=== PATIENT | female | born 1980 | race Caucasian/White ===

== ENCOUNTER 2019-01-06 19:20 | Emergency (ER) | payer BC, SELFPAY ==
[2019-01-06 19:22] VITALS: BP 159/97; PULSE 95; RESP 17; TEMP 37; O2SAT 94; BMI 47.2
--- NOTE | 2019-01-06 20:18 | ED.DCSUM_ITS ---
- ER Visit Summary Date of Service: 01/06/19 Chief Complaint: Right leg pain History of Present Illness: The patient is a 38 F who presents with right leg pain. The pain has been going on for over a month. It seems to be getting worse and she has noted some swelling and redness as well as varicose veins. She was concerned for blood clot. She has no history of DVT or PE. No other associated symptoms. Physical Examination: Afebrile and vital signs unremarkable. Right leg shows erythema and very mild edema just proximal to the knee over the medial thigh. Knee is unremarkable with good range of motion and no laxity. She is neurovascular intact distally. Test Results: Duplex ultrasound pending. Emergency Department Course and Treatment: Ultrasound is negative. Patient may take anti-inflammatories for pain and swelling. Follow-up with primary care for recheck. Return for any new or worsening issues. Treatment Plan: As above Disposition: Discharge Impression: 1. Right leg pain This note was generated with Spiration dictation software. It may contain incorrect words, spelling, and punctuation that were not noted in review of the chart prior to signing ED Disposition - Plan for ED Patient: Referrals: Care Physician,No Primary [NON-STAFF] -
--- NOTE | 2019-01-06 20:20 | US_ITS ---
STUDY: VENOUS DOPPLER ULTRASOUND - RIGHT LOWER EXTREMITY REASON FOR EXAM: Female, 38 years old. Redness and pain within the right knee for one month. TECHNIQUE: Ultrasound evaluation of the deep vein system to include greenberg-scale imaging and compression was performed. Greenberg-scale imaging and Doppler sonographic evaluation, including duplex spectral analysis and qualitative color flow sonography, was performed. COMPARISON: None. FINDINGS: Common Femoral Vein: Normal compression, spontaneity and augmentation. Normal color Doppler. Common Femoral Vein/Greater Saphenous Junction: There is demonstrated compression without internal echoes. Femoral Proximal: There is demonstrated compression without internal echoes. Femoral Middle: Normal compression, spontaneity and augmentation. Normal color Doppler. Femoral Distal: There is demonstrated compression without internal echoes. Popliteal Vein: Normal compression, spontaneity and augmentation. Normal color Doppler. Posterior Tibial Vein: There is demonstrated compression without internal echoes. Peroneal Vein: There is demonstrated compression without internal echoes. US/Venous Duplex Imag/Limited/Uni IMPRESSION: No evidence of deep venous thrombosis on examination. Electronically Signed: Carlos Gautam DO at 21:30 EDT , Service support ,
--- NOTE | 2019-01-06 22:06 | ED.DEP ---
ED Disposition - Plan for ED Patient: Instructions: ED Contusion Soft Tissue Referrals: Care Physician,No Primary [NON-STAFF] -
[2019-01-06 22:13] VITALS: BP 144/76; PULSE 76; RESP 18; O2SAT 100
== END 2019-01-06 22:14 | disposition home or self-care (01) ==
LOC: ED 20:25
PROVIDERS: Emergency Provider Emergency Medicine; Family Provider Physician Assistant; PCP Physician Assistant
DX: M79.661 Pain in right lower leg (principal); M79.89 Other specified soft tissue disorders
CPT/HCPCS: 93971; 99282

== ENCOUNTER 2019-11-30 14:54 | Emergency (ER) | payer BC, SELFPAY ==
[2019-11-30 14:59] VITALS: BP 116/75; PULSE 119; RESP 20; TEMP 36.6; O2SAT 99; BMI 45.8
--- NOTE | 2019-11-30 15:09 | EKG12_ITS ---
Test Reason : CP SOB Blood Pressure : / mmHG Vent. Rate : 106 BPM Atrial Rate : 106 BPM P-R Int : 164 ms QRS Dur : 132 ms QT Int : 376 ms P-R-T Axes : 042 023 188 degrees QTc Int : 499 ms Sinus tachycardia with Premature atrial complexes Left bundle branch block Abnormal ECG Confirmed by DAGO ZHOU, SHANNON ([id number]), editor producer VICK STOCKTON ([id number]) on 12/05/2019 8:44:07 AM Referred By: JERMAINE Confirmed By:WON LOZA MD
--- NOTE | 2019-11-30 15:09 | ED.VIS.GEN ---
History of Present Illness Chief Complaint: Palpitations Informant: Patient Onset: Hours - several hrs ago Timing: Intermittent, Lasts - 1 hr Quality: skipping HB Location: chest Current Severity: gone Maximum Severity: Moderate Worsened by: nothing Relieved by: nothing in particular Associated Symptoms: lightheadedness w/o syncope. no cp or sob or LE edema. Narrative: Patient with a history of hypertrophic obstructive cardiomyopathy just had a septoplasty and cardiac ablation at [facility] 9 days ago. She had episodes of atrial fibrillation while she was an inpatient. For 7 days after being discharged, she is on amiodarone 200 mg twice daily, she is still taking that and has not missed any doses, in addition to aspirin daily. She felt like she went into A. fib today, but it is feeling better now. She has had no other illnesses since her surgery. Denies any shortness of breath or chest pain. No fevers or cough. Quantitative Research Analyst is at [facility] in [place]. She states that she has a follow-up appointment scheduled for tomorrow, she states that the plan is to start her on Eliquis after she finishes the amiodarone. She is not anticoagulated now. - Past Medical History (1) HOCM (hypertrophic obstructive cardiomyopathy) Status: Chronic Past Medical History - Allergies and Home Meds Allergies/Adverse Reactions: Allergies No Known Allergies Allergy (Verified 11/30/19 15:03) Primary Care Physician: Quantitative Research Analyst, your [Other] - Keep Jah appointment Kylah Palma PA [Primary Care Provider] - Surgical History: - - cardiac - septoplasty, ablation, something clamped off Smoking Status: Never smoker Drugs: None Review of Systems General: Denies: Chills, Fever, Sweats Eyes: Denies: Visual changes - bilaterally, Diplopia ENT: Denies: Rhinorrhea, Sore throat Cardiovascular: Reports: Palpitations. Denies: Chest pain Respiratory: Denies: Dyspnea, Cough, Dyspnea on exertion Gastrointestinal: Denies: Abdominal pain, Nausea, Vomiting, Diarrhea, Melena, Hematochezia Genitourinary: Denies: Dysuria, Hematuria, Frequency Musculoskeletal: Denies: Back pain, Extremity Pain Skin: Denies: Rash, Wounds Neurological: Denies: Headache, Weakness, Numbness Physical Exam Vital Signs/Narrative: Vital Signs Temp Pulse Resp BP Pulse Ox 11/30/19 14:59 97.8 F 119 H 20 H 116/75 99 Inital Vital Signs reviewed: Yes General: Well nourished, Well developed, No Acute Distress - well-appearing, conversive Head: Normocephalic, Atraumatic Eyes: Perrl, EOMI ENT: Moist mucous membranes, No rhinorrhea Neck: Supple, Nontender, No JVD Cardiovascular: Regular rate, Regular rhythm - w/ occasional irregularity, No murmurs Respiratory: No distress, CTA bilaterally, Chest nontender - well-healing midline surgical incision w/o discharge, infection, dehiscence Abdomen: Soft, Nontender, Nondistended, Normal bowel sounds Back: Nontender, Normal Inspection Extremities: Nontender, No edema. Negative for: Calf Tenderness Skin: Normal color, No rash Neurological: Alert, Oriented x3, Cranial nerves II-XII grossly intact, Normal Strength, Normal Sensation Psychological: Normal affect, Normal Mood Diagnostic/Tx/Re-eval Impressions Chest X-Ray 11/30/19 15:11 IMPRESSION: Findings compatible with mild congestive heart failure with rfonw-zl-[id number] sized bibasilar pleural effusions. Electronically Signed: Gaston Lee, at 15:41 EST Tel , Service support , 11/30/19 15:11 Chest 1 View (Portable) [RAD] Stat Laboratory Results 11/30/19 11/30/19 15:00 15:00 WBC 13.9 H RBC 4.29 Hgb 12.2 Hct 37.6 MCV 87.6 MCH 28.4 MCHC 32.4 RDW Std Deviation 45.1 H RDW Coeff of Ramesh 14.3 Plt Count 453 H MPV 10.2 Immature Gran % (Auto) 0.600 Neut % (Auto) 76.3 H Lymph % (Auto) 16.1 L [place] % (Auto) 4.8 Eos % (Auto) 1.6 Baso % (Auto) 0.6 Absolute Neuts (auto) 10.6 H Absolute Lymphs (auto) 2.23 Nucleated RBC % 0 Sodium 136 Potassium 4.4 Chloride 103 Carbon Dioxide 28.0 Anion Gap 5 BUN 17 Creatinine 1.22 H Estim Creat Clear Calc 62.45 Est GFR (MDRD) Af Amer 63 Est GFR (MDRD) Non-Af 52 L BUN/Creatinine Ratio 13.9 Glucose 148 H Calcium 9.2 - Rhythm Strip Rhythm Strip: Sinus Rhythm Rate: 105 Ectopy: None - EKG Initial EKG Interpretation: No Acute Injury Pattern, Sinus Tachycardia, LBBB, - - PAC - Medical Decision Making EKG shows sinus rhythm without acute injury, with occasional atrial ectopy. Patient was monitored while in emergency department, she did not go back into atrial fibrillation or have any dysrhythmias. Her work-up shows a mild nonspecific leukocytosis, small bilateral pleural effusions which are likely postoperative, and no other acute abnormalities. Her symptoms gradually improved to resolution. Discussed with cardiothoracic surgery Dr. Yang, who performed her myomectomy and atrial appendage clipping, with [facility]. They confirmed that she can follow-up during her normally scheduled appointment tomorrow and be discharged home at this time. He did look up her records, and was able to see that she was discharged and supposed to be on Eliquis 5 mg twice daily. Patient does not have that medication, so I wrote her a prescription in case she does not have the prescription at home, and she was advised that she can follow-up safely tomorrow with cardiology. ED Disposition - Plan for ED Patient: Disposition: Home or Assisted Living Diagnosis: Paroxysmal atrial fibrillation, HOCM (hypertrophic obstructive cardiomyopathy) Instructions: Atrial Fibrillation, Palpitations Prescriptions: Apixaban [Eliquis] 5 mg PO BID #60 tab Prescription Printed Referrals: Kylah Palma PA [Primary Care Provider] - Quantitative Research Analyst, your [Other] - Keep Jah appointment
--- NOTE | 2019-11-30 15:11 | RAD_ITS ---
EXAM DESCRIPTION: PORTABLE AP CHEST CLINICAL HISTORY: 39 years Female, recent open heart surgery, SOB, palpitations, lightheadedness recent open heart surgery, SOB, palpitations, lightheadedness COMPARISON: Previous chest obtained on 2014 FINDINGS: A battery pack is again noted in place with a small neural stimulatory device noted extending up along the thoracic spine. Sternotomy sutures are also seen. The rest of the thorax is intact. The heart is mildly enlarged and mediastinum appears to be within normal limits. A small right lung base pleural effusion is now identified which previously was not seen. There is blunting of the left lateral costophrenic angle due to a small left lung base pleural effusion and, in addition, there is a retrocardiac density seen posterior to the left heart. This represents probably a left lung base pleural effusion which has definitely increased. Very mild perihilar congestion is identified. RAD/Chest 1 View (Portable) IMPRESSION: Findings compatible with mild congestive heart failure with [id number]-zd-[id number] sized bibasilar pleural effusions. Electronically Signed: Gaston Lee, at 15:41 EST Tel , Service support ,
[2019-11-30 15:38] LABS: Absolute Lymphocyte Count 2.23 X10^3/uL (0.83-4.51); Absolute Neutrophil Count 10.6 X10^3/uL (2.0-7.7); Basophil# 0.09 X10^3/uL; Basophil% 0.6 % (0-1); Eosinophil# 0.22 X10^3/uL; Eosinophils% 1.6 % (0-5); Hematocrit 37.6 % (37-47); Hemoglobin 12.2 g/dL (12.0-15.0); Lymphocyte # 2.23 X10^3/ul (4.0); Lymphocyte % 16.1 % (19-41); Mean Corp Hgb Conc 32.4 g/dL (32-36); Mean Corpuscular Hgb 28.4 pg (27.0-32.0); Mean Corpuscular Volume 87.6 fL (81-99); Mean Platelet Vol. 10.2 fl (6.2-12.0); Monocyte# 0.67 X10^3/uL; Monocyte% 4.8 % (0-10); NRBC Flagged by Analyzer 0 % (0-5); Neutrophil # 10.57 X10^3/uL (2.7-7.7); Neutrophil % 76.3 % (47-70); Platelet Count 453 K/mm3 (150-450); RBC Distribution Width CV 14.3 % (11.6-14.6); RBC Distribution Width SD 45.1 fl (35.1-43.9); Red Blood Count 4.29 M/mm3 (4.2-5.4); White Blood Count 13.9 K/mm3 (4.4-11.0)
[2019-11-30 15:48] LABS: Anion Gap 5 (5-15); BUN 17 mg/dL (7-18); BUN/Creat Ratio 13.9 RATIO (10-20); Calcium,Total 9.2 mg/dL (8.5-10.1); Chloride 103 mmol/L (98-107); Creatinine, Serum 1.22 mg/dL (0.55-1.02); EST Glomerular Filtration Rate 52 mL/min (>60); Est Glom Filt Rate - Afr Amer 63 mL/min (>60); Estimated Creatinine Clearance 62.45 ml/min; Glucose 148 mg/dL (74-106); Potassium 4.4 mmol/L (3.5-5.1); Sodium Level 136 mmol/L (136-145)
[2019-11-30 15:55] VITALS: BP 118/76; PULSE 89; RESP 18; O2SAT 96
--- NOTE | 2019-11-30 16:17 | NURSING ---
PAGED DR BERNABE [phone]
--- NOTE | 2019-11-30 16:52 | NURSING ---
CALLED DR MICHAEL. TALKED TO RHONDA. DR TOBIN WITH A PATIENT. SHE WILL SEE HIM AND HAVE HIM CALL US OR GET WATCHGUARD
[2019-11-30 17:00] VITALS: BP 103/70; PULSE 89; RESP 18; O2SAT 96
--- NOTE | 2019-11-30 17:09 | NURSING ---
DR SRINIVASA CHIN
== END 2019-11-30 17:28 | disposition home or self-care (01) ==
PROVIDERS: Emergency Provider Emergency Medicine; PCP Physician Assistant
DX: I48.0 Paroxysmal atrial fibrillation (principal); I42.1 Obstructive hypertrophic cardiomyopathy; Z79.899 Other long term (current) drug therapy; J90 Pleural effusion, not elsewhere classified
CPT/HCPCS: 71045; 80048; 85025; 93005; 99285

== ENCOUNTER 2019-12-06 03:48 | Emergency (ER) | payer BC, SELFPAY ==
[2019-12-06] VITALS (7 sets, daily range): BP systolic 109–143; BP diastolic 75–127; PULSE 85–155; RESP 16–22; TEMP 36.4; O2SAT 2–98; BMI 46.3
--- NOTE | 2019-12-06 03:50 | EKG12_ITS ---
Test Reason : DYSRHYTHMIA Blood Pressure : / mmHG Vent. Rate : 100 BPM Atrial Rate : 100 BPM P-R Int : 166 ms QRS Dur : 126 ms QT Int : 372 ms P-R-T Axes : 056 025 170 degrees QTc Int : 479 ms Normal sinus rhythm Left bundle branch block Abnormal ECG Confirmed by DANNA ESTRADA ([id number]), editor & co founder SHELLI SLADE ([id number]) on 12/07/2019 2:32:04 PM Referred By: Confirmed By:DANNA ESTRADA
--- NOTE | 2019-12-06 03:50 | RAD_ITS ---
HISTORY: C/O PALPITATIONS AND SOB DEFIBULATOR WENT OFF JUST PRIOR TO EXAM RECENT OPEN HEART SURGERY (11/21) PER PATIENT, MUSCLE REMOVED AND A VALVE REPLACED EXAMINATION/TECHNIQUE: XR Chest 1 View: Portable COMPARISON: 11/30/2019 FINDINGS: Cardiac telemetry leads in place. Shallow inspiration. Normal heart size. Previously seen small bilateral pleural effusions and bibasilar atelectatic change are improved. No new infiltrate and no overt vascular congestion. Median sternotomy with left atri-clip in place. Left chest wall pacemaker device with stable position of the midline electrode which overlies the heart. RAD/Chest 1 View (Portable) IMPRESSION: Recent CABG with improving small bilateral pleural effusions and improving bibasilar atelectatic changes. at 0422 Reported and signed by: Aramis Patel MD Electronically Signed: Aramis Patel, at 4:21 EST Tel , Service support ,
[2019-12-06 04:11] LABS: Absolute Lymphocyte Count 3.69 X10^3/uL (0.83-4.51); Absolute Neutrophil Count 10.3 X10^3/uL (2.0-7.7); Basophil# 0.13 X10^3/uL; Basophil% 0.8 % (0-1); Eosinophil# 0.51 X10^3/uL; Eosinophils% 3.3 % (0-5); Hematocrit 33.7 % (37-47); International Normalized Ratio 1.3; Lymphocyte # 3.69 X10^3/ul (4.0); Lymphocyte % 23.5 % (19-41); Mean Corp Hgb Conc 32.6 g/dL (32-36); Mean Corpuscular Hgb 28.9 pg (27.0-32.0); Mean Corpuscular Volume 88.5 fL (81-99); Mean Platelet Vol. 9.9 fl (6.2-12.0); Monocyte# 0.98 X10^3/uL; Monocyte% 6.3 % (0-10); NRBC Flagged by Analyzer 0 % (0-5); Neutrophil # 10.31 X10^3/uL (2.7-7.7); Neutrophil % 65.7 % (47-70); Platelet Count 489 K/mm3 (150-450); Prothrombin Time (Protime)PT. 15.8 SECONDS (11.7-14.9); RBC Distribution Width CV 14.2 % (11.6-14.6); RBC Distribution Width SD 45.3 fl (35.1-43.9); Red Blood Count 3.81 M/mm3 (4.2-5.4); White Blood Count 15.7 K/mm3 (4.4-11.0)
[2019-12-06 04:12] LABS: Partial Thromboplast Time 31.9 Seconds (24.1-36.2)
--- NOTE | 2019-12-06 04:12 | ED.RN ---
DR. TEIXEIRA WAS ASSESSING THE PT, AND EKG WAS BEING OBTAINED THE PT'S HEART RATE WAS 180 BPM AND THE PT SCREAMED THAT SHE WAS SHOCKED BY HER ICD. THE PT'S HEART RATE THEN DROPPED DOWN TO 94. PT IS RESTING IN A POSITION OF COMFORT AT THIS TIME AND HAS NO FURTHER NEEDS.
[2019-12-06 04:19] LABS: Anion Gap 10 (5-15); BUN 17 mg/dL (7-18); BUN/Creat Ratio 15.6 RATIO (10-20); Calcium,Total 8.7 mg/dL (8.5-10.1); Chloride 103 mmol/L (98-107); Creatinine, Serum 1.09 mg/dL (0.55-1.02); EST Glomerular Filtration Rate 59 mL/min (>60); Est Glom Filt Rate - Afr Amer 72 mL/min (>60); Glucose 212 mg/dL (74-106); Potassium 4.2 mmol/L (3.5-5.1); Sodium Level 137 mmol/L (136-145)
[2019-12-06 04:32] LABS: Internal QC Validated? YES +Cl - CLEAR BKGD; Pregnancy, Serum, hCG Quali. NEGATIVE Negative
--- NOTE | 2019-12-06 05:15 | ED.DCSUM_ITS ---
- ER Visit Summary Date of Service: 12/06/19 Chief Complaint: Palpitations History of Present Illness: The patient is a 39 F presenting with palpitations, dizziness, shortness of breath. Patient states this woke her from sleep. She has a history of A. fib, WPW, hypertrophic cardiomyopathy, recent cardiac surgery. On November 21, 2019 she had a septal myectomy, cardiac ablation, mitral valve repair. She states that she has had intermittent A. fib. She is on amiodarone x14 days after the surgery. She is also on Eliquis. She denies chest pain. Denies fever. Denies other complaints. Physical Examination: Vitals are stable. Heart rate 155. Patient is afebrile. Alert no acute distress. HEENT exam is unremarkable. Neck is supple. Lungs are clear and equal bilaterally. Chest wall incision clean dry and intact Heart is irregularly irregular and tachycardic Abdomen is soft nontender nondistended. Extremities are unremarkable. Skin is warm and dry. No focal neurologic deficit. Remainder of exam is unremarkable. Emergency Department Course and Treatment: On arrival to the ED, EKG is obtained. While EKG is in progress, her internal defibrillator fired. Her heart rate was in the 180s at the time. She converted to normal sinus rhythm. Her defibrillator has never fired in the past. EKG is normal sinus rhythm with a rate of 100 with left bundle branch block, similar to previous. CBC shows white count 15.7, hemoglobin 11.0, platelet 489. Chemistries show glucose 212, creatinine 1.09. INR 1.3. Troponin 0.265. She was started on amiodarone drip. Discussed with [facility] and patient will be transferred. Disposition: Transfer [facility] Impression: A. fib with RVR, status post septal myectomy This note was generated with Parallel Universe dictation software. It may contain incorrect words, spelling, and punctuation that were not noted in review of the chart prior to signing ED Disposition - Plan for ED Patient: Referrals: Kylah Palma PA [Primary Care Provider] -
[2019-12-06] MEDS: Amiodarone 360 MG in Dextrose 5% Viaflo Bag 192.8 ML 33.3 MG CONT INF (05:17)
== END 2019-12-06 07:50 | disposition short-term general hospital (02) ==
LOC: ED 04:15
PROVIDERS: Emergency Provider Emergency Medicine; PCP Physician Assistant
DX: I48.91 Unspecified atrial fibrillation (principal); I42.2 Other hypertrophic cardiomyopathy; I44.7 Left bundle-branch block, unspecified; I45.6 Pre-excitation syndrome; Z79.01 Long term (current) use of 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; Z95.1 Presence of aortocoronary bypass graft
CPT/HCPCS: 71045; 80048; 84484; 84703; 85025; 85610; 85730; 93005; 99285; J7030; A4216; J0153

== ENCOUNTER 2019-12-16 15:31 | Emergency (ER) | payer BC, SELFPAY ==
[2019-12-06 03:49] VITALS: BMI 46.3
[2019-12-16 15:32] VITALS: BP 143/90; PULSE 94; RESP 17; TEMP 36.6; O2SAT 98; BMI 46.5
--- NOTE | 2019-12-16 15:42 | EKG12_ITS ---
Test Reason : Blood Pressure : / mmHG Vent. Rate : 086 BPM Atrial Rate : 086 BPM P-R Int : 174 ms QRS Dur : 132 ms QT Int : 420 ms P-R-T Axes : 036 008 174 degrees QTc Int : 502 ms Normal sinus rhythm Left bundle branch block Abnormal ECG Confirmed by DAGO ZHOU, SHANNON ([id number]), dictionary editor SHELLI SLADE ([id number]) on 12/19/2019 1:47:32 PM Referred By: ANTONI Confirmed By:WON LOZA MD
--- NOTE | 2019-12-16 15:43 | ED.VIS.GEN ---
History of Present Illness Chief Complaint: Chest Other Detail of Chief Complaint: ICD discharged/shocked the patient Informant: Patient, Family Onset: Days - Approximately 2 hours prior to arrival Context: Sudden Onset Timing: Intermittent Quality: Defibrillator discharged Location: Chest Current Severity: - - Not applicable Maximum Severity: - - None applicable Worsened by: Unknown Associated Symptoms: Patient states she had no symptoms Narrative: Patient is a 39-year-old woman with history of paroxysmal H fibrillation on Eliquis, WPW status post ablation, hypertrophic cardiomyopathy status post surgery to trim septum and clamping of appendix. She presents because approximately 2 hours prior to arrival her defibrillator fired. She states she was sitting as a passenger in the car. She had no symptoms. She presently has no symptoms. She contacted her refrigerator cabinetmaker and EP refrigerator cabinetmaker at the [facility] who recommended she go to the nearest hospital and have the ICD interrogated. She states she has a [employer] device. The device is programmed to discharge if heart rate is greater than 220. She was seen last week and discharged at a rate of 180. Was determined that the defibrillator was double counting her heart rate. She was placed on amiodarone during that hospitalization. She is presently on Eliquis, Toprol and amiodarone. Prior similar symptoms: Yes Recent Illness/Hospitalization: Yes - Past Medical History (1) WPW (Oznzj-Xwhqyvhtl-Gayrh syndrome) Status: Chronic (2) Paroxysmal atrial fibrillation Status: Chronic Past Medical History - Allergies and Home Meds Allergies/Adverse Reactions: Allergies No Known Allergies Allergy (Verified 12/16/19 15:32) Primary Care Physician: Kylah Palma PA [Primary Care Provider] - Prior records reviewed: Yes Surgical History: - - cardiac - septoplasty, ablation, something clamped off Lives: With Family Smoking Status: Never smoker Alcohol: None Drugs: None Review of Systems General: Denies: Chills, Fever, Sweats Eyes: Denies: Visual changes - bilaterally, Blurred Vision - bilaterally, Diplopia ENT: Denies: Rhinorrhea, Sore throat Cardiovascular: Denies: Chest pain, Palpitations, Heart racing Respiratory: Denies: Dyspnea, Cough, Dyspnea on exertion Gastrointestinal: Denies: Abdominal pain, Nausea, Vomiting, Diarrhea, Melena, Hematochezia Genitourinary: Denies: Dysuria, Hematuria, Frequency Musculoskeletal: Denies: Myalgias, Arthralgias, Neck pain, Back pain, Swelling, Extremity Pain Skin: Denies: Rash, Wounds Neurological: Denies: Headache, Weakness, Numbness Hematologic: Reports: Easy bruising. Denies: Easy bleeding Physical Exam Vital Signs/Narrative: Vital Signs Temp Pulse Resp BP Pulse Ox 12/16/19 15:32 97.9 F 94 17 143/90 H 98 Inital Vital Signs reviewed: Yes General: Well nourished, Well developed, Obese, No Acute Distress Head: Normocephalic, Atraumatic Eyes: Perrl, EOMI. Negative for: Pale conjunctiva, Scleral icterus ENT: Moist mucous membranes, No rhinorrhea Neck: Supple, Nontender, No lymphadenopathy, No JVD Cardiovascular: Regular rate, Regular rhythm, No murmurs, Normal S1, Normal S2 Respiratory: No distress, CTA bilaterally, Chest nontender Abdomen: Soft, Nontender, Nondistended, Normal bowel sounds Rectal: Deferred Back: Nontender, Normal Inspection Extremities: Nontender, No edema Skin: Normal color, No rash Neurological: Alert, Oriented x3, Cranial nerves II-XII grossly intact, Normal Strength, Normal Sensation Psychological: Normal affect, Normal Mood Diagnostic/Tx/Re-eval Laboratory Results 12/16/19 15:55 Sodium 138 Potassium 4.1 Chloride 105 Carbon Dioxide 27.0 Anion Gap 6 BUN 11 Creatinine 0.94 Estim Creat Clear Calc 81.06 Est GFR (MDRD) Af Amer 85 Est GFR (MDRD) Non-Af 70 BUN/Creatinine Ratio 11.7 Glucose 101 Calcium 9.1 The ICD was interrogated. It improperly interpreted her rhythm to have a rate of 240 when it was 120. This was the same problem she had last week. She was started on amiodarone. She is present on 200 mg of amiodarone twice daily and 50 mg metoprolol twice daily. - EKG Initial EKG Interpretation: Sinus Rhythm - Sinus rhythm with a ventricular 86. MT interval 174 ms. QS duration 132 ms with the configuration of a left bundle branch block. QT interval is 422 ms. The EKG is unchanged from November 30, 2019. - Medical Decision Making Patient was placed on monitor. EKG was obtained to determine rhythm. Order was placed to interrogate the ICD. Base metabolic panel was obtained to assess electrolytes. After reviewing EKG and report why ICD discharge will contact her EP refrigerator cabinetmaker. ED Disposition - Plan for ED Patient: Disposition: Home or Assisted Living Diagnosis: Paroxysmal atrial fibrillation with RVR, Inappropriate discharge of implantable cardioverter-defibrillator (ICD) Instructions: Atrial Fibrillation, Implantable Cardioverter Defibrillator (ICD) Referrals: Kylah Palma PA [Primary Care Provider] - Additional Instructions: 1. Contact your EP refrigerator cabinetmaker to have your AICD upgraded. Recommendation is to increase metoprolol to 1.5 tablets at bedtime.
[2019-12-16 16:15] LABS: Anion Gap 6 (5-15); BUN 11 mg/dL (7-18); BUN/Creat Ratio 11.7 RATIO (10-20); Calcium,Total 9.1 mg/dL (8.5-10.1); Chloride 105 mmol/L (98-107); Creatinine, Serum 0.94 mg/dL (0.55-1.02); EST Glomerular Filtration Rate 70 mL/min (>60); Est Glom Filt Rate - Afr Amer 85 mL/min (>60); Estimated Creatinine Clearance 81.06 ml/min; Glucose 101 mg/dL (74-106); Potassium 4.1 mmol/L (3.5-5.1); Sodium Level 138 mmol/L (136-145)
[2019-12-16 17:31] VITALS: BP 130/74; PULSE 78; RESP 22; O2SAT 97
== END 2019-12-16 18:08 | disposition home or self-care (01) ==
PROVIDERS: Emergency Provider Emergency Medicine; PCP Physician Assistant
DX: I48.0 Paroxysmal atrial fibrillation (principal); I44.7 Left bundle-branch block, unspecified; E66.9 Obesity, unspecified; I45.6 Pre-excitation syndrome; Z79.01 Long term (current) use of 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; I42.2 Other hypertrophic cardiomyopathy
CPT/HCPCS: 80048; 93005; 99284; A4216

== ENCOUNTER 2020-08-02 15:53 | Emergency (ER) | payer BC, SELFPAY ==
[2020-08-02 15:54] VITALS: BP 144/100; PULSE 120; RESP 20; TEMP 36.3; O2SAT 98; BMI 49.8
[2020-08-02 16:08] VITALS: BP 144/100; PULSE 120; RESP 20; TEMP 36.3; O2SAT 98
--- NOTE | 2020-08-02 16:20 | EKG12_ITS ---
Test Reason : SOB Blood Pressure : / mmHG Vent. Rate : 134 BPM Atrial Rate : 147 BPM P-R Int : 000 ms QRS Dur : 124 ms QT Int : 334 ms P-R-T Axes : 000 -04 151 degrees QTc Int : 498 ms Atrial fibrillation with rapid ventricular response Left bundle branch block Abnormal ECG Confirmed by CHRISTIAN ZHOU, JASON ([id number]), index editor VICK STOCKTON ([id number]) on 08/03/2020 9:33:41 AM Referred By: DONALD Confirmed By:JASON GONZALES MD
--- NOTE | 2020-08-02 16:27 | ED.DCSUM_ITS ---
- ER Visit Summary Date of Service: 08/02/20 Chief Complaint: Shortness of breath History of Present Illness: The patient is a 40 F who presents with shortness of breath that began yesterday. Patient states she had an episode where she felt short of breath yesterday. Patient states she started feeling better. Patient states she had another episode today while she was at work. Patient states she felt lightheaded. Patient denies any syncopal episodes. Patient states nothing makes it better or worse. Patient admits to some sweats but denies any fevers or chills. Patient admits to some palpitations where she can feel her heart racing at times. Physical Examination: Vital signs are stable except for tachycardia of 120. Patient is afebrile. Patient is in no acute distress. Oral mucosa is pink and moist. Neck is supple. Trachea is midline. There is no JVD noted. Heart was irregularly irregular and tachycardic. Lungs are clear and equal bilaterally. Abdomen is soft. Bowel sounds are normal. There is no tenderness. There is no rebound or guarding noted. Skin is warm dry. Cranial nerves II through XII are intact. There are no focal motor or sensory deficits noted. Extremities are intact. There is no calf tenderness or edema. Test Results: EKG showed atrial fibrillation with a rate of 134. There is a left bundle branch block pattern noted. There are no acute ST or T wave changes noted. When compared to previous EKG the atrial fibrillation is new but the left bundle branch block is unchanged. CBC, comprehensive metabolic profile were obtained and were within normal limits. Troponin was normal. Urinalysis shows leukocyte esterase of 500 with 10-25 white blood cells. Chest x-ray was obtained. There is no acute cardiopulmonary process. This was interpreted by the radiologist and reviewed by myself. Emergency Department Course and Treatment: Patient was given a dose of Cardizem IV here. Patient converted to a normal sinus rhythm. Patient feels better on reevaluation. Patient was advised to follow-up with her surgical garment assembly supervisor in 5 to 7 days. Patient was given a dose of Keflex here and a prescription for Keflex. Patient understood and was agreeable with the plan. All questions were answered. Disposition: Discharge home Impression: 1. Paroxysmal atrial fibrillation 2. Urinary tract infection This note was generated with [employer].tvation software. It may contain incorrect words, spelling, and punctuation that were not noted in review of the chart prior to signing ED Disposition - Plan for ED Patient: Disposition: Home or Assisted Living Diagnosis: Paroxysmal atrial fibrillation with rapid ventricular response, Urinary tract infection Instructions: ED CYSTITIS Female Adult, ED AFIB Prescriptions: Cephalexin [Keflex] 500 mg PO Q6 #12 cap Transmission Status: Pending to [facility][phone] Referrals: Kylah Palma PA [Primary Care Provider] - 5-7 Days Additional Instructions: Follow-up with your surgical garment assembly supervisor in 5 to 7 days as well.
[2020-08-02 16:41] VITALS: O2SAT 97
[2020-08-02] MEDS: dilTIAZem 25 MG/5 ML Vial IV BOLUS (16:58)
[2020-08-02 17:04] LABS: Bacteria 0 SEEN /hpf (None Seen); Mucous, Urine 0 SEEN /hpf (<or=2+)
--- NOTE | 2020-08-02 17:10 | RAD_ITS ---
STUDY: X-RAY CHEST REASON FOR EXAM: Female, 40 years old. shortness of breath and fatigue x 2 days TECHNIQUE: Single frontal view of the chest. COMPARISON: 12/06/2019 FINDINGS: Median sternotomy wires. Stable electronic device on the left. Atrial clip. The lungs are clear and expanded. There is no demonstrated pleural abnormality. Stable cardiomediastinal silhouette. Normal mediastinum and eldon. Normal visualized pulmonary arteries. Normal visualized aortic arch and descending thoracic aorta. Normal visualized thoracic spine. Normal visualized ribs, clavicles, and shoulders. There is no demonstrated abnormality of the visualized soft tissue structures of the upper abdomen. RAD/Chest 1 View (Portable) IMPRESSION: No acute pulmonary findings. Electronically Signed: Jasiel Sweeney MD at 17:36 EDT Tel , Service support ,
[2020-08-02 17:18] LABS: Absolute Neutrophil Count 8.8 X10^3/uL (2.0-7.7); Basophil# 0.09 X10^3/uL; Basophil% 0.7 % (0-1); Eosinophil# 0.16 X10^3/uL; Eosinophils% 1.3 % (0-5); Hematocrit 42.2 % (37-47); Hemoglobin 13.6 g/dL (12.0-15.0); Lymphocyte % 21.3 % (19-41); Mean Corp Hgb Conc 32.2 g/dL (32-36); Mean Corpuscular Hgb 27.6 pg (27.0-32.0); Mean Corpuscular Volume 85.6 fL (81-99); Mean Platelet Vol. 11.1 fl (6.2-12.0); Monocyte# 0.87 X10^3/uL; Monocyte% 6.9 % (0-10); NRBC Flagged by Analyzer 0 % (0-5); Neutrophil # 8.84 X10^3/uL (2.7-7.7); Neutrophil % 69.6 % (47-70); Platelet Count 395 K/mm3 (150-450); RBC Distribution Width SD 43.4 fl (35.1-43.9); Red Blood Count 4.93 M/mm3 (4.2-5.4); White Blood Count 12.7 K/mm3 (4.4-11.0)
[2020-08-02 17:23] LABS: ALB/GLOB Ratio 0.9 RATIO (0.9-2.4); AST(SGOT) 24 U/L (15-37); Alanine Aminotransfer ALT/SGPT 34 U/L (13-56); Albumin, Serum 3.5 g/dL (3.2-5.0); Alkaline Phosphatase 103 U/L (45-117); Anion Gap 9 (5-15); BUN 18 mg/dL (7-18); BUN/Creat Ratio 20.2 RATIO (10-20); Calcium,Total 8.8 mg/dL (8.5-10.1); Chloride 106 mmol/L (98-107); Creatinine, Serum 0.89 mg/dL (0.55-1.02); EST Glomerular Filtration Rate 75 mL/min (>60); Est Glom Filt Rate - Afr Amer 90 mL/min (>60); Estimated Creatinine Clearance 84.76 ml/min; Glucose 105 mg/dL (74-106); Potassium 3.9 mmol/L (3.5-5.1); Protein, Total 7.5 g/dL (6.4-8.2); Sodium Level 138 mmol/L (136-145)
[2020-08-02 17:27] LABS: Color, Urine Yellow (Yellow); Glucose, Dipstick Normal (Normal); Ketone-Dipstick 15 mg/dl (Negative); Leukocyte Esterase-Dipstick 500 /ul (Negative); Nitrite-Dipstick Negative (Negative); Occult Blood-Urine 10 /ul (Negative); Protein-Dipstick 30 mg/dl (Negative); Urine Bilirubin Dipstick Negative (Negative); Urine Clarity Sl. Cloudy (Clear); Urine Urobilinogen Normal (Normal)
[2020-08-02 17:28] LABS: Calcium Oxalate Crystals Ur 2+ /hpf (<or=2+); Red Blood Cells-Urine 0-5 SEEN /hpf (0-5); Squamous Epithelial Cells - UA 0-5 SEEN /hpf (5-10); White Blood Cells 10-25 SEEN /hpf (0-5)
[2020-08-02 18:05] VITALS: BP 133/87; PULSE 83; RESP 19; TEMP 36.6; O2SAT 98
[2020-08-02] MEDS: Cephalexin 500 MG Capsule PO (18:19)
== END 2020-08-02 18:24 | disposition home or self-care (01) ==
PROVIDERS: Emergency Provider Emergency Medicine; PCP Physician Assistant
DX: I48.0 Paroxysmal atrial fibrillation (principal); N39.0 Urinary tract infection, site not specified; I44.7 Left bundle-branch block, unspecified
CPT/HCPCS: 71045; 80053; 81001; 84484; 85025; 93005; 99283; A4216

== ENCOUNTER 2020-08-03 09:23 | Emergency (ER) | payer BC, SELFPAY ==
[2020-08-02 15:54] VITALS: BMI 49.8
[2020-08-03] VITALS (10 sets, daily range): BP systolic 111–158; BP diastolic 60–109; PULSE 51–155; RESP 7–22; TEMP 36.3; O2SAT 92–100; BMI 43.0
--- NOTE | 2020-08-03 09:33 | EKG12_ITS ---
Test Reason : Blood Pressure : / mmHG Vent. Rate : 154 BPM Atrial Rate : 159 BPM P-R Int : 000 ms QRS Dur : 122 ms QT Int : 326 ms P-R-T Axes : 000 -11 157 degrees QTc Int : 522 ms Atrial fibrillation with rapid ventricular response Left bundle branch block Abnormal ECG Confirmed by CHRISTIAN ZHOU, JASON ([id number]), news video editor VICK STOCKTON ([id number]) on 08/07/2020 11:10:43 AM Referred By: ANTONI Confirmed By:JASON GONZALES MD
--- NOTE | 2020-08-03 09:35 | EKG12_ITS ---
Test Reason : Blood Pressure : / mmHG Vent. Rate : 084 BPM Atrial Rate : 084 BPM P-R Int : 164 ms QRS Dur : 134 ms QT Int : 432 ms P-R-T Axes : 032 -01 107 degrees QTc Int : 510 ms Normal sinus rhythm Left bundle branch block Abnormal ECG Confirmed by CHRISTIAN ZHOU, JASON ([id number]), school photograph editor VICK STOCKTON ([id number]) on 08/07/2020 11:10:54 AM Referred By: ANTONI Confirmed By:JASON GONZALES MD
--- NOTE | 2020-08-03 09:39 | ED.DCSUM_ITS ---
History of Present Illness <Dutch Valverde - Last Filed: 08/03/20 12:53> Informant: Patient Onset: Days Timing: Intermittent Narrative: 40-year-old female with past medical history of A. fib s/p two ablations, ICD presents with complaints of palpitations and dyspnea on exertion that began 2 days ago. She was seen here last night for A. fib RVR and was treated with IV medications and discharged home. She states this morning when she woke up she again had palpitations and dyspnea on exertion when getting ready for work. No chest pain. No syncopal episodes. Nothing makes it better or worse. Denies fevers, chills, or cough. She takes metoprolol 50 mg BID and Eliquis and has been compliant with both. <Janelle Mcintosh - Last Filed: 08/03/20 13:30> Chief Complaint: Palpitations Past Medical History <Dutch Valverde - Last Filed: 08/03/20 12:53> Past Medical History: - - A fib, ICD Surgical History: - - cardiac - septoplasty, ablation, something clamped off Smoking Status: Never smoker <Janelle Mcintosh - Last Filed: 08/03/20 13:30> - Allergies and Home Meds Allergies/Adverse Reactions: Allergies No Known Allergies Allergy (Verified 08/03/20 09:23) Primary Care Physician: Kylah Palma, PA [Primary Care Provider] - Review of Systems General: Denies: Chills, Fever, Sweats Eyes: Denies: Visual changes - bilaterally, Diplopia ENT: Denies: Rhinorrhea, Sore throat Cardiovascular: Reports: Palpitations, Heart racing. Denies: Chest pain Respiratory: Reports: Dyspnea on exertion. Denies: Dyspnea, Cough, Orthopnea Gastrointestinal: Denies: Abdominal pain, Nausea, Vomiting, Diarrhea, Melena, Hematochezia Genitourinary: Denies: Dysuria, Hematuria, Frequency Musculoskeletal: Denies: Back pain, Extremity Pain Skin: Denies: Rash, Wounds Neurological: Denies: Headache, Weakness, Numbness <Janelle Mcintosh - Last Filed: 08/03/20 13:30> Physical Exam Vital Signs/Narrative: Vital Signs Temp Pulse Resp BP Pulse Ox 08/03/20 09:24 97.3 F L 51 L 17 117/91 H 100 <AbramDutch - Last Filed: 08/03/20 12:53> Vital Signs/Narrative: Vital Signs Temp Pulse Resp BP Pulse Ox 08/03/20 09:24 97.3 F L 51 L 17 117/91 H 100 Inital Vital Signs reviewed: Yes General: Well nourished, Well developed, No Acute Distress Head: Normocephalic, Atraumatic Eyes: Perrl, EOMI ENT: Moist mucous membranes, No rhinorrhea Neck: Supple, Nontender Cardiovascular: No murmurs, Irregular, Tachycardia Respiratory: No distress, CTA bilaterally, Chest nontender Abdomen: Soft, Nontender, Nondistended Back: Normal Inspection Extremities: No edema Skin: Normal color, No rash Neurological: Alert, Oriented x3, Cranial nerves II-XII grossly intact, Normal Strength, Normal Sensation Psychological: Normal affect, Normal Mood <Janelle Mcintosh - Last Filed: 08/03/20 13:30> Diagnostic/Tx/Re-eval - Medical Decision Making Independent history physical was performed by me. Records from last evening were reviewed. Exam is remarkable for rapid heart rate. Monitor at 151 would indicate atrial fibrillation. This may also represent Yaneth's phenomenon. <AbramDutch - Last Filed: 08/03/20 12:53> - Rhythm Strip Rhythm Strip: A-fib Rate: 153 - Medical Decision Making Patient appears well and nontoxic. She is sitting comfortably in no respiratory distress. Vital signs show tachycardia in 160s, otherwise normal. EKG showed A. fib with a rate of 154. There is left bundle branch block pattern which is unchanged from previous EKGs. No acute ST or T wave changes. Labs are within n ormal limits except for mildly elevated TSH. Troponin negative. Chest x-ray yesterday was normal and I do not feel that repeating this will change manager. Patient was put under procedural sedation and was successfully cardioverted to normal sinus rhythm. She was monitored and maintained in the 70s?80s for over 30 minutes. Discussed her thyroid labs and she states they have been abnormal before and she will have her PCP recheck this. She will follow-up with her account development specialist this week. She was discharged home in stable condition. <Janelle Mcintosh - Last Filed: 08/03/20 13:30> Procedures Procedure(s): 1. Deep procedural sedation using propofol. 2. Cardioversion. Patient states she had a sip of water take her metoprolol and Eliquis this morning. She has not eaten since last evening. She has no contraindication to propofol and denies allergy to soy products or egg products. She has had no complication the past with use of propofol. Patient was explained risk benefits of deep sedation and risk benefits of cardioversion. She given opportunity ask questions. None were asked. Patient was consented for deep sedation and cardioversion. Timeout was called. Patient received 100 mg of propofol. She was successfully cardioverted using 150 J. Rhythm on the monitor reveals a sinus mechanism with a ventricular rate of 90. There was no complications. Start time 0953 end time 0958 <Dutch Valverde - Last Filed: 08/03/20 12:53> ED Disposition <Duthc Valverde - Last Filed: 08/03/20 12:53> <Janelle Mcintosh - Last Filed: 08/03/20 13:30> - Plan for ED Patient: Disposition: Home or Assisted Living Diagnosis: Atrial fibrillation with rapid ventricular response, Encounter for cardioversion procedure Instructions: ED AFIB Referrals: Kylah Palma PA [Primary Care Provider] -
[2020-08-03 09:48] LABS: Absolute Lymphocyte Count 2.93 X10^3/uL (0.83-4.51); Absolute Neutrophil Count 6.8 X10^3/uL (2.0-7.7); Basophil# 0.07 X10^3/uL; Basophil% 0.7 % (0-1); Eosinophils% 1.9 % (0-5); Hematocrit 43.5 % (37-47); Hemoglobin 13.9 g/dL (12.0-15.0); Lymphocyte # 2.93 X10^3/ul (4.0); Lymphocyte % 27.3 % (19-41); Mean Corpuscular Hgb 27.9 pg (27.0-32.0); Mean Corpuscular Volume 87.2 fL (81-99); Mean Platelet Vol. 10.8 fl (6.2-12.0); Monocyte# 0.72 X10^3/uL; Monocyte% 6.7 % (0-10); NRBC Flagged by Analyzer 0 % (0-5); Neutrophil # 6.77 X10^3/uL (2.7-7.7); Platelet Count 429 K/mm3 (150-450); RBC Distribution Width CV 14.1 % (11.6-14.6); RBC Distribution Width SD 44.4 fl (35.1-43.9); Red Blood Count 4.99 M/mm3 (4.2-5.4); White Blood Count 10.7 K/mm3 (4.4-11.0)
[2020-08-03] MEDS: Propofol 200 MG/20 ML Vial IV BOLUS (09:54)
[2020-08-03 10:13] LABS: Anion Gap 7 (5-15); BUN 20 mg/dL (7-18); BUN/Creat Ratio 21.4 RATIO (10-20); Calcium,Total 9.1 mg/dL (8.5-10.1); Chloride 108 mmol/L (98-107); Creatinine, Serum 0.93 mg/dL (0.55-1.02); EST Glomerular Filtration Rate 71 mL/min (>60); Est Glom Filt Rate - Afr Amer 86 mL/min (>60); Estimated Creatinine Clearance 81.12 ml/min; Glucose 133 mg/dL (74-106); Magnesium 1.9 mg/dL (1.6-2.6); Potassium 3.9 mmol/L (3.5-5.1); Sodium Level 138 mmol/L (136-145)
== END 2020-08-03 11:13 | disposition home or self-care (01) ==
PROVIDERS: Emergency Provider Physician Assistant; PCP Physician Assistant
DX: I48.91 Unspecified atrial fibrillation (principal); I44.7 Left bundle-branch block, unspecified; Z79.899 Other long term (current) drug therapy
CPT/HCPCS: 80048; 83735; 84443; 84484; 85025; 92960; 93005; 99284; J7030

== ENCOUNTER 2020-08-12 09:26 | Emergency (ER) | payer BC, SELFPAY ==
[2020-08-03 09:24] VITALS: BMI 43.0
[2020-08-12 09:27] VITALS: BP 150/127; PULSE 143; RESP 19; TEMP 36.7; O2SAT 97; BMI 51.0
[2020-08-12 09:32] VITALS: BP 134/89; PULSE 148; RESP 22; O2SAT 97
--- NOTE | 2020-08-12 09:49 | EKG12_ITS ---
Test Reason : CP Blood Pressure : / mmHG Vent. Rate : 137 BPM Atrial Rate : 187 BPM P-R Int : 000 ms QRS Dur : 118 ms QT Int : 332 ms P-R-T Axes : 000 -08 142 degrees QTc Int : 501 ms Atrial flutter with variable A-V block Septal infarct , age undetermined Abnormal ECG Confirmed by CHRISTIAN ZHOU, JASON ([id number]), art editor SHELLI SLADE ([id number]) on 08/13/2020 2:01:54 PM Referred By: BB Confirmed By:JASON GONZALES MD
--- NOTE | 2020-08-12 09:49 | ED.VIS.GEN ---
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 no chest pain. Narrative: Patient presenting with the same symptoms she usually gets when she goes into rapid A. fib. She has history of HOCM, has had prior surgeries for this, in addition to RFAs, her last one was in November 2019 at the [facility] where her game trapper is. She has had about 4 or 5 episodes of atrial fibrillation since then, most of them resolve on their own, but she has come to the hospital for them in the past, the last one was 1 week ago where she was electrically cardioverted. She has an AICD, it has not gone off recently. She has been on Eliquis long-term. She takes metoprolol 50 mg twice daily, she has not taken this morning's dose yet. She denies any recent illness, drug use, or other symptoms at this time. She has not had any syncopal episodes. Since her last visit here a week ago, she did call her game trapper to make an appointment, they did not have anything prior to September next month. - Past Medical History (1) HOCM (hypertrophic obstructive cardiomyopathy) Status: Chronic (2) Paroxysmal atrial fibrillation Status: Chronic (3) WPW (Qhskv-Uzwvrflar-Gvaom syndrome) Status: Chronic Past Medical History - Allergies and Home Meds Allergies/Adverse Reactions: Allergies No Known Allergies Allergy (Verified 08/12/20 09:37) Primary Care Physician: Kylah Palma PA [Primary Care Provider] - Surgical History: - - cardiac - septoplasty, ablation, something clamped off, AICD Smoking Status: Never smoker Review of Systems General: Reports: Sweats. Denies: Chills, Fever Eyes: Denies: Visual changes - bilaterally, Diplopia ENT: Denies: Rhinorrhea, Sore throat Cardiovascular: Reports: Palpitations, Heart racing. Denies: Chest pain Respiratory: Reports: Dyspnea. Denies: Cough, Dyspnea on exertion Gastrointestinal: Denies: Abdominal pain, Nausea, Vomiting, Diarrhea, Melena, Hematochezia Genitourinary: Denies: Dysuria, Hematuria, Frequency Musculoskeletal: Denies: Back pain, Extremity Pain Skin: Denies: Rash, Wounds Neurological: Denies: Headache, Weakness, Numbness Physical Exam Vital Signs/Narrative: Vital Signs Temp Pulse Resp BP Pulse Ox 08/12/20 09:32 148 H 22 H 134/89 H 97 08/12/20 09:27 98.1 F 143 H 19 H 150/127 H 97 Inital Vital Signs reviewed: Yes General: Well nourished, Well developed, No Acute Distress - Well-appearing, conversive in full sentences Head: Normocephalic, Atraumatic Eyes: Perrl, EOMI ENT: Moist mucous membranes, No rhinorrhea Neck: Supple, Nontender, No JVD Cardiovascular: No murmurs, Normal S1, Normal S2, Irregular Respiratory: No distress, CTA bilaterally, Chest nontender Abdomen: Soft, Nontender, Nondistended, Normal bowel sounds Back: Nontender, Normal Inspection Extremities: Nontender, No edema. Negative for: Calf Tenderness Skin: Normal color, No rash Neurological: Alert, Oriented x3, Cranial nerves II-XII grossly intact, Normal Strength, Normal Sensation Psychological: Normal affect, Normal Mood Diagnostic/Tx/Re-eval Laboratory Tests 08/12/20 08/12/20 Range/Units 09:35 09:35 WBC 11.7 H (4.4-11.0) K/mm3 RBC 5.41 H (4.2-5.4) M/mm3 Hgb 15.0 (12.0-15.0) g/dL Hct 46.9 (37-47) % MCV 86.7 (81-99) fL MCH 27.7 (27.0-32.0) pg MCHC 32.0 (32-36) g/dL RDW Std Deviation 44.7 H (35.1-43.9) fl RDW Coeff of Ramesh 14.1 (11.6-14.6) % Plt Count 434 (150-450) K/mm3 MPV 11.1 (6.2-12.0) fl Immature Gran % (Auto) 0.300 (0.0-0.9) % Neut % (Auto) 63.2 (47-70) % Lymph % (Auto) 27.4 (19-41) % Bryan % (Auto) 5.4 (0-10) % Eos % (Auto) 2.8 (0-5) % Baso % (Auto) 0.9 (0-1) % Absolute Neuts (auto) 7.4 (2.0-7.7) X10^3/uL Absolute Lymphs (auto) 3.20 (0.83-4.51) X10^3/uL Nucleated RBC % 0 (0-5) % Sodium 139 (136-145) mmol/L Potassium 3.7 (3.5-5.1) mmol/L Chloride 108 H (98-107) mmol/L Carbon Dioxide 25.0 (21.0-32.0) mmol/L Anion Gap 6 (5-15) BUN 15 (7-18) mg/dL Creatinine 0.91 (0.55-1.02) mg/dL Estim Creat Clear Calc 82.90 ml/min Est GFR (MDRD) Af Amer 88 (>60) mL/min Est GFR (MDRD) Non-Af 73 (>60) mL/min BUN/Creatinine Ratio 16.5 (10-20) RATIO Glucose 160 H (74-106) mg/dL Calcium 8.7 (8.5-10.1) mg/dL - Rhythm Strip Rhythm Strip: A-fib Rate: 140 Ectopy: None - EKG Initial EKG Interpretation: No Acute Injury Pattern, Atrial Fibrillation, LBBB Prior: Unchanged - Pre-existing left bundle branch block, no acute morphology changes - Medical Decision Making Patient was given IV metoprolol 5 mg in addition to her morning dose of 50 mg orally. On reevaluation she cardioverted. Her symptoms are resolved. I think at this time she is stable for discharge home and she is in agreement. It is the weekend, I advised her to call her game trapper tomorrow and discussed dosage recommendations if they are not able to get her in sooner. She is in agreement and comfortable with discharge we discussed reasons to return. ED Disposition - Plan for ED Patient: Disposition: Home or Assisted Living Diagnosis: Paroxysmal atrial fibrillation with RVR Instructions: ED AFIB Referrals: Kylah Palma, PA [Primary Care Provider] - Addiction Therapist, your [Other] (Call for appointment/medication recommendations)
[2020-08-12 09:54] LABS: Absolute Neutrophil Count 7.4 X10^3/uL (2.0-7.7); Basophil% 0.9 % (0-1); Eosinophil# 0.33 X10^3/uL; Eosinophils% 2.8 % (0-5); Hematocrit 46.9 % (37-47); Lymphocyte % 27.4 % (19-41); Mean Corpuscular Hgb 27.7 pg (27.0-32.0); Mean Corpuscular Volume 86.7 fL (81-99); Mean Platelet Vol. 11.1 fl (6.2-12.0); Monocyte# 0.63 X10^3/uL; Monocyte% 5.4 % (0-10); NRBC Flagged by Analyzer 0 % (0-5); Neutrophil # 7.41 X10^3/uL (2.7-7.7); Neutrophil % 63.2 % (47-70); Platelet Count 434 K/mm3 (150-450); RBC Distribution Width CV 14.1 % (11.6-14.6); RBC Distribution Width SD 44.7 fl (35.1-43.9); Red Blood Count 5.41 M/mm3 (4.2-5.4); White Blood Count 11.7 K/mm3 (4.4-11.0)
[2020-08-12] MEDS: Metoprolol Tartrate 5 MG/5 ML Vial IV (09:54)
[2020-08-12] MEDS: Metoprolol Tartrate 25 MG Tablet 50 MG PO (09:58)
[2020-08-12 10:02] VITALS: BP 108/95; BP 125/78; PULSE 130; PULSE 148; RESP 17; RESP 20; O2SAT 97
[2020-08-12 10:04] LABS: Anion Gap 6 (5-15); BUN 15 mg/dL (7-18); BUN/Creat Ratio 16.5 RATIO (10-20); Calcium,Total 8.7 mg/dL (8.5-10.1); Chloride 108 mmol/L (98-107); Creatinine, Serum 0.91 mg/dL (0.55-1.02); EST Glomerular Filtration Rate 73 mL/min (>60); Est Glom Filt Rate - Afr Amer 88 mL/min (>60); Glucose 160 mg/dL (74-106); Potassium 3.7 mmol/L (3.5-5.1); Sodium Level 139 mmol/L (136-145)
[2020-08-12 10:52] VITALS: BP 122/86; PULSE 100; RESP 16; O2SAT 97
[2020-08-12 11:30] VITALS: BP 118/89; PULSE 74; RESP 17; O2SAT 97
== END 2020-08-12 11:30 | disposition home or self-care (01) ==
PROVIDERS: Emergency Provider Emergency Medicine; PCP Physician Assistant
DX: I48.0 Paroxysmal atrial fibrillation (principal); I42.1 Obstructive hypertrophic cardiomyopathy; I45.6 Pre-excitation syndrome; Z79.01 Long term (current) use of 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; Z79.899 Other long term (current) drug therapy; Z95.810 Presence of automatic (implantable) cardiac defibrillator
CPT/HCPCS: 80048; 85025; 93005; 96374; 99284

== ENCOUNTER 2020-11-06 19:22 | Emergency (ER) | payer BC, SELFPAY ==
[2020-11-06 19:23] VITALS: BP 161/96; PULSE 77; RESP 16; TEMP 35.3; O2SAT 99; BMI 49.1
--- NOTE | 2020-11-06 19:24 | RAD_ITS ---
STUDY: X-RAY - LEFT WRIST REASON FOR EXAM: Female, 40 years old. Fall today on ice. Generalized left wrist pain. TECHNIQUE: 3 view(s) of the wrist were obtained. COMPARISON: None. FINDINGS: Normal visualized distal radius and ulna. Normal radiocarpal articulation. Normal distal radioulnar articulation. Normal carpal bones. Normal carpal articulations. Normal carpometacarpal articulation of the thumb. Normal second through fifth carpometacarpal articulations. Normal visualized metacarpal bones. The soft tissue structures are unremarkable. There is no demonstrated acute fracture. RAD/Wrist min 3 Views IMPRESSION: Normal x-ray examination of the wrist. Electronically Signed: Brendan Mancini MD at 20:00 EST , Service support ,
[2020-11-06] MEDS: Acetaminophen 500 MG Tablet 1000 MG PO (19:57)
--- NOTE | 2020-11-06 20:04 | ED.DCSUM_ITS ---
- ER Visit Summary Date of Service: 11/06/20 Chief Complaint: Fall, left wrist pain History of Present Illness: The patient is a 40 F who sees Rojas Palma. She is right-hand dominant. She reports that she slipped on the ice and fell onto an outstretched left hand. Complains of left wrist pain is 10 out of 10 with movement 9 out of 10 at rest. She is not taken anything for pain. Denies any numbness or weakness. Patient denies any blow to the head or loss of consciousness. She is on Eliquis. She denies any neck, back, shoulder, or hip pain. Physical Examination: Vitals: Stable. Afebrile. Neck: No vertebral tenderness. Full ROM without difficulty. Cleared by NEXUS criteria. Back: No vertebral tenderness. General: A&O x 3. NAD. Cardiovascular exam: Regular rate and rhythm, no murmur, rub or gallop. Respiratory exam: Chest nontender. No crepitus. Clear to auscultation bilaterally. No wheezes or stridor. Abdominal exam: Soft, nontender, nondistended, normal bowel sounds. No pain in RUQ or LUQ specifically. No peritoneal signs. Extremity: Moderate tense palpation of distal radius on the left. No pain in the anatomic snuffbox. No pain with axial load of her thumb. She is neuro vas intact distal this. Test Results: Clinical Impression(s) from Imaging Studies Wrist X-Ray 11/06/20 19:24 IMPRESSION: Normal x-ray examination of the wrist. Electronically Signed: Brendan Mancini MD at 20:00 EST , Service support , Emergency Department Course and Treatment: Patient was placed in a Velcro wrist splint and treated with Tylenol. She is resting comfortably. Treatment Plan: Patient be discharged instructions use Tylenol for pain. She is also given a prescription for 10 [place] for severe pain. Follow-up with her primary care physician 1 week if not improving. Return to the emergency department for any worsening symptoms. Disposition: To home in improved and stable condition. Impression: 1. Fall. 2. Left wrist sprain. This note was generated with [employer] software. It may contain incorrect words, spelling, and punctuation that were not noted in review of the chart prior to signing ED Disposition - Plan for ED Patient: Instructions: ED Wrist Sprain Prescriptions: Hydrocodone Bitart/Apap 5-325 [[place] 5MG-325MG] 1 tablet PO Q4H PRN PRN 2 Days #10 tablet PRN Reason: Pain Referrals: Kylah Palma, PA [Primary Care Provider] - 1 Week if not improving
== END 2020-11-06 20:18 | disposition home or self-care (01) ==
PROVIDERS: Emergency Provider Emergency Medicine; PCP Physician Assistant
DX: S63.502A Unspecified sprain of left wrist, initial encounter (principal); W00.0XXA Fall on same level due to ice and snow, initial encounter; Z79.01 Long term (current) use of 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
CPT/HCPCS: 73110; 99283

== ENCOUNTER 2021-06-12 17:23 | Emergency (ER) | payer BC, SELFPAY ==
[2021-06-12 17:25] VITALS: BP 117/82; PULSE 153; RESP 18; TEMP 36.6; O2SAT 97; BMI 46.5
--- NOTE | 2021-06-12 18:31 | EKG12_ITS ---
Test Reason : AFIB Blood Pressure : / mmHG Vent. Rate : 145 BPM Atrial Rate : 159 BPM P-R Int : 000 ms QRS Dur : 120 ms QT Int : 262 ms P-R-T Axes : 000 004 176 degrees QTc Int : 406 ms Atrial fibrillation Left bundle branch block Abnormal ECG Confirmed by LOW ZHOU, GALILEA ([id number]), publications editor VICK STOCKTON ([id number]) on 06/17/2021 12:42:41 PM Referred By: ERLIN Confirmed By:GALILEA KELSEY MD
--- NOTE | 2021-06-12 18:43 | EKG12_ITS ---
Test Reason : REPEAT Blood Pressure : / mmHG Vent. Rate : 083 BPM Atrial Rate : 083 BPM P-R Int : 162 ms QRS Dur : 128 ms QT Int : 426 ms P-R-T Axes : 029 001 141 degrees QTc Int : 500 ms Normal sinus rhythm Left bundle branch block Abnormal ECG When compared with ECG of 12-JUN-2021 17:33, MANUAL COMPARISON REQUIRED, DATA IS UNCONFIRMED Confirmed by CHRISTIAN ZOHU, JASON ([id number]), technical writer and editor VICK STOCKTON ([id number]) on 06/18/2021 10:49:07 AM Referred By: ERLIN Confirmed By:JASON GONZALES MD
--- NOTE | 2021-06-12 18:43 | EDS_ITS ---
HPI History of Present Illness Chief Complaint: Shortness of Breath Informant: patient Narrative Narrative: Patient is a 40-year-old female with history of proximal atrial fibrillation, hyper trophic obstructive cardiomyopathy and WPW presenting with palpitations and on lightheadedness. Patient states she was at work when she suddenly felt very hot and lightheaded. She states it felt like when her heart is rapid ventricular response. She has been compliant with her sotalol, metoprolol and apixaban. She follows with cardiology at [facility]. She denies any chest pain. No other complaints at this time. [facility] Medical History (Updated 06/13/21 @ 00:[address] Inocencia Senior, DO) Afib Atrial flutter Borderline diabetes Fatigue Heart disease Presence of combination internal cardiac defibrillator (ICD) and pacemaker Shortness of breath Home Medications metoprolol tartrate 50 mg PO BID 02/21/14 [History Last Taken 12/16/19] apixaban 5 mg PO BID #60 tab 11/30/19 [Rx Last Taken 12/16/19] aspirin 81 mg PO DAILY 12/16/19 [History Last Taken 12/16/19] sotalol 120 mg PO BID 06/12/21 [History Last Taken Unknown] Allergy/AdvReac Type Severity Reaction Status Date / Time No Known Allergies Allergy Verified 06/12/21 17:29 Social History (Updated 12/22/17 @ 13:20 by Lio DE LEON, HALEY) Smoking Status: Former smoker alcohol intake: never ROS [facility] ED Constitutional Constitutional ED: Reports other Details: lightheaded ; Denies chills, fever(s) or malaise Eyes Eyes: Denies blurry vision or loss of vision ENT ENT ED: Denies rhinorrhea or sore throat Cardiovascular Cardiovascular: Reports palpitations and racing heartbeat; Denies chest pain or dizziness Respiratory/Chest Respiratory/Chest: Reports dyspnea; Denies cough Gastrointestinal Gastrointestinal: Denies nausea or vomiting Genitourinary Genitourinary ED: Denies dysuria or hematuria Musculoskeletal Musculoskeletal: Denies arthralgias or myalgias Integumentary Denies rash or wounds Neurologic Neurologic: Denies focal weakness or headache(s) Psychiatric Psychiatric: Denies anxiety or behavioral changes EXAM Physical Exam Const Vital Signs: 06/12/21 17:25 06/12/21 19:30 06/12/21 20:42 Temperature 97.8 F Temperature Source Temporal Pulse Rate 153 H 86 Respiratory Rate 18 20 H Respiratory Effort Normal Respiratory Depth Normal Respiratory Pattern Normal Blood Pressure 117/82 H 119/80 Blood Pressure Mean 93 93 Pulse Ox 97 Oxygen Delivery Method Room Air Room Air Room Air 06/12/21 22:29 Temperature Temperature Source Pulse Rate 91 Respiratory Rate 15 Respiratory Effort Respiratory Depth Respiratory Pattern Blood Pressure Blood Pressure Mean Pulse Ox 98 Oxygen Delivery Method Positive well nourished and well developed General Appearance ED: well developed HEENT Reports moist mucous membranes Negative for tenderness Eyes PERRL and EOMs intact bilaterally Neck no lymphadenopathy, supple and no JVD Chest Wall inspection of chest normal Resp normal respiratory effort and clear to auscultation bilaterally Cardio no murmurs Rate: tachycardic Rhythm: abnormal rhythm irregularly irregular GI normal to inspection, nondistended, normoactive bowel sounds Extremity normal to inspection General Extremety ED: Negative for edema or tenderness General Extremity: Negative for edema Neuro oriented x3 Sensorium / Orientation: alert Motor Exam: Negative for general weakness Psych mental status grossly normal Skin no rashes or lesions noted MDM MDM MDM Narrative Medical decision making narrative: Patient evaluated for palpitations and lightheadedness. Patient is in atrial fibrillation with RVR. I suspect her lightheadedness and symptoms are associated with her rapid ventricular response. Patient is ordered IV metoprolol push for rate control however she converted to normal sinus rhythm prior to receiving it. Her symptoms have since resolved. Her troponin is normal. She does have a mild leukocytosis of 16 but no IV source of infection. Chest x-ray does not show any acute process. As patient symptoms have resolved and she feels better I think she go home. Patient will call her licensed funeral director in the morning to see if they need to make any medication adjustments. Patient is counseled on signs and symptoms requiring return to the emergency room. Patient verbalizes agreement and understand this plan. Patient discharged home in stable and improved condition. Lab Data Attestation: I reviewed the patient's lab results. Labs: Laboratory Results - last 24 hr 06/12/21 06/12/21 06/12/21 18:45 18:45 18:45 WBC 16.0 H RBC 5.01 Hgb 14.4 Hct 42.2 MCV 84.2 MCH 28.7 MCHC 34.1 RDW Std Deviation 42.6 RDW Coeff of Ramesh 14.0 Plt Count 354 MPV 11.0 Immature Gran % (Auto) 0.400 Neut % (Auto) 79.0 H Lymph % (Auto) 13.8 L [place] % (Auto) 5.7 Eos % (Auto) 0.6 Baso % (Auto) 0.5 Absolute Neuts (auto) 12.7 H Absolute Lymphs (auto) 2.21 Nucleated RBC % 0 Sodium 135 L Potassium 3.9 Chloride 104 Carbon Dioxide 24.0 Anion Gap 7 BUN 23 H Creatinine 0.99 Estim Creat Clear Calc 76.20 Est GFR (MDRD) Af Amer 79 Est GFR (MDRD) Non-Af 65 BUN/Creatinine Ratio 23.1 H Glucose 135 H Calcium 9.4 Troponin I High Sens 14 Serum , Qual NEGATIVE Radiography Chest X-Ray - ED: 1 View, Read by ED Physician, Read by Radiologist and No Acute Disease Diagnostic Testing: Radiology Impression Chest X-Ray 06/12/21 18:52 IMPRESSION: No focal infiltrate or edema. Electronically Signed: Andrei Bravo MD at 21:23 EDT , Service support , Rhythm Strip Rhythm Strip: A-fib Rate: 145 Ectopy: None EKG Initial EKG: Attestation: I personally reviewed and interpreted this EKG as follows: Interpretation: Atrial Fibrillation Comments: Atrial fibrillation with rapid ventricular response at a rate of 145 Incomplete left bundle jenna block Strain pattern in the lateral leads. Normal axis Normal QRS and QTc Compared to prior EKG on 08/12/2020 no acute changes Follow-up EKG: Attestation: I personally reviewed and interpreted this EKG as follows: Interpretation: Sinus Rhythm Comments: Normal sinus rhythm at a rate of 83 Normal axis Left bundle branch block Normal ST segments Discharge Plan Triage Chief Complaint: Shortness of Breath ED Provider: Inocencia Senior Dx/Rx/DC Orders Clinical Impression: Atrial fibrillation with RVR, HOCM (hypertrophic obstructive cardiomyopathy), WPW (Vkmzz-[id number]-[id number] syndrome) Instructions: ED AFIB Prescriptions: No Action metoprolol tartrate 25 MG tablet 50 mg PO BID RF: 0 apixaban 5 MG tablet 5 mg PO BID Qty: 60 RF: 0 aspirin 81 MG tablet,delayed release (DR/EC) 81 mg PO DAILY RF: 0 sotalol 120 mg Tablet 120 mg PO BID RF: 0 Primary Care Provider: Kylah Palma Referrals: Kylah Palma, PA [Primary Care Provider] - Activity Restrictions/Additional Instructions: Please call your licensed funeral director tomorrow for follow-up and further recommendations if they like you to make any medication changes. Return the emergency room if you have any worsening symptoms. Disposition Disposition: Home, Self Care Discharge Date/Time: 06/12/21 22:29
--- NOTE | 2021-06-12 18:52 | RAD_ITS ---
STUDY: X-RAY CHEST REASON FOR EXAM: Female, 40 years old. Palpitations TECHNIQUE: Single AP portable view of the chest. COMPARISON: August 02, 2020 FINDINGS: There is subcutaneous pacemaker on the left. The lungs are clear and expanded. There is no demonstrated pleural abnormality. Sternal cerclage wires are present from a prior sternotomy. There is atrial appendage clip. Normal mediastinum and eldon. Normal visualized pulmonary arteries. Normal visualized aortic arch and descending thoracic aorta. Normal visualized thoracic spine. Normal visualized ribs, clavicles, and shoulders. There is no demonstrated abnormality of the visualized soft tissue structures of the upper abdomen. RAD/Chest 1 View (Portable) IMPRESSION: No focal infiltrate or edema. Electronically Signed: Andrei Bravo MD at 21:23 EDT , Service support ,
[2021-06-12 18:56] LABS: Absolute Lymphocyte Count 2.21 X10^3/uL (0.83-4.51); Absolute Neutrophil Count 12.7 X10^3/uL (2.0-7.7); Basophil# 0.08 X10^3/uL; Basophil% 0.5 % (0-1); Eosinophils% 0.6 % (0-5); Hematocrit 42.2 % (37-47); Hemoglobin 14.4 g/dL (12.0-15.0); Lymphocyte # 2.21 X10^3/ul (0.83-4.51); Lymphocyte % 13.8 % (19-41); Mean Corp Hgb Conc 34.1 g/dL (32-36); Mean Corpuscular Hgb 28.7 pg (27.0-32.0); Mean Corpuscular Volume 84.2 fL (81-99); Monocyte# 0.92 X10^3/uL; Monocyte% 5.7 % (0-10); NRBC Flagged by Analyzer 0 % (0-5); Neutrophil # 12.66 X10^3/uL (2.7-7.7); Platelet Count 354 K/mm3 (150-450); RBC Distribution Width SD 42.6 fl (35.1-43.9); Red Blood Count 5.01 M/mm3 (4.2-5.4)
[2021-06-12] MEDS: 0.9% Normal Saline 1,000 ML 1000 ML IV (19:00)
[2021-06-12 19:07] LABS: Internal QC Validated? YES +Cl - CLEAR BKGD; Pregnancy, Serum, hCG Quali. NEGATIVE Negative
[2021-06-12 19:13] LABS: Anion Gap 7 (5-15); BUN 23 mg/dL (7-18); BUN/Creat Ratio 23.1 RATIO (10-20); Calcium,Total 9.4 mg/dL (8.5-10.1); Chloride 104 mmol/L (98-107); Creatinine, Serum 0.99 mg/dL (0.55-1.02); EST Glomerular Filtration Rate 65 mL/min (>60); Est Glom Filt Rate - Afr Amer 79 mL/min (>60); Glucose 135 mg/dL (74-106); Potassium 3.9 mmol/L (3.5-5.1); Sodium Level 135 mmol/L (136-145); Troponin-I HS 14 pg/mL (3.0-54.0)
[2021-06-12 19:30] VITALS: BP 119/80; PULSE 86; RESP 20
[2021-06-12 22:29] VITALS: PULSE 91; RESP 15; O2SAT 98
== END 2021-06-12 22:29 | disposition home or self-care (01) ==
PROVIDERS: Emergency Provider Emergency Medicine; PCP Physician Assistant
DX: I48.91 Unspecified atrial fibrillation (principal); I45.6 Pre-excitation syndrome; I42.1 Obstructive hypertrophic cardiomyopathy; I44.7 Left bundle-branch block, unspecified; I48.92 Unspecified atrial flutter; R73.03 Prediabetes; Z79.01 Long term (current) use of 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; Z79.82 Long term (current) use of aspirin; Z87.891 Personal history of nicotine dependence; Z95.810 Presence of automatic (implantable) cardiac defibrillator
CPT/HCPCS: 71045; 80048; 84484; 84703; 85025; 93005; 99285; J7030

== ENCOUNTER 2021-11-04 00:49 | Emergency (ER) | payer BC, SELFPAY ==
[2021-11-04 00:50] VITALS: BP 121/108; PULSE 60; RESP 18; TEMP 36.4; O2SAT 100; BMI 43.4
--- NOTE | 2021-11-04 01:08 | EKG12_ITS ---
Test Reason : PALPITATIONS Blood Pressure : / mmHG Vent. Rate : 145 BPM Atrial Rate : 156 BPM P-R Int : 000 ms QRS Dur : 120 ms QT Int : 336 ms P-R-T Axes : 000 010 200 degrees QTc Int : 521 ms Atrial fibrillation Incomplete left bundle branch block Marked ST abnormality, possible inferolateral subendocardial injury Abnormal ECG Confirmed by CHRISTIAN ZHOU, JASON ([id number]), clinical editor VICK STOCKTON ([id number]) on 11/04/2021 11:05:38 AM Referred By: TRINI Confirmed By:JASON GONZALES MD
--- NOTE | 2021-11-04 01:08 | RAD_ITS ---
HISTORY: Palpitations EXAMINATION/TECHNIQUE: XR Chest 1 View COMPARISON: AP chest x-ray from 06/12/21 FINDINGS: LINES/DEVICES: Left lower chest wall pacemaker device in place. Sternotomy wires, clinical research monitor leads and left atrial appendage clip also noted. LUNGS: No focal airspace consolidation. No pulmonary edema. No pleural effusion. No pneumothorax. MEDIASTINUM AND CARDIOVASCULAR STRUCTURES: Cardiac silhouette not enlarged. Central airways and mediastinal contour are unremarkable. BONES AND SOFT TISSUES: No acute findings. RAD/Chest 1 View (Portable) IMPRESSION: No radiographic evidence of acute cardiopulmonary disease. at 0138 Reported and signed by: Santosh Zee MD Electronically Signed: Santosh Zee MD at 1:37 EST ,
--- NOTE | 2021-11-04 01:10 | EX.ED.DYSGE1 ---
HPI History of Present Illness Chief Complaint: Palpitations Informant: patient Onset/Context/Timing Onset: Hours (2) Context: Sudden Onset Timing: Continuous Quality: Racing Location: Chest Worsened by: Nothing Relieved by: Nothing Narrative Narrative: Patient presents with palpitations that began tonight. Patient states they began approximately 2 hours prior to arrival. Patient states they began rather suddenly. Patient states she feels like her heart is racing. Patient states this feels similar to prior episodes of atrial fibrillation. Patient states nothing makes them better nothing makes it worse. Patient admits to subjective fevers and sweats. Patient admits to a mild cough but denies any shortness of breath. Patient denies any nausea or vomiting. [facility] Medical History (Updated 11/04/21 @ 03:[address] Stephen Sanders DO) Afib Atrial flutter Borderline diabetes Fatigue Heart disease Presence of combination internal cardiac defibrillator (ICD) and pacemaker Shortness of breath Home Medications metoprolol tartrate 50 mg PO BID 02/21/14 [History Last Taken 12/16/19] apixaban 5 mg PO BID #60 tab 11/30/19 [Rx Last Taken 12/16/19] aspirin 81 mg PO DAILY 12/16/19 [History Last Taken 12/16/19] sotalol 120 mg PO BID 06/12/21 [History Last Taken Unknown] Allergy/AdvReac Type Severity Reaction Status Date / Time No Known Allergies Allergy Verified 11/04/21 00:53 Surgical History (Updated 11/04/21 @ 01:[address] Stephen Sanders DO) History of heart surgery Hx of tympanostomy tubes Social History Smoking Status: Former smoker alcohol intake: never ROS ROS ED Constitutional Constitutional ED: Reports fever(s), subjective and sweats; Denies chills Eyes Eyes: Denies blurry vision or change in vision ENT ENT ED: Denies rhinorrhea or sore throat Cardiovascular Cardiovascular: Reports chest pain, palpitations and racing heartbeat Respiratory/Chest Respiratory/Chest: Reports cough; Denies dyspnea Gastrointestinal Gastrointestinal: Denies nausea or vomiting Genitourinary Genitourinary ED: Denies dysuria or hematuria Musculoskeletal Musculoskeletal: Denies back pain or neck pain Integumentary Denies abscess or rash Neurologic Neurologic: Denies headache(s) or weakness Allergic/Immunologic Allergic/Immunologic ED: Denies mouth swelling or urticaria EXAM Physical Exam Const Vital Signs: 11/04/21 00:50 11/04/21 02:50 Temperature 97.6 F L Temperature Source Oral Pulse Rate 60 95 Respiratory Rate 18 18 Blood Pressure 121/108 H Blood Pressure Mean 112 Pulse Ox 100 97 Oxygen Delivery Method Room Air Room Air Positive well nourished, well developed and obese General Appearance ED: well developed Nutritional Appearance: obese HEENT Reports moist mucous membranes Neck supple and no JVD Resp normal respiratory effort and clear to auscultation bilaterally Cardio Rate: tachycardic Rhythm: abnormal rhythm irregularly irregular GI normal to inspection, nondistended, normoactive bowel sounds and non-tender Palpation: soft Extremity normal to inspection General Extremety ED: Negative for edema or tenderness General Extremity: Negative for edema Neuro oriented x3, CN's II-XII intact bilaterally and no sensory deficits noted Sensorium / Orientation: alert Motor Exam: strength 5/5 throughout Psych mental status grossly normal Skin no rashes or lesions noted MDM MDM MDM Narrative Medical decision making narrative: EKG was obtained. On my interpretation, there is atrial fibrillation with a rate of 145. There is a left bundle branch block pattern noted. There are no acute ST or T wave changes noted. Portable 1 view chest x-ray was obtained. On my interpretation, lung he are clear. There is normal cardiac silhouette. Bony thorax is normal. There is no acute process noted. Radiologist also interpreted the x-ray and agrees. Patient states she felt like she converted back to a sinus rhythm. Repeat EKG was obtained. On my interpretation, there is a normal sinus rhythm with a rate of 98. AL interval was within normal limits. QTc interval was 518 QRS interval was 124 [place] was normal. There is a left bundle branch block pattern noted. There are no acute changes. CBC and comprehensive metabolic profile were obtained and were essentially within normal limits. PT with INR and PTT were normal. Initial high-sensitivity troponin was normal at 19. 2-hour repeat high-sensitivity troponin was also normal at 24. Patient was advised of her findings. Patient was instructed to return if she goes back into atrial fibrillation again. Patient was instructed to follow-up with her primary care physician in 5 to 7 days. Patient understood and was agreeable with the plan. All questions were answered. Lab Data Attestation: I reviewed the patient's lab results. Labs: Laboratory Results - last 24 hr 11/04/21 11/04/21 11/04/21 01:00 01:00 01:00 WBC 9.0 RBC 5.60 H Hgb 15.8 H Hct 46.9 MCV 83.8 MCH 28.2 MCHC 33.7 RDW Std Deviation 39.9 RDW Coeff of Ramesh 13.0 Plt Count 357 MPV 10.8 Immature Gran % (Auto) 0.300 Neut % (Auto) 44.4 L Lymph % (Auto) 43.8 H Jenkins % (Auto) 8.2 Eos % (Auto) 2.5 Baso % (Auto) 0.8 Absolute Neuts (auto) 4.0 Absolute Lymphs (auto) 3.93 Nucleated RBC % 0 PT 13.3 INR 1.1 APTT 26.5 Sodium 137 Potassium 3.9 Chloride 105 Carbon Dioxide 23.0 Anion Gap 9 BUN 16 Creatinine 0.88 Estim Creat Clear Calc 84.87 Est GFR (MDRD) Af Amer 91 Est GFR (MDRD) Non-Af 75 BUN/Creatinine Ratio 18.2 Glucose 148 H Calcium 9.0 Total Bilirubin 0.40 AST 31 ALT 67 H Alkaline Phosphatase 94 Troponin I High Sens 19 Total Protein 7.4 Albumin 3.6 Globulin 3.8 Albumin/Globulin Ratio 0.9 11/04/21 02:50 WBC RBC Hgb Hct MCV MCH MCHC RDW Std Deviation RDW Coeff of Ramesh Plt Count MPV Immature Gran % (Auto) Neut % (Auto) Lymph % (Auto) [place] % (Auto) Eos % (Auto) Baso % (Auto) Absolute Neuts (auto) Absolute Lymphs (auto) Nucleated RBC % PT INR APTT Sodium Potassium Chloride Carbon Dioxide Anion Gap BUN Creatinine Estim Creat Clear Calc Est GFR (MDRD) Af Amer Est GFR (MDRD) Non-Af BUN/Creatinine Ratio Glucose Calcium Total Bilirubin AST ALT Alkaline Phosphatase Troponin I High Sens 24 Total Protein Albumin Globulin Albumin/Globulin Ratio Radiography Chest X-Ray - ED: 1 View, Read by ED Physician, Read by Radiologist and Normal Diagnostic Testing: Clinical Impression(s) from Imaging Studies Chest X-Ray 11/04/21 01:08 IMPRESSION: No radiographic evidence of acute cardiopulmonary disease. at 0138 Reported and signed by: Santosh Zee MD Electronically Signed: Santosh Zee MD at 1:37 EST , EKG Initial EKG: Attestation: I personally reviewed and interpreted this EKG as follows: Interpretation: Atrial Fibrillation (145) and LBBB Prior EKG tracings: available for review Prior: Changed (Compared EKG from 06/12/2021, the atrial fibrillation is new. The left bundle branch block is unchanged.) Follow-up EKG: Attestation: I personally reviewed and interpreted this EKG as follows: Interpretation: Sinus Rhythm (98), No Acute Injury Pattern and LBBB Prior EKG tracings: available for review Prior: Unchanged Discharge Plan Triage Chief Complaint: Palpitations ED Provider: Stephen Sanders Dx/Rx/DC Orders Clinical Impression: Paroxysmal atrial fibrillation Instructions: ED AFIB Prescriptions: No Action metoprolol tartrate 25 MG tablet 50 mg PO BID RF: 0 apixaban 5 MG tablet 5 mg PO BID Qty: 60 RF: 0 aspirin 81 MG tablet,delayed release (DR/EC) 81 mg PO DAILY RF: 0 sotalol 120 mg Tablet 120 mg PO BID RF: 0 Primary Care Provider: Kylah Palma Referrals: Kylah Palma PA [Primary Care Provider] - 3-5 Days Disposition Disposition: Home, Self Care
[2021-11-04 01:22] LABS: Absolute Lymphocyte Count 3.93 X10^3/uL (0.83-4.51); Basophil# 0.07 X10^3/uL; Basophil% 0.8 % (0-1); Eosinophil# 0.22 X10^3/uL; Eosinophils% 2.5 % (0-5); Hematocrit 46.9 % (37-47); Hemoglobin 15.8 g/dL (12.0-15.0); Lymphocyte # 3.93 X10^3/ul (0.83-4.51); Lymphocyte % 43.8 % (19-41); Mean Corp Hgb Conc 33.7 g/dL (32-36); Mean Corpuscular Hgb 28.2 pg (27.0-32.0); Mean Corpuscular Volume 83.8 fL (81-99); Mean Platelet Vol. 10.8 fl (6.2-12.0); Monocyte# 0.74 X10^3/uL; Monocyte% 8.2 % (0-10); NRBC Flagged by Analyzer 0 % (0-5); Neutrophil # 3.98 X10^3/uL (2.7-7.7); Neutrophil % 44.4 % (47-70); Platelet Count 357 K/mm3 (150-450); RBC Distribution Width SD 39.9 fl (35.1-43.9)
--- NOTE | 2021-11-04 01:22 | EKG12_ITS ---
Test Reason : RHYTHM CHANGE Blood Pressure : / mmHG Vent. Rate : 098 BPM Atrial Rate : 098 BPM P-R Int : 168 ms QRS Dur : 124 ms QT Int : 406 ms P-R-T Axes : 047 008 142 degrees QTc Int : 518 ms Normal sinus rhythm Left bundle branch block Abnormal ECG Confirmed by CHRISTIAN ZHOU, JASON ([id number]), makeup editor VICK STOCKTON ([id number]) on 11/04/2021 11:07:34 AM Referred By: TRINI Confirmed By:JASON GONZALES MD
[2021-11-04 01:28] LABS: International Normalized Ratio 1.1; Partial Thromboplast Time 26.5 Seconds (24.1-36.2); Prothrombin Time (Protime)PT. 13.3 SECONDS (11.7-14.9)
[2021-11-04 01:37] LABS: ALB/GLOB Ratio 0.9 RATIO (0.9-2.4); AST(SGOT) 31 U/L (15-37); Alanine Aminotransfer ALT/SGPT 67 U/L (13-56); Albumin, Serum 3.6 g/dL (3.2-5.0); Alkaline Phosphatase 94 U/L (45-117); Anion Gap 9 (5-15); BUN 16 mg/dL (7-18); BUN/Creat Ratio 18.2 RATIO (10-20); Chloride 105 mmol/L (98-107); Creatinine, Serum 0.88 mg/dL (0.55-1.02); EST Glomerular Filtration Rate 75 mL/min (>60); Est Glom Filt Rate - Afr Amer 91 mL/min (>60); Estimated Creatinine Clearance 84.87 ml/min; Globulin 3.8 g/dL (2.2-4.2); Glucose 148 mg/dL (74-106); Potassium 3.9 mmol/L (3.5-5.1); Protein, Total 7.4 g/dL (6.4-8.2); Sodium Level 137 mmol/L (136-145); Troponin-I HS 19 pg/mL (3.0-54.0)
[2021-11-04 02:50] VITALS: PULSE 95; RESP 18; O2SAT 97
[2021-11-04 03:12] LABS: Troponin-I HS 24 pg/mL (3.0-54.0)
[2021-11-04 03:46] VITALS: BP 100/61; PULSE 88; RESP 16; O2SAT 98
== END 2021-11-04 03:47 | disposition home or self-care (01) ==
PROVIDERS: Emergency Provider Emergency Medicine; PCP Physician Assistant; Visit Provider Emergency Medicine
DX: I48.0 Paroxysmal atrial fibrillation (principal); Z87.891 Personal history of nicotine dependence; I44.7 Left bundle-branch block, unspecified; Z95.810 Presence of automatic (implantable) cardiac defibrillator
CPT/HCPCS: 71045; 80053; 84484; 85025; 85610; 85730; 93005; 99283; J7030; A4216

== ENCOUNTER 2022-03-22 15:47 | Emergency (ER) | payer BC, SELFPAY ==
[2022-03-22 15:48] VITALS: BP 121/87; PULSE 97; RESP 16; TEMP 35.6; O2SAT 99; BMI 42.5
[2022-03-22 16:06] VITALS: BP 95/73; PULSE 140; RESP 23; O2SAT 98
--- NOTE | 2022-03-22 16:20 | EKG12_ITS ---
Test Reason : AFIB Blood Pressure : / mmHG Vent. Rate : 121 BPM Atrial Rate : 115 BPM P-R Int : 000 ms QRS Dur : 126 ms QT Int : 354 ms P-R-T Axes : 000 -03 161 degrees QTc Int : 502 ms Atrial fibrillation Left bundle branch block Abnormal ECG Confirmed by JASON GONZALES MD ([id number]), offline editor LUTHER VIDAL ([id number]) on 03/24/2022 10:40:37 AM Referred By: KATHRYN Confirmed By:JASON GONZALES MD
--- NOTE | 2022-03-22 16:31 | RAD_ITS ---
STUDY: X-RAY CHEST REASON FOR EXAM: Female, 41 years old. chest pain TECHNIQUE: AP COMPARISON: 11/04/2021 FINDINGS: EKG leads project over the chest. Sternal wires and mediastinal surgical clips compatible with prior CABG. External defibrillator device overlies the chest. The lungs are clear and expanded. There is no demonstrated pleural abnormality. Stable size heart. Normal mediastinum and eldon. Normal visualized pulmonary arteries. Normal visualized aortic arch and descending thoracic aorta. Normal visualized thoracic spine. Normal visualized ribs, clavicles, and shoulders. There is no demonstrated abnormality of the visualized soft tissue structures of the upper abdomen. RAD/Chest 1 View (Portable) IMPRESSION: Stable, nonacute portable x-ray examination of the chest. Electronically Signed: Bryan Rodriguez MD ([place]) at 16:47 EDT ,
[2022-03-22 16:33] LABS: Absolute Lymphocyte Count 2.69 X10^3/uL (0.83-4.51); Absolute Neutrophil Count 8.3 X10^3/uL (2.0-7.7); Basophil# 0.07 X10^3/uL; Basophil% 0.6 % (0-1); Eosinophil# 0.24 X10^3/uL; Hematocrit 41.9 % (37-47); Hemoglobin 13.9 g/dL (12.0-15.0); Lymphocyte # 2.69 X10^3/ul (0.83-4.51); Mean Corp Hgb Conc 33.2 g/dL (32-36); Mean Corpuscular Volume 87.3 fL (81-99); Mean Platelet Vol. 11.6 fl (6.2-12.0); Monocyte# 0.85 X10^3/uL; NRBC Flagged by Analyzer 0 % (0-5); Neutrophil # 8.33 X10^3/uL (2.7-7.7); Neutrophil % 68.1 % (47-70); Platelet Count 352 K/mm3 (150-450); RBC Distribution Width CV 13.2 % (11.6-14.6); RBC Distribution Width SD 42.3 fl (35.1-43.9); White Blood Count 12.2 K/mm3 (4.4-11.0)
--- NOTE | 2022-03-22 16:35 | ED.VIS.CHEST ---
HPI History of Present Illness Chief Complaint: Palpitations Detail of Chief Complaint: Recurrent A. fib with rapid rate. Informant: patient Onset/Context/Timing Onset: Today Activity at onset: sudden Timing: Continuous Relieved By: Nothing Associated Symptoms: Negative for Nausea, Vomiting, Diaphoresis, Dyspnea, Cough, Fever, Lightheadedness or Acid Reflux Narrative Narrative: 41-year-old female history of A. fib flutter. History of prior cardiac surgery about 2 years ago notes when she started having trouble with A. fib. She is chronically on Eliquis. Said today she had an accelerated heart rate which she cannot get to slow down. Denies any chest pain. Denies any recent illness. Prior Similar Symptoms: Yes Recent Illness/Hospitalization: No CVD Risk Factors: Negative for Diabetes or Smoking PE Risk Factors: Negative for Recent Travel/Surgery, Recent Immobilization, Prior DVT or PE, Cancer or OCP + Smoking + >/=35 TAD Risk Factors: Negative for Marfan's Syndrome PFSH PFSH Medical History Afib Atrial flutter Borderline diabetes Fatigue Heart disease Presence of combination internal cardiac defibrillator (ICD) and pacemaker Shortness of breath Home Medications metoprolol tartrate 25 mg tablet 50 mg PO BID 02/21/14 [History Last Taken 12/16/19] apixaban 5 mg tablet 5 mg PO BID #60 tabs 11/30/19 [Rx Last Taken 12/16/19] aspirin 81 mg tablet,delayed release 81 mg PO DAILY 12/16/19 [History Last Taken 12/16/19] sotalol 120 mg tablet 120 mg PO BID 06/12/21 [History Last Taken Unknown] Allergy/AdvReac Type Severity Reaction Status Date / Time No Known Allergies Allergy Verified 03/22/22 15:47 Surgical History History of heart surgery Hx of tympanostomy tubes Social History Smoking Status: Former smoker alcohol intake: never ROS ROS ED ROS Narrative Fast heart rate. Review of Systems ROS Unobtainable: Denies due to encephalopathy Constitutional Constitutional ED: Denies chills ENT ENT ED: Denies ear pain Cardiovascular Cardiovascular: Reports as per HPI, palpitations and racing heartbeat; Denies chest pain Respiratory/Chest Respiratory/Chest: Denies cough Gastrointestinal Gastrointestinal: Denies abdominal pain or constipation Genitourinary Genitourinary ED: Denies dysuria Musculoskeletal Musculoskeletal: Denies arthralgias Integumentary Denies abscess Neurologic Neurologic: Denies headache(s) Psychiatric Psychiatric: Denies anxiety Endocrine Endocrinology: Denies cold intolerance Hematologic/Lymphatic Hematologic/Lymphatic: Denies easy bleeding Allergic/Immunologic Allergic/Immunologic ED: Denies mouth swelling EXAM Physical Exam Narrative Exam Narrative: 41-year-old female vital signs stable except A. fib on the monitor rate of 140. Pulse ox 98% on room air no hypoxia. No distress otherwise. H EENT exam unremarkable. Neck nontender. Lungs clear to auscultation. Heart tachycardic no murmur. Appears to be A. fib on the monitor. Abdomen soft nontender. Moving all 4 extremities. Neurologically patient is awake and alert. Const Vital Signs: 03/22/22 15:48 03/22/22 16:06 03/22/22 16:06 Temperature 96.0 F L Temperature Source Temporal Pulse Rate 97 140 H Respiratory Rate 16 23 H Respiratory Effort Normal Non-Labored Respiratory Pattern Normal Blood Pressure 121/87 H 95/73 Blood Pressure Mean 98 80 Pulse Ox 99 98 Oxygen Delivery Method Room Air Room Air 03/22/22 16:26 03/22/22 16:53 Temperature Temperature Source Pulse Rate 129 H Respiratory Rate 16 Respiratory Effort Respiratory Pattern Blood Pressure 107/66 Blood Pressure Mean 79 Pulse Ox 98 Oxygen Delivery Method Room Air Room Air Positive well nourished, well developed and obese; Negative for cachectic or contractures General Appearance ED: well developed; Negative for cachectic or contractures Nutritional Appearance: obese; Negative for cachectic HEENT Reports moist mucous membranes normocephalic and atraumatic; Negative for trauma or tenderness Eyes PERRL and EOMs intact bilaterally General Eye ED: Negative for pale conjunctiva or scleral icterus Neck no lymphadenopathy, supple and no JVD General: Negative for tenderness Chest Wall inspection of chest normal and palpation of chest normal Chest: Negative for tenderness Resp normal respiratory effort and clear to auscultation bilaterally Effort and Inspection: Negative for respiratory distress Auscultation: Negative for rales, rhonchi or wheezes Cardio Negative for regular rate or regular rhythm Rate: tachycardic GI normal to inspection, nondistended, normoactive bowel sounds, soft to palpation, non-tender, non-distended and no masses; Negative for hepatosplenomegaly Back/Spine no CVA tenderness and no thoracic nor lumbar tenderness Extremity normal to inspection General Extremety ED: Negative for edema General Extremity: Negative for edema Neuro oriented x3 Sensorium / Orientation: awake, alert, oriented to person, oriented to place and oriented to time; Negative for confused, lethargic or stuporous Skin General Skin Exam: Negative for jaundice Rashes: No rashes noted Trauma: Negative for abrasion MDM MDM MDM Narrative Medical decision making narrative: 41-year-old female history of A. fib with recurrent A. fib RVR. She is treated with Eliquis, sotalol and metoprolol. She will be given a dose of IV Cardizem and cardiac labs to be done. Repeat exam patient is doing well at 5:20 PM. Currently her heart rate is in the 70s and 80s and she remains in A. fib. She and I went over her test results. She will be observed for another half an hour or so to determine if her heart rate goes back up if she is doing well she will be discharged to home. Lab Data Attestation: I reviewed the patient's lab results. Lab results narrative: CBC shows white count 12.2. H&H 13 and 41. Chemistries show a gap of 8. BUN 19 creatinine 0.9. Glucose 112. Troponin normal at 7. Labs: Laboratory Results - last 24 hr 03/22/22 03/22/22 16:00 16:00 WBC 12.2 H RBC 4.80 Hgb 13.9 Hct 41.9 MCV 87.3 MCH 29.0 MCHC 33.2 RDW Std Deviation 42.3 RDW Coeff of Ramesh 13.2 Plt Count 352 MPV 11.6 Immature Gran % (Auto) 0.300 Neut % (Auto) 68.1 Lymph % (Auto) 22.0 [place] % (Auto) 7.0 Eos % (Auto) 2.0 Baso % (Auto) 0.6 Absolute Neuts (auto) 8.3 H Absolute Lymphs (auto) 2.69 Nucleated RBC % 0 Sodium 140 Potassium 3.8 Chloride 108 H Carbon Dioxide 24.0 Anion Gap 8 BUN 19 H Creatinine 0.90 Estim Creat Clear Calc 82.98 Est GFR (MDRD) Af Amer 89 Est GFR (MDRD) Non-Af 73 BUN/Creatinine Ratio 21.2 H Glucose 112 H Calcium 9.0 Troponin I High Sens 7 Radiography Chest X-Ray - ED: 1 View, Heart, Lungs, Mediastinum, Bony Structures, No Acute Disease and Chronic Changes Diagnostic Testing: Clinical Impression(s) from Imaging Studies Chest X-Ray 03/22/22 16:31 IMPRESSION: Stable, nonacute portable x-ray examination of the chest. Electronically Signed: Bryan Rodriguez MD (Brooks) at 16:47 EDT Reading Location ID and State: [facility] / [place] , Service support , Chest x-ray, portable, single view shows no acute abnormality. Prior sternotomy. No effusions. No cardiomegaly. Left-sided pacemaker defibrillator. Rhythm Strip Rhythm Strip: A-fib Rate: 121 Ectopy: None EKG Initial EKG: Attestation: I personally reviewed and interpreted this EKG as follows: Interpretation: Atrial Fibrillation Comments: Atrial fibrillation rate of 121 with a left bundle branch block. Discharge Plan Triage Chief Complaint: Palpitations ED Provider: Luis Vaughn Dx/Rx/DC Orders Clinical Impression: Atrial fibrillation with RVR, HOCM (hypertrophic obstructive cardiomyopathy) Instructions: ED AFIB Prescriptions: No Action metoprolol tartrate 25 MG tablet 50 mg PO BID apixaban 5 MG tablet 5 mg PO BID Qty: 60 0RF aspirin 81 MG tablet,delayed release (DR/EC) 81 mg PO DAILY sotalol 120 mg Tablet 120 mg PO BID Primary Care Provider: Kyalh Palma Referrals: Kylah Palma PA [Primary Care Provider] - 3-5 Days if not improving Activity Restrictions/Additional Instructions: Continue your normal medications specifically her cardiac medications. Continue your Eliquis. 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 Return if worse. Disposition Disposition: Home, Self Care
[2022-03-22 16:53] VITALS: BP 107/66; PULSE 129; RESP 16; O2SAT 98
[2022-03-22] MEDS: dilTIAZem 25 MG/5 ML Vial IV BOLUS (16:53)
[2022-03-22 16:56] LABS: Anion Gap 8 (5-15); BUN 19 mg/dL (7-18); BUN/Creat Ratio 21.2 RATIO (10-20); Chloride 108 mmol/L (98-107); EST Glomerular Filtration Rate 73 mL/min (>60); Est Glom Filt Rate - Afr Amer 89 mL/min (>60); Estimated Creatinine Clearance 82.98 ml/min; Glucose 112 mg/dL (74-106); Potassium 3.8 mmol/L (3.5-5.1); Sodium Level 140 mmol/L (136-145); Troponin-I HS (w/2H Reflex) 7 pg/mL (3.0-54.0)
[2022-03-22 18:08] VITALS: BP 98/72; PULSE 95; RESP 16; O2SAT 99
[2022-03-22 18:28] LABS: Reflex Troponin-HS? (from REC) Y
== END 2022-03-22 18:14 | disposition home or self-care (01) ==
PROVIDERS: Emergency Provider Emergency Medicine; PCP Physician Assistant; Visit Provider Emergency Medicine
DX: I42.1 Obstructive hypertrophic cardiomyopathy (principal); I48.91 Unspecified atrial fibrillation; Z87.891 Personal history of nicotine dependence
CPT/HCPCS: 71045; 80048; 84484; 85025; 93005; 99284; A4216

== ENCOUNTER 2022-06-26 20:37 | Emergency (ER) | payer BC, SELFPAY ==
[2022-06-26 20:38] VITALS: BP 91/61; PULSE 137; RESP 18; TEMP 36.7; O2SAT 99; BMI 42.1
--- NOTE | 2022-06-26 20:46 | EKG12_ITS ---
Test Reason : CP Blood Pressure : / mmHG Vent. Rate : 153 BPM Atrial Rate : 159 BPM P-R Int : 000 ms QRS Dur : 122 ms QT Int : 288 ms P-R-T Axes : 000 -05 158 degrees QTc Int : 459 ms Atrial fibrillation Left bundle branch block Abnormal ECG Confirmed by CHRISTIAN ZHOU, JASON ([id number]), make up editor VICK STOCKTON ([id number]) on 06/30/2022 9:47:34 AM Referred By: LJ Confirmed By:JASON GONZALES MD
[2022-06-26 20:51] VITALS: BP 117/99; PULSE 168; RESP 20; O2SAT 98
--- NOTE | 2022-06-26 20:51 | EDS_ITS ---
HPI History of Present Illness Chief Complaint: Shortness of Breath Narrative Narrative: 41-year-old female with history of hypertrophic obstructive cardiomyopathy, WPW, ARenee eaton presenting with dyspnea. She states she had COVID 2 weeks ago but recovered well. She states she felt well enough to go on a heart walk today and during the walk she started to feel little bit short of breath. She is able to tell when her heart is fast and irregular. Patient is anticoagulated on Eliquis. She takes metoprolol tartrate 50 mg p.o. twice daily as well as sotalol 120 mg p.o. twice daily. She had no medication changes. She is not having any chest pain. No fever or chills. No cough. She states she has no history of heart failure. [facility] Medical History Afib Atrial flutter Borderline diabetes Fatigue Heart disease Presence of combination internal cardiac defibrillator (ICD) and pacemaker Shortness of breath Home Medications metoprolol tartrate 25 mg tablet 50 mg PO BID 02/21/14 [History Last Taken 12/16/19] apixaban 5 mg tablet 5 mg PO BID #60 tabs 11/30/19 [Rx Last Taken 12/16/19] aspirin 81 mg tablet,delayed release 81 mg PO DAILY 12/16/19 [History Last Taken 12/16/19] sotalol 120 mg tablet 120 mg PO BID 06/12/21 [History Last Taken Unknown] semaglutide (weight loss) 2.4 mg/0.75 mL subcutaneous pen injector (Wegovy) 2.4 mg subcut MO 06/26/22 [History Last Taken Unknown] Allergy/AdvReac Type Severity Reaction Status Date / Time No Known Allergies Allergy Verified 06/26/22 20:40 Surgical History History of heart surgery Hx of tympanostomy tubes Social History Smoking Status: Never smoker alcohol intake: never ROS ROS ED Constitutional Constitutional ED: Denies chills or fever(s) Eyes Eyes: Denies change in vision ENT ENT ED: Denies rhinorrhea or sore throat Cardiovascular Cardiovascular: Reports palpitations and racing heartbeat; Denies chest pain Respiratory/Chest Respiratory/Chest: Reports dyspnea; Denies cough Gastrointestinal Gastrointestinal: Denies abdominal pain or constipation Genitourinary Genitourinary ED: Denies dysuria or hematuria Musculoskeletal Musculoskeletal: Denies arthralgias or back pain Integumentary Denies abscess or Abrasions Neurologic Neurologic: Denies headache(s) Psychiatric Psychiatric: Denies anxiety or depression EXAM Physical Exam Const Vital Signs: 06/26/22 20:38 06/26/22 20:46 06/26/22 20:51 Temperature 98.0 F Temperature Source Temporal Pulse Rate 137 H 168 H Respiratory Rate 18 20 H Respiratory Effort Short of Breath Blood Pressure 91/61 117/99 H Blood Pressure Mean 71 105 Pulse Ox 99 98 Oxygen Delivery Method Room Air Room Air 06/26/22 21:27 06/26/22 22:52 Temperature Temperature Source Pulse Rate 115 H 66 Respiratory Rate 17 20 H Respiratory Effort Blood Pressure 96/63 115/68 Blood Pressure Mean 74 83 Pulse Ox 95 100 Oxygen Delivery Method Room Air Room Air Positive well nourished General Appearance ED: NAD; Negative for pallor HEENT Reports moist mucous membranes Eyes PERRL and EOMs intact bilaterally General Eye ED: Negative for pale conjunctiva or scleral icterus Resp normal respiratory effort and clear to auscultation bilaterally Auscultation: Negative for rales, rhonchi or wheezes Cardio Rate: tachycardic Rhythm: abnormal rhythm irregularly irregular Extremity General Extremety ED: Negative for edema or tenderness General Extremity: Negative for edema Neuro oriented x3 and CN's II-XII intact bilaterally Sensorium / Orientation: alert Speech: speech normal Motor Exam: strength 5/5 throughout Psych mental status grossly normal Skin no wounds and skin turgor normal General Skin Exam: Negative for jaundice or pallor MDM MDM MDM Narrative Medical decision making narrative: Patient presenting with shortness of breath and rapid heart rate. EKG was performed on my interpretation this is atrial fibrillation with a rapid ventricular response at 153 bpm. Patient is well-appearing. She not complaining of chest pain. She feels short of breath and fast heart rate. She has had this before. Patient given 2 mg of IV Cardizem, 1 L of normal saline. Blood work and chest x-ray will be obtained. Blood work shows slight leukocytosis which has had this in the past. Hemoglobin hematocrit are stable. Platelets are normal. Creatinine slightly elevated 1.03. BUN/creatinine ratio is normal. High-sensitivity troponin is 14. Chest x-ray on my interpretation does not show any acute cardiopulmonary process and the radiologist agree. Patient still had heart rate for anywhere from 90-120. She was given an additional dose of Cardizem 10 mg IV. She was monitored. I initially ordered a dose of labetalol and another liter of IV fluids but before she could be given this she spontaneously converted and now she is in sinus rhythm on the monitor at a rate of 66 bpm. She feels much better at this point. Repeat EKG shows a normal sinus rhythm with a ventricular of 65 bpm without sign of ischemic change on my interpretation. Patient is feeling better nausea stable for discharge home. Return precautions discussed. 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 She is to continue her regular medications as provided. Impression: 1. A. fib with RVR 2. Dyspnea 3. Leukocytosis 4. Elevated creatinine Lab Data Attestation: I reviewed the patient's lab results. Labs: Laboratory Results - last 24 hr 06/26/22 06/26/22 20:45 20:45 WBC 16.2 H RBC 4.88 Hgb 14.2 Hct 42.5 MCV 87.1 MCH 29.1 MCHC 33.4 RDW Std Deviation 41.8 RDW Coeff of Ramesh 13.2 Plt Count 406 MPV 11.0 Immature Gran % (Auto) 0.300 Neut % (Auto) 67.0 Lymph % (Auto) 23.4 [place] % (Auto) 7.9 Eos % (Auto) 0.9 Baso % (Auto) 0.5 Absolute Neuts (auto) 10.9 H Absolute Lymphs (auto) 3.79 Nucleated RBC % 0 Sodium 142 Potassium 4.0 Chloride 106 Carbon Dioxide 24.0 Anion Gap 12 BUN 18 Creatinine 1.03 H Estim Creat Clear Calc 72.51 Est GFR (MDRD) Af Amer 76 Est GFR (MDRD) Non-Af 63 BUN/Creatinine Ratio 17.5 Glucose 170 H Calcium 9.2 Troponin I High Sens 14 Radiography Diagnostic Testing: Clinical Impression(s) from Imaging Studies Chest X-Ray 06/26/22 20:53 IMPRESSION: No acute cardiopulmonary pathology Electronically Signed: Tony Rebolledo MD at 21:26 EDT , Discharge Plan Triage Chief Complaint: Shortness of Breath ED Provider: Isra Horner Dx/Rx/DC Orders Instructions: ED AFIB Prescriptions: No Action metoprolol tartrate 25 MG tablet 50 mg PO BID apixaban 5 MG tablet 5 mg PO BID Qty: 60 0RF aspirin 81 MG tablet,delayed release (DR/EC) 81 mg PO DAILY sotalol 120 mg Tablet 120 mg PO BID Wegovy 2.4 mg/0.75 mL pen injector 2.4 mg SUBCUT MO Primary Care Provider: Kylah Palma Referrals: Kylah Palma, PA [Primary Care Provider] - Disposition Disposition: Home, Self Care
--- NOTE | 2022-06-26 20:53 | RAD_ITS ---
STUDY: X-RAY CHEST REASON FOR EXAM: Female, 41 years old. chest pain TECHNIQUE: AP portable COMPARISON: 03/22/2022 FINDINGS: The lungs are clear and expanded. There is no demonstrated pleural abnormality. Postop change status post median sternotomy and CABG. Heart is mildly enlarged. Normal mediastinum and eldon. Normal visualized pulmonary arteries. Normal visualized aortic arch and descending thoracic aorta. Normal visualized thoracic spine. Normal visualized ribs, clavicles, and shoulders. There is no demonstrated abnormality of the visualized soft tissue structures of the upper abdomen. RAD/Chest 1 View (Portable) IMPRESSION: No acute cardiopulmonary pathology Electronically Signed: Tony Rebolledo MD at 21:26 EDT ,
[2022-06-26] MEDS: 0.9% Normal Saline 1,000 ML 999 ML IV ×2 (20:54→22:37)
[2022-06-26] MEDS: dilTIAZem 25 MG/5 ML Vial 20 MG IV BOLUS (20:54)
[2022-06-26 20:55] LABS: Absolute Lymphocyte Count 3.79 X10^3/uL (0.83-4.51); Absolute Neutrophil Count 10.9 X10^3/uL (2.0-7.7); Basophil# 0.08 X10^3/uL; Basophil% 0.5 % (0-1); Eosinophil# 0.15 X10^3/uL; Eosinophils% 0.9 % (0-5); Hematocrit 42.5 % (37-47); Hemoglobin 14.2 g/dL (12.0-15.0); Lymphocyte # 3.79 X10^3/ul (0.83-4.51); Lymphocyte % 23.4 % (19-41); Mean Corp Hgb Conc 33.4 g/dL (32-36); Mean Corpuscular Hgb 29.1 pg (27.0-32.0); Mean Corpuscular Volume 87.1 fL (81-99); Monocyte# 1.28 X10^3/uL; Monocyte% 7.9 % (0-10); NRBC Flagged by Analyzer 0 % (0-5); Neutrophil # 10.87 X10^3/uL (2.7-7.7); Platelet Count 406 K/mm3 (150-450); RBC Distribution Width CV 13.2 % (11.6-14.6); RBC Distribution Width SD 41.8 fl (35.1-43.9); Red Blood Count 4.88 M/mm3 (4.2-5.4); White Blood Count 16.2 K/mm3 (4.4-11.0)
[2022-06-26] MEDS: Metoclopramide 10 MG/2 ML Vial IV (21:21)
[2022-06-26 21:23] LABS: Anion Gap 12 (5-15); BUN 18 mg/dL (7-18); BUN/Creat Ratio 17.5 RATIO (10-20); Calcium,Total 9.2 mg/dL (8.5-10.1); Chloride 106 mmol/L (98-107); Creatinine, Serum 1.03 mg/dL (0.55-1.02); EST Glomerular Filtration Rate 63 mL/min (>60); Est Glom Filt Rate - Afr Amer 76 mL/min (>60); Estimated Creatinine Clearance 72.51 ml/min; Glucose 170 mg/dL (74-106); Sodium Level 142 mmol/L (136-145); Troponin-I HS (w/2H Reflex) 14 pg/mL (3.0-54.0)
[2022-06-26 21:27] VITALS: BP 96/63; PULSE 115; RESP 17; O2SAT 95
[2022-06-26] MEDS: dilTIAZem 25 MG/5 ML Vial 10 MG IV BOLUS (22:13)
[2022-06-26 22:52] VITALS: BP 115/68; PULSE 66; RESP 20; O2SAT 100
[2022-06-26 22:52] LABS: Reflex Troponin-HS? (from REC) Y
--- NOTE | 2022-06-26 22:54 | EKG12_ITS ---
Test Reason : RHYTHM CONVERSION Blood Pressure : / mmHG Vent. Rate : 065 BPM Atrial Rate : 065 BPM P-R Int : 174 ms QRS Dur : 134 ms QT Int : 480 ms P-R-T Axes : 014 -03 124 degrees QTc Int : 499 ms Normal sinus rhythm Left bundle branch block Abnormal ECG Confirmed by CHRISTIAN ZHOU, JASON ([id number]), associate entertainment editor VICK STOCKTON ([id number]) on 06/30/2022 9:47:49 AM Referred By: LJ Confirmed By:JASON GONZALES MD
[2022-06-26 23:06] VITALS: BP 107/76; PULSE 69; RESP 23; O2SAT 99
[2022-06-26 23:18] VITALS: BP 100/72; PULSE 67; RESP 17; O2SAT 99
[2022-06-26 23:29] LABS: Troponin-I HS 14 pg/mL (3.0-54.0)
== END 2022-06-26 23:23 | disposition home or self-care (01) ==
PROVIDERS: Emergency Provider Student in an Organized Health Care Education/Training Program; PCP Physician Assistant; Visit Provider Student in an Organized Health Care Education/Training Program
DX: I48.91 Unspecified atrial fibrillation (principal); D72.829 Elevated white blood cell count, unspecified; R11.0 Nausea; Z86.16 Personal history of COVID-19; R06.00 Dyspnea, unspecified
CPT/HCPCS: 71045; 80048; 84484; 85025; 93005; 96361; 96374; 96375; 99284; J7030; A4216

== ENCOUNTER 2022-09-12 15:26 | Emergency (ER) | payer BC, SELFPAY ==
[2022-09-12 15:27] VITALS: BP 112/99; PULSE 62; RESP 16; TEMP 36; O2SAT 98; BMI 42.5
--- NOTE | 2022-09-12 15:40 | EKG12_ITS ---
Test Reason : Blood Pressure : / mmHG Vent. Rate : 094 BPM Atrial Rate : 094 BPM P-R Int : 182 ms QRS Dur : 130 ms QT Int : 400 ms P-R-T Axes : 044 019 160 degrees QTc Int : 500 ms Normal sinus rhythm Left bundle branch block Abnormal ECG Confirmed by DAGO ZHOU, SHANNON ([id number]), editorial assistant VICK STOCKTON ([id number]) on 09/16/2022 11:11:30 AM Referred By: ИРИНА Confirmed By:WON LOZA MD
--- NOTE | 2022-09-12 15:42 | EX.ED.DYSGE1 ---
HPI History of Present Illness Chief Complaint: Palpitations Informant: patient Onset/Context/Timing Onset: Today Context: Sudden Onset Current Severity: Mild Maximum Severity: Moderate Narrative Narrative: Patient present secondary to palpitations with racing heart. She is a history of paroxysmal A. fib. She is on sotalol and metoprolol for rate control and on Eliquis for anticoagulation. She states was at work this afternoon when she started feeling her heart racing and beating irregularly. She states she was slightly dizzy when it first started but that seems to have improved. She has been compliant with her medications. She follows with a hospital education coordinator at [facility]. [facility] Medical History Afib Atrial flutter Borderline diabetes Fatigue Heart disease Presence of combination internal cardiac defibrillator (ICD) and pacemaker Shortness of breath Home Medications metoprolol tartrate 25 mg tablet 50 mg PO BID 02/21/14 [History Last Taken 12/16/19] apixaban 5 mg tablet 5 mg PO BID #60 tabs 11/30/19 [Rx Last Taken 12/16/19] aspirin 81 mg tablet,delayed release 81 mg PO DAILY 12/16/19 [History Last Taken 12/16/19] sotalol 120 mg tablet 120 mg PO BID 06/12/21 [History Last Taken Unknown] semaglutide (weight loss) 2.4 mg/0.75 mL subcutaneous pen injector (Wegovy) 2.4 mg subcut MO 06/26/22 [History Last Taken Unknown] Allergy/AdvReac Type Severity Reaction Status Date / Time No Known Allergies Allergy Verified 09/12/22 15:27 Surgical History History of heart surgery Hx of tympanostomy tubes Social History Smoking Status: Never smoker alcohol intake: never ROS ROS ED Constitutional Constitutional ED: Denies chills or fever(s) Eyes Eyes: Denies change in vision or discharge from eye(s) ENT ENT ED: Denies discharge from eye(s), rhinorrhea or sore throat Cardiovascular Cardiovascular: Reports palpitations and racing heartbeat; Denies chest pain Respiratory/Chest Respiratory/Chest: Denies cough or dyspnea Gastrointestinal Gastrointestinal: Denies abdominal pain, diarrhea, nausea or vomiting Genitourinary Genitourinary ED: Denies dysuria Musculoskeletal Musculoskeletal: Denies back pain or extremity pain Integumentary Denies Abrasions or rash Neurologic Neurologic: Denies headache(s) or weakness Psychiatric Psychiatric: Denies anxiety or depression Allergic/Immunologic Allergic/Immunologic ED: Denies lip swelling or urticaria EXAM Physical Exam Const Vital Signs: 09/12/22 15:27 Temperature 96.8 F L Temperature Source Temporal Pulse Rate 62 Respiratory Rate 16 Blood Pressure 112/99 H Blood Pressure Mean 103 Pulse Ox 98 Oxygen Delivery Method Room Air Positive well nourished and well developed General Appearance ED: well developed HEENT Reports normocephalic and head/scalp atraumatic Eyes PERRL and EOMs intact bilaterally Neck supple Chest Wall inspection of chest normal and palpation of chest normal Resp normal respiratory effort and clear to auscultation bilaterally Cardio regular rate and regular rhythm GI normal to inspection, nondistended, normoactive bowel sounds Palpation: soft Extremity normal to inspection Neuro oriented x3 and no sensory deficits noted Sensorium / Orientation: alert Motor Exam: strength 5/5 throughout Psych mental status grossly normal Skin no rashes or lesions noted MDM MDM MDM Narrative Medical decision making narrative: EKG obtained and 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 Lab work ordered along with a liter of IV fluids. Lab Data Attestation: I reviewed the patient's lab results. Labs: Laboratory Results - last 24 hr 09/12/22 09/12/22 15:49 15:49 WBC 11.9 H RBC 5.00 Hgb 14.5 Hct 43.5 MCV 87.0 MCH 29.0 MCHC 33.3 RDW Std Deviation 41.3 RDW Coeff of Ramesh 13.2 Plt Count 343 MPV 11.0 Immature Gran % (Auto) 0.300 Neut % (Auto) 67.1 Lymph % (Auto) 24.7 [place] % (Auto) 6.0 Eos % (Auto) 1.4 Baso % (Auto) 0.5 Absolute Neuts (auto) 8.0 H Absolute Lymphs (auto) 2.93 Nucleated RBC % 0 Sodium 138 Potassium 3.6 Chloride 105 Carbon Dioxide 26.0 Anion Gap 7 BUN 28 H Creatinine 0.80 Estim Creat Clear Calc 92.41 Est GFR (MDRD) Af Amer 101 Est GFR (MDRD) Non-Af 83 BUN/Creatinine Ratio 34.8 H Glucose 100 Calcium 9.4 Magnesium 1.9 Treatment and Re-Evaluation Narrative: Patient's heart rate has remained in the 90s in sinus rhythm while here in the emergency room. CBC was a mild elevation of white count of 11.9 with no left shift. Chemistry studies reveal normal magnesium and potassium. Her BUN is elevated at 28. I suspect that she is dehydrated given her borderline low blood pressure as well. Following her liter IV fluid she will be discharged home to continue her current medications. Return instructions given. Patient is comfortable with this plan. Discharge Plan Triage Chief Complaint: Palpitations ED Provider: Conchita Ferguson Dx/Rx/DC Orders Clinical Impression: Palpitations, Dehydration Instructions: ED Dehydration (Adult), ED Palpitations Prescriptions: No Action metoprolol tartrate 25 MG tablet 50 mg PO BID apixaban 5 MG tablet 5 mg PO BID Qty: 60 0RF aspirin 81 MG tablet,delayed release (DR/EC) 81 mg PO DAILY sotalol 120 mg Tablet 120 mg PO BID Wegovy 2.4 mg/0.75 mL pen injector 2.4 mg SUBCUT MO Primary Care Provider: Kylah Palma Referrals: Kylah Palma, PA [Primary Care Provider] - Activity Restrictions/Additional Instructions: Follow-up with your hospital education coordinator as needed. Please continue current cardiac medications. Increase p.o. fluids to maintain hydration. Disposition Disposition: Home, Self Care
[2022-09-12 16:00] LABS: Absolute Lymphocyte Count 2.93 X10^3/uL (0.83-4.51); Basophil# 0.06 X10^3/uL; Basophil% 0.5 % (0-1); Eosinophil# 0.17 X10^3/uL; Eosinophils% 1.4 % (0-5); Hematocrit 43.5 % (37-47); Hemoglobin 14.5 g/dL (12.0-15.0); Lymphocyte # 2.93 X10^3/ul (0.83-4.51); Lymphocyte % 24.7 % (19-41); Mean Corp Hgb Conc 33.3 g/dL (32-36); Monocyte# 0.71 X10^3/uL; NRBC Flagged by Analyzer 0 % (0-5); Neutrophil # 7.95 X10^3/uL (2.7-7.7); Neutrophil % 67.1 % (47-70); Platelet Count 343 K/mm3 (150-450); RBC Distribution Width CV 13.2 % (11.6-14.6); RBC Distribution Width SD 41.3 fl (35.1-43.9); White Blood Count 11.9 K/mm3 (4.4-11.0)
[2022-09-12 16:07] LABS: Anion Gap 7 (5-15); BUN 28 mg/dL (7-18); BUN/Creat Ratio 34.8 RATIO (10-20); Calcium,Total 9.4 mg/dL (8.5-10.1); Chloride 105 mmol/L (98-107); EST Glomerular Filtration Rate 83 mL/min (>60); Est Glom Filt Rate - Afr Amer 101 mL/min (>60); Estimated Creatinine Clearance 92.41 ml/min; Glucose 100 mg/dL (74-106); Magnesium 1.9 mg/dL (1.6-2.6); Potassium 3.6 mmol/L (3.5-5.1); Sodium Level 138 mmol/L (136-145)
[2022-09-12] MEDS: 0.9% Normal Saline 1,000 ML 1000 ML IV (16:43)
[2022-09-12 16:44] VITALS: BP 92/52; PULSE 96; RESP 17
[2022-09-12 17:00] VITALS: PULSE 86
[2022-09-12 17:54] VITALS: BP 110/73; PULSE 78
== END 2022-09-12 18:03 | disposition home or self-care (01) ==
PROVIDERS: Emergency Provider Emergency Medicine; PCP Physician Assistant; Visit Provider Emergency Medicine
DX: R00.2 Palpitations (principal); I48.91 Unspecified atrial fibrillation; E86.0 Dehydration; Z95.810 Presence of automatic (implantable) cardiac defibrillator; Z79.82 Long term (current) use of aspirin
CPT/HCPCS: 80048; 83735; 85025; 93005; 96360; 99284; A4216

== ENCOUNTER 2022-10-26 04:00 | Emergency (ER) | payer BC, SELFPAY ==
[2022-10-26 04:02] VITALS: BP 104/72; PULSE 144; RESP 18; TEMP 36.6; O2SAT 99; BMI 41.8
--- NOTE | 2022-10-26 04:11 | EKG12_ITS ---
Test Reason : PALPS Blood Pressure : / mmHG Vent. Rate : 136 BPM Atrial Rate : 000 BPM P-R Int : 000 ms QRS Dur : 118 ms QT Int : 348 ms P-R-T Axes : 000 005 178 degrees QTc Int : 523 ms Atrial fibrillation with rapid ventricular response Incomplete left bundle branch block Minimal voltage criteria for LVH, may be normal variant ( [employer]ros[employer] product ) Marked ST abnormality, possible lateral subendocardial injury Abnormal ECG Confirmed by CHRISTIAN ZHOU, JASON ([id number]), web content editor VICK STOCKTON ([id number]) on 10/27/2022 10:50:49 AM Referred By: TL Confirmed By:JASON GONZALES MD
--- NOTE | 2022-10-26 04:14 | EDS_ITS ---
HPI History of Present Illness Chief Complaint: Palpitations Informant: patient Narrative Narrative: Sudden palpitations 12:30 AM less than 4 hours prior to arrival. Lightheaded with standing or exertion. No chest pains. History of atrial fibrillation. History of WPW and HOCM. She had cardiac surgery at [facility] 2 years ago. Reports also had valve repair. She has a implantable AICD. She is on Eliquis twice a day. She is on metoprolol 37.5 mg twice a day. She is on sotalol 120 twice daily. She is taking her medications. Her last dose 7:30 PM. Denies cough. Denies recent vomiting or diarrhea. She is followed by [facility] main lamination spinner. Reports last recurrent symptoms 2 months ago self-limiting. She has been cardioverted in the past. Last meal at 6 PM. Prior similar symptoms: Yes PFSH PFSH Medical History Afib Atrial flutter Borderline diabetes Fatigue Heart disease Presence of combination internal cardiac defibrillator (ICD) and pacemaker Shortness of breath Home Medications metoprolol tartrate 25 mg tablet 37.5 mg PO BID 02/21/14 [History Last Taken 12/16/19] apixaban 5 mg tablet 5 mg PO BID #60 tabs 11/30/19 [Rx Last Taken 12/16/19] aspirin 81 mg tablet,delayed release 81 mg PO DAILY 12/16/19 [History Last Taken 12/16/19] sotalol 120 mg tablet 120 mg PO BID 06/12/21 [History Last Taken Unknown] semaglutide (weight loss) 2.4 mg/0.75 mL subcutaneous pen injector (Wegovy) 2.4 mg subcut MO 06/26/22 [History Last Taken Unknown] Allergy/AdvReac Type Severity Reaction Status Date / Time No Known Allergies Allergy Verified 10/26/22 04:04 Surgical History H/O cardiac radiofrequency ablation History of heart surgery Hx of tympanostomy tubes Social History Smoking Status: Never smoker alcohol intake: never ROS ROS ED Constitutional Constitutional ED: Denies chills, fever(s) or sweats Eyes Eyes: Denies change in vision ENT ENT ED: Denies dysphagia or sore throat Cardiovascular Cardiovascular: Reports palpitations; Denies chest pain, leg edema or racing heartbeat Respiratory/Chest Respiratory/Chest: Denies cough, dyspnea or dyspnea on exertion Gastrointestinal Gastrointestinal: Denies abdominal pain, diarrhea, nausea or vomiting Genitourinary Genitourinary ED: Denies dysuria, hematuria or urinary frequency Musculoskeletal Musculoskeletal: Denies back pain, extremity pain or neck pain Integumentary Denies rash or wounds Neurologic Neurologic: Denies headache(s), paresthesias or weakness EXAM Physical Exam Const Vital Signs: 10/26/22 04:02 10/26/22 04:24 Temperature 97.9 F Temperature Source Temporal Pulse Rate 144 H 84 Respiratory Rate 18 16 Blood Pressure 104/72 100/73 Blood Pressure Mean 82 82 Pulse Ox 99 97 Oxygen Delivery Method Room Air Room Air Positive well nourished and well developed General Appearance ED: well developed and NAD HEENT Reports moist mucous membranes normocephalic and atraumatic Eyes PERRL, EOMs intact bilaterally and conjunctivae normal General Eye ED: Yes normal appearance of both eyes Neck no lymphadenopathy and supple General: Negative for tenderness Chest Wall Chest: Negative for tenderness Resp normal respiratory effort and normal air movement Effort and Inspection: symmetric chest movement; Negative for respiratory distress Cardio no murmurs Rate: tachycardic Rhythm: abnormal rhythm Peripheral Pulses: pulses 2+ throughout GI normal to inspection, nondistended, normoactive bowel sounds and non-tender Palpation: Negative for guarding or rebound tenderness present Back/Spine no CVA tenderness and no thoracic nor lumbar tenderness Extremity normal to inspection General Extremety ED: Negative for edema or tenderness General Extremity: Negative for edema Neuro oriented x3 and no sensory deficits noted Sensorium / Orientation: awake and alert Skin no rashes or lesions noted and no wounds MDM MDM MDM Narrative Medical decision making narrative: Differential with palpitations atrial fibrillation SVT, V. fib V. tach, history we will Parkinson syndrome. However EKG notes patient is A. fib with RVR. Soft blood pressure 104. Discussed and considered cardioversion with her on Eliquis. However she states she is converted with medications in the past we will attempt 1 dose of IV Lopressor. Labs were obtained. 0420: Shortly after start of Lopressor she was 2 mg in I checked on her with nursing, she converted on the monitor. This was stopped after 2 mg. Heart rate in the 80s. We will repeat EKG. Laboratory studies are stable with normal electrolytes. Chest x-ray 1 view interpreted by myself shows no acute process. AICD device noted left lateral chest wall. Patient clinically remains improved and back in sinus rhythm on reevaluation. She is discharged with outpatient follow-up. All questions were answered. Lab Data Attestation: I reviewed the patient's lab results. Labs: Laboratory Results - last 24 hr 10/26/22 10/26/22 04:10 04:10 WBC 10.2 RBC 5.10 Hgb 14.9 Hct 44.5 MCV 87.3 MCH 29.2 MCHC 33.5 RDW Std Deviation 43.0 RDW Coeff of Ramesh 13.4 Plt Count 346 MPV 11.1 Immature Gran % (Auto) 0.200 Neut % (Auto) 68.3 Lymph % (Auto) 21.7 [place] % (Auto) 6.7 Eos % (Auto) 2.5 Baso % (Auto) 0.6 Absolute Neuts (auto) 7.0 Absolute Lymphs (auto) 2.21 Nucleated RBC % 0 Sodium 139 Potassium 4.1 Chloride 108 H Carbon Dioxide 24.0 Anion Gap 7 BUN 19 H Creatinine 0.84 Estim Creat Clear Calc 88.01 Est GFR (MDRD) Af Amer 96 Est GFR (MDRD) Non-Af 80 BUN/Creatinine Ratio 22.8 H Glucose 162 H Calcium 8.6 Magnesium 2.1 EKG Initial EKG: Attestation: I personally reviewed and interpreted this EKG as follows: Comments: A. fib RVR rate of 136, left bundle branch block. Prior: Changed Follow-up EKG: Attestation: I personally reviewed and interpreted this EKG as follows: Comments: At 0 424: Sinus rhythm rate of 82, left bundle branch block. Previous similar left bundle branch block. Discharge Plan Triage Chief Complaint: Palpitations ED Provider: Jerome Brower Dx/Rx/DC Orders Clinical Impression: HOCM (hypertrophic obstructive cardiomyopathy), WPW (Wkqaf-Vrudwefon-Zfkqt syndrome), Paroxysmal atrial fibrillation, AICD (automatic cardioverter/defibrillator) present, Atrial fibrillation, currently in sinus rhythm Instructions: ED AFIB Prescriptions: No Action metoprolol tartrate 25 MG tablet 37.5 mg PO BID apixaban 5 MG tablet 5 mg PO BID Qty: 60 0RF aspirin 81 MG tablet,delayed release (DR/EC) 81 mg PO DAILY sotalol 120 mg Tablet 120 mg PO BID Wegovy 2.4 mg/0.75 mL pen injector 2.4 mg SUBCUT MO Primary Care Provider: Kylah Palma Referrals: Kylah Palma, HALEY [Primary Care Provider] - Activity Restrictions/Additional Instructions: Atrial fibrillation back to normal sinus rhythm. Continue home medications. Follow-up with your lamination spinner at [facility]. Return if any worsening symptoms. Disposition Disposition: Home, Self Care
[2022-10-26] MEDS: Metoprolol Tartrate 5 MG/5 ML Vial IV (04:16)
[2022-10-26 04:23] LABS: Absolute Lymphocyte Count 2.21 X10^3/uL (0.83-4.51); Basophil# 0.06 X10^3/uL; Basophil% 0.6 % (0-1); Eosinophil# 0.25 X10^3/uL; Eosinophils% 2.5 % (0-5); Hematocrit 44.5 % (37-47); Hemoglobin 14.9 g/dL (12.0-15.0); Lymphocyte # 2.21 X10^3/ul (0.83-4.51); Lymphocyte % 21.7 % (19-41); Mean Corp Hgb Conc 33.5 g/dL (32-36); Mean Corpuscular Hgb 29.2 pg (27.0-32.0); Mean Corpuscular Volume 87.3 fL (81-99); Mean Platelet Vol. 11.1 fl (6.2-12.0); Monocyte# 0.68 X10^3/uL; Monocyte% 6.7 % (0-10); NRBC Flagged by Analyzer 0 % (0-5); Neutrophil # 6.96 X10^3/uL (2.7-7.7); Neutrophil % 68.3 % (47-70); Platelet Count 346 K/mm3 (150-450); RBC Distribution Width CV 13.4 % (11.6-14.6); White Blood Count 10.2 K/mm3 (4.4-11.0)
--- NOTE | 2022-10-26 04:23 | EKG12_ITS ---
Test Reason : REPEAT Blood Pressure : / mmHG Vent. Rate : 082 BPM Atrial Rate : 082 BPM P-R Int : 170 ms QRS Dur : 132 ms QT Int : 432 ms P-R-T Axes : 049 013 135 degrees QTc Int : 504 ms Normal sinus rhythm Left bundle branch block Abnormal ECG Confirmed by CHRISTIAN ZHOU, JASON ([id number]), telegraph editor VICK STOCKTON ([id number]) on 10/27/2022 10:51:02 AM Referred By: Confirmed By:JASON GONZALES MD
[2022-10-26 04:24] VITALS: BP 100/73; PULSE 84; RESP 16; O2SAT 97
[2022-10-26] MEDS: 0.9% Normal Saline 1,000 ML 100 ML IV (04:26)
[2022-10-26 04:36] LABS: Anion Gap 7 (5-15); BUN 19 mg/dL (7-18); BUN/Creat Ratio 22.8 RATIO (10-20); Calcium,Total 8.6 mg/dL (8.5-10.1); Chloride 108 mmol/L (98-107); Creatinine, Serum 0.84 mg/dL (0.55-1.02); EST Glomerular Filtration Rate 80 mL/min (>60); Est Glom Filt Rate - Afr Amer 96 mL/min (>60); Estimated Creatinine Clearance 88.01 ml/min; Glucose 162 mg/dL (74-106); Magnesium 2.1 mg/dL (1.6-2.6); Potassium 4.1 mmol/L (3.5-5.1); Sodium Level 139 mmol/L (136-145)
--- NOTE | 2022-10-26 04:36 | RAD_ITS ---
INDICATION: palpitations EXAMINATION/TECHNIQUE: X-RAY - XR Chest 1 View COMPARISON: None. FINDINGS: LINES/DEVICES: AICD on the left. LUNGS: No consolidation, edema or effusion. No pneumothorax. MEDIASTINUM AND CARDIOVASCULAR STRUCTURES: Cardiac silhouette not enlarged. Central airways and mediastinal contour are unremarkable. BONES AND SOFT TISSUES: Unremarkable. RAD/Chest 1 View (Portable) IMPRESSION: No radiographic evidence of acute cardiopulmonary disease. Electronically Signed: Lashonda Padgett MD at 4:53 EST ,
[2022-10-26 04:51] VITALS: BP 105/66; PULSE 87; RESP 16; O2SAT 97
== END 2022-10-26 04:57 | disposition home or self-care (01) ==
PROVIDERS: Emergency Provider Emergency Medicine; PCP Physician Assistant; Visit Provider Emergency Medicine
DX: I48.0 Paroxysmal atrial fibrillation (principal); I42.1 Obstructive hypertrophic cardiomyopathy; Z95.810 Presence of automatic (implantable) cardiac defibrillator; R73.03 Prediabetes; Z79.899 Other long term (current) drug therapy; Z79.82 Long term (current) use of aspirin; Z79.01 Long term (current) use of 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; I45.6 Pre-excitation syndrome
CPT/HCPCS: 96360; 71045; 80048; 83735; 85025; 93005; 96374; 99284; J7030; A4216

== ENCOUNTER 2023-03-07 20:49 | Emergency (ER) | payer BC, SELFPAY ==
[2023-03-07 20:50] VITALS: BP 121/85; PULSE 88; RESP 18; TEMP 36.2; O2SAT 100; BMI 38.7
--- NOTE | 2023-03-07 21:05 | EKG12_ITS ---
Test Reason : DYSRHYTHMIA Blood Pressure : / mmHG Vent. Rate : 073 BPM Atrial Rate : 073 BPM P-R Int : 166 ms QRS Dur : 136 ms QT Int : 448 ms P-R-T Axes : 035 -04 150 degrees QTc Int : 493 ms Normal sinus rhythm Left bundle branch block Abnormal ECG Confirmed by CHRISTIAN ZHOU, JASON ([id number]), photographic editor VICK STOCKTON ([id number]) on 03/10/2023 8:40:35 AM Referred By: KATHRYN Confirmed By:JASON GONZALES MD
--- NOTE | 2023-03-07 21:06 | ED.VIS.CHEST ---
HPI History of Present Illness Chief Complaint: Dizziness Detail of Chief Complaint: Palpitations Informant: patient and family Onset/Context/Timing Onset: Today Activity at onset: gradual Timing: Intermittent Current Severity: Gone Maximum Severity: Mild Worsened By: Nothing Relieved By: Nothing Associated Symptoms: Positive for Palpitations; Negative for Nausea, Vomiting, Diaphoresis, Dyspnea, Cough, Fever, Lightheadedness or Acid Reflux Narrative Narrative: 42-year-old female history of hokum, WPW, A-fib recent gastric bypass surgery to [facility] 2 weeks ago and currently on Lovenox anticoagulation. States that today that she has had some palpitations since around 830 this tonight. States she is drinking plenty of fluids just does not feel like she is urinating as much as she should. She denies any melena. No hemoptysis. No chest pain. No significant shortness of breath. No vomiting diarrhea nor fever. No dysuria. Said she has been feeling and doing well since the surgery. She has lost approximately 30 pounds in the last 2 weeks after the surgery. Prior Similar Symptoms: No Recent Illness/Hospitalization: Yes PE Risk Factors: Positive for Recent Travel/Surgery and Recent Immobilization; Negative for Prior DVT or PE, Cancer or OCP + Smoking + >/=35 TAD Risk Factors: Negative for Marfan's Syndrome [facility] Medical History (Updated 03/08/23 @ 00:[address] Luis Vaughn MD) Afib Atrial flutter Borderline diabetes Fatigue Heart disease Presence of combination internal cardiac defibrillator (ICD) and pacemaker Shortness of breath Home Medications metoprolol tartrate 25 mg tablet 37.5 mg PO BID 02/21/14 [History Last Taken 12/16/19] apixaban 5 mg tablet 5 mg PO BID #60 tabs 11/30/19 [Rx Last Taken 12/16/19] aspirin 81 mg tablet,delayed release 81 mg PO DAILY 12/16/19 [History Last Taken 12/16/19] sotalol 120 mg tablet 120 mg PO BID 06/12/21 [History Last Taken Unknown] semaglutide (weight loss) 2.4 mg/0.75 mL subcutaneous pen injector (Wegovy) 2.4 mg subcut MO 06/26/22 [History Last Taken Unknown] Allergy/AdvReac Type Severity Reaction Status Date / Time metformin AdvReac Nausea/Vom/ Verified 06/03/23 20:51 Diarrhea Surgical History (Updated 03/07/23 @ 21:17 by Robel Tijerina) H/O cardiac radiofrequency ablation History of heart surgery Hx of tympanostomy tubes S/P gastric bypass Social History Smoking Status: Never smoker alcohol intake: never ROS ROS ED ROS Narrative Palpitations. No recent illness. Review of Systems ROS Unobtainable: Denies due to encephalopathy Constitutional Constitutional ED: Denies chills or fever(s) Eyes Eyes: Denies none ENT ENT ED: Denies ear pain Cardiovascular Cardiovascular: Reports as per HPI and palpitations; Denies chest pain or racing heartbeat Respiratory/Chest Respiratory/Chest: Denies cough or dyspnea Gastrointestinal Gastrointestinal: Denies abdominal pain Genitourinary Genitourinary ED: Denies dysuria or hematuria Musculoskeletal Musculoskeletal: Denies arthralgias or back pain Integumentary Denies abscess or Abrasions Neurologic Neurologic: Denies headache(s) Psychiatric Psychiatric: Denies anxiety Endocrine Endocrinology: Denies cold intolerance Hematologic/Lymphatic Hematologic/Lymphatic: Denies easy bleeding Allergic/Immunologic Allergic/Immunologic ED: Denies mouth swelling or tongue swelling EXAM Physical Exam Narrative Exam Narrative: Well-appearing 42-year-old female. Vital signs stable afebrile. Sister present at bedside. Pulse ox 100% on room air no signs hypoxia. Patient is in no distress. Looks well and is resting comfortably. H EENT exam unremarkable. Moist compartments. Neck nontender no JVD. No lymphadenopathy. Lungs clear to auscultation bilaterally. Heart regular rate and rhythm rate about 85 no murmur. Chest wall nontender. Abdomen soft, nontender, nondistended normal bowel sounds no peritoneal signs. Well-healed laparoscopic incisions for recent bypass surgery. Moves all 4 extremities. Calves nontender without edema or cords. Radial pulses equal symmetrical. Back nontender. Neurologically she is awake alert with no focal motor deficits. Very benign exam. Const Vital Signs: 03/07/23 20:50 03/07/23 21:15 03/07/23 21:17 Temperature 97.1 F L Temperature Source Temporal Pulse Rate 88 Respiratory Rate 18 Respiratory Effort Normal Blood Pressure 121/85 H Blood Pressure Mean 97 Pulse Ox 100 Oxygen Delivery Method Room Air Room Air 03/07/23 23:20 03/08/23 00:05 03/08/23 00:37 Temperature Temperature Source Pulse Rate 70 67 61 Respiratory Rate 16 18 18 Respiratory Effort Blood Pressure 95/61 97/72 98/66 Blood Pressure Mean 72 80 76 Pulse Ox 98 98 100 Oxygen Delivery Method Room Air Room Air Room Air 03/08/23 01:00 Temperature Temperature Source Pulse Rate 62 Respiratory Rate Respiratory Effort Blood Pressure 106/78 Blood Pressure Mean 87 Pulse Ox Oxygen Delivery Method Positive well nourished and well developed; Negative for cachectic, contractures or unkempt General Appearance ED: well developed and NAD; Negative for unkempt, cachectic, contractures or pallor Nutritional Appearance: Negative for cachectic HEENT Reports moist mucous membranes; Denies dry mucous membranes normocephalic and atraumatic; Negative for trauma or tenderness Mouth ED: No dry mucous membranes Mouth: No dry mucous membranes Eyes PERRL and EOMs intact bilaterally General Eye ED: Negative for pale conjunctiva or scleral icterus Neck no lymphadenopathy, supple and no JVD General: Negative for tenderness Chest Wall inspection of chest normal and palpation of chest normal Chest: Negative for tenderness Resp normal respiratory effort and clear to auscultation bilaterally Effort and Inspection: Negative for respiratory distress Auscultation: Negative for rales, rhonchi or wheezes Cardio regular rhythm, S1 normal heart sound, S2 normal heart sound and no murmurs Rate: Negative for bradycardia or tachycardic Rhythm: Negative for abnormal rhythm Peripheral Pulses: pulses 2+ throughout GI normal to inspection, nondistended, normoactive bowel sounds, soft to palpation, non-tender, non-distended and no masses GI Narrative: Well-healed gastric bypass, laparoscopic incisions. Dry and clean. Palpation: Negative for mass Back/Spine no CVA tenderness and no thoracic nor lumbar tenderness General Back: Negative for CVA tenderness Cervical Spine: Negative for cervical spine tenderness Extremity normal to inspection General Extremety ED: Negative for edema, pulses abnormal or tenderness General Extremity: Negative for edema or pulses abnormal Neuro oriented x3 and CN's II-XII intact bilaterally Sensorium / Orientation: awake, alert, oriented to person, oriented to place and oriented to time; Negative for confused, lethargic or stuporous Motor Exam: strength 5/5 throughout Psych Appearance: Negative for unkempt Attitude: No agitated Mood & Affect: Negative for depressed, anxious or tearful Skin no rashes or lesions noted and no wounds General Skin Exam: Negative for jaundice or pallor Rashes: No rashes noted Trauma: Negative for abrasion or laceration MDM MDM MDM Narrative Medical decision making narrative: 42-year-old female status post gastric bypass 2 weeks ago. Palpitations. Very benign exam. She is on Lovenox anticoagulation. She has no chest pain. Currently has no shortness of breath. She will undergo cardiac work-up. She has no complaints of any infection. She has no dysuria or fever. No significant cough. Repeat exam patient is resting comfortably clinically looks well at midnight. Her blood pressure is running around 90 systolic. She will be given a liter of fluid and reassess. She and I and her sister went over her labs and really no specific findings on her chest x-ray, EKG and lab work. She may be mildly dehydrated. Patient received a liter normal saline her current blood pressure is 106/78. She normally runs between 95 systolic to about 120. She is feeling well. She is looks well on exam. She comfortable being discharged home. She is on metoprolol I told her to hold it if her blood pressure is running at or below 110. 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 History & Record Review Discussion w/independent historian: Patient Additional record(s) reviewed:: Prior inpatient record, Prior outpatient record, Prior ED visit and Prior labs Lab Data Attestation: I reviewed the patient's lab results. Lab results narrative: CBC normal. White count 6.7. H&H 12.3 and 36. Platelets 314. Chemistries show potassium 3.4 gap of 7 BUN and creatinine of 21 0.9. Glucose 100. Troponin 12. Chest x-ray chronic changes no acute process. Labs: Laboratory Results - last 24 hr 03/07/23 03/07/23 21:15 21:15 WBC 6.7 RBC 4.21 Hgb 12.3 Hct 36.6 L MCV 86.9 MCH 29.2 MCHC 33.6 RDW Std Deviation 44.8 H RDW Coeff of Ramesh 14.3 Plt Count 314 MPV 12.2 H Immature Gran % (Auto) 0.300 Neut % (Auto) 53.2 Lymph % (Auto) 32.6 [place] % (Auto) 8.6 Eos % (Auto) 4.1 Baso % (Auto) 1.2 H Absolute Neuts (auto) 3.5 Absolute Lymphs (auto) 2.17 Nucleated RBC % 0 Sodium 141 Potassium 3.4 L Chloride 111 H Carbon Dioxide 23.0 Anion Gap 7 BUN 21 H Creatinine 0.94 Estim Creat Clear Calc 78.65 Est GFR (MDRD) Af Amer 83 Est GFR (MDRD) Non-Af 69 BUN/Creatinine Ratio 22.2 H Glucose 100 Calcium 9.2 Troponin I High Sens 12 Radiography Chest X-Ray - ED: 1 View, Read by ED Physician, Read by Radiologist, Normal, Heart, Lungs, Mediastinum, Bony Structures, No Acute Disease and Chronic Changes Diagnostic Testing: Clinical Impression(s) from Imaging Studies Chest X-Ray 03/07/23 21:30 IMPRESSION: No evidence of acute cardiopulmonary disease. Electronically Signed: Tony Maxwell DO at 22:21 EDT Reading Location ID and State: [facility] / [place] Tel , Service support , Rhythm Strip Rhythm Strip: Sinus Rhythm Rate: 73 Ectopy: None EKG Initial EKG: Attestation: I personally reviewed and interpreted this EKG as follows: Interpretation: Sinus Rhythm Comments: Normal sinus rhythm rate of 73 no acute signs of [place] or ischemia. Left bundle branch block. History of the same. Prior EKG tracings: available for review Prior: Unchanged Discharge Plan Triage Chief Complaint: Dizziness ED Provider: Luis Vaughn Dx/Rx/DC Orders Clinical Impression: Acute dehydration, Acute hypotension, Chronic anticoagulation, History of atrial fibrillation Instructions: ED Dehydration (Adult) Prescriptions: No Action metoprolol tartrate 25 MG tablet 37.5 mg PO BID apixaban 5 MG tablet 5 mg PO BID Qty: 60 0RF aspirin 81 MG tablet,delayed release (DR/EC) 81 mg PO DAILY sotalol 120 mg Tablet 120 mg PO BID Wegovy 2.4 mg/0.75 mL pen injector 2.4 mg SUBCUT MO Primary Care Provider: Kylah Palma Referrals: Kylah Palma PA [Primary Care Provider] - As soon as possible Activity Restrictions/Additional Instructions: Plenty of fluids and rest. Do not take your blood pressure medication the metoprolol if your blood pressure is not running higher than 110. Follow-up with your doctor to ensure you are improving. Return if you are feeling worse. Disposition Disposition: Home, Self Care
[2023-03-07 21:26] LABS: Absolute Lymphocyte Count 2.17 X10^3/uL (0.83-4.51); Absolute Neutrophil Count 3.5 X10^3/uL (2.0-7.7); Basophil# 0.08 X10^3/uL; Basophil% 1.2 % (0-1); Eosinophil# 0.27 X10^3/uL; Eosinophils% 4.1 % (0-5); Hematocrit 36.6 % (37-47); Hemoglobin 12.3 g/dL (12.0-15.0); Lymphocyte # 2.17 X10^3/ul (0.83-4.51); Lymphocyte % 32.6 % (19-41); Mean Corp Hgb Conc 33.6 g/dL (32-36); Mean Corpuscular Hgb 29.2 pg (27.0-32.0); Mean Corpuscular Volume 86.9 fL (81-99); Mean Platelet Vol. 12.2 fl (6.2-12.0); Monocyte# 0.57 X10^3/uL; Monocyte% 8.6 % (0-10); NRBC Flagged by Analyzer 0 % (0-5); Neutrophil # 3.54 X10^3/uL (2.7-7.7); Neutrophil % 53.2 % (47-70); Platelet Count 314 K/mm3 (150-450); RBC Distribution Width CV 14.3 % (11.6-14.6); RBC Distribution Width SD 44.8 fl (35.1-43.9); Red Blood Count 4.21 M/mm3 (4.2-5.4); White Blood Count 6.7 K/mm3 (4.4-11.0)
--- NOTE | 2023-03-07 21:30 | RAD_ITS ---
INDICATION: chest pain EXAMINATION/TECHNIQUE: X-RAY - XR Chest 1 View COMPARISON: 10/26/2022. FINDINGS: LINES/DEVICES: External pacer and lead are stable. LUNGS: No consolidation or evidence of an effusion. No evidence of edema or a pneumothorax. MEDIASTINUM AND CARDIOVASCULAR STRUCTURES: Cardiac silhouette is normal in size and contour. Stable median sternotomy wires. BONES AND SOFT TISSUES: No acute abnormality. RAD/Chest 1 View (Portable) IMPRESSION: No evidence of acute cardiopulmonary disease. Electronically Signed: Tony Maxwell DO at 22:21 EDT ,
[2023-03-07 21:44] LABS: Anion Gap 7 (5-15); BUN 21 mg/dL (7-18); BUN/Creat Ratio 22.2 RATIO (10-20); Calcium,Total 9.2 mg/dL (8.5-10.1); Chloride 111 mmol/L (98-107); Creatinine, Serum 0.94 mg/dL (0.55-1.02); EST Glomerular Filtration Rate 69 mL/min (>60); Est Glom Filt Rate - Afr Amer 83 mL/min (>60); Estimated Creatinine Clearance 78.65 ml/min; Glucose 100 mg/dL (74-106); Potassium 3.4 mmol/L (3.5-5.1); Sodium Level 141 mmol/L (136-145); Troponin-I HS 12 pg/mL (3.0-54.0)
[2023-03-07 23:20] VITALS: BP 95/61; PULSE 70; RESP 16; O2SAT 98
[2023-03-08 00:05] VITALS: BP 97/72; PULSE 67; RESP 18; O2SAT 98
[2023-03-08] MEDS: 0.9% Normal Saline 1,000 ML 999 ML IV (00:16)
[2023-03-08 00:37] VITALS: BP 98/66; PULSE 61; RESP 18; O2SAT 100
[2023-03-08 01:00] VITALS: BP 106/78; PULSE 62
== END 2023-03-08 01:09 | disposition home or self-care (01) ==
PROVIDERS: Emergency Provider Emergency Medicine; PCP Physician Assistant; Visit Provider Emergency Medicine
DX: E86.0 Dehydration (principal); I48.91 Unspecified atrial fibrillation; Z98.84 Bariatric surgery status; I95.9 Hypotension, unspecified; Z79.01 Long term (current) use of 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; Z95.0 Presence of cardiac pacemaker; Z79.82 Long term (current) use of aspirin
CPT/HCPCS: 71045; 80048; 84484; 85025; 93005; 99283; J7030; A4216

== ENCOUNTER 2023-05-03 15:15 | Emergency (ER) | payer BC, SELFPAY ==
[2023-05-03 15:16] VITALS: BP 135/92; PULSE 66; RESP 16; TEMP 36.3; O2SAT 100; BMI 33.5
--- NOTE | 2023-05-03 15:27 | US_ITS ---
EXAM: US ABDOMEN LIMITED, RIGHT UPPER QUADRANT CLINICAL INDICATION: PAIN TECHNIQUE: Real-time ultrasound of the right upper quadrant with image documentation. COMPARISON: No relevant prior studies available. FINDINGS: LIVER: 15 mm hyperechoic lesion within the right hepatic lobe suggestive of hemangioma. No intrahepatic biliary ductal dilation. GALLBLADDER: Multiple large stones are present within the gallbladder. Positive ultrasound Stuart sign is reported. No gallbladder wall thickening is demonstrated. No pericholecystic fluid. COMMON BILE DUCT: Unremarkable as visualized. The proximal common bile duct is normal size. PANCREAS: Pancreas is obscured by overlying bowel gas. RIGHT KIDNEY: Normal. There is no hydronephrosis. No shadowing calculus. No focal lesion or perinephric collection is demonstrated. US/Gallbladder IMPRESSION: 1. Cholelithiasis. 2. 15 mm liver lesion suggestive of hemangioma. Electronically Signed: Brock Kirk MD at 16:59 EDT ,
--- NOTE | 2023-05-03 15:27 | EDS_ITS ---
HPI <JACQUE Iniguez - Last Filed: 05/03/23 17:14> History of Present Illness Chief Complaint: Abd Pain Narrative Narrative: Patient is a 42-year-old female with history of PWP on Coumadin, patient had gastric bypass surgery in February, patient states that she ate a turkey burger last evening, and around 4 AM she developed right upper quad abdominal pain. It was sharp and stabbing in nature however it is coming and going. Patient states she ate a snack today while at work and the pain got worse. She believes it might be her gallbladder. She does have history of gallstones. She has had no complications from her gastric bypass surgery she is lost significant mount of weight. She denies any fever or chills. PFSH <JACQUE Iniguez - Last Filed: 05/03/23 17:14> [facility] Medical History (Updated 05/03/23 @ 17:12 by JACQUE Iniguez) Afib Atrial flutter Borderline diabetes Fatigue Heart disease Presence of combination internal cardiac defibrillator (ICD) and pacemaker Shortness of breath Home Medications metoprolol tartrate 25 mg tablet 37.5 mg PO BID 02/21/14 [History Last Taken 12/16/19] apixaban 5 mg tablet 5 mg PO BID #60 tabs 11/30/19 [Rx Last Taken 12/16/19] aspirin 81 mg tablet,delayed release 81 mg PO DAILY 12/16/19 [History Last Taken 12/16/19] sotalol 120 mg tablet 120 mg PO BID 06/12/21 [History Last Taken Unknown] semaglutide (weight loss) 2.4 mg/0.75 mL subcutaneous pen injector (Wegovy) 2.4 mg subcut MO 06/26/22 [History Last Taken Unknown] hydrocodone-acetaminophen 5-325mg 5mg-325mg 1 tab PO Q6H PRN PRN Pain 3 days #10 TABLETS 05/03/23 [Rx Last Taken Unknown] multivitamin with iron 1 tab PO DAILY 05/03/23 [History Last Taken Unknown] ondansetron 4 mg disintegrating tablet 4 mg PO Q8H PRN PRN Nausea #10 tabs 05/03/23 [Rx Last Taken Unknown] pantoprazole 20 mg tablet,delayed release (Protonix) 20 mg PO DAILY 05/03/23 [History Last Taken Unknown] pantoprazole 40 mg tablet,delayed release mg PO 05/03/23 [History Last Taken Unknown] warfarin 2.5 mg tablet (Jantoven) 5 mg PO MOWETHSA 05/03/23 [History Last Taken Unknown] warfarin 5 mg tablet 2.5 mg PO SUTUFR 05/03/23 [History Last Taken Unknown] Allergy/AdvReac Type Severity Reaction Status Date / Time metformin AdvReac Nausea/Vom/ Verified 05/03/23 15:16 Diarrhea Surgical History H/O cardiac radiofrequency ablation History of heart surgery Hx of tympanostomy tubes S/P gastric bypass Social History Smoking Status: Never smoker alcohol intake: never ROS <JACQUE Iniguez - Last Filed: 05/03/23 17:14> ROS ED ROS Narrative Constitutional: Negative for fever, chills, weight loss, weakness Eyes: Negative for vision loss, vision change, double vision ENT: Negative for any sore throat, ear pain, congestion Cardiovascular: Negative for any chest pain, tightness, palpitations Respiratory: Negative for any cough, sputum production, hemoptysis, dyspnea, dyspnea on exertion, orthopnea Gastrointestinal: Negative for any vomiting, diarrhea, constipation, blood in stool, blood in vomit. Positive right upper abdominal pain : Negative for any urinary frequency, dysuria, retention, blood in urine Muscle skeletal: Negative for any muscle joint pain, stiffness, myalgias, arthralgias, neck pain, back pain Neurological: Negative for any headache, syncope, numbness or tingling, dizziness Skin: Negative for any rashes, lumps, itching, abrasions, lacerations Psychiatric: Negative for any depression, anxiety, stress, suicidal ideation, homicidal ideation Hematologic: Negative for any easy bruising, excessive bruising, easy bleeding Allergies: Negative for any eczema, hives, rash EXAM <JACQUE Iniguez - Last Filed: 05/03/23 17:14> Physical Exam Narrative Exam Narrative: Vital signs reviewed. HEET: Head normocephalic atraumatic, TMs clear bilaterally. Posterior pharynx is clear, moist mucous membranes. Nares clear bilaterally. Neck: Supple with no lymphadenopathy or tenderness. No signs of meningismus, negative jolt sign. Cardiac: Regular rate and rhythm no murmurs gallops or rubs, equal peripheral pulses bilaterally. Respiratory: Lungs clear to auscultation bilaterally. No chest tenderness. Abdomen: Soft, nondistended. No abdominal bruit or pulsatile masses. No hepatosplenomegaly. Active bowel sounds in all quadrants, positive Stuart sign. Extremities: No peripheral edema, no signs of gross trauma or deformity. Active full range of motion of all extremities. Neuro: Cranial nerves II through XII intact, no focal neurological deficits. Skin: Clean dry and intact with no rash, purpura, petechiae, vesicles or pustule s. Backs/flank: No CVA tenderness, no midline spinal tenderness, no deformity. Psych: Normal mood and affect. No SI, HI or acute psychosis. Const Vital Signs: 05/03/23 15:16 05/03/23 17:15 05/03/23 17:15 Temperature 97.4 F L Temperature Source Temporal Pulse Rate 66 67 67 Respiratory Rate 16 16 16 Blood Pressure 135/92 H 107/72 107/72 Blood Pressure Mean 106 83 Pulse Ox 100 98 98 Oxygen Delivery Method Room Air Room Air <Dr. Geo Godoy DO - Last Filed: 05/03/23 17:50> Physical Exam Const Vital Signs: 05/03/23 15:16 05/03/23 17:15 05/03/23 17:15 Temperature 97.4 F L Temperature Source Temporal Pulse Rate 66 67 67 Respiratory Rate 16 16 16 Blood Pressure 135/92 H 107/72 107/72 Blood Pressure Mean 106 83 Pulse Ox 100 98 98 Oxygen Delivery Method Room Air Room Air [facility] <JACQUE Iniguez - Last Filed: 05/03/23 17:14> [facility] Lab Data Labs: Laboratory Results - last 24 hr 05/03/23 05/03/23 05/03/23 15:42 15:53 16:10 WBC 8.8 RBC 4.57 Hgb 13.2 Hct 40.6 MCV 88.8 MCH 28.9 MCHC 32.5 RDW Std Deviation 45.2 H RDW Coeff of Ramesh 14.1 Plt Count 305 MPV 12.2 H Immature Gran % (Auto) 0.200 Neut % (Auto) 58.2 Lymph % (Auto) 28.6 Lane % (Auto) 7.8 Eos % (Auto) 4.3 Baso % (Auto) 0.9 Absolute Neuts (auto) 5.1 Absolute Lymphs (auto) 2.50 Nucleated RBC % 0 PT 18.1 H INR 1.5 Sodium 139 Potassium 3.7 Chloride 109 H Carbon Dioxide 25.0 Anion Gap 5 BUN 17 Creatinine 0.86 Estim Creat Clear Calc 85.96 Est GFR (MDRD) Af Amer 93 Est GFR (MDRD) Non-Af 77 BUN/Creatinine Ratio 19.8 Glucose 88 Calcium 9.1 Total Bilirubin 0.50 AST 17 ALT 26 Alkaline Phosphatase 67 Total Protein 7.2 Albumin 3.6 Globulin 3.6 Albumin/Globulin Ratio 1.0 Lipase 108 H Urine Color Yellow Urine Clarity Clear Urine pH 6.0 Ur Specific [place] 1.015 Urine Protein Negative Urine Glucose (UA) Normal Urine Ketones 5 H Urine Occult Blood Negative Urine Nitrite Negative Urine Bilirubin Negative Urine Urobilinogen Normal Ur Leukocyte Esterase 500 H Urine RBC 0 SEEN Urine WBC 5-10 SEEN Ur Squamous Epith Cells 0-5 SEEN Urine Bacteria 1+ Urine Mucus 0 SEEN Urine Test Negative Radiography Diagnostic Testing: Clinical Impression(s) from Imaging Studies Gallbladder Ultrasound 05/03/23 15:27 IMPRESSION: 1. Cholelithiasis. 2. 15 mm liver lesion suggestive of hemangioma. Electronically Signed: Brock Kirk MD at 16:59 EDT , Treatment and Re-Evaluation :: Patient appears generally well, patient appears nontoxic, vital signs are stable. Patient presents to the emergency department with complaints of right upper quadrant abdominal pain that started around 4 AM. Patient did have positive Stuart sign, patient does have history of gallstones. Patient was given IV fluids, Zofran, fentanyl. Right upper quadrant ultrasound will be completed to rule out any acute cholecystitis, choledocholithiasis. Patient laboratory values show normal CBC, patient's chemistries are unremarkable, patient lipase was slightly elevated 108. Patient urinalysis was negative for any infection. Patient's right upper quadrant ultrasound showed cholelithiasis no evidence of cholecystitis. 15 mm liver lesion/hemangioma. At this time, I do believe the patient is suffering from biliary colic. Patient w ill follow-up outpatient, she will be referred to a surgeon. At this time, patient has no fever or chills, she is handling oral secretions. Patient be given pain medicine, nausea medicine for home. She is happy with the plan of care, all questions answered. Patient was given strict return precautions <Dr. Geo Godoy, DO - Last Filed: 05/03/23 17:50> [facility] Lab Data Labs: Laboratory Results - last 24 hr 05/03/23 05/03/23 05/03/23 15:42 15:53 16:10 WBC 8.8 RBC 4.57 Hgb 13.2 Hct 40.6 MCV 88.8 MCH 28.9 MCHC 32.5 RDW Std Deviation 45.2 H RDW Coeff of Ramesh 14.1 Plt Count 305 MPV 12.2 H Immature Gran % (Auto) 0.200 Neut % (Auto) 58.2 Lymph % (Auto) 28.6 Lane % (Auto) 7.8 Eos % (Auto) 4.3 Baso % (Auto) 0.9 Absolute Neuts (auto) 5.1 Absolute Lymphs (auto) 2.50 Nucleated RBC % 0 PT 18.1 H INR 1.5 Sodium 139 Potassium 3.7 Chloride 109 H Carbon Dioxide 25.0 Anion Gap 5 BUN 17 Creatinine 0.86 Estim Creat Clear Calc 85.96 Est GFR (MDRD) Af Amer 93 Est GFR (MDRD) Non-Af 77 BUN/Creatinine Ratio 19.8 Glucose 88 Calcium 9.1 Total Bilirubin 0.50 AST 17 ALT 26 Alkaline Phosphatase 67 Total Protein 7.2 Albumin 3.6 Globulin 3.6 Albumin/Globulin Ratio 1.0 Lipase 108 H Urine Color Yellow Urine Clarity Clear Urine pH 6.0 Ur Specific [place] 1.015 Urine Protein Negative Urine Glucose (UA) Normal Urine Ketones 5 H Urine Occult Blood Negative Urine Nitrite Negative Urine Bilirubin Negative Urine Urobilinogen Normal Ur Leukocyte Esterase 500 H Urine RBC 0 SEEN Urine WBC 5-10 SEEN Ur Squamous Epith Cells 0-5 SEEN Urine Bacteria 1+ Urine Mucus 0 SEEN Urine Test Negative Radiography Diagnostic Testing: Clinical Impression(s) from Imaging Studies Gallbladder Ultrasound 05/03/23 15:27 IMPRESSION: 1. Cholelithiasis. 2. 15 mm liver lesion suggestive of hemangioma. Electronically Signed: Brock Kirk MD at 16:59 EDT , Treatment and Re-Evaluation :: Patient appears generally well, patient appears nontoxic, vital signs are stable. Patient presents to the emergency department with complaints of right upper quadrant abdominal pain that started around 4 AM. Patient did have positive Stuart sign, patient does have history of gallstones. Patient was given IV fluids, Zofran, fentanyl. Right upper quadrant ultrasound will be completed to rule out any acute cholecystitis, choledocholithiasis. Patient laboratory values show normal CBC, patient's chemistries are unremarkable, patient lipase was slightly elevated 108. Patient urinalysis was negative for any infection. Patient's right upper quadrant ultrasound showed cholelithiasis no evidence of cholecystitis. 15 mm liver lesion/hemangioma. At this time, I do believe the patient is suffering from biliary colic. Patient will follow-up outpatient, she will be referred to a surgeon. At this time, patient has no fever or chills, she is handling oral secretions. Patient be given pain medicine, nausea medicine for home. She is happy with the plan of care, all questions answered. Patient was given strict return precautions. ED attending note: I evaluated the patient in conjunction with the ANH. I agree with his/her statements and above findings. I have personally performed a face to face assessment of the patient and have reviewed the ANH Note. I performed a substantive portion of the visit including all aspects of the following. I personally saw the patient performed chart review, physical exam, reviewed labs, imaging (if obtained), and formulated a treatment and management plan. Brief history: Right upper quad abdominal pain Exam: Nursing triage notes reviewed, Vital signs reviewed Constitutional: please see mdm HENT: MMM Eyes: Pupils equal round and reactive to light, Extraocular muscles intact Neck: No stridor, no JVD, full neck ROM Lungs: Clear to auscultation, No wheezing or rales. No increased work of breathing, no conversational dyspnea, no accessory muscle use, no nasal flaring. No respiratory distress noted Heart: Regular rate and rhythm, No murmurs, No rubs and No gallops, 2+ distal pulses (radial, femoral, posterior tibial) in all extremities Abdomen: Soft, right upper quadrant TTP, positive Stuart sign, no peritoneal signs, no rigidity or guarding. : No CVAT Extremities: No edema Neuro: No focal neurological deficits, cranial nerves II through XII intact, 5/5 strength in all extremities. Intact sensation to light touch in all extremities, 2+ reflexes bilateral patella dens. Normal gait. No ataxia. Skin: No rash or lesions noted MDM/plan: Chief Complaint: Abdominal pain MDM narrative: Patient was hemodynamically stable, afebrile, nontoxic-appearing. Patient had right quadrant tenderness, positive Stuart sign. Concern for acute cholecysti tis. ultrasound showed no evidence of acute cholecystitis. Patient had mild elevation in lipase otherwise no significant evidence of hepatobiliary pathology. No indication for surgical consultation at this time. Patient is appropriate discharge home with close outpatient surgery follow-up and strict return precautions. Shared decision making: I will have a discussion with the patient and or visitors regarding risk/benefits of further testing or admission. They will be made aware of of the risk/benefits inherent in this decision they will be given the opportunity to voice understanding. Consults: None Discharge Plan Triage Chief Complaint: Abd Pain ED Midlevel Provider: Abhilash Aguilar ED Provider: Geo Godoy Dx/Rx/DC Orders Clinical Impression: Biliary colic Instructions: Abdominal Pain, ED Gallstones with Biliary Colic Prescriptions: New ondansetron 4 mg tablet,disintegrating 4 mg PO Q8H PRN PRN (Reason: Nausea) Qty: 10 0RF hydrocodone-acetaminophen 5-325 mg tablet 1 tab PO Q6H PRN PRN (Reason: Pain) 3 Days Qty: 10 0RF No Action metoprolol tartrate 25 MG tablet 37.5 mg PO BID apixaban 5 MG tablet 5 mg PO BID Qty: 60 0RF aspirin 81 MG tablet,delayed release (DR/EC) 81 mg PO DAILY sotalol 120 mg Tablet 120 mg PO BID Wegovy 2.4 mg/0.75 mL pen injector 2.4 mg SUBCUT MO pantoprazole [Protonix] 20 mg tablet,delayed release (DR/EC) 20 mg PO DAILY multivitamin with iron Tablet 1 tab PO DAILY warfarin [Jantoven] 2.5 mg tablet 5 mg PO MOWETHSA pantoprazole 40 mg tablet,delayed release (DR/EC) PO Patient Comments: TAKE 1 TABLET BY MOUTH DAILY warfarin 5 mg tablet 2.5 mg PO SUTUFR Patient Comments: Take 1 tablet by mouth once daily. Or as directed by anticoagulation clinic. Primary Care Provider: Kylah Palma Referrals: Antonette Salcido MD [Med Staff - Active Staff] - Kylah Palma PA [Primary Care Provider] - Activity Restrictions/Additional Instructions: You have multiple large stones in your gallbladder, you are having biliary colic. You need to follow-up with a surgeon outpatient to have this taken care of. Please return for worsening uncontrolled abdominal pain, fever chills nausea vomiting Disposition Disposition: Home, Self Care Discharge Date/Time: 05/03/23 17:35
[2023-05-03] MEDS: 0.9% Normal Saline 1,000 ML 1000 ML IV (15:44)
[2023-05-03] MEDS: Ondansetron 4 MG/2 ML Vial IV (15:46)
[2023-05-03] MEDS: fentaNYL 100 MCG/2 ML Ampul 50 MCG IV (15:46)
[2023-05-03 15:50] LABS: Absolute Neutrophil Count 5.1 X10^3/uL (2.0-7.7); Basophil# 0.08 X10^3/uL; Basophil% 0.9 % (0-1); Eosinophil# 0.38 X10^3/uL; Eosinophils% 4.3 % (0-5); Hematocrit 40.6 % (37-47); Hemoglobin 13.2 g/dL (12.0-15.0); Lymphocyte % 28.6 % (19-41); Mean Corp Hgb Conc 32.5 g/dL (32-36); Mean Corpuscular Hgb 28.9 pg (27.0-32.0); Mean Corpuscular Volume 88.8 fL (81-99); Mean Platelet Vol. 12.2 fl (6.2-12.0); Monocyte# 0.68 X10^3/uL; Monocyte% 7.8 % (0-10); NRBC Flagged by Analyzer 0 % (0-5); Neutrophil # 5.09 X10^3/uL (2.7-7.7); Neutrophil % 58.2 % (47-70); Platelet Count 305 K/mm3 (150-450); RBC Distribution Width CV 14.1 % (11.6-14.6); RBC Distribution Width SD 45.2 fl (35.1-43.9); Red Blood Count 4.57 M/mm3 (4.2-5.4); White Blood Count 8.8 K/mm3 (4.4-11.0)
[2023-05-03 15:58] LABS: Mucous, Urine 0 SEEN /hpf (<or=2+); Red Blood Cells-Urine 0 SEEN /hpf (0-5)
[2023-05-03 16:00] LABS: Color, Urine Yellow (Yellow); Glucose, Dipstick Normal (Normal); Ketone-Dipstick 5 mg/dl (Negative); Leukocyte Esterase-Dipstick 500 /ul (Negative); Nitrite-Dipstick Negative (Negative); Occult Blood-Urine Negative /ul (Negative); Protein-Dipstick Negative (Negative); Specific Gravity, Urine 1.015 (1.002-1.030); Urine Bilirubin Dipstick Negative (Negative); Urine Clarity Clear (Clear); Urine Urobilinogen Normal (Normal)
[2023-05-03 16:05] LABS: Internal QC Validated? YES +Cl - CLEAR BKGD; Pregnancy, Urine Negative Negative
[2023-05-03 16:07] LABS: Bacteria 1+ /hpf (None Seen); Squamous Epithelial Cells - UA 0-5 SEEN /hpf (5-10); White Blood Cells 5-10 SEEN /hpf (0-5)
[2023-05-03 16:14] LABS: AST(SGOT) 17 U/L (15-37); Alanine Aminotransfer ALT/SGPT 26 U/L (13-56); Albumin, Serum 3.6 g/dL (3.2-5.0); Alkaline Phosphatase 67 U/L (45-117); Anion Gap 5 (5-15); BUN 17 mg/dL (7-18); BUN/Creat Ratio 19.8 RATIO (10-20); Calcium,Total 9.1 mg/dL (8.5-10.1); Chloride 109 mmol/L (98-107); Creatinine, Serum 0.86 mg/dL (0.55-1.02); EST Glomerular Filtration Rate 77 mL/min (>60); Est Glom Filt Rate - Afr Amer 93 mL/min (>60); Estimated Creatinine Clearance 85.96 ml/min; Globulin 3.6 g/dL (2.2-4.2); Glucose 88 mg/dL (74-106); Lipase 108 U/L (13-75); Potassium 3.7 mmol/L (3.5-5.1); Protein, Total 7.2 g/dL (6.4-8.2); Sodium Level 139 mmol/L (136-145)
[2023-05-03 16:29] LABS: International Normalized Ratio 1.5; Prothrombin Time (Protime)PT. 18.1 SECONDS (11.7-14.9)
[2023-05-03 17:15] VITALS: BP 107/72; PULSE 67; RESP 16; O2SAT 98
== END 2023-05-03 17:35 | disposition home or self-care (01) ==
PROVIDERS: Nurse Practitioner; Emergency Provider Emergency Medicine; PCP Physician Assistant; Visit Provider Emergency Medicine
DX: K80.70 Calculus of gallbladder and bile duct without cholecystitis without obstruction (principal); I48.91 Unspecified atrial fibrillation; Z79.01 Long term (current) use of 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; Z95.810 Presence of automatic (implantable) cardiac defibrillator; Z79.82 Long term (current) use of aspirin
CPT/HCPCS: 76705; 80053; 81001; 81025; 83690; 85025; 85610; 96361; 96374; 96375; 99284; J7030; J2405

== ENCOUNTER 2024-01-18 04:39 | Emergency (ER) | payer BC, SELFPAY ==
[2024-01-18 04:39] VITALS: PULSE 140
[2024-01-18 04:40] VITALS: BP 137/114; PULSE 150; RESP 14; TEMP 36.2; O2SAT 100; BMI 23.8
--- NOTE | 2024-01-18 04:53 | EKG12_ITS ---
Test Reason : Blood Pressure : / mmHG Vent. Rate : 149 BPM Atrial Rate : 000 BPM P-R Int : 000 ms QRS Dur : 120 ms QT Int : 320 ms P-R-T Axes : 000 -20 161 degrees QTc Int : 504 ms Critical Test Result: High HR Atrial fibrillation with rapid ventricular response Incomplete left bundle branch block Minimal voltage criteria for LVH, may be normal variant ( [place] product ) Marked ST abnormality, possible lateral subendocardial injury Abnormal ECG Confirmed by CHRISTIAN ZHOU, JASON ([id number]), editor city [place]HER [place]AL ([id number]) on 01/19/2024 8:22:45 AM Referred By: Confirmed By:JASON GONZALES MD
[2024-01-18] MEDS: 0.9% Normal Saline (1000mL) 1,000 ML 999 ML IV (05:03)
[2024-01-18] MEDS: Metoprolol Tartrate 5 MG/5 ML Vial IV (05:03)
[2024-01-18 05:17] LABS: Absolute Neutrophil Count 4.4 X10^3/uL (2.0-7.7); Basophil# 0.08 X10^3/uL; Basophil% 0.9 % (0-1); Eosinophil# 0.23 X10^3/uL; Eosinophils% 2.5 % (0-5); Hematocrit 41.4 % (37-47); Hemoglobin 13.6 g/dL (12.0-15.0); Lymphocyte % 41.9 % (19-41); Mean Corp Hgb Conc 32.9 g/dL (32-36); Mean Corpuscular Hgb 28.5 pg (27.0-32.0); Mean Corpuscular Volume 86.8 fL (81-99); Mean Platelet Vol. 10.9 fl (6.2-12.0); Monocyte% 6.6 % (0-10); NRBC Flagged by Analyzer 0 % (0-5); Neutrophil # 4.35 X10^3/uL (2.7-7.7); Platelet Count 366 K/mm3 (150-450); RBC Distribution Width CV 13.9 % (11.6-14.6); RBC Distribution Width SD 44.7 fl (35.1-43.9); Red Blood Count 4.77 M/mm3 (4.2-5.4); White Blood Count 9.1 K/mm3 (4.4-11.0)
[2024-01-18 05:25] LABS: International Normalized Ratio 3.4; Prothrombin Time (Protime)PT. 34.1 SECONDS (11.7-14.9)
[2024-01-18] MEDS: Digoxin 250 MCG/ML Ampul 500 MCG IV (05:25)
[2024-01-18 05:26] LABS: Partial Thromboplast Time 39.7 Seconds (24.1-36.2)
[2024-01-18 05:39] VITALS: BP 101/59; PULSE 100; RESP 10; O2SAT 100
[2024-01-18 05:54] LABS: Internal QC Validated? YES +Cl - CLEAR BKGD; Pregnancy, Serum, hCG Quali. NEGATIVE Negative; Record Kit Lot#, Serum Preg. 718086
[2024-01-18] MEDS: dilTIAZem 25 MG/5 ML Vial 15 MG IV BOLUS (06:02)
[2024-01-18 06:18] LABS: Anion Gap 6 (5-15); BUN 14 mg/dL (7-18); BUN/Creat Ratio 22.6 RATIO (10-20); Calcium,Total 8.9 mg/dL (8.5-10.1); Chloride 107 mmol/L (98-107); Creatinine, Serum 0.62 mg/dL (0.55-1.02); EST Glomerular Filtration Rate 111 mL/min (>60); Est Glom Filt Rate - Afr Amer 135 mL/min (>60); Estimated Creatinine Clearance 118.02 ml/min; Glucose 125 mg/dL (74-106); Magnesium 2.1 mg/dL (1.6-2.6); Potassium 3.7 mmol/L (3.5-5.1); Sodium Level 140 mmol/L (136-145); Thyroid Stim Hormone (TSH) 2.47 uIU/mL (0.358-3.74)
[2024-01-18 07:00] VITALS: BP 94/63; PULSE 94; RESP 12; O2SAT 100
--- NOTE | 2024-01-18 07:07 | EDS_ITS ---
HPI History of Present Illness Chief Complaint: Palpitations Informant: patient Narrative Narrative: Patient is a 43-year-old female with past medical history of paroxysmal atrial fibrillation on Coumadin. 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 She states that this reduced dose was changed in the past week. She states she went to bed normally and then awoke around 230/3 in the morning with heart racing and feeling similar nature to her previous bouts of A-fib with RVR. She states that she does not drink alcohol nor does she do illicit drugs and she denies any excessive stimulant use. [facility] Medical History Afib Atrial flutter Borderline diabetes Fatigue Heart disease Presence of combination internal cardiac defibrillator (ICD) and pacemaker Shortness of breath Home Medications metoprolol tartrate 25 mg tablet 37.5 mg PO BID 02/21/14 [History Last Taken 12/16/19] sotalol 120 mg tablet 120 mg PO BID 06/12/21 [History Last Taken Unknown] multivitamin with iron 1 tab PO DAILY 05/03/23 [History Last Taken Unknown] warfarin 2.5 mg tablet (Jantoven) 5 mg PO MOWETHSA 05/03/23 [History Last Taken Unknown] warfarin 5 mg tablet 2.5 mg PO SUTUFR 05/03/23 [History Last Taken Unknown] doxycycline hyclate 100 mg tablet 50 mg PO BID 01/18/24 [History Last Taken Unknown] Allergy/AdvReac Type Severity Reaction Status Date / Time metformin AdvReac Nausea/Vom/ Verified 05/03/23 15:16 Diarrhea Family History (Updated 05/07/23 @ 09:38 by Judy Patterson) Mother Diabetes Hypertension Father CVA (cerebral vascular accident) Surgical History H/O cardiac radiofrequency ablation History of heart surgery Hx of tympanostomy tubes S/P gastric bypass Social History Smoking Status: Never smoker alcohol intake: never ROS ROS ED Constitutional Constitutional ED: Denies chills or fever(s) Eyes Eyes: Denies change in vision ENT ENT ED: Denies sore throat Cardiovascular Cardiovascular: Reports chest pain, palpitations and racing heartbeat Respiratory/Chest Respiratory/Chest: Denies cough or dyspnea Gastrointestinal Gastrointestinal: Denies abdominal pain, diarrhea, nausea or vomiting Genitourinary Genitourinary ED: Denies dysuria Musculoskeletal Musculoskeletal: Denies myalgias Integumentary Denies rash Neurologic Neurologic: Denies headache(s) Hematologic/Lymphatic Hematologic/Lymphatic: Reports easy bleeding and easy bruising EXAM Physical Exam Const Vital Signs: 01/18/24 04:40 01/18/24 04:39 01/18/24 04:44 Temperature 97.1 F L Temperature Source Temporal Pulse Rate 150 H 140 H Respiratory Rate 14 Respiratory Effort Normal Blood Pressure 137/114 H Blood Pressure Mean 121 Pulse Ox 100 Oxygen Delivery Method Room Air 01/18/24 05:39 01/18/24 07:00 01/18/24 07:17 Temperature 98.0 F Temperature Source Pulse Rate 100 94 87 Respiratory Rate 10 L 12 12 Respiratory Effort Blood Pressure 101/59 L 94/63 108/71 Blood Pressure Mean 73 73 83 Pulse Ox 100 100 100 Oxygen Delivery Method Room Air Room Air Positive well nourished and well developed General Appearance ED: well developed; Negative for pallor HEENT HEENT Narrative: Normocephalic atraumatic Eyes PERRL and EOMs intact bilaterally General Eye ED: Negative for scleral icterus Neck supple and no JVD Resp normal respiratory effort and clear to auscultation bilaterally Cardio Rate: other Other Details: Irregularly irregular rhythm with tachycardic rate consistent with atrial fibrillation with rapid ventricular response GI normal to inspection, nondistended, normoactive bowel sounds, non-tender, non- distended and no masses Auscultation: normoactive bowel sounds Palpation: soft Extremity normal to inspection Extremity Narrative: No asymmetric edema no pitting edema negative Homans' sign bilaterally Neuro oriented x3, CN's II-XII intact bilaterally and no sensory deficits noted Sensorium / Orientation: alert Motor Exam: strength 5/5 throughout Psych mental status grossly normal Skin no rashes or lesions noted, no wounds and skin turgor normal General Skin Exam: Negative for jaundice or pallor MDM MDM MDM Narrative Medical decision making narrative: Patient arrived to the ER tachycardic consistent with A-fib with RVR. She states she has a past medical history of this and is anticoagulated. Therefore concern for DVT/PE is low and I do not feel she needs a D-dimer or CT scan. She reported that her metoprolol dose was recently diminished/decreased and this is most likely the cause for her breakthrough symptoms. However as there is potential for acute blood loss anemia versus acute kidney injury versus electrolyte abnormality or thyroid disorder as a potential cause basic blood work was obtained. Labs revealed no clinically significant findings and patient's INR is therapeutic indicating potential DVT/PE is low. The patient was given metoprolol and her heart rate did slow down slightly but her blood pressure dropped so therefore digoxin was added. This also helped reduce the heart rate and as blood pressure improved with fluids and time she was given a dose of Cardizem. Patient remained in atrial fibrillation but her heart rate reduced to approximately 75-85. As there is no electrolyte abnormality or acute kidney injury and her INR is therapeutic there is no need for admission. Also as she is hemodynamically stable there is no need for immediate cardioversion. The case was discussed with cardiology on-call for her clerk funeral detail out of [facility] and they recommend that she go back to her previous metoprolol dose as she has had a breakthrough event after the dose was decreased. Patient was informed of this but at this time as she is now hemodynamically stable with resolution of her rapid ventricular response she is otherwise safe for discharge History & Record Review Discussion w/independent historian: Patient Lab Data Attestation: I reviewed the patient's lab results. Labs: Laboratory Results - last 24 hr 01/18/24 04:45 WBC 9.1 RBC 4.77 Hgb 13.6 Hct 41.4 MCV 86.8 MCH 28.5 MCHC 32.9 RDW Std Deviation 44.7 H RDW Coeff of Ramesh 13.9 Plt Count 366 MPV 10.9 Immature Gran % (Auto) 0.100 Neut % (Auto) 48.0 Lymph % (Auto) 41.9 H [place] % (Auto) 6.6 Eos % (Auto) 2.5 Baso % (Auto) 0.9 Absolute Neuts (auto) 4.4 Absolute Lymphs (auto) 3.80 Nucleated RBC % 0 PT 34.1 H INR 3.4 APTT 39.7 H Sodium 140 Potassium 3.7 Chloride 107 Carbon Dioxide 27.0 Anion Gap 6 BUN 14 Creatinine 0.62 Estim Creat Clear Calc 118.02 Est GFR (MDRD) Af Amer 135 Est GFR (MDRD) Non-Af 111 BUN/Creatinine Ratio 22.6 H Glucose 125 H Calcium 8.9 Magnesium 2.1 TSH 2.47 Serum , Qual NEGATIVE Management Discussion w/another healthcare provider: Binder Cutter Hand Discharge Plan Triage Chief Complaint: Palpitations ED Provider: Bharath Chinchilla Dx/Rx/DC Orders Clinical Impression: Atrial fibrillation with RVR, Current use of skilled nursing anticoagulation Instructions: AFib Dc Prescriptions: No Action metoprolol tartrate 25 MG tablet 37.5 mg PO BID sotalol 120 mg Tablet 120 mg PO BID multivitamin with iron Tablet 1 tab PO DAILY warfarin [Jantoven] 2.5 mg tablet 5 mg PO MOWETHSA warfarin 5 mg tablet 2.5 mg PO SUTUFR Patient Comments: Take 1 tablet by mouth once daily. Or as directed by anticoagulation clinic. doxycycline hyclate 100 mg tablet 50 mg PO BID Stand Alone Forms: ED Work / School Excuse Primary Care Provider: Kylah Palma Referrals: Kylah Palma PA [Primary Care Provider] - Activity Restrictions/Additional Instructions: Please go back on your previous metoprolol dose as this seemed to prevent you from going into A-fib with RVR and was recommended by your manager shop. You may take that normal dose this morning when you return home. If you have worsening symptoms or any further concerns please return for repeat evaluation Disposition Disposition: Home, Self Care Discharge Date/Time: 01/18/24 07:23
[2024-01-18 07:17] VITALS: BP 108/71; PULSE 87; RESP 12; TEMP 36.7; O2SAT 100
== END 2024-01-18 07:23 | disposition home or self-care (01) ==
PROVIDERS: Emergency Provider Emergency Medicine; PCP Physician Assistant; Visit Provider Emergency Medicine
DX: I48.0 Paroxysmal atrial fibrillation (principal); Z79.01 Long term (current) use of 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; Z95.0 Presence of cardiac pacemaker
CPT/HCPCS: 80048; 83735; 84443; 84703; 85025; 85610; 85730; 93005; 96360; 99282; J7030; A4216

== ENCOUNTER 2024-02-29 16:45 | Emergency (ER) | payer BC, SELFPAY ==
[2024-02-29 16:47] VITALS: BP 106/76; PULSE 57; RESP 18; TEMP 36.1; O2SAT 100; BMI 22.9
[2024-02-29] MEDS: 0.9% Normal Saline (1000mL) 1,000 ML 999 ML IV ×2 (18:01→18:57)
[2024-02-29 18:02] LABS: Absolute Lymphocyte Count 2.29 X10^3/uL (0.83-4.51); Basophil# 0.06 X10^3/uL; Basophil% 0.8 % (0-1); Eosinophil# 0.13 X10^3/uL; Eosinophils% 1.8 % (0-5); Hematocrit 36.3 % (37-47); Hemoglobin 11.7 g/dL (12.0-15.0); Lymphocyte # 2.29 X10^3/ul (0.83-4.51); Lymphocyte % 32.3 % (19-41); Mean Corp Hgb Conc 32.2 g/dL (32-36); Mean Corpuscular Hgb 28.3 pg (27.0-32.0); Mean Corpuscular Volume 87.7 fL (81-99); Mean Platelet Vol. 11.4 fl (6.2-12.0); Monocyte# 0.56 X10^3/uL; Monocyte% 7.9 % (0-10); NRBC Flagged by Analyzer 0 % (0-5); Neutrophil # 4.01 X10^3/uL (2.7-7.7); Neutrophil % 56.8 % (47-70); Platelet Count 280 K/mm3 (150-450); RBC Distribution Width CV 13.7 % (11.6-14.6); RBC Distribution Width SD 43.8 fl (35.1-43.9); Red Blood Count 4.14 M/mm3 (4.2-5.4); White Blood Count 7.1 K/mm3 (4.4-11.0)
[2024-02-29 18:11] LABS: International Normalized Ratio 1.3; Prothrombin Time (Protime)PT. 15.7 SECONDS (11.7-14.9)
[2024-02-29 18:15] LABS: Internal QC Validated? YES +Cl - CLEAR BKGD; Pregnancy, Serum, hCG Quali. NEGATIVE Negative
--- NOTE | 2024-02-29 18:17 | ED.VIS.GI ---
HPI HPI - GI History of Present Illness Chief Complaint: Nausea/Vomiting Narrative Narrative: 43 year old female presenting with nausea and vomiting. she states it has been dark. She states she does not feel physically ill. she does not have chills, fever, myalgias. She states that other than not being able to hold down fluid she feels fine. she denies abdominal pain. She has had a gastric bypass in the past. she states when she called her surgeons office they wanted her to go to the emergency room. patient denies lightheadedness or dizziness. she denies black or bloody stools. PFSH PFS Medical History Presence of combination internal cardiac defibrillator (ICD) and pacemaker Atrial flutter Afib Fatigue Borderline diabetes Heart disease Shortness of breath Home Medications ?Medication ?Instructions ?Recorded ?Last Taken ?Type metoprolol tartrate 25 mg tablet 37.5 mg PO BID 02/21/14 12/16/19 History sotalol 120 mg tablet 120 mg PO BID 06/12/21 Unknown History multivitamin with iron 1 tab PO DAILY 05/03/23 Unknown History warfarin 2.5 mg tablet (Jantoven) 5 mg PO MOWETHSA 05/03/23 Unknown History warfarin 5 mg tablet 2.5 mg PO SUTUFR 05/03/23 Unknown History doxycycline hyclate 100 mg tablet 50 mg PO BID 01/18/24 Unknown History Allergy/AdvReac Type Severity Reaction Status Date / Time metformin AdvReac Nausea/Vom/ Verified 05/03/23 15:16 Diarrhea NSAIDS (Non-Steroidal AdvReac Other Verified 02/29/24 16:47 Anti-Inflamma Family History Mother Diabetes Hypertension Father CVA (cerebral vascular accident) Surgical History S/P gastric bypass H/O cardiac radiofrequency ablation Hx of tympanostomy tubes History of heart surgery Social History Smoking Status: Never smoker alcohol intake: never ROS ROS ED Constitutional Constitutional ED: Denies chills, fever(s) or sweats Eyes Eyes: Denies blurry vision or change in vision ENT ENT ED: Denies ear pain or sore throat Cardiovascular Cardiovascular: Denies chest pain, palpitations or racing heartbeat Respiratory/Chest Respiratory/Chest: Denies cough, dyspnea or sputum Gastrointestinal Gastrointestinal: Reports nausea and vomiting; Denies abdominal pain, constipation or diarrhea Genitourinary Genitourinary ED: Denies dysuria, hematuria or urinary frequency Musculoskeletal Musculoskeletal: Denies arthralgias, myalgias or neck pain Integumentary Denies abscess, Abrasions or rash Neurologic Neurologic: Denies headache(s), paresthesias or weakness Psychiatric Psychiatric: Denies anxiety, depression, suicidal ideation or suicidal thoughts Endocrine Endocrinology: Denies polydipsia or polyuria EXAM Physical Exam Const Vital Signs: 02/29/24 16:47 02/29/24 18:59 02/29/24 20:00 Temperature 96.9 F L Temperature Source Temporal Pulse Rate 57 L 55 L 50 L Respiratory Rate 18 16 16 Blood Pressure 106/76 101/71 103/73 Blood Pressure Mean 86 81 83 Pulse Ox 100 100 100 Oxygen Delivery Method Room Air Room Air Room Air 02/29/24 20:15 Temperature 98.3 F Temperature Source Pulse Rate 50 L Respiratory Rate 15 Blood Pressure 143/75 H Blood Pressure Mean 97 Pulse Ox 100 Oxygen Delivery Method Positive well nourished General Appearance ED: Negative for pallor HEENT Reports moist mucous membranes normocephalic and atraumatic Eyes PERRL and EOMs intact bilaterally General Eye ED: Negative for pale conjunctiva or scleral icterus Resp normal respiratory effort and clear to auscultation bilaterally Auscultation: Negative for rales, rhonchi or wheezes Cardio regular rate and regular rhythm GI non-tender, non-distended and no masses Auscultation: normoactive bowel sounds Neuro CN's II-XII intact bilaterally, moves all extremities and no sensory deficits noted Sensorium / Orientation: alert, oriented to person, oriented to place and oriented to time Motor Exam: strength 5/5 throughout Psych mental status grossly normal Skin General Skin Exam: Negative for jaundice or pallor MDM MDM MDM Narrative Medical decision making narrative: 43 year old female presenting with n/v but denies other symptoms. Differential includes GERD, Gastritis, PUD, pancreatitis, dehydration, upper gi bleed, dehydration, anemia, electrolyte abnormalities, pancreatitis. CBC will be obtained to assess white blood cell count, hemoglobin, and platelets, CMP to assess liver function, renal function, electrolytes. lipase to assess for pancreatitis.INR as the patient is on urinalysis to assess for uti, HCG to assess for . Patient given zofran, protonix, IVF. CBC shows normal white blood cell count of 7.1. Hemoglobin 11.7. Patient is on Coumadin however she states she was high last week and they changed her medication dosing in addition to not be able to take it due to nausea vomiting. Hemoglobin last month was 13.6. INR 1.3 and of her subtherapeutic. LFTs are normal. Lipase normal. hCG negative. Urinalysis is contaminated but not consistent with UTI and patient does not have any symptoms. Given that the hemoglobin is low I suspect she might have an upper GI bleed. She has already been given Protonix. Steroids since her INR subtherapeutic she does not need any reversal. Will discuss with Dr. Jimenez. Dr. Jimenez felt the patient could be transferred secondary to the gastric bypass history. Discussed case with [facility] Dr. Larios who is on-call for her surgeon. He recommended transfer. [facility] does state that they have a bed. Patient is refusing transport by EMS because she states she knows how much it cost. [facility] said they would hold a bed for her but she wants to come by car and she can have her sister drive her. Given the fact that she has a GI bleed I did sign her out AMA. She does acknowledge the risk of severe disability, injury, . Impression: 1. Nausea/vomiting 2. Upper GI bleed Lab Data Attestation: I reviewed the patient's lab results. Labs: Laboratory Results - last 24 hr 02/29/24 02/29/24 17:30 18:05 WBC 7.1 RBC 4.14 L Hgb 11.7 L Hct 36.3 L MCV 87.7 MCH 28.3 MCHC 32.2 RDW Std Deviation 43.8 RDW Coeff of Ramesh 13.7 Plt Count 280 MPV 11.4 Immature Gran % (Auto) 0.400 Neut % (Auto) 56.8 Lymph % (Auto) 32.3 [place] % (Auto) 7.9 Eos % (Auto) 1.8 Baso % (Auto) 0.8 Absolute Neuts (auto) 4.0 Absolute Lymphs (auto) 2.29 Nucleated RBC % 0 PT 15.7 H INR 1.3 Sodium 140 Potassium 3.7 Chloride 108 H Carbon Dioxide 27.0 Anion Gap 5 BUN 18 Creatinine 0.76 Estim Creat Clear Calc 96.28 Est GFR (MDRD) Af Amer 106 Est GFR (MDRD) Non-Af 88 BUN/Creatinine Ratio 23.6 H Glucose 99 Calcium 8.9 Total Bilirubin 0.80 AST 25 ALT 29 Alkaline Phosphatase 58 Total Protein 6.3 L Albumin 3.2 Globulin 3.1 Albumin/Globulin Ratio 1.0 Serum , Qual NEGATIVE Urine Color Yellow Urine Clarity Sl. Cloudy Urine pH 7.0 Ur Specific [place] 1.010 Urine Protein 15 H Urine Glucose (UA) Normal Urine Ketones Negative Urine Occult Blood Negative Urine Nitrite Negative Urine Bilirubin Negative Urine Urobilinogen 1 H Ur Leukocyte Esterase 500 H Urine RBC 0 SEEN Urine WBC 5-10 SEEN Ur Squamous Epith Cells 10-25 SEEN Amorphous Sediment 2+ Urine Bacteria 1+ Urine Mucus 0 SEEN Discharge Plan Triage Chief Complaint: Nausea/Vomiting ED Provider: Isra Horner Dx/Rx/DC Orders Instructions: GI Bleeding Causes and Tests, ED Anemia, Type Not Specified (Adult) Prescriptions: No Action metoprolol tartrate 25 MG tablet 37.5 mg PO BID sotalol 120 mg Tablet 120 mg PO BID multivitamin with iron Tablet 1 tab PO DAILY warfarin [Jantoven] 2.5 mg tablet 5 mg PO MOWETHSA warfarin 5 mg tablet 2.5 mg PO SUTUFR Patient Comments: Take 1 tablet by mouth once daily. Or as directed by anticoagulation clinic. doxycycline hyclate 100 mg tablet 50 mg PO BID Primary Care Provider: Kylah Palma Referrals: Kylah Palma PA [Primary Care Provider] - Print Language: Tamazight Disposition Disposition: Against Medical Advice Discharge Date/Time: 02/29/24 20:24
[2024-02-29 18:18] LABS: AST(SGOT) 25 U/L (15-37); Alanine Aminotransfer ALT/SGPT 29 U/L (13-56); Albumin, Serum 3.2 g/dL (3.2-5.0); Alkaline Phosphatase 58 U/L (45-117); Anion Gap 5 (5-15); BUN 18 mg/dL (7-18); BUN/Creat Ratio 23.6 RATIO (10-20); Calcium,Total 8.9 mg/dL (8.5-10.1); Chloride 108 mmol/L (98-107); Creatinine, Serum 0.76 mg/dL (0.55-1.02); EST Glomerular Filtration Rate 88 mL/min (>60); Est Glom Filt Rate - Afr Amer 106 mL/min (>60); Estimated Creatinine Clearance 96.28 ml/min; Globulin 3.1 g/dL (2.2-4.2); Glucose 99 mg/dL (74-106); Potassium 3.7 mmol/L (3.5-5.1); Protein, Total 6.3 g/dL (6.4-8.2); Sodium Level 140 mmol/L (136-145)
[2024-02-29 18:23] LABS: Mucous, Urine 0 SEEN /hpf (<or=2+); Red Blood Cells-Urine 0 SEEN /hpf (0-5)
[2024-02-29 18:25] LABS: Color, Urine Yellow (Yellow); Glucose, Dipstick Normal (Normal); Ketone-Dipstick Negative (Negative); Leukocyte Esterase-Dipstick 500 /ul (Negative); Nitrite-Dipstick Negative (Negative); Occult Blood-Urine Negative /ul (Negative); Protein-Dipstick 15 mg/dl (Negative); Urine Bilirubin Dipstick Negative (Negative); Urine Clarity Sl. Cloudy (Clear); Urine Urobilinogen 1 mg/dl (Normal)
[2024-02-29] MEDS: Ondansetron 4 MG/2 ML Vial IV (18:30)
[2024-02-29 18:42] LABS: Amorphous Sediment 2+; Bacteria 1+ /hpf (None Seen); Squamous Epithelial Cells - UA 10-25 SEEN /hpf (5-10)
[2024-02-29 18:43] LABS: White Blood Cells 5-10 SEEN /hpf (0-5)
[2024-02-29 18:59] VITALS: BP 101/71; PULSE 55; RESP 16; O2SAT 100
[2024-02-29] MEDS: Pantoprazole Sodium 40 MG in 0.9% Normal Saline (100mL MB+) 100 ML 330 MG IV (19:11)
[2024-02-29 20:00] VITALS: BP 103/73; PULSE 50; RESP 16; O2SAT 100
[2024-02-29 20:15] VITALS: BP 143/75; PULSE 50; RESP 15; TEMP 36.8; O2SAT 100
--- NOTE | 2024-02-29 20:31 | ED.RN ---
patient informed that we would not have GI coverage here and d/t recent surgery by Dr. Mercer, she would need to be transferred to [facility]. patient refused to be transported by [facility]. Dr. Horner does not feel like patient is appropriate for private car transport d/t abnormal lab values. patient requesting to leave regardless. patient signed AMA paperwork with Dr. Horner.
== END 2024-02-29 20:24 | disposition left against medical advice (07) ==
PROVIDERS: Emergency Provider Student in an Organized Health Care Education/Training Program; PCP Physician Assistant; Visit Provider Student in an Organized Health Care Education/Training Program
DX: R11.2 Nausea with vomiting, unspecified (principal); I48.91 Unspecified atrial fibrillation; K92.2 Gastrointestinal hemorrhage, unspecified; Z98.84 Bariatric surgery status; Z79.01 Long term (current) use of 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; Z53.29 Procedure and treatment not carried out because of patient's decision for other reasons
CPT/HCPCS: 80053; 81001; 84703; 85025; 85610; 96361; 96374; 99283; J7030; A4216; J2405

== ENCOUNTER 2024-08-26 05:37 | Emergency (ER) | payer OTHER, BC, SELFPAY ==
[2024-08-26 05:40] VITALS: BP 115/85; PULSE 67; RESP 18; TEMP 36.4; O2SAT 100; BMI 24.7
--- NOTE | 2024-08-26 05:50 | CT_ITS ---
INDICATION: Trauma EXAMINATION: CT CERVICAL SPINE - CT Spine Cervical W/O Contrast Injection TECHNIQUE: Helically acquired images were obtained of the cervical spine. 2D reformatted images were reviewed. The protocol utilizes one or more of the following dose reduction techniques: automated exposure control, adjustment of mA and/or kV according to patient size,and/or use of iterative reconstruction technique. IV Contrast dosage and agent: None. RADIATION DOSAGE (If Supplied By Facility): CTDIvol = ( 13.31 ) mGy, DLP = ( 268.40 ) mGycm COMPARISON: No relevant prior comparison study available FINDINGS: VERTEBRAE: No fracture or traumatic subluxation. No discrete lytic or blastic abnormality. Normal alignment. Normal craniocervical junction and cervicothoracic junction. DISCS and SPINAL CANAL: Disc heights are preserved. No critical stenosis. NECK SOFT TISSUES: No prevertebral soft tissue swelling. There is no cervical adenopathy. LUNG APICES: Clear. CT/Spine Cervical without Contras IMPRESSION: No evidence of acute cervical spinal fracture or spondylolisthesis. Electronically Signed: Lashonda Padgett MD at 6:50 EST ,
--- NOTE | 2024-08-26 05:50 | CT_ITS ---
INDICATION: Trauma EXAMINATION: CT BRAIN - CT Head or Brain W/O Contrast Injection TECHNIQUE: Multiple axial images were obtained of the head without intravenous contrast. The protocol utilizes one or more of the following dose reduction techniques: automated exposure control, adjustment of mA and/or kV according to patient size,and/or use of iterative reconstruction technique. IV Contrast dosage and agent: None. RADIATION DOSAGE (If Supplied By Facility): CTDIvol = ( 44.99 ) mGy, DLP = ( 762.36 ) mGycm COMPARISON: No relevant prior comparison study available FINDINGS: BRAIN PARENCHYMA: No intra- or extra-axial hemorrhage. No evidence of acute infarct. No intracranial mass or mass effect. There is preservation of the draper/white matter interface. Posterior fossa structures are unremarkable. CSF SPACES: Appropriate for age. No hydrocephalus. Basal cisterns are patent. CALVARIUM, SKULL BASE, PARANASAL SINUSES AND MASTOID AIR CELLS: Clear. No discrete lytic or blastic abnormalities. ORBITS: Both globes, extraocular muscles, optic nerves and retrobulbar fat appear unremarkable. ASPECTS Score for Acute Strokes: 10 CT/Brain/Head without Contrast IMPRESSION: Negative Brain CT without contrast. Electronically Signed: Lashonda Padgett MD at 6:49 EST ,
--- NOTE | 2024-08-26 05:50 | CT_ITS ---
INDICATION: Trauma EXAMINATION: CT FACIAL BONES - CT Maxillofacial W/O Contrast Injection TECHNIQUE: Helically acquired images were obtained of the facial bones. A radiation dose optimization technique was used for this scan. The protocol utilizes one or more of the following dose reduction techniques: automated exposure control, adjustment of mA and/or kV according to patient size,and/or use of iterative reconstruction technique. IV Contrast dosage and agent: None. RADIATION DOSAGE (If Supplied By Facility): CTDIvol = ( 29.38 ) mGy, DLP = ( 525.42 ) mGycm COMPARISON: FINDINGS: SOFT TISSUES: No focal subcutaneous swelling. No discrete fluid collections. VISUALIZED PARANASAL SINUSES: Clear. VISUALIZED MASTOID AIR CELLS: Clear. FACIAL BONES, MANDIBLE AND TMJs: No displaced facial bone fracture. No lytic or blastic abnormality. VISUALIZED DENTITION: Multiple dental caries. ORBITAL CONTENTS: Both globes, extraocular muscles and retrobulbar fat appear unremarkable. CT/Sinus/Facial Bone IMPRESSION: No acute injury of the facial bones. Electronically Signed: Lashonda Padgett MD at 6:55 EST ,
--- NOTE | 2024-08-26 05:52 | EX.ED.GENINJ ---
HPI History of Present Illness Chief Complaint: Head Injury Narrative Narrative: Chief complaint and HPI: Head injury. 44-year-old female with history of atrial fibrillation on warfarin, WPW presents from work after a head injury. Patient states that she was at a water station when a large metal object fell onto her head/face. Patient states it weighs approximately 50 pounds. Patient denies LOC. She denies falling to the ground. Patient has a small laceration to the medial left eyebrow. Unknown if up-to-date on tetanus. She endorses pain only at the site of her laceration. Denies any headache, vision changes, neck pain, back pain, chest pain, shortness of breath, abdominal pain, nausea, vomiting, weakness, numbness/tingling. Review of systems: See HPI Medications: As listed on the chart Allergies: As listed on the chart PFSH: Per chart Vital signs: As listed on the chart. Reviewed. Physical exam: Gen: A&O x3, NAD Head: Normocephalic, atraumatic Eyes: No sclera icterus, conjunctiva clear, PERRL, EOMI, 1 cm laceration to the medial left eyebrow-currently no active bleeding but gaping and will need repaired ENT: TMs clear BL, moist mucous membranes, no swelling/lacerations/blood in the mouth or the nares, No nasal septal hematoma, facial tenderness where laceration is located Neck: Trachea midline, No JVD, Nontender, full range of motion CV: RRR, no murmurs, no chest wall TTP Resp: Lungs CTA BL, no w/r/c GI: Abd soft, non-distended, non-tender, no r/r/g Musc: Full ROM, no deformity, no spinal TTP, no michelle step-offs Skin: Warm, dry, intact Neuro: Alert, oriented, grossly intact, sensation intact, GCS 15 Psych: Cooperative, appropriate mood and affect [facility] Medical History Presence of combination internal cardiac defibrillator (ICD) and pacemaker Atrial flutter Afib Fatigue Borderline diabetes Heart disease Shortness of breath Home Medications ?Medication ?Instructions ?Recorded ?Last Taken ?Type metoprolol tartrate 25 mg tablet 37.5 mg PO BID 02/21/14 12/16/19 History sotalol 120 mg tablet 120 mg PO BID 06/12/21 Unknown History multivitamin with iron 1 tab PO DAILY 05/03/23 Unknown History warfarin 2.5 mg tablet (Jantoven) 5 mg PO MOWETHSA 05/03/23 Unknown History warfarin 5 mg tablet 2.5 mg PO SUTUFR 05/03/23 Unknown History doxycycline hyclate 100 mg tablet 50 mg PO BID 01/18/24 Unknown History Allergy/AdvReac Type Severity Reaction Status Date / Time metformin AdvReac Nausea/Vom/ Verified 08/26/24 05:40 Diarrhea NSAIDS (Non-Steroidal AdvReac Other Verified 08/26/24 05:40 Anti-Inflamma Family History Mother Diabetes Hypertension Father CVA (cerebral vascular accident) Surgical History S/P gastric bypass H/O cardiac radiofrequency ablation Hx of tympanostomy tubes History of heart surgery Social History Smoking Status: Never smoker alcohol intake: never EXAM Physical Exam Const Vital Signs: 08/26/24 05:40 08/26/24 05:44 Temperature 97.6 F L Temperature Source Oral Pulse Rate 67 Respiratory Rate 18 Blood Pressure 115/85 H Blood Pressure Mean 95 Pulse Ox 100 Oxygen Delivery Method Room Air MDM MDM MDM Narrative Medical decision making narrative: 44-year-old female with history of atrial fibrillation on warfarin presents for evaluation of head injury and facial laceration. See physical exam findings. Differential diagnosis includes but is not limited to facial laceration, facial contusion, facial fracture, intracranial bleed, skull fracture, neck fracture. Patient is on warfarin and therefore we will get a H&H and INR in case reversal is needed. Tetanus updated. CT head, neck, face ordered. Laceration was repaired and patient tolerated this well. See below. Patient without anemia. Her INR is 1.5. This is subtherapeutic given her warfarin. Patient was educated on this. She will follow-up with her PCP to have her warfarin adjusted. CT of the brain, cervical spine, max facial without traumatic injury. Patient is stable to discharge home. She has to follow-up with [facility] to have her sutures removed in 5 days. She confirmed understanding. Monitor for signs of infection. She needs to get a drug screen done at the [facility] clinic. Laceration Repair Indication: Laceration Location: 1 cm left eyebrow laceration Consent: Risks, benefits, and alternatives discussed with patient and consent obtained Procedure: A time out was performed. The area was prepped and draped in the usual sterile fashion. Local anesthesia was achieved using 3 cc of 1% Lidocaine with epinephrine. The wound was copiously irrigated and cleansed. 2sutures were placed using 6-0 Ethilon in an interrupted fashion. The estimated blood loss was minimal. Bacitracin. The patient tolerated the procedure well without complications. Foreign Material: None Debridement: None Follow-up: Anticipatory guidance, as well as standard post-procedure care, was explained. Return precautions are given. Follow-up visit set for suture removal and evaluation of the laceration. Impression: 1. Closed head injury 2. Facial laceration 3. Subtherapeutic INR Lab Data Labs: Laboratory Results - last 24 hr 08/26/24 06:18 Hgb 12.6 PT 18.2 H INR 1.5 Radiography Diagnostic Testing: Clinical Impression(s) from Imaging Studies Brain CT 08/26/24 05:50 IMPRESSION: Negative Brain CT without contrast. Electronically Signed: Lashonda Padgett MD at 6:49 EST , Cervical Spine CT 08/26/24 05:50 IMPRESSION: No evidence of acute cervical spinal fracture or spondylolisthesis. Electronically Signed: Lashonda Padgett MD at 6:50 EST , Facial/Sinus 08/26/24 05:50 IMPRESSION: No acute injury of the facial bones. Electronically Signed: Lashonda Padgett MD at 6:55 EST , Discharge Plan Triage Chief Complaint: Head Injury ED Provider: Rogelio Campuzano Dx/Rx/DC Orders Clinical Impression: Laceration of face, Closed injury of head Instructions: ED Head Injury (Adult), ED Laceration, All Closures Prescriptions: No Action metoprolol tartrate 25 MG tablet 37.5 mg PO BID sotalol 120 mg Tablet 120 mg PO BID multivitamin with iron Tablet 1 tab PO DAILY warfarin [Jantoven] 2.5 mg tablet 5 mg PO MOWETHSA warfarin 5 mg tablet 2.5 mg PO SUTUFR Patient Comments: Take 1 tablet by mouth once daily. Or as directed by anticoagulation clinic. doxycycline hyclate 100 mg tablet 50 mg PO BID Primary Care Provider: Kylah Palma Referrals: Kylah Palma, PA [Primary Care Provider] - Activity Restrictions/Additional Instructions: You need to follow-up with the [facility]: Walk-in care and occupational medicine. [facility], [address], [place] [id number]. . Sutures need to be removed in 5 days. Monitor for signs of infection. No hot tubs, swimming pools, bathtubs until fully healed. Okay to shower in 24 hours. Monitor for signs of concussion that we talked about. Print Language: Turkish Disposition Disposition: Home, Self Care
[2024-08-26] MEDS: Lidocaine 1% /Epi 1:100 (20ml) 20 ML Vial INFILT (06:12)
[2024-08-26] MEDS: Diphth,Pertuss(Acell),Tet Vac 0.5 ML Vial IM (06:12)
[2024-08-26 06:51] LABS: International Normalized Ratio 1.5; Prothrombin Time (Protime)PT. 18.2 SECONDS (11.7-14.9)
[2024-08-26 06:52] LABS: Hemoglobin 12.6 g/dL (12.0-15.0)
--- NOTE | 2024-08-26 07:21 | ED.RN ---
PT ADVISED TO GO STRAIGHT TO THE [facility] FOR HER DRUG SCREENING. STAFF FROM [facility] LAY AT THE BEDSIDE WITH PT DOING PAPERWORK FOR THEIR FACILITY. THEY WILL BE GOING STARIGHT OVER FROM D/C
== END 2024-08-26 07:35 | disposition home or self-care (01) ==
PROVIDERS: Emergency Provider Surgery; PCP Physician Assistant; Visit Provider Surgery
DX: S01.81XA Laceration without foreign body of other part of head, initial encounter (principal); I48.91 Unspecified atrial fibrillation; T45.516A Underdosing of 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, initial encounter; Z79.01 Long term (current) use of 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; W20.8XXA Other cause of strike by thrown, projected or falling object, initial encounter; Y99.0 Civilian activity done for income or pay; Y92.89 Other specified places as the place of occurrence of the external cause
CPT/HCPCS: 12011; 70450; 70486; 72125; 85018; 85610; 90715; 99283

== ENCOUNTER 2025-02-08 18:54 | Emergency (ER) | payer BC, SELFPAY ==
[2025-02-08 18:55] VITALS: BP 101/73; PULSE 57; RESP 16; TEMP 36.8; O2SAT 100; BMI 23.1
--- NOTE | 2025-02-08 20:04 | EX.ED.DYSGE1 ---
HPI History of Present Illness Chief Complaint: Nausea/Vomiting Detail of Chief Complaint: Vomiting Informant: patient Narrative Narrative: Patient presents with vomiting that started yesterday. She is thrown up about 12 times in last 24 hours. She complains of concern for a bleeding ulcer as vomitus brown and [id number]. She denies black tarry stool. She describes some upper abdominal discomfort. She has history of gastric bypass surgery 2 years ago. She has had a cholecystectomy. Denies recent travel or surgery. Denies sick contacts. Denies fever. She has had no diarrhea. She is on Coumadin for history of A-fib. Denies dysuria urgency or frequency. [facility] Medical History (Updated 02/08/25 @ 22:[address] Enriqueta Duffy DO) HOCM (hypertrophic obstructive cardiomyopathy) Presence of combination internal cardiac defibrillator (ICD) and pacemaker Atrial flutter Afib Fatigue Borderline diabetes Heart disease Shortness of breath Home Medications ?Medication ?Instructions ?Recorded ?Last Taken ?Type metoprolol tartrate 25 mg tablet 37.5 mg PO BID 02/21/14 12/16/19 History sotalol 120 mg tablet 120 mg PO BID 06/12/21 Unknown History multivitamin with iron 1 tab PO DAILY 05/03/23 Unknown History warfarin 2.5 mg tablet (Jantoven) 5 mg PO MOWETHSA 05/03/23 Unknown History warfarin 5 mg tablet 2.5 mg PO SUTUFR 05/03/23 Unknown History doxycycline hyclate 100 mg tablet 50 mg PO BID 01/18/24 Unknown History lansoprazole 30 mg capsule,delayed 30 mg PO DAILY #14 caps 02/08/25 Unknown Rx release (Prevacid) metoclopramide HCl 10 mg tablet 10 mg PO 4X/DAY PRN Headache #20 02/08/25 Unknown Rx tabs Allergy/AdvReac Type Severity Reaction Status Date / Time metformin AdvReac Nausea/Vom/ Verified 02/08/25 18:55 Diarrhea NSAIDS (Non-Steroidal AdvReac Other Verified 02/08/25 18:55 Anti-Inflamma Family History Mother Diabetes Hypertension Father CVA (cerebral vascular accident) Surgical History S/P gastric bypass H/O cardiac radiofrequency ablation Hx of tympanostomy tubes History of heart surgery Social History Smoking Status: Never smoker alcohol intake: never ROS ROS ED Review of Systems ROS Unobtainable: other Constitutional Constitutional ED: Reports lethargy; Denies chills, fever(s), sweats or weight loss Eyes Eyes: Denies blurry vision, change in vision or diplopia ENT ENT ED: Denies rhinorrhea or sore throat Cardiovascular Cardiovascular: Denies chest pain, orthopnea or racing heartbeat Respiratory/Chest Respiratory/Chest: Denies cough, dyspnea, dyspnea on exertion, orthopnea or sputum Gastrointestinal Gastrointestinal: Reports abdominal pain, nausea and vomiting; Denies diarrhea Genitourinary Genitourinary ED: Denies dysuria, hematuria or urinary frequency Musculoskeletal Musculoskeletal: Denies arthralgias, back pain, myalgias or neck pain Integumentary Denies abscess, Abrasions or rash Neurologic Neurologic: Denies headache(s) or weakness Psychiatric Psychiatric: Denies anxiety, depression or suicidal thoughts Endocrine Endocrinology: Denies polydipsia, polyphagia or polyuria Hematologic/Lymphatic Hematologic/Lymphatic: Denies easy bleeding, easy bruising or lymphadenopathy Allergic/Immunologic Allergic/Immunologic ED: Denies mouth swelling, tongue swelling or urticaria EXAM Physical Exam Const Vital Signs: 02/08/25 18:55 02/08/25 21:16 02/08/25 22:02 Temperature 98.2 F 98.2 F Temperature Source Oral Oral Pulse Rate 57 L 75 62 Respiratory Rate 16 14 16 Blood Pressure 101/73 100/70 108/71 Blood Pressure Mean 82 80 83 Pulse Ox 100 100 100 Oxygen Delivery Method Room Air Room Air Room Air Positive well nourished and well developed General Appearance ED: well developed and NAD HEENT Reports TM's clear and moist mucous membranes normocephalic and atraumatic; Negative for trauma or tenderness Tympanic Membrane ED: Yes TM's clear Eyes PERRL and EOMs intact bilaterally General Eye ED: Negative for pale conjunctiva or scleral icterus Neck no lymphadenopathy, supple and no JVD General: Negative for tenderness Chest Wall inspection of chest normal and palpation of chest normal Chest: Negative for tenderness Resp normal respiratory effort and clear to auscultation bilaterally Effort and Inspection: Negative for respiratory distress or pain with movement Auscultation: Negative for rhonchi, wheezes or diminished lung sounds Cardio regular rate, regular rhythm, S1 normal heart sound, S2 normal heart sound and no murmurs Peripheral Pulses: pulses 2+ throughout GI normal to inspection, nondistended, normoactive bowel sounds, soft to palpation, non-distended and no masses GI Narrative: Tenderness palpation in the epigastric region. There is no rebound, rigidity, or peritoneal signs. No mass palpated. Back/Spine no CVA tenderness and no thoracic nor lumbar tenderness Extremity normal to inspection General Extremety ED: Negative for edema General Extremity: Negative for edema Neuro oriented x3, CN's II-XII intact bilaterally, no sensory deficits noted and gait normal Sensorium / Orientation: awake, alert, oriented to person, oriented to place and oriented to time Motor Exam: strength 5/5 throughout and strength abnormal Psych mental status grossly normal Skin no rashes or lesions noted and no wounds MDM MDM MDM Narrative Medical decision making narrative: Patient presents with upper abdominal discomfort with emesis and coffee-ground type emesis. Patient on Coumadin for history of A-fib. She clinically looks well. IV line established. CBC with differential obtained showed a white count of 7.9 with hemoglobin 12 and platelet count of 320. Chemistries unremarkable. BUN was 16 and creatinine 0.74. Lactate less than 1.0. Lipase normal at 61. hCG was negative. INR was 2.1. CT scan of the abdomen pelvis with IV contrast was unremarkable. While in department she received a liter Mustain fluid bolus. She was given Reglan. She had no further vomiting. We discussed admission for symptom control and hydration versus outpatient treatment with antiemetic. She does not want to be admitted and would prefer to go home with antiemetics. She will return if persistent vomiting, black tarry stool, hematemesis, or condition should worsen anyway. I will start patient on Prevacid. Patient scheduled to have an upper scope within the next couple months. Lab Data Attestation: I reviewed the patient's lab results. Labs: Laboratory Results - last 24 hr 02/08/25 02/08/25 02/08/25 19:54 20:11 20:15 WBC 7.9 RBC 4.33 Hgb 12.0 Hct 36.6 L MCV 84.5 MCH 27.7 MCHC 32.8 RDW Std Deviation 40.9 RDW Coeff of Ramesh 13.3 Plt Count 320 MPV 10.7 Immature Gran % (Auto) 0.300 Neut % (Auto) 53.3 Lymph % (Auto) 36.7 Slope % (Auto) 5.8 Eos % (Auto) 2.8 Baso % (Auto) 1.1 H Absolute Neuts (auto) 4.2 Absolute Lymphs (auto) 2.90 Nucleated RBC % 0 PT 24.2 H INR 2.1 Sodium 140 Potassium 3.8 Chloride 106 Carbon Dioxide 24.6 Anion Gap 9 BUN 16 Creatinine 0.74 Estim Creat Clear Calc 97.86 Est GFR (MDRD) Non-Af 102 BUN/Creatinine Ratio 21.7 H Glucose 99 Lactic Acid < 1.0 Calcium 8.9 Lipase 61 Serum , Qual NEGATIVE Radiography Diagnostic Testing: Clinical Impression(s) from Imaging Studies Abdomen/Pelvis CT 02/08/25 21:10 IMPRESSION: No acute findings in the abdomen and pelvis. Hepatomegaly. 17 mm right inferior hepatic lobe low-attenuation lesion, likely a hemangioma. Recommend further evaluation with MRI of the liver. Reading Location: [facility] Discharge Plan Triage Chief Complaint: Nausea/Vomiting ED Provider: Enriqueta Duffy Dx/Rx/DC Orders Clinical Impression: Vomiting Instructions: ED Vomiting (Adult) Prescriptions: New metoclopramide HCl 10 mg tablet 10 mg PO 4X/DAY PRN (Reason: Headache) Qty: 20 0RF lansoprazole [Prevacid] 30 mg capsule,delayed release(DR/EC) 30 mg PO DAILY Qty: 14 0RF No Action metoprolol tartrate 25 MG tablet 37.5 mg PO BID sotalol 120 mg Tablet 120 mg PO BID multivitamin with iron Tablet 1 tab PO DAILY warfarin [Jantoven] 2.5 mg tablet 5 mg PO MOWETHSA warfarin 5 mg tablet 2.5 mg PO SUTUFR Patient Comments: Take 1 tablet by mouth once daily. Or as directed by anticoagulation clinic. doxycycline hyclate 100 mg tablet 50 mg PO BID Primary Care Provider: Yissel Marcial Referrals: Kylah Palma, PA [Non-Staff] - Print Language: Afghan Disposition Disposition: Home, Self Care
[2025-02-08] MEDS: Metoclopramide 10 MG/2 ML Vial IV (20:10)
[2025-02-08] MEDS: 0.9% Normal Saline (1000mL) 1,000 ML 999 ML IV (20:10)
[2025-02-08 20:14] LABS: Absolute Neutrophil Count 4.2 X10^3/uL (2.0-7.7); Basophil# 0.09 X10^3/uL; Basophil% 1.1 % (0-1); Eosinophil# 0.22 X10^3/uL; Eosinophils% 2.8 % (0-5); Hematocrit 36.6 % (37-47); Lymphocyte % 36.7 % (19-41); Mean Corp Hgb Conc 32.8 g/dL (32-36); Mean Corpuscular Hgb 27.7 pg (27.0-32.0); Mean Corpuscular Volume 84.5 fL (81-99); Mean Platelet Vol. 10.7 fl (6.2-12.0); Monocyte# 0.46 X10^3/uL; Monocyte% 5.8 % (0-10); NRBC Flagged by Analyzer 0 % (0-5); Neutrophil # 4.21 X10^3/uL (2.7-7.7); Neutrophil % 53.3 % (47-70); Platelet Count 320 K/mm3 (150-450); RBC Distribution Width CV 13.3 % (11.6-14.6); RBC Distribution Width SD 40.9 fl (35.1-43.9); Red Blood Count 4.33 M/mm3 (4.2-5.4); White Blood Count 7.9 K/mm3 (4.4-11.0)
[2025-02-08] MEDS: Pantoprazole Sodium 40 MG in 0.9% Normal Saline (100mL MB+) 100 ML 330 MG IV (20:22)
[2025-02-08 20:30] LABS: Anion Gap 9 (5-15); BUN 16 mg/dL (4-19); BUN/Creat Ratio 21.7 RATIO (10-20); Calcium,Total 8.9 mg/dL (7.6-11.0); Carbon Dioxide 24.6 mmol/L (21.0-32.0); Chloride 106 mmol/L (98-108); Creatinine, Serum 0.74 mg/dL (0.70-1.20); EST Glomerular Filtration Rate 102 (>60); Estimated Creatinine Clearance 97.86 ml/min (50-250); Glucose 99 mg/dL (70-99); Lipase 61 U/L (13-75); Potassium 3.8 mmol/L (3.3-5.1); Sodium Level 140 mmol/L (133-145)
[2025-02-08 20:34] LABS: Internal QC Validated? YES +Cl - CLEAR BKGD; Pregnancy, Serum, hCG Quali. NEGATIVE Negative
[2025-02-08 20:35] LABS: Record Kit Lot#, Serum Preg. 929381
[2025-02-08 20:45] LABS: International Normalized Ratio 2.1; Prothrombin Time (Protime)PT. 24.2 SECONDS (11.7-14.9)
[2025-02-08 21:05] LABS: Lactic Acid < 1.0 mmol/L (0.0-2.0)
--- NOTE | 2025-02-08 21:10 | CT_ITS ---
PROCEDURE: ABDOMEN/PELVIS W IV CONT ONLY 02/08/2025 REASON FOR EXAM: Vomiting, GASTRIC BYPASS SX, TECHNIQUE: Abdomen and pelvis CT with intravenous contrast. Coronal and Sagittal reconstruction series were provided. PATIENT PREPARATION: Per protocol ORAL CONTRAST TYPE: None. AMOUNT: mL CONTRAST: Omnipaque 350 VOLUME: 100 mL Not Provided Gauge IV One or more dose reduction techniques were used (e.g., Automated exposure control, adjustment of the mA and/or kV according to patient size, use of iterative reconstruction technique. COMPARISON: None FINDINGS: Lung bases: Left lateral chest wall nerve stimulating device. Status post median sternotomy. Liver: Hepatomegaly, craniocaudal length 20.1 cm. 17 mm low-attenuation right inferior lobe with suggestion of nodular mural enhancement, likely represents a hemangioma. Gallbladder: No ductal dilation. Cholecystectomy. Spleen: Normal size. Pancreas: Normal size without evidence of mass surrounding inflammation or ductal dilation. Adrenals: Unremarkable. Kidneys: Normal renal sizes. No hydronephrosis. Bladder: Urinary bladder is unremarkable. Reproductive Organs: Bilateral adnexal cysts. IUD noted within normal position. Bowel: Status post [id number]. Nonspecific wall thickening of the gastric pouch. No bowel dilation or wall thickening. Appendix: The appendix is not identified. There is no inflammatory process identified in the right lower quadrant to suggest appendicitis. Lymph nodes: No suspicious lymph node enlargement. Vasculature: Mild diffuse atherosclerotic calcifications are noted. Peritoneum / Retroperitoneum: No ascites. No pneumoperitoneum. Bones: Unremarkable. Soft tissue: Mild diffuse subcutaneous edema. CT/Abdomen/Pelvis W IV Cont ONLY IMPRESSION: No acute findings in the abdomen and pelvis. Hepatomegaly. 17 mm right inferior hepatic lobe low-attenuation lesion, likely a hemangioma. Recommend further evaluation with MRI of the liver. Reading Location: [facility]
[2025-02-08 21:16] VITALS: BP 100/70; PULSE 75; RESP 14; O2SAT 100
[2025-02-08 22:02] VITALS: BP 108/71; PULSE 62; RESP 16; TEMP 36.8; O2SAT 100
== END 2025-02-08 23:09 | disposition home or self-care (01) ==
PROVIDERS: Emergency Provider Emergency Medicine; PCP Clinical Nurse Specialist Adult Health; Visit Provider Emergency Medicine
DX: R11.2 Nausea with vomiting, unspecified (principal); I42.1 Obstructive hypertrophic cardiomyopathy; R10.9 Unspecified abdominal pain; Z79.01 Long term (current) use of 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; Z95.810 Presence of automatic (implantable) cardiac defibrillator; Z98.84 Bariatric surgery status; Z90.49 Acquired absence of other specified parts of digestive tract
CPT/HCPCS: 74177; 80048; 83605; 83690; 84703; 85025; 85610; 96365; 96375; 99284; Q9967; A4216

== ENCOUNTER 2025-08-13 19:25 | Emergency (ER) | payer BC, SELFPAY ==
[2025-08-13 19:26] VITALS: BP 125/87; PULSE 98; RESP 16; TEMP 36.1; O2SAT 100; BMI 22.2
[2025-08-13 19:39] VITALS: O2SAT 98
--- OUTSIDE RECORDS SUMMARY | 2025-08-13 20:39 | XMS RPT_ITS | CCD ---
Author Organization [facility] Care Team Providers Care Motion Study Analyst Name Role Phone Johanna Anderson LPN Unavailable Unavailab Kylah Ceja PA-C Primary Care Provider Oneyda Recinos MD Unavailable Kylah Palma PA-C Primary Care Provider Oneyda Recinos MD Unavailable Kylah Palma PA-C Primary Care Provider Kylah Palma PA-C Primary Care Provider Oneyda Recinos MD Unavailable Jayjay Ortiz MD Unavailable 15, Pharmacist Unavailable Oneyda Recinos MD Unavailable Jayjay Ortiz MD Unavailable Kylah Palma PA-C Primary Care Provider Provider Joyce ZHOU Unavailable Unavailable Edd Palma PA-C Primary Care Provider Unavailable Hamatthias 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.Radha PRESCOTT Unavailable Suppan 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.GENIE Yissel A Unavailable Suppan 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.GENIE Yissel A Unavailable [phone] Suppan 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.GENIE Yissel A Unavailable [phone] Tony Dimas MD Unavailable Suppan 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.GENIE Yissel A Primary Care Provi ricardo Dr. Enriqueta Duffy DO Emergency Provider [phone] Suppan [employer], Yissel Primary Care Provider Kylah Palma Primary Care Unavailable Rogelio Campuzano Attending Unavailabl e Suppan, Yissel Primary Care Unavailable Enriqueta Duffy Attending Unavailable Kylah Palma Primary Care Unavailable Isra Horner Attending Unavailable PalmaKylah mariano Referring Unavailable Lio Ag Attending Unavailable Palma, Kylah Keita Primary Care Unavailable Palma, Kylah Keita Primary Care Unavailable Palma, Kylah Keita Referring Unavailable Lio Ag Attending Unavailable ELLEN DODSON Attending Unavailable ESPERANZA MERCER Referring Unavailable SUPPAN, YISSEL A Primary Care Unavailable TRI PARKER Attending Unavailable TRI PARKER Admitting Unavailable PALMA, EDD KEITA Primary Care Unavailable TRI PARKER Attending Unavailable EDD PALMA Primary Care Unavailable ONEYDA RECINOS Attending Unavailable EDD PALMA Primary Care Unavailable ONEYDA RECINOS Referring Unavailable EDD PALMA Primary Care Unavailable SUPPAN, YISSEL A Attending Unavailable SELF Referring Unavailable SUPPAN, YISSEL A Primary Care Unavailable MARYANA BAILEY Referring Unavailable SUPPAN, YISSEL A Primary Care Unavailable ONEYDA RECINOS Referring Unavailable SUPPAN, YISSEL A Primary Care Unavailable ONEYDA RECINOS Referring Unavailable SUPPAN, YISSEL A Primary Care Unavailable TRI PARKER Attending Unavailable SUPPAN, YISSEL A Primary Care Unavailable SUPPAN, YISSEL A Attending Unavailable SUPPAN, YISSEL A Primary Care Unavailable ALEC BLAIR Attending Unavailable SUPPAN, YISSEL A Referring Unavailable PALMAEDDORY Primary Care Unavailable PALMA, EDD GOLDBERGORY Primary Care Unavailable ONEYDA RECINOS Referring Unavailable SUPPAN, YISESL A Primary Care Unavailable ALEC BLAIR Referring Unavailable EDD PALMA Primary Care Unavailable BISMARK BLAIRILY Attending Unavailable BISMARK BLAIRILY Referring Unavailable PALMA, EDD GOLDBERGORY Primary Care Unavailable SUPPAN, YISSEL A Referring Unavailable SUPPAN, YISSEL A Primary Care Unavailable ALEC BLAIR Attending Unavailable SUPPAN, YISSEL A Primary Care Unavailable Allergies Allergy Classification Reported Allergen(s) Allergy Type Date of Onset Reaction(s) Facility metFORMIN (4 sources) metFORMIN Drug Allergy 2 Diarrhea [facility] Work Phone: (20 sources) metFORMIN; Translations: [METFORMIN] Drug Allergy 2 Diarrhea [facility] Work Phone: (20 sources) Non-steroidal anti-inflammator y agent; Translations: [NSAIDS (NON-STEROIDAL ANTI-INFLAMMATOR Y DRUG)] Propensity to adverse reactions to drug 4 [facility] Work Phone: (1 source) Nonsteroidal Anti-inflammator y Compounds Propensity to adverse reactions 5 Other [facility] Comment on above: d/t weight loss surg geoffrey history (1 source) metFORMIN Drug Allergy 5 [facility] (1 source) NSAIDs Drug allergy (disorder) 5 [facility] (2 sources) Non-steroidal anti-inflammator y agent Propensity to adverse reactions to drug 4 [facility] Work Phone: Medications Current Medications Medication Drug Class(es) Dates Sig (Normalized) Sig (Original) amoxicillin 500 mg oral capsule (1 source) Penicillin-class Antibacterial Start: 03-02-2025 End: 03-02-2025 take 4 capsules by mouth once amoxicillin (AMOXIL) 500 mg capsule Indications: 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 4 capsule 03/02/2025 03/02/2025 Active calcium carbonate 500 mg chewable tablet (20 sources) Start: 07-14-2024 End: 07-14-2025 take 1 tablet by mouth three times daily calcium carbonate (TUMS) 500 mg chew Indications: S/P gastric bypass Take 1 tablet by mouth three times a day. 270 tablet 3 07/14/2024 07/14/2025 Active cholecalciferol, vitamin D3, (VITAMIN D3 ORAL) (20 sources) cholecalciferol, vitamin D3, (VITAMIN D3 ORAL) Take by mouth. Active cholecalciferol, vitamin D3, (VITAMIN D3 ORAL) Take by mouth. 0 Suspended cholecalciferol, vitamin D3, (VITAMIN D3 ORAL) Take by mouth. 0 Active Comment on above: Take by mouth. cycloSPORINE 0.5 mg/ml ophthalmic suspension (20 sources) Calcineurin Inhibitor Immunosuppressant Start: 12-13-19 End: 02-11-20 take 1 drop(s) into the eye(s) twice daily cycloSPORINE (RESTASIS) 0.05 % ophthalmic emulsion Use 1 drop in both eyes two times a day. 60 each 01/11/2025 Active Start: 04-02-2024 End: 12-09-2024 take 1 drop(s) into the eye(s) twice daily cycloSPORINE (RESTASIS) 0.05 % ophthalmic emulsion Use 1 Drop in both eyes two times a day. 180 Each 3 12/12/2024 Active Start: 07-14-2023 End: 03-26-2024 take 1 drop(s) into the eye(s) twice daily cycloSPORINE (RESTASIS) 0.05 % ophthalmic emulsion Use 1 Drop in both eyes two times a day. 180 Each 3 07/14/2023 03/26/2024 Discontinued Start: 11-19-2022 End: 07-09-2023 take 1 drop(s) into the eye(s) twice daily cycloSPORINE (RESTASIS) 0.05 % ophthalmic emulsion Use 1 Drop in both eyes twice daily. 180 Each 3 11/19/2022 07/09/2023 Discontinued Start: 11-19-2022 End: 02-17-2023 take 1 drop(s) into the eye(s) twice daily cycloSPORINE (RESTASIS) 0.05 % ophthalmic emulsion Use 1 Drop in both eyes twice daily. 180 Each 3 11/19/2022 Active Start: 08-20-2020 End: 01-23-2022 take 1 drop(s) into the eye(s) twice daily RESTASIS 0.05 % ophthalmic emulsion Use 1 Drop in both eyes twice daily. 0 08/20/2020 01/23/2022 Discontinued (Course of therapy completed) Comment on above: Use 1 Drop in both e yes twice daily. Use 1 Drop in both e yes two times a day. cycloSPORINE-chondroit in sulfate A (KLARITY-C) 0.1-0.25 % ophthalmic drops (20 sources) Start: 01-11-2025 cycloSPORINE-chondroi tin sulfate A (KLARITY-C) 0.1-0.25 % ophthalmic drops Use 1 drop in both eyes two times a day. 5.5 mL 3 01/11/2025 Active doxycycline hyclate 100 mg oral tablet (20 sources) Tetracycline-cla ss Drug Start: 12-05-2024 End: 01-12-2026 take 0.5 tablet by mouth twice daily doxycycline (VIBRA-TABS) 100 mg tablet Indications: Rosacea TAKE 1/2 (ONE-HALF) OF A TABLET BY MOUTH TWICE DAILY 30 tablet 11 01/12/2025 01/12/2026 Active Start: 01-18-2024 Doxycycline Hy clate 100 mg tablet Active 50 mg PO TWICE A DAY January 18, 2024 12:00am Start: 01-18-2024 take 50 mg by mouth twice jojo y Doxycycline Hyclate Active 50 MG PO TWICE A DAY January 18, 2024 12:00am Start: 12-21-2023 End: 12-01-2024 take 0.5 tablet by mouth twice daily doxycycline (VIBRA-TABS) 100 mg tablet TAKE 1/2 (ONE-HALF) OF A TABLET BY MOUTH TWICE DAILY 30 tablet 2 10/26/2024 12/01/2024 Discontinued Start: 09-16-2023 End: 12-15-2023 take 0.5 tablet by mouth twice daily doxycycline (VIBRA-TABS) 100 mg tablet TAKE 1/2 (ONE-HALF) OF A TABLET BY MOUTH TWICE DAILY 0 09/16/2023 12/15/2023 Discontinued Start: 04-29-2023 End: 05-29-2023 take 0.5 tablet by mouth twice daily doxycycline (VIBRA-TABS) 100 mg tablet Take 0.5 tablets by mouth twice daily. 30 tablet 4 04/29/2023 05/29/2023 Active Start: 10-17-2022 End: 04-29-2023 take 1 tablet by mouth twice daily doxycycline (VIBRA-TABS) 100 mg tablet Take 100 mg by mouth twice daily. 0 10/17/2022 04/29/2023 Discontinued Comment on above: Take 100 mg by mouth twice daily. Take 0.5 tablets by mouth twice daily. TAKE 1/2 (ONE-HALF) OF A TABLET BY MOUTH TWICE DAILY 1 ml enoxaparin sodium 100 mg/ml prefilled syringe (13 sources) Low Molecular Weight Heparin Start: 2022 End: 2022 inject 1 mL by subcutaneous injection every twelve hours enoxaparin (LOVENOX) 100 mg/mL syrg Inject 1 mL subcutaneously every 12 hours for 14 days. 7 mL 1 03/05/2023 03/19/2023 Active Comment on above: Inject 1 mL subcutan eously every 12 hours for 14 days. lansoprazole 30 mg delayed release oral capsule (1 source) Proton Pump Inhibitor Start: 2024 take 1 capsule by mouth once daily Lansoprazole (Prevacid) 30 mg capsule,delayed release(DR/EC) Active 30 mg PO DAILY February 08, 2025 12:00am levonorgestrel 0.513067 mg/hr intrauterine system (20 sources) Progestin, Progestin-containing Intrauterine Device Start: 2024 End: 2032 levonorgestrel (MIRENA) 21 mcg/24hr (up to 8 yrs) 52 mg IUD 1 each by INTRAUTERINE route as directed. 1 each 01/11/2025 01/09/2033 Active Start: 01-11-2025 End: 01-11-2025 1 each, INTRAUTERINE, ONCE ( UP TO 30 DAYS AMB), 1 dose, On Thu01/11/25 at 0830, Hazardous Potential Reproductive Risk Drug: Use appropriate PPE. metoclopramide 10 mg oral tablet (1 source) Dopamine-2 Receptor Antagonist Start: 02-08-2025 take 1 tablet by mouth four times daily as needed for headache Metoclopramide Hcl 10 mg tablet Active 10 mg PO 4 TIMES DAILY as needed for Headache February 08, 2025 12:00am 24 hr metoprolol succinate 25 mg extended release oral tablet (20 sources) beta-Adrenergic Micaela Start: 09-24-2023 End: 05-19-2025 take 1.5 tablets by mouth once daily metoprolol succinate ER (TOPROL XL) 25 mg 24 hr tablet Indications: Paroxysmal atrial fibrillation (HCC) , Acute on chronic diastolic (congestive) heart failure (HCC) , Dilated cardiomyopathy (HCC) , HOCM (hypertrophic obstructive cardiomyopathy) (HCC) , Axgkg-Ffftcgifb-Alo te (WPW) syndrome Take 1.5 tablets by mouth once daily. 45 tablet 5 05/19/2025 Active Start: 12-22-2022 End: 09-24-2023 take 1.5 tablets by mouth twice daily at mealtime metoprolol succinate ER (TOPROL XL) 25 mg 24 hr tablet Take 1.5 tablets by mouth twice daily with meals. 90 tablet 6 12/22/2022 09/24/2023 Discontinued Start: 11-04-2021 End: 12-19-2022 take 1.5 tablets by mouth twice daily at mealtime metoprolol succinate ER (TOPROL XL) 25 mg 24 hr tablet Take 1.5 tablets by mouth twice daily with meals. 60 tablet 5 08/05/2022 12/19/2022 Discontinued Start: 11-09-2020 End: 12-20-2020 take 1 tablet by mouth twice daily metoprolol succinate ER (TOPROL XL) 50 mg 24 hr tablet Take 1 tablet by mouth twice daily. 90 tablet 11/09/2020 12/20/2020 Discontinued Start: 06-30-2017 METOPROLOL SUC CINATE ER 100 MG [id number] as directed METOPROLOL SUCCINATE [id number] Alec Mcdaniels LPN Start: 02-21-2014 Metoprolol Tar trate 25 MG tablet Active 37.5 mg PO TWICE A DAY February 21, 2014 12:00am Start: 02-21-2014 take 37.5 mg by mout h twice daily Metoprolol Tartrate Active 37.5 MG PO TWICE A DAY February 21, 2014 12:00am Start: 02-21-2014 take 50 mg by mouth twice jojo y Metoprolol Tartrate Active 50 MG PO TWICE A DAY February 20, 2014 11:00pm Comment on above: Take 1.5 tablets by mouth twice daily with meals. Take 1.5 tablets by mouth once daily. miSOPROStol 0.2 mg oral tablet (9 sources) Prostaglandin E1 Analog Start: 03-03-20 End: 04-02-20 take 1 tablet by mouth at bedtime miSOPROStol (CYTOTEC) 200 mcg tablet Take 1 tablet by mouth with meals and at bedtime. 120 tablet 0 03/03/2024 04/02/2024 Active multivitamin tablet (20 sources) Start: 07-14-20 End: 07-14-20 take 1 tablet by mouth once daily multivitamin tablet Indications: S/P gastric bypass Take 1 tablet by mouth once daily. 90 tablet 3 07/14/2024 07/14/2025 Active Multivitamin With Iron (2 sources) Start: 05-03-20 take 1 tablet by mouth once daily Multivitamin With Iron Active 1 TABLET PO DAILY May 03, 2023 12:00am Multivitamin With Iron tablet (1 source) Start: 05-03-20 Multivitamin With Iron tablet Active 1 {tbl} PO DAILY May 03, 2023 12:00am pantoprazole 40 mg delayed release oral tablet (20 sources) Proton Pump Inhibitor Start: 04-21-20 End: 05-21-20 take 1 tablet by mouth twice daily pantoprazole DR (PROTONIX) 40 mg tablet Take 1 tablet by mouth two times a day. 60 tablet 04/21/2025 Active Start: 03-03-2024 End: 07-14-2024 take 1 tablet by mouth twice daily before mealtime, then take 4 tablets by mouth in the evening pantoprazole DR (PROTONIX) 40 mg tablet Take 1 tablet by mouth two times a day before meals at 6 am and 4 pm. 60 tablet 03/03/2024 07/14/2024 Discontinued (Course of therapy completed) Start: 05-03-2023 End: 01-18-2024 take 1 tablet by mouth once daily Pantoprazole (Protonix) 20 mg tablet,delayed release (DR/EC) Discontinued 20 mg PO DAILY May 03, 2023 12:00am January 18, 2024 4:47am Start: 05-03-2023 End: 01-18-2024 Pantoprazole 40 mg tablet,de layed release (DR/EC) Discontinued mg PO May 03, 2023 12:00am January 18, 2024 4:47am Start: 05-03-2023 End: 01-18-2024 Pantoprazole Discontinued MG PO May 03, 2023 12:00am January 18, 2024 4:47am Start: 02-20-2023 End: 07-16-2023 take 1 tablet by mouth once daily pantoprazole DR (PROTONIX) 40 mg tablet Take 1 tablet by mouth once daily. 30 tablet 2 02/20/2023 07/16/2023 Discontinued (Discontinued by another Health Care Provider) Comment on above: Take 1 tablet by tati once daily. perflutren lipid microspheres 1.3 mL in NaCl (PF) 0.9% 10 mL injection (DEFINITY) (20 sources) Start: 03-02-2024 End: 03-09-2024 perflutren lipid microspheres 1.3 mL in NaCl (PF) 0.9% 10 mL injection (DEFINITY) Start: 07-17-2022 End: 10-16-2023 perflutren lipid microsphere s 1.3 mL in NaCl (PF) 0.9% 10 mL injection (DEFINITY) phenylephrine hydrochloride 25 mg/ml ophthalmic solution (1 source) alpha-1 Adrenergic Agonist Start: 11-19-2022 End: 11-19-2022 PHENYLephrine 2.5 % 1 Drop (AK-DILATE, JULIA-SYNEPHRINE) predniSONE 20 mg oral tablet (3 sources) Start: 09-11-2023 End: 09-16-2023 take 2 tablets by mouth once daily predniSONE (DELTASONE) 20 mg tablet Take 2 tablets by mouth once daily for 5 days. 10 tablet 0 09/11/2023 09/16/2023 Active Start: 09-29-2022 End: 10-08-2022 predniSONE (DELTASONE) 10 mg tablet Indications: Acute midline low back pain with left-sided sciatica Take 4 tabs daily for 3 days, then 2 tabs daily for 3 days, then 1 tab daily for 3 days with food. 21 tablet 09/29/2022 10/08/2022 Comment on above: Take 4 tabs daily fo r 3 days, then 2 tabs daily for 3 days, then 1 tab daily for 3 days with food. Take 2 tablets by [facility] once daily for 5 days. proparacaine hydrochloride 5 mg/ml ophthalmic solution (1 source) Local Anesthetic Start: 11-19-2022 End: 11-19-2022 proparacaine 0.5 % 1 Drop (ALCAINE) 125 ml sodium chloride 9 mg/ml prefilled syringe (20 sources) Start: 03-02-2024 End: 03-09-2024 sodium chloride 0.9 % (flush) 10 mL (BD POSIFLUSH) Start: 07-17-2022 End: 10-16-2023 sodium chloride 0.9 % (flush ) 10 mL (BD POSIFLUSH) Start: 11-29-2020 End: 02-28-2022 sodium chloride 0.9 % (flush ) 10 mL (BD POSIFLUSH) sotalol hydrochloride 120 mg oral tablet (20 sources) Antiarrhythmic Start: 05-10-2025 take 1 tablet by mouth twice daily sotalol (BETAPACE) 120 mg tablet Take 1 tablet by mouth two times a day. 180 tablet 3 05/10/2025 Active Start: 01-27-2024 take 1 tablet by tati th twice daily sotalol (BETAPACE) 120 mg tablet Take 1 tablet by mouth two times a day. 180 tablet 3 01/27/2024 Active Start: 12-28-2023 End: 01-27-2024 take 1 tablet by mouth twice daily sotalol (BETAPACE) 80 mg tablet Take 1 tablet by mouth two times a day. 60 tablet 11 12/28/2023 01/27/2024 Discontinued Start: 05-14-2021 End: 12-28-2023 take 1 tablet by mouth twice daily sotalol (BETAPACE) 120 mg tablet Take 1 tablet by mouth two times a day. 180 tablet 08/03/2023 12/28/2023 Discontinued Start: 10-24-2020 End: 11-19-2020 take 1 tablet by mouth twice daily sotalol (BETAPACE) 120 mg tablet Take 1 tablet by mouth twice daily. 28 tablet 10/24/2020 11/19/2020 Discontinued Comment on above: Take 1 tablet by tati th twice daily. Take 1 tablet by tati th two times a day. sucralfate 1000 mg oral tablet (15 sources) Aluminum Complex Start: 04-21-2025 End: 10-18-2025 take 1 tablet by mouth four times daily sucralfate (CARAFATE) 1 gram tablet Take 1 tablet by mouth four times daily. 360 tablet 1 04/21/2025 10/18/2025 Active Start: 03-03-2024 End: 04-02-2024 take 1 tablet by mouth at bedtime sucralfate (CARAFATE) 1 gram tablet Take 1 tablet by mouth before meals and at bedtime. 120 tablet 0 03/03/2024 04/02/2024 Active tacrolimus 0.0003 mg/mg topical ointment (20 sources) Calcineurin Inhibitor Immunosuppressant Start: 12-09-2022 End: 01-14-2023 tacrolimus (PROTOPIC) 0.03 % ointment Apply to affected area twice daily. 30 g 2 01/14/2023 Active Comment on above: Apply to affected ar ea twice daily. tropicamide 10 mg/ml ophthalmic solution (1 source) Anticholinergic Start: 11-19-2022 End: 11-19-2022 tropicamide 1 % 1 Drop (MYDRIACYL) valACYclovir 500 mg oral tablet (2 sources) Herpesvirus Nucleoside Analog DNA Polymerase Inhibitor, Herpes Simplex Virus Nucleoside Analog DNA Polymerase Inhibitor, Herpes Zoster Virus Nucleoside Analog DNA Polymerase Inhibitor Start: 06-08-2024 End: 06-22-2024 take 1 tablet by mouth twice daily valACYclovir (VALTREX) 500 mg tablet Take 1 tablet by mouth two times a day for 14 days. 28 tablet 06/08/2024 06/22/2024 Active vitamin b12 1 mg oral tablet (20 sources) Vitamin B12 Start: 07-14-2024 End: 07-14-2025 take 1 tablet by mouth once daily cyanocobalamin (VITAMIN B-12) 1,000 mcg tab Indications: S/P gastric bypass Take 1 tablet by mouth once daily. 90 tablet 3 07/14/2024 07/14/2025 Active warfarin sodium 5 mg oral tablet (20 sources) Vitamin K Antagonist Start: 12-07-2023 End: 01-12-2026 take 1.5 tablets by mouth once daily warfarin (COUMADIN) 5 mg tablet Indications: Paroxysmal atrial fibrillation (HCC) , Ventricular tachyarrhythmia (HCC) Take 1.5 tablets by mouth once daily. Equally 7.5 mg Daily 45 tablet 11 01/12/2025 01/12/2026 Active Start: 06-01-2023 End: 12-07-2023 take 1 tablet by mouth once daily warfarin (COUMADIN) 5 mg tablet Take 1 tablet by mouth once daily. Or as directed by anticoagulation clinic. 90 tablet 1 06/01/2023 12/03/2023 Discontinued Start: 05-03-2023 Warfarin ( oven) 2.5 mg tablet Active 5 mg PO MOWETHSA May 03, 2023 12:00am Start: 05-03-2023 Warfarin 5 mg tablet Active 2.5 mg PO SUTUFR May 03, 2023 12:00am Start: 05-03-2023 Warfarin Activ e 2.5 MG PO SUTUFR May 03, 2023 12:00am Start: 03-10-2023 take 1 tablet by tati once daily warfarin (COUMADIN) 5 mg tablet Take 1 tablet by mouth once daily. Or as directed by anticoagulation clinic. 30 tablet 1 03/10/2023 Active Comment on above: Take 1 tablet by tati once daily. Or as directed by anticoagulation clinic. Take 1 tablet by tati once daily. Thurs, Sat 7 mg add 5 mg all other daysOr as directed by anticoagulation clinic. Take 1.5 tablets by mouth once daily. Equally 7.5 mg Daily Completed/Discontinued Medications Medication Drug Class(es) Dates Sig (Normalized) Sig (Original) acetaminophen 500 mg oral tablet (20 sources) Start: 02-20-2023 End: 05-13-2023 take 2 tablets by mouth every six hours acetaminophen (TYLENOL) 500 mg tablet Take 2 tablets by mouth every 6 hours. 50 tablet 0 02/20/2023 05/13/2023 Discontinued Comment on above: Take 2 tablets by mo [facility] every 6 hours. acetaminophen 325 mg / HYDROcodone bitartrate 5 mg oral tablet (11 sources) Opioid Agonist Start: 05-03-2023 End: 01-18-2024 Hydrocodone-Acetami nophen 5-325 mg tablet Discontinued 1 {tbl} PO EVERY 6 HOURS NEEDED as needed for Pain 10 May 03, 2023 January 18, 2024 4:46am Start: 05-03-2023 End: 01-18-2024 take 1 tablet by mouth every six hours as needed Hydrocodone-Acetaminophen Discontinued 1 TABLET PO EVERY 6 HOURS NEEDED 10 May 03, 2023 January 18, 2024 4:46am Start: 11-06-2020 End: 11-08-2020 Hydrocodone-Acetaminophen 1 TABLET tablet Discontinued 1 {tbl} PO EVERY 4 HOURS NEEDED as needed for Pain 10 November 06, 2020 November 07, 2020 1:00am November 08, 2020 1:03am Start: 11-06-2020 End: 11-08-2020 take 1 tablet by mouth every four hours as needed Hydrocodone-Acetaminophen Discontinued 1 TABLET PO EVERY 4 HOURS NEEDED 10 November 06, 2020 November 08, 2020 1:03am apixaban 5 mg oral tablet (20 sources) Factor Xa Inhibitor Start: 11-30-2019 End: 01-18-2024 take 1 tablet by mouth twice daily Apixaban 5 MG tablet Discontinued 5 mg PO TWICE A DAY 60 November 30, 2019 1:00am January 18, 2024 4:46am Comment on above: TAKE 1 TABLET BY MOUTH TWICE DAILY Take 1 tablet by tati twice daily. aspirin 81 mg chewable tablet (20 sources) Platelet Aggregation Inhibitor, Nonsteroidal Anti-inflammatory Drug Start: 04-27-2020 End: 05-13-2023 take 1 tablet by mouth once daily aspirin 81 mg chewable tablet Take 1 tablet by mouth once daily. 90 tablet 1 04/27/2020 05/13/2023 Discontinued Start: 12-16-2019 End: 01-18-2024 take 1 tablet by mouth once daily Aspirin 81 MG tablet,delayed release (DR/EC) Discontinued 81 mg PO DAILY December 16, 2019 12:00am January 18, 2024 4:46am Comment on above: Take 1 tablet by tati once daily. calcium chloride 0.0014 meq/ml / potassium chloride 0.004 meq/ml / sodium chloride 0.103 meq/ml / sodium lactate 0.028 meq/ml injectable solution (1 source) Start: End: take 30 mL intravenously every hour 30 mL/hr, INTRAVENOUS, CONTINUOUS, Starting on Thu03/08/25 at 1030, Until Thu03/08/25 at 1150, Preprocedure cephalexin 500 mg oral capsule (7 sources) Cephalosporin Antibacterial Start: End: take 1 capsule by mouth twice daily cephALEXin (KEFLEX) 500 mg capsule Take 1 capsule by mouth twice daily for 7 days. 14 capsule 0 03/20/2023 03/27/2023 Comment on above: Take 1 capsule by mo [facility] twice daily for 7 days. CPAP/BIPAP/OTHER (20 sources) Start: End: CPAP/BIPAP/OTHER New set: Settings 4 - 8 cm H2O, suitable mask per pt preference (nasal or pillow opt), chin strap, head gear, humidity, tubing, lifetime supplies. G47.33 QUINTON 1 Each 11/05/2022 07/16/2023 Discontinued (Course of therapy completed) Start: 11-05-2022 End: 03-22-2050 CPAP/BIPAP/OTHER New set: Se ttings 4 - 8 cm H2O, suitable mask per pt preference (nasal or pillow opt), chin strap, head gear, humidity, tubing, lifetime supplies. G47.33 QUINTON 1 Each 11/05/2022 03/22/2050 Suspended Start: 11-05-2022 End: 03-22-2050 CPAP/BIPAP/OTHER New set: Se ttings 4 - 8 cm H2O, suitable mask per pt preference (nasal or pillow opt), chin strap, head gear, humidity, tubing, lifetime supplies. G47.33 QUINTON 1 Each 11/05/2022 03/22/2050 Active Comment on above: New set: Settings 4 - 8 cm H2O, suitable mask per pt preference (nasal or pillow opt), chin strap, head gear, humidity, tubing, lifetime supplies. G47.33 QUINTON cyclobenzaprine hydrochloride 10 mg oral tablet (20 sources) Muscle Relaxant Start: 2021 End: 2022 take 1 tablet by mouth three times daily as needed for muscle spasms cyclobenzaprine (FLEXERIL) 10 mg tablet Indications: Acute midline low back pain with left-sided sciatica Take 1 tablet by mouth three times daily as needed for muscle spasm. 12 tablet 09/29/2022 01/29/2023 Discontinued (Course of therapy completed) Comment on above: Take 1 tablet by [facility] three times daily as needed for muscle spasm. dexamethasone 1 mg/ml / tobramycin 3 mg/ml ophthalmic suspension (2 sources) Aminoglycoside Antibacterial, Corticosteroid Start: 2021 End: 2022 tobramycin-dexAMETHa sone (TOBRADEX) 0.3-0.1 % ophthalmic suspension put 1 drop in both eyes three times a day 0 08/27/2022 11/25/2022 Discontinued (Course of therapy completed) Comment on above: put 1 drop in both e yes three times a day dulaglutide (TRULICITY) 3 mg/0.5 mL pen injector (1 source) Start: 2020 End: 2020 inject 3 mg by subcutaneous injection every week dulaglutide (TRULICITY) 3 mg/0.5 mL pen injector Inject 3 mg subcutaneously one time a week. 4 Each 2 10/08/2020 11/29/2020 Discontinued erythromycin 0.005 mg/mg ophthalmic ointment (17 sources) Macrolide, Macrolide Antimicrobial Start: 2023 End: 2023 erythromycin (ROMYCIN) 5 mg/gram (0.5 %) ophthalmic ointment Use 1 application in the right eye three times a day. into affected eye(s). 3.5 g 1 05/17/2024 07/14/2024 Discontinued (Course of therapy completed) metFORMIN hydrochloride 500 mg oral tablet (3 sources) Biguanide Start: 2020 End: 2021 take 2 tablets by mouth once daily at breakfast metFORMIN (GLUCOPHAGE) 500 mg tablet Take 2 tablets by mouth daily with breakfast. 30 tablet 5 01/08/2021 01/23/2022 Discontinued (Course of therapy completed) Comment on above: Take 2 tablets by mo uth daily with breakfast. ondansetron 4 mg disintegrating oral tablet (3 sources) Serotonin-3 Receptor Antagonist Start: 2022 End: 2023 take 1 tablet by mouth every eight hours as needed for nausea Ondansetron 4 mg tablet,disintegratin g Discontinued 4 mg PO EVERY 8 HOURS NEEDED as needed for Nausea May 03, 2023 12:00am January 18, 2024 4:47am oxyCODONE hydrochloride 5 mg oral tablet (20 sources) Opioid Agonist Start: 2022 take 1 tablet by mouth every six hours as needed for pain oxyCODONE IR (ROXICODONE) 5 mg immediate release tablet Indications: Acute post-operative pain Take 1 tablet by mouth every 6 hours as needed for pain. 6 tablet 0 05/20/2023 Active Start: 02-20-2023 End: 05-13-2023 take 1 tablet by mouth every eight hours as needed oxyCODONE IR (ROXICODONE) 5 mg immediate release tablet Indications: Post-operative pain Take 1 tablet by mouth every 8 hours as needed. 10 tablet 0 02/20/2023 05/13/2023 Discontinued Comment on above: Take 1 tablet by tati th every 8 hours as needed. Take 1 tablet by tati th every 6 hours as needed for pain. polymyxin b [id number] unt/ml / trimethoprim 1 mg/ml ophthalmic solution (20 sources) Dihydrofolate Reductase Inhibitor Antibacterial, Polymyxin-class Antibacterial Start: End: take 1 drop(s) into the eye(s) three times daily trimethoprim-polymyx in (POLYTRIM) 10,000 unit- 1 mg/mL ophthalmic solution Use 1 Drop in the right eye three times a day. 10 mL 1 05/09/2024 07/14/2024 Discontinued (Discontinued by Patient) Start: 07-21-2022 End: 07-28-2022 take 1 drop(s) into the eye(s) every four hours trimethoprim-polymyxin (POLYTRIM) 10,000 unit- 1 mg/mL ophthalmic solution Use 1 Drop in both eyes every 4 hours for 7 days. 10 mL 0 07/21/2022 07/28/2022 Active Comment on above: Use 1 Drop in both e yes every 4 hours for 7 days. Semaglutide (Weight Loss) (7 sources) Start: 06-26-2022 End: 01-18-2024 Semaglutide (Weight Loss) (Wegovy) 2.4 mg/0.75 mL pen injector Discontinued 2.4 mg SC MO June 26, 2022 12:00am January 18, 2024 4:47am Start: 06-26-2022 End: 01-18-2024 Semaglutide (Weight Loss) (W egovy) 2.4 mg/0.75 mL pen injector Discontinued 2.4 MG SC MO June 26, 2022 12:00am January 18, 2024 4:47am Start: 06-26-2022 Semaglutide (W eight Loss) (Wegovy) 2.4 mg/0.75 mL pen injector Active 2.4 MG SC MO June 25, 2022 11:00pm Start: 06-26-2022 Semaglutide (W eight Loss) (Wegovy) 2.4 mg/0.75 mL pen injector Active 2.4 MG SC June 26, 2022 12:00am semaglutide, weight loss, (WEGOVY) 2.4 mg/0.75 mL pen injector (20 sources) Start: 01-23-2022 End: 05-13-2023 inject 0.75 mL by subcutaneous injection every week semaglutide, weight loss, (WEGOVY) 2.4 mg/0.75 mL pen injector Inject 0.75 mL subcutaneously one time a week. 9 mL 3 01/23/2022 05/13/2023 Discontinued Start: 01-23-2022 inject 0.75 mL by chow bcutaneous injection every week semaglutide, weight loss, (WEGOVY) 2.4 mg/0.75 mL pen injector Inject 0.75 mL subcutaneously one time a week. 9 mL 3 01/23/2022 Suspended Start: 01-23-2022 inject 0.75 mL by chow bcutaneous injection every week semaglutide, weight loss, (WEGOVY) 2.4 mg/0.75 mL pen injector Inject 0.75 mL subcutaneously one time a week. 9 mL 3 01/23/2022 Active Start: 12-11-2021 End: 01-23-2022 inject 0.75 mL by subcutaneous injection every week semaglutide, weight loss, (WEGOVY) 2.4 mg/0.75 mL pen injector Inject 0.75 mL subcutaneously one time a week. 9 mL 2 12/11/2021 01/23/2022 Discontinued Start: 12-11-2021 inject 0.75 mL by chow bcutaneous injection every week semaglutide, weight loss, (WEGOVY) 2.4 mg/0.75 mL pen injector Inject 0.75 mL subcutaneously one time a week. 9 mL 2 12/11/2021 Active Comment on above: Inject 0.75 mL subcu taneously one time a week. Problems Active Problems Problem Classification Problem Date Documented Da te Episodic/Chronic Abdominal pain (2 sources) Right upper quadrant pain; Translations: [Right upper quadrant pain] 05-09-2023 Episodic Biliary tract disease (7 sources) Biliary colic; Translations: [Calculus of bile duct without cholangitis or cholecystitis without obstruction] 05-03-2023 Episodic Blindness and vision defects (20 sources) Bilateral irregular astigmatism of eyes; Translations: [Irregular astigmatism, bilateral] Onset: 05-03-2024 Resolved: 05-03-2024 Episodic Cardiac dysrhythmias (20 sources) Ventricular tachycardia; Translations: [Ventricular tachycardia] Onset: 02-02-2014 Chronic Complication of device; implant or graft (8 sources) Inappropriate shocks from implanted defibrillator; Translations: [Other mechanical complication of other cardiac electronic device, initial encounter] 12-17-2019 Episodic Conduction disorders (20 sources) Jjvba-Jupsaxolf-Xrbai pattern; Translations: [Pre-excitation syndrome] Onset: 09-22-2018 12-07-2019 Chronic Congestive heart failure; nonhypertensive (20 sources) Acute on chronic diastolic heart failure; Translations: [Acute on chronic diastolic (congestive) heart failure] Onset: 11-23-2019 12-07-2019 Chronic Disorders of lipid metabolism (1 source) Mixed hyperlipidemia; Translations: [Mixed hyperlipidemia] Chronic Fluid and electrolyte disorders (10 sources) Dehydration; Translations: [Dehydration] 09-20-2022 Episodic Gastroduodenal ulcer (except hemorrhage) (20 sources) Ulcer of anastomosis; Translations: [Gastrojejunal ulcer, unspecified as acute or chronic, without hemorrhage or perforation] Onset: 02-29-2024 02-29-2024 Chronic Genitourinary symptoms and ill-defined conditions (4 sources) Leukocytes in urine; Translations: [Other abnormal findings in urine] Episodic Immunizations and screening for infectious disease (4 sources) Suspected disease caused by 2019-nCoV; Translations: [Suspected COVID-19 virus infection] Onset: 07-13-2025 Episodic Inflammation; infection of eye (except that caused by tuberculosis or sexually transmitteddisease) (1 source) Conjunctivitis; Translations: [Other mucopurulent conjunctivitis, bilateral] Episodic Nausea and vomiting (2 sources) Vomiting; Translations: [Vomiting, unspecified] Onset: 02-14-2025 02-08-2025 Episodic Nutritional deficiencies (20 sources) Vitamin D deficiency; Translations: [Vitamin D deficiency, unspecified] Onset: 10-02-2022 10-02-2022 Chronic Open wounds of head; neck; and trunk (1 source) Facial laceration ; Translations: [Laceration without foreign body of other part of head, initial encounter] 09-03-2024 Episodic Other aftercare (20 sources) Long-term current use of anticoagulant; Translations: [halfway (current) use of 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] Onset: 03-12-2023 Episodic Other circulatory disease (4 sources) Low blood pressure; Translations: [Hypotension, unspecified] 03-08-2023 Episodic Other eye disorders (20 sources) Other specified disorders of cornea, bilateral; Translations: [Other corneal disorders] Onset: 05-03-2024 Resolved: 05-03-2024 Episodic Other eye disorders (11 sources) Tear film insufficiency; Translations: [Dry eye syndrome of bilateral lacrimal glands] Episodic Other eye disorders (1 source) Dry eye syndrome of bilateral lacrimal glands; Translations: [Dry eye syndrome of both eyes] Onset: 07-12-2025 Episodic Other gastrointestinal disorders (2 sources) Abnormal intestinal absorption; Translations: [Intestinal malabsorption, unspecified] Chronic Other gastrointestinal disorders (1 source) History of bariatric surgical procedure; Translations: [Bariatric surgery status] Episodic Other inflammatory condition of skin (10 sources) Rosacea keratitis; Translations: [Other rosacea] Chronic Other inflammatory condition of skin (1 source) Rosacea; Translations: [Rosacea, unspecified] 01-12-2025 Chronic Other inflammatory condition of skin (1 source) Other rosacea; Translations: [Rosacea keratitis] Onset: 07-12-2025 Chronic Other injuries and conditions due to external causes (1 source) Closed injury of head; Translations: [Unspecified injury of head, initial encounter] 09-03-2024 Episodic Other liver diseases (1 source) Nodule of liver; Translations: [Other specified diseases of liver] 12-11-2022 Chronic Other nutritional; endocrine; and metabolic disorders (20 sources) Body mass index 40+ - severely obese; Translations: [Morbid (severe) obesity due to excess calories] 12-07-2019 Chronic Other nutritional; endocrine; and metabolic disorders (20 sources) Severe obesity; Translations: [Morbid (severe) obesity due to excess calories] Onset: 08-27-2020 08-29-2020 Chronic Other nutritional; endocrine; and metabolic disorders (8 sources) Body mass index 30+ - obesity; Translations: [Body mass index (BMI) 39.0-39.9, adult] 10-28-2021 Chronic Other nutritional; endocrine; and metabolic disorders (20 sources) Metabolic syndrome X; Translations: [Metabolic syndrome] Onset: 10-02-2022 10-02-2022 Chronic Other nutritional; endocrine; and metabolic disorders (1 source) Obese class III; Translations: [Morbid (severe) obesity due to excess calories] Chronic Other nutritional; endocrine; and metabolic disorders (20 sources) Obese class I; Translations: [Obesity, unspecified] Onset: 05-07-2023 05-07-2023 Chronic Other nutritional; endocrine; and metabolic disorders (2 sources) Extreme obesity with alveolar hypoventilation; Translations: [Morbid (severe) obesity with alveolar hypoventilation] 09-24-2022 Chronic Other nutritional; endocrine; and metabolic disorders (1 source) Overweight; Translations: [Overweight] 07-16-2023 Episodic Other nutritional; endocrine; and metabolic disorders (1 source) Body mass index 25-29 - overweight; Translations: [Overweight] 09-02-2023 Episodic Other screening for suspected conditions (not mental disorders or infectious disease) (1 source) Ultrasound scan abnormal; Translations: [Abnormal findings on diagnostic imaging of other specified body structures] Chronic Other screening for suspected conditions (not mental disorders or infectious disease) (11 sources) Raised TSH level; Translations: [Other specified abnormal findings of blood chemistry] Onset: 08-25-2024 Episodic Other skin disorders (1 source) Loss of hair; Translations: [Nonscarring hair loss, unspecified] 07-14-2024 Episodic Vickie-; endo-; and myocarditis; cardiomyopathy (except that caused by tuberculosis or sexually transmitted disease) (20 sources) Hypertrophic obstructive cardiomyopathy; Translations: [Obstructive hypertrophic cardiomyopathy] Onset: 11-01-2014 08-27-2020 Chronic Residual codes; unclassified (20 sources) Obstructive sleep apnea syndrome; Translations: [Obstructive sleep apnea (adult) (pediatric)] Onset: 11-05-2022 Chronic Residual codes; unclassified (1 source) Obstructive sleep apnea (adult) (pediatric); Translations: [QUINTON (obstructive sleep apnea)] Onset: 03-27-2023 Chronic Residual codes; unclassified (2 sources) Postoperative state; Translations: [Other specified postprocedural states] Episodic Residual codes; unclassified (1 source) Reduced libido; Translations: [Decreased libido] 08-25-2024 Episodic Residual codes; unclassified (1 source) History of clinical finding in subject; Translations: [Personal history of other specified conditions] 03-08-2025 Episodic Residual codes; unclassified (1 source) Personal history of other specified conditions; Translations: [History of ulceration] Onset: 03-08-2025 Episodic Screening and history of mental health and substance abuse codes (4 sources) Patient encounter status; Translations: [Encounter for screening for depression] 07-14-2024 Episodic Spondylosis; intervertebral disc disorders; other back problems (4 sources) Low back pain; Translations: [Acute back pain with sciatica] Onset: 06-30-2017 06-30-2017 Episodic Sprains and strains (2 sources) Strain of muscle, fascia and tendon of lower back, initial encounter; Translations: [Sprain of left wrist] Onset: 06-30-2017 06-30-2017 Episodic Unclassified (20 sources) Transition of care; Translations: [Transition of care performed with sharing of clinical summary] Onset: 11-22-2019 11-25-2019 Unclassified (1 source) NO SHOW 04-15-2024 Unclassified (1 source) Ventricular tachyarrhythmia (HCC); Translations: [Ventricular tachyarrhythmia (HCC)] Onset: 12-19-2014 Unclassified (1 source) Other persistent atrial fibrillation; Translations: [Atrial fibrillation, persistent (HCC)] Onset: 03-22-2025 Urinary tract infections (8 sources) Urinary tract infectious disease; Translations: [Urinary tract infection, site not specified] 08-03-2020 Episodic Viral infection (9 sources) Disease caused by 2019-nCoV; Translations: [COVID-19] Episodic Past or Other Problems Problem Classification Problem Date Documented Da te Episodic/Chronic Administrative/social admission (20 sources) Discharge status; Translations: [Encounter for administrative examinations, unspecified] Onset: 0 12-07-2019 Episodic Cardiac dysrhythmias (20 sources) Palpitations; Translations: [Palpitations] Onset: 4 01-18-2014 Episodic Contraceptive and procreative management (3 sources) Contraception status; Translations: [Encounter for removal and reinsertion of intrauterine contraceptive device] Onset: 5 01-11-2025 Episodic Diabetes mellitus without complication (20 sources) Impaired glucose tolerance; Translations: [Impaired glucose tolerance (oral)] Onset: 1 Resolved: 0 01-21-2011 Episodic Hemorrhage during ; abruptio placenta; placenta previa (20 sources) Placenta previa without hemorrhage; Translations: [Complete placenta previa NOS or without hemorrhage, unspecified trimester] Onset: 8 Resolved: 9 10-16-2008 Episodic Menstrual disorders (20 sources) Irregular periods; Translations: [Irregular menstruation, unspecified] Onset: 2 Resolved: 2 08-04-2012 Chronic Other aftercare (20 sources) Surgical follow-up; Translations: [Encounter for surgical aftercare following surgery on the circulatory system] Onset: 0 12-07-2019 Episodic Other aftercare (1 source) halfway (current) use of 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; Translations: [halfway (current) use of 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] Onset: 3 Episodic Other circulatory disease (20 sources) H/O: atrial fibrillation; Translations: [Personal history of other diseases of the circulatory system] Onset: 3 10-26-2022 Episodic Other circulatory disease (1 source) Personal history of other diseases of the circulatory system; Translations: [History of atrial fibrillation] Onset: 3 Episodic Other gastrointestinal disorders (20 sources) History of bypass of stomach; Translations: [Bariatric surgery status] Onset: 3 Episodic Other gastrointestinal disorders (2 sources) Bariatric surgery status; Translations: [S/P gastric bypass] Onset: 3 Episodic Other injuries and conditions due to external causes (1 source) Unspecified injury of head, initial encounter; Translations: [Unspecified injury of head, initial encounter] Onset: 4 Episodic Other nervous system disorders (20 sources) Postoperative pain ; Translations: [Other acute postprocedural pain] Onset: 0 Resolved: 0 11-22-2019 Episodic Other nutritional; endocrine; and metabolic disorders (20 sources) Obese class II; Translations: [Obesity, unspecified] Onset: 0 Resolved: 3 01-29-2023 Chronic Other and delivery including normal (20 sources) Normal in primigravida; Translations: [Encounter for supervision of normal first , unspecified trimester] Onset: 8 Resolved: 9 03-27-2009 Episodic Pleurisy; pneumothorax; pulmonary collapse (20 sources) Atelectasis; Translations: [Atelectasis] Onset: 0 Resolved: 0 11-22-2019 Episodic Residual codes; unclassified (20 sources) Under care of multiple providers; Translations: [Other specified health status] Onset: 2 Episodic Residual codes; unclassified (20 sources) H/O cardiac surgery; Translations: [Other specified postprocedural states] Onset: 4 11-19-2022 Episodic Residual codes; unclassified (20 sources) FH: Cardiomyopathy; Translations: [Family history of ischemic heart disease and other diseases of the circulatory system] Onset: 4 Resolved: 8 09-22-2018 Episodic Residual codes; unclassified (20 sources) Transition of care; Translations: [Other specified health status] Onset: 0 11-25-2019 Episodic Sexually transmitted infections (not HIV or hepatitis) (20 sources) Human papilloma virus deoxyribonucleic acid test positive, high risk on vaginal specimen; Translations: [Vaginal high risk human papillomavirus (HPV) DNA test positive] Onset: 2 08-04-2012 Episodic Syncope (20 sources) Syncope; Translations: [Syncope and collapse] Onset: 4 11-19-2022 Episodic Thyroid disorders (20 sources) Thyroid nodule; Translations: [Nontoxic single thyroid nodule] Onset: 8 Resolved: 3 04-12-2018 Chronic Unclassified (1 source) History of bypass of stomach 03-08-2025 Results Test Name Value Interpretation Reference Range Facility [facility]25 [facility] CHAVO TOM ([id number]) 1980 F Date Time Provider Department 10/31/25 PHARMACIST PHARMN During your visit today, we recorded the following information about you: Jackson (Levelman)Maine 08/04/2025 7:23 AM Signed PAC received faxed outside lab/home meter result for patient via mdINR from Date: 08/03 . Results have been scanned into patient's chart and are located under 'Scanned Documents'. Please note, may take up to 10 minutes for document to transfer from [facility]. PT INR (no units) Date Value 08/03/2025 1.1 07/24/2025 4.3 07/17/2025 3.7 [place] [facility] Vijaya Rojas RPh 08/04/2025 8:01 AM Signed [facility] Anticoagulation Episode Summary Anticoagulation Care Providers Provider Role Specialty Phone number Oneyda Recinos MD Referring Cardiology [phone] Chavo Tom is a 45 year old year old female patient being evaluated today for a Telemanagement visit. Patient is currently on the following anticoagulant(s) Warfarin. Labs Lab Results Component Value Date INR 1.1 08/03/2025 INR 4.3 07/24/2025 INR 3.7 07/17/2025 Lab Results Component Value Date HB 11.6 07/13/2025 HB 12.9 01/12/2025 HB 13.3 07/14/2024 Lab Results Component Value Date HCT 36.6 07/13/2025 HCT 39.6 01/12/2025 HCT 40.6 07/14/2024 Lab Results Component Value Date PLT 346 07/13/2025 PLT 336 01/12/2025 PLT 383 07/14/2024 Lab Results Component Value Date CREAT 0.63 07/13/2025 CREAT 0.61 03/22/2025 CREAT 0.66 01/12/2025 No components found for: "TBILI3" Lab Results Component Value Date ALT 16 07/13/2025 ALT 17 01/12/2025 ALT 19 07/14/2024 Lab Results Component Value Date AST 26 07/13/2025 AST 26 01/12/2025 AST 26 07/14/2024 Estimated Creatinine Clearance: 121.1 mL/min (based on SCr of 0.63 mg/dL). 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 Anticoagulation Episode Summary Current INR goal: 2.0-3.0 Assessment: INR result of 1.1 is SUBtherapeutic due to: unknown cause - did not speak to patient Plan: Current Warfarin Dosing As of 08/04/2025 Full warfarin instructions: 08/04: 12.5 mg; Otherwise 7.5 mg every day Left voice message Advised patient to call our clinic to discuss the low INR result from yesterday at [phone]. If she does not reach our clinic today she should take warfarin 12.5mgx1 as noted above Added to the critical list for follow up tomorrow if she does not call back today Vijaya Rojas [facility] Clinical Pharmacist, Pharmacy Anticoagulation Clinic Pharmacy Anticoagulation Clinic Pager: [phone]. Natasha Barboza [facility] 08/05/2025 11:07 AM Signed [facility] Anticoagulation Episode Summary Anticoagulation Care Providers Provider Role Specialty Phone number Oneyda Recinos MD Referring Cardiology [phone] Chavo Tom is a 45 year old year old female patient being evaluated today for a Telemanagement visit. Patient is currently on the following anticoagulant(s) Warfarin. Labs Lab Results Component Value Date INR 1.1 08/03/2025 INR 4.3 07/24/2025 INR 3.7 07/17/2025 Lab Results Component Value Date HB 11.6 07/13/2025 HB 12.9 01/12/2025 HB 13.3 07/14/2024 Lab Results Component Value Date HCT 36.6 07/13/2025 HCT 39.6 01/12/2025 HCT 40.6 07/14/2024 Lab Results Component Value Date PLT 346 07/13/2025 PLT 336 01/12/2025 PLT 383 07/14/2024 Lab Results Component Value Date CREAT 0.63 07/13/2025 CREAT 0.61 03/22/2025 CREAT 0.66 01/12/2025 No components found for: "TBILI3" Lab Results Component Value Date ALT 16 07/13/2025 ALT 17 01/12/2025 ALT 19 07/14/2024 Lab Results Component Value Date AST 26 07/13/2025 AST 26 01/12/2025 AST 26 07/14/2024 Estimated Creatinine Clearance: 121.1 mL/min (based on SCr of 0.63 mg/dL). ALLERGIES Allergen Reactions Metformin Diarrhea Nsaids (Non-Steroid* Contraindication-Med ical Surgical S/p gastric bypass, relative contraindication to NSAIDs Indication for Warfarin: Atrial fibrillation, unspecified type (hcc) Paroxysmal atrial fibrillation (hcc) halfway (current) use of 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 Anticoagulation Episode Summary Current INR goal: 2.0-3.0 Assessment: INR result of 1.1 is SUBtherapeutic due to: unknown cause - did not speak to patient Plan: Current Warfarin Dosing As of 08/04/2025 Full warfarin instructions: 08/04: 12.5 mg; 08/05: 10 mg; Otherwise 7.5 mg every day Left voice message Advise (more content not included)... Normal [facility] Hemoccult Stl Ql IAon 2024 Lower GI hemoglobin IA Ql (Stl) Negative Normal Negative [facility] Comment on above: Order Comment: Speci men Type: STOOL SPECIMENOrdering Facility: [facility] Address: [address] [place] [address] Performed By: #### [id number] ####[facility] LAB[facility] [id number] [address] [facility] Gu[place]line 07-24-2025 CNPN Telephone (PHARMN) CHAVO TOM ([id number]) 1980 F Date Time Provider Department 07/24/25 PHARMACIST PHARMN During your visit today, we recorded the following information about you: Sera (Levelman)Bernardo 07/24/2025 4:49 PM Signed Received fax from [facility] with INR results for patient. Patient tested on 07/24/2025 and the INR result was 4.3. Fax can be found under scanned documents as miscellaneous lab result. It may take a few minutes to transfer from [employer]. PT INR (no units) Date Value 07/24/2025 4.3 07/17/2025 3.7 06/08/2025 1.2 INR (no units) Date Value 07/13/2025 1.2 Patient did not read previous result MC message until today, unclear what dosing patient would be taking. Bernardo Zamora, Chief Data Officer (spray gun striper) Pharmacy Anticoagulation Clinic Rosa Moore RPh 07/24/2025 4:57 PM Signed [facility] Anticoagulation Episode Summary Anticoagulation Care Providers Provider Role Specialty Phone number Oneyda Recinos MD Referring Cardiology [phone] Chavo Tom is a 45 year old year old female patient being evaluated today for a Telemanagement visit. Patient is currently on the following anticoagulant(s) Warfarin. Labs Lab Results Component Value Date INR 4.3 07/24/2025 INR 3.7 07/17/2025 INR 1.2 07/13/2025 Lab Results Component Value Date HB 11.6 07/13/2025 HB 12.9 01/12/2025 HB 13.3 07/14/2024 Lab Results Component Value Date HCT 36.6 07/13/2025 HCT 39.6 01/12/2025 HCT 40.6 07/14/2024 Lab Results Component Value Date PLT 346 07/13/2025 PLT 336 01/12/2025 PLT 383 07/14/2024 Lab Results Component Value Date CREAT 0.63 07/13/2025 CREAT 0.61 03/22/2025 CREAT 0.66 01/12/2025 No components found for: "TBILI3" Lab Results Component Value Date ALT 16 07/13/2025 ALT 17 01/12/2025 ALT 19 07/14/2024 Lab Results Component Value Date AST 26 07/13/2025 AST 26 01/12/2025 AST 26 07/14/2024 Estimated Creatinine Clearance: 121.1 mL/min (based on SCr of 0.63 mg/dL). 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 Anticoagulation Episode Summary Current INR goal: 2.0-3.0 Assessment: INR result of 4.3 is SUPRAtherapeutic due to: No obvious cause (patient denies medication change, grapefruit/cranberry /pomegranate/evy ingestion, OTC medication use, change in herbal/nutritional supplement, accidental overdosage, change in warfarin tablet shape or color, change in vit K consumption, recent illness (NVD, fever), any changes to general health, changes in tobacco use, or EtOH consumption) Pt did not take reduced dose last week as she already took Thursday dose and did not know to take reduced dose INR up from 3.7 to 4.3 this week Pt already took dose today Plan: Current Warfarin Dosing As of 07/24/2025 Full warfarin instructions: 07/25: Hold; 07/26: 5 mg; Otherwise 7.5 mg every day Called and spoke to patient/caregiver Advised patient to hold x1, then reduced x1, will recheck later this week given INR rising and very labile INR (TTR 11.4%) Next home INR check scheduled on 07/31/2025 Patient verbalizes understanding of the plan. Patient denies need for refills. Patient advised to call the PAC with any medication changes, bleeding/bruising concerns, recent changes in vitamin k consumption, if any procedures are coming up, if they have been ill or in the hospital, and if they have missed any doses of warfarin. Rosa Moore RPh Clinical Pharmacist, [facility] Pager: [phone]. Lora Raza RPh 07/27/2025 3:54 PM Signed Chavo oTm was called and reminded to test INR today or as soon as possible. Trino Subramanian Bethany, RPh 07/31/2025 1:48 PM Signed Chavo Tom was called and sent MyChart and reminded to test INR today or as soon as possible. Called and LVM please check INR after work and [facility] will call today or tomorrow AM once we receive result. Also sent MyChart. Labile INR with TTR 11.4% and hx lost to follow up so will follow up again tomorrow. Rosa Moore, [facility] RubinJennifer mahoneyTrino 08/02/2025 3:14 PM Signed LM again for pt to test. Will check back by the end of the week. Perhaps she will test after work. Jennifer Carlita [facility] Allergies As of Date: 07/24/2025 Noted Allergy Reaction METFORMIN 01/23/2022 6 - Diarrhea NSAIDS (NON-STEROIDAL ANTI-INFLAM*01/13/20 24 15 - Contraindication-Med ical Chow* Comments: S/p gastric bypass, relative cont (more content not included)... Normal [facility] CNPNon 07-18-2025 CNPN Telephone (PHARMN) CHAVO TOM ([id number]) 1980 F Date Time Provider Department 07/18/25 PHARMACIST PHARMN During your visit today, we recorded the following information about you: Sera (Levelman)Bernardo 07/18/2025 7:29 AM Signed Received fax from [facility] with INR results for patient. Patient tested on 07/17/2025 and the INR result was 3.7. Fax can be found under scanned documents as miscellaneous lab result. It may take a few minutes to transfer from [facility]. PT INR (no units) Date Value 07/17/2025 3.7 06/08/2025 1.2 05/31/2025 2.2 INR (no units) Date Value 07/13/2025 1.2 Bernardo Zamora, Chief Data Officer (spray gun striper) [facility] Bren Hernandez [facility] 07/18/2025 8:06 AM Signed [facility] Anticoagulation Episode Summary Anticoagulation Care Providers Provider Role Specialty Phone number Oneyda Recinos MD Referring Cardiology [phone] Chavo Tom is a 45 year old year old female patient being evaluated today for a Telemanagement visit. Patient is currently on the following anticoagulant(s) Warfarin. Labs Lab Results Component Value Date INR 3.7 07/17/2025 INR 1.2 07/13/2025 INR 1.2 06/08/2025 Lab Results Component Value Date HB 11.6 07/13/2025 HB 12.9 01/12/2025 HB 13.3 07/14/2024 Lab Results Component Value Date HCT 36.6 07/13/2025 HCT 39.6 01/12/2025 HCT 40.6 07/14/2024 Lab Results Component Value Date PLT 346 07/13/2025 PLT 336 01/12/2025 PLT 383 07/14/2024 Lab Results Component Value Date CREAT 0.63 07/13/2025 CREAT 0.61 03/22/2025 CREAT 0.66 01/12/2025 No components found for: "TBILI3" Lab Results Component Value Date ALT 16 07/13/2025 ALT 17 01/12/2025 ALT 19 07/14/2024 Lab Results Component Value Date AST 26 07/13/2025 AST 26 01/12/2025 AST 26 07/14/2024 Estimated Creatinine Clearance: 121.1 mL/min (based on SCr of 0.63 mg/dL). ALLERGIES Allergen Reactions Metformin Diarrhea Nsaids (Non-Steroid* Contraindication-Med ical Surgical S/p gastric bypass, relative contraindication to NSAIDs Indication for Warfarin: Anticoagulation Episode Summary Current INR goal: 2.0-3.0 Assessment: INR result of 3.7 is SUPRAtherapeutic due to: unknown cause - did not speak to patient Plan: Current Warfarin Dosing As of 07/18/2025 Full warfarin instructions: 07/18: 2.5 mg; Otherwise 7.5 mg every day Left voice message Advised patient to decrease dose for 1 day only then resume weekly regimen as noted above Next home INR check scheduled on 07/24/2025 Pt advised to call PAC if there are any questions, concerns, or changes to report. Patient advised to call the PAC with any medication changes, bleeding/bruising concerns, recent changes in vitamin k consumption, if any procedures are coming up, if they have been ill or in the hospital, and if they have missed any doses of warfarin. Bren Hernandez [facility] Clinical Pharmacist, Pharmacy Anticoagulation Clinic [facility] Pager: [phone]. Rosa Moore RPh 07/24/2025 3:40 PM Signed Crystal Jens Tom was called and reminded to test INR today or as soon as possible. She is going to check when she gets home from work. Works 7am-3:30pm so [facility] will call once INR results or tomorrow after 3:30pm (or MyChart if in range) Rosa Moore logan Allergies As of Date: 07/18/2025 Noted Allergy Reaction METFORMIN 01/23/2022 6 - Diarrhea NSAIDS (NON-STEROIDAL ANTI-INFLAM*01/13/20 24 15 - Contraindication-Med ical Chow* Comments: S/p gastric bypass, relative contraindication to NSAIDs Date Reviewed: 07/13/2025 Reviewed by: Janelle Oconnell MA - Fully Assessed Reason for Visit: Anticoagulation Telephone Fu [148] Order(s):INR [[id number]] Order #: [id number] Prescriptions as of 07/24/2025 - pantoprazole DR (PROTONIX) 40 mg tablet Take 1 tablet by mouth two times a day. - metoprolol succinate ER (TOPROL XL) 25 mg 24 hr tablet Take 1.5 tablets by mouth once daily. - sotalol (BETAPACE) 120 mg tablet Take 1 tablet by mouth two times a day. - sucralfate (CARAFATE) 1 gram tablet Take 1 tablet by mouth four times daily. - doxycycline (VIBRA-TABS) 100 mg tablet TAKE 1/2 (ONE-HALF) OF A TABLET BY MOUTH TWICE DAILY - warfarin (COUMADIN) 5 mg tablet Take 1.5 tablets by mouth once daily. Equally 7.5 mg Daily - levonorgestrel (MIRENA) 21 mcg/24hr (up to 8 yrs) 52 mg IUD 1 each by INTRAUTERINE route as directed. - cycloSPORINE (RESTASIS) 0.05 % ophthalmic emulsion Use 1 drop in both eyes two times a day. - cycloSPORINE-chondro itin sulfate A (KLARITY-C) 0.1-0.25 % ophthalmic drops Use 1 drop in both eyes two times a day. - cyanocobalamin (VITAMIN B-12) 1,000 mcg tab Take 1 tablet by mouth once daily. - multivitamin tablet (more content not included)... Normal [facility] 25(OH)D3 [place] 2024 25-hydroxyvitamin D3 [Mass/Vol] 35.4 ng/mL Normal 31.0-80.0 [facility] Comment on above: Order Comment: Speci men Type: BLOOD SPECIMENOrdering Facility: [facility] Address: [address] [place] [address] Result Comment: Clas sification of 25 [place] Vitamin D status: Deficiency/Insufficiency: < or = 30 ng/ml. Sufficiency/Optimal Levels: 31-80 ng/mL Toxicity: > 100 ng/mL. Test performed by chemiluminescent immunoassay. Performed By: #### 1 989-3 ####[facility] [id number] [address] [address] [place] CBC panel Auto (Bld)on 07-13 Erythrocyte distribution width (RBC) [Ratio] 14.5 % Normal 11.5-15.0 [facility] Comment on above: Order Comment: Speci men Type: BLOOD SPECIMENOrdering Facility: [facility] [place] Address: [address] [place] [address] Performed By: #### 5 8410-2 ####[facility] [id number] [address] [address] [place] Hematocrit (Bld) [Volume fraction] 36.6 % Normal 36.0-46.0 [facility] Comment on above: Order Comment: Speci men Type: BLOOD SPECIMENOrdering Facility: [facility] [place] Address: [address] [place] [address] Performed By: #### 5 8410-2 ####[facility] LABIA [id number] [address] [address] [place] Hemoglobin (Bld) [Mass/Vol] 11.6 g/dL Normal 11.5-15.5 [facility] Comment on above: Order Comment: Speci men Type: BLOOD SPECIMENOrdering Facility: [facility] [place] Address: [address] [place] [address] Performed By: #### 5 8410-2 ####[facility] [id number] [place] [address] [place] MCH (RBC) [Entitic mass] 25.8 pg Low 26.0-34.0 [facility] Comment on above: Order Comment: Speci men Type: BLOOD SPECIMENOrdering Facility: [facility] [place] Address: [address] [place] [address] Performed By: #### 5 8410-2 ####[facility] [id number] [place] [address] [place] MCHC (RBC) [Mass/Vol] 31.7 g/dL Normal 30.5-36.0 [facility] Comment on above: Order Comment: Speci men Type: BLOOD SPECIMENOrdering Facility: [facility] [place] Address: [address] [place] [address] Performed By: #### 5 8410-2 ####[facility] [id number] [place] [address] [place] MCV (RBC) [Entitic vol] 81.5 fL Normal 80.0-100.0 [facility] Comment on above: Order Comment: Speci men Type: BLOOD SPECIMENOrdering Facility: [facility] [place] Address: [address] [place] [address] Performed By: #### 5 8410-2 ####[facility] [id number] [place] [address] [place] Nucleated RBC (Bld) [#/Vol] 10*3/uL Normal <0.01 [facility] Comment on above: Order Comment: Speci men Type: BLOOD SPECIMENOrdering Facility: [facility] [place] Address: [address] [place] [address] Performed By: #### 5 8410-2 ####[facility] LABCLIA [id number] [address] [place] [address] [place] Platelet mean volume (Bld) [Entitic vol] 11.0 fL Normal 9.0-12.7 [facility] Comment on above: Order Comment: Speci men Type: BLOOD SPECIMENOrdering Facility: [facility] [place] Address: [address] [place] [address] Performed By: #### 5 8410-2 ####[facility] LABCLIA [id number] [address], [facility] [place] Platelets (Bld) [#/Vol] 346 10*3/uL Normal 150-400 [facility] Comment on above: Order Comment: Speci men Type: BLOOD SPECIMENOrdering Facility: [facility] [place] Address: [address] [place] [address] Performed By: #### 5 8410-2 ####[facility] LABIA [id number] [place] [address] [place] RBC (Bld) [#/Vol] 4.49 10*6/uL Normal 3.90-5.20 [facility] Comment on above: Order Comment: Speci men Type: BLOOD SPECIMENOrdering Facility: [facility] [place] Address: [address] [place] [address] Performed By: #### 5 8410-2 ####[facility] LABCLIA [id number] [place] [id number] [place] WBC (Bld) [#/Vol] 4.99 10*3/uL Normal 3.70-11.00 [facility] Comment on above: Order Comment: Speci men Type: BLOOD SPECIMENOrdering Facility: [facility] [place] Address: [address] [place] [address] Performed By: #### 5 8410-2 ####[facility] LABIA [id number] [place] [id number] [place] CNOVon 10-09-2025 CNOV Office Visit (FAMPWS) CHAVO TOM ([id number]) 1980 F Date Time Provider Department 07/13/25 9:00 AM [facility] your visit today, we recorded the following information about you: Pulse Blood pressure Weight Height 65/minute 100/64 68 kg 1.78 m Yissel Atkinson APRN.CNP 07/13/2025 10:44 AM Signed Chief Reason For Appointment Patient presents with: Yearly Exam Chavo Tom is a 45 year old female who presents for annual exam. Last office visit date: 01/12/2025 Accompanied By self only Have you had any critical events, hospital stays, ER visits, surgeries or procedures since your last visit here in our office: Yes EGD Specialists/Other Healthcare Providers Seen: Patient Care Team: Yissel Atkinson APRN.CNP as PCP - General (Family Medicine) Oneyda Recinos MD as Primary Staff Physician (Cardiology) Jayjay Ortiz MD as Primary Staff Physician (Cardiology) 15, Pharmacist as Pharmacist (Pharmacy) Tony Dimas MD (Ophthalmology) Concerns today: None HPI The patient is a 45-year-old female with dilated cardiomyopathy status post ICD placement and peptic ulcer disease, presenting for annual wellness examination and evaluation of persistent GERD symptoms. Chavo is a 45-year-old female with a history of dilated cardiomyopathy, presenting for an annual wellness visit, with additional complaints of GERD and cold intolerance. Annual Wellness Exam: - Recent weight loss; no longer using CPAP. - No recent hospitalizations or ER visits. - Denies fever, chills, headaches, changes in hearing or vision, neck swelling, dyspnea, cough, chest pain, leg swelling, dysuria, hematuria, joint pain, rashes, thirst, syncope, seizures, or tremors. - Denies feelings of hopelessness, helplessness, or suicidal ideation. - Family history of dilated cardiomyopathy in sister and son. - Grandfather at age 40 from a heart attack. - Mother has cardiac issues, but not HOCM. - New glasses; no longer wearing contacts due to corneal issues. - Declined hepatitis B vaccine. - Due for an annual cardiac checkup; trying to schedule an appointment with cargo checker. GERD: - Recent increase in acid reflux, especially at night. - Wakes up coughing due to reflux. - Nocturnal symptoms began post-surgery. - Uses Tums for relief. - Recent endoscopy showed persistent ulcer. Cold Intolerance: - Feels cold frequently, even in warm weather. - Wonders if Coumadin is contributing to cold intolerance. Pre-Diabetes: - Previously diagnosed with pre-diabetes; believes it has resolved. Dilated Cardiomyopathy: - Diagnosed after syncope episode at work. - Has an ICD. - Believes condition is familial; sister and son have the gene. Hypokalemia: - Last labs showed low potassium levels. - Inquires about potassium supplements. 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 -s/p Myectomy AND MVr: ASA. Echo AND surg path reviewed. 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 -A-fib s/p PVI AND Clip: Afib with RVR overnight (11/22 to 11/23) - treated with Cardizem and Amio. Converted back to SR. Per CTS stop Amio and increase Metoprolol. Afib recurred early afternoon (11/23) - Amio 150mg bolus and 400mg po TID ordered. Continues to have paroxysms of A-fib but they are well tolerated AND ra Marginal Ulcer - 02/29/2024 Obesity, Class I, Bmi 30-34.9 - 05/07/2023 Retirement (Current) Use of Anticoagulants - 03/12/2023 S/P Gastric Bypass - 03/05/2023 History of Atrial Fibrillation - 11/19/2022 [place] (Obstructive Sleep Apnea) - 11/05/2022 Comment: 02/20/2023 New set: Settings 4 - 8 cm H2O, suitable mask per pt preference (nasal or pillow opt), chin strap, head gear, humidity, tubing, lifetime supplies. G47.33 [facility]; [facility]# [phone]------FA X# [phone] Metabolic Syndrome - 10/02/2022 Pre-Diabetes - 10/02/2022 Vitamin D Deficiency, Unspecified - 10/02/2022 Patient Under Care of Multiple Providers - 02/05/2022 Comment: ICD Dr. Oneyda Recinos 1st; Dr. Oneyda Plunkett Documentation Coordinator Dr. Gaston Eller [facility] Dr. Jayjay Ortiz Rojas [place] Paroxysmal Atrial Fib (more content not included)... Normal [facility] Comprehensive metabolic 2000 panelon 07-13-2025 Albumin [Mass/Vol] 4.1 g/dL Normal 3.9-4.9 [facility] Comment on above: Order Comment: Speci men Type: BLOOD SPECIMENOrdering Facility: [facility] [place] Address: [address] [place] [address] Performed By: #### 2 4323-8, LIPNF, , 3015-3 ####[facility] LABCLIA [id number] [address] [address] [place] ALP [Catalytic activity/Vol] 68 U/L Normal 34-123 [facility] Comment on above: Order Comment: Speci men Type: BLOOD SPECIMENOrdering Facility: [facility] [place] Address: [address] [place] [address] Performed By: #### 2 4323-8, LIPNF, , 3015-3 ####[facility] LABCLIA [id number] [address] [address] [place] ALT [Catalytic activity/Vol] 16 U/L Normal 7-38 [facility] Comment on above: Order Comment: Speci men Type: BLOOD SPECIMENOrdering Facility: [facility] [place] Address: [address] [place] [address] Performed By: #### 2 4323-8, LIPNF, 51414-1, 6-3 ####[facility] LABCLIA [id number] [address] [address] [place] Anion gap [Moles/Vol] 12 mmol/L Normal 8-15 [facility] Comment on above: Order Comment: Speci men Type: BLOOD SPECIMENOrdering Facility: [facility] [place] Address: [address] [place] [address] Performed By: #### 2 4323-8, LIPNF, , 3015-3 ####[facility] LABIA [id number] [place] [id number] [place] AST [Catalytic activity/Vol] 26 U/L Normal 13-35 [facility] Comment on above: Order Comment: Speci men Type: BLOOD SPECIMENOrdering Facility: [facility] [place] Address: [address] [place] [address] Performed By: #### 2 4323-8, LIPNF, , 6-3 ####[facility] LABCLIA [id number] [address] [address] [place] Bilirubin [Mass/Vol] 0.5 mg/dL Normal 0.2-1.3 [facility] Comment on above: Order Comment: Speci men Type: BLOOD SPECIMENOrdering Facility: [facility] [place] Address: [address] [place], [place] [address] Performed By: #### 2 4323-8, LIPNF, 60758-8, 6-3 ####[facility] LABCLIA [id number] [address] [address] [place] Calcium [Mass/Vol] 9.1 mg/dL Normal 8.5-10.2 [facility] Comment on above: Order Comment: Speci men Type: BLOOD SPECIMENOrdering Facility: [facility] [place] Address: [address] [place] [address] Performed By: #### 2 4323-8, LIPNF, , 3015-3 ####[facility] LABCLIA [id number] [place] [id number] [place] Chloride [Moles/Vol] 106 mmol/L Normal 98-107 [facility] Comment on above: Order Comment: Speci men Type: BLOOD SPECIMENOrdering Facility: [facility] [place] Address: [address] [place] [address] Performed By: #### 2 4323-8, LIPNF, , 3015-3 ####[facility] LABCLIA [id number] [place] [address] [place] CO2 [Moles/Vol] 21 mmol/L Low 22-30 [facility] Comment on above: Order Comment: Speci men Type: BLOOD SPECIMENOrdering Facility: [facility] [place] Address: [address] [place] [address] Performed By: #### 2 4323-8, LIPNF, , 3015-3 ####[facility] LABCLIA [id number] [place] [id number] [place] Creatinine [Mass/Vol] 0.63 mg/dL Normal 0.58-0.96 [facility] Comment on above: Order Comment: Speci men Type: BLOOD SPECIMENOrdering Facility: [facility] [place] Address: [address] [place] [address] Performed By: #### 2 4323-8, LIPNF, , 3015-3 ####[facility] LABCLIA [id number] [place] [address] [place] eGFRcr SerPlBld CKD-EPI 2020 112 mL/min/1.73m??? Normal >=60 [facility] Comment on above: Order Comment: Noni trivedi Type: BLOOD SPECIMENOrdering Facility: [facility] [place] Address: [address] [place] [address] Result Comment: Bety mated Glomerular Filtration Rate (eGFR) is calculated using the 2020 CKD-EPI creatinine equation. This equation utilizes serum creatinine, sex, and age as parameters. The creatinine assay has traceable calibration to isotope dilution-mass spectrometry. Refer to KDIGO guidelines for clinical interpretation. In patients with unstable renal function, e.g. those with acute kidney injury, the eGFR may not accurately reflect actual GFR. Performed By: #### 2 4323-8, LIPNF, 19556-9, 3015-3 ####[facility] LABCLIA [id number] [place] [id number] [place] Glucose [Mass/Vol] 88 mg/dL Normal 74-99 [facility] Comment on above: Order Comment: Noni trivedi Type: BLOOD SPECIMENOrdering Facility: [facility] [place] Address: [address] [place] [address] Result Comment: The [place] [employer] (ADA) provides guidance for cutoff values for fasting glucose and random glucose. The ADA defines fasting as no caloric intake for at least 8 hours. Fasting plasma glucose results between 100 to 125 mg/dL indicate increased risk for diabetes (prediabetes). Fasting plasma glucose results greater than or equal to 126 mg/dL meet the criteria for diagnosis of diabetes. In the absence of unequivocal hyperglycemia, results should be confirmed by repeat testing. In a patient with classic symptoms of hyperglycemia or hyperglycemic crisis, random plasma glucose results greater than or equal to 200 mg/dL meet the criteria for diagnosis of diabetes. Reference: Standards of Medical Care in Diabetes 2016, [place] [employer] Association. Diabetes Care. 2016.39(Suppl 1). Performed By: #### 2 4323-8, LIPNF, 80068-7, 6-3 ####[facility] LABCLIA [id number] [address] [address] [place] Potassium [Moles/Vol] 4.2 mmol/L Normal 3.7-5.1 [facility] Comment on above: Order Comment: Speci men Type: BLOOD SPECIMENOrdering Facility: [facility] [place] Address: [address] [place] [address] Performed By: #### 2 4323-8, LIPNF, 76159-3, 6-3 ####[facility] LABCLIA [id number] [place] [id number] [place] Protein [Mass/Vol] 6.9 g/dL Normal 6.3-8.0 [facility] Comment on above: Order Comment: Speci men Type: BLOOD SPECIMENOrdering Facility: [facility] [place] Address: [address] [place] [address] Performed By: #### 2 4323-8, LIPNF, , 3015-3 ####[facility] LABCLIA [id number] [place] [id number] [place] Sodium [Moles/Vol] 139 mmol/L Normal 136-144 [facility] Comment on above: Order Comment: Speci men Type: BLOOD SPECIMENOrdering Facility: [facility] [place] Address: [address] [place] [address] Performed By: #### 2 4323-8, LIPNF, , 3015-3 ####[facility] LABCLIA [id number] [place] [id number] [place] Urea nitrogen [Mass/Vol] 15 mg/dL Normal 7-21 [facility] Comment on above: Order Comment: Speci men Type: BLOOD SPECIMENOrdering Facility: [facility] [place] Address: [address] [place] [address] Performed By: #### 2 4323-8, LIPNF, 63398-5, 6-3 ####[facility] LABCLIA [id number] [address] [address] [place] HbA1c (Bld)on 07-13-2025 Average glucose Estimated from glycated hemoglobin (Bld) [Mass/Vol] 111 mg/dL Normal [facility] Comment on above: Order Comment: Noni trivedi Type: BLOOD SPECIMENOrdering Facility: [facility] [place] Address: [address] [place] [address] Result Comment: eAG: (Estimated average glucose) is a calculated value from HgbA1c and is area representative of the average blood glucose level in the last 2-3 month period. Performed By: #### 5 5454-3 ####[facility] LABCLIA [id number] [address] [place] HbA1c (Bld) [Mass fraction] 5.5 % Normal 4.3-5.6 [facility] Comment on above: Order Comment: Noni trivedi Type: BLOOD SPECIMENOrdering Facility: [facility] [place] Address: [address] [place] [address] Result Comment: [place] Diabetes Association guidelines indicate that patients with HgbA1c in the range 5.7-6.4% are at increased risk for development of diabetes, and intervention by lifestyle modification may be beneficial. HgbA1c greater or equal to 6.5% is considered diagnostic of diabetes. Performed By: #### 5 5454-3 ####[facility] LABCLIA [id number] [place] [address] [place] LIPID PANEL, NONFASTINGon Cholesterol [Mass/Vol] 135 mg/dL Normal <200 [facility] Comment on above: Order Comment: Noni trivedi Type: BLOOD SPECIMENOrdering Facility: [facility] [place] Address: [address] [place] [address] Result Comment: <200 mg/dL, Desirable 200-239 mg/dL, Borderline high >239 mg/dL, High Performed By: #### 2 4323-8, LIPNF, 24161-1, 3016-3 ####[facility] LABIA [id number] [place] [address] [place] HDL CHOLESTEROL, NF 65 mg/dL Normal >39 [facility] Comment on above: Order Comment: Noni trivedi Type: BLOOD SPECIMENOrdering Facility: [facility] [place] Address: [address] [place] [address] Result Comment: 40-5 9 mg/dL, Acceptable >59 mg/dL, High: Negative risk factor for coronary heart disease <40 mg/dL, Low: Positive risk factor for coronary heart disease Performed By: #### 2 4323-8, TONI, , 3015-3 ####[facility] LABIA [id number] [id number] [place] [address] OF [facility] LDL CHOLESTEROL CALCULATED, NF 59 mg/dL Normal <100 [facility] Comment on above: Order Comment: Carolinajose trivedi Type: BLOOD SPECIMENOrdering Facility: [facility] [place] Address: [address] [place] [address] Result Comment: <100 mg/dL, Optimal 100-129 mg/dL, Near optimal/above optimal 130-159 mg/dL, Borderline high 160-189 mg/dL, High >189 mg/dL, Very high Secondary prevention optimal LDL Cholesterol levels are recommended to be <70 mg/dL LDL cholesterol is calculated using the Stone-NIH equation. Performed By: #### 2 4323-8, LIPANAND, , 3015-3 ####[facility] LABIA [id number] [address] OF [facility] LDL/HDL RATIO, NF 0.91 mg/dL Normal <2.54 [facility] Comment on above: Order Comment: Noni trivedi Type: BLOOD SPECIMENOrdering Facility: [facility] [place] Address: [address] [place] [address] Result Comment: Betito bobo: 1. National Cholesterol Education Program ATP III Guideline At-A-Glance Quick Desk Reference: National Heart, Lung, and Blood [place]. National Institutes of Health. 2001: NIH Publication No. 01-3305. 2. An International Atherosclerosis Society position paper: global recommendations for the management of dyslipidemia: executive summary, Atherosclerosis. 2014: 232(2):410-413. Performed By: #### 2 4323-8, LIPNF, , 3015-3 ####[facility] LABCLIA [id number] [place] [id number] [place] NON HDL CHOL, NF 70 mg/dL Normal <130 [facility] Comment on above: Order Comment: Speci men Type: BLOOD SPECIMENOrdering Facility: [facility] [place] Address: [address] [place] [address] Result Comment: <130 mg/dL, Optimal 130-159 mg/dL, Near optimal/above optimal 160-189 mg/dL, Borderline high 190-219 mg/dL, High >219 mg/dL, Very high Secondary prevention optimal non HDL Cholesterol levels are recommended to be <100 mg/dL Performed By: #### 2 4323-8, LIPNF, , 3015-3 ####[facility] LABCLIA [id number] [place] [address] [place] T CHOL/HDL RATIO NF 2.08 mg/dL Normal <5.10 [facility] Comment on above: Order Comment: Speci men Type: BLOOD SPECIMENOrdering Facility: [facility] [place] Address: [address] [place] [address] Performed By: #### 2 4323-8, LIPNF, , 3015-3 ####[facility] LABCLIA [id number] [place] [address] [place] TRIGLYCERIDES, NF 51 mg/dL Normal <150 [facility] Comment on above: Order Comment: Speci men Type: BLOOD SPECIMENOrdering Facility: [facility] [place] Address: [address] [place] [address] Result Comment: <150 mg/dL, Normal 150-199 mg/dL, Borderline high 200-499 mg/dL, High >499 mg/dL, Very high Performed By: #### 2 4323-8, LIPNF, , 3015-3 ####[facility] LABCLIA [id number] [place] [address] [place] VLDL CHOLESTEROL, NF 7 mg/dL Normal <30 [facility] Comment on above: Order Comment: Noni trivedi Type: BLOOD SPECIMENOrdering Facility: [facility] [place] Address: [address] [place] [address] Performed By: #### 2 4323-8, LIPNF, 78794-0, 3016-3 ####[facility] LABCLIA [id number] [place] [address] [place] Magnesium SerPl-mCncon 07-13 Magnesium [Mass/Vol] 2.1 mg/dL Normal 1.7-2.3 [facility] Comment on above: Order Comment: Noni trivedi Type: BLOOD SPECIMENOrdering Facility: [facility] [place] Address: [address] [place] [address] Performed By: #### 2 4323-8, LIPNF, 87143-7, 6-3 ####[facility] LABCLIA [id number] [place] [address] [place] PT panel Coag (PPP)on 2024 INR Coag (PPP) [Relative time] 1.2 {INR} Normal 0.9-1.3 [facility] Comment on above: Order Comment: Noni trivedi Type: BLOOD SPECIMENOrdering Facility: [facility] [place] Address: [address] [place] [address] Result Comment: Sasha min K Antagonist (VKA) Therapeutic Range: INR 2 to 3 (Target INR of 2.5) Note: For patients treated with VKA drugs, such as warfarin, the [place] [employer] 2012 Guideline recommends a therapeutic INR range of 2 to 3 (target INR of 2.5). This recommendation includes high-risk patients with antiphospholipid syndrome with previous arterial or venous thromboembolism, current-generation mechanical or bioprosthetic aortic heart valve replacement. Note: Patients with mechanical aortic valve replacement and additional risk factors for thromboembolic events (atrial fibrillation, previous thromboembolism, LV dysfunction, hypercoagulable conditions) or an older generation mechanical AVR (i.e., ball in-Cage) or any mechanical MVR should have a INR therapeutic range of 2.5 to 3.5 (target INR of 3). Santi GH, et al. Chest 2012, 141:7S-47S Luzmaria RA, et al. [facility] 2017, 70: 252-289 Performed By: #### 3 4528-0 ####[facility] LABCLIA [id number] [place] [address] [place] PT Coag (PPP) [Time] 12.4 s Normal 9.7-13.0 [facility] Comment on above: Order Comment: Speci men Type: BLOOD SPECIMENOrdering Facility: [facility] [place] Address: [address] [place] [address] Performed By: #### 3 4528-0 ####[facility] [id number] [place] [address] [place] TSH SerPl-aCncon 07-13-2025 TSH Qn 1.390 m[IU]/L Normal 0.270-4.200 [facility] Comment on above: Order Comment: Speci men Type: BLOOD SPECIMENOrdering Facility: [facility] [place] Address: [address] [place] [address] Result Comment: If t he patient is , TSH reference range varies by gestational period: First Trimester (weeks 9-12): 0.180-2.990 mIU/L Second Trimester: 0.110-3.980 mIU/L Third Trimester: 0.480-4.710 mIU/L Ziggy Murillo et al. A Practical Approach for the Verifications and Determination of Site- and Trimester-Specific Reference Intervals for Thyroid Function tests in . Thyroid, 2019:29:3:412-420. Live E, et al. 2017 Guidelines of the [place] Thyroid Association for the Diagnosis and Management of Thyroid Disease during and the . Thyroid, 2017:27:3:315-389. Performed By: #### 2 4323-8, LIPNF, 38854-0, 3016-3 ####[facility] LABIA [id number] [address] [address] [place] Vit B12 Keya-arjnu -09-2 025 Cobalamin (Vitamin B12) [Mass/Vol] 954 pg/mL Normal 232-1245 [facility] Comment on above: Order Comment: Speci men Type: BLOOD SPECIMENOrdering Facility: [facility] [place] Address: [address] [place] [address] Performed By: #### 2 132-9 ####[facility] LABCLIA [id number] [facility] [place] [address] [place] CNPNon 06-09-2025 CNPN Telephone (PHARMN) CHAVO TOM ([id number]) 1980 F Date Time Provider Department 06/09/25 PHARMACIST PHARMN During your visit today, we recorded the following information about you: Sera ([place])Bernardo 06/09/2025 9:32 AM Signed Received fax from [facility] with INR results for patient. Patient tested on 06/08/2025 and the INR result was 1.2. Fax can be found under scanned documents as miscellaneous lab result. [facility] PT INR (no units) Date Value 06/08/2025 1.2 05/31/2025 2.2 05/24/2025 1.1 Bernardo Zamora, Chief Data Officer (spray gun striper) Pharmacy Anticoagulation Clinic Jackson ([place]Maine Ramon 06/09/2025 11:35 AM Signed Received call from Jane with [employer]) for patient. Patient tested on Date: 06/08 with an out of range INR result of 1.2. PT INR (no units) Date Value 06/08/2025 1.2 05/31/2025 2.2 05/24/2025 1.1 Maine Paz ([place]) Milla Douglas, [facility] 06/09/2025 5:05 PM Signed [facility] Anticoagulation Episode Summary Anticoagulation Care Providers Provider Role Specialty Phone number Oneyda Recinos MD Referring Cardiology [phone] Chavo Tom is a 44 year old year old female patient being evaluated today for a Telemanagement visit. Patient is currently on the following anticoagulant(s) Warfarin. Labs Lab Results Component Value Date INR 1.2 06/08/2025 INR 2.2 05/31/2025 INR 1.1 05/24/2025 Lab Results Component Value Date HB 12.9 01/12/2025 HB 13.3 07/14/2024 HB 12.0 03/03/2024 Lab Results Component Value Date HCT 39.6 01/12/2025 HCT 40.6 07/14/2024 HCT 36.0 03/03/2024 Lab Results Component Value Date PLT 336 01/12/2025 PLT 383 07/14/2024 PLT 227 03/03/2024 Lab Results Component Value Date CREAT 0.61 03/22/2025 CREAT 0.66 01/12/2025 CREAT 0.77 07/14/2024 No components found for: "TBILI3" Lab Results Component Value Date ALT 17 01/12/2025 ALT 19 07/14/2024 ALT 30 02/29/2024 Lab Results Component Value Date AST 26 01/12/2025 AST 26 07/14/2024 AST 62 (H) 02/29/2024 CrCl cannot be calculated (Unknown ideal weight.). ALLERGIES Allergen Reactions Metformin Diarrhea Nsaids (Non-Steroid* Contraindication-Med ical Surgical S/p gastric bypass, relative contraindication to NSAIDs Indication for Warfarin: Atrial fibrillation, unspecified type (hcc) Paroxysmal atrial fibrillation (hcc) halfway (current) use of 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 Anticoagulation Episode Summary Current INR goal: 2.0-3.0 Assessment: INR result of 1.2 is SUBtherapeutic due to: unknown cause - did not speak to patient Again left a pleading message to pt to Call [facility] at [phone] and at least leave a voicemail with current warfarin dosing, this is the issue I am running into with the pt is that I am not sure what dosing of warfarin she is taking and have difficulty making dosing decisions based off of that dosing Plan: Current Warfarin Dosing As of 06/09/2025 Full warfarin instructions: 06/09: 10 mg; 06/10: 10 mg; Otherwise 7.5 mg every day Left voice message And sent mychart message Advised patient to increase dose for 2 days only then resume weekly regimen as noted above - made dosing decision based off of most recent dosing we had in chart (7.5mg daily) Next home INR check scheduled on 06/15/2025 Advised pt to Call [facility] at [phone] to confirm dosing and schedule follow-up Milla Douglas [facility] Clinical Pharmacist, Pharmacy Anticoagulation Clinic Pharmacy [facility]tico[facility] Clinic Pager: [phone]. Milla Douglas RPh 06/15/2025 2:40 PM Signed Patient was due to test INR today. Will continue to monitor for results. Follow up in one week if no results received. Patient's INR Goal range is - 2.0-3.0 PT INR (no units) Date Value 06/08/2025 1.2 05/31/2025 2.2 05/24/2025 1.1 Patient is in titration phase - No Patient has dosing provided until next INR - Yes Patient is on an injectable anticoagulant - No Trino Chavez Kim, RPh 06/22/2025 4:11 PM Signed Chavo Tom was called and reminded to test INR today or as soon as possible. Lora Raza logan Paz ([place]man)Maine 06/30/2025 3:35 PM Signed No return call from patient. [facility] added to DC list: Letter sent. FINAL ATTEMPT letter sent at this time. If no response from patient within 3 weeks of letter being sent, patient will be discharged from PAC at that time. Will also route to referring MD as FYI and to see if office can assist in reaching patient. Maine Paz CPhT (Chief Data Officer) Pharmacy Anticoagulation Clinic Allergies As of Date: 06/09/2025 Noted Allergy Reaction METFORMIN 01/23/2022 6 - Diarrhea NSAIDS (NON-STEROIDAL ANTI-INFLAM*01/13/20 24 15 - (more content not included)... Normal [facility] INRon 06-08-2025 INR Coag (Bld) [Relative time] 1.2 {INR} [facility] CNPNon 06-06-2025 CNPN Telephone (CARDMN) CHAVO TOM ([id number]) 1980 F Date Time Provider Department 06/06/25 ONEYDA RECINOS During your visit today, we recorded the following information about you: Jumana Murguia RN 06/06/2025 12:49 PM Signed ----- Message from Oneyda Recinos MD sent at 06/05/2025 10:55 AM EDT ----- I will ask my excellent nurse, Jumana, to call and discuss. Not sure I can offer much beyond that. It would be nice to get her on a NOAC, but I think her history of gastric bypass makes that a non-starter. TC ----- Message ----- From: Milla Douglas [facility] Sent: 06/02/2025 3:28 PM EDT To: Oneyda Recinos MD Hi Dr. Recinos, This pt is on warfarin and has a home meter through the company that we use at the [facility]. We are currently managing her warfarin dosing per INR results. Her INRs are frequently out of range (TTR for last year= 20%). This patient never answers our phone calls. We even make sure to call her after 3:30pm (which is when she gets out of work). I am just shooting in the dark when it comes to dosing because karen what dose she's taking. INRs go down to 1.1 then up to 2.2 a week later and we have no idea what she is doing with her dosing. Any idea how we can get the seriousness of being in touch with the pharmacist and calling us to discuss dosing? I would appreciate any way you or your department could assist. Thanks! Milla Douglas, Jumana Hernandez RN 06/06/2025 12:51 PM Signed Called patient, message left to call back stressing importance of reason for call to check in on her. Page me [phone] when she calls back. LALI Wilkins Shannon, RN 06/06/2025 1:07 PM Signed Spoke with patient, she often works long hours and has trouble answering phone at work. Last week 05/31/25 her INR was 2.2 and she is due to check tomorrow. She prefers [facility] send her [employer] messages when they cannot reach her by phone. Jumana Murguia RN Allergies As of Date: 06/06/2025 Noted Allergy Reaction METFORMIN 01/23/2022 6 - Diarrhea NSAIDS (NON-STEROIDAL ANTI-INFLAM*01/13/20 24 15 - Contraindication-Med ical Chow* Comments: S/p gastric bypass, relative contraindication to NSAIDs Date Reviewed: 03/08/2025 Reviewed by: Justo Gerber RN - Fully Assessed Prescriptions as of 06/06/2025 - metoprolol succinate ER (TOPROL XL) 25 mg 24 hr tablet Take 1.5 tablets by mouth once daily. - sotalol (BETAPACE) 120 mg tablet Take 1 tablet by mouth two times a day. - pantoprazole DR (PROTONIX) 40 mg tablet Take 1 tablet by mouth two times a day. - sucralfate (CARAFATE) 1 gram tablet Take 1 tablet by mouth four times daily. - doxycycline (VIBRA-TABS) 100 mg tablet TAKE 1/2 (ONE-HALF) OF A TABLET BY MOUTH TWICE DAILY - warfarin (COUMADIN) 5 mg tablet Take 1.5 tablets by mouth once daily. Equally 7.5 mg Daily - levonorgestrel (MIRENA) 21 mcg/24hr (up to 8 yrs) 52 mg IUD 1 each by INTRAUTERINE route as directed. - cycloSPORINE (RESTASIS) 0.05 % ophthalmic emulsion Use 1 drop in both eyes two times a day. - cycloSPORINE-chondro itin sulfate A (KLARITY-C) 0.1-0.25 % ophthalmic drops Use 1 drop in both eyes two times a day. - cyanocobalamin (VITAMIN B-12) 1,000 mcg tab Take 1 tablet by mouth once daily. - multivitamin tablet Take 1 tablet by mouth once daily. - calcium carbonate (TUMS) 500 mg chew Take 1 tablet by mouth three times a day. - cholecalciferol, vitamin D3, (VITAMIN D3 ORAL) Take by mouth. - tacrolimus (PROTOPIC) 0.03 % ointment Apply to affected area twice daily. Meds Comments as of 05/09/2024: 05/09/24 The medications are managed by this patient by: PATIENT Zohreh Dc, OA Problem List As Of Date 06/06/2025 Noted Resolved SUPERVIS NORMAL 1ST PREG [Z34.00] 03/11/2008 03/27/2009 PLACENTA PREVIA-ANTEPART [O44.00] 07/21/2008 10/16/2008 Impaired glucose tolerance [R73.02] 01/21/2011 Irregular menstrual cycle [N92.6] 11/05/2011 08/04/2012 Vaginal high risk HPV DNA test positive [R87.81*08/04/2012 Palpitation [R00.2] 01/18/2014 Family history of hypertrophic cardiomyopathy [*01/18/2014 09/22/2018 HOCM (hypertrophic obstructive cardiomyopathy) *11/01/2014 Body mass index 40.0-44.9, adult (HCC) [Z68.41] Atrial fibrillation (HCC) [I48.91] Ventricular tachyarrhythmia (HCC) [I47.20] 02/02/2014 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 Normal [facility] CNPNon 05-25-2025 CNPN Telephone (PHARMN) CHAVO TOM ([id number]) 1980 F Date Time Provider Department 05/25/25 PHARMACIST PHARMN During your visit today, we recorded the following information about you: Siobhan Calloway RN 05/25/2025 9:03 AM Signed mdINR left a voicemail advising patient's INR was 1.1 on 05/24/2025. Results have not yet been received into [facility]. PT INR (no units) Date Value 05/01/2025 1.2 04/06/2025 1.8 03/22/2025 2.7 Bozena Calloway RN Pharmacy Anticoagulation Clinic Sera ([place])Bernardo 05/25/2025 9:35 AM Signed Received fax from [facility] with INR results for patient. Patient tested on 05/24/2025 and the INR result was 1.1. Fax can be found under scanned documents as miscellaneous lab result. [facility] PT INR (no units) Date Value 05/24/2025 1.1 05/01/2025 1.2 04/06/2025 1.8 Bernardo Zamora Chief Data Officer (spray gun striper) Pharmacy Anticoagulation Clinic Milla Douglas, [facility] 05/25/2025 5:19 PM Signed [facility] Anticoagulation Episode Summary Anticoagulation Care Providers Provider Role Specialty Phone number Oneyda Recinos MD Referring Cardiology [phone] Chavo Tom is a 44 year old year old female patient being evaluated today for a Telemanagement visit. Patient is currently on the following anticoagulant(s) Warfarin. Labs Lab Results Component Value Date INR 1.1 05/24/2025 INR 1.2 05/01/2025 INR 1.8 04/06/2025 Lab Results Component Value Date HB 12.9 01/12/2025 HB 13.3 07/14/2024 HB 12.0 03/03/2024 Lab Results Component Value Date HCT 39.6 01/12/2025 HCT 40.6 07/14/2024 HCT 36.0 03/03/2024 Lab Results Component Value Date PLT 336 01/12/2025 PLT 383 07/14/2024 PLT 227 03/03/2024 Lab Results Component Value Date CREAT 0.61 03/22/2025 CREAT 0.66 01/12/2025 CREAT 0.77 07/14/2024 No components found for: "TBILI3" Lab Results Component Value Date ALT 17 01/12/2025 ALT 19 07/14/2024 ALT 30 02/29/2024 Lab Results Component Value Date AST 26 01/12/2025 AST 26 07/14/2024 AST 62 (H) 02/29/2024 CrCl cannot be calculated (Unknown ideal weight.). ALLERGIES Allergen Reactions Metformin Diarrhea Nsaids (Non-Steroid* Contraindication-Med ical Surgical S/p gastric bypass, relative contraindication to NSAIDs Indication for Warfarin: Atrial fibrillation, unspecified type (hcc) Paroxysmal atrial fibrillation (hcc) halfway (current) use of 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 Anticoagulation Episode Summary Current INR goal: 2.0-3.0 Assessment: INR result of 1.1 is SUBtherapeutic due to: unknown cause - did not speak to patient Plan: Current Warfarin Dosing As of 05/25/2025 Full warfarin instructions: 05/25: 10 mg; Otherwise 7.5 mg every day Left voice message Advised patient to take 10mg today and then call PAC to discuss further Will call again tomorrow Milla Douglas [facility] Clinical Pharmacist, Pharmacy Anticoagulation Clinic Pharmacy Anticoagulation Clinic Pager: [phone]. Allergies As of Date: 05/25/2025 Noted Allergy Reaction METFORMIN 01/23/2022 6 - Diarrhea NSAIDS (NON-STEROIDAL ANTI-INFLAM*01/13/20 24 15 - Contraindication-Med ical Chow* Comments: S/p gastric bypass, relative contraindication to NSAIDs Date Reviewed: 03/08/2025 Reviewed by: Justo Gerber RN - Fully Assessed Reason for Visit: Anticoagulation [8] Primary Visit Diagnosis:Atrial fibrillation, unspecified type (HCC) [I48.91] Other Visit Diagnoses:Paroxysmal atrial fibrillation (HCC) [I48.0] halfway (current) use of 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 [Z79.01] Order(s):INR [[id number]] Order #: [id number] Prescriptions as of 08/08/2025 - pantoprazole DR (PROTONIX) 40 mg tablet Take 1 tablet by mouth two times a day. - metoprolol succinate ER (TOPROL XL) 25 mg 24 hr tablet Take 1.5 tablets by mouth once daily. - sotalol (BETAPACE) 120 mg tablet Take 1 tablet by mouth two times a day. - sucralfate (CARAFATE) 1 gram tablet Take 1 tablet by mouth four times daily. - doxycycline (VIBRA-TABS) 100 mg tablet TAKE 1/2 (ONE-HALF) OF A TABLET BY MOUTH TWICE DAILY - warfarin (COUMADIN) 5 mg tablet Take 1.5 tablets by mouth once daily. Equally 7.5 mg Daily - levonorgestrel (MIRENA) 21 mcg/24hr (up to 8 yrs) 52 mg IUD 1 each by INTRAUTERINE route as directed. - cycloSPORINE (RESTASIS) 0.05 % ophthalmic emulsion Use 1 drop in both eyes two times a day. - cycloSPORINE-chondro itin sulfate A (KLARITY-C) 0.1-0.25 % ophthalmic drops Use 1 drop in both eyes two times a day. - cyanocobalamin (VITAMIN B-12) 1,000 mcg tab Take 1 tablet by mouth once daily. - multivitamin tablet Take 1 tablet by mouth once daily. - calcium carbonate (TUMS) 500 mg chew Take 1 tablet by mouth three times a day. - cholecalciferol, vitamin D3, (VITAMIN D3 ORAL) Take (more content not included)... Normal [facility] Guerline 05-01-2025 GENIEN Telephone (PHARMN) CHAVO TOM ([id number]) 1980 F Date Time Provider Department 05/01/25 PHARMACIST PHARMN During your visit today, we recorded the following information about you: Sera (Levelman)Bernardo 05/01/2025 2:35 PM Signed Received fax from [facility] with INR results for patient. Patient tested on 05/01/2025 and the INR result was 1.2. Fax can be found under scanned documents as miscellaneous lab result. [facility] INR (no units) Date Value 05/01/2025 1.2 04/06/2025 1.8 03/22/2025 2.7 Bernardo Zamora, Chief Data Officer (spray gun striper) Pharmacy Anticoagulation Clinic Jumana oMe RPh 05/01/2025 2:40 PM Signed [facility] Pharmacy Anticoagulation Clinic Anticoagulation Episode Summary Anticoagulation Care Providers Provider Role Specialty Phone number Oneyda Recinos MD Referring Cardiology [phone] Chavo Tom is a 44 year old year old female patient being evaluated today for a Telemanagement visit. Patient is currently on the following anticoagulant(s) Warfarin. Labs Lab Results Component Value Date INR 1.2 05/01/2025 INR 1.8 04/06/2025 INR 2.7 03/22/2025 Lab Results Component Value Date HB 12.9 01/12/2025 HB 13.3 07/14/2024 HB 12.0 03/03/2024 Lab Results Component Value Date HCT 39.6 01/12/2025 HCT 40.6 07/14/2024 HCT 36.0 03/03/2024 Lab Results Component Value Date PLT 336 01/12/2025 PLT 383 07/14/2024 PLT 227 03/03/2024 Lab Results Component Value Date CREAT 0.61 03/22/2025 CREAT 0.66 01/12/2025 CREAT 0.77 07/14/2024 No components found for: "TBILI3" Lab Results Component Value Date ALT 17 01/12/2025 ALT 19 07/14/2024 ALT 30 02/29/2024 Lab Results Component Value Date AST 26 01/12/2025 AST 26 07/14/2024 AST 62 (H) 02/29/2024 Estimated Creatinine Clearance: 118.7 mL/min (based on SCr of 0.61 mg/dL). ALLERGIES Allergen Reactions Metformin Diarrhea Nsaids (Non-Steroid* Contraindication-Med ical Surgical S/p gastric bypass, relative contraindication to NSAIDs Indication for Warfarin: Atrial fibrillation, unspecified type (hcc) Paroxysmal atrial fibrillation (hcc) halfway (current) use of 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 Anticoagulation Episode Summary Current INR goal: 2.0-3.0 Assessment: INR result of 1.2 is SUBtherapeutic due to: Increased vitamin k intake and Missed dose(s) Pt stated she missed a dose last week. Patient stated she has been eating extra salads lately. Plan: Current Warfarin Dosing As of 05/01/2025 Full warfarin instructions: 05/01: 10 mg; 05/02: 10 mg; Otherwise 7.5 mg every day Called and spoke to patient/caregiver Advised patient to increase dose for 2 days only then resume weekly regimen as noted above Next home INR check scheduled on 05/08/2025 Patient verbalizes understanding of the plan. Patient denies need for refills. Patient advised to call the PAC with any medication changes, bleeding/bruising concerns, recent changes in vitamin k consumption, if any procedures are coming up, if they have been ill or in the hospital, and if they have missed any doses of warfarin. Jumana Moe [facility] Clinical Pharmacist, Pharmacy Anticoagulation Clinic Pharmacy Anticoagulation Clinic Pager: [phone]. Sera (LevelmanBernardo Ramon 05/02/2025 9:02 AM Signed [facility] called regarding results. Result has been addressed below. Bernardo Zamora (Levelman) Rosa Moore RPh 05/08/2025 3:49 PM Signed Patient was due to test INR today. Will continue to monitor for results. Follow up in one week if no results received. Patient's INR Goal range is - 2.0-3.0 PT INR (no units) Date Value 05/01/2025 1.2 04/06/2025 1.8 03/22/2025 2.7 Patient is in titration phase - No Patient has dosing provided until next INR - Yes Patient is on an injectable anticoagulant - No Called pt and she prefers to check Thursday, reports will test this Thursday Rosa Moore RPh Milla Douglas [facility] 05/10/2025 4:32 PM Signed No INR result, will push out one week Milla Douglas, JohnnyD Milla Douglas [facility] 05/17/2025 5:09 PM Signed Chavo Jens Tom was called and reminded to test INR today or as soon as possible. Left a vmx Milla Douglas [facility] Allergies As of Date: 05/01/2025 Noted Allergy Reaction METFORMIN 01/23/2022 6 - Diarrhea NSAIDS (NON-STEROIDAL ANTI-INFLAM*01/13/20 24 15 - Contraindication-Med ical Chow* Comments: S/p gastric bypass, relative contraindication to NSAIDs Date Reviewed: 03/08/2025 Reviewed by: Justo Gerber RN - Fully Assessed Reason for Visit: Anticoagulation Telephone Fu [148] Primary Visit Diagnosis:Atrial fibrillation, unspecified type (HCC) [I48.91] Other Visit Diagnoses:Paroxysmal atrial fibrillation (HCC) [I48.0] halfway (current) use of 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 [Z79.01] Order(s (more content not included)... Normal [facility] INRon 05-01-2025 INR Coag (Bld) [Relative time] 1.2 {INR} [facility] [id number] 04-19-2025 ECG01 Ventricular Rate : 75 BPM Atrial Rate : 75 BPM P-R Interval : 148 ms QRS Duration : 130 ms Q-T Interval : 426 ms QTC Calculation(Bazett) : 475 ms Calculated P [place] : 62 degrees Calculated R [place] : 56 degrees Calculated T [place] : 151 degrees NORMAL SINUS RHYTHM COMPLETE LEFT BUNDLE BRANCH BLOCK ABNORMAL ECG Confirmed by MD RANDALL QARAB ([id number]) on 05/03/2025 3:35:24 PM NAME : CHAVO TOM PID : [id number] : 1980 Gender : Female Race : ORD : Procedure Date : Apr 19 2025 15:33:20 Edit Date : May 03 2025 15:35:28 Diagnosis: NORMAL SINUS RHYTHM COMPLETE LEFT BUNDLE BRANCH BLOCK ABNORMAL ECG Confirmed by MD RANDALL QARAB ([id number]) on 05/03/2025 3:35:24 PM Test Reason : Location : 136 : [facility] Overread By : MD RANDALL QARAB Edited By : MD RANDALL QARAB Referred By : ONEYDA RECINOS Acquired by : Marylu Hazel [facility] 04-06-2025 CNPN Telephone (PHARMN) CHAVO TOM ([id number]) 1980 F Date Time Provider Department 04/06/25 PHARMACIST PHARMN During your visit today, we recorded the following information about you: Sera (Levelman)Bernardo 04/06/2025 2:14 PM Signed Received fax from [facility] with INR results for patient. Patient tested on 04/06/2025 and the INR result was 1.8. Fax can be found under scanned documents as miscellaneous lab result. [facility] INR (no units) Date Value 04/06/2025 1.8 03/22/2025 2.7 03/02/2025 1.2 Bernardo Zamora, Chief Data Officer (spray gun striper) [facility]acy [facility] 04/06/2025 2:26 PM Signed [facility]ulatory Pharmacy Anticoagulation Clinic Anticoagulation Episode Summary Anticoagulation Care Providers Provider Role Specialty Phone number Oneyda Recinos MD Referring Cardiology [phone] Chavo Jens Tom is a 44 year old year old female patient being evaluated today for a Telemanagement visit. Patient is currently on the following anticoagulant(s) Warfarin. Labs Lab Results Component Value Date INR 1.8 04/06/2025 INR 2.7 03/22/2025 INR 1.2 03/02/2025 Lab Results Component Value Date HB 12.9 01/12/2025 HB 13.3 07/14/2024 HB 12.0 03/03/2024 Lab Results Component Value Date HCT 39.6 01/12/2025 HCT 40.6 07/14/2024 HCT 36.0 03/03/2024 Lab Results Component Value Date PLT 336 01/12/2025 PLT 383 07/14/2024 PLT 227 03/03/2024 Lab Results Component Value Date CREAT 0.61 03/22/2025 CREAT 0.66 01/12/2025 CREAT 0.77 07/14/2024 No components found for: "TBILI3" Lab Results Component Value Date ALT 17 01/12/2025 ALT 19 07/14/2024 ALT 30 02/29/2024 Lab Results Component Value Date AST 26 01/12/2025 AST 26 07/14/2024 AST 62 (H) 02/29/2024 Estimated Creatinine Clearance: 118.7 mL/min (based on SCr of 0.61 mg/dL). ALLERGIES Allergen Reactions Metformin Diarrhea Nsaids (Non-Steroid* Contraindication-Med ical Surgical S/p gastric bypass, relative contraindication to NSAIDs Indication for Warfarin: Anticoagulation Episode Summary Current INR goal: 2.0-3.0 Assessment: INR result of 1.8 is SUBtherapeutic due to: unknown cause - did not speak to patient Plan: Current Warfarin Dosing As of 04/06/2025 Full warfarin instructions: 04/06: 10 mg; Otherwise 7.5 mg every day Left voice message And will send ChemistDirecthart message Advised patient to increase dose for 1 day only then resume weekly regimen Next home INR check scheduled on 04/13/2025 Pt advised to call PAC if there are any questions, concerns, or changes to report. Patient advised to call the PAC with any medication changes, bleeding/bruising concerns, recent changes in vitamin k consumption, if any procedures are coming up, if they have been ill or in the hospital, and if they have missed any doses of warfarin. Bren Hernandez [facility] Clinical Pharmacist, Pharmacy Anticoagulation Clinic Pharmacy Anticoagulation Clinic Pager: [phone]. Milla Douglas RPh 04/14/2025 9:55 AM Signed Patient was due to test INR today. Will continue to monitor for results. Follow up in one week if no results received. Patient's INR Goal range is - 2.0-3.0 PT INR (no units) Date Value 04/06/2025 1.8 03/22/2025 2.7 03/02/2025 1.2 Patient is in titration phase - No Patient has dosing provided until next INR - Yes Patient is on an injectable anticoagulant - No Milla Douglas [facility] Shakeel Douglasyana, [facility] 04/20/2025 9:21 AM Signed Patient was due to test INR today. Will continue to monitor for results. Follow up in one week if no results received. Patient's INR Goal range is - 2.0-3.0 PT INR (no units) Date Value 04/06/2025 1.8 03/22/2025 2.7 03/02/2025 1.2 Patient is in titration phase - No Patient has dosing provided until next INR - Yes Patient is on an injectable anticoagulant - No Milla Douglas RP Milla Douglas, logan 04/27/2025 3:11 PM Signed Chavo Tom was called and reminded to test INR today or as soon as possible. Left a vmx. Milla Douglas [facility] Allergies As of Date: 04/06/2025 Noted Allergy Reaction METFORMIN 01/23/2022 6 - Diarrhea NSAIDS (NON-STEROIDAL ANTI-INFLAM*01/13/20 24 15 - Contraindication-Med ical Chow* Comments: S/p gastric bypass, relative contraindication to NSAIDs Date Reviewed: 03/08/2025 Reviewed by: Justo Gerber, RN - Fully Assessed Reason for Visit: Anticoagulation Telephone Fu [148] Order(s):INR [[id number]] Order #: [id number] Prescriptions as of 04/27/2025 - pantoprazole DR (PROTONIX) 40 mg tablet Take 1 tablet by mouth two times a day. - sucralfate (CARAFATE) 1 gram tablet Take 1 tablet by mouth four times daily. - doxycycline (VIBRA-TABS) 100 mg tablet TAKE 1/2 (ONE-HALF) OF A TABLET BY MOUTH TWICE DAILY - warfarin (C (more content not included)... Normal [facility] INRon 04-06-2025 INR Coag (Bld) [Relative time] 1.8 {INR} [facility] CNPNon 03-23-2025 CNPN Telephone (PHARMN) CHAVO TOM ([id number]) 1980 F Date Time Provider Department 03/23/25 PHARMACIST PHARMN During your visit today, we recorded the following information about you: Siobhan Calloway RN 03/23/2025 9:09 AM Signed Pharmacy Anticoagulation Clinic received a fax from [facility] for the patient's INR result on 03/22. Fax will be sent to the patient's scanned documents. PT INR (no units) Date Value 03/22/2025 2.7 03/02/2025 1.2 02/18/2025 1.5 Bozena Calloway RN Pharmacy Anticoagulation Clinic [facility] 03/24/2025 8:43 AM Signed [facility] Pharmacy Anticoagulation Clinic Anticoagulation Episode Summary Anticoagulation Care Providers Provider Role Specialty Phone number Oneyda Recinos MD Referring Cardiology [phone] Chavo Tom is a 44 year old year old female patient being evaluated today for a Telemanagement visit. Patient is currently on the following anticoagulant(s) Warfarin. Labs Lab Results Component Value Date INR 2.7 03/22/2025 INR 1.2 03/02/2025 INR 1.5 02/18/2025 Lab Results Component Value Date HB 12.9 01/12/2025 HB 13.3 07/14/2024 HB 12.0 03/03/2024 Lab Results Component Value Date HCT 39.6 01/12/2025 HCT 40.6 07/14/2024 HCT 36.0 03/03/2024 Lab Results Component Value Date PLT 336 01/12/2025 PLT 383 07/14/2024 PLT 227 03/03/2024 Lab Results Component Value Date CREAT 0.61 03/22/2025 CREAT 0.66 01/12/2025 CREAT 0.77 07/14/2024 No components found for: "TBILI3" Lab Results Component Value Date ALT 17 01/12/2025 ALT 19 07/14/2024 ALT 30 02/29/2024 Lab Results Component Value Date AST 26 01/12/2025 AST 26 07/14/2024 AST 62 (H) 02/29/2024 Estimated Creatinine Clearance: 118.7 mL/min (based on SCr of 0.61 mg/dL). 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 Patient denies need for refills. Patient advised to call the PAC with any medication changes, bleeding/bruising concerns, recent changes in vitamin k consumption, if any procedures are coming up, if they have been ill or in the hospital, and if they have missed any doses of warfarin. Milla Douglas RPh Clinical Pharmacist, Pharmacy Anticoagulation Clinic Pharmacy Anticoagulation Clinic Pager: [phone]. Milla Douglas RPh 03/29/2025 2:59 PM Signed Patient was due to test INR today. Will continue to monitor for results. Follow up in one week if no results received. Patient's INR Goal range is - 2.0-3.0 PT INR (no units) Date Value 03/22/2025 2.7 03/02/2025 1.2 02/18/2025 1.5 Patient is in titration phase - No Patient has dosing provided until next INR - Yes Patient is on an injectable anticoagulant - No Trino Chavez Ulyana, RPh 04/05/2025 3:20 PM Signed Chavo Tom was called and reminded to test INR today or as soon as possible. Left a vmx. 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 Equally 7.5 mg Daily - levonorgestrel (MIRENA) 21 mcg/24hr (up to 8 yrs) 52 mg IUD 1 each by INTRAUTERINE route as directed. - cycloSPORINE (RESTASIS) 0.05 % ophthalmic emulsion Use 1 drop in both eyes two times a day. - cycloSPORINE-chondro itin sulfate A (KLARITY-C) 0.1-0.25 % ophthalmic drops Use 1 drop in both eyes two times a day. - cyanocobalamin (VITAMIN B-12) 1,0 (more content not included)... Normal [facility] Basic metabolic 2000 panelon 03-22-2025 Anion gap [Moles/Vol] 11 mmol/L Normal 8-15 [facility] Comment on above: Order Comment: Speci men Type: BLOOD SPECIMENOrdering Facility: [facility] Address: [address] [place], [place] [id number] Performed By: #### 2 4321-2, 63983-7 ####[facility] DOCKERYKELLYMARGO [id number] [place] [id number] [place] Calcium [Mass/Vol] 9.4 mg/dL Normal 8.5-10.2 [facility] Comment on above: Order Comment: Speci men Type: BLOOD SPECIMENOrdering Facility: [facility] [place] Address: [address] [place] [address] Performed By: #### 2 4321-2, ####[facility] NAHEDMemeNCLICarmen [id number] [place] [address] [place] Chloride [Moles/Vol] 105 mmol/L Normal 98-107 [facility] Comment on above: Order Comment: Speci men Type: BLOOD SPECIMENOrdering Facility: [facility] [place] Address: [address] [place] [address] Performed By: #### 2 4321-2, ####[facility] ERNCWILLARDA [id number] [place] [address] [place] CO2 [Moles/Vol] 23 mmol/L Normal 22-30 [facility] Comment on above: Order Comment: Speci men Type: BLOOD SPECIMENOrdering Facility: [facility] Address: [address] [place] [address] Performed By: #### 2 432-2, ####[facility] ERNCLIA [id number] [place] [address] [place] Creatinine [Mass/Vol] 0.61 mg/dL Normal 0.58-0.96 [facility] Comment on above: Order Comment: Speci men Type: BLOOD SPECIMENOrdering Facility: [facility] Address: [address] [place] [address] Performed By: #### 2 4321-2, ####[facility] ERNCLIA [id number] [place] [address] [place] Creatinine and Glomerular filtration rate.predicted panel (S/P/Bld) 113 mL/min/1.73m??? Normal >=60 [facility] Comment on above: Order Comment: Speci men Type: BLOOD SPECIMENOrdering Facility: [facility] Address: [address] [place] [address] Result Comment: Bety mated Glomerular Filtration Rate (eGFR) is calculated using the 2020 CKD-EPI creatinine equation. This equation utilizes serum creatinine, sex, and age as parameters. The creatinine assay has traceable calibration to isotope dilution-mass spectrometry. Refer to KDIGO guidelines for clinical interpretation. In patients with unstable renal function, e.g. those with acute kidney injury, the eGFR may not accurately reflect actual GFR. Performed By: #### 2 432-, ####[facility] [address] [id number] [place] [address] [place] Glucose [Mass/Vol] 73 mg/dL Low 74-99 [facility] Comment on above: Order Comment: Noni trivedi Type: BLOOD SPECIMENOrdering Facility: [facility] [place] Address: [address] [place] [address] Result Comment: The [place] Diabetes Association (ADA) provides guidance for cutoff values for fasting glucose and random glucose. The ADA defines fasting as no caloric intake for at least 8 hours. Fasting plasma glucose results between 100 to 125 mg/dL indicate increased risk for diabetes (prediabetes). Fasting plasma glucose results greater than or equal to 126 mg/dL meet the criteria for diagnosis of diabetes. In the absence of unequivocal hyperglycemia, results should be confirmed by repeat testing. In a patient with classic symptoms of hyperglycemia or hyperglycemic crisis, random plasma glucose results greater than or equal to 200 mg/dL meet the criteria for diagnosis of diabetes. Reference: Standards of Medical Care in Diabetes 2016, [place] [employer] Association. Diabetes Care. 2016.39(Suppl 1). Performed By: #### 2 4321-2, ####[facility] [id number] [place] [address] [place] Potassium [Moles/Vol] 3.4 mmol/L Low 3.7-5.1 [facility] Comment on above: Order Comment: Noni trivedi Type: BLOOD SPECIMENOrdering Facility: [facility] [place] Address: [address] [place] [id number] Performed By: #### 2 4321-2, 77393-1 ####[facility] REYNAWNCLIA [id number] [place] [address] [place] Sodium [Moles/Vol] 139 mmol/L Normal 136-144 [facility] Comment on above: Order Comment: Speci men Type: BLOOD SPECIMENOrdering Facility: [facility] [place] Address: [address] [place] [address] Performed By: #### 2 4321-2, ####[facility] ERNCLIA [id number] [place] [address] [place] Urea nitrogen [Mass/Vol] 8 mg/dL Normal 7-21 [facility] Comment on above: Order Comment: Speci men Type: BLOOD SPECIMENOrdering Facility: [facility] [place] Address: [address] [place] [address] Performed By: #### 2 4321-2, ####[facility] ERNCLIA [id number] [place] [address] [place] INRon 03-22-2025 INR Coag (Bld) [Relative time] 2.7 {INR} [facility] Magnesium SerPl-mCncon 03-22 Magnesium [Mass/Vol] 1.9 mg/dL Normal 1.7-2.3 [facility] Comment on above: Order Comment: Speci men Type: BLOOD SPECIMENOrdering Facility: [facility] [place] Address: [address] [place], [place] [address] Performed By: #### 2 4321-2, 77071-6 ####[facility] HOSPITALWNCLIA [id number] [place] [address] [place] ANES POSTPROC EVALon 025 ANES POSTPROC EVAL HNO ID: [id number] Author: ELLEN DODSON DO Service: Anesthesiology Author Type: Anesthesiologist Type: Anesthesia Postprocedure Evaluation Filed: 03/08/2025 12:40 Note Text: POST ANESTHESIA EVALUATION NOTE : 1980 Procedure Summary Date: 03/08/25 Room / Location: [facility] Endoscopy Anesthesia Start: 1126 Anesthesia Stop: 1149 Procedure: EGD DIAGNOSTIC Diagnosis: Marginal ulcer S/P gastric bypass (Established peptic ulcer) Scheduled Providers: Maryana Bailey MD; Paige Cortes APRN.CRNA; Ellen Dodson DO Responsible Provider: Ellen Dodson DO Anesthesia Type: MAC ASA Status: 3 Anesthesia Type: MAC Last Vitals Vitals Value Taken Time BP 102/66 03/08/25 1200 Temp 36.4 ?C (97.5 ?F) 03/08/25 1150 Pulse 44 03/08/25 1207 Resp 18 03/08/25 1200 SpO2 100 % 03/08/25 1207 Vitals shown include unfiled device data. Post Anesthesia Patient Status Patient Evaluation: PACU. PACU/ICU Patient Condition: stable. Anticipated Disposition: phase 2 then home. Neurological Status: aware and responsive. Pulmonary Status: breathing comfortably on room air Airway Control: returned to baseline unsupported. Cardiovascular Status: stable. Pain Management: clinically adequate Postoperative Hydration: acceptable. Intraoperative Events: no significant anesthesia events Post Operative Nausea/Vomiting Status: no significant post operative nausea or vomiting Recommendation: continue current plan of care and further care per PACU/ICU/floor team. Anesthesia Observations No Documentation SIGNATURE: Ellen Dodson DO PATIENT NAME: Chavo Tom DATE: March 08, 2025 TIME: 12:40 PM CSN: [id number] Normal [facility] ANES PRE-OPon 03-08-2025 ANES PRE-OP HNO ID: [id number] Author: ELLEN DODSON DO Service: Anesthesiology Author Type: Anesthesiologist Type: Anesthesia Preprocedure Evaluation Filed: 03/08/2025 11:11 Note Text: ANESTHESIOLOGY DAY OF SURGERY NOTE : 1980 Procedure Information Date/Time: 03/08/25 1245 Scheduled providers: Maryana Bailey MD; Paige Cortes APRN.CRNA; Ellen Dodson DO Procedure: EGD DIAGNOSTIC Location: [facility] Endoscopy Estimated body mass index is 24.45 kg/m? as calculated from the following: Height as of 02/23/25: 172.7 cm (5' 8"). Weight as of 02/23/25: 72.9 kg (160 lb 12.8 oz). Most recent hematocrit and potassium results: Hematocrit 39.6 01/12/2025 Potassium 4.2 01/12/2025 Relevant Problems ANESTHESIA (+) QUINTON (obstructive sleep apnea) CARDIO (+) Atrial fibrillation (HCC) (+) Left bundle branch block (+) Paroxysmal atrial fibrillation (HCC) (+) Npdaf-Nuwszhaqh-Zbmz e (WPW) syndrome NEURO-PSYCH (+) History of atrial fibrillation PULMONARY (+) QUINTON (obstructive sleep apnea) I - PHYSICAL EVALUATION AIRWAY Patient intubated: No. Tracheostomy tube not present Mallampati: II. TM distance: >3 FB. Neck ROM: full ROM without neurological symptoms. Mouth opening: adequate. Short neck: no. Thick neck: no DENTAL Dental findings: poor dentition. II - ANESTHESIA PLAN ASA Score: 3 Anesthetic Plan: MAC NPO Status: adequate Beta Micaela Monitoring Plan Monitoring plan: standard ASA. Post Procedure Analgesic Plan Postoperative analgesic plan: parenteral or oral opioids. Informed Consent Anesthetic risks, benefits, alternatives, personnel and consent discussed: yes. Patient / Responsible Alliance Party agrees to proceed: yes Patient / Surrogate agrees to blood products: Yes DNR status not reviewed with patient and/or family prior to surgery. Significant changes in the patient condition since the History and Physical, not otherwise documented in primary service progress note: no. Potential Anesthesia issues that may suggest increased risk of complications or contraindication to planned procedure: none. Vitals Value Taken Time BP 108/67 03/08/25 1040 Pulse 43 03/08/25 1040 Resp 18 03/08/25 1040 Temp 36.3 ?C (97.3 ?F) 03/08/25 1040 SpO2 100 % 03/08/25 1040 Outpatient Medications as of 03/08/2025 Medication Sig metoprolol succinate ER (TOPROL XL) 25 mg 24 hr tablet Take 1.5 tablets by mouth once daily. doxycycline (VIBRA-TABS) 100 mg tablet TAKE 1/2 (ONE-HALF) OF A TABLET BY MOUTH TWICE DAILY warfarin (COUMADIN) 5 mg tablet Take 1.5 tablets by mouth once daily. Equally 7.5 mg Daily levonorgestrel (MIRENA) 21 mcg/24hr (up to 8 yrs) 52 mg IUD 1 each by INTRAUTERINE route as directed. cycloSPORINE (RESTASIS) 0.05 % ophthalmic emulsion Use 1 drop in both eyes two times a day. cycloSPORINE-chondro itin sulfate A (KLARITY-C) 0.1-0.25 % ophthalmic drops Use 1 drop in both eyes two times a day. cyanocobalamin (VITAMIN B-12) 1,000 mcg tab Take 1 tablet by mouth once daily. multivitamin tablet Take 1 tablet by mouth once daily. calcium carbonate (TUMS) 500 mg chew Take 1 tablet by mouth three times a day. sotalol (BETAPACE) 120 mg tablet Take 1 tablet by mouth two times a day. cholecalciferol, vitamin D3, (VITAMIN D3 ORAL) Take by mouth. tacrolimus (PROTOPIC) 0.03 % ointment Apply to affected area twice daily. Facility-Administere d Medications as of 03/08/2025 Medication Dose Route Frequency lactated ringers iv infusion 30 mL/hr INTRAVENOUS CONTINUOUS I have interviewed and examined the patient. I have reviewed the medical record and/or the pre-anesthesia evaluation, pertinent labs, and test results. This contains updated information obtained within 48 hours of Surgery/Procedure. SIGNATURE: Ellen Dodson DO PATIENT NAME: Chavo Tom DATE: March 08, 2025 TIME: 11:07 AM CSN: [id number] Normal [facility] EGD Study observation Pavan sabillon 03-08-2025 [facility] Gastrointestinal Endoscopy Patient Name: Chavo Tom Procedure Date: 03/08/2025 11:14 AM Date of : 1980 Admit Type: Outpatient Age: 44 Room: [facility] Gender: Female Note Status: Finalized Attending MD: Maryana Bailey MD, [id number] Procedure: Upper GI endoscopy Indications: Peptic ulcer Providers: Maryana Bailey MD Patient Profile: Refer to note in patient chart for documentation of history and physical. She has had previous. Referring Physician: Esperanza Mercer (Referring MD) Medicines: See the Anesthesia note for documentation of the administered medications Complications: No immediate complications. Requesting Provider: Procedure: Pre-Anesthesia Assessment: - Monitored anesthesia care under the supervision of a PIG MACHINE OPERATOR HELPER was determined to be medically necessary for this procedure based on review of the patient's medical history, medications, and prior anesthesia history. After obtaining informed consent, the endoscope was passed under direct vision. Throughout the procedure, the patient's blood pressure, pulse, and oxygen saturations were monitored continuously. The was introduced through the mouth, and advanced to the operative stoma of duodenum. The upper GI endoscopy was accomplished without difficulty. The patient tolerated the procedure well. Moderate Sedation: MAC anesthesia was administered by the anesthesia team. Total Procedure Duration: 0 hours 5 minutes 23 seconds Findings: Patient is s/p Jenny en Y bariatric surgery. Image is not consistent with this as there is no corresponding image in Provation Anastomosis was widely patent but with marginal ulcer present with hypertrophic erythematous rim which was biopsied with cold grasper forceps. Biopsies were taken with a cold forceps for histology. Verification of patient identification for the specimen was done by the nurse. Estimated blood loss was minimal. Esophagus with no major abnormalities Impression: - MARGINAL ULCER, Normal esophagus. Recommendation: - Discharge patient to home (ambulatory). - Resume previous diet. - Continue present medications. - Await pathology results. - Return to referring provider at the next available appointment. Procedure Code(s): --- Professional --- 16445, Esophagogastroduoden oscopy, flexible, transoral; with biopsy, single or multiple Diagnosis Code(s): --- Professional --- K27.9, Peptic ulcer, site unspecified, unspecified as acute or chronic, without hemorrhage or perforation CPT copyright 2021 [employer]. All rights reserved. The codes documented in this report are preliminary and upon commercial director review may be revised to meet current compliance requirements. Attending Participation: I personally performed the entire procedure. Scope In: 11:32:59 AM Scope Out: 11:38:22 AM MD Maryana Rehman MD 03/08/2025 11:50:13 AM This report has been signed electronically by Maryana Bailey MD Number of Addenda: 0 Note Initiated On: 03/08/2025 11:14 AM Estimated Blood Loss: Estimated blood loss was minimal. PROVATION [facility] Radiology Study observation (narrative) [facility] Pathology biopsy report Carson (Tiss)on 03-08-2025 AP DISCLAIMER [facility] Comment on above: Order Comment: Speci men Type: TISSUE SPECIMEN Ordering Facility: [facility] Address: [address] [place] [address] Result Comment: Ayesha Cain Test (LDT) Disclaimer: Performance characteristics of immunohistochemical, immunofluorescent, and chromogenic in-situ hybridization tests have been determined by the performing laboratory within [facility]'s [facility] Pathology and Laboratory Medicine Department ([facility], [facility], [facility], [facility], [facility], [facility], or [facility]) in a manner consistent with CLIA requirements. One or more of these tests may not have been cleared or approved by the FDA. [facility] is regulated under CLIA as qualified to perform high-complexity testing. These tests are used for clinical purposes. These should not be regarded as investigational or for research. Positive and negative controls stain appropriately. Performed By: #### 6 6121-5 #### [facility] CLIA [id number] [address] [place] [address] [place] CASE REPORT Normal [facility] Comment on above: Order Comment: Noni trivedi Type: TISSUE SPECIMEN Ordering Facility: [facility] Address: [address] [place] [address] Result Comment: Surg [facility] Pathology Report Case: [id number] Authorizing Provider: Maryana Bailey MD Collected: 03/08/2025 11:36 AM Ordering Location: [facility] Received: 03/08/2025 01:57 PM Pathologist: Estevan Kinsey MD Specimen: Stomach, Biopsy, Gastric Bx of Marginal Ulcer Performed By: #### 6 6121-5 #### [facility] CLIA [id number] [address] [place] [address] [place] FINAL DIAGNOSIS Normal [facility] Comment on above: Order Comment: Noni trivedi Type: TISSUE SPECIMEN Ordering Facility: [facility] Address: [address] [place] [address] Result Comment: ARenee Grimaldo tomach, marginal ulcer, biopsy: - Oxyntic mucosa with reactive epithelial changes - No evidence of H. pylori at 1444 EDT Performed By: #### 6 6121-5 #### [facility] CLIA [id number] [address] [place] [address] [place] FINAL PERFORMING LAB [facility] Comment on above: Order Comment: Speci men Type: TISSUE SPECIMEN Ordering Facility: [facility] [place] Address: [address] [place] [address] Result Comment: Diag nostic interpretation performed at: [facility], [address] [place] [address] CLIA# [id number] Candy Polisher: Reuben Adame MD Performed By: #### 6 6121-5 #### [facility] CLIA [id number] [address] [place] [address] OF [place] GROSS DESCRIPTION [facility] Comment on above: Order Comment: Speci men Type: TISSUE SPECIMEN Ordering Facility: [facility] [place] Address: [address] [place] [address] Result Comment: Yovani mcclure, Biopsy Received in formalin are two pieces of reddy-red, soft tissue aggregating to 0.5 x 0.3 x 0.1 cm. Totally submitted in one cassette. Gross examination performed at [facility], [address] [place] [address] March 08, 2025 5:52 PM Performed By: #### 6 6121-5 #### [facility] CLIA [id number] [address] [place] [address] OF DON Upper GI endoscopyon 06-04-2 025 Upper GI endoscopy [facility] Gastrointestinal Endoscopy Patient Name: Chavo Tom Procedure Date: 03/08/2025 11:14 AM Date of : 1980 Admit Type: Outpatient Age: 44 Room: [facility] Gender: Female Note Status: Finalized Attending MD: Maryana Bailey MD, [id number] Procedure: Upper GI endoscopy Indications: Peptic ulcer Providers: Maryana Bailey MD Patient Profile: Refer to note in patient chart for documentation of history and physical. She has had previous. Referring Physician: Esperanza Mercer (Referring MD) Medicines: See the Anesthesia note for documentation of the administered medications Complications: No immediate complications. Requesting Provider: Procedure: Pre-Anesthesia Assessment: - Monitored anesthesia care under the supervision of a PIG MACHINE OPERATOR HELPER was determined to be medically necessary for this procedure based on review of the patient's medical history, medications, and prior anesthesia history. After obtaining informed consent, the endoscope was passed under direct vision. Throughout the procedure, the patient's blood pressure, pulse, and oxygen saturations were monitored continuously. The was introduced through the mouth, and advanced to the operative stoma of duodenum. The upper GI endoscopy was accomplished without difficulty. The patient tolerated the procedure well. Moderate Sedation: MAC anesthesia was administered by the anesthesia team. Total Procedure Duration: 0 hours 5 minutes 23 seconds Findings: Patient is s/p Jenny en Y bariatric surgery. Image is not consistent with this as there is no corresponding image in Provation Anastomosis was widely patent but with marginal ulcer present with hypertrophic erythematous rim which was biopsied with cold grasper forceps. Biopsies were taken with a cold forceps for histology. Verification of patient identification for the specimen was done by the nurse. Estimated blood loss was minimal. Esophagus with no major abnormalities Impression: - MARGINAL ULCER, Normal esophagus. Recommendation: - Discharge patient to home (ambulatory). - Resume previous diet. - Continue present medications. - Await pathology results. - Return to referring provider at the next available appointment. Procedure Code(s): --- Professional --- 19313, Esophagogastroduoden oscopy, flexible, transoral; with biopsy, single or multiple Diagnosis Code(s): --- Professional --- K27.9, Peptic ulcer, site unspecified, unspecified as acute or chronic, without hemorrhage or perforation CPT copyright 2021 [employer]. All rights reserved. The codes documented in this report are preliminary and upon commercial director review may be revised to meet current compliance requirements. Attending Participation: I personally performed the entire procedure. Scope In: 11:32:59 AM Scope Out: 11:38:22 AM MD Maryana Rehman MD 03/08/2025 11:50:13 AM This report has been signed electronically by Maryana Bailey MD Number of Addenda: 0 Note Initiated On: 03/08/2025 11:14 AM Estimated Blood Loss: Estimated blood loss was minimal. Normal [facility] CNPNon 03-03-2025 CNPN Telephone (PHARMN) CHAVO TOM ([id number]) 1980 F Date Time Provider Department 03/03/25 PHARMACIST PHARMN During your visit today, we recorded the following information about you: [place] ([facility] 03/03/2025 9:13 AM Signed PAC received faxed outside lab/home meter result for patient via mdINR from Date: 03/02 . Results have been scanned into patient's chart and are located under 'Scanned Documents'. Please note, may take up to 10 minutes for document to transfer from [facility] to [employer] [facility]. PT INR (no units) Date Value 03/02/2025 1.2 02/18/2025 1.5 01/19/2025 2.1 [place] Paz ([facility]) Milla Douglas [facility] 03/03/2025 3:27 PM Signed [facility] Anticoagulation Episode Summary Anticoagulation Care Providers Provider Role Specialty Phone number Oneyda Recinos MD Referring Cardiology [phone] Chavo Tom is a 44 year old year old female patient being evaluated today for a Telemanagement visit. Patient is currently on the following anticoagulant(s) Warfarin. Labs Lab Results Component Value Date INR 1.2 03/02/2025 INR 1.5 02/18/2025 INR 2.1 01/19/2025 Lab Results Component Value Date HB 12.9 01/12/2025 HB 13.3 07/14/2024 HB 12.0 03/03/2024 Lab Results Component Value Date HCT 39.6 01/12/2025 HCT 40.6 07/14/2024 HCT 36.0 03/03/2024 Lab Results Component Value Date PLT 336 01/12/2025 PLT 383 07/14/2024 PLT 227 03/03/2024 Lab Results Component Value Date CREAT 0.66 01/12/2025 CREAT 0.77 07/14/2024 CREAT 0.69 03/03/2024 No components found for: "TBILI3" Lab Results Component Value Date ALT 17 01/12/2025 ALT 19 07/14/2024 ALT 30 02/29/2024 Lab Results Component Value Date AST 26 01/12/2025 AST 26 07/14/2024 AST 62 (H) 02/29/2024 Estimated Creatinine Clearance: 109.7 mL/min (based on SCr of 0.66 mg/dL). 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 Anticoagulation Episode Summary Current INR goal: 2.0-3.0 Assessment: INR result of 1.2 is SUBtherapeutic due to: unknown cause - did not speak to patient Per 03/02 TE, no warfarin hold for dental procedure Plan: Current Warfarin Dosing As of 03/03/2025 Full warfarin instructions: 10 mg every Mon, Fri; 7.5 mg all other days Left voice message Advised patient to increase total weekly regimen Advised pt to Call Coumadin Clinic at [phone] to confirm dosing and follow-up Will attempt to call again next business day Milla Douglas [facility] Clinical Pharmacist, Pharmacy Anticoagulation Clinic Pharmacy Anticoagulation Clinic Pager: [phone]. [facility] 03/03/2025 3:38 PM Signed Patient called regarding upcoming procedure and dosing instructions. Patient stated she stopped warfarin per paperwork 02/28/2025. Patient has procedure 03/08. Patient transferred to [facility] to discuss further. Bernardo Zamora ([facility]) Milla Douglas logan 03/03/2025 3:51 PM Signed Stp, she has been off of warfarin since 02/28 for upcoming colonoscopy next Thu, prior to 03/02 INR pt was taking 7.5mg daily. Advised pt to take 10mg Wed and Th post colonoscopy and then resume 7.5mg daily. Advised pt to test INR 6/10. Will f/u at that time- pt requests calls after 3:30pm. Earlene Chavez [place] [facility] 03/15/2025 4:05 PM Signed Called and stp re: INR overdue. Pt has been of of warfarin since 02/28 d/t colonoscopy and dental procedure. Pt states he doctor okay'd this. Advised pt to resume warfarin and take 10mg Thu, Sat/ 7.5mg SunMon and test on . Patient verbalized understanding and agrees with the plan. Earlene Chavez Ulyana [facility] 03/22/2025 8:38 AM Signed Patient was due to test INR today. Will continue to monitor for results. Follow up in one week if no results received. Patient's INR Goal range is - 2.0-3.0 PT INR (no units) Date Value 03/02/2025 1.2 02/18/2025 1.5 01/19/2025 2.1 Patient is in titration phase - No Patient has dosing provided until next INR - Yes Patient is on an injectable anticoagulant - No Milla Douglas logan Allergies As of Date: 03/03/2025 Noted Allergy Reaction METFORMIN 01/23/2022 6 - Diarrhea NSAIDS (NON-STEROIDAL ANTI-INFLAM*01/13/20 24 15 - Contraindication-Med ical Chow* Comments: S/p gastric bypass, relative contraindication to NSAIDs Date Reviewed: 02/23/2025 Reviewed by: Latoya Ferrari APRN.[employer] - Fully Assessed Reason for Visit: Anticoagulation [8] Primary Visit Diagnosis:Atrial fibrillation, unspecified type (HCC) [I48.91] Ot (more content not included)... Normal [facility] Guerline 03-02-2025 PANTERA Telephone (PHARMN) CHAVO TOM ([id number]) 1980 F Date Time Provider Department 03/02/25 PHARMACIST PHARMN During your visit today, we recorded the following information about you: [place] ([facility] 03/02/2025 11:48 AM Signed Patient's PCP, Leonie Atkinson CNP, called and advised patient is having 2 teeth extracted and DDS wanted to hold warfarin. She stated she thought she'd reach out to PAC for our input as we manage patient's warfarin. PCP can be reached at [phone] to discuss what she should put on form for DDS. [place] Paz CPhT (Chief Data Officer) Pharmacy Anticoagulation Clinic Bren Hernandez [facility] 03/02/2025 12:26 PM Signed PAC is not able to authorize dental clearance. This must be done by the primary care team. Generally, guidelines recommend that warfarin does not need to be held for simple dental extractions of up to 2 teeth but holding anticoagulation is at the discretion of the patient's physician and the dentist performing the procedure. The summary statement from the [place] [employer] is as follows: There is general agreement that in most cases, treatment regimens with older 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 (e.g., warfarin) and antiplatelet agents (e.g., clopidogrel, ticlopidine, prasugrel, ticagrelor, and/or aspirin) should not be altered before dental procedures. The risks of stopping or reducing these medication regimens (i.e., thromboembolism, stroke, OR) far outweigh the consequences of prolonged bleeding, which can be controlled with local measures." Evidence noted by the ADA includes Based on a literature review, a 2016 Clinical Practice Statement from the [place] [employer] determined that moderately invasive oral surgery (defined as uncomplicated tooth extraction") is safe with an INR of 3.5, with some experts stating that it is safe up to 4.0.17 A 2008 systematic review and meta-analysis by Shanon et al.44 found that although the risks of hemorrhage and thromboembolism are reduced at an INR range of 2 to 3, ratios moderately higher than this range appeared to be safe and more effective than subtherapeutic ratios." Reviewed above with GENIE Hadley. Advised that she can discuss with the patient's dentist and let PAC know if pt needs to hold warfarin or not. Yissel Atkinson APRN.GENIE 03/02/2025 12:26 PM Signed Please let patient know that the Coumadin clinic said that they do not recommend holding warfarin/Coumadin for 2 or less simple extractions. I will send that note to the [facility]. I will send a prescription for amoxicillin 4 tablets all at once 1 hour before her dental extraction. Just as a precaution for her implanted defibrillator. Sent to [facility]. Janelle Oconnell MA 03/02/2025 12:30 PM Signed Left message for patient to return call and speak with a triage nurse Christa Case Beth, LPN 03/02/2025 12:38 PM Signed Patient returned call and went over notes below from Bertha Atkinson DIGITAL PRINTER OPERATOR with understanding. Aware rx sent to the pharmacy. Allergies As of Date: 03/02/2025 Noted Allergy Reaction METFORMIN 01/23/2022 6 - Diarrhea NSAIDS (NON-STEROIDAL ANTI-INFLAM*01/13/20 24 15 - Contraindication-Med ical Chow* Comments: S/p gastric bypass, relative contraindication to NSAIDs Date Reviewed: 02/23/2025 Reviewed by: Latoya Ferrari APRN.REGISTERED DIET TECHNICIAN - Fully Assessed Reason for Visit: Patient Update [1234] Primary Visit Diagnosis:ICD (implantable cardioverter-defibri llator) in place [Z95.810] Order(s):Order #: [id number] Prescriptions as of 03/02/2025 - amoxicillin (AMOXIL) 500 mg capsule Take 4 capsules by mouth one time only for 1 dose. - doxycycline (VIBRA-TABS) 100 mg tablet TAKE 1/2 (ONE-HALF) OF A TABLET BY MOUTH TWICE DAILY - warfarin (COUMADIN) 5 mg tablet Take 1.5 tablets by mouth once daily. Equally 7.5 mg Daily - levonorgestrel (MIRENA) 21 mcg/24hr (up to 8 yrs) 52 mg IUD 1 each by INTRAUTERINE route as directed. - cycloSPORINE (RESTASIS) 0.05 % ophthalmic emulsion Use 1 drop in both eyes two times a day. - cycloSPORINE-chondro itin sulfate A (KLARITY-C) 0.1-0.25 % ophthalmic drops Use 1 drop in both eyes two times a day. - cyanocobalamin (VITAMIN B-12) 1,000 mcg tab Take 1 tablet by mouth once daily. - multivitamin tablet Take 1 tablet by mouth once daily. - calcium carbonate (TUMS) 500 mg chew Take 1 tablet by mouth three times a day. - metoprolol succinate ER (TOPROL XL) 25 mg 24 hr tablet Take 1.5 tablets by mouth once daily. - sotalol (BETAPACE) 120 mg tablet Take 1 tablet by mouth two times a day. - cholecalciferol, vitamin D3, (VITAMIN D3 ORAL) Take by mouth. - tacrolimus (PROTOPIC) 0.03 % ointment Apply to affected area twice daily. Meds Comments as of 05/09/2024: 05/09/24 The medications are managed by this patient by: PATIENT REINA Alvarado Problem List As Of Date (more content not included)... Normal [facility] INRon 03-02-2025 INR Coag (Bld) [Relative time] 1.2 {INR} [facility] [place] HISTORY PHYSICALon HISTORY PHYSICAL HNO ID: [id number] Author: LATOYA FERRARI APRN.GENIE Service: ? Author Type: Nurse Practitioner Type: H&P Filed: 02/23/2025 10:00 Note Text: [facility] HISTORY AND PHYSICAL EXAMINATION SERVICE DATE: 02/23/2025 SERVICE TIME: 9:59 AM PRIMARY CARE PHYSICIAN: Yissel Atkinson APRN.REGISTERED DIET TECHNICIAN Assessment Patient has the following medical conditions which may affect vickie-operative course: ICD (implantable cardioverter-defibri llator) in place Assessment: s/p 2013 ICD placement and replaced 2022 EF 70%, Pt has 59% battery life remaining. Surgery is above umbilicus, NO pacemaker function programming necessary per CIED algorithm 02/07/2025 ICD device check View Cardiac Data and Report - Defibrillator [ID [id number]] Paroxysmal atrial fibrillation (HCC) Assessment: s/p ablation 2013, last known episode 06/2022 Taking metoprolol and sotalol and coumadin, received pre-op instructions to hold 5 days, pt verbalized understanding. Denies any recent palpitations Office Visit on 09/07/2024 Rznlf-Ojqtikzzf-Wpnz e (WPW) syndrome Assessment: s/p ablation 2013 Stable with metoprolol and sotalol HOCM (hypertrophic obstructive cardiomyopathy) (HCC) Assessment: S/P septal myectomy, MVr, papillary muscle reorientation, PVI, and LAAC (11/22/[address] Pastrana) Acute on chronic diastolic (congestive) heart failure (HCC) Assessment: stable EF = 70 ? 5% (2D biplane) Normal left ventricular diastolic function QUINTON (obstructive sleep apnea) Assessment: resolved with gastric bypass S/P gastric bypass Assessment: 02/2023 Pre-diabetes Assessment: resolved with gastric bypass Hemoglobin A1C (%) Date Value 02/29/2024 5.2 01/07/2021 6.0 ANESTHESIA FINDINGS: Intubation History: No history of difficult intubation Significant Anesthesia Considerations: none Airway History: No history of difficult airway Centeno Activity Status Index: METS: Climb a flight of stairs or walk up a hill (5.50 METs) DASI Score: 5.5 Patient denies any chest pain or undue shortness of breath with the above physical activity. Clinical Frailty Scale: 1. Very fit STOP-Bang Score: Denies snoring loudly Denies feeling tired, fatigued, or sleepy during the daytime Has not been observed to stop breathing or choking/gasping during sleep Denies having high blood pressure BMI less than or equal to 35 kg/m2 Patient 50 years old or younger Does not have a large neck STOP-Bang Score: 0 [id number] Score: CHF history: Yes Stroke/TIA/thromboem bolism history: No Diabetes history: No [id number] Score: I - PHYSICAL EVALUATION AIRWAY Patient intubated: No. Tracheostomy tube not present Mallampati: II. TM distance: >3 FB. Neck ROM: full ROM without neurological symptoms. Mouth opening: adequate. Short neck: no. Thick neck: no Morales present: no Lip Bite Test: I Microretrognathia/Mi cronagthia/Recessed Chin: No DENTAL Dental findings: teeth intact. II - ANESTHESIA PLAN Anesthetic Plan: other Beta Micaela Monitoring Plan Post Procedure Analgesic Plan Prepared for Surgery: optimally prepared for surgery, pending [see comment]. CONSULTS: Patient does not require consults for optimization at this time Planned Anesthetic: other anesthesia choice The Following Tests/Procedures Have Been Initiated: No orders of the defined types were placed in this encounter. REASON FOR VISIT: Chavo Tom is a 44 year old female who is scheduled for * No surgery found * at the request of Dr. Maryana Bailey for consultation. My final recommendation will be communicated back to the requesting physician by way of shared medical record or letter. Subjective The patient has the following: COVID-19 Immunization Status Upcoming Covid-19 Vaccine () Postponed until 07/14/2025 07/14/2024 Postponed until 07/14/2025 by Layne Vyas LPN (Declined at this time) 02/06/2022 Postponed until 02/06/2023 by Janelle Oconnell MA (Declined at this time) CHIEF COMPLAINT: Pre-op exam HPI: Chavo Tom is a 44 year old seen for PAC due to scheduled above surgery because h/o marginal ulcer that complicated gastric bypass surgery. REVIEW OF SYSTEMS: General: No weight loss, malaise or fevers. Neurological: No history of TIA's, stroke, [employer] tumor, impaired sensorium, hemiplegia, paraplegia or quadraplegia. No neurological symptoms or problems. Respiratory: No history of current cough or dyspnea, or pneumonia in the past 6 weeks. No history of respiratory/pulmonar y symptoms or problems. Cardiovascular: Positive for: AICD/PPM, anticoagulation therapy (Coumadin), arrhythmia (WPW s/p ablation, following cardiology), atrial fibrillation, CHF, murmur/valvular heart disease, open heart surgery and valve surgery Negative for: abdominal aortic aneurysm, angina, CAD, chest pain, congenital heart defect, DVT/PE, hyperlipidemia, hypertension, re (more content not included)... Normal [facility] Guerline 02-20-2025 CNPN Telephone (PHARMN) CHAVO TOM ([id number]) 1980 F Date Time Provider Department 02/20/25 PHARMACIST PHARMN During your visit today, we recorded the following information about you: [facility] ([facility])[place] 02/20/2025 9:43 AM Signed PAC received faxed outside lab/home meter result for patient via mdINR from Date: 02/18 . Results have been scanned into patient's chart and are located under 'Scanned Documents'. Please note, may take up to 10 minutes for document to transfer from [facility] PT INR (no units) Date Value 02/18/2025 1.5 01/19/2025 2.1 01/04/2025 1.3 [place] Paz ([facility]) Oscar RosaTrino 02/20/2025 3:53 PM Signed [facility] Anticoagulation Episode Summary Anticoagulation Care Providers Provider Role Specialty Phone number Oneyda Recinos MD Referring Cardiology [phone] Chavo Tom is a 44 year old year old female patient being evaluated today for a Telemanagement visit. Patient is currently on the following anticoagulant(s) Warfarin. Labs Lab Results Component Value Date INR 1.5 02/18/2025 INR 2.1 01/19/2025 INR 1.3 01/04/2025 Lab Results Component Value Date HB 12.9 01/12/2025 HB 13.3 07/14/2024 HB 12.0 03/03/2024 Lab Results Component Value Date HCT 39.6 01/12/2025 HCT 40.6 07/14/2024 HCT 36.0 03/03/2024 Lab Results Component Value Date PLT 336 01/12/2025 PLT 383 07/14/2024 PLT 227 03/03/2024 Lab Results Component Value Date CREAT 0.66 01/12/2025 CREAT 0.77 07/14/2024 CREAT 0.69 03/03/2024 No components found for: "TBILI3" Lab Results Component Value Date ALT 17 01/12/2025 ALT 19 07/14/2024 ALT 30 02/29/2024 Lab Results Component Value Date AST 26 01/12/2025 AST 26 07/14/2024 AST 62 (H) 02/29/2024 Estimated Creatinine Clearance: 109.7 mL/min (based on SCr of 0.66 mg/dL). 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 Anticoagulation Episode Summary Current INR goal: 2.0-3.0 Assessment: INR result of 1.5 is SUBtherapeutic due to: unknown cause - did not speak to patient - INR From Thursday Hx unable to reach pt and non-complance to Pharmacy Anticoagulation Clinic Plan: Current Warfarin Dosing As of 02/20/2025 Full warfarin instructions: 02/20: 12.5 mg; Otherwise 7.5 mg every day Left voice message - LVM 12.5mg warfarin today and call Pharmacy Anticoagulation Clinic back Patient advised to call the PAC with any medication changes, bleeding/bruising concerns, recent changes in vitamin k consumption, if any procedures are coming up, if they have been ill or in the hospital, and if they have missed any doses of warfarin. Rosa Moore RPh Clinical Pharmacist, Pharmacy Anticoagulation Clinic Pharmacy [facility]tico[facility] Clinic Pager: [phone]. Milla Douglas RPh 02/21/2025 4:36 PM Signed Called pt and left a vmx regarding dosing below. Advised pt to take 7.5mg daily after one day boost and test INR again next week Milla Douglas, PharmD Milla Douglas RPh 02/28/2025 8:48 AM Signed Patient was due to test INR today. Will continue to monitor for results. Follow up in one week if no results received. Patient's INR Goal range is - 2.0-3.0 PT INR (no units) Date Value 02/18/2025 1.5 01/19/2025 2.1 01/04/2025 1.3 Patient is in titration phase - No Patient has dosing provided until next INR - Yes Patient is on an injectable anticoagulant - No Milla Douglas RPh Allergies As of Date: 02/20/2025 Noted Allergy Reaction METFORMIN 01/23/2022 6 - Diarrhea NSAIDS (NON-STEROIDAL ANTI-INFLAM*01/13/20 24 15 - Contraindication-Med ical Chow* Comments: S/p gastric bypass, relative contraindication to NSAIDs Date Reviewed: 02/08/2025 Reviewed by: Alec Blair APRN.REGISTERED DIET TECHNICIAN - Fully Assessed Reason for Visit: Anticoagulation [8] Primary Visit Diagnosis:Atrial fibrillation, unspecified type (HCC) [I48.91] Other Visit Diagnoses:Paroxysmal atrial fibrillation (HCC) [I48.0] halfway (current) use of 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 [Z79.01] Order(s):INR [0844016] Order #: [id number] Prescriptions as of 03/03/2025 - doxycycline (VIBRA-TABS) 100 mg tablet TAKE 1/2 (ONE-HALF) OF A TABLET BY MOUTH TWICE DAILY - warfarin (COUMADIN) 5 mg tablet Take 1.5 tablets by mouth once daily. Equally 7.5 mg Daily - levonorgestrel (MIRENA) 21 mcg/24hr (up to 8 yrs) 52 mg IUD 1 each by INTRAUTERINE route as directed. - cycloSPORINE (RESTASIS) 0.05 % ophthalmic emulsion Use 1 drop in both eyes two times a day. - cycloSPORINE-chondro itin sulfate A (KLARITY-C) 0.1-0.2 (more content not included)... Normal [facility] INRon 02-18-2025 INR Coag (Bld) [Relative time] 1.5 {INR} [facility] [place] Abdomen/Pelvis W IV Cont ONL Yon 02-08-2025 Abdomen/Pelvis W IV Cont ONLY [facility] Imaging Services [address], [place] [address] Abdomen/Pelvis W IV Cont ONLY MR#: [id number] Acct: [id number] Name: CHAVO TOM Rep #: [id number] : 1980 F 44 From: Jim shaw MD PCP: Yissel Atkinson, [employer] Status: REG ER Study: Abdomen/Pelvis W IV Cont ONLY Date of Exam: Exam# [id number] Ordering Dr: Enriqueta Duffy DO PROCEDURE: ABDOMEN/PELVIS W IV CONT ONLY 02/08/2025 REASON FOR EXAM: Vomiting, GASTRIC BYPASS SX, TECHNIQUE: Abdomen and pelvis CT with intravenous contrast. Coronal and Sagittal reconstruction series were provided. PATIENT PREPARATION: Per protocol ORAL CONTRAST TYPE: None. AMOUNT: mL CONTRAST: Omnipaque 350 VOLUME: 100 mL Not Provided Gauge IV One or more dose reduction techniques were used (e.g., Automated exposure control, adjustment of the mA and/or kV according to patient size, use of iterative reconstruction technique. COMPARISON: None FINDINGS: Lung bases: Left lateral chest wall nerve stimulating device. Status post median sternotomy. Liver: Hepatomegaly, craniocaudal length 20.1 cm. 17 mm low-attenuation right inferior lobe with suggestion of nodular mural enhancement, likely represents a hemangioma. Gallbladder: No ductal dilation. Cholecystectomy. Spleen: Normal size. Pancreas: Normal size without evidence of mass surrounding inflammation or ductal dilation. Adrenals: Unremarkable. Kidneys: Normal renal sizes. No hydronephrosis. Bladder: Urinary bladder is unremarkable. Reproductive Organs: Bilateral adnexal cysts. IUD noted within normal position. Bowel: Status post Jenny-en-Y. Nonspecific wall thickening of the gastric pouch. No bowel dilation or wall thickening. Appendix: The appendix is not identified. There is no inflammatory process identified in the right lower quadrant to suggest appendicitis. Lymph nodes: No suspicious lymph node enlargement. Vasculature: Mild diffuse atherosclerotic calcifications are noted. Peritoneum / Retroperitoneum: No ascites. No pneumoperitoneum. Bones: Unremarkable. Soft tissue: Mild diffuse subcutaneous edema. CT/Abdomen/Pelvis W IV Cont ONLY IMPRESSION: No acute findings in the abdomen and pelvis. Hepatomegaly. 17 mm right inferior hepatic lobe low-attenuation lesion, likely a hemangioma. Recommend further evaluation with MRI of the liver. [facility] CC: MARLEN Atkinson; Dr. Enriqueta Duffy, Web Development Instructor: Signed Normal [facility] Absolute lymphocyte countOrd ered By: Enriqueta Duffy on 02-08-2025 Lymphocytes Auto (Unsp spec) [#/Vol] 2.90 10*3/uL 0.83-4.51 [facility] Absolute neutrophil countOrd ered By: Enriqueta Duffy on 02-08-2025 Neutrophils (Bld) [#/Vol] 4.2 10*3/uL 2.0-7.7 [facility] Anion gap in Serum or Plasma Ordered By: Enriqueta Duffy on 02-08-2025 Anion gap [Moles/Vol] 9 mmol/L 5-15 [facility] Automated lymphocyte count a s percentage of total leukocytesOrdered By: Enriqueta Duffy on 02-08-2025 Lymphocytes/100 WBC Auto (Unsp spec) 36.7 % 19-41 [facility] BUN/creatinine ratioOrdered By: Enriqueta Duffy on 02-08-2025 Urea nitrogen/Creatinine [Mass ratio] 21.7 mg/mg High 10- [facility] Basic Metabolic Profile (BMP )on 02-08-2025 BUN/CRE 21.7 RATIO High 10- [facility] Comment on above: Performed By: #### L 501.2450, L503.6005, L700.6800, L100.0100, L500.2500 #### [facility] [address] [place], [address] Calcium [Mass/Vol] 8.9 mg/dL Normal 7.6-11.0 [facility] Comment on above: Performed By: #### L 501.2450, L503.6005, L700.6800, L100.0100, L500.2500 #### [facility] [address] [place], [address] Chloride [Moles/Vol] 106 mmol/L Normal 98-108 [facility] Comment on above: Performed By: #### L 501.2450, L503.6005, L700.6800, L100.0100, L500.2500 #### [facility] [address] [place], [address] CO2 [Moles/Vol] 24.6 mmol/L Normal 21.0-32.0 [facility] Comment on above: Performed By: #### L 501.2450, L503.6005, L700.6800, L100.0100, L500.2500 #### [facility] [address] [place], [address] Creatinine [Mass/Vol] 0.74 mg/dL Normal 0.70-1.20 [facility] Comment on above: Performed By: #### L 501.2450, L503.6005, L700.6800, L100.0100, L500.2500 #### [facility] [address] [place], [address] ECRCL 97.86 ml/min Normal 50-250 [facility] Comment on above: Performed By: #### L 501.2450, L503.6005, L700.6800, L100.0100, L500.2500 #### [facility] [address] [place], [address] GAP 9 Normal 5-15 [facility] Comment on above: Performed By: #### L 501.2450, L503.6005, L700.6800, L100.0100, L500.2500 #### [facility] [address] [place], [address] GFR/1.73 sq M.predicted among non-blacks MDRD (S/P/Bld) [Vol rate/Area] 102 mL/min/{1.73_m2} Normal >60 [facility] Comment on above: Result Comment: mL/m in/1.73m2 CKD-EPI Creatinine Equation (2020) Performed By: #### L 501.2450, L503.6005, L700.6800, L100.0100, L500.2500 #### [facility] [address] [place], [address] Glucose [Mass/Vol] 99 mg/dL Normal 70-99 [facility] Comment on above: Performed By: #### L 501.2450, L503.6005, L700.6800, L100.0100, L500.2500 #### [facility] [address] [place], [address] Potassium [Moles/Vol] 3.8 mmol/L Normal 3.3-5.1 [facility] Comment on above: Performed By: #### L 501.2450, L503.6005, L700.6800, L100.0100, L500.2500 #### [facility] [address] [place], [address] Sodium [Moles/Vol] 140 mmol/L Normal 133-145 [facility] Comment on above: Performed By: #### L 501.2450, L503.6005, L700.6800, L100.0100, L500.2500 #### [facility] [address] [place], [address] Urea nitrogen [Mass/Vol] 16 mg/dL Normal 4-19 [facility] Comment on above: Performed By: #### L 501.2450, L503.6005, L700.6800, L100.0100, L500.2500 #### [facility] [address] [place], [address] Basophil percentageOrdered B y: Enriqueta Duffy on 02-08-2025 Basophils/100 WBC (Bld) 1.1 % High 0-1 [facility] CBC W/Diff, Automatedon Absolute Lymph 2.90 X10 3/uL Normal 0.83-4.51 [facility] Comment on above: Performed By: #### L 501.2450, L503.6005, L700.6800, L100.0100, L500.2500 #### [facility] [address] [place], [address] Absolute Neut 4.2 X10 3/uL Normal 2.0-7.7 [facility] Comment on above: Performed By: #### L 501.2450, L503.6005, L700.6800, L100.0100, L500.2500 #### [facility] [address] [place], [address] Basophils/100 WBC (Bld) 1.1 % High 0-1 [facility] Comment on above: Performed By: #### L 501.2450, L503.6005, L700.6800, L100.0100, L500.2500 #### [facility] [address] [place], [address] Eosinophils/100 WBC (Bld) 2.8 % Normal 0-5 [facility] Comment on above: Performed By: #### L 501.2450, L503.6005, L700.6800, L100.0100, L500.2500 #### [facility] [address] [place], [address] Erythrocyte distribution width (RBC) [Ratio] 13.3 % Normal 11.6-14.6 [facility] Comment on above: Performed By: #### L 501.2450, L503.6005, L700.6800, L100.0100, L500.2500 #### [facility] [address] [place], [address] Hematocrit (Bld) [Volume fraction] 36.6 % Low 37-47 [facility] Comment on above: Performed By: #### L 501.2450, L503.6005, L700.6800, L100.0100, L500.2500 #### [facility] [address] [place], [address] Hemoglobin (Bld) [Mass/Vol] 12.0 g/dL Normal 12.0-15.0 [facility] Comment on above: Performed By: #### L 501.2450, L503.6005, L700.6800, L100.0100, L500.2500 #### [facility] [address] [place], [address] IG% 0.300 Normal 0.0-0.9 [facility] Comment on above: Result Comment: IG% - Immature Granulocytes (promyelocytes, myelocytes and metamyelocytes) > 1% indicates that a LEFT SHIFT is Present. Performed By: #### L 501.2450, L503.6005, L700.6800, L100.0100, L500.2500 #### [facility] [address] [place], [address] Lymphocytes/100 WBC (Bld) 36.7 % Normal 19-41 [facility] Comment on above: Performed By: #### L 501.2450, L503.6005, L700.6800, L100.0100, L500.2500 #### [facility] [address] [place], [address] MCH (RBC) [Entitic mass] 27.7 pg Normal 27.0-32.0 [facility] Comment on above: Performed By: #### L 501.2450, L503.6005, L700.6800, L100.0100, L500.2500 #### [facility] [address] [place], [address] MCHC (RBC) [Mass/Vol] 32.8 g/dL Normal 32-36 [facility] Comment on above: Performed By: #### L 501.2450, L503.6005, L700.6800, L100.0100, L500.2500 #### [facility] [address] [place], [address] MCV (RBC) [Entitic vol] 84.5 fL Normal 81-99 [facility] Comment on above: Performed By: #### L 501.2450, L503.6005, L700.6800, L100.0100, L500.2500 #### [facility] [address] [place], [address] Monocytes/100 WBC (Bld) 5.8 % Normal 0-10 [facility] Comment on above: Performed By: #### L 501.2450, L503.6005, L700.6800, L100.0100, L500.2500 #### [facility] [address] [place], [address] Neutrophils/100 WBC (Bld) 53.3 % Normal 47-70 [facility] Comment on above: Performed By: #### L 501.2450, L503.6005, L700.6800, L100.0100, L500.2500 #### [facility] [address] [place], [address] Nucleated RBC (Bld) [#/Vol] 0 10*3/uL Normal 0-5 [facility] Comment on above: Performed By: #### L 501.2450, L503.6005, L700.6800, L100.0100, L500.2500 #### [facility] [address] [place], [address] Platelet mean volume (Bld) [Entitic vol] 10.7 fL Normal 6.2-12.0 [facility] Comment on above: Performed By: #### L 501.2450, L503.6005, L700.6800, L100.0100, L500.2500 #### [facility] [address] [place], [address] Platelets (Bld) [#/Vol] 320 10*3/uL Normal 150-450 [facility] Comment on above: Performed By: #### L 501.2450, L503.6005, L700.6800, L100.0100, L500.2500 #### [facility] [address] [place], [address] RBC (Bld) [#/Vol] 4.33 10*6/uL Normal 4.2-5.4 [facility] Comment on above: Performed By: #### L 501.2450, L503.6005, L700.6800, L100.0100, L500.2500 #### [facility] [address] [place], [address] RDW SD 40.9 fl Normal 35.1-43.9 [facility] Comment on above: Performed By: #### L 501.2450, L503.6005, L700.6800, L100.0100, L500.2500 #### [facility] [address] [place], [address] WBC (Bld) [#/Vol] 7.9 10*3/uL Normal 4.4-11.0 [facility] Comment on above: Performed By: #### L 501.2450, L503.6005, L700.6800, L100.0100, L500.2500 #### [facility] [address] [place], [address] CNOVon 02-08-2025 CNOV Office Visit (OBGYWM) CHAVO TOM ([id number]) 1980 F Date Time Provider Department 02/08/25 8:15 AM ALEC BLAIR During your visit today, we recorded the following information about you: Weight 70.3 kg Alec Blair, PRAFUL.REGISTERED DIET TECHNICIAN 02/08/2025 8:07 AM Signed Chavo Colindres Mao is a 44 year old female S/P an IUD insertion 01/11/2025. Since that time, she has had no concerns of abdominal pain, pelvic pain, vaginal discharge, fever or chills. PHYSICAL EXAM: ABDOMEN: soft, non-tender, non-distended SPECULUM EXAM: external genitalia normal, normal Bartholin's glands, urethra, Hoback's glands, no vulvar lesions, no cervical lesions, normal discharge, IUD string is well visualized and of normal length BIMANUAL: no cervical motion tenderness,uterus normal size, shape and consistency,no adnexal masses,non-tender ASSESSMENT / PLAN: 1. Normal IUD check. Pt to f/u as scheduled for screening examinations or sooner prn. I spent a total of 10 minutes on the date of the service which included preparing to see the patient, [id number] patient care, completing clinical documentation, obtaining and/or reviewing separately obtained history, performing a medically appropriate examination, and counseling and educating the patient/family/careg iver. Allergies As of Date: 02/08/2025 Noted Allergy Reaction METFORMIN 01/23/2022 6 - Diarrhea NSAIDS (NON-STEROIDAL ANTI-INFLAM*01/13/20 24 15 - Contraindication-Med ical Chow* Comments: S/p gastric bypass, relative contraindication to NSAIDs Date Reviewed: 02/08/2025 Reviewed by: Alec Blair APRN.REGISTERED DIET TECHNICIAN - Fully Assessed Reason for Visit: IUD [60] Primary Visit Diagnosis:Surveillan ce of previously prescribed intrauterine contraceptive device [Z30.431] Prescriptions as of 02/08/2025 - doxycycline (VIBRA-TABS) 100 mg tablet TAKE 1/2 (ONE-HALF) OF A TABLET BY MOUTH TWICE DAILY - warfarin (COUMADIN) 5 mg tablet Take 1.5 tablets by mouth once daily. Equally 7.5 mg Daily - levonorgestrel (MIRENA) 21 mcg/24hr (up to 8 yrs) 52 mg IUD 1 each by INTRAUTERINE route as directed. - cycloSPORINE (RESTASIS) 0.05 % ophthalmic emulsion Use 1 drop in both eyes two times a day. - cycloSPORINE-chondro itin sulfate A (KLARITY-C) 0.1-0.25 % ophthalmic drops Use 1 drop in both eyes two times a day. - cyanocobalamin (VITAMIN B-12) 1,000 mcg tab Take 1 tablet by mouth once daily. - multivitamin tablet Take 1 tablet by mouth once daily. - calcium carbonate (TUMS) 500 mg chew Take 1 tablet by mouth three times a day. - metoprolol succinate ER (TOPROL XL) 25 mg 24 hr tablet Take 1.5 tablets by mouth once daily. - sotalol (BETAPACE) 120 mg tablet Take 1 tablet by mouth two times a day. - cholecalciferol, vitamin D3, (VITAMIN D3 ORAL) Take by mouth. - tacrolimus (PROTOPIC) 0.03 % ointment Apply to affected area twice daily. Meds Comments as of 05/09/2024: 05/09/24 The medications are managed by this patient by: PATIENT Zohreh Dc, OA Problem List As Of Date 02/08/2025 Noted Resolved SUPERVIS NORMAL 1ST PREG [Z34.00] 03/11/2008 03/27/2009 PLACENTA PREVIA-ANTEPART [O44.00] 07/21/2008 10/16/2008 Impaired glucose tolerance [R73.02] 01/21/2011 Irregular menstrual cycle [N92.6] 11/05/2011 08/04/2012 Vaginal high risk HPV DNA test positive [R87.81*08/04/2012 Palpitation [R00.2] 01/18/2014 Family history of hypertrophic cardiomyopathy [*01/18/2014 09/22/2018 HOCM (hypertrophic obstructive cardiomyopathy) *11/01/2014 Body mass index 40.0-44.9, adult (HCC) [Z68.41] Atrial fibrillation (HCC) [I48.91] Ventricular tachyarrhythmia (HCC) [I47.20] 02/02/2014 Kooxc-Ojfhpjncw-Mfiz 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, cold [E04.1] 04/12/2018 09/24/2023 ICD (implantable cardioverter-defibri llator) in*09/22/2018 Pre-op testing [Z01.818] 11/18/2019 Discharge planning issues [Z75.8] 11/18/2019 Postoperative pain [G89.18] 11/21/2019 11/22/2019 Atelectasis [J98.11] 11/21/2019 11/22/2019 Stress hyperglycemia [R73.9] 11/22/2019 11/22/2019 Obesity, Class II, BMI 35-39.9 [E66.812] 11/22/2019 11/22/2019 Clinical summary [Z78.9] 11/22/2019 Acute on chronic diastolic (congestive) heart f*11/23/2019 Summary [Z48.812] 12/06/2019 Dilated cardiomyopathy (HCC) [I42.0] Left bundle branch block [I44.7] Paroxysmal atrial fibrillation (HCC) [I48.0] 08/27/2020 Class 3 severe obesity due to excess calories w*08/27/2020 Patient under care of multiple providers [Z78.9]02/05/2022 Metabolic syndrome [E88.810] 10/02/2022 Pre-diabetes [R73.03] 10/02/2022 Vitamin D deficiency, unspecified [E55.9] 10/02/2022 QUINTON (obstructive sleep apnea) [G47.33] 11/05/2022 History of atrial fibrillation [Z86.79] 11/19/2022 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.890]07/05/2014 Syncope [R55] 02/21/2014 Obesity, Class II, BMI 35-39.9 [E66.812] 01/29/2023 06/02/2023 S/P gastric bypass [Z98.84] 03/05/2023 (more content not included)... Normal [facility] Carbon dioxide, total [Moles /volume] in Central venous bloodOrdered By: Enriqueta Duffy on 02-08-2025 CO2 [Moles/Vol] 24.6 mmol/L 21.0-32.0 [facility] Chloride assayOrdered By: Mirna Duffy on 02-08-2025 Chloride [Moles/Vol] 106 mmol/L 98-108 [facility] Emergency Department Summary on 02-08-[address] [facility] Medical Records Department [address] [place] [address] Emergency Department Summary 02/08/25 MR#: [id number] Acct: [id number] Name: CHAVO TOM Rep #: [id number] : 1980 44 From: Enriqueta Duffy DO PCP: Yissel Atkinson, [employer] Status:DEP ER Location: ED HPI History of Present Illness Chief Complaint: Nausea/Vomiting Detail of Chief Complaint: Vomiting Informant: patient Narrative Narrative: Patient presents with vomiting that started yesterday. She is thrown up about 12 times in last 24 hours. She complains of concern for a bleeding ulcer as vomitus brown and bzutmf-[id number]-[id number]. She denies black tarry stool. She describes some upper abdominal discomfort. She has history of gastric bypass surgery 2 years ago. She has had a cholecystectomy. Denies recent travel or surgery. Denies sick contacts. Denies fever. She has had no diarrhea. She is on Coumadin for history of A-fib. Denies dysuria urgency or frequency. [facility] Medical History (Updated 02/08/25 @ 22:[address] Enriqueta Duffy, DO) HOCM (hypertrophic obstructive cardiomyopathy) Presence of combination internal cardiac defibrillator (ICD) and pacemaker Atrial flutter Afib Fatigue Borderline diabetes Heart disease Shortness of breath Home Medications ???Medication ???Instructions ???Recorded ???Last Taken ???Type metoprolol tartrate 25 mg tablet 37.5 mg PO BID 02/21/14 12/16/19 H istory sotalol 120 mg tablet 120 mg PO BID 06/12/21 Unknown His tory multivitamin with iron 1 tab PO DAILY 05/03/23 Unknown Hi story warfarin 2.5 mg tablet (Jantoven) 5 mg PO MOWETHSA 05/03/23 Unknown History warfarin 5 mg tablet 2.5 mg PO SUTUFR 05/03/23 Unknown History doxycycline hyclate 100 mg tablet 50 mg PO BID 01/18/24 Unknown His tory lansoprazole 30 mg capsule,delayed 30 mg PO DAILY #14 caps 02/08/25 Unknown Rx release (Prevacid) metoclopramide HCl 10 mg tablet 10 mg PO 4X/DAY PRN Headache #20 0 02/08/25 Unknown Rx tabs Allergy/AdvReac Type Severity Reaction Status Date / Time metformin AdvReac Nausea/Vom/ Verified 02/08/25 18:55 Diarrhea NSAIDS (Non-Steroidal AdvReac Other Verified 02/08/25 18:55 Anti-Inflamma Family History Mother Diabetes Hypertension Father CVA (cerebral vascular accident) Surgical History S/P gastric bypass H/O cardiac radiofrequency ablation Hx of tympanostomy tubes History of heart surgery Social History Smoking Status: Never smoker alcohol intake: never ROS ROS ED Review of Systems ROS Unobtainable: other Constitutional Constitutional ED: Reports lethargy; Denies chills, fever(s), sweats or weight loss Eyes Eyes: Denies blurry vision, change in vision or diplopia ENT ENT ED: Denies rhinorrhea or sore throat Cardiovascular Cardiovascular: Denies chest pain, orthopnea or racing heartbeat Respiratory/Chest Respiratory/Chest: Denies cough, dyspnea, dyspnea on exertion, orthopnea or sputum Gastrointestinal Gastrointestinal: Reports abdominal pain, nausea and vomiting; Denies diarrhea Genitourinary Genitourinary ED: Denies dysuria, hematuria or urinary frequency Musculoskeletal Musculoskeletal: Denies arthralgias, back pain, myalgias or neck pain Integumentary Denies abscess, Abrasions or rash Neurologic Neurologic: Denies headache(s) or weakness Psychiatric Psychiatric: Denies anxiety, depression or suicidal thoughts Endocrine Endocrinology: Denies polydipsia, polyphagia or polyuria Hematologic/Lymphati c Hematologic/Lymphati c: Denies easy bleeding, easy bruising or lymphadenopathy Allergic/Immunologic Allergic/Immunologic ED: Denies mouth swelling, tongue swelling or urticaria EXAM Physical Exam Const Vital Signs: 02/08/25 18:55 02/08/25 21:16 02/08/25 22:02 Temperature 98.2 F 98.2 F Temperature Source Oral Oral Pulse Rate 57 L 75 62 Respiratory Rate 16 14 16 Blood Pressure 101/73 100/70 108/71 Blood Pressure Mean 82 80 83 Pulse Ox 100 100 100 Oxygen Delivery Method Room Air Room Air Room Air Positive well nourished and well developed General Appearance ED: well developed and NAD HEENT Reports TM's clear and moist mucous membranes normocephalic and atraumatic; Negative for trauma or tenderness Tympanic Membrane ED: Yes TM's clear Eyes PERRL and EOMs intact bilaterally General Eye ED: Negative for pale conjunctiva or scleral icterus Neck no lymphadenopathy, supple and no JVD General: Negative for tenderness Chest Wall inspection of chest normal and palpation of chest normal Chest: Negative for tenderness Resp normal respiratory effort and clear to auscultation (more content not included)... Normal [facility] Eosinophil percentageOrdered By: Enriqueta Duffy on 02-08-2025 Eosinophils/100 WBC (Bld) 2.8 % 0-5 [facility] Erythrocyte distribution wid th ratioOrdered By: Enriqueta Duffy on 02-08-2025 Erythrocyte distribution width (RBC) [Ratio] 13.3 % 11.6-14.6 [facility] Erythrocyte distribution wid th standard deviationOrdered By: Enriqueta Duffy on 02-08-2025 Erythrocyte distribution width (RBC) [Ratio] 40.9 fl 35.1-43.9 [facility] Glomerular filtration rate ( GFR) estimation/1.73 sq m using serum, plasma, or whole bOrdered By: Enriqueta Duffy on 02-08-2025 GFR/1.73 sq M.predicted among non-blacks MDRD (S/P/Bld) [Vol rate/Area] 102 mL/min/{1.73_m2} >60 [facility] Comment on above: mL/min/1.73m2 CKD-EP I Creatinine Equation (2020) Hematocrit Auto (Bld) [Volum e fraction]Ordered By: Enriqueta Duffy on 02-08-2025 Hematocrit (Bld) [Volume fraction] 36.6 % Low 37-47 [facility] Hemoglobin measurementOrdere d By: Enriqueta Duffy on 02-08-2025 Hemoglobin (Bld) [Mass/Vol] 12.0 g/dL 12.0-15.0 [facility] Immature granulocytes/100 WB C Auto (Bld)Ordered By: Enriqueta Duffy on 02-08-2025 Immature granulocytes/100 WBC (Bld) 0.300 % 0.0-0.9 [facility] Comment on above: IG% - Immature Granu locytes (promyelocytes, myelocytes and metamyelocytes) > 1% indicates that a LEFT SHIFT is Present. International normalized rat io (INR) calculationOrdered By: Enriqueta Duffy on 02-08-2025 INR Coag (Bld) [Relative time] 2.1 {INR} [facility] Lactic Acidon 02-08-2025 Lactate [Moles/Vol] mmol/L Normal 0.0-2.0 [facility] Comment on above: Order Comment: Y Performed By: #### L [id number], L503.6005, L700.6800, L100.0100, L500.2500 #### [facility] [address] [place], [address] Lactic acid measurementOrder ed By: Enriqueta Duffy on 02-08-2025 Lactate [Moles/Vol] mmol/L 0.0-2.0 [facility] Lipaseon 02-08-2025 Lipase [Catalytic activity/Vol] 61 U/L Normal 13-75 [facility] Comment on above: Result Comment: Sally jama note: LIPASE revised reference range effective 23. New Lipase methodology. Expected to produce lower values than the previous assay method. NEW Reference Range: 13 - 75 U/L Performed By: #### L [id number], L503.6005, L700.6800, L100.0100, L500.2500 #### [facility] [address] [place], [address] Lipase measurementOrdered By : Enriqueta Duffy on 02-08-2025 Lipase [Catalytic activity/Vol] 61 U/L 13-75 [facility] Comment on above: Please note:LIPASE r evised reference range effective 23. New Lipase methodology. Expected to produce lower values than the previous assay method. NEW Reference Range: 13 - 75 U/L MCV (mean corpuscular volume ) determinationOrdered By: Enriqueta Duffy on 02-08-2025 MCV (RBC) [Entitic vol] 84.5 fL 81-99 [facility] Mean corpuscular hemoglobin (MCH) determinationOrdered By: Enriqueta Duffy on 02-08-2025 MCH (RBC) [Entitic mass] 27.7 pg 27.0-32.0 [facility] Mean corpuscular hemoglobin concentration (MCHC) determinationOrdered By: Enriqueta Duffy on 02-08-2025 MCHC (RBC) [Mass/Vol] 32.8 g/dL 32-36 [facility] Mean platelet volume determi nationOrdered By: Enriqueta Duffy on 02-08-2025 Platelet mean volume (Bld) [Entitic vol] 10.7 fL 6.2-12.0 [facility] Monocyte percentageOrdered B y: Enriqueta Duffy on 02-08-2025 Monocytes/100 WBC (Bld) 5.8 % 0-10 [facility] Neutrophil percentageOrdered By: Enriqueta Duffy on 02-08-2025 Neutrophils/100 WBC (Bld) 53.3 % 47-70 [facility] Nucleated red blood cell per centageOrdered By: Enriqueta Duffy on 02-08-2025 Nucleated RBC/100 WBC (Bld) [Ratio] 0 % 0-5 [facility] Platelet countOrdered By: Mirna Duffy on 02-08-2025 Platelets (Bld) [#/Vol] 320 10*3/uL 150-450 [facility] Potassium measurement (mass/ volume)Ordered By: Enriqueta Duffy on 02-08-2025 Potassium (Unsp spec) [Mass/Vol] 3.8 mmol/L 3.3-5.1 [facility] ,Serum,hCG Quali.on 02-08-2025 HCG, SERUM QUAL Negative Normal [facility] Comment on above: Performed By: #### L [id number], [id number], L700.6800, L100.0100, L500.2500 #### [facility] [address] [place], [address] Prothrombin Time w/INRon INR Coag (PPP) [Relative time] 2.1 {INR} Normal [facility] Comment on above: Performed By: #### L 300.3900 ####[facility] [address] [place], [address] PT Coag (PPP) [Time] 24.2 s High 11.7-14.9 [facility] Comment on above: Performed By: #### L 300.3900 ####[facility] [address] [place], [address] Prothrombin timeOrdered By: Enriqueta Duffy on 02-08-2025 PT Coag (PPP) [Time] 24.2 s High 11.7-14.9 [facility] RBC Auto (Bld) [#/Vol]Ordere d By: Enriqueta Duffy on 02-08-2025 RBC (Bld) [#/Vol] 4.33 10*6/uL 4.2-5.4 [facility] Serum beta-hCG test, qualita tiveOrdered By: Enriqueta Clive on 02-08-2025 Beta HCG ( test) Ql Negative [facility] Serum creatinine measurement (mass/volume)Ordered By: Remus Duffy on 02-08-2025 Creatinine [Mass/Vol] 0.74 mg/dL 0.70-1.20 [facility] Serum glucose measurement (m ass/volume)Ordered By: Remus Duffy on 02-08-2025 Glucose [Mass/Vol] 99 mg/dL 70-99 [facility] Serum or plasma calcium eunice urement (mass/volume)Ordered By: Rem Ungpawan on 02-08-2025 Calcium [Mass/Vol] 8.9 mg/dL 7.6-11.0 [facility] Serum or plasma urea nitroge n measurement (mass/volume)Ordered By: Nevinus Duffy on 02-08-2025 Urea nitrogen [Mass/Vol] 16 mg/dL 4-19 [facility] Sodium levelOrdered By: Nevinrichard s Clive on 02-08-2025 Sodium [Moles/Vol] 140 mmol/L 133-145 [facility] White blood cell (WBC) count Ordered By: Enriqueta Clive on 02-08-2025 WBC (Bld) [#/Vol] 7.9 10*3/uL 4.4-11.0 [facility] CNPNon 02-07-2025 CNPN Telephone (PREANME) TYOSCARCHAVO Colindres ([id number]) 1980 F Date Time Provider Department 02/07/25 TIFFANY WALTERS During your visit today, we recorded the following information about you: Tiffany Walters RN 02/07/2025 2:13 PM Signed Dear, Dr. Josue Recinos, your patient, Chavo Tom is scheduled for EGD with Dr. Bailey on 03/08/2025. History of atrial fibrillation and currently on Coumadin (Warfarin). Please advise if Crystal can hold Coumadin 5 days prior to the procedure per anesthesia guidelines? Thank you, Dave Walters PACC RN Allergies As of Date: 02/07/2025 Noted Allergy Reaction METFORMIN 01/23/2022 6 - Diarrhea NSAIDS (NON-STEROIDAL ANTI-INFLAM*01/13/20 24 15 - Contraindication-Med ical Chow* Comments: S/p gastric bypass, relative contraindication to NSAIDs Date Reviewed: 01/12/2025 Reviewed by: Janelle Oconnell MA - Fully Assessed Reason for Visit: Preparations For Surgery [898] Cmt: Preoperative Coumadin instructions Prescriptions as of 02/07/2025 - doxycycline (VIBRA-TABS) 100 mg tablet TAKE 1/2 (ONE-HALF) OF A TABLET BY MOUTH TWICE DAILY - warfarin (COUMADIN) 5 mg tablet Take 1.5 tablets by mouth once daily. Equally 7.5 mg Daily - levonorgestrel (MIRENA) 21 mcg/24hr (up to 8 yrs) 52 mg IUD 1 each by INTRAUTERINE route as directed. - cycloSPORINE (RESTASIS) 0.05 % ophthalmic emulsion Use 1 drop in both eyes two times a day. - cycloSPORINE-chondro itin sulfate A (KLARITY-C) 0.1-0.25 % ophthalmic drops Use 1 drop in both eyes two times a day. - cyanocobalamin (VITAMIN B-12) 1,000 mcg tab Take 1 tablet by mouth once daily. - multivitamin tablet Take 1 tablet by mouth once daily. - calcium carbonate (TUMS) 500 mg chew Take 1 tablet by mouth three times a day. - metoprolol succinate ER (TOPROL XL) 25 mg 24 hr tablet Take 1.5 tablets by mouth once daily. - sotalol (BETAPACE) 120 mg tablet Take 1 tablet by mouth two times a day. - cholecalciferol, vitamin D3, (VITAMIN D3 ORAL) Take by mouth. - tacrolimus (PROTOPIC) 0.03 % ointment Apply to affected area twice daily. Meds Comments as of 05/09/2024: 05/09/24 The medications are managed by this patient by: PATIENT REINA Alvarado Problem List As Of Date 02/07/2025 Noted Resolved SUPERVIS NORMAL 1ST PREG [Z34.00] 03/11/2008 03/27/2009 PLACENTA PREVIA-ANTEPART [O44.00] 07/21/2008 10/16/2008 Impaired glucose tolerance [R73.02] 01/21/2011 Irregular menstrual cycle [N92.6] 11/05/2011 08/04/2012 Vaginal high risk HPV DNA test positive [R87.81*08/04/2012 Palpitation [R00.2] 01/18/2014 Family history of hypertrophic cardiomyopathy [*01/18/2014 09/22/2018 HOCM (hypertrophic obstructive cardiomyopathy) *11/01/2014 Body mass index 40.0-44.9, adult (HCC) [Z68.41] Atrial fibrillation (HCC) [I48.91] Ventricular tachyarrhythmia (HCC) [I47.20] 02/02/2014 Udurs-Qlllaslcr-Krqb 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, cold [E04.1] 04/12/2018 09/24/2023 ICD (implantable cardioverter-defibri llator) in*09/22/2018 Pre-op testing [Z01.818] 11/18/2019 Discharge planning issues [Z75.8] 11/18/2019 Postoperative pain [G89.18] 11/21/2019 11/22/2019 Atelectasis [J98.11] 11/21/2019 11/22/2019 Stress hyperglycemia [R73.9] 11/22/2019 11/22/2019 Obesity, Class II, BMI 35-39.9 [E66.812] 11/22/2019 11/22/2019 Clinical summary [Z78.9] 11/22/2019 Acute on chronic diastolic (congestive) heart f*11/23/2019 Summary [Z48.812] 12/06/2019 Dilated cardiomyopathy (HCC) [I42.0] Left bundle branch block [I44.7] Paroxysmal atrial fibrillation (HCC) [I48.0] 08/27/2020 Class 3 severe obesity due to excess calories w*08/27/2020 Patient under care of multiple providers [Z78.9]02/05/2022 Metabolic syndrome [E88.810] 10/02/2022 Pre-diabetes [R73.03] 10/02/2022 Vitamin D deficiency, unspecified [E55.9] 10/02/2022 QUINTON (obstructive sleep apnea) [G47.33] 11/05/2022 History of atrial fibrillation [Z86.79] 11/19/2022 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.890]07/05/2014 Syncope [R55] 02/21/2014 Obesity, Class II, BMI 35-39.9 [E66.812] 01/29/2023 06/02/2023 S/P gastric bypass [Z98.84] 03/05/2023 halfway (current) use of 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 [Z79.*03/12/2023 Obesity, Class I, BMI 30-34.9 [E66.811] 05/07/2023 Marginal ulcer [K28.9] 02/29/2024 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 Fax will be sent to the patient's scanned documents. PT INR (no units) Date Value 01/19/2025 2.1 01/04/2025 1.3 01/01/2025 1.2 Bozena Calloway RN [facility] Milla Douglas RPh 01/20/2025 3:35 PM Signed [facility] Anticoagulation Episode Summary Anticoagulation Care Providers Provider Role Specialty Phone number Oneyda Recinos MD Referring Cardiology [phone] Chavo Tom is a 44 year old year old female patient being evaluated today for a Telemanagement visit. Patient is currently on the following anticoagulant(s) Warfarin. Labs PT INR (no units) Date Value 01/19/2025 2.1 01/04/2025 1.3 01/01/2025 1.2 Hemoglobin (g/dL) Date Value 01/12/2025 12.9 05/14/2021 14.4 Hematocrit (%) Date Value 01/12/2025 39.6 05/14/2021 44.4 Platelet Count (k/uL) Date Value 01/12/2025 336 05/14/2021 307 Creatinine (mg/dL) Date Value 01/12/2025 0.66 07/14/2024 0.77 03/03/2024 0.69 05/14/2021 0.83 03/19/2021 0.82 01/07/2021 0.65 Bilirubin, Total (mg/dL) Date Value 01/12/2025 0.6 08/27/2020 0.4 ALT (U/L) Date Value 01/12/2025 17 05/14/2021 33 AST (U/L) Date Value 01/12/2025 26 05/14/2021 26 Estimated Creatinine Clearance: 109.7 mL/min (based on SCr of 0.66 mg/dL). 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 Anticoagulation Episode Summary Current INR goal: 2.0-3.0 Assessment: INR result of 2.1 is therapeutic Plan: Current Warfarin Dosing As of 01/20/2025 Full warfarin instructions: 7.5 mg every day Left voice message And sent a Snaptript message Advised patient to continue current weekly dose as noted above Next home INR check scheduled on 01/26 Will call back again Thursday to ensure pt received dosing information. Milla Douglas [facility] Clinical Pharmacist, [facility] Pager: [phone]. Rosa Moore [facility] 01/23/2025 3:51 PM Signed Called and spoke to pt. She confirmed received [facility] msg and has been on 7.5mg daily for last week and a half. Confirmed will check INR . Rosa Oscar [facility] Jumana Moe [facility] 01/26/2025 2:27 PM Signed Patient was due to test INR today. Will continue to monitor for results. Follow up in one week if no results received. Patient's INR Goal range is - 2.0-3.0 PT INR (no units) Date Value 01/19/2025 2.1 01/04/2025 1.3 01/01/2025 1.2 Patient is in titration phase - No Patient has dosing provided until next INR - Yes Patient is on an injectable anticoagulant - No Jumana Moe [facility] Milla Douglas [facility] 02/02/2025 1:36 PM Signed Chavo Jens Tom was called and reminded to test INR today or as soon as possible. Left a vmx. Milla Douglas [facility] Lora Raza [facility] 02/09/2025 10:05 AM Signed Added to discharge list Jackson ([place] 02/09/2025 2:02 PM Signed No return call from patient. Letter sent. FINAL ATTEMPT letter sent at this time. If no response from patient within 4 weeks, patient will be discharged from PAC at that time. Will also route to referring MD as FYI and to see if office can assist in reaching patient. [place] Paz CPhT (Chief Data Officer) Pharmacy [facility]tico[facility] Allergies As of Date: 01/20/2025 Noted Allergy Reaction METFORMIN 01/23/2022 6 - Diarrhea NSAIDS (NON-STEROIDAL ANTI-INFLAM*01/13/20 24 15 - Contraindication-Med ical Chow* Comments: S/p gastric bypass, relative contraindication to NSAIDs Date Reviewed: 01/12/2025 Reviewed by: Janelle Oconnell MA - Fully Assessed Reason for Visit: Anticoagulation [8] Primary Visit Diagnosis:Atrial fibrillation, unspecified type (HCC) [I48.91] Other Visit Diagnoses:Paroxysmal atrial fibrillation (HCC) [I48.0] halfway (current) use of 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 [Z79.01] Order(s):INR [[id number]] Order #: [id number] Prescriptions as of 02/09/2025 - doxycycline (VIBRA-TABS) 100 mg tablet TAKE 1/2 (ONE-HALF) OF A TABLET BY MOUTH TWICE DAILY - warfarin (COUMADIN) 5 mg tablet Take 1.5 tablets by mouth once daily. Equally 7.5 mg Daily - levonorgestrel (MIRENA) 21 mcg/24hr (up to 8 yrs) 52 mg IUD 1 each by INTRAUTERINE route as directed. (more content not included)... Normal [facility] INRon 01-19-2025 INR Coag (Bld) [Relative time] 2.1 {INR} [facility] [place] CBC W Auto Differential pane l (Bld)on 01-12-2025 Basophils (Bld) [#/Vol] 0.09 10*3/uL [facility] Basophils/100 WBC (Bld) 1.2 % [facility] Differential cell count method Nom (Bld) Auto [facility] Eosinophils (Bld) [#/Vol] 0.22 10*3/uL [facility] Eosinophils/100 WBC (Bld) 3 % [facility] Erythrocyte distribution width (RBC) [Ratio] 13.6 % 11.5 - 15.0 % [facility] Hematocrit (Bld) [Volume fraction] 39.6 % 36.0 - 46.0 % [facility] Hemoglobin (Bld) [Mass/Vol] 12.9 g/dL 11.5 - 15.5 g/dL [facility] Immature granulocytes (Bld) [#/Vol] [facility] Immature granulocytes/100 WBC (Bld) 0.3 % [facility] Lymphocytes (Bld) [#/Vol] 2.03 10*3/uL [facility] Lymphocytes/100 WBC (Bld) 27.9 % [facility] MCH (RBC) [Entitic mass] 27.6 pg 26. 0 - 34.0 pg [facility] MCHC (RBC) [Mass/Vol] 32.6 g/dL 30.5 - 36.0 g/dL [facility] MCV (RBC) [Entitic vol] 84.6 fL 80.0 - 100.0 fL [facility] Monocytes (Bld) [#/Vol] 0.43 10*3/uL [facility] Monocytes/100 WBC (Bld) 5.9 % [facility] Neutrophils (Bld) [#/Vol] 4.48 10*3/uL [facility] Neutrophils/100 WBC (Bld) 61.7 % [facility] Nucleated RBC (Bld) [#/Vol] NINF [facility] Nucleated RBC/100 WBC (Bld) [Ratio] 0 % /100 WBC [facility] Platelet mean volume (Bld) [Entitic vol] 10.8 fL 9.0 - 12.7 fL [facility] Platelets (Bld) [#/Vol] 336 10*3/uL [facility] RBC (Bld) [#/Vol] 4.68 10*6/uL 3.90 - 5.2 0 m/uL [facility] WBC (Bld) [#/Vol] 7.27 10*3/uL [facility] Basophils (Bld) [#/Vol] 0.09 10*3/uL Normal <0.11 [facility] Comment on above: Order Comment: Speci men Type: BLOOD SPECIMENOrdering Facility: [facility] Address: [address] [place] [address] Performed By: #### 5 7021-8 ####[facility] LABIA [id number] [place] [address] [place] Basophils/100 WBC (Bld) 1.2 % Normal [facility] Comment on above: Order Comment: Speci men Type: BLOOD SPECIMENOrdering Facility: [facility] [place] Address: [address] [place] [address] Performed By: #### 5 7021-8 ####[facility] LABIA [id number] [place] [address] [place] Differential cell count method Nom (Bld) Auto Normal [facility] Comment on above: Order Comment: Speci men Type: BLOOD SPECIMENOrdering Facility: [facility] [place] Address: [address] [place] [address] Performed By: #### 5 7021-8 ####[facility] LABCLIA [id number] [address], [place] [address] [place] Eosinophils (Bld) [#/Vol] 0.22 10*3/uL Normal <0.46 [facility] Comment on above: Order Comment: Speci men Type: BLOOD SPECIMENOrdering Facility: [facility] [place] Address: [address] [place] [address] Performed By: #### 5 7021-8 ####[facility] LABCLIA [id number] [address], [place] [address] [place] Eosinophils/100 WBC (Bld) 3.0 % Normal [facility] Comment on above: Order Comment: Speci men Type: BLOOD SPECIMENOrdering Facility: [facility] [place] Address: [address] [place] [address] Performed By: #### 5 7021-8 ####[facility] LABCLIA [id number] [address], [place] [address] [place] Erythrocyte distribution width (RBC) [Ratio] 13.6 % Normal 11.5-15.0 [facility] Comment on above: Order Comment: Speci men Type: BLOOD SPECIMENOrdering Facility: [facility] [place] Address: [address] [place] [address] Performed By: #### 5 7021-8 ####[facility] LABCLIA [id number] [place] [address] [place] Hematocrit (Bld) [Volume fraction] 39.6 % Normal 36.0-46.0 [facility] Comment on above: Order Comment: Speci men Type: BLOOD SPECIMENOrdering Facility: [facility] [place] Address: [address] [place] [address] Performed By: #### 5 7021-8 ####[facility] LABCLIA [id number] [address] [place] [address] [place] Hemoglobin (Bld) [Mass/Vol] 12.9 g/dL Normal 11.5-15.5 [facility] Comment on above: Order Comment: Speci men Type: BLOOD SPECIMENOrdering Facility: [facility] [place] Address: [address] [place] [address] Performed By: #### 5 7021-8 ####[facility] LABCLIA [id number] [place] [address] [place] Immature granulocytes (Bld) [#/Vol] 10*3/uL Normal <0.10 [facility] Comment on above: Order Comment: Speci men Type: BLOOD SPECIMENOrdering Facility: [facility] [place] Address: [address] [place] [address] Performed By: #### 5 7021-8 ####[facility] LABCLIA [id number] [place] [address] [place] Immature granulocytes/100 WBC (Bld) 0.3 % Normal [facility] Comment on above: Order Comment: Speci men Type: BLOOD SPECIMENOrdering Facility: [facility] [place] Address: [address] [place] [address] Performed By: #### 5 7021-8 ####[facility] LABCLIA [id number] [place] [address] [place] Lymphocytes (Bld) [#/Vol] 2.03 10*3/uL Normal 1.00-4.00 [facility] Comment on above: Order Comment: Speci men Type: BLOOD SPECIMENOrdering Facility: [facility] [place] Address: [address] [place] [address] Performed By: #### 5 7021-8 ####[facility] LABCLIA [id number] [place] [address] [place] Lymphocytes/100 WBC (Bld) 27.9 % Normal [facility] Comment on above: Order Comment: Speci men Type: BLOOD SPECIMENOrdering Facility: [facility] [place] Address: [address] [place] [address] Performed By: #### 5 7021-8 ####[facility] LABIA [id number] [place] [address] [place] MCH (RBC) [Entitic mass] 27.6 pg Normal 26.0-34.0 [facility] Comment on above: Order Comment: Speci men Type: BLOOD SPECIMENOrdering Facility: [facility] [place] Address: [address] [place] [address] Performed By: #### 5 7021-8 ####[facility] [id number] [place] [address] [place] MCHC (RBC) [Mass/Vol] 32.6 g/dL Normal 30.5-36.0 [facility] Comment on above: Order Comment: Speci men Type: BLOOD SPECIMENOrdering Facility: [facility] [place] Address: [address] [place] [address] Performed By: #### 5 7021-8 ####[facility] [id number] [place] [address] [place] MCV (RBC) [Entitic vol] 84.6 fL Normal 80.0-100.0 [facility] Comment on above: Order Comment: Speci men Type: BLOOD SPECIMENOrdering Facility: [facility] [place] Address: [address] [place] [address] Performed By: #### 5 7021-8 ####[facility] [id number] [place] [address] [place] Monocytes (Bld) [#/Vol] 0.43 10*3/uL Normal <0.87 [facility] Comment on above: Order Comment: Speci men Type: BLOOD SPECIMENOrdering Facility: [facility] [place] Address: [address] [place] [address] Performed By: #### 5 7021-8 ####[facility] LABIA [id number] [address] [place] [address] [place] Monocytes/100 WBC (Bld) 5.9 % Normal [facility] Comment on above: Order Comment: Speci men Type: BLOOD SPECIMENOrdering Facility: [facility] [place] Address: [address] [place] [address] Performed By: #### 5 7021-8 ####[facility] LABCLIA [id number] [place] [address] [place] Neutrophils (Bld) [#/Vol] 4.48 10*3/uL Normal 1.45-7.50 [facility] Comment on above: Order Comment: Speci men Type: BLOOD SPECIMENOrdering Facility: [facility] [place] Address: [address] [place] [address] Performed By: #### 5 7021-8 ####[facility] LABCLIA [id number] [place] [address] [place] Neutrophils/100 WBC (Bld) 61.7 % Normal [facility] Comment on above: Order Comment: Speci men Type: BLOOD SPECIMENOrdering Facility: [facility] [place] Address: [address] [place] [address] Performed By: #### 5 7021-8 ####[facility] LABCLIA [id number] [place] [address] [place] Nucleated RBC (Bld) [#/Vol] 10*3/uL Normal <0.01 [facility] Comment on above: Order Comment: Speci men Type: BLOOD SPECIMENOrdering Facility: [facility] [place] Address: [address] [place] [address] Performed By: #### 5 7021-8 ####[facility] LABCLIA [id number] [place] [id number] [place] Nucleated RBC/100 WBC (Bld) [Ratio] 0.0 /100 WBC Normal [facility] Comment on above: Order Comment: Speci men Type: BLOOD SPECIMENOrdering Facility: [facility] [place] Address: [address] [place] [address] Performed By: #### 5 7021-8 ####[facility] LABIA [id number] [place] [address] [place] Platelet mean volume (Bld) [Entitic vol] 10.8 fL Normal 9.0-12.7 [facility] Comment on above: Order Comment: Speci men Type: BLOOD SPECIMENOrdering Facility: [facility] [place] Address: [address] [place] [address] Performed By: #### 5 7021-8 ####[facility] LABIA [id number] [place] [address] [place] Platelets (Bld) [#/Vol] 336 10*3/uL Normal 150-400 [facility] Comment on above: Order Comment: Speci men Type: BLOOD SPECIMENOrdering Facility: [facility] [place] Address: [address] [place] [address] Performed By: #### 5 7021-8 ####[facility] LABIA [id number] [place] [address] [place] RBC (Bld) [#/Vol] 4.68 10*6/uL Normal 3.90-5.20 [facility] Comment on above: Order Comment: Speci men Type: BLOOD SPECIMENOrdering Facility: [facility] [place] Address: [address] [place] [address] Performed By: #### 5 7021-8 ####[facility] LABIA [id number] [place] [id number] [place] WBC (Bld) [#/Vol] 7.27 10*3/uL Normal 3.70-11.00 [facility] Comment on above: Order Comment: Speci men Type: BLOOD SPECIMENOrdering Facility: [facility] [place] Address: [address] [place] [address] Performed By: #### 5 7021-8 ####[facility] GIFTY [id number] [address] [place] [facility] CNOVon 01-12-2025 CNOV Office Visit (FAMPWS) CHAVO TOM ([id number]) 1980 F Date Time Provider Department 01/12/25 10:00 AM YISSEL ATKINSON FAMPWS During your visit today, we recorded the following information about you: Pulse Blood pressure Weight 76/minute 98/66 69.9 kg Yissel Atkinson APRN.CNP 01/12/2025 10:09 AM Signed This is a 44 year old female who presents today with: Patient presents with: 6 Month Exam HISTORY OF PRESENT ILLNESS: Chavo Tom is a 44 year old female. Patient presents with: 6 Month Exam No health complaints or concerns PAST MEDICAL HISTORY: PAST MEDICAL HISTORY Diagnosis Date Atrial fibrillation (HCC) CHADS score 0 Cardiomyopathy (HCC) 02/24/14 Family history of hypertrophic cardiomyopathy 01/18/2014 Impaired glucose tolerance 01/21/2011 Left bundle branch block Obesity S/P gastric bypass 02/18/2023 Sleep apnea Thyroid nodule, cold 04/12/2018 10/15/2020 US 4mm right nodule: no f/u recommended 12/10/16 US right nodule smaller: Heterogeneous solid nodule mid pole 6 x 4 x 5 mm01/27/14 US:hypoechoic 9 x 5 x 6mm nodule anteriorly at the mid right lobe 03/14/[address] Gama Serratobody: felt nodule smaller, did not recommend KE 02/09/14 NM uptake scan: hypo-functoning thyroid nodule right mid-lobe Ventricular tachyarrhythmia (HCC) 02/2014 Cngpd-Umvzqqfac-Gdyu e (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 Cardioverted with 150j under sedation DEFIBRILLATOR SURGERY 02/24/2014 ICD, redo WPW AND atrial fib ablation EPS: DEFIB. SURGERY 05/16/2021 Exchange of a [employer] SQ-RX 1010 pulse generator with a [employer] E[employer] SURG ANT SGMT PROC UNLISTED Right 05/03/2024 Dr. Parker INSERTION OF IUD 01/11/2025 Mirena IUD REMOVAL 01/11/2025 LAP GASTRIC BYPASS/JENNY-EN-Y 02/18/2023 150cmantecolic jenny, 70cm bp limb LAPAROSCOPIC CHOLECYSTECTOMY 05/20/2023 PAST SURGICAL HISTORY OF 07/06/2014 WPW ablation PAST SURGICAL HISTORY OF 11/21/2019 MVr, myectomy, PVI, LAAC TYMPANOSTOMY LOCAL/TOPICAL ANESTHESIA Right ALLERGIES Metformin and Nsaids (Non-Steroidal Anti-Inflammatory Drug) MEDICATIONS Current Outpatient Medications Medication Sig levonorgestrel (MIRENA) 21 mcg/24hr (up to 8 yrs) 52 mg IUD 1 each by INTRAUTERINE route as directed. cycloSPORINE (RESTASIS) 0.05 % ophthalmic emulsion Use 1 drop in both eyes two times a day. cycloSPORINE-chondro itin sulfate A (KLARITY-C) 0.1-0.25 % ophthalmic drops Use 1 drop in both eyes two times a day. doxycycline (VIBRA-TABS) 100 mg tablet TAKE 1/2 (ONE-HALF) OF A TABLET BY MOUTH TWICE DAILY warfarin (COUMADIN) 5 mg tablet Take 1.5 tablets by mouth once daily. Equally 7.5 mg Daily cyanocobalamin (VITAMIN B-12) 1,000 mcg tab Take 1 tablet by mouth once daily. multivitamin tablet Take 1 tablet by mouth once daily. calcium carbonate (TUMS) 500 mg chew Take 1 tablet by mouth three times a day. metoprolol succinate ER (TOPROL XL) 25 mg 24 hr tablet Take 1.5 tablets by mouth once daily. sotalol (BETAPACE) 120 mg tablet Take 1 tablet by mouth two times a day. cholecalciferol, vitamin D3, (VITAMIN D3 ORAL) Take by mouth. tacrolimus (PROTOPIC) 0.03 % ointment Apply to affected area twice daily. No current facility-administere d medications for this visit. FAMILY HISTORY Problem Relation Age of Onset Lipids Father Diabetes Mother Hypertension Mother Thyroid Mother Coronary Artery Disease Mother CABG 2012 Diabetes Brother Heart Sister HOCM s/p ICD None Maternal Grandfather age 46-"suddenly" Heart Maternal Grandmother OR age 72 Alcohol/Drug Paternal Grandfather ETOH Diabetes Maternal Aunt Diabetes Maternal Uncle Colon Cancer No Family History Anesthesia Problems No Family History Social History Tobacco Use Smoking status: Never Smokeless tobacco: Never Vaping Use Vaping status: Never Used Substance Use Topics Alcohol use: No Drug use: No REVIEW OF SYSTEMS GENERAL: No weight loss, no malaise, no fevers/chills, some night sweats HEENT: Negative for frequent or significant headaches, No changes in hearing or vision. NECK: Negative for lumps, goiter, pain and significant neck swelling RESPIRATORY: Negative for cough, hemoptysis, wheezing, dyspnea or shortness of breath CARDIOVASCULAR: Negative for chest pain, leg swelling, orthopnea, PND or palpitations GI: No nausea, vomiting, or diarrhea/constipatio n. No hematochezia/melena. No heartburn or reflux symptoms. : No history of dysuria, frequency or incontinence MUSCULOSKELETAL: Negative for joint pain or swelling. SKIN: Negative for lesions, rash, and itching ENDOCRINE: Negative for cold or heat intolerance, polyuria, polydipsia and goiter NEURO: No history of headaches, syncope, paralysis, seizures or tremors MOO (more content not included)... Normal [facility] Comprehensive metabolic 2000 panelon 01-12-2025 Albumin [Mass/Vol] 3.9 g/dL Normal 3.9-4.9 [facility] Comment on above: Order Comment: Noni trivedi Type: BLOOD SPECIMENOrdering Facility: [facility] [place] Address: [address] [place] [address] Performed By: #### 2 4323-8 ####[facility] LABCLIA [id number] [place] [address] [place] ALP [Catalytic activity/Vol] 77 U/L Normal 34-123 [facility] Comment on above: Order Comment: Noni trivedi Type: BLOOD SPECIMENOrdering Facility: [facility] [place] Address: [address] [place] [address] Performed By: #### 2 4323-8 ####[facility] LABCLIA [id number] [facility] [address] [place] [address] [place] ALT [Catalytic activity/Vol] 17 U/L Normal 7-38 [facility] Comment on above: Order Comment: Speci men Type: BLOOD SPECIMENOrdering Facility: [facility] [place] Address: [address] [place], [place] [address] Performed By: #### 2 4323-8 ####[facility] LABCLIA [id number] [facility] [address] [place] [address] [place] Anion gap [Moles/Vol] 10 mmol/L Normal 8-15 [facility] Comment on above: Order Comment: Speci men Type: BLOOD SPECIMENOrdering Facility: [facility] [place] Address: [address] [place] [address] Performed By: #### 2 4323-8 ####[facility] LABCLIA [id number] [place] [id number] [place] AST [Catalytic activity/Vol] 26 U/L Normal 13-35 [facility] Comment on above: Order Comment: Speci men Type: BLOOD SPECIMENOrdering Facility: [facility] [place] Address: [address] [place], [place] [address] Performed By: #### 2 4323-8 ####[facility] LABCLIA [id number] [address] [place] [address] [place] Bilirubin [Mass/Vol] 0.6 mg/dL Normal 0.2-1.3 [facility] Comment on above: Order Comment: Speci men Type: BLOOD SPECIMENOrdering Facility: [facility] [place] Address: [address] [place], [place] [address] Performed By: #### 2 4323-8 ####[facility] LABCLIA [id number] [facility] [address] [address] [place] Calcium [Mass/Vol] 9.1 mg/dL Normal 8.5-10.2 [facility] Comment on above: Order Comment: Speci men Type: BLOOD SPECIMENOrdering Facility: [facility] [place] Address: [address] [place] [address] Performed By: #### 2 4323-8 ####[facility] LABCLIA [id number] [place] [id number] [place] Chloride [Moles/Vol] 106 mmol/L Normal 98-107 [facility] Comment on above: Order Comment: Speci men Type: BLOOD SPECIMENOrdering Facility: [facility] [place] Address: [address] [place] [address] Performed By: #### 2 4323-8 ####[facility] LABCLIA [id number] [place] [address] [place] CO2 [Moles/Vol] 23 mmol/L Normal 22-30 [facility] Comment on above: Order Comment: Speci men Type: BLOOD SPECIMENOrdering Facility: [facility] [place] Address: [address] [place] [address] Performed By: #### 2 4323-8 ####[facility] LABCLIA [id number] [place] [address] [place] Creatinine [Mass/Vol] 0.66 mg/dL Normal 0.58-0.96 [facility] Comment on above: Order Comment: Speci men Type: BLOOD SPECIMENOrdering Facility: [facility] [place] Address: [address] [place] [address] Performed By: #### 2 4323-8 ####[facility] LABCLIA [id number] [place] [id number] [place] Creatinine and Glomerular filtration rate.predicted panel (S/P/Bld) 111 mL/min/1.73m??? Normal >=60 [facility] Comment on above: Order Comment: Speci men Type: BLOOD SPECIMENOrdering Facility: [facility] [place] Address: [address] [place] [address] Result Comment: Bety mated Glomerular Filtration Rate (eGFR) is calculated using the 2021 CKD-EPI creatinine equation. This equation utilizes serum creatinine, sex, and age as parameters. The creatinine assay has traceable calibration to isotope dilution-mass spectrometry. Refer to KDIGO guidelines for clinical interpretation. In patients with unstable renal function, e.g. those with acute kidney injury, the eGFR may not accurately reflect actual GFR. Performed By: #### 2 4323-8 ####[facility] LABIA [id number] [address] [address] [place] Glucose [Mass/Vol] 88 mg/dL Normal 74-99 [facility] Comment on above: Order Comment: Noni trivedi Type: BLOOD SPECIMENOrdering Facility: [facility] [place] Address: [address] [place] [address] Result Comment: The [place] [employer] (ADA) provides guidance for cutoff values for fasting glucose and random glucose. The ADA defines fasting as no caloric intake for at least 8 hours. Fasting plasma glucose results between 100 to 125 mg/dL indicate increased risk for diabetes (prediabetes). Fasting plasma glucose results greater than or equal to 126 mg/dL meet the criteria for diagnosis of diabetes. In the absence of unequivocal hyperglycemia, results should be confirmed by repeat testing. In a patient with classic symptoms of hyperglycemia or hyperglycemic crisis, random plasma glucose results greater than or equal to 200 mg/dL meet the criteria for diagnosis of diabetes. Reference: Standards of Medical Care in Diabetes 2016, [place] [employer]. Diabetes Care. 2016.39(Suppl 1). Performed By: #### 2 4323-8 ####[facility] LABIA [id number] [address] [address] [place] Potassium [Moles/Vol] 4.2 mmol/L Normal 3.7-5.1 [facility] Comment on above: Order Comment: Noni trivedi Type: BLOOD SPECIMENOrdering Facility: [facility] [place] Address: [address] [place] [address] Performed By: #### 2 4323-8 ####[facility] LABCLIA [id number] [facility] [address] [address] [place] Protein [Mass/Vol] 6.7 g/dL Normal 6.3-8.0 [facility] Comment on above: Order Comment: Speci men Type: BLOOD SPECIMENOrdering Facility: [facility] [place] Address: [address] [place] [address] Performed By: #### 2 4323-8 ####[facility] LABCLIA [id number] [place] [id number] [place] Sodium [Moles/Vol] 139 mmol/L Normal 136-144 [facility] Comment on above: Order Comment: Speci men Type: BLOOD SPECIMENOrdering Facility: [facility] [place] Address: [address] [place] [address] Performed By: #### 2 4323-8 ####[facility] LABCLIA [id number] [place] [id number] [place] Urea nitrogen [Mass/Vol] 12 mg/dL Normal 7-21 [facility] Comment on above: Order Comment: Speci men Type: BLOOD SPECIMENOrdering Facility: [facility] [place] Address: [address] [place] [address] Performed By: #### 2 4323-8 ####[facility] LABIA [id number] [place] [id number] [place] CNOVon 01-11-2025 CNOV Office Visit (OBGYWM) CHAVO TOM ([id number]) 1980 F Date Time Provider Department 01/11/25 8:15 AM ALEC BLAIR During your visit today, we recorded the following information about you: Blood pressure Weight 110/64 71.2 kg Alec Blair APRN.REGISTERED DIET TECHNICIAN 01/11/2025 8:22 AM Signed Crystal presents for removal of IUD due to expiration of IUD. UNIVERSAL PROTOCOL / SAFETY CHECKLIST Procedure to be Performed: Intrauterine Device Removal Sign In: A Moment of CARE was completed. Appropriate PPE (Personal Protective Equipment) worn by all providers involved with the procedure. Special equipment not required. Patient/Surrogate Stated/Verified: Patient name, Date of , Relevant allergies, and The intended procedure Time Out: Relevant labs, photos, and/or imaging studies are not applicable. Intended patient and procedure match the source document(s) (e.g. consent, HANDP, associated studies [imaging, pathology]) match the intended patient and procedure. Consent obtained and matches the intended procedure. Yes. Correct side/site is not applicable. Medications required for this procedure are not applicable. Fire risk assessed and is not applicable. Implants: are not applicable. Sign Out: Specimens not collected. All instruments, equipment, possible retained foreign bodies are accounted for. Yes. The post-procedure plan of care has been communicated to the patient or surrogate. PROCEDURE: Speculum placed in vagina, IUD string visualized and grasped with ring forceps. ASSESSMENT/PLAN: IUD removed without difficulty, intact, and patient tolerated procedure well. Contraception plans: Mirena IUD Alec Blair APRN.GENIE Chavo presents today for IUD insertion for contraception. Patient's last menstrual period was 01/06/2012 (approximate). GC/chlamydia: Not done: no risk factors and/or patient declines screening test: n/a Side effects including irregular bleeding were discussed with the patient. The patient understands that it should be removed in 8 years or sooner if the patient desires a . IUD source: office provided IUD lot #: [id number] Exp date: 01/2027 UNIVERSAL PROTOCOL / SAFETY CHECKLIST Procedure to be Performed: Mirena Intrauterine Device Insertion The cervix was prepped with betadine. The uterus sounded to 7 cm and the uterus is Anteverted.. Using sterile technique, the Mirena IUD was inserted without difficulty and the string was cut to 3 cm from the external os of the cervix. Patient tolerated procedure well. PLAN: Patient was advised to observe for signs and symptoms of infection including but not limited to fever, malodorous vaginal discharge and/or pain. The patient was told to check the string monthly for accurate placement. Bleeding expectations were reviewed. Follow up in one month. Alec Blair APRN.REGISTERED DIET TECHNICIAN Jeannette ChunMALLIKA 01/11/2025 7:45 AM Signed POST IUD INSTRUCTIONS You may have irregular bleeding during the first 3 months of use. You may have mild-severe cramping for the next 48 hours. You may use over the counter medication (Motrin, Tylenol) as needed. Your IUD must be removed or replaced based on the following table: IUD Type Removed or replaced within: Katya 3 years Kyleena 5 years Mirena 8 years Liletta 8 years Paragard 10 years Call the office for signs/symptoms of infection such as severe cramping, fever, or unusual bleeding. Check for string placement as instructed by your doctor. If you have any additional questions, please contact the office. Referring Provider: ALEC BLAIR [[id number]] Allergies As of Date: 01/11/2025 Noted Allergy Reaction METFORMIN 01/23/2022 6 - Diarrhea NSAIDS (NON-STEROIDAL ANTI-INFLAM*01/13/20 24 15 - Contraindication-Med ical Chow* Comments: S/p gastric bypass, relative contraindication to NSAIDs Date Reviewed: 01/11/2025 Reviewed by: Alec Blair APRN.REGISTERED DIET TECHNICIAN - Fully Assessed Reason for Visit: Insertion Of IUD [291] IUD Removal [1950] Primary Visit Diagnosis:Encounter for IUD removal and reinsertion [Z30.433] Order(s):[] levonorgestrel 21 mcg/24hr (up to 8 yrs) 52 mg 1 each intrauterine device (MIRENA)Disp: Rfl: levonorgestrel (MIRENA) 21 mcg/24hr (up to 8 yrs) 52 mg IUD1 each by INTRAUTERINE route as directed.Disp: 1 eachRfl: 0 UA DIP,URINE HCG (POC) [[id number]] Order #: [id number] Prescriptions as of 01/11/2025 - levonorgestrel (MIRENA) 21 mcg/24hr (up to 8 yrs) 52 mg IUD 1 each by INTRAUTERINE route as directed. - cycloSPORINE (RESTASIS) 0.05 % ophthalmic emulsion Use 1 Drop in both eyes two times a day. - doxycycline (VIBRA-TABS) 100 mg tablet TAKE 1/2 (ONE-HALF) OF A TABLET BY MOUTH TWICE DAILY - warfarin (COUMADIN) 5 mg tablet Take 1.5 tablets by mouth once daily. Equally 7.5 mg Daily - cyanocobalamin (VITAMIN B-12) 1,000 mcg tab Take 1 tablet by mouth on (more content not included)... Normal [facility] UA DIP,URINE HCG (POC)on Beta HCG ( test) Ql (U) Negative Negative [facility] Comment on above: Location:[facility], [address], [place], [address] Pumper Helper (POCT) Internal QC [place] [facility] Location:[facility], [address], [place], [address] [facility] POINT OF CARE [facility] CNPNon 01-04-2025 CNPN Telephone (PHARMN) MAOCHAVO Colindres ([id number]) 1980 F Date Time Provider Department 01/04/25 PHARMACIST PHARMN During your visit today, we recorded the following information about you: [facility] 01/04/2025 5:02 PM Signed PAC received faxed outside lab/home meter result for patient via mdINR from Date: 01/04 . Results have been scanned into patient's chart and are located under 'Scanned Documents'. Please note, may take up to 10 minutes for document to transfer from [facility]. PT INR (no units) Date Value 01/04/2025 1.3 01/01/2025 1.2 12/07/2024 1.2 [place] Paz ([facility]) Milla Douglas RPh 01/05/2025 9:49 AM Signed [facility] Ambulatory Pharm[facility] Anticoagulation Clinic Anticoagulation Episode Summary Anticoagulation Care Providers Provider Role Specialty Phone number Oneyda Recinos MD Referring Cardiology [phone] Chavo Colindres Mao is a 44 year old year old female patient being evaluated today for a Telemanagement visit. Patient is currently on the following anticoagulant(s) Warfarin. Labs PT INR (no units) Date Value 01/04/2025 1.3 01/01/2025 1.2 12/07/2024 1.2 Hemoglobin (g/dL) Date Value 07/14/2024 13.3 05/14/2021 14.4 Hematocrit (%) Date Value 07/14/2024 40.6 05/14/2021 44.4 Platelet Count (k/uL) Date Value 07/14/2024 383 05/14/2021 307 Creatinine (mg/dL) Date Value 07/14/2024 0.77 03/03/2024 0.69 03/02/2024 0.78 05/14/2021 0.83 03/19/2021 0.82 01/07/2021 0.65 Bilirubin, Total (mg/dL) Date Value 07/14/2024 0.3 08/27/2020 0.4 ALT (U/L) Date Value 07/14/2024 19 05/14/2021 33 AST (U/L) Date Value 07/14/2024 26 05/14/2021 26 CrCl cannot be calculated (Unknown ideal weight.). 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 We need to talk to the patient. Brought this up to referring provider's attention in 01/02 note PAC will f/u again tomorrow Milla Douglas [facility] Clinical Pharmacist, Pharmacy Anticoagulation Clinic [facility] Pager: [phone]. Siobhan Calloway RN 01/05/2025 12:42 PM Signed MDinr calling to report the patient's INR result 01/04. Noted result has been addressed below. Bozena Calloway RN Pharmacy [facility]tico[facility] Clinic Lora Raza [facility] 01/06/2025 3:52 PM Signed The patient was called to discuss recent INR test results. A voice message was left on patient's Cell phone voice mail. The patient was advised to call the Coumadin Clinic at [phone] and continue current warfarin dose. PT INR (no units) Date Value 01/04/2025 1.3 01/01/2025 1.2 12/07/2024 1.2 Lora Raza PharmD,Rosa Sloan [facility] 01/09/2025 9:34 AM Signed Called pt and LVM to call Pharmacy Anticoagulation Clinic back. Noted in 01/02 and Pharmacy Anticoagulation Clinic has been unable to reach pt. Rosa Moore PharmD Heart Failure, Heart Transplant, and Anticoagulation Clinical Stem Cleaning Machine Feeder January 09, 2025 Sera ([place])Bernardo 01/09/2025 10:53 AM Signed Patient returned the call and stated she was taking 1 AND 1/2 tablets Mon//Sat and one tablet all other days of the week. Patient did not take 15 mg on 01/05/2025. Advised patient of the difficulty we have in regards to reaching out to her and reminded her that she has MDINR and needs to test weekly. Patient works 7a-3:30 pm and is agreeable if we reach out to her after 3:30pm moving forward. Bernardo Zamora ([place]) Rosa Moore [facility] 01/09/2025 3:13 PM Signed Called pt and LVM to check INR tomorrow and today take typical 7.5mg. Given pt has been taking much lower doses that Pharmacy Anticoagulation Clinic tracker may need to further adjust TWD, but did not today given checking INR tomorrow and last INR 6 days old at this point. Rosa Moore PharmD Heart Failure, Heart Transplant, and Anticoagulation Clinical Stem Cleaning Machine Feeder January 09, 2025 Milla Douglas [facility] 01/10/2025 4:07 PM Signed Called pt and advised to take 7.5mg today (more content not included)... Normal [facility] INRon 01-04-2025 INR Coag (Bld) [Relative time] 1.3 {INR} [facility] CNPNon 01-02-2025 CNPN Telephone (PHARMN) CHAVO TOM ([id number]) 1980 F Date Time Provider Department 01/02/25 PHARMACIST PHARMN During your visit today, we recorded the following information about you: Sera ([facility])Bernardo 01/02/2025 10:03 AM Signed Received fax from [facility] with INR results for patient. Patient tested on 01/01/2025 and the INR result was 1.2. Fax can be found under scanned documents as miscellaneous lab result. It may take a few minutes to transfer from [employer]. PT INR (no units) Date Value 01/01/2025 1.2 12/07/2024 1.2 11/02/2024 1.8 Bernardo Zamora, Chief Data Officer (spray gun striper) Pharmacy Anticoagulation Clinic Daylin Moorehanryley [facility] 01/02/2025 10:40 AM Signed [facility] Ambulatory Pharmacy Anticoagulation Clinic Anticoagulation Episode Summary Anticoagulation Care Providers Provider Role Specialty Phone number Oneyda Recinos MD Referring Cardiology [phone] Chavo Colindres Mao is a 44 year old year old female patient being evaluated today for a Telemanagement visit. Patient is currently on the following anticoagulant(s) Warfarin. Labs PT INR (no units) Date Value 01/01/2025 1.2 12/07/2024 1.2 11/02/2024 1.8 Hemoglobin (g/dL) Date Value 07/14/2024 13.3 05/14/2021 14.4 Hematocrit (%) Date Value 07/14/2024 40.6 05/14/2021 44.4 Platelet Count (k/uL) Date Value 07/14/2024 383 05/14/2021 307 Creatinine (mg/dL) Date Value 07/14/2024 0.77 03/03/2024 0.69 03/02/2024 0.78 05/14/2021 0.83 03/19/2021 0.82 01/07/2021 0.65 Bilirubin, Total (mg/dL) Date Value 07/14/2024 0.3 08/27/2020 0.4 ALT (U/L) Date Value 07/14/2024 19 05/14/2021 33 AST (U/L) Date Value 07/14/2024 26 05/14/2021 26 CrCl cannot be calculated (Unknown ideal weight.). 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 Given INR 1.2 for second time in a row and never able to reach pt last time will place for follow up tomorrow. If unable to reach pt by end of week consider reaching out to referring as unsafe to have warfarin x2 1.2 INR and not able to reach pt to discuss or close INR follow up Patient advised to call the PAC with any medication changes, bleeding/bruising concerns, recent changes in vitamin k consumption, if any procedures are coming up, if they have been ill or in the hospital, and if they have missed any doses of warfarin. Rosa Moore [facility] Clinical Pharmacist, Pharmacy Anticoagulation Clinic Pharmacy Anticoagulation Clinic Pager: [phone]. PovrozMilla sanchez [facility] 01/03/2025 8:59 AM Signed [facility] Ambulatory Pharmacy Anticoagulation Clinic Anticoagulation Episode Summary Anticoagulation Care Providers Provider Role Specialty Phone number Oneyda Recinos MD Referring Cardiology [phone] Chavo Tom is a 44 year old year old female patient being evaluated today for a Telemanagement visit. Patient is currently on the following anticoagulant(s) Warfarin. Labs PT INR (no units) Date Value 01/01/2025 1.2 12/07/2024 1.2 11/02/2024 1.8 Hemoglobin (g/dL) Date Value 07/14/2024 13.3 05/14/2021 14.4 Hematocrit (%) Date Value 07/14/2024 40.6 05/14/2021 44.4 Platelet Count (k/uL) Date Value 07/14/2024 383 05/14/2021 307 Creatinine (mg/dL) Date Value 07/14/2024 0.77 03/03/2024 0.69 03/02/2024 0.78 05/14/2021 0.83 03/19/2021 0.82 01/07/2021 0.65 Bilirubin, Total (mg/dL) Date Value 07/14/2024 0.3 08/27/2020 0.4 ALT (U/L) Date Value 07/14/2024 19 05/14/2021 33 AST (U/L) Date Value 07/14/2024 26 05/14/2021 26 CrCl cannot be calculated (Unknown ideal weight.). ALLERGIES Allergen Reactions Metformin Diarrhea Nsaids (Non-Steroid* Contraindication-Med ical Surgical S/p gastric bypass, relative contraindication to NSAIDs Indication for Warfarin: Atrial fibrillation, unspecified type (hcc) Paroxysmal atrial fibrillation (hcc) halfway (current) use of 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 Anticoagulation Episode Summary Current INR goal: 2.0-3.0 Assessment: INR result of 1.2 is SUBtherapeutic due to: unknown cause - did not (more content not included)... Normal [facility] CNPNon 01-01-2025 CNPN Telephone (CARDHOSP) CHAVO TOM ([id number]) 1980 F Date Time Provider Department 01/01/25 MATT CHAMBERLAIN During your visit today, we recorded the following information about you: Matt Chamberlain MD 01/01/2025 8:24 AM Signed Received after hour call from INR managing service. Patient's home INR was 1.2. Patient was called but phone went to [employer] I left a message asking her to call our office for further guidance. Matt Chamberlain MD Fellow Cardiac Electrophysiology and Pacing Sera ([facility])Bernardo 01/02/2025 9:59 AM Signed Patient is managed by Pharmacy Anticoagulation Clinic. Please see encounter from today. Bernardo Zamora ([facility]) Allergies As of Date: 01/01/2025 Noted Allergy Reaction METFORMIN 01/23/2022 6 - Diarrhea NSAIDS (NON-STEROIDAL ANTI-INFLAM*01/13/20 24 15 - Contraindication-Med ical Chow* Comments: S/p gastric bypass, relative contraindication to NSAIDs Date Reviewed: 09/07/2024 Reviewed by: Zohreh Briones, RN - Fully Assessed Prescriptions as of 01/02/2025 - cycloSPORINE (RESTASIS) 0.05 % ophthalmic emulsion Use 1 Drop in both eyes two times a day. - doxycycline (VIBRA-TABS) 100 mg tablet TAKE 1/2 (ONE-HALF) OF A TABLET BY MOUTH TWICE DAILY - warfarin (COUMADIN) 5 mg tablet Take 1.5 tablets by mouth once daily. Equally 7.5 mg Daily - cyanocobalamin (VITAMIN B-12) 1,000 mcg tab Take 1 tablet by mouth once daily. - multivitamin tablet Take 1 tablet by mouth once daily. - calcium carbonate (TUMS) 500 mg chew Take 1 tablet by mouth three times a day. - metoprolol succinate ER (TOPROL XL) 25 mg 24 hr tablet Take 1.5 tablets by mouth once daily. - sotalol (BETAPACE) 120 mg tablet Take 1 tablet by mouth two times a day. - cholecalciferol, vitamin D3, (VITAMIN D3 ORAL) Take by mouth. - tacrolimus (PROTOPIC) 0.03 % ointment Apply to affected area twice daily. Meds Comments as of 05/09/2024: 05/09/24 The medications are managed by this patient by: PATIENT Zohreh Dc, OA Problem List As Of Date 01/01/2025 Noted Resolved SUPERVIS NORMAL 1ST PREG [Z34.00] 03/11/2008 03/27/2009 PLACENTA PREVIA-ANTEPART [O44.00] 07/21/2008 10/16/2008 Impaired glucose tolerance [R73.02] 01/21/2011 Irregular menstrual cycle [N92.6] 11/05/2011 08/04/2012 Vaginal high risk HPV DNA test positive [R87.81*08/04/2012 Palpitation [R00.2] 01/18/2014 Family history of hypertrophic cardiomyopathy [*01/18/2014 09/22/2018 HOCM (hypertrophic obstructive cardiomyopathy) *11/01/2014 Body mass index 40.0-44.9, adult (HCC) [Z68.41] Atrial fibrillation (HCC) [I48.91] Ventricular tachyarrhythmia (HCC) [I47.20] 02/02/2014 Wiluj-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, cold [E04.1] 04/12/2018 09/24/2023 ICD (implantable cardioverter-defibri llator) in*09/22/2018 Pre-op testing [Z01.818] 11/18/2019 Discharge planning issues [Z75.8] 11/18/2019 Postoperative pain [G89.18] 11/21/2019 11/22/2019 Atelectasis [J98.11] 11/21/2019 11/22/2019 Stress hyperglycemia [R73.9] 11/22/2019 11/22/2019 Obesity, Class II, BMI 35-39.9 [E66.812] 11/22/2019 11/22/2019 Clinical summary [Z78.9] 11/22/2019 Acute on chronic diastolic (congestive) heart f*11/23/2019 Summary [Z48.812] 12/06/2019 Dilated cardiomyopathy (HCC) [I42.0] Left bundle branch block [I44.7] Paroxysmal atrial fibrillation (HCC) [I48.0] 08/27/2020 Class 3 severe obesity due to excess calories w*08/27/2020 Patient under care of multiple providers [Z78.9]02/05/2022 Metabolic syndrome [E88.810] 10/02/2022 Pre-diabetes [R73.03] 10/02/2022 Vitamin D deficiency, unspecified [E55.9] 10/02/2022 QUINTON (obstructive sleep apnea) [G47.33] 11/05/2022 History of atrial fibrillation [Z86.79] 11/19/2022 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.890]07/05/2014 Syncope [R55] 02/21/2014 Obesity, Class II, BMI 35-39.9 [E66.812] 01/29/2023 06/02/2023 S/P gastric bypass [Z98.84] 03/05/2023 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 [Z79.*03/12/2023 Obesity, Class I, BMI 30-34.9 [E66.811] 05/07/2023 Marginal ulcer [K28.9] 02/29/2024 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 Patient tested on 12/07/2024 and the INR result was 1.2. Fax can be found under scanned documents as miscellaneous lab result. It may take a few minutes to transfer from [employer]. PT INR (no units) Date Value 12/07/2024 1.2 11/02/2024 1.8 10/05/2024 1.5 Bernardo Zamora, Chief Data Officer (spray gun striper) Pharmacy Anticoagulation Clinic Garfieldhernan MillaSTUART 12/08/2024 1:41 PM Signed [facility] Pharmacy Anticoagulation Clinic Anticoagulation Episode Summary Anticoagulation Care Providers Provider Role Specialty Phone number Oneyda Recinos MD Referring Cardiology [phone] Chavo Tom is a 44 year old year old female patient being evaluated today for a Telemanagement visit. Patient is currently on the following anticoagulant(s) Warfarin. Labs PT INR (no units) Date Value 12/07/2024 1.2 11/02/2024 1.8 10/05/2024 1.5 Hemoglobin (g/dL) Date Value 07/14/2024 13.3 05/14/2021 14.4 Hematocrit (%) Date Value 07/14/2024 40.6 05/14/2021 44.4 Platelet Count (k/uL) Date Value 07/14/2024 383 05/14/2021 307 Creatinine (mg/dL) Date Value 07/14/2024 0.77 03/03/2024 0.69 03/02/2024 0.78 05/14/2021 0.83 03/19/2021 0.82 01/07/2021 0.65 Bilirubin, Total (mg/dL) Date Value 07/14/2024 0.3 08/27/2020 0.4 ALT (U/L) Date Value 07/14/2024 19 05/14/2021 33 AST (U/L) Date Value 07/14/2024 26 05/14/2021 26 CrCl cannot be calculated (Unknown ideal weight.). 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 Anticoagulation Episode Summary Current INR goal: 2.0-3.0 Assessment: INR result of 1.2is SUBtherapeutic due to: unknown cause - did not speak to patient Plan: Current Warfarin Dosing As of 12/08/2024 Full warfarin instructions: 12/08: 20 mg; Otherwise 10 mg every Mon, Diane; 7.5 mg all other days Left voice message Advised patient to take 20mg x1 today Call Coumadin Clinic at [phone] to discuss further dosing and f/u Milla Douglas RPh Clinical Pharmacist, Pharmacy Anticoagulation Clinic Pharm[facility] Pager: [phone]. Milla Douglas RPh 12/09/2024 4:21 PM Signed Called pt and left another vmx, reminding of yesterday's dose and to continue regular weekly dose now. Advised pt to Call Coumadin Clinic at [phone] to discuss dosing further Earlene Chavez Bethany, RPh 12/12/2024 9:24 AM Signed 3rd attempt to reach pt and left VM to call Pharmacy Anticoagulation Clinic back. Left VM INR due Thursday 12/14. Will move follow up to Thursday as unable to reach pt x3. Rosa Moore PharmD Heart Failure, Heart Transplant, and Anticoagulation Clinical Stem Cleaning Machine Feeder December 12, 2024 Milla Douglas RPh 12/15/2024 1:23 PM Signed Patient was due to test INR today. Will continue to monitor for results. Follow up in one week if no results received. Patient's INR Goal range is - 2.0-3.0 PT INR (no units) Date Value 12/07/2024 1.2 11/02/2024 1.8 10/05/2024 1.5 Patient is in titration phase - No Patient has dosing provided until next INR - Yes Patient is on an injectable anticoagulant - No Trino Chavez Ulyana, RPh 12/22/2024 12:20 PM Signed Chavo Tom was called and reminded to test INR today or as soon as possible. Left a vmx. Milla Douglas [facility] Jennifer Zazueta RPh 12/29/2024 9:31 AM Signed No INR has been received or is in process at this time, will add to discharge list and start the discharge process. Will try to send a mychart mst today though. Jennifer Zazueta [facility] [place] [facility] 12/29/2024 3:01 PM Signed DISCHARGE No return call from patient. message not read, attempted to call patient to remind patient to test INR as soon as possible. Left voice mail. Letter sent. FINAL ATTEMPT letter sent at this time. If no response from patient within 4 weeks, patient will be discharged from PAC at that time. Will also route to referring MD as FYI and to see if office can assist in reaching patient. [place] Paz CPhT (Chief Data Officer) Pharmacy Anticoagulation Clinic Allergies As of Date: 12/08/2024 Noted Allergy Reaction METFORMIN 01/23/2022 6 - Diarrhea NSAIDS (NON-STEROIDAL ANTI-INFLAM*01/13/20 24 15 - Contraindicat (more content not included)... Normal [facility] INRon 12-07-2024 INR Coag (Bld) [Relative time] 1.2 {INR} [facility] CNPNon 11-04-2024 CNPN Telephone (PHARMN) CHAVO TOM ([id number]) 1980 F Date Time Provider Department 11/04/24 PHARMACIST PHARMN During your visit today, we recorded the following information about you: Sera ([place])Bernardo 11/04/2024 4:[address] Recinos, The Pharmacy Anticoagulation Clinic is in need of PAF that requires MD signature to update patient's home INR meter account with MDINR. The PAF can be found under the scanned documents tab in the patient's chart dated today. The PAF may be printed from there and once signed can be faxed back to the Pharmacy Anticoagulation Clinic at [phone]. Please let me know if you have any questions. Thank you, Bernardo Zamora, Chief Data Officer (spray gun striper) Pharmacy Anticoagulation Clinic Sera ([place])Bernardo 11/11/2024 10:[address] Recinos, The Pharmacy Anticoagulation Clinic is in need of PAF that requires MD signature to update patient's home INR meter account with MDINR. The PAF can be found under the scanned documents tab in the patient's chart dated 11/04/2024. The PAF may be printed from there and once signed can be faxed back to the Pharmacy Anticoagulation Clinic at [phone]. Please let me know if you have any questions. Thank you, Bernardo Zamora, Chief Data Officer (spray gun striper) Pharmacy Anticoagulation Clinic Allergies As of Date: 11/04/2024 Noted Allergy Reaction METFORMIN 01/23/2022 6 - Diarrhea NSAIDS (NON-STEROIDAL ANTI-INFLAM*01/13/20 24 15 - Contraindication-Med ical Chow* Comments: S/p gastric bypass, relative contraindication to NSAIDs Date Reviewed: 09/07/2024 Reviewed by: Zohreh Briones RN - Fully Assessed Reason for Visit: Patient Update [1234] Cmt: Updated home INR meter PAF Prescriptions as of 12/09/2024 - doxycycline (VIBRA-TABS) 100 mg tablet TAKE 1/2 (ONE-HALF) OF A TABLET BY MOUTH TWICE DAILY - warfarin (COUMADIN) 5 mg tablet Take 1.5 tablets by mouth once daily. Equally 7.5 mg Daily - cyanocobalamin (VITAMIN B-12) 1,000 mcg tab Take 1 tablet by mouth once daily. - multivitamin tablet Take 1 tablet by mouth once daily. - calcium carbonate (TUMS) 500 mg chew Take 1 tablet by mouth three times a day. - metoprolol succinate ER (TOPROL XL) 25 mg 24 hr tablet Take 1.5 tablets by mouth once daily. - cycloSPORINE (RESTASIS) 0.05 % ophthalmic emulsion Use 1 Drop in both eyes two times a day. - sotalol (BETAPACE) 120 mg tablet Take 1 tablet by mouth two times a day. - cholecalciferol, vitamin D3, (VITAMIN D3 ORAL) Take by mouth. - tacrolimus (PROTOPIC) 0.03 % ointment Apply to affected area twice daily. Meds Comments as of 05/09/2024: 05/09/24 The medications are managed by this patient by: PATIENT Zohreh Dc, OA Problem List As Of Date 11/04/2024 Noted Resolved SUPERVIS NORMAL 1ST PREG [Z34.00] 03/11/2008 03/27/2009 PLACENTA PREVIA-ANTEPART [O44.00] 07/21/2008 10/16/2008 Impaired glucose tolerance [R73.02] 01/21/2011 Irregular menstrual cycle [N92.6] 11/05/2011 08/04/2012 Vaginal high risk HPV DNA test positive [R87.81*08/04/2012 Palpitation [R00.2] 01/18/2014 Family history of hypertrophic cardiomyopathy [*01/18/2014 09/22/2018 HOCM (hypertrophic obstructive cardiomyopathy) *11/01/2014 Body mass index 40.0-44.9, adult (HCC) [Z68.41] Atrial fibrillation (HCC) [I48.91] Ventricular tachyarrhythmia (HCC) [I47.20] 02/02/2014 Nhxqa-Vywwtkssb-Jlsf 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, cold [E04.1] 04/12/2018 09/24/2023 ICD (implantable cardioverter-defibri llator) in*09/22/2018 Pre-op testing [Z01.818] 11/18/2019 Discharge planning issues [Z75.8] 11/18/2019 Postoperative pain [G89.18] 11/21/2019 11/22/2019 Atelectasis [J98.11] 11/21/2019 11/22/2019 Stress hyperglycemia [R73.9] 11/22/2019 11/22/2019 Obesity, Class II, BMI 35-39.9 [E66.812] 11/22/2019 11/22/2019 Clinical summary [Z78.9] 11/22/2019 Acute on chronic diastolic (congestive) heart f*11/23/2019 Summary [Z48.812] 12/06/2019 Dilated cardiomyopathy (HCC) [I42.0] Left bundle branch block [I44.7] Paroxysmal atrial fibrillation (HCC) [I48.0] 08/27/2020 Class 3 severe obesity due to excess calories w*08/27/2020 Patient under care of multiple providers [Z78.9]02/05/2022 Metabolic syndrome [E88.810] 10/02/2022 Pre-diabetes [R73.03] 10/02/2022 Vitamin D deficiency, unspecified [E55.9] 10/02/2022 QUINTON (obstructive sleep apnea) [G47.33] 11/05/2022 History of atrial fibrillation [Z86.79] 11/19/2022 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.890]07/05/2014 Syncope [R55] 02/21/2014 Obesity, Class II, BMI 35-39.9 [E66.812] 01/29/2023 06/02/2023 S/P gastric bypass [Z98.84] 03/05/2023 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 [Z79.*03/12/2023 Obesity, Class I, BMI 30-34.9 [E66.811] 05/07/2023 Marginal ulcer [K28.9] 02/29/2024 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 Normal [facility] CNPCarmen 11-03-2024 CNPN Telephone (PHARMN) CHAVO TOM ([id number]) 1980 F Date Time Provider Department 11/03/24 PHARMACIST PHARMN During your visit today, we recorded the following information about you: [place] ([place] 11/03/2024 10:53 AM Signed PAC received faxed outside lab/home meter result for patient via mdINR from Date: 11/02 . Results have been scanned into patient's chart and are located under 'Scanned Documents'. Please note, may take up to 10 minutes for document to transfer [facility] PT INR (no units) Date Value 11/02/2024 1.8 10/05/2024 1.5 09/14/2024 1.2 [place] Paz ([place]) Milla Douglas STUART 11/03/2024 1:35 PM Signed [facility] Pharmacy Anticoagulation Clinic Anticoagulation Episode Summary Anticoagulation Care Providers Provider Role Specialty Phone number Oneyda Recinos MD Referring Cardiology [phone] Chavo Tom is a 44 year old year old female patient being evaluated today for a Telemanagement visit. Patient is currently on the following anticoagulant(s) Warfarin. Labs PT INR (no units) Date Value 11/02/2024 1.8 10/05/2024 1.5 09/14/2024 1.2 Hemoglobin (g/dL) Date Value 07/14/2024 13.3 05/14/2021 14.4 Hematocrit (%) Date Value 07/14/2024 40.6 05/14/2021 44.4 Platelet Count (k/uL) Date Value 07/14/2024 383 05/14/2021 307 Creatinine (mg/dL) Date Value 07/14/2024 0.77 03/03/2024 0.69 03/02/2024 0.78 05/14/2021 0.83 03/19/2021 0.82 01/07/2021 0.65 Bilirubin, Total (mg/dL) Date Value 07/14/2024 0.3 08/27/2020 0.4 ALT (U/L) Date Value 07/14/2024 19 05/14/2021 33 AST (U/L) Date Value 07/14/2024 26 05/14/2021 26 Estimated Creatinine Clearance: 94.1 mL/min (based on SCr of 0.77 mg/dL). ALLERGIES Allergen Reactions Metformin Diarrhea Nsaids (Non-Steroid* Contraindication-Med ical Surgical S/p gastric bypass, relative contraindication to NSAIDs Indication for Warfarin: Atrial fibrillation, unspecified type (hcc) Paroxysmal atrial fibrillation (hcc) halfway (current) use of 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 Anticoagulation Episode Summary Current INR goal: 2.0-3.0 Assessment: INR result of 1.8 is SUBtherapeutic due to: unknown cause - did not speak to patient Plan: Current Warfarin Dosing As of 11/03/2024 Full warfarin instructions: 11/03: 12.5 mg; Otherwise 10 mg every Mon, Diane; 7.5 mg all other days Left voice message Advised patient to increase dose for 1 day only then resume weekly regimen Next home INR check scheduled on 11/17/2024 Advised pt to Call Coumadin Clinic at [phone] to confirm dosing and schedule follow-up Patient advised to call the PAC with any medication changes, bleeding/bruising concerns, recent changes in vitamin k consumption, if any procedures are coming up, if they have been ill or in the hospital, and if they have missed any doses of warfarin. Milla Douglas [facility] Clinical Pharmacist, Pharmacy Anticoagulation Clinic Pharmacy Anticoagulation Clinic Pager: [phone]. Milla Douglas RPh 11/17/2024 3:07 PM Signed Patient was due to test INR today. Will continue to monitor for results. Follow up in one week if no results received. Patient's INR Goal range is - 2.0-3.0 PT INR (no units) Date Value 11/02/2024 1.8 10/05/2024 1.5 09/14/2024 1.2 Patient is in titration phase - No Patient has dosing provided until next INR - Yes Patient is on an injectable anticoagulant - No Milla Douglas [facility] Milla Douglas [facility] 12/01/2024 2:59 PM Signed Chavo Jens Tom was sent [employer] message and reminded to test INR today or as soon as possible. Trino Chavez Malihe, RPh 12/07/2024 4:30 PM Signed No INR has been received or is in process at this time, will add to discharge list and start the discharge process at this time. Cassidy Alicia RPh Allergies As of Date: 11/03/2024 Noted Allergy Reaction METFORMIN 01/23/2022 6 - Diarrhea NSAIDS (NON-STEROIDAL ANTI-INFLAM*01/13/20 24 15 - Contraindication-Med ical Chow* Comments: S/p gastric bypass, relative contraindication to NSAIDs Date Reviewed: 09/07/2024 Reviewed by: Zohreh Briones RN - Fully Assessed Reason for Visit: Anticoagulation [8] Primary Visit Diagnosis:Atrial fibrillation, unspecified type (HCC) [I48.91] Other Visit Diagnoses:Paroxysmal atrial fibrillation (HCC) [I48.0] 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 [Z79.01] Order(s):INR [[id number]] Order #: [id number] Prescriptions as of 12/07/2024 - doxycycline (VIBRA-TABS) 100 mg tablet TAKE 1/2 (ONE-HALF) OF A TABLET BY MOUTH TWICE DAILY - warfarin (COUMADIN) 5 mg tablet Take 1.5 tablets by mouth once daily. Equally 7.5 mg Daily - cyanocobalamin (VITAMIN B-12) 1,000 mcg tab Take 1 tablet by mouth once daily. - multivitamin tablet Take 1 tablet by mouth once daily. - calciu (more content not included)... Normal [facility] SCREENING W TOMOon 11-03 WERO SCREENING W HAYLEE * * *Final Report* * * DATE OF EXAM: Nov 03 2024 7:29AM [facility] 0582 - WERO SCREENING W HAYLEE / PROCEDURE REASON: Encounter for screening mammogram for breast cancer * * * * Physician Interpretation * * * * RESULT: [place] [address] #[id number] - [facility] SCREENING W HAYLEE HISTORY: 44 year-old patient seen for screening and is asymptomatic in both breasts. Patient states no personal history of breast cancer. Patient states no personal history of other cancers. COMPARISON STUDIES: The present examination has been compared to prior imaging studies dated 10/23/2020 (mammogram), 09/04/2022 (mammogram) and 11/11/2023 (mammogram). MAMMOGRAM TECHNIQUE: The study was acquired using full field digital technology and interpreted from soft copy. Digital Breast Tomosynthesis (DBT) images were obtained and used to assist in the interpretation of this examination. MAMMOGRAM FINDINGS: There are scattered areas of fibroglandular density. No suspicious masses, calcifications or other abnormalities are seen in either breast. There are no significant interval changes. IMPRESSION: There is no mammographic evidence of malignancy in either breast. Routine screening mammogram is recommended. Annual mammogram will be due in 1 year. BI-RADS Category 1: Negative RISK: Based on the Tyrer-Cuzick (TC) risk assessment model, this patient has a 7.6% lifetime risk of developing breast cancer, meaning they are at average risk for developing breast cancer. However, this is only an estimate based on available history provided on the patient's questionnaire. We encourage all patients to talk with their providers about these results, further recommendations for managing breast health, and appropriate supplemental screening options if the patient has dense breast tissue. Interpreting Radiologist: Burak Travis M.D. Resident/Fellow: Ju Saunders D.O. Electronically signed on: 11/04/2024 Web Development Instructor: LARA Transcribe Date/Time: Nov 03 2024 7:20A Dictated by: JU SAUNDERS, DO This examination was interpreted and the report reviewed and electronically signed by: BURAK TRAVIS MD on Nov 04 2024 8:58AM EST [id number] Normal [facility] INRon 11-02-2024 INR Coag (Bld) [Relative time] 1.8 {INR} [facility] CNPNon 10-13-2024 CNPN Telephone (PHARBW) CHAVO TOM ([id number]) 1980 F Date Time Provider Department 10/13/24 MILLA DOUGLAS During your visit today, we recorded the following information about you: Milla Douglas RPh 10/13/2024 8:02 AM Signed Chavo Moody [id number] was originally referred to the Pharmacy Anticoagulation Clinic by Dr. Ortiz who is less involved in the patient?s care. It appears that you are the [facility] provider who is most involved in the patient's care. Would you agree to serve as referring provider for our ongoing anticoagulation follow up? Please place a new referral to [facility] if you are agreeable (order #[id number]). Diagnosis:Atrial Fibrillation INR Range: 2 to 3 Duration: Indefinite Please feel free to contact me with any questions or concerns. Thank you, Milla Douglas, [facility] Siobhan Calloway RN 10/24/2024 9:37 AM Signed PAC received an updated referral for the patient. PT INR (no units) Date Value 10/05/2024 1.5 09/14/2024 1.2 07/28/2024 2.1 Updated anticoag navigator. Bozena Calloway RN Pharmacy Anticoagulation Clinic Allergies As of Date: 10/13/2024 Noted Allergy Reaction METFORMIN 01/23/2022 6 - Diarrhea NSAIDS (NON-STEROIDAL ANTI-INFLAM*01/13/20 24 15 - Contraindication-Med ical Chow* Comments: S/p gastric bypass, relative contraindication to NSAIDs Date Reviewed: 09/07/2024 Reviewed by: Zohreh Briones RN - Fully Assessed Reason for Visit: Referral Update [Other] Primary Visit Diagnosis:Atrial fibrillation, unspecified type (HCC) [I48.91] Other Visit Diagnoses:Paroxysmal atrial fibrillation (HCC) [I48.0] halfway (current) use of 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 [Z79.01] Prescriptions as of 10/25/2024 - warfarin (COUMADIN) 5 mg tablet Take 1.5 tablets by mouth once daily. Equally 7.5 mg Daily - cyanocobalamin (VITAMIN B-12) 1,000 mcg tab Take 1 tablet by mouth once daily. - multivitamin tablet Take 1 tablet by mouth once daily. - calcium carbonate (TUMS) 500 mg chew Take 1 tablet by mouth three times a day. - metoprolol succinate ER (TOPROL XL) 25 mg 24 hr tablet Take 1.5 tablets by mouth once daily. - doxycycline (VIBRA-TABS) 100 mg tablet TAKE 1/2 (ONE-HALF) OF A TABLET BY MOUTH TWICE DAILY - cycloSPORINE (RESTASIS) 0.05 % ophthalmic emulsion Use 1 Drop in both eyes two times a day. - sotalol (BETAPACE) 120 mg tablet Take 1 tablet by mouth two times a day. - cholecalciferol, vitamin D3, (VITAMIN D3 ORAL) Take by mouth. - tacrolimus (PROTOPIC) 0.03 % ointment Apply to affected area twice daily. Meds Comments as of 05/09/2024: 05/09/24 The medications are managed by this patient by: PATIENT Zohreh Dc, OA Problem List As Of Date 10/13/2024 Noted Resolved SUPERVIS NORMAL 1ST PREG [Z34.00] 03/11/2008 03/27/2009 PLACENTA PREVIA-ANTEPART [O44.00] 07/21/2008 10/16/2008 Impaired glucose tolerance [R73.02] 01/21/2011 Irregular menstrual cycle [N92.6] 11/05/2011 08/04/2012 Vaginal high risk HPV DNA test positive [R87.81*08/04/2012 Palpitation [R00.2] 01/18/2014 Family history of hypertrophic cardiomyopathy [*01/18/2014 09/22/2018 HOCM (hypertrophic obstructive cardiomyopathy) *11/01/2014 Body mass index 40.0-44.9, adult (HCC) [Z68.41] Atrial fibrillation (HCC) [I48.91] Ventricular tachyarrhythmia (HCC) [I47.20] 02/02/2014 Vfibe-Vcyxyffir-Jfrn 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, cold [E04.1] 04/12/2018 09/24/2023 ICD (implantable cardioverter-defibri llator) in*09/22/2018 Pre-op testing [Z01.818] 11/18/2019 Discharge planning issues [Z75.8] 11/18/2019 Postoperative pain [G89.18] 11/21/2019 11/22/2019 Atelectasis [J98.11] 11/21/2019 11/22/2019 Stress hyperglycemia [R73.9] 11/22/2019 11/22/2019 Obesity, Class II, BMI 35-39.9 [E66.812] 11/22/2019 11/22/2019 Clinical summary [Z78.9] 11/22/2019 Acute on chronic diastolic (congestive) heart f*11/23/2019 Summary [Z48.812] 12/06/2019 Dilated cardiomyopathy (HCC) [I42.0] Left bundle branch block [I44.7] Paroxysmal atrial fibrillation (HCC) [I48.0] 08/27/2020 Class 3 severe obesity due to excess calories w*08/27/2020 Patient under care of multiple providers [Z78.9]02/05/2022 Metabolic syndrome [E88.810] 10/02/2022 Pre-diabetes [R73.03] 10/02/2022 Vitamin D deficiency, unspecified [E55.9] 10/02/2022 QUINTON (obstructive sleep apnea) [G47.33] 11/05/2022 History of atrial fibrillation [Z86.79] 11/19/2022 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.890]07/05/2014 Syncope [R55] 02/21/2014 Obesity, Class II, BMI 35-39.9 [E66.812] 01/29/2023 06/02/2023 S/P gastric bypass [Z98.84] 03/05/2023 halfway (current) use of 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 [Z79.*03/12/2023 Obesity, Class I, BMI 30-34.9 [E66.811] 05/07/2023 Marginal ulcer [K28.9] 02/29/2024 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 [facility] Tele[facility] (PHARBW) CHAVO TOM ([id number]) 1980 F Date Time Provider Department 09/14/24 MILLA DOUGLAS PHAANANT During your visit today, we recorded the following information about you: Milla Douglas RPh 09/14/2024 9:01 AM Signed Paged by MD MARTINEZ 09/14 at 7am. Pt's INR was 1.2 at 6:02am today. Sera ([place])Bernardo 09/14/2024 9:19 AM Signed Received fax from [facility] with INR results for patient. Patient tested on 09/14/2024 and the INR result was 1.2. Fax can be found under scanned documents as miscellaneous lab result. It may take a few minutes to transfer from [employer]. PT INR (no units) Date Value 09/14/2024 1.2 07/28/2024 2.1 07/20/2024 2.7 Patient removed from discharge list. Bernardo Zamora, Chief Data Officer (spray gun striper) Pharmacy Anticoagulation Clinic Milla Douglas RPh 09/14/2024 2:17 PM Signed [facility]ticoagulation [facility] Anticoagulation Episode Summary Anticoagulation Care Providers Provider Role Specialty Phone number Jayjay Ortiz MD Referring Cardiology [phone] Chavo Tom is a 44 year old year old female patient being evaluated today for a Telemanagement visit. Patient is currently on the following anticoagulant(s) Warfarin. Labs PT INR (no units) Date Value 09/14/2024 1.2 07/28/2024 2.1 07/20/2024 2.7 Hemoglobin (g/dL) Date Value 07/14/2024 13.3 05/14/2021 14.4 Hematocrit (%) Date Value 07/14/2024 40.6 05/14/2021 44.4 Platelet Count (k/uL) Date Value 07/14/2024 383 05/14/2021 307 Creatinine (mg/dL) Date Value 07/14/2024 0.77 03/03/2024 0.69 03/02/2024 0.78 05/14/2021 0.83 03/19/2021 0.82 01/07/2021 0.65 Bilirubin, Total (mg/dL) Date Value 07/14/2024 0.3 08/27/2020 0.4 ALT (U/L) Date Value 07/14/2024 19 05/14/2021 33 AST (U/L) Date Value 07/14/2024 26 05/14/2021 26 Estimated Creatinine Clearance: 94.1 mL/min (based on SCr of 0.77 mg/dL). ALLERGIES Allergen Reactions Metformin Diarrhea Nsaids (Non-Steroid* Contraindication-Med ical Surgical S/p gastric bypass, relative contraindication to NSAIDs Indication for Warfarin: Atrial fibrillation, unspecified type (hcc) Paroxysmal atrial fibrillation (hcc) halfway (current) use of 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 Anticoagulation Episode Summary Current INR goal: 2.0-3.0 Assessment: INR result of 1.2 is SUBtherapeutic due to: unknown cause - did not speak to patient Plan: Current Warfarin Dosing As of 09/14/2024 Full warfarin instructions: 09/14: 10 mg; Otherwise 10 mg every Mon, Diane; 7.5 mg all other days Left voice message Advised patient to take 10mg today and Call Coumadin Clinic at [phone] [facility] to discuss recent dosing of warfarin, what may have caused INR result, etc Will f/u again tomorrow Milla Douglas [facility] Clinical Pharmacist, Pharmacy Anticoagulation Clinic Pharmacy Anticoagulation Clinic Pager: [phone]. Milla Douglas [facility] 09/15/2024 7:08 AM Signed [facility] Pharmacy Anticoagulation Clinic Anticoagulation Episode Summary Anticoagulation Care Providers Provider Role Specialty Phone number Jayjay Ortiz MD Referring Cardiology [phone] Chavo Tom is a 44 year old year old female patient being evaluated today for a Telemanagement visit. Patient is currently on the following anticoagulant(s) Warfarin. Labs PT INR (no units) Date Value 09/14/2024 1.2 07/28/2024 2.1 07/20/2024 2.7 Hemoglobin (g/dL) Date Value 07/14/2024 13.3 05/14/2021 14.4 Hematocrit (%) Date Value 07/14/2024 40.6 05/14/2021 44.4 Platelet Count (k/uL) Date Value 07/14/2024 383 05/14/2021 307 Creatinine (mg/dL) Date Value 07/14/2024 0.77 03/03/2024 0.69 03/02/2024 0.78 05/14/2021 0.83 03/19/2021 0.82 01/07/2021 0.65 Bilirubin, Total (mg/dL) Date Value 07/14/2024 0.3 08/27/2020 0.4 ALT (U/L) Date Value 07/14/2024 19 05/14/2021 33 AST (U/L) Date Value 07/14/2024 26 05/14/2021 26 Estimated Creatinine Clearance: 94.1 mL/min (based on SCr of 0.77 mg/dL). ALLERGIES Allergen Reactions Metformin Diarrhea Nsaids (Non-Steroid* Contraindication-Med ical Surgical S/p gastric bypass, relative contraindication to NSAIDs Indication for Warfarin: Atrial fibrillation, unspecified type (hcc) Paroxysmal atrial fibrillation (hcc) halfway (current) use of 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 Anticoagulation Episode Summary Current INR goal: 2.0-3.0 Assessment: INR result of 1.2 is SUBtherapeutic due to: unknown cause - did not speak to patient Plan: Current Warfarin Dosing As of 09/14/2024 Full warfarin instructions: 09/14: 10 mg; 09/15: 12.5 mg; Otherwise 10 mg every Mon, Diane; 7.5 mg all other days Left voice message And sent [employer] message Advised patient to increase dose for 2 days only then resum (more content not included)... Normal [facility] INRon 09-14-2024 INR Coag (Bld) [Relative time] 1.2 {INR} [facility] CNOVon 09-07-2024 CNOV Office Visit (CARDMN) CHAVO TOM ([id number]) 1980 F Date Time Provider Department 09/07/24 9:00 AM ONEYDA RECINOS During your visit today, we recorded the following information about you: Pulse Blood pressure Weight Height 45/minute 107/62 69.9 kg 1.727 m Oneyda Recinos MD 09/12/2024 5:19 PM Signed [facility] [place] [facility] Department of Cardiovascular Medicine SECTION OF CARDIAC PACING and ELECTROPHYSIOLOGY OUTPATIENT VISIT DATE September 07, 2024 OUTPATIENT VISIT TYPE Established CHIEF COMPLAINT: AF IMPRESSION/PLAN: Chavo Tom is a very pleasant female patient with a past medical history significant for hypertrophic cardiomyopathy with mid cavitary obstruction status post myectomy, mitral valve repair and reorientation of the papillary muscles, left bundle branch block, WPW status post ablation, and paroxysmal atrial fibrillation status post subcutaneous ICD. Hypertrophic cardiomyopathy: She is managed by Dr. Tay. Her subcutaneous ICD is functioning appropriately. Her last ejection fraction was 70% despite the left bundle branch block. Persistent atrial fibrillation: Doing well with infrequent recurrences on sotalol. Had a recurrence of AF when we attempted to wean sotalol. She is now controlled back on sotalol. CVA prophylaxis: She has a history of hypertrophic cardiomyopathy and is managed with warfarin (gastric bypass) sinus bradycardia: Asymp. Will continue to monitor with the current dose of sotalol. She knows to call if she develops symptoms. HPI: NURSING INTAKE HISTORY: Chavo Tom is a 44 y/o female who presents for follow up for device management s/p Sub-Q ICD change 05/16/2021. She was last seen on 12/28/23. 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 She underwent drug loading with Sotalol from 08/27/20 - 08/30/20 for recurrent atrial fibrillation. She underwent Jenny-en-y gastric bypass 02/2023. She reports she has been doing well. She reports she can have break through atrial fibrillation around once every 3-4 months. Last in 06/2023, she reports she was seen at [place] ED and self converted prior to any treatment. She denies chest pain, shortness of breath, lightheadedness or syncope. She notes that since she has had significant weight loss after surgery her Sub-Q ICD is more pronounced and her arm rubs against it more than it did before. She denies any pain at her device site. REVIEW OF SYSTEMS Negative in detail except as outlined in the HPI. PHYSICIAL EXAM: BP 107/62 Pulse (!) 45 Ht 172.7 cm (5' 8") Wt 69.9 kg (154 lb) LMP 01/06/2012 (Approximate) BMI 23.42 kg/m? GEN: Awake, alert, no apparent distress HEAD: Normocephalic, atraumatic EYES: Anicteric sclera. Extraocular movements are intact. LUNGS: Non-labored breathing, normal chest wall movement HEART: Regular rhythm, bradycardic ABDOMEN: Non-distended EXTREMITIES: No cyanosis clubbing or edema. MUSCULOSKELETAL: No gross deformities. SKIN: No rashes DATA: (The following studies were reviewed personally) Normal In-Office: No Events SUB Q ICD IN OFFICE EVALUATION * Presents for: OPD with Dr. Recinos * Presenting ECG: Sinus bradycardia ~ 42 bpm. Sensing well in Primary configuration * Normal Device Function * Alerts or events: None since last remote. * Battery: Battery is at 63%, * Beeper tested and audible. Discussed alert with patient * Electrode impedance status reviewed and appropriate at 45 ohms * Device Parameters were evaluated * SMART Pass: ON Tachycardia: AF Previously documented on remotes * No new AF detections since 03/03/24. * There were 3 AF events in January and February. Patient is aware of when she is in AF. * Anticoagulation listed: Coumadin PAST MEDICAL HISTORY Diagnosis Date Atrial fibrillation (HCC) CHADS score 0 Cardiomyopathy (HCC) 02/24/14 Family history of hypertrophic cardiomyopathy 01/18/2014 Impaired glucose tolerance 01/21/2011 Left bundle branch block Obesity S/P gastric bypass 02/18/2023 Sleep apnea Thyroid nodule, cold 04/12/2018 10/15/2020 US 4mm right nodule: no f/u recommended 12/10/16 US right nodule smaller: Heterogeneous solid nodule mid pole 6 x 4 x 5 mm01/27/14 US:hypoechoic 9 x 5 x 6mm nodule anteriorly at the mid right lobe 03/14/[address] Gama Rubin: felt nodule smaller, did not recommend KE 02/09/14 NM uptake scan: hypo-functoning thyroid nodule right mid-lobe Ventricular tachyarrhythmia (HCC) 02/2014 Gqklf-Conwsawhh-Jvlu e (WPW) syndrome s/p ablaton 02/2014 and 08/2014 Current Outpatient Medications Medication Sig war (more content not included)... Normal [facility] ECG COMPLETEon 09-07-2024 ECG COMPLETE Ventricular Rate : 42 BPM Atrial Rate : 42 BPM P-R Interval : 140 ms QRS Duration : 128 ms Q-T Interval : 518 ms QTC Calculation(Bazett) : 432 ms Calculated P [place] : 45 degrees Calculated R [place] : 32 degrees Calculated T [place] : 88 degrees MARKED SINUS BRADYCARDIA COMPLETE LEFT BUNDLE BRANCH BLOCK ABNORMAL ECG Confirmed by MD AUTUMN, HEBA ([id number]) on 10/04/2024 7:16:37 PM NAME : CHAVO TOM PID : [id number] : 1980 Gender : Female Race : ORD : [id number] Procedure Date : Sep 07 2024 08:54:17 Edit Date : Oct 04 2024 19:16:41 Diagnosis: MARKED SINUS BRADYCARDIA COMPLETE LEFT BUNDLE BRANCH BLOCK ABNORMAL ECG Confirmed by MD LEYVA HEBA ([id number]) on 10/04/2024 7:16:37 PM Test Reason : Location : 314 : J14 J1-4 Overread By : MD LEYVA HEBA Edited By : MD LEYVA HEBA Referred By : , Acquired by : MISTI MOURA [facility] Urgent Care Visit Reporton 1 10-31-2023 Urgent Care Visit Report [facility] [address], [address] [place] [address] OFFICE VISIT Date of Service: 08/31/24 MR#: [id number] Acct: [id number] Name: CHAVO TOM Rep #: [id number] : 1980 Provider: HALEY Ramirez Age/Sex: 44/F Location: [facility] Status: Signed Intake Vital Signs 08/26/24 05:40 08/31/24 06:55 Height 5 ft 8 in Weight: 162 lb 11.218 oz BMI 24.7 BP 115/85 H 112/70 Blood Pressure Location Lt brachial Position Sitting Respiration 18 12 Pulse 67 61 Pulse Source NIBP Temp 97.6 F L 98.1 F Temp Source Oral Oral Pulse Oximetry (%) 100 99 Oxygen Delivery Method room air Intake Visit Reasons: SUTURE REMOVAL/ FRITO LAY Chief Complaint: Suture removal/ Frito lay Quad Stayer Required: No Is patient in pain?: No Allergies metformin Adverse Reaction (Verified 08/26/24 05:40) Nausea/Vom/Diarrhea NSAIDS (Non-Steroidal Anti-Inflamma Adverse Reaction (Verified 08/26/24 05:40) Other Is last menstrual period known: No Post menopausal: No Patient : No Have you fallen in the past year?: No Nurse's Note: patient here for suture removal for frito lay. [facility] Medical History Presence of combination internal cardiac defibrillator (ICD) and pacemaker Atrial flutter Afib Fatigue Borderline diabetes Heart disease Shortness of breath Surgical History S/P gastric bypass H/O cardiac radiofrequency ablation Hx of tympanostomy tubes History of heart surgery Family History Mother Diabetes Hypertension Father CVA (cerebral vascular accident) Social History Smoking Status: Never smoker alcohol intake: never HPI HPI Chief Complaint: Suture removal/ Frito lay Details: CHAVO TOM, is a 44 F who presents to the office today for follow-up of a work-related injury which occurred on 08/26/2024. On that date the patient had a lead to fall onto her face causing a small laceration above her left eye. She was treated at [facility] ED and had suture repair. Patient states that since then she has had no complications and denies any headaches, vision change or syncopal/near syncopal episodes. No other associated symptoms or alleviating/aggravat ing factors. ROS Const Constitutional: No other (6 system ROS completed with pertinent findings in the HPI otherwise normal.) Exam Const General: cooperative and healthy appearing [facility] Head: normocephalic and atraumatic Other: Small laceration just below the left medial eyebrow which appears to be healing well. All sutures removed without complication with no dehiscence of the wound. Eyes General: appearance normal, both eyes and all related structures Pupils: PERRL Skin General: no rashes or lesions noted Neuro General: patient alert Psych Appearance: grossly normal Mental Status: mental status grossly normal Coding Level of Care Code Off vis,new,level 3 Diagnoses Laceration of face S01.81XA Closed injury of head S09.90XA Assessment and Plan Assessment and Plan (1) Laceration of face: Status: Acute (2) Closed injury of head: Status: Acute Plan [employer] 14 filled out releasing patient back to work today without restrictions. Patient advised ongoing wound management. Advised to symptomatic management techniques as well as potential red flags and when appropriate to report to the ED. Patient verbalized understanding and agreement with all the above. Clinical Quality Measures Falls Risk Screening/Assistive Devices Have you fallen in the past year?: No 08/31/24 0736 Date Lio DE LEON Cosigner Signature: Date (if applicable) CC: Normal [facility] Brain/Head without Contrast n 08-26-2024 Brain/Head without Contrast [facility] Imaging Services [address] [place], [place] [address] Brain/Head without Contrast MR#: [id number] Acct: [id number] Name: CHAVO TOM Rep #: [id number] : 1980 F 44 From: Lashonda Colindres PCP: HALEY Rios Status: REG ER Study: Brain/Head without Contrast Date of Exam: 08/06 11/28 Exam# [id number] Ordering Dr: Rogelio Campuzano DO [id number] INDICATION: Trauma EXAMINATION: CT BRAIN - CT Head or Brain W/O Contrast Injection TECHNIQUE: Multiple axial images were obtained of the head without intravenous contrast. The protocol utilizes one or more of the following dose reduction techniques: automated exposure control, adjustment of mA and/or kV according to patient size,and/or use of iterative reconstruction technique. IV Contrast dosage and agent: None. RADIATION DOSAGE (If Supplied By Facility): CTDIvol = ( 44.99 ) mGy, DLP = ( 762.36 ) mGycm COMPARISON: No relevant prior comparison study available ____ FINDINGS: BRAIN PARENCHYMA: No intra- or extra-axial hemorrhage. No evidence of acute infarct. No intracranial mass or mass effect. There is preservation of the draper/white matter interface. Posterior fossa structures are unremarkable. CSF SPACES: Appropriate for age. No hydrocephalus. Basal cisterns are patent. CALVARIUM, SKULL BASE, PARANASAL SINUSES AND MASTOID AIR CELLS: Clear. No discrete lytic or blastic abnormalities. ORBITS: Both globes, extraocular muscles, optic nerves and retrobulbar fat appear unremarkable. ASPECTS Score for Acute Strokes: 10 CT/Brain/Head without Contrast IMPRESSION: Negative Brain CT without contrast. Electronically Signed: Lashonda Padgett MD at 6:49 EST Reading Location ID and State: [facility] / [place] Tel , Service support , CC: Dr. Rogelio Campuzano DO; HALEY Rios Web Development Instructor: Signed Normal [facility] Emergency Department Summary on 08-26-[address] [facility] Medical Records Department [address] [place] [id number] Emergency Department Summary 08/26/24 MR#: [id number] Acct: [id number] Name: CHAVO OTM Rep #: [id number] : 1980 44 From: Rogelio Campuzano DO PCP: HALEY Rios Status:REG ER Location: ED HPI History of Present Illness Chief Complaint: Head Injury Narrative Narrative: Chief complaint and HPI: Head injury. 44-year-old female with history of atrial fibrillation on warfarin, WPW presents from work after a head injury. Patient states that she was at a water station when a large metal object fell onto her head/face. Patient states it weighs approximately 50 pounds. Patient denies LOC. She denies falling to the ground. Patient has a small laceration to the medial left eyebrow. Unknown if up-to-date on tetanus. She endorses pain only at the site of her laceration. Denies any headache, vision changes, neck pain, back pain, chest pain, shortness of breath, abdominal pain, nausea, vomiting, weakness, numbness/tingling. Review of systems: See HPI Medications: As listed on the chart Allergies: As listed on the chart PFSH: Per chart Vital signs: As listed on the chart. Reviewed. Physical exam: Gen: A O x3, NAD Head: Normocephalic, atraumatic Eyes: No sclera icterus, conjunctiva clear, PERRL, EOMI, 1 cm laceration to the medial left eyebrow- currently no active bleeding but gaping and will need repaired ENT: TMs clear BL, moist mucous membranes, no swelling/lacerations /blood in the mouth or the nares, No nasal septal hematoma, facial tenderness where laceration is located Neck: Trachea midline, No JVD, Nontender, full range of motion CV: RRR, no murmurs, no chest wall TTP Resp: Lungs CTA BL, no w/r/c GI: Abd soft, non-distended, non-tender, no r/r/g Musc: Full ROM, no deformity, no spinal TTP, no michelle step-offs Skin: Warm, dry, intact Neuro: Alert, oriented, grossly intact, sensation intact, GCS 15 Psych: Cooperative, appropriate mood and affect [facility] Medical History Presence of combination internal cardiac defibrillator (ICD) and pacemaker Atrial flutter Afib Fatigue Borderline diabetes Heart disease Shortness of breath Home Medications ???Medication ???Instructions ???Recorded ???Last Taken ???Type metoprolol tartrate 25 mg tablet 37.5 mg PO BID 02/21/14 12/16/19 History sotalol 120 mg tablet 120 mg PO BID 06/12/21 Unknown History multivitamin with iron 1 tab PO DAILY 07/30/23 Unknown History warfarin 2.5 mg tablet (Jantoven) 5 mg PO MOWETHSA 05/03/23 Unknown History warfarin 5 mg tablet 2.5 mg PO SUTUFR 05/03/23 Unknown History doxycycline hyclate 100 mg tablet 50 mg PO BID 01/18/24 Unknown History Allergy/AdvReac Type Severity Reaction Status Date / Time metformin AdvReac Nausea/Vom/ Verified 08/26/24 05:40 Diarrhea NSAIDS (Non-Steroidal AdvReac Other Verified 08/26/24 05:40 Anti-Inflamma Family History Mother Diabetes Hypertension Father CVA (cerebral vascular accident) Surgical History S/P gastric bypass H/O cardiac radiofrequency ablation Hx of tympanostomy tubes History of heart surgery Social History Smoking Status: Never smoker alcohol intake: never EXAM Physical Exam Const Vital Signs: 08/26/24 05:40 08/26/24 05:44 Temperature 97.6 F L Temperature Source Oral Pulse Rate 67 Respiratory Rate 18 Blood Pressure 115/85 H Blood Pressure Mean 95 Pulse Ox 100 Oxygen Delivery Method Room Air MDM MDM MDM Narrative Medical decision making narrative: 44-year-old female with history of atrial fibrillation on warfarin presents for evaluation of head injury and facial laceration. See physical exam findings. Differential diagnosis includes but is not limited to facial laceration, facial contusion, facial fracture, intracranial bleed, skull fracture, neck fracture. Patient is on warfarin and therefore we will get a H H and INR in case reversal is needed. Tetanus updated. CT head, neck, face ordered. Laceration was repaired and patient tolerated this well. See below. Patient without anemia. Her INR is 1.5. This is subtherapeutic given her warfarin. Patient was educated on this. She will follow-up with her PCP to have her warfarin adjusted. CT of the brain, cervical spine, max facial without traumatic injury. Patient is stable to discharge home. She has to follow-up with [facility] to have her sutures removed in 5 days. She confirmed understanding. Monitor for signs of infection. She needs to get a drug screen done at the [facility]. Laceration R (more content not included)... Normal [facility] Hemoglobinon 08-26-2024 Hemoglobin (Bld) [Mass/Vol] 12.6 g/dL Normal 12.0-15.0 [facility] Comment on above: Performed By: #### L 300.3900, L100.1300 ####[facility] [id number] [place], [address] Office Visit Reporton 2023 Office Visit Report [facility] [address] [place] [address] OFFICE VISIT Date of Service: 08/26/24 MR#: [id number] Acct: [id number] Patient: CHAVO TOM Rep #: [id number] : 1980 Provider: HALEY Ramirez Age/Sex: 44/F Location: [facility] Status: Signed Intake Vital Signs 08/26/24 05:40 Height 5 ft 8 in Intake Visit 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/ FRITO 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 Chief Complaint: gallstones ER f/u Allergies metformin Adverse Reaction (Verified 08/26/24 05:40) Nausea/Vom/Diarrhea NSAIDS (Non-Steroidal Anti-Inflamma Adverse Reaction (Verified 08/26/24 05:40) Other Office Procedures [facility] Billing Sheet Testing Post-Accident Non-DOT Breath Alcohol Test: Yes Post-Accident NON-DOT Drug Screen in [facility]: Yes 08/26/24 1022 Date Lio Montgomery Signature: Date (if applicable) CC: Normal [facility] Prothrombin Time w/INRon INR Coag (PPP) [Relative time] 1.5 {INR} Normal [facility] Comment on above: Performed By: #### L 300.3900, L100.1300 ####[facility] [id number] [place], [place], [id number] PT Coag (PPP) [Time] 18.2 s High 11.7-14.9 [facility] Comment on above: Performed By: #### L 300.3900, L100.1300 ####[facility] [id number] [place], [address] Sinus/Facial Boneon 08-26-20 Sinus/Facial Bone [facility] Imaging Services [address] [place] [address] Sinus/Facial Bone MR#: [id number] Acct: [id number] Name: CHAVO TOM Rep #: [id number] : 1980 F 44 From: Lashonda Colindres PCP: HALEY Rios Status: REG ER Study: Sinus/Facial Bone Date of Exam: 08/26/24 Exam# [id number] Ordering Dr: Rogelio Campuzano DO [id number] INDICATION: Trauma EXAMINATION: CT FACIAL BONES - CT Maxillofacial W/O Contrast Injection TECHNIQUE: Helically acquired images were obtained of the facial bones. A radiation dose optimization technique was used for this scan. The protocol utilizes one or more of the following dose reduction techniques: automated exposure control, adjustment of mA and/or kV according to patient size,and/or use of iterative reconstruction technique. IV Contrast dosage and agent: None. RADIATION DOSAGE (If Supplied By Facility): CTDIvol = ( 29.38 ) mGy, DLP = ( 525.42 ) mGycm COMPARISON: ____ FINDINGS: SOFT TISSUES: No focal subcutaneous swelling. No discrete fluid collections. VISUALIZED PARANASAL SINUSES: Clear. VISUALIZED MASTOID AIR CELLS: Clear. FACIAL BONES, MANDIBLE AND TMJs: No displaced facial bone fracture. No lytic or blastic abnormality. VISUALIZED DENTITION: Multiple dental caries. ORBITAL CONTENTS: Both globes, extraocular muscles and retrobulbar fat appear unremarkable. CT/Sinus/Facial Bone IMPRESSION: No acute injury of the facial bones. Electronically Signed: Lashonda Padgett MD at 6:55 EST Reading Location ID and State: [facility] / [place] Tel , Service support , CC: Dr. Rogelio Campuzano DO; HALEY Rios Web Development Instructor: Signed Normal [facility] Spine Cervical without Contr ason 08-26-2024 Spine Cervical without Contras [facility] Imaging Services [address] [place] [address] Spine Cervical without Contras MR#: [id number] Acct: [id number] Name: CHAVO TOM Rep #: [id number] : 1980 F 44 From: Lashonda Colindres PCP: HALEY Rios Status: REG ER Study: Spine Cervical without Contras Date of Exam: 10/26/23 Exam# [id number] Ordering Dr: Rogelio Campuzano DO [id number] INDICATION: Trauma EXAMINATION: CT CERVICAL SPINE - CT Spine Cervical W/O Contrast Injection TECHNIQUE: Helically acquired images were obtained of the cervical spine. 2D reformatted images were reviewed. The protocol utilizes one or more of the following dose reduction techniques: automated exposure control, adjustment of mA and/or kV according to patient size,and/or use of iterative reconstruction technique. IV Contrast dosage and agent: None. RADIATION DOSAGE (If Supplied By Facility): CTDIvol = ( 13.31 ) mGy, DLP = ( 268.40 ) mGycm COMPARISON: No relevant prior comparison study available ____ FINDINGS: VERTEBRAE: No fracture or traumatic subluxation. No discrete lytic or blastic abnormality. Normal alignment. Normal craniocervical junction and cervicothoracic junction. DISCS and SPINAL CANAL: Disc heights are preserved. No critical stenosis. NECK SOFT TISSUES: No prevertebral soft tissue swelling. There is no cervical adenopathy. LUNG APICES: Clear. CT/Spine Cervical without Contras IMPRESSION: No evidence of acute cervical spinal fracture or spondylolisthesis. Electronically Signed: Lashonda Padgett MD at 6:50 EST , CC: Dr. Rogelio Campuzano DO; HALEY Rios Web Development Instructor: Signed Marylu [facility] CNOVon 08-25-2024 CNOV Office Visit (OBGYWM) TYCHAVO BENNETT ([id number]) 1980 F Date Time Provider Department 08/25/24 7:45 AM ALEC BLAIR During your visit today, we recorded the following information about you: Blood pressure Weight Height 110/64 70.3 kg 1.753 m Alec Blair APRN.CNP 08/25/2024 8:10 AM Signed Chavo is a 44 year old who presents for an annual gynecologic exam without complaints. Experiencing some decreased libido. Menses: spotting- Mirena IUD. Contraception: IUD 2017 HPV vaccine: No Last Pap: 01/27/2017 normal HPV: 01/22/2017 negative History of abnormal pap: Yes Last mammogram: 2022 abnormal, dx benign Sexually active: Yes History of STDS: None Patient concerns for STD exposure: No. Pain with intercourse: No Postcoital bleeding: No Night Sweats: 1x per night Hot Flashes: No Exercise: going to gym 3x per week OB History T1 L1 SAB0 IAB0 Ectopic0 Multiple0 Live Births1 Scan Coordinator History LMP: 01/06/2012 (Approximate), IUD Age at Menarche: Age at First : Age at Menopause: Scan Coordinator History Comments: Sexual Activity: Yes; Male; Mirena Contraception: I.U.D. PAST MEDICAL HISTORY Diagnosis Date Atrial fibrillation (HCC) CHADS score 0 Cardiomyopathy (HCC) 02/24/14 Family history of hypertrophic cardiomyopathy 01/18/2014 Impaired glucose tolerance 01/21/2011 Left bundle branch block Obesity S/P gastric bypass 02/18/2023 Sleep apnea Thyroid nodule, cold 04/12/2018 10/15/2020 US 4mm right nodule: no f/u recommended 12/10/16 US right nodule smaller: Heterogeneous solid nodule mid pole 6 x 4 x 5 mm01/27/14 US:hypoechoic 9 x 5 x 6mm nodule anteriorly at the mid right lobe 03/14/[address] 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 Cardioverted with 150j under sedation DEFIBRILLATOR SURGERY 02/24/2014 ICD, redo WPW AND atrial fib ablation EPS: DEFIB. SURGERY 05/16/2021 Exchange of a [employer] SQ-RX 1010 pulse generator with a [employer] SURG ANT SGMT PROC UNLISTED Right 05/03/2024 Dr. Stephany HERNÁNDEZ GASTRIC BYPASS/JENNY-EN-Y 02/18/2023 150cmantecolic jenny, 70cm bp limb LAPAROSCOPIC CHOLECYSTECTOMY 05/20/2023 PAST SURGICAL HISTORY OF 07/06/2014 WPW ablation PAST SURGICAL HISTORY OF 11/21/2019 MVr, myectomy, PVI, LAAC TYMPANOSTOMY LOCAL/TOPICAL ANESTHESIA Right FAMILY HISTORY Problem Relation Age of Onset Lipids Father Diabetes Mother Hypertension Mother Thyroid Mother Coronary Artery Disease Mother CABG 2012 Diabetes Brother Heart Sister HOCM s/p ICD None Maternal Grandfather age 46-"suddenly" Heart Maternal Grandmother OR age 72 Alcohol/Drug Paternal Grandfather ETOH Diabetes Maternal Aunt Diabetes Maternal Uncle Colon Cancer No Family History Anesthesia Problems No Family History SOCIAL HISTORY Social History Tobacco Use Smoking status: Never Smokeless tobacco: Never Vaping Use Vaping status: Never Used Substance Use Topics Alcohol use: No Drug use: No REVIEW OF SYSTEMS Abdomen: No abdominal pain, nausea, vomiting, diarrhea, or constipation. No bloating, early satiety, indigestion, or increased flatulence. Bladder: No dysuria, gross hematuria, urinary frequency, urinary urgency, or incontinence. Breast: No breast lumps, nipple d/c, overlying skin changes, redness or skin retraction. Allergies and current medication updated:Yes SENSITIVE EXAM: The sensitive examination was discussed with the Patient or Patient's Authorized Boil Off Machine Operator Cloth. As applicable, any other physician, advance practice provider, medical student, or other health professional student that will be observing or involved in the sensitive examination for educational or training purposes was discussed with the Patient or Authorized Boil Off Machine Operator Cloth. The Patient or Authorized Boil Off Machine Operator Cloth has agreed to proceed with the sensitive examination. (Sensitive examination includes inspection and/or palpation of the breasts, pelvis, prostate and anorectal regions). EXAM: BP 110/64 Ht 5' 9" (1.75m) Wt 155 lb (70.3kg) LMP 01/06/2012 BMI 22.88 kg/(m2). GENERAL: pleasant, female in no apparent distress HEENT: Normocephalic, atraumatic, mucus membranes moist, and no lesions NECK: Supple, full range of motion, no adenopathy, and thyroid normal DERMATOLOGY: Normal, without lesions, non-icteric, and non-hirsute BREAST: soft, non-tender, symmetric, no dominant mass, normal nipple-areolar complex, no lymphadenopathy, and no nipple discharge + surgical scar noted to chest CHEST: Normal inspiratory effort ABD (more content not included)... Normal [facility] HIGH RISK HUMAN PAPILLOMA MIKIE (HPV), PCR FOR DETECTION AND GENOTYPINGon 08-25-2024 HPV 16 Ag Ql (Unsp spec) Not detected Normal Not detec sheron [facility] Comment on above: Order Comment: Speci men Type: FLUID SPECIMENOrdering Facility: [facility] [place] Address: [address] [place] [address] Performed By: #### H PVHRT ####[facility] LABCLIA [id number] [place] [address] [place] HPV 18 Ag Ql (Unsp spec) Not detected Normal Not detec sheron [facility] Comment on above: Order Comment: Speci men Type: FLUID SPECIMENOrdering Facility: [facility] [place] Address: [address] [place] [address] Performed By: #### H PVHRT ####[facility] LABCLIA [id number] [place] [address] [place] HPV 31+33+35+39+45+51+52+56+ 58+59+66+68 DNA LAUREN+probe Ql (Cvx) Not detected Normal Not detected [facility] Comment on above: Order Comment: Speci men Type: FLUID SPECIMENOrdering Facility: [facility] [place] Address: [address] [place] [address] Result Comment: High Risk HPV Other Type includes HPV types 31, 33, 35, 39, 45, 51, 52, 56, 58, 59, 66 and 68. Performed By: #### H PVHRT ####[facility] LABCLIA [id number] [place] [address] [place] PAP TESTon 08-25-2024 ADEQUACY Satisfactory for interpretation. Normal [facility] Comment on above: Order Comment: Speci men Type: FLUID SPECIMENOrdering Facility: [facility] [place] Address: [address] [place] [address] Performed By: #### L [id number] ####[facility] [id number] [place] [address] [place] CASE REPORT Normal [facility] Comment on above: Order Comment: Speci men Type: FLUID SPECIMENOrdering Facility: [facility] [place] Address: [address] [place] [address] Result Comment: Gyne cologic Cytology Report Case: [id number] Authorizing Provider: Alec Blair APRN.REGISTERED DIET TECHNICIAN Collected: 08/25/2024 08:16 AM Ordering Location: OB/Gynecology Received: 08/25/2024 08:59 AM First Screen: Alec Todd CT, ASCP Specimen: Pap Test, ThinPrep, Cervix Performed By: #### L [id number] ####[facility]ORY[facility] [id number] [place] [address] [place] CLINICAL HISTORY, CYTOLOGY, FIRE LIEUTENANT Routine Exam Normal [facility] Comment on above: Order Comment: Speci men Type: FLUID SPECIMENOrdering Facility: [facility] [place] Address: [address] [place] [address] Result Comment: Intr a Uterine Device, No Menses Performed By: #### L [id number] ####[facility]ORYCL[facility] [id number] [place] [address] [place] FINAL PERFORMING LAB Normal [facility] Comment on above: Order Comment: Speci men Type: FLUID SPECIMENOrdering Facility: [facility] [place] Address: [address] [place] [address] Result Comment: Tech nical component, grooming assistant screening performed at [facility], [address], [place] [address] CLIA# [id number] Diagnostic interpretation performed at [facility], [address], [place] [address] CLIA# [id number] Candy Polisher: Neda Granados M.D. Performed By: #### L [id number] ####[facility]ORY[facility] [id number] [place] [address] [place] INTERPRETATION, CYTOLOGY, FIRE LIEUTENANT Normal [facility] Comment on above: Order Comment: Speci men Type: FLUID SPECIMENOrdering Facility: [facility] [place] Address: [address] [place] [address] Result Comment: Nega tive for intraepithelial lesion or malignancy. Performed By: #### L [id number] ####[facility] [id number] [address] [place] PAP DISCLAIMER COMMENT The Pap Smear is a screening test for cervical cancer. False negative results occur with all screening tests, emphasizing the need for rescreening at recommended intervals, and clinical correlation. Normal [facility] Comment on above: Order Comment: Speci men Type: FLUID SPECIMENOrdering Facility: [facility] [place] Address: [address] [place] [address] Performed By: #### L [id number] ####[facility]ORYCLIA [id number] [address] OF [place] PAP TOURIST HOME KEEPER COMMENT This specimen has been analyzed by the ThinPrep Imaging System, an automated imaging and review system, which assists the laboratory in evaluating cells on ThinPrep Pap tests. Following automated imaging, selected he from every slide are reviewed by a grooming assistant. Normal [facility] Comment on above: Order Comment: Speci men Type: FLUID SPECIMENOrdering Facility: [facility] [place] Address: [address] [place] [address] Performed By: #### L [id number] ####[facility]ORYCLIA [id number] [address] [place] INR FINGERSTICK B/Oon 2023 INR Coag (Bld) [Relative time] 2.1 {INR} [facility] INR FINGERSTICK B/Oon 2023 INR Coag (Bld) [Relative time] 2.7 {INR} [facility] CBC W Auto Differential pane l (Bld)on 07-14-2024 Basophils (Bld) [#/Vol] 0.07 10*3/uL [facility] Basophils/100 WBC (Bld) 0.8 % [facility] Differential cell count method Nom (Bld) Auto [facility] Eosinophils (Bld) [#/Vol] 0.17 10*3/uL [facility] Eosinophils/100 WBC (Bld) 2.0 % [facility] Erythrocyte distribution width (RBC) [Ratio] 13.5 % 11.5 - 15.0 % [facility] Hematocrit (Bld) [Volume fraction] 40.6 % 36.0 - 46.0 % [facility] Hemoglobin (Bld) [Mass/Vol] 13.3 g/dL 11.5 - 15.5 g/dL [facility] Immature granulocytes (Bld) [#/Vol] 0.03 10*3/uL [facility] Immature granulocytes/100 WBC (Bld) 0.4 % [facility] Lymphocytes (Bld) [#/Vol] 2.34 10*3/uL [facility] Lymphocytes/100 WBC (Bld) 27.9 % [facility] MCH (RBC) [Entitic mass] 29.2 pg 26. 0 - 34.0 pg [facility] MCHC (RBC) [Mass/Vol] 32.8 g/dL 30.5 - 36.0 g/dL [facility] MCV (RBC) [Entitic vol] 89.2 fL 80.0 - 100.0 fL [facility] Monocytes (Bld) [#/Vol] 0.46 10*3/uL [facility] Monocytes/100 WBC (Bld) 5.5 % [facility] Neutrophils (Bld) [#/Vol] 5.31 10*3/uL [facility] Neutrophils/100 WBC (Bld) 63.4 % [facility] Nucleated RBC (Bld) [#/Vol] [facility] Nucleated RBC/100 WBC (Bld) [Ratio] 0.0 % /100 WBC [facility] Platelet mean volume (Bld) [Entitic vol] 11.2 fL 9.0 - 12.7 fL [facility] Platelets (Bld) [#/Vol] 383 10*3/uL [facility] RBC (Bld) [#/Vol] 4.55 10*6/uL 3.90 - 5.2 0 m/uL [facility] WBC (Bld) [#/Vol] 8.38 10*3/uL [facility] INRon 07-13-2024 INR Coag (Bld) [Relative time] 3.5 {INR} [facility] INRon 07-07-2024 INR Coag (Bld) [Relative time] 2.0 {INR} [facility] INR FINGERSTICK B/Oon 2023 INR Coag (Bld) [Relative time] 2.3 {INR} [facility] INRon 06-17-2024 INR Coag (Bld) [Relative time] 3.3 {INR} [facility] INRon 06-02-2024 INR Coag (Bld) [Relative time] 1.6 {INR} [facility] INR FINGERSTICK B/Oon 2023 INR Coag (Bld) [Relative time] 1.9 {INR} [facility] INR FINGERSTICK B/Oon 2023 INR Coag (Bld) [Relative time] 2.3 {INR} [facility] INR FINGERSTICK B/Oon 2023 INR Coag (Bld) [Relative time] 2.4 {INR} [facility] INR FINGERSTICK B/Oon 2023 INR Coag (Bld) [Relative time] 1.7 {INR} [facility] HISTORY PHYSICALon HISTORY PHYSICAL HNO ID: [id number] Author: TRI PARKER MD Service: Ophthalmology Author Type: Physician Type: H&P Filed: 05/03/2024 14:23 Note Text: UPDATED HISTORY AND PHYSICAL EXAMINATION SERVICE DATE: 05/03/2024 SERVICE TIME: 2:22 PM PHYSICAL EXAM MUST BE COMPLETED ON ADMISSION The History and Physical (completed in the past 30 days) has been reviewed and the patient has been examined. The contents accurately reflect the patient's condition with the following additions or revisions since the HANDP was completed. Examination indicates no changes. This HANDP can be found in the attached. SIGNATURE: Tri Parker MD PATIENT NAME: Chavo Tom DATE: May 03, 2024 TIME: 2:22 PM [facility] OPERATIVE NOon 05-03-2024 OPERATIVE NO HNO ID: [id number] Author: TRI PARKER MD Service: Ophthalmology Author Type: Physician Type: Operative Report Filed: 05/03/2024 14:55 Note Text: OPERATIVE/PROCEDURE REPORT OPHTHAMOLOGY LOG ID: [id number] SURGERY/PROCEDURE DATE: 05/03/2024 INCISION/PROCEDURE START TIME: 2:30 PM INCISION CLOSE/PROCEDURE END TIME: 2:48 PM SURGEON(S)/PROCEDURA LIST(S) AND METAL RIVETER(S): Surgeon(s) and Role: * Tri Parker MD - Primary PROCEDURE(S): Procedure(s) (LRB): KERATECTOMY (Right) PLACEMENT OF SELF-RETAINING AMNIOTIC MEMBRANE GRAFT right eye PREOPERATIVE DIAGNOSIS: Irregular astigmatism, right eye Limbal stem cell deficiency, right eye Pannus of cornea, right eye POST-OP/POST-PROCEDU RE DIAGNOSIS: Same as Preop OPERATIVE INDICATIONS: Blurred vision limiting activities of daily living (ADLs) ANESTHESIA: Local PROCEDURE DETAILS: The patient was transferred to the operating room where the eye was prepared and draped in sterile fashion. An eyelid speculum was placed. Using Weck-cels, the epithelium and pannus were debrided leaving a 1mm residual ring peripherally. A Fisher blade was used to remove any remaining islands. A loretta swetha was used to gently dutch the cornea. An ambiodisc followed by a bandage contact lens were placed.The operated eye and it was covered with a protective shield. The patient was transferred to the recovery room in stable condition. ESTIMATED BLOOD LOSS: Minimal unless noted here. SPECIMENS: * No specimens in log * IMPLANTABLE DEVICES: Implant Name Type Inv. Item Serial No. Collections Attorney Lot No. LRB No. Used Action Model No. GRAFT AMBIO2 12MM AMBIODISK - [id number] Graft GRAFT AMBIO2 12MM AMBIODISK [id number] [employer] Right 1 Implanted [id number] Ocular Co-Morbidities: No Intra-operative Complications None I/primary surgeon/proceduralis t performed the entire procedure. SIGNATURE: Tri Parker MD PATIENT NAME: Chavo Tom DATE: May 03, 2024 TIME: 2:53 PM PAGER/CONTACT #: [phone] [facility] INR FINGERSTICK B/Oon 2023 INR Coag (Bld) [Relative time] 3.6 {INR} [facility] INR FINGERSTICK B/Oon 2023 INR Coag (Bld) [Relative time] 1.6 {INR} [facility] INR FINGERSTICK B/Oon 2023 INR Coag (Bld) [Relative time] 1.3 {INR} [facility] INR FINGERSTICK B/Oon 2023 INR Coag (Bld) [Relative time] 2.0 {INR} [facility] INR FINGERSTICK B/Oon 2023 INR Coag (Bld) [Relative time] 2.7 {INR} [facility] CBC W/Diff, Automatedon 05- Absolute Lymph 2.29 X10 3/uL Normal 0.83-4.51 [facility] Comment on above: Performed By: #### L 700.6800, L500.4050, L100.0100, L300.3900 ####[facility] [address] [place], [address] Absolute Neut 4.0 X10 3/uL Normal 2.0-7.7 [facility] Comment on above: Performed By: #### L 700.6800, L500.4050, L100.0100, L300.3900 ####[facility] [address] [place], [address] Basophils/100 WBC (Bld) 0.8 % Normal 0-1 [facility] Comment on above: Performed By: #### L 700.6800, L500.4050, L100.0100, L300.3900 ####[facility] [address] [place], [address] Eosinophils/100 WBC (Bld) 1.8 % Normal 0-5 [facility] Comment on above: Performed By: #### L 700.6800, L500.4050, L100.0100, L300.3900 ####[facility] [address] [place], [address] Erythrocyte distribution width (RBC) [Ratio] 13.7 % Normal 11.6-14.6 [facility] Comment on above: Performed By: #### L 700.6800, L500.4050, L100.0100, L300.3900 ####[facility] [address] [place], [address] Hematocrit (Bld) [Volume fraction] 36.3 % Low 37-47 [facility] Comment on above: Performed By: #### L 700.6800, L500.4050, L100.0100, L300.3900 ####[facility] [address] [place], [address] Hemoglobin (Bld) [Mass/Vol] 11.7 g/dL Low 12.0-15.0 [facility] Comment on above: Performed By: #### L 700.6800, L500.4050, L100.0100, L300.3900 ####[facility] [address] [place], [address] IG% 0.400 Normal 0.0-0.9 [facility] Comment on above: Result Comment: IG% - Immature Granulocytes (promyelocytes, myelocytes and metamyelocytes) > 1% indicates that a LEFT SHIFT is Present. Performed By: #### L 700.6800, L500.4050, L100.0100, L300.3900 ####[facility] [address] [place], [address] Lymphocytes/100 WBC (Bld) 32.3 % Normal 19-41 [facility] Comment on above: Performed By: #### L 700.6800, L500.4050, L100.0100, L300.3900 ####[facility] [address] [place], [address] MCH (RBC) [Entitic mass] 28.3 pg Normal 27.0-32.0 [facility] Comment on above: Performed By: #### L 700.6800, L500.4050, L100.0100, L300.3900 ####[facility] [address] [place], [address] MCHC (RBC) [Mass/Vol] 32.2 g/dL Normal 32-36 [facility] Comment on above: Performed By: #### L 700.6800, L500.4050, L100.0100, L300.3900 ####[facility] [address] [place], [address] MCV (RBC) [Entitic vol] 87.7 fL Normal 81-99 [facility] Comment on above: Performed By: #### L 700.6800, L500.4050, L100.0100, L300.3900 ####[facility] [address] [place], [address] Monocytes/100 WBC (Bld) 7.9 % Normal 0-10 [facility] Comment on above: Performed By: #### L 700.6800, L500.4050, L100.0100, L300.3900 ####[facility] [address] [place], [address] Neutrophils/100 WBC (Bld) 56.8 % Normal 47-70 [facility] Comment on above: Performed By: #### L 700.6800, L500.4050, L100.0100, L300.3900 ####[facility] [address] [place], [address] Nucleated RBC (Bld) [#/Vol] 0 10*3/uL Normal 0-5 [facility] Comment on above: Performed By: #### L 700.6800, L500.4050, L100.0100, L300.3900 ####[facility] [address] [place], [address] Platelet mean volume (Bld) [Entitic vol] 11.4 fL Normal 6.2-12.0 [facility] Comment on above: Performed By: #### L 700.6800, L500.4050, L100.0100, L300.3900 ####[facility] [address] [place], [address] Platelets (Bld) [#/Vol] 280 10*3/uL Normal 150-450 [facility] Comment on above: Performed By: #### L 700.6800, L500.4050, L100.0100, L300.3900 ####[facility] [address] [place], [address] RBC (Bld) [#/Vol] 4.14 10*6/uL Low 4.2-5.4 [facility] Comment on above: Performed By: #### L 700.6800, L500.4050, L100.0100, L300.3900 ####[facility] [address] [place], [address] RDW SD 43.8 fl Normal 35.1-43.9 [facility] Comment on above: Performed By: #### L 700.6800, L500.4050, L100.0100, L300.3900 ####[facility] [address] [place], [address] WBC (Bld) [#/Vol] 7.1 10*3/uL Normal 4.4-11.0 [facility] Comment on above: Performed By: #### L 700.6800, L500.4050, L100.0100, L300.3900 ####[facility] [address] [place], [address] Comprehensive Metabolic Prof [facility] 02-29-2024 Albumin [Mass/Vol] 3.2 g/dL Normal 3.2-5.0 [facility] Comment on above: Performed By: #### L 700.6800, L500.4050, L100.0100, L300.3900 ####[facility] [address] [place], [address] Albumin/Globulin [Mass ratio] 1.0 {ratio} Normal 0.9-2.4 [facility] Comment on above: Performed By: #### L 700.6800, L500.4050, L100.0100, L300.3900 ####[facility] [address] [place], [address] ALK P 58 U/L Normal 45-117 [facility] Comment on above: Performed By: #### L 700.6800, L500.4050, L100.0100, L300.3900 ####[facility] [address] [place], [address] ALT [Catalytic activity/Vol] 29 U/L Normal 13-56 [facility] Comment on above: Performed By: #### L 700.6800, L500.4050, L100.0100, L300.3900 ####[facility] [address] [place], [address] AST [Catalytic activity/Vol] 25 U/L Normal 15-37 [facility] Comment on above: Performed By: #### L 700.6800, L500.4050, L100.0100, L300.3900 ####[facility] [address] [place], [address] Bilirubin [Mass/Vol] 0.80 mg/dL Normal 0.20-1.00 [facility] Comment on above: Result Comment: For patients on eltrombopag therapy, use of Dimension [place] TBIL is not recommended. Performed By: #### L 700.6800, L500.4050, L100.0100, L300.3900 ####[facility] [address] [place], [address] BUN/CRE 23.6 RATIO High 10-20 [facility] Comment on above: Performed By: #### L 700.6800, L500.4050, L100.0100, L300.3900 ####[facility] [address] [place], [address] CA,Total 8.9 mg/dL Normal 8.5-10.1 [facility] Comment on above: Performed By: #### L 700.6800, L500.4050, L100.0100, L300.3900 ####[facility] [address] [place], [address] Chloride [Moles/Vol] 108 mmol/L High 98-107 [facility] Comment on above: Performed By: #### L 700.6800, L500.4050, L100.0100, L300.3900 ####[facility] [address] [place], [address] CO2 [Moles/Vol] 27.0 mmol/L Normal 21.0-32.0 [facility] Comment on above: Performed By: #### L 700.6800, L500.4050, L100.0100, L300.3900 ####[facility] [address] [place], [address] Creatinine [Mass/Vol] 0.76 mg/dL Normal 0.55-1.02 [facility] Comment on above: Result Comment: The validity of the calculated GFR GFRAA in patients over 70 years has not been determined. Clinical correlation is essential. Performed By: #### L 700.6800, L500.4050, L100.0100, L300.3900 ####[facility] [address] [place], [address] ECRCL 96.28 ml/min Normal [facility] Comment on above: Performed By: #### L 700.6800, L500.4050, L100.0100, L300.3900 ####[facility] [address] [place], [address] EST GFR - AA 106 mL/min Normal >60 [facility] Comment on above: Result Comment: Afri can Libyan GFR Calc Performed By: #### L 700.6800, L500.4050, L100.0100, L300.3900 ####[facility] [address] [place], [address] GAP 5 Normal 5-15 [facility] Comment on above: Performed By: #### L 700.6800, L500.4050, L100.0100, L300.3900 ####[facility] [address] [place], [address] GFR/1.73 sq M.predicted among non-blacks MDRD (S/P/Bld) [Vol rate/Area] 88 mL/min/{1.73_m2} Normal >60 [facility] Comment on above: Result Comment: Non- GFR Calc Performed By: #### L 700.6800, L500.4050, L100.0100, L300.3900 ####[facility] [address] [place], [address] Globulin (S) [Mass/Vol] 3.1 g/dL Normal 2.2-4.2 [facility] Comment on above: Performed By: #### L 700.6800, L500.4050, L100.0100, L300.3900 ####[facility] [id number] [place], [address] Glucose [Mass/Vol] 99 mg/dL Normal 74-106 [facility] Comment on above: Performed By: #### L 700.6800, L500.4050, L100.0100, L300.3900 ####[facility] [address] [place], [address] Potassium [Moles/Vol] 3.7 mmol/L Normal 3.5-5.1 [facility] Comment on above: Performed By: #### L 700.6800, L500.4050, L100.0100, L300.3900 ####[facility] [address] [place], [address] Sodium [Moles/Vol] 140 mmol/L Normal 136-145 [facility] Comment on above: Performed By: #### L 700.6800, L500.4050, L100.0100, L300.3900 ####[facility] [address] [place], [address] T PROT 6.3 g/dL Low 6.4-8.2 [facility] Comment on above: Performed By: #### L 700.6800, [id number], L100.0100, L300.3900 ####[facility] [address] [place], [address] Urea nitrogen [Mass/Vol] 18 mg/dL Normal 7-18 [facility] Comment on above: Performed By: #### L 700.6800, [id number], L100.0100, L300.3900 ####[facility] [id number] [place], [address] Emergency Department Summary on 02-29-2024 Emergency Department Summary [facility] Medical Records Department [address] [place] [address] Emergency Department Summary 02/29/24 MR#: [id number] Acct: [id number] Name: CHAVO TOM Rep #: [id number] : 1980 43 From: Isra Horner DO PCP: HALEY Rios Status:DEP ER Location: ED HPI HPI - GI History of Present Illness Chief Complaint: Nausea/Vomiting Narrative Narrative: 43 year old female presenting with nausea and vomiting. she states it has been dark. She states she does not feel physically ill. she does not have chills, fever, myalgias. She states that other than not being able to hold down fluid she feels fine. she denies abdominal pain. She has had a gastric bypass in the past. she states when she called her surgeons office they wanted her to go to the emergency room. patient denies lightheadedness or dizziness. she denies black or bloody stools. PFSH PFSH Medical History Presence of combination internal cardiac defibrillator (ICD) and pacemaker Atrial flutter Afib Fatigue Borderline diabetes Heart disease Shortness of breath Home Medications ???Medication ???Instructions ???Recorded ???Last Taken ???Type metoprolol tartrate 25 mg tablet 37.5 mg PO BID 02/21/14 12/16/19 History sotalol 120 mg tablet 120 mg PO BID 06/12/21 Unknown History multivitamin with iron 1 tab PO DAILY 05/03/23 Unknown History warfarin 2.5 mg tablet (Jantoven) 5 mg PO MOWETHSA 05/03/23 Unknown History warfarin 5 mg tablet 2.5 mg PO SUTUFR 05/03/23 Unknown History doxycycline hyclate 100 mg tablet 50 mg PO BID 01/18/24 Unknown History Allergy/AdvReac Type Severity Reaction Status Date / Time metformin AdvReac Nausea/Vom/ Verified 05/03/23 15:16 Diarrhea NSAIDS (Non-Steroidal AdvReac Other Verified 02/29/24 16:47 Anti-Inflamma Family History Mother Diabetes Hypertension Father CVA (cerebral vascular accident) Surgical History S/P gastric bypass H/O cardiac radiofrequency ablation Hx of tympanostomy tubes History of heart surgery Social History Smoking Status: Never smoker alcohol intake: never ROS ROS ED Constitutional Constitutional ED: Denies chills, fever(s) or sweats Eyes Eyes: Denies blurry vision or change in vision ENT ENT ED: Denies ear pain or sore throat Cardiovascular Cardiovascular: Denies chest pain, palpitations or racing heartbeat Respiratory/Chest Respiratory/Chest: Denies cough, dyspnea or sputum Gastrointestinal Gastrointestinal: Reports nausea and vomiting; Denies abdominal pain, constipation or diarrhea Genitourinary Genitourinary ED: Denies dysuria, hematuria or urinary frequency Musculoskeletal Musculoskeletal: Denies arthralgias, myalgias or neck pain Integumentary Denies abscess, Abrasions or rash Neurologic Neurologic: Denies headache(s), paresthesias or weakness Psychiatric Psychiatric: Denies anxiety, depression, suicidal ideation or suicidal thoughts Endocrine Endocrinology: Denies polydipsia or polyuria EXAM Physical Exam Const Vital Signs: 02/29/24 16:47 02/29/24 18:59 02/29/24 20:00 Temperature 96.9 F L Temperature Source Temporal Pulse Rate 57 L 55 L 50 L Respiratory Rate 18 16 16 Blood Pressure 106/76 101/71 103/73 Blood Pressure Mean 86 81 83 Pulse Ox 100 100 100 Oxygen Delivery Method Room Air Room Air Room Air 02/29/24 20:15 Temperature 98.3 F Temperature Source Pulse Rate 50 L Respiratory Rate 15 Blood Pressure 143/75 H Blood Pressure Mean 97 Pulse Ox 100 Oxygen Delivery Method Positive well nourished General Appearance ED: Negative for pallor HEENT Reports moist mucous membranes normocephalic and atraumatic Eyes PERRL and EOMs intact bilaterally General Eye ED: Negative for pale conjunctiva or scleral icterus Resp normal respiratory effort and clear to auscultation bilaterally Auscultation: Negative for rales, rhonchi or wheezes Cardio regular rate and regular rhythm GI non-tender, non-distended and no masses Auscultation: normoactive bowel sounds Neuro CN's II-XII intact bilaterally, moves all extremities and no sensory deficits noted Sensorium / Orientation: alert, oriented to person, oriented to place and oriented to time Motor Exam: strength 5/5 throughout Psych mental status grossly normal Skin General Skin Exam: Negative for jaundice or pallor MDM MDM MDM Narrative Medical decision making narrative: 43 year old female presenting with n/v but denies other symptoms. Differential includes GERD, Gastritis, PUD, pancreatitis, dehydration, (more content not included)... Normal [facility] ,Serum,hCG Quali.on 02-29-2024 HCG, SERUM QUAL Negative Normal [facility] Comment on above: Performed By: #### L 700.7070, L500.4050, L100.0100, L300.3900 ####[facility] [id number] [place], [address] Prothrombin Time w/INRon INR Coag (PPP) [Relative time] 1.3 {INR} Normal [facility] Comment on above: Performed By: #### L 700.6800, L500.4050, L100.0100, L300.3900 ####[facility] [address] [place], [address] PT Coag (PPP) [Time] 15.7 s High 11.7-14.9 [facility] Comment on above: Performed By: #### L 700.6800, L500.4050, L100.0100, L300.3900 ####[facility] [address] [place], [address] Urinalysis, Completeon 02-28 WBC 5-10 SEEN Normal 0-5 [facility] Comment on above: Order Comment: CLEAN CATCH Performed By: #### L 400.0001 #### [facility] [address] [place], [address] AMORPHOUS 2+ Normal [facility] Comment on above: Order Comment: CLEAN CATCH Performed By: #### L 400.0001 #### [facility] [address] [place], [address] BACTERIA 1+ /hpf Normal None Seen [facility] Comment on above: Order Comment: CLEAN CATCH Performed By: #### L 400.0001 #### [facility] [address] [place], [address] EPI,SQUAMOUS 10-25 SEEN Normal 5-10 [facility] Comment on above: Order Comment: CLEAN CATCH Performed By: #### L 400.0001 #### [facility] [address] [place], [address] Mucus Ql (Urine sed) 0 SEEN Normal [facility] Comment on above: Order Comment: CLEAN CATCH Performed By: #### L 400.0001 #### [facility] [address] [place], [address] RBC 0 SEEN Normal 0-5 [facility] Comment on above: Order Comment: CLEAN CATCH Performed By: #### L 400.0001 #### [facility] [place], [address] INR FINGERSTICK B/Oon 2023 INR Coag (Bld) [Relative time] 1.8 mdinr [facility] INR FINGERSTICK B/Oon 2023 INR Coag (Bld) [Relative time] 3.6 mdINR [facility] ICD REMOTE CHECKon Detection Configuration (Vent) 2 - Zone [facility] FastVT_Detection Interval 273 ms [facility] FastVT_Therapy Configuration 0 ATP(s) + 1 Shock(s) [facility] ICD FastVT DetectionStatus ENABLED [facility] ICD-Device Mfg BSX [facility] [id number] [facility] ICD-SHOCKSDELIVEREDVENTR ICULAR 0 [facility] Implant Date 05/16/2021 [facility] Implant Date 02/24/2014 [facility] Lead1 Mfg BSX [facility] Location RV [facility] MDT_PROG_TACHY_ZONE_DETE CTIONS_STATUS ENABLED [facility] Model A219 EMBLEM MRI S-ICD [facility] Model 3010 Q-Trak SQ Electrode [facility] Serial Number [id number] [facility] Serial Number [id number] [facility] Therapy Status (Vent) Enabled [facility] VF Zone Detection Interval 250 ms [facility] VF Zone Therapy Configuration 0 ATP(s) + 1 Shock(s) [facility] 02/04/2024 SUBQ ICD EVALUATION: PRESENTING: SR BATTERY STATUS: Remaining battery life to SYDNEY is 70% ELECTRODE: OK. ARRHYTHMIAS: There have not been any ventricular detections or therapy delivered since the last evaluation. SMART PASS: ON FOLLOW UP: Continue remote transmissions every 3 months and yearly in-clinic visits. Penelope Lenz RN NOTE TO PROVIDERS: "CARD" Flowsheets contain detailed device programming and testing data. Paceart/Interrogatio n PDF can be found under CARDIAC DATA AND REPORT, "Scanned Documents" section. [facility] No Panel Informationon 02-03 BLANK _ [facility] INR FINGERSTICK B/Oon 2023 INR Coag (Bld) [Relative time] 2.6 [facility] Absolute lymphocyte countOrd ered By: Bharath Chinchilla on 01-18-2024 Lymphocytes Auto (Unsp spec) [#/Vol] 3.80 10*3/uL 0.83-4.51 [facility] Activated partial thrombopla stin time (aPTT) in platelet poor plasma by coagulation aOrdered By: Bharath Chinchilla on 01-18-2024 aPTT Coag (PPP) [Time] 39.7 s 24.1-36.2 [facility] Automated lymphocyte count a s percentage of total leukocytesOrdered By: Bharath Chinchilla on 01-18-2024 Lymphocytes/100 WBC Auto (Unsp spec) 41.9 % 19-41 [facility] Basophil percentageOrdered B y: Bharath Chinchilla on 01-18-2024 Basophils/100 WBC (Bld) 0.9 % 0-1 [facility] Chloride [Moles/Vol] 107 mmol/L 98-107 [facility] Eosinophils/100 WBC (Bld) 2.5 % 0-5 [facility] Glucose [Mass/Vol] 125 mg/dL 74-106 [facility] Comment on above: Fasting Glucose resu lt from 100 to 125 mg/dL suggests IMPAIRED HOMEOSTASIS per A.D.A. criteria. Hemoglobin (Bld) [Mass/Vol] 13.6 g/dL 12.0-15.0 [facility] Monocytes/100 WBC (Bld) 6.6 % 0-10 [facility] Neutrophils (Bld) [#/Vol] 4.4 10*3/uL 2.0-7.7 [facility] Neutrophils/100 WBC (Bld) 48.0 % 47-70 [facility] Potassium [Moles/Vol] 3.7 mmol/L 3.5-5.1 [facility] Sodium [Moles/Vol] 140 mmol/L 136-145 [facility] WBC (Bld) [#/Vol] 9.1 10*3/uL 4.4-11.0 [facility] Determination of erythrocyte mean corpuscular volume (MCV)Ordered By: Bharath Chinchilla on 01-18-2024 MCV (RBC) [Entitic vol] 86.8 fL 81-99 [facility] Erythrocyte distribution wid th ratioOrdered By: Bharath Chinchilla on 01-18-2024 Erythrocyte distribution width (RBC) [Ratio] 13.9 % 11.6-14.6 [facility] Erythrocyte distribution wid th standard deviationOrdered By: Bharath Chinchilla on 01-18-2024 Erythrocyte distribution width (RBC) [Entitic vol] 44.7 fL 35.1-43.9 [facility] Hematocrit Auto (Bld) [Volum e fraction]Ordered By: Bharath Chinchilla on 01-18-2024 Hematocrit (Bld) [Volume fraction] 41.4 % 37-47 [facility] Immature granulocytes/100 WB C Auto (Bld)Ordered By: Bharath Chinchilla on 01-18-2024 Immature granulocytes/100 WBC (Bld) 0.100 % 0.0-0.9 [facility] Comment on above: IG% - Immature Granu locytes (promyelocytes, myelocytes and metamyelocytes) > 1% indicates that a LEFT SHIFT is Present. Laboratory - Chemistry and C hemistry - challengeOrdered By: Bharath Chinchilla on 01-18-2024 CO2 [Moles/Vol] 27.0 mmol/L 21.0-32.0 [facility] Magnesium [Mass/Vol] 2.1 mg/dL 1.6-2.6 [facility] Urea nitrogen/Creatinine [Mass ratio] 22.6 mg/mg 10-20 [facility] Laboratory - CoagulationOrde red By: Bharath Chinchilla on 01-18-2024 INR Coag (Bld) [Relative time] 3.4 {INR} [facility] PT Coag (PPP) [Time] 34.1 s 11.7-14.9 [facility] Laboratory - Hematology and Cell countsOrdered By: Bharath Chinchilla on 01-18-2024 MCH (RBC) [Entitic mass] 28.5 pg 27.0-32.0 [facility] MCHC (RBC) [Mass/Vol] 32.9 g/dL 32-36 [facility] Nucleated RBC/100 WBC (Bld) [Ratio] 0 % 0-5 [facility] Platelet mean volume (Bld) [Entitic vol] 10.9 fL 6.2-12.0 [facility] Platelets (Bld) [#/Vol] 366 10*3/uL 150-450 [facility] No Panel InformationOrdered By: Bharath Chinchilla on 01-18-2024 Estimated Creatinine Clearance Calc 118.02 ml/min [facility] Estimated GFR (MDRD) Amer 135 mL/min >60 [facility] Comment on above: GFR Calc Estimated GFR (MDRD) Non-Af Amer 111 mL/min >60 [facility] Comment on above: Non- GFR Calc RBC Auto (Bld) [#/Vol]Ordere d By: Bharath Chinchilla on 01-18-2024 RBC (Bld) [#/Vol] 4.77 10*6/uL 4.2-5.4 [facility] Serum or plasma calcium eunice urement (mass/volume)Ordered By: Bharath Chinchilla on 01-18-2024 Calcium [Mass/Vol] 8.9 mg/dL 8.5-10.1 [facility] Serum or plasma choriogonado tropin detectionOrdered By: Bharath Chinchilla on 01-18-2024 HCG ( test) Ql Negative [facility] Serum or plasma creatinine m easurement (mass/volume)Ordered By: Bharath Chinchilla on 01-18-2024 Creatinine [Mass/Vol] 0.62 mg/dL 0.55-1.02 [facility] Comment on above: The validity of the calculated GFR & GFRAA in patients over 70 years has not been determined. Clinical correlation is essential. Serum or plasma thyroid stim ulating hormone (TSH) measurement (units/volume)Ordered By: Bharath Chinchilla on 01-18-2024 TSH Qn 2.47 uIU/mL 0.358-3.74 [facility] Serum or plasma urea nitroge n measurement (mass/volume)Ordered By: Bharath Chinchilla on 01-18-2024 Urea nitrogen [Mass/Vol] 14 mg/dL 7-18 [facility] Thin prep Papanicolaou smear with manual screeningOrdered By: Bharath Chinchilla on 01-18-2024 Thin prep Papanicolaou smear with manual screening 6 5-15 [facility] INR FINGERSTICK B/Oon 2023 INR Coag (Bld) [Relative time] 2.7 mdINR [facility] ICD CLINIC CHECKon Detection Configuration (Vent) 2 - Zone [facility] FastVT_Detection Interval 272 ms [facility] FastVT_Therapy Configuration 0 ATP(s) + 1 Shock(s) [facility] ICD FastVT DetectionStatus ENABLED [facility] ICD-Device Mfg BSX [facility] ICD-Rhythm SB 42 bpm. [facility] [id number] 0 [facility] ICD-SHOCKSDELIVEREDVENTR ICULAR 0 [facility] Implant Date 05/16/2021 [facility] Implant Date 02/24/2014 [facility] Lead1 Mfg BSX [facility] Location RV [facility] MDT_PROG_TACHY_ZONE_DETE CTIONS_STATUS ENABLED [facility] Model A219 EMBLEM MRI S-ICD [facility] Model 3010 Q-Trak SQ Electrode [facility] Serial Number [id number] [facility] Serial Number [id number] [facility] Therapy Status (Vent) Enabled [facility] VF Zone Detection Interval 250 ms [facility] VF Zone Therapy Configuration 0 ATP(s) + 1 Shock(s) [facility] No Panel Informationon 12-27 BLANK _ [facility] INR FINGERSTICK B/Oon 2023 INR Coag (Bld) [Relative time] 3.7 MDINR [facility] INR FINGERSTICK B/Oon 2023 INR Coag (Bld) [Relative time] 2.3 mdINR [facility] INR FINGERSTICK B/Oon 2023 INR Coag (Bld) [Relative time] 1.2 mdINR [facility] INR FINGERSTICK B/Oon 2023 INR Coag (Bld) [Relative time] 2.3 mdINR [facility] INR FINGERSTICK B/Oon 2023 INR Coag (Bld) [Relative time] 2.0 mdINR [facility] INR FINGERSTICK B/Oon 2023 INR Coag (Bld) [Relative time] 2.4 mdINR [facility] WERO DIAG W HAYLEE LEFTon 11-11 [facility] ICD REMOTE CHECKon Detection Configuration (Vent) 2 - Zone [facility] FastVT_Detection Interval 273 ms [facility] FastVT_Therapy Configuration 0 ATP(s) + 1 Shock(s) [facility] ICD FastVT DetectionStatus ENABLED [facility] ICD-Device Mfg BSX [facility] [id number] [facility] ICD-SHOCKSDELIVEREDVENTR ICULAR 0 [facility] Implant Date 05/16/2021 [facility] Implant Date 02/24/2014 [facility] Lead1 Mfg BSX [facility] Location RV [facility] MDT_PROG_TACHY_ZONE_DETE CTIONS_STATUS ENABLED [facility] Model A219 EMBLEM MRI S-ICD [facility] Model 3010 Q-Trak SQ Electrode [facility] Serial Number [id number] [facility] Serial Number [id number] [facility] Therapy Status (Vent) Enabled [facility] VF Zone Detection Interval 250 ms [facility] VF Zone Therapy Configuration 0 ATP(s) + 1 Shock(s) [facility] No Panel Informationon 11-05 BLANK _ [facility] No Panel Informationon 09-11 IMPRESSION: 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 Web Development Instructor: PSCB Transcribe Date/Time: Sep 11 2023 1:46P Dictated by : CATHY BELLA DO This examination was interpreted and the report reviewed and electronically signed by: CATHY BELLA DO on Sep 11 2023 1:52PM [facility] DIVISION OF RADIOLOGY Radiology Study observation (narrative) Amanda colindres [facility] No Panel InformationOrdered By: [facility] Provider on 09-11-2023 [facility] XR Lumbar spine 3 Viewson * * *Final Report* * * DATE OF EXAM: Sep 11 2023 1:36PM WOX [id number] - XR LUMBAR 3V AP/LAT/L5-S1 / PROCEDURE REASON: Lumbar radiculopathy * * * * Physician Interpretation * * * * EXAMINATION: XR LUMBAR 3V AP/LAT/L5-S1, XR HIP 3V PELV+ AP/LAT LT PATIENT/TECHNOLOGIST PROVIDED HISTORY: pain started yesterday lateral pelvis area and radiates down the side of her left leg no inj, has defibulator on left side CLINICAL INFORMATION: 43 years old Female with Lumbar radiculopathy TECHNIQUE: XR LUMBAR 3V AP/LAT/L5-S1, XR HIP 3V PELV+ AP/LAT LT Laterality: See below. Number of different views (projections): 3 views of the lumbar spine and 3 views of the LEFT hip. COMPARISON: None. RESULT: Lumbar spine: Counting reference: Lumbosacral junction. For the purposes of this report, L4-5 is considered the level of the iliac crest and there are 5 lumbar-type vertebrae. Anatomic Variants: None. Alignment: Mild levoconvex curvature of the lumbar spine. Alignment is otherwise satisfactory. Vertebral bodies: Vertebral body heights are maintained. Spine articulations: No significant disc space narrowing. Scattered small endplate osteophytes. Mild facet degenerative. Other: Bowel anastomotic sutures in the LEFT upper quadrant. Partially visualized LEFT chest wall AICD. Left hip: No fracture. Hip joint spaces are maintained. Sacroiliac joints and pubic symphysis are within normal limits. IUD in the pelvis. DIVISION OF RADIOLOGY Provider, [facility] - 09/11/2023 * * *Final Report* * * DATE OF EXAM: Sep 11 2023 1:36PM WOX 5228 - XR LUMBAR 3V AP/LAT/L5-S1 / PROCEDURE REASON: Lumbar radiculopathy * * * * Physician Interpretation * * * * EXAMINATION: XR LUMBAR 3V AP/LAT/L5-S1, XR HIP 3V PELV+ AP/LAT LT PATIENT/TECHNOLOGIST PROVIDED HISTORY: pain started yesterday lateral pelvis area and radiates down the side of her left leg no inj, has defibulator on left side CLINICAL INFORMATION: 43 years old Female with Lumbar radiculopathy TECHNIQUE: XR LUMBAR 3V AP/LAT/L5-S1, XR HIP 3V PELV+ AP/LAT LT Laterality: See below. Number of different views (projections): 3 views of the lumbar spine and 3 views of the LEFT hip. COMPARISON: None. RESULT: Lumbar spine: Counting reference: Lumbosacral junction. For the purposes of this report, L4-5 is considered the level of the iliac crest and there are 5 lumbar-type vertebrae. Anatomic Variants: None. Alignment: Mild levoconvex curvature of the lumbar spine. Alignment is otherwise satisfactory. Vertebral bodies: Vertebral body heights are maintained. Spine articulations: No significant disc space narrowing. Scattered small endplate osteophytes. Mild facet degenerative. Other: Bowel anastomotic sutures in the LEFT upper quadrant. Partially visualized LEFT chest wall AICD. Left hip: No fracture. Hip joint spaces are maintained. Sacroiliac joints and pubic symphysis are within normal limits. IUD in the pelvis. IMPRESSION IMPRESSION: 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 Web Development Instructor: CLAUDIA Transcribe Date/Time: Sep 11 2023 1:46P Dictated by : CATHY BELLA DO This examination was interpreted and the report reviewed and electronically signed by: CATHY BELLA DO on Sep 11 2023 1:52PM [facility] XR Pelvis and Hip - left AP and Lateral frogon 09-11-2023 * * *Final Report* * * DATE OF EXAM: Sep 11 2023 1:36PM WOX 5351 - XR HIP 3V PELV+ AP/LAT LT / PROCEDURE REASON: Lumbar radiculopathy * * * * Physician Interpretation * * * * EXAMINATION: XR LUMBAR 3V AP/LAT/L5-S1, XR HIP 3V PELV+ AP/LAT LT PATIENT/TECHNOLOGIST PROVIDED HISTORY: pain started yesterday lateral pelvis area and radiates down the side of her left leg no inj, has defibulator on left side CLINICAL INFORMATION: 43 years old Female with Lumbar radiculopathy TECHNIQUE: XR LUMBAR 3V AP/LAT/L5-S1, XR HIP 3V PELV+ AP/LAT LT Laterality: See below. Number of different views (projections): 3 views of the lumbar spine and 3 views of the LEFT hip. COMPARISON: None. RESULT: Lumbar spine: Counting reference: Lumbosacral junction. For the purposes of this report, L4-5 is considered the level of the iliac crest and there are 5 lumbar-type vertebrae. Anatomic Variants: None. Alignment: Mild levoconvex curvature of the lumbar spine. Alignment is otherwise satisfactory. Vertebral bodies: Vertebral body heights are maintained. Spine articulations: No significant disc space narrowing. Scattered small endplate osteophytes. Mild facet degenerative. Other: Bowel anastomotic sutures in the LEFT upper quadrant. Partially visualized LEFT chest wall AICD. Left hip: No fracture. Hip joint spaces are maintained. Sacroiliac joints and pubic symphysis are within normal limits. IUD in the pelvis. DIVISION OF RADIOLOGY Provider, [facility] [place] - 09/11/2023 * * *Final Report* * * DATE OF EXAM: Sep 11 2023 1:36PM WOX [id number] - XR HIP 3V PELV+ AP/LAT LT / PROCEDURE REASON: Lumbar radiculopathy * * * * Physician Interpretation * * * * EXAMINATION: XR LUMBAR 3V AP/LAT/L5-S1, XR HIP 3V PELV+ AP/LAT LT PATIENT/TECHNOLOGIST PROVIDED HISTORY: pain started yesterday lateral pelvis area and radiates down the side of her left leg no inj, has defibulator on left side CLINICAL INFORMATION: 43 years old Female with Lumbar radiculopathy TECHNIQUE: XR LUMBAR 3V AP/LAT/L5-S1, XR HIP 3V PELV+ AP/LAT LT Laterality: See below. Number of different views (projections): 3 views of the lumbar spine and 3 views of the LEFT hip. COMPARISON: None. RESULT: Lumbar spine: Counting reference: Lumbosacral junction. For the purposes of this report, L4-5 is considered the level of the iliac crest and there are 5 lumbar-type vertebrae. Anatomic Variants: None. Alignment: Mild levoconvex curvature of the lumbar spine. Alignment is otherwise satisfactory. Vertebral bodies: Vertebral body heights are maintained. Spine articulations: No significant disc space narrowing. Scattered small endplate osteophytes. Mild facet degenerative. Other: Bowel anastomotic sutures in the LEFT upper quadrant. Partially visualized LEFT chest wall AICD. Left hip: No fracture. Hip joint spaces are maintained. Sacroiliac joints and pubic symphysis are within normal limits. IUD in the pelvis. IMPRESSION IMPRESSION: 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 Web Development Instructor: [employer] Transcribe Date/Time: Sep 11 2023 1:46P Dictated by : CATHY BELLA DO This examination was interpreted and the report reviewed and electronically signed by: CATHY BELLA DO on Sep 11 2023 1:52PM EST [facility] INR FINGERSTICK B/Oon 2022 INR Coag (Sangeeta) [Relative time] 1.8 mdINR [facility] INR FINGERSTICK B/Oon 2022 INR Coag (Bld) [Relative time] 1.3 MDINR [facility] ICD CLINIC CHECKon 3 Detection Configuration (Vent) 2 - Zone [facility] FastVT_Detection Interval 272 ms [facility] FastVT_Therapy Configuration 0 ATP(s) + 1 Shock(s) [facility] ICD FastVT DetectionStatus ENABLED [facility] ICD-Device Mfg BSX [facility] [id number] 0 [facility] ICD-SHOCKSDELIVEREDVENTR ICULAR 0 [facility] Implant Date 05/16/2021 [facility] Implant Date 02/24/2014 [facility] Lead1 Mfg BSX [facility] Location RV [facility] MDT_PROG_TACHY_ZONE_DETE CTIONS_STATUS ENABLED [facility] Model A219 EMBLEM MRI S-ICD [facility] Model 3010 Q-Trak SQ Electrode [facility] Serial Number [id number] [facility] Serial Number [id number] [facility] Therapy Status (Vent) Enabled [facility] VF Zone Detection Interval 250 ms [facility] VF Zone Therapy Configuration 0 ATP(s) + 1 Shock(s) [facility] ICD REMOTE CHECKon 3 Detection Configuration (Vent) 2 - Zone [facility] FastVT_Detection Interval 273 ms [facility] FastVT_Therapy Configuration 0 ATP(s) + 1 Shock(s) [facility] ICD FastVT DetectionStatus ENABLED [facility] ICD-Device Mfg BSX [facility] [id number] 0 [facility] ICD-SHOCKSDELIVEREDVENTR ICULAR 0 [facility] Implant Date 05/16/2021 [facility] Implant Date 02/24/2014 [facility] Lead1 Mfg BSX [facility] Location RV [facility] MDT_PROG_TACHY_ZONE_DETE CTIONS_STATUS ENABLED [facility] Model A219 EMBLEM MRI S-ICD [facility] Model 3010 Q-Trak SQ Electrode [facility] Serial Number [id number] [facility] Serial Number [id number] [facility] Therapy Status (Vent) Enabled [facility] VF Zone Detection Interval 250 ms [facility] VF Zone Therapy Configuration 0 ATP(s) + 1 Shock(s) [facility] No Panel Informationon 08-05 BLANK _ [facility] BLANK _ [facility] INR FINGERSTICK B/Oon 2022 INR Coag (Bld) [Relative time] 2.0 mdINR [facility] ICD REMOTE CHECKon 3 Detection Configuration (Vent) 2 - Zone [facility] FastVT_Detection Interval 273 ms [facility] FastVT_Therapy Configuration 0 ATP(s) + 1 Shock(s) [facility] ICD FastVT DetectionStatus ENABLED [facility] ICD-Device Mfg BSX [facility] [id number] [facility] ICD-SHOCKSDELIVEREDVENTR ICULAR 0 [facility] Implant Date 05/16/2021 [facility] Implant Date 02/24/2014 [facility] Lead1 Mfg BSX [facility] Location RV [facility] MDT_PROG_TACHY_ZONE_DETE CTIONS_STATUS ENABLED [facility] Model A219 EMBLEM MRI S-ICD [facility] Model 3010 Q-Trak SQ Electrode [facility] Serial Number [id number] [facility] Serial Number [id number] [facility] Therapy Status (Vent) Enabled [facility] VF Zone Detection Interval 250 ms [facility] VF Zone Therapy Configuration 0 ATP(s) + 1 Shock(s) [facility] No Panel Informationon 07-25 [facility] _ [facility] INR FINGERSTICK B/Oon 2022 INR Coag (Bld) [Relative time] 1.8 mdinr [facility] INR FINGERSTICK B/Oon 2022 INR Coag (Bld) [Relative time] 1.6 mdINR [facility] Absolute lymphocyte countOrd ered By: Abhilash Aguilar on 05-03-2023 Lymphocytes Auto (Unsp spec) [#/Vol] 2.50 10*3/uL 0.83-4.51 [facility] Basophil percentageOrdered B y: Abhilash Aguilar on 05-03-2023 Basophil percentage 5-10 SEEN /hpf 0-5 [facility] Basophils/100 WBC (Bld) 0.9 % 0-1 [facility] Bilirubin [Mass/Vol] 0.50 mg/dL 0.20-1.00 [facility] Comment on above: For patients on eltr ombopag therapy, use of Dimension [place] TBIL is not recommended. Chloride [Moles/Vol] 109 mmol/L 98-107 [facility] Eosinophils/100 WBC (Bld) 4.3 % 0-5 [facility] Glucose [Mass/Vol] 88 mg/dL 74-106 [facility] Neutrophils (Bld) [#/Vol] 5.1 10*3/uL 2.0-7.7 [facility] Neutrophils/100 WBC (Bld) 58.2 % 47-70 [facility] Potassium [Moles/Vol] 3.7 mmol/L 3.5-5.1 [facility] Protein [Mass/Vol] 7.2 g/dL 6.4-8.2 [facility] Sodium [Moles/Vol] 139 mmol/L 136-145 [facility] WBC (Bld) [#/Vol] 8.8 10*3/uL 4.4-11.0 [facility] Bilirubin Test strip Ql (U)O rdered By: Abhilash Aguilar on 05-03-2023 Bilirubin Ql (U) Negative Negative [facility] Blood erythrocytes count (nu mber/volume)Ordered By: Abhilash Aguilar on 05-03-2023 RBC (Bld) [#/Vol] 4.57 10*6/uL 4.2-5.4 [facility] Blood hemoglobin measurement (mass/volume)Ordered By: Abhilash Aguilar on 05-03-2023 Hemoglobin (Bld) [Mass/Vol] 13.2 g/dL 12.0-15.0 [facility] Blood lymphocytes/100 leukoc ytesOrdered By: Abhilash Aguilar on 05-03-2023 Lymphocytes/100 WBC (Bld) 28.6 % 19-41 [facility] Blood monocytes/100 leukocyt esOrdered By: Abhilash Aguilar on 05-03-2023 Monocytes/100 WBC (Bld) 7.8 % 0-10 [facility] Blood platelet mean volumeOr dered By: Abhilash Aguilar on 05-03-2023 Platelet mean volume (Bld) [Entitic vol] 12.2 fL 6.2-12.0 [facility] Determination of erythrocyte mean corpuscular volume (MCV)Ordered By: Abhilash Aguilar on 05-03-2023 MCV (RBC) [Entitic vol] 88.8 fL 81-99 [facility] Hematocrit Auto (Bld) [Volum e fraction]Ordered By: Abhilash Aguilar on 05-03-2023 Hematocrit (Bld) [Volume fraction] 40.6 % 37-47 [facility] INR in Blood by Coagulation assayOrdered By: Abhilash Aguilar on 05-03-2023 INR Coag (Bld) [Relative time] 1.5 {INR} [facility] Ketones Test strip Ql (U)Ord ered By: Abhilash Aguilar on 05-03-2023 Ketones Ql (U) 5 mg/dl Negative [facility] Laboratory - Chemistry and C hemistry - challengeOrdered By: Abhilash Aguilar on 05-03-2023 HCG ( test) Ql (U) Negative [facility] Comment on above: Very dilute urine sp ecimens, as indicated by a low specificgravity, may not contain area representative levels of hCG. If is still suspected, a first morning urinespecimen should be collected 48 hours later and tested. ALP [Catalytic activity/Vol] 67 U/L 45-117 [facility] ALT [Catalytic activity/Vol] 26 U/L 13-56 [facility] CO2 [Moles/Vol] 25.0 mmol/L 21.0-32.0 [facility] Globulin (S) [Mass/Vol] 3.6 g/dL 2.2-4.2 [facility] Lipase [Catalytic activity/Vol] 108 U/L 13-75 [facility] Comment on above: Please note:LIPASE r evised reference range effective 23. New Lipase methodology. Expected to produce lower values than the previous assay method. NEW Reference Range: 13 - 75 U/L Urea nitrogen/Creatinine [Mass ratio] 19.8 mg/mg 10-20 [facility] Laboratory - CoagulationOrde red By: Abhilash Aguilar on 05-03-2023 PT Coag (PPP) [Time] 18.1 s 11.7-14.9 [facility] Laboratory - Hematology and Cell countsOrdered By: Abhilash Aguilar on 05-03-2023 Erythrocyte distribution width (RBC) [Entitic vol] 45.2 fL 35.1-43.9 [facility] Erythrocyte distribution width (RBC) [Ratio] 14.1 % 11.6-14.6 [facility] Immature granulocytes/100 WBC (Bld) 0.200 % 0.0-0.9 [facility] Comment on above: IG% - Immature Granu locytes (promyelocytes, myelocytes and metamyelocytes) > 1% indicates that a LEFT SHIFT is Present. MCH (RBC) [Entitic mass] 28.9 pg 27.0-32.0 [facility] Nucleated RBC/100 WBC (Bld) [Ratio] 0 % 0-5 [facility] MCHC Auto (RBC) [Mass/Vol]Or dered By: Abhilash Aguilar on 05-03-2023 MCHC (RBC) [Mass/Vol] 32.5 g/dL 32-36 [facility] Mucus LM Ql (Urine sed)Order ed By: Abhilash Aguilar on 05-03-2023 Mucus Ql (Urine sed) 0 SEEN /hpf [facility] Nitrite Test strip Ql (U)Ord ered By: Abhilash Aguilar on 05-03-2023 Nitrite Ql (U) Negative Negative [facility] No Panel InformationOrdered By: Abhilash Aguilar on 05-03-2023 Estimated Creatinine Clearance Calc 85.96 ml/min [facility] Estimated GFR (MDRD) Amer 93 mL/min >60 [facility] Comment on above: GFR Calc Estimated GFR (MDRD) Non-Af Amer 77 mL/min >60 [facility] Comment on above: Non- GFR Calc Platelets bldOrdered By: Ann Aguilar on 05-03-2023 Platelets (Bld) [#/Vol] 305 10*3/uL 150-450 [facility] Protein Test strip Ql (U)Ord ered By: Abhilash Aguilar on 05-03-2023 Protein Ql (U) Negative Negative [facility] Serum or plasma albumin eunice urement (mass/volume)Ordered By: Abhilash Aguilar on 05-03-2023 Albumin [Mass/Vol] 3.6 g/dL 3.2-5.0 [facility] Serum or plasma albumin/glob ulin mass ratioOrdered By: Abhilash Aguilar on 05-03-2023 Albumin/Globulin [Mass ratio] 1.0 {ratio} 0.9-2.4 [facility] Serum or plasma calcium eunice urement (mass/volume)Ordered By: Abhilash Aguilar on 05-03-2023 Calcium [Mass/Vol] 9.1 mg/dL 8.5-10.1 [facility] Serum or plasma creatinine m easurement (mass/volume)Ordered By: Abhilash Aguilar on 05-03-2023 Creatinine [Mass/Vol] 0.86 mg/dL 0.55-1.02 [facility] Comment on above: The validity of the calculated GFR & GFRAA in patients over 70 years has not been determined. Clinical correlation is essential. Serum or plasma urea nitroge n measurement (mass/volume)Ordered By: Abhilash Aguilar on 05-03-2023 Urea nitrogen [Mass/Vol] 17 mg/dL 7-18 [facility] Squamous epithelial cells de tection in urine sediment by light microscopyOrdered By: Abhilash Aguilar on 05-03-2023 Epithelial cells.squamous LM Ql (Urine sed) 0-5 SEEN /hpf 5-10 [facility] Thin prep Papanicolaou smear with manual screeningOrdered By: Abhilash Aguilar on 05-03-2023 Thin prep Papanicolaou smear with manual screening 17 U/L 15-37 [facility] Thin prep Papanicolaou smear with manual screening 5 5-15 [facility] Urine blood detectionOrdered By: Abhilash Aguilar on 05-03-2023 RBC Ql (U) Negative Negative [facility] RBC Ql (U) 0 SEEN /hpf 0-5 [facility] Urine clarityOrdered By: Ann Aguilar on 05-03-2023 Clarity (U) Clear Clear [facility] Urine color determinationOrd ered By: Abhilash Aguilar on 05-03-2023 Color (U) Yellow Yellow [facility] Urine glucose detectionOrder ed By: Abhilash Aguilar on 05-03-2023 Glucose Ql (U) Normal mg/dl Normal [facility] Urine leukocyte esterase det ection by dipstickOrdered By: Abhilash Aguilar on 05-03-2023 Leukocyte esterase Test strip Ql (U) 500 /ul Negative [facility] Urine pHOrdered By: Abhilash damian on 05-03-2023 pH (U) 6.0 [pH] 5.0 - 8.0 [facility] Urine sediment bacteria coun t by microscopy (number/high power field)Ordered By: Abhilash Aguilar on 05-03-2023 Bacteria LM.HPF (Urine sed) [#/Area] 1 /[HPF] None Seen [facility] Urine specific gravity measu rementOrdered By: Abhilash Aguilar on 05-03-2023 Specific gravity (U) [Rel density] 1.015 1.002-1.030 [facility] Urobilinogen Auto test strip Ql (U)Ordered By: Abhilash Aguilar on 05-03-2023 Urobilinogen Ql (U) Normal mg/dl Normal [facility] ICD REMOTE CHECKon 3 Detection Configuration (Vent) 2 - Zone [facility] FastVT_Detection Interval 273 ms [facility] FastVT_Therapy Configuration 0 ATP(s) + 1 Shock(s) [facility] ICD FastVT DetectionStatus ENABLED [facility] ICD-Device Mfg BSX [facility] [id number] [facility] ICD-SHOCKSDELIVEREDVENTR ICULAR 0 [facility] Implant Date 05/16/2021 [facility] Implant Date 02/24/2014 [facility] Lead1 Mfg BSX [facility] Location RV [facility] MDT_PROG_TACHY_ZONE_DETE CTIONS_STATUS ENABLED [facility] Model A219 EMBLEM MRI S-ICD [facility] Model 3010 Q-Trak SQ Electrode [facility] Serial Number [id number] [facility] Serial Number [id number] [facility] Therapy Status (Vent) Enabled [facility] VF Zone Detection Interval 250 ms [facility] VF Zone Therapy Configuration 0 ATP(s) + 1 Shock(s) [facility] No Panel Informationon 04-20 BLANK _ [facility] URINE CULTUREon 03-28-2023 Bacteria identified Cx Nom (U) <10,000 CFU/ml Mixed microbiota Abnormal [facility] UA DIP, URINE (POC)on 2022 BILIRUBIN UA (POCT) Small Abnormal Negative [facility] CLARITY UA (POCT) Clear [facility] COLOR UA (POCT) Yellow [facility] GLUCOSE UA (POCT) Negative Negative mg/dL [facility] HEMOGLOBIN/BLOOD UA (POCT) Negative Negative [facility] KETONE UA (POCT) 15 mg/dL Abnormal Negative mg/dL [facility] LEUKOCYTES UA (POCT) Trace Abnormal Negative [facility] NITRITE UA (POCT) Negative Negative [facility] PH UA (POCT) 5.5 4.5 - 8.0 [facility] Protein Ql (U) 30 mg/dL Abnormal Negative mg/dL [facility] SPECIFIC GRAVITY UA (POCT) >=1.030 1.005 - 1.030 [facility] UROBILINOGEN UA (POCT) 0.2 E.U./dL Fátima l E.U./dL [facility] Urinalysis complete panel (U )on 03-26-2023 Bacteria LM.HPF (Urine sed) [#/Area] Rare Abnormal None Seen /HPF [facility] Bilirubin Ql (U) Negative Negative [facility] Calcium Oxalate Crystals Few Abnormal Non e Seen /HPF [facility] Clarity (Unsp spec) Cloudy Abnormal Clear [facility] Color (U) Yellow Yellow [facility] Epithelial cells LM.HPF (Urine sed) [#/Area] Few [facility] Glucose Test strip (U) [Mass/Vol] Negative Trace, Negative [facility] Hemoglobin Ql (U) Negative Negative, Trace [facility] Ketones Ql (U) 1+ Abnormal Trace, Negative [facility] Leukocyte esterase Test strip Ql (U) 500 Yuliana/uL Abnormal Negative, 25 Yuliana/uL [facility] Nitrite Ql (U) Negative Negative [facility] pH (U) 6.0 [pH] 5.0 - 8.0 [facility] Protein (U) [Mass/Vol] 1+ Abnormal Trace , Negative [facility] RBC LM.HPF (Urine sed) [#/Area] 0-3 /HPF 0-3 /HPF [facility] Specific gravity (U) [Rel density] 1.041 High 1.005 - 1.030 [facility] Urobilinogen Ql (U) 1+ Abnormal Negative [facility] WBC LM.HPF (Urine sed) [#/Area] 11-25 /HPF Abnormal 0-5 /HPF [facility] CBC W Auto Differential pane l (Bld)on 03-20-2023 Basophils (Bld) [#/Vol] 0.05 10*3/uL <0.11 k/uL [facility] Basophils/100 WBC (Bld) 0.8 % C [facility] Differential cell count method Nom (Bld) Auto [facility] Eosinophils (Bld) [#/Vol] 0.35 10*3/uL <0.46 k/uL [facility] Eosinophils/100 WBC (Bld) 5.6 % [facility] Erythrocyte distribution width (RBC) [Ratio] 14.6 % 11.5 - 15.0 % [facility] Hematocrit (Bld) [Volume fraction] 38.0 % 36.0 - 46.0 % [facility] Hemoglobin (Bld) [Mass/Vol] 13.0 g/dL 11.5 - 15.5 g/dL [facility] Immature granulocytes (Bld) [#/Vol] <0.10 k/uL [facility] Immature granulocytes/100 WBC (Bld) 0.2 % [facility] Lymphocytes (Bld) [#/Vol] 2.14 10*3/uL 1.00 - 4.00 k/uL [facility] Lymphocytes/100 WBC (Bld) 34.4 % [facility] MCH (RBC) [Entitic mass] 29.4 pg 26. 0 - 34.0 pg [facility] MCHC (RBC) [Mass/Vol] 34.2 g/dL 30.5 - 36.0 g/dL [facility] MCV (RBC) [Entitic vol] 86.0 fL 80.0 - 100.0 fL [facility] Monocytes (Bld) [#/Vol] 0.49 10*3/uL <0.87 k/uL [facility] Monocytes/100 WBC (Bld) 7.9 % [facility] Neutrophils (Bld) [#/Vol] 3.18 10*3/uL 1.45 - 7.50 k/uL [facility] Neutrophils/100 WBC (Bld) 51.1 % [facility] Nucleated RBC (Bld) [#/Vol] <0.01 k/uL [facility] Nucleated RBC/100 WBC (Bld) [Ratio] 0.0 /100 WBC [facility] Platelet mean volume (Bld) [Entitic vol] 12.6 fL 9.0 - 12.7 fL [facility] Platelets (Bld) [#/Vol] 306 10*3/uL 150 - 400 k/uL [facility] RBC (Bld) [#/Vol] 4.42 10*6/uL 3.90 - 5.2 0 m/uL [facility] WBC (Bld) [#/Vol] 6.22 10*3/uL 3.70 - 11. 00 k/uL [facility] Comprehensive metabolic 2000 panelon 03-20-2023 Albumin [Mass/Vol] 4.0 g/dL 3.9 - 4.9 g/dL [facility] ALP [Catalytic activity/Vol] 73 U/L 34 - 123 U/L [facility] ALT [Catalytic activity/Vol] 17 U/L 7 - 38 U/L [facility] Anion gap [Moles/Vol] 10 mmol/L 9 - 18 mmol/L [facility] AST [Catalytic activity/Vol] 18 U/L 13 - 35 U/L [facility] Bilirubin [Mass/Vol] 0.4 mg/dL 0.2 - 1 .3 mg/dL [facility] Calcium [Mass/Vol] 9.1 mg/dL 8.5 - 10. 2 mg/dL [facility] Chloride [Moles/Vol] 105 mmol/L 97 - 10 5 mmol/L [facility] CO2 [Moles/Vol] 24 mmol/L 22 - 30 mmol/L [facility] Creatinine [Mass/Vol] 0.80 mg/dL 0.58 - 0.96 mg/dL [facility] Estimated Glomerular Filtration Rate 94 mL/min/1.73m >=60 mL/min/1.73m [facility] Glucose [Mass/Vol] 103 mg/dL High 74 - 99 mg/dL [facility] Potassium [Moles/Vol] 3.7 mmol/L 3.7 - 5.1 mmol/L [facility] Protein [Mass/Vol] 6.2 g/dL Low 6.3 - 8.0 g/dL [facility] Sodium [Moles/Vol] 139 mmol/L 136 - 144 mmol/L [facility] Urea nitrogen [Mass/Vol] 13 mg/dL 7 - 21 mg/d L [facility] UA DIP, URINE (POC)on 2022 BILIRUBIN UA (POCT) Moderate Abnormal Negative [facility] CLARITY UA (POCT) Clear [facility] COLOR UA (POCT) Other [facility] GLUCOSE UA (POCT) Negative Negative mg/dL [facility] HEMOGLOBIN/BLOOD UA (POCT) Moderate Abnormal Negative [facility] KETONE UA (POCT) >=160 Abnormal Negative mg/dL [facility] LEUKOCYTES UA (POCT) Trace Abnormal Negative [facility] NITRITE UA (POCT) Negative Negative [facility] PH UA (POCT) 5.5 4.5 - 8.0 [facility] Protein Ql (U) Negative Negative mg/dL [facility] SPECIFIC GRAVITY UA (POCT) 1.025 1.005 - 1.030 [facility] UROBILINOGEN UA (POCT) 0.2 E.U./dL Fátima l E.U./dL [facility] INR (POC)on 03-16-2023 INR Coag (PPP) [Relative time] 1.8 {INR} High 0.8 - 1.2 [facility] Internal Quality Check Acceptable [facility] Absolute lymphocyte countOrd ered By: Dr. Vaughn on 03-07-2023 Lymphocytes Auto (Unsp spec) [#/Vol] 2.17 10*3/uL 0.83-4.51 [facility] Basophil percentageOrdered B y: Dr. Vaughn on 03-07-2023 Basophils/100 WBC (Bld) 1.2 % 0-1 [facility] Chloride [Moles/Vol] 111 mmol/L 98-107 [facility] Eosinophils/100 WBC (Bld) 4.1 % 0-5 [facility] Glucose [Mass/Vol] 100 mg/dL 74-106 [facility] Comment on above: Fasting Glucose resu lt from 100 to 125 mg/dL suggests IMPAIRED HOMEOSTASIS per A.D.A. criteria. Neutrophils (Bld) [#/Vol] 3.5 10*3/uL 2.0-7.7 [facility] Neutrophils/100 WBC (Bld) 53.2 % 47-70 [facility] Potassium [Moles/Vol] 3.4 mmol/L 3.5-5.1 [facility] Sodium [Moles/Vol] 141 mmol/L 136-145 [facility] WBC (Bld) [#/Vol] 6.7 10*3/uL 4.4-11.0 [facility] Blood erythrocytes count (nu mber/volume)Ordered By: Dr. Vaughn on 03-07-2023 RBC (Bld) [#/Vol] 4.21 10*6/uL 4.2-5.4 [facility] Blood hemoglobin measurement (mass/volume)Ordered By: Dr. Vaughn on 03-07-2023 Hemoglobin (Bld) [Mass/Vol] 12.3 g/dL 12.0-15.0 [facility] Blood lymphocytes/100 leukoc ytesOrdered By: Dr. Vaughn on 03-07-2023 Lymphocytes/100 WBC (Bld) 32.6 % 19-41 [facility] Blood monocytes/100 leukocyt esOrdered By: Dr. Vaughn on 03-07-2023 Monocytes/100 WBC (Bld) 8.6 % 0-10 [facility] Blood platelet mean volumeOr dered By: Dr. Vaughn on 03-07-2023 Platelet mean volume (Bld) [Entitic vol] 12.2 fL 6.2-12.0 [facility] Determination of erythrocyte mean corpuscular volume (MCV)Ordered By: Dr. Vaughn on 03-07-2023 MCV (RBC) [Entitic vol] 86.9 fL 81-99 [facility] Hematocrit Auto (Bld) [Volum e fraction]Ordered By: Dr. Vaughn on 03-07-2023 Hematocrit (Bld) [Volume fraction] 36.6 % 37-47 [facility] - Chemistry and C hemistry - challengeOrdered By: Dr. Vaughn on 03-07-2023 CO2 [Moles/Vol] 23.0 mmol/L 21.0-32.0 [facility] Urea nitrogen/Creatinine [Mass ratio] 22.2 mg/mg 10-20 [facility] - Hematology and Cell countsOrdered By: Dr. Vaughn on 03-07-2023 Erythrocyte distribution width (RBC) [Entitic vol] 44.8 fL 35.1-43.9 [facility] Erythrocyte distribution width (RBC) [Ratio] 14.3 % 11.6-14.6 [facility] Immature granulocytes/100 WBC (Bld) 0.300 % 0.0-0.9 [facility] Comment on above: IG% - Immature Granu locytes (promyelocytes, myelocytes and metamyelocytes) > 1% indicates that a LEFT SHIFT is Present. MCH (RBC) [Entitic mass] 29.2 pg 27.0-32.0 [facility] Nucleated RBC/100 WBC (Bld) [Ratio] 0 % 0-5 [facility] MCHC Auto (RBC) [Mass/Vol]Or dered By: Dr. Vaughn on 03-07-2023 MCHC (RBC) [Mass/Vol] 33.6 g/dL 32-36 [facility] No Panel InformationOrdered By: Dr. Vaughn on 03-07-2023 Estimated Creatinine Clearance Calc 78.65 ml/min [facility] Estimated GFR (MDRD) Amer 83 mL/min >60 [facility] Comment on above: GFR Calc Estimated GFR (MDRD) Non-Af Amer 69 mL/min >60 [facility] Comment on above: Non- GFR Calc Troponin I High Sensitivity 12 pg/mL 3.0-54.0 [facility] Comment on above: Please Note: New Toña t Units and Gender Specific Reference Ranges. For more information see Policy Stat Procedure [place] High Sensitivity Troponin (TNIH) and attachments. Platelets bldOrdered By: Dr. Vaughn on 03-07-2023 Platelets (Bld) [#/Vol] 314 10*3/uL 150-450 [facility] Serum or plasma calcium eunice urement (mass/volume)Ordered By: Dr. Vaughn on 03-07-2023 Calcium [Mass/Vol] 9.2 mg/dL 8.5-10.1 [facility] Serum or plasma creatinine m easurement (mass/volume)Ordered By: Dr. Vaughn on 03-07-2023 Creatinine [Mass/Vol] 0.94 mg/dL 0.55-1.02 [facility] Comment on above: The validity of the calculated GFR & GFRAA in patients over 70 years has not been determined. Clinical correlation is essential. Serum or plasma urea nitroge n measurement (mass/volume)Ordered By: Dr. Vaughn on 03-07-2023 Urea nitrogen [Mass/Vol] 21 mg/dL - [facility] Thin prep Papanicolaou smear with manual screeningOrdered By: Dr. Vaughn on 03-07-2023 Thin prep Papanicolaou smear with manual screening 7 5-15 [facility] ICD CLINIC CHECKon 3 Detection Configuration (Vent) 2 - Zone [facility] FastVT_Detection Interval 272 ms [facility] FastVT_Therapy Configuration 0 ATP(s) + 1 Shock(s) [facility] ICD FastVT DetectionStatus ENABLED [facility] ICD-Device Mfg BSX [facility] ICD-Rhythm VS regular rhythm [facility] [id number] 0 [facility] ICD-SHOCKSDELIVEREDVENTR ICULAR 0 [facility] Implant Date 05/16/2021 [facility] Implant Date 02/24/2014 [facility] Lead1 Mfg BSX [facility] Location RV [facility] MDT_PROG_TACHY_ZONE_DETE CTIONS_STATUS ENABLED [facility] Model A219 EMBLEM MRI S-ICD [facility] Model 3010 Q-Trak SQ Electrode [facility] Pacemaker Dependent? NO [facility] Serial Number [id number] [facility] Serial Number [id number] [facility] Therapy Status (Vent) Enabled [facility] VF Zone Detection Interval 250 ms [facility] VF Zone Therapy Configuration 0 ATP(s) + 1 Shock(s) [facility] No Panel Informationon 02-18 BLANK _ [facility] No Panel Informationon 12-11 [facility] ICD REMOTE CHECKon 3 Detection Configuration (Vent) 2 - Zone [facility] FastVT_Detection Interval 273 ms [facility] FastVT_Therapy Configuration 0 ATP(s) + 1 Shock(s) [facility] ICD FastVT DetectionStatus ENABLED [facility] ICD-Device Mfg BSX [facility] [id number] 0 [facility] ICD-SHOCKSDELIVEREDVENTR ICULAR 0 [facility] Implant Date 05/16/2021 [facility] Implant Date 02/24/2014 [facility] Lead1 Mfg BSX [facility] Location RV [facility] MDT_PROG_TACHY_ZONE_DETE CTIONS_STATUS ENABLED [facility] Model A219 EMBLEM MRI S-ICD [facility] Model 3010 Q-Trak SQ Electrode [facility] Serial Number [id number] [facility] Serial Number [id number] [facility] Therapy Status (Vent) Enabled [facility] VF Zone Detection Interval 250 ms [facility] VF Zone Therapy Configuration 0 ATP(s) + 1 Shock(s) [facility] No Panel Informationon 10-28 BLANK _ [facility] Absolute lymphocyte countOrd ered By: Dr. Brower on 10-26-2022 Lymphocytes Auto (Unsp spec) [#/Vol] 2.21 10*3/uL 0.83-4.51 [facility] Basophil percentageOrdered B y: Dr. Brower on 10-26-2022 Basophils/100 WBC (Bld) 0.6 % 0-1 [facility] Chloride [Moles/Vol] 108 mmol/L 98-107 [facility] Eosinophils/100 WBC (Bld) 2.5 % 0-5 [facility] Glucose [Mass/Vol] 162 mg/dL 74-106 [facility] Comment on above: Fasting Glucose resu lt greater than or equal to 126 mg/dL suggests DIABETES MELLITUS per A.D.A. criteria. Neutrophils (Bld) [#/Vol] 7.0 10*3/uL 2.0-7.7 [facility] Neutrophils/100 WBC (Bld) 68.3 % 47-70 [facility] Potassium [Moles/Vol] 4.1 mmol/L 3.5-5.1 [facility] Sodium [Moles/Vol] 139 mmol/L 136-145 [facility] WBC (Bld) [#/Vol] 10.2 10*3/uL 4.4-11.0 [facility] Blood erythrocytes count (nu mber/volume)Ordered By: Dr. Brower on 10-26-2022 RBC (Bld) [#/Vol] 5.10 10*6/uL 4.2-5.4 [facility] Blood hemoglobin measurement (mass/volume)Ordered By: Dr. Brower on 10-26-2022 Hemoglobin (Bld) [Mass/Vol] 14.9 g/dL 12.0-15.0 [facility] Blood lymphocytes/100 leukoc ytesOrdered By: Dr. Brower on 10-26-2022 Lymphocytes/100 WBC (Bld) 21.7 % 19-41 [facility] Blood monocytes/100 leukocyt esOrdered By: Dr. Brower on 10-26-2022 Monocytes/100 WBC (Bld) 6.7 % 0-10 [facility] Blood platelet mean volumeOr dered By: Dr. Brower on 10-26-2022 Platelet mean volume (Bld) [Entitic vol] 11.1 fL 6.2-12.0 [facility] Determination of erythrocyte mean corpuscular volume (MCV)Ordered By: Dr. Brower on 10-26-2022 MCV (RBC) [Entitic vol] 87.3 fL 81-99 [facility] Hematocrit Auto (Bld) [Volum e fraction]Ordered By: Dr. Brower on 10-26-2022 Hematocrit (Bld) [Volume fraction] 44.5 % 37-47 [facility] - Chemistry and C hemistry - challengeOrdered By: Dr. Borwer on 10-26-2022 CO2 [Moles/Vol] 24.0 mmol/L 21.0-32.0 [facility] Magnesium [Mass/Vol] 2.1 mg/dL 1.6-2.6 [facility] Urea nitrogen/Creatinine [Mass ratio] 22.8 mg/mg 10-20 [facility] - Hematology and Cell countsOrdered By: Dr. Brower on 10-26-2022 Erythrocyte distribution width (RBC) [Entitic vol] 43.0 fL 35.1-43.9 [facility] Erythrocyte distribution width (RBC) [Ratio] 13.4 % 11.6-14.6 [facility] Immature granulocytes/100 WBC (Bld) 0.200 % 0.0-0.9 [facility] Comment on above: IG% - Immature Granu locytes (promyelocytes, myelocytes and metamyelocytes) > 1% indicates that a LEFT SHIFT is Present. MCH (RBC) [Entitic mass] 29.2 pg 27.0-32.0 [facility] Nucleated RBC/100 WBC (Bld) [Ratio] 0 % 0-5 [facility] MCHC Auto (RBC) [Mass/Vol]Or dered By: Dr. Brower on 10-26-2022 MCHC (RBC) [Mass/Vol] 33.5 g/dL 32-36 [facility] No Panel InformationOrdered By: Dr. Brower on 10-26-2022 Estimated Creatinine Clearance Calc 88.01 ml/min [facility] Estimated GFR (MDRD) Amer 96 mL/min >60 [facility] Comment on above: GFR Calc Estimated GFR (MDRD) Non-Af Amer 80 mL/min >60 [facility] Comment on above: Non- GFR Calc Platelets bldOrdered By: Dr. Brower on 10-26-2022 Platelets (Bld) [#/Vol] 346 10*3/uL 150-450 [facility] Serum or plasma calcium eunice urement (mass/volume)Ordered By: Dr. Brower on 10-26-2022 Calcium [Mass/Vol] 8.6 mg/dL 8.5-10.1 [facility] Serum or plasma creatinine m easurement (mass/volume)Ordered By: Dr. Brower on 10-26-2022 Creatinine [Mass/Vol] 0.84 mg/dL 0.55-1.02 [facility] Comment on above: The validity of the calculated GFR & GFRAA in patients over 70 years has not been determined. Clinical correlation is essential. Serum or plasma urea nitroge n measurement (mass/volume)Ordered By: Dr. Brower on 10-26-2022 Urea nitrogen [Mass/Vol] 19 mg/dL 718 [facility] Thin prep Papanicolaou smear with manual screeningOrdered By: Dr. Brower on 10-26-2022 Thin prep Papanicolaou smear with manual screening 7 5-15 [facility] ICD REMOTE CHECKon 3 Detection Configuration (Vent) 2 - Zone [facility] FastVT_Detection Interval 273 ms [facility] FastVT_Therapy Configuration 0 ATP(s) + 1 Shock(s) [facility] ICD FastVT DetectionStatus ENABLED [facility] ICD-Device Mfg BSX [facility] [id number] 0 [facility] ICD-SHOCKSDELIVEREDVENTR ICULAR 0 [facility] Implant Date 05/16/2021 [facility] Implant Date 02/24/2014 [facility] Lead1 Mfg BSX [facility] Location RV [facility] MDT_PROG_TACHY_ZONE_DETE CTIONS_STATUS ENABLED [facility] Model A219 EMBLEM MRI S-ICD [facility] Model 3010 Q-Trak SQ Electrode [facility] Serial Number [id number] [facility] Serial Number [id number] [facility] Therapy Status (Vent) Enabled [facility] VF Zone Detection Interval 250 ms [facility] VF Zone Therapy Configuration 0 ATP(s) + 1 Shock(s) [facility] No Panel Informationon 10-22 BLANK _ [facility] XR Chest PA and Lateralon IMPRESSION: No persistent or developing acute abnormality Web Development Instructor: CLAUDIA Transcribe Date/Time: Oct 02 2022 8:43A Dictated by : YANELI DOTSON MD This examination was interpreted and the report reviewed and electronically signed by: YANELI DOTSON MD on Oct 02 2022 8:43AM [facility] DIVISION OF RADIOLOGY * * *Final Report* * * DATE OF EXAM: Oct 02 2022 8:36AM WOX 5291 - XR CHEST 2V FRONTAL/LAT / PROCEDURE REASON: multiple diagnoses * * * * Physician Interpretation * * * * EXAMINATION: CHEST RADIOGRAPH (2 VIEW FRONTAL & LATERAL) CLINICAL HISTORY: Class 3 obesity with alveolar hypoventilation, serious comorbidity, 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.9 in adult (HCC) Class 3 obesity with alveolar hypoventilation, serious comorbidity, 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.9 in adult (HCC) MQ: XC2_6 EXAM DATE/TIME: 10/02/2022 8:36 AM COMPARISON: 12/06/2019 RESULT: Lines, tubes, and devices: Mediastinal wires are in place Lungs and pleura: No consolidation. No lung mass. No persistent pleural effusion. No pneumothorax. Cardiomediastinal silhouette: Normal cardiomediastinal silhouette. Bones and soft tissues: Unremarkable. DIVISION OF RADIOLOGY Provider, [facility] - 10/02/2022 * * *Final Report* * * DATE OF EXAM: Oct 02 2022 8:36AM WOX 5291 - XR CHEST 2V FRONTAL/LAT / PROCEDURE REASON: multiple diagnoses * * * * Physician Interpretation * * * * EXAMINATION: CHEST RADIOGRAPH (2 VIEW FRONTAL & LATERAL) CLINICAL HISTORY: Class 3 obesity with alveolar hypoventilation, serious comorbidity, 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.9 in adult (HCC) Class 3 obesity with alveolar hypoventilation, serious comorbidity, 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.9 in adult (HCC) MQ: XC2_6 EXAM DATE/TIME: 10/02/2022 8:36 AM COMPARISON: 12/06/2019 RESULT: Lines, tubes, and devices: Mediastinal wires are in place Lungs and pleura: No consolidation. No lung mass. No persistent pleural effusion. No pneumothorax. Cardiomediastinal silhouette: Normal cardiomediastinal silhouette. Bones and soft tissues: Unremarkable. IMPRESSION IMPRESSION: No persistent or developing acute abnormality Web Development Instructor: PSCJudith Transcribe Date/Time: Oct 02 2022 8:43A Dictated by : YANELI DOTSON MD This examination was interpreted and the report reviewed and electronically signed by: YANELI DOTSON MD on Oct 02 2022 8:43AM EST [facility] Radiology Study observation (narrative) [facility] XR Chest PA and LateralOrder ed By: [facility] Provider on 10-02-2022 [facility] URINE CULTUREon 09-30-2022 Bacteria identified Cx Nom (U) <10,000 CFU/ml Mixed microbiota Abnormal [facility] UA DIP, URINE (POC)on 2021 BILIRUBIN UA (POCT) Negative Negative [facility] CLARITY UA (POCT) Clear [facility] COLOR UA (POCT) Yellow [facility] GLUCOSE UA (POCT) Negative Negative mg/dL [facility] HEMOGLOBIN/BLOOD UA (POCT) Negative Negative [facility] KETONE UA (POCT) Trace Negative mg/dL [facility] LEUKOCYTES UA (POCT) Small Abnormal Negative [facility] NITRITE UA (POCT) Negative Negative [facility] PH UA (POCT) 5.0 4.5 - 8.0 [facility] Protein Ql (U) Negative Negative mg/dL [facility] SPECIFIC GRAVITY UA (POCT) 1.025 1.005 - 1.030 [facility] UROBILINOGEN UA (POCT) 0.2 E.U./dL Fátima l E.U./dL [facility] US ABD RT UPPER QUADRANTon 1 11-25-2021 [facility] Absolute lymphocyte countOrd ered By: Dr. Ferguson on 09-12-2022 Lymphocytes Auto (Unsp spec) [#/Vol] 2.93 10*3/uL 0.83-4.51 [facility] Basophil percentageOrdered B y: Dr. Ferguson on 09-12-2022 Basophils/100 WBC (Bld) 0.5 % 0-1 [facility] Chloride [Moles/Vol] 105 mmol/L 98-107 [facility] Eosinophils/100 WBC (Bld) 1.4 % 0-5 [facility] Glucose [Mass/Vol] 100 mg/dL 74-106 [facility] Comment on above: Fasting Glucose resu lt from 100 to 125 mg/dL suggests IMPAIRED HOMEOSTASIS per A.D.A. criteria. Neutrophils (Bld) [#/Vol] 8.0 10*3/uL 2.0-7.7 [facility] Neutrophils/100 WBC (Bld) 67.1 % 47-70 [facility] Potassium [Moles/Vol] 3.6 mmol/L 3.5-5.1 [facility] Sodium [Moles/Vol] 138 mmol/L 136-145 [facility] WBC (Bld) [#/Vol] 11.9 10*3/uL 4.4-11.0 [facility] Blood erythrocytes count (nu mber/volume)Ordered By: Dr. Ferguson on 09-12-2022 RBC (Bld) [#/Vol] 5.00 10*6/uL 4.2-5.4 [facility] Blood hemoglobin measurement (mass/volume)Ordered By: Dr. Ferguson on 09-12-2022 Hemoglobin (Bld) [Mass/Vol] 14.5 g/dL 12.0-15.0 [facility] Blood lymphocytes/100 leukoc ytesOrdered By: Dr. Ferguson on 09-12-2022 Lymphocytes/100 WBC (Bld) 24.7 % 19-41 [facility] Blood monocytes/100 leukocyt esOrdered By: Dr. Ferguson on 09-12-2022 Monocytes/100 WBC (Bld) 6.0 % 0-10 [facility] Blood platelet mean volumeOr dered By: Dr. Ferguson on 09-12-2022 Platelet mean volume (Bld) [Entitic vol] 11.0 fL 6.2-12.0 [facility] Determination of erythrocyte mean corpuscular volume (MCV)Ordered By: Dr. Ferguson on 09-12-2022 MCV (RBC) [Entitic vol] 87.0 fL 81-99 [facility] Hematocrit Auto (Bld) [Volum e fraction]Ordered By: Dr. Ferguson on 09-12-2022 Hematocrit (Bld) [Volume fraction] 43.5 % 37-47 [facility] - Chemistry and C hemistry - challengeOrdered By: Dr. Ferguson on 09-12-2022 CO2 [Moles/Vol] 26.0 mmol/L 21.0-32.0 [facility] Magnesium [Mass/Vol] 1.9 mg/dL 1.6-2.6 [facility] Urea nitrogen/Creatinine [Mass ratio] 34.8 mg/mg 10-20 [facility] - Hematology and Cell countsOrdered By: Dr. Ferguson on 09-12-2022 Erythrocyte distribution width (RBC) [Entitic vol] 41.3 fL 35.1-43.9 [facility] Erythrocyte distribution width (RBC) [Ratio] 13.2 % 11.6-14.6 [facility] Immature granulocytes/100 WBC (Bld) 0.300 % 0.0-0.9 [facility] Comment on above: IG% - Immature Granu locytes (promyelocytes, myelocytes and metamyelocytes) > 1% indicates that a LEFT SHIFT is Present. MCH (RBC) [Entitic mass] 29.0 pg 27.0-32.0 [facility] Nucleated RBC/100 WBC (Bld) [Ratio] 0 % 0-5 [facility] MCHC Auto (RBC) [Mass/Vol]Or dered By: Dr. Ferguson on 09-12-2022 MCHC (RBC) [Mass/Vol] 33.3 g/dL 32-36 [facility] No Panel InformationOrdered By: Dr. Ferguson on 09-12-2022 Estimated Creatinine Clearance Calc 92.41 ml/min [facility] Estimated GFR (MDRD) Amer 101 mL/min >60 [facility] Comment on above: GFR Calc Estimated GFR (MDRD) Non-Af Amer 83 mL/min >60 [facility] Comment on above: Non- GFR Calc Platelets bldOrdered By: Dr. Ferguson on 09-12-2022 Platelets (Bld) [#/Vol] 343 10*3/uL 150-450 [facility] Serum or plasma calcium eunice urement (mass/volume)Ordered By: Dr. Ferguson on 09-12-2022 Calcium [Mass/Vol] 9.4 mg/dL 8.5-10.1 [facility] Serum or plasma creatinine m easurement (mass/volume)Ordered By: Dr. Ferguson on 09-12-2022 Creatinine [Mass/Vol] 0.80 mg/dL 0.55-1.02 [facility] Comment on above: The validity of the calculated GFR & GFRAA in patients over 70 years has not been determined. Clinical correlation is essential. Serum or plasma urea nitroge n measurement (mass/volume)Ordered By: Dr. Ferguson on 09-12-2022 Urea nitrogen [Mass/Vol] 28 mg/dL 7-18 [facility] Thin prep Papanicolaou smear with manual screeningOrdered By: Dr. Ferguson on 09-12-2022 Thin prep Papanicolaou smear with manual screening 7 5-15 [facility] WERO SCREENINGon 09-04-2022 [facility] Absolute lymphocyte counton 06-26-2022 Lymphocytes Auto (Unsp spec) [#/Vol] 3.79 10*3/uL 0.83-4.51 [facility] Work Phone: Basophil percentageon 2021 Basophils/100 WBC (Bld) 0.5 % 0-1 [facility] Work Phone: Chloride [Moles/Vol] 106 mmol/L 98-107 [facility] Work Phone: Eosinophils/100 WBC (Bld) 0.9 % 0-5 [facility] Work Phone: Glucose [Mass/Vol] 170 mg/dL 74-106 [facility] Work Phone: Comment on above: Fasting Glucose resu lt greater than or equal to 126 mg/dL suggests DIABETES MELLITUS per A.D.A. criteria. Neutrophils (Bld) [#/Vol] 10.9 10*3/uL 2.0-7.7 [facility] Work Phone: Neutrophils/100 WBC (Bld) 67.0 % 47-70 [facility] Work Phone: Potassium [Moles/Vol] 4.0 mmol/L 3.5-5.1 Small ster [facility] Work Phone: [phone] Sodium [Moles/Vol] 142 mmol/L 136-145 [facility] Work Phone: [phone] WBC (Bld) [#/Vol] 16.2 10*3/uL 4.4-11.0 [facility] Work Phone: [phone] Blood erythrocytes count (nu mber/volume)on 06-26-2022 RBC (Bld) [#/Vol] 4.88 10*6/uL 4.2-5.4 [facility] Work Phone: [phone] Blood hemoglobin measurement (mass/volume)on 06-26-2022 Hemoglobin (Bld) [Mass/Vol] 14.2 g/dL 12.0-15.0 [facility] Work Phone: [phone] Blood lymphocytes/100 leukoc yteson 06-26-2022 Lymphocytes/100 WBC (Bld) 23.4 % 19-41 [facility] Work Phone: [phone] Blood monocytes/100 leukocyt eson 06-26-2022 Monocytes/100 WBC (Bld) 7.9 % 0-10 [facility] Work Phone: [phone] Blood platelet mean volumeon 06-26-2022 Platelet mean volume (Bld) [Entitic vol] 11.0 fL 6.2-12.0 [facility] Work Phone: [phone] Determination of erythrocyte mean corpuscular volume (MCV)on 06-26-2022 MCV (RBC) [Entitic vol] 87.1 fL 81-99 [facility] Work Phone: [phone] Hematocrit Auto (Bld) [Volum e fraction]on 06-26-2022 Hematocrit (Bld) [Volume fraction] 42.5 % 37-47 [facility] Work Phone: Laboratory - Chemistry and C hemistry - challengeon 06-26-2022 CO2 [Moles/Vol] 24.0 mmol/L 21.0-32.0 [facility] Work Phone: [phone] Urea nitrogen/Creatinine [Mass ratio] 17.5 mg/mg 10-20 [facility] Work Phone: [phone] Laboratory - Hematology and Cell countson 06-26-2022 Erythrocyte distribution width (RBC) [Entitic vol] 41.8 fL 35.1-43.9 [facility] Work Phone: [phone] Erythrocyte distribution width (RBC) [Ratio] 13.2 % 11.6-14.6 [facility] Work Phone: [phone] Immature granulocytes/100 WBC (Bld) 0.300 % 0.0-0.9 [facility] Work Phone: [phone] Comment on above: IG% - Immature Granu locytes (promyelocytes, myelocytes and metamyelocytes) > 1% indicates that a LEFT SHIFT is Present. MCH (RBC) [Entitic mass] 29.1 pg 27.0-32.0 [facility] Work Phone: [phone] Nucleated RBC/100 WBC (Bld) [Ratio] 0 % 0-5 [facility] Work Phone: [phone] MCHC Auto (RBC) [Mass/Vol]on 06-26-2022 MCHC (RBC) [Mass/Vol] 33.4 g/dL 32-36 [facility] Work Phone: [phone] No Panel Informationon 06-26 Troponin I High Sensitivity 14 pg/mL 3.0-54.0 [facility] Work Phone: [phone] Comment on above: Please Note: New Toña t Units and Gender Specific Reference Ranges. For more information see Policy Stat Procedure [place] High Sensitivity Troponin (TNIH) and attachments. Estimated Creatinine Clearance Calc 72.51 ml/min [facility] Work Phone: [phone] Estimated GFR (MDRD) Amer 76 mL/min >60 [facility] Work Phone: [phone] Comment on above: GFR Calc Estimated GFR (MDRD) Non-Af Amer 63 mL/min >60 [facility] Work Phone: [phone] Comment on above: Non- GFR Calc Troponin I High Sensitivity 14 pg/mL 3.0-54.0 [facility] Work Phone: Comment on above: Please Note: New Toña t Units and Gender Specific Reference Ranges. For more information see Policy Stat Procedure [place] High Sensitivity Troponin (TNIH) and attachments. Platelets bldon 06-26-2022 Platelets (Bld) [#/Vol] 406 10*3/uL 150-450 [facility] Work Phone: Serum or plasma calcium eunice urement (mass/volume)on 06-26-2022 Calcium [Mass/Vol] 9.2 mg/dL 8.5-10.1 [facility] [facility] Work Phone: Serum or plasma creatinine m easurement (mass/volume)on 06-26-2022 Creatinine [Mass/Vol] 1.03 mg/dL 0.55-1.02 [facility] Work Phone: Comment on above: The validity of the calculated GFR & GFRAA in patients over 70 years has not been determined. Clinical correlation is essential. Serum or plasma urea nitroge n measurement (mass/volume)on 06-26-2022 Urea nitrogen [Mass/Vol] 18 mg/dL 7-18 [facility] Work Phone: Thin prep Papanicolaou smear with manual screeningon 06-26-2022 Thin prep Papanicolaou smear with manual screening 12 5-15 [facility] Work Phone: CNPCarmen 06-12-2022 CNPN Telephone (CHRCEU) CHAVO TOM ([id number]) 1980 F Date Time Provider Department 06/12/22 JAJA GRUBBS During your visit today, we recorded the following information about you: Allergies As of Date: 06/12/2022 Noted Allergy Reaction METFORMIN 01/23/2022 6 - Diarrhea Date Reviewed: 06/11/2022 Reviewed by: Tony Tavares APRN.REGISTERED DIET TECHNICIAN - Fully Assessed Reason for Visit: Appointment [186] Prescriptions as of 06/12/2022 - apixaban (ELIQUIS) 5 mg tab(s) Take 1 tablet by mouth twice daily. - metoprolol succinate ER (TOPROL XL) 25 mg 24 hr tablet Take 1.5 tablets by mouth twice daily with meals. - sotalol (BETAPACE) 120 mg tablet Take 1 tablet by mouth twice daily. - semaglutide, weight loss, (WEGOVY) 2.4 mg/0.75 mL pen injector Inject 0.75 mL subcutaneously one time a week. - aspirin 81 mg chewable tablet Take 1 tablet by mouth once daily. Problem List As Of Date 06/12/2022 Noted Resolved SUPERVIS NORMAL 1ST PREG [Z34.00] 03/11/2008 03/27/2009 PLACENTA PREVIA-ANTEPART [O44.00] 07/21/2008 10/16/2008 Impaired glucose tolerance [R73.02] 01/21/2011 Irregular menstrual cycle [N92.6] 11/05/2011 08/04/2012 Vaginal high risk HPV DNA test positive [R87.81*08/04/2012 Palpitation [R00.2] 01/18/2014 Family history of hypertrophic cardiomyopathy [*01/18/2014 09/22/2018 HOCM (hypertrophic obstructive cardiomyopathy) *11/01/2014 Obesity, Class III, BMI 40-49.9 (morbid obesity* Atrial fibrillation (HCC) [I48.91] Ventricular tachyarrhythmia (HCC) [I47.2] 02/02/2014 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, cold [E04.1] 04/12/2018 ICD (implantable cardioverter-defibri llator) in*09/22/2018 Pre-op testing [Z01.818] 11/18/2019 Discharge planning issues [Z02.9] 11/18/2019 Postoperative pain [G89.18] 11/21/2019 11/22/2019 Atelectasis [J98.11] 11/21/2019 11/22/2019 Stress hyperglycemia [R73.9] 11/22/2019 11/22/2019 Obesity, Class II, BMI 35-39.9 [E66.9] 11/22/2019 11/22/2019 Clinical summary [[id number]] 11/22/2019 Acute on chronic diastolic (congestive) heart f*11/23/2019 Summary [Z48.812] 12/06/2019 Dilated cardiomyopathy (HCC) [I42.0] Left bundle branch block [I44.7] Paroxysmal atrial fibrillation (HCC) [I48.0] 08/27/2020 Class 3 severe obesity due to excess calories w*08/27/2020 Patient under care of multiple providers [Z78.9]02/05/2022 Encounter Status:Closed by JAJA GRUBBS on 06/12/22 [facility] ICD REMOTE CHECKon 2 Detection Configuration (Vent) 2 - Zone [facility] FastVT_Detection Interval 273 ms [facility] FastVT_Therapy Configuration 0 ATP(s) + 1 Shock(s) [facility] ICD FastVT DetectionStatus ENABLED [facility] ICD-Device Mfg BSX [facility] [id number] 0 [facility] ICD-SHOCKSDELIVEREDVENTR ICULAR 0 [facility] Implant Date 05/16/2021 [facility] Implant Date 02/24/2014 [facility] Lead1 Mfg BSX [facility] Location RV [facility] MDT_PROG_TACHY_ZONE_DETE CTIONS_STATUS ENABLED [facility] Model A219 EMBLEM MRI S-ICD [facility] Model 3010 Q-Trak SQ Electrode [facility] Serial Number [id number] [facility] Serial Number [id number] [facility] Therapy Status (Vent) Enabled [facility] VF Zone Detection Interval 250 ms [facility] VF Zone Therapy Configuration 0 ATP(s) + 1 Shock(s) [facility] No Panel Informationon 05-20 BLANK _ [facility] ICD REMOTE CHECKon 2 Detection Configuration (Vent) 2 - Zone [facility] FastVT_Detection Interval 273 ms [facility] FastVT_Therapy Configuration 0 ATP(s) + 1 Shock(s) [facility] ICD FastVT DetectionStatus ENABLED [facility] ICD-Device Mfg BSX [facility] [id number] 0 [facility] ICD-SHOCKSDELIVEREDVENTR ICULAR 0 [facility] Implant Date 05/16/2021 [facility] Implant Date 02/24/2014 [facility] Lead1 Mfg BSX [facility] Location RV [facility] MDT_PROG_TACHY_ZONE_DETE CTIONS_STATUS ENABLED [facility] Model A219 EMBLEM MRI S-ICD [facility] Model 3010 Q-Trak SQ Electrode [facility] Serial Number [id number] [facility] Serial Number [id number] [facility] Therapy Status (Vent) Enabled [facility] VF Zone Detection Interval 250 ms [facility] VF Zone Therapy Configuration 0 ATP(s) + 1 Shock(s) [facility] No Panel Informationon 04-22 BLANK _ [facility] Absolute lymphocyte counton 03-22-2022 Lymphocytes Auto (Unsp spec) [#/Vol] 2.69 10*3/uL 0.83-4.51 [facility] Work Phone: Basophil percentageon 2021 Basophils/100 WBC (Bld) 0.6 % 0-1 [facility] Work Phone: Chloride [Moles/Vol] 108 mmol/L 98-107 [facility] Work Phone: Eosinophils/100 WBC (Bld) 2.0 % 0-5 [facility] Work Phone: Glucose [Mass/Vol] 112 mg/dL 74-106 [facility] Work Phone: Comment on above: Fasting Glucose resu lt from 100 to 125 mg/dL suggests IMPAIRED HOMEOSTASIS per A.D.A. criteria. Neutrophils (Bld) [#/Vol] 8.3 10*3/uL 2.0-7.7 [facility] Work Phone: Neutrophils/100 WBC (Bld) 68.1 % 47-70 [facility] Work Phone: Potassium [Moles/Vol] 3.8 mmol/L 3.5-5.1 [facility] Work Phone: Sodium [Moles/Vol] 140 mmol/L 136-145 [facility] Work Phone: WBC (Bld) [#/Vol] 12.2 10*3/uL 4.4-11.0 [facility] Work Phone: [phone] Blood erythrocytes count (nu mber/volume)on 03-22-2022 RBC (Bld) [#/Vol] 4.80 10*6/uL 4.2-5.4 [facility] Work Phone: [phone] Blood hemoglobin measurement (mass/volume)on 03-22-2022 Hemoglobin (Bld) [Mass/Vol] 13.9 g/dL 12.0-15.0 [facility] Work Phone: [phone] Blood lymphocytes/100 leukoc yteson 03-22-2022 Lymphocytes/100 WBC (Bld) 22.0 % 19-41 [facility] Work Phone: [phone] Blood monocytes/100 leukocyt eson 03-22-2022 Monocytes/100 WBC (Bld) 7.0 % 0-10 [facility] Work Phone: Blood platelet mean volumeon 03-22-2022 Platelet mean volume (Bld) [Entitic vol] 11.6 fL 6.2-12.0 [facility] Work Phone: Determination of erythrocyte mean corpuscular volume (MCV)on 03-22-2022 MCV (RBC) [Entitic vol] 87.3 fL 81-99 [facility] Work Phone: Hematocrit Auto (Bld) [Volum e fraction]on 03-22-2022 Hematocrit (Bld) [Volume fraction] 41.9 % 37-47 [facility] Work Phone: Laboratory - Chemistry and C hemistry - challengeon 03-22-2022 CO2 [Moles/Vol] 24.0 mmol/L 21.0-32.0 [facility] Work Phone: Urea nitrogen/Creatinine [Mass ratio] 21.2 mg/mg 10-20 [facility] Work Phone: [phone] Laboratory - Hematology and Cell countson 03-22-2022 Erythrocyte distribution width (RBC) [Entitic vol] 42.3 fL 35.1-43.9 [facility] Work Phone: [phone] Erythrocyte distribution width (RBC) [Ratio] 13.2 % 11.6-14.6 [facility] Work Phone: [phone] Immature granulocytes/100 WBC (Bld) 0.300 % 0.0-0.9 [facility] Work Phone: [phone] Comment on above: IG% - Immature Granu locytes (promyelocytes, myelocytes and metamyelocytes) > 1% indicates that a LEFT SHIFT is Present. MCH (RBC) [Entitic mass] 29.0 pg 27.0-32.0 [facility] Work Phone: [phone] Nucleated RBC/100 WBC (Bld) [Ratio] 0 % 0-5 [facility] Work Phone: [phone] MCHC Auto (RBC) [Mass/Vol]on 03-22-2022 MCHC (RBC) [Mass/Vol] 33.2 g/dL 32-36 [facility] Work Phone: [phone] No Panel Informationon 03-22 Estimated Creatinine Clearance Calc 82.98 ml/min [facility] Work Phone: [phone] Estimated GFR (MDRD) Amer 89 mL/min >60 [facility] Work Phone: [phone] Comment on above: GFR Calc Estimated GFR (MDRD) Non-Af Amer 73 mL/min >60 [facility] Work Phone: [phone] Comment on above: Non- GFR Calc Troponin I High Sensitivity 7 pg/mL 3.0-54.0 [facility] Work Phone: [phone] Comment on above: Please Note: New Toña t Units and Gender Specific Reference Ranges. For more information see Policy Stat Procedure [place] High Sensitivity Troponin (TNIH) and attachments. Platelets bldon 03-22-2022 Platelets (Bld) [#/Vol] 352 10*3/uL 150-450 [facility] Work Phone: [phone] Serum or plasma calcium eunice urement (mass/volume)on 06-18-2022 Calcium [Mass/Vol] 9.0 mg/dL 8.5-10.1 [facility] Work Phone: Serum or plasma creatinine m easurement (mass/volume)on 03-22-2022 Creatinine [Mass/Vol] 0.90 mg/dL 0.55-1.02 [facility] Work Phone: Comment on above: The validity of the calculated GFR & GFRAA in patients over 70 years has not been determined. Clinical correlation is essential. Serum or plasma urea nitroge n measurement (mass/volume)on 03-22-2022 Urea nitrogen [Mass/Vol] 19 mg/dL 04-21 [facility] Work Phone: Thin prep Papanicolaou smear with manual screeningon 03-22-2022 Thin prep Papanicolaou smear with manual screening 8 02-16 [facility] Work Phone: ICD REMOTE CHECKon 2 Detection Configuration (Vent) 2 - Zone [facility] FastVT_Detection Interval 273 ms [facility] FastVT_Therapy Configuration 0 ATP(s) + 1 Shock(s) [facility] ICD FastVT DetectionStatus ENABLED [facility] ICD-Device Mfg BSX [facility] [id number] 0 [facility] ICD-SHOCKSDELIVEREDVENTR ICULAR 0 [facility] Implant Date 05/16/2021 [facility] Implant Date 02/24/2014 [facility] Lead1 Mfg [facility] Location RV [facility] MDT_PROG_TACHY_ZONE_DETE CTIONS_STATUS ENABLED [facility] Model A219 EMBLEM MRI S-ICD [facility] Model 3010 [facility] Serial Number [id number] [facility] Serial Number [id number] [facility] Therapy Status (Vent) Enabled [facility] VF Zone Detection Interval 250 ms [facility] VF Zone Therapy Configuration 0 ATP(s) + 1 Shock(s) [facility] No Panel Informationon 01-20 BLANK _ [facility] XR Wrist - left PA and Later al and Obliqueon 11-19-2020 IMPRESSION: No acute osseous abnormality identified. Negative ulnar variance. Web Development Instructor: CLAUDIA Transcribe Date/Time: Nov 19 2020 2:31P Dictated by : JAMES RAMIREZ MD This examination was interpreted and the report reviewed and electronically signed by: JAMES RAMIREZ MD on Nov 19 2020 2:32PM EST DIVISION OF RADIOLOGY * * *Final Report* * * DATE OF EXAM: Nov 19 2020 2:20PM WOX 5270 - XR WRIST 3V PA/LAT/OBL LT / PROCEDURE REASON: Sprain of left wrist, subsequent encounter * * * * Physician Interpretation * * * * Left wrist radiograph HISTORY: 40 years old Clinical information: Sprain of left wrist, subsequent encounter Pamler and radial sided left wrist pain following a fall x 1 week ago. TECHNIQUE: Images: XR WRIST 3V PA/LAT/OBL LT Comparison: None. RESULT: Findings: Negative ulnar variance. Joint spaces are maintained. No fracture or dislocation. No soft tissue abnormality identified. DIVISION OF RADIOLOGY Provider, [facility] [place] - 11/19/2020 * * *Final Report* * * DATE OF EXAM: Nov 19 2020 2:20PM WOX 5270 - XR WRIST 3V PA/LAT/OBL LT / PROCEDURE REASON: Sprain of left wrist, subsequent encounter * * * * Physician Interpretation * * * * Left wrist radiograph HISTORY: 40 years old Clinical information: Sprain of left wrist, subsequent encounter Pamler and radial sided left wrist pain following a fall x 1 week ago. TECHNIQUE: Images: XR WRIST 3V PA/LAT/OBL LT Comparison: None. RESULT: Findings: Negative ulnar variance. Joint spaces are maintained. No fracture or dislocation. No soft tissue abnormality identified. IMPRESSION IMPRESSION: No acute osseous abnormality identified. Negative ulnar variance. Web Development Instructor: PSCB Transcribe Date/Time: Nov 19 2020 2:31P Dictated by : JAMES RAMIREZ MD This examination was interpreted and the report reviewed and electronically signed by: JAMES RAMIREZ MD on Nov 19 2020 2:32PM EST [facility] Radiology Study observation (narrative) Amanda colindres [facility] XR Wrist - left PA and Later al and ObliqueOrdered By: [facility] Provider on 11-19-2020 [facility] Office Visit: [facility] med f/u: l ower back strainon 07-10-2017 Fall risk assessment No Invalid Interpretation Code [facility] Work Phone: Protein mass conc Done Invalid Interpretation Code [facility] Work Phone: Tobacco smoking status NHIS Never Invalid Interpretation Code [facility] Work Phone: Tobacco smoking status NHIS Never smoker Invalid Interpretation Code [facility] Work Phone: No Panel Information [facility] Vital Signs Date Time Vital Sign Value Performing Clinician Faci lity 03-08-2025 12:00-0400 Diastolic blood pressure 66 mm[Hg] Maryana Bailey MD Work Phone: [facility] 03-08-2025 12:00-0400 Heart rate 49 /min Maryana Bailey MD Work Phone: [facility] 03-08-2025 12:00-0400 Respiratory rate 18 /min Maryana Bailey MD Work Phone: [facility] 03-08-2025 12:00-0400 SaO2% (BldA) [Mass fraction] 100 % Maryana Bailey MD Work Phone: [facility] 03-08-2025 12:00-0400 Systolic blood pressure 102 mm[Hg] Maryana Bailey MD Work Phone: [facility] 03-08-2025 11:50-0400 Body temperature 97.5 [degF] Maryana Bailey MD Work Phone: [facility] 02-08-2025 22:02-0400 Body temperature 98.2 [degF] Dr. Enriqueta Duffy DO Work Phone: [facility] 02-08-2025 22:02-0400 Diastolic blood pressure 71 mm[Hg] Dr. Enriqueta Duffy DO Work Phone: [facility] 02-08-2025 22:02-0400 Heart rate 62 /min Dr. Enriqueta Duffy DO Work Phone: [facility] 02-08-2025 22:02-0400 Respiratory rate 16 /min Dr. Enriqueta Duffy DO Work Phone: [facility] 02-08-2025 22:02-0400 SaO2% (BldA) [Mass fraction] 100 % Dr. Enriqueta Duffy DO Work Phone: [facility] 02-08-2025 22:02-0400 Systolic blood pressure 108 mm[Hg] Dr. Enriqueta Duffy DO Work Phone: [facility] 02-08-2025 18:55-0400 Body height 172.[address] Enriqueta Duffy DO Work Phone: [facility] 02-08-2025 18:55-0400 Body mass index (BMI) [Ratio] 23.1 kg/m2 Dr. Enriqueta Duffy DO Work Phone: [facility] 02-08-2025 18:55-0400 Body weight 68.[address] Enriqueta Duffy DO Work Phone: [facility] 02-08-2025 07:53-0400 Body mass index (BMI) [Ratio] 23.57 kg/m2 Alec Blari APRN.REGISTERED DIET TECHNICIAN Work Phone: [facility] 02-08-2025 07:53-0400 Body weight 70.31 kg Alec Blair APRN.REGISTERED DIET TECHNICIAN Work Phone: [facility] 01-12-2025 09:34-0400 Body mass index (BMI) [Ratio] 23.42 kg/m2 Yissel Atkinson 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.REGISTERED DIET TECHNICIAN Work Phone: [facility] 01-12-2025 09:34-0400 Body weight 69.85 kg Yissel Atkinson 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.REGISTERED DIET TECHNICIAN Work Phone: [facility] 01-12-2025 09:34-0400 Diastolic blood pressure 66 mm[Hg] Yissel Atkinson APRN.REGISTERED DIET TECHNICIAN Work Phone: [facility] 01-12-2025 09:34-0400 Heart rate 76 /min Yissel Atkinson APRN.REGISTERED DIET TECHNICIAN Work Phone: [facility] 01-12-2025 09:34-0400 SaO2% (BldA) [Mass fraction] 99 % Yissel Atkinson APRN.REGISTERED DIET TECHNICIAN Work Phone: [facility] 01-12-2025 09:34-0400 Systolic blood pressure 98 mm[Hg] Yissel Atkinson 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.REGISTERED DIET TECHNICIAN Work Phone: [facility] 01-11-2025 08:20-0400 Diastolic blood pressure 64 mm[Hg] Alec Haury 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.REGISTERED DIET TECHNICIAN Work Phone: [facility] 01-11-2025 08:20-0400 Systolic blood pressure 110 mm[Hg] Alec Haury 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.REGISTERED DIET TECHNICIAN Work Phone: [facility] 01-11-2025 07:49-0400 Body mass index (BMI) [Ratio] 23.87 kg/m2 Alec Haury 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.REGISTERED DIET TECHNICIAN Work Phone: [facility] 01-11-2025 07:49-0400 Body weight 71.22 kg Alec Haury 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.REGISTERED DIET TECHNICIAN Work Phone: [facility] 09-07-2024 09:49-0500 Body height 172.7 cm Oneyda Recinos MD Work Phone: [facility] 09-07-2024 09:49-0500 Body mass index (BMI) [Ratio] 23.42 kg/m2 Oneyda Recinos MD Work Phone: [facility] 09-07-2024 09:49-0500 Body weight 69.85 kg Oneyda Recinos MD Work Phone: [facility] 09-07-2024 09:49-0500 Diastolic blood pressure 62 mm[Hg] Oneyda Recinos MD Work Phone: [facility] 09-07-2024 09:49-0500 Heart rate 45 /min Oneyda Recinos MD Work Phone: [facility] 09-07-2024 09:49-0500 Systolic blood pressure 107 mm[Hg] Oneyda Recinos MD Work Phone: [facility] 08-25-2024 07:41-0500 Body height 175.3 cm Alec Haury 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.REGISTERED DIET TECHNICIAN Work Phone: [facility] 08-25-2024 07:41-0500 Body mass index (BMI) [Ratio] 22.89 kg/m2 Alec Blair 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.REGISTERED DIET TECHNICIAN Work Phone: [facility] 08-25-2024 07:41-0500 Body weight 70.31 kg Alec Blair 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.REGISTERED DIET TECHNICIAN Work Phone: [facility] 08-25-2024 07:41-0500 Diastolic blood pressure 64 mm[Hg] Alec Blair 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.REGISTERED DIET TECHNICIAN Work Phone: [facility] 08-25-2024 07:41-0500 Systolic blood pressure 110 mm[Hg] Alec Blair 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.REGISTERED DIET TECHNICIAN Work Phone: [facility] 07-14-2024 14:26-0400 Body mass index (BMI) [Ratio] 23.79 kg/m2 Yissel Suppan 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.REGISTERED DIET TECHNICIAN Work Phone: [facility] 07-14-2024 14:26-0400 Body weight 71.22 kg Yissel Suppan 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.REGISTERED DIET TECHNICIAN Work Phone: [facility] 07-14-2024 14:26-0400 Diastolic blood pressure 62 mm[Hg] Yissel Suppan 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.REGISTERED DIET TECHNICIAN Work Phone: [facility] 07-14-2024 14:26-0400 Heart rate 70 /min Yissel Suppan 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.REGISTERED DIET TECHNICIAN Work Phone: [facility] 07-14-2024 14:26-0400 SaO2% (BldA) [Mass fraction] 100 % Yissel Suppan 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.REGISTERED DIET TECHNICIAN Work Phone: [facility] 07-14-2024 14:26-0400 Systolic blood pressure 92 mm[Hg] Yissel Suppan 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.REGISTERED DIET TECHNICIAN Work Phone: [facility] 04-14-2024 13:36-0400 Body mass index (BMI) [Ratio] 23.95 kg/m2 Yissel Suppan 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.REGISTERED DIET TECHNICIAN Work Phone: [facility] 04-14-2024 13:36-0400 Body weight 71.67 kg Yissel Whitean 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.REGISTERED DIET TECHNICIAN Work Phone: [facility] 04-14-2024 13:36-0400 Diastolic blood pressure 62 mm[Hg] Yissel Whitean 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.REGISTERED DIET TECHNICIAN Work Phone: [facility] 04-14-2024 13:36-0400 Heart rate 44 /min Yissel Suppan 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.REGISTERED DIET TECHNICIAN Work Phone: [facility] 04-14-2024 13:36-0400 SaO2% (BldA) [Mass fraction] 98 % Yissel Suppan 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.REGISTERED DIET TECHNICIAN Work Phone: [facility] 04-14-2024 13:36-0400 Systolic blood pressure 100 mm[Hg] Yissel Whitean 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.REGISTERED DIET TECHNICIAN Work Phone: [facility] 02-25-2024 15:29-0400 Body height 172.7 cm Alec Nation 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.REGISTERED DIET TECHNICIAN Work Phone: [facility] 02-25-2024 15:29-0400 Body mass index (BMI) [Ratio] 22.96 kg/m2 Alec Nation 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.REGISTERED DIET TECHNICIAN Work Phone: [facility] 02-25-2024 15:29-0400 Body weight 68.49 kg Alec Nation 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.REGISTERED DIET TECHNICIAN Work Phone: [facility] 01-18-2024 07:17-0400 Body temperature 98 [degF] [facility] 01-18-2024 07:17-0400 Diastolic blood pressure 71 mm[Hg] [facility] 01-18-2024 07:17-0400 Heart rate 87 /min [facility] 01-18-2024 07:17-0400 Respiratory rate 12 /min [facility] 01-18-2024 07:17-0400 SaO2% (BldA) [Mass fraction] 100 % [facility] 01-18-2024 07:17-0400 Systolic blood pressure 108 mm[Hg] [facility] 01-18-2024 04:40-0400 Body height 172.72 cm [facility] 01-18-2024 04:40-0400 Body mass index (BMI) [Ratio] 23.8 kg/m2 [facility] 01-18-2024 04:40-0400 Body weight 71.2 kg [facility] 01-14-2024 09:27-0400 Body height 172.7 cm Esperanza Mercer MD Work Phone: [facility] 01-14-2024 09:27-0400 Body weight 70.58 kg Esperanza Mercer MD Work Phone: [facility] 01-14-2024 09:27-0400 Diastolic blood pressure 60 mm[Hg] Esperanza Mercer MD Work Phone: [facility] 01-14-2024 09:27-0400 Heart rate 46 /min Esperanza Mercer MD Work Phone: [facility] 01-14-2024 09:27-0400 Systolic blood pressure 93 mm[Hg] Esperanza Mercer MD Work Phone: [facility] 12-28-2023 14:48-0400 Body height 172.7 cm Oneyda Recinos MD Work Phone: [facility] 12-28-2023 14:48-0400 Body weight 71.67 kg Oneyda Recinos MD Work Phone: [facility] 12-28-2023 14:48-0400 Diastolic blood pressure 73 mm[Hg] Oneyda Recinos MD Work Phone: [facility] 12-28-2023 14:48-0400 Heart rate 46 /min Oneyda Recinos MD Work Phone: [facility] 12-28-2023 14:48-0400 Systolic blood pressure 113 mm[Hg] Oneyda Recinos MD Work Phone: [facility] 09-11-2023 12:58-0500 Body temperature 97.7 [degF] Natalya Ramos PA-C Work Phone: [facility] 09-11-2023 12:58-0500 Body weight 77.84 kg Natalya Athy PA-C Work Phone: [facility] 09-11-2023 12:58-0500 Diastolic blood pressure 64 mm[Hg] Natalya Athy PA-C Work Phone: [facility] 09-11-2023 12:58-0500 Heart rate 60 /min Natalya Athy PA-C Work Phone: [facility] 09-11-2023 12:58-0500 Respiratory rate 18 /min Natalya Athy PA-C Work Phone: [facility] 09-11-2023 12:58-0500 SaO2% (BldA) [Mass fraction] 99 % Natalya Athy PA-C Work Phone: [facility] 09-11-2023 12:58-0500 Systolic blood pressure 102 mm[Hg] Natalya Athy PA-C Work Phone: [facility] 09-02-2023 10:55-0500 Body height 172.[address] Work Phone: [facility] 09-02-2023 10:55-0500 Body weight 80.[address] Work Phone: [facility] 07-16-2023 12:42-0400 Body height 172.7 cm Noah Vasquez MD Work Phone: [facility] 07-16-2023 12:42-0400 Body weight 84.37 kg Noah Vasquez MD Work Phone: [facility] 07-16-2023 12:42-0400 Diastolic blood pressure 56 mm[Hg] Noah Vasquez MD Work Phone: [facility] 07-16-2023 12:42-0400 Heart rate 57 /min Noah Vasquez MD Work Phone: [facility] 07-16-2023 12:42-0400 SaO2% (BldA) [Mass fraction] 99 % Noah Vasquez MD Work Phone: [facility] 07-16-2023 12:42-0400 Systolic blood pressure 94 mm[Hg] Noah Vasquez MD Work Phone: [facility] 06-05-2023 10:51-0400 Body height 172.[address] Work Phone: [facility] 06-05-2023 10:51-0400 Body weight 90.[address] Work Phone: [facility] 05-13-2023 10:46-0400 Body height 172.7 cm Pacc 3 Work Phone: [facility] 05-13-2023 10:46-0400 Body weight 97.07 kg Pacc 3 Work Phone: [facility] 05-07-2023 11:34-0400 Body weight 97.52 kg Esperanza Mercer MD Work Phone: [facility] 05-03-2023 17:15-0400 Diastolic blood pressure 72 mm[Hg] [facility] 05-03-2023 17:15-0400 Heart rate 67 /min [facility] 05-03-2023 17:15-0400 Respiratory rate 16 /min [facility] 05-03-2023 17:15-0400 SaO2% (BldA) [Mass fraction] 98 % [facility] 05-03-2023 17:15-0400 Systolic blood pressure 107 mm[Hg] [facility] 05-03-2023 15:16-0400 Body height 172.72 cm [facility] 05-03-2023 15:16-0400 Body mass index (BMI) [Ratio] 33.5 kg/m2 [facility] 05-03-2023 15:16-0400 Body temperature 97.4 [degF] [facility] 05-03-2023 15:16-0400 Body weight 100.24 kg [facility] 03-26-2023 11:56-0400 Body weight 105.23 kg JUNAID Palma PA-C Work Phone: [facility] 03-26-2023 11:56-0400 Diastolic blood pressure 60 mm[Hg] NA Palma PA-C Work Phone: [facility] 03-26-2023 11:56-0400 Heart rate 62 /min NA Palma PA-C Work Phone: [facility] 03-26-2023 11:56-0400 Respiratory rate 16 /min NA Palma PA-C Work Phone: [facility] 03-26-2023 11:56-0400 SaO2% (BldA) [Mass fraction] 100 % NA Palma PA-C Work Phone: [facility] 03-26-2023 11:56-0400 Systolic blood pressure 98 mm[Hg] NA Palma PA-C Work Phone: [facility] 03-24-2023 11:36-0400 Body weight 104.06 kg Esperanza Mercer MD Work Phone: [facility] 03-20-2023 10:03-0400 Body temperature 97.81 [degF] Elizabeth Mercado 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.REGISTERED DIET TECHNICIAN Work Phone: [facility] 03-20-2023 10:03-0400 Body weight 104.78 kg Elizabeth Mercado 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.REGISTERED DIET TECHNICIAN Work Phone: [facility] 03-20-2023 10:03-0400 Diastolic blood pressure 70 mm[Hg] Elizabeth Mercado 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.REGISTERED DIET TECHNICIAN Work Phone: [facility] 03-20-2023 10:03-0400 Heart rate 86 /min Elizabeth Mercado 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.REGISTERED DIET TECHNICIAN Work Phone: [facility] 03-20-2023 10:03-0400 Respiratory rate 16 /min Elizabeth Mercado 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.REGISTERED DIET TECHNICIAN Work Phone: [facility] 03-20-2023 10:03-0400 SaO2% (BldA) [Mass fraction] 98 % Elizabeth Mercado 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.REGISTERED DIET TECHNICIAN Work Phone: [facility] 03-20-2023 10:03-0400 Systolic blood pressure 122 mm[Hg] Elizabeth Rogelio GONZALEZ Work Phone: [facility] 03-08-2023 01:00-0400 Diastolic blood pressure 78 mm[Hg] [facility] 03-08-2023 01:00-0400 Heart rate 62 /min [facility] 03-08-2023 01:00-0400 Systolic blood pressure 106 mm[Hg] [facility] 03-08-2023 00:37-0400 Respiratory rate 18 /min [facility] 03-08-2023 00:37-0400 SaO2% (BldA) [Mass fraction] 100 % [facility] 03-07-2023 20:50-0400 Body height 172.72 cm [facility] 03-07-2023 20:50-0400 Body mass index (BMI) [Ratio] 38.7 kg/m2 [facility] 03-07-2023 20:50-0400 Body temperature 97.1 [degF] [facility] 03-07-2023 20:50-0400 Body weight 115.57 kg [facility] 03-04-2023 12:43-0400 Body height 172.[address] Work Phone: [facility] 03-04-2023 12:43-0400 Body weight 106.[address] Work Phone: [facility] 02-02-2023 12:21-0400 Body height 172.[address] Work Phone: [facility] 02-02-2023 12:21-0400 Body weight 119.[address] Work Phone: [facility] 01-29-2023 11:31-0400 Body height 172.7 cm Pacc 4 Work Phone: [facility] 01-29-2023 11:31-0400 Body temperature 97.81 [degF] Pacc 4 Work Phone: [facility] 01-29-2023 11:31-0400 Body weight 119.89 kg Pacc 4 Work Phone: [facility] 01-29-2023 11:31-0400 Diastolic blood pressure 74 mm[Hg] Pac 4 Work Phone: [facility] 01-29-2023 11:31-0400 Heart rate 62 /min Pac 4 Work Phone: [facility] 01-29-2023 11:31-0400 SaO2% (BldA) [Mass fraction] 100 % Pac 4 Work Phone: [facility] 01-29-2023 11:31-0400 Systolic blood pressure 113 mm[Hg] [facility] 4 Work Phone: [facility] 01-29-2023 09:43-0400 Body height 172.7 cm Esperanza Mercer MD Work Phone: [facility] 01-29-2023 09:43-0400 Body weight 118.84 kg Esperanza Mercer MD Work Phone: [facility] 01-29-2023 09:43-0400 Diastolic blood pressure 78 mm[Hg] Esperanza Mercer MD Work Phone: [facility] 01-29-2023 09:43-0400 Heart rate 64 /min Esperanza Mercer MD Work Phone: [facility] 01-29-2023 09:43-0400 Systolic blood pressure 120 mm[Hg] Esperanza Mercer MD Work Phone: [facility] 11-25-2022 09:18-0500 Body height 172.7 cm Jayjay Colindres Work Phone: [facility] 11-25-2022 09:18-0500 Body weight 118.84 kg Jayjay Colindres Work Phone: [facility] 11-25-2022 09:18-0500 Diastolic blood pressure 64 mm[Hg] Jayjay Ortiz MD Work Phone: [facility] 11-25-2022 09:18-0500 Heart rate 79 /min Jayjay Colindres Work Phone: [facility] 11-25-2022 09:18-0500 Respiratory rate 12 /min Jayjay Colindres Work Phone: [facility] 11-25-2022 09:18-0500 SaO2% (BldA) [Mass fraction] 99 % Jayjay Ortiz MD Work Phone: [facility] 11-25-2022 09:18-0500 Systolic blood pressure 106 mm[Hg] Jayjay Ortiz MD Work Phone: [facility] 11-05-2022 08:36-0500 Body height 172.7 cm Amy Alvarado 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.REGISTERED DIET TECHNICIAN Work Phone: [facility] 11-05-2022 08:36-0500 Body weight 123.83 kg Amy Alvarado 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.REGISTERED DIET TECHNICIAN Work Phone: [facility] 11-05-2022 08:36-0500 Diastolic blood pressure 71 mm[Hg] Amy Alvarado 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.REGISTERED DIET TECHNICIAN Work Phone: [facility] 11-05-2022 08:36-0500 Heart rate 74 /min Amy Alvarado 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.REGISTERED DIET TECHNICIAN Work Phone: [facility] 11-05-2022 08:36-0500 SaO2% (BldA) [Mass fraction] 100 % Amy Alvarado 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.REGISTERED DIET TECHNICIAN Work Phone: [facility] 11-05-2022 08:36-0500 Systolic blood pressure 105 mm[Hg] Amy Alvarado 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.REGISTERED DIET TECHNICIAN Work Phone: [facility] 10-26-2022 04:51-0500 Diastolic blood pressure 66 mm[Hg] [facility] 10-26-2022 04:51-0500 Heart rate 87 /min [facility] 10-26-2022 04:51-0500 Respiratory rate 16 /min [facility] 10-26-2022 04:51-0500 SaO2% (BldA) [Mass fraction] 97 % [facility] 10-26-2022 04:51-0500 Systolic blood pressure 105 mm[Hg] [facility] 10-26-2022 04:02-0500 Body height 172.72 cm [facility] 10-26-2022 04:02-0500 Body mass index (BMI) [Ratio] 41.8 kg/m2 [facility] 10-26-2022 04:02-0500 Body temperature 97.9 [degF] [facility] 10-26-2022 04:02-0500 Body weight 124.7 kg [facility] 10-22-2022 12:41-0500 Body weight 123.83 kg NA Owen 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.REGISTERED DIET TECHNICIAN Work Phone: [facility] 10-22-2022 12:41-0500 Diastolic blood pressure 80 mm[Hg] NA Owen 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.REGISTERED DIET TECHNICIAN Work Phone: [facility] 10-22-2022 12:41-0500 Heart rate 73 /min NA Owen 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.REGISTERED DIET TECHNICIAN Work Phone: [facility] 10-22-2022 12:41-0500 Respiratory rate 16 /min NA Owen 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.REGISTERED DIET TECHNICIAN Work Phone: [facility] 10-22-2022 12:41-0500 SaO2% (BldA) [Mass fraction] 97 % NA Owen 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.REGISTERED DIET TECHNICIAN Work Phone: [facility] 10-22-2022 12:41-0500 Systolic blood pressure 123 mm[Hg] NA Owen 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.REGISTERED DIET TECHNICIAN Work Phone: [facility] 10-22-2022 08:41-0500 Body height 172.[address] Work Phone: [facility] 10-22-2022 08:41-0500 Body weight 123.[address] Work Phone: [facility] 10-22-2022 05:04-0500 Body height 172.7 cm [facility] Work Phone: [facility] 10-22-2022 05:04-0500 Body weight 124.5 kg Sleep Main Work Phone: [facility] 09-29-2022 12:06-0500 Body temperature 98.49 [degF] Bridget Praisler-Wood 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.REGISTERED DIET TECHNICIAN Work Phone: [facility] 09-29-2022 12:06-0500 Body weight 124.74 kg Bridget Praisler-Wood 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.REGISTERED DIET TECHNICIAN Work Phone: [facility] 09-29-2022 12:06-0500 Diastolic blood pressure 82 mm[Hg] Bridget Praisler-Wood 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.REGISTERED DIET TECHNICIAN Work Phone: [facility] 09-29-2022 12:06-0500 Heart rate 91 /min Bridget Praisler-Wood 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.REGISTERED DIET TECHNICIAN Work Phone: [facility] 09-29-2022 12:06-0500 Respiratory rate 20 /min Bridget Praisler-Wood 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.REGISTERED DIET TECHNICIAN Work Phone: [facility] 09-29-2022 12:06-0500 SaO2% (BldA) [Mass fraction] 98 % Bridget Praisler-Wood 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.REGISTERED DIET TECHNICIAN Work Phone: [facility] 09-29-2022 12:06-0500 Systolic blood pressure 118 mm[Hg] Bridget Praisler-Wood 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.REGISTERED DIET TECHNICIAN Work Phone: [facility] 09-12-2022 17:54-0500 Diastolic blood pressure 73 mm[Hg] [facility] 09-12-2022 17:54-0500 Heart rate 78 /min [facility] 09-12-2022 17:54-0500 Systolic blood pressure 110 mm[Hg] [facility] 09-12-2022 16:44-0500 Respiratory rate 17 /min [facility] 09-12-2022 15:27-0500 Body height 172.72 cm [facility] Work Phone: 09-12-2022 15:27-0500 Body mass index (BMI) [Ratio] 42.5 kg/m2 [facility] 09-12-2022 15:27-0500 Body temperature 96.8 [degF] [facility] 09-12-2022 15:27-0500 Body weight 126.77 kg [facility] 09-12-2022 15:27-0500 SaO2% (BldA) [Mass fraction] 98 % [facility] 09-10-2022 12:45-0500 Body height 172.7 cm Edna Lu TOVAR [facility] 09-10-2022 12:45-0500 Body weight 126.92 kg Edna Lu TOVAR [facility] 07-21-2022 16:02-0400 Body temperature 97.3 [degF] Sparkle Gimenez APRN.REGISTERED DIET TECHNICIAN Work Phone: [facility] 07-21-2022 16:02-0400 Body weight 127.91 kg Sparkle Gimenez APRN.REGISTERED DIET TECHNICIAN Work Phone: [facility] 07-21-2022 16:02-0400 Diastolic blood pressure 68 mm[Hg] Sparkle Gimenez APRN.REGISTERED DIET TECHNICIAN Work Phone: [facility] 07-21-2022 16:02-0400 Heart rate 74 /min Sparkle Gimenez APRN.REGISTERED DIET TECHNICIAN Work Phone: [facility] 07-21-2022 16:02-0400 Respiratory rate 16 /min Sparkle Gimenez APRN.REGISTERED DIET TECHNICIAN Work Phone: [facility] 07-21-2022 16:02-0400 SaO2% (BldA) [Mass fraction] 98 % Sparkle Gimenez APRN.REGISTERED DIET TECHNICIAN Work Phone: [facility] 07-21-2022 16:02-0400 Systolic blood pressure 108 mm[Hg] Sparkle Gimenez APRN.REGISTERED DIET TECHNICIAN Work Phone: [facility] 06-26-2022 23:18-0400 Diastolic blood pressure 72 mm[Hg] [facility] Work Phone: 06-26-2022 23:18-0400 Heart rate 67 /min [facility] Work Phone: 06-26-2022 23:18-0400 Respiratory rate 17 /min [facility] Work Phone: 06-26-2022 23:18-0400 SaO2% (BldA) [Mass fraction] 99 % [facility] Work Phone: 06-26-2022 23:18-0400 Systolic blood pressure 100 mm[Hg] [facility] Work Phone: 06-26-2022 20:38-0400 Body height 172.72 cm [facility] Work Phone: 06-26-2022 20:38-0400 Body mass index (BMI) [Ratio] 42.1 kg/m2 [facility] Work Phone: 06-26-2022 20:38-0400 Body temperature 98 [degF] [facility] Work Phone: 06-26-2022 20:38-0400 Body weight 125.64 kg [facility] Work Phone: 06-11-2022 07:21-0400 Body temperature 98.91 [degF] Tony Tavares 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.REGISTERED DIET TECHNICIAN Work Phone: [facility] 06-11-2022 07:21-0400 Body weight 125.65 kg Tony Tavares 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.REGISTERED DIET TECHNICIAN Work Phone: [facility] 06-11-2022 07:21-0400 Diastolic blood pressure 80 mm[Hg] Tony Tavares 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.REGISTERED DIET TECHNICIAN Work Phone: [facility] 06-11-2022 07:21-0400 Heart rate 88 /min Tony Tavares 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.REGISTERED DIET TECHNICIAN Work Phone: [facility] 06-11-2022 07:21-0400 Respiratory rate 16 /min Tony Tavares 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.REGISTERED DIET TECHNICIAN Work Phone: [facility] 06-11-2022 07:21-0400 SaO2% (BldA) [Mass fraction] 98 % Tony Colemanlyndon 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.REGISTERED DIET TECHNICIAN Work Phone: [facility] 06-11-2022 07:21-0400 Systolic blood pressure 134 mm[Hg] Tony Colemanlyndon 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.REGISTERED DIET TECHNICIAN Work Phone: [facility] 03-22-2022 18:08-0400 Diastolic blood pressure 72 mm[Hg] [facility] Work Phone: 03-22-2022 18:08-0400 Heart rate 95 /min [facility] Work Phone: 03-22-2022 18:08-0400 Respiratory rate 16 /min [facility] Work Phone: 03-22-2022 18:08-0400 SaO2% (BldA) [Mass fraction] 99 % [facility] Work Phone: 03-22-2022 18:08-0400 Systolic blood pressure 98 mm[Hg] [facility] Work Phone: 03-22-2022 15:48-0400 Body height 172.72 cm [facility] Work Phone: 03-22-2022 15:48-0400 Body mass index (BMI) [Ratio] 42.5 kg/m2 [facility] Work Phone: 03-22-2022 15:48-0400 Body temperature 96 [degF] [facility] Work Phone: 03-22-2022 15:48-0400 Body weight 127 kg [facility] Work Phone: 02-06-2022 14:34-0400 Body weight 126.55 kg NA Palma PA-C Work Phone: [facility] 02-06-2022 14:34-0400 Diastolic blood pressure 72 mm[Hg] NA Palma PA-C Work Phone: [facility] 02-06-2022 14:34-0400 Heart rate 82 /min NA Palma PA-C Work Phone: [facility] 02-06-2022 14:34-0400 SaO2% (BldA) [Mass fraction] 99 % NA Palma PA-C Work Phone: [facility] 02-06-2022 14:34-0400 Systolic blood pressure 110 mm[Hg] NA Palma PA-C Work Phone: [facility] 01-23-2022 09:24-0400 Body height 172.7 cm Fawn Whiting APRN.REGISTERED DIET TECHNICIAN Work Phone: [facility] 01-23-2022 09:24-0400 Body weight 125.33 kg Fawn Whiting APRN.REGISTERED DIET TECHNICIAN Work Phone: [facility] 01-23-2022 09:24-0400 Diastolic blood pressure 60 mm[Hg] Fawn Whiting APRN.REGISTERED DIET TECHNICIAN Work Phone: [facility] 01-23-2022 09:24-0400 Heart rate 56 /min Fawn Whiting APRN.REGISTERED DIET TECHNICIAN Work Phone: [facility] 01-23-2022 09:24-0400 Systolic blood pressure 110 mm[Hg] Fawn Wattso 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.REGISTERED DIET TECHNICIAN Work Phone: [facility] 07-10-2017 08:48-0400 BMI (Body Mass Index) 44.42 kg/m2 Johanna Anderson LPN [facility] Work Phone: 07-10-2017 08:48-0400 Body Temperature 97.3 [degF] Johanna Anderson LPN [facility] Work Phone: 07-10-2017 08:48-0400 BP Diastolic 84 mm[Hg] Johanna Anderson LPN [facility] Work Phone: 07-10-2017 08:48-0400 BP Systolic 116 mm[Hg] Johanna Anderson LPN [facility] Work Phone: 07-10-2017 08:48-0400 Height 172.72 cm Johanna Anderson LPN [facility] Work Phone: 07-10-2017 08:48-0400 Pulse (Heart Rate) 101 /min Johanna Anderson [employer] [facility] Work Phone: 07-10-2017 08:48-0400 Respiratory Rate 13 /min Johanna Anderson [facility] Work Phone: 07-10-2017 08:48-0400 Weight 132.54 kg Johanna Anderson LPN [facility] Work Phone: Encounters Encounter Date Encounter Type Care Provider Facility Start: 07-13-2025 End: 07-13-2025 ambulatory ONEYDA RECINOS Facility:[facility] Start: 07-13-2025 End: 07-13-2025 ambulatory YISSEL ATKINSON Facility:[facility] Start: 07-13-2025 Encounter for genera l adult medical examination without abnormal findings [facility] Start: 07-12-2025 End: 07-12-2025 ambulatory TRI Rai STEPHANY Facility:[facility] Start: 06-09-2025 End: 06-09-2025 Telephone encounter [facility] Comment on above: Anticoagulation Tele phone Fu Start: 06-06-2025 End: 06-06-2025 Telephone encounter Oneyda Recinos MD Work Phone: Cardiology Start: 05-19-2025 End: 05-19-2025 Refill Ellen Jeter MD Work Phone: [facility] Comment on above: Refill Request Start: 05-08-2025 End: 05-09-2025 MC Get Medical Advice Oneyda Recinos MD Work Phone: Cardiology Comment on above: [place] refill Start: 05-01-2025 End: 05-01-2025 Telephone encounter [facility] Comment on above: Anticoagulation Tele phone Fu Start: 04-21-2025 End: 04-21-2025 Orders Only Geo French MD Work Phone: General Surgery Start: 04-20-2025 End: 04-21-2025 Admission to same day surgery center Esperanza Mercer MD Work Phone: General Surgery Comment on above: Ulcer Start: 04-20-2025 End: 04-21-2025 ambulatory Esperanza Mercer MD Work Phone: General Surgery Start: 04-19-2025 End: 04-19-2025 Patient encounter procedure Ekg Card [facility] Work Phone: Cardiology Start: 04-19-2025 End: 04-19-2025 ambulatory ONEYDA RECINOS Cardiology Start: 04-06-2025 End: 04-06-2025 Telephone encounter [facility] Comment on above: Anticoagulation Tele phone Fu Start: 03-23-2025 End: 03-24-2025 Telephone encounter [facility] Comment on above: Anticoagulation Start: 03-22-2025 End: 03-22-2025 ambulatory ONEYDA RECINOS Facility:[facility] Start: 03-15-2025 End: 03-15-2025 Orders Only Oneyda Recinos MD Work Phone: Cardiology Comment on above: Atrial fibrillation, persistent (HCC) (Primary Dx) Start: 03-14-2025 End: 04-03-2025 Refill Oneyda Recinos MD Work Phone: Cardiology Comment on above: Refill Request (Sota lol-PENDING EKG) Start: 03-08-2025 ambulatory ELLEN Baxteri ty:[facility] Start: 03-08-2025 End: 03-08-2025 Subsequent hospital visit by physician Maryana Bailey MD Work Phone: [facility] Comment on above: Marginal ulcer [K28. 9] Start: 03-03-2025 End: 03-03-2025 Telephone encounter [facility] Comment on above: Anticoagulation Start: 03-02-2025 End: 03-02-2025 Telephone encounter [facility] Comment on above: Patient Update Start: 02-23-2025 End: 02-23-2025 ambulatory MARYANA BAILEY Facility:[facility] Start: 02-23-2025 Encounter for other preprocedural examination TRI PARKER [facility] Start: 02-20-2025 End: 02-20-2025 Telephone encounter [facility] Comment on above: Anticoagulation Start: 02-08-2025 End: 02-08-2025 Emergency department patient visit Dr. Enriqueta Duffy DO Work Phone: -Emergency Department Work Phone: Start: 02-08-2025 End: 02-08-2025 Patient encounter procedure Alecalba Roywhitney TOROREGISTERED DIET TECHNICIAN Work Phone: OB/Gynecology Comment on above: Surveillance of prev iously prescribed intrauterine contraceptive device (Primary Dx) Start: 02-08-2025 End: 02-08-2025 ambulatory ALEC BLAIR Facility:[facility] Start: 02-07-2025 End: 02-09-2025 Admission to same day surgery center Tiffany Walters RN Pre Anesthesia Comment on above: Preparations For Aliyah nathan (PACC) Start: 02-07-2025 End: 02-09-2025 ambulatory Tiffany Walters RN Pre Anesthesia Start: 02-07-2025 End: 02-07-2025 Telephone encounter Tiffany Walters RN Pre Anesthesia Comment on above: Preparations For Aliyah nathan (Preoperative Coumadin instructions) Start: 01-20-2025 End: 01-23-2025 Telephone encounter [facility] Comment on above: Anticoagulation Start: 01-13-2025 End: 03-15-2025 Follow-up encounter Yissel Atkinson APRN.REGISTERED DIET TECHNICIAN Work Phone: [facility] Start: 01-12-2025 End: 01-12-2025 ambulatory YISSEL ATKINSON Facility:[facility] Start: 01-12-2025 End: 01-12-2025 Office outpatient visit 15 minutes Yissel Atkinson 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.REGISTERED DIET TECHNICIAN Work Phone: [facility] Comment on above: Paroxysmal atrial fi brillation (HCC) (Primary Dx); Ventricular tachyarrhythmia (HCC); Dilated cardiomyopathy (HCC); 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; Vitamin D deficiency, unspecified; Rosacea Start: 01-11-2025 End: 01-11-2025 Patient encounter procedure Tri Parker MD Work Phone: Ophthalmology Comment on above: Rosacea keratitis (P rimary Dx); 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; Dry eye syndrome of both eyes; Irregular astigmatism of both eyes Start: 01-11-2025 End: 01-11-2025 ambulatory TRI PARKER Facility:[facility] Start: 01-11-2025 End: 01-11-2025 Patient encounter procedure Alec Blair APRN.CNP Work Phone: OB/Gynecology Comment on above: Encounter for IUD re moval and reinsertion (Primary Dx) Start: 01-04-2025 End: 01-09-2025 Telephone encounter [facility] Comment on above: Anticoagulation Start: 01-02-2025 End: 01-02-2025 Telephone encounter [facility]ist [facility] Comment on above: Anticoagulation Tele phone Fu Start: 01-01-2025 End: 01-01-2025 Telephone encounter Matt Chamberlain MD Work Phone: Cardiology Start: 12-09-2024 End: 12-12-2024 Refill Tri Parker MD Work Phone: [facility] Comment on above: Refill Request (Rest asis) Start: 12-08-2024 End: 12-12-2024 Telephone encounter [facility] Comment on above: Anticoagulation Tele phone Fu Start: 12-01-2024 End: 12-05-2024 Refill Tri Parker MD Work Phone: [facility] Comment on above: Refill Request Start: 11-23-2024 End: 11-23-2024 Telephone encounter [facility] Comment on above: Erroneous encounter- disregard Start: 11-04-2024 End: 12-09-2024 Telephone encounter [facility] Comment on above: Patient Update (Upda sheron home INR meter PAF) Start: 11-03-2024 End: 11-03-2024 Telephone encounter [facility]ist [facility] Comment on above: Anticoagulation Start: 11-03-2024 End: 11-03-2024 ambulatory ALEC BLAIR Facility:[facility] Start: 11-03-2024 End: 11-03-2024 Subsequent hospital visit by physician Screen Mammo [facility] Comment on above: Encounter for screen ing mammogram for breast cancer [Z12.31] Start: 10-26-2024 End: 10-26-2024 Refill Tri Parker MD Work Phone: [facility] Comment on above: Refill Request Start: 10-23-2024 End: 10-23-2024 Orders Only Oneyda Recinos MD Work Phone: Cardiology Comment on above: Atrial fibrillation, unspecified type (HCC) (Primary Dx); Paroxysmal atrial fibrillation (HCC) Start: 10-13-2024 End: 10-25-2024 Telephone encounter Milla Douglas [facility] Comment on above: Referral Update Start: 09-14-2024 End: 09-15-2024 Telephone encounter Milla Douglas [facility] Comment on above: Anticoagulation Tele phone Fu Start: 09-07-2024 End: 09-07-2024 Subsequent hospital visit by physician [facility] Work Phone: Cardiology Comment on above: Pacemaker reprogramm ing/check [Z45.018] Start: 09-07-2024 End: 09-07-2024 Patient encounter procedure Oneyda Recinos MD Work Phone: Cardiology Comment on above: Atrial fibrillation, unspecified type (HCC) (Primary Dx); HOCM (hypertrophic obstructive cardiomyopathy) (HCC) Start: 09-07-2024 End: 09-07-2024 ambulatory ONEYDA RECINOS Facility:[facility] Start: 08-31-2024 End: 08-31-2024 ambulatory Kylah Neela Blancoon Facility:[facility] Start: 08-26-2024 End: 08-26-2024 ambulatory Kylah Palma Facility:[facility] Start: 08-26-2024 End: 08-26-2024 Emergency department patient visit Kylah Palma Facility:[facility] Start: 08-25-2024 End: 08-25-2024 ambulatory ALEC BLAIR Facility:[facility] Start: 08-25-2024 End: 08-25-2024 Patient encounter procedure Alec Blair APRN.CNP Work Phone: OB/Gynecology Comment on above: Encounter for IUD in sertion (Primary Dx); Screening for cervical cancer; Encounter for gynecological examination (general) (routine) without abnormal findings; Encounter for screening for human papillomavirus (HPV); Encounter for screening mammogram for breast cancer; Encounter for IUD removal; Decreased libido Start: 08-25-2024 End: 08-25-2024 Patient encounter status Alec Blair APRN.REGISTERED DIET TECHNICIAN Work Phone: [facility] Start: 07-29-2024 End: 07-29-2024 Refill M Neela Palma PA-C Work Phone: [facility] Comment on above: Refill Request Start: 07-28-2024 End: 07-28-2024 Telephone encounter [facility] Comment on above: Anticoagulation Start: 07-22-2024 End: 07-22-2024 Telephone encounter Risa Fraser Cardiology Comment on above: Appointment (CALLED PT TO RESCHEDULE 09/26 APPTS/NO ANSWER, LEFT VM/PT HAS BEEN RESCHEDULED FOR 09/07 ) Start: 07-20-2024 End: 07-20-2024 Telephone encounter [facility] Comment on above: Anticoagulation Start: 07-14-2024 End: 07-14-2024 Office outpatient visit 25 minutes Yissel Atkinson APRN.CNP Work Phone: [facility] Comment on above: HOCM (hypertrophic o bstructive cardiomyopathy) (HCC) (Primary Dx); Encounter for immunization; Paroxysmal atrial fibrillation (HCC); Ventricular tachyarrhythmia (HCC); ICD (implantable cardioverter-defibrillator) in place; Ogdmp-Wperbftgb-Bxqtf (WPW) syndrome; S/P gastric bypass; Hair loss; Screening for depression; Encounter for screening examination for other mental health and behavioral disorders; Screening for cervical cancer Start: 07-13-2024 End: 07-13-2024 Telephone encounter [facility] Comment on above: Anticoagulation Tele phone Fu Start: 07-13-2024 End: 07-13-2024 Patient encounter procedure Tri Parker MD Work Phone: Ophthalmology Comment on above: Rosacea keratitis (P rimary Dx); 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; Dry eye syndrome of both eyes; Irregular astigmatism of both eyes Start: 07-07-2024 End: 07-07-2024 Telephone encounter [facility] Comment on above: Anticoagulation Tele phone Fu Start: 06-30-2024 End: 06-30-2024 Telephone encounter [facility] Comment on above: Anticoagulation Start: 06-20-2024 End: 06-20-2024 Telephone encounter [facility] Comment on above: Anticoagulation Tele phone Fu Start: 06-08-2024 End: 06-08-2024 Patient encounter procedure Tri Parker MD Work Phone: [facility] Comment on above: Rosacea keratitis (P rimary Dx); 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; Dry eye syndrome of both eyes Start: 06-08-2024 End: 06-08-2024 Telephone encounter Tri Parker MD Work Phone: [facility] Comment on above: Insurance Authorizat ion (Restasis) Start: 06-02-2024 End: 06-09-2024 Telephone encounter [facility] Comment on above: Anticoagulation Tele phone Fu Patient Question Start: 06-01-2024 End: 06-01-2024 Patient encounter procedure Oneyda Fajardo OD Work Phone: [facility] Comment on above: Rosacea keratitis (P rimary Dx); 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; Dry eye syndrome of both eyes; Irregular astigmatism of both eyes Start: 05-26-2024 End: 05-26-2024 Patient encounter procedure Oneyda Fajardo OD Work Phone: Ophthalmology Comment on above: Rosacea keratitis (P rimary Dx); 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; Dry eye syndrome of both eyes Start: 05-26-2024 End: 05-31-2024 Telephone encounter [facility] Comment on above: Anticoagulation Tele phone Fu Nurse Triage Call Start: 05-25-2024 End: 05-25-2024 Telephone encounter Tri Parker MD Work Phone: [facility] Comment on above: Forms Start: 05-19-2024 Telephone encounter [facility] Comment on above: Anticoagulation Tele phone Fu Start: 05-17-2024 Refill Tri Parker MD Work Phone: [facility] Comment on above: Refill Request Start: 05-16-2024 End: 05-16-2024 Patient encounter procedure Tri Parker MD Work Phone: [facility] Comment on above: Rosacea keratitis (P rimary Dx); 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; Dry eye syndrome of both eyes; Irregular astigmatism of both eyes Start: 05-16-2024 Telephone encounter Pharmacist [facility] Comment on above: Anticoagulation (Kaylyn e INR - MDINR) Start: 05-09-2024 End: 05-09-2024 Refill Kylah Palma PA-C Work Phone: [facility] Comment on above: Refill Request Rosacea keratitis (P rimary Dx); 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; Dry eye syndrome of both eyes; Irregular astigmatism of both eyes Start: 05-05-2024 Telephone encounter Pharmacist [facility] Comment on above: Anticoagulation (Kaylyn e INR) Patient Update; Allie ent Question Start: 05-03-2024 End: 05-03-2024 ambulatory TRI PARKER Facility:[facility] Start: 04-29-2024 Telephone encounter Tri kan MD Work Phone: [facility] Comment on above: Appointment (Surgery Arrival) Start: 04-28-2024 Telephone encounter Pharmacist [facility] Comment on above: Anticoagulation (Kaylyn e INR) Start: 04-15-[address] Work Phone: General Surgery Start: 04-14-2024 Telephone encounter Pharmacist [facility] Comment on above: Anticoagulation Start: 04-14-2024 End: 04-14-2024 Office outpatient visit 15 minutes Yissel Atkinson APRN.REGISTERED DIET TECHNICIAN Work Phone: [facility] Comment on above: Pre-op exam (Primary Dx) Start: 04-14-2024 End: 04-14-2024 Preprocedural examination done Yissel Atkinson APRN.REGISTERED DIET TECHNICIAN Work Phone: [facility] Work Phone: Start: 03-31-2024 Telephone encounter Pharmacist [facility] Comment on above: Anticoagulation Medical Clearance Start: 03-26-2024 Refill Cee james MD Work Phone: [facility] Comment on above: Refill Request Start: 03-24-2024 Telephone encounter Pharmacist [facility] Comment on above: Anticoagulation Tele phone Fu Start: 03-22-2024 Telephone encounter Tri kan MD Work Phone: [facility] Comment on above: Schedule Surgery Start: 03-17-2024 Telephone encounter Pharmacist [facility] Comment on above: Anticoagulation Tele phone Fu Start: 03-16-2024 End: 03-16-2024 Patient encounter procedure Tri Parker MD Work Phone: Ophthalmology Comment on above: Rosacea keratitis (P rimary Dx); Irregular astigmatism of both eyes; 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; Dry eye syndrome of both eyes Start: 03-15-2024 Orders Only Oneyda jerry MD Work Phone: Cardiology Comment on above: Atrial fibrillation, unspecified type (HCC) (Primary Dx) Start: 03-07-2024 Patient Outreach Carolina Glover RN Work Phone: [employer] Comment on above: 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 Start: 03-03-2024 Telephone encounter Milla Douglas [facility] Comment on above: Anticoagulation Tele phone Fu Start: 02-29-2024 End: 02-29-2024 Emergency department patient visit Kylah Palma Facility:[facility] Start: 02-29-2024 ambulatory Jessy Gramajo RN NU [facility] Comment on above: Health information Start: 02-29-2024 Patient encounter procedure Peggy Rodríguez RN NURSE [facility] Comment on above: Clinical Symptoms Start: 02-29-2024 Telephone encounter Carlos Castelan i, MD Work Phone: General Surgery Start: 02-25-2024 End: 02-25-2024 Admission to same day surgery center Alec Nation APRN.REGISTERED DIET TECHNICIAN Work Phone: General Surgery BMI Comment on above: S/P gastric bypass ( Primary Dx) Start: 02-25-2024 End: 02-25-2024 Telemedicine consultation with patient Alec Nation APRN.REGISTERED DIET TECHNICIAN Work Phone: General Surgery BMI Start: 02-18-2024 Telephone encounter Pharmacist [facility] Comment on above: Anticoagulation Tele phone Fu Start: 02-09-2024 Telephone encounter Pharmacist [facility] Comment on above: Anticoagulation Start: 02-04-2024 Follow-up encounter Oneyda cantu MD Work Phone: [facility] Start: 02-04-2024 Patient encounter procedure Oneyda Recinos MD Work Phone: [facility] Start: 01-27-2024 Refill Oneyda jerry MD Work Phone: Cardiology Start: 01-20-2024 Telephone encounter Pharmacist [facility] Comment on above: Anticoagulation Tele phone Fu Start: 01-18-2024 End: 01-18-2024 Emergency department patient visit [facility] Work Phone: Start: 01-14-2024 Telephone encounter Pharmacist [facility] Comment on above: Anticoagulation Start: 01-14-2024 End: 01-14-2024 Office outpatient visit 15 minutes Esperanza Mercer MD Work Phone: General Surgery Comment on above: S/P gastric bypass ( Primary Dx); Vitamin D deficiency, unspecified Start: 12-28-2023 Follow-up encounter Oneyda cantu MD Work Phone: [facility] Start: 12-28-2023 End: 12-28-2023 Patient encounter procedure Oneyda Recinos MD Work Phone: [facility] Comment on above: Atrial fibrillation, unspecified type (HCC) (Primary Dx); HOCM (hypertrophic obstructive cardiomyopathy) (HCC); Ventricular tachyarrhythmia (HCC) Start: 12-23-2023 Telephone encounter Pharmacist [facility] Comment on above: Anticoagulation Tele phone Fu Start: 12-16-2023 Telephone encounter Pharmacist [facility] Comment on above: Anticoagulation Start: 12-15-2023 Refill Tri Parker MD Work Phone: [facility] [place] Comment on above: Refill Request Start: 12-10-2023 Telephone encounter Pharmacist [facility] Comment on above: Anticoagulation Start: 12-07-2023 Refill M Neela mariano PA-C Work Phone: [facility] [place] Comment on above: Refill Request Start: 12-03-2023 Telephone encounter Pharmacist [facility] Comment on above: Anticoagulation (Kaylyn e INR) Refill Request Start: 11-19-2023 Telephone encounter Pharmacist [facility] Comment on above: Anticoagulation Start: 11-12-2023 Telephone encounter Pharmacist [facility] Comment on above: Anticoagulation Start: 11-11-2023 End: 11-11-2023 Subsequent hospital visit by physician Screen/Diagnostic Mammo [facility] Work Phone: Mammography Comment on above: Abnormal mammogram [ R92.8] Start: 11-05-2023 Follow-up encounter Oneyda cantu MD Work Phone: [facility] Start: 11-05-2023 ICD Remote F/U Oneyda jerry MD Work Phone: [facility] Start: 09-11-2023 Telephone encounter Natalya hedrick PA-C Work Phone: [facility] Comment on above: Results Start: 09-11-2023 End: 09-11-2023 Subsequent hospital visit by physician Xr [facility] Work Phone: Radiology Comment on above: Lumbar radiculopathy [M54.16] Start: 09-11-2023 End: 09-11-2023 Patient encounter procedure Natalya Ramos PA-C Work Phone: [facility] Comment on above: Lumbar radiculopathy (Primary Dx) Start: 09-09-2023 Telephone encounter Pharmacist [facility] Comment on above: Anticoagulation Start: 09-08-2023 End: 07-20-2024 Telephone encounter Milla Douglas [facility] Comment on above: Anticoagulation Tele phone Fu Start: 09-02-2023 Telephone encounter Pharmacist [facility] Comment on above: Anticoagulation Tele phone Fu Start: 09-02-2023 End: 09-02-[address] Work Phone: Endocrinology BMI Comment on above: Impaired intestinal absorption (Primary Dx); S/P gastric bypass; Overweight (BMI 25.0-29.9); Dietary counseling and surveillance Start: 09-02-2023 End: 09-02-2023 Telemedicine consultation with patient Karen Garrett RD Work Phone: [facility] Start: 08-28-2023 Telephone encounter Daphnie Holman [facility] Comment on above: Anticoagulation Tele phone Fu Start: 08-05-2023 Follow-up encounter Oneyda cantu MD Work Phone: [facility] Start: 08-05-2023 Get Medical Advice Priyanka packer 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.REGISTERED DIET TECHNICIAN Work Phone: Cardiology Comment on above: EKG order Anticoagulation Tele phone Fu Start: 08-05-2023 Patient encounter procedure Oneyda Recinos MD Work Phone: [facility] Start: 08-03-2023 Follow-up encounter Oneyda cantu MD Work Phone: [facility] Start: 08-03-2023 ICD Remote F/U Oneyda jerry MD Work Phone: [facility] Start: 07-30-2023 Telephone encounter Pharmacist [facility] Comment on above: Anticoagulation Start: 07-29-2023 End: 07-20-2024 Telephone encounter Milla Douglas [facility] Comment on above: Anticoagulation Tele phone Fu Start: 07-21-2023 Telephone encounter Milla Douglas [facility] Comment on above: Anticoagulation Tele phone Fu Start: 07-20-2023 Follow-up encounter Oneyda cantu MD Work Phone: [facility] Start: 07-20-2023 ICD Remote F/U Oneyda jerry MD Work Phone: [facility] Start: 07-16-2023 End: 07-16-2023 Patient encounter procedure Noah Vasquez MD Work Phone: Preventive Cardiology Comment on above: HOCM (hypertrophic o bstructive cardiomyopathy) (HCC) (Primary Dx); Paroxysmal atrial fibrillation (HCC); Overweight Start: 07-14-2023 Telephone encounter Pharmacist [facility] Comment on above: Anticoagulation Start: 07-09-2023 Refill Tri Parker MD Work Phone: [facility] Comment on above: Refill Request Start: 07-07-2023 Telephone encounter Tri kan MD Work Phone: [facility] Comment on above: Insurance Authorizat ion Start: 06-05-2023 End: 06-05-2023 ambulatory Edna Leigh LA Work Phone: General Surgery Comment on above: S/P gastric bypass ( Primary Dx); Obesity, Class I, BMI 30-34.9; Dietary counseling and surveillance Start: 06-05-2023 End: 06-05-2023 Telemedicine consultation with patient Edna Leihg [place] Work Phone: [facility] Start: 06-02-2023 Telephone encounter Kylah Palma PA-C Work Phone: [facility] Comment on above: Anticoagulation Start: 06-01-2023 ambulatory Kylah mariano PA-C Work Phone: [facility] [place] Comment on above: Warfain prescription Start: 06-01-2023 Telephone encounter Scooby Del Cid [facility] Comment on above: Anticoagulation Tele phone Fu (Lab INR Result/) Start: 05-14-2023 Telephone encounter [facility]re[facility] Comment on above: Anticoagulation Tele phone Fu (Lab INR Result) Start: 05-13-2023 End: 05-13-2023 Admission to [facility] 3 Work Phone: [facility] Start: 05-13-2023 End: 08-09-2023 ambulatory Pac 3 Work Phone: Pre Anesthesia Comment on above: Pre-op evaluation (P rimary Dx); Ornfu-Qvlmchvln-Viedj (WPW) syndrome; Paroxysmal atrial fibrillation (HCC); HOCM (hypertrophic obstructive cardiomyopathy) (HCC); ICD (implantable cardioverter-defibrillator) in place; Acute on chronic diastolic (congestive) heart failure (HCC); QUINTON (obstructive sleep apnea); S/P gastric bypass; Pre-diabetes; Obesity, Class I, BMI 30-34.9 Start: 05-13-2023 End: 05-13-[address] [facility] 3 Work Phone: [facility] Work Phone: Start: 05-10-2023 Telephone encounter Milla Douglas [facility] Comment on above: Anticoagulation Tele phone Fu Start: 05-08-2023 Telephone encounter Audra Mccollum [facility] Ambulatory [facility] Comment on above: Anticoagulation Tele phone Fu (INR Lab Result) Start: 05-07-2023 ambulatory Clementina Ny RN General Surgery Comment on above: 05/20/2023 Start: 05-07-2023 Telephone encounter Clementina Ny RN General Surgery Comment on above: Pre-Op Update Start: 05-07-2023 End: 05-07-2023 Office outpatient visit 25 minutes Esperanza Mercer MD Work Phone: General Surgery Comment on above: Symptomatic cholelit hiasis (Primary Dx); Obesity, Class I, BMI 30-34.9; S/P gastric bypass Start: 05-06-2023 Telephone encounter Clementina Ny RN General Surgery Comment on above: [facility] My Chart Follow- up Start: 05-04-2023 Telephone encounter Clementina Ny RN General Surgery Comment on above: [facility] My Chart Follow- up Start: 05-03-2023 End: 05-03-2023 Emergency department patient visit [facility] Work Phone: Start: 04-20-2023 Follow-up encounter Oneyda cantu MD Work Phone: [facility] Start: 04-20-2023 ICD Remote F/U Oneyda jerry MD Work Phone: [facility] Start: 04-16-2023 Telephone encounter Kylah Neela Palma PA-C Work Phone: [facility] [place] Comment on above: Anticoagulation Start: 04-14-2023 Chart abstracting [facility] Work Phone: Neurology Comment on above: CMN Start: 04-03-2023 Telephone encounter Scooby Del Cid [facility] Comment on above: Anticoagulation Tele phone Fu (Lab INR Result/) Start: 04-01-2023 Telephone encounter Lora Raza RP [facility] Comment on above: Anticoagulation Tele phone Fu (Home meter enrollment) Start: 03-27-2023 ambulatory Kylah Neela Francis mariano PA-C Work Phone: [facility] [place] Comment on above: question Start: 03-27-2023 E-mail encounter fro m caregiver Kylah Neela Palma PA-C Work Phone: [facility] Start: 03-27-2023 Telephone encounter Pharmacist [facility] Comment on above: Anticoagulation Tele phone Fu Start: 03-26-2023 Telephone encounter Jesu wilks MD Work Phone: Pulmonary Medicine Comment on above: Received Outside Med ical Records Start: 03-26-2023 End: 03-26-2023 Patient encounter procedure Kylah Neela Palma PA-C Work Phone: [facility] [place] Comment on above: Abnormal urine (Prim kimberly Dx); Paroxysmal atrial fibrillation (HCC); Acute on chronic diastolic (congestive) heart failure (HCC); Dilated cardiomyopathy (HCC); HOCM (hypertrophic obstructive cardiomyopathy) (HCC); ICD (implantable cardioverter-defibrillator) in place; 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; Impaired glucose tolerance; Obesity, Class II, BMI 35-39.9; QUINTON (obstructive sleep apnea); S/P ablation of accessory bypass tract; S/P gastric bypass; Evdrr-Pwvowspqw-Tecsf (WPW) syndrome Start: 03-24-2023 End: 03-24-2023 Postop follow up visit related to original px Esperanza Mercer MD Work Phone: General Surgery Comment on above: Bariatric surgery [facility] (Primary Dx); S/P gastric bypass; Postoperative state; Dysuria; 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; Obstructive sleep apnea (adult) (pediatric) Start: 03-21-2023 Telephone encounter Klarissa Olivia PRAFUL.REGISTERED DIET TECHNICIAN Work Phone: [facility] Comment on above: Results Start: 03-20-2023 Telephone encounter [facility] Comment on above: Anticoagulation Tele phone Fu (Lab INR Result) Start: 03-20-2023 End: 03-20-2023 Patient encounter procedure Elizabeth Mercado 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.REGISTERED DIET TECHNICIAN Work Phone: [facility] Comment on above: Dysuria (Primary Dx) Start: 03-16-2023 Telephone encounter [facility] Comment on above: Erroneous encounter- disregard Start: 03-16-2023 End: 03-16-2023 Anticoagulant drug monitoring Pharmacist 15 Work Phone: Pharmacy Comment on above: halfway (current) use of 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; Paroxysmal atrial fibrillation (HCC) Start: 03-12-2023 Orders Only Jayjay son MD Work Phone: [facility] Comment on above: 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 (Primary Dx) Start: 03-10-2023 ambulatory Jayjay son MD Work Phone: Cardiology Comment on above: Re: Metoprolol Paroxysmal atrial fi brillation (HCC) (Primary Dx) PAF (paroxysmal atri al fibrillation) (HCC) (Primary Dx) Re: Coumadin Start: 03-10-2023 E-mail encounter kei diaz caregiver Jayjay Ortiz MD Work Phone: [facility] Start: 03-10-2023 Telephone encounter Pharmacist [facility] Comment on above: Anticoagulation - In itial Consult Start: 03-09-2023 E-mail encounter kei m caregiver [facility] Provider [facility] Start: 03-09-2023 Patient encounter procedure [facility] Provider Endocrinology BMI Comment on above: Upcoming Nutrition A ppointment Start: 03-07-2023 End: 03-08-2023 Emergency department patient visit [facility] Start: 03-05-2023 End: 03-05-2023 Postop follow up visit related to original px Esperanza Mercer MD Work Phone: General Surgery Comment on above: S/P gastric bypass ( Primary Dx); Postoperative state Start: 03-04-2023 End: 03-04-[address] Work Phone: Endocrinology BMI Comment on above: Impaired intestinal absorption (Primary Dx); S/P gastric bypass; Obesity, Class II, BMI 35-39.9; Dietary counseling and surveillance Start: 03-04-2023 End: 03-04-2023 Telemedicine consultation with patient Karen Mckeejose TOVAR Work Phone: [facility] Start: 02-18-2023 Follow-up encounter Oneyda cantu MD Work Phone: [facility] Start: 02-18-2023 Patient encounter procedure Oneyda Recinos MD Work Phone: [facility] Start: 02-04-2023 End: 02-04-2023 ambulatory Amy Alvarado 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.REGISTERED DIET TECHNICIAN Work Phone: Neurology Comment on above: QUINTON (obstructive sle ep apnea) (Primary Dx); Paroxysmal atrial fibrillation (HCC) Start: 02-04-2023 End: 02-04-2023 Telemedicine consultation with patient Amy Alvarado 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.REGISTERED DIET TECHNICIAN Work Phone: [facility] Start: 02-02-2023 End: 02-02-[address] Work Phone: General Surgery Comment on above: Obesity, Class III, BMI 40-49.9 (morbid obesity) (HCC) (Primary Dx); Dietary counseling and surveillance Start: 02-02-2023 End: 02-02-2023 Telemedicine consultation with patient Edna Leigh RD Work Phone: [facility] Start: 01-29-2023 End: 01-29-2023 ambulatory Clementina Ny RN General Surgery Comment on above: Pre-Op Update Pre-op evaluation (P rimary Dx); HOCM (hypertrophic obstructive cardiomyopathy) (HCC); Lmpkf-Izdaiduxf-Goboj (WPW) syndrome; Paroxysmal atrial fibrillation (HCC); ICD (implantable cardioverter-defibrillator) in place; Acute on chronic diastolic (congestive) heart failure (HCC); QUINTON (obstructive sleep apnea); Body mass index 40.0-44.9, adult (HCC); Pre-diabetes Start: 01-29-2023 End: 01-29-2023 Admission to [facility] Main 4 Work Phone: [facility] Start: 01-29-2023 End: 01-29-2023 Patient encounter procedure Esperanza Mercer MD Work Phone: General Surgery Comment on above: Preoperative examina tion (Primary Dx); Body mass index 40.0-44.9, adult (HCC); Obstructive sleep apnea (adult) (pediatric); halfway (current) use of 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; Obesity, Class II, BMI 35-39.9 Start: 01-29-2023 End: 01-29-2023 Preprocedural examination done Esperanza Mercer MD Work Phone: General Surgery Start: 01-14-2023 End: 01-14-2023 Patient encounter procedure Tri Parker MD Work Phone: Ophthalmology Comment on above: Rosacea keratitis (P rimary Dx); 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; Irregular astigmatism of both eyes; Dry eye syndrome of both eyes Start: 12-19-2022 Preprocedural examination done Clementina Ny RN General Surgery Start: 12-19-2022 Refill Jayjay son MD Work Phone: Cardiology Comment on above: Refill Request 02/18/2023 Start: 12-15-2022 Telephone encounter Jesu wilks MD Work Phone: Pulmonary Medicine Comment on above: [facility] Start: 12-11-2022 End: 12-11-2022 Subsequent hospital visit by physician [facility] Work Phone: Radiology Comment on above: Liver nodule [K76.89 ] Start: 12-09-2022 End: 12-09-2022 Patient encounter procedure Tri Parker MD Work Phone: Ophthalmology Comment on above: Rosacea keratitis (P rimary Dx); 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; Irregular astigmatism of both eyes; Dry eye syndrome of both eyes Start: 12-05-2022 Chart abstracting [facility] Main Work Phone: Neurology Comment on above: CMN Start: 12-05-2022 Telephone encounter Paige DE LEON Work Phone: [facility] Comment on above: Results Start: 11-25-2022 End: 11-25-2022 Patient encounter procedure Jayjay Ortiz MD Work Phone: Cardiology Comment on above: HOCM (hypertrophic o bstructive cardiomyopathy) (HCC) (Primary Dx) Start: 11-19-2022 End: 11-19-2022 Patient encounter procedure Tri Parker MD Work Phone: Ophthalmology Comment on above: 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); Irregular astigmatism of both eyes; Dry eye syndrome of both eyes Start: 11-18-2022 Chart abstracting [facility] Main Work Phone: Neurology Comment on above: CMN Start: 11-10-2022 Telephone encounter Jayjay turner MD Work Phone: Cardiology Comment on above: Need Prior Auth - Me dication Start: 11-05-2022 End: 11-05-2022 Patient encounter procedure Amy Alvarado APRN.REGISTERED DIET TECHNICIAN Work Phone: Neurology Comment on above: QUINTON (obstructive sle ep apnea) (Primary Dx); Paroxysmal atrial fibrillation (HCC); Acute on chronic diastolic (congestive) heart failure (HCC) Start: 11-04-2022 ambulatory Oneyda jerry MD Work Phone: Cardiology Comment on above: Fax number Start: 11-03-2022 ambulatory Oneyda jerry MD Work Phone: Cardiology Comment on above: Paperwork Start: 10-27-2022 Follow-up encounter Oneyda cantu MD Work Phone: [facility] Start: 10-27-2022 ICD Remote F/U Oneyda jerry MD Work Phone: [facility] Start: 10-26-2022 End: 10-26-2022 Emergency department patient visit [facility] Start: 10-25-2022 Chart abstracting Siobhan garcia APRN.REGISTERED DIET TECHNICIAN Work Phone: General Surgery Start: 10-22-2022 End: 10-22-2022 Patient encounter procedure S Kishoreliana Owen APRN.REGISTERED DIET TECHNICIAN Work Phone: Cardiology Comment on above: HOCM (hypertrophic o bstructive cardiomyopathy) (HCC) (Primary Dx); Paroxysmal atrial fibrillation (HCC) Start: 10-22-2022 End: 10-22-[address] Work Phone: General Surgery Comment on above: Reassessment; Patien t Education HOCM (hypertrophic o bstructive cardiomyopathy) (HCC) (Primary Dx) echo results Start: 10-22-2022 E-mail encounter fro m caregiver Dillan Kishore Owen APRN.REGISTERED DIET TECHNICIAN Work Phone: [facility] Start: 10-20-2022 Follow-up encounter Oneyda cantu MD Work Phone: [facility] Start: 10-20-2022 ICD Remote F/U Oneyda jerry MD Work Phone: [facility] Start: 10-08-2022 Chart abstracting Sleep Center Main Work Phone: Neurology Comment on above: PSG Check In Start: 10-02-2022 End: 10-02-2022 Subsequent hospital visit by physician [facility] Work Phone: Radiology Comment on above: Class 3 obesity with alveolar hypoventilation, serious comorbidity, 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.9 in adult (HCC) [E66.2, Z68.41] Start: 09-29-2022 End: 09-29-2022 Patient encounter procedure Bridget Ruano APRN.REGISTERED DIET TECHNICIAN Work Phone: [facility] Comment on above: Acute midline low ba ck pain with left-sided sciatica (Primary Dx); Leukocytes in urine Start: 09-24-2022 End: 09-24-2022 Subsequent hospital visit by physician [facility] Work Phone: Radiology Comment on above: Class 3 obesity with alveolar hypoventilation, serious comorbidity, 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.9 in adult ([facility]) [E66.2, Z68.41] Start: 09-22-2022 Telephone encounter Clementina Ny RN General Surgery Comment on above: Appointment Start: 09-12-2022 End: 09-12-2022 Emergency department patient visit [facility] Start: 09-10-2022 End: 09-10-[address] General Surgery Comment on above: Patient Education; A ssessment Start: 09-08-2022 Documentation procedure Mammog dieter Coordinator [facility] Start: 09-08-2022 Letter encounter Mammography Coordinator [facility] Start: 09-04-2022 End: 09-04-2022 Subsequent hospital visit by physician Screen Mammo [facility] Mammogram Comment on above: Encounter for screen ing mammogram for breast cancer [Z12.31] Start: 08-04-2022 Refill Jayjay son MD Work Phone: Cardiology Comment on above: Refill Request Start: 07-26-2022 Get Medical Advice Monica Whiting APRN.REGISTERED DIET TECHNICIAN Work Phone: Preventive Cardiology Comment on above: Wegovy refill Start: 07-21-2022 End: 07-21-2022 Patient encounter procedure Sparkle Gimenez APRN.REGISTERED DIET TECHNICIAN Work Phone: [facility] Comment on above: [place] eye disease of both eyes (Primary Dx) Start: 07-17-2022 Orders Only Jayjay son MD Work Phone: Cardiology Comment on above: HOCM (hypertrophic o bstructive cardiomyopathy) (HCC) (Primary Dx) Start: 06-26-2022 End: 06-26-2022 [facility] Start: 06-12-2022 Telephone encounter Jaja Grubbs [facility] Comment on above: Appointment Start: 06-12-2022 End: 06-12-2022 ambulatory Radha Odin 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.REGISTERED DIET TECHNICIAN Work Phone: [facility] Comment on above: COVID-19 (Primary Dx ) Start: 06-12-2022 End: 06-12-2022 Telemedicine consultation with patient Radha Newby 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.REGISTERED DIET TECHNICIAN Work Phone: [facility] Start: 06-11-2022 End: 06-11-2022 Patient encounter procedure Tony Tavares 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.REGISTERED DIET TECHNICIAN Work Phone: [facility] Comment on above: Suspected COVID-19 v irus infection (Primary Dx) Start: 05-19-2022 Follow-up encounter Oneyda cantu MD Work Phone: [facility] Start: 05-19-2022 ICD Remote F/U Oneyda jerry MD Work Phone: [facility] Start: 04-22-2022 Orders Only Jayjay son MD Work Phone: Cardiology Comment on above: Paroxysmal atrial fi brillation (HCC) (Primary Dx) Start: 04-21-2022 Follow-up encounter Oneyda cantu MD Work Phone: [facility] Start: 04-21-2022 ICD Remote F/U Oneyda jerry MD Work Phone: [facility] Start: 04-21-2022 Refill Jayjay son MD Work Phone: Cardiology Comment on above: Refill Request Start: 03-22-2022 End: 03-22-2022 Emergency department patient visit [facility] Start: 02-20-2022 Refill Jayjay son MD Work Phone: Cardiology Comment on above: Refill Request Start: 02-18-2022 Refill Priyanka dacosta 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.REGISTERED DIET TECHNICIAN Work Phone: Cardiology Comment on above: Refill Request Start: 02-06-2022 End: 02-06-2022 Patient encounter procedure Kylah Palma PA-C Work Phone: [facility] Comment on above: Paroxysmal atrial fi brillation (HCC) (Primary Dx); Dilated cardiomyopathy (HCC); Acute on chronic diastolic (congestive) heart failure (HCC); ICD (implantable cardioverter-defibrillator) in place; HOCM (hypertrophic obstructive cardiomyopathy) (HCC); Lfemb-Jsaxztded-Qtdxo (WPW) syndrome; Left bundle branch block; Ventricular tachyarrhythmia (HCC); Palpitation; Thyroid nodule, cold; Impaired glucose tolerance; Class 3 severe obesity due to excess calories without serious comorbidity with body mass index (BMI) of 45.0 to 49.9 in adult (HCC); Elevated TSH; Chronic anticoagulation; Vaginal high risk HPV DNA test positive; Patient under care of multiple providers Start: 01-23-2022 End: 01-23-2022 Patient encounter procedure Fawn Whiting APRN.REGISTERED DIET TECHNICIAN Work Phone: Preventive Cardiology Comment on above: Mixed hyperlipidemia (Primary Dx); Obesity, Class III, BMI 40-49.9 (morbid obesity) (HCC); Prediabetes Start: 01-18-2022 Follow-up encounter Oneyda cantu MD Work Phone: [facility] Start: 01-18-2022 ICD Remote F/U Oneyda jerry MD Work Phone: [facility] Start: 12-26-2021 Refill Priyanka dacosta 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.REGISTERED DIET TECHNICIAN Work Phone: Cardiology Comment on above: Refill Request Start: 11-19-2020 End: 11-19-2020 Subsequent hospital visit by physician [facility] Cyn Work Phone: Radiology Comment on above: Sprain of left wrist , subsequent encounter [S63.502D] Start: 08-03-2020 Follow-up status [facility] Start: 11-18-2019 Patient encounter status Esthela Marin APRN.REGISTERED DIET TECHNICIAN Work Phone: [facility] Work Phone: Procedures Date Procedure Procedure Detail Performing Clinician Start: 06-08-2025 INR in Platelet poor plasma by Coagulation assay Oneyda Recinos MD Work Phone: Start: 05-01-2025 INR in Platelet poor plasma by Coagulation assay Oneyda Recinos MD Work Phone: Start: 04-06-2025 INR in Platelet poor plasma by Coagulation assay Oneyda Recinos MD Work Phone: Start: 03-22-2025 INR in Platelet poor plasma by Coagulation assay Oneyda Recinos MD Work Phone: Start: 03-08-2025 Esophagogastroduodenoscopy transoral diagnostic Esperanza Mercer MD Work Phone: Start: 03-02-2025 INR in Platelet poor plasma by Coagulation assay Oneyda Recinos MD Work Phone: Start: 02-18-2025 INR in Platelet poor plasma by Coagulation assay Oneyda Recinos MD Work Phone: Start: 02-08-2025 Computed tomography of abdomen and pelvis with intravenous contrast Dr. Enriqueta Duffy DO Work Phone: Start: 02-08-[address] Enriqueta Duffy DO Work Phone: Start: 01-19-2025 INR in Platelet poor plasma by Coagulation assay Oneyda Recinos MD Work Phone: Start: 01-11-2025 UA DIP,URINE HCG (POC) Alec Blair APRN. REGISTERED DIET TECHNICIAN Work Phone: Start: 01-04-2025 INR in Platelet poor plasma by Coagulation assay Oneyda Recinos MD Work Phone: Start: 01-01-2025 INR in Platelet poor plasma by Coagulation assay Oneyda Recinos MD Work Phone: Start: 12-07-2024 INR in Platelet poor plasma by Coagulation assay Oneyda Recinos MD Work Phone: Start: 11-02-2024 INR in Platelet poor plasma by Coagulation assay Oneyda Recinos MD Work Phone: Start: 09-14-2024 INR in Platelet poor plasma by Coagulation assay Jayjay Ortiz MD Work Phone: Start: 09-07-2024 Prgrmg dev eval implantable subq lead dfb system [facility] [place] Provider Start: 07-28-2024 Prothrombin time [facility] Provider Start: 07-20-2024 Prothrombin time [facility] Provider Start: 07-14-2024 Adult depression screening assessment Yissel Atkinson APRN.CNP Work Phone: Start: 07-13-2024 INR in Platelet poor plasma by Coagulation assay Jayjay Ortiz MD Work Phone: Start: 07-07-2024 INR in Platelet poor plasma by Coagulation assay Jayjay Ortiz MD Work Phone: Start: 06-29-2024 Prothrombin time [facility] Provider Start: 06-17-2024 INR in Platelet poor plasma by Coagulation assay Jayjay Ortiz MD Work Phone: Start: 06-02-2024 INR in Platelet poor plasma by Coagulation assay Jayjay Ortiz MD Work Phone: Start: 05-25-2024 Prothrombin time [facility] Provider Start: 05-18-2024 Prothrombin time [facility] Provider Start: 05-14-2024 Prothrombin time [facility] Provider Start: 05-04-2024 Prothrombin time [facility] Provider Start: 04-28-2024 Prothrombin time [facility] Provider Start: 04-14-2024 Prothrombin time [facility] Provider Start: 03-31-2024 Prothrombin time [facility] Provider Start: 03-24-2024 Prothrombin time [facility] Provider Start: 03-16-2024 Prothrombin time [facility] Provider Start: 02-17-2024 Prothrombin time [facility] Provider Start: 02-08-2024 Prothrombin time [facility] Provider Start: 02-04-2024 ICD REMOTE CHECK Oneyda Recinos MD Work Phone: Start: 01-20-2024 Prothrombin time [facility] Provider Start: 01-14-2024 Prothrombin time [facility] Provider Start: 12-28-2023 ICD CLINIC CHECK Oneyda Recinos MD Work Phone: Start: 12-23-2023 Prothrombin time [facility] Provider Start: 12-16-2023 Prothrombin time [facility] Provider Start: 12-10-2023 Prothrombin time [facility] Provider Start: 12-03-2023 Prothrombin time [facility] Provider Start: 11-18-2023 Prothrombin time [facility] Provider Start: 11-12-2023 Prothrombin time [facility] Provider Start: 11-11-2023 Digital breast tomosynthesis unilateral Ellen Jeter MD Work Phone: Start: 11-05-2023 ICD REMOTE CHECK Oneyda Recinos MD Work Phone: Start: 09-11-2023 Radex hip unilateral with pelvis 2-3 views Natalya Ramos PA-C Work Phone: Start: 09-09-2023 Prothrombin time [facility] Provider Start: 09-01-2023 Prothrombin time [facility] Provider Start: 08-05-2023 ICD CLINIC CHECK Oneyda Recinos MD Work Phone: Start: 08-03-2023 ICD REMOTE CHECK Oneyda Recinos MD Work Phone: Start: 07-30-2023 Prothrombin time [facility] Provider Start: 07-21-2023 Prothrombin time [facility] Provider Start: 07-20-2023 ICD REMOTE CHECK Oneyda Recinos MD Work Phone: Start: 07-13-2023 Prothrombin time [facility] Provider Start: 05-03-2023 US scan of gallbladder Start: 04-20-2023 ICD REMOTE CHECK Oneyda Recinos MD Work Phone: Start: 03-26-2023 Culture bacterial quanttative colony count urine Kylah Palma PA-C Work Phone: Start: 03-26-2023 Urnls dip stick/tablet rgnt auto w/o microscopy Kylah Palma PA-C Work Phone: Start: 03-20-2023 Urnls dip stick/tablet rgnt auto w/o microscopy Elizabeth Mercado 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.REGISTERED DIET TECHNICIAN Work Phone: Start: 03-16-2023 Prothrombin time [facility] Provider Start: 03-07-2023 Plain chest X-ray Start: 02-18-2023 ICD CLINIC CHECK Oneyda Recinos MD Work Phone: Start: 12-11-2022 Us abdominal real time w/image limited Meredith Avila PA-C Work Phone: Start: 11-19-2022 Clsr lacrimal punctum plug each Tri gutierrez MD Work Phone: Start: 11-19-2022 Computerized corneal topography uni/bi Tri Parker MD Work Phone: Start: 10-27-2022 ICD REMOTE CHECK Oneyda Recinos MD Work Phone: Start: 10-26-2022 Plain chest X-ray Start: 10-20-2022 ICD REMOTE CHECK Oneyda Recinos MD Work Phone: Start: 10-02-2022 Radiologic exam chest 2 views Siobhan charles 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.REGISTERED DIET TECHNICIAN Work Phone: Start: 09-29-2022 Culture bacterial quanttative colony count urine Bridget Ruano 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.REGISTERED DIET TECHNICIAN Work Phone: Start: 09-29-2022 Urnls dip stick/tablet rgnt auto w/o microscopy Bridget Ruano 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.REGISTERED DIET TECHNICIAN Work Phone: Start: 09-24-2022 Us abdominal real time w/image limited Siobhan Sellers 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.REGISTERED DIET TECHNICIAN Work Phone: Start: 09-04-2022 End: 09-04-2022 Mammography Bulk Order Provider Start: 06-26-2022 Plain chest X-ray Start: 05-19-2022 ICD REMOTE CHECK Oneyda Recinos MD Work Phone: Start: 04-21-2022 ICD REMOTE CHECK Oneyda Recinos MD Work Phone: Start: 03-22-2022 Plain chest X-ray Start: 01-18-2022 ICD REMOTE CHECK Oneyda Recinos MD Work Phone: Start: 03-16-2021 Adult depression screening assessment Priyanka Marin APRN.GENIE Work Phone: Start: 11-19-2020 Radex wrist complete minimum 3 views M Neela Palma PA-C Work Phone: Start: 10-23-2020 Mammography Priyanka Marin APRN.REGISTERED DIET TECHNICIAN Work Phone: Plan of Treatment Date Care Activity Detail Author Start: 08-26-2034 Urine microalbumin profile DTaP,Tdap,Td Vaccine (3 - Td or Tdap) [facility] Start: 08-25-2029 Screening for malignant neoplasm of cervix Cervical Cancer Screening [facility] Start: 07-14-2029 Screening for malignant neoplasm of cervix Cervical Cancer Screening [facility] Start: 06-02-2026 Urine microalbumin profile [facility] Start: 01-12-2026 Annual PCP Team Chronic Disease Visit Annual PCP Team Chronic Disease Visit [facility] Start: 11-03-2025 Screening for malignant neoplasm of breast Mammogram Screening [facility] Start: 08-30-2025 End: 08-30-2025 Patient encounter procedure OB/Gynecology Comment on above: Annual Start: 07-14-2025 Annual PCP Team Chronic Disease Visit Annual PCP Team Chronic Disease Visit [facility] Start: 07-14-2025 Anxiety Screening Anxiety Screening [facility] Start: 07-14-2025 Covid-19 Vaccine ( season) Covid-19 Vaccine () [facility] Comment on above: Postponed from 06/05/2024 (Declined at t his time) Start: 07-14-2025 Depression Screening Depression Screening [facility] Start: 07-13-2025 End: 07-13-2025 Patient encounter procedure 07/13/2025 9:00 AM EDT Office Visit [facility] [place] [address] [place], [place] [id number] Yissel Atkinson 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.REGISTERED DIET TECHNICIAN [address] [place], [place] [id number] Physical [facility] [place] Comment on above: Physical Start: 07-12-2025 End: 07-12-2025 Patient encounter procedure 07/12/2025 8:30 AM EDT Office Visit [facility] [address] [place] [address] Tri Parker MD [address] [place] [address] Diagnostics[facility] [address] [id number] 5 MTH F/U DILATED EXAM Ophthalmology Comment on above: 5 MTH F/U DILATED EXAM Start: 06-14-2025 End: 06-14-2025 Patient encounter procedure Ophthalmology Comment on above: 5 MTH F/U DILATED EXAM Start: 06-05-2025 Influenza vaccination Influenza Vaccine (#1) [facility] Start: 05-10-2025 End: 05-10-2025 ambulatory [facility] Start: 04-19-2025 End: 04-19-2025 ambulatory 04/19/2025 3:30 PM EDT Procedure Cardiology [address] [place] [address] Dx: Atrial fibrillation, persistent (HCC) [I48.19] Cardiology Comment on above: Dx: Atrial fibrillation, persistent (HCC ) [I48.19] Start: 03-08-2025 End: 03-08-2025 Patient encounter procedure [facility] Endoscopy Start: 02-23-2025 End: 02-23-2025 Anesthesia consultation 02/23/2025 9:20 AM EDT PAT Pre [facility] [address] [facility] [place] [address] 1, [facility] [place] [address] [place], [place] [address] [address] 03/08 Pre Anesthesia Comment on above: 03/08 Start: 02-08-2025 [facility] Start: 02-08-2025 End: 02-08-2025 Patient encounter procedure 02/08/2025 8:15 AM EDT Office Visit OB/Gynecology [address] [place] [address] Alec Blair APRN.REGISTERED DIET TECHNICIAN [address] [place] [address] IUD follow up OB/Gynecology Comment on above: IUD follow up Start: 01-12-2025 End: 04-13-2025 Comprehensive metabolic 2000 panel - Serum or Plasma [facility] Work Phone: Comment on above: Expected: 01/12/2025, Expires: Start: 01-12-2025 End: 01-12-2025 Patient encounter procedure 01/12/2025 10:00 AM EDT Office Visit Family Medicine [facility] [address] [place] [address] Yissel Atkinson APRN.REGISTERED DIET TECHNICIAN [address] [place] [address] 6 month follow up Family Medicine [facility] Comment on above: 6 month follow up Start: 01-11-2025 End: 01-11-2025 Patient encounter procedure 01/11/2025 10:15 AM EDT Office Visit [facility] [address] [place] [address] Tri Parker MD [address] [place] [address] Dilated exam Ophthalmology Comment on above: Dilated exam Start: 01-11-2025 End: 01-11-2025 Patient encounter procedure 01/11/2025 8:15 AM EDT Office Visit OB/Gynecology [address] [place] [address] Alec Bliar APRN.REGISTERED DIET TECHNICIAN [address] [place] [address] Encounter for IUD insertion [Z30.430] OB/Gynecology Comment on above: Encounter for IUD insertion [Z30.430] Start: 11-03-2024 End: 11-03-2024 Patient encounter procedure 11/03/2024 7:30 AM EST Appointment Mammogram [address] [place] [address] Encounter for screening mammogram for breast cancer [Z12.31] Mammogram Comment on above: Encounter for screening mammogram for br east cancer [Z12.31] Start: 09-30-2024 Screening for malignant neoplasm of breast Mammogram Screening [facility] Start: 09-26-2024 End: 09-26-2024 Patient encounter procedure 09/26/2024 9:15 AM EST Office Visit Cardiology [address] [place] [address] Oneyda Recinos MD [address] [place] [address] Paroxysmal atrial fibrillation (HCC) [I48.0]; 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 [Z79.01]; HOCM (hypertrophic obstructive cardiomyopathy) (HCC) [I42.1]; 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]; 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.890] Cardiology Comment on above: Paroxysmal atrial fibrillation (HCC) [I4 8.0]; 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 [Z79.01]; HOCM (hypertrophic obstructive cardiomyopathy) (HCC) [I42.1]; ICD (implantable cardioverter-defibrillator) in place [Z95.810]; 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.890] Start: 09-26-2024 End: 09-26-2024 ambulatory 09/26/2024 8:30 AM EST Results Only Cardiology [address] [place] [address] Paroxysmal atrial fibrillation (HCC) [I48.0]; 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 [Z79.01]; HOCM (hypertrophic obstructive cardiomyopathy) (HCC) [I42.1]; 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]; 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.890] Cardiology Comment on above: Paroxysmal atrial fibrillation (HCC) [I4 8.0]; halfway (current) use of 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 [Z79.01]; HOCM (hypertrophic obstructive cardiomyopathy) (HCC) [I42.1]; ICD (implantable cardioverter-defibrillator) in place [Z95.810]; 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.890] Start: 09-24-2024 Annual PCP Team Chronic Disease Visit Annual PCP Team Chronic Disease Visit [facility] Start: 09-07-2024 End: 09-07-2024 Patient encounter procedure 09/07/2024 9:00 AM EST Office Visit Cardiology [address] [place] [address] Oneyda Recinos MD [address] [place] [address] AFIB Cardiology Comment on above: AFIB Start: 09-07-2024 End: 09-07-2024 ambulatory 09/07/2024 8:15 AM EST Results Only Cardiology [address] [place] [address] AFIB Cardiology Comment on above: AFIB Start: 08-25-2024 End: 08-25-2024 Patient encounter procedure 08/25/2024 7:45 AM EST Office Visit OB/Gynecology [address] [place] [address] Alec Blair APRN.REGISTERED DIET TECHNICIAN [address] [place] [address] Screening for cervical cancer [Z12.4] OB/Gynecology Comment on above: Screening for cervical cancer [Z12.4] Start: 07-14-2024 End: 07-14-2024 Patient encounter procedure 07/14/2024 2:20 PM EDT Office Visit Family Medicine [facility] [address] [place] [address] Yissel Atkinson APRN.REGISTERED DIET TECHNICIAN [address] [place] [address] 3 month f/u Family Medicine [facility] Comment on above: 3 month f/u Start: 07-14-2024 End: 10-13-2024 25-hydroxyvitamin D3 [Mass/volume] in Serum or Plasma [facility] Comment on above: Expected: 07/14/2024, Expires: Start: 07-14-2024 End: 10-13-2024 Cobalamin (Vitamin B12) [Mass/volume] in Serum or Plasma [facility] Comment on above: Expected: 07/14/2024, Expires: Start: 07-14-2024 End: 10-13-2024 Comprehensive metabolic 2000 panel - Serum or Plasma [facility] Work Phone: Comment on above: Expected: 07/14/2024, Expires: Start: 07-14-2024 End: 10-13-2024 LIPID PANEL, NONFASTING [facility] Comment on above: Expected: 07/14/2024, Expires: Start: 07-14-2024 End: 10-13-2024 Magnesium [Mass/volume] in Serum or Plasma [facility] Comment on above: Expected: 07/14/2024, Expires: Start: 07-14-2024 End: 10-13-2024 Thyrotropin [Units/volume] in Serum or Plasma [facility] Comment on above: Expected: 07/14/2024, Expires: Start: 07-14-2024 End: 07-14-2024 Patient encounter procedure 07/14/2024 9:20 AM EDT Office Visit Family Medicine [facility] [address] [place] [address] Kylah Palma PA-C [address] [place] [address] 3 month f/u Family Medicine [facility] Comment on above: 3 month f/u Start: 07-13-2024 End: 07-13-2024 Patient encounter procedure 07/13/2024 10:15 AM EDT Office Visit OP[facility] Ophthalmology [address] [place] [address] Tri Parker MD [address] [place] [address] 1-2 ,month follow up Ophthalmology Comment on above: 1-2 ,month follow up Start: 06-08-2024 End: 06-08-2024 Patient encounter procedure 06/08/2024 3:45 PM EDT Office Visit [facility] [address] [place] [address] Tri Parker MD [address] [place] [address] Return in about 2 weeks (around 05/30/2024). [facility] Comment on above: Return in about 2 weeks (around ). Start: 06-05-2024 Covid-19 Vaccine ( season) Covid-19 Vaccine () [facility] Start: 06-05-2024 Covid-19 Vaccine ( season) Covid-19 Vaccine () [facility] Start: 06-05-2024 Influenza vaccination [facility] Start: 06-01-2024 End: 06-01-2024 Patient encounter procedure 06/01/2024 12:45 PM EDT Office Visit [facility] [address] [place] [address] Oneyda Fajardo, KOBY [address] [place] [address] Schedule one week with me in 06/01, okay to double if no slots available [facility] Comment on above: Schedule one week with me in 06/01, okay to double if no slots available Start: 05-16-2024 End: 05-16-2024 Patient encounter procedure 05/16/2024 4:00 PM EDT Office Visit [facility] [address] [facility] [address] Tri Parker MD [address] [place] [address] Return in about 1 week (around 05/16/2024). [facility] Comment on above: Return in about 1 week (around 05/16/2024 ). Start: 05-11-2024 End: 05-11-2024 Patient encounter procedure 05/11/2024 1:00 PM EDT Office Visit [facility] [address] 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 213] Start: 04-15-2024 End: 04-15-2024 Admission to same day surgery center 04/15/2024 3:00 PM EDT [facility] General Surgery [address] [place] [address] Jamaal Patterson, [place] [address] [place], [place] [id number] post op 1yr gastric bypass in 02/08/2023 i left a detailed voicemail regarding these appointments General Surgery Comment on above: post op 1yr gastric bypass in 02/08/2023 i left a detailed voicemail regarding these appointments Start: 04-14-2024 End: 04-14-2024 Patient encounter procedure Family Medicine [facility] Comment on above: 6 month f/u pre op Dr Parker 04/06 10/28 Start: 04-08-2024 End: 04-08-2024 Patient encounter procedure 04/08/2024 2:45 PM EDT Office Visit Cardiology [address] [place] [address] Jayjay Ortiz MD [address] [place] [address] per HVI follow up order Cardiology Comment on above: per HVI follow up order Start: 04-08-2024 End: 04-08-2024 Patient encounter procedure 04/08/2024 1:30 PM EDT Appointment Cardiology [address] [place] [address] Dx: HOCM (hypertrophic obstructive cardiomyopathy) (HCC) [I42.1 (ICD-10-CM)] Cardiology Comment on above: Dx: HOCM (hypertrophic obstructive cardi omyopathy) (HCC) [I42.1 (ICD-10-CM)] Start: 04-08-2024 End: 04-08-2024 ambulatory 04/08/2024 12:45 PM EDT Results Only Cardiology [address] [place] [address] Dx: HOCM (hypertrophic obstructive cardiomyopathy) (HCC) [I42.1 (ICD-10-CM)] Cardiology Comment on above: Dx: HOCM (hypertrophic obstructive cardi omyopathy) (HCC) [I42.1 (ICD-10-CM)] Start: 04-03-2024 [facility]: Postponed from 06/05/2023 (Declined at t his time) Start: 03-26-2024 ANNUAL PCP TEAM CHRONIC DISEASE VISIT ANNUAL PCP TEAM CHRONIC DISEASE VISIT [facility] Start: 03-24-2024 End: 03-24-2024 Patient encounter procedure 03/24/2024 10:00 AM EDT Office Visit Family Medicine [facility] [address] [place] [address] Kylah Palma PA-C [address] [place] [address] 6 month f/u Family Medicine [facility] Comment on above: 6 month f/u Start: 03-16-2024 End: 03-16-2024 Patient encounter procedure 03/16/2024 11:15 AM EDT Office Visit [facility] Ophthalmology [address] [place] [address] Tri Parker MD [address] [place] [address] (rescheduled from 12/15) Return in about 6 months 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 Ophthalmology Comment on above: (rescheduled from 12/15) Return in about 6 months 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 Start: 02-25-2024 End: 02-25-2024 Admission to same day surgery center 02/25/2024 3:30 PM EDT [facility] General Surgery BMI [address] [place] [address] Alec Nation, PRAFUL.REGISTERED DIET TECHNICIAN [address] [place] [address] post op 1yr gastric bypass in 02/08/2023 i left a detailed voicemail regarding these appointments General Surgery BMI Comment on above: post op 1yr gastric bypass in 02/08/2023 i left a detailed voicemail regarding these appointments Start: 02-25-2024 End: 05-26-2024 25-hydroxyvitamin D3 [Mass/volume] in Serum or Plasma VITAMIN D 25 HYDROXY Lab Routine S/P gastric bypass Expected: 02/25/2024, Expires: 05/26/2024 [facility] Comment on above: Expected: 02/25/2024, Expires: Start: 02-25-2024 End: 05-26-2024 CBC W Auto Differential panel - Blood COMPLETE BLOOD COUNT AND DIFFERENTIAL Lab Routine S/P gastric bypass Expected: 02/25/2024, Expires: 05/26/2024 [facility] Work Phone: Comment on above: Expected: 02/25/2024, Expires: 4 Start: 02-25-2024 End: 05-26-2024 Cobalamin (Vitamin B12) [Mass/volume] in Serum or Plasma VITAMIN B12 Lab Routine S/P gastric bypass Expected: 02/25/2024, Expires: 05/26/2024 [facility] Comment on above: Expected: 02/25/2024, Expires: 4 Start: 02-25-2024 End: 05-26-2024 Comprehensive metabolic 2000 panel - Serum or Plasma COMPREHENSIVE METABOLIC PANEL Lab Routine S/P gastric bypass Expected: 02/25/2024, Expires: 05/26/2024 [facility] Comment on above: Expected: 02/25/2024, Expires: Start: 02-25-2024 End: 05-26-2024 Ferritin [Mass/volume] in Serum or Plasma FERRITIN Lab Routine S/P gastric bypass Expected: 02/25/2024, Expires: 05/26/2024 [facility] Comment on above: Expected: 02/25/2024, Expires: Start: 02-25-2024 End: 05-26-2024 Folate [Mass/volume] in Serum or Plasma FOLATE, SERUM Lab Routine S/P gastric bypass Expected: 02/25/2024, Expires: 05/26/2024 [facility] Comment on above: Expected: 02/25/2024, Expires: Start: 02-25-2024 End: 05-26-2024 Hemoglobin A1c in Blood HEMOGLOBIN A1C Lab Routine S/P gastric bypass Expected: 02/25/2024, Expires: 05/26/2024 [facility] Comment on above: Expected: 02/25/2024, Expires: Start: 02-25-2024 End: 05-26-2024 Iron and Iron binding capacity panel - Serum or Plasma IRON AND TIBC Lab Routine S/P gastric bypass Expected: 02/25/2024, Expires: 05/26/2024 [facility] Comment on above: Expected: 02/25/2024, Expires: Start: 02-25-2024 End: 05-26-2024 Lipid 1996 panel - Serum or Plasma LIPID PANEL BASIC Lab Routine S/P gastric bypass Expected: 02/25/2024, Expires: 05/26/2024 [facility] Comment on above: Expected: 02/25/2024, Expires: Start: 02-25-2024 End: 05-26-2024 Thyrotropin [Units/volume] in Serum or Plasma THYROID STIMULATING HORMONE Lab Routine S/P gastric bypass Expected: 02/25/2024, Expires: 05/26/2024 [facility] Comment on above: Expected: 02/25/2024, Expires: Start: 02-25-2024 End: 05-26-2024 VITAMIN B1 (THIAMINE), WHOLE BLOOD VITAMIN B1 (THIAMINE), WHOLE BLOOD Lab Routine S/P gastric bypass Expected: 02/25/2024, Expires: 05/26/2024 [facility] Comment on above: Expected: 02/25/2024, Expires: Start: 02-19-2024 End: 02-19-2024 Admission to same day surgery center 02/19/2024 2:15 PM EDT [facility] Surgery [address] [place] [id number] Jamaal Patterson, RD [address] [place] [id number] post op 1yr gastric bypass in 02/08/2023 i left a detailed voicemail regarding these appointments General Surgery Comment on above: post op 1yr gastric bypass in 02/08/2023 i left a detailed voicemail regarding these appointments Start: 01-18-2024 [facility] Start: 10-05-2023 Behavioral Health Screening Behavioral Health Screening [facility] Start: 10-05-2023 Depression Assessment Depression Assessment [facility] Start: 09-25-2023 End: 11-25-2023 CBC W Auto Differential panel - Blood CBC + DIFF Lab Routine S/P ablation of accessory bypass tract S/P gastric bypass Expected: 09/25/2023, Expires: 11/25/2023 [facility] Work Phone: Comment on above: Expected: 09/25/2023, Expires: 4 Start: 09-25-2023 End: 11-25-2023 Comprehensive metabolic 2000 panel - Serum or Plasma COMP METABOLIC PANEL Lab Routine S/P ablation of accessory bypass tract S/P gastric bypass Expected: 09/25/2023, Expires: 11/25/2023 [facility] Work Phone: Comment on above: Expected: 09/25/2023, Expires: 4 Start: 09-25-2023 End: 11-25-2023 Hemoglobin A1c in Blood HGB A1C Lab Routine Impaired glucose tolerance Expected: 09/25/2023, Expires: 11/25/2023 [facility] Work Phone: Comment on above: Expected: 09/25/2023, Expires: Start: 09-04-2023 Mammography [facility] Start: 06-12-2023 ANNUAL PCP TEAM CHRONIC DISEASE VISIT ANNUAL PCP TEAM CHRONIC DISEASE VISIT [facility] Start: 06-05-2023 Covid-19 Vaccine () Covid-19 Vaccine () [facility] Start: 06-05-2023 Influenza vaccination [facility] Start: 03-13-2023 End: 05-13-2023 PT panel - Platelet poor plasma by Coagulation assay PROTHROMBIN TIME/PT Lab Routine PAF (paroxysmal atrial fibrillation) (HCC) Expected: 03/13/2023 (Approximate), Expires: 05/13/2023 [facility] Work Phone: Comment on above: Expected: 03/13/2023 (Approximate), Expi res: 05/13/2023 Start: 03-07-2023 [facility] Start: 02-06-2023 ANNUAL PCP TEAM CHRONIC DISEASE VISIT ANNUAL PCP TEAM CHRONIC DISEASE VISIT [facility] Start: 02-06-2023 COVID-19 VACCINE (#1) COVID-19 VACCINE (#1) [facility] Comment on above: Postponed from 1985 (Declined at t his time) Postponed from 12/31 (Declined at this time) Start: 02-06-2023 COVID-19 VACCINE (1) COVID-19 VACCINE (1) [facility] Comment on above: Postponed from 1985 (Declined at t his time) Start: 02-06-2023 HPV TESTING HPV TESTING [facility] Comment on above: Postponed from 01/20/2022 (Currently Jah eduled) Start: 02-06-2023 PAP TESTING PAP TESTING [facility] Comment on above: Postponed from 01/20/2022 (Currently Jah eduled) Start: 01-08-2023 End: 01-09-2024 CBC W Auto Differential panel - Blood CBC + DIFF Lab Routine Class 3 severe obesity due to excess calories with serious comorbidity 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.9 in adult (HCC) Hypertrophic obstructive cardiomyopathy (HOCM) (HCC) Pre-op examination Expected: 01/08/2023, Expires: 01/09/2024 [facility] Work Phone: Comment on above: Expected: 01/08/2023, Expires: 4 Start: 01-08-2023 End: 03-10-2023 Coagulation factor VIII activity actual/normal in Platelet poor plasma by Coagulation assay FACTOR VIII:C ASSAY Lab Routine Class 3 severe obesity due to excess calories with serious comorbidity 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.9 in adult (HCC) Hypertrophic obstructive cardiomyopathy (HOCM) (HCC) Pre-op examination Expected: 01/08/2023, Expires: 03/10/2023 [facility] Work Phone: Comment on above: Expected: 01/08/2023, Expires: 3 Start: 01-08-2023 End: 01-09-2024 Comprehensive metabolic 2000 panel - Serum or Plasma COMP METABOLIC PANEL Lab Routine Class 3 severe obesity due to excess calories with serious comorbidity 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.9 in adult (HCC) Hypertrophic obstructive cardiomyopathy (HOCM) (HCC) Pre-op examination Expected: 01/08/2023, Expires: 01/09/2024 [facility] Work Phone: Comment on above: Expected: 01/08/2023, Expires: 4 Start: 01-08-2023 End: 01-09-2024 TYPE AND SCREEN,30 DAY TYPE AND SCREEN,30 DAY Blood Bank Routine Class 3 severe obesity due to excess calories with serious comorbidity 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.9 in adult (HCC) Hypertrophic obstructive cardiomyopathy (HOCM) (HCC) Pre-op examination Expected: 01/08/2023, Expires: 01/09/2024 [facility] Work Phone: Comment on above: Expected: 01/08/2023, Expires: Start: 10-05-2022 DEPRESSION ASSESSMENT DEPRESSION ASSESSMENT [facility] Start: 2022 PAP TESTING PAP TESTING [facility] Start: 06-26-2022 Troponin I measurement [facility] Work Phone: Start: 06-26-2022 [facility] Work Phone: Start: 06-11-2022 End: 06-25-2022 SARS-CoV-2 (COVID-19) RNA [Presence] in Respiratory specimen by LAUREN with probe detection 2019 CORONAVIRUS Microbiology Routine Suspected COVID-19 virus infection Expected: 06/11/2022, Expires: 06/25/2022 [facility] Work Phone: Comment on above: Expected: 06/11/2022, Expires: 2 Start: 06-05-2022 Influenza vaccination [facility] Start: 04-22-2022 End: 06-22-2022 CBC panel - Blood by Automated count CBC Lab Routine Paroxysmal atrial fibrillation (HCC) Expected: 04/22/2022, Expires: 06/22/2022 [facility] Work Phone: Comment on above: Expected: 04/22/2022, Expires: 2 Start: 03-22-2022 Blood chemistry [facility] Work Phone: Start: 03-22-2022 End: 03-22-2022 [facility] Work Phone: Start: 03-16-2022 Adult depression screening assessment DEPRESSION SCREENING [facility] Start: 01-20-2022 HPV TESTING HPV TESTING [facility] Start: 01-20-2022 PAP TESTING PAP TESTING [facility] Start: 01-20-2022 Screening for malignant neoplasm of cervix [facility] Start: 11-19-2021 ANNUAL PCP TEAM CHRONIC DISEASE VISIT ANNUAL PCP TEAM CHRONIC DISEASE VISIT [facility] Start: 10-23-2021 Mammography MAMMOGRAM [facility] Start: 10-05-2021 DEPRESSION ASSESSMENT DEPRESSION ASSESSMENT [facility] Start: 08-28-2021 PNEUMOCOCCAL (2 - PCV) PNEUMOCOCCAL (2 - PCV) [facility] Start: 08-28-2021 Pneumococcal vaccination [facility] Start: 07-10-2017 End: 07-10-2017 Appointment Appointment [facility] Work Phone: Start: 2007 HPV Vaccine (1 - 3-dose SCDM series) HPV Vaccine (1 - 3-dose SCDM series) [facility] Start: 1999 Hepatitis B Vaccine (1 of 3 - 19+ 3-dose series) Hepatitis B Vaccine (1 of 3 - 19+ 3-dose series) [facility] Start: 1998 Anxiety Screening Anxiety Screening [facility] Start: 1998 Depression Screening Depression Screening [facility] Start: 1985 COVID-19 VACCINE (1) COVID-19 VACCINE (1) [facility] Start: 1980 COVID-19 VACCINE (#1) COVID-19 VACCINE (#1) [facility] Start: 1980 Dental Oral Exam Dental Oral Exam [facility] Start: 1980 Dental Perio Probing Dental Perio Probing [facility] Start: 1980 Dental Prophylaxis Dental Prophylaxis [facility] Start: 1980 Dental X-Ray: Bitewings Dental X-Ray: Bitewings [facility] Start: 1980 Dental X-Ray: FMX/Fleming Dental X-Ray: FMX/Fleming [facility] Start: 1980 HEPATITIS B (1 of 3 - 3-dose series) HEPATITIS B (1 of 3 - 3-dose series) [facility] Start: 1980 Hepatitis B Vaccine (1 of 3 - 3-dose series) Hepatitis B Vaccine (1 of 3 - 3-dose series) [facility] Start: 1980 Periodontal Maintenance Periodontal Maintenance [facility] Bacteria identified in Urine by Culture URINE CULTURE Microbiology Routine Dysuria 03/20/2023 10:47 AM EDT [facility] Work Phone: End: 03-15-2026 Basic metabolic 2000 panel - Serum or Plasma BASIC METABOLIC PANEL Lab Routine Atrial fibrillation, persistent (HCC) Every 3 months for 4 Occurrences starting 03/15/2025 until 03/15/2026 [facility] Comment on above: Every 3 months for 4 Occurrences startin g 03/15/2025 until 03/15/2026 CARDIAC IMPLANTABLE DEVICE CHECK CARDIAC IMPLANTABLE DEVICE CHECK PACEART Routine Pacemaker reprogramming/check 09/07/2024 9:31 AM EST [facility] End: 09-24-2025 DBT Breast - bilateral screening WERO SCREENING [facility] Radiology Routine Encounter for screening mammogram for breast cancer 1 Occurrences starting 08/25/2024 until 09/24/2025 [facility] Work Phone: Comment on above: 1 Occurrences starting 08/25/2024 until 09/24/2025 DBT Breast - bilater al screening WERO SCREENING [facility] Radiology Routine Encounter for screening mammogram for breast cancer 11/03/2024 7:30 AM EST [facility] Work Phone: End: 01-13-2023 ECG COMPLETE ECG COMPLETE ECG Routine Ventricular tachyarrhythmia (HCC) Paroxysmal atrial fibrillation (HCC) 1 Occurrences starting 01/13/2022 until 01/13/2023 [facility] Work Phone: Comment on above: 1 Occurrences starting 01/13/2022 until 01/13/2023 End: 07-17-2023 ECG COMPLETE ECG COMPLETE ECG Routine HOCM (hypertrophic obstructive cardiomyopathy) (HCC) 1 Occurrences starting 07/17/2022 until 07/17/2023 [facility] Work Phone: Comment on above: 1 Occurrences starting 07/17/2022 until 07/17/2023 End: 10-22-2023 ECG COMPLETE ECG COMPLETE ECG Routine HOCM (hypertrophic obstructive cardiomyopathy) (HCC) 1 Occurrences starting 10/22/2022 until 10/22/2023 [facility] Work Phone: Comment on above: 1 Occurrences starting 10/22/2022 until 10/22/2023 End: 03-15-2025 ECG COMPLETE ECG COMPLETE ECG Routine Atrial fibrillation, unspecified type (HCC) 1 Occurrences starting 03/15/2024 until 03/15/2025 [facility] Work Phone: Comment on above: 1 Occurrences starting 03/15/2024 until 03/15/2025 ECG COMPLETE ECG COMPLETE ECG Routine Atrial fibrillation, unspecified type (HCC) HOCM (hypertrophic obstructive cardiomyopathy) (HCC) 1 Occurrences starting 09/12/2024 [facility] Work Phone: Comment on above: 1 Occurrences starting 09/12/2024 End: 06-11-2026 ECG COMPLETE ECG COMPLETE ECG Routine Atrial fibrillation, persistent (HCC) Every 3 months for 4 Occurrences starting 03/15/2025 until 03/15/2026 [facility] Work Phone: Comment on above: Every 3 months for 4 Occurrences startin g 03/15/2025 until 03/15/2026 End: 07-17-2023 Echocardiography ECHO Cardiology Routine HOCM (hypertrophic obstructive cardiomyopathy) (HCC) 1 Occurrences starting 07/17/2022 until 07/17/2023 [facility] Work Phone: Comment on above: 1 Occurrences starting 07/17/2022 until 07/17/2023 Excision lesion corn ea xcp pterygium KERATECTOMY Irregular astigmatism of both eyes 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 LD OR Insertion intrauteri ne device iud INSERT INTRAUTERINE DEVICE Procedures Routine Encounter for IUD insertion Ordered: 08/25/2024 [facility] Comment on above: Ordered: 08/25/2024 End: 03-15-2026 Magnesium [Mass/volume] in Serum or Plasma MAGNESIUM Lab Routine Atrial fibrillation, persistent (HCC) Every 3 months for 4 Occurrences starting 03/15/2025 until 03/15/2026 [facility] Comment on above: Every 3 months for 4 Occurrences startin g 03/15/2025 until 03/15/2026 PAP TEST PAP TEST Lab Dilip lara Screening for cervical cancer Encounter for screening for human papillomavirus (HPV) 08/25/2024 8:16 AM EST [facility] Patient Education [facility] Work Phone: Patient referral [facility] Work Phone: End: 03-12-2024 Prothrombin time INR FINGERSTICK B/O Lab Routine halfway (current) use of 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 100 Occurrences starting 03/12/2023 until 03/12/2024 [facility] Work Phone: Comment on above: 100 Occurrences starting 03/12/2023 unti l 03/12/2024 End: 03-12-2024 PT panel - Platelet poor plasma by Coagulation assay PROTHROMBIN TIME/PT Lab STAT halfway (current) use of 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 50 Occurrences starting 03/12/2023 until 03/12/2024 [facility] Work Phone: Comment on above: 50 Occurrences starting 03/12/2023 until 03/12/2024 End: 04-08-2024 PT panel - Platelet poor plasma by Coagulation assay PROTHROMBIN TIME/PT Lab Routine Paroxysmal atrial fibrillation (HCC) halfway (current) use of 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 HOCM (hypertrophic obstructive cardiomyopathy) (HCC) ICD (implantable cardioverter-defibrillator ) in place S/P ablation of accessory bypass tract Once per week for 52 Occurrences starting 04/09/2023 until 04/08/2024 [facility] Work Phone: Comment on above: Once per week for 52 Occurrences startin g 04/09/2023 until 04/08/2024 REFER FOR ADMIT INTERVIEW REFER FOR ADMIT INTERVIEW Procedures Routine Class 3 severe obesity due to excess calories with serious comorbidity 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.9 in adult (HCC) Hypertrophic obstructive cardiomyopathy (HOCM) (HCC) Pre-op examination Ordered: 01/08/2023 [facility] Work Phone: Comment on above: Ordered: 01/08/2023 REFER FOR ADMIT INTERVIEW REFER FOR ADMIT INTERVIEW Procedures Routine Cholelithiasis with choledocholithiasis S/P gastric bypass Hypertrophic obstructive cardiomyopathy (HCC) Ordered: 05/07/2023 [facility] Work Phone: Comment on above: Ordered: 05/07/2023 Removal intrauterine device iud REMOVE INTRAUTERINE DEVICE Procedures Routine Encounter for IUD removal Ordered: 08/25/2024 [facility] Comment on above: Ordered: 08/25/2024 Tissue Pathology bio psy report [facility] Work Phone: Comment on above: Release Upon Ordering for 1 Occurrences starting 03/08/2025, 1 completed Troponin I measurement [facility] Work Phone: [facility] Immunizations Immunization Date Immunization Notes Care Provider [facility] 08-26-2024 tetanus toxoid, redu zane diphtheria toxoid, and acellular pertussis vaccine, adsorbed Dr. Enriqueta Duffy DO Work Phone: [facility] 07-14-2024 pneumococcal Conjuga te, unspecified formulation Yissel Suppan 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.REGISTERED DIET TECHNICIAN Work Phone: [facility] 07-14-2024 influenza, seasonal, injectable Yissel Suppan 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.REGISTERED DIET TECHNICIAN Work Phone: [facility] 07-14-2024 pneumococcal conjuga te (PCV20) vaccine, 20 valent (PREVNAR 20) Yissel Suppan 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.REGISTERED DIET TECHNICIAN Work Phone: [facility] 07-14-2024 influenza virus vacc ine, unspecified formulation Oneyda Recinos MD Work Phone: [facility] 08-28-2020 influenza, injectabl e, quadrivalent, preservative free Priyanka Tomas 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.REGISTERED DIET TECHNICIAN Work Phone: [facility] 08-28-2020 pneumococcal polysaccharide vaccine, 23 valent Priyanka Tomas 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.REGISTERED DIET TECHNICIAN Work Phone: [facility] 08-28-2020 influenza virus vacc ine, unspecified formulation Tri Parker MD Work Phone: [facility] 12-03-2016 influenza, injectabl e, quadrivalent, preservative free Priyanka Tomas 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.[employer] Work Phone: [facility] Work Phone: 06-02-2016 tetanus toxoid, redu zane diphtheria toxoid, and acellular pertussis vaccine, adsorbed Priyanka Tomas 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.[employer] Work Phone: [facility] Work Phone: Payers Date Payer Category Payer Unknown [id number] 2024 Self-pay [id number] 2020 [employer] BLUE CARD PPO OOS [id number] 2020 Unknown [employer] BLUE CARD PPO OOS [id number] 2020-Present [phone] [address] [place] [address] PPO [id number] 2019 Unknown DENTAL METLIFE D ENTAL [id number] 2019-Present [phone] [address] [place] [address] Dental [id number] 2013 Unknown [id number] 2013 Unknown [id number] Unknown [id number] Unknown [id number] Unknown [id number] Unknown [id number] Unknown [id number] Social History Date Type Detail Facility Start: 06-11-2022 End: 02-08-2025 Tobacco smoking status NHIS Never smoked tobacco [facility] Start: 10-25-2021 End: 02-23-2025 Alcohol intake Current non-drinker of alcohol (finding) [facility] Start: 08-16-2020 End: 03-21-2023 History SDOH Alcohol Frequency 1 [facility] Start: 08-16-2020 History SDOH Alcohol Std Drinks 99 [facility] Start: 03-07-2020 History SDOH Social Connections Phone 4 [facility] Start: 11-30-2019 End: 03-21-2023 History SDOH Social Connections Get Together 2 [facility] Start: 11-30-2019 End: 03-21-2023 History SDOH Social Connections Congregational 98 [facility] Start: 11-30-2019 End: 03-21-2023 History SDOH Social Connections Living 7 [facility] Start: 03-07-2020 End: 03-21-2023 History SDOH Physical Activity DPW 3 [facility] Start: 11-29-2019 Education 12 [facility] Start: 1980 Sex Assigned At Not on file [facility] Start: 10-20-2020 End: 09-04-2022 Exposure to SARS-CoV-2 (event) Not sure [facility] Start: 02-05-2022 End: 03-21-2023 History SDOH Social Connections Phone 5 [facility] Start: 02-05-2022 History SDOH Physica l Activity MPS 6 [facility] Start: 03-22-2022 End: 01-18-2024 Tobacco smoking status NHIS Unknown if ever smoked [facility] Start: 12-16-2019 None [facility] Start: 12-16-2019 With Family [facility] Start: 1980 Sex Assigned At Female [facility] Start: 06-11-2022 Tobacco use and exposure Smoke less tobacco non-user [facility] Work Phone: Start: 06-01-2022 End: 06-11-2022 Exposure to SARS-CoV-2 (event) Yes [facility] Work Phone: Start: 03-21-2023 History SDOH Alcohol Std Drinks 0 [facility] Start: 02-04-2023 End: 03-21-2023 History of Social function [facility] Start: 02-04-2023 End: 03-21-2023 Social connection and isolation panel [facility] Start: 09-05-2012 How often do you att end holiness or cheondoism services? Patient refused [facility] Do you belong to any clubs or organizations such as holiness groups, unions, fraternal or athletic groups, or school groups? No [facility] Are you now , , , , never or living with a partner? Never [facility] How often to you hav e a drink containing alcohol? Never [facility] Do you feel stress - tense, restless, nervous, or anxious, or unable to sleep at night because your mind is troubled all the time - these days [OSQ] Not at all [facility] (I/We) worried wheth er (my/our) food would run out before (I/we) got money to buy more. Never true [facility] How hard is it for y ou to pay for the very basics like food, housing, medical care, and heating Somewhat hard [facility] Do you feel stress - tense, restless, nervous, or anxious, or unable to sleep at night because your mind is troubled all the time - these days [OSQ] To some extent [facility] (I/We) worried wheth er (my/our) food would run out before (I/we) got money to buy more. Sometimes true [facility] NEGATED: Highlighted row [facility] Medical Equipment Procedure Code Equipment Code Equipment Original Text Equipment Identifier Dates [place] Thk1.65mm P tfe 4x.5in Cardiovascular Sterile - [id number] Start: 11-21-2019 [id number] Emblem Mri [id number] Start: 05-16-2021 [id number] Q-Tr ak Sq Electrode [id number] Start: 02-24-2014 Graft [id number] 12m m Ambiodisk - [id number] Start: 05-03-2024 Goals Date Patient Goal Desired Activity /State Personal health goal Functional Status Date Assessment Result Facility 02-20-2023 Are you deaf, or do you have serious difficulty hearing No 02/20/2023 2:47 PM EDT Shara Chao, LALI No [facility] 02-20-2023 Are you blind, or do you have serious difficulty seeing, even when wearing glasses No 02/20/2023 2:47 PM Shara Brock, LALI No [facility] 02-20-2023 Do you have serious difficulty walking or climbing stairs No 02/20/2023 2:47 PM Shara Brock, LALI No [facility] 02-20-2023 Do you have difficul ty dressing or bathing No 02/20/2023 2:47 PM Shara Brock, LALI No [facility] 02-20-2023 Because of a physica l, mental, or emotional condition, do you have difficulty doing errands alone such as visiting a physician's office or shopping No 02/20/2023 2:47 PM Shara Brock, LALI No [facility] Mental Status Date Assessment Result Facility 01-18-2024 Cognitive function Level Of Cons ciousness Awake;Alert;Appropriate [facility] Work Phone: 03-07-2023 Cognitive function Level Of Cons ciousness Awake;Alert;Appropriate;Fol lows Commands [facility] Work Phone: 02-20-2023 Because of a physica l, mental, or emotional condition, do you have serious difficulty concentrating, remembering, or making decisions No 02/20/2023 2:47 PM EDT Shara Chao, LALI No [facility] 10-26-2022 Cognitive function Level Of Cons ciousness Awake;Alert;Appropriate;Fol lows Commands [facility] Work Phone: 09-12-2022 Cognitive function Level Of Cons ciousness Awake;Alert;Appropriate;Fol lows Commands [facility] Work Phone: 03-22-2022 Cognitive function Level Of Cons ciousness Awake;Alert;Appropriate;Fol lows Commands [facility] Work Phone: Clinical Notes 11-22-2019 to 07-13-2025 Telephone Encounter - Milla Douglas [facility] - 06/09/2025 5:01 PM EDTTelephone Encounter - Milla Douglas [facility] - 06/09/2025 5:01 PM Glen Mccarthy RN - 04/19/2025 3:43 PM EDT Note Date & Type Note Facility 07-13-2025 Note HNO ID: [id number] Author: YISSEL ATKINSON APRN.CNP Service: ? Author Type: Nurse Practitioner Type: Progress Notes Filed: 07/13/2025 10:44 Note Text: Chief Reason For Appointment Patient presents with: Yearly Exam Chavo Tom is a 45 year old female who presents for annual exam. Last office visit date: 01/12/2025 Accompanied By self only Have you had any critical events, hospital stays, ER visits, surgeries or procedures since your last visit here in our office: Yes EGD Specialists/Other Healthcare Providers Seen: Patient Care Team: Yissel Atkinson APRN.REGISTERED DIET TECHNICIAN as PCP - General (Family Medicine) Oneyda Recinos MD as Primary Staff Physician (Cardiology) Jayjay Ortiz MD as Primary Staff Physician (Cardiology) 15, Pharmacist as Pharmacist (Pharmacy) Tony Dimas MD (Ophthalmology) Concerns today: None HPI The patient is a 45-year-old female with dilated cardiomyopathy status post ICD placement and peptic ulcer disease, presenting for annual wellness examination and evaluation of persistent GERD symptoms. Chavo is a 45-year-old female with a history of dilated cardiomyopathy, presenting for an annual wellness visit, with additional complaints of GERD and cold intolerance. Annual Wellness Exam: - Recent weight loss; no longer using CPAP. - No recent hospitalizations or ER visits. - Denies fever, chills, headaches, changes in hearing or vision, neck swelling, dyspnea, cough, chest pain, leg swelling, dysuria, hematuria, joint pain, rashes, thirst, syncope, seizures, or tremors. - Denies feelings of hopelessness, helplessness, or suicidal ideation. - Family history of dilated cardiomyopathy in sister and son. - Grandfather at age 40 from a heart attack. - Mother has cardiac issues, but not HOCM. - New glasses; no longer wearing contacts due to corneal issues. - Declined hepatitis B vaccine. - Due for an annual cardiac checkup; trying to schedule an appointment with cargo checker. GERD: - Recent increase in acid reflux, especially at night. - Wakes up coughing due to reflux. - Nocturnal symptoms began post-surgery. - Uses Tums for relief. - Recent endoscopy showed persistent ulcer. Cold Intolerance: - Feels cold frequently, even in warm weather. - Wonders if Coumadin is contributing to cold intolerance. Pre-Diabetes: - Previously diagnosed with pre-diabetes; believes it has resolved. Dilated Cardiomyopathy: - Diagnosed after syncope episode at work. - Has an ICD. - Believes condition is familial; sister and son have the gene. Hypokalemia: - Last labs showed low potassium levels. - Inquires about potassium supplements. 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 -s/p Myectomy AND MVr: ASA. Echo AND surg path reviewed. 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 -A-fib s/p PVI AND Clip: Afib with RVR overnight (11/22 to 11/23) - treated with Cardizem and Amio. Converted back to SR. Per CTS stop Amio and increase Metoprolol. Afib recurred early afternoon (11/23) - Amio 150mg bolus and 400mg po TID ordered. Continues to have paroxysms of A-fib but they are well tolerated AND ra Marginal Ulcer - 02/29/2024 Obesity, Class I, Bmi 30-34.9 - 05/07/2023 Retirement (Current) Use of Anticoagulants - 03/12/2023 S/P Gastric Bypass - 03/05/2023 History of Atrial Fibrillation - 11/19/2022 [place] (Obstructive Sleep Apnea) - 11/05/2022 Comment: 02/20/2023 New set: Settings 4 - 8 cm H2O, suitable mask per pt preference (nasal or pillow opt), chin strap, head gear, humidity, tubing, lifetime supplies. G47.33 [facility]; [facility]# [phone]------FAX# [phone] Metabolic Syndrome - 10/02/2022 Pre-Diabetes - 10/02/2022 Vitamin D Deficiency, Unspecified - 10/02/2022 Patient Under Care of Multiple Providers - 02/05/2022 Comment: ICD Dr. Oneyda Recinos 1st; Dr. Oneyda Plunkett Documentation Coordinator Dr. Gaston Eller HOC Dr. Jayjay Ortiz [place] Paroxysmal Atrial Fibrillation (Hcc) - 08/27/2020 Comment: History as above. In SR. Plan: Continue sotalol 120 mg twice daily. EKG 2 hours after each sotalol dose. Continue anticoagulation with apixaban 5 mg twice daily. Continue Toprol-XL 50 mg twice daily. Anticipate (more content not included)... [facility] 07-12-2025 Note HNO ID: [id number] Author: TRI PARKER MD Service: ? Author Type: Physician Type: Progress Notes Filed: 07/12/2025 08:58 Note Text: Assessment and Plan 1. 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 Irregular astigmatism of both eyes -rosacea main culprit (on doxycycline) -patient also with long history of contact lens wear (since ~age 18) with varying habits (previously diagnosed with overwear) -recurrent monthly flare-ups with redness and irritation that responds well to steroid drops -decreased vision right eye with progression of superior pannus -s/p superficial keratectomy with amt 05/03/24 right eye - delayed AMT dissolution -looks good! -has been well controlled with cyclosporin and doxycycline Dry Eye Treatment: Artificial tears Effective?: Yes Cyclosporine Effective?: Yes Punctal occlusion Effective?: No Doxycycline Effective?: Yes Plan: -preservative-free artificial tears four times a da -restasis twice a day both eyes vs klarity-C -doxycyline 50mg daily -3-month dissolvable collagen plug size 0.3 placed lower puncta both eyes 11/19/22 -no contact lens wear -follow-up 12 months with topopgraphy / sooner as needed - alternating with Dr. Dimas -Dr. Dimas for routine/dilated fundus exam/glasses I have confirmed and edited as necessary the relevant ophthalmic history, ROS, and the neuro exam findings as obtained by others. I have seen and examined Chavo Tom. I have discussed the case and the management of this patient's care with the Resident/Fellow, if applicable. I also have reviewed and agree with the assessment and plan as stated above and agree with all of its relevant components. Tri Parker MD [facility] 06-09-2025 Telephone encounter Note [facility] Anticoagulation Episode Summary Anticoagulation Care Providers Provider Role Specialty Phone number Oneyda Recinos MD Referring Cardiology [phone] Chavo Tom is a 44 year old year old female patient being evaluated today for a Telemanagement visit. Patient is currently on the following anticoagulant(s) Warfarin. Labs Lab Results Component Value Date INR 1.2 06/08/2025 INR 2.2 05/31/2025 INR 1.1 05/24/2025 Lab Results Component Value Date HB 12.9 01/12/2025 HB 13.3 07/14/2024 HB 12.0 03/03/2024 Lab Results Component Value Date HCT 39.6 01/12/2025 HCT 40.6 07/14/2024 HCT 36.0 03/03/2024 Lab Results Component Value Date PLT 336 01/12/2025 PLT 383 07/14/2024 PLT 227 03/03/2024 Lab Results Component Value Date CREAT 0.61 03/22/2025 CREAT 0.66 01/12/2025 CREAT 0.77 07/14/2024 No components found for: "TBILI3" Lab Results Component Value Date ALT 17 01/12/2025 ALT 19 07/14/2024 ALT 30 02/29/2024 Lab Results Component Value Date AST 26 01/12/2025 AST 26 07/14/2024 AST 62 (H) 02/29/2024 CrCl cannot be calculated (Unknown ideal weight.). 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 (hcc) 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 Anticoagulation Episode Summary Current INR goal: 2.0-3.0 Assessment: INR result of 1.2 is SUBtherapeutic due to: unknown cause - did not speak to patient Again left a pleading message to pt to Call Coumadin Clinic at [phone] and at least leave a voicemail with current warfarin dosing, this is the issue I am running into with the pt is that I am not sure what dosing of warfarin she is taking and have difficulty making dosing decisions based off of that dosing Plan: Current Warfarin Dosing As of 06/09/2025 Full warfarin instructions: 06/09: 10 mg; 06/10: 10 mg; Otherwise 7.5 mg every day Left voice message And sent Snaptript message Advised patient to increase dose for 2 days only then resume weekly regimen as noted above - made dosing decision based off of most recent dosing we had in chart (7.5mg daily) Next home INR check scheduled on 06/15/2025 Advised pt to Call Coumadin Clinic at [phone] to confirm dosing and schedule follow-up Milla Douglas [facility] Clinical Pharmacist, Pharmacy Anticoagulation Clinic Pharmacy Anticoagulation Clinic Pager: [phone]. [facility] 06-09-2025 Miscellaneous Notes [facility] Anticoagulation Episode Summary Anticoagulation Care Providers Provider Role Specialty Phone number Oneyda Recinos MD Referring Cardiology [phone] Chavo Tom is a 44 year old year old female patient being evaluated today for a Telemanagement visit. Patient is currently on the following anticoagulant(s) Warfarin. Labs Lab Results Component Value Date INR 1.2 06/08/2025 INR 2.2 05/31/2025 INR 1.1 05/24/2025 Lab Results Component Value Date HB 12.9 01/12/2025 HB 13.3 07/14/2024 HB 12.0 03/03/2024 Lab Results Component Value Date HCT 39.6 01/12/2025 HCT 40.6 07/14/2024 HCT 36.0 03/03/2024 Lab Results Component Value Date PLT 336 01/12/2025 PLT 383 07/14/2024 PLT 227 03/03/2024 Lab Results Component Value Date CREAT 0.61 03/22/2025 CREAT 0.66 01/12/2025 CREAT 0.77 07/14/2024 No components found for: "TBILI3" Lab Results Component Value Date ALT 17 01/12/2025 ALT 19 07/14/2024 ALT 30 02/29/2024 Lab Results Component Value Date AST 26 01/12/2025 AST 26 07/14/2024 AST 62 (H) 02/29/2024 CrCl cannot be calculated (Unknown ideal weight.). 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 (hcc) halfway (current) use of 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 Anticoagulation Episode Summary Current INR goal: 2.0-3.0 Assessment: INR result of 1.2 is SUBtherapeutic due to: unknown cause - did not speak to patient Again left a pleading message to pt to Call Coumadin Clinic at [phone] and at least leave a voicemail with current warfarin dosing, this is the issue I am running into with the pt is that I am not sure what dosing of warfarin she is taking and have difficulty making dosing decisions based off of that dosing Plan: Current Warfarin Dosing As of 06/09/2025 Full warfarin instructions: 06/09: 10 mg; 9/6: 10 mg; Otherwise 7.5 mg every day Left voice message And sent mychart message Advised patient to increase dose for 2 days only then resume weekly regimen as noted above - made dosing decision based off of most recent dosing we had in chart (7.5mg daily) Next home INR check scheduled on 06/15/2025 Advised pt to Call Coumadin Clinic at [phone] to confirm dosing and schedule follow-up Milla Douglas [facility] Clinical Pharmacist, Pharmacy Anticoagulation Clinic Pharmacy Anticoagulation Clinic Pager: [phone]. Received call from Jane with INR ([employer]) for patient. Patient tested on Date: 06/08 with an out of range INR result of 1.2. PT INR (no units) Date Value 06/08/2025 1.2 05/31/2025 2.2 05/24/2025 1.1 [place] [facility] ([facility]) Received fax from [facility] with INR results for patient. Patient tested on 06/08/2025 and the INR result was 1.2. Fax can be found under scanned documents as miscellaneous lab result. It may take a few minutes to transfer from [employer]. PT INR (no units) Date Value 06/08/2025 1.2 05/31/2025 2.2 05/24/2025 1.1 Bernardo Zamora, Chief Data Officer (spray gun striper) [facility]acy [facility] Clinic documented in this encounter [facility] 06-09-2025 Telephone encounter Note Received call from Jane with [employer] ([employer]) for patient. Patient tested on Date: 06/08 with an out of range INR result of 1.2. PT INR (no units) Date Value 06/08/2025 1.2 05/31/2025 2.2 05/24/2025 1.1 Maine Paz ([facility]) [facility] 06-09-2025 Telephone encounter Note Received fax from [facility] with INR results for patient. Patient tested on 06/08/2025 and the INR result was 1.2. Fax can be found under scanned documents as miscellaneous lab result. It may take a few minutes to transfer from [employer]. PT INR (no units) Date Value 06/08/2025 1.2 05/31/2025 2.2 05/24/2025 1.1 Bernardo Zamora, Chief Data Officer (spray gun striper) Pharmacy Anticoagulation Clinic [facility] 06-06-2025 Telephone encounter Note Spoke with patient, she often works long hours and has trouble answering phone at work. Last week 05/31/25 her INR was 2.2 and she is due to check tomorrow. She prefers [facility] send her MyChart messages when they cannot reach her by phone. Jumana Murguia RN [facility] 06-06-2025 Miscellaneous Notes Spoke with patient, she often works long hours and has trouble answering phone at work. Last week 05/31/25 her INR was 2.2 and she is due to check tomorrow. She prefers [facility] send her MyChart messages when they cannot reach her by phone. Jumana Murguia RN Called patient, message left to call back stressing importance of reason for call to check in on her. [place] [phone] when she calls back. Jumana Murguia RN ----- Message from Oneyda Recinos MD sent at 06/05/2025 10:55 AM EDT ----- I will ask my excellent nurse, Jumana, to call and discuss. Not sure I can offer much beyond that. It would be nice to get her on a NOAC, but I think her history of gastric bypass makes that a non-starter. TC ----- Message ----- From: Milla Douglas logan Sent: 06/02/2025 3:28 PM EDT To: Oneyda Recinos MD Hi Dr. Recinos, This pt is on warfarin and has a home meter through the company that we use at the [facility]. We are currently managing her warfarin dosing per INR results. Her INRs are frequently out of range (TTR for last year= 20%). This patient never answers our phone calls. We even make sure to call her after 3:30pm (which is when she gets out of work). I am just shooting in the dark when it comes to dosing because karen what dose she's taking. INRs go down to 1.1 then up to 2.2 a week later and we have no idea what she is doing with her dosing. Any idea how we can get the seriousness of being in touch with the pharmacist and calling us to discuss dosing? I would appreciate any way you or your department could assist. Thanks! Milla Douglas PharmD documented in this encounter [facility] 06-06-2025 Telephone encounter Note Called patient, message left to call back stressing importance of reason for call to check in on her. [place] [phone] when she calls back. Jumana Murguia RN [facility] 06-06-2025 Telephone encounter Note ----- Message from Oneyda Recinos MD sent at 06/05/2025 10:55 AM EDT ----- I will ask my excellent nurse, Jumana, to call and discuss. Not sure I can offer much beyond that. It would be nice to get her on a NOAC, but I think her history of gastric bypass makes that a non-starter. TC ----- Message ----- From: Milla Douglas [facility] Sent: 06/02/2025 3:28 PM EDT To: Oneyda Recinos MD Hi Dr. Recinos, This pt is on warfarin and has a home meter through the company that we use at the [facility]. We are currently managing her warfarin dosing per INR results. Her INRs are frequently out of range (TTR for last year= 20%). This patient never answers our phone calls. We even make sure to call her after 3:30pm (which is when she gets out of work). I am just shooting in the dark when it comes to dosing because karen what dose she's taking. INRs go down to 1.1 then up to 2.2 a week later and we have no idea what she is doing with her dosing. Any idea how we can get the seriousness of being in touch with the pharmacist and calling us to discuss dosing? I would appreciate any way you or your department could assist. Thanks! Milla Douglas, JohnnyD [facility] 05-19-2025 Telephone encounter Note The following approved medication requests have been transmitted electronically. Requested Prescriptions Pending Prescriptions Disp Refills metoprolol succinate ER (TOPROL XL) 25 mg 24 hr tablet 45 tablet 5 Sig: Take 1.5 tablets by mouth once daily. Yissel Atkinson APRN.CNP [facility] 05-19-2025 Miscellaneous Notes The following approved medication requests have been transmitted electronically. Requested Prescriptions Pending Prescriptions Disp Refills metoprolol succinate ER (TOPROL XL) 25 mg 24 hr tablet 45 tablet 5 Sig: Take 1.5 tablets by mouth once daily. Yissel Atkinson APRN.CNP Prescription Refill Information The patient has been identified by name and date of : Yes Caregiver verified no other encounters exist for this prescription request: Yes Caregiver confirmed with patient/requestor that no other refills are due, in the near future, with this provider at this time: Yes The last office visit in the department: 01/12/25 Does the patient have a future office visit with this provider/department: Yes Requested Prescriptions Pending Prescriptions Disp Refills metoprolol succinate ER (TOPROL XL) 25 mg 24 hr tablet 45 tablet 5 Sig: Take 1.5 tablets by mouth once daily. Layne Vyas LPN May 19, 2025 1:53 PM documented in this encounter [facility] 05-19-2025 Telephone encounter Note Prescription Refill Information The patient has been identified by name and date of : Yes Caregiver verified no other encounters exist for this prescription request: Yes Caregiver confirmed with patient/requestor that no other refills are due, in the near future, with this provider at this time: Yes The last office visit in the department: 01/12/25 Does the patient have a future office visit with this provider/department: Yes Requested Prescriptions Pending Prescriptions Disp Refills metoprolol succinate ER (TOPROL XL) 25 mg 24 hr tablet 45 tablet 5 Sig: Take 1.5 tablets by mouth once daily. Layne Vyas LPN May 19, 2025 1:53 PM [facility] 05-01-2025 Telephone encounter Note [facility] Anticoagulation Episode Summary Anticoagulation Care Providers Provider Role Specialty Phone number Oneyda Recinos MD Referring Cardiology [phone] Chavo Tom is a 44 year old year old female patient being evaluated today for a Telemanagement visit. Patient is currently on the following anticoagulant(s) Warfarin. Labs Lab Results Component Value Date INR 1.2 05/01/2025 INR 1.8 04/06/2025 INR 2.7 03/22/2025 Lab Results Component Value Date HB 12.9 01/12/2025 HB 13.3 07/14/2024 HB 12.0 03/03/2024 Lab Results Component Value Date HCT 39.6 01/12/2025 HCT 40.6 07/14/2024 HCT 36.0 03/03/2024 Lab Results Component Value Date PLT 336 01/12/2025 PLT 383 07/14/2024 PLT 227 03/03/2024 Lab Results Component Value Date CREAT 0.61 03/22/2025 CREAT 0.66 01/12/2025 CREAT 0.77 07/14/2024 No components found for: "TBILI3" Lab Results Component Value Date ALT 17 01/12/2025 ALT 19 07/14/2024 ALT 30 02/29/2024 Lab Results Component Value Date AST 26 01/12/2025 AST 26 07/14/2024 AST 62 (H) 02/29/2024 Estimated Creatinine Clearance: 118.7 mL/min (based on SCr of 0.61 mg/dL). 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 (hcc) halfway (current) use of 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 Anticoagulation Episode Summary Current INR goal: 2.0-3.0 Assessment: INR result of 1.2 is SUBtherapeutic due to: Increased vitamin k intake and Missed dose(s) Pt stated she missed a dose last week. Patient stated she has been eating extra salads lately. Plan: Current Warfarin Dosing As of 05/01/2025 Full warfarin instructions: 05/01: 10 mg; 05/02: 10 mg; Otherwise 7.5 mg every day Called and spoke to patient/caregiver Advised patient to increase dose for 2 days only then resume weekly regimen as noted above Next home INR check scheduled on 05/08/2025 Patient verbalizes understanding of the plan. Patient denies need for refills. Patient advised to call the PAC with any medication changes, bleeding/bruising concerns, recent changes in vitamin k consumption, if any procedures are coming up, if they have been ill or in the hospital, and if they have missed any doses of warfarin. Jumana Moe RPh Clinical Pharmacist, Pharmacy Anticoagulation Clinic Pharm[facility] Pager: [phone]. [facility] 05-01-2025 Miscellaneous Notes [facility] Anticoagulation [facility] Anticoagulation Episode Summary Anticoagulation Care Providers Provider Role Specialty Phone number Oneyda Recinos MD Referring Cardiology [phone] Chavo Tom is a 44 year old year old female patient being evaluated today for a Telemanagement visit. Patient is currently on the following anticoagulant(s) Warfarin. Labs Lab Results Component Value Date INR 1.2 05/01/2025 INR 1.8 04/06/2025 INR 2.7 03/22/2025 Lab Results Component Value Date HB 12.9 01/12/2025 HB 13.3 07/14/2024 HB 12.0 03/03/2024 Lab Results Component Value Date HCT 39.6 01/12/2025 HCT 40.6 07/14/2024 HCT 36.0 03/03/2024 Lab Results Component Value Date PLT 336 01/12/2025 PLT 383 07/14/2024 PLT 227 03/03/2024 Lab Results Component Value Date CREAT 0.61 03/22/2025 CREAT 0.66 01/12/2025 CREAT 0.77 07/14/2024 No components found for: "TBILI3" Lab Results Component Value Date ALT 17 01/12/2025 ALT 19 07/14/2024 ALT 30 02/29/2024 Lab Results Component Value Date AST 26 01/12/2025 AST 26 07/14/2024 AST 62 (H) 02/29/2024 Estimated Creatinine Clearance: 118.7 mL/min (based on SCr of 0.61 mg/dL). 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 (hcc) halfway (current) use of 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 Anticoagulation Episode Summary Current INR goal: 2.0-3.0 Assessment: INR result of 1.2 is SUBtherapeutic due to: Increased vitamin k intake and Missed dose(s) Pt stated she missed a dose last week. Patient stated she has been eating extra salads lately. Plan: Current Warfarin Dosing As of 05/01/2025 Full warfarin instructions: 05/01: 10 mg; 05/02: 10 mg; Otherwise 7.5 mg every day Called and spoke to patient/caregiver Advised patient to increase dose for 2 days only then resume weekly regimen as noted above Next home INR check scheduled on 05/08/2025 Patient verbalizes understanding of the plan. Patient denies need for refills. Patient advised to call the PAC with any medication changes, bleeding/bruising concerns, recent changes in vitamin k consumption, if any procedures are coming up, if they have been ill or in the hospital, and if they have missed any doses of warfarin. Jumana Moe RPh Clinical Pharmacist, Pharmacy Anticoagulation Clinic Pharmacy [facility] Pager: [phone]. Received fax from [facility] with INR results for patient. Patient tested on 05/01/2025 and the INR result was 1.2. Fax can be found under scanned documents as miscellaneous lab result. It may take a few minutes to transfer from [employer]. PT INR (no units) Date Value 05/01/2025 1.2 04/06/2025 1.8 03/22/2025 2.7 Bernardo Zamora, Chief Data Officer (spray gun striper) Pharmacy Anticoagulation Clinic documented in this encounter [facility] 05-01-2025 Telephone encounter Note Received fax from [facility] with INR results for patient. Patient tested on 05/01/2025 and the INR result was 1.2. Fax can be found under scanned documents as miscellaneous lab result. It may take a few minutes to transfer from [employer]. PT INR (no units) Date Value 05/01/2025 1.2 04/06/2025 1.8 03/22/2025 2.7 Bernardo Zamora, Chief Data Officer (spray gun striper) Pharmacy Anticoagulation Clinic [facility] 04-19-2025 Note HNO ID: [id number] Author: GLEN GUIDO RN Service: ? Author Type: Registered Nurse Type: Progress Notes Filed: 04/19/2025 16:04 Note Text: EKG failed to transfer to MUSE. Scanned into scanned documents. Email sent to ordering MD for review. Glen Guido RN [facility] 04-19-2025 History of Present illness Narrative EKG failed to transfer to MUSE. Scanned into scanned documents. Email sent to ordering MD for review. Glen Guido RN documented in this encounter [facility] 04-06-2025 Telephone encounter Note [facility] Anticoagulation Episode Summary Anticoagulation Care Providers Provider Role Specialty Phone number Oneyda Recinos MD Referring Cardiology [phone] Chavo Tom is a 44 year old year old female patient being evaluated today for a Telemanagement visit. Patient is currently on the following anticoagulant(s) Warfarin. Labs Lab Results Component Value Date INR 1.8 04/06/2025 INR 2.7 03/22/2025 INR 1.2 03/02/2025 Lab Results Component Value Date HB 12.9 01/12/2025 HB 13.3 07/14/2024 HB 12.0 03/03/2024 Lab Results Component Value Date HCT 39.6 01/12/2025 HCT 40.6 07/14/2024 HCT 36.0 03/03/2024 Lab Results Component Value Date PLT 336 01/12/2025 PLT 383 07/14/2024 PLT 227 03/03/2024 Lab Results Component Value Date CREAT 0.61 03/22/2025 CREAT 0.66 01/12/2025 CREAT 0.77 07/14/2024 No components found for: "TBILI3" Lab Results Component Value Date ALT 17 01/12/2025 ALT 19 07/14/2024 ALT 30 02/29/2024 Lab Results Component Value Date AST 26 01/12/2025 AST 26 07/14/2024 AST 62 (H) 02/29/2024 Estimated Creatinine Clearance: 118.7 mL/min (based on SCr of 0.61 mg/dL). ALLERGIES Allergen Reactions Metformin Diarrhea Nsaids (Non-Steroid* Contraindication-Medical Surgical S/p gastric bypass, relative contraindication to NSAIDs Indication for Warfarin: Anticoagulation Episode Summary Current INR goal: 2.0-3.0 Assessment: INR result of 1.8 is SUBtherapeutic due to: unknown cause - did not speak to patient Plan: Current Warfarin Dosing As of 04/06/2025 Full warfarin instructions: 7: 10 mg; Otherwise 7.5 mg every day Left voice message And will send [employer] message Advised patient to increase dose for 1 day only then resume weekly regimen Next home INR check scheduled on 04/13/2025 Pt advised to call PAC if there are any questions, concerns, or changes to report. Patient advised to call the PAC with any medication changes, bleeding/bruising concerns, recent changes in vitamin k consumption, if any procedures are coming up, if they have been ill or in the hospital, and if they have missed any doses of warfarin. Bren Hernandez RPh Clinical Pharmacist, Pharmacy Anticoagulation Clinic Pharmacy Anticoagulation Clinic Pager: [phone]. [facility] 04-06-2025 Miscellaneous Notes [facility]tico[facility] Anticoagulation Episode Summary Anticoagulation Care Providers Provider Role Specialty Phone number Oneyda Recinos MD Referring Cardiology [phone] Chavo Tom is a 44 year old year old female patient being evaluated today for a Telemanagement visit. Patient is currently on the following anticoagulant(s) Warfarin. Labs Lab Results Component Value Date INR 1.8 04/06/2025 INR 2.7 03/22/2025 INR 1.2 03/02/2025 Lab Results Component Value Date HB 12.9 01/12/2025 HB 13.3 07/14/2024 HB 12.0 03/03/2024 Lab Results Component Value Date HCT 39.6 01/12/2025 HCT 40.6 07/14/2024 HCT 36.0 03/03/2024 Lab Results Component Value Date PLT 336 01/12/2025 PLT 383 07/14/2024 PLT 227 03/03/2024 Lab Results Component Value Date CREAT 0.61 03/22/2025 CREAT 0.66 01/12/2025 CREAT 0.77 07/14/2024 No components found for: "TBILI3" Lab Results Component Value Date ALT 17 01/12/2025 ALT 19 07/14/2024 ALT 30 02/29/2024 Lab Results Component Value Date AST 26 01/12/2025 AST 26 07/14/2024 AST 62 (H) 02/29/2024 Estimated Creatinine Clearance: 118.7 mL/min (based on SCr of 0.61 mg/dL). ALLERGIES Allergen Reactions Metformin Diarrhea Nsaids (Non-Steroid* Contraindication-Medical Surgical S/p gastric bypass, relative contraindication to NSAIDs Indication for Warfarin: Anticoagulation Episode Summary Current INR goal: 2.0-3.0 Assessment: INR result of 1.8 is SUBtherapeutic due to: unknown cause - did not speak to patient Plan: Current Warfarin Dosing As of 04/06/2025 Full warfarin instructions: 04/06: 10 mg; Otherwise 7.5 mg every day Left voice message And will send [employer] message Advised patient to increase dose for 1 day only then resume weekly regimen Next home INR check scheduled on 04/13/2025 Pt advised to call PAC if there are any questions, concerns, or changes to report. Patient advised to call the PAC with any medication changes, bleeding/bruising concerns, recent changes in vitamin k consumption, if any procedures are coming up, if they have been ill or in the hospital, and if they have missed any doses of warfarin. Bren Hernandez RPh Clinical Pharmacist, Pharmacy Anticoagulation Clinic Pharmacy [facility] Clinic Pager: [phone]. Received fax from [facility] with INR results for patient. Patient tested on 04/06/2025 and the INR result was 1.8. Fax can be found under scanned documents as miscellaneous lab result. It may take a few minutes to transfer from [employer]. PT INR (no units) Date Value 04/06/2025 1.8 03/22/2025 2.7 03/02/2025 1.2 Bernardo Zamora Chief Data Officer (spray gun striper) Pharmacy Anticoagulation Clinic documented in this encounter [facility] 04-06-2025 Telephone encounter Note Received fax from [facility] with INR results for patient. Patient tested on 04/06/2025 and the INR result was 1.8. Fax can be found under scanned documents as miscellaneous lab result. It may take a few minutes to transfer from [employer]. PT INR (no units) Date Value 04/06/2025 1.8 03/22/2025 2.7 03/02/2025 1.2 Bernardo Zamora Chief Data Officer (spray gun striper) Pharmacy Anticoagulation Clinic [facility] 04-03-2025 Telephone encounter Note needs labs/EKG-patient was made aware [facility] 04-03-2025 Miscellaneous Notes needs labs/EKG-patient was made aware PENDING EKG. Patient completed BMP, Mag bld test on 22 March 2025. Results are in her chart. Called patient regarding EKG she plans to reach out to Isabell or Cyn today to get that set up. Electronic request for refill. Requested Prescriptions Pending Prescriptions Disp Refills sotalol (BETAPACE) 120 mg tablet 180 tablet 1 Sig: Take 1 tablet by mouth two times a day. Last office visit in was 09/07/2024 Jenna Flowers documented in this encounter [facility] 03-24-2025 Telephone encounter Note [facility] Anticoagulation [facility] Anticoagulation Episode Summary Anticoagulation Care Providers Provider Role Specialty Phone number Oneyda Recinos MD Referring Cardiology [phone] Chavo Tom is a 44 year old year old female patient being evaluated today for a Telemanagement visit. Patient is currently on the following anticoagulant(s) Warfarin. Labs Lab Results Component Value Date INR 2.7 03/22/2025 INR 1.2 03/02/2025 INR 1.5 02/18/2025 Lab Results Component Value Date HB 12.9 01/12/2025 HB 13.3 07/14/2024 HB 12.0 03/03/2024 Lab Results Component Value Date HCT 39.6 01/12/2025 HCT 40.6 07/14/2024 HCT 36.0 03/03/2024 Lab Results Component Value Date PLT 336 01/12/2025 PLT 383 07/14/2024 PLT 227 03/03/2024 Lab Results Component Value Date CREAT 0.61 03/22/2025 CREAT 0.66 01/12/2025 CREAT 0.77 07/14/2024 No components found for: "TBILI3" Lab Results Component Value Date ALT 17 01/12/2025 ALT 19 07/14/2024 ALT 30 02/29/2024 Lab Results Component Value Date AST 26 01/12/2025 AST 26 07/14/2024 AST 62 (H) 02/29/2024 Estimated Creatinine Clearance: 118.7 mL/min (based on SCr of 0.61 mg/dL). 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 Patient denies need for refills. Patient advised to call the PAC with any medication changes, bleeding/bruising concerns, recent changes in vitamin k consumption, if any procedures are coming up, if they have been ill or in the hospital, and if they have missed any doses of warfarin. Milla Douglas RPh Clinical Pharmacist, Pharmacy Anticoagulation Clinic Pharmacy Anticoagulation Clinic Pager: [phone]. [facility] 03-24-2025 Miscellaneous Notes [facility]ulatory [facility] Anticoagulation Clinic Anticoagulation Episode Summary Anticoagulation Care Providers Provider Role Specialty Phone number Oneyda Recinos MD Referring Cardiology [phone] Chavo Tom is a 44 year old year old female patient being evaluated today for a Telemanagement visit. Patient is currently on the following anticoagulant(s) Warfarin. Labs Lab Results Component Value Date INR 2.7 03/22/2025 INR 1.2 03/02/2025 INR 1.5 02/18/2025 Lab Results Component Value Date HB 12.9 01/12/2025 HB 13.3 07/14/2024 HB 12.0 03/03/2024 Lab Results Component Value Date HCT 39.6 01/12/2025 HCT 40.6 07/14/2024 HCT 36.0 03/03/2024 Lab Results Component Value Date PLT 336 01/12/2025 PLT 383 07/14/2024 PLT 227 03/03/2024 Lab Results Component Value Date CREAT 0.61 03/22/2025 CREAT 0.66 01/12/2025 CREAT 0.77 07/14/2024 No components found for: "TBILI3" Lab Results Component Value Date ALT 17 01/12/2025 ALT 19 07/14/2024 ALT 30 02/29/2024 Lab Results Component Value Date AST 26 01/12/2025 AST 26 07/14/2024 AST 62 (H) 02/29/2024 Estimated Creatinine Clearance: 118.7 mL/min (based on SCr of 0.61 mg/dL). 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 (hcc) halfway (current) use of 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 Anticoagulation Episode Summary Current INR goal: 2.0-3.0 Assessment: INR result of 2.7 is therapeutic Pt resumed warfarin last Thursday and took 10mg x2 days then 7.5mg daily Plan: Current Warfarin Dosing As of 03/23/2025 Full warfarin instructions: 7.5 mg every day Called and spoke to patient/caregiver Advised patient to continue current weekly dose as noted above Next point of care INR check scheduled on 03/29/2025 Patient verbalizes understanding of the plan. Patient denies need for refills. Patient advised to call the PAC with any medication changes, bleeding/bruising concerns, recent changes in vitamin k consumption, if any procedures are coming up, if they have been ill or in the hospital, and if they have missed any doses of warfarin. Milla Douglas RPh Clinical Pharmacist, Pharmacy Anticoagulation Clinic Pharmacy Anticoagulation Clinic Pager: [phone]. [facility]acy Antico[facility] Clinic received a fax from [facility] for the patient's INR result on 03/22. Fax will be sent to the patient's scanned documents. PT INR (no units) Date Value 03/22/2025 2.7 03/02/2025 1.2 02/18/2025 1.5 Bozena Calloway RN Pharmacy Anticoagulation Clinic documented in this encounter [facility] 03-23-2025 Telephone encounter Note PENDING EKG. Patient completed BMP, Mag bld test on 22 March 2025. Results are in her chart. Called patient regarding EKG she plans to reach out to Isabell or Cyn today to get that set up. Electronic request for refill. Requested Prescriptions Pending Prescriptions Disp Refills sotalol (BETAPACE) 120 mg tablet 180 tablet 1 Sig: Take 1 tablet by mouth two times a day. Last office visit in was 09/07/2024 Jenna Flowers [facility] 03-23-2025 Telephone encounter Note Pharmacy Anticoagulation Clinic received a fax from Tony for the patient's INR result on 03/22. Fax will be sent to the patient's scanned documents. PT INR (no units) Date Value 03/22/2025 2.7 03/02/2025 1.2 02/18/2025 1.5 Bozena Calloway RN Pharmacy Antico[facility] 03-08-2025 Attending History and physical note UPDATED HISTORY AND PHYSICAL EXAMINATION SERVICE DATE: 03/08/2025 SERVICE TIME: 11:26 Participation of a fellow, resident, medical student, or advanced practice provider student in performing the sensitive examination was discussed with the patient or authorized area representative. The patient or authorized area representative has agreed to proceed with the sensitive examination. PHYSICAL EXAM MUST BE COMPLETED ON ADMISSION The History and Physical (completed in the past 30 days) has been reviewed and the patient has been examined. The contents accurately reflect the patient's condition with the following additions or revisions since the H&P was completed. Examination indicates no changes. This H&P can be found in the Electronic Medical Record . SIGNATURE: Maryana Bailey MD PATIENT NAME: Chavo Tom DATE: March 08, 2025 TIME: 11:26 AM Source Note - Latoya Ferrari APRN.CNP - 02/23/2025 9:30 AM EDT Images from the original note were not included. [facility] Peri[facility] Pre-Anesthesia Consultation Clinic HISTORY AND PHYSICAL EXAMINATION SERVICE DATE: 02/23/2025 SERVICE TIME: 9:59 AM PRIMARY CARE PHYSICIAN: Yissel Atkinson APRN.REGISTERED DIET TECHNICIAN Assessment Patient has the following medical conditions which may affect vickie-operative course: ICD (implantable cardioverter-defibrillator) in place Assessment: s/p 2013 ICD placement and replaced 2022 EF 70%, Pt has 59% battery life remaining. Surgery is above umbilicus, NO pacemaker function programming necessary per CIED algorithm 02/07/2025 ICD device check View Cardiac Data and Report - Defibrillator [ID [id number]] Paroxysmal atrial fibrillation (HCC) Assessment: s/p ablation 2013, last known episode 06/2022 Taking metoprolol and sotalol and coumadin, received pre-op instructions to hold 5 days, pt verbalized understanding. Denies any recent palpitations Office Visit on 09/07/2024 Bhawq-Pjoxvfbbl-Gusfq (WPW) syndrome Assessment: s/p ablation 2013 Stable with metoprolol and sotalol HOCM (hypertrophic obstructive cardiomyopathy) (HCC) Assessment: S/P septal myectomy, MVr, papillary muscle reorientation, PVI, and LAAC (11/22/[address] Pastrana) Acute on chronic diastolic (congestive) heart failure (HCC) Assessment: stable EF = 70 5% (2D biplane) Normal left ventricular diastolic function QUINTON (obstructive sleep apnea) Assessment: resolved with gastric bypass S/P gastric bypass Assessment: 02/2023 Pre-diabetes Assessment: resolved with gastric bypass Hemoglobin A1C (%) Date Value 02/29/2024 5.2 01/07/2021 6.0 ANESTHESIA FINDINGS: Intubation History: No history of difficult intubation Significant Anesthesia Considerations: none Airway History: No history of difficult airway [place] Activity Status Index: METS: Climb a flight of stairs or walk up a hill (5.50 METs) DASI Score: 5.5 Patient denies any chest pain or undue shortness of breath with the above physical activity. Clinical Frailty Scale: 1. Very fit STOP-Bang Score: Denies snoring loudly Denies feeling tired, fatigued, or sleepy during the daytime Has not been observed to stop breathing or choking/gasping during sleep Denies having high blood pressure BMI less than or equal to 35 kg/m^2 Patient 50 years old or younger Does not have a large neck STOP-Bang Score: 0 [id number] Score: CHF history: Yes Stroke/TIA/thromboembolism history: No Diabetes history: No [id number] Score: I - PHYSICAL EVALUATION AIRWAY Patient intubated: No. Tracheostomy tube not present Mallampati: II. TM distance: >3 FB. Neck ROM: full ROM without neurological symptoms. Mouth opening: adequate. Short neck: no. Thick neck: no Morales present: no Lip Bite Test: I Microretrognathia/Micronagthia/Rec essed Chin: No DENTAL Dental findings: teeth intact. II - ANESTHESIA PLAN Anesthetic Plan: other Beta Micaela Monitoring Plan Post Procedure Analgesic Plan Prepared for Surgery: optimally prepared for surgery, pending [see comment]. CONSULTS: Patient does not require consults for optimization at this time Planned Anesthetic: other anesthesia choice The Following Tests/Procedures Have Been Initiated: No orders of the defined types were placed in this encounter. REASON FOR VISIT: Chavo Tom is a 44 year old female who is scheduled for * No surgery found * at the request of Dr. Maryana Bailey for consultation. My final recommendation will be communicated back to the requesting physician by way of shared medical record or letter. Subjective The patient has the following: COVID-19 Immunization Status Upcoming Covid-19 Vaccine () Postponed until 07/14/2025 07/14/2024 Postponed until 07/14/2025 by Layne Vyas LPN (Declined at this time) 02/06/2022 Postponed until 02/06/2023 by Janelle Oconnell MA (Declined at this time) CHIEF COMPLAINT: Pre-op exam HPI: Chavo Tom is a 44 year old seen for PAC due to scheduled above surgery because h/o marginal ulcer that complicated gastric bypass surgery. REVIEW OF SYSTEMS: General: No weight loss, malaise or fevers. Neurological: No history of TIA's, stroke, [employer] tumor, impaired sensorium, hemiplegia, paraplegia or quadraplegia. No neurological symptoms or problems. Respiratory: No history of current cough or dyspnea, or pneumonia in the past 6 weeks. No history of respiratory/pulmonary symptoms or problems. Cardiovascular: Positive for: AICD/PPM, anticoagulation therapy (Coumadin), arrhythmia (WPW s/p ablation, following cardiology), atrial fibrillation, CHF, murmur/valvular heart disease, open heart surgery and valve surgery Negative for: abdominal aortic aneurysm, angina, CAD, chest pain, congenital heart defect, DVT/PE, hyperlipidemia, hypertension, recent OR, PTCA and PVD. GI: See HPI. S/p gastric bypass, c/b marginal ulcer : No history of dysuria, frequency or incontinence, stones or chronic kidney disease. No difficulty urinating, nocturia > 1 time per night or hematuria. FIRE LIEUTENANT: Negative for abnormal vaginal bleeding, abnormal vaginal discharge. Endocrine: No history of diabetes. Has not taken steroids within the past 30 days. No history of endocrinological symptoms or problems. Hematology: Positive for: bruises/bleeds easily and chronic anti-coagulation/platelet meds. Patient is on anti-coagulation/platelet medication(s): Coumadin. Negative for: anemia and transfusion of at least 4 units within 72 hours prior to surgery. Oncology: No history of CA metastasis, chemo within 30 days, or radiotherapy within 90 days. No history of oncological symptoms or problems. Psych: No history of psychiatric symptoms or problems. Musculoskeletal: Negative for joint pain or swelling, back pain or muscle pain. Skin: Negative for lesions, rash and itching. Implanted Devices: Has implanted device Implants: icd. PAST MEDICAL HISTORY Diagnosis Date Atrial fibrillation (HCC) CHADS score 0 Cardiomyopathy (HCC) 02/24/14 Family history of hypertrophic cardiomyopathy 01/18/2014 Impaired glucose tolerance 01/21/2011 Left bundle branch block Obesity S/P gastric bypass 02/18/2023 Sleep apnea Thyroid nodule, cold 04/12/2018 10/15/2020 US 4mm right nodule: no f/u recommended 12/10/16 US right nodule smaller: Heterogeneous solid nodule mid pole 6 x 4 x 5 mm01/27/14 US:hypoechoic 9 x 5 x 6mm nodule anteriorly at the mid right lobe 03/14/[address] Gama Rubin: felt nodule smaller, did not recommend KE 02/09/14 NM uptake scan: hypo-functoning thyroid nodule right mid-lobe Ventricular tachyarrhythmia (HCC) 02/2014 Qocup-Jplcnahks-Wxife (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 Cardioverted with 150j under sedation DEFIBRILLATOR SURGERY 02/24/2014 ICD, redo WPW & atrial fib ablation EPS: DEFIB. SURGERY 05/16/2021 Exchange of a SamEnrico SQ-RX 1010 pulse generator with a [facility] E[facility] SURG ANT SGMT PROC UNLISTED Right 05/03/2024 Dr. Parker INSERTION OF IUD 01/11/2025 Mirena IUD REMOVAL 01/11/2025 LAP GASTRIC BYPASS/JENNY-EN-Y 02/18/2023 150cmantecolic jenny, 70cm bp limb LAPAROSCOPIC CHOLECYSTECTOMY 05/20/2023 PAST SURGICAL HISTORY OF 07/06/2014 WPW ablation PAST SURGICAL HISTORY OF 11/21/2019 MVr, myectomy, PVI, LAAC TYMPANOSTOMY LOCAL/TOPICAL ANESTHESIA Right FAMILY HISTORY Problem Relation Age of Onset Lipids Father Diabetes Mother Hypertension Mother Thyroid Mother Coronary Artery Disease Mother CABG 2012 Diabetes Brother Heart Sister HOCM s/p ICD None Maternal Grandfather age 46-"suddenly" Heart Maternal Grandmother OR age 72 Alcohol/Drug Paternal Grandfather ETOH Diabetes Maternal Aunt Diabetes Maternal Uncle Colon Cancer No Family History Anesthesia Problems No Family History Social History Tobacco Use Smoking status: Never Smokeless tobacco: Never Vaping Use Vaping status: Never Used Substance Use Topics Alcohol use: No Drug use: No Prior to Admission medications as of 02/23/25 0950 Medication Sig Last Dose Taking doxycycline (VIBRA-TABS) 100 mg tablet TAKE 1/2 (ONE-HALF) OF A TABLET BY MOUTH TWICE DAILY Yes warfarin (COUMADIN) 5 mg tablet Take 1.5 tablets by mouth once daily. Equally 7.5 mg Daily Yes levonorgestrel (MIRENA) 21 mcg/24hr (up to 8 yrs) 52 mg IUD 1 each by INTRAUTERINE route as directed. Yes cycloSPORINE (RESTASIS) 0.05 % ophthalmic emulsion Use 1 drop in both eyes two times a day. Yes cycloSPORINE-chondroitin sulfate A (KLARITY-C) 0.1-0.25 % ophthalmic drops Use 1 drop in both eyes two times a day. Yes cyanocobalamin (VITAMIN B-12) 1,000 mcg tab Take 1 tablet by mouth once daily. Yes multivitamin tablet Take 1 tablet by mouth once daily. Yes calcium carbonate (TUMS) 500 mg chew Take 1 tablet by mouth three times a day. Yes metoprolol succinate ER (TOPROL XL) 25 mg 24 hr tablet Take 1.5 tablets by mouth once daily. Yes sotalol (BETAPACE) 120 mg tablet Take 1 tablet by mouth two times a day. Yes cholecalciferol, vitamin D3, (VITAMIN D3 ORAL) Take by mouth. Yes tacrolimus (PROTOPIC) 0.03 % ointment Apply to affected area twice daily. Yes Medication Comments documented by Zohreh Dc OA on 05/09/2024 at 1251. 05/09/24 The medications are managed by this patient by: PATIENT REINA Alvarado ALLERGIES Allergen Reactions Metformin Diarrhea Nsaids (Non-Steroid* Contraindication-Medical Surgical S/p gastric bypass, relative contraindication to NSAIDs Objective PHYSICAL EXAM: General: alert and oriented (x3) and healthy appearance. Pertinent negatives noted - not distressed. Skin: normal color, no rash or lesions. HEENT: EOM intact and pupils equal round. Pertinent negatives noted - no carotid bruit. Cardiovascular: regular rate and rhythm, normal S1 and S2, no rub, murmurs, or gallop. Respiratory: normal breath sounds, no wheezes or crackles. No chest wall deformity or tenderness. Abdomen: soft. Pertinent negatives noted - not tender. Extremities: no deformity, no edema or tenderness, no joint swelling or clubbing. Neurological: normal cognition and motor skills. Gait normal. No weakness or sensory deficit. PAIN ASSESSMENT: VITALS: BP 96/56 Pulse 62 Temp (Src) 98 (Temporal) Resp 12 Ht 5' 8" (1.73m) Wt 160 lb 12.8 oz (72.9kg) SpO2 98% LMP 01/06/2012 BMI 24.46 kg/(m^2). Diagnostic tests reviewed for today's visit: Lab Value Units Date High Low HB 12.9 g/dL 01/12/2025 15.5 11.5 HCT 39.6 % 01/12/2025 46.0 36.0 WBC 7.27 k/uL 01/12/2025 11.00 3.70 PLT 336 k/uL 01/12/2025 400 150 NA 139 mmol/L 01/12/2025 144 136 K 4.2 mmol/L 01/12/2025 5.1 3.7 GLUC 88 mg/dL 01/12/2025 99 74 BUN 12 mg/dL 01/12/2025 21 7 CREAT 0.66 mg/dL 01/12/2025 0.96 0.58 PTSEC No results within date range. INR 1.5 no uni* 02/18/2025 APTT No results within date range. ALT 17 U/L 01/12/2025 38 7 AST 26 U/L 01/12/2025 35 13 TBILI 0.6 mg/dL 01/12/2025 1.3 0.2 TSH No results within date range. Lab Value Units Date High Low HCGQT No results within date range. UHCG No results within date range. HCG, BODY* No results within date range. Lab Value Units Date High Low ABORHD No results within date range. ABSCREEN No results within date range. Hemoglobin A1C (%) Date Value 02/29/2024 5.2 09/24/2023 5.4 09/10/2022 5.4 01/07/2021 6.0 04/27/2020 5.7 11/25/2019 5.6 HBA1C, [place] (%) Date Value 11/05/2011 5.4 Recent Results (from the past 8760 hours) ECG COMPLETE Collection Time: 09/07/24 8:54 AM Result Value Ventricular Rate 42 Atrial Rate 42 P-R Interval 140 QRS Duration 128 QT Interval 518 QTC Calculation (Bazett) 432 Calculated P [place] 45 Calculated R [place] 32 Calculated T [place] 88 Impression MARKED SINUS BRADYCARDIA COMPLETE LEFT BUNDLE BRANCH BLOCK ABNORMAL ECG Confirmed by MD AUTUMN, HEBA ([id number]) on 10/04/2024 7:16:37 PM Recent Results (from the past 91610 hours) ECHO Collection Time: 10/22/22 9:32 AM Impression CONCLUSIONS: - Technically difficult exam due to body habitus. - Exam indication: HOCM - The left ventricle is normal in size. There is left ventricular hypertrophy. Left ventricular systolic function is normal. EF = 70 5% (2D biplane) Normal left ventricular diastolic function. - The right ventricle is normal in size. Right ventricular systolic function is normal. At rest, there is no mitral leaflet ALDO, mild chordeal ALDO, 1+MR, Peak LVOT gradient 5 mmHg. There was no significant change with Valsalva (peak LVOT gradient 10 mmHg). No Amyl given. - Incidental well circumscribed liver lesion, more prominent on current study compared to prior. (clips [id number], [id number]) - Exam was compared with the prior CC echocardiographic exam performed on 03/19/2021. Incidental finding as above; otherwise, no significant change. * * * Final * * * Instructions Given to Patient: Instructions located in the after visit summary. Patient given verbal and written preop instructions and voices comprehension and compliance. SIGNATURE: Latoya Ferrari APRN.CNP PATIENT NAME: Chavo Tom DATE: February 23, 2025 TIME: 9:30 AM PAGER/CONTACT #: [facility] Work Phone: 03-08-2025 History and physical note UPDATED HISTORY AND PHYSICAL EXAMINATION SERVICE DATE: 03/08/2025 SERVICE TIME: 11:26 Participation of a fellow, resident, medical student, or advanced practice provider student in performing the sensitive examination was discussed with the patient or authorized area representative. The patient or authorized area representative has agreed to proceed with the sensitive examination. PHYSICAL EXAM MUST BE COMPLETED ON ADMISSION The History and Physical (completed in the past 30 days) has been reviewed and the patient has been examined. The contents accurately reflect the patient's condition with the following additions or revisions since the H&P was completed. Examination indicates no changes. This H&P can be found in the Electronic Medical Record . SIGNATURE: Maryana Bailey MD PATIENT NAME: Chavo Tom DATE: March 08, 2025 TIME: 11:26 AM Source Note - Latoya Ferrari APRN.CNP - 02/23/2025 9:30 AM EDT Images from the original note were not included. [facility] Perioperative Medicine Pre-Anesthesia Consultation Clinic HISTORY AND PHYSICAL EXAMINATION SERVICE DATE: 02/23/2025 SERVICE TIME: 9:59 AM PRIMARY CARE PHYSICIAN: Yissel Atkinson APRN.REGISTERED DIET TECHNICIAN Assessment Patient has the following medical conditions which may affect vickie-operative course: ICD (implantable cardioverter-defibrillator) in place Assessment: s/p 2013 ICD placement and replaced 2022 EF 70%, Pt has 59% battery life remaining. Surgery is above umbilicus, NO pacemaker function programming necessary per CIED algorithm 02/07/2025 ICD device check View Cardiac Data and Report - Defibrillator [ID [id number]] Paroxysmal atrial fibrillation (HCC) Assessment: s/p ablation 2013, last known episode 06/2022 Taking metoprolol and sotalol and coumadin, received pre-op instructions to hold 5 days, pt verbalized understanding. Denies any recent palpitations Office Visit on 09/07/2024 Nxtph-Ktmigznjh-Dtmxz (WPW) syndrome Assessment: s/p ablation 2013 Stable with metoprolol and sotalol HOCM (hypertrophic obstructive cardiomyopathy) (HCC) Assessment: S/P septal myectomy, MVr, papillary muscle reorientation, PVI, and LAAC (11/22/[address] Pastrana) Acute on chronic diastolic (congestive) heart failure (HCC) Assessment: stable EF = 70 5% (2D biplane) Normal left ventricular diastolic function QUINTON (obstructive sleep apnea) Assessment: resolved with gastric bypass S/P gastric bypass Assessment: 02/2023 Pre-diabetes Assessment: resolved with gastric bypass Hemoglobin A1C (%) Date Value 02/29/2024 5.2 01/07/2021 6.0 ANESTHESIA FINDINGS: Intubation History: No history of difficult intubation Significant Anesthesia Considerations: none Airway History: No history of difficult airway [place] Activity Status Index: METS: Climb a flight of stairs or walk up a hill (5.50 METs) DASI Score: 5.5 Patient denies any chest pain or undue shortness of breath with the above physical activity. Clinical Frailty Scale: 1. Very fit STOP-Bang Score: Denies snoring loudly Denies feeling tired, fatigued, or sleepy during the daytime Has not been observed to stop breathing or choking/gasping during sleep Denies having high blood pressure BMI less than or equal to 35 kg/m^2 Patient 50 years old or younger Does not have a large neck STOP-Bang Score: 0 [id number] Score: CHF history: Yes Stroke/TIA/thromboembolism history: No Diabetes history: No [id number] Score: I - PHYSICAL EVALUATION AIRWAY Patient intubated: No. Tracheostomy tube not present Mallampati: II. TM distance: >3 FB. Neck ROM: full ROM without neurological symptoms. Mouth opening: adequate. Short neck: no. Thick neck: no Morales present: no Lip Bite Test: I Microretrognathia/Micronagthia/Rec essed Chin: No DENTAL Dental findings: teeth intact. II - ANESTHESIA PLAN Anesthetic Plan: other Beta Micaela Monitoring Plan Post Procedure Analgesic Plan Prepared for Surgery: optimally prepared for surgery, pending [see comment]. CONSULTS: Patient does not require consults for optimization at this time Planned Anesthetic: other anesthesia choice The Following Tests/Procedures Have Been Initiated: No orders of the defined types were placed in this encounter. REASON FOR VISIT: Chavo Tom is a 44 year old female who is scheduled for * No surgery found * at the request of Dr. Maryana Bailey for consultation. My final recommendation will be communicated back to the requesting physician by way of shared medical record or letter. Subjective The patient has the following: COVID-19 Immunization Status Upcoming Covid-19 Vaccine () Postponed until 07/14/2025 07/14/2024 Postponed until 07/14/2025 by Layne Vyas LPN (Declined at this time) 02/06/2022 Postponed until 02/06/2023 by Janelle Oconnell MA (Declined at this time) CHIEF COMPLAINT: Pre-op exam HPI: Chavo Tom is a 44 year old seen for PAC due to scheduled above surgery because h/o marginal ulcer that complicated gastric bypass surgery. REVIEW OF SYSTEMS: General: No weight loss, malaise or fevers. Neurological: No history of TIA's, stroke, [employer] tumor, impaired sensorium, hemiplegia, paraplegia or quadraplegia. No neurological symptoms or problems. Respiratory: No history of current cough or dyspnea, or pneumonia in the past 6 weeks. No history of respiratory/pulmonary symptoms or problems. Cardiovascular: Positive for: AICD/PPM, anticoagulation therapy (Coumadin), arrhythmia (WPW s/p ablation, following cardiology), atrial fibrillation, CHF, murmur/valvular heart disease, open heart surgery and valve surgery Negative for: abdominal aortic aneurysm, angina, CAD, chest pain, congenital heart defect, DVT/PE, hyperlipidemia, hypertension, recent OR, PTCA and PVD. GI: See HPI. S/p gastric bypass, c/b marginal ulcer : No history of dysuria, frequency or incontinence, stones or chronic kidney disease. No difficulty urinating, nocturia > 1 time per night or hematuria. FIRE LIEUTENANT: Negative for abnormal vaginal bleeding, abnormal vaginal discharge. Endocrine: No history of diabetes. Has not taken steroids within the past 30 days. No history of endocrinological symptoms or problems. Hematology: Positive for: bruises/bleeds easily and chronic anti-coagulation/platelet meds. Patient is on anti-coagulation/platelet medication(s): Coumadin. Negative for: anemia and transfusion of at least 4 units within 72 hours prior to surgery. Oncology: No history of CA metastasis, chemo within 30 days, or radiotherapy within 90 days. No history of oncological symptoms or problems. Psych: No history of psychiatric symptoms or problems. Musculoskeletal: Negative for joint pain or swelling, back pain or muscle pain. Skin: Negative for lesions, rash and itching. Implanted Devices: Has implanted device Implants: icd. PAST MEDICAL HISTORY Diagnosis Date Atrial fibrillation (HCC) CHADS score 0 Cardiomyopathy (HCC) 02/24/14 Family history of hypertrophic cardiomyopathy 01/18/2014 Impaired glucose tolerance 01/21/2011 Left bundle branch block Obesity S/P gastric bypass 02/18/2023 Sleep apnea Thyroid nodule, cold 04/12/2018 10/15/2020 US 4mm right nodule: no f/u recommended 12/10/16 US right nodule smaller: Heterogeneous solid nodule mid pole 6 x 4 x 5 mm01/27/14 US:hypoechoic 9 x 5 x 6mm nodule anteriorly at the mid right lobe 03/14/[address] Gama Rubin: felt nodule smaller, did not recommend KE 02/09/14 NM uptake scan: hypo-functoning thyroid nodule right mid-lobe Ventricular tachyarrhythmia (HCC) 02/2014 Xuhro-Tvktaczhn-Jmvmd (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 Cardioverted with 150j under sedation DEFIBRILLATOR SURGERY 02/24/2014 ICD, redo WPW & atrial fib ablation EPS: DEFIB. SURGERY 05/16/2021 Exchange of a SamEnrico SQ-RX 1010 pulse generator with a [facility] E[facility] SURG ANT SGMT PROC UNLISTED Right 05/03/2024 Dr. Parker INSERTION OF IUD 01/11/2025 Mirena IUD REMOVAL 01/11/2025 LAP GASTRIC BYPASS/JENNY-EN-Y 02/18/2023 150cmantecolic jenny, 70cm bp limb LAPAROSCOPIC CHOLECYSTECTOMY 05/20/2023 PAST SURGICAL HISTORY OF 07/06/2014 WPW ablation PAST SURGICAL HISTORY OF 11/21/2019 MVr, myectomy, PVI, LAAC TYMPANOSTOMY LOCAL/TOPICAL ANESTHESIA Right FAMILY HISTORY Problem Relation Age of Onset Lipids Father Diabetes Mother Hypertension Mother Thyroid Mother Coronary Artery Disease Mother CABG 2012 Diabetes Brother Heart Sister HOCM s/p ICD None Maternal Grandfather age 46-"suddenly" Heart Maternal Grandmother OR age 72 Alcohol/Drug Paternal Grandfather ETOH Diabetes Maternal Aunt Diabetes Maternal Uncle Colon Cancer No Family History Anesthesia Problems No Family History Social History Tobacco Use Smoking status: Never Smokeless tobacco: Never Vaping Use Vaping status: Never Used Substance Use Topics Alcohol use: No Drug use: No Prior to Admission medications as of 02/23/25 0950 Medication Sig Last Dose Taking doxycycline (VIBRA-TABS) 100 mg tablet TAKE 1/2 (ONE-HALF) OF A TABLET BY MOUTH TWICE DAILY Yes warfarin (COUMADIN) 5 mg tablet Take 1.5 tablets by mouth once daily. Equally 7.5 mg Daily Yes levonorgestrel (MIRENA) 21 mcg/24hr (up to 8 yrs) 52 mg IUD 1 each by INTRAUTERINE route as directed. Yes cycloSPORINE (RESTASIS) 0.05 % ophthalmic emulsion Use 1 drop in both eyes two times a day. Yes cycloSPORINE-chondroitin sulfate A (KLARITY-C) 0.1-0.25 % ophthalmic drops Use 1 drop in both eyes two times a day. Yes cyanocobalamin (VITAMIN B-12) 1,000 mcg tab Take 1 tablet by mouth once daily. Yes multivitamin tablet Take 1 tablet by mouth once daily. Yes calcium carbonate (TUMS) 500 mg chew Take 1 tablet by mouth three times a day. Yes metoprolol succinate ER (TOPROL XL) 25 mg 24 hr tablet Take 1.5 tablets by mouth once daily. Yes sotalol (BETAPACE) 120 mg tablet Take 1 tablet by mouth two times a day. Yes cholecalciferol, vitamin D3, (VITAMIN D3 ORAL) Take by mouth. Yes tacrolimus (PROTOPIC) 0.03 % ointment Apply to affected area twice daily. Yes Medication Comments documented by Zohreh Dc OA on 05/09/2024 at 1251. 05/09/24 The medications are managed by this patient by: PATIENT REINA Alvarado ALLERGIES Allergen Reactions Metformin Diarrhea Nsaids (Non-Steroid* Contraindication-Medical Surgical S/p gastric bypass, relative contraindication to NSAIDs Objective PHYSICAL EXAM: General: alert and oriented (x3) and healthy appearance. Pertinent negatives noted - not distressed. Skin: normal color, no rash or lesions. HEENT: EOM intact and pupils equal round. Pertinent negatives noted - no carotid bruit. Cardiovascular: regular rate and rhythm, normal S1 and S2, no rub, murmurs, or gallop. Respiratory: normal breath sounds, no wheezes or crackles. No chest wall deformity or tenderness. Abdomen: soft. Pertinent negatives noted - not tender. Extremities: no deformity, no edema or tenderness, no joint swelling or clubbing. Neurological: normal cognition and motor skills. Gait normal. No weakness or sensory deficit. PAIN ASSESSMENT: VITALS: BP 96/56 Pulse 62 Temp (Src) 98 (Temporal) Resp 12 Ht 5' 8" (1.73m) Wt 160 lb 12.8 oz (72.9kg) SpO2 98% LMP 01/06/2012 BMI 24.46 kg/(m^2). Diagnostic tests reviewed for today's visit: Lab Value Units Date High Low HB 12.9 g/dL 01/12/2025 15.5 11.5 HCT 39.6 % 01/12/2025 46.0 36.0 WBC 7.27 k/uL 01/12/2025 11.00 3.70 PLT 336 k/uL 01/12/2025 400 150 NA 139 mmol/L 01/12/2025 144 136 K 4.2 mmol/L 01/12/2025 5.1 3.7 GLUC 88 mg/dL 01/12/2025 99 74 BUN 12 mg/dL 01/12/2025 21 7 CREAT 0.66 mg/dL 01/12/2025 0.96 0.58 PTSEC No results within date range. INR 1.5 no uni* 02/18/2025 APTT No results within date range. ALT 17 U/L 01/12/2025 38 7 AST 26 U/L 01/12/2025 35 13 TBILI 0.6 mg/dL 01/12/2025 1.3 0.2 TSH No results within date range. Lab Value Units Date High Low HCGQT No results within date range. UHCG No results within date range. HCG, BODY* No results within date range. Lab Value Units Date High Low ABORHD No results within date range. ABSCREEN No results within date range. Hemoglobin A1C (%) Date Value 02/29/2024 5.2 09/24/2023 5.4 09/10/2022 5.4 01/07/2021 6.0 04/27/2020 5.7 11/25/2019 5.6 HBA1C, Cyn (%) Date Value 11/05/2011 5.4 Recent Results (from the past 8760 hours) ECG COMPLETE Collection Time: 09/07/24 8:54 AM Result Value Ventricular Rate 42 Atrial Rate 42 P-R Interval 140 QRS Duration 128 QT Interval 518 QTC Calculation (Bazett) 432 Calculated P [place] 45 Calculated R [place] 32 Calculated T [place] 88 Impression MARKED SINUS BRADYCARDIA COMPLETE LEFT BUNDLE BRANCH BLOCK ABNORMAL ECG Confirmed by MD AUTUMN, HEBA ([id number]) on 10/04/2024 7:16:37 PM Recent Results (from the past 28314 hours) ECHO Collection Time: 10/22/22 9:32 AM Impression CONCLUSIONS: - Technically difficult exam due to body habitus. - Exam indication: HOCM - The left ventricle is normal in size. There is left ventricular hypertrophy. Left ventricular systolic function is normal. EF = 70 5% (2D biplane) Normal left ventricular diastolic function. - The right ventricle is normal in size. Right ventricular systolic function is normal. At rest, there is no mitral leaflet ALDO, mild chordeal ALDO, 1+MR, Peak LVOT gradient 5 mmHg. There was no significant change with Valsalva (peak LVOT gradient 10 mmHg). No Amyl given. - Incidental well circumscribed liver lesion, more prominent on current study compared to prior. (clips [id number], [id number]) - Exam was compared with the prior CC echocardiographic exam performed on 03/19/2021. Incidental finding as above; otherwise, no significant change. * * * Final * * * Instructions Given to Patient: Instructions located in the after visit summary. Patient given verbal and written preop instructions and voices comprehension and compliance. SIGNATURE: Latoya Ferrari APRN.CNP PATIENT NAME: Chavo Tom DATE: February 23, 2025 TIME: 9:30 AM PAGER/CONTACT #: documented in this encounter [facility] 03-03-2025 Telephone encounter Note Stp, she has been off of warfarin since 02/28 for upcoming colonoscopy next Thu, prior to 03/02 INR pt was taking 7.5mg daily. Advised pt to take 10mg Wed and Thurs post colonoscopy and then resume 7.5mg daily. Advised pt to test INR 6/10. Will f/u at that time- pt requests calls after 3:30pm. Milla Douglas PharmD [facility] 03-03-2025 Miscellaneous Notes Stp, she has been off of warfarin since 02/28 for upcoming colonoscopy next Thu, prior to 03/02 INR pt was taking 7.5mg daily. Advised pt to take 10mg Wed and Thurs post colonoscopy and then resume 7.5mg daily. Advised pt to test INR 6/10. Will f/u at that time- pt requests calls after 3:30pm. Milla Douglas PharmD Patient called regarding upcoming procedure and dosing instructions. Patient stated she stopped warfarin per paperwork 02/28/2025. Patient has procedure 6/4. Patient transferred to [facility] to discuss further. Bernardo Zamora ([place]) [facility] Anticoagulation Episode Summary Anticoagulation Care Providers Provider Role Specialty Phone number Oneyda Recinos MD Referring Cardiology [phone] Chavo Tom is a 44 year old year old female patient being evaluated today for a Telemanagement visit. Patient is currently on the following anticoagulant(s) Warfarin. Labs Lab Results Component Value Date INR 1.2 03/02/2025 INR 1.5 02/18/2025 INR 2.1 01/19/2025 Lab Results Component Value Date HB 12.9 01/12/2025 HB 13.3 07/14/2024 HB 12.0 03/03/2024 Lab Results Component Value Date HCT 39.6 01/12/2025 HCT 40.6 07/14/2024 HCT 36.0 03/03/2024 Lab Results Component Value Date PLT 336 01/12/2025 PLT 383 07/14/2024 PLT 227 03/03/2024 Lab Results Component Value Date CREAT 0.66 01/12/2025 CREAT 0.77 07/14/2024 CREAT 0.69 03/03/2024 No components found for: "TBILI3" Lab Results Component Value Date ALT 17 01/12/2025 ALT 19 07/14/2024 ALT 30 02/29/2024 Lab Results Component Value Date AST 26 01/12/2025 AST 26 07/14/2024 AST 62 (H) 02/29/2024 Estimated Creatinine Clearance: 109.7 mL/min (based on SCr of 0.66 mg/dL). 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 (hcc) halfway (current) use of 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 Anticoagulation Episode Summary Current INR goal: 2.0-3.0 Assessment: INR result of 1.2 is SUBtherapeutic due to: unknown cause - did not speak to patient Per 03/02 TE, no warfarin hold for dental procedure Plan: Current Warfarin Dosing As of 03/03/2025 Full warfarin instructions: 10 mg every Mon, Fri; 7.5 mg all other days Left voice message Advised patient to increase total weekly regimen Advised pt to Call Coumadin Clinic at [phone] to confirm dosing and follow-up Will attempt to call again next business day Milla Douglas [facility] Clinical Pharmacist, Pharmacy Anticoagulation Clinic Pharmacy [facility] Pager: [phone]. PAC received faxed outside lab/home meter result for patient via mdINR from Date: 03/02 . Results have been scanned into patient's chart and are located under 'Scanned Documents'. Please note, may take up to 10 minutes for document to transfer from [facility] to [facility]. PT INR (no units) Date Value 03/02/2025 1.2 02/18/2025 1.5 01/19/2025 2.1 Maine Paz ([facility] documented in this encounter [facility] 03-03-2025 Telephone encounter Note Patient called regarding upcoming procedure and dosing instructions. Patient stated she stopped warfarin per paperwork 02/28/2025. Patient has procedure 03/08. Patient transferred to [facility] to discuss further. Bernardo Zamora ([facility]) [facility] 03-03-2025 Telephone encounter Note [facility] Anticoagulation Episode Summary Anticoagulation Care Providers Provider Role Specialty Phone number Oneyda Recinos MD Referring Cardiology [phone] Chavo Tom is a 44 year old year old female patient being evaluated today for a Telemanagement visit. Patient is currently on the following anticoagulant(s) Warfarin. Labs Lab Results Component Value Date INR 1.2 03/02/2025 INR 1.5 02/18/2025 INR 2.1 01/19/2025 Lab Results Component Value Date HB 12.9 01/12/2025 HB 13.3 07/14/2024 HB 12.0 03/03/2024 Lab Results Component Value Date HCT 39.6 01/12/2025 HCT 40.6 07/14/2024 HCT 36.0 03/03/2024 Lab Results Component Value Date PLT 336 01/12/2025 PLT 383 07/14/2024 PLT 227 03/03/2024 Lab Results Component Value Date CREAT 0.66 01/12/2025 CREAT 0.77 07/14/2024 CREAT 0.69 03/03/2024 No components found for: "TBILI3" Lab Results Component Value Date ALT 17 01/12/2025 ALT 19 07/14/2024 ALT 30 02/29/2024 Lab Results Component Value Date AST 26 01/12/2025 AST 26 07/14/2024 AST 62 (H) 02/29/2024 Estimated Creatinine Clearance: 109.7 mL/min (based on SCr of 0.66 mg/dL). 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 (hcc) 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 Anticoagulation Episode Summary Current INR goal: 2.0-3.0 Assessment: INR result of 1.2 is SUBtherapeutic due to: unknown cause - did not speak to patient Per 03/02 TE, no warfarin hold for dental procedure Plan: Current Warfarin Dosing As of 03/03/2025 Full warfarin instructions: 10 mg every Mon, Fri; 7.5 mg all other days Left voice message Advised patient to increase total weekly regimen Advised pt to Call Coumadin Clinic at [phone] to confirm dosing and follow-up Will attempt to call again next business day Milla Douglas RPh Clinical Pharmacist, Pharmacy Anticoagulation Clinic Pharmacy Anticoagulation Clinic Pager: [phone]. [facility] 03-03-2025 Telephone encounter Note PAC received faxed outside lab/home meter result for patient via mdINR from Date: 03/02 . Results have been scanned into patient's chart and are located under 'Scanned Documents'. Please note, may take up to 10 minutes for document to transfer from [facility] to [facility]. PT INR (no units) Date Value 03/02/2025 1.2 02/18/2025 1.5 01/19/2025 2.1 Maine Paz ([facility]) [facility] 03-02-2025 Telephone encounter Note Patient returned call and went over notes below from Bertha Atkinson NP with understanding. Aware rx sent to the pharmacy. [facility] 03-02-2025 Miscellaneous Notes Patient returned call and went over notes below from Bertha Atkinson NP with understanding. Aware rx sent to the pharmacy. Left message for patient to return call and speak with a triage nurse Janelle Oconnell Ma Please let patient know that the Coumadin clinic said that they do not recommend holding warfarin/Coumadin for 2 or less simple extractions. I will send that note to the [facility]. I will send a prescription for amoxicillin 4 tablets all at once 1 hour before her dental extraction. Just as a precaution for her implanted defibrillator. Sent to [facility]. PAC is not able to authorize dental clearance. This must be done by the primary care team. Generally, guidelines recommend that warfarin does not need to be held for simple dental extractions of up to 2 teeth but holding anticoagulation is at the discretion of the patient's physician and the dentist performing the procedure. The summary statement from the [place] [employer] is as follows: "There is general agreement that in most cases, treatment regimens with older 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 (e.g., warfarin) and antiplatelet agents (e.g., clopidogrel, ticlopidine, prasugrel, ticagrelor, and/or aspirin) should not be altered before dental procedures. The risks of stopping or reducing these medication regimens (i.e., thromboembolism, stroke, OR) far outweigh the consequences of prolonged bleeding, which can be controlled with local measures." Evidence noted by the ADA includes Based on a literature review, a 2016 Clinical Practice Statement from the [place] [employer] determined that moderately invasive oral surgery (defined as "uncomplicated tooth extraction") is safe with an INR of 3.5, with some experts stating that it is safe up to 4.0.17 A 2008 systematic review and meta-analysis by Shanon et al.44 found that although the risks of hemorrhage and thromboembolism are reduced at an INR range of 2 to 3, ratios moderately higher than this range appeared to be safe and more effective than subtherapeutic ratios." Reviewed above with GENIE Hadley. Advised that she can discuss with the patient's dentist and let PAC know if pt needs to hold warfarin or not. Patient's PCP, Leonie Atkinson CNP, called and advised patient is having 2 teeth extracted and DDS wanted to hold warfarin. She stated she thought she'd reach out to PAC for our input as we manage patient's warfarin. PCP can be reached at [phone] to discuss what she should put on form for DDS. Maine Regner, spray gun striper (Chief Data Officer) Pharmacy Anticoagulation Clinic documented in this encounter [facility] 03-02-2025 Telephone encounter Note Left message for patient to return call and speak with a triage nurse Janelle Oconnell Ma [facility] 03-02-2025 Telephone encounter Note Please let patient know that the Coumadin clinic said that they do not recommend holding warfarin/Coumadin for 2 or less simple extractions. I will send that note to the [facility]. I will send a prescription for amoxicillin 4 tablets all at once 1 hour before her dental extraction. Just as a precaution for her implanted defibrillator. Sent to [facility]. [facility] 03-02-2025 Telephone encounter Note PAC is not able to authorize dental clearance. This must be done by the primary care team. Generally, guidelines recommend that warfarin does not need to be held for simple dental extractions of up to 2 teeth but holding anticoagulation is at the discretion of the patient's physician and the dentist performing the procedure. The summary statement from the [place] [employer] is as follows: "There is general agreement that in most cases, treatment regimens with older 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 (e.g., warfarin) and antiplatelet agents (e.g., clopidogrel, ticlopidine, prasugrel, ticagrelor, and/or aspirin) should not be altered before dental procedures. The risks of stopping or reducing these medication regimens (i.e., thromboembolism, stroke, OR) far outweigh the consequences of prolonged bleeding, which can be controlled with local measures." Evidence noted by the ADA includes Based on a literature review, a 2016 Clinical Practice Statement from the [place] [employer] determined that moderately invasive oral surgery (defined as "uncomplicated tooth extraction") is safe with an INR of 3.5, with some experts stating that it is safe up to 4.0.17 A 2008 systematic review and meta-analysis by Shanon et al.44 found that although the risks of hemorrhage and thromboembolism are reduced at an INR range of 2 to 3, ratios moderately higher than this range appeared to be safe and more effective than subtherapeutic ratios." Reviewed above with GENIE Hadley. Advised that she can discuss with the patient's dentist and let PAC know if pt needs to hold warfarin or not. [facility] 03-02-2025 Telephone encounter Note Patient's PCP, Leonie Atkinson CNP, called and advised patient is having 2 teeth extracted and DDS wanted to hold warfarin. She stated she thought she'd reach out to PAC for our input as we manage patient's warfarin. PCP can be reached at [phone] to discuss what she should put on form for DDS. Maine Paz CPhT (Chief Data Officer) Pharmacy Anticoagulation Clinic [facility] 02-20-2025 Telephone encounter Note [facility] Anticoagulation Episode Summary Anticoagulation Care Providers Provider Role Specialty Phone number Oneyda Recinos MD Referring Cardiology [phone] Chavo Tom is a 44 year old year old female patient being evaluated today for a Telemanagement visit. Patient is currently on the following anticoagulant(s) Warfarin. Labs Lab Results Component Value Date INR 1.5 02/18/2025 INR 2.1 01/19/2025 INR 1.3 01/04/2025 Lab Results Component Value Date HB 12.9 01/12/2025 HB 13.3 07/14/2024 HB 12.0 03/03/2024 Lab Results Component Value Date HCT 39.6 01/12/2025 HCT 40.6 07/14/2024 HCT 36.0 03/03/2024 Lab Results Component Value Date PLT 336 01/12/2025 PLT 383 07/14/2024 PLT 227 03/03/2024 Lab Results Component Value Date CREAT 0.66 01/12/2025 CREAT 0.77 07/14/2024 CREAT 0.69 03/03/2024 No components found for: "TBILI3" Lab Results Component Value Date ALT 17 01/12/2025 ALT 19 07/14/2024 ALT 30 02/29/2024 Lab Results Component Value Date AST 26 01/12/2025 AST 26 07/14/2024 AST 62 (H) 02/29/2024 Estimated Creatinine Clearance: 109.7 mL/min (based on SCr of 0.66 mg/dL). 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 (hcc) halfway (current) use of 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 Anticoagulation Episode Summary Current INR goal: 2.0-3.0 Assessment: INR result of 1.5 is SUBtherapeutic due to: unknown cause - did not speak to patient - INR From Thursday Hx unable to reach pt and non-complance to Pharmacy Anticoagulation Clinic Plan: Current Warfarin Dosing As of 02/20/2025 Full warfarin instructions: 02/20: 12.5 mg; Otherwise 7.5 mg every day Left voice message - LVM 12.5mg warfarin today and call Pharmacy Anticoagulation Clinic back Patient advised to call the PAC with any medication changes, bleeding/bruising concerns, recent changes in vitamin k consumption, if any procedures are coming up, if they have been ill or in the hospital, and if they have missed any doses of warfarin. Rosa Moore RPh Clinical Pharmacist, Pharmacy Anticoagulation Clinic Pharmacy Anticoagulation Clinic Pager: [phone]. [facility] 02-20-2025 Miscellaneous Notes [facility] Antico[facility] Anticoagulation Episode Summary Anticoagulation Care Providers Provider Role Specialty Phone number Oneyda Recinos MD Referring Cardiology [phone] Chavo Tom is a 44 year old year old female patient being evaluated today for a Telemanagement visit. Patient is currently on the following anticoagulant(s) Warfarin. Labs Lab Results Component Value Date INR 1.5 02/18/2025 INR 2.1 01/19/2025 INR 1.3 01/04/2025 Lab Results Component Value Date HB 12.9 01/12/2025 HB 13.3 07/14/2024 HB 12.0 03/03/2024 Lab Results Component Value Date HCT 39.6 01/12/2025 HCT 40.6 07/14/2024 HCT 36.0 03/03/2024 Lab Results Component Value Date PLT 336 01/12/2025 PLT 383 07/14/2024 PLT 227 03/03/2024 Lab Results Component Value Date CREAT 0.66 01/12/2025 CREAT 0.77 07/14/2024 CREAT 0.69 03/03/2024 No components found for: "TBILI3" Lab Results Component Value Date ALT 17 01/12/2025 ALT 19 07/14/2024 ALT 30 02/29/2024 Lab Results Component Value Date AST 26 01/12/2025 AST 26 07/14/2024 AST 62 (H) 02/29/2024 Estimated Creatinine Clearance: 109.7 mL/min (based on SCr of 0.66 mg/dL). 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 (hcc) halfway (current) use of 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 Anticoagulation Episode Summary Current INR goal: 2.0-3.0 Assessment: INR result of 1.5 is SUBtherapeutic due to: unknown cause - did not speak to patient - INR From Thursday Hx unable to reach pt and non-complance to Pharmacy Anticoagulation Clinic Plan: Current Warfarin Dosing As of 02/20/2025 Full warfarin instructions: 02/20: 12.5 mg; Otherwise 7.5 mg every day Left voice message - LVM 12.5mg warfarin today and call Pharmacy Anticoagulation Clinic back Patient advised to call the PAC with any medication changes, bleeding/bruising concerns, recent changes in vitamin k consumption, if any procedures are coming up, if they have been ill or in the hospital, and if they have missed any doses of warfarin. Rosa Moore RPh Clinical Pharmacist, Pharmacy Anticoagulation Clinic Pharmacy Anticoagulation Clinic Pager: [phone]. PAC received faxed outside lab/home meter result for patient via mdINR from Date: 02/18 . Results have been scanned into patient's chart and are located under 'Scanned Documents'. Please note, may take up to 10 minutes for document to transfer [facility]. PT INR (no units) Date Value 02/18/2025 1.5 01/19/2025 2.1 01/04/2025 1.3 [place] Paz ([facility] documented in this encounter [facility] 02-20-2025 Telephone encounter Note PAC received faxed outside lab/home meter result for patient via mdINR from Date: 02/18 . Results have been scanned into patient's chart and are located under 'Scanned Documents'. Please note, may take up to 10 minutes for document to transfer from [facility] to [facility]. PT INR (no units) Date Value 02/18/2025 1.5 01/19/2025 2.1 01/04/2025 1.3 [place] Paz ([facility] 02-08-2025 Radiology Diagnostic study note [facility] Imaging Services [address], [place] [id number] Abdomen/Pelvis W IV Cont ONLY MR#: [id number] Acct: [id number] Name: CHAVO TOM Rep #: [id number] : 1980 F [id number] From: Laisha Neil MD PCP: Yissel Atkinson, [employer] Status: REG ER Study:Abdomen/Pelvis W IV Cont ONLY Date of E xam: 02/08/25 Exam# [id number] Ordering Dr: Mirna Duffy DO PROCEDURE: ABDOMEN/PELVIS W IV CONT ONLY 02/08/2025 REASON FOR EXAM: Vomiting, GASTRIC BYPASS SX, TECHNIQUE: Abdomen and pelvis CT with intravenous contrast. Coronal and Sagittal reconstruction series were provided. PATIENT PREPARATION: Per protocol ORAL CONTRAST TYPE: None. AMOUNT: mL CONTRAST: Omnipaque 350 VOLUME: 100 mL Not Provided Gauge IV One or more dose reduction techniques were used (e.g., Automated exposure control, adjustment of the mA and/or kV according to patient size, use of iterative reconstruction technique. COMPARISON: None FINDINGS: Lung bases: Left lateral chest wall nerve stimulating device. Status post median sternotomy. Liver: Hepatomegaly, craniocaudal length 20.1 cm. 17 mm low-attenuation right inferior lobe with suggestion of nodular mural enhancement, likely represents a hemangioma. Gallbladder: No ductal dilation. Cholecystectomy. Spleen: Normal size. Pancreas: Normal size without evidence of mass surrounding inflammation or ductal dilation. Adrenals: Unremarkable. Kidneys: Normal renal sizes. No hydronephrosis. Bladder: Urinary bladder is unremarkable. Reproductive Organs: Bilateral adnexal cysts. IUD noted within normal position. Bowel: Status post Jenny-en-Y. Nonspecific wall thickening of the gastric pouch. No bowel dilation or wall thickening. Appendix: The appendix is not identified. There is no inflammatory process identified in the right lower quadrant to suggest appendicitis. Lymph nodes: No suspicious lymph node enlargement. Vasculature: Mild diffuse atherosclerotic calcifications are noted. Peritoneum / Retroperitoneum: No ascites. No pneumoperitoneum. Bones: Unremarkable. Soft tissue: Mild diffuse subcutaneous edema. CT/Abdomen/Pelvis W IV Cont ONLY IMPRESSION: No acute findings in the abdomen and pelvis. Hepatomegaly. 17 mm right inferior hepatic lobe low-attenuation lesion, likely a hemangioma. Recommend further evaluation with MRI of the liver. Reading Location: [facility] CC: MARLEN Atkinson; Dr. Enriqueta Duffy, DO ~ Web Development Instructor: Signed [facility] 02-08-2025 Note HNO ID: [id number] Author: ALEC BLAIR APRN.REGISTERED DIET TECHNICIAN Service: ? Author Type: Nurse Practitioner Type: Progress Notes Filed: 02/08/2025 08:07 Note Text: Chavo Tom is a 44 year old female S/P an IUD insertion 01/11/2025. Since that time, she has had no concerns of abdominal pain, pelvic pain, vaginal discharge, fever or chills. PHYSICAL EXAM: ABDOMEN: soft, non-tender, non-distended SPECULUM EXAM: external genitalia normal, normal Bartholin's glands, urethra, Hoback's glands, no vulvar lesions, no cervical lesions, normal discharge, IUD string is well visualized and of normal length BIMANUAL: no cervical motion tenderness,uterus normal size, shape and consistency,no adnexal masses,non-tender ASSESSMENT / PLAN: 1. Normal IUD check. Pt to f/u as scheduled for screening examinations or sooner prn. I spent a total of 10 minutes on the date of the service which included preparing to see the patient, eyty-es-eyso patient care, completing clinical documentation, obtaining and/or reviewing separately obtained history, performing a medically appropriate examination, and counseling and educating the patient/family/caregiver. [facility] 02-08-2025 History of Present illness Narrative Chavo Tom is a 44 year old female S/P an IUD insertion 01/11/2025. Since that time, she has had no concerns of abdominal pain, pelvic pain, vaginal discharge, fever or chills. PHYSICAL EXAM: ABDOMEN: soft, non-tender, non-distended SPECULUM EXAM: external genitalia normal, normal Bartholin's glands, urethra, Hoback's glands, no vulvar lesions, no cervical lesions, normal discharge, IUD string is well visualized and of normal length BIMANUAL: no cervical motion tenderness,uterus normal size, shape and consistency,no adnexal masses,non-tender ASSESSMENT / PLAN: 1. Normal IUD check. Pt to f/u as scheduled for screening examinations or sooner prn. I spent a total of 10 minutes on the date of the service which included preparing to see the patient, iwnn-oi-kabj patient care, completing clinical documentation, obtaining and/or reviewing separately obtained history, performing a medically appropriate examination, and counseling and educating the patient/family/caregiver. documented in this encounter [facility] 02-07-2025 Telephone encounter Note Dear, Dr. Josue Recinos, your patient, Chavo Tom is scheduled for EGD with Dr. Bailey on 03/08/2025. History of atrial fibrillation and currently on Coumadin (Warfarin). Please advise if Chavo can hold Coumadin 5 days prior to the procedure per anesthesia guidelines? Thank you, Dave Walters PACC RN [facility] 02-07-2025 Miscellaneous Notes Dear, Dr. Josue Recinos, your patient, Chavo Tom is scheduled for EGD with Dr. Bailey on 03/08/2025. History of atrial fibrillation and currently on Coumadin (Warfarin). Please advise if Chavo can hold Coumadin 5 days prior to the procedure per anesthesia guidelines? Thank you, Dave Walters PACC RN documented in this encounter [facility] 02-07-2025 Note HNO ID: [id number] Author: TIFFANY WALTERS RN Service: ? Author Type: Registered Nurse Type: Progress Notes Filed: 02/09/2025 07:05 Note Text: RN Pre Visit Questionnaire for upcoming PACC appointment PROCEDURE : EGD SURGEON : Dr. Flaquita Bailey PROCEDURE DATE : 03/08/2025 PACC APPT : 02/23/2025 Prepared for surgery: Anticoagulant recommendations received: Yes RN Pre Visit Questionnaire [facility] by [facility] chart review and completed with patient. Do you see a cargo checker, tourist agent, cap machine operator or other specialist within or outside of [facility]? SPECIALISTS: CARDIOLOGY: Business Development Sales Executive Dr. Jose R Hurley, Last office visit greater than a year. CARDIOLOGY/EP: Documentation Coordinator Office Visit with Oneyda Recinos MD (09/07/2024) PRIMARY CARE PHYSICIAN: Office Visit with Yissel Atkinson APRN.CNP (01/12/2025) FIRE LIEUTENANT: Office Visit with Alec Blair APRN.CNP (01/11/2025) Are you on an anticoagulant PACC Anticoagulant: Yes Medication : Coumadin Have you been provided instructions: No Anticoagulation recommendations : Found in telephone encounter on 02/07/2025 Provider : Dr Josue Recinos Anticoagulation instructions : Can hold Coumadin 5 days preop reply~ Telephone with Tiffany Walters RN (02/07/2025) Implanted Devices: Sub Q ICD Last interrogation: remote check done 11/08/2024; in person 09/07/2024, Type of device/Collections Attorney: [place] [employer] S-ICD A219, Battery life-62%, no shocks; Location of CIED generator in body: left chest below left armpit AND Surgical site: upper airway Mirena IUD implanted 01/11/2025 Most recent ECG COMPLETE (09/07/2024 8:54 AM) Most recent ECHO (10/22/2022 9:32 AM) Most recent DEVICE CHECK: CARDIAC IMPLANTABLE DEVICE CHECK REMOTE (11/08/2024 4:01 PM) Hx atrial fibrillation WPW- S/P ablation 2013 Sub Q-ICD implanted 2013- battery exchanged 2020 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 No Are you a Pre Diabetic/Diabetic/Weight loss/CHF medications No Dialysis No Skilled Facility Resident: no Any recent hospitalizations within [facility] or outside facilities in the past 3 months No Please have an up-to-date list of medications in preparation for your PACC visit. SIGNATURE: Tiffany Walters RN PATIENT NAME: Chavo Tom DATE: February 07, 2025 TIME: 12:06 PM PAGER/CONTACT PHONE: [facility] 02-07-2025 History of Present illness Narrative RN Pre Visit Questionnaire for upcoming PACC appointment PROCEDURE : EGD SURGEON : Dr. Flaquita Bailey PROCEDURE DATE : 03/08/2025 PACC APPT : 02/23/2025 Prepared for surgery: Anticoagulant recommendations received: Yes RN Pre Visit Questionnaire completed by [facility] chart review and completed with patient. Do you see a cargo checker, tourist agent, cap machine operator or other specialist within or outside of [facility]? SPECIALISTS: CARDIOLOGY: Business Development Sales Executive Dr. Jose R Hurley, Last office visit greater than a year. CARDIOLOGY/EP: Documentation Coordinator Office Visit with Oneyda Recinos MD (09/07/2024) PRIMARY CARE PHYSICIAN: Office Visit with Yissel Atkinson APRN.CNP (01/12/2025) FIRE LIEUTENANT: Office Visit with Alec Blair APRN.CNP (01/11/2025) Are you on an anticoagulant PACC Anticoagulant: Yes Medication : Coumadin Have you been provided instructions: No Anticoagulation recommendations : Found in telephone encounter on 02/07/2025 Provider : Dr Josue Recinos Anticoagulation instructions : Can hold Coumadin 5 days preop reply~ Telephone with Tiffany Walters RN (02/07/2025) Implanted Devices: Sub Q ICD Last interrogation: remote check done 11/08/2024; in person 09/07/2024, Type of device/Collections Attorney: [employer] S-ICD A219, Battery life-62%, no shocks; Location of CIED generator in body: left chest below left armpit & Surgical site: upper airway Mirena IUD implanted 01/11/2025 Most recent ECG COMPLETE (09/07/2024 8:54 AM) Most recent ECHO (10/22/2022 9:32 AM) Most recent DEVICE CHECK: CARDIAC IMPLANTABLE DEVICE CHECK REMOTE (11/08/2024 4:01 PM) Hx atrial fibrillation WPW- S/P ablation 2013 Sub Q-ICD implanted 2013- battery exchanged 2020 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 No Are you a Pre Diabetic/Diabetic/Weight loss/CHF medications No Dialysis No Skilled Facility Resident: no Any recent hospitalizations within [facility] or outside facilities in the past 3 months No Please have an up-to-date list of medications in preparation for your PACC visit. SIGNATURE: Tiffany Walters RN PATIENT NAME: Chavo Tom DATE: February 07, 2025 TIME: 12:06 PM PAGER/CONTACT PHONE: documented in this encounter [facility] 01-23-2025 Telephone encounter Note Called and spoke to pt. She confirmed received [facility] msg and has been on 7.5mg daily for last week and a half. Confirmed will check INR . Roas Moore RPh [facility] Work Phone: 01-23-2025 Miscellaneous Notes Called and spoke to pt. She confirmed received [facility] msg and has been on 7.5mg daily for last week and a half. Confirmed will check INR . Rosa Moore RPh [facility] Ambulatory [facility] Anticoagulation Episode Summary Anticoagulation Care Providers Provider Role Specialty Phone number Oneyda Recinos MD Referring Cardiology [phone] Chavo Tom is a 44 year old year old female patient being evaluated today for a Telemanagement visit. Patient is currently on the following anticoagulant(s) Warfarin. Labs PT INR (no units) Date Value 01/19/2025 2.1 01/04/2025 1.3 01/01/2025 1.2 Hemoglobin (g/dL) Date Value 01/12/2025 12.9 05/14/2021 14.4 Hematocrit (%) Date Value 01/12/2025 39.6 05/14/2021 44.4 Platelet Count (k/uL) Date Value 01/12/2025 336 05/14/2021 307 Creatinine (mg/dL) Date Value 01/12/2025 0.66 07/14/2024 0.77 03/03/2024 0.69 05/14/2021 0.83 03/19/2021 0.82 01/07/2021 0.65 Bilirubin, Total (mg/dL) Date Value 01/12/2025 0.6 08/27/2020 0.4 ALT (U/L) Date Value 01/12/2025 17 05/14/2021 33 AST (U/L) Date Value 01/12/2025 26 05/14/2021 26 Estimated Creatinine Clearance: 109.7 mL/min (based on SCr of 0.66 mg/dL). 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 (hcc) halfway (current) use of 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 Anticoagulation Episode Summary Current INR goal: 2.0-3.0 Assessment: INR result of 2.1 is therapeutic Plan: Current Warfarin Dosing As of 01/20/2025 Full warfarin instructions: 7.5 mg every day Left voice message And sent a [employer] message Advised patient to continue current weekly dose as noted above Next home INR check scheduled on 01/26 Will call back again Thursday to ensure pt received dosing information. Milla Douglas RPh Clinical Pharmacist, [facility] Pager: [phone]. [facility] received a fax from [facility] for the patient's INR result on 01/19. Fax will be sent to the patient's scanned documents. PT INR (no units) Date Value 01/19/2025 2.1 01/04/2025 1.3 01/01/2025 1.2 Bozena Calloway RN [facility] documented in this encounter [facility] 01-20-2025 Telephone encounter Note [facility] Anticoagulation Episode Summary Anticoagulation Care Providers Provider Role Specialty Phone number Oneyda Recinos MD Referring Cardiology [phone] Chavo Tom is a 44 year old year old female patient being evaluated today for a Telemanagement visit. Patient is currently on the following anticoagulant(s) Warfarin. Labs PT INR (no units) Date Value 01/19/2025 2.1 01/04/2025 1.3 01/01/2025 1.2 Hemoglobin (g/dL) Date Value 01/12/2025 12.9 05/14/2021 14.4 Hematocrit (%) Date Value 01/12/2025 39.6 05/14/2021 44.4 Platelet Count (k/uL) Date Value 01/12/2025 336 05/14/2021 307 Creatinine (mg/dL) Date Value 01/12/2025 0.66 07/14/2024 0.77 03/03/2024 0.69 05/14/2021 0.83 03/19/2021 0.82 01/07/2021 0.65 Bilirubin, Total (mg/dL) Date Value 01/12/2025 0.6 08/27/2020 0.4 ALT (U/L) Date Value 01/12/2025 17 05/14/2021 33 AST (U/L) Date Value 01/12/2025 26 05/14/2021 26 Estimated Creatinine Clearance: 109.7 mL/min (based on SCr of 0.66 mg/dL). 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 (hcc) 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 Anticoagulation Episode Summary Current INR goal: 2.0-3.0 Assessment: INR result of 2.1 is therapeutic Plan: Current Warfarin Dosing As of 01/20/2025 Full warfarin instructions: 7.5 mg every day Left voice message And sent a [employer] message Advised patient to continue current weekly dose as noted above Next home INR check scheduled on 01/26 Will call back again Thursday to ensure pt received dosing information. Milla oDuglas RPh Clinical Pharmacist, Pharmacy Anticoagulation Clinic [facility] Pager: [phone]. [facility] 01-20-2025 Telephone encounter Note [facility] received a fax from [facility] for the patient's INR result on 01/19. Fax will be sent to the patient's scanned documents. PT INR (no units) Date Value 01/19/2025 2.1 01/04/2025 1.3 01/01/2025 1.2 Bozena Calloway, RN [facility] 01-13-2025 Progress note Formatting of t his note might be different from the original. Potassium has normalized. Kidney function normal, blood counts normal. [facility] 01-13-2025 Miscellaneous Notes Potassium has normalized. Kidney function normal, blood counts normal. documented in this encounter [facility] 01-12-2025 Instructions Yissel Atkinson APRN.CNP - 01/12/2025 10:08 AM EDT 1) check labs today 2) follow up in 6 months- physical documented in this encounter [facility] 01-12-2025 Note HNO ID: [id number] Author: YISSEL ATKINSON APRN.CNP Service: ? Author Type: Nurse Practitioner Type: Progress Notes Filed: 01/12/2025 10:09 Note Text: This is a 44 year old female who presents today with: Patient presents with: 6 Month Exam HISTORY OF PRESENT ILLNESS: Chavo Tom is a 44 year old female. Patient presents with: 6 Month Exam No health complaints or concerns PAST MEDICAL HISTORY: PAST MEDICAL HISTORY Diagnosis Date Atrial fibrillation (HCC) CHADS score 0 Cardiomyopathy (HCC) 02/24/14 Family history of hypertrophic cardiomyopathy 01/18/2014 Impaired glucose tolerance 01/21/2011 Left bundle branch block Obesity S/P gastric bypass 02/18/2023 Sleep apnea Thyroid nodule, cold 04/12/2018 10/15/2020 US 4mm right nodule: no f/u recommended 3/8/17 US right nodule smaller: Heterogeneous solid nodule mid pole 6 x 4 x 5 mm01/27/14 US:hypoechoic 9 x 5 x 6mm nodule anteriorly at the mid right lobe 03/14/[address] 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 Cardioverted with 150j under sedation DEFIBRILLATOR SURGERY 02/24/2014 ICD, redo WPW AND atrial fib ablation EPS: DEFIB. SURGERY 05/16/2021 Exchange of a [employer] SQ-RX 1010 pulse generator with a [employer] SURG ANT SGMT PROC UNLISTED Right 05/03/2024 Dr. Parker INSERTION OF IUD 01/11/2025 Mirena IUD REMOVAL 01/11/2025 LAP GASTRIC BYPASS/JENNY-EN-Y 02/18/2023 150cmantecolic jenny, 70cm bp limb LAPAROSCOPIC CHOLECYSTECTOMY 05/20/2023 PAST SURGICAL HISTORY OF 07/06/2014 WPW ablation PAST SURGICAL HISTORY OF 11/21/2019 MVr, myectomy, PVI, LAAC TYMPANOSTOMY LOCAL/TOPICAL ANESTHESIA Right ALLERGIES Metformin and Nsaids (Non-Steroidal Anti-Inflammatory Drug) MEDICATIONS Current Outpatient Medications Medication Sig levonorgestrel (MIRENA) 21 mcg/24hr (up to 8 yrs) 52 mg IUD 1 each by INTRAUTERINE route as directed. cycloSPORINE (RESTASIS) 0.05 % ophthalmic emulsion Use 1 drop in both eyes two times a day. cycloSPORINE-chondroitin sulfate A (KLARITY-C) 0.1-0.25 % ophthalmic drops Use 1 drop in both eyes two times a day. doxycycline (VIBRA-TABS) 100 mg tablet TAKE 1/2 (ONE-HALF) OF A TABLET BY MOUTH TWICE DAILY warfarin (COUMADIN) 5 mg tablet Take 1.5 tablets by mouth once daily. Equally 7.5 mg Daily cyanocobalamin (VITAMIN B-12) 1,000 mcg tab Take 1 tablet by mouth once daily. multivitamin tablet Take 1 tablet by mouth once daily. calcium carbonate (TUMS) 500 mg chew Take 1 tablet by mouth three times a day. metoprolol succinate ER (TOPROL XL) 25 mg 24 hr tablet Take 1.5 tablets by mouth once daily. sotalol (BETAPACE) 120 mg tablet Take 1 tablet by mouth two times a day. cholecalciferol, vitamin D3, (VITAMIN D3 ORAL) Take by mouth. tacrolimus (PROTOPIC) 0.03 % ointment Apply to affected area twice daily. No current facility-administered medications for this visit. FAMILY HISTORY Problem Relation Age of Onset Lipids Father Diabetes Mother Hypertension Mother Thyroid Mother Coronary Artery Disease Mother CABG 2012 Diabetes Brother Heart Sister HOCM s/p ICD None Maternal Grandfather age 46-"suddenly" Heart Maternal Grandmother OR age 72 Alcohol/Drug Paternal Grandfather ETOH Diabetes Maternal Aunt Diabetes Maternal Uncle Colon Cancer No Family History Anesthesia Problems No Family History Social History Tobacco Use Smoking status: Never Smokeless tobacco: Never Vaping Use Vaping status: Never Used Substance Use Topics Alcohol use: No Drug use: No REVIEW OF SYSTEMS GENERAL: No weight loss, no malaise, no fevers/chills, some night sweats HEENT: Negative for frequent or significant headaches, No changes in hearing or vision. NECK: Negative for lumps, goiter, pain and significant neck swelling RESPIRATORY: Negative for cough, hemoptysis, wheezing, dyspnea or shortness of breath CARDIOVASCULAR: Negative for chest pain, leg swelling, orthopnea, PND or palpitations GI: No nausea, vomiting, or diarrhea/constipation. No hematochezia/melena. No heartburn or reflux symptoms. : No history of dysuria, frequency or incontinence MUSCULOSKELETAL: Negative for joint pain or swelling. SKIN: Negative for lesions, rash, and itching ENDOCRINE: Negative for cold or heat intolerance, polyuria, polydipsia and goiter NEURO: No history of headaches, syncope, paralysis, seizures or tremors MOOD: Negative for depression, anxiety, or suicidal ideation. EXAM: BP 98/66 Pulse 76 Wt 69.9 kg (154 lb) LMP 01/06/2012 (Approximate) SpO2 99% BMI 23.42 kg/m? PHYSICAL EXAM: Physical Exam Vitals reviewed. Constitutional: Appe (more content not included)... [facility] 01-12-2025 History of Present illness Narrative This is a 44 year old female who presents today with: Patient presents with: 6 Month Exam HISTORY OF PRESENT ILLNESS: Chavo Tom is a 44 year old female. Patient presents with: 6 Month Exam No health complaints or concerns PAST MEDICAL HISTORY: PAST MEDICAL HISTORY Diagnosis Date Atrial fibrillation (HCC) CHADS score 0 Cardiomyopathy (HCC) 02/24/14 Family history of hypertrophic cardiomyopathy 01/18/2014 Impaired glucose tolerance 01/21/2011 Left bundle branch block Obesity S/P gastric bypass 02/18/2023 Sleep apnea Thyroid nodule, cold 04/12/2018 10/15/2020 US 4mm right nodule: no f/u recommended 12/10/16 US right nodule smaller: Heterogeneous solid nodule mid pole 6 x 4 x 5 mm01/27/14 US:hypoechoic 9 x 5 x 6mm nodule anteriorly at the mid right lobe 03/14/[address] Gama Rubin: felt nodule smaller, did not recommend KE 02/09/14 NM uptake scan: hypo-functoning thyroid nodule right mid-lobe Ventricular tachyarrhythmia (HCC) 02/2014 Ddipp-Mpcskusvo-Bwqyb (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 Cardioverted with 150j under sedation DEFIBRILLATOR SURGERY 02/24/2014 ICD, redo WPW & atrial fib ablation EPS: DEFIB. SURGERY 05/16/2021 Exchange of a [employer] SQ-RX 1010 pulse generator with a [employer] EYE SURG ANT SGMT PROC UNLISTED Right 05/03/2024 Dr. Parker INSERTION OF IUD 01/11/2025 Mirena IUD REMOVAL 01/11/2025 LAP GASTRIC BYPASS/JENNY-EN-Y 02/18/2023 150cmantecolic jenny, 70cm bp limb LAPAROSCOPIC CHOLECYSTECTOMY 05/20/2023 PAST SURGICAL HISTORY OF 07/06/2014 WPW ablation PAST SURGICAL HISTORY OF 11/21/2019 MVr, myectomy, PVI, LAAC TYMPANOSTOMY LOCAL/TOPICAL ANESTHESIA Right ALLERGIES Metformin and Nsaids (Non-Steroidal Anti-Inflammatory Drug) MEDICATIONS Current Outpatient Medications Medication Sig levonorgestrel (MIRENA) 21 mcg/24hr (up to 8 yrs) 52 mg IUD 1 each by INTRAUTERINE route as directed. cycloSPORINE (RESTASIS) 0.05 % ophthalmic emulsion Use 1 drop in both eyes two times a day. cycloSPORINE-chondroitin sulfate A (KLARITY-C) 0.1-0.25 % ophthalmic drops Use 1 drop in both eyes two times a day. doxycycline (VIBRA-TABS) 100 mg tablet TAKE 1/2 (ONE-HALF) OF A TABLET BY MOUTH TWICE DAILY warfarin (COUMADIN) 5 mg tablet Take 1.5 tablets by mouth once daily. Equally 7.5 mg Daily cyanocobalamin (VITAMIN B-12) 1,000 mcg tab Take 1 tablet by mouth once daily. multivitamin tablet Take 1 tablet by mouth once daily. calcium carbonate (TUMS) 500 mg chew Take 1 tablet by mouth three times a day. metoprolol succinate ER (TOPROL XL) 25 mg 24 hr tablet Take 1.5 tablets by mouth once daily. sotalol (BETAPACE) 120 mg tablet Take 1 tablet by mouth two times a day. cholecalciferol, vitamin D3, (VITAMIN D3 ORAL) Take by mouth. tacrolimus (PROTOPIC) 0.03 % ointment Apply to affected area twice daily. No current facility-administered medications for this visit. FAMILY HISTORY Problem Relation Age of Onset Lipids Father Diabetes Mother Hypertension Mother Thyroid Mother Coronary Artery Disease Mother CABG 2012 Diabetes Brother Heart Sister HOCM s/p ICD None Maternal Grandfather age 46-"suddenly" Heart Maternal Grandmother OR age 72 Alcohol/Drug Paternal Grandfather ETOH Diabetes Maternal Aunt Diabetes Maternal Uncle Colon Cancer No Family History Anesthesia Problems No Family History Social History Tobacco Use Smoking status: Never Smokeless tobacco: Never Vaping Use Vaping status: Never Used Substance Use Topics Alcohol use: No Drug use: No REVIEW OF SYSTEMS GENERAL: No weight loss, no malaise, no fevers/chills, some night sweats HEENT: Negative for frequent or significant headaches, No changes in hearing or vision. NECK: Negative for lumps, goiter, pain and significant neck swelling RESPIRATORY: Negative for cough, hemoptysis, wheezing, dyspnea or shortness of breath CARDIOVASCULAR: Negative for chest pain, leg swelling, orthopnea, PND or palpitations GI: No nausea, vomiting, or diarrhea/constipation. No hematochezia/melena. No heartburn or reflux symptoms. : No history of dysuria, frequency or incontinence MUSCULOSKELETAL: Negative for joint pain or swelling. SKIN: Negative for lesions, rash, and itching ENDOCRINE: Negative for cold or heat intolerance, polyuria, polydipsia and goiter NEURO: No history of headaches, syncope, paralysis, seizures or tremors MOOD: Negative for depression, anxiety, or suicidal ideation. EXAM: BP 98/66 Pulse 76 Wt 69.9 kg (154 lb) LMP 01/06/2012 (Approximate) SpO2 99% BMI 23.42 kg/m PHYSICAL EXAM: Physical Exam Vitals reviewed. Constitutional: Appearance: Normal appearance. HENT: Head: Normocephalic. Neck: Vascular: No carotid bruit. Cardiovascular: Rate and Rhythm: Normal rate and regular rhythm. Pulses: Normal pulses. Heart sounds: Normal heart sounds. Pulmonary: Effort: Pulmonary effort is normal. Breath sounds: Normal breath sounds. Abdominal: General: Bowel sounds are normal. Palpations: Abdomen is soft. Tenderness: There is no abdominal tenderness. There is no guarding or rebound. Musculoskeletal: General: Normal range of motion. Right lower leg: No edema. Left lower leg: No edema. Lymphadenopathy: Cervical: No cervical adenopathy. Skin: General: Skin is warm and dry. Neurological: Mental Status: She is alert and oriented to person, place, and time. Psychiatric: Mood and Affect: Mood normal. Behavior: Behavior normal. LABS: check labs ASSESSMENT/PLAN: 1. Paroxysmal atrial fibrillation (HCC) - ICD9: 427.31, ICD10: I48.0 (primary diagnosis) Stable on warfarin - WARFARIN 5 MG TABLET - COMPLETE BLOOD COUNT AND DIFFERENTIAL 2. Ventricular tachyarrhythmia (HCC) - ICD9: 427.1, ICD10: I47.20 Stable - WARFARIN 5 MG TABLET - COMPLETE BLOOD COUNT AND DIFFERENTIAL - COMPREHENSIVE METABOLIC PANEL 3. Dilated cardiomyopathy (HCC) - ICD9: 425.4, ICD10: I42.0 Follows with cardiology - COMPREHENSIVE METABOLIC PANEL 4. 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 - ICD9: V58.61, ICD10: Z79.01 Check INR at home - COMPLETE BLOOD COUNT AND DIFFERENTIAL 5. Vitamin D deficiency, unspecified - ICD9: 268.9, ICD10: E55.9 On replacement 6. Rosacea - ICD9: 695.3, ICD10: L71.9 In eyes, stable - DOXYCYCLINE HYCLATE 100 MG TABLET Discussed treatment plan and patient voices understanding. Patient's questions answered appropriately. Medications and potential side effects were discussed and patient voices understanding. Return to the office as scheduled or as needed for worsening/no improvement. Yissel Atkinson APRN.CNP documented in this encounter [facility] 01-11-2025 Note HNO ID: [id number] Author: TRI PARKER MD Service: ? Author Type: Physician Type: Progress Notes Filed: 01/11/2025 09:12 Note Text: Assessment and Plan 1. 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 Irregular astigmatism of both eyes -rosacea main culprit (on doxycycline) -patient also with long history of contact lens wear (since ~age 18) with varying habits (previously diagnosed with overwear) -recurrent monthly flare-ups with redness and irritation that responds well to steroid drops -decreased vision right eye with progression of superior pannus -s/p superficial keratectomy with amt 05/03/24 - delayed AMT dissolution -looks good! -has been well controlled with cyclosporin and doxycycline Plan: -preservative-free artificial tears four times a da -restasis twice a day both eyes vs klarity-C -doxycyline 50mg daily -3-month dissolvable collagen plug size 0.3 placed lower puncta both eyes 11/19/22 -no contact lens wear -follow-up 6 months / sooner as needed - yearly afterwards alternating with Dr. Dimas -Dr. Dimas for routine/dilated fundus exam/glasses I have confirmed and edited as necessary the relevant ophthalmic history, ROS, and the neuro exam findings as obtained by others. I have seen and examined Chavo Tom. I have discussed the case and the management of this patient's care with the Resident/Fellow, if applicable. I also have reviewed and agree with the assessment and plan as stated above and agree with all of its relevant components. Tri Parker MD [facility] 01-11-2025 History of Present illness Narrative Assessment and Plan 1. 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 Irregular astigmatism of both eyes -rosacea main culprit (on doxycycline) -patient also with long history of contact lens wear (since ~age 18) with varying habits (previously diagnosed with overwear) -recurrent monthly flare-ups with redness and irritation that responds well to steroid drops -decreased vision right eye with progression of superior pannus -s/p superficial keratectomy with amt 05/03/24 - delayed AMT dissolution -looks good! -has been well controlled with cyclosporin and doxycycline Plan: -preservative-free artificial tears four times a da -restasis twice a day both eyes vs klarity-C -doxycyline 50mg daily -3-month dissolvable collagen plug size 0.3 placed lower puncta both eyes 11/19/22 -no contact lens wear -follow-up 6 months / sooner as needed - yearly afterwards alternating with Dr. Dimas -Dr. Dimas for routine/dilated fundus exam/glasses I have confirmed and edited as necessary the relevant ophthalmic history, ROS, and the neuro exam findings as obtained by others. I have seen and examined Chavo Tom. I have discussed the case and the management of this patient's care with the Resident/Fellow, if applicable. I also have reviewed and agree with the assessment and plan as stated above and agree with all of its relevant components. Tri Parker MD documented in this encounter [facility] 01-11-2025 Note HNO ID: [id number] Author: ALEC BLAIR APRN.REGISTERED DIET TECHNICIAN Service: ? Author Type: Nurse Practitioner Type: Progress Notes Filed: 01/11/2025 08:22 Note Text: Chavo presents for removal of IUD due to expiration of IUD. UNIVERSAL PROTOCOL / SAFETY CHECKLIST Procedure to be Performed: Intrauterine Device Removal Sign In: A Moment of CARE was completed. Appropriate PPE (Personal Protective Equipment) worn by all providers involved with the procedure. Special equipment not required. Patient/Surrogate Stated/Verified: Patient name, Date of , Relevant allergies, and The intended procedure Time Out: Relevant labs, photos, and/or imaging studies are not applicable. Intended patient and procedure match the source document(s) (e.g. consent, HANDP, associated studies [imaging, pathology]) match the intended patient and procedure. Consent obtained and matches the intended procedure. Yes. Correct side/site is not applicable. Medications required for this procedure are not applicable. Fire risk assessed and is not applicable. Implants: are not applicable. Sign Out: Specimens not collected. All instruments, equipment, possible retained foreign bodies are accounted for. Yes. The post-procedure plan of care has been communicated to the patient or surrogate. PROCEDURE: Speculum placed in vagina, IUD string visualized and grasped with ring forceps. ASSESSMENT/PLAN: IUD removed without difficulty, intact, and patient tolerated procedure well. Contraception plans: Mirena IUD Alec Blair APRN.GENIE Richey presents today for IUD insertion for contraception. Patient's last menstrual period was 01/06/2012 (approximate). GC/chlamydia: Not done: no risk factors and/or patient declines screening test: n/a Side effects including irregular bleeding were discussed with the patient. The patient understands that it should be removed in 8 years or sooner if the patient desires a . IUD source: office provided IUD lot #: [id number] Exp date: 01/2027 UNIVERSAL PROTOCOL / SAFETY CHECKLIST Procedure to be Performed: Mirena Intrauterine Device Insertion The cervix was prepped with betadine. The uterus sounded to 7 cm and the uterus is Anteverted.. Using sterile technique, the Mirena IUD was inserted without difficulty and the string was cut to 3 cm from the external os of the cervix. Patient tolerated procedure well. PLAN: Patient was advised to observe for signs and symptoms of infection including but not limited to fever, malodorous vaginal discharge and/or pain. The patient was told to check the string monthly for accurate placement. Bleeding expectations were reviewed. Follow up in one month. Alec Blair APRN.GENIE [facility] 01-11-2025 History of Present illness Narrative Chavo presents for removal of IUD due to expiration of IUD. UNIVERSAL PROTOCOL / SAFETY CHECKLIST Procedure to be Performed: Intrauterine Device Removal Sign In: A Moment of CARE was completed. Appropriate PPE (Personal Protective Equipment) worn by all providers involved with the procedure. Special equipment not required. Patient/Surrogate Stated/Verified: Patient name, Date of , Relevant allergies, and The intended procedure Time Out: Relevant labs, photos, and/or imaging studies are not applicable. Intended patient and procedure match the source document(s) (e.g. consent, H&P, associated studies [imaging, pathology]) match the intended patient and procedure. Consent obtained and matches the intended procedure. Yes. Correct side/site is not applicable. Medications required for this procedure are not applicable. Fire risk assessed and is not applicable. Implants: are not applicable. Sign Out: Specimens not collected. All instruments, equipment, possible retained foreign bodies are accounted for. Yes. The post-procedure plan of care has been communicated to the patient or surrogate. PROCEDURE: Speculum placed in vagina, IUD string visualized and grasped with ring forceps. ASSESSMENT/PLAN: IUD removed without difficulty, intact, and patient tolerated procedure well. Contraception plans: Mirena IUD Alec Blair APRN.CNP Crystal presents today for IUD insertion for contraception. Patient's last menstrual period was 01/06/2012 (approximate). GC/chlamydia: Not done: no risk factors and/or patient declines screening test: n/a Side effects including irregular bleeding were discussed with the patient. The patient understands that it should be removed in 8 years or sooner if the patient desires a . IUD source: office provided IUD lot #: [id number] Exp date: 01/2027 UNIVERSAL PROTOCOL / SAFETY CHECKLIST Procedure to be Performed: Mirena Intrauterine Device Insertion The cervix was prepped with betadine. The uterus sounded to 7 cm and the uterus is Anteverted.. Using sterile technique, the Mirena IUD was inserted without difficulty and the string was cut to 3 cm from the external os of the cervix. Patient tolerated procedure well. PLAN: Patient was advised to observe for signs and symptoms of infection including but not limited to fever, malodorous vaginal discharge and/or pain. The patient was told to check the string monthly for accurate placement. Bleeding expectations were reviewed. Follow up in one month. Alec Blair APRN.GENIE documented in this encounter [facility] 01-11-2025 Instructions Jeannette Chun LPN - 01/11/2025 7:45 AM EDT POST IUD INSTRUCTIONS You may have irregular bleeding during the first 3 months of use. You may have mild-severe cramping for the next 48 hours. You may use over the counter medication (Motrin, Tylenol) as needed. Your IUD must be removed or replaced based on the following table: IUD Type Removed or replaced within: Katya 3 years Kyleena 5 years Mirena 8 years Liletta 8 years Paragard 10 years Call the office for signs/symptoms of infection such as severe cramping, fever, or unusual bleeding. Check for string placement as instructed by your doctor. If you have any additional questions, please contact the office. documented in this encounter [facility] 01-09-2025 Telephone encounter Note Called pt and LVM to check INR tomorrow and today take typical 7.5mg. Given pt has been taking much lower doses that Pharmacy [facility]tico[facility] tracker may need to further adjust TWD, but did not today given checking INR tomorrow and last INR 6 days old at this point. Rosa Moore PharmD Heart Failure, Heart Transplant, and Anticoagulation Clinical Stem Cleaning Machine Feeder January 09, 2025 [facility] Work Phone: 01-09-2025 Miscellaneous Notes Called pt and LVM to check INR tomorrow and today take typical 7.5mg. Given pt has been taking much lower doses that Pharmacy Anticoagulation Clinic tracker may need to further adjust TWD, but did not today given checking INR tomorrow and last INR 6 days old at this point. Rosa Moore PharmD Heart Failure, Heart Transplant, and Anticoagulation Clinical Stem Cleaning Machine Feeder January 09, 2025 Patient returned the call and stated she was taking 1 & 1/2 tablets Mon/Th/Sat and one tablet all other days of the week. Patient did not take 15 mg on 01/05/2025. Advised patient of the difficulty we have in regards to reaching out to her and reminded her that she has MDINR and needs to test weekly. Patient works 7a-3:30 pm and is agreeable if we reach out to her after 3:30pm moving forward. Bernardo Zamora ([place]) Called pt and LVM to call Pharmacy Anticoagulation Clinic back. Noted in 01/02 and Pharmacy Anticoagulation Clinic has been unable to reach pt. Rosa Moore PharmD Heart Failure, Heart Transplant, and Anticoagulation Clinical Stem Cleaning Machine Feeder January 09, 2025 The patient was called to discuss recent INR test results. A voice message was left on patient's Cell phone voice mail. The patient was advised to call the Coumadin Clinic at [phone] and continue current warfarin dose. PT INR (no units) Date Value 01/04/2025 1.3 01/01/2025 1.2 12/07/2024 1.2 Lora Raza PharmD,CACP MDinr calling to report the patient's INR result 01/04. Noted result has been addressed below. Bozena Calloway RN Pharmacy Antico[facility] Anticoagulation Episode Summary Anticoagulation Care Providers Provider Role Specialty Phone number Oneyda Recinos MD Referring Cardiology [phone] Chavo Tom is a 44 year old year old female patient being evaluated today for a Telemanagement visit. Patient is currently on the following anticoagulant(s) Warfarin. Labs PT INR (no units) Date Value 01/04/2025 1.3 01/01/2025 1.2 12/07/2024 1.2 Hemoglobin (g/dL) Date Value 07/14/2024 13.3 05/14/2021 14.4 Hematocrit (%) Date Value 07/14/2024 40.6 05/14/2021 44.4 Platelet Count (k/uL) Date Value 07/14/2024 383 05/14/2021 307 Creatinine (mg/dL) Date Value 07/14/2024 0.77 03/03/2024 0.69 03/02/2024 0.78 05/14/2021 0.83 03/19/2021 0.82 01/07/2021 0.65 Bilirubin, Total (mg/dL) Date Value 07/14/2024 0.3 08/27/2020 0.4 ALT (U/L) Date Value 07/14/2024 19 05/14/2021 33 AST (U/L) Date Value 07/14/2024 26 05/14/2021 26 CrCl cannot be calculated (Unknown ideal weight.). 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 (hcc) halfway (current) use of 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 Anticoagulation Episode Summary Current INR goal: 2.0-3.0 Assessment: INR result of 1.3 is SUBtherapeutic due to: unknown cause - did not speak to patient Plan: Current Warfarin Dosing As of 01/04/2025 Full warfarin instructions: 01/05: 15 mg; Otherwise 10 mg every Mon, Diane; 7.5 mg all other days Left voice message Advised patient to increase dose today to 15mg Advised pt to Call Coumadin Clinic at [phone] [facility], we do not know if pt took increased doses of warfarin provided earlier this week, or what dosing she has been taking since. We need to talk to the patient. Brought this up to referring provider's attention in 01/02 note PAC will f/u again tomorrow Milla Douglas RPh Clinical Pharmacist, Pharmacy Anticoagulation Clinic [facility] Pager: [phone]. PAC received faxed outside lab/home meter result for patient via mdINR from Date: 01/04 . Results have been scanned into patient's chart and are located under 'Scanned Documents'. Please note, may take up to 10 minutes for document to transfer from [facility] to [facility]. PT INR (no units) Date Value 01/04/2025 1.3 01/01/2025 1.2 12/07/2024 1.2 Maine Paz ([facility]) documented in this encounter [facility] 01-09-2025 Telephone encounter Note Patient returned the call and stated she was taking 1 & 1/2 tablets Mon//Thu and one tablet all other days of the week. Patient did not take 15 mg on 01/05/2025. Advised patient of the difficulty we have in regards to reaching out to her and reminded her that she has MDINR and needs to test weekly. Patient works 7a-3:30 pm and is agreeable if we reach out to her after 3:30pm moving forward. Bernardo Zamora ([facility]) [facility] 01-09-2025 Telephone encounter Note Called pt and LVM to call Pharmacy Anticoagulation Clinic back. Noted in 01/02 and Pharmacy Anticoagulation Clinic has been unable to reach pt. Rosa Moore PharmD Heart Failure, Heart Transplant, and Anticoagulation Clinical Stem Cleaning Machine Feeder January 09, 2025 [facility] 01-06-2025 Telephone encounter Note The patient was called to discuss recent INR test results. A voice message was left on patient's Cell phone voice mail. The patient was advised to call the Coumadin Clinic at [phone] and continue current warfarin dose. PT INR (no units) Date Value 01/04/2025 1.3 01/01/2025 1.2 12/07/2024 1.2 Lora Begany, PharmD,CACP [facility] 01-05-2025 Telephone encounter Note Tony calling to report the patient's INR result 01/04. Noted result has been addressed below. Bozena Calloway RN Pharmacy Anticoagulation Clinic [facility] 01-05-2025 Telephone encounter Note [facility] Anticoagulation Episode Summary Anticoagulation Care Providers Provider Role Specialty Phone number Oneyda Recinos MD Referring Cardiology [phone] Chavo Tom is a 44 year old year old female patient being evaluated today for a Telemanagement visit. Patient is currently on the following anticoagulant(s) Warfarin. Labs PT INR (no units) Date Value 01/04/2025 1.3 01/01/2025 1.2 12/07/2024 1.2 Hemoglobin (g/dL) Date Value 07/14/2024 13.3 05/14/2021 14.4 Hematocrit (%) Date Value 07/14/2024 40.6 05/14/2021 44.4 Platelet Count (k/uL) Date Value 07/14/2024 383 05/14/2021 307 Creatinine (mg/dL) Date Value 07/14/2024 0.77 03/03/2024 0.69 03/02/2024 0.78 05/14/2021 0.83 03/19/2021 0.82 01/07/2021 0.65 Bilirubin, Total (mg/dL) Date Value 07/14/2024 0.3 08/27/2020 0.4 ALT (U/L) Date Value 07/14/2024 19 05/14/2021 33 AST (U/L) Date Value 07/14/2024 26 05/14/2021 26 CrCl cannot be calculated (Unknown ideal weight.). 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 We need to talk to the patient. Brought this up to referring provider's attention in 01/02 note PAC will f/u again tomorrow Milla Douglas RPh Clinical Pharmacist, Pharmacy Anticoagulation Clinic [facility] Pager: [phone]. [facility] 01-04-2025 Telephone encounter Note PAC received faxed outside lab/home meter result for patient via mdINR from Date: 01/04 . Results have been scanned into patient's chart and are located under 'Scanned Documents'. Please note, may take up to 10 minutes for document to transfer from [facility] to [facility]. PT INR (no units) Date Value 01/04/2025 1.3 01/01/2025 1.2 12/07/2024 1.2 Maine Paz ([place]) [facility] 01-02-2025 Telephone encounter Note [facility] Anticoagulation Episode Summary Anticoagulation Care Providers Provider Role Specialty Phone number Oneyda Recinos MD Referring Cardiology [phone] Chavo Tom is a 44 year old year old female patient being evaluated today for a Telemanagement visit. Patient is currently on the following anticoagulant(s) Warfarin. Labs PT INR (no units) Date Value 01/01/2025 1.2 12/07/2024 1.2 11/02/2024 1.8 Hemoglobin (g/dL) Date Value 07/14/2024 13.3 05/14/2021 14.4 Hematocrit (%) Date Value 07/14/2024 40.6 05/14/2021 44.4 Platelet Count (k/uL) Date Value 07/14/2024 383 05/14/2021 307 Creatinine (mg/dL) Date Value 07/14/2024 0.77 03/03/2024 0.69 03/02/2024 0.78 05/14/2021 0.83 03/19/2021 0.82 01/07/2021 0.65 Bilirubin, Total (mg/dL) Date Value 07/14/2024 0.3 08/27/2020 0.4 ALT (U/L) Date Value 07/14/2024 19 05/14/2021 33 AST (U/L) Date Value 07/14/2024 26 05/14/2021 26 CrCl cannot be calculated (Unknown ideal weight.). 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 (hcc) halfway (current) use of 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 Anticoagulation Episode Summary Current INR goal: 2.0-3.0 Assessment: INR result of 1.2 is SUBtherapeutic due to: unknown cause - did not speak to patient Noted pt on discharge list and last INR 1.2 a month ago and Pharmacy Anticoagulation Clinic was never able to reach pt Plan: Current Warfarin Dosing As of 01/02/2025 Full warfarin instructions: 01/02: 20 mg; Otherwise 10 mg every Mon, Diane; 7.5 mg all other days Left voice message - Left and sent [employer] [facility] [place]. Given INR 1.2 for second time in a row and never able to reach pt last time will place for follow up tomorrow. If unable to reach pt by end of week consider reaching out to referring as unsafe to have warfarin x2 1.2 INR and not able to reach pt to discuss or close INR follow up Patient advised to call the PAC with any medication changes, bleeding/bruising concerns, recent changes in vitamin k consumption, if any procedures are coming up, if they have been ill or in the hospital, and if they have missed any doses of warfarin. Rosa Moore RPh Clinical Pharmacist, Pharmacy Anticoagulation Clinic Pharmacy [facility]tico[facility] Pager: [phone]. [facility] 01-02-2025 Miscellaneous Notes [facility] Anticoagulation Episode Summary Anticoagulation Care Providers Provider Role Specialty Phone number Oneyda Recinos MD Referring Cardiology [phone] Chavo Tom is a 44 year old year old female patient being evaluated today for a Telemanagement visit. Patient is currently on the following anticoagulant(s) Warfarin. Labs PT INR (no units) Date Value 01/01/2025 1.2 12/07/2024 1.2 11/02/2024 1.8 Hemoglobin (g/dL) Date Value 07/14/2024 13.3 05/14/2021 14.4 Hematocrit (%) Date Value 07/14/2024 40.6 05/14/2021 44.4 Platelet Count (k/uL) Date Value 07/14/2024 383 05/14/2021 307 Creatinine (mg/dL) Date Value 07/14/2024 0.77 03/03/2024 0.69 03/02/2024 0.78 05/14/2021 0.83 03/19/2021 0.82 01/07/2021 0.65 Bilirubin, Total (mg/dL) Date Value 07/14/2024 0.3 08/27/2020 0.4 ALT (U/L) Date Value 07/14/2024 19 05/14/2021 33 AST (U/L) Date Value 07/14/2024 26 05/14/2021 26 CrCl cannot be calculated (Unknown ideal weight.). 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 (hcc) halfway (current) use of 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 Anticoagulation Episode Summary Current INR goal: 2.0-3.0 Assessment: INR result of 1.2 is SUBtherapeutic due to: unknown cause - did not speak to patient Noted pt on discharge list and last INR 1.2 a month ago and Pharmacy Anticoagulation Clinic was never able to reach pt Plan: Current Warfarin Dosing As of 01/02/2025 Full warfarin instructions: 01/02: 20 mg; Otherwise 10 mg every Mon, Diane; 7.5 mg all other days Left voice message - Left VM and sent [facility] msg. Given INR 1.2 for second time in a row and never able to reach pt last time will place for follow up tomorrow. If unable to reach pt by end of week consider reaching out to referring as unsafe to have warfarin x2 1.2 INR and not able to reach pt to discuss or close INR follow up Patient advised to call the PAC with any medication changes, bleeding/bruising concerns, recent changes in vitamin k consumption, if any procedures are coming up, if they have been ill or in the hospital, and if they have missed any doses of warfarin. Rosa Moore RPh Clinical Pharmacist, Pharmacy Anticoagulation Clinic [facility] Pager: [phone]. Received fax from [facility] with INR results for patient. Patient tested on 01/01/2025 and the INR result was 1.2. Fax can be found under scanned documents as miscellaneous lab result. It may take a few minutes to transfer from [employer]. PT INR (no units) Date Value 01/01/2025 1.2 12/07/2024 1.2 11/02/2024 1.8 Bernardo Zamora, Chief Data Officer (spray gun striper) [facility] documented in this encounter [facility] 01-02-2025 Telephone encounter Note Received fax from [facility] with INR results for patient. Patient tested on 01/01/2025 and the INR result was 1.2. Fax can be found under scanned documents as miscellaneous lab result. It may take a few minutes to transfer from [employer]. PT INR (no units) Date Value 01/01/2025 1.2 12/07/2024 1.2 11/02/2024 1.8 Bernardo Zamora, Chief Data Officer (spray gun striper) Pharmacy Anticoagulation Clinic [facility] 01-01-2025 Telephone encounter Note Received after hour call from INR managing service. Patient's home INR was 1.2. Patient was called but phone went to voicemail. I left a message asking her to call our office for further guidance. Matt Chamberlain MD Fellow Cardiac Electrophysiology and Pacing [facility] Work Phone: 01-01-2025 Miscellaneous Notes Received after hour call from INR managing service. Patient's home INR was 1.2. Patient was called but phone went to voicemail. I left a message asking her to call our office for further guidance. Matt Chamberlain MD Fellow Cardiac Electrophysiology and Pacing documented in this encounter [facility] 12-12-2024 Telephone encounter Note 3rd attempt to reach pt and left VM to call Pharmacy Anticoagulation Clinic back. Left VM INR due Thursday 12/14. Will move follow up to Thursday as unable to reach pt x3. Rosa Moore PharmD Heart Failure, Heart Transplant, and Anticoagulation Clinical Stem Cleaning Machine Feeder December 12, 2024 [facility] Work Phone: 12-12-2024 Miscellaneous Notes 3rd attempt to reach pt and left VM to call Pharmacy Anticoagulation Clinic back. Left VM INR due Thursday 12/14. Will move follow up to Thursday as unable to reach pt x3. Rosa Moore PharmD Heart Failure, Heart Transplant, and Anticoagulation Clinical Stem Cleaning Machine Feeder December 12, 2024 Called pt and left another vmx, reminding of yesterday's dose and to continue regular weekly dose now. Advised pt to Call Coumadin Clinic at [phone] to discuss dosing further Milla Douglas PharmD [facility] Ambulatory Pharmacy Anticoagulation Clinic Anticoagulation Episode Summary Anticoagulation Care Providers Provider Role Specialty Phone number Oneyda Recinos MD Referring Cardiology [phone] Chavo Tom is a 44 year old year old female patient being evaluated today for a Telemanagement visit. Patient is currently on the following anticoagulant(s) Warfarin. Labs PT INR (no units) Date Value 12/07/2024 1.2 11/02/2024 1.8 10/05/2024 1.5 Hemoglobin (g/dL) Date Value 07/14/2024 13.3 05/14/2021 14.4 Hematocrit (%) Date Value 07/14/2024 40.6 05/14/2021 44.4 Platelet Count (k/uL) Date Value 07/14/2024 383 05/14/2021 307 Creatinine (mg/dL) Date Value 07/14/2024 0.77 03/03/2024 0.69 03/02/2024 0.78 05/14/2021 0.83 03/19/2021 0.82 01/07/2021 0.65 Bilirubin, Total (mg/dL) Date Value 07/14/2024 0.3 08/27/2020 0.4 ALT (U/L) Date Value 07/14/2024 19 05/14/2021 33 AST (U/L) Date Value 07/14/2024 26 05/14/2021 26 CrCl cannot be calculated (Unknown ideal weight.). 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 (hcc) halfway (current) use of 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 Anticoagulation Episode Summary Current INR goal: 2.0-3.0 Assessment: INR result of 1.2is SUBtherapeutic due to: unknown cause - did not speak to patient Plan: Current Warfarin Dosing As of 12/08/2024 Full warfarin instructions: 12/08: 20 mg; Otherwise 10 mg every Mon, Diane; 7.5 mg all other days Left voice message Advised patient to take 20mg x1 today Call Coumadin Clinic at [phone] to discuss further dosing and f/u Milla Douglas RPh Clinical Pharmacist, Pharmacy Anticoagulation Clinic Pharmacy [facility] Pager: [phone]. Received fax from [facility] with INR results for patient. Patient tested on 12/07/2024 and the INR result was 1.2. Fax can be found under scanned documents as miscellaneous lab result. [facility] PT INR (no units) Date Value 12/07/2024 1.2 11/02/2024 1.8 10/05/2024 1.5 Bernardo Zamora, Chief Data Officer (spray gun striper) Pharmacy Anticoagulation Clinic documented in this encounter [facility] 12-09-2024 Telephone encounter Note Called pt and left another vmx, reminding of yesterday's dose and to continue regular weekly dose now. Advised pt to Call Coumadin Clinic at [phone] to discuss dosing further Milla Douglas PharmD [facility] 12-09-2024 Telephone encounter Note Refill pending for Cyclosporine. Samira Lyons December 09, 2024 3:14 PM [facility] 12-09-2024 Miscellaneous Notes Refill pending for Cyclosporine. Samira Lyons December 09, 2024 3:14 PM documented in this encounter [facility] 12-08-2024 Telephone encounter Note [facility] Ambulatory Pharmacy Anticoagulation Clinic Anticoagulation Episode Summary Anticoagulation Care Providers Provider Role Specialty Phone number Oneyda Recinos MD Referring Cardiology [phone] Chavo Tom is a 44 year old year old female patient being evaluated today for a Telemanagement visit. Patient is currently on the following anticoagulant(s) Warfarin. Labs PT INR (no units) Date Value 12/07/2024 1.2 11/02/2024 1.8 10/05/2024 1.5 Hemoglobin (g/dL) Date Value 07/14/2024 13.3 05/14/2021 14.4 Hematocrit (%) Date Value 07/14/2024 40.6 05/14/2021 44.4 Platelet Count (k/uL) Date Value 07/14/2024 383 05/14/2021 307 Creatinine (mg/dL) Date Value 07/14/2024 0.77 03/03/2024 0.69 03/02/2024 0.78 05/14/2021 0.83 03/19/2021 0.82 01/07/2021 0.65 Bilirubin, Total (mg/dL) Date Value 07/14/2024 0.3 08/27/2020 0.4 ALT (U/L) Date Value 07/14/2024 19 05/14/2021 33 AST (U/L) Date Value 07/14/2024 26 05/14/2021 26 CrCl cannot be calculated (Unknown ideal weight.). 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 (hcc) halfway (current) use of 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 Anticoagulation Episode Summary Current INR goal: 2.0-3.0 Assessment: INR result of 1.2is SUBtherapeutic due to: unknown cause - did not speak to patient Plan: Current Warfarin Dosing As of 12/08/2024 Full warfarin instructions: 12/08: 20 mg; Otherwise 10 mg every Mon, Diane; 7.5 mg all other days Left voice message Advised patient to take 20mg x1 today Call Coumadin Clinic at [phone] to discuss further dosing and f/u Milla Douglas logan Clinical Pharmacist, Pharmacy Anticoagulation Clinic Pharmacy Anticoagulation Clinic Pager: [phone]. [facility] 12-08-2024 Telephone encounter Note Received fax from INR with INR results for patient. Patient tested on 12/07/2024 and the INR result was 1.2. Fax can be found under scanned documents as miscellaneous lab result. It may take a few minutes to transfer from [employer]. PT INR (no units) Date Value 12/07/2024 1.2 11/02/2024 1.8 10/05/2024 1.5 Bernardo Zamora Chief Data Officer (spray gun striper) Pharmacy Anticoagulation Clinic [facility] 11-11-[address] Recinos, The Pharmacy Anticoagulation Clinic is in need of PAF that requires MD signature to update patient's home INR meter account with [facility]. The PAF can be found under the scanned documents tab in the patient's chart dated 11/04/2024. The PAF may be printed from there and once signed can be faxed back to the Pharmacy Anticoagulation Clinic at [phone]. Please let me know if you have any questions. Thank you, Bernardo Zamora Chief Data Officer (spray gun striper) Pharmacy Anticoagulation Clinic [facility] 11-11-[address] Recinos, The Pharmacy Anticoagulation Clinic is in need of PAF that requires MD signature to update patient's home INR meter account with [facility]. The PAF can be found under the scanned documents tab in the patient's chart dated 11/04/2024. The PAF may be printed from there and once signed can be faxed back to the Pharmacy Anticoagulation Clinic at [phone]. Please let me know if you have any questions. Thank you, Bernardo Zamora, Chief Data Officer (spray gun striper) Pharmacy Anticoagulation Clinic Dr. Recinos, The Pharmacy Anticoagulation Clinic is in need of PAF that requires MD signature to update patient's home INR meter account with [facility]. The PAF can be found under the scanned documents tab in the patient's chart dated today. The PAF may be printed from there and once signed can be faxed back to the Pharmacy Anticoagulation Clinic at [phone]. Please let me know if you have any questions. Thank you, Bernardo Zamora Chief Data Officer (spray gun striper) Pharmacy Anticoagulation Clinic documented in this encounter [facility] 11-04-[address] Recinos, The Pharmacy Anticoagulation Clinic is in need of PAF that requires MD signature to update patient's home INR meter account with [facility]. The PAF can be found under the scanned documents tab in the patient's chart dated today. The PAF may be printed from there and once signed can be faxed back to the Pharmacy Anticoagulation Clinic at [phone]. Please let me know if you have any questions. Thank you, Bernardo Zamora Chief Data Officer (spray gun striper) Pharmacy Anticoagulation Clinic [facility] 11-03-2024 Telephone encounter Note [facility] Ambulatory Pharmacy Anticoagulation Clinic Anticoagulation Episode Summary Anticoagulation Care Providers Provider Role Specialty Phone number Oneyda Recinos MD Referring Cardiology [phone] Chavo Tom is a 44 year old year old female patient being evaluated today for a Telemanagement visit. Patient is currently on the following anticoagulant(s) Warfarin. Labs PT INR (no units) Date Value 11/02/2024 1.8 10/05/2024 1.5 09/14/2024 1.2 Hemoglobin (g/dL) Date Value 07/14/2024 13.3 05/14/2021 14.4 Hematocrit (%) Date Value 07/14/2024 40.6 05/14/2021 44.4 Platelet Count (k/uL) Date Value 07/14/2024 383 05/14/2021 307 Creatinine (mg/dL) Date Value 07/14/2024 0.77 03/03/2024 0.69 03/02/2024 0.78 05/14/2021 0.83 03/19/2021 0.82 01/07/2021 0.65 Bilirubin, Total (mg/dL) Date Value 07/14/2024 0.3 08/27/2020 0.4 ALT (U/L) Date Value 07/14/2024 19 05/14/2021 33 AST (U/L) Date Value 07/14/2024 26 05/14/2021 26 Estimated Creatinine Clearance: 94.1 mL/min (based on SCr of 0.77 mg/dL). 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 (hcc) halfway (current) use of 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 Anticoagulation Episode Summary Current INR goal: 2.0-3.0 Assessment: INR result of 1.8 is SUBtherapeutic due to: unknown cause - did not speak to patient Plan: Current Warfarin Dosing As of 11/03/2024 Full warfarin instructions: 11/03: 12.5 mg; Otherwise 10 mg every Mon, Diane; 7.5 mg all other days Left voice message Advised patient to increase dose for 1 day only then resume weekly regimen Next home INR check scheduled on 11/17/2024 Advised pt to Call Coumadin Clinic at [phone] to confirm dosing and schedule follow-up Patient advised to call the PAC with any medication changes, bleeding/bruising concerns, recent changes in vitamin k consumption, if any procedures are coming up, if they have been ill or in the hospital, and if they have missed any doses of warfarin. Milla Douglas RPh Clinical Pharmacist, Pharmacy Anticoagulation Clinic Pharmacy Anticoagulation Clinic Pager: [phone]. [facility] 11-03-2024 Miscellaneous Notes [facility] Ambulatory Pharmacy Anticoagulation Clinic Anticoagulation Episode Summary Anticoagulation Care Providers Provider Role Specialty Phone number Oneyda Recinos MD Referring Cardiology [phone] Chavo Tom is a 44 year old year old female patient being evaluated today for a Telemanagement visit. Patient is currently on the following anticoagulant(s) Warfarin. Labs PT INR (no units) Date Value 11/02/2024 1.8 10/05/2024 1.5 09/14/2024 1.2 Hemoglobin (g/dL) Date Value 07/14/2024 13.3 05/14/2021 14.4 Hematocrit (%) Date Value 07/14/2024 40.6 05/14/2021 44.4 Platelet Count (k/uL) Date Value 07/14/2024 383 05/14/2021 307 Creatinine (mg/dL) Date Value 07/14/2024 0.77 03/03/2024 0.69 03/02/2024 0.78 05/14/2021 0.83 03/19/2021 0.82 01/07/2021 0.65 Bilirubin, Total (mg/dL) Date Value 07/14/2024 0.3 08/27/2020 0.4 ALT (U/L) Date Value 07/14/2024 19 05/14/2021 33 AST (U/L) Date Value 07/14/2024 26 05/14/2021 26 Estimated Creatinine Clearance: 94.1 mL/min (based on SCr of 0.77 mg/dL). 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 (hcc) 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 Anticoagulation Episode Summary Current INR goal: 2.0-3.0 Assessment: INR result of 1.8 is SUBtherapeutic due to: unknown cause - did not speak to patient Plan: Current Warfarin Dosing As of 11/03/2024 Full warfarin instructions: 11/03: 12.5 mg; Otherwise 10 mg every Mon, Diane; 7.5 mg all other days Left voice message Advised patient to increase dose for 1 day only then resume weekly regimen Next home INR check scheduled on 11/17/2024 Advised pt to Call Coumadin Clinic at [phone] to confirm dosing and schedule follow-up Patient advised to call the PAC with any medication changes, bleeding/bruising concerns, recent changes in vitamin k consumption, if any procedures are coming up, if they have been ill or in the hospital, and if they have missed any doses of warfarin. Milla Douglas [facility] Clinical Pharmacist, Pharmacy Anticoagulation Clinic Pharmacy Anticoagulation Clinic Pager: [phone]. PAC received faxed outside lab/home meter result for patient via [facility] from Date: 11/02 . Results have been scanned into patient's chart and are located under 'Scanned Documents'. Please note, may take up to 10 minutes for document to transfer from [facility]. PT INR (no units) Date Value 11/02/2024 1.8 10/05/2024 1.5 09/14/2024 1.2 [facility] documented in this encounter [facility] 11-03-2024 Telephone encounter Note PAC received faxed outside lab/home meter result for patient via [facility] from Date: 11/02 . Results have been scanned into patient's chart and are located under 'Scanned Documents'. Please note, may take up to 10 minutes for document to transfer from [facility]. PT INR (no units) Date Value 11/02/2024 1.8 10/05/2024 1.5 09/14/2024 1.2 [facility] 11-03-2024 History of Present illness Narrative Radiology Service Progress Note PATIENT NAME: Chavo Tom DATE OF SERVICE: November 03, 2024 TIME: 8:25 AM PATIENT IDENTITY VERIFICATION COMPLETED USING TWO (2) IDENTIFIERS: Name and Date of confirmed by patient verbally. FALL SCREENING: Has the patient had 2 falls in the last year or 1 fall with injury or currently using an Ambulatory Assistive Device (Walker, Cane, Wheelchair, Crutches, etc.)? No PATIENT GENDER DATA: Assigned female at . status: : No status: NO. PATIENT RELEVANT IMPLANT DATA REVIEWED: Not Applicable PATIENT PRESENTS WITH AN IMPLANTABLE OR ATTACHED ONCOLOGY REP SPECIALIST: No RADIOLOGY DEPARTMENT: Mammography PERIPHERAL IV DATA: Not applicable SIGNED BY: Mak Boyd November 03, 2024 8:25 AM documented in this encounter [facility] 11-03-2024 Note HNO ID: [id number] Author: ELISE MIR Mammo Tech Service: ? Author Type: Double End [employer]er Type: Progress Notes Filed: 11/03/2024 08:25 Note Text: Radiology Service Progress Note PATIENT NAME: Chavo Tom DATE OF SERVICE: November 03, 2024 TIME: 8:25 AM PATIENT IDENTITY VERIFICATION COMPLETED USING TWO (2) IDENTIFIERS: Name and Date of confirmed by patient verbally. FALL SCREENING: Has the patient had 2 falls in the last year or 1 fall with injury or currently using an Ambulatory Assistive Device (Walker, Cane, Wheelchair, Crutches, etc.)? No PATIENT GENDER DATA: Assigned female at . status: : No status: NO. PATIENT RELEVANT IMPLANT DATA REVIEWED: Not Applicable PATIENT PRESENTS WITH AN IMPLANTABLE OR ATTACHED ONCOLOGY REP SPECIALIST: No RADIOLOGY DEPARTMENT: Mammography PERIPHERAL IV DATA: Not applicable SIGNED BY: Mak Boyd November 03, 2024 8:25 AM [facility] 10-24-2024 Telephone encounter Note PAC received an updated referral for the patient. PT INR (no units) Date Value 10/05/2024 1.5 09/14/2024 1.2 07/28/2024 2.1 Updated anticoag navigator. Bozena Calloway RN Pharmacy Anticoagulation Clinic [facility] 10-24-2024 Miscellaneous Notes PAC received an updated referral for the patient. PT INR (no units) Date Value 10/05/2024 1.5 09/14/2024 1.2 07/28/2024 2.1 Updated anticoag navigator. Bozena Calloway RN Pharmacy Anticoagulation Clinic Chavo Moody [id number] was originally referred to the Pharmacy Anticoagulation Clinic by Dr. Ortiz who is less involved in the patient s care. It appears that you are the [facility] provider who is most involved in the patient's care. Would you agree to serve as referring provider for our ongoing anticoagulation follow up? Please place a new referral to Anticoagulation/Coumadin Clinic Pharm if you are agreeable (order #[id number]). Diagnosis:Atrial Fibrillation INR Range: 2 to 3 Duration: Indefinite Please feel free to contact me with any questions or concerns. Thank you, Milla Douglas RPh documented in this encounter [facility] 10-13-2024 Telephone encounter Note Chavo Moody [id number] was originally referred to the Pharmacy Anticoagulation Clinic by Dr. Ortiz who is less involved in the patient s care. It appears that you are the [facility] provider who is most involved in the patient's care. Would you agree to serve as referring provider for our ongoing anticoagulation follow up? Please place a new referral to Anticoagulation/Coumadin Clinic Pharm if you are agreeable (order #[id number]). Diagnosis:Atrial Fibrillation INR Range: 2 to 3 Duration: Indefinite Please feel free to contact me with any questions or concerns. Thank you, Milla Douglas RPh [facility] 09-15-2024 Telephone encounter Note [facility] Ambulatory Pharmacy Anticoagulation Clinic Anticoagulation Episode Summary Anticoagulation Care Providers Provider Role Specialty Phone number Jayjay Ortiz MD Referring Cardiology [phone] Chavo Tom is a 44 year old year old female patient being evaluated today for a Telemanagement visit. Patient is currently on the following anticoagulant(s) Warfarin. Labs PT INR (no units) Date Value 09/14/2024 1.2 07/28/2024 2.1 07/20/2024 2.7 Hemoglobin (g/dL) Date Value 07/14/2024 13.3 05/14/2021 14.4 Hematocrit (%) Date Value 07/14/2024 40.6 05/14/2021 44.4 Platelet Count (k/uL) Date Value 07/14/2024 383 05/14/2021 307 Creatinine (mg/dL) Date Value 07/14/2024 0.77 03/03/2024 0.69 03/02/2024 0.78 05/14/2021 0.83 03/19/2021 0.82 01/07/2021 0.65 Bilirubin, Total (mg/dL) Date Value 07/14/2024 0.3 08/27/2020 0.4 ALT (U/L) Date Value 07/14/2024 19 05/14/2021 33 AST (U/L) Date Value 07/14/2024 26 05/14/2021 26 Estimated Creatinine Clearance: 94.1 mL/min (based on SCr of 0.77 mg/dL). 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 (hcc) 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 Anticoagulation Episode Summary Current INR goal: 2.0-3.0 Assessment: INR result of 1.2 is SUBtherapeutic due to: unknown cause - did not speak to patient Plan: Current Warfarin Dosing As of 09/14/2024 Full warfarin instructions: 09/14: 10 mg; 09/15: 12.5 mg; Otherwise 10 mg every Mon, Diane; 7.5 mg all other days Left voice message And sent Snaptript message Advised patient to increase dose for 2 days only then resume weekly regimen Next home INR check scheduled on 09/20/2024 Advised pt to Call Coumadin Clinic at [phone] to confirm dosing and follow-up Patient advised to call the PAC with any medication changes, bleeding/bruising concerns, recent changes in vitamin k consumption, if any procedures are coming up, if they have been ill or in the hospital, and if they have missed any doses of warfarin. Milla Douglas RPh Clinical Pharmacist, Pharmacy Anticoagulation Clinic Pharmacy Anticoagulation Clinic Pager: [phone]. [facility] 09-15-2024 Miscellaneous Notes [facility] Ambulatory Pharmacy Anticoagulation Clinic Anticoagulation Episode Summary Anticoagulation Care Providers Provider Role Specialty Phone number Jayjay Ortiz MD Referring Cardiology [phone] Chavo Tom is a 44 year old year old female patient being evaluated today for a Telemanagement visit. Patient is currently on the following anticoagulant(s) Warfarin. Labs PT INR (no units) Date Value 09/14/2024 1.2 07/28/2024 2.1 07/20/2024 2.7 Hemoglobin (g/dL) Date Value 07/14/2024 13.3 05/14/2021 14.4 Hematocrit (%) Date Value 07/14/2024 40.6 05/14/2021 44.4 Platelet Count (k/uL) Date Value 07/14/2024 383 05/14/2021 307 Creatinine (mg/dL) Date Value 07/14/2024 0.77 03/03/2024 0.69 03/02/2024 0.78 05/14/2021 0.83 03/19/2021 0.82 01/07/2021 0.65 Bilirubin, Total (mg/dL) Date Value 07/14/2024 0.3 08/27/2020 0.4 ALT (U/L) Date Value 07/14/2024 19 05/14/2021 33 AST (U/L) Date Value 07/14/2024 26 05/14/2021 26 Estimated Creatinine Clearance: 94.1 mL/min (based on SCr of 0.77 mg/dL). 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 (hcc) halfway (current) use of 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 Anticoagulation Episode Summary Current INR goal: 2.0-3.0 Assessment: INR result of 1.2 is SUBtherapeutic due to: unknown cause - did not speak to patient Plan: Current Warfarin Dosing As of 09/14/2024 Full warfarin instructions: 09/14: 10 mg; 09/15: 12.5 mg; Otherwise 10 mg every Mon, Diane; 7.5 mg all other days Left voice message And sent Snaptript message Advised patient to increase dose for 2 days only then resume weekly regimen Next home INR check scheduled on 09/20/2024 Advised pt to Call Coumadin Clinic at [phone] to confirm dosing and follow-up Patient advised to call the PAC with any medication changes, bleeding/bruising concerns, recent changes in vitamin k consumption, if any procedures are coming up, if they have been ill or in the hospital, and if they have missed any doses of warfarin. Milla Douglas RPh Clinical Pharmacist, Pharmacy Anticoagulation Clinic Pharmacy Anticoagulation Clinic Pager: [phone]. [facility] Ambulatory Pharmacy Anticoagulation Clinic Anticoagulation Episode Summary Anticoagulation Care Providers Provider Role Specialty Phone number Jayjay Ortiz MD Referring Cardiology [phone] Chavo Tom is a 44 year old year old female patient being evaluated today for a Telemanagement visit. Patient is currently on the following anticoagulant(s) Warfarin. Labs PT INR (no units) Date Value 09/14/2024 1.2 07/28/2024 2.1 07/20/2024 2.7 Hemoglobin (g/dL) Date Value 07/14/2024 13.3 05/14/2021 14.4 Hematocrit (%) Date Value 07/14/2024 40.6 05/14/2021 44.4 Platelet Count (k/uL) Date Value 07/14/2024 383 05/14/2021 307 Creatinine (mg/dL) Date Value 07/14/2024 0.77 03/03/2024 0.69 03/02/2024 0.78 05/14/2021 0.83 03/19/2021 0.82 01/07/2021 0.65 Bilirubin, Total (mg/dL) Date Value 07/14/2024 0.3 08/27/2020 0.4 ALT (U/L) Date Value 07/14/2024 19 05/14/2021 33 AST (U/L) Date Value 07/14/2024 26 05/14/2021 26 Estimated Creatinine Clearance: 94.1 mL/min (based on SCr of 0.77 mg/dL). 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 (hcc) 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 Anticoagulation Episode Summary Current INR goal: 2.0-3.0 Assessment: INR result of 1.2 is SUBtherapeutic due to: unknown cause - did not speak to patient Plan: Current Warfarin Dosing As of 09/14/2024 Full warfarin instructions: 09/14: 10 mg; Otherwise 10 mg every Mon, Diane; 7.5 mg all other days Left voice message Advised patient to take 10mg today and Call Coumadin Clinic at [phone] [facility] to discuss recent dosing of warfarin, what may have caused INR result, etc Will f/u again tomorrow Milla Douglas RPh Clinical Pharmacist, Pharmacy Anticoagulation Clinic Pharmacy Anticoagulation Clinic Pager: [phone]. Received fax from [facility] with INR results for patient. Patient tested on 09/14/2024 and the INR result was 1.2. Fax can be found under scanned documents as miscellaneous lab result. It [facility] take a [facility]. PT INR (no units) Date Value 09/14/2024 1.2 07/28/2024 2.1 07/20/2024 2.7 Patient removed from discharge list. Bernardo Zamora, Chief Data Officer (spray gun striper) Pharmacy Anticoagulation Clinic Paged by INR 09/14 at 7am. Pt's INR was 1.2 at 6:02am today. documented in this encounter [facility] 09-14-2024 Telephone encounter Note [facility] Anticoagulation Clinic Anticoagulation Episode Summary Anticoagulation Care Providers Provider Role Specialty Phone number Jayjay Ortiz MD Referring Cardiology [phone] Chavo Tom is a 44 year old year old female patient being evaluated today for a Telemanagement visit. Patient is currently on the following anticoagulant(s) Warfarin. Labs PT INR (no units) Date Value 09/14/2024 1.2 07/28/2024 2.1 07/20/2024 2.7 Hemoglobin (g/dL) Date Value 07/14/2024 13.3 05/14/2021 14.4 Hematocrit (%) Date Value 07/14/2024 40.6 05/14/2021 44.4 Platelet Count (k/uL) Date Value 07/14/2024 383 05/14/2021 307 Creatinine (mg/dL) Date Value 07/14/2024 0.77 03/03/2024 0.69 03/02/2024 0.78 05/14/2021 0.83 03/19/2021 0.82 01/07/2021 0.65 Bilirubin, Total (mg/dL) Date Value 07/14/2024 0.3 08/27/2020 0.4 ALT (U/L) Date Value 07/14/2024 19 05/14/2021 33 AST (U/L) Date Value 07/14/2024 26 05/14/2021 26 Estimated Creatinine Clearance: 94.1 mL/min (based on SCr of 0.77 mg/dL). 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 (hcc) halfway (current) use of 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 Anticoagulation Episode Summary Current INR goal: 2.0-3.0 Assessment: INR result of 1.2 is SUBtherapeutic due to: unknown cause - did not speak to patient Plan: Current Warfarin Dosing As of 09/14/2024 Full warfarin instructions: 09/14: 10 mg; Otherwise 10 mg every Mon, Diane; 7.5 mg all other days Left voice message Advised patient to take 10mg today and Call Coumadin Clinic at [phone] [facility] to discuss recent dosing of warfarin, what may have caused INR result, etc Will f/u again tomorrow Milla Douglas RPh Clinical Pharmacist, Pharmacy Anticoagulation Clinic Pharmacy Anticoagulation Clinic Pager: [phone]. [facility] 09-14-2024 Telephone encounter Note Received fax from [facility] with INR results for patient. Patient tested on 09/14/2024 and the INR result was 1.2. Fax can be found under scanned documents as miscellaneous lab result. It may take a few minutes to transfer from [facility]. PT INR (no units) Date Value 09/14/2024 1.2 07/28/2024 2.1 07/20/2024 2.7 Patient removed from discharge list. Bernardo Zamora, Chief Data Officer (spray gun striper) Pharmacy Anticoagulation Clinic [facility] 09-14-2024 Telephone encounter Note Paged by INR 09/14 at 7am. Pt's INR was 1.2 at 6:02am today. [facility] 09-07-2024 History of Present illness Narrative Images from the original note were not included. [facility] [place] [facility] Department of Cardiovascular Medicine SECTION OF CARDIAC PACING and ELECTROPHYSIOLOGY OUTPATIENT VISIT DATE September 07, 2024 OUTPATIENT VISIT TYPE Established CHIEF COMPLAINT: AF IMPRESSION/PLAN: Chavo Tom is a very pleasant female patient with a past medical history significant for hypertrophic cardiomyopathy with mid cavitary obstruction status post myectomy, mitral valve repair and reorientation of the papillary muscles, left bundle branch block, WPW status post ablation, and paroxysmal atrial fibrillation status post subcutaneous ICD. Hypertrophic cardiomyopathy: She is managed by Dr. Tay. Her subcutaneous ICD is functioning appropriately. Her last ejection fraction was 70% despite the left bundle branch block. Persistent atrial fibrillation: Doing well with infrequent recurrences on sotalol. Had a recurrence of AF when we attempted to wean sotalol. She is now controlled back on sotalol. CVA prophylaxis: She has a history of hypertrophic cardiomyopathy and is managed with warfarin (gastric bypass) sinus bradycardia: Asymp. Will continue to monitor with the current dose of sotalol. She knows to call if she develops symptoms. HPI: NURSING INTAKE HISTORY: Chavo Tom is a 44 y/o female who presents for follow up for device management s/p Sub-Q ICD change 05/16/2021. She was last seen on 12/28/23. 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 She underwent drug loading with Sotalol from 08/27/20 - 08/30/20 for recurrent atrial fibrillation. She underwent Jenny-en-y gastric bypass 02/2023. She reports she has been doing well. She reports she can have break through atrial fibrillation around once every 3-4 months. Last in 06/2023, she reports she was seen at [place] [facility] and self converted prior to any treatment. She denies chest pain, shortness of breath, lightheadedness or syncope. She notes that since she has had significant weight loss after surgery her Sub-Q ICD is more pronounced and her arm rubs against it more than it did before. She denies any pain at her device site. REVIEW OF SYSTEMS Negative in detail except as outlined in the HPI. PHYSICIAL EXAM: BP 107/62 Pulse (!) 45 Ht 172.7 cm (5' 8") Wt 69.9 kg (154 lb) LMP 01/06/2012 (Approximate) BMI 23.42 kg/m GEN: Awake, alert, no apparent distress HEAD: Normocephalic, atraumatic EYES: Anicteric sclera. Extraocular movements are intact. LUNGS: Non-labored breathing, normal chest wall movement HEART: Regular rhythm, bradycardic ABDOMEN: Non-distended EXTREMITIES: No cyanosis clubbing or edema. MUSCULOSKELETAL: No gross deformities. SKIN: No rashes DATA: (The following studies were reviewed personally) Normal In-Office: No Events SUB Q ICD IN OFFICE EVALUATION * Presents for: OPD with Dr. Recinos * Presenting ECG: Sinus bradycardia ~ 42 bpm. Sensing well in Primary configuration * Normal Device Function * Alerts or events: None since last remote. * Battery: Battery is at 63%, * Beeper tested and audible. Discussed alert with patient * Electrode impedance status reviewed and appropriate at 45 ohms * Device Parameters were evaluated * SMART Pass: ON Tachycardia: AF Previously documented on remotes * No new AF detections since 03/03/24. * There were 3 AF events in January and February. Patient is aware of when she is in AF. * Anticoagulation listed: Coumadin PAST MEDICAL HISTORY Diagnosis Date Atrial fibrillation (HCC) CHADS score 0 Cardiomyopathy (HCC) 02/24/14 Family history of hypertrophic cardiomyopathy 01/18/2014 Impaired glucose tolerance 01/21/2011 Left bundle branch block Obesity S/P gastric bypass 02/18/2023 Sleep apnea Thyroid nodule, cold 04/12/2018 10/15/2020 US 4mm right nodule: no f/u recommended 12/10/16 US right nodule smaller: Heterogeneous solid nodule mid pole 6 x 4 x 5 mm01/27/14 US:hypoechoic 9 x 5 x 6mm nodule anteriorly at the mid right lobe 03/14/[address] Gama Rubin: felt nodule smaller, did not recommend KE 02/09/14 NM uptake scan: hypo-functoning thyroid nodule right mid-lobe Ventricular tachyarrhythmia (HCC) 02/2014 Csetb-Hrqypeehw-Sgzdm (WPW) syndrome s/p ablaton 02/2014 and 08/2014 Current Outpatient Medications Medication Sig warfarin (COUMADIN) 5 mg tablet Take 1.5 tablets by mouth once daily. Equally 7.5 mg Daily cyanocobalamin (VITAMIN B-12) 1,000 mcg tab Take 1 tablet by mouth once daily. multivitamin tablet Take 1 tablet by mouth once daily. calcium carbonate (TUMS) 500 mg chew Take 1 tablet by mouth three times a day. metoprolol succinate ER (TOPROL XL) 25 mg 24 hr tablet Take 1.5 tablets by mouth once daily. doxycycline (VIBRA-TABS) 100 mg tablet TAKE 1/2 (ONE-HALF) OF A TABLET BY MOUTH TWICE DAILY cycloSPORINE (RESTASIS) 0.05 % ophthalmic emulsion Use 1 Drop in both eyes two times a day. sotalol (BETAPACE) 120 mg tablet Take 1 tablet by mouth two times a day. cholecalciferol, vitamin D3, (VITAMIN D3 ORAL) Take by mouth. tacrolimus (PROTOPIC) 0.03 % ointment Apply to affected area twice daily. No current facility-administered medications for this visit. ALLERGIES: ALLERGIES Allergen Reactions Metformin Diarrhea Nsaids (Non-Steroid* Contraindication-Medical Surgical S/p gastric bypass, relative contraindication to NSAIDs Social History Tobacco Use Smoking status: Never Smokeless tobacco: Never Vaping Use Vaping status: Never Used Substance Use Topics Alcohol use: No Drug use: No FAMILY HISTORY Problem Relation Age of Onset Lipids Father Diabetes Mother Hypertension Mother Thyroid Mother Coronary Artery Disease Mother CABG 2013 Diabetes Brother Heart Sister HOCM s/p ICD None Maternal Grandfather age 46-"suddenly" Heart Maternal Grandmother OR age 72 Alcohol/Drug Paternal Grandfather ETOH Diabetes Maternal Aunt Diabetes Maternal Uncle Colon Cancer No Family History Anesthesia Problems No Family History I reviewed old records, obtained relevant HPI and PMH from the pt, examined the patient and created the above report. This note was created using computerized museum educator software and may therefore include some museum educator errors including errors in gender and inappropriate words or phrases. I reviewed old records, obtained relevant HPI and PMH from the pt, examined the patient and created the above report. Zohreh Briones RN September 07, 2024 Note to: Primary Care Physician: Edd Palma documented in this encounter [facility] 09-07-2024 Note HNO ID: [id number] Author: ONEYDA RECINOS MD Service: ? Author Type: Physician Type: Progress Notes Filed: 09/12/2024 17:19 Note Text: [facility] [place] [facility] Department of Cardiovascular Medicine SECTION OF CARDIAC PACING and ELECTROPHYSIOLOGY OUTPATIENT VISIT DATE September 07, 2024 OUTPATIENT VISIT TYPE Established CHIEF COMPLAINT: AF IMPRESSION/PLAN: Chavo Tom is a very pleasant female patient with a past medical history significant for hypertrophic cardiomyopathy with mid cavitary obstruction status post myectomy, mitral valve repair and reorientation of the papillary muscles, left bundle branch block, WPW status post ablation, and paroxysmal atrial fibrillation status post subcutaneous ICD. Hypertrophic cardiomyopathy: She is managed by Dr. Tay. Her subcutaneous ICD is functioning appropriately. Her last ejection fraction was 70% despite the left bundle branch block. Persistent atrial fibrillation: Doing well with infrequent recurrences on sotalol. Had a recurrence of AF when we attempted to wean sotalol. She is now controlled back on sotalol. CVA prophylaxis: She has a history of hypertrophic cardiomyopathy and is managed with warfarin (gastric bypass) sinus bradycardia: Asymp. Will continue to monitor with the current dose of sotalol. She knows to call if she develops symptoms. HPI: NURSING INTAKE HISTORY: Chavo Tom is a 44 y/o female who presents for follow up for device management s/p Sub-Q ICD change 05/16/2021. She was last seen on 12/28/23. 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 She underwent drug loading with Sotalol from 08/27/20 - 08/30/20 for recurrent atrial fibrillation. She underwent Jenny-en-y gastric bypass 02/2023. She reports she has been doing well. She reports she can have break through atrial fibrillation around once every 3-4 months. Last in 06/2023, she reports she was seen at [place] [facility] and self converted prior to any treatment. She denies chest pain, shortness of breath, lightheadedness or syncope. She notes that since she has had significant weight loss after surgery her Sub-Q ICD is more pronounced and her arm rubs against it more than it did before. She denies any pain at her device site. REVIEW OF SYSTEMS Negative in detail except as outlined in the HPI. PHYSICIAL EXAM: BP 107/62 Pulse (!) 45 Ht 172.7 cm (5' 8") Wt 69.9 kg (154 lb) LMP 01/06/2012 (Approximate) BMI 23.42 kg/m? GEN: Awake, alert, no apparent distress HEAD: Normocephalic, atraumatic EYES: Anicteric sclera. Extraocular movements are intact. LUNGS: Non-labored breathing, normal chest wall movement HEART: Regular rhythm, bradycardic ABDOMEN: Non-distended EXTREMITIES: No cyanosis clubbing or edema. MUSCULOSKELETAL: No gross deformities. SKIN: No rashes DATA: (The following studies were reviewed personally) Normal In-Office: No Events SUB Q ICD IN OFFICE EVALUATION * Presents for: OPD with Dr. Recinos * Presenting ECG: Sinus bradycardia ~ 42 bpm. Sensing well in Primary configuration * Normal Device Function * Alerts or events: None since last remote. * Battery: Battery is at 63%, * Beeper tested and audible. Discussed alert with patient * Electrode impedance status reviewed and appropriate at 45 ohms * Device Parameters were evaluated * SMART Pass: ON Tachycardia: AF Previously documented on remotes * No new AF detections since 03/03/24. * There were 3 AF events in January and February. Patient is aware of when she is in AF. * Anticoagulation listed: Coumadin PAST MEDICAL HISTORY Diagnosis Date Atrial fibrillation (HCC) CHADS score 0 Cardiomyopathy (HCC) 02/24/14 Family history of hypertrophic cardiomyopathy 01/18/2014 Impaired glucose tolerance 01/21/2011 Left bundle branch block Obesity S/P gastric bypass 02/18/2023 Sleep apnea Thyroid nodule, cold 04/12/2018 10/15/2020 US 4mm right nodule: no f/u recommended 12/10/16 US right nodule smaller: Heterogeneous solid nodule mid pole 6 x 4 x 5 mm01/27/14 US:hypoechoic 9 x 5 x 6mm nodule anteriorly at the mid right lobe 03/14/[address] Gama Rubin: felt nodule smaller, did not recommend KE 02/09/14 NM uptake scan: hypo-functoning thyroid nodule right mid-lobe Ventricular tachyarrhythmia (HCC) 02/2014 Aekrp-Hmgywjoqt-Xstdn (WPW) syndrome s/p ablaton 02/2014 and 08/2014 Current Outpatient Medications Medication Sig warfarin (COUMADIN) 5 mg tablet Take 1.5 tablets by mouth once daily. Equally 7.5 mg Daily cyanocobalamin (VITAMIN B-12) 1,000 mcg tab Take 1 tablet by mouth once daily. multivitamin tablet Take 1 tablet by mouth once daily. calcium carbonate (TUMS) 500 mg chew (more content not included)... [facility] 08-25-2024 Instructions Alec Blair APRN.REGISTERED DIET TECHNICIAN - 08/25/2024 7:58 AM EST Images from the original note were not included. *Revaree is a [facility] recommended, leading selling vaginal insert for the relief of symptoms of vaginal atrophy and the jainism of the vagina's epithelial lining and pH -- hormone free. In [id number] clinical trials, Revaree performed as well as estrogen creams in reducing symptoms of vaginal atrophy (dryness, itching, painful intercourse, and burning). The Revaree insert is convenient and not messy and should be used 2 to 3 times a week. Revaree is professionally recommended, easily ordered by the patient, costs about $40 per month, and shipped directly to the patient's home. Revaree is a perfect choice for women who need relief and either cannot or do not want to use hormonal therapy for their vaginal atrophy symptoms. *Clairvee is the only oral probiotic that has been proven to target the vagina's microbiome, restoring lactobacilli, and thus reducing the recurrence of BV and yeast. Rigorous clinical trials show that Clairvee significantly reduces these annoying recurrences while balancing the vagina's microbiome and pH. Clairvee should be taken orally each day for 15 days of the month; 15 days off; then resumed for 15 days and so forth. Clairvee begins to balance the microbiome in as little as 15 days with best results at 6 months. Clairvee is professionally recommended, easily ordered by the patient, costs about $35 per month, and directly shipped to the patient's home. Clairvee is a great option for patients who struggle with recurring BV and yeast who have had no other prevention strategies in the past. It is also a great choice for women who have GSM symptoms of odor, itching, and discharge with an intermediate ana score, but have not had any other means to eliminate the embarrassing symptoms. *Relizen is a clinically validated, hormone free, safe, and effective therapy that significantly reduces the intensity and frequency of hot flashes. Relizen works by expressing a mild seratenurgic effect on the hypothalamus. Relizen is professionally recommended, easily ordered by the patient, costs $35 per month, and directly shipped to the patient's home. Relizen is a great choice for women who struggle with hot flashes and either cannot or do not want to use hormone therapy. A 3-dose schedule is recommended for people who get the first dose on or after their 15th birthday, and for people with certain immunocompromising conditions. In a 3-dose series, the second dose should be given 1-2 months after the first dose, and the third dose should be given 6 months after the first dose (0, 1-2, 6-month schedule). The minimum intervals are 4 weeks between the first and second dose, 12 weeks between the second and third doses, and 5 months between the first and third doses. If a vaccine dose is administered after a shorter interval, it should be re-administered after another minimum interval has elapsed since the most recent dose. If the vaccination schedule is interrupted, vaccine doses do not need to be repeated (no maximum interval). documented in this encounter [facility] 08-25-2024 Note HNO ID: [id number] Author: ALEC BLAIR APRN.CNP Service: ? Author Type: Nurse Practitioner Type: Progress Notes Filed: 08/25/2024 08:10 Note Text: Chavo is a 44 year old who presents for an annual gynecologic exam without complaints. Experiencing some decreased libido. Menses: spotting- Mirena IUD. Contraception: IUD 2017 HPV vaccine: No Last Pap: 01/27/2017 normal HPV: 01/22/2017 negative History of abnormal pap: Yes Last mammogram: 2022 abnormal, dx benign Sexually active: Yes History of STDS: None Patient concerns for STD exposure: No. Pain with intercourse: No Postcoital bleeding: No Night Sweats: 1x per night Hot Flashes: No Exercise: going to gym 3x per week OB History T1 L1 SAB0 IAB0 Ectopic0 Multiple0 Live Births1 Scan Coordinator History LMP: 01/06/2012 (Approximate), IUD Age at Menarche: Age at First : Age at Menopause: Scan Coordinator History Comments: Sexual Activity: Yes; Male; Mirena Contraception: I.U.D. PAST MEDICAL HISTORY Diagnosis Date Atrial fibrillation (HCC) CHADS score 0 Cardiomyopathy (HCC) 02/24/14 Family history of hypertrophic cardiomyopathy 01/18/2014 Impaired glucose tolerance 01/21/2011 Left bundle branch block Obesity S/P gastric bypass 02/18/2023 Sleep apnea Thyroid nodule, cold 04/12/2018 10/15/2020 US 4mm right nodule: no f/u recommended 12/10/16 US right nodule smaller: Heterogeneous solid nodule mid pole 6 x 4 x 5 mm01/27/14 US:hypoechoic 9 x 5 x 6mm nodule anteriorly at the mid right lobe 03/14/[address] Gama Rubin: felt nodule smaller, did not recommend KE 02/09/14 NM uptake scan: hypo-functoning thyroid nodule right mid-lobe Ventricular tachyarrhythmia (HCC) 02/2014 Syxnu-Pswkekygw-Kptme (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 Cardioverted with 150j under sedation DEFIBRILLATOR SURGERY 02/24/2014 ICD, redo WPW AND atrial fib ablation EPS: DEFIB. SURGERY 05/16/2021 Exchange of a No Paper Just Vapor SCIENTIFIC SQ-RX 1010 pulse generator with a [facility] SURG ANT SGMT PROC UNLISTED Right 05/03/2024 Dr. Stephany HERNÁNDEZ GASTRIC BYPASS/JENNY-EN-Y 02/18/2023 150cmantecolic jenny, 70cm bp limb LAPAROSCOPIC CHOLECYSTECTOMY 05/20/2023 PAST SURGICAL HISTORY OF 07/06/2014 WPW ablation PAST SURGICAL HISTORY OF 11/21/2019 MVr, myectomy, PVI, LAAC TYMPANOSTOMY LOCAL/TOPICAL ANESTHESIA Right FAMILY HISTORY Problem Relation Age of Onset Lipids Father Diabetes Mother Hypertension Mother Thyroid Mother Coronary Artery Disease Mother CABG 2012 Diabetes Brother Heart Sister HOCM s/p ICD None Maternal Grandfather age 46-"suddenly" Heart Maternal Grandmother OR age 72 Alcohol/Drug Paternal Grandfather ETOH Diabetes Maternal Aunt Diabetes Maternal Uncle Colon Cancer No Family History Anesthesia Problems No Family History SOCIAL HISTORY Social History Tobacco Use Smoking status: Never Smokeless tobacco: Never Vaping Use Vaping status: Never Used Substance Use Topics Alcohol use: No Drug use: No REVIEW OF SYSTEMS Abdomen: No abdominal pain, nausea, vomiting, diarrhea, or constipation. No bloating, early satiety, indigestion, or increased flatulence. Bladder: No dysuria, gross hematuria, urinary frequency, urinary urgency, or incontinence. Breast: No breast lumps, nipple d/c, overlying skin changes, redness or skin retraction. Allergies and current medication updated:Yes SENSITIVE EXAM: The sensitive examination was discussed with the Patient or Patient's Authorized Boil Off Machine Operator Cloth. As applicable, any other physician, advance practice provider, medical student, or other health professional student that will be observing or involved in the sensitive examination for educational or training purposes was discussed with the Patient or Authorized Boil Off Machine Operator Cloth. The Patient or Authorized Boil Off Machine Operator Cloth has agreed to proceed with the sensitive examination. (Sensitive examination includes inspection and/or palpation of the breasts, pelvis, prostate and anorectal regions). EXAM: BP 110/64 Ht 5' 9" (1.75m) Wt 155 lb (70.3kg) LMP 01/06/2012 BMI 22.88 kg/(m2). GENERAL: pleasant, female in no apparent distress HEENT: Normocephalic, atraumatic, mucus membranes moist, and no lesions NECK: Supple, full range of motion, no adenopathy, and thyroid normal DERMATOLOGY: Normal, without lesions, non-icteric, and non-hirsute BREAST: soft, non-tender, symmetric, no dominant mass, normal nipple-areolar complex, no lymphadenopathy, and no nipple discharge + surgical scar noted to chest CHEST: Normal inspiratory effort ABDOMEN: soft, non-tender, and no masses PELVIC: external genitalia normal, normal Bartholin's glands, urethra, Hoback's glands, no vulvar lesions, no cervical lesions, good vaginal support, physiologic discharge present, normal appearin (more content not included)... [facility] 08-25-2024 History of Present illness Narrative Chavo is a 44 year old who presents for an annual gynecologic exam without complaints. Experiencing some decreased libido. Menses: spotting- Mirena IUD. Contraception: IUD 2016 HPV vaccine: No Last Pap: 01/27/2017 normal HPV: 01/22/2017 negative History of abnormal pap: Yes Last mammogram: 2022 abnormal, dx benign Sexually active: Yes History of STDS: None Patient concerns for STD exposure: No. Pain with intercourse: No Postcoital bleeding: No Night Sweats: 1x per night Hot Flashes: No Exercise: going to gym 3x per week OB History T1 L1 SAB0 IAB0 Ectopic0 Multiple0 Live Births1 Scan Coordinator History LMP: 01/06/2012 (Approximate), IUD Age at Menarche: Age at First : Age at Menopause: Scan Coordinator History Comments: Sexual Activity: Yes; Male; Mirena Contraception: I.U.D. PAST MEDICAL HISTORY Diagnosis Date Atrial fibrillation (HCC) CHADS score 0 Cardiomyopathy (HCC) 02/24/14 Family history of hypertrophic cardiomyopathy 01/18/2014 Impaired glucose tolerance 01/21/2011 Left bundle branch block Obesity S/P gastric bypass 02/18/2023 Sleep apnea Thyroid nodule, cold 04/12/2018 10/15/2020 US 4mm right nodule: no f/u recommended 12/10/16 US right nodule smaller: Heterogeneous solid nodule mid pole 6 x 4 x 5 mm01/27/14 US:hypoechoic 9 x 5 x 6mm nodule anteriorly at the mid right lobe 03/14/[address] Gama Rubin: felt nodule smaller, did not recommend KE 02/09/14 NM uptake scan: hypo-functoning thyroid nodule right mid-lobe Ventricular tachyarrhythmia (HCC) 02/2014 Ebrbh-Vcoyzkogc-Eppzv (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 Cardioverted with 150j under sedation DEFIBRILLATOR SURGERY 02/24/2014 ICD, redo WPW & atrial fib ablation EPS: DEFIB. SURGERY 05/16/2021 Exchange of a SamEnrico SQ-RX 1010 pulse generator with a [facility] SURG ANT SGMT PROC UNLISTED Right 05/03/2024 Dr. Parker LAP GASTRIC BYPASS/JENNY-EN-Y 02/18/2023 150cmantecolic jenny, 70cm bp limb LAPAROSCOPIC CHOLECYSTECTOMY 05/20/2023 PAST SURGICAL HISTORY OF 07/06/2014 WPW ablation PAST SURGICAL HISTORY OF 11/21/2019 MVr, myectomy, PVI, LAAC TYMPANOSTOMY LOCAL/TOPICAL ANESTHESIA Right FAMILY HISTORY Problem Relation Age of Onset Lipids Father Diabetes Mother Hypertension Mother Thyroid Mother Coronary Artery Disease Mother CABG 2012 Diabetes Brother Heart Sister HOCM s/p ICD None Maternal Grandfather age 46-"suddenly" Heart Maternal Grandmother OR age 72 Alcohol/Drug Paternal Grandfather ETOH Diabetes Maternal Aunt Diabetes Maternal Uncle Colon Cancer No Family History Anesthesia Problems No Family History SOCIAL HISTORY Social History Tobacco Use Smoking status: Never Smokeless tobacco: Never Vaping Use Vaping status: Never Used Substance Use Topics Alcohol use: No Drug use: No REVIEW OF SYSTEMS Abdomen: No abdominal pain, nausea, vomiting, diarrhea, or constipation. No bloating, early satiety, indigestion, or increased flatulence. Bladder: No dysuria, gross hematuria, urinary frequency, urinary urgency, or incontinence. Breast: No breast lumps, nipple d/c, overlying skin changes, redness or skin retraction. Allergies and current medication updated:Yes SENSITIVE EXAM: The sensitive examination was discussed with the Patient or Patient's Authorized Boil Off Machine Operator Cloth. As applicable, any other physician, advance practice provider, medical student, or other health professional student that will be observing or involved in the sensitive examination for educational or training purposes was discussed with the Patient or Authorized Boil Off Machine Operator Cloth. The Patient or Authorized Boil Off Machine Operator Cloth has agreed to proceed with the sensitive examination. (Sensitive examination includes inspection and/or palpation of the breasts, pelvis, prostate and anorectal regions). EXAM: BP 110/64 Ht 5' 9" (1.75m) Wt 155 lb (70.3kg) LMP 01/06/2012 BMI 22.88 kg/(m^2). GENERAL: pleasant, female in no apparent distress HEENT: Normocephalic, atraumatic, mucus membranes moist, and no lesions NECK: Supple, full range of motion, no adenopathy, and thyroid normal DERMATOLOGY: Normal, without lesions, non-icteric, and non-hirsute BREAST: soft, non-tender, symmetric, no dominant mass, normal nipple-areolar complex, no lymphadenopathy, and no nipple discharge + surgical scar noted to chest CHEST: Normal inspiratory effort ABDOMEN: soft, non-tender, and no masses PELVIC: external genitalia normal, normal Bartholin's glands, urethra, Hoback's glands, no vulvar lesions, no cervical lesions, good vaginal support, physiologic discharge present, normal appearing perineal body and perianal region, IUD strings visible BIMANUAL: uterus normal size, shape and consistency, no adnexal masses, and non-tender RECTOVAGINAL: deferred. NEURO: alert and oriented x3,exam grossly non-focal EXTREMITIES: normal ASSESSMENT/PLAN: 1) Health maintenance: Pap done with HPV. Mammogram ordered. Nutrition, exercise and routine health maintenance exams reviewed. Calcium/Vitamin D supplementation information provided. Lipids/glucose: followed by PCP HPV vaccine: interested, literature given 2) Contraception: IUD. Expiring 2024. To replace. 3) STD screening: Declined STD check. 4) Follow up one year or sooner as needed Decreased libido - ICD9: 799.81, ICD10: R68.82 - Discussed physical and psychological factors that can affect libido - Recent gastric bypass surgery, major body changes - Possible perimenopause - Discussed sex counseling - to notify if she wants to proceed and consult will be placed Alec Blair APRN.CNP documented in this encounter [facility] 07-29-2024 Telephone encounter Note The following approved medication requests have been transmitted electronically. Requested Prescriptions Pending Prescriptions Disp Refills warfarin (COUMADIN) 5 mg tablet 45 tablet 5 Sig: Take 1.5 tablets by mouth once daily. Equally 7.5 mg Daily Yissel Atkinson APRN.CNP [facility] 07-29-2024 Miscellaneous Notes The following approved medication requests have been transmitted electronically. Requested Prescriptions Pending Prescriptions Disp Refills warfarin (COUMADIN) 5 mg tablet 45 tablet 5 Sig: Take 1.5 tablets by mouth once daily. Equally 7.5 mg Daily Yissel Atkinson APRN.CNP Prescription Refill Information The patient has been identified by name and date of : Yes Caregiver verified no other encounters exist for this prescription request: Yes Caregiver confirmed with patient/requestor that no other refills are due, in the near future, with this provider at this time: Yes The last office visit in the department: 07/14/24 Does the patient have a future office visit with this provider/department: Yes 01/12/25 Requested Prescriptions Pending Prescriptions Disp Refills warfarin (COUMADIN) 5 mg tablet 45 tablet 5 Sig: Take 1.5 tablets by mouth once daily. Equally 7.5 mg Daily Vianey French LPN July 29, 2024 10:58 AM documented in this encounter [facility] 07-29-2024 Telephone encounter Note Prescription Refill Information The patient has been identified by name and date of : Yes Caregiver verified no other encounters exist for this prescription request: Yes Caregiver confirmed with patient/requestor that no other refills are due, in the near future, with this provider at this time: Yes The last office visit in the department: 07/14/24 Does the patient have a future office visit with this provider/department: Yes 01/12/25 Requested Prescriptions Pending Prescriptions Disp Refills warfarin (COUMADIN) 5 mg tablet 45 tablet 5 Sig: Take 1.5 tablets by mouth once daily. Equally 7.5 mg Daily Vianey French LPN July 29, 2024 10:58 AM [facility] 07-28-2024 Telephone encounter Note [facility] Anticoagulation Episode Summary Anticoagulation Care Providers Provider Role Specialty Phone number Jayjay Ortiz MD Referring Cardiology [phone] Chavo Tom is a 44 year old year old female patient being evaluated today for a Telemanagement visit. Patient is currently on the following anticoagulant(s) Warfarin. Labs PT INR (no units) Date Value 07/28/2024 2.1 07/20/2024 2.7 07/13/2024 3.5 Hemoglobin (g/dL) Date Value 07/14/2024 13.3 05/14/2021 14.4 Hematocrit (%) Date Value 07/14/2024 40.6 05/14/2021 44.4 Platelet Count (k/uL) Date Value 07/14/2024 383 05/14/2021 307 Creatinine (mg/dL) Date Value 07/14/2024 0.77 03/03/2024 0.69 03/02/2024 0.78 05/14/2021 0.83 03/19/2021 0.82 01/07/2021 0.65 Bilirubin, Total (mg/dL) Date Value 07/14/2024 0.3 08/27/2020 0.4 ALT (U/L) Date Value 07/14/2024 19 05/14/2021 33 AST (U/L) Date Value 07/14/2024 26 05/14/2021 26 Estimated Creatinine Clearance: 94.5 mL/min (based on SCr of 0.77 mg/dL). ALLERGIES Allergen Reactions Metformin Diarrhea Nsaids (Non-Steroid* Contraindication-Medical Surgical S/p gastric bypass, relative contraindication to NSAIDs Indication for Warfarin: Paroxysmal atrial fibrillation (hcc) 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 Atrial fibrillation, unspecified type (hcc) Anticoagulation Episode Summary Current INR goal: 2.0-3.0 Assessment: INR result of 2.1 is therapeutic Plan: Current Warfarin Dosing As of 07/28/2024 Full warfarin instructions: 10 mg every Mon, Diane; 7.5 mg all other days Sent [employer] message Advised patient to continue current weekly dose as noted above Next home INR check scheduled on 08/04/2024 Patient advised to call the PAC with any medication changes, bleeding/bruising concerns, recent changes in vitamin k consumption, if any procedures are coming up, if they have been ill or in the hospital, and if they have missed any doses of warfarin. Milla Douglas RPh Clinical Pharmacist, Pharmacy Anticoagulation Clinic Pharm[facility] Pager: [phone]. [facility] 07-28-2024 Miscellaneous Notes [facility] Anticoagulation Episode Summary Anticoagulation Care Providers Provider Role Specialty Phone number Jayjay Ortiz MD Referring Cardiology [phone] Chavo Tom is a 44 year old year old female patient being evaluated today for a Telemanagement visit. Patient is currently on the following anticoagulant(s) Warfarin. Labs PT INR (no units) Date Value 07/28/2024 2.1 07/20/2024 2.7 07/13/2024 3.5 Hemoglobin (g/dL) Date Value 07/14/2024 13.3 05/14/2021 14.4 Hematocrit (%) Date Value 07/14/2024 40.6 05/14/2021 44.4 Platelet Count (k/uL) Date Value 07/14/2024 383 05/14/2021 307 Creatinine (mg/dL) Date Value 07/14/2024 0.77 03/03/2024 0.69 03/02/2024 0.78 05/14/2021 0.83 03/19/2021 0.82 01/07/2021 0.65 Bilirubin, Total (mg/dL) Date Value 07/14/2024 0.3 08/27/2020 0.4 ALT (U/L) Date Value 07/14/2024 19 05/14/2021 33 AST (U/L) Date Value 07/14/2024 26 05/14/2021 26 Estimated Creatinine Clearance: 94.5 mL/min (based on SCr of 0.77 mg/dL). ALLERGIES Allergen Reactions Metformin Diarrhea Nsaids (Non-Steroid* Contraindication-Medical Surgical S/p gastric bypass, relative contraindication to NSAIDs Indication for Warfarin: Paroxysmal atrial fibrillation (hcc) 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 Atrial fibrillation, unspecified type (hcc) Anticoagulation Episode Summary Current INR goal: 2.0-3.0 Assessment: INR result of 2.1 is therapeutic Plan: Current Warfarin Dosing As of 07/28/2024 Full warfarin instructions: 10 mg every Mon, Diane; 7.5 mg all other days Sent [employer] message Advised patient to continue current weekly dose as noted above Next home INR check scheduled on 08/04/2024 Patient advised to call the PAC with any medication changes, bleeding/bruising concerns, recent changes in vitamin k consumption, if any procedures are coming up, if they have been ill or in the hospital, and if they have missed any doses of warfarin. Milla Douglas RPh Clinical Pharmacist, Pharmacy Anticoagulation Clinic Pharmacy [facility] Pager: [phone]. PAC received faxed outside lab/home meter result for patient via mdINR from Date: 07/28 . Results have been scanned into patient's chart and are located under 'Scanned Documents'. Please note, may take up to 10 minutes for document to transfer from [facility]. PT INR (no units) Date Value 07/28/2024 2.1 07/20/2024 2.7 07/13/2024 3.5 [place] [facility] ([facility] documented in this encounter [facility] 07-28-2024 Telephone encounter Note PAC received faxed outside lab/home meter result for patient via mdINR from Date: 07/28 . Results have been scanned into patient's chart and are located under 'Scanned Documents'. Please note, may take up to 10 minutes for document to transfer from [facility] to [facility]. PT INR (no units) Date Value 07/28/2024 2.1 07/20/2024 2.7 07/13/2024 3.5 [place] [facility] ([facility]) [facility] 07-20-2024 Miscellaneous Notes [facility] Anticoagulation Episode Summary Anticoagulation Care Providers Provider Role Specialty Phone number Jayjay Ortiz MD Referring Cardiology [phone] Chavo Tom is a 44 year old year old female patient being evaluated today for a Telemanagement visit. Patient is currently on the following anticoagulant(s) Warfarin. Labs PT INR (no units) Date Value 07/20/2024 2.7 07/13/2024 3.5 07/07/2024 2.0 Hemoglobin (g/dL) Date Value 07/14/2024 13.3 05/14/2021 14.4 Hematocrit (%) Date Value 07/14/2024 40.6 05/14/2021 44.4 Platelet Count (k/uL) Date Value 07/14/2024 383 05/14/2021 307 Creatinine (mg/dL) Date Value 07/14/2024 0.77 03/03/2024 0.69 03/02/2024 0.78 05/14/2021 0.83 03/19/2021 0.82 01/07/2021 0.65 Bilirubin, Total (mg/dL) Date Value 07/14/2024 0.3 08/27/2020 0.4 ALT (U/L) Date Value 07/14/2024 19 05/14/2021 33 AST (U/L) Date Value 07/14/2024 26 05/14/2021 26 Estimated Creatinine Clearance: 94.5 mL/min (based on SCr of 0.77 mg/dL). 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 (hcc) 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 Anticoagulation Episode Summary Current INR goal: 2.0-3.0 Assessment: INR result of 2.7 is therapeutic Plan: Current Warfarin Dosing As of 07/20/2024 Full warfarin instructions: 10 mg every Mon, Diane; 7.5 mg all other days Sent [employer] message Advised patient to continue current weekly dose as noted above Next home INR check scheduled on 08/03/2024 Patient advised to call the PAC with any medication changes, bleeding/bruising concerns, recent changes in vitamin k consumption, if any procedures are coming up, if they have been ill or in the hospital, and if they have missed any doses of warfarin. Milla Douglas RPh Clinical Pharmacist, Pharmacy Anticoagulation Clinic Pharmacy Anticoagulation Clinic Pager: [phone]. PAC received faxed outside lab/home meter result for patient via mdINR from Date: 07/20 . Results have been scanned into patient's chart and are located under 'Scanned Documents'. Please note, may take up to 10 minutes for document to transfer [facility]. PT INR (no units) Date Value 07/20/2024 2.7 07/13/2024 3.5 07/07/2024 2.0 [facility] [facility] ([place]) documented in this encounter [facility] 07-20-2024 Telephone encounter Note [facility] Anticoagulation Episode Summary Anticoagulation Care Providers Provider Role Specialty Phone number Jayjay Ortiz MD Referring Cardiology [phone] Chavo Tom is a 44 year old year old female patient being evaluated today for a Telemanagement visit. Patient is currently on the following anticoagulant(s) Warfarin. Labs PT INR (no units) Date Value 07/20/2024 2.7 07/13/2024 3.5 07/07/2024 2.0 Hemoglobin (g/dL) Date Value 07/14/2024 13.3 05/14/2021 14.4 Hematocrit (%) Date Value 07/14/2024 40.6 05/14/2021 44.4 Platelet Count (k/uL) Date Value 07/14/2024 383 05/14/2021 307 Creatinine (mg/dL) Date Value 07/14/2024 0.77 03/03/2024 0.69 03/02/2024 0.78 05/14/2021 0.83 03/19/2021 0.82 01/07/2021 0.65 Bilirubin, Total (mg/dL) Date Value 07/14/2024 0.3 08/27/2020 0.4 ALT (U/L) Date Value 07/14/2024 19 05/14/2021 33 AST (U/L) Date Value 07/14/2024 26 05/14/2021 26 Estimated Creatinine Clearance: 94.5 mL/min (based on SCr of 0.77 mg/dL). 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 (hcc) halfway (current) use of 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 Anticoagulation Episode Summary Current INR goal: 2.0-3.0 Assessment: INR result of 2.7 is therapeutic Plan: Current Warfarin Dosing As of 07/20/2024 Full warfarin instructions: 10 mg every Mon, Diane; 7.5 mg all other days Sent [employer] message Advised patient to continue current weekly dose as noted above Next home INR check scheduled on 08/03/2024 Patient advised to call the PAC with any medication changes, bleeding/bruising concerns, recent changes in vitamin k consumption, if any procedures are coming up, if they have been ill or in the hospital, and if they have missed any doses of warfarin. Milla Douglas [facility] Clinical Pharmacist, Pharmacy Anticoagulation Clinic Pharmacy Anticoagulation Clinic Pager: [phone]. [facility] 07-20-2024 Telephone encounter Note PAC received faxed outside lab/home meter result for patient via mdINR from Date: 07/20 . Results have been scanned into patient's chart and are located under 'Scanned Documents'. Please note, may take up to 10 minutes for document to transfer from [facility]. PT INR (no units) Date Value 07/20/2024 2.7 07/13/2024 3.5 07/07/2024 2.0 [place] [facility] ([facility] 07-14-2024 Instructions Yissel Atkinson APRN.CNP - 07/14/2024 2:47 PM EDT 1) Labs today 2) Flu shot today 3) Pneumonia shot 4) Consult [employer]NT 5) Follow up 6 m documented in this encounter [facility] 07-14-2024 History of Present illness Narrative This is a 44 year old female who presents today with: Patient presents with: Follow Up HISTORY OF PRESENT ILLNESS: Chavo Tom is a 44 year old female. Patient presents with: Follow Up No health complaints or concerns PAST MEDICAL HISTORY: PAST MEDICAL HISTORY Diagnosis Date Atrial fibrillation (HCC) CHADS score 0 Cardiomyopathy (HCC) 02/24/14 Family history of hypertrophic cardiomyopathy 01/18/2014 Impaired glucose tolerance 01/21/2011 Left bundle branch block Obesity S/P gastric bypass 02/18/2023 Sleep apnea Thyroid nodule, cold 04/12/2018 10/15/2020 US 4mm right nodule: no f/u recommended 12/10/16 US right nodule smaller: Heterogeneous solid nodule mid pole 6 x 4 x 5 mm01/27/14 US:hypoechoic 9 x 5 x 6mm nodule anteriorly at the mid right lobe 03/14/[address] Gama Rubin: felt nodule smaller, did not recommend KE 02/09/14 NM uptake scan: hypo-functoning thyroid nodule right mid-lobe Ventricular tachyarrhythmia (HCC) 02/2014 Vgmhs-Nosdpfepw-Iprgm (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 Cardioverted with 150j under sedation DEFIBRILLATOR SURGERY 02/24/2014 ICD, redo WPW & atrial fib ablation EPS: DEFIB. SURGERY 05/16/2021 Exchange of a SamEnrico SQ-RX 1010 pulse generator with a [facility] E[facility] SURG ANT SGMT PROC UNLISTED Right 05/03/2024 Dr. Stephany HERNÁNDEZ GASTRIC BYPASS/JENNY-EN-Y 02/18/2023 150cmantecolic jenny, 70cm bp limb LAPAROSCOPIC CHOLECYSTECTOMY 05/20/2023 PAST SURGICAL HISTORY OF 07/06/2014 WPW ablation PAST SURGICAL HISTORY OF 11/21/2019 MVr, myectomy, PVI, LAAC TYMPANOSTOMY LOCAL/TOPICAL ANESTHESIA Right ALLERGIES Metformin and Nsaids (Non-Steroidal Anti-Inflammatory Drug) MEDICATIONS Current Outpatient Medications Medication Sig metoprolol succinate ER (TOPROL XL) 25 mg 24 hr tablet Take 1.5 tablets by mouth once daily. doxycycline (VIBRA-TABS) 100 mg tablet TAKE 1/2 (ONE-HALF) OF A TABLET BY MOUTH TWICE DAILY cycloSPORINE (RESTASIS) 0.05 % ophthalmic emulsion Use 1 Drop in both eyes two times a day. sotalol (BETAPACE) 120 mg tablet Take 1 tablet by mouth two times a day. warfarin (COUMADIN) 5 mg tablet Take 1.5 tablets by mouth once daily. Equally 7.5 mg Daily (Patient taking differently: Take 7.5 mg by mouth once daily. Equally 7.5 mg Daily- Instructions on 07/14/24 10 mg every Mon, Diane; 7.5 mg all other days) cholecalciferol, vitamin D3, (VITAMIN D3 ORAL) Take by mouth. tacrolimus (PROTOPIC) 0.03 % ointment Apply to affected area twice daily. No current facility-administered medications for this visit. FAMILY HISTORY Problem Relation Age of Onset Lipids Father Diabetes Mother Hypertension Mother Thyroid Mother Coronary Artery Disease Mother CABG 2012 Diabetes Brother Heart Sister HOCM s/p ICD None Maternal Grandfather age 46-"suddenly" Heart Maternal Grandmother OR age 72 Alcohol/Drug Paternal Grandfather ETOH Diabetes Maternal Aunt Diabetes Maternal Uncle Colon Cancer No Family History Anesthesia Problems No Family History Social History Tobacco Use Smoking status: Never Smokeless tobacco: Never Vaping Use Vaping status: Never Used Substance Use Topics Alcohol use: No Drug use: No REVIEW OF SYSTEMS GENERAL: 100 lb. weight loss, no malaise, no fevers/ + chills HEENT: Negative for frequent or significant headaches, No changes in hearing or vision. Recently had cornea scraped- right eye NECK: Negative for lumps, goiter, pain and significant neck swelling RESPIRATORY: Negative for cough, hemoptysis, wheezing, dyspnea or shortness of breath CARDIOVASCULAR: Negative for chest pain, leg swelling, orthopnea, no palpitations- one episode GI: No nausea, vomiting, or diarrhea/constipation. No hematochezia/melena. No heartburn or reflux symptoms. : No history of dysuria, frequency or incontinence MUSCULOSKELETAL: Negative for joint pain or swelling. SKIN: Negative for lesions, rash, and itching ENDOCRINE: Negative for cold or heat intolerance, polyuria, polydipsia and goiter NEURO: No history of headaches, syncope, paralysis, seizures or tremors MOOD: Negative for depression, anxiety, or suicidal ideation. EXAM: BP 92/62 Pulse 70 Wt 71.2 kg (157 lb) LMP 01/06/2012 (Approximate) SpO2 100% BMI 23.79 kg/m PHYSICAL EXAM: Physical Exam Vitals reviewed. Constitutional: Appearance: Normal appearance. HENT: Head: Normocephalic. Neck: Vascular: No carotid bruit. Cardiovascular: Rate and Rhythm: Normal rate and regular rhythm. Pulses: Normal pulses. Heart sounds: Normal heart sounds. Pulmonary: Effort: Pulmonary effort is normal. Breath sounds: Normal breath sounds. Abdominal: General: Bowel sounds are normal. Palpations: Abdomen is soft. Musculoskeletal: General: Normal range of motion. Cervical back: Normal range of motion and neck supple. Lymphadenopathy: Cervical: No cervical adenopathy. Skin: General: Skin is warm and dry. Neurological: General: No focal deficit present. Mental Status: She is alert and oriented to person, place, and time. Psychiatric: Mood and Affect: Mood normal. Behavior: Behavior normal. LABS: Check labs ASSESSMENT/PLAN: 1. HOCM (hypertrophic obstructive cardiomyopathy) (HCC) - ICD9: 425.11, ICD10: I42.1 (primary diagnosis) Stable - COMPLETE BLOOD COUNT AND DIFFERENTIAL - COMPREHENSIVE METABOLIC PANEL - MAGNESIUM 2. Encounter for immunization - ICD9: V03.89, ICD10: Z23 - INFLUENZA VACCINE, AGE 6MO-64YR, TRIVALENT (AFLURIA, FLULAVAL, FLUVIRIN, FLUZONE) 3. Paroxysmal atrial fibrillation (HCC) - ICD9: 427.31, ICD10: I48.0 Anticoagulated - COMPLETE BLOOD COUNT AND DIFFERENTIAL - VITAMIN B12 4. Ventricular tachyarrhythmia (HCC) - ICD9: 427.1, ICD10: I47.20 Stable - Has ICD 5. ICD (implantable cardioverter-defibrillator) in place - ICD9: V45.02, ICD10: Z95.810 Stable - Follows w/ Cardiology 6. Xplkh-Umfcrwtdf-Lammd (WPW) syndrome - ICD9: 426.7, ICD10: I45.6 Stable 7. S/P gastric bypass - ICD9: V45.86, ICD10: Z98.84 Weight decreasing - Continue current medications - CYANOCOBALAMIN (VIT B-12) 1,000 MCG TABLET - MULTIVITAMIN TABLET - CALCIUM 200 MG ( CALCIUM CARBONATE 500 MG) CHEWABLE TABLET - COMPLETE BLOOD COUNT AND DIFFERENTIAL - COMPREHENSIVE METABOLIC PANEL - MAGNESIUM - THYROID STIMULATING HORMONE - HEMOGLOBIN - LIPID PANEL, NONFASTING 8. Hair loss - ICD9: 704.00, ICD10: L65.9 Recent - THYROID STIMULATING HORMONE Discussed treatment plan and patient voices understanding. Patient's questions answered appropriately. Medications and potential side effects were discussed and patient voices understanding. Return to the office as scheduled or as needed for worsening/no improvement. Yissel Atkinson APRN.GENIE documented in this encounter [facility] 07-13-2024 Telephone encounter Note [facility] Anticoagulation Episode Summary Anticoagulation Care Providers Provider Role Specialty Phone number Jayjay Ortiz MD Referring Cardiology [phone] Chavo Tom is a 44 year old year old female patient being evaluated today for a Telemanagement visit. Patient is currently on the following anticoagulant(s) Warfarin. Labs PT INR (no units) Date Value 07/13/2024 3.5 07/07/2024 2.0 06/29/2024 2.3 Hemoglobin (g/dL) Date Value 03/03/2024 12.0 05/14/2021 14.4 Hematocrit (%) Date Value 03/03/2024 36.0 05/14/2021 44.4 Platelet Count (k/uL) Date Value 03/03/2024 227 05/14/2021 307 Creatinine (mg/dL) Date Value 03/03/2024 0.69 03/02/2024 0.78 03/01/2024 0.72 05/14/2021 0.83 03/19/2021 0.82 01/07/2021 0.65 Bilirubin, Total (mg/dL) Date Value 02/29/2024 0.8 08/27/2020 0.4 ALT (U/L) Date Value 02/29/2024 30 05/14/2021 33 AST (U/L) Date Value 02/29/2024 62 05/14/2021 26 Estimated Creatinine Clearance: 105.4 mL/min (based on SCr of 0.69 mg/dL). 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 (hcc) halfway (current) use of 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 Anticoagulation Episode Summary Current INR goal: 2.0-3.0 Assessment: INR result of 3.5 is SUPRAtherapeutic due to: No obvious cause (patient denies medication change, grapefruit/cranberry/pomegranate/m ango ingestion, OTC medication use, change in herbal/nutritional supplement, accidental overdosage, change in warfarin tablet shape or color, change in vit K consumption, recent illness (NVD, fever), any changes to general health, changes in tobacco use, or EtOH consumption) Plan: Current Warfarin Dosing As of 07/13/2024 Full warfarin instructions: 07/14: 7.5 mg; Otherwise 10 mg every Mon, Diane; 7.5 mg all other days Called and spoke to patient/caregiver Advised patient to decrease dose for 1 day only then resume weekly regimen Next home INR check scheduled on 07/21/2024 Patient verbalized understanding and agrees with the plan. Patient advised to call the PAC with any medication changes, bleeding/bruising concerns, recent changes in vitamin k consumption, if any procedures are coming up, if they have been ill or in the hospital, and if they have missed any doses of warfarin. Milla Douglas RPh Clinical Pharmacist, Pharmacy [facility]tico[facility] Clinic [facility] Pager: [phone]. [facility] 07-13-2024 Miscellaneous Notes [facility] Anticoagulation Episode Summary Anticoagulation Care Providers Provider Role Specialty Phone number Jayjay Ortiz MD Referring Cardiology [phone] Chavo Tom is a 44 year old year old female patient being evaluated today for a Telemanagement visit. Patient is currently on the following anticoagulant(s) Warfarin. Labs PT INR (no units) Date Value 07/13/2024 3.5 07/07/2024 2.0 06/29/2024 2.3 Hemoglobin (g/dL) Date Value 03/03/2024 12.0 05/14/2021 14.4 Hematocrit (%) Date Value 03/03/2024 36.0 05/14/2021 44.4 Platelet Count (k/uL) Date Value 03/03/2024 227 05/14/2021 307 Creatinine (mg/dL) Date Value 03/03/2024 0.69 03/02/2024 0.78 03/01/2024 0.72 05/14/2021 0.83 03/19/2021 0.82 01/07/2021 0.65 Bilirubin, Total (mg/dL) Date Value 02/29/2024 0.8 08/27/2020 0.4 ALT (U/L) Date Value 02/29/2024 30 05/14/2021 33 AST (U/L) Date Value 02/29/2024 62 05/14/2021 26 Estimated Creatinine Clearance: 105.4 mL/min (based on SCr of 0.69 mg/dL). 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 (hcc) halfway (current) use of 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 Anticoagulation Episode Summary Current INR goal: 2.0-3.0 Assessment: INR result of 3.5 is SUPRAtherapeutic due to: No obvious cause (patient denies medication change, grapefruit/cranberry/pomegranate/m ango ingestion, OTC medication use, change in herbal/nutritional supplement, accidental overdosage, change in warfarin tablet shape or color, change in vit K consumption, recent illness (NVD, fever), any changes to general health, changes in tobacco use, or EtOH consumption) Plan: Current Warfarin Dosing As of 07/13/2024 Full warfarin instructions: 07/14: 7.5 mg; Otherwise 10 mg every Mon, Diane; 7.5 mg all other days Called and spoke to patient/caregiver Advised patient to decrease dose for 1 day only then resume weekly regimen Next home INR check scheduled on 07/21/2024 Patient verbalized understanding and agrees with the plan. Patient advised to call the PAC with any medication changes, bleeding/bruising concerns, recent changes in vitamin k consumption, if any procedures are coming up, if they have been ill or in the hospital, and if they have missed any doses of warfarin. Milla Douglas RPh Clinical Pharmacist, Pharmacy Anticoagulation Clinic [facility] Pager: [phone]. Received fax from [facility] with INR results for patient. Patient tested on 07/13/2024 and the INR result was 3.5. Fax can be found under scanned documents as miscellaneous lab result. It may take a few minutes to transfer from [employer]. PT INR (no units) Date Value 07/13/2024 3.5 07/07/2024 2.0 06/29/2024 2.3 Bernardo Zamora, Chief Data Officer (spray gun striper) [facility] documented in this encounter [facility] 07-13-2024 Telephone encounter Note Received fax from [facility] with INR results for patient. Patient tested on 07/13/2024 and the INR result was 3.5. Fax can be found under scanned documents as miscellaneous lab result. It may take a few minutes to transfer from [employer]. 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 Irregular astigmatism of both eyes -rosacea main culprit (on doxycycline) -patient also with long history of contact lens wear (since ~age 18) with varying habits (previously diagnosed with overwear) -recurrent monthly flare-ups with redness and irritation that responds well to steroid drops Plan: -decreased vision right eye with progression of superior pannus -s/p superficial keratectomy with amt 05/03/24 - delayed AMT dissolution -looks good! -preservative-free artificial tears four times a da -restasis twice a day both eyes -doxycyline 50mg daily -3-month dissolvable collagen plug size 0.3 placed lower puncta both eyes 11/19/22 -no contact lens wear -follow-up 6 months with dilated fundus exam both eyes / sooner as needed -Dr. Dimas for routine/glasses once surface stabilized I have confirmed and edited as necessary the relevant ophthalmic history, ROS, and the neuro exam findings as obtained by others. I have seen and examined Chavo Tom. I have discussed the case and the management of this patient's care with the Resident/Fellow, if applicable. I also have reviewed and agree with the assessment and plan as stated above and agree with all of its relevant components. Tri Parker MD documented in this encounter [facility] 07-07-2024 Telephone encounter Note [facility] Anticoagulation Episode Summary Anticoagulation Care Providers Provider Role Specialty Phone number Jayjay Ortiz MD Referring Cardiology [phone] Chavo Tom is a 44 year old year old female patient being evaluated today for a Telemanagement visit. Patient is currently on the following anticoagulant(s) Warfarin. Labs PT INR (no units) Date Value 07/07/2024 2.0 06/29/2024 2.3 06/17/2024 3.3 Hemoglobin (g/dL) Date Value 03/03/2024 12.0 05/14/2021 14.4 Hematocrit (%) Date Value 03/03/2024 36.0 05/14/2021 44.4 Platelet Count (k/uL) Date Value 03/03/2024 227 05/14/2021 307 Creatinine (mg/dL) Date Value 03/03/2024 0.69 03/02/2024 0.78 03/01/2024 0.72 05/14/2021 0.83 03/19/2021 0.82 01/07/2021 0.65 Bilirubin, Total (mg/dL) Date Value 02/29/2024 0.8 08/27/2020 0.4 ALT (U/L) Date Value 02/29/2024 30 05/14/2021 33 AST (U/L) Date Value 02/29/2024 62 05/14/2021 26 Estimated Creatinine Clearance: 105.4 mL/min (based on SCr of 0.69 mg/dL). 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 (hcc) 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 Anticoagulation Episode Summary Current INR goal: 2.0-3.0 Assessment: INR result of 2.0 is therapeutic Plan: Current Warfarin Dosing As of 07/07/2024 Full warfarin instructions: 10 mg every Mon, Diane; 7.5 mg all other days Sent [employer] message Advised patient to continue current weekly dose as noted above Next home INR check scheduled on 07/14/2024 Milla Douglas RPh Clinical Pharmacist, Pharmacy Anticoagulation Clinic Pharmacy [facility] Pager: [phone]. [facility] 07-07-2024 Miscellaneous Notes [facility] Anticoagulation Episode Summary Anticoagulation Care Providers Provider Role Specialty Phone number Jayjay Ortiz MD Referring Cardiology [phone] Chavo Tom is a 44 year old year old female patient being evaluated today for a Telemanagement visit. Patient is currently on the following anticoagulant(s) Warfarin. Labs PT INR (no units) Date Value 07/07/2024 2.0 06/29/2024 2.3 06/17/2024 3.3 Hemoglobin (g/dL) Date Value 03/03/2024 12.0 05/14/2021 14.4 Hematocrit (%) Date Value 03/03/2024 36.0 05/14/2021 44.4 Platelet Count (k/uL) Date Value 03/03/2024 227 05/14/2021 307 Creatinine (mg/dL) Date Value 03/03/2024 0.69 03/02/2024 0.78 03/01/2024 0.72 05/14/2021 0.83 03/19/2021 0.82 01/07/2021 0.65 Bilirubin, Total (mg/dL) Date Value 02/29/2024 0.8 08/27/2020 0.4 ALT (U/L) Date Value 02/29/2024 30 05/14/2021 33 AST (U/L) Date Value 02/29/2024 62 05/14/2021 26 Estimated Creatinine Clearance: 105.4 mL/min (based on SCr of 0.69 mg/dL). 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 (hcc) halfway (current) use of 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 Anticoagulation Episode Summary Current INR goal: 2.0-3.0 Assessment: INR result of 2.0 is therapeutic Plan: Current Warfarin Dosing As of 07/07/2024 Full warfarin instructions: 10 mg every Mon, Diane; 7.5 mg all other days Sent [employer] message Advised patient to continue current weekly dose as noted above Next home INR check scheduled on 07/14/2024 Milla Douglas RPh Clinical Pharmacist, Pharmacy Anticoagulation Clinic Pharmacy [facility] Pager: [phone]. Received fax from [facility] with INR results for patient. Patient tested on 07/07/2024 and the INR result was 2.0. Fax can be found under scanned documents as miscellaneous lab result. It may take a few minutes to transfer from [employer]. PT INR (no units) Date Value 07/07/2024 2.0 06/29/2024 2.3 06/17/2024 3.3 Bernardo Zamora Chief Data Officer (Naif) Pharmacy Anticoagulation Clinic documented in this encounter [facility] 07-07-2024 Telephone encounter Note Received fax from [facility] with INR results for patient. Patient tested on 07/07/2024 and the INR result was 2.0. Fax can be found under scanned documents as miscellaneous lab result. It may take a few minutes to transfer from [employer]. PT INR (no units) Date Value 07/07/2024 2.0 06/29/2024 2.3 06/17/2024 3.3 Bernardo Zamora Chief Data Officer (spray gun striper) Pharmacy Anticoagulation Clinic [facility] 06-30-2024 Telephone encounter Note [facility] Anticoagulation Episode Summary Anticoagulation Care Providers Provider Role Specialty Phone number Jayjay Ortiz MD Referring Cardiology [phone] Chavo Tom is a 43 year old year old female patient being evaluated today for a Telemanagement visit. Patient is currently on the following anticoagulant(s) Warfarin. Labs PT INR (no units) Date Value 06/29/2024 2.3 06/17/2024 3.3 06/02/2024 1.6 Hemoglobin (g/dL) Date Value 03/03/2024 12.0 05/14/2021 14.4 Hematocrit (%) Date Value 03/03/2024 36.0 05/14/2021 44.4 Platelet Count (k/uL) Date Value 03/03/2024 227 05/14/2021 307 Creatinine (mg/dL) Date Value 03/03/2024 0.69 03/02/2024 0.78 03/01/2024 0.72 05/14/2021 0.83 03/19/2021 0.82 01/07/2021 0.65 Bilirubin, Total (mg/dL) Date Value 02/29/2024 0.8 08/27/2020 0.4 ALT (U/L) Date Value 02/29/2024 30 05/14/2021 33 AST (U/L) Date Value 02/29/2024 62 05/14/2021 26 Estimated Creatinine Clearance: 106.5 mL/min (based on SCr of 0.69 mg/dL). 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 [facility] 06-30-2024 Miscellaneous Notes [facility]tico[facility] Anticoagulation Episode Summary Anticoagulation Care Providers Provider Role Specialty Phone number Jayjay Ortiz MD Referring Cardiology [phone] Chavo Tom is a 43 year old year old female patient being evaluated today for a Telemanagement visit. Patient is currently on the following anticoagulant(s) Warfarin. Labs PT INR (no units) Date Value 06/29/2024 2.3 06/17/2024 3.3 06/02/2024 1.6 Hemoglobin (g/dL) Date Value 03/03/2024 12.0 05/14/2021 14.4 Hematocrit (%) Date Value 03/03/2024 36.0 05/14/2021 44.4 Platelet Count (k/uL) Date Value 03/03/2024 227 05/14/2021 307 Creatinine (mg/dL) Date Value 03/03/2024 0.69 03/02/2024 0.78 03/01/2024 0.72 05/14/2021 0.83 03/19/2021 0.82 01/07/2021 0.65 Bilirubin, Total (mg/dL) Date Value 02/29/2024 0.8 08/27/2020 0.4 ALT (U/L) Date Value 02/29/2024 30 05/14/2021 33 AST (U/L) Date Value 02/29/2024 62 05/14/2021 26 Estimated Creatinine Clearance: 106.5 mL/min (based on SCr of 0.69 mg/dL). 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 PAC received faxed outside lab/home meter result for patient via [facility] from Date: 06/29 . Results have been scanned into patient's chart and are located under 'Scanned Documents'. Please note, may take up to 10 minutes for document to transfer from [employer] to [facility]. PT INR (no units) Date Value 06/29/2024 2.3 06/17/2024 3.3 06/02/2024 1.6 [facility] P[facility] ([facility] documented in this encounter [facility] 06-30-2024 Telephone encounter Note PAC received faxed outside lab/home meter result for patient via [facility] from Date: 06/29 . Results have been scanned into patient's chart and are located under 'Scanned Documents'. Please note, may take up to 10 minutes for document to transfer from [employer] to [employer] [facility]. PT INR (no units) Date Value 06/29/2024 2.3 06/17/2024 3.3 06/02/2024 1.6 Maine Paz ([facility]) [facility] 06-20-2024 Telephone encounter Note [facility]tico[facility] Anticoagulation Episode Summary Anticoagulation Care Providers Provider Role Specialty Phone number Jayjay Ortiz MD Referring Cardiology [phone] Chavo Tom is a 43 year old year old female patient being evaluated today for a Telemanagement visit. Patient is currently on the following anticoagulant(s) Warfarin. Labs PT INR (no units) Date Value 06/17/2024 3.3 06/02/2024 1.6 05/25/2024 1.9 Hemoglobin (g/dL) Date Value 03/03/2024 12.0 05/14/2021 14.4 Hematocrit (%) Date Value 03/03/2024 36.0 05/14/2021 44.4 Platelet Count (k/uL) Date Value 03/03/2024 227 05/14/2021 307 Creatinine (mg/dL) Date Value 03/03/2024 0.69 03/02/2024 0.78 03/01/2024 0.72 05/14/2021 0.83 03/19/2021 0.82 01/07/2021 0.65 Bilirubin, Total (mg/dL) Date Value 02/29/2024 0.8 08/27/2020 0.4 ALT (U/L) Date Value 02/29/2024 30 05/14/2021 33 AST (U/L) Date Value 02/29/2024 62 05/14/2021 26 Estimated Creatinine Clearance: 106.5 mL/min (based on SCr of 0.69 mg/dL). 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 (hcc) halfway (current) use of 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 Anticoagulation Episode Summary Current INR goal: 2.0-3.0 Assessment: INR result of 3.3 is SUPRAtherapeutic due to: unknown cause - did not speak to patient Noted pt tested INR 5pm on Thursday and result received to [facility] Thursday AM Left in VM to try to test Thursday- so Pharm[facility] Antico[facility] can address in timely manner Plan: Current Warfarin Dosing As of 06/20/2024 Full warfarin instructions: 06/20: 5 mg; Otherwise 10 mg every Thu, Thu; 7.5 mg all other days Left voice message - Left detailed VM with dosing per prior permission Advised patient to decrease dose for 1 day only then resume weekly regimen Next home INR check scheduled on 06/30 Rosa Moore RPh Clinical Pharmacist, Pharmacy Anticoagulation Clinic Pharmacy [facility]tico[facility] Pager: [phone]. [facility] 06-20-2024 Miscellaneous Notes [facility] Anticoagulation Episode Summary Anticoagulation Care Providers Provider Role Specialty Phone number Jayjay Ortiz MD Referring Cardiology [phone] Chavo Tom is a 43 year old year old female patient being evaluated today for a Telemanagement visit. Patient is currently on the following anticoagulant(s) Warfarin. Labs PT INR (no units) Date Value 06/17/2024 3.3 06/02/2024 1.6 05/25/2024 1.9 Hemoglobin (g/dL) Date Value 03/03/2024 12.0 05/14/2021 14.4 Hematocrit (%) Date Value 03/03/2024 36.0 05/14/2021 44.4 Platelet Count (k/uL) Date Value 03/03/2024 227 05/14/2021 307 Creatinine (mg/dL) Date Value 03/03/2024 0.69 03/02/2024 0.78 03/01/2024 0.72 05/14/2021 0.83 03/19/2021 0.82 01/07/2021 0.65 Bilirubin, Total (mg/dL) Date Value 02/29/2024 0.8 08/27/2020 0.4 ALT (U/L) Date Value 02/29/2024 30 05/14/2021 33 AST (U/L) Date Value 02/29/2024 62 05/14/2021 26 Estimated Creatinine Clearance: 106.5 mL/min (based on SCr of 0.69 mg/dL). 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 (hcc) halfway (current) use of 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 Anticoagulation Episode Summary Current INR goal: 2.0-3.0 Assessment: INR result of 3.3 is SUPRAtherapeutic due to: unknown cause - did not speak to patient Noted pt tested INR 5pm on Thursday and result received to [facility] Thursday AM Left in VM to try to test Thursday- so Pharmacy Antico[facility] can address in timely manner Plan: Current Warfarin Dosing As of 06/20/2024 Full warfarin instructions: 06/20: 5 mg; Otherwise 10 mg every Mon, Diane; 7.5 mg all other days Left voice message - Left detailed VM with dosing per prior permission Advised patient to decrease dose for 1 day only then resume weekly regimen Next home INR check scheduled on 06/30 Rosa Moore RPh Clinical Pharmacist, Pharmacy Anticoagulation Clinic Pharm[facility] Pager: [phone]. Received fax from [facility] with INR results for patient. Patient tested on 06/17/2024 and the INR result was 3.3. Fax can be found under scanned documents as miscellaneous lab result. [facility] PT INR (no units) Date Value 06/17/2024 3.3 06/02/2024 1.6 05/25/2024 1.9 Bernardo Zamora Chief Data Officer (spray gun striper) Pharmacy Anticoagulation Clinic documented in this encounter [facility] 06-20-2024 Telephone encounter Note Received fax from [facility] with INR results for patient. Patient tested on 06/17/2024 and the INR result was 3.3. Fax can be found under scanned documents as miscellaneous lab result. It may take a few minutes to transfer from [facility]. 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 Irregular astigmatism of both eyes -rosacea main culprit (on doxycycline) -patient also with long history of contact lens wear (since ~age 18) with varying habits (previously diagnosed with overwear) -recurrent monthly flare-ups with redness and irritation that responds well to steroid drops Plan: -decreased vision right eye with progression of superior pannus -s/p superficial keratectomy with amt 05/03/24 - delayed AMT dissolution -preservative-free artificial tears four times a da -restasis twice a day both eyes -doxycyline 50mg daily -valtrex 500mg twice a day orally x 2 weeks then stop -3-month dissolvable collagen plug size 0.3 placed lower puncta both eyes 11/19/22 -no contact lens wear -follow-up 1-2 months with refraction / sooner as needed -Dr. Dimas for routine/glasses once surface stabilized I have confirmed and edited as necessary the relevant ophthalmic history, ROS, and the neuro exam findings as obtained by others. I have seen and examined Chavo Tom. I have discussed the case and the management of this patient's care with the Resident/Fellow, if applicable. I also have reviewed and agree with the assessment and plan as stated above and agree with all of its relevant components. Tri Parker MD documented in this encounter [facility] 06-08-2024 Telephone encounter Note Submitted request for prior authorization- [employer] via [employer]. Approval received. Valid 05/09/24 to 06/08/25. Shaye Le June 08, 2024 1:00 PM [facility] 06-08-2024 Miscellaneous Notes Submitted request for prior authorization- [employer] via [employer]. Approval received. Valid 05/09/24 to 06/08/25. Shaye Le June 08, 2024 1:00 PM documented in this encounter [facility] 06-03-2024 Telephone encounter Note [employer] message has been routed to Dr. Parker and to Dr. Fajardo to advise. Judy Lake RN June 03, 2024 10:48 AM [facility] 06-03-2024 Miscellaneous Notes [employer] message has been routed to Dr. Parker and to Dr. Fajardo to advise. Judy Lake RN June 03, 2024 10:48 AM Patient has also sent the same message via [employer]. Routed to Dr. Parker. Waiting for response from Dr. Parker. Judy Lake RN June 02, 2024 3:25 PM Patient called in stating they have stopped Prednisolone and their eyes are watering and swelling again. Patient would like to know if she should begin again? Patient needs another refill if so Please advise Thank you Jackie Blanco June 02, 2024 3:07 PM documented in this encounter [facility] 06-02-2024 Telephone encounter Note Patient has also sent the same message via [employer]. Routed to Dr. Parker. Waiting for response from Dr. Parker. Judy Lake RN June 02, 2024 3:25 PM [facility] 06-02-2024 Telephone encounter Note Patient called in stating they have stopped Prednisolone and their eyes are watering and swelling again. Patient would like to know if she should begin again? Patient needs another refill if so Please advise Thank you Jackie Blanco June 02, 2024 3:07 PM [facility] 06-02-2024 Telephone encounter Note [facility] Anticoagulation Episode Summary Anticoagulation Care Providers Provider Role Specialty Phone number Jayjay Ortiz MD Referring Cardiology [phone] Chavo Tom is a 43 year old year old female patient being evaluated today for a Telemanagement visit. Patient is currently on the following anticoagulant(s) Warfarin. Labs PT INR (no units) Date Value 06/02/2024 1.6 05/25/2024 1.9 05/18/2024 2.3 Hemoglobin (g/dL) Date Value 03/03/2024 12.0 05/14/2021 14.4 Hematocrit (%) Date Value 03/03/2024 36.0 05/14/2021 44.4 Platelet Count (k/uL) Date Value 03/03/2024 227 05/14/2021 307 Creatinine (mg/dL) Date Value 03/03/2024 0.69 03/02/2024 0.78 03/01/2024 0.72 05/14/2021 0.83 03/19/2021 0.82 01/07/2021 0.65 Bilirubin, Total (mg/dL) Date Value 02/29/2024 0.8 08/27/2020 0.4 ALT (U/L) Date Value 02/29/2024 30 05/14/2021 33 AST (U/L) Date Value 02/29/2024 62 05/14/2021 26 Estimated Creatinine Clearance: 106.5 mL/min (based on SCr of 0.69 mg/dL). ALLERGIES Allergen Reactions Metformin Diarrhea Nsaids (Non-Steroid* Contraindication-Medical Surgical S/p gastric bypass, relative contraindication to NSAIDs Indication for Warfarin: Paroxysmal atrial fibrillation (hcc) halfway (current) use of 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 Anticoagulation Episode Summary Current INR goal: 2.0-3.0 Assessment: INR result of 1.6 is SUBtherapeutic due to: unknown cause - did not speak to patient Plan: Current Warfarin Dosing As of 06/02/2024 Full warfarin instructions: 06/02: 12.5 mg; Otherwise 10 mg every Mon, Diane; 7.5 mg all other days Sent Snaptript message + LVMX to check MYC messages Advised patient to increase dose for 1 day and increase total weekly regimen Next home INR check scheduled on 06/09/2024 Sharon Mejia RPh Clinical Pharmacist, Pharmacy Anticoagulation Clinic [facility] Pager: [phone]. [facility] 06-02-2024 Miscellaneous Notes [facility] Anticoagulation Episode Summary Anticoagulation Care Providers Provider Role Specialty Phone number Jayjay Ortiz MD Referring Cardiology [phone] Chavo Tom is a 43 year old year old female patient being evaluated today for a Telemanagement visit. Patient is currently on the following anticoagulant(s) Warfarin. Labs PT INR (no units) Date Value 06/02/2024 1.6 05/25/2024 1.9 05/18/2024 2.3 Hemoglobin (g/dL) Date Value 03/03/2024 12.0 05/14/2021 14.4 Hematocrit (%) Date Value 03/03/2024 36.0 05/14/2021 44.4 Platelet Count (k/uL) Date Value 03/03/2024 227 05/14/2021 307 Creatinine (mg/dL) Date Value 03/03/2024 0.69 03/02/2024 0.78 03/01/2024 0.72 05/14/2021 0.83 03/19/2021 0.82 01/07/2021 0.65 Bilirubin, Total (mg/dL) Date Value 02/29/2024 0.8 08/27/2020 0.4 ALT (U/L) Date Value 02/29/2024 30 05/14/2021 33 AST (U/L) Date Value 02/29/2024 62 05/14/2021 26 Estimated Creatinine Clearance: 106.5 mL/min (based on SCr of 0.69 mg/dL). ALLERGIES Allergen Reactions Metformin Diarrhea Nsaids (Non-Steroid* Contraindication-Medical Surgical S/p gastric bypass, relative contraindication to NSAIDs Indication for Warfarin: Paroxysmal atrial fibrillation (hcc) 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 Anticoagulation Episode Summary Current INR goal: 2.0-3.0 Assessment: INR result of 1.6 is SUBtherapeutic due to: unknown cause - did not speak to patient Plan: Current Warfarin Dosing As of 06/02/2024 Full warfarin instructions: 06/02: 12.5 mg; Otherwise 10 mg every Mon, Diane; 7.5 mg all other days Sent [employer] message + LVMX to check MYC messages Advised patient to increase dose for 1 day and increase total weekly regimen Next home INR check scheduled on 06/09/2024 Sharon Mejia RPh Clinical Pharmacist, Pharmacy Anticoagulation Clinic Pharmacy [facility] Pager: [phone]. Received fax from [facility] with INR results for patient. Patient tested on 06/02/2024 and the INR result was 1.6. Fax can be found under scanned documents as miscellaneous lab result. It may take a few minutes to transfer from [employer]. PT INR (no units) Date Value 06/02/2024 1.6 05/25/2024 1.9 05/18/2024 2.3 Bernardo Zamora, Chief Data Officer (spray gun striper) Pharmacy Anticoagulation Clinic Last OV with referring provider was 11/25/2022 documented in this encounter [facility] 06-02-2024 Telephone encounter Note Received fax from [facility] with INR results for patient. Patient tested on 06/02/2024 and the INR result was 1.6. Fax can be found under scanned documents as miscellaneous lab result. It may take a few minutes to transfer from [employer]. 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 Dry eye syndrome of both eyes Brief History -s/p superficial keratectomy with ambiodisc/bandage contact lens placement ([facility] 05/03/24). -rosacea main culprit (on doxycycline) -patient also with long history of contact lens wear (since ~age 18) with varying habits (previously diagnosed with overwear) -recurrent monthly flare-ups with redness and irritation that responds well to steroid drops -current regimen Ats QID OU prn, polytrim BID OD, pred every day OD, restasis BID OS, doxycycline 50mg daily -bandage lens was removed at last encounter to see if amniotic membrane would dissolve quicker. Today with injection and pain in the same eye, described as something Exam Findings Today -OD: amniotic membrane seems very crinkled, seems to be causing patient's fbs. -removed remaining membrane, placed bandage contact lens HOMER 8.4/14.0/plano Recommendations -RTC one week with me in [place] for progress check -continue habitual drop regimen, not taking polytrim, recommend starting vigamox QID while wearing bandage lens. 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 Dry eye syndrome of both eyes 4. Irregular astigmatism of both eyes -patient doing significantly better today, improved pain -pre op acuity: PH 20/80-2 OD, today PH 20/40+2 -replaced bandage lens -stop pred OD, can continue polytrim BID, wait to restart restasis until she sees Dr. Parker on 06/08/24 Oneyda Fajardo, KOBY documented in this encounter [facility] 05-26-2024 Telephone encounter Note [facility]tico[facility] Anticoagulation Episode Summary Anticoagulation Care Providers Provider Role Specialty Phone number Jayjay Ortiz MD Referring Cardiology [phone] Chavo Tom is a 43 year old year old female patient being evaluated today for a Telemanagement visit. Patient is currently on the following anticoagulant(s) Warfarin. Labs PT INR (no units) Date Value 05/25/2024 1.9 05/18/2024 2.3 05/14/2024 2.4 Hemoglobin (g/dL) Date Value 03/03/2024 12.0 05/14/2021 14.4 Hematocrit (%) Date Value 03/03/2024 36.0 05/14/2021 44.4 Platelet Count (k/uL) Date Value 03/03/2024 227 05/14/2021 307 Creatinine (mg/dL) Date Value 03/03/2024 0.69 03/02/2024 0.78 03/01/2024 0.72 05/14/2021 0.83 03/19/2021 0.82 01/07/2021 0.65 Bilirubin, Total (mg/dL) Date Value 02/29/2024 0.8 08/27/2020 0.4 ALT (U/L) Date Value 02/29/2024 30 05/14/2021 33 AST (U/L) Date Value 02/29/2024 62 05/14/2021 26 Estimated Creatinine Clearance: 106.5 mL/min (based on SCr of 0.69 mg/dL). 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 (hcc) halfway (current) use of 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 Anticoagulation Episode Summary Current INR goal: 2.0-3.0 Assessment: INR result of 1.9 is SUBtherapeutic due to: No obvious cause (patient denies liver, green tea, new herbal/nutritional supplements - such as Boost, Ensure, an increase in vit K foods and/or V8 type juices, any changes in warfarin tablet, or missed doses) Plan: Current Warfarin Dosing As of 05/26/2024 Full warfarin instructions: 05/27: 10 mg; Otherwise 10 mg every Diane; 7.5 mg all other days Called and spoke to patient/caregiver Advised patient to increase dose for 1 day only then resume weekly regimen Next home INR check scheduled on 06/02/2024 Patient verbalizes understanding of the plan. Patient denies need for refills. Milla Douglas RPh Clinical Pharmacist, Pharmacy Anticoagulation Clinic Pharmacy Anticoagulation Clinic Pager: [phone]. [facility] 05-26-2024 Miscellaneous Notes [facility] Anticoagulation Episode Summary Anticoagulation Care Providers Provider Role Specialty Phone number Jayjay Ortiz MD Referring Cardiology [phone] Chavo Tom is a 43 year old year old female patient being evaluated today for a Telemanagement visit. Patient is currently on the following anticoagulant(s) Warfarin. Labs PT INR (no units) Date Value 05/25/2024 1.9 05/18/2024 2.3 05/14/2024 2.4 Hemoglobin (g/dL) Date Value 03/03/2024 12.0 05/14/2021 14.4 Hematocrit (%) Date Value 03/03/2024 36.0 05/14/2021 44.4 Platelet Count (k/uL) Date Value 03/03/2024 227 05/14/2021 307 Creatinine (mg/dL) Date Value 03/03/2024 0.69 03/02/2024 0.78 03/01/2024 0.72 05/14/2021 0.83 03/19/2021 0.82 01/07/2021 0.65 Bilirubin, Total (mg/dL) Date Value 02/29/2024 0.8 08/27/2020 0.4 ALT (U/L) Date Value 02/29/2024 30 05/14/2021 33 AST (U/L) Date Value 02/29/2024 62 05/14/2021 26 Estimated Creatinine Clearance: 106.5 mL/min (based on SCr of 0.69 mg/dL). 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 (hcc) halfway (current) use of 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 Anticoagulation Episode Summary Current INR goal: 2.0-3.0 Assessment: INR result of 1.9 is SUBtherapeutic due to: No obvious cause (patient denies liver, green tea, new herbal/nutritional supplements - such as Boost, Ensure, an increase in vit K foods and/or V8 type juices, any changes in warfarin tablet, or missed doses) Plan: Current Warfarin Dosing As of 05/26/2024 Full warfarin instructions: 05/27: 10 mg; Otherwise 10 mg every Diane; 7.5 mg all other days Called and spoke to patient/caregiver Advised patient to increase dose for 1 day only then resume weekly regimen Next home INR check scheduled on 06/02/2024 Patient verbalizes understanding of the plan. Patient denies need for refills. Milla Douglas RPh Clinical Pharmacist, Pharmacy Anticoagulation Clinic Pharmacy Anticoagulation Clinic Pager: [phone]. Received fax from [facility] with INR results for patient. Patient tested on 05/25/2024 and the INR result was 1.9. Fax can be found under scanned documents as miscellaneous lab result. It may take a few minutes to transfer from [employer]. PT INR (no units) Date Value 05/25/2024 1.9 05/18/2024 2.3 05/14/2024 2.4 Bernardo Zamora, Chief Data Officer (spray gun striper) Pharmacy Anticoagulation Clinic documented in this encounter [facility] 05-26-2024 Telephone encounter Note Appointment scheduled for SDA at 2:45. Left detailed voicemail in regards to appointment. Samira Lyons May 26, 2024 12:25 PM [facility] 05-26-2024 Miscellaneous Notes Appointment scheduled for SDA at 2:45. Left detailed voicemail in regards to appointment. Samira Lyons May 26, 2024 12:25 PM Patient states there is watering, pain,fbs, light sensitivity,and eyelid swelling in right eye. States watering, lid swelling, and light sensitivity has been present since post op appointment but pain and fbs started a couple days ago. States when she looks in the mirror there appears to be scratches on lens. Patient believes the ambio disk is moving. Keratectomy surgery was on 05/03/24. Please advise Samira Lyons May 26, 2024 12:17 PM documented in this encounter [facility] 05-26-2024 Telephone encounter Note Patient states there is watering, pain,fbs, light sensitivity,and eyelid swelling in right eye. States watering, lid swelling, and light sensitivity has been present since post op appointment but pain and fbs started a couple days ago. States when she looks in the mirror there appears to be scratches on lens. Patient believes the ambio disk is moving. Keratectomy surgery was on 05/03/24. Please advise Samira Lyons May 26, 2024 12:17 PM [facility] 05-26-2024 Telephone encounter Note Received fax from [facility] with INR results for patient. Patient tested on 05/25/2024 and the INR result was 1.9. Fax can be found under scanned documents as miscellaneous lab result. [facility] PT INR (no units) Date Value 05/25/2024 1.9 05/18/2024 2.3 05/14/2024 2.4 Bernardo Zamora, Chief Data Officer (spray gun striper) Pharmacy Anticoagulation Clinic [facility] 05-25-2024 Telephone encounter Note Faxed [employer] FMLA/Disability forms per patient request to [phone]. Shaye Le May 25, 2024 3:23 PM [facility] 05-25-2024 Miscellaneous Notes Faxed [place] FMLA/Disability forms per patient request to [phone]. Shaye Le May 25, 2024 3:23 PM documented in this encounter [facility] 05-19-2024 Telephone encounter Note [facility]tico[facility] Anticoagulation Episode Summary Anticoagulation Care Providers Provider Role Specialty Phone number Jayjay Ortiz MD Referring Cardiology [phone] Chavo Tom is a 43 year old year old female patient being evaluated today for a Telemanagement visit. Patient is currently on the following anticoagulant(s) Warfarin. Labs PT INR (no units) Date Value 05/18/2024 2.3 05/14/2024 2.4 05/04/2024 1.7 Hemoglobin (g/dL) Date Value 03/03/2024 12.0 05/14/2021 14.4 Hematocrit (%) Date Value 03/03/2024 36.0 05/14/2021 44.4 Platelet Count (k/uL) Date Value 03/03/2024 227 05/14/2021 307 Creatinine (mg/dL) Date Value 03/03/2024 0.69 03/02/2024 0.78 03/01/2024 0.72 05/14/2021 0.83 03/19/2021 0.82 01/07/2021 0.65 Bilirubin, Total (mg/dL) Date Value 02/29/2024 0.8 08/27/2020 0.4 ALT (U/L) Date Value 02/29/2024 30 05/14/2021 33 AST (U/L) Date Value 02/29/2024 62 05/14/2021 26 Estimated Creatinine Clearance: 106.5 mL/min (based on SCr of 0.69 mg/dL). 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 [facility] Work Phone: 05-19-2024 Miscellaneous Notes [facility]tico[facility] Anticoagulation Episode Summary Anticoagulation Care Providers Provider Role Specialty Phone number Jayjay Ortiz MD Referring Cardiology [phone] Chavo Tom is a 43 year old year old female patient being evaluated today for a Telemanagement visit. Patient is currently on the following anticoagulant(s) Warfarin. Labs PT INR (no units) Date Value 05/18/2024 2.3 05/14/2024 2.4 05/04/2024 1.7 Hemoglobin (g/dL) Date Value 03/03/2024 12.0 05/14/2021 14.4 Hematocrit (%) Date Value 03/03/2024 36.0 05/14/2021 44.4 Platelet Count (k/uL) Date Value 03/03/2024 227 05/14/2021 307 Creatinine (mg/dL) Date Value 03/03/2024 0.69 03/02/2024 0.78 03/01/2024 0.72 05/14/2021 0.83 03/19/2021 0.82 01/07/2021 0.65 Bilirubin, Total (mg/dL) Date Value 02/29/2024 0.8 08/27/2020 0.4 ALT (U/L) Date Value 02/29/2024 30 05/14/2021 33 AST (U/L) Date Value 02/29/2024 62 05/14/2021 26 Estimated Creatinine Clearance: 106.5 mL/min (based on SCr of 0.69 mg/dL). 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 PAC received faxed outside lab/home meter result for patient via [facility] from Date: 05/18 . Results have been scanned into patient's chart and are located under 'Scanned Documents'. Please note, may take up to 10 minutes for document to transfer from [facility]. PT INR (no units) Date Value 05/18/2024 2.3 05/14/2024 2.4 05/04/2024 1.7 Maine Paz ([facility] documented in this encounter [facility] 05-19-2024 Telephone encounter Note PAC received faxed outside lab/home meter result for patient via [facility] from Date: 05/18 . Results have been scanned into patient's chart and are located under 'Scanned Documents'. Please note, may take up to 10 minutes for document to transfer from [facility] to [facility]. 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 Irregular astigmatism of both eyes -rosacea main culprit (on doxycycline) -patient also with long history of contact lens wear (since ~age 18) with varying habits (previously diagnosed with overwear) -recurrent monthly flare-ups with redness and irritation that responds well to steroid drops Plan: -decreased vision right eye with progression of superior pannus -preservative-free artificial tears four times a day both eyes as needed -polytrim (white top) 2 times a day right eye for 1 week then stop -prednisolone (pink cap) 2 times a day right eye for 1 week then once a day for 1 week then stop -restasis twice a day left eye only -doxycyline 50mg daily -3-month dissolvable collagen plug size 0.3 placed lower puncta both eyes 11/19/22 -no contact lens wear -follow-up 2-3 weeks to monitor cornea ans amt dissolves / sooner as needed -Dr. Dimas for routine/glasses once surface stabilized I have confirmed and edited as necessary the relevant ophthalmic history, ROS, and the neuro exam findings as obtained by others. I have seen and examined Chavo Tom. I have discussed the case and the management of this patient's care with the Resident/Fellow, if applicable. I also have reviewed and agree with the assessment and plan as stated above and agree with all of its relevant components. Tri Parker MD documented in this encounter [facility] 05-16-2024 Telephone encounter Note [facility]tico[facility] Anticoagulation Episode Summary Anticoagulation Care Providers Provider Role Specialty Phone number Jayjay Ortiz MD Referring Cardiology [phone] Chavo Tom is a 43 year old year old female patient being evaluated today for a Telemanagement visit. Patient is currently on the following anticoagulant(s) Warfarin. Labs PT INR (no units) Date Value 05/14/2024 2.4 05/04/2024 1.7 04/28/2024 3.6 Hemoglobin (g/dL) Date Value 03/03/2024 12.0 05/14/2021 14.4 Hematocrit (%) Date Value 03/03/2024 36.0 05/14/2021 44.4 Platelet Count (k/uL) Date Value 03/03/2024 227 05/14/2021 307 Creatinine (mg/dL) Date Value 03/03/2024 0.69 03/02/2024 0.78 03/01/2024 0.72 05/14/2021 0.83 03/19/2021 0.82 01/07/2021 0.65 Bilirubin, Total (mg/dL) Date Value 02/29/2024 0.8 08/27/2020 0.4 ALT (U/L) Date Value 02/29/2024 30 05/14/2021 33 AST (U/L) Date Value 02/29/2024 62 05/14/2021 26 Estimated Creatinine Clearance: 106.5 mL/min (based on SCr of 0.69 mg/dL). 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 (hcc) 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 Anticoagulation Episode Summary Current INR goal: 2.0-3.0 Assessment: INR result of 2.4 is therapeutic Plan: Current Warfarin Dosing As of 05/16/2024 Full warfarin instructions: 10 mg every Diane; 7.5 mg all other days Sent [employer] message Advised patient to continue current weekly dose as noted above Next home INR check scheduled on 05/23/2024 Jennifer Zazueta RPh Clinical Pharmacist, Pharmacy Anticoagulation Clinic Pharmacy Anticoagulation Clinic Pager: [phone]. [facility] 05-16-2024 Miscellaneous Notes [facility] Anticoagulation Episode Summary Anticoagulation Care Providers Provider Role Specialty Phone number Jayjay Ortiz MD Referring Cardiology [phone] Chavo Tom is a 43 year old year old female patient being evaluated today for a Telemanagement visit. Patient is currently on the following anticoagulant(s) Warfarin. Labs PT INR (no units) Date Value 05/14/2024 2.4 05/04/2024 1.7 04/28/2024 3.6 Hemoglobin (g/dL) Date Value 03/03/2024 12.0 05/14/2021 14.4 Hematocrit (%) Date Value 03/03/2024 36.0 05/14/2021 44.4 Platelet Count (k/uL) Date Value 03/03/2024 227 05/14/2021 307 Creatinine (mg/dL) Date Value 03/03/2024 0.69 03/02/2024 0.78 03/01/2024 0.72 05/14/2021 0.83 03/19/2021 0.82 01/07/2021 0.65 Bilirubin, Total (mg/dL) Date Value 02/29/2024 0.8 08/27/2020 0.4 ALT (U/L) Date Value 02/29/2024 30 05/14/2021 33 AST (U/L) Date Value 02/29/2024 62 05/14/2021 26 Estimated Creatinine Clearance: 106.5 mL/min (based on SCr of 0.69 mg/dL). 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 (hcc) halfway (current) use of 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 Anticoagulation Episode Summary Current INR goal: 2.0-3.0 Assessment: INR result of 2.4 is therapeutic Plan: Current Warfarin Dosing As of 05/16/2024 Full warfarin instructions: 10 mg every Diane; 7.5 mg all other days Sent [employer] message Advised patient to continue current weekly dose as noted above Next home INR check scheduled on 05/23/2024 Jennifer Zazueta RPh Clinical Pharmacist, Pharmacy Anticoagulation Clinic [facility] Pager: [phone]. PAC received faxed outside lab/home meter result for patient via mdINR from Date: 05/14 . Results have been scanned into patient's chart and are located under 'Scanned Documents'. Please note, may take up to 10 minutes for document to transfer [facility]. PT INR (no units) Date Value 05/14/2024 2.4 05/04/2024 1.7 04/28/2024 3.6 [facility] documented in this encounter [facility] 05-16-2024 Telephone encounter Note PAC received faxed outside lab/home meter result for patient via mdINR from Date: 05/14 . Results have been scanned into patient's chart and are located under 'Scanned Documents'. Please note, may take up to 10 minutes for document to transfer from [facility] to [facility]. PT INR (no units) Date Value 05/14/2024 2.4 05/04/2024 1.7 04/28/2024 3.6 [facility] 05-12-2024 Telephone encounter Note Form completed and faxed to [employer] @[phone] Sahye Le May 12, 2024 1:55 PM [facility] 05-12-2024 Miscellaneous Notes Form completed and faxed to [employer] @[phone] Shaye Le May 12, 2024 1:55 PM Forms received. Will complete tomorrow. Shaye Le May 10, 2024 3:38 PM Have not received FMLA paperwork for patient yet. Shaye Le May 09, 2024 1:10 PM Patient states vision is still blurry and eye is swollen. Patient would like to know if will complete FMLA forms. States she would like to have Thursday, Thursday, and Thursday off. Patient is scheduled for a 1 week follow up on 05/11. Patient states she will employer fax forms to our office. Samira Lyons May 05, 2024 4:31 PM documented in this encounter [facility] 05-10-2024 Telephone encounter Note Forms received. Will complete tomorrow. 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 Irregular astigmatism of both eyes -rosacea main culprit (on doxycycline) -patient also with long history of contact lens wear (since ~age 18) with varying habits (previously diagnosed with overwear) -recurrent monthly flare-ups with redness and irritation that responds well to steroid drops Plan: -decreased vision right eye with progression of superior pannus -preservative-free artificial tears four times a day both eyes as needed -switch moxifloxacin (reddy top) to polytrim (white top) 3 times a day right eye -prednisolone (pink cap) three times a day right eye -restasis twice a day left eye only -doxycyline 50mg daily -3-month dissolvable collagen plug size 0.3 placed lower puncta both eyes 11/19/22 -no contact lens wear -follow-up next week for likely bandage contact lens removal / sooner as needed -Dr. Dimas for routine/glasses once surface stabilized I have confirmed and edited as necessary the relevant ophthalmic history, ROS, and the neuro exam findings as obtained by others. I have seen and examined Chavo Tom. I have discussed the case and the management of this patient's care with the Resident/Fellow, if applicable. I also have reviewed and agree with the assessment and plan as stated above and agree with all of its relevant components. Tri Parker MD documented in this encounter [facility] 05-09-2024 Telephone encounter Note Have not received [facility] paperwork for patient yet. Shaye Le May 09, 2024 1:10 PM [facility] 05-09-2024 Telephone encounter Note Prescription Refill Information The patient has been identified by name and date of : Yes Caregiver verified no other encounters exist for this prescription request: Yes Caregiver confirmed with patient/requestor that no other refills are due, in the near future, with this provider at this time: Yes The last office visit in the department: 04/14/24 Does the patient have a future office visit with this provider/department: Yes 07/14/24 Requested Prescriptions Pending Prescriptions Disp Refills metoprolol succinate ER (TOPROL XL) 25 mg 24 hr tablet 45 tablet 3 Sig: Take 1.5 tablets by mouth once daily. Layne Vyas LPN May 09, 2024 9:35 AM [facility] 05-09-2024 Miscellaneous Notes Prescription Refill Information The patient has been identified by name and date of : Yes Caregiver verified no other encounters exist for this prescription request: Yes Caregiver confirmed with patient/requestor that no other refills are due, in the near future, with this provider at this time: Yes The last office visit in the department: 04/14/24 Does the patient have a future office visit with this provider/department: Yes 07/14/24 Requested Prescriptions Pending Prescriptions Disp Refills metoprolol succinate ER (TOPROL XL) 25 mg 24 hr tablet 45 tablet 3 Sig: Take 1.5 tablets by mouth once daily. Layne Vyas LPN May 09, 2024 9:35 AM documented in this encounter [facility] 05-05-2024 Telephone encounter Note Patient states vision is still blurry and eye is swollen. Patient would like to know if will complete FMLA forms. States she would like to have Thursday, Thursday, and Thursday off. Patient is scheduled for a 1 week follow up on 05/11. Patient states she will employer fax forms to our office. Samira Lyons May 05, 2024 4:31 PM [facility] 05-05-2024 Telephone encounter Note [facility]tico[facility] Anticoagulation Episode Summary Anticoagulation Care Providers Provider Role Specialty Phone number Jayjay Ortiz MD Referring Cardiology [phone] Chavo Tom is a 43 year old year old female patient being evaluated today for a Telemanagement visit. Patient is currently on the following anticoagulant(s) Warfarin. Labs PT INR (no units) Date Value 05/04/2024 1.7 04/28/2024 3.6 04/14/2024 1.6 Hemoglobin (g/dL) Date Value 03/03/2024 12.0 05/14/2021 14.4 Hematocrit (%) Date Value 03/03/2024 36.0 05/14/2021 44.4 Platelet Count (k/uL) Date Value 03/03/2024 227 05/14/2021 307 Creatinine (mg/dL) Date Value 03/03/2024 0.69 03/02/2024 0.78 03/01/2024 0.72 05/14/2021 0.83 03/19/2021 0.82 01/07/2021 0.65 Bilirubin, Total (mg/dL) Date Value 02/29/2024 0.8 08/27/2020 0.4 ALT (U/L) Date Value 02/29/2024 30 05/14/2021 33 AST (U/L) Date Value 02/29/2024 62 05/14/2021 26 Estimated Creatinine Clearance: 106.5 mL/min (based on SCr of 0.69 mg/dL). 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 (hcc) halfway (current) use of 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 Anticoagulation Episode Summary Current INR goal: 2.0-3.0 Assessment: INR result of 1.7 is SUBtherapeutic due to: unknown cause - did not speak to patient Plan: Current Warfarin Dosing As of 05/05/2024 Full warfarin instructions: 10 mg every Diane; 7.5 mg all other days Left voice message Advised patient to continue current weekly dose as noted above Next home INR check scheduled on 05/12/2024 Jackie Estrada RPh Clinical Pharmacist, Pharmacy Anticoagulation Clinic Pharmacy Anticoagulation Clinic Pager: [phone]. [facility] 05-05-2024 Miscellaneous Notes [facility]ulatory [facility]acy Anticoagulation Clinic Anticoagulation Episode Summary Anticoagulation Care Providers Provider Role Specialty Phone number Jayjay Ortiz MD Referring Cardiology [phone] Chavo Tom is a 43 year old year old female patient being evaluated today for a Telemanagement visit. Patient is currently on the following anticoagulant(s) Warfarin. Labs PT INR (no units) Date Value 05/04/2024 1.7 04/28/2024 3.6 04/14/2024 1.6 Hemoglobin (g/dL) Date Value 03/03/2024 12.0 05/14/2021 14.4 Hematocrit (%) Date Value 03/03/2024 36.0 05/14/2021 44.4 Platelet Count (k/uL) Date Value 03/03/2024 227 05/14/2021 307 Creatinine (mg/dL) Date Value 03/03/2024 0.69 03/02/2024 0.78 03/01/2024 0.72 05/14/2021 0.83 03/19/2021 0.82 01/07/2021 0.65 Bilirubin, Total (mg/dL) Date Value 02/29/2024 0.8 08/27/2020 0.4 ALT (U/L) Date Value 02/29/2024 30 05/14/2021 33 AST (U/L) Date Value 02/29/2024 62 05/14/2021 26 Estimated Creatinine Clearance: 106.5 mL/min (based on SCr of 0.69 mg/dL). 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 (hcc) halfway (current) use of 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 Anticoagulation Episode Summary Current INR goal: 2.0-3.0 Assessment: INR result of 1.7 is SUBtherapeutic due to: unknown cause - did not speak to patient Plan: Current Warfarin Dosing As of 05/05/2024 Full warfarin instructions: 10 mg every Diane; 7.5 mg all other days Left voice message Advised patient to continue current weekly dose as noted above Next home INR check scheduled on 05/12/2024 Jackie Estrada RPh Clinical Pharmacist, Pharmacy Anticoagulation Clinic Pharmacy Anticoagulation [facility] Pager: [phone]. PAC received faxed outside lab/home meter result for patient via mdINR from Date: 05/04 . Results have been scanned into patient's chart and are located under 'Scanned Documents'. Please note, may take up to 10 minutes for document to transfer [facility]. PT INR (no units) Date Value 05/04/2024 1.7 04/28/2024 3.6 04/14/2024 1.6 [place] [facility] ([facility]) documented in this encounter [facility] 05-05-2024 Telephone encounter Note PAC received faxed outside lab/home meter result for patient via mdINR from Date: 05/04 . Results have been scanned into patient's chart and are located under 'Scanned Documents'. Please note, may take up to 10 minutes for document to transfer from [facility] [employer] to [facility]. PT INR (no units) Date Value 05/04/2024 1.7 04/28/2024 3.6 04/14/2024 1.6 [place] [facility] ([facility] 04-29-2024 Telephone encounter Note Called and left message to inform the patient to arrive at [address] [facility], [address] at 1:45PM for 05/03/24 surgery with Tri Parker MD. Explained that patient is not to arrive any earlier. Also reminded patient to refrain from eating or drinking for 8 hours prior to arrival for surgery Informed that [employer] does not contact them with the arrival time for surgery. If they receive a message from [employer] to confirm an appointment, they are to make sure of the date for the appointment. [facility] 04-29-2024 Miscellaneous Notes Called and left message to inform the patient to arrive at [address], [address] at 1:45PM for 05/03/24 surgery with Tri Parker MD. Explained that patient is not to arrive any earlier. Also reminded patient to refrain from eating or drinking for 8 hours prior to arrival for surgery Informed that [employer] does not contact them with the arrival time for surgery. If they receive a message from [employer] to confirm an appointment, they are to make sure of the date for the appointment. documented in this encounter [facility] 04-28-2024 Telephone encounter Note [facility]ulatory [facility] Anticoagulation Clinic Anticoagulation Episode Summary Anticoagulation Care Providers Provider Role Specialty Phone number Jayjay Ortiz MD Referring Cardiology [phone] Chavo Tom is a 43 year old year old female patient being evaluated today for a Telemanagement visit. Patient is currently on the following anticoagulant(s) Warfarin. Labs PT INR (no units) Date Value 04/28/2024 3.6 04/14/2024 1.6 03/31/2024 1.3 Hemoglobin (g/dL) Date Value 03/03/2024 12.0 05/14/2021 14.4 Hematocrit (%) Date Value 03/03/2024 36.0 05/14/2021 44.4 Platelet Count (k/uL) Date Value 03/03/2024 227 05/14/2021 307 Creatinine (mg/dL) Date Value 03/03/2024 0.69 03/02/2024 0.78 03/01/2024 0.72 05/14/2021 0.83 03/19/2021 0.82 01/07/2021 0.65 Bilirubin, Total (mg/dL) Date Value 02/29/2024 0.8 08/27/2020 0.4 ALT (U/L) Date Value 02/29/2024 30 05/14/2021 33 AST (U/L) Date Value 02/29/2024 62 05/14/2021 26 Estimated Creatinine Clearance: 106.5 mL/min (based on SCr of 0.69 mg/dL). 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 (hcc) halfway (current) use of 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 Anticoagulation Episode Summary Current INR goal: 2.0-3.0 Assessment: INR result of 3.6 is SUPRAtherapeutic due to: unknown cause - did not speak to patient Plan: Current Warfarin Dosing As of 04/28/2024 Full warfarin instructions: 04/28: 7.5 mg; Otherwise 10 mg every Diane; 7.5 mg all other days Left voice message Advised patient to decrease dose for 1 day only then resume weekly regimen Next home INR check scheduled on 05/05/2024 Jackie Estrada RPh Clinical Pharmacist, Pharmacy Anticoagulation Clinic Pharmacy Anticoagulation Clinic Pager: [phone]. [facility] 04-28-2024 Miscellaneous Notes [facility]ulatory [facility] Anticoagulation Clinic Anticoagulation Episode Summary Anticoagulation Care Providers Provider Role Specialty Phone number Jayjay Ortiz MD Referring Cardiology [phone] Chavo Tom is a 43 year old year old female patient being evaluated today for a Telemanagement visit. Patient is currently on the following anticoagulant(s) Warfarin. Labs PT INR (no units) Date Value 04/28/2024 3.6 04/14/2024 1.6 03/31/2024 1.3 Hemoglobin (g/dL) Date Value 03/03/2024 12.0 05/14/2021 14.4 Hematocrit (%) Date Value 03/03/2024 36.0 05/14/2021 44.4 Platelet Count (k/uL) Date Value 03/03/2024 227 05/14/2021 307 Creatinine (mg/dL) Date Value 03/03/2024 0.69 03/02/2024 0.78 03/01/2024 0.72 05/14/2021 0.83 03/19/2021 0.82 01/07/2021 0.65 Bilirubin, Total (mg/dL) Date Value 02/29/2024 0.8 08/27/2020 0.4 ALT (U/L) Date Value 02/29/2024 30 05/14/2021 33 AST (U/L) Date Value 02/29/2024 62 05/14/2021 26 Estimated Creatinine Clearance: 106.5 mL/min (based on SCr of 0.69 mg/dL). 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 (hcc) 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 Anticoagulation Episode Summary Current INR goal: 2.0-3.0 Assessment: INR result of 3.6 is SUPRAtherapeutic due to: unknown cause - did not speak to patient Plan: Current Warfarin Dosing As of 04/28/2024 Full warfarin instructions: 04/28: 7.5 mg; Otherwise 10 mg every Diane; 7.5 mg all other days Left voice message Advised patient to decrease dose for 1 day only then resume weekly regimen Next home INR check scheduled on 05/05/2024 Jackie Estrada [facility] Clinical Pharmacist, Pharmacy Anticoagulation Clinic Pharmacy Anticoagulation Clinic Pager: [phone]. PAC received faxed outside lab/home meter result for patient via mdINR from Date: 04/28 . Results have been scanned into patient's chart and are located under 'Scanned Documents'. Please note, may take up to 10 minutes for document to transfer from [employer] [facility] to [facility]. PT INR (no units) Date Value 04/28/2024 3.6 04/14/2024 1.6 03/31/2024 1.3 [place] [facility] documented in this encounter [facility] 04-28-2024 Telephone encounter Note PAC received faxed outside lab/home meter result for patient via mdINR from Date: 04/28 . Results have been scanned into patient's chart and are located under 'Scanned Documents'. Please note, may take up to 10 minutes for document to transfer from [employer] to [facility]. PT INR (no units) Date Value 04/28/2024 3.6 04/14/2024 1.6 03/31/2024 1.3 [place] [facility] 04-15-2024 History of Present illness Narrative Patient was scheduled for a nutrition appointment today. The patient did not check into their scheduled appointment. I sent the patient a [employer] message encouraging them to reschedule their appointment by calling [phone]. documented in this encounter [facility] 04-14-2024 Telephone encounter Note [facility]ulatory Pharmacy Anticoagulation Clinic Anticoagulation Episode Summary Anticoagulation Care Providers Provider Role Specialty Phone number Jayjay Ortiz MD Referring Cardiology [phone] Chavo Tom is a 43 year old year old female patient being evaluated today for a Telemanagement visit. Patient is currently on the following anticoagulant(s) Warfarin. Labs PT INR (no units) Date Value 04/14/2024 1.6 03/31/2024 1.3 03/24/2024 2.0 Hemoglobin (g/dL) Date Value 03/03/2024 12.0 05/14/2021 14.4 Hematocrit (%) Date Value 03/03/2024 36.0 05/14/2021 44.4 Platelet Count (k/uL) Date Value 03/03/2024 227 05/14/2021 307 Creatinine (mg/dL) Date Value 03/03/2024 0.69 03/02/2024 0.78 03/01/2024 0.72 05/14/2021 0.83 03/19/2021 0.82 01/07/2021 0.65 Bilirubin, Total (mg/dL) Date Value 02/29/2024 0.8 08/27/2020 0.4 ALT (U/L) Date Value 02/29/2024 30 05/14/2021 33 AST (U/L) Date Value 02/29/2024 62 05/14/2021 26 Estimated Creatinine Clearance: 106.5 mL/min (based on SCr of 0.69 mg/dL). ALLERGIES Allergen Reactions Metformin Diarrhea Nsaids (Non-Steroid* Contraindication-Medical Surgical S/p gastric bypass, relative contraindication to NSAIDs Indication for Warfarin: Paroxysmal atrial fibrillation (hcc) 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 Atrial fibrillation, unspecified type (hcc) Anticoagulation Episode Summary Current INR goal: 2.0-3.0 Assessment: INR result of 1.6 is SUBtherapeutic due to: unknown cause - did not speak to patient Plan: Current Warfarin Dosing As of 04/14/2024 Full warfarin instructions: 10 mg every Diane; 7.5 mg all other days Left voice message Advised patient to increase total weekly regimen Next home INR check scheduled on 04/20/2024 Advised pt to Call Coumadin Clinic at [phone] to confirm dosing and follow-up Milla Douglas [facility] Clinical Pharmacist, Pharmacy Anticoagulation Clinic Pharmacy Anticoagulation Clinic Pager: [phone]. [facility] 04-14-2024 Miscellaneous Notes [facility]ulatory Pharm[facility] Anticoagulation Clinic Anticoagulation Episode Summary Anticoagulation Care Providers Provider Role Specialty Phone number Jayjay Ortiz MD Referring Cardiology [phone] Chavo Tom is a 43 year old year old female patient being evaluated today for a Telemanagement visit. Patient is currently on the following anticoagulant(s) Warfarin. Labs PT INR (no units) Date Value 04/14/2024 1.6 03/31/2024 1.3 03/24/2024 2.0 Hemoglobin (g/dL) Date Value 03/03/2024 12.0 05/14/2021 14.4 Hematocrit (%) Date Value 03/03/2024 36.0 05/14/2021 44.4 Platelet Count (k/uL) Date Value 03/03/2024 227 05/14/2021 307 Creatinine (mg/dL) Date Value 03/03/2024 0.69 03/02/2024 0.78 03/01/2024 0.72 05/14/2021 0.83 03/19/2021 0.82 01/07/2021 0.65 Bilirubin, Total (mg/dL) Date Value 02/29/2024 0.8 08/27/2020 0.4 ALT (U/L) Date Value 02/29/2024 30 05/14/2021 33 AST (U/L) Date Value 02/29/2024 62 05/14/2021 26 Estimated Creatinine Clearance: 106.5 mL/min (based on SCr of 0.69 mg/dL). ALLERGIES Allergen Reactions Metformin Diarrhea Nsaids (Non-Steroid* Contraindication-Medical Surgical S/p gastric bypass, relative contraindication to NSAIDs Indication for Warfarin: Paroxysmal atrial fibrillation (hcc) halfway (current) use of 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 Atrial fibrillation, unspecified type (hcc) Anticoagulation Episode Summary Current INR goal: 2.0-3.0 Assessment: INR result of 1.6 is SUBtherapeutic due to: unknown cause - did not speak to patient Plan: Current Warfarin Dosing As of 04/14/2024 Full warfarin instructions: 10 mg every Diane; 7.5 mg all other days Left voice message Advised patient to increase total weekly regimen Next home INR check scheduled on 04/20/2024 Advised pt to Call Coumadin Clinic at [phone] to confirm dosing and follow-up Milla Douglas RPh Clinical Pharmacist, Pharmacy Anticoagulation Clinic Pharmacy Anticoagulation Clinic Pager: [phone]. PAC received faxed outside lab/home meter result for patient via mdINR from Date: 04/14 . Results have been scanned into patient's chart and are located under 'Scanned Documents'. Please note, may take up to 10 minutes for document to transfer from [employer] to [facility]. PT INR (no units) Date Value 04/14/2024 1.6 03/31/2024 1.3 03/24/2024 2.0 [place] [facility] documented in this encounter [facility] 04-14-2024 Telephone encounter Note PAC received faxed outside lab/home meter result for patient via mdINR from Date: 04/14 . Results have been scanned into patient's chart and are located under 'Scanned Documents'. Please note, may take up to 10 minutes for document to transfer from [facility] to [facility]. PT INR (no units) Date Value 04/14/2024 1.6 03/31/2024 1.3 03/24/2024 2.0 [place] [facility] 04-14-2024 Instructions Yissel Atkinson APRN.REGISTERED DIET TECHNICIAN - 04/14/2024 2:00 PM EDT 1) Foods rich in potassium 2) Optimized for surgery 3) [facility] Official reprint from [employer] www.[employer] 2023 [employer] and/or its affiliates. All Rights Reserved. Some foods that are high in potassium Fruits Vegetables Proteins Other Avocado Bananas Coconut Cantaloupe and honeydew melons Dates Dried fruits Figs Kiwi Elberta Nectarines Oranges and orange juice Prunes and prune juice Raisins Artichokes Baked beans Beets Broccoli Colora sprouts Cabbage (raw) Carrots (raw) Chard Olives Potatoes (white and sweet) Pickles Pumpkin Rutabaga Squash (acorn, butternut, amezquita) Tomatoes and tomato juice Black beans Clams Ground beef Kidney beans Lobster Nettie beans [place] beans [place] Sardines Scallops Steak Shepherd Chocolate Dairy products Granola Milk Peanut butter Soups that are salt-free or low-sodium Soy milk Sports drinks Tomato sauce Wheat bran and bran products Whole-grain bread Yogurt The foods on this list are high in potassium. People who need to follow a low-potassium diet should avoid or limit these foods. [employer]ic 64852 Version 3.0 documented in this encounter [facility] 04-14-2024 History of Present illness Narrative PRE-OPERATIVE ASSESSMENT Surgeon: Dr. Parker Type of surgery: Keratectomy right eye Patient scheduled for surgery on 05/04/24. Diagnosis: rosacea keratitis Consultation requested by Dr. Parker for an opinion regarding optimization. My final recommendations will be communicated back to the requesting physician by way of shared Medical record or letter to requesting physician via US mail. 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 Having surgical procedure to help. Allergies: Metformin Diarrhea Nsaids (Non-Steroid* Contraindication-Medical Surgical Comment:S/p gastric bypass, relative contraindication to NSAIDs Current Outpatient Medications Medication Sig cycloSPORINE (RESTASIS) 0.05 % ophthalmic emulsion Use 1 Drop in both eyes two times a day. pantoprazole DR (PROTONIX) 40 mg tablet Take 1 tablet by mouth two times a day before meals at 6 am and 4 pm. sotalol (BETAPACE) 120 mg tablet Take 1 tablet by mouth two times a day. doxycycline (VIBRA-TABS) 100 mg tablet TAKE 1/2 (ONE-HALF) OF A TABLET BY MOUTH TWICE DAILY warfarin (COUMADIN) 5 mg tablet Take 1.5 tablets by mouth once daily. Equally 7.5 mg Daily metoprolol succinate ER (TOPROL XL) 25 mg 24 hr tablet Take 1.5 tablets by mouth once daily. cholecalciferol, vitamin D3, (VITAMIN D3 ORAL) Take by mouth. tacrolimus (PROTOPIC) 0.03 % ointment Apply to affected area twice daily. No current facility-administered medications for this visit. MEDICATIONS AND ALLERGIES REVIEWED. 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 RESP: Denies dyspnea, chronic cough, asthma, bronchitis, COPD, emphysema, and URI < 2 weeks ago. and + sleep apnea- resolved after gastric bypass February 2023 CARD: Patient denies any dyspnea, recent OR, angina, arrhythmias, or valvular disease, and Denies h/o DVT or PE. Hx 3 ablations, folllows with cardiology, on betapace and metoprolol- they be be reducing dosages next month GI: Patient denies any history of GERD, PUD, liver problems or ETOH abuse., Patient denies any history of IBD, IBS, colitis, colorectal cancer, or diarrheal states. Hx of gastric by-pass : No history of disease. RENAL: Denies history of renal insufficiency. ENDO: no history of diabetes, no history of thyroid problems, no history of steroid use HEME: patient denies bleeding, bruising easily, no history of anemia and no history of prior transfusion PSYCHIATRIC: denies history of psychiatric illness and denies eating disorders, denies a history of abuse ANESTHESIA COMPLICATIONS: no reported complications Past Surgical History PAST SURGICAL HISTORY Procedure Laterality Date CARDIOVERSION 08/03/2020 recurrent AF 150-180s. Cardioverted with 150j under sedation DEFIBRILLATOR SURGERY 02/24/2014 ICD, redo WPW & atrial fib ablation EPS: DEFIB. SURGERY 05/16/2021 Exchange of a [employer] SQ-RX 1010 pulse generator with a BOSTON LAP GASTRIC BYPASS/JENNY-EN-Y 02/18/2023 150cmantecolic jenny, 70cm bp limb LAPAROSCOPIC CHOLECYSTECTOMY 05/20/2023 PAST SURGICAL HISTORY OF 07/06/2014 WPW ablation PAST SURGICAL HISTORY OF 11/21/2019 MVr, myectomy, PVI, LAAC TYMPANOSTOMY LOCAL/TOPICAL ANESTHESIA Right PHYSICAL EXAM: BP 100/62 Pulse (!) 44 Wt 71.7 kg (158 lb) LMP 01/06/2012 (Approximate) SpO2 98% BMI 23.95 kg/m Physical Exam GENERAL: Healthy, alert, no distress, cooperative, Smiling SKIN: Skin color, texture, turgor normal. No rashes or lesions. HEENT: PERRL, EOMI, and normal dentition JVD: No jugulovenous distention, No carotid bruits, Carotid pulse normal contour, Supple CARDIAC: Normal S1 and S2; no rubs, murmurs, or gallops, EF WNL- hypertrophic CM w/ Afib and WPW Hx LUNGS: Lungs clear to auscultation, Good diaphragmatic excursion ABDOMEN: Abdomen soft, non-tender, BS normal, No masses or organomegaly EXTREMITIES: Extremities normal, no deformities, edema, clubbing or skin discoloration. Good capillary refill., No ulcers NEURO: Gait normal. Reflexes normal and symmetric. Sensation grossly intact, Cranial nerves II-XII intact PULSES: 2+ radial, 2+ carotid : not examined/not indicated. EKG: Date: 03/01/24 Results: Sinus bradycardia with Left BBB; KNOWN ICD --------- IMPRESSION: Yissel Atkinson APRN.CNP Chavo Tom is a 43 year old female. functional class of IV History: There is no known pertinent medical condition which may affect vickie-operative course Patient has minor clinical predictors of increased perioperative cardiovascular risk. Patient is scheduled for a low-risk procedure. RECOMMENDATIONS: To stay NPO after midnight on the night before surgery. DO NOT EAT after midnight the night before surgery Take the following medications the morning of surgery with a small sip of water: metoprolol and BETAPACE morning of surgery Meds to take on day of surgery: metoprolol and betapace PT TO REMAIN ON WARFARIN This patient is optimally prepared for surgery., follows with cardiology- unable to decrease BETAPACE or metoprolol d/t recurrent Afib with RVR- known bradycardia KNOWN ICD Hx of WPW & hypertrophic CM Yissel Atkinson APRN.GENIE documented in this encounter [facility] 04-11-2024 Telephone encounter Note Contacted patient to reschedule due to provider out of office. [facility] 04-11-2024 Miscellaneous Notes Contacted patient to reschedule due to provider out of office. Type of form: PreOperative Clearance for Dr. Mukesh MD for Keratectomy Right Eye date of surgery is 05/04/2024 Form received via fax When form is completed, Fax form to [phone] Form has been forwarded to Physician Rojas Palma. Patient has an appointment 04/14/24, nurse holding form until appointment. Yissel Atkins LPN documented in this encounter [facility] 03-31-2024 Telephone encounter Note [facility] Anticoagulation Episode Summary Anticoagulation Care Providers Provider Role Specialty Phone number Jayjay Ortiz MD Referring Cardiology [phone] Chavo Tom is a 43 year old year old female patient being evaluated today for a Telemanagement visit. Patient is currently on the following anticoagulant(s) Warfarin. Labs PT INR (no units) Date Value 03/31/2024 1.3 03/24/2024 2.0 03/16/2024 2.7 Hemoglobin (g/dL) Date Value 03/03/2024 12.0 05/14/2021 14.4 Hematocrit (%) Date Value 03/03/2024 36.0 05/14/2021 44.4 Platelet Count (k/uL) Date Value 03/03/2024 227 05/14/2021 307 Creatinine (mg/dL) Date Value 03/03/2024 0.69 03/02/2024 0.78 03/01/2024 0.72 05/14/2021 0.83 03/19/2021 0.82 01/07/2021 0.65 Bilirubin, Total (mg/dL) Date Value 02/29/2024 0.8 08/27/2020 0.4 ALT (U/L) Date Value 02/29/2024 30 05/14/2021 33 AST (U/L) Date Value 02/29/2024 62 05/14/2021 26 Estimated Creatinine Clearance: 106.5 mL/min (based on SCr of 0.69 mg/dL). 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 (hcc) 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 Anticoagulation Episode Summary Current INR goal: 2.0-3.0 Assessment: INR result of 1.3 is SUBtherapeutic due to: unknown cause - did not speak to patient Plan: Current Warfarin Dosing As of 03/31/2024 Full warfarin instructions: 03/31: 10 mg; 04/01: 10 mg; Otherwise 7.5 mg every day Left voice message Advised patient to increase dose for 2 days only then resume weekly regimen Next home INR check scheduled on 04/06/2024 LVM for patient with above information and advised to call PAC at [phone] if any questions or changes to report. Scooby Del Cid RPh Clinical Pharmacist, Pharmacy Anticoagulation Clinic [facility] Pager: [phone]. [facility] 03-31-2024 Miscellaneous Notes [facility] Anticoagulation Episode Summary Anticoagulation Care Providers Provider Role Specialty Phone number Jayjay Ortiz MD Referring Cardiology [phone] Chavo Tom is a 43 year old year old female patient being evaluated today for a Telemanagement visit. Patient is currently on the following anticoagulant(s) Warfarin. Labs PT INR (no units) Date Value 03/31/2024 1.3 03/24/2024 2.0 03/16/2024 2.7 Hemoglobin (g/dL) Date Value 03/03/2024 12.0 05/14/2021 14.4 Hematocrit (%) Date Value 03/03/2024 36.0 05/14/2021 44.4 Platelet Count (k/uL) Date Value 03/03/2024 227 05/14/2021 307 Creatinine (mg/dL) Date Value 03/03/2024 0.69 03/02/2024 0.78 03/01/2024 0.72 05/14/2021 0.83 03/19/2021 0.82 01/07/2021 0.65 Bilirubin, Total (mg/dL) Date Value 02/29/2024 0.8 08/27/2020 0.4 ALT (U/L) Date Value 02/29/2024 30 05/14/2021 33 AST (U/L) Date Value 02/29/2024 62 05/14/2021 26 Estimated Creatinine Clearance: 106.5 mL/min (based on SCr of 0.69 mg/dL). 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 (hcc) 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 Anticoagulation Episode Summary Current INR goal: 2.0-3.0 Assessment: INR result of 1.3 is SUBtherapeutic due to: unknown cause - did not speak to patient Plan: Current Warfarin Dosing As of 03/31/2024 Full warfarin instructions: 03/31: 10 mg; 04/01: 10 mg; Otherwise 7.5 mg every day Left voice message Advised patient to increase dose for 2 days only then resume weekly regimen Next home INR check scheduled on 04/06/2024 LVM for patient with above information and advised to call PAC at [phone] if any questions or changes to report. Scooby Del Cid RPh Clinical Pharmacist, Pharmacy Anticoagulation Clinic Pharmacy Anticoagulation [facility] Pager: [phone]. Received fax from [facility] with INR results for patient. Patient tested on 03/31/2024 and the INR result was 1.3. Fax can be found under scanned documents as miscellaneous lab result. [facility] PT INR (no units) Date Value 03/31/2024 1.3 03/24/2024 2.0 03/16/2024 2.7 Bernardo Zamora, Chief Data Officer (spray gun striper) Pharmacy Anticoagulation Clinic Jose with [facility] reporting patient's INR result today (03/31/2024:) PT INR (no units) Date Value 03/31/2024 1.3 03/24/2024 2.0 03/16/2024 2.7 Bozena Calloway RN Pharmacy Anticoagulation Clinic documented in this encounter [facility] 03-31-2024 Telephone encounter Note Received fax from [facility] with INR results for patient. Patient tested on 03/31/2024 and the INR result was 1.3. Fax can be found under scanned documents as miscellaneous lab result. It may take a few minutes to transfer from [employer]. PT INR (no units) Date Value 03/31/2024 1.3 03/24/2024 2.0 03/16/2024 2.7 Bernardo Zamora, Chief Data Officer (spray gun striper) Pharmacy Anticoagulation Clinic [facility] 03-31-2024 Telephone encounter Note Type of form: PreOperative Clearance for Dr. Mukesh MD for Keratectomy Right Eye date of surgery is 05/04/2024 Form received via fax When form is completed, Fax form to [phone] Form has been forwarded to Physician Rojas Palma. Patient has an appointment 04/14/24, nurse holding form until appointment. Yissel Atkins LPN [facility] 03-31-2024 Telephone encounter Note Jose with [facility] reporting patient's INR result today (03/31/2024:) PT INR (no units) Date Value 03/31/2024 1.3 03/24/2024 2.0 03/16/2024 2.7 Bozena Calloway RN Pharmacy Anticoagulation Clinic [facility] 03-24-2024 Telephone encounter Note [facility] Anticoagulation Episode Summary Anticoagulation Care Providers Provider Role Specialty Phone number Jayjay Ortiz MD Referring Cardiology [phone] Chavo Tom is a 43 year old year old female patient being evaluated today for a Telemanagement visit. Patient is currently on the following anticoagulant(s) Warfarin. Labs PT INR (no units) Date Value 03/24/2024 2.0 03/16/2024 2.7 02/17/2024 1.8 [facility] INR (no units) Date Value 03/03/2024 1.2 03/02/2024 1.2 03/01/2024 1.3 Hemoglobin (g/dL) Date Value 03/03/2024 12.0 05/14/2021 14.4 Hematocrit (%) Date Value 03/03/2024 36.0 05/14/2021 44.4 Platelet Count (k/uL) Date Value 03/03/2024 227 05/14/2021 307 Creatinine (mg/dL) Date Value 03/03/2024 0.69 03/02/2024 0.78 03/01/2024 0.72 05/14/2021 0.83 03/19/2021 0.82 01/07/2021 0.65 Bilirubin, Total (mg/dL) Date Value 02/29/2024 0.8 08/27/2020 0.4 ALT (U/L) Date Value 02/29/2024 30 05/14/2021 33 AST (U/L) Date Value 02/29/2024 62 05/14/2021 26 Estimated Creatinine Clearance: 106.5 mL/min (based on SCr of 0.69 mg/dL). 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 (hcc) 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 Anticoagulation Episode Summary Current INR goal: 2.0-3.0 Assessment: INR result of 2.0 is therapeutic Pt to have eye procedure 05/04, not expected to need to hold warfarin Plan: Current Warfarin Dosing As of 03/24/2024 Full warfarin instructions: 7.5 mg every day Sent Next Games message Advised patient to continue current weekly dose as noted above Next home INR check scheduled on 04/08/2024 Diana Garcia RPh Clinical Pharmacist, Pharmacy Anticoagulation Clinic Pharmacy Anticoagulation Clinic Pager: [phone]. [facility] Work Phone: 03-24-2024 Miscellaneous Notes [facility]tico[facility] Anticoagulation Episode Summary Anticoagulation Care Providers Provider Role Specialty Phone number Jayjay Ortiz MD Referring Cardiology [phone] Chavo Tom is a 43 year old year old female patient being evaluated today for a Telemanagement visit. Patient is currently on the following anticoagulant(s) Warfarin. Labs PT INR (no units) Date Value 03/24/2024 2.0 03/16/2024 2.7 02/17/2024 1.8 mdinr INR (no units) Date Value 03/03/2024 1.2 03/02/2024 1.2 03/01/2024 1.3 Hemoglobin (g/dL) Date Value 03/03/2024 12.0 05/14/2021 14.4 Hematocrit (%) Date Value 03/03/2024 36.0 05/14/2021 44.4 Platelet Count (k/uL) Date Value 03/03/2024 227 05/14/2021 307 Creatinine (mg/dL) Date Value 03/03/2024 0.69 03/02/2024 0.78 03/01/2024 0.72 05/14/2021 0.83 03/19/2021 0.82 01/07/2021 0.65 Bilirubin, Total (mg/dL) Date Value 02/29/2024 0.8 08/27/2020 0.4 ALT (U/L) Date Value 02/29/2024 30 05/14/2021 33 AST (U/L) Date Value 02/29/2024 62 05/14/2021 26 Estimated Creatinine Clearance: 106.5 mL/min (based on SCr of 0.69 mg/dL). 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 (hcc) 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 Anticoagulation Episode Summary Current INR goal: 2.0-3.0 Assessment: INR result of 2.0 is therapeutic Pt to have eye procedure 05/04, not expected to need to hold warfarin Plan: Current Warfarin Dosing As of 03/24/2024 Full warfarin instructions: 7.5 mg every day Sent mychart message Advised patient to continue current weekly dose as noted above Next home INR check scheduled on 04/08/2024 Diana Garcia RPh Clinical Pharmacist, Pharmacy Anticoagulation Clinic Pharmacy Anticoagulation Clinic Pager: [phone]. PAC received faxed outside lab/home meter result for patient via [facility] from Date: 03/24 . Results have been scanned into patient's chart and are located under 'Scanned Documents'. Please note, may take up to 10 minutes for document to transfer from [employer] to [employer]. PT INR (no units) Date Value 03/24/2024 2.0 03/16/2024 2.7 02/17/2024 1.8 mdin[facility] INR (no units) Date Value 03/03/2024 1.2 03/02/2024 1.2 03/01/2024 1.3 Maine Paz ([facility] documented in this encounter [facility] 03-24-2024 Telephone encounter Note PAC received faxed outside lab/home meter result for patient via [facility] from Date: 03/24 . Results have been scanned into patient's chart and are located under 'Scanned Documents'. Please note, may take up to 10 minutes for document to transfer from [employer] [employer] to Epic. PT INR (no units) Date Value 03/24/2024 2.0 03/16/2024 2.7 02/17/2024 1.8 mdinr INR (no units) Date Value 03/03/2024 1.2 03/02/2024 1.2 03/01/2024 1.3 Maine Paz ([facility]) [facility] 03-22-2024 Telephone encounter Note LEFT MESSAGE TO SCHEDULE SX WITH DR. PARKER [facility] 03-22-2024 Miscellaneous Notes LEFT MESSAGE TO SCHEDULE SX WITH DR. PARKER documented in this encounter [facility] 03-17-2024 Telephone encounter Note [facility] Anticoagulation [facility] Anticoagulation Episode Summary Anticoagulation Care Providers Provider Role Specialty Phone number Jayjay Ortiz MD Referring Cardiology [phone] Chavo Tom is a 43 year old year old female patient being evaluated today for a Telemanagement visit. Patient is currently on the following anticoagulant(s) Warfarin. Labs PT INR (no units) Date Value 03/16/2024 2.7 02/17/2024 1.8 mdinr 02/08/2024 3.6 [facility] INR (no units) Date Value 03/03/2024 1.2 03/02/2024 1.2 03/01/2024 1.3 Hemoglobin (g/dL) Date Value 03/03/2024 12.0 05/14/2021 14.4 Hematocrit (%) Date Value 03/03/2024 36.0 05/14/2021 44.4 Platelet Count (k/uL) Date Value 03/03/2024 227 05/14/2021 307 Creatinine (mg/dL) Date Value 03/03/2024 0.69 03/02/2024 0.78 03/01/2024 0.72 05/14/2021 0.83 03/19/2021 0.82 01/07/2021 0.65 Bilirubin, Total (mg/dL) Date Value 02/29/2024 0.8 08/27/2020 0.4 ALT (U/L) Date Value 02/29/2024 30 05/14/2021 33 AST (U/L) Date Value 02/29/2024 62 05/14/2021 26 Estimated Creatinine Clearance: 106.5 mL/min (based on SCr of 0.69 mg/dL). 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 (hcc) halfway (current) use of 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 Anticoagulation Episode Summary Current INR goal: 2.0-3.0 Assessment: INR result of 2.7 is therapeutic Plan: Current Warfarin Dosing As of 03/17/2024 Full warfarin instructions: 7.5 mg every day Sent Next Games message Advised patient to continue current weekly dose as noted above Next home INR check scheduled on 03/31/2024 Patient verbalizes understanding of the plan. Patient denies need for refills. Camryn Markham RPh Clinical Pharmacist, Pharmacy Anticoagulation Clinic Pharmacy Anticoagulation Clinic Pager: [phone]. [facility] 03-17-2024 Miscellaneous Notes [facility]tico[facility] Anticoagulation Episode Summary Anticoagulation Care Providers Provider Role Specialty Phone number Jayjay Ortiz MD Referring Cardiology [phone] Chavo Tom is a 43 year old year old female patient being evaluated today for a Telemanagement visit. Patient is currently on the following anticoagulant(s) Warfarin. Labs PT INR (no units) Date Value 03/16/2024 2.7 02/17/2024 1.8 mdinr 02/08/2024 3.6 [facility] INR (no units) Date Value 03/03/2024 1.2 03/02/2024 1.2 03/01/2024 1.3 Hemoglobin (g/dL) Date Value 03/03/2024 12.0 05/14/2021 14.4 Hematocrit (%) Date Value 03/03/2024 36.0 05/14/2021 44.4 Platelet Count (k/uL) Date Value 03/03/2024 227 05/14/2021 307 Creatinine (mg/dL) Date Value 03/03/2024 0.69 03/02/2024 0.78 03/01/2024 0.72 05/14/2021 0.83 03/19/2021 0.82 01/07/2021 0.65 Bilirubin, Total (mg/dL) Date Value 02/29/2024 0.8 08/27/2020 0.4 ALT (U/L) Date Value 02/29/2024 30 05/14/2021 33 AST (U/L) Date Value 02/29/2024 62 05/14/2021 26 Estimated Creatinine Clearance: 106.5 mL/min (based on SCr of 0.69 mg/dL). 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 (hcc) halfway (current) use of 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 Anticoagulation Episode Summary Current INR goal: 2.0-3.0 Assessment: INR result of 2.7 is therapeutic Plan: Current Warfarin Dosing As of 03/17/2024 Full warfarin instructions: 7.5 mg every day Sent [employer] message Advised patient to continue current weekly dose as noted above Next home INR check scheduled on 03/31/2024 Patient verbalizes understanding of the plan. Patient denies need for refills. Camryn Markham RPh Clinical Pharmacist, Pharmacy Anticoagulation Clinic Pharmacy Anticoagulation Clinic Pager: [phone]. Received fax from [facility] with INR results for patient. Patient tested on 03/16/2024 and the INR result was 2.7. Fax can be found under scanned documents as miscellaneous lab result. [facility] PT INR (no units) Date Value 03/16/2024 2.7 02/17/2024 1.8 mdinr 02/08/2024 3.6 [facility] INR (no units) Date Value 03/03/2024 1.2 03/02/2024 1.2 03/01/2024 1.3 Bernardo Zamora, Chief Data Officer (spray gun striper) Pharmacy Anticoagulation Clinic documented in this encounter [facility] 03-17-2024 Telephone encounter Note Received fax from [facility] with INR results for patient. Patient tested on 03/16/2024 and the INR result was 2.7. Fax can be found under scanned documents as miscellaneous lab result. It may take a few minutes to transfer from [employer]. 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 Irregular astigmatism of both eyes -rosacea main culprit (on doxycycline) -patient also with long history of contact lens wear (since ~age 18) with varying habits (previously diagnosed with overwear) -recurrent monthly flare-ups with redness and irritation that responds well to steroid drops Plan: -decreased vision right eye with progression of superior pannus -preservative-free artificial tears four times a day both eyes -restasis twice a day both eyes -doxycyline 50mg daily -protopic ointment at bedtime -3-month dissolvable collagen plug size 0.3 placed lower puncta both eyes 11/19/22 -no contact lens wear -will victor manuel for superficial keratectomy right eye -Dr. Dimas for routine/glasses once surface stabilized I have confirmed and edited as necessary the relevant ophthalmic history, ROS, and the neuro exam findings as obtained by others. I have seen and examined Chavo Colindres Tyoscar. I have discussed the case and the management of this patient's care with the Resident/Fellow, if applicable. I also have reviewed and agree with the assessment and plan as stated above and agree with all of its relevant components. Tri Parker MD documented in this encounter [facility] 03-10-2024 Telephone encounter Note Chavo Tom was called and reminded to test INR today or as soon as possible. LVMX - VM was self identifiable. Sharon Mejia RPh [facility] Work Phone: 03-10-2024 Miscellaneous Notes Chavo Tom was called and reminded to test INR today or as soon as possible. LVMX - VM was self identifiable. Sharon Mejia RPh Called pt and left a vmx re: d/c today. Pt was started on cytotec, this does not typically interact with warfarin. Advised for pt to follow post d/c instructions on warfarin and test on 03/08. Advised pt to Call Coumadin Clinic at [phone] to confirm and if needed to discuss further Milla Douglas PharmD documented in this encounter [facility] 03-07-2024 History of Present illness Narrative TRANSITION CARE MANAGEMENT (TCM) FOLLOW-UP NOTE Provider Action/RASHARD Cook sent to [facility] 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 Pool PCP TCM follow up scheduled: 03/24/2024 Unable to reach patient, left a message. Discharge Network Status: In-Network Discharge SUMMARY: Pt discharged from main [facility] on Admitted for: marginal ulcer Carolina Glover RN March 07, 2024 2:54 PM documented in this encounter [facility] 03-03-2024 Telephone encounter Note Called pt and left a vmx re: d/c today. Pt was started on cytotec, this does not typically interact with warfarin. Advised for pt to follow post d/c instructions on warfarin and test on 03/08. Advised pt to Call Coumadin Clinic at [phone] to confirm and if needed to discuss further Milla Douglas PharmD [facility] 02-29-2024 Telephone encounter Note Patient reports N/V on Thursday that had subsided over the weekend. N/V recurred today, emesis x 8 times today, unable to tolerate liquids, emesis brown/black in color. Denies abdominal pain. Advised to present to ED for evaluation. Carlos Jarrell General Surgery PGY-5 [facility] Work Phone: 02-29-2024 Miscellaneous Notes Patient reports N/V on Thursday that had subsided over the weekend. N/V recurred today, emesis x 8 times today, unable to tolerate liquids, emesis brown/black in color. Denies abdominal pain. Advised to present to ED for evaluation. Carlos Jarrell General Surgery PGY-5 documented in this encounter [facility] 02-29-2024 Telephone encounter Note Pt stated she had gastric bypass february of last year and she is vomit today (and the other day) brown liquid and nausea. Conference pt to the [facility] [place] code machine operator for care management assistant with paging the on-call provider for Dr. Mercer. GO TO THE EMERGENCY ROOM OR CALL 911 IF: * You develop any new symptoms * Your condition worsens * You are concerned or anxious about your condition for any other reason. If you have any questions, you can call Nurse dynamics ax solution architect back. [facility] 02-29-2024 Miscellaneous Notes Pt stated she had gastric bypass february of last year and she is vomit today (and the other day) brown liquid and nausea. Conference pt to the [facility] [place] code machine operator for care management assistant with paging the on-call provider for Dr. Mercer. GO TO THE EMERGENCY ROOM OR CALL 911 IF: * You develop any new symptoms * Your condition worsens * You are concerned or anxious about your condition for any other reason. If you have any questions, you can call Nurse dynamics ax solution architect back. documented in this encounter [facility] 02-25-2024 History of Present illness Narrative Virtual Visit (Audio/Visual)"I have discussed the nature of this visit with the patient which will occur via [facility] (Phone, Virtual Visit) and she agrees to proceed with this interaction". I have communicated my name and active licensure. The patient's identity and physical location were verified at the time of this visit. Either the patient or their legal area representative has been informed of the risks and benefits of -- and alternatives to -- treatment through a remote evaluation and consents to proceed with the evaluation remotely. Name: Chavo Tom Index Surgery Date of Surgery: 02/18/2023 Surgeon: Surgical Procedure: Lap RYGB Pre-surgical weight: 118.8 kg (262 lb) Override Index Surgery Information? No Other Bariatric Surgeries None Visit: 12 months Today's Visit: Wt 68.5 kg (151 lb) BMI 22.96 kg/m2 BMI 22.96 kg/(m^2) Last Visit: Wt: 70.6 kg (155 lb 9.6 oz) BMI: 23.66 kg/(m^2) Total weight loss: 50.3 kg (111 lb) Emmalena weight: 74.6 kg (164 lb 7 oz) Excess weight: 44.3 kg (97 lb 9 oz) % of excess body weight lost: 50.3 kg (111 lb) (113.77% of excess weight loss) COMPLICATIONS SINCE LAST VISIT?: NONE DIET INTAKE: Not tracking, thinks >100g protein daily Fluid intake: >64 oz 1 protein shake per day DAILY SUPPLEMENTS: Calcium: Calcium Citrate w/ vitamin D (1200 - 1500mg) Multivitamin & Minerals: 1 per day Iron Supplement: 45-60 mg Vitamin B12: B12 complex +C and folic acid Vitamin D3: 50mcg Other: N/A EXERCISE: Gym 3x/week- mainly cardio, has started to incorporate weight training Are you attending any Support Groups? Not known Current Outpatient Medications Medication Sig sotalol (BETAPACE) 120 mg tablet Take 1 tablet by mouth two times a day. doxycycline (VIBRA-TABS) 100 mg tablet TAKE 1/2 (ONE-HALF) OF A TABLET BY MOUTH TWICE DAILY warfarin (COUMADIN) 5 mg tablet Take 1.5 tablets by mouth once daily. Equally 7.5 mg Daily metoprolol succinate ER (TOPROL XL) 25 mg 24 hr tablet Take 1.5 tablets by mouth once daily. cholecalciferol, vitamin D3, (VITAMIN D3 ORAL) Take by mouth. cycloSPORINE (RESTASIS) 0.05 % ophthalmic emulsion Use 1 Drop in both eyes two times a day. tacrolimus (PROTOPIC) 0.03 % ointment Apply to affected area twice daily. No current facility-administered medications for this visit. REVIEW OF SYSTEMS: Denies nausea, vomiting, dumping syndrome, reactive hypoglycemia, gustatory rhinorrhea, Denies abdominal pain, constipation, diarrhea, melena, hematochezia, Denies paresthesias, gait abnormality, fatigue, weakness, lower extremity edema, and Denies taking NSAIDs OBESITY MEDICINE COMORBIDITIES: Obstructive Sleep Apnea: No QUINTON and Pre-diabetes: resolved Vitamin d deficiency - pending labs PHYSICAL EXAM: Deferred, no abdominal issues Assessment A/P: Normal post-OP course Patient Active Problem List Clinical summary Obesity, Class I, BMI 30-34.9 halfway (current) use of 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 S/P gastric bypass History of atrial fibrillation QUINTON (obstructive sleep apnea) Metabolic syndrome Pre-diabetes Vitamin D deficiency, unspecified Patient under care of multiple providers Paroxysmal atrial fibrillation (HCC) Class 3 severe obesity due to excess calories without serious comorbidity with body mass index (BMI) of 45.0 to 49.9 in adult (HCC) Dilated cardiomyopathy (HCC) Left bundle branch block Summary Acute on chronic diastolic (congestive) heart failure (HCC) Pre-op testing Discharge planning issues 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 DISPOSITION: Return Annual to EST/Standard office visit EDUCATION: Encouraged to continue with healthy lifestyle changes and incorporate cardiovascular and resistance training, Discussed weight loss expectations after bariatric and metabolic surgery, Advised PT to avoid NSAIDs, smoking tobacco given increased risk of marginal ulcers, or Discussed importance of protein intake as per the RDN note REFERRALS: N/A LABS: Today: See Epic Orders Alec Nation APRN.GENIE documented in this encounter [facility] 02-18-2024 Telephone encounter Note [facility] Anticoagulation Episode Summary Anticoagulation Care Providers Provider Role Specialty Phone number Jayjay Ortiz MD Referring Cardiology [phone] Chavo Tom is a 43 year old year old female patient being evaluated today for a Telemanagement visit. Patient is currently on the following anticoagulant(s) Warfarin. Labs PT INR (no units) Date Value 02/17/2024 1.8 mdinr 02/08/2024 3.6 mdINR 01/20/2024 2.6 mdinr Hemoglobin (g/dL) Date Value 09/24/2023 12.9 05/14/2021 14.4 Hematocrit (%) Date Value 09/24/2023 41.3 05/14/2021 44.4 Platelet Count (k/uL) Date Value 09/24/2023 414 05/14/2021 307 Creatinine (mg/dL) Date Value 09/24/2023 0.71 08/05/2023 0.68 03/20/2023 0.80 05/14/2021 0.83 03/19/2021 0.82 01/07/2021 0.65 Bilirubin, Total (mg/dL) Date Value 09/24/2023 0.4 08/27/2020 0.4 ALT (U/L) Date Value 09/24/2023 19 05/14/2021 33 AST (U/L) Date Value 09/24/2023 21 05/14/2021 26 Estimated Creatinine Clearance: 103.1 mL/min (based on SCr of 0.71 mg/dL). 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 (hcc) 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 Anticoagulation Episode Summary Current INR goal: 2.0-3.0 Assessment: INR result of 1.8 is SUBtherapeutic due to: unknown cause - did not speak to patient Plan: Current Warfarin Dosing As of 02/18/2024 Full warfarin instructions: 02/17: 10 mg; Otherwise 7.5 mg every day Left voice message Advised patient to increase dose for 1 day only then resume weekly regimen Next home INR check scheduled on 02/24/2024 Advised pt to Call Coumadin Clinic at [phone] to confirm dosing and follow-up Milla Douglas RPh Clinical Pharmacist, Pharmacy Anticoagulation Clinic [facility] Pager: [phone]. [facility] 02-18-2024 Miscellaneous Notes [facility] Anticoagulation Episode Summary Anticoagulation Care Providers Provider Role Specialty Phone number Jayjay Ortiz MD Referring Cardiology [phone] Chavo Tom is a 43 year old year old female patient being evaluated today for a Telemanagement visit. Patient is currently on the following anticoagulant(s) Warfarin. Labs PT INR (no units) Date Value 02/17/2024 1.8 mdinr 02/08/2024 3.6 mdINR 01/20/2024 2.6 mdinr Hemoglobin (g/dL) Date Value 09/24/2023 12.9 05/14/2021 14.4 Hematocrit (%) Date Value 09/24/2023 41.3 05/14/2021 44.4 Platelet Count (k/uL) Date Value 09/24/2023 414 05/14/2021 307 Creatinine (mg/dL) Date Value 09/24/2023 0.71 08/05/2023 0.68 03/20/2023 0.80 05/14/2021 0.83 03/19/2021 0.82 01/07/2021 0.65 Bilirubin, Total (mg/dL) Date Value 09/24/2023 0.4 08/27/2020 0.4 ALT (U/L) Date Value 09/24/2023 19 05/14/2021 33 AST (U/L) Date Value 09/24/2023 21 05/14/2021 26 Estimated Creatinine Clearance: 103.1 mL/min (based on SCr of 0.71 mg/dL). 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 (hcc) halfway (current) use of 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 Anticoagulation Episode Summary Current INR goal: 2.0-3.0 Assessment: INR result of 1.8 is SUBtherapeutic due to: unknown cause - did not speak to patient Plan: Current Warfarin Dosing As of 02/18/2024 Full warfarin instructions: 02/17: 10 mg; Otherwise 7.5 mg every day Left voice message Advised patient to increase dose for 1 day only then resume weekly regimen Next home INR check scheduled on 02/24/2024 Advised pt to Call Coumadin Clinic at [phone] to confirm dosing and follow-up Milla Douglas RPh Clinical Pharmacist, Pharmacy Anticoagulation Clinic Pharmacy [facility] Pager: [phone]. Received fax from [facility] with INR results for patient. Patient tested on 02/17/2024 and the INR result was 1.8. Fax can be found under scanned documents as miscellaneous lab result. It may take a few minutes to transfer from [employer]. PT INR (no units) Date Value 02/17/2024 1.8 mdinr 02/08/2024 3.6 mdINR 01/20/2024 2.6 tony Zamora, Chief Data Officer (spray gun striper) Pharmacy Anticoagulation Clinic documented in this encounter [facility] 02-18-2024 Telephone encounter Note Received fax from [facility] with INR results for patient. Patient tested on 02/17/2024 and the INR result was 1.8. Fax can be found under scanned documents as miscellaneous lab result. [facility] PT INR (no units) Date Value 02/17/2024 1.8 mdinr 02/08/2024 3.6 mdINR 01/20/2024 2.6 mdinr Bernardo Zamora Chief Data Officer (spray gun striper) Pharmacy Anticoagulation Clinic [facility] 02-09-2024 Telephone encounter Note [facility] Anticoagulation Episode Summary Anticoagulation Care Providers Provider Role Specialty Phone number Jayjay Ortiz MD Referring Cardiology [phone] Chavo Tom is a 43 year old year old female patient being evaluated today for a Telemanagement visit. Patient is currently on the following anticoagulant(s) Warfarin. Labs PT INR (no units) Date Value 02/08/2024 3.6 mdINR 01/20/2024 2.6 mdinr 01/14/2024 2.7 mdINR Hemoglobin (g/dL) Date Value 09/24/2023 12.9 05/14/2021 14.4 Hematocrit (%) Date Value 09/24/2023 41.3 05/14/2021 44.4 Platelet Count (k/uL) Date Value 09/24/2023 414 05/14/2021 307 Creatinine (mg/dL) Date Value 09/24/2023 0.71 08/05/2023 0.68 03/20/2023 0.80 05/14/2021 0.83 03/19/2021 0.82 01/07/2021 0.65 Bilirubin, Total (mg/dL) Date Value 09/24/2023 0.4 08/27/2020 0.4 ALT (U/L) Date Value 09/24/2023 19 05/14/2021 33 AST (U/L) Date Value 09/24/2023 21 05/14/2021 26 Estimated Creatinine Clearance: 103.1 mL/min (based on SCr of 0.71 mg/dL). 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 (hcc) halfway (current) use of 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 Anticoagulation Episode Summary Current INR goal: 2.0-3.0 Assessment: INR result of 3.6 mdinr is SUPRAtherapeutic due to: unknown cause - did not speak to patient Plan: Current Warfarin Dosing As of 02/09/2024 Full warfarin instructions: 02/08: 2.5 mg; Otherwise 7.5 mg every day Left voice message Advised patient to decrease dose for 1 day only then resume weekly regimen Next home INR check scheduled on 02/16/2024 Lora Raza RPh Clinical Pharmacist, Pharmacy Anticoagulation Clinic Pharmacy [facility] Pager: [phone]. [facility] 02-09-2024 Miscellaneous Notes [facility]tico[facility] Anticoagulation Episode Summary Anticoagulation Care Providers Provider Role Specialty Phone number Jayjay Ortiz MD Referring Cardiology [phone] Chavo Tom is a 43 year old year old female patient being evaluated today for a Telemanagement visit. Patient is currently on the following anticoagulant(s) Warfarin. Labs PT INR (no units) Date Value 02/08/2024 3.6 mdINR 01/20/2024 2.6 mdinr 01/14/2024 2.7 mdINR Hemoglobin (g/dL) Date Value 09/24/2023 12.9 05/14/2021 14.4 Hematocrit (%) Date Value 09/24/2023 41.3 05/14/2021 44.4 Platelet Count (k/uL) Date Value 09/24/2023 414 05/14/2021 307 Creatinine (mg/dL) Date Value 09/24/2023 0.71 08/05/2023 0.68 03/20/2023 0.80 05/14/2021 0.83 03/19/2021 0.82 01/07/2021 0.65 Bilirubin, Total (mg/dL) Date Value 09/24/2023 0.4 08/27/2020 0.4 ALT (U/L) Date Value 09/24/2023 19 05/14/2021 33 AST (U/L) Date Value 09/24/2023 21 05/14/2021 26 Estimated Creatinine Clearance: 103.1 mL/min (based on SCr of 0.71 mg/dL). 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 (hcc) 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 Anticoagulation Episode Summary Current INR goal: 2.0-3.0 Assessment: INR result of 3.6 mdinr is SUPRAtherapeutic due to: unknown cause - did not speak to patient Plan: Current Warfarin Dosing As of 02/09/2024 Full warfarin instructions: 02/08: 2.5 mg; Otherwise 7.5 mg every day Left voice message Advised patient to decrease dose for 1 day only then resume weekly regimen Next home INR check scheduled on 02/16/2024 Lora Raza RPh Clinical Pharmacist, Pharmacy Anticoagulation Clinic Pharmacy Antico[facility] Pager: [phone]. PAC received faxed outside lab/home meter result for patient from 02/07. Results have been scanned into patient's chart and are located under 'Scanned Documents'. Please note, may take up to 10 minutes for document to transfer from [facility]. PT INR (no units) Date Value 02/08/2024 3.6 mdINR 01/20/2024 2.6 mdinr 01/14/2024 2.7 mdINR Maine Paz CPhT (Chief Data Officer) Pharmacy Anticoagulation Clinic documented in this encounter [facility] 02-09-2024 Telephone encounter Note PAC received faxed outside lab/home meter result for patient from 02/07. Results have been scanned into patient's chart and are located under 'Scanned Documents'. Please note, may take up to 10 minutes for document to transfer from [facility] to [facility]. PT INR (no units) Date Value 02/08/2024 3.6 mdINR 01/20/2024 2.6 mdinr 01/14/2024 2.7 mdINR Maine Paz CPhT (Chief Data Officer) Pharmacy Anticoagulation Clinic [facility] 02-04-2024 Note SUBQ ICD EVALUATION: PRESENTING: SR BATTERY STATUS: Remaining battery life to SYDNEY is 70% ELECTRODE: OK. ARRHYTHMIAS: There have not been any ventricular detections or therapy delivered since the last evaluation. SMART PASS: ON FOLLOW UP: Continue remote transmissions every 3 months and yearly in-clinic visits. Penelope Lenz RN NOTE TO PROVIDERS: "CARD" Flowsheets contain detailed device programming and testing data. Paceart/Interrogation PDF can be found under CARDIAC DATA AND REPORT, "Scanned Documents" section. [facility] 01-20-2024 Miscellaneous Notes [facility]tico[facility] Anticoagulation Episode Summary Anticoagulation Care Providers Provider Role Specialty Phone number Jayjay Ortzi MD Referring Cardiology [phone] Chavo Tom is a 43 year old year old female patient being evaluated today for a Telemanagement visit. Patient is currently on the following anticoagulant(s) Warfarin. Labs PT INR (no units) Date Value 01/20/2024 2.6 mdinr 01/14/2024 2.7 mdINR 01/01/2024 2.5 mdinr Hemoglobin (g/dL) Date Value 09/24/2023 12.9 05/14/2021 14.4 Hematocrit (%) Date Value 09/24/2023 41.3 05/14/2021 44.4 Platelet Count (k/uL) Date Value 09/24/2023 414 05/14/2021 307 Creatinine (mg/dL) Date Value 09/24/2023 0.71 08/05/2023 0.68 03/20/2023 0.80 05/14/2021 0.83 03/19/2021 0.82 01/07/2021 0.65 Bilirubin, Total (mg/dL) Date Value 09/24/2023 0.4 08/27/2020 0.4 ALT (U/L) Date Value 09/24/2023 19 05/14/2021 33 AST (U/L) Date Value 09/24/2023 21 05/14/2021 26 Estimated Creatinine Clearance: 103.1 mL/min (based on SCr of 0.71 mg/dL). 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 (hcc) halfway (current) use of 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 Anticoagulation Episode Summary Current INR goal: 2.0-3.0 Assessment: INR result of 2.6 is therapeutic Plan: Current Warfarin Dosing As of 01/20/2024 Full warfarin instructions: 7.5 mg every day Sent [employer] message Advised patient to continue current weekly dose as noted above Next home INR check scheduled on 02/03/2024 Milla Douglas RPh Clinical Pharmacist, Pharmacy Anticoagulation Clinic Pharmacy [facility] Pager: [phone]. Received fax from [facility] with INR results for patient. Patient tested on 01/20/2024 and the INR result was 2.6. Fax can be found under scanned documents as miscellaneous lab result. It may take a few minutes to transfer from [employer]. PT INR (no units) Date Value 01/20/2024 2.6 mdinr 01/14/2024 2.7 mdINR 01/01/2024 2.5 mdinr eBrnardo Zamora, Chief Data Officer (spray gun striper) Pharmacy Anticoagulation Clinic documented in this encounter [facility] 01-14-2024 Miscellaneous Notes [facility]tico[facility] Anticoagulation Episode Summary Anticoagulation Care Providers Provider Role Specialty Phone number Jayjay Ortiz MD Referring Cardiology [phone] Chavo Tom is a 43 year old year old female patient being evaluated today for a Telemanagement visit. Patient is currently on the following anticoagulant(s) Warfarin. Labs PT INR (no units) Date Value 01/14/2024 2.7 mdINR 01/01/2024 2.5 mdinr 12/23/2023 3.7 MDINR Hemoglobin (g/dL) Date Value 09/24/2023 12.9 05/14/2021 14.4 Hematocrit (%) Date Value 09/24/2023 41.3 05/14/2021 44.4 Platelet Count (k/uL) Date Value 09/24/2023 414 05/14/2021 307 Creatinine (mg/dL) Date Value 09/24/2023 0.71 08/05/2023 0.68 03/20/2023 0.80 05/14/2021 0.83 03/19/2021 0.82 01/07/2021 0.65 Bilirubin, Total (mg/dL) Date Value 09/24/2023 0.4 08/27/2020 0.4 ALT (U/L) Date Value 09/24/2023 19 05/14/2021 33 AST (U/L) Date Value 09/24/2023 21 05/14/2021 26 Estimated Creatinine Clearance: 103.1 mL/min (based on SCr of 0.71 mg/dL). ALLERGIES Allergen Reactions Metformin Diarrhea Nsaids (Non-Steroid* Contraindication-Medical Surgical S/p gastric bypass, relative contraindication to NSAIDs Indication for Warfarin: Paroxysmal atrial fibrillation (hcc) halfway (current) use of 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 Atrial fibrillation, unspecified type (hcc) Anticoagulation Episode Summary Current INR goal: 2.0-3.0 Assessment: INR result of 2.7 mdinr is therapeutic Plan: Current Warfarin Dosing As of 01/14/2024 Full warfarin instructions: 7.5 mg every day Sent [employer] message Advised patient to continue current weekly dose as noted above Next home INR check scheduled on 01/29/2024 Milla Douglas RPh Clinical Pharmacist, Pharmacy Anticoagulation Clinic Pharmacy Antico[facility] Pager: [phone]. PAC received faxed outside lab/home meter result for patient from 01/13. Results have been scanned into patient's chart and are located under 'Scanned Documents'. Please note, may take up to 10 minutes for document to transfer from [facility] to [facility]. PT INR (no units) Date Value 01/14/2024 2.7 mdINR 01/01/2024 2.5 mdinr 12/23/2023 3.7 MDINR Maine Paz CPhT (Chief Data Officer) Pharmacy Anticoagulation Clinic documented in this encounter [facility] 01-14-2024 History of Present illness Narrative Name: Chavo Tom Index Surgery Date of Surgery: 2022 Surgeon: Ruslan Surgical Procedure: Lap RYGB Pre-surgical weight: 118.8 kg (262 lb) Other Bariatric Surgeries None Visit: 1 year Today's Visit: BP 93/60 Pulse 46 Ht 5' 7.992" (1.73m) Wt 155 lb 9.6 oz (70.6kg) LMP 01/06/2012 BMI 23.66 kg/(m^2). BMI 23.66 kg/(m^2) Last Visit: Wt: 71.7 kg (158 lb) BMI: 24.02 kg/(m^2) Total weight loss: 104 pounds Emmalena weight: 74.6 kg (164 lb 7 oz) Excess weight: 44.3 kg (97 lb 9 oz) % of excess body weight lost: 118.8 kg (262 lb) (268.55% of excess weight loss) COMPLICATIONS SINCE LAST VISIT?: NONE DIET INTAKE: tolerates Phase V diet DAILY SUPPLEMENTS: Bariatric Pal, and calcium with vitamin D chews Calcium: Calcium Citrate w/ vitamin D (1200 - 1500mg) Multivitamin & Minerals: 1 per day Iron Supplement: included in multi-vitamin Vitamin B12: extra supplementation Vitamin D3: included in multi-vitamin Other: No EXERCISE: gym 3 days per week Are you attending any Support Groups? Not known Current Outpatient Medications Medication Sig sotalol (BETAPACE) 80 mg tablet Take 1 tablet by mouth two times a day. doxycycline (VIBRA-TABS) 100 mg tablet TAKE 1/2 (ONE-HALF) OF A TABLET BY MOUTH TWICE DAILY warfarin (COUMADIN) 5 mg tablet Take 1.5 tablets by mouth once daily. Equally 7.5 mg Daily metoprolol succinate ER (TOPROL XL) 25 mg 24 hr tablet Take 1.5 tablets by mouth once daily. cycloSPORINE (RESTASIS) 0.05 % ophthalmic emulsion Use 1 Drop in both eyes two times a day. cholecalciferol, vitamin D3, (VITAMIN D3 ORAL) Take by mouth. tacrolimus (PROTOPIC) 0.03 % ointment Apply to affected area twice daily. No current facility-administered medications for this visit. REVIEW OF SYSTEMS: Denies nausea, vomiting, dumping syndrome, reactive hypoglycemia, gustatory rhinorrhea, Denies abdominal pain, constipation, diarrhea, melena, hematochezia, Denies paresthesias, gait abnormality, fatigue, weakness, lower extremity edema, and Denies taking NSAIDs OBESITY MEDICINE COMORBIDITIES: Obstructive Sleep Apnea: No QUINTON and Pre-diabetes: resolved Vitamin d deficiency - pending labs No longer taking PPI Recently had dose of metoprolol reduced, at next cardiology evaluation will consider taking off metoprolol to sotalol only. PHYSICAL EXAM: GENERAL: Alert, no distress, cooperative LUNGS: Lungs clear to auscultation, Good diaphragmatic excursion CARDIAC: Normal S1 and S2; no rubs, murmurs, or gallops ABDOMEN: Abdomen soft, non-tender, BS normal, No masses or organomegaly EXTREMITIES: Extremities normal, no deformities, edema, clubbing or skin discoloration. Good capillary refill., No ulcers WOUND: Clean, dry and intact Assessment A/P: Normal post-OP course Patient Active Problem List Clinical summary Obesity, Class I, BMI 30-34.9 halfway (current) use of 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 S/P gastric bypass History of atrial fibrillation QUINTON (obstructive sleep apnea) Metabolic syndrome Pre-diabetes Vitamin D deficiency, unspecified Patient under care of multiple providers Paroxysmal atrial fibrillation (HCC) Class 3 severe obesity due to excess calories without serious comorbidity with body mass index (BMI) of 45.0 to 49.9 in adult (HCC) Dilated cardiomyopathy (HCC) Left bundle branch block Summary Acute on chronic diastolic (congestive) heart failure (HCC) Pre-op testing Discharge planning issues ICD (implantable cardioverter-defibrillator) in place Bukeu-Xszumsrcz-Mghjr (WPW) syndrome Body mass index 40.0-44.9, adult (HCC) Atrial fibrillation (HCC) HOCM (hypertrophic obstructive cardiomyopathy) ([facility]) S/P ablation of accessory bypass tract Syncope Ventricular tachyarrhythmia ([facility]) Palpitation Vaginal high risk HPV DNA test positive Impaired glucose tolerance Resolved Hospital Problems No resolved problems to display. DISPOSITION: Return Other for 1 year visit with obesity medicine EDUCATION: Encouraged to continue with healthy lifestyle changes and incorporate cardiovascular and resistance training, Discussed weight loss expectations after bariatric and metabolic surgery, Advised PT to avoid NSAIDs, smoking tobacco given increased risk of marginal ulcers -Added NSAIDs as medical contraindication to her allergy list. REFERRALS: N/A LABS: Today: To be completed in 1 year time point Esperanza Mercer MD 01/14/2024 documented in this encounter [facility] 12-28-2023 History of Present illness Narrative Images from the original note were not included. [facility] [place] [facility] Department of Cardiovascular Medicine SECTION OF CARDIAC PACING and ELECTROPHYSIOLOGY OUTPATIENT VISIT DATE December 28, 2023 OUTPATIENT VISIT TYPE ESTABLISHED PRIMARY CARE PHYSICIAN: Kylah Palma [address] [place] [address] REFERRING PHYSICIAN: No referring provider defined for this encounter. CHIEF COMPLAINT: VT IMPRESSION/PLAN: Chavo Tom is a very pleasant female patient with a past medical history significant for hypertrophic cardiomyopathy with mid cavitary obstruction status post myectomy, mitral valve repair and reorientation of the papillary muscles, left bundle branch block, WPW status post ablation, and paroxysmal atrial fibrillation status post subcutaneous ICD. Hypertrophic cardiomyopathy: She is managed by Dr. Tay. Her subcutaneous days ICD is functioning appropriately. Her last ejection fraction was 70% despite the left bundle branch block. Persistent atrial fibrillation: Doing well with infrequent recurrences on sotalol. CVA prophylaxis: She has a history of hypertrophic cardiomyopathy and is managed with apixaban. HPI: She lost considerable weight with bariatric surgery of the past year. She has noted that coverage over the SICD is much less without weight loss. She denies any signs of infection locally or systemically. NURSING INTAKE HISTORY: Chavo Tom is a 43 y/o female who presents for follow up for device management s/p Sub-Q ICD change 05/16/2021. 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 She underwent drug loading with Sotalol from 08/27/20 - 08/30/20 for recurrent atrial fibrillation. She underwent Jenny-en-y gastric bypass 02/2023. She reports she has been doing well. She reports she can have break through atrial fibrillation around once every 3-4 months. Last in 06/2023, she reports she was seen at [place] [facility] and self converted prior to any treatment. She denies chest pain, shortness of breath, lightheadedness or syncope. She notes that since she has had significant weight loss after surgery her Sub-Q ICD is more pronounced and her arm rubs against it more than it did before. She denies any pain at her device site. PAST MEDICAL HISTORY Diagnosis Date Atrial fibrillation (HCC) CHADS score 0 Cardiomyopathy (HCC) 02/24/14 Family history of hypertrophic cardiomyopathy 01/18/2014 Impaired glucose tolerance 01/21/2011 Left bundle branch block Obesity S/P gastric bypass 02/18/2023 Sleep apnea Thyroid nodule, cold 04/12/2018 10/15/2020 US 4mm right nodule: no f/u recommended 12/10/16 US right nodule smaller: Heterogeneous solid nodule mid pole 6 x 4 x 5 mm01/27/14 US:hypoechoic 9 x 5 x 6mm nodule anteriorly at the mid right lobe 03/14/[address] Gama Rubin: felt nodule smaller, did not recommend KE 02/09/14 NM uptake scan: hypo-functoning thyroid nodule right mid-lobe Ventricular tachyarrhythmia (HCC) 02/2014 Oyodz-Dymfzqkou-Vnwpe (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 Cardioverted with 150j under sedation DEFIBRILLATOR SURGERY 02/24/2014 ICD, redo WPW & atrial fib ablation EPS: DEFIB. SURGERY 05/16/2021 Exchange of a SamEnrico SQ-RX 1010 pulse generator with a No Paper Just Vapor LAP GASTRIC BYPASS/JENNY-EN-Y 02/18/2023 150cmantecolic jenny, 70cm bp limb LAPAROSCOPIC CHOLECYSTECTOMY 05/20/2023 PAST SURGICAL HISTORY OF 07/06/2014 WPW ablation PAST SURGICAL HISTORY OF 11/21/2019 MVr, myectomy, PVI, LAAC TYMPANOSTOMY LOCAL/TOPICAL ANESTHESIA Right SOCIAL HISTORY Social History Tobacco Use Smoking status: Never Smokeless tobacco: Never Vaping Use Vaping Use: Never used Substance Use Topics Alcohol use: No Drug use: No FAMILY HISTORY Problem Relation Age of Onset Lipids Father Diabetes Mother Hypertension Mother Thyroid Mother Coronary Artery Disease Mother CABG 2012 Diabetes Brother Heart Sister HOCM s/p ICD None Maternal Grandfather age 46-"suddenly" Heart Maternal Grandmother OR age 72 Alcohol/Drug Paternal Grandfather ETOH Diabetes Maternal Aunt Diabetes Maternal Uncle Colon Cancer No Family History Anesthesia Problems No Family History ALLERGIES: ALLERGIES Allergen Reactions Metformin Diarrhea MEDICATIONS: doxycycline (VIBRA-TABS) 100 mg tablet TAKE 1/2 (ONE-HALF) OF A TABLET BY MOUTH TWICE DAILY warfarin (COUMADIN) 5 mg tablet Take 1.5 tablets by mouth once daily. Equally 7.5 mg Daily metoprolol succinate ER (TOPROL XL) 25 mg 24 hr tablet Take 1.5 tablets by mouth once daily. sotalol (BETAPACE) 120 mg tablet Take 1 tablet by mouth two times a day. cycloSPORINE (RESTASIS) 0.05 % ophthalmic emulsion Use 1 Drop in both eyes two times a day. cholecalciferol, vitamin D3, (VITAMIN D3 ORAL) Take by mouth. tacrolimus (PROTOPIC) 0.03 % ointment Apply to affected area twice daily. Trudy Gamez RN PHYSICAL EXAMINATION: BP 113/73 Pulse (!) 46 Ht 172.7 cm (5' 8") Wt 71.7 kg (158 lb) LMP 01/06/2012 (Approximate) BMI 24.02 kg/m Physical Exam Constitutional: Appearance: Normal appearance. She is well-developed. HENT: Head: Normocephalic and atraumatic. Eyes: General: No scleral icterus. Conjunctiva/sclera: Conjunctivae normal. Neck: Vascular: No JVD. Cardiovascular: Rate and Rhythm: Normal rate and regular rhythm. Pulmonary: Effort: Pulmonary effort is normal. Musculoskeletal: General: No deformity. Skin: General: Skin is dry. Neurological: Mental Status: She is alert. DATA: (The following studies were reviewed personally) Today's EKG SUBQ ICD EVALUATION: 12/28/2023 RHYTHM: SB 42 bpm. BATTERY STATUS: 71% remaining until SYDNEY. LEAD ELECTRODE: OK. The lead measured 40 Ohms today. SMART PASS: ON. Performed a capture of all sensed vectors today. The device remains programmed appropriately in the Primary vector. IMPLANT SITE/ SYMPTOMS: The incision and pocket are pain-free (0/10), well healed and without signs of erosion or infection. ARRHYTHMIAS: There have not been any ventricular detections or therapy delivered since the last evaluation. FOLLOW UP: Will continue with remote transmissions every 3 months and yearly in-clinic visits. Jass Chaves RN Echo 10/22/2022 CONCLUSIONS: - Technically difficult exam due to body habitus. - Exam indication: HOCM - The left ventricle is normal in size. There is left ventricular hypertrophy. Left ventricular systolic function is normal. EF = 70 5% (2D biplane) Normal left ventricular diastolic function. - The right ventricle is normal in size. Right ventricular systolic function is normal. At rest, there is no mitral leaflet ALDO, mild chordeal ALDO, 1+MR, Peak LVOT gradient 5 mmHg. There was no significant change with Valsalva (peak LVOT gradient 10 mmHg). No Amyl given. - Incidental well circumscribed liver lesion, more prominent on current study compared to prior. (clips [id number], [id number]) - Exam was compared with the prior echocardiographic exam performed on 03/19/2021. Incidental finding as above; otherwise, no significant change. This note was created using computerized museum educator software and may therefore include some museum educator errors including errors in gender and inappropriate words or phrases. I reviewed old records, obtained relevant HPI and PMH from the pt, examined the patient and created the above report. Oneyda Recinos MD December 28, 2023 Note to: Primary Care Physician Kylah Palma [address] [place] [address] Jayjay Ortiz MD [id number] [facility] [id number] documented in this encounter [facility] 12-23-2023 Miscellaneous Notes [facility]tico[facility] Anticoagulation Episode Summary Anticoagulation Care Providers Provider Role Specialty Phone number Jayjay Ortiz MD Referring Cardiology [phone] Chavo Tom is a 43 year old year old female patient being evaluated today for a Telemanagement visit. Patient is currently on the following anticoagulant(s) Warfarin. Labs PT INR (no units) Date Value 12/23/2023 3.7 MDINR 12/16/2023 2.3 mdINR 12/10/2023 1.2 mdINR Hemoglobin (g/dL) Date Value 09/24/2023 12.9 05/14/2021 14.4 Hematocrit (%) Date Value 09/24/2023 41.3 05/14/2021 44.4 Platelet Count (k/uL) Date Value 09/24/2023 414 05/14/2021 307 Creatinine (mg/dL) Date Value 09/24/2023 0.71 08/05/2023 0.68 03/20/2023 0.80 05/14/2021 0.83 03/19/2021 0.82 01/07/2021 0.65 Bilirubin, Total (mg/dL) Date Value 09/24/2023 0.4 08/27/2020 0.4 ALT (U/L) Date Value 09/24/2023 19 05/14/2021 33 AST (U/L) Date Value 09/24/2023 21 05/14/2021 26 CrCl cannot be calculated (Unknown ideal weight.). ALLERGIES Allergen Reactions Metformin Diarrhea Indication for Warfarin: Atrial fibrillation, unspecified type (hcc) Paroxysmal atrial fibrillation (hcc) halfway (current) use of 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 Anticoagulation Episode Summary Current INR goal: 2.0-3.0 Assessment: INR result of 3.7 mdinr is SUPRAtherapeutic due to: Medication change or drug interaction- pt resumed doxycycline takes 1/2 tablet daily as maintenance Plan: Current Warfarin Dosing As of 12/23/2023 Full warfarin instructions: 12/22: 2.5 mg; Otherwise 7.5 mg every day Called and spoke to patient/caregiver Advised patient to decrease dose for 1 day only then resume weekly regimen Next home INR check scheduled on 12/30/2023 Patient verbalizes understanding of the plan. Patient denies need for refills. Milla Douglas RPh Clinical Pharmacist, Pharmacy Anticoagulation Clinic [facility] Pager: [phone]. Received fax from [facility] with INR results for patient. Patient tested on 12/23/2023 and the INR result was 3.7. Fax can be found under scanned documents as miscellaneous lab result. [facility] PT INR (no units) Date Value 12/23/2023 3.7 MDINR 12/16/2023 2.3 mdINR 12/10/2023 1.2 mdINR Bernardo Zamora, Chief Data Officer (spray gun striper) Pharmacy Anticoagulation Clinic documented in this encounter [facility] 12-16-2023 Miscellaneous Notes [facility] Anticoagulation Episode Summary Anticoagulation Care Providers Provider Role Specialty Phone number Jayjay Ortiz MD Referring Cardiology [phone] Chavo Tom is a 43 year old year old female patient being evaluated today for a Telemanagement visit. Patient is currently on the following anticoagulant(s) Warfarin. Labs PT INR (no units) Date Value 12/16/2023 2.3 mdINR 12/10/2023 1.2 mdINR 12/03/2023 2.3 mdINR Hemoglobin (g/dL) Date Value 09/24/2023 12.9 05/14/2021 14.4 Hematocrit (%) Date Value 09/24/2023 41.3 05/14/2021 44.4 Platelet Count (k/uL) Date Value 09/24/2023 414 05/14/2021 307 Creatinine (mg/dL) Date Value 09/24/2023 0.71 08/05/2023 0.68 03/20/2023 0.80 05/14/2021 0.83 03/19/2021 0.82 01/07/2021 0.65 Bilirubin, Total (mg/dL) Date Value 09/24/2023 0.4 08/27/2020 0.4 ALT (U/L) Date Value 09/24/2023 19 05/14/2021 33 AST (U/L) Date Value 09/24/2023 21 05/14/2021 26 Estimated Creatinine Clearance: 103.1 mL/min (based on SCr of 0.71 mg/dL). 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 Atrial fibrillation, unspecified type (hcc) Anticoagulation Episode Summary Current INR goal: 2.0-3.0 Assessment: INR result of 2.3 mdinr is therapeutic Plan: Current Warfarin Dosing As of 12/16/2023 Full warfarin instructions: 7.5 mg every day Left voice message and sent [employer] message Advised patient to continue current weekly dose as noted above Next home INR check scheduled on 12/23/2023 Milla Douglas RPh Clinical Pharmacist, Pharmacy Anticoagulation Clinic Pharm[facility] Pager: [phone]. PAC received faxed outside lab/home meter result for patient from 12/15. Results have been scanned into patient's chart and are located under 'Scanned Documents'. Please note, may take up to 10 minutes for document to transfer from [facility] to [facility]. PT INR (no units) Date Value 12/16/2023 2.3 mdINR 12/10/2023 1.2 mdINR 12/03/2023 2.3 mdINR Maine Paz CPhT (Chief Data Officer) Pharmacy Anticoagulation Clinic documented in this encounter [facility] 12-15-2023 Miscellaneous Notes Patient has been identified by name and date of : Yes, Provider Stephany Date 12.15.23 Time 1200 Patient phones for refill(s): Requested Prescriptions Pending Prescriptions Disp Refills doxycycline (VIBRA-TABS) 100 mg tablet Date of last office visit in primary care: 09/24/2023 Date of next office visit in primary care: 03/24/2024 Please advise. Thank you. Ly Madrigal. documented in this encounter [facility] 12-14-2023 Miscellaneous Notes Left pt a VM message with the same information below again and requesting her to call our clinic at [phone]. Scooby Del Cid RPh Left pt a VM message with the same information below again and requesting her to call our clinic at [phone]. Will also send a [employer] message. PATIENT CALL Received call from Belia with [employer] to report home meter result for patient. [facility] has already addressed this result (see below); nothing further needed at this time. Maine Paz CPhT (Chief Data Officer) Pharmacy Anticoagulation Clinic [facility] Anticoagulation Episode Summary Anticoagulation Care Providers Provider Role Specialty Phone number Jayjay Ortiz MD Referring Cardiology [phone] Chavo Tom is a 43 year old year old female patient being evaluated today for a Telemanagement visit. Patient is currently on the following anticoagulant(s) Warfarin. Labs PT INR (no units) Date Value 12/10/2023 1.2 mdINR 12/03/2023 2.3 mdINR 11/28/2023 2.3 mdINR Hemoglobin (g/dL) Date Value 09/24/2023 12.9 05/14/2021 14.4 Hematocrit (%) Date Value 09/24/2023 41.3 05/14/2021 44.4 Platelet Count (k/uL) Date Value 09/24/2023 414 05/14/2021 307 Creatinine (mg/dL) Date Value 09/24/2023 0.71 08/05/2023 0.68 03/20/2023 0.80 05/14/2021 0.83 03/19/2021 0.82 01/07/2021 0.65 Bilirubin, Total (mg/dL) Date Value 09/24/2023 0.4 08/27/2020 0.4 ALT (U/L) Date Value 09/24/2023 19 05/14/2021 33 AST (U/L) Date Value 09/24/2023 21 05/14/2021 26 Estimated Creatinine Clearance: 103.1 mL/min (based on SCr of 0.71 mg/dL). 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 Atrial fibrillation, unspecified type (hcc) Anticoagulation Episode Summary Current INR goal: 2.0-3.0 Assessment: INR result of 1.2 mdinr is SUBtherapeutic due to: unknown cause - did not speak to patient Plan: Current Warfarin Dosing As of 12/10/2023 Full warfarin instructions: 12/09: 10 mg; 12/10: 10 mg; Otherwise 7.5 mg every day Left voice message Advised patient to increase dose for 2 days and call us back to discuss further dosing Milla Douglas RPh Clinical Pharmacist, Pharmacy Anticoagulation Clinic Pharmacy Anticoagulation Clinic Pager: [phone]. PAC received faxed outside lab/home meter result for patient from 12/09. Results have been scanned into patient's chart and are located under 'Scanned Documents'. Please note, may take up to 10 minutes for document to transfer [facility]. PT INR (no units) Date Value 12/10/2023 1.2 mdINR 12/03/2023 2.3 mdINR 11/28/2023 2.3 mdINR Maine Paz CPhT (Chief Data Officer) Pharmacy Anticoagulation Clinic documented in this encounter [facility] 12-07-2023 Miscellaneous Notes Patient calls and states that she currently is at pharmacy. Medication was never sent to pharmacy. Patient has not had any medication for a couple of days. Please review and advise, Camilla Dinero RN documented in this encounter [facility] 12-03-2023 Miscellaneous Notes [facility] Anticoagulation Clinic Anticoagulation Episode Summary Anticoagulation Care Providers Provider Role Specialty Phone number Jayjay Ortiz MD Referring Cardiology [phone] Chavo Tom is a 43 year old year old female patient being evaluated today for a Telemanagement visit. Patient is currently on the following anticoagulant(s) Warfarin. Labs PT INR (no units) Date Value 12/03/2023 2.3 mdINR 11/28/2023 2.3 mdINR 11/18/2023 2.0 mdINR Hemoglobin (g/dL) Date Value 09/24/2023 12.9 05/14/2021 14.4 Hematocrit (%) Date Value 09/24/2023 41.3 05/14/2021 44.4 Platelet Count (k/uL) Date Value 09/24/2023 414 05/14/2021 307 Creatinine (mg/dL) Date Value 09/24/2023 0.71 08/05/2023 0.68 03/20/2023 0.80 05/14/2021 0.83 03/19/2021 0.82 01/07/2021 0.65 Bilirubin, Total (mg/dL) Date Value 09/24/2023 0.4 08/27/2020 0.4 ALT (U/L) Date Value 09/24/2023 19 05/14/2021 33 AST (U/L) Date Value 09/24/2023 21 05/14/2021 26 Estimated Creatinine Clearance: 103.1 mL/min (based on SCr of 0.71 mg/dL). 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 (hcc) halfway (current) use of 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 Anticoagulation Episode Summary Current INR goal: 2.0-3.0 Assessment: INR result of 2.3 mdinr is therapeutic Plan: Current Warfarin Dosing As of 12/03/2023 Full warfarin instructions: 7.5 mg every day Sent [employer] message Advised patient to continue current weekly dose as noted above Next home INR check scheduled on 12/10/2023 Jackie Estrada RPh Clinical Pharmacist, Pharmacy Anticoagulation Clinic Pharmacy [facility]tico[facility] Pager: [phone]. PAC received faxed outside lab/home meter result for patient from . Results have been scanned into patient's chart and are located under 'Scanned Documents'. Please note, may take up to 10 minutes for document to transfer [facility]. PT INR (no units) Date Value 12/03/2023 2.3 mdINR 11/28/2023 2.3 mdINR 11/18/2023 2.0 mdINR Maine Paz CPhT (Chief Data Officer) Pharmacy Anticoagulation Clinic documented in this encounter [facility] 12-03-2023 Miscellaneous Notes Patient has been identified by name and date of : Yes Patient phones for refill(s): Requested Prescriptions Pending Prescriptions Disp Refills warfarin (COUMADIN) 5 mg tablet 90 tablet 1 Sig: Take 1 tablet by mouth once daily. Or as directed by anticoagulation clinic. Date of last office visit in primary care: 09/24/2023 Date of next office visit in primary care: 03/24/2024 Please advise. Thank you. Robert Snow LPN. documented in this encounter [facility] 11-19-2023 Miscellaneous Notes [facility] Anticoagulation [facility] Anticoagulation Episode Summary Anticoagulation Care Providers Provider Role Specialty Phone number Jayjay Ortiz MD Referring Cardiology [phone] Chavo Tom is a 43 year old year old female patient being evaluated today for a Telemanagement visit. Patient is currently on the following anticoagulant(s) Warfarin. Labs PT INR (no units) Date Value 11/18/2023 2.0 mdINR 11/12/2023 2.4 mdINR 11/04/2023 2.2 MDINR Hemoglobin (g/dL) Date Value 09/24/2023 12.9 05/14/2021 14.4 Hematocrit (%) Date Value 09/24/2023 41.3 05/14/2021 44.4 Platelet Count (k/uL) Date Value 09/24/2023 414 05/14/2021 307 Creatinine (mg/dL) Date Value 09/24/2023 0.71 08/05/2023 0.68 03/20/2023 0.80 05/14/2021 0.83 03/19/2021 0.82 01/07/2021 0.65 Bilirubin, Total (mg/dL) Date Value 09/24/2023 0.4 08/27/2020 0.4 ALT (U/L) Date Value 09/24/2023 19 05/14/2021 33 AST (U/L) Date Value 09/24/2023 21 05/14/2021 26 Estimated Creatinine Clearance: 103.1 mL/min (based on SCr of 0.71 mg/dL). 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 (hcc) halfway (current) use of 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 Anticoagulation Episode Summary Current INR goal: 2.0-3.0 Assessment: INR result of 2.0 mdinr is therapeutic Plan: Current Warfarin Dosing As of 11/19/2023 Full warfarin instructions: 7.5 mg every day Sent [employer] message Advised patient to continue current weekly dose as noted above Next home INR check scheduled on 12/03/23 Jackie Estrada RP Clinical Pharmacist, Pharmacy Anticoagulation Clinic Pharmacy [facility]tico[facility] Pager: [phone]. PAC received faxed outside lab/home meter result for patient from 11/18. Results have been scanned into patient's chart and are located under 'Scanned Documents'. Please note, may take up to 10 minutes for document to transfer from [facility] to [facility]. PT INR (no units) Date Value 11/18/2023 2.0 mdINR 11/12/2023 2.4 mdINR 11/04/2023 2.2 MDINR Maine Paz CPhT (Chief Data Officer) Pharmacy Anticoagulation Clinic documented in this encounter [facility] 11-12-2023 Miscellaneous Notes [employer] message sent Milla Douglas PharmD PAC received faxed outside lab/home meter result for patient from 11/12. Results have been scanned into patient's chart and are located under 'Scanned Documents'. Please note, may take up to 10 minutes for document to transfer from [facility] to [facility]. PT INR (no units) Date Value 11/12/2023 2.4 mdINR 11/04/2023 2.2 MDINR 10/28/2023 4.1 TONY Paz CPhT (Chief Data Officer) Pharmacy Anticoagulation Clinic documented in this encounter [facility] 11-11-2023 History of Present illness Narrative Radiology Service Progress Note PATIENT NAME: Chavo Tom DATE OF SERVICE: November 11, 2023 TIME: 10:00 AM PATIENT IDENTITY VERIFICATION COMPLETED USING TWO (2) IDENTIFIERS: Name and Date of confirmed by patient verbally. FALL SCREENING: Has the patient had 2 falls in the last year or 1 fall with injury or currently using an Ambulatory Assistive Device (Walker, Cane, Wheelchair, Crutches, etc.)? No PATIENT GENDER DATA: Female. status: : No status: NO. PATIENT RELEVANT IMPLANT DATA REVIEWED: Not Applicable PATIENT PRESENTS WITH AN IMPLANTABLE OR ATTACHED ONCOLOGY REP SPECIALIST: Yes Other ICD RADIOLOGY DEPARTMENT: Mammography PERIPHERAL IV DATA: Not applicable SIGNED BY: WILFRED Andrea November 11, 2023 10:00 AM documented in this encounter [facility] 09-11-2023 Miscellaneous Notes Patient returned call and went over results, notes from express care provider with understanding. Aware rx sent to pharmacy. TC to pt. LM to call office, ask for triage nurse to get results. Vianey French LPN Please call and let patient know her lumbar back x-rays do show some mild arthritic changes. Her hip x-rays were normal. I did call in prednisone to help with the nerve pain. If not improving follow-up with Rojas Palma. documented in this encounter [facility] 09-11-2023 History of Present illness Narrative This note was created using Amadesariter. Subjective Chavo Tom is a 43 year old female. HPI Presents with left hip pain and back pain over the past day. She states pain starts in her back and radiates down the lateral side of her leg. Worse with bending and twisting. Denies any injury to her back. Denies chronic back issues. No numbness or tingling. Symptoms started yesterday. No abdominal pain. No dysuria, frequency, hematuria or urgency. No history of kidney stones. Review of Systems Constitutional: Negative. HENT: Negative. Respiratory: Negative. Cardiovascular: Negative. Gastrointestinal: Negative. Genitourinary: Negative. Musculoskeletal: Positive for back pain. Skin: Negative. All other systems reviewed and are negative. 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 180 tablet 0 cycloSPORINE (RESTASIS) 0.05 % ophthalmic emulsion Use 1 Drop in both eyes two times a day. 180 Each 3 warfarin (COUMADIN) 5 mg tablet Take 1 tablet by mouth once daily. Or as directed by anticoagulation clinic. 90 tablet 1 cholecalciferol, vitamin D3, (VITAMIN D3 ORAL) Take by mouth. tacrolimus (PROTOPIC) 0.03 % ointment Apply to affected area twice daily. 30 g 2 metoprolol succinate ER (TOPROL XL) 25 mg 24 hr tablet Take 1.5 tablets by mouth twice daily with meals. 90 tablet 6 predniSONE (DELTASONE) 20 mg tablet Take 2 tablets by mouth once daily for 5 days. 10 tablet 0 Current Facility-Administered Medications Medication Dose Route Frequency Provider Last Rate Last Admin perflutren lipid microspheres 1.3 mL in NaCl (PF) 0.9% 10 mL injection (DEFINITY) INTRAVENOUS DIRECTED PRN Jayjay Ortiz, MD sodium chloride 0.9 % (flush) 10 mL (BD POSIFLUSH) 10 mL INTRAVENOUS DIRECTED Jayjay Hoskins MD PAST SURGICAL HISTORY Procedure Laterality Date CARDIOVERSION 08/03/2020 recurrent AF 150-180s. Cardioverted with 150j under sedation DEFIBRILLATOR SURGERY 02/24/2014 ICD, redo WPW & atrial fib ablation EPS: DEFIB. SURGERY 05/16/2021 Exchange of a Sam[employer] SQ-RX 1010 pulse generator with a [place] LAP GASTRIC BYPASS/JENNY-EN-Y 02/18/2023 150cmantecolic jenny, 70cm bp limb LAPAROSCOPIC CHOLECYSTECTOMY 05/20/2023 PAST SURGICAL HISTORY OF 07/06/2014 WPW ablation PAST SURGICAL HISTORY OF 11/21/2019 MVr, myectomy, PVI, LAAC TYMPANOSTOMY LOCAL/TOPICAL ANESTHESIA Right FAMILY HISTORY Problem Relation Age of Onset Lipids Father Diabetes Mother Hypertension Mother Thyroid Mother Coronary Artery Disease Mother CABG 2012 Diabetes Brother Heart Sister HOCM s/p ICD None Maternal Grandfather age 46-"suddenly" Heart Maternal Grandmother OR age 72 Alcohol/Drug Paternal Grandfather ETOH Diabetes Maternal Aunt Diabetes Maternal Uncle Colon Cancer No Family History Anesthesia Problems No Family History Social History Tobacco Use Smoking status: Never Smokeless tobacco: Never Vaping Use Vaping Use: Never used Substance Use Topics Alcohol use: No Drug use: No Objective BP 102/64 Pulse 60 Temp 36.5 C (97.7 F) (Tympanic) Resp 18 Wt 77.8 kg (171 lb 9.6 oz) LMP 01/06/2012 (Approximate) SpO2 99% BMI 26.09 kg/m Physical Exam Vitals reviewed. Constitutional: Appearance: Normal appearance. HENT: Head: Normocephalic and atraumatic. Cardiovascular: Rate and Rhythm: Normal rate and regular rhythm. Heart sounds: Normal heart sounds. Pulmonary: Effort: Pulmonary effort is normal. Breath sounds: Normal breath sounds. Musculoskeletal: Cervical back: Neck supple. Comments: No tenderness on palpation of the midline lumbar back or paraspinal musculature. Normal strength and sensation in the lower extremities. DTRs intact and symmetrical bilaterally. Patient able to ambulate. Increased pain with bending and twisting. Normal range of motion of the bilateral hips. Skin: General: Skin is warm and dry. Neurological: Mental Status: She is alert. Assessment and Plan ASSESSMENT/PLAN: 1. Lumbar radiculopathy - ICD9: 724.4, ICD10: M54.16 X-rays show some facet joint arthritis and osteophytes. Hip x-rays unremarkable. I feel she likely has lumbar radiculopathy. Will treat with prednisone. May also take Tylenol. Follow-up with PCP if not improving. - XR LUMBAR GENERAL 3V AP/LAT/L5-S1 - XR HIP GENERAL 3V PELV/AP/LAT LEFT Natalya Ramos PA-C documented in this encounter [facility] 09-11-2023 History of Present illness Narrative Radiology Service Progress Note PATIENT NAME: Chavo Tom DATE OF SERVICE: September 11, 2023 TIME: 1:24 PM PATIENT IDENTITY VERIFICATION COMPLETED USING TWO (2) IDENTIFIERS: Name and Date of confirmed by patient verbally. FALL SCREENING: Has the patient had 2 falls in the last year or 1 fall with injury or currently using an Ambulatory Assistive Device (Walker, Cane, Wheelchair, Crutches, etc.)? No PATIENT GENDER DATA: Female. status: : No status: NO. PATIENT RELEVANT IMPLANT DATA REVIEWED: Not Applicable RADIOLOGY DEPARTMENT: General X-ray: Exam(s) Completed: Spine X-Ray(s): Lumbar AP / LAT / L5-S1 Pelvis X-Ray: Pelvis with Hip Left PERIPHERAL IV DATA: Not applicable SIGNED BY: RT Yoko(R) September 11, 2023 1:24 PM documented in this encounter [facility] 09-09-2023 Miscellaneous Notes [facility] Ambulatory Pharmacy Anticoagulation Clinic Anticoagulation Episode Summary Anticoagulation Care Providers Provider Role Specialty Phone number Jayjay Ortiz MD Referring Cardiology [phone] Chavo Tom is a 43 year old year old female patient being evaluated today for a Telemanagement visit. Patient is currently on the following anticoagulant(s) Warfarin. Labs PT INR (no units) Date Value 09/09/2023 1.8 mdINR 09/01/2023 1.3 [facility] 08/20/2023 1.6 mdINR Hemoglobin (g/dL) Date Value 03/20/2023 13.0 05/14/2021 14.4 Hematocrit (%) Date Value 03/20/2023 38.0 05/14/2021 44.4 Platelet Count (k/uL) Date Value 03/20/2023 306 05/14/2021 307 Creatinine (mg/dL) Date Value 08/05/2023 0.68 03/20/2023 0.80 02/20/2023 0.83 05/14/2021 0.83 03/19/2021 0.82 01/07/2021 0.65 Bilirubin, Total (mg/dL) Date Value 03/20/2023 0.4 08/27/2020 0.4 ALT (U/L) Date Value 03/20/2023 17 05/14/2021 33 AST (U/L) Date Value 03/20/2023 18 05/14/2021 26 Estimated Creatinine Clearance: 118.7 mL/min (based on SCr of 0.68 mg/dL). 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 Atrial fibrillation, unspecified type (hcc) Anticoagulation Episode Summary Current INR goal: 2.0-3.0 Assessment: INR result of 1.8 mdinr is SUBtherapeutic due to: unknown cause - did not speak to patient Plan: Current Warfarin Dosing As of 09/09/2023 Full warfarin instructions: 09/09: 7.5 mg; Otherwise 7.5 mg every Tue, Diane, Sat; 5 mg all other days Left voice message And sent [employer] message Advised patient to increase total weekly regimen Next home INR check scheduled on 09/16/2023 Advised pt to Call Coumadin Clinic at [phone] to confirm dosing and follow-up Milla Douglas RPh Clinical Pharmacist, Pharmacy Anticoagulation Clinic [facility] Pager: [phone]. PAC received faxed outside lab/home meter result for patient from 09/09. Results have been scanned into patient's chart and are located under 'Scanned Documents'. Please note, may take up to 10 minutes for document to transfer [facility]. PT INR (no units) Date Value 09/09/2023 1.8 mdINR 09/01/2023 1.3 [facility] 08/20/2023 1.6 mdINR Maine Paz CPhT (Chief Data Officer) Pharmacy Anticoagulation Clinic documented in this encounter [facility] 09-08-2023 Telephone encounter Note Patient due to test INR today. Will continue to monitor for results. Milla Douglas RPh [facility] 09-08-2023 Miscellaneous Notes Patient due to test INR today. Will continue to monitor for results. Milla Douglas RPh documented in this encounter [facility] 09-02-[address] - 09/02/2023 11:17 AM EST 1. Protein: Continue to strive for 89 g protein per day. Eat protein first at all meals. Lean meats, low fat/part skim dairy products, peanut butter, eggs, beans. 2. Eat 4 small meals per day or 3 meals and 1-2 small snacks for additional protein 3. Fluids: 64 oz per day, minimum. No carbonation, no caffeine, no calories, no alcohol. 4. Vitamin/minerals: Take daily BariatricPal multivitamin with Iron 45 mg and calcium citrate 6522-0177 mg/day (3 soft chews), biotin, VitD, and Vitamin B12 5. Exercise: strive for daily activity - combine strength training and cardio for best workouts. Goal is 30 minutes 5-6x per week. 6. Practice these: Eat in this order protein first, vegetable and fruit second and whole grain carbohydrates last. * Separate eating and drinking by 30 minutes * Chew your food 20-30x per bite * Meals should last 30 minutes. 7. Aim for 5171-3410 calories and 50-75 gm carbs per day Nutrition Monitoring & Evaluation: Maintain BMI < 30 Need for Follow up: Need Post-Op Medicine visit BILLY, for Nutrition 3 or 6 months, [phone] documented in this encounter [facility] 09-02-2023 History of Present illness Narrative [facility] Nutrition Therapy: Virtual Consult - Re-assessment I have communicated my name and active licensure. The patient s identity and physical location were verified at the time of this visit. Either the patient or their legal area representative has been informed of the risks and benefits of -- and alternatives to -- treatment through a remote evaluation and consents to proceed with the evaluation remotely. Nutrition Diagnosis: Altered Gastrointestinal Tract Function, related to, S/P bariatric surgery, as evidenced by patient update and PSH RECOMMENDED MALNUTRITION DIAGNOSIS: NO MALNUTRITION IDENTIFIED NUTRITION CARE PLAN: Nutrition Intervention 09/02/2023: Modify type and amount of food and beverage 1. Protein: Continue to strive for 89 g protein per day. Eat protein first at all meals. Lean meats, low fat/part skim dairy products, peanut butter, eggs, beans. 2. Eat 4 small meals per day or 3 meals and 1-2 small snacks for additional protein 3. Fluids: 64 oz per day, minimum. No carbonation, no caffeine, no calories, no alcohol. 4. Vitamin/minerals: Take daily BariatricPal multivitamin with Iron 45 mg and calcium citrate 4919-3372 mg/day (3 soft chews), biotin, VitD, and Vitamin B12 5. Exercise: strive for daily activity - combine strength training and cardio for best workouts. Goal is 30 minutes 5-6x per week. 6. Practice these: Eat in this order protein first, vegetable and fruit second and whole grain carbohydrates last. * Separate eating and drinking by 30 minutes * Chew your food 20-30x per bite * Meals should last 30 minutes. 7. Aim for 8496-4114 calories and 50-75 gm carbs per day Nutrition Monitoring & Evaluation: Maintain BMI < 30 Need for Follow up: Need Post-Op Medicine visit BILLY, for Nutrition 3 or 6 months, [phone] PROGRESS: Interval History: Patient presents for follow-up MNT 6 months post op RYGB. Patient reports some troubles with adequate caloric intake, but feels well overall. Net weight loss 102 pounds ( 279 lbs initial) 37% TWL Pre-surgery weight: 250 pounds 23 pounds weight loss since last assessment (200 lbs) Patient reports desired weight of current - Patient would like to maintain Diet recall indicates consistent meal pattern, with protein-dense choices. However, meals tend to lack balance and Patient reports not yet fully incorporating vegetables or carbohydrates yet. 800-1000 calories/day - insufficient 65-80 gm protein intake/day - meeting needs 64 oz fluid intake/day - meeting needs Taking all vitamin/minerals. Labs reviewed, WNL Resting Metabolic Rate: 1508 Energy needs for weight maintenance: 9292-8299 (20-25 antonietta/kg current weight) Protein needs: 89 grams protein per day (1.2 g/kg IBW kg) Exercise - consistent and meets recommendations, includes both cardio and weight resistance Nutrition Intervention 06/05/23: 1. Continue to take all recommended vitamin/minerals - Bariatric Pal multivitamin w/ iron and 3 calcium citrate soft chews daily 2. Protein goal: 89 grams protein/day 3. Fluid goal: 64 ounces per day (no carbonation, caffeine, calories, alcohol) 4. Exercise goal: increase as tolerated to goal of 200 minutes/week combination cardiovascular and strength training exercise. 5. Practice mindful eating habits-take small portions, eat slowly, chew thoroughly, separate food and drink by 30 min before and after eating 6. You may include 1-2 servings of fruit per day. 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 Resting Metabolic Rate: 1549 Malnutrition Screening Significant unintentional weight loss? No Eating less than 75% of usual intake for more than 2 weeks? No Potential Signs of Inflammation: no identifiable sources Nutritional status: Education Materials Provided: None this visit READINESS TO LEARN Cognitive ability: Alert and oriented Motivation to learn: Interested Family support: Unable to assess - Family not present Instruction provided to: Patient Patient learns best by: Multiple Methods Factors affecting learning: None Physical limitations affecting learning: None Likelihood of Adherence: High Referred by: Ruslan COLEY Billing Type: Re-assess/15 min 2 units SIGNATURE: Karen Garrett RD PATIENT NAME: Chavo Tom DATE: 09/02/2023 TIME: 10:50 AM PAGER: [phone] documented in this encounter [facility] 09-02-2023 Miscellaneous Notes [facility] Ambulatory Pharmacy Anticoagulation Clinic Anticoagulation Episode Summary Anticoagulation Care Providers Provider Role Specialty Phone number Jayjay Ortiz MD Referring Cardiology [phone] Chavo Tom is a 43 year old year old female patient being evaluated today for a Telemanagement visit. Patient is currently on the following anticoagulant(s) Warfarin. Labs PT INR (no units) Date Value 09/01/2023 1.3 MDINR 08/20/2023 1.6 mdINR 08/13/2023 2.3 MDIN[facility] Hemoglobin (g/dL) Date Value 03/20/2023 13.0 05/14/2021 14.4 Hematocrit (%) Date Value 03/20/2023 38.0 05/14/2021 44.4 Platelet Count (k/uL) Date Value 03/20/2023 306 05/14/2021 307 Creatinine (mg/dL) Date Value 08/05/2023 0.68 03/20/2023 0.80 02/20/2023 0.83 05/14/2021 0.83 03/19/2021 0.82 01/07/2021 0.65 Bilirubin, Total (mg/dL) Date Value 03/20/2023 0.4 08/27/2020 0.4 ALT (U/L) Date Value 03/20/2023 17 05/14/2021 33 AST (U/L) Date Value 03/20/2023 18 05/14/2021 26 Estimated Creatinine Clearance: 121.4 mL/min (based on SCr of 0.68 mg/dL). 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 Pt warned about clot/stroke risk. Pt advised to ambulate often and to look out for swelling or pain in extremities.Pt should also report severe headaches or confusion/slurred speech. Pt should report to ED if any of these occur. Plan: Current Warfarin Dosing As of 09/02/2023 Full warfarin instructions: 09/02: 12.5 mg; Otherwise 7.5 mg every Thu, Sat; 5 mg all other days Called and spoke to patient/caregiver Advised patient to increase dose for 1 day only then resume weekly regimen Next home INR check scheduled on 09/08/2023 Patient verbalizes understanding of the plan. Patient denies need for refills. Camryn Markham RPh Clinical Pharmacist, Pharmacy Anticoagulation Clinic Pharmacy [facility] Pager: [phone]. Received fax from [facility] with INR results for patient. Patient tested on 09/01/2023 and the INR result was 1.3. Fax can be found under scanned documents as miscellaneous lab result. It may take a few minutes to transfer from [facility]. PT INR (no units) Date Value 09/01/2023 1.3 [facility] 08/20/2023 1.6 mdINR 08/13/2023 2.3 [facility] Bernardo Zamora, Chief Data Officer (spray gun striper) Pharmacy Anticoagulation Clinic documented in this encounter [facility] 08-28-2023 Miscellaneous Notes Patient due to test INR today. Will continue to monitor for results. Daphnie Holman RPh documented in this encounter [facility] 08-05-2023 Miscellaneous Notes [facility] Ambulatory Pharmacy Anticoagulation Clinic Anticoagulation Episode Summary Anticoagulation Care Providers Provider Role Specialty Phone number Jayjay Ortiz MD Referring Cardiology [phone] Chavo Tom is a 43 year old year old female patient being evaluated today for a Telemanagement visit. Patient is currently on the following anticoagulant(s) Warfarin. Labs PT INR (no units) Date Value 07/30/2023 2.0 mdINR 07/21/2023 1.8 mdinr 07/13/2023 1.6 mdINR INR (no units) Date Value 08/05/2023 1.8 Hemoglobin (g/dL) Date Value 03/20/2023 13.0 05/14/2021 14.4 Hematocrit (%) Date Value 03/20/2023 38.0 05/14/2021 44.4 Platelet Count (k/uL) Date Value 03/20/2023 306 05/14/2021 307 Creatinine (mg/dL) Date Value 03/20/2023 0.80 02/20/2023 0.83 02/19/2023 0.84 05/14/2021 0.83 03/19/2021 0.82 01/07/2021 0.65 Bilirubin, Total (mg/dL) Date Value 03/20/2023 0.4 08/27/2020 0.4 ALT (U/L) Date Value 03/20/2023 17 05/14/2021 33 AST (U/L) Date Value 03/20/2023 18 05/14/2021 26 Estimated Creatinine Clearance: 103.2 mL/min (based on SCr of 0.8 mg/dL). ALLERGIES Allergen Reactions Metformin Diarrhea Indication for Warfarin: Atrial fibrillation, unspecified type (hcc) Paroxysmal atrial fibrillation (hcc) halfway (current) use of 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 Anticoagulation Episode Summary Current INR goal: 2.0-3.0 Assessment: INR result of 1.8 is SUBtherapeutic due to: unknown cause - did not speak to patient Plan: Current Warfarin Dosing As of 08/05/2023 Full warfarin instructions: 08/05: 10 mg; Otherwise 7.5 mg every Thu, Sat; 5 mg all other days Left voice message Advised patient to increase dose for 1 day only then resume weekly regimen Next home INR check scheduled on 08/12/2023 Advised pt to Call Coumadin Clinic at [phone] to confirm dosing follow-up Milla Douglas RPh Clinical Pharmacist, Pharmacy Anticoagulation Clinic Pharmacy Anticoagulation Clinic Pager: [phone]. documented in this encounter [facility] 07-30-2023 Miscellaneous Notes PAC received faxed outside lab/home meter result for patient from 07/30. Results have been scanned into patient's chart and are located under 'Scanned Documents'. Please note, may take up to 10 minutes for document to transfer [facility]. PT INR (no units) Date Value 07/30/2023 2.0 mdINR 07/21/2023 1.8 mdinr 07/13/2023 1.6 mdINR Maine Paz CPhT (Chief Data Officer) Pharmacy Anticoagulation Clinic documented in this encounter [facility] 07-29-2023 Telephone encounter Note Patient due to test INR today. Will continue to monitor for results. Milla Douglas RPh [facility] 07-29-2023 Miscellaneous Notes Patient due to test INR today. Will continue to monitor for results. Milla Douglas RPh documented in this encounter [facility] 07-22-2023 Miscellaneous Notes [facility] Ambulatory Pharmacy Anticoagulation Clinic Anticoagulation Episode Summary Anticoagulation Care Providers Provider Role Specialty Phone number Jayjay Ortiz MD Referring Cardiology [phone] Chaov Tom is a 43 year old year old female patient being evaluated today for a Telemanagement visit. Patient is currently on the following anticoagulant(s) Warfarin. Labs PT INR (no units) Date Value 07/21/2023 1.8 mdinr 07/13/2023 1.6 mdINR 07/01/2023 2.2 [facility] Hemoglobin (g/dL) Date Value 03/20/2023 13.0 05/14/2021 14.4 Hematocrit (%) Date Value 03/20/2023 38.0 05/14/2021 44.4 Platelet Count (k/uL) Date Value 03/20/2023 306 05/14/2021 307 Creatinine (mg/dL) Date Value 03/20/2023 0.80 02/20/2023 0.83 02/19/2023 0.84 05/14/2021 0.83 03/19/2021 0.82 01/07/2021 0.65 Bilirubin, Total (mg/dL) Date Value 03/20/2023 0.4 08/27/2020 0.4 ALT (U/L) Date Value 03/20/2023 17 05/14/2021 33 AST (U/L) Date Value 03/20/2023 18 05/14/2021 26 Estimated Creatinine Clearance: 103.2 mL/min (based on SCr of 0.8 mg/dL). ALLERGIES Allergen Reactions Metformin Diarrhea Indication for Warfarin: Atrial fibrillation, unspecified type (hcc) Paroxysmal atrial fibrillation (hcc) halfway (current) use of 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 Anticoagulation Episode Summary Current INR goal: 2.0-3.0 Assessment: INR result of 1.8 is SUBtherapeutic due to: unknown cause - did not speak to patient Plan: Current Warfarin Dosing As of 07/21/2023 Full warfarin instructions: 07/22: 10 mg; Otherwise 7.5 mg every Thu, Sat; 5 mg all other days Left voice message Advised patient to increase total weekly regimen Next home INR check scheduled on 07/28/2023 LVM for patient with above information and advised to call PAC at [phone] if any questions or changes to report. Scooby Del Cid RPh Clinical Pharmacist, Pharmacy Anticoagulation Clinic Pharmacy Anticoagulation Clinic Pager: [phone]. Received fax from [facility] with INR results for patient. Patient tested on 07/21/2023 and the INR result was 1.8. Fax can be found under scanned documents as miscellaneous lab result. It may take a few minutes to transfer from [employer]. PT INR (no units) Date Value 07/21/2023 1.8 mdinr 07/13/2023 1.6 mdIN[facility] 07/01/2023 2.2 [facility] Bernardo Zamora, Chief Data Officer (spray gun striper) Pharmacy Anticoagulation Clinic Patient due to test INR today. Will continue to monitor for results. Milla Douglas RPh documented in this encounter [facility] 07-16-2023 History of Present illness Narrative Images from the original note were not included. [facility] [place] [facility] Department of Cardiovascular Medicine SECTION OF PREVENTIVE CARDIOLOGY Date: 07/16/2023 Patient: Chavo Tom : 1980 CHIEF COMPLAINT: Routine follow-up HISTORY OF PRESENT CARDIOVASCULAR ILLNESS: I had the pleasure of seeing Chavo Tom today in the Preventive Cardiology Clinic for a routine follow-up. 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 She follows today for management of cardiovascular risk. I had previously seen her in February 2021 and at that time she was started on Wegovy. She had lost 50 lbs on the DYF-[id number]-[id number] agonist. She then had difficulty loosing additional weight, so she has now undergone gastric bypass surgery and has lost a total of 150 lbs/ She continues to follow with Dr. Ortiz. She is currently treated with sotalol 120 mg twice daily and metoprolol 37.5 mg. She is anticoagulated with warfarin. Subjectively, she denies any exertional complaints. She feels "fantastic". PAST MEDICAL HISTORY: PAST MEDICAL HISTORY Diagnosis Date Atrial fibrillation (HCC) CHADS score 0 Cardiomyopathy (HCC) 02/24/14 Family history of hypertrophic cardiomyopathy 01/18/2014 Impaired glucose tolerance 01/21/2011 Left bundle branch block Obesity S/P gastric bypass 02/18/2023 Sleep apnea Ventricular tachyarrhythmia (HCC) 02/2014 Qbyes-Ntpwmvlya-Nvxxy (WPW) syndrome s/p ablaton 02/2014 and 08/2014 PAST SURGICAL HISTORY: PAST SURGICAL HISTORY Procedure Laterality Date CARDIOVERSION 08/03/2020 recurrent AF 150-180s. Cardioverted with 150j under sedation DEFIBRILLATOR SURGERY 02/24/2014 ICD, redo WPW & atrial fib ablation EPS: DEFIB. SURGERY 05/16/2021 Exchange of a [employer] SQ-RX 1010 pulse generator with a [employer] [employer] GASTRIC BYPASS/JENNY-EN-Y 02/18/2023 150cmantecolic jenny, 70cm bp limb LAPAROSCOPIC CHOLECYSTECTOMY 05/20/2023 PAST SURGICAL HISTORY OF 07/06/2014 WPW ablation PAST SURGICAL HISTORY OF 11/21/2019 MVr, myectomy, PVI, LAAC TYMPANOSTOMY LOCAL/TOPICAL ANESTHESIA Right FAMILY HISTORY FAMILY HISTORY Problem Relation Age of Onset Lipids Father Diabetes Mother Hypertension Mother Thyroid Mother Coronary Artery Disease Mother CABG 2012 Diabetes Brother Heart Sister HOCM s/p ICD None Maternal Grandfather age 46-"suddenly" Heart Maternal Grandmother OR age 72 Alcohol/Drug Paternal Grandfather ETOH Diabetes Maternal Aunt Diabetes Maternal Uncle Colon Cancer No Family History Anesthesia Problems No Family History SOCIAL HISTORY Employer And Job Title: [employer]) Years Of Education Completed: 13 years Marital Status: Single with 1 child Tobacco use in the last year: No Alcohol Use: No CURRENT MEDS: Current Outpatient Medications Medication Sig cholecalciferol, vitamin D3, (VITAMIN D3 ORAL) Take by mouth. CPAP/BIPAP/OTHER New set: Settings 4 - 8 cm H2O, suitable mask per pt preference (nasal or pillow opt), chin strap, head gear, humidity, tubing, lifetime supplies. G47.33 QUINTON cycloSPORINE (RESTASIS) 0.05 % ophthalmic emulsion Use 1 Drop in both eyes two times a day. metoprolol succinate ER (TOPROL XL) 25 mg 24 hr tablet Take 1.5 tablets by mouth twice daily with meals. pantoprazole DR (PROTONIX) 40 mg tablet Take 1 tablet by mouth once daily. sotalol (BETAPACE) 120 mg tablet Take 1 tablet by mouth twice daily. tacrolimus (PROTOPIC) 0.03 % ointment Apply to affected area twice daily. warfarin (COUMADIN) 5 mg tablet Take 1 tablet by mouth once daily. Or as directed by anticoagulation clinic. Current Facility-Administered Medications Medication Dose Route Frequency perflutren lipid microspheres 1.3 mL in NaCl (PF) 0.9% 10 mL injection (DEFINITY) INTRAVENOUS DIRECTED PRN sodium chloride 0.9 % (flush) 10 mL (BD POSIFLUSH) 10 mL INTRAVENOUS DIRECTED PRN ALLERGIES: ALLERGIES Allergen Reactions Metformin Diarrhea REVIEW OF SYSTEMS: CONSTITUTIONAL: No weight loss, malaise or fevers. HEENT: Negative for frequent or significant headaches, No changes in hearing or vision, no nose bleeds or other nasal problems. RESPIRATORY: Negative for cough, wheezing, or shortness of breath CARDIOVASCULAR: Negative for chest pain, leg swelling or palpitations GI: Negative for abdominal discomfort, blood in stools or black stools or change in bowel habits. : No history of dysuria, frequency, or incontinence and No difficulty urination, nocturia >1 times per night or hematuria. MUSCULOSKELETAL: Negative for joint pain or swelling, back pain or muscle pain. ENDOCRINE: Negative for cold or heat intolerance, polyuria, polydipsia and goiter HEMATOLOGIC/LYMPHATIC: Negative for prolonged bleeding, bruising easily or swollen nodes. NEUROLOGIC: No history or headaches, syncope, paralysis, seizures or tremors. INTEGUMENTARY: Negative for lesions, rash, and itching. PHYSICAL EXAMINATION: BP 94/56 (BP Site: Right Arm, BP Position: Sitting, BP Cuff Size: Regular Adult) Pulse (!) 57 Ht 172.7 cm (5' 8") Wt 84.4 kg (186 lb) LMP 01/06/2012 (Approximate) SpO2 99% BMI 28.28 kg/m GENERAL: Well nourished, non-obese, well-appearing, in no acute distress. SKIN: No rashes, no clubbing, no cyanosis. EYES: Extra ocular movements intact. NECK: Non-tender, no lymphadenopathy, thyroid with normal size, no nodules appreciate, no jugular venous distention, no carotid bruits, carotids have a normal upstroke. LUNGS: Clear to auscultation bilaterally, no wheezing or rhonchi. HEART: Regular rhythm, S1, S2 normal, no S3, no S4, no heaves, no rub and no murmur. ABDOMEN: Soft, nontender, bowel sounds normal, no palpable organomegaly, no bruits. EXTREMITIES: No peripheral edema. Regular distal pulses bilaterally. CLINICAL TESTING RESULTS: I have personally reviewed the following: LABS: Glucose (mg/dL) Date Value 03/20/2023 103 (H) BUN (mg/dL) Date Value 03/20/2023 13 Creatinine (mg/dL) Date Value 03/20/2023 0.80 Sodium (mmol/L) Date Value 03/20/2023 139 Potassium (mmol/L) Date Value 03/20/2023 3.7 Chloride (mmol/L) Date Value 03/20/2023 105 CO2 (mmol/L) Date Value 03/20/2023 24 Protein, Total (g/dL) Date Value 03/20/2023 6.2 (L) Albumin (g/dL) Date Value 03/20/2023 4.0 Calcium, Total (mg/dL) Date Value 03/20/2023 9.1 Alkaline Phosphatase (U/L) Date Value 03/20/2023 73 Bilirubin, Total (mg/dL) Date Value 03/20/2023 0.4 AST (U/L) Date Value 03/20/2023 18 ALT (U/L) Date Value 03/20/2023 17 WBC (k/uL) Date Value 03/20/2023 6.22 RBC (m/uL) Date Value 03/20/2023 4.42 Hemoglobin (g/dL) Date Value 03/20/2023 13.0 Hematocrit (%) Date Value 03/20/2023 38.0 MCV (fL) Date Value 03/20/2023 86.0 MCH (pg) Date Value 03/20/2023 29.4 MCHC (g/dL) Date Value 03/20/2023 34.2 RDW-CV (%) Date Value 03/20/2023 14.6 Platelet Count (k/uL) Date Value 03/20/2023 306 MPV (fL) Date Value 03/20/2023 12.6 PT INR (no units) Date Value 07/13/2023 1.6 mdINR Cholesterol, Total Date Value Ref Range Status 09/10/2022 139 <200 mg/dL Final Comment: <200 mg/dL, Desirable 200-239 mg/dL, Borderline high >239 mg/dL, High HDL Cholesterol Date Value Ref Range Status 09/10/2022 42 >39 mg/dL Final Comment: 40-59 mg/dL, Acceptable >59 mg/dL, High: Negative risk factor for coronary heart disease <40 mg/dL, Low: Positive risk factor for coronary heart disease LDL Cholesterol Date Value Ref Range Status 09/10/2022 77 <100 mg/dL Final Comment: <100 mg/dL, Optimal 100-129 mg/dL, Near optimal/above optimal 130-159 mg/dL, Borderline high 160-189 mg/dL, High >189 mg/dL, Very high Secondary prevention optimal LDL Cholesterol levels are recommended to be < 70 mg/dL Triglyceride Date Value Ref Range Status 09/10/2022 101 <150 mg/dL Final Comment: <150 mg/dL, Normal 150-199 mg/dL, Borderline high 200-499 mg/dL, High >499 mg/dL, Very high TSH Date Value Ref Range Status 09/18/2022 2.580 0.270 - 4.200 mIU/L Final Comment: If the patient is , TSH reference range varies by gestational period: First Trimester (weeks 9-12): 0.180-2.990 mIU/L Second Trimester: 0.110-3.980 mIU/L Third Trimester: 0.480-4.710 mIU/L Ziggy Murillo et al. A Practical Approach for the Verifications and Determination of Site- and Trimester-Specific Reference Intervals for Thyroid Function tests in . Thyroid, 2019:29:3:412-420. Live Shaw, et al. 2017 Guidelines of the [place] [employer] for the Diagnosis and Management of Thyroid Disease during and the . Thyroid, 2017:27:3:315-389. Lab Results Component Value Date HBA1C 5.4 09/10/2022 HBA1C 6.0 01/07/2021 HBA1C 5.7 04/27/2020 HBA1C 5.6 11/25/2019 Interested in learning about research?: Yes PATIENT ENTERED QUESTIONNAIRE SCORES PHQ-9 02/02/2023 12/12/2022 11/24/2022 Score 0 2 2 JANE - 7 SCORES 12/12/2022 11/24/2022 11/17/2022 JANE-7 Score 1 3 2 PROMIS Global Health - (T-Scores - the mean of general population = 50. Five points is a clinically meaningful difference.) 07/12/2023 03/21/2023 12/12/2022 Physical T-Score 54.1 47.7 50.8 Mental T-Score 43.5 48.3 43.5 ASSESSMENT AND PLAN: In addition to the above history and physical exam, the results of prior labs and testing, were reviewed. The following plans and goals have been established to address current medical problems and optimize control of cardiovascular risk factors to reduce the risk of future heart disease: 1. Overweight: She has lost a total of 150 lbs and I have congratulated her to her success. She has just undergone gastric bypass surgery and will continue to follow in the surgical weight management program. 2. Hypertrophic obstructive cardiomyopathy, status post myectomy and mitral valve surgery: She will continue to follow with Dr. Ortiz. 3. Atrial fibrillation: She will continue anticoagulation and treatment with beta-blockade. She is on metoprolol and sotal and will discuss this regimen with our colleagues from Electrophysiology. FOLLOW UP: I have discussed with Chavo Tom that I recommend a follow-up visit with me as needed. Noah Vasquez MD, PhD Section of Preventive Cardiology [facility] Department of Cardiovascular Medicine [facility] [place] [address] Office Appointments: [phone] Voice recognition software was used in the creation of this document. There may be unintended errors in spelling, grammar, syntax or punctuation present. documented in this encounter [facility] 07-14-2023 Miscellaneous Notes 3 [facility] Anticoagulation Clinic Anticoagulation Episode Summary Anticoagulation Care Providers Provider Role Specialty Phone number Jayjay Ortiz MD Referring Cardiology [phone] Chavo Tom is a 43 year old year old female patient being evaluated today for a Telemanagement visit. Patient is currently on the following anticoagulant(s) Warfarin. Labs PT INR (no units) Date Value 07/13/2023 1.6 mdINR 07/01/2023 2.2 MDINR 11/17/2019 1.0 INR (no units) Date Value 06/17/2023 1.7 06/01/2023 1.5 05/14/2023 1.4 INR (POCT) (no units) Date Value 05/20/2023 1.3 03/16/2023 1.8 Hemoglobin (g/dL) Date Value 03/20/2023 13.0 05/14/2021 14.4 Hematocrit (%) Date Value 03/20/2023 38.0 05/14/2021 44.4 Platelet Count (k/uL) Date Value 03/20/2023 306 05/14/2021 307 Creatinine (mg/dL) Date Value 03/20/2023 0.80 02/20/2023 0.83 02/19/2023 0.84 05/14/2021 0.83 03/19/2021 0.82 01/07/2021 0.65 Bilirubin, Total (mg/dL) Date Value 03/20/2023 0.4 08/27/2020 0.4 ALT (U/L) Date Value 03/20/2023 17 05/14/2021 33 AST (U/L) Date Value 03/20/2023 18 05/14/2021 26 Estimated Creatinine Clearance: 106.8 mL/min (based on SCr of 0.8 mg/dL). 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 Anticoagulation Episode Summary Current INR goal: 2.0-3.0 Assessment: INR result of 1.6 mdinr is SUBtherapeutic due to: unknown cause - did not speak to patient Plan: Current Warfarin Dosing As of 07/14/2023 Full warfarin instructions: 07/14: 7.5 mg; Otherwise 7.5 mg every Wed; 5 mg all other days Left voice message Advised patient to increase dose for 1 day only then resume weekly regimen Next home INR check scheduled on 07/21/2023 Advised pt to Call Coumadin Clinic at [phone] to confirm dosing and follow-up Milla Douglas RPh Clinical Pharmacist, Pharmacy Anticoagulation Clinic [facility] Pager: [phone]. PAC received faxed outside lab/home meter result for patient from 07/13. Results have been scanned into patient's chart and are located under 'Scanned Documents'. Please note, may take up to 10 minutes for document to transfer from [facility]. PT INR (no units) Date Value 07/13/2023 1.6 mdINR 07/01/2023 2.2 MDINR 11/17/2019 1.0 INR (no units) Date Value 06/17/2023 1.7 06/01/2023 1.5 05/14/2023 1.4 INR (POCT) (no units) Date Value 05/20/2023 1.3 03/16/2023 1.8 Maine Paz CPhT (Chief Data Officer) Pharmacy Anticoagulation Clinic documented in this encounter [facility] 07-09-2023 Miscellaneous Notes Refill request via fax for Restasis. Order pending if appropriate Refill medication(s) requested: restasis Amount (30 or 90 day supply?) 90 Pharmacy information: [facility] Prescribing physician: WILLIAM Additional info: Patient has prior authorization for medication. Espinoza from 06/07/23 to 07/06/24 documented in this encounter [facility] 07-07-2023 Miscellaneous Notes Initiated prior authorization for Restasis via Cover My Meds. Received approval. Espinoza from 06/07/2023 to 07/06/2024 Shaye Le July 07, 2023 9:52 AM documented in this encounter [facility] 06-05-[address] - 06/05/2023 10:58 AM EDT Reviewed nutrition principles of: 1. Continue to take all recommended vitamin/minerals - Bariatric Pal multivitamin w/ iron and 3 calcium citrate soft chews daily 2. Protein goal: 89 grams protein/day 3. Fluid goal: 64 ounces per day (no carbonation, caffeine, calories, alcohol) 4. Exercise goal: increase as tolerated to goal of 200 minutes/week combination cardiovascular and strength training exercise. 5. Practice mindful eating habits-take small portions, eat slowly, chew thoroughly, separate food and drink by 30 min before and after eating 6. You may include 1-2 servings of fruit per day. Nutrition Monitoring & Evaluation: BMI < 30 Criteria: weight check and patient update Need for Follow up: 6 months post op, scheduling [phone] documented in this encounter [facility] 06-05-2023 History of Present illness Narrative This visit was performed virtually due to the COVID-19 epidemic as an effort to protect patients and minimize exposure. Consent from patient received to conduct visit virtually. This Team Access Model visit is a virtual GROUP encounter. It required patient-provider interaction for the medical decision making as documented below. Patient reports weight (as measured by home scale) of 200 pounds. AMBULATORY PATIENT EDUCATION NOTE-Shared Nutrition Group TOPIC: LIFE STYLE CHANGES: Post-op weight loss surgery: Diet and Exercise READINESS TO LEARN COGNITIVE ABILITY: Alert and oriented MOTIVATION TO LEARN: Interested FAMILY SUPPORT: Unable to assess - Family not present INSTRUCTION PROVIDED TO: Patient and group PATIENT LEARNS BEST BY: Multiple Methods FACTORS AFFECTING LEARNING: None PHYSICAL LIMITATIONS AFFECTING LEARNING: None LEARNING RESPONSE DIAGNOSIS: Inadequate protein-energy intake, related to: altered GI tract, as evidenced by s/p bariatric surgery Overweight Obesity, related to; food and nutrition related knowledge deficit, as evidenced by BMI above normative standard for age and gender Malnutrition Screening Significant unintentional weight loss? No Eating less than 75% of usual intake for more than 2 weeks? Yes, advancing diet per bariatric protocol Nutritional status: METHOD OF INSTRUCTION: Individual instruction Group class instruction PATIENT / FAMILY RESPONSE: Nutrition outcome statement: Expect attention to diet to assist with weight management and minimum 1200 calories/2 liters of fluids per day. 3 months post op RYGB ([place] 02/18/23) Net weight loss 79 pounds (279 lbs initial) Pre-surgery weight: 250 pounds 20% TWL tracking as expected from surgery Weight loss since last session 31 lbs (231 lbs) Diet recall indicates consistent eating pattern with regular meals and snacks. Following phase IV diet appropriately with continued attention to protein intake. Fluids consumed are adequate and appropriate. Confirms she is eating and drinking by 30 min. Physical activity includes walking with plan to resume strength training. 800-1000 calories/day - not meeting needs 90-100 g protein/day - meets needs >100 oz fluid/day - adequate Taking all recommended vitamin/minerals- Bariatric Pal multivitamin w/ iron, 3 calcium citrate chews, biotin. Labs not available to assess Resting Metabolic Rate: 1618 Energy needs for weight loss 7989-2994 kcal/day (15-20 antonietta/kg current weight) Protein needs: 89 grams protein per day (1.2 g/kg IBW kg) Exercise: 150-250 min/week combining cardio and strength Reviewed nutrition principles of: 1. Continue to take all recommended vitamin/minerals - Bariatric Pal multivitamin w/ iron and 3 calcium citrate soft chews daily 2. Protein goal: 89 grams protein/day 3. Fluid goal: 64 ounces per day (no carbonation, caffeine, calories, alcohol) 4. Exercise goal: increase as tolerated to goal of 200 minutes/week combination cardiovascular and strength training exercise. 5. Practice mindful eating habits-take small portions, eat slowly, chew thoroughly, separate food and drink by 30 min before and after eating 6. You may include 1-2 servings of fruit per day. Nutrition Monitoring & Evaluation: BMI < 30 Criteria: weight check and patient update Need for Follow up: 6 months post op, scheduling [phone] Appointment Start Time: 9:45am Appointment End Time: 10:24am Time Spent on Consult: 39 minutes - Group Edna Leigh RD documented in this encounter [facility] 06-02-2023 Miscellaneous Notes [facility] Anticoagulation Clinic Anticoagulation Episode Summary Anticoagulation Care Providers Provider Role Specialty Phone number Jyajay Ortiz MD Referring Cardiology [phone] Chavo Tom is a 42 year old year old female patient being evaluated today for a Telemanagement visit. Patient is currently on the following anticoagulant(s) Warfarin. Labs PT INR (no units) Date Value 11/17/2019 1.0 INR (no units) Date Value 06/01/2023 1.5 05/14/2023 1.4 05/07/2023 1.3 INR (POCT) (no units) Date Value 05/20/2023 1.3 03/16/2023 1.8 Hemoglobin (g/dL) Date Value 03/20/2023 13.0 05/14/2021 14.4 Hematocrit (%) Date Value 03/20/2023 38.0 05/14/2021 44.4 Platelet Count (k/uL) Date Value 03/20/2023 306 05/14/2021 307 Creatinine (mg/dL) Date Value 03/20/2023 0.80 02/20/2023 0.83 02/19/2023 0.84 05/14/2021 0.83 03/19/2021 0.82 01/07/2021 0.65 Bilirubin, Total (mg/dL) Date Value 03/20/2023 0.4 08/27/2020 0.4 ALT (U/L) Date Value 03/20/2023 17 05/14/2021 33 AST (U/L) Date Value 03/20/2023 18 05/14/2021 26 Estimated Creatinine Clearance: 110.8 mL/min (based on SCr of 0.8 mg/dL). 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 Patient denies need for refills. Milla Douglas RPh Clinical Pharmacist, Pharmacy Anticoagulation Clinic Pharmacy Anticoagulation Clinic Pager: [phone]. INRs go to pharmacist, In home monitoring. Thanks, Rojas Palma PA-C Current INR: 06/01/23 1.5 Current dose of coumadin is: Post surgery, when approved-advised to restart and increase Warfarin to 5 mg daily Previous INR (date and result): 04/23/23 1.3 Additional Clinical Information or narrative: Confirmed with patient-has been taking 5 MG daily since surgery. documented in this encounter [facility] 06-01-2023 Miscellaneous Notes The following approved medication requests have been transmitted electronically. Requested Prescriptions Signed Prescriptions Disp Refills warfarin (COUMADIN) 5 mg tablet 90 tablet 1 Sig: Take 1 tablet by mouth once daily. Or as directed by anticoagulation clinic. Kylah Palma PA-C\\ documented in this encounter [facility] 06-01-2023 Miscellaneous Notes Patient due to test INR today. Will continue to monitor for results. Scooby Del Cid RPh documented in this encounter [facility] 05-15-2023 Miscellaneous Notes [facility] Anticoagulation Clinic Anticoagulation Episode Summary Anticoagulation Care Providers Provider Role Specialty Phone number Jayjay Ortiz MD Referring Cardiology [phone] Chavo Tom is a 42 year old year old female patient being evaluated today for a Telemanagement visit. Patient is currently on the following anticoagulant(s) Warfarin. Labs PT INR (no units) Date Value 11/17/2019 1.0 INR (no units) Date Value 05/14/2023 1.4 05/07/2023 1.3 04/23/2023 1.3 INR (POCT) (no units) Date Value 03/16/2023 1.8 Hemoglobin (g/dL) Date Value 03/20/2023 13.0 05/14/2021 14.4 Hematocrit (%) Date Value 03/20/2023 38.0 05/14/2021 44.4 Platelet Count (k/uL) Date Value 03/20/2023 306 05/14/2021 307 Creatinine (mg/dL) Date Value 03/20/2023 0.80 02/20/2023 0.83 02/19/2023 0.84 05/14/2021 0.83 03/19/2021 0.82 01/07/2021 0.65 Bilirubin, Total (mg/dL) Date Value 03/20/2023 0.4 08/27/2020 0.4 ALT (U/L) Date Value 03/20/2023 17 05/14/2021 33 AST (U/L) Date Value 03/20/2023 18 05/14/2021 26 Estimated Creatinine Clearance: 111.6 mL/min (based on SCr of 0.8 mg/dL). ALLERGIES Allergen Reactions Metformin Diarrhea Indication for Warfarin: Atrial fibrillation, unspecified type (hcc) Paroxysmal atrial fibrillation (hcc) halfway (current) use of 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 Anticoagulation Episode Summary Current INR goal: 2.0-3.0 Assessment: INR result of 1.4 is SUBtherapeutic due to: unknown cause - did not speak to patient Pt is to begin holding warfarin today for 5 days prior to her procedure on 05/20 Plan: Current Warfarin Dosing As of 05/14/2023 Full warfarin instructions: 05/15: Hold; 05/16: Hold; 05/17: Hold; 05/18: Hold; 05/19: Hold; Otherwise 5 mg every day Left voice message Advised patient to begin holding warfarin today for her procedure, and when approved to restart warfarin after her procedure she should increase her warfarin dosage to 5mg daily Next lab INR check scheduled on 06/01/2023 Vijaya Rojas RPh Clinical Pharmacist, Pharmacy Anticoagulation Clinic Pharmacy Anticoagulation Clinic Pager: [phone]. INR is still in process. Pt will be f/u once INR is posted. Pt has a set warfarin dose documented in this encounter [facility] 05-13-2023 Instructions Paola Wylie PA-C - 05/13/2023 11:05 AM EDT PATIENT PREOPERATIVE INSTRUCTIONS No ref. provider found has scheduled you for your procedure at this surgery center: [facility] Scheduling Office: [phone] --[address] [place] [address]. Please read below carefully for your personalized instructions. Dietary Restrictions: - No solid food after midnight. - You may have 12 ounces of clear liquids (water, clear juices such as apple juice or gatorade, carbonated beverages, clear tea, black coffee, jello) until 2 hours before scheduled arrival at facility. Is Patient Diabetic:No Medications: Unless instructed differently below, stay on all of your medications until your surgery. Approved medications to take the morning of surgery with a sip of water: Pantoprazole, metoprolol, sotalol If you start any new medications after today's visit, please contact the surgeon's office. Blood Thinning Medications: - Stop NSAIDS (Ibuprofen, Advil, Aleve, Motrin, Celebrex, Mobic, etc.) 7 days before surgery, as directed by your surgeon. - Stop Coumadin 5 days before surgery or as directed by physician. - Stop Vitamin E, ALL multi-vitamins, herbals and dietary supplements 7 days before surgery. - You may take Tylenol (Acetaminophen) or any of your pain medications that do not contain aspirin or NSAIDS as needed. Important Reminders: - If you use CPAP/BIPAP, bring the machine with you to the surgery center. - If you are prescribed inhalers for breathing, continue using them. - Candy, mints, and tobacco products are NOT permitted the morning of surgery. - Hearing aids, dentures and glasses may be worn the morning of surgery. - NO jewelry, body piercings, makeup, hairpins or contacts are to be worn the day of surgery. If you develop symptoms such as a fever, cold, or flu, or have other changes to your health within TWO DAYS of scheduled surgery or the morning of surgery, please contact the surgery center above. Personal Belongings: -Please have photo ID and insurance cards. -If you do not have a copy of advance directives on file with us, please bring a copy with you on the day of surgery. - Leave ALL valuables and money at home or with family members. For Outpatient Procedures: - YOU MUST HAVE A RESPONSIBLE DECK SCALER TAKE YOU HOME. A FOREST FIRE WARDEN OR INSTALLATION TECH CANNOT BE MADE A RESPONSIBLE DECK SCALER. - We recommend that a responsible person stays with you overnight to take care of you. - You cannot stay in a hotel alone after outpatient surgery. You will not be permitted to have your surgery, if you do not have someone to take care of you. Arrival Time for Surgery: - To obtain your arrival time for surgery, call your physician's office the day before your surgery. - If your surgery is scheduled for Thursday, call the Thursday before. Your surgeon s medical office scheduler will tell you what time to call the office. - If you have not reached the departmental medical office scheduler by 5 P.M., call [phone] after 5 P.M. the day before your surgery. Please be aware that emergency situations arise, which may delay or change your surgical time. If this happens, we will notify you as soon as possible and regret any inconvenience. If you already have an Advance Directive, please fax a copy to [phone] or email to for it to be added to your chart. If you do not have an Advance Directive, you can find the appropriate form and more information at [email or web address]. We recommend that you complete the Advance Directive form found on the website and bring it with you the day of your surgery. It can be witnessed and scanned into your chart that day. Paola Wylie PA-C documented in this encounter [facility] 05-13-2023 History and physical note PREANESTHESIA CONSULT CLINIC This is a virtual visit. It required patient-provider interaction for the medical decision making as documented below. Patient has been identified by name and date of : Yes Reason for call: PACC visit Accompanied by: Self Patient name: Chavo Tom This is a virtual visit using [employer] video visit. It required patient-provider interaction for the medical decision making as documented below. I have communicated my name and active licensure. The patient's identity and physical location were verified at the time of this visit. Either the patient or their legal area representative has been informed of the risks and benefits of and alternatives to treatment through a remote evaluation and consents to proceed with the evaluation remotely. Scheduled Surgery: LAPAROSCOPIC CHOLECYSTECTOMY WITH GRAMS CHIEF COMPLAINT: Patient presents with: Anesthesia Consult HPI: This is a 42 year old female who presents with gallstones. She reports history of RUQ pain for months. Symptoms worse after eating. She went to local ED ~2 weeks ago with RUQ pain. ACTIVE PROBLEM LIST Impaired Glucose Tolerance Vaginal High Risk Hpv Dna Test Positive Palpitation Hocm (Hypertrophic Obstructive Cardiomyopathy) (Hcc) Body Mass Index 40.0-44.9, Adult ([facility]) Atrial Fibrillation (Hcc) Ventricular Tachyarrhythmia (Hcc) Ymfrd-Lcomqyvhl-Xdulb (Wpw) Syndrome Thyroid Nodule, Cold Icd (Implantable Cardioverter-Defibrillator) in Place Pre-Op Testing Discharge Planning Issues Clinical summary Acute On Chronic Diastolic (Congestive) Heart Failure (Hcc) Summary Dilated Cardiomyopathy (Hcc) Left Bundle Branch Block Paroxysmal Atrial Fibrillation (Hcc) Class 3 Severe Obesity Due to Excess Calories Without Serious Comorbidity With Body Mass Index (Bmi) of 45.0 to 49.9 in Adult (Hcc) Patient Under Care of Multiple Providers Metabolic Syndrome Pre-Diabetes Vitamin D Deficiency, Unspecified Quinton (Obstructive Sleep Apnea) History of Atrial Fibrillation S/P Ablation of Accessory Bypass Tract Syncope Obesity, Class II, Bmi 35-39.9 S/P 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 Cardioverted with 150j under sedation DEFIBRILLATOR SURGERY 02/24/2014 ICD, redo WPW & atrial fib ablation EPS: DEFIB. SURGERY 05/16/2021 Exchange of a [employer] SQ-RX 1010 pulse generator with a BOSTON LAP GASTRIC BYPASS/JENNY-EN-Y 02/18/2023 150cmantecolic jenny, 70cm bp limb PAST SURGICAL HISTORY OF 07/06/2014 WPW ablation PAST SURGICAL HISTORY OF 11/21/2019 MVr, myectomy, PVI, LAAC TYMPANOSTOMY LOCAL/TOPICAL ANESTHESIA Right FAMILY HISTORY Problem Relation Age of Onset Lipids Father Diabetes Mother Hypertension Mother Thyroid Mother Coronary Artery Disease Mother CABG 2012 Diabetes Brother Heart Sister HOCM s/p ICD None Maternal Grandfather age 46-"suddenly" Heart Maternal Grandmother OR age 72 Alcohol/Drug Paternal Grandfather ETOH Diabetes Maternal Aunt Diabetes Maternal Uncle Colon Cancer No Family History Anesthesia Problems No Family History Social History: Social History Tobacco Use Smoking status: Never Smokeless tobacco: Never Vaping Use Vaping Use: Never used Substance Use Topics Alcohol use: No Drug use: No MEDICATIONS: Current Inpatient Medications Current Outpatient Medications Medication Sig doxycycline (VIBRA-TABS) 100 mg tablet Take 0.5 tablets by mouth twice daily. warfarin (COUMADIN) 5 mg tablet Take 1 tablet by mouth once daily. Or as directed by anticoagulation clinic. pantoprazole DR (PROTONIX) 40 mg tablet Take 1 tablet by mouth once daily. cholecalciferol, vitamin D3, (VITAMIN D3 ORAL) Take by mouth. tacrolimus (PROTOPIC) 0.03 % ointment Apply to affected area twice daily. metoprolol succinate ER (TOPROL XL) 25 mg 24 hr tablet Take 1.5 tablets by mouth twice daily with meals. sotalol (BETAPACE) 120 mg tablet Take 1 tablet by mouth twice daily. cycloSPORINE (RESTASIS) 0.05 % ophthalmic emulsion Use 1 Drop in both eyes twice daily. CPAP/BIPAP/OTHER New set: Settings 4 - 8 cm H2O, suitable mask per pt preference (nasal or pillow opt), chin strap, head gear, humidity, tubing, lifetime supplies. G47.33 QUINTON Current Facility-Administered Medications Medication Dose Route Frequency perflutren lipid microspheres 1.3 mL in NaCl (PF) 0.9% 10 mL injection (DEFINITY) INTRAVENOUS DIRECTED PRN sodium chloride 0.9 % (flush) 10 mL (BD POSIFLUSH) 10 mL INTRAVENOUS DIRECTED PRN ALLERGIES: ALLERGIES Allergen Reactions Metformin Diarrhea REVIEW OF SYSTEMS: PAIN ASSESSMENT: General: +weight loss- ~60 lbs since 02/2023 gastric bypass Neuro: No history of TIA's, stroke, [employer] tumor, impaired sensorium, hemiplegia, paraplegia or quadraplegia. No neurological symptoms or problems. Respiratory: No history of current cough or dyspnea, or pneumonia in the past 6 weeks. +QUINTON- uses CPAP nightly Cardiovascular: Follows with Dr. Ortiz, last OV 11/25/2022 and per note- IMPRESSION: Ms. Tom is a 42 year old woman with HCM (with mid-cavitary obstruction) and PAF, that underwent successful myectomy with mitral valve repair with papillary muscle reorientation in 2019. Continued good surgical results. Also with PAF, on Sotalol per EP. Clinically well." Patient denies any recent chest pain, MORENO or palpitations GI: +see HPI +recent gastric bypass 02/2023, down 60 lbs : No history of dysuria, frequency or incontinence,, stones or chronic kidney disease FIRE LIEUTENANT: Negative for abnormal vaginal bleeding, abnormal vaginal discharge. : Denies, Patient's last menstrual period was 01/06/2012 (approximate). Endocrine: No history of diabetes. Has not taken steroids within the past 30 days. No history of endocrinological symptoms or problems. Hematology: +taking coumadin and follows with coumadin clinic Oncology: No history of CA metastasis, chemo within 30 days, or radiotherapy within 90 days. Has not lost 10% of body wt in 6 months. No history of oncological symptoms or problems. Psych: No history of psychiatric symptoms or problems. Musculoskeletal: Negative for joint pain or swelling, back pain or muscle pain. Skin: Negative for lesions, rash and itching. PHYSICAL EXAM: VITAL SIGNS: Ht 5' 8" (1.73m) Wt 214 lb (97.1kg) LMP 01/06/2012 BMI 32.55 kg/(m^2). GENERAL: alert and appropriate, in no distress, well-hydrated, well nourished, and happy, smiling, interactive BMI 32.55 SKIN: no rash noted HEAD: normocephalic, no abnormality or lesion noted EYES: no injection and visual acuity is grossly normal EARS: hearing grossly normal NOSE: external nose normal without rhinorrhea OROPHARYNX: moist mucus membranes NECK: full ROM, no cervical LNs noted RESPIRATORY: breathing non-labored CHEST: equal chest rise with normal respiratory effort HEART: RRR, confirmed with carotid pulse exam ABDOMEN: soft and non-tender BACK: back normal in appearance, spine with FROM NEUROLOGIC: no obvious deficit Diagnostic tests reviewed for today's visit: Lab Value Units Date High Low HB 13.0 g/dL 03/20/2023 15.5 11.5 HCT 38.0 % 03/20/2023 46.0 36.0 WBC 6.22 k/uL 03/20/2023 11.00 3.70 PLT 306 k/uL 03/20/2023 400 150 NA 139 mmol/L 03/20/2023 144 136 K 3.7 mmol/L 03/20/2023 5.1 3.7 GLUC 103 mg/dL 03/20/2023 99 74 BUN 13 mg/dL 03/20/2023 21 7 CREAT 0.80 mg/dL 03/20/2023 0.96 0.58 PTSEC 13.3 sec 05/07/2023 13.0 9.7 INR 1.3 no uni* 05/07/2023 1.3 0.9 INR 1.8 no uni* 03/16/2023 1.2 0.8 APTT No results within date range. ALT 17 U/L 03/20/2023 38 7 AST 18 U/L 03/20/2023 35 13 TBILI 0.4 mg/dL 03/20/2023 1.3 0.2 TSH No results within date range. Lab Value Units Date High Low HCGQT No results within date range. UHCG No results within date range. HCG, BODY* No results within date range. Lab Value Units Date High Low ABORHD No results within date range. ABSCREEN No results within date range. Hemoglobin A1C (%) Date Value 09/10/2022 5.4 01/07/2021 6.0 04/27/2020 5.7 11/25/2019 5.6 HBA1C, Cyn (%) Date Value 11/05/2011 5.4 Most recent labs Assessment/Plan Tekxb-Zquxhqlng-Wkyfo (WPW) syndrome Assessment: s/p ablation 2013 Stable with metoprolol and sotalol Follows with cardiology Dr. Jayjay Ortiz, last visit 11/25/22 Paroxysmal atrial fibrillation (HCC) Assessment: s/p ablation 2013, last known episode 06/2022 Taking metoprolol and sotalol and coumadin Denies any recent palpitations Follows with cardiology Dr. Jayjay Ortiz, last visit 11/25/22 HOCM (hypertrophic obstructive cardiomyopathy) (HCC) Assessment: S/P septal myectomy, MVr, papillary muscle reorientation, PVI, and LAAC (11/22/[address] Pastrana) Follows with cardiology Dr. Jayjay Ortiz, last visit 11/25/22 ICD (implantable cardioverter-defibrillator) in place Assessment: placed ~5 years ago, replaced 2021 Last in person ICD Check 02/2023 Acute on chronic diastolic (congestive) heart failure (HCC) Assessment: stable EF = 70 5% (2D biplane) Normal left ventricular diastolic function Follows with cardiology Dr. Jayjay Ortiz, last visit 11/25/22 QUINTON (obstructive sleep apnea) Assessment: uses CPAP nightly S/P gastric bypass Assessment: 02/2023, down 60 lbs Pre-diabetes Assessment: Hemoglobin A1C (%) Date Value 09/10/2022 5.4 01/07/2021 6.0 Obesity, Class I, BMI 30-34.9 Assessment: BMI 32.5 METS: Climb a flight of stairs or walk up a hill (5.50 METs) Patient denies any chest pain or undue shortness of breath with the above physical activity. ASA Class: 3 ANESTHESIA FINDINGS: Intubation History: No history of difficult intubation Significant Anesthesia Considerations: Postop nausea/vomiting Airway Exam: General: Normal appearance Mallampati Score is CLASS II ULBT: Class II - Lower incisors can bite the upper lip below the nita line Neck: Normal appearance and function, Distance from hyoid to mentum during neck extension is at least 3 finger breaths Mouth: Normal tongue size and Mouth opening greater than 2 finger breaths Dentition: missing teeth Airway History: No abnormal airway history STOP BANG Score: QUINTON uses CPAP/BiPAP PLAN This patient is optimally prepared for surgery. Coumadin- pt states that she was instructed to hold 5 days prior to surgery, per Coumadin clinic CONSULTS: Patient does not require consults for optimization at this time. The Following Tests/Procedures Have Been Initiated: Labs not indicated per PACC protocol, EKG not indicated per PACC protocol INR to be done 05/14/2023 Planned Anesthetic: Per anesthesia choice Instructions Given to Patient: Patient given verbal instructions and voices comprehension and compliance. Copy sent electronically via My Chart, email, or mobile device. I spent more than 30 minutes yxsi-as-wqzd with the patient and over half the time was devoted to counseling and/or coordination of care. SIGNATURE: Paola Wylie PA-C PATIENT NAME: Chavo Tom DATE: 05/13/2023 TIME: 10:46 AM PAGER/CONTACT #: documented in this encounter [facility] 05-10-2023 Miscellaneous Notes Patient is on warfarin for a-fib. CHADS2-Vasc Score Breakdown 2 Total Score 1 Female 1 History of CHF Per [facility] pt can hold warfarin without lovenox. Patient was previously on lovenox in February d/t bridge to warfarin post-procedure (was on eliquis prior to procedure). Pt is not indicated for bridge. Can hold prior to surgery and test INR as directed by ELIZA Douglas PharmD documented in this encounter [facility] 05-08-2023 Miscellaneous Notes [facility] Anticoagulation Clinic Anticoagulation Episode Summary Anticoagulation Care Providers Provider Role Specialty Phone number Jayjay Ortiz MD Referring Cardiology [phone] Chavo Tom is a 42 year old year old female patient being evaluated today for a Telemanagement visit. Patient is currently on the following anticoagulant(s) Warfarin. Labs PT INR (no units) Date Value 11/17/2019 1.0 INR (no units) Date Value 05/07/2023 1.3 04/23/2023 1.3 04/16/2023 1.3 INR (POCT) (no units) Date Value 03/16/2023 1.8 Hemoglobin (g/dL) Date Value 03/20/2023 13.0 05/14/2021 14.4 Hematocrit (%) Date Value 03/20/2023 38.0 05/14/2021 44.4 Platelet Count (k/uL) Date Value 03/20/2023 306 05/14/2021 307 Creatinine (mg/dL) Date Value 03/20/2023 0.80 02/20/2023 0.83 02/19/2023 0.84 05/14/2021 0.83 03/19/2021 0.82 01/07/2021 0.65 Bilirubin, Total (mg/dL) Date Value 03/20/2023 0.4 08/27/2020 0.4 ALT (U/L) Date Value 03/20/2023 17 05/14/2021 33 AST (U/L) Date Value 03/20/2023 18 05/14/2021 26 Estimated Creatinine Clearance: 111.8 mL/min (based on SCr of 0.8 mg/dL). 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 Anticoagulation Episode Summary Current INR goal: 2.0-3.0 Assessment: INR result of 1.3 is SUBtherapeutic due to: No obvious cause Plan: Current Warfarin Dosing As of 05/08/2023 Full warfarin instructions: 2.5 mg every Tue; 5 mg all other days Called and spoke to patient/caregiver Advised patient to increase total weekly regimen Patient scheduled for lap vinicio on 05/20; will send to [facility] dispute resolution analyst to determine perioperative anticoagulation management; patient advised she would be contacted early next week to discuss plan; patient does have around 7 Lovenox injections at home from surgery in February Next lab INR check scheduled on 05/14/2023 Patient verbalizes understanding of the plan. Patient denies need for refills. Next Action for Anti coag Management: [facility] bridge plan Audra Mccollum [facility] Clinical Pharmacist, Pharmacy Anticoagulation Clinic Pharmacy Anticoagulation Clinic Pager: [phone]. documented in this encounter [facility] 05-07-2023 Miscellaneous Notes BMI SPECIALTY CARE COORDINATION TELEPHONE ENCOUNTER Spoke to patient regarding upcoming Lap Vinicio scheduled 05/20/23. Patient is advised the following: Do not wear jewelry, body piercings, makeup, nail dutch, hairpins, or contacts on the day of surgery. Hold x 7 days prior to procedure:NSAIDS, vitamins, OTC meds. Patient denies use of inhalers or diabetic medications. Patient agreed to contact cargo checker regarding Coumadin and ICD. outsole scheduler will call the business day before in the afternoon to advise arrival time and place. Shower with anti-bacterial soap (Dial), clean towel, clean clothes. No lotions, powder, or deodorant. Bring a list of current meds and allergies. Eat light the day before. Liquids only after 6pm. NPO after midnight. Fax [place] paperwork to provided number. Call with questions, to provided number. Clementina Ny RN May 07, 2023 4:19 PM documented in this encounter [facility] 05-07-2023 History of Present illness Narrative BARIATRIC AND GENERAL SURGERY VIRTUAL VISIT FOLLOW UP I have communicated my name and active licensure. The patient's identity and physical location were verified at the time of this visit. Either the patient or their legal area representative has been informed of the risks and benefits of -- and alternatives to -- treatment through a remote evaluation and consents to proceed with the evaluation remotely. I had a virtual visit with Ms. Tom today for follow up of gallstones -this is a new complaint has not previously been evaluated.. UPDATED HISTORY: She underwent a laparoscopic Jenny-en-Y gastric bypass in 02/08/2023. She had a preoperative BMI of 35.28, and has lost a total of roughly 40 pounds since the time of her operation. She is on a On 04/06 that she was seen in the emergency room near her home. Time of admission she had stated she had a right upper quadrant abdominal pain that woke her from sleep roughly 4 AM. This is sharp and stabbing in nature and was coming and going. There was some worsening when she had a snack. The patient reports a history post prandial right upper quadrant pain. This pain is made worse by eating, specifically turkey burger and string cheese foods. The duration of the patient's symptoms are several hours. She has tried pain meds and nausea - she had not needed to use them since the ER. There has not no been associated darkened urine, acholic stools. She has had bright red blood in the stool. Workup to this point has included: Ultrasound: -05/03/2023: Multiple large gallstones present within the gallbladder, positive ultrasonic Stuart sign no gallbladder wall thickening nor pericholecystic fluid to suggest acute cholecystitis. On my review of the gallbladder wall was just under the upper limit of normal at 0.38 cm. -12/11/2022 cholelithiasis with no sonographic evidence for acute cholecystitis nor biliary dilatation. There is a right-sided hyperechoic lesion -11/25/2021: Similar findings. CT: Not done HIDA: Not done MRCP: Not done PHYSICAL FINDINGS OF NOTE: General - Normal, healthy, cooperative, in no acute distress Able to interact verbally by video conference Pulmonary - respiratory effort normal Abdominal - Not performed Motor - patient seen sitting with Normal appearing strength and coordination Medical Decision Making: Assessment Assessment & Diagnosis: Chavo Tom is a 42 year old female with a history of hypertrophic cardiomyopathy status post septal cardia myotomy, Yzihf-Fnzovcptr-Bwkbu and paroxysmal A-fib status post ablation, with persistent A-fib on coumadin. She underwent a Jenny-en-Y gastric bypass on 02/08/2023. Data Reviewed: Tests & Documents Reviewed/ordered: Review of prior notes from ER visit Review of Imaging: Ultrasound Review of Labs: CBC, BMP I have independently interpreted: Ultrasound I have discussed Chavo Tom's treatment plan and/or results with the patient. Treatment plan: We discussed the treatment options for symptomatic cholelithiasis at length. Treatment options include observation, medications, and surgery. Observation is appropriate for the asymptomatic patient with no evidence of cholecystitis, no sequelae of gallstones (i.e. pancreatitis or choledocholithiasis), and no associated polyps/masses. Medications can be prescribed to potentially reduce the incidence of gallstone precipitation, with ursodiol being the most commonly prescribed medication. However, this is only effective when the stones are small and the patient is on the medication for indefinite period of time. Furthermore, the main side effect of the medication includes nausea/vomiting and abdominal pain, which is what the patient wants to avoid in the first place. For her condition, urosdiol is not a viable option. Surgical therapy entails the removal of the gallbladder at the level of the cystic duct. The operation is performed laparoscopically through small incisions, but it carries a 1-3% risk of conversion to open in certain cases. If an open operation is performed, the incision, the post-op pain, and the length of stay at the hospital would be significantly higher than the laparoscopic route. The risks of laparoscopic cholecystectomy includes (but are not limited to) bleeding, infection, bile leak (1-2% incidence), bile duct injury (0.2%), and the possibility that her symptoms may not completely resolve after this procedure. After reviewing all of the patient's options, she chose to pursue surgery. Surgical plan is: laparoscopic cholecystectomy with cholangiogram (will also check mesenteric defects) Anticipated Anesthesia level: General Consent has not been signed in clinic Preoperative anesthesia visit; yes Additional clearances or evaluations needed: cardiology for anticoagulation plan (Dr. Ortiz, will send message) Anticipated length of stay: outpatient surgery For bowel movements - trial milk of magnesia, then daily miralax. Risk of morbidity, mortality and/or complications of treatment plan: high I spent a total of 35 minutes on the date of the service which included preparing to see the patient, ziwe-er-[id number] patient care, completing clinical documentation, obtaining and/or reviewing separately obtained history, counseling and educating the patient/family/caregiver, independently interpreting results (not separately reported), and communicating results to the patient/family/caregiver. Esperanza Mercer MD. 05/07/2023 documented in this encounter [facility] 05-06-2023 Miscellaneous Notes [facility] SPECIALTY CARE COORDINATION TELEPHONE ENCOUNTER Left a message on the patient's voicemail requesting a call back to provided number to discuss scheduling an appointment regarding gall bladder symptoms. Clementina Ny RN May 06, 2023 9:52 AM documented in this encounter [facility] 05-04-2023 Miscellaneous Notes [facility] SPECIALTY CARE COORDINATION TELEPHONE ENCOUNTER Left a message on the patient's voicemail requesting a call back to provided number in regards to MyChart message with noted concerns of constipation. Second MyChart message states that the patient was evaluated in ED with diagnosis of gall stones. Will obtain radiology results and schedule appt upon patient's return call. Clementina Ny RN May 04, 2023 1:59 PM documented in this encounter [facility] 04-17-2023 Miscellaneous Notes Patient returned call and went over notes below from Rojas DE LEON with understanding. Patient said she has not missed any doses, no change in diet and no change in medications, everything is still the same. Left message for patient to return call. Janelle Oconnell Ma Please ask if there were missed doses or change in medication or diet. Take extra 2.5mg today and Thursday and resume current schedule. Recheck INR in 1 week. Thanks, Rojas Palma PA-C Last INR: PT INR 1.3 04/16/2023 Current dose of coumadin is: 2.5 mg every Thu, Thu, Thu; 5 mg all other days. Previous INR (date and result): 2.2 04/03/23 Additional Clinical Information or narrative: no documented in this encounter [facility] 04-14-2023 History of Present illness Narrative CMN RECEIVED BY [employer] VIA FAX, COMPLETED, AND PLACED IN PROVIDER MAILBOX FOR SIGNATURE Juan Antonio Bower, Administration Assistance 04/14/23 [facility] SENDING CMN: Andrey SIGNED AND DATED CMN, FAXED TO DME & CONFIRMATION PAGE RECEIVED: 04/16/23 documented in this encounter [facility] 04-09-2023 Miscellaneous Notes Patient notified she can come in early am which ever day thu/ works for her Orders for standing PT/INR are placed. She can do it what ever day works. 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 Per note from 04/03 ms (see below), pt is supposed to return for her next INR on 04/17/23 which is a Thursday. Pt is asking to have it drawn on or due to work schedule. She goes in at 7 am and gets off at 330 pm. Please call pt and let her know. Per 04/03 note, Dear Chavo Tom, Thank you for testing your INR to monitor your warfarin medicine Your INR of 2.2 is within your target range of 2.0-3.0 Please continue to take your current weekly dosing Current Warfarin Dosing As of 04/03/2023 Full warfarin instructions: 2.5 mg every Thu, Thu, Thu; 5 mg all other days If you have any medication changes, bleeding/bruising, significant changes in your diet, upcoming procedures, other questions/concerns, or need refills on your warfarin please call our office at [phone]. Your next INR testing date is 04/17/2023 Have a great day! Scooby Del Cid [facility] Clinical Pharmacist Pharmacy Anticoagulation Clinic Upon further review, patient will need to be on warfarin for at least three months. Patient started 03/10/2023. A RCS PAF was generated and can be found under [place] TM list in excel. We can start home INR meter enrollment towards the end of May. Bernardo Zamora, Chief Data Officer (spray gun striper) Pharmacy Anticoagulation Clinic Noted. We will need to generate a from from JEANETH/MDINR as patient's insurance is not covered with [id number]. Bernardo Zamora Chief Data Officer (spray gun striper) Pharmacy Anticoagulation Clinic Per below- patient requests enrollment in PAC home INR monitoring program. Routing to PAC call center staff to work on enrollment process. Rojas Palma, Lora Paulino, Could you help me enroll this patient in home coumadin monitoring. She wants to change from having to travel to [facility]. Thanks much, Rojas documented in this encounter [facility] 03-27-2023 Miscellaneous Notes [facility] Ambulatory Pharmacy Anticoagulation Clinic Anticoagulation Episode Summary Anticoagulation Care Providers Provider Role Specialty Phone number Jayjay Ortiz MD Referring Cardiology [phone] Chavo Tom is a 42 year old year old female patient being evaluated today for a Lab INR. Patient is currently on the following anticoagulant(s) Warfarin. Labs PT INR (no units) Date Value 11/17/2019 1.0 INR (no units) Date Value 03/27/2023 1.5 03/20/2023 2.5 03/13/2023 4.1 INR (POCT) (no units) Date Value 03/16/2023 1.8 Hemoglobin (g/dL) Date Value 03/20/2023 13.0 05/14/2021 14.4 Hematocrit (%) Date Value 03/20/2023 38.0 05/14/2021 44.4 Platelet Count (k/uL) Date Value 03/20/2023 306 05/14/2021 307 Creatinine (mg/dL) Date Value 03/20/2023 0.80 02/20/2023 0.83 02/19/2023 0.84 05/14/2021 0.83 03/19/2021 0.82 01/07/2021 0.65 Bilirubin, Total (mg/dL) Date Value 03/20/2023 0.4 08/27/2020 0.4 ALT (U/L) Date Value 03/20/2023 17 05/14/2021 33 AST (U/L) Date Value 03/20/2023 18 05/14/2021 26 Estimated Creatinine Clearance: 116.3 mL/min (based on SCr of 0.8 mg/dL). ALLERGIES Allergen Reactions Metformin Diarrhea Indication for Warfarin: 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 Paroxysmal atrial fibrillation (hcc) Anticoagulation Episode Summary Current INR goal: 2.0-3.0 Assessment: INR result of 1.5 is SUBtherapeutic due to: No obvious cause Plan: Current Warfarin Dosing As of 03/27/2023 Full warfarin instructions: 03/27: 5 mg; 03/28: 5 mg; 03/29: 2.5 mg; 03/30: 5 mg; 03/31: 2.5 mg; 04/01: 5 mg; 04/02: 2.5 mg Called and spoke to patient/caregiver Advised patient to increase total weekly regimen Next lab INR check scheduled on 04/03/2023 Patient verbalizes understanding of the plan. Patient denies need for refills. Jackie Estrada RPh Clinical Pharmacist, Pharmacy Anticoagulation Clinic Pharmacy Anticoagulation Clinic Pager: [phone]. PATIENT CALL Patient called call center regarding results. Patient was on cephalexin from 03/20-03/27 and took last dose this morning. PT INR (no units) Date Value 11/17/2019 1.0 INR (no units) Date Value 03/27/2023 1.5 03/20/2023 2.5 03/13/2023 4.1 INR (POCT) (no units) Date Value 03/16/2023 1.8 Patient can be reached at [phone]. Patient stated MD would be willing to monitor warfarin as patient lives in [place]. She will reach out to MD to place a referral to [place] [facility] where they do fingerstick readings. Patient was agreeable to continue to follow with us and contact us when she is scheduled for coumadin clinic at [place]. Pharm phone call placed. Bernardo Zamora ([place]) documented in this encounter [facility] 03-26-2023 History of Present illness Narrative 42 year old female with c/o blood in urine. Has not seen me in over a year Still having symptoms with urinary frequency, 03/20/2023 presented to [facility] with complaint of dysuria over period of 3 weeks. Identified difficulty emptying bladder per notes. Recent gastric bypass 02/18/2023 Dr[facility]. Patient identified to provider that she is not sexually active, identified pain is 3 out of 10 at that time, no fever, chills, sweats, nausea, vomiting, discharge, visible hematuria, risk, flank pain. This was verified with the patient today. Urine was positive for leukocyte esterase, proteinuria, ketones and bilirubin: Sent for culture. Patient was started on Keflex for 7 days which she has competed but states only made a little difference. Orders were placed for lab work as follows: Component Latest Ref Rng & Units 03/16/2023 03/20/2023 WBC 3.70 - 11.00 k/uL 6.22 RBC 3.90 - 5.20 m/uL 4.42 Hemoglobin 11.5 - 15.5 g/dL 13.0 Hematocrit 36.0 - 46.0 % 38.0 MCV 80.0 - 100.0 fL 86.0 MCH 26.0 - 34.0 pg 29.4 MCHC 30.5 - 36.0 g/dL 34.2 RDW-CV 11.5 - 15.0 % 14.6 Platelet Count 150 - 400 k/uL 306 MPV 9.0 - 12.7 fL 12.6 Neut% % 51.1 Abs Neut (ANC) 1.45 - 7.50 k/uL 3.18 Lymph% % 34.4 Abs Lymph 1.00 - 4.00 k/uL 2.14 [place]% % 7.9 Abs [place] <0.87 k/uL 0.49 Eosin% % 5.6 Abs Eosin <0.46 k/uL 0.35 Baso% % 0.8 Abs Baso <0.11 k/uL 0.05 Immature Gran % % 0.2 IMMATURE GRANS (ABS) <0.10 k/uL <0.03 NRBC /100 WBC 0.0 Absolute nRBC <0.01 k/uL <0.01 DTYPE Auto Protein, Total 6.3 - 8.0 g/dL 6.2 (L) Albumin 3.9 - 4.9 g/dL 4.0 Calcium 8.5 - 10.2 mg/dL 9.1 Bilirubin, Total 0.2 - 1.3 mg/dL 0.4 Alkaline Phosphatase 34 - 123 U/L 73 AST 13 - 35 U/L 18 ALT 7 - 38 U/L 17 Glucose 74 - 99 mg/dL 103 (H) BUN 7 - 21 mg/dL 13 Creatinine 0.58 - 0.96 mg/dL 0.80 Sodium 136 - 144 mmol/L 139 Potassium 3.7 - 5.1 mmol/L 3.7 Chloride 97 - 105 mmol/L 105 CO2 22 - 30 mmol/L 24 Anion Gap 9 - 18 mmol/L 10 eGFR >=60 mL/min/1.73m 94 GLUCOSE UA (POCT) Negative mg/dL Negative BILIRUBIN UA (POCT) Negative Moderate (A) KETONE UA (POCT) Negative mg/dL >=160 (A) SPECIFIC GRAVITY UA (POCT) 1.005 - 1.030 1.025 HEMOGLOBIN/BLOOD UA (POCT) Negative Moderate (A) PH UA (POCT) 4.5 - 8.0 5.5 PROTEIN UA (POCT) Negative mg/dL Negative UROBILINOGEN UA (POCT) Normal E.U./dL 0.2 NITRITE UA (POCT) Negative Negative LEUKOCYTES UA (POCT) Negative Trace (A) COLOR UA (POCT) Other CLARITY UA (POCT) Clear INR (POCT) 0.8 - 1.2 1.8 (H) Internal Quality Check Acceptable PT Sec 9.7 - 13.0 sec 25.1 (H) PT INR 0.9 - 1.3 2.5 (H) Culture <10,000 CFU/ml Normal urogenital porsha Paroxysmal atrial fibrillation (hcc) (primary encounter diagnosis) Dilated cardiomyopathy (hcc) Acute on chronic diastolic (congestive) heart failure (hcc) Icd (implantable cardioverter-defibrillator) in place Hocm (hypertrophic obstructive cardiomyopathy) (hcc) Gipdb-orymgmcpi-oywgp (wpw) syndrome Left bundle branch block Ventricular tachyarrhythmia (hcc) Palpitation Chronic anticoagulation Cardiovascular interval hx: Doing really well. Has been seeing preventive cardiology and was placed on semaglutide which is significantly helped weight loss. Patient is exercising routinely and feels that she is gaining strength and durability. 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 03/19/21 echo: LV size and LV SF WNL, grade 2 left ventricular diastolic dysfunction, ejection fraction 72%, no abnormal wall motion. RV size and RV SF WNL, incomplete tricuspid regurgitation with RVSP estimated 28 mmHg, estimated RAP 3 mmHg. LA mildly dilated, normal pulmonary flow, RA normal size with pacer wires evident. At rest, no mitral leaflet S.A.M., mild chordal S.A.M., 1-2+ MR, peak LVOT gradient 6 mmHg. No significant change with Valsalva. 11/22/2019 S/P septal myectomy, MVr, papillary muscle reorientation, PVI, and LAAC (11/22/[address] Pastrana) 09/22/[address] Oneyda Recinos 1st; Dr. Oneyda Dresing Documentation Coordinator Dr. Gaston Eller HOCM Dr. 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 RV size WNL, RVSP WNL. LA mildly dilated, LVOT gradient 42mHg, with Valsalva 82mmHg poss due to mid septal and papillary Muscle coaptation. FH HOCM Current meds: warfarin 5mg daily- recently switched from Eliquis. Metoprolol succinate ER 1.5mg twice a day with meals Sotalol 120mg twice daily ASA 81mg chewable tablet Use of NTG: No Chest pain, arm, jaw pain, neck, or upper back pain suggestive of angina: No. SOB: Improving with exercise Dyspnea with exertion: improving orthopnea: No racing or irregular heartbeats: No palpitations: No syncopal sx: No but dizzy with lower BPs Unexplainable fatigue No Leg swelling: No Nausea: none diaphoresis: No Heartburn: Yes Claudication: No Smoking: No Following Low cholesterol, high fiber diet? Yes If on statin: muscle aches? No If on statin: GI sx or diarrhea? No Additional history seeing preventative cardiology Dr. Whiting Thyroid nodule, cold Elevated tsh Component Latest Ref Rng & Units 09/12/2020 10/24/2020 01/07/2021 12/20/2021 TSH 0.270 - 4.200 mIU/L 4.280 (H) 3.500 2.550 Microsomal Antibody <5.6 IU/mL <1.0 Thyroglobulin Ab <14.4 IU/mL 21.7 (H) Impaired glucose tolerance Class 3 severe obesity due to excess calories without serious comorbidity with body mass index (bmi) of 45.0 to 49.9 in adult (hcc) Semaglutide 2.4mg 0.75ml SC Weekly 54lbs down from peak weight. Component Latest Ref Rng & Units 06/12/2020 08/27/2020 03/19/2021 12/20/2021 Protein, Total 6.3 - 8.0 g/dL 7.4 7.1 Albumin 3.9 - 4.9 g/dL 4.1 4.0 Calcium 8.5 - 10.2 mg/dL 9.7 9.3 Bilirubin, Total 0.2 - 1.3 mg/dL 0.4 0.3 Alkaline Phosphatase 34 - 123 U/L 86 72 AST 13 - 35 U/L 23 25 Glucose 74 - 99 mg/dL 111 (H) 94 BUN 7 - 21 mg/dL 14 17 Creatinine 0.58 - 0.96 mg/dL 0.80 0.80 Sodium 136 - 144 mmol/L 138 137 Potassium 3.7 - 5.1 mmol/L 4.3 4.4 Chloride 97 - 105 mmol/L 104 105 CO2 22 - 30 mmol/L 22 22 Anion Gap 9 - 18 mmol/L 12 10 ALT 7 - 38 U/L 21 23 eGFR- >60 eGFR-All Other Races . >60 eGFR >=60 mL/min/1.73m 95 Cholesterol, Total <200 mg/dL 140 153 Triglyceride <150 mg/dL 126 112 HDL Cholesterol >39 mg/dL 35 (L) 41 LDL Cholesterol <100 mg/dL 80 90 Non HDL Cholesterol <130 mg/dL 105 112 Fasting Time hrs 12 14 VLDL Cholesterol <30 mg/dL 25 22 TC:HDL Ratio <5.10 4.00 3.73 LDL:HDL Ratio <2.54 2.29 2.20 TSH 0.270 - 4.200 mIU/L 4.120 2.550 Vaginal high risk hpv dna test positive Ligia Lindo. HISTORIES FAMILY HISTORY Problem Relation Age of Onset Lipids Father Diabetes Mother Hypertension Mother Thyroid Mother Coronary Artery Disease Mother CABG 2012 Diabetes Brother Heart Sister HOCM s/p ICD None Maternal Grandfather age 46-"suddenly" Heart Maternal Grandmother OR age 72 Alcohol/Drug Paternal Grandfather ETOH Diabetes Maternal Aunt Diabetes Maternal Uncle Colon Cancer No Family History Anesthesia Problems No Family History PAST MEDICAL HISTORY Diagnosis Date Atrial fibrillation (HCC) CHADS score 0 Cardiomyopathy (HCC) 02/24/14 Family history of hypertrophic cardiomyopathy 01/18/2014 Impaired glucose tolerance 01/21/2011 Left bundle branch block Obesity S/P gastric bypass 02/18/2023 Sleep apnea Ventricular tachyarrhythmia (HCC) 02/2014 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 Cardioverted with 150j under sedation DEFIBRILLATOR SURGERY 02/24/2014 ICD, redo WPW & atrial fib ablation EPS: DEFIB. SURGERY 05/16/2021 Exchange of a [employer] SQ-RX 1010 pulse generator with a [employer] GASTRIC BYPASS/JENNY-EN-Y 02/18/2023 150cmantecolic jenny, 70cm bp limb PAST SURGICAL HISTORY OF 07/06/2014 WPW ablation PAST SURGICAL HISTORY OF 11/21/2019 MVr, myectomy, PVI, LAAC TYMPANOSTOMY LOCAL/TOPICAL ANESTHESIA Right Social History Tobacco Use Smoking status: Never Smokeless tobacco: Never Vaping Use Vaping Use: Never used Substance Use Topics Alcohol use: No Drug use: No ACTIVE PROBLEM LIST Impaired Glucose Tolerance Vaginal High Risk Hpv Dna Test Positive Palpitation Hocm (Hypertrophic Obstructive Cardiomyopathy) (Hcc) Body Mass Index 40.0-44.9, Adult (Hcc) Atrial Fibrillation (Hcc) Ventricular Tachyarrhythmia (Hcc) Ploid-Xyhkwdupk-Jefun (Wpw) Syndrome Thyroid Nodule, Cold Icd (Implantable Cardioverter-Defibrillator) in Place Pre-Op Testing Discharge Planning Issues Clinical summary Acute On Chronic Diastolic (Congestive) Heart Failure (Hcc) Summary Dilated Cardiomyopathy (Hcc) Left Bundle Branch Block Paroxysmal Atrial Fibrillation (Hcc) Class 3 Severe Obesity Due to Excess Calories Without Serious Comorbidity With Body Mass Index (Bmi) of 45.0 to 49.9 in Adult (Hcc) Patient Under Care of Multiple Providers Metabolic Syndrome Pre-Diabetes Vitamin D Deficiency, Unspecified Quinton (Obstructive Sleep Apnea) History of Atrial Fibrillation S/P Ablation of Accessory Bypass Tract Syncope Obesity, Class II, Bmi 35-39.9 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 14 capsule 0 warfarin (COUMADIN) 5 mg tablet Take 1 tablet by mouth once daily. Or as directed by anticoagulation clinic. 30 tablet 1 acetaminophen (TYLENOL) 500 mg tablet Take 2 tablets by mouth every 6 hours. 50 tablet 0 oxyCODONE IR (ROXICODONE) 5 mg immediate release tablet Take 1 tablet by mouth every 8 hours as needed. [address] (PROTONIX) 40 mg tablet Take 1 tablet by mouth once daily. 30 tablet 2 cholecalciferol, vitamin D3, (VITAMIN D3 ORAL) Take by mouth. tacrolimus (PROTOPIC) 0.03 % ointment Apply to affected area twice daily. 30 g 2 metoprolol succinate ER (TOPROL XL) 25 mg 24 hr tablet Take 1.5 tablets by mouth twice daily with meals. 90 tablet 6 sotalol (BETAPACE) 120 mg tablet Take 1 tablet by mouth twice daily. 180 tablet 1 doxycycline (VIBRA-TABS) 100 mg tablet Take 100 mg by mouth twice daily. cycloSPORINE (RESTASIS) 0.05 % ophthalmic emulsion Use 1 Drop in both eyes twice daily. 180 Each 3 CPAP/BIPAP/OTHER New set: Settings 4 - 8 cm H2O, suitable mask per pt preference (nasal or pillow opt), chin strap, head gear, humidity, tubing, lifetime supplies. G47.33 QUINTON 1 Each 11 semaglutide, weight loss, (WEGOVY) 2.4 mg/0.75 mL pen injector Inject 0.75 mL subcutaneously one time a week. 9 mL 3 aspirin 81 mg chewable tablet Take 1 tablet by mouth once daily. (Patient not taking: Reported on 03/20/2023) 90 tablet 1 Current Facility-Administered Medications Medication Dose Route Frequency Provider Last Rate Last Admin perflutren lipid microspheres 1.3 mL in NaCl (PF) 0.9% 10 mL injection (DEFINITY) INTRAVENOUS DIRECTED PRN Jayjay Ortiz MD sodium chloride 0.9 % (flush) 10 mL (BD POSIFLUSH) 10 mL INTRAVENOUS DIRECTED PRN Jayjay Ortiz MD HEPATITIS B(1 of 3 - 3-dose series) Never done COVID-19 VACCINE(1) Never done PNEUMOCOCCAL(2 - PCV) due on 08/28/2021 PAP TESTING due on 01/20/2022 HPV TESTING due on 01/20/2022 DEPRESSION ASSESSMENT Never done EXAM: BP 98/60 Pulse 62 Resp 16 Wt 105.2 kg (232 lb) LMP 01/06/2012 (Approximate) SpO2 100% BMI 35.28 kg/m Pleasant well appearing adult woman, cheerful, in no acute distress. Alert and oriented all spheres. Normal affect and cognition. Speech normal. No deficits to learning or comprehension. Skin warm, dry, pink to lips and nailbeds. Normal turgor. Respirations regular and unlabored. HEENT: NCAT. No scleral icterus or conjunctival injection. TM's clear. Nose and oropharynx free from injection or lesion. Oral membranes moist and pink. No cervical lymph nodes. Thyroid non-tender, no masses, or enlargement. Carotids pulses 2+/4+ without bruits. No JVD with HOB at 30 degrees. Chest is normal shape. Lungs are clear to all he with good air exchange through out. HRRR without murmur or gallop. No lifts, heaves, or rubs. Abdomen: active bowel sounds throughout, soft, nontender, no masses or organomegaly. No CVAT. Extrem: no clubbing or cyanosis. Edema: none. Extremities are warm and pink with prompt capillary refill. ASSESSMENT/PLAN: 1. Abnormal urine - ICD9: 791.9, ICD10: R82.90 (primary diagnosis) Will send - URINE CULTURE - URINALYSIS, WITH MICROSCOPIC 2. Paroxysmal atrial fibrillation (HCC) - ICD9: 427.31, ICD10: I48.0 Stable without recent flare. Can feels when irregular 3. Acute on chronic diastolic (congestive) heart failure (HCC) - ICD9: 428.33, 428.0, ICD10: I50.33 Stable, no current sx 4. Dilated cardiomyopathy (HCC) - ICD9: 425.4, ICD10: I42.0 5. HOCM (hypertrophic obstructive cardiomyopathy) (HCC) - ICD9: 425.11, ICD10: I42.1 6. ICD (implantable cardioverter-defibrillator) in place - ICD9: V45.02, ICD10: Z95.810 Stable, follows with cardiology 7. halfway (current) use of 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 - ICD9: V58.61, ICD10: Z79.01 Switched to warfarin. Asking if she can transfer coumadin management locally. 8. Impaired glucose tolerance - ICD9: 790.22, ICD10: R73.02 Recheck post-surgery - HGB A1C 9. Obesity, Class II, BMI 35-39.9 - ICD9: 278.00, ICD10: E66.9 Weight decreasing - Behavioral intervention and - Pharmacological intervention S/p bariatric surgery Taking supplements 10. QUINTON (obstructive sleep apnea) - ICD9: 327.23, ICD10: G47.33 compliant 11. S/P ablation of accessory bypass tract - ICD9: V45.89, ICD10: Z98.890 - CBC + DIFF - COMP METABOLIC PANEL 12. S/P gastric bypass - ICD9: V45.86, ICD10: Z98.84 - CBC + DIFF - COMP METABOLIC PANEL 13. Flujv-Csamvtocs-Aytrn (WPW) syndrome - ICD9: 426.7, ICD10: I45.6 Stable, quiescent Kylah Palma PA-C documented in this encounter [facility] 03-26-2023 Miscellaneous Notes Imported External Health Plan Information from [employer] (dated 03/10/23). Please allow time delay for documents to appear in [facility]. documented in this encounter [facility] 03-24-2023 History of Present illness Narrative Name: Chavo Tom I have communicated my name and active licensure. The patient's identity and physical location were verified at the time of this visit. Either the patient or their legal area representative has been informed of the risks and benefits of -- and alternatives to -- treatment through a remote evaluation and consents to proceed with the evaluation remotely. Index Surgery Date of Surgery: 02/08/2023 Surgeon: Ruslan Surgical Procedure: Lap RYGB Pre-surgical weight: 118.8 kg (262 lb) Other Bariatric Surgeries None Visit: 1 month Today's Visit: There were no vitals taken for this visit. BMI 34.88 kg/(m^2) Last Visit: Wt: 104.8 kg (231 lb) BMI: 35.12 kg/(m^2) Total weight loss: 33 lbs Emmalena weight: 74.6 kg (164 lb 7 oz) Excess weight: 44.3 kg (97 lb 9 oz) % of excess body weight lost: 118.8 kg (262 lb) (268.55% of excess weight loss) COMPLICATIONS SINCE LAST VISIT?: Other: dysuria. She was evaluated by urgent care for dysuria and incomplete emptying. A urinalysis showed moderate hemoglobinuria, trace leukocytes but no nitrates, and positive ketones. She was given a prescription for cephalexin, but urine culture was negative for UTI. Has a follow up on . She did not have a catheter during her hospital stay. She has had some improvement with the cephalexin. 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 She has been switched to warfarin (Coumadin) and has been regular monitoring her INR. She has met the goal range. She has been checking once weekly and will continue until on Phase 5 diet. DIET INTAKE: compliant with Phase 3 diet taking sufficient fluid DAILY SUPPLEMENTS: Bariatric pal MVI now with iron. She had had an issue keeping the soft chew bariatric fusion. She continues calcium soft chews. nutrition note had recommended bariatric fusion soft tissue multi x2, calcium citrate x3, iron soft chew was x1 Calcium: Calcium Citrate w/ vitamin D (1200 - 1500mg) Multivitamin & Minerals: As above Iron Supplement: included in multi-vitamin Vitamin B12: not currently - will see if is in vitamin Vitamin D3: 2000 IU Other: N/A EXERCISE: walks 30-60 min/day 3 times/ week. She has been walking/light cardio. Not yet introduced weight lifting. Are you attending any Support Groups? Not known Current Outpatient Medications Medication Sig cephALEXin (KEFLEX) 500 mg capsule Take 1 capsule by mouth twice daily for 7 days. warfarin (COUMADIN) 5 mg tablet Take 1 tablet by mouth once daily. Or as directed by anticoagulation clinic. acetaminophen (TYLENOL) 500 mg tablet Take 2 tablets by mouth every 6 hours. oxyCODONE IR (ROXICODONE) 5 mg immediate release tablet Take 1 tablet by mouth every 8 hours as needed. pantoprazole DR (PROTONIX) 40 mg tablet Take 1 tablet by mouth once daily. cholecalciferol, vitamin D3, (VITAMIN D3 ORAL) Take by mouth. tacrolimus (PROTOPIC) 0.03 % ointment Apply to affected area twice daily. metoprolol succinate ER (TOPROL XL) 25 mg 24 hr tablet Take 1.5 tablets by mouth twice daily with meals. sotalol (BETAPACE) 120 mg tablet Take 1 tablet by mouth twice daily. doxycycline (VIBRA-TABS) 100 mg tablet Take 100 mg by mouth twice daily. cycloSPORINE (RESTASIS) 0.05 % ophthalmic emulsion Use 1 Drop in both eyes twice daily. CPAP/BIPAP/OTHER New set: Settings 4 - 8 cm H2O, suitable mask per pt preference (nasal or pillow opt), chin strap, head gear, humidity, tubing, lifetime supplies. G47.33 QUINTON semaglutide, weight loss, (WEGOVY) 2.4 mg/0.75 mL pen injector Inject 0.75 mL subcutaneously one time a week. aspirin 81 mg chewable tablet Take 1 tablet by mouth once daily. (Patient not taking: Reported on 03/20/2023) Current Facility-Administered Medications Medication Dose Route Frequency perflutren lipid microspheres 1.3 mL in NaCl (PF) 0.9% 10 mL injection (DEFINITY) INTRAVENOUS DIRECTED PRN sodium chloride 0.9 % (flush) 10 mL (BD POSIFLUSH) 10 mL INTRAVENOUS DIRECTED PRN REVIEW OF SYSTEMS: Denies nausea, vomiting, dumping syndrome, reactive hypoglycemia, gustatory rhinorrhea, Denies abdominal pain, constipation, diarrhea, melena, hematochezia, and Denies paresthesias, gait abnormality, fatigue, weakness, lower extremity edema OBESITY MEDICINE COMORBIDITIES: Obstructive Sleep Apnea Sleep Apnea with use of CPAP, Bi-PAP, or similar technology PHYSICAL EXAM: Deferred, no abdominal issues Assessment A/P: Post-OP course complicated by dysuria as detailed above. Patient Active Problem List Clinical summary halfway (current) use of 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 S/P gastric bypass Obesity, Class II, BMI 35-39.9 History of atrial fibrillation QUINTON (obstructive sleep apnea) Metabolic syndrome Pre-diabetes Vitamin D deficiency, unspecified Patient under care of multiple providers Paroxysmal atrial fibrillation (HCC) Class 3 severe obesity due to excess calories without serious comorbidity with body mass index (BMI) of 45.0 to 49.9 in adult (HCC) Dilated cardiomyopathy (HCC) Left bundle branch block Summary Acute on chronic diastolic (congestive) heart failure (HCC) Pre-op testing Discharge planning issues ICD (implantable cardioverter-defibrillator) in place Thyroid nodule, cold Eijns-Iswfmyydu-Qzzak (WPW) syndrome Body mass index 40.0-44.9, adult (HCC) Atrial fibrillation (HCC) HOCM (hypertrophic obstructive cardiomyopathy) ([facility]) S/P ablation of accessory bypass tract Syncope Ventricular tachyarrhythmia ([facility]) Palpitation Vaginal high risk HPV DNA test positive Impaired glucose tolerance Resolved Hospital Problems No resolved problems to display. DISPOSITION: Return 3 month to Post-op follow up/ individual office visit EDUCATION: Encouraged to continue with healthy lifestyle changes and incorporate cardiovascular and resistance training, Discussed weight loss expectations after bariatric and metabolic surgery, Advised PT to avoid NSAIDs, smoking tobacco given increased risk of marginal ulcers, or Discussed importance of protein intake as per the RDN note REFERRALS: Work, activity, exercise - return to work without restrictions on April 06, 2023. We are happy to fill out what other paperwork is needed for her workplace. - Okay to start with weight lifting. I typically recommend that people start about 50% their prior level and then build back up as their re-recruit muscles. Dysuria and incomplete emptying -Unclear if her symptoms and testing results truly do represent urinary tract infection, but she does note some improvement with the antibiotics -Continue follow-up with PCP regarding this end of this week -I recommend she keep her appointment with the urologist as well. Obstructive sleep apnea -Typically expect sleep apnea to improve over time with weight loss. -Continue to use CPAP device for now Chronic long-term use of anticoagulation for prophylaxis due to atrial fibrillation - Continue to check regular INRs until on Phase 5 diet, the Coumadin dosing levels may change as the diet continues to change as it is advanced. - may be moving all coumadin care to [place] Regular appointment at 3 month time point LABS: Today: none At 6 months: Standard panel Esperanza Mercer MD 03/24/2023 documented in this encounter [facility] 03-21-2023 Miscellaneous Notes Patient given results and verbalized understanding of instructions given. Brandy Rivera Please inform patient that urine culture did not show any growth of bacteria requiring treatment. If symptoms improving complete antibiotic Advise due to blood in the urine that she follow up with PCP for recheck of urine in 1-2 weeks. Klarissa Olivia APRN.CNP documented in this encounter [facility] 03-20-2023 History of Present illness Narrative This note was created using TerraSkyter. Subjective Chavo Tom is a 42 year old female. 42 year old female with PMH afib (currently on Coumadin), WPW, ICD, CHF, gastric bypass presents for possible UTI. Acute onset 3 weeks ago +urinary frequency +urgency Endorses that she feels she has incomplete emptying. +lower back pain. Denies abdominal pain. Denies N/V/D Denies skin rash or lesions. She had recent surgery. States she made mention of difficulty with urinating while in hospital, She states they did not test her urine. Of note she had gastric bypass through Dr. Mercer @ [facility]. February 18. Endorses that she reached out to him, he messaged her that he feels that her symptoms are not related to her recent surgery. He referred her to urology (denies that she has been seen in past). Her urology appt is May. She was instructed to come here for further testing by urology. The history is provided by the patient. No foreign language instructor was used. UTI This is a new problem. The current episode started more than 1 week ago. The problem occurs every urination. The problem has not changed since onset.The pain is at a severity of 3/10. The pain is mild. There has been no fever. She is Not sexually active. There is No history of pyelonephritis. Associated symptoms include frequency, hesitancy and urgency. Pertinent negatives include no chills, no sweats, no nausea, no vomiting, no discharge, no hematuria, no possible and no flank pain. She has tried nothing for the symptoms. Her past medical history is significant for catheterization. Her past medical history does not include kidney stones, single kidney, urological procedure, recurrent UTIs or urinary stasis. PAST MEDICAL HISTORY Diagnosis Date Atrial fibrillation (HCC) CHADS score 0 Cardiomyopathy ([facility]) 02/24/14 Family history of hypertrophic cardiomyopathy 01/18/2014 Impaired glucose tolerance 01/21/2011 Left bundle branch block Obesity S/P gastric bypass 02/18/2023 Sleep apnea Ventricular tachyarrhythmia (HCC) 02/2014 Oaekk-Vkzytdlmh-Bpril (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 Cardioverted with 150j under sedation DEFIBRILLATOR SURGERY 02/24/2014 ICD, redo WPW & atrial fib ablation EPS: DEFIB. SURGERY 05/16/2021 Exchange of a SamEnrico SQ-RX 1010 pulse generator with a BOSTON LAP GASTRIC BYPASS/JENNY-EN-Y 02/18/2023 150cmantecolic jenny, 70cm bp limb PAST SURGICAL HISTORY OF 07/06/2014 WPW ablation PAST SURGICAL HISTORY OF 11/21/2019 MVr, myectomy, PVI, LAAC TYMPANOSTOMY LOCAL/TOPICAL ANESTHESIA Right ALLERGIES Metformin MEDICATIONS warfarin (COUMADIN) 5 mg tablet^Take 1 tablet by mouth once daily. Or as directed by anticoagulation clinic.^Disp: 30 tablet^Rfl: 1 acetaminophen (TYLENOL) 500 mg tablet^Take 2 tablets by mouth every 6 hours.^Disp: 50 tablet^Rfl: 0 oxyCODONE IR (ROXICODONE) 5 mg immediate release tablet^Take 1 tablet by mouth every 8 hours as needed.^Disp: 10 tablet^Rfl: [address] (PROTONIX) 40 mg tablet^Take 1 tablet by mouth once daily.^Disp: 30 tablet^Rfl: 2 cholecalciferol, vitamin D3, (VITAMIN D3 ORAL)^Take by mouth.^Disp: ^Rfl: tacrolimus (PROTOPIC) 0.03 % ointment^Apply to affected area twice daily.^Disp: 30 g^Rfl: 2 metoprolol succinate ER (TOPROL XL) 25 mg 24 hr tablet^Take 1.5 tablets by mouth twice daily with meals.^Disp: 90 tablet^Rfl: 6 sotalol (BETAPACE) 120 mg tablet^Take 1 tablet by mouth twice daily.^Disp: 180 tablet^Rfl: 1 doxycycline (VIBRA-TABS) 100 mg tablet^Take 100 mg by mouth twice daily.^Disp: ^Rfl: CPAP/BIPAP/OTHER^New set: Settings 4 - 8 cm H2O, suitable mask per pt preference (nasal or pillow opt), chin strap, head gear, humidity, tubing, lifetime supplies. G47.33 QUINTON ^Disp: 1 Each^Rfl: 11 semaglutide, weight loss, (WEGOVY) 2.4 mg/0.75 mL pen injector^Inject 0.75 mL subcutaneously one time a week.^Disp: 9 mL^Rfl: 3 cephALEXin (KEFLEX) 500 mg capsule^Take 1 capsule by mouth twice daily for 7 days.^Disp: 14 capsule^Rfl: 0 cycloSPORINE (RESTASIS) 0.05 % ophthalmic emulsion^Use 1 Drop in both eyes twice daily.^Disp: 180 Each^Rfl: 3 aspirin 81 mg chewable tablet^Take 1 tablet by mouth once daily.^Disp: 90 tablet^Rfl: 1 (Patient not taking: Reported on 03/20/2023) FAMILY HISTORY Problem Relation Age of Onset Lipids Father Diabetes Mother Hypertension Mother Thyroid Mother Coronary Artery Disease Mother CABG 2012 Diabetes Brother Heart Sister HOCM s/p ICD None Maternal Grandfather age 46-"suddenly" Heart Maternal Grandmother OR age 72 Alcohol/Drug Paternal Grandfather ETOH Diabetes Maternal Aunt Diabetes Maternal Uncle Colon Cancer No Family History Anesthesia Problems No Family History Social History Tobacco Use Smoking status: Never Smokeless tobacco: Never Vaping Use Vaping Use: Never used Substance Use Topics Alcohol use: No Drug use: No Review of Systems Constitutional: Negative for chills, fatigue and fever. Eyes: Negative for pain, discharge, redness and itching. Respiratory: Negative for apnea, cough, choking and chest tightness. Cardiovascular: Negative for chest pain, palpitations and leg swelling. Gastrointestinal: Negative for abdominal pain, nausea and vomiting. Genitourinary: Positive for dysuria, frequency, hesitancy and urgency. Negative for flank pain and hematuria. Musculoskeletal: Positive for back pain. Negative for arthralgias. Skin: Negative for color change, pallor, rash and wound. Allergic/Immunologic: Negative for environmental allergies, food allergies and immunocompromised state. Neurological: Negative for dizziness, facial asymmetry and headaches. Hematological: Negative for adenopathy. Does not bruise/bleed easily. Psychiatric/Behavioral: Negative for agitation and behavioral problems. Objective BP 122/70 Pulse 86 Temp 36.6 C (97.8 F) (Tympanic) Resp 16 Wt 104.8 kg (231 lb) LMP 01/06/2012 (Approximate) SpO2 98% BMI 35.12 kg/m Physical Exam Vitals and nursing note reviewed. Constitutional: General: She is not in acute distress. Appearance: Normal appearance. She is normal weight. She is not ill-appearing, toxic-appearing or diaphoretic. HENT: Head: Normocephalic and atraumatic. Right Ear: Ear canal and external ear normal. Left Ear: Ear canal and external ear normal. Nose: Nose normal. No congestion or rhinorrhea. Mouth/Throat: Mouth: Mucous membranes are moist. Pharynx: No oropharyngeal exudate or posterior oropharyngeal erythema. Eyes: General: Right eye: No discharge. Left eye: No discharge. Extraocular Movements: Extraocular movements intact. Conjunctiva/sclera: Conjunctivae normal. Pupils: Pupils are equal, round, and reactive to light. Cardiovascular: Rate and Rhythm: Normal rate and regular rhythm. Pulses: Normal pulses. Heart sounds: Normal heart sounds. No murmur heard. No friction rub. Pulmonary: Effort: Pulmonary effort is normal. No respiratory distress. Breath sounds: Normal breath sounds. No stridor. No wheezing, rhonchi or rales. Chest: Chest wall: No tenderness. Abdominal: General: Abdomen is flat. There is no distension. Palpations: Abdomen is soft. There is no mass. Tenderness: There is no abdominal tenderness. There is no right CVA tenderness, left CVA tenderness, guarding or rebound. Hernia: No hernia is present. Musculoskeletal: General: No swelling, tenderness, deformity or signs of injury. Normal range of motion. Cervical back: Normal range of motion and neck supple. No rigidity. Right lower leg: No edema. Left lower leg: No edema. Lymphadenopathy: Cervical: No cervical adenopathy. Skin: General: Skin is warm and dry. Capillary Refill: Capillary refill takes less than 2 seconds. Coloration: Skin is not jaundiced or pale. Findings: No bruising, erythema, lesion or rash. Comments: X 2 LAPAROSCOPIC wound without drainage or abscess. Neurological: General: No focal deficit present. Mental Status: She is alert and oriented to person, place, and time. Cranial Nerves: No cranial nerve deficit. Sensory: No sensory deficit. Motor: No weakness. Coordination: Coordination normal. Gait: Gait normal. Psychiatric: Mood and Affect: Mood normal. Behavior: Behavior normal. Thought Content: Thought content normal. Judgment: Judgment normal. Assessment and Plan ASSESSMENT/PLAN: 1. Dysuria - ICD9: 788.1, ICD10: R30.0 Complicated X 3 weeks Recently underwent gastric bypass 02/18/23 States she has been experiencing UTI sx since then. - UA positive for yuliana esterase, proteinuria, and ketones and bilirubin - Send urine for culture CBC and CMP STAT - Begin treatment with KEFLEX for 7 days - Patient education for prevention given - UA DIP, URINE (POC) - URINE CULTURE - CBC + DIFF - COMP METABOLIC PANEL Discussed red flags and reasons to seek ED. Elizabeth Mercado APRN.CNP documented in this encounter [facility] 03-16-2023 History of Present illness Narrative [facility] Anticoagulation Episode Summary Anticoagulation Care Providers Provider Role Specialty Phone number Jayjay Ortiz MD Referring Cardiology [phone] Chavo Tom is a 42 year old year old female patient being evaluated today for a New Patient Education visit. Patient is currently on the following anticoagulant(s) Warfarin. Labs PT INR (no units) Date Value 11/17/2019 1.0 INR (no units) Date Value 03/13/2023 4.1 Hemoglobin (g/dL) Date Value 02/20/2023 13.0 05/14/2021 14.4 Hematocrit (%) Date Value 02/20/2023 37.9 05/14/2021 44.4 Platelet Count (k/uL) Date Value 02/20/2023 222 05/14/2021 307 Creatinine (mg/dL) Date Value 02/20/2023 0.83 02/19/2023 0.84 01/29/2023 0.82 05/14/2021 0.83 03/19/2021 0.82 01/07/2021 0.65 Bilirubin, Total (mg/dL) Date Value 01/29/2023 0.4 08/27/2020 0.4 ALT (U/L) Date Value 01/29/2023 23 05/14/2021 33 AST (U/L) Date Value 01/29/2023 23 05/14/2021 26 Estimated Creatinine Clearance: 112.9 mL/min (based on SCr of 0.83 mg/dL). ALLERGIES Allergen Reactions Metformin Diarrhea Indication for Warfarin: halfway (current) use of 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 Paroxysmal atrial fibrillation (hcc) Anticoagulation Episode Summary Current INR goal: 2.0-3.0 Assessment: INR result of 1.8 is SUBtherapeutic due to: Patient in titration phase INITIAL EDUCATION FORM Precautions to therapy Precautions evaluated: none present Patient watched video You & Your Health: Understanding Warfarin (Coumadin)" Yes Patient gives verbal permission to leave detailed messages with cell phone voice mail Initial patient education included: 1. Reason for taking warfarin 2. How warfarin works 3. What the INR test is and frequency of testing 4. When to take warfarin and what to do if a dose is missed 5. Identifying tablet(s) and to notify the ACC if there is a change in tablet color, shape, or markings 6. Drug interactions (Rx, OTC, herbal) and importance of notifying the ACC with any changes 7. Potential duration of therapy 8. Signs/symptoms of bleeding and what to do if they occur 9. Precautionary measures to decrease trauma/bleeding 10. Signs/symptoms of thrombosis and what to do if they occur 11. Need to limit or avoid EtOH consumption 12. Dietary considerations 13. Carrying identification 14. Importance of notifying healthcare provider and [facility] when hospitalizations occur and when another healthcare provider has asked them to stop/hold warfarin before any procedure 15. Importance of notifying all healthcare providers they are taking warfarin 16. Use of control measures if applicable 17. Emergency contact numbers given 18. Written literature and/or items provided Warfarin booklet Understanding your Warfarin Therapy" and Vitamin K Chart Plan: Current Warfarin Dosing As of 03/16/2023 Full warfarin instructions: 03/16: 5 mg; 03/17: 2.5 mg; 03/18: 5 mg; 15: 2.5 mg Advised patient to alternate 5mg/2.5mg Next lab INR check scheduled on 03/20/2023 Patient verbalizes understanding of the plan. Patient denies need for refills. Staff Physician onsite: Dr. Alex Del Cid RPh Clinical Pharmacist, Pharmacy Anticoagulation Clinic Pharmacy Anticoagulation Clinic Pager: [phone]. documented in this encounter [facility] 03-12-[address] Ortiz, Thank you for referring Chavo Tom to the Anticoagulation Clinic for follow up. A pharmacist will see your patient for fingerstick INR testing and counseling. Please note: if at any time your patient does not agree to follow our recommendations for follow up care for managing their INR via POCT, home INR meter, or lab, they may be discharged back to your service for follow up. By this referral, we will be following your patient under the consult agreement policy between the Department of Pharmacy and member of the [facility]. Under this policy, you agree to maintain a "clinical relationship" with the patient as defined by Medicare as seeing the patient at least once a year in the outpatient setting. Our pharmacists will monitor your patient's anticoagulation therapy, adjust doses, order labs and prescriptions for warfarin/enoxaparin/Vitamin K as appropriate, and bill for our visits and lab tests listing you as the responsible referring physician. If for any reason you do not wish to continue working under this collaborative practice agreement or if the patient no longer continues in your care, please contact us to discontinue this service. Thank you for your referral, Anticoagulation Management Services New Referral Contact: Pharmacist Anticoagulation Clinic The patient was called to discuss recent referral to the Anticoagulation Clinic. Mode of contact: home phone and cell phone Referral date: 03/10/23 Referring physician: Jayjay Ortiz MD - she said she may like to switch to having her PCP in [place] manage warfarin. Indication: paroxysmal afib Goal INR: 2-3 The expected duration of therapy is Indefinite Preferred location for visits: [facility] Warfarin start date: 03/10 Patient was previously instructed to take warfarin: 5mg tabs - was previously on eliquis but stopped due to post-bariatric surgery. Parenteral anticoagulant: Yes, lovenox 100mg every 12 hrs (include dose and frequency) and injectable supply remainin but has refills syringes PT INR (no units) Date Value 11/17/2019 1.0 Hemoglobin (g/dL) Date Value 02/20/2023 13.0 05/14/2021 14.4 A/P: Spoke to patient. The patient: DOES agree to INR testing and consult agreement Patient scheduled for next INR Lab INR on this date: 03/13 Patient scheduled for POCT/New Ed at [facility] on this date: 03/17 - at least now then possibly the lab in [place] after. Patient accepts the warfarin education video. Mode of learning: ChemistDirecthart video link and POCT Next Action for Anticoag Management: Lab 03/13 = tomorrow. Jennifer Zazueta [facility] PAC received new referral with Lovenox bridging. Next Action for Anti coag Management: [facility] 03/12 Bozena Calloway RN Pharmacy Anticoagulation Clinic Spoke to Basilia from Dr. Ortiz's office in regards to Coumadin Clinic referral. Patient would prefer [place] location. Provided PAC order #[id number] for referral to be placed. Bernardo Zamora, Chief Data Officer (spray gun striper) Pharmacy Anticoagulation Clinic documented in this encounter [facility] 03-10-2023 Miscellaneous Notes Scheduled appointment for 03/17 at 1pm. documented in this encounter [facility] 03-07-2023 Discharge summary Note Date/Time March 07, 2023 9:11p m [facility] Medical Records Department [address] [place] [address] Emergency Department Summary 03/07/23 MR#: [id number] Acct: [id number] Name: CHAVO TOM Rep #:[id number] : [id number] 42 From: Luis Vaughn MD PCP: HALEY Rios Status:REG E R Location: ED HPI History of Present Illness Chief Complaint: Dizziness Detail of Chief Complaint: Palpitations Informant: patient and family Onset/Context/Timing Onset: Today Activity at onset: gradual Timing: Intermittent Current Severity: Gone Maximum Severity: Mild Worsened By: Nothing Relieved By: Nothing Associated Symptoms: Positive for Palpitations; Negative for Nausea, Vomiting, Diaphoresis, Dyspnea, Cough, Fever, Lightheadedness or Acid Reflux Narrative Narrative: 42-year-old female history of hokum, WPW, A-fib [facility] and currently on Lovenox anticoagulation. States that today that she has had some palpitations since around 830 this tonight. States she is drinking plenty of fluids just does not feel like she is urinating as much as she should. She denies any melena. No hemoptysis. No chest pain. No significant shortness of breath. No vomiting diarrhea nor fever. No dysuria. Said she has been feeling and doing well since the surgery. She has lost approximately 30 pounds in the last 2 weeks after the surgery. Prior Similar Symptoms: No Recent Illness/Hospitalization: Yes PE Risk Factors: Positive for Recent Travel/Surgery and Recent Immobilization; Negative for Prior DVT or PE, Cancer or OCP + Smoking + >/=35 TAD Risk Factors: Negative for Marfan's Syndrome [facility] Medical History (Updated 03/08/23 @ 00:[address] Luis Vaughn MD) Afib Atrial flutter Borderline diabetes Fatigue Heart disease Presence of combination internal cardiac defibrillator (ICD) and pacemaker Shortness of breath Home Medications metoprolol tartrate 25 mg tablet 37.5 mg PO BID 02/21/14 [History Last Taken 12/16/19] apixaban 5 mg tablet 5 mg PO BID #60 tabs 11/30/19 [Rx Last Taken 12/16/19] aspirin 81 mg tablet,delayed release 81 mg PO DAILY 12/16/19 [History Last Taken 12/16/19] sotalol 120 mg tablet 120 mg PO BID 06/12/21 [History Last Taken Unknown] semaglutide (weight loss) 2.4 mg/0.75 mL subcutaneous pen injector (Wegovy) 2.4 mg subcut MO 06/26/22 [History Last Taken Unknown] Allergy/AdvReac Type Severity Reaction Status Date / Time metformin AdvReac Nausea/Vom/ Verified 03/07/23 20:51 Diarrhea Surgical History (Updated 03/07/23 @ 21:17 by Robel Tijerina) H/O cardiac radiofrequency ablation History of heart surgery Hx of tympanostomy tubes S/P gastric bypass Social History Smoking Status: Never smoker alcohol intake: never ROS ROS ED ROS Narrative Palpitations. No recent illness. Review of Systems ROS Unobtainable: Denies due to encephalopathy Constitutional Constitutional ED: Denies chills or fever(s) Eyes Eyes: Denies none ENT ENT ED: Denies ear pain Cardiovascular Cardiovascular: Reports as per HPI and palpitations; Denies chest pain or racingheartbeat Respiratory/Chest Respiratory/Chest: Denies cough or dyspnea Gastrointestinal Gastrointestinal: Denies abdominal pain Genitourinary Genitourinary ED: Denies dysuria or hematuria Musculoskeletal Musculoskeletal: Denies arthralgias or back pain Integumentary Denies abscess or Abrasions Neurologic Neurologic: Denies headache(s) Psychiatric Psychiatric: Denies anxiety Endocrine Endocrinology: Denies cold intolerance Hematologic/Lymphatic Hematologic/Lymphatic: Denies easy bleeding Allergic/Immunologic Allergic/Immunologic ED: Denies mouth swelling or tongue swelling EXAM Physical Exam Narrative Exam Narrative: Well-appearing 42-year-old female. Vital signs stable afebrile. Sister presentat bedside. Pulse ox 100% on room air no signs hypoxia. Patient is in no distress. Looks well and is resting comfortably. H EENT exam unremarkable. Moist compartments. Neck nontender no JVD. No lymphadenopathy. Lungs clear toauscultation bilaterally. Heart regular rate and rhythm rate about 85 no murmur. Chest wall nontender. Abdomen soft, nontender, nondistended normal bowel sounds no peritoneal signs. Well-healed laparoscopic incisions for recentbypass surgery. Moves all 4 extremities. Calves nontender without edema or cords. Radial pulses equal symmetrical. Back nontender. Neurologically she isawake alert with no focal motor deficits. Very benign exam. Const Vital Signs: 03/07/23 20:50 03/07/23 21:15 03/07/23 21:17 Temperature 97.1 F L Temperature Source Temporal Pulse Rate 88 Respiratory Rate 18 Respiratory Effort Normal Blood Pressure 121/85 H Blood Pressure Mean 97 Pulse Ox 100 Oxygen Delivery Method Room Air Room Air 03/07/23 23:20 03/08/23 00:05 03/08/23 00:37 Temperature Temperature Source Pulse Rate 70 67 61 Respiratory Rate 16 18 18 Respiratory Effort Blood Pressure 95/61 97/72 98/66 Blood Pressure Mean 72 80 76 Pulse Ox 98 98 100 Oxygen Delivery Method Room Air Room Air Room Air 03/08/23 01:00 Temperature Temperature Source Pulse Rate 62 Respiratory Rate Respiratory Effort Blood Pressure 106/78 Blood Pressure Mean 87 Pulse Ox Oxygen Delivery Method Positive well nourished and well developed; Negative for cachectic, contracturesor unkempt General Appearance ED: well developed and NAD; Negative for unkempt, cachectic, contractures or pallor Nutritional Appearance: Negative for cachectic HEENT Reports moist mucous membranes; Denies dry mucous membranes normocephalic and atraumatic; Negative for trauma or tenderness Mouth ED: No dry mucous membranes Mouth: No dry mucous membranes Eyes PERRL and EOMs intact bilaterally General Eye ED: Negative for pale conjunctiva or scleral icterus Neck no lymphadenopathy, supple and no JVD General: Negative for tenderness Chest Wall inspection of chest normal and palpation of chest normal Chest: Negative for tenderness Resp normal respiratory effort and clear to auscultation bilaterally Effort and Inspection: Negative for respiratory distress Auscultation: Negative for rales, rhonchi or wheezes Cardio regular rhythm, S1 normal heart sound, S2 normal heart sound and no murmurs Rate: Negative for bradycardia or tachycardic Rhythm: Negative for abnormal rhythm Peripheral Pulses: pulses 2+ throughout GI normal to inspection, nondistended, normoactive bowel sounds, soft to palpation,non-tender, non-distended and no masses GI Narrative: Well-healed gastric bypass, laparoscopic incisions. Dry and clean. Palpation: Negative for mass Back/Spine no CVA tenderness and no thoracic nor lumbar tenderness General Back: Negative for CVA tenderness Cervical Spine: Negative for cervical spine tenderness Extremity normal to inspection General Extremety ED: Negative for edema, pulses abnormal or tenderness General Extremity: Negative for edema or pulses abnormal Neuro oriented x3 and CN's II-XII intact bilaterally Sensorium / Orientation: awake, alert, oriented to person, oriented to place andoriented to time; Negative for confused, lethargic or stuporous Motor Exam: strength 5/5 throughout Psych Appearance: Negative for unkempt Attitude: No agitated Mood & Affect: Negative for depressed, anxious or tearful Skin no rashes or lesions noted and no wounds General Skin Exam: Negative for jaundice or pallor Rashes: No rashes noted Trauma: Negative for abrasion or laceration MDM MDM MDM Narrative Medical decision making narrative: 42-year-old female status post gastric bypass 2 weeks ago. Palpitations. Very benign exam. She is on Lovenox anticoagulation. She has no chest pain. Currently has no shortness of breath. She will undergo cardiac work-up. She has no complaints of any infection. She has no dysuria or fever. No significant cough. Repeat exam patient is resting comfortably clinically looks well at midnight. Her blood pressure is running around 90 systolic. She will be given a liter of fluid and reassess. She and I and her sister went over her labs and really no specific findings on her chest x-ray, EKG and lab work. She may be mildly dehydrated. Patient received a liter normal saline her current blood pressure is 106/78. She normally runs between 95 systolic to about 120. She is feeling well. She is looks well on exam. She comfortable being discharged home. She is on metoprolol I told her to hold it if her blood pressure is running at or below 110. Follow-up with her cargo checker to see if they need to adjust her blood pressuremedications. History & Record Review Discussion w/independent historian: Patient Additional record(s) reviewed:: Prior inpatient record, Prior outpatient record,Prior ED visit and Prior labs Lab Data Attestation: I reviewed the patient's lab results. Lab results narrative: CBC normal. White count 6.7. H&H 12.3 and 36. Platelets 314. Chemistries show potassium 3.4 gap of 7 BUN and creatinine of 21 0.9. Glucose 100. Troponin 12. Chest x-ray chronic changes no acute process. Labs: Laboratory Results - last 24 hr 03/07/23 03/07/23 21:15 21:15 WBC 6.7 RBC 4.21 Hgb 12.3 Hct 36.6 L MCV 86.9 MCH 29.2 MCHC 33.6 RDW Std Deviation 44.8 H RDW Coeff of Ramesh 14.3 Plt Count 314 MPV 12.2 H Immature Gran % (Auto) 0.300 Neut % (Auto) 53.2 Lymph % (Auto) 32.6 [place] % (Auto) 8.6 Eos % (Auto) 4.1 Baso % (Auto) 1.2 H Absolute Neuts (auto) 3.5 Absolute Lymphs (auto) 2.17 Nucleated RBC % 0 Sodium 141 Potassium 3.4 L Chloride 111 H Carbon Dioxide 23.0 Anion Gap 7 BUN 21 H Creatinine 0.94 Estim Creat Clear Calc 78.65 Est GFR (MDRD) Af Amer 83 Est GFR (MDRD) Non-Af 69 BUN/Creatinine Ratio 22.2 H Glucose 100 Calcium 9.2 Troponin I High Sens 12 Radiography Chest X-Ray - ED: 1 View, Read by ED Physician, Read by Radiologist, Normal, Heart, Lungs, Mediastinum, Bony Structures, No Acute Disease and Chronic Changes Diagnostic Testing: Clinical Impression(s) from Imaging Studies Chest X-Ray 03/07/23 21:30 IMPRESSION: No evidence of acute cardiopulmonary disease. Electronically Signed: Tony Maxwell DO at 22:21 EDT , Rhythm Strip Rhythm Strip: Sinus Rhythm Rate: 73 Ectopy: None EKG Initial EKG: Attestation: I personally reviewed and interpreted this EKG as follows: Interpretation: Sinus Rhythm Comments: Normal sinus rhythm rate of 73 no acute signs of OR or ischemia. Left bundle branch block. History of the same. Prior EKG tracings: available for review Prior: Unchanged Discharge Plan Triage Chief Complaint: Dizziness ED Provider: Luis Vaughn Dx/Rx/DC Orders Clinical Impression: Acute dehydration, Acute hypotension, Chronic anticoagulation, History of atrial fibrillation Instructions: ED Dehydration (Adult) Prescriptions: No Action metoprolol tartrate 25 MG tablet 37.5 mg PO BID apixaban 5 MG tablet 5 mg PO BID Qty: 60 0RF aspirin 81 MG tablet,delayed release (DR/EC) 81 mg PO DAILY sotalol 120 mg Tablet 120 mg PO BID Wegovy 2.4 mg/0.75 mL pen injector 2.4 mg SUBCUT MO Primary Care Provider: Kylah Palma Referrals: Kylah Palma PA [Primary Care Provider] - As soon as possible Activity Restrictions/Additional Instructions: Plenty of fluids and rest. Do not take your blood pressure medication the metoprolol if your blood pressure is not running higher than 110. Follow-up with your doctor to ensure you are improving. Return if you are feeling worse. Disposition Disposition: Home, Self Care What to do if you have Problems For any increased pain, shortness of breath, bleeding, nausea or vomiting, chestpain, or any unexpected problems, contact your Primary Care Provider. Call [employer] [facility] ([phone]) or report to the closest Emergency Room. Call 911 if necessary. 03/08/23 0102 <Electronically signed by Luis Vaughn MD> Cosigner Signature (if applicable): CC: HALEY Palma ~ Signed [facility] Work Phone: [phone]) 972-436406-01-2023 History of Present illness Narrative* Esperanza Mercer MD - 03/05/2023 2:00 PM EDT Clinic Date: 03/05/2023 I have communicated my name and active licensure. The patient's identity and physical location wereverified at the time of this visit. Either the patient or their legal area representative has been informed of the risks and benefits of -- and alternatives to -- treatment through a remote evaluation andconsents to proceed with the evaluation remotely. Chavo Tom, 42 year old presents for her initial postop visit. Index Surgery Date of Surgery: 02/08/2023 Surgeon Attending: Ruslan Surgical Procedure: Lap RYGB Pre-surgical weight: 262 lb Other Bariatric Surgeries None Time Since Surgery: 2 weeks Extra Procedures: none COMPLICATIONS DURING ADMISSION: Operative Complications: No Complications Prior to Discharge: No COMPLICATIONS SINCE DISCHARGE: NONE Estimated body mass index is 35.73 kg/m as calculated from the following: Height as of 03/04/23: 172.7 cm (5' 8"). Weight as of 03/04/23: 106.6 kg (235 lb). Emmalena weight: 74.6 kg (164 lb 7 oz) Excess weight: 98 lbs % of excess body weight lost: 0 kg (0 lb) HISTORY: Fever/Chills, Abdominal Pain: Denies Back Pain: Denies Increased Heart Rate: Denies Bloating / Hiccups: Denies Shortness of Breath: Denies Cough / Wheezing: Denies Calf/Thigh Pain or Swelling: Denies Decreased Urine Output: Denies Nausea/Vomiting: Denies Diarrhea: Denies Bowel Function: once every 2-3 days Other: Anticoagulation currently Lovenox teaching plan 100 mg bid planning transition to coumadin Pain: Patient was discharged with a total of 10 tablets. She reports using 5 tablets. She is not currently taking acetaminophen Concerns regarding incisions or healing: no Current Diet: Phase II (Full Liquids) Daily approximate Fluid intake: 75 oz fluid, protein improving Present Activity level: Household activities Have you attended any Support Group? Not known Current Medications: Current Outpatient Medications Medication Sig enoxaparin (LOVENOX) 100 mg/mL syrg Inject 1 mL subcutaneously every 12 hours for 14 days. acetaminophen (TYLENOL) 500 mg tablet Take 2 tablets by mouth every 6 hours. oxyCODONE IR (ROXICODONE) 5 mg immediate release tablet Take 1 tablet by mouth every 8 hours as needed. pantoprazole DR (PROTONIX) 40 mg tablet Take 1 tablet by mouth once daily. cholecalciferol, vitamin D3, (VITAMIN D3 ORAL) Take by mouth. tacrolimus (PROTOPIC) 0.03 % ointment Apply to affected area twice daily. metoprolol succinate ER (TOPROL XL) 25 mg 24 hr tablet Take 1.5 tablets by mouth twice daily with meals. sotalol (BETAPACE) 120 mg tablet Take 1 tablet by mouth twice daily. doxycycline (VIBRA-TABS) 100 mg tablet Take 100 mg by mouth twice daily. cycloSPORINE (RESTASIS) 0.05 % ophthalmic emulsion Use 1 Drop in both eyes twice daily. CPAP/BIPAP/OTHER New set: Settings 4 - 8 cm H2O, suitable mask per pt preference (nasal or pillow opt), chin strap, head gear, humidity, tubing, lifetime supplies. G47.33 QUINTON semaglutide, weight loss, (WEGOVY) 2.4 mg/0.75 mL pen injector Inject 0.75 mL subcutaneously one time a week. aspirin 81 mg chewable tablet Take 1 tablet by mouth once daily. Current Facility-Administered Medications Medication Dose Route Frequency perflutren lipid microspheres 1.3 mL in NaCl (PF) 0.9% 10 mL injection (DEFINITY) INTRAVENOUS DIRECTED PRN sodium chloride 0.9 % (flush) 10 mL (BD POSIFLUSH) 10 mL INTRAVENOUS DIRECTED PRN Discontinued Medications: There are no discontinued medications. Medications with dosage changes this visit: - reordered lovenox PHYSICAL EXAM: LMP 01/06/2012 (Approximate) Virtual visit, no exam IMPRESSION: Normal post-OP course PLAN: Patient Active Problem List Clinical summary Obesity, Class II, BMI 35-39.9 History of atrial fibrillation QUINTON (obstructive sleep apnea) Metabolic syndrome Pre-diabetes Vitamin D deficiency, unspecified Patient under care of multiple providers Paroxysmal atrial fibrillation (HCC) Class 3 severe obesity due to excess calories without serious comorbidity with body mass index (BMI) of 45.0 to 49.9 in adult (HCC) Dilated cardiomyopathy (HCC) Left bundle branch block Summary Acute on chronic diastolic (congestive) heart failure (HCC) Pre-op testing Discharge planning issues ICD (implantable cardioverter-defibrillator) in place Thyroid nodule, cold Vesni-Huusxfoba-Fsgnn (WPW) syndrome Body mass index 40.0-44.9, adult (HCC) Atrial fibrillation (HCC) HOCM (hypertrophic obstructive cardiomyopathy) (HCC) S/P ablation of accessory bypass tract Syncope Ventricular tachyarrhythmia (HCC) Palpitation Vaginal high risk HPV DNA test positive Impaired glucose tolerance Resolved Hospital Problems No resolved problems to display. Activity: OK to start exercise program in next 1-2 weeks. Return to Work: Planned to work at 4-6 weeks Diet: Advance diet per Handbook Counseling: Vitamins to be started Disposition: Return 1 month to EST/Standard office visit Does not need Actigall, patient already has gallstones, at 6-month visit we will address possible need for cholecystectomy She has had some difficulty scheduling Coumadin clinic for follow-up of her new start of Coumadin. In order to facilitate anticoagulation in the interim I have reordered 1 week of Lovenox with 1 additional refill, and hopefully within the next 2 weeks Coumadin clinic can be arranged. Can advance to Phase 3 diet Discussed potential impact of Jenny en Y gastric bypass on extended release medication due to reduced amount of stomach acid, as well as malabsorption. Recommended that patient monitor symptoms post-operatively and consult prescribing provider if she has significant changes, as that may indicate that the absorption/efficacy of metoprolol has been diminished due to RYGB. Labs on Return: No Esperanza Mercer MD 03/05/2023 [facility] Instructions* Patient Instructions* Karen Garrett RD - 03/04/2023 12:48 PM EDT 1. Start vitamins once you start Phase 3 diet: Bariatric Fusion Soft Chew Multi (x2), calcium citrate soft chews (x3), and iron soft chew (1) 2. Protein goal: 89 grams protein/day 3. Fluid goal: 64 ounces per day (no carbonation, caffeine, calories, alcohol) - separate foods andfluids by 20 minutes, small sips, no straw 4. Exercise goal: begin low intensity exercise until cleared by surgeon. 5. Practice mindful eating habits-take small portions, eat slowly, and chew thoroughly You have lost 6% total weight loss (average 6-9% at 1 month) The [facility] [place] [facility] has 2 virtual support group meetings: This is the [employer] link with meeting number that will be used for all of the THURSDAY virtual support groups this year, on the Thursday of each month 5:30-6:30PM Join from the meeting link [email or web address] Join by meeting number Meeting number (access code): [phone] Meeting password: [email or web address] The schedule with dates, times, topics, and facilitators can be found here: [email or web address] This is the [employer] link with meeting number that will be used for the Open Discussion ("Food for Thought") support group on the Thursday of each month 5:30-6:30PM Join from the meeting link [email or web address] Join by meeting number Meeting number (access code): [phone] Meeting password: [email or web address] Hope to see you there! Nutrition Monitoring & Evaluation: Advance diet to phase 3 by next visit Criteria: patient recall Need for Follow up: 1 month post op [facility] History of Present illness Narrative* Karen Garrett, RD - 03/04/2023 11:45 AM EDT This visit was performed virtually due to the COVID-19 epidemic as an effort to protect patients and minimize exposure. Consent from patient received to conduct visit virtually. This Team Access Model visit is a virtual GROUP encounter. It required patient-provider interaction for the medical decision making as documented below. I have communicated my name and active licensure. The patient s identity and physical location wereverified at the time of this visit. Either the patient or their legal area representative has been informed of the risks and benefits of -- and alternatives to -- treatment through a remote evaluation andconsents to proceed with the evaluation remotely. Patient reports weight (as measured by home scale) of 235 pounds. AMBULATORY PATIENT EDUCATION NOTE-Shared Nutrition Group TOPIC: LIFE STYLE CHANGES: Post-op weight loss surgery: Diet and Exercise READINESS TO LEARN COGNITIVE ABILITY: Alert and oriented MOTIVATION TO LEARN: Interested FAMILY SUPPORT: Unable to assess - Family not present INSTRUCTION PROVIDED TO: Patient PATIENT LEARNS BEST BY: Multiple Methods FACTORS AFFECTING LEARNING: None PHYSICAL LIMITATIONS AFFECTING LEARNING: None LEARNING RESPONSE DIAGNOSIS: Inadequate protein-energy intake, related to: s/p bariatric surgery, as evidenced by patient update, diet recall, and group discussion Overweight Obesity, related to; food/nutrition - related knowledge deficit, as evidenced by BMI above normative standard for age and gender Malnutrition Screening Significant unintentional weight loss? No Eating less than 75% of usual intake for more than 2 weeks? Yes , advancing diet per bariatric protocol Nutritional status: METHOD OF INSTRUCTION: Individual instruction Group class instruction PATIENT / FAMILY RESPONSE: Nutrition outcome statement: Expect attention to diet to assist with weight management and minimum 500 calories/2 liters of fluids per day. Patient participated in a 2 week post-op shared nutrition group. Post-op weight loss surgery (RYGB)(Dr. Mercer) . Weight loss: 44 lbs since initial assessment (279 lbs); 16% loss total body weight. Pre surgery weight: 250 lbs. Indicating a loss of 15 pounds (6%). Weight loss tracking as expected from surgery. Tolerating phase 2 diet without difficulty. Protein needs estimated at 89 grams protein per day (1.2 g/kg IBW kg). Current intake meeting ~ 45% protein needs. Fluid consumption adequate and includes water as primary beverage Patient not yet taking recommended vitamin/minerals, however plans for bariatric Fusion soft chew MVI, calcium citrate and iron. Exercise includes walking most days. Labs not available to evaluate. Reviewed nutrition principles of: 1. Start vitamins once you start Phase 3 diet: Bariatric Fusion Soft Chew Multi (x2), calcium citrate soft chews (x3), and iron soft chew (1) 2. Protein goal: 89 grams protein/day 3. Fluid goal: 64 ounces per day (no carbonation, caffeine, calories, alcohol) - separate foods andfluids by 20 minutes, small sips, no straw 4. Exercise goal: begin low intensity exercise until cleared by surgeon. 5. Practice mindful eating habits-take small portions, eat slowly, and chew thoroughly You have lost 6% total weight loss (average 6-9% at 1 month) The [facility] [place] [facility] has 2 virtual support group meetings: This is the [employer] link with meeting number that will be used for all of the THURSDAY virtual support groups this year, on the Thursday of each month 5:30-6:30PM Join from the meeting link [email or web address] Join by meeting number Meeting number (access code): [phone] Meeting password: [email or web address] The schedule with dates, times, topics, and facilitators can be found here: [email or web address] This is the [employer] link with meeting number that will be used for the Open Discussion ("Food for Thought") support group on the Thursday of each month 5:30-6:30PM Join from the meeting link [email or web address] Join by meeting number Meeting number (access code): [phone] Meeting password: [email or web address] Hope to see you there! Nutrition Monitoring & Evaluation: Advance diet to phase 3 by next visit Criteria: patient recall Need for Follow up: 1 month post op Appointment Start Time: 11:45 AM Appointment End Time: 12:35 PM Time Spent on Consult: 50 minutes - Group Karen Garrett RD documented [facility] History of Present illness Narrative* Amy Alvarado APRN.REGISTERED DIET TECHNICIAN - 02/04/2023 1:30 PM EDT Images from the original note were not included. [facility] Virtual Visit Follow up/ Established patient visit Date of last visit : 11/05/2022 IMPRESSION/PLAN: G47.33 QUINTON (obstructive sleep apnea) (primary encounter diagnosis) I48.0 Paroxysmal atrial fibrillation (HCC) I50.33 Acute on chronic diastolic (congestive) heart failure (HCC) Chavo Tom is a 42 year old female with Past medical history: Atrial fibrillation, Hypertrophic obstructive cardiomyopathy, Swcrk-Jibzpvarg-Bfqlk syndrome, Ventricular tachyarrhythmia, Implantable cardioverter-defibrillator in place, Congestive heart failure, and obesity. Her sleep-related history includes waking up with dry mouth or sore throat, multiple awakenings from sleep, and fatigue. She recently completed a PSG split night study and presents to review results. She is planning on the surgical option for weight loss and would need set up with CPAP to move forward with this goal. Reviewed sleep study results & discussed with patient: the physiology of OSAS, medical conditions associated with OSAS (DM, HTN, CAD, Depression, Stroke, Headache, OR) and treatment of beginning CPAP treatment. - Will start Auto CPAP 4-8 cmH2O with a Nasal pillows mask. - I will have a prescription sent to a [email or web address] ([employer] company - [employer] who will be calling you in the next 1-2 weeks or so. Please call them directly or us if you do not hear from them in this time frame. - You should be eligible for new supplies approximately every 3-6 months, depending on your insurance coverage. - If your mask doesn't fit well, call the [email or web address] company before 30 days are up to get a new mask without an additional charge. - Insurance requires regular usage and periodic office follow ups for PAP therapy, to continue to cover supplies. INSURANCE REQUIREMENTS: - Your insurance requires a [id number] follow up visit within a 31-90 day period after starting CPAP. - Your insurance requires compliance with CPAP, which is at least 4 hours per night for 70% of the time. This must be done over a 30 day period and must occur within the initial 31-90 day period after starting CPAP. - Your insurance also requires at least yearly follow ups to continue to pay for CPAP supplies. Follow up in 3 month(s). Amy Alvarado APRN.GENIE This visit was conducted as a virtual visit, with patient's permission, via zoom. It required patient-provider interaction for the medical decision making as documented below. Patient stated name and Patient location Home location in the [facility] I have communicated my name and active licensure. The patient's identity and physical location wereverified at the time of this visit. Either the patient or their legal area representative has been informed of the risks and benefits of -- and alternatives to -- treatment through a remote evaluation andconsents to proceed with the evaluation remotely. Interval history : 42 yo female here for follow up for UQINTON on CPAP with nightly use and benefit. She is scheduled for weight loss surgery later this month & compliancy standards made with CPAP for that date. SLEEP APNEA Sleep apnea type : QUINTON, Most Recent Apnea-Hypopnea Index (AHI): 10.3 Treatment : PAP therapy DME: [facility] P[facility] History: Current PAP settin-8 cm H2O. Difficulties with AutoPAP: None Reviewed objective PAP compliance data: 12/29/2022 to 01/27/2023 Compliance download: 70% >=4 hours Average use: 5 hours 32 minutes 90/95th percentile pressure: 6.8 Leaks 21.5, residual AHI 1.4 Mask issues: NA Uses chin strap: No Uses ramp function: Yes Uses humidity: Yes There is a perceived benefit by the patient SLEEP HYGIENE QUESTIONS: Bedtime : 7- 930 PM Wake up Time : 6 AM for normal work hours Time it takes to fall sleep : 15 minutes at most Number of times patient wakes up per night : once Estimated total sleep time ( in a 24 hour period of time) : 4-5 hour because she working more hours Naps : No SLEEP FUNCTIONAL OUTCOME MEASURES Reviewed PMH, PSH, SH: Reviewed SLEEP RELATED ROS REVIEW OF SYSTEMS SLEEP RELATED ROS GENERAL: See HPI RESPIRATORY: negative dyspnea CARDIOVASCULAR: negative chest pain SKIN: negative mask irritation PSYCH: negative depression and suicidal thoughts ENDOCRINE: negative thyroid problems All other systems reviewed and are negative. ALLERGIES Allergen Reactions Metformin Diarrhea CURRENT MEDICATIONS: cholecalciferol, vitamin D3, (VITAMIN D3 ORAL)^Take by mouth.^Disp: ^Rfl: tacrolimus (PROTOPIC) 0.03 % ointment^Apply to affected area twice daily.^Disp: 30 g^Rfl: 2 metoprolol succinate ER (TOPROL XL) 25 mg 24 hr tablet^Take 1.5 tablets by mouth twice daily with meals.^Disp: 90 tablet^Rfl: 6 sotalol (BETAPACE) 120 mg tablet^Take 1 tablet by mouth twice daily.^Disp: 180 tablet^Rfl: 1 doxycycline (VIBRA-TABS) 100 mg tablet^Take 100 mg by mouth twice daily.^Disp: ^Rfl: cycloSPORINE (RESTASIS) 0.05 % ophthalmic emulsion^Use 1 Drop in both eyes twice daily.^Disp: 180 Each^Rfl: 3 CPAP/BIPAP/OTHER^New set: Settings 4 - 8 cm H2O, suitable mask per pt preference (nasal or pillow opt), chin strap, head gear, humidity, tubing, lifetime supplies. G47.33 QUINTON ^Disp: 1 Each^Rfl: 11 apixaban (ELIQUIS) 5 mg tab(s)^Take 1 tablet by mouth twice daily.^Disp: 60 tablet^Rfl: 3 semaglutide, weight loss, (WEGOVY) 2.4 mg/0.75 mL pen injector^Inject 0.75 mL subcutaneously one time a week.^Disp: 9 mL^Rfl: 3 aspirin 81 mg chewable tablet^Take 1 tablet by mouth once daily.^Disp: 90 tablet^Rfl: 1 PHYSICAL EXAMINATION: General appearance: awake alert in NAD Mental status: normal Constitutional: Normal IMPRESSION: Quinton (obstructive sleep apnea) (primary encounter diagnosis) Paroxysmal atrial fibrillation (hcc) 42 yo female here for follow up for QUINTON on CPAP with nightly use and benefit. She is scheduled for weight loss surgery later this month & compliancy standards made with CPAP for that date. Contiue plan of care, and can retest for QUINTON when weight loss continues. PLAN: - Continue Auto CPAP at 4-8 cmH2O. - Remember to clean your mask and equipment regularly, as directed. - You should be eligible for new supplies approximately every 3-6 months, depending on your insurance coverage. Contact your Durable Medical Equipment (DME) company for new supplies as needed. - Follow up in 12 months Amy Alvarado APRN.GENIE I spent a total of 18 minutes on the date of the service which included preparing to see the patient, [id number] patient care, completing clinical documentation, obtaining and/or reviewing separately obtained history, counseling and educating the patient/family/caregiver, and communicating results to the patient/family/caregiver. [facility] Instructions* Patient Instructions* Edna Leigh RD - 02/02/2023 12:26 PM EDT Nutrition Intervention 02/02/23: Modify type and amount of intake at meals and snacks 1. Protein goal: 89 grams protein/day 2. Fluid goal: 64 oz per day water. (no calories, no caffeine, no carbonation, no alcohol) 3. Exercise goal: 150-250 minutes of cardio/aerobic exercise/week and include 10-20 minutes of strength/resistance exercise 2-3x/week 4. Practice these: * Eat in this order- protein first, vegetable and fruit second, whole grain carbohydrates last * Separate eating and drinking by 30 minutes * Chew your food 20-30x per bite * Meals should last 30 minutes 5. Start the full liquid diet (2) weeks prior to surgery using 4-5 protein shakes per day, continuea minimum of 64 oz water per day during this time. No solid food. May have sugar free popsicle and sugar free jello. 4 bottles of Slim Fast Advanced Nutrition shakes per day 5 packets of Hesperia Breakfast Essentials "Light Start" mixed with fat free or 1% milk 5 individual cartons of Atkins 15 g shakes per day 4 bottles of Boost Glucose Control shakes per day 6. During the 2 week liquid diet before surgery include a daily Super B-Complex vitamin with 75-100mg Thiamine 7. Advance your diet as tolerated after surgery; refer to page 49 in your guideline book. 8. Begin vitamins/minerals after starting solid foods: Daily multivitamin, iron 45-60 mg, calcium citrate w/ Vit D 4491-5792 mg, Vit B12 500 mcg sublingual pill or liquid, Vit D3 3000 international unit(s), B complex with 75-100 mg thiamin *It is ok to take a combination bariatric vitamin to limit pill volume. Here are a few options to consider: - Bariatric Fusion: 4 Complete Multivitamin chewables per day OR 1 Multivitamin capsule and 8407-9683 mg calcium citrate per day OR 2 Multivitamin soft chews per day + 3 calcium citrate soft chews + 1 iron soft chew per day [email or web address] - Procare Health: 1 Bariatric Multivitamin w/ iron (capsule or chewable) and 8408-0093 mg calcium citrate per day www.[email or web address] - Bariatric Choice: 1 Once Daily Bariatric Multivitamin capsule and 6422-6431 mg calcium citrate per day OR 4 All-in-One Bariatric Multivitamin chewables per day www.[email or web address] - Bariatric Advantage: 1 Ultra Solo multivitamin w/ iron (chewable or capsule) OR 2 chewable Advanced Multi EA w/ iron and 5718-4716 mg calcium citrate per day OR 2 Multi Chewy Bites and 2416-8495 mgcalcium citrate and 45-60 mg iron per day www.[email or web address] [email or web address].[email or web address] - Celebrate: 2 Multi-Complete (chewable or capsule) OR 1 CelebrateOne Multivitamin capsule and 2293-3348 mg calcium citrate per day OR 2 Multivitamin soft chews + 3 calcium citrate soft chews + 1 iron soft chew per day [email or web address] - Bariatric Pal: 1 Multivitamin One (chewable or capsule) and 9918-0656 mg calcium citrate per day OR 4 All-in-One Multivitamin chewables per day [email or web address] - Barilife: 1 Just One Bariatric Multivitamin w/ iron (chewable or capsule) and 4117-3301 mg calcium citrate per day www.[email or web address].[employer] - Barimelts: 2 Multivitamin w/ iron tablets and 0874-2771 mg calcium citrate per day [email or web address].[email or web address] Take multivitamin with iron 2 hours apart from calcium citrate, and take each dose of calcium 4 hours apart from each other Nutrition Monitoring & Evaluation: follow pre-op diet and fluid guidelines Criteria: weight check and patient update Need for Follow up: 2 weeks post op documented [facility] History of Present illness Narrative* Edna Leigh RD - 02/02/2023 12:21 PM EDT This visit was performed virtually due to the COVID-19 epidemic as an effort to protect patients and minimize exposure. Consent from patient received to conduct visit virtually. This Team Access Model visit is a virtual GROUP encounter. It required patient-provider interaction for the medical decision making as documented below. Patient reports weight (as measured by home scale) of 264 pounds. TOPIC: LIFE STYLE CHANGES: Pre-op weight loss surgery (RYGB, Dr. Mercer): Diet and Exercise PROGRESS: Nutrition Intervention (date of last encounter 10/22/22): Please call [phone], option 5. Leave a message for the navigation team when you are finishedwith all clearances (nutrition, psychology, medical, surgeon) 1.Starting ~3 weeks after surgery take 2 Bariatric Fusion chewable complete bariatric vitamin chews, twice daily. 2. Protein goal: 89 grams protein/day 3. Fluid goal: 64oz per day water. (no calories, no caffeine, no carbonation, no alcohol) 4. Exercise goal: 150-250 minutes combination cardio/strength training/week 5. Practice mindful eating habits-protein first, take small portions, eat slowly, chew thoroughly, and separate fluid from food 6. Start the full liquid diet (2) weeks prior to surgery using 5 Atkins protein shakes per day, continue a minimum of 64 oz water per day during this time. No solid food. May have sugar free popsicleand sugar free jello -During the 2 week liquid diet before surgery include a daily Super B-Complex vitamin 7. Advance diet as tolerated after surgery. Use the Your Guide to Surgery for guidance and meal plans Preop weight goal: 267 lbs CHANGES IN TREATMENT: Patient met goal(s): Yes Diagnosis: has not changed. Allergies: Metformin Medications: Current Outpatient Medications Medication Sig Dispense Refill cholecalciferol, vitamin D3, (VITAMIN D3 ORAL) Take by mouth. tacrolimus (PROTOPIC) 0.03 % ointment Apply to affected area twice daily. 30 g 2 metoprolol succinate ER (TOPROL XL) 25 mg 24 hr tablet Take 1.5 tablets by mouth twice daily with meals. 90 tablet 6 sotalol (BETAPACE) 120 mg tablet Take 1 tablet by mouth twice daily. 180 tablet 1 doxycycline (VIBRA-TABS) 100 mg tablet Take 100 mg by mouth twice daily. cycloSPORINE (RESTASIS) 0.05 % ophthalmic emulsion Use 1 Drop in both eyes twice daily. 180 Each 3 CPAP/BIPAP/OTHER New set: Settings 4 - 8 cm H2O, suitable mask per pt preference (nasal or pillow opt), chin strap, head gear, humidity, tubing, lifetime supplies. G47.33 QUINTON 1 Each 11 apixaban (ELIQUIS) 5 mg tab(s) Take 1 tablet by mouth twice daily. 60 tablet 3 semaglutide, weight loss, (WEGOVY) 2.4 mg/0.75 mL pen injector Inject 0.75 mL subcutaneously one time a week. 9 mL 3 aspirin 81 mg chewable tablet Take 1 tablet by mouth once daily. 90 tablet 1 Current Facility-Administered Medications Medication Dose Route Frequency Provider Last Rate Last Admin perflutren lipid microspheres 1.3 mL in NaCl (PF) 0.9% 10 mL injection (DEFINITY) INTRAVENOUS DIRECTED PRN Jayjay Ortiz MD sodium chloride 0.9 % (flush) 10 mL (BD POSIFLUSH) 10 mL INTRAVENOUS DIRECTED PRN Jayjay Ortiz MD (currently taking) ; Anthropometrics: Height: Last 1 Encounter Ht Readings: Date: Ht: 02/02/2023 172.7 cm (5' 8") Current weight: Last 1 Encounter Wt Readings: Date: Wt: 02/02/2023 119.7 kg (264 lb) Body mass index is 40.14 kg/m . Resting Metabolic Rate: 1908 Malnutrition Screening Significant unintentional weight loss? No Eating less than 75% of usual intake for more than 2 weeks? No Nutritional status: Educational materials provided: Nutritional Guidelines after Weight Loss Surgery READINESS TO LEARN Cognitive ability: Alert and oriented Motivation to learn: Interested Family support: Unable to assess - Family not present Instruction provided to: Patient and group Patient learns best by: Multiple Methods Factors affecting learning: None Physical limitations affecting learning: None Likelihood of Adherence: High Patient participated in preop bariatric surgery shared nutrition appointment. Patient participated actively in group. Patient will start the 2 week liquid diet 02/04, will be using Atkins protein drinks and purchased Vitamin B complex with appropriate thiamine. Fluids include >64 oz water/day. Physical activity includes combination of cardio and strength. Already purchased Bariatric Fusion chewables. Nutrition Diagnosis: Overweight/obesity, related to, food/nutrition - related knowledge deficit, asevidenced by BMI above normative standard for age and gender. Nutrition Intervention 02/02/23: Modify type and amount of intake at meals and snacks 1. Protein goal: 89 grams protein/day 2. Fluid goal: 64 oz per day water. (no calories, no caffeine, no carbonation, no alcohol) 3. Exercise goal: 150-250 minutes of cardio/aerobic exercise/week and include 10-20 minutes of strength/resistance exercise 2-3x/week 4. Practice these: * Eat in this order- protein first, vegetable and fruit second, whole grain carbohydrates last * Separate eating and drinking by 30 minutes * Chew your food 20-30x per bite * Meals should last 30 minutes 5. Start the full liquid diet (2) weeks prior to surgery using 4-5 protein shakes per day, continuea minimum of 64 oz water per day during this time. No solid food. May have sugar free popsicle and sugar free jello. 4 bottles of Slim Fast Advanced Nutrition shakes per day 5 packets of Hesperia Breakfast Essentials "Light Start" mixed with fat free or 1% milk 5 individual cartons of Atkins 15 g shakes per day 4 bottles of Boost Glucose Control shakes per day 6. During the 2 week liquid diet before surgery include a daily Super B-Complex vitamin with 75-100mg Thiamine 7. Advance your diet as tolerated after surgery; refer to page 49 in your guideline book. 8. Begin vitamins/minerals after starting solid foods: Daily multivitamin, iron 45-60 mg, calcium citrate w/ Vit D 2770-5994 mg, Vit B12 500 mcg sublingual pill or liquid, Vit D3 3000 international unit(s), B complex with 75-100 mg thiamin *It is ok to take a combination bariatric vitamin to limit pill volume. Here are a few options to consider: - Bariatric Fusion: 4 Complete Multivitamin chewables per day OR 1 Multivitamin capsule and 4930-0301 mg calcium citrate per day OR 2 Multivitamin soft chews per day + 3 calcium citrate soft chews + 1 iron soft chew per day www.[email or web address] - Procare Health: 1 Bariatric Multivitamin w/ iron (capsule or chewable) and 2041-7872 mg calcium citrate per day www.[email or web address] Pharma.[employer] - Bariatric Choice: 1 Once Daily Bariatric Multivitamin capsule and 2708-4217 mg calcium citrate per day OR 4 All-in-One Bariatric Multivitamin chewables per day [email or web address] - Bariatric Advantage: 1 Ultra Solo multivitamin w/ iron (chewable or capsule) OR 2 chewable Advanced Multi EA w/ iron and 9951-6588 mg calcium citrate per day OR 2 Multi Chewy Bites and 1243-3565 mgcalcium citrate and 45-60 mg iron per day www.[email or web address].[employer] - Celebrate: 2 Multi-Complete (chewable or capsule) OR 1 CelebrateOne Multivitamin capsule and 5402-1868 mg calcium citrate per day OR 2 Multivitamin soft chews + 3 calcium citrate soft chews + 1 iron soft chew per day [email or web address] - Bariatric Pal: 1 Multivitamin One (chewable or capsule) and 0289-6653 mg calcium citrate per day OR 4 All-in-One Multivitamin chewables per day [email or web address] - Barilife: 1 Just One Bariatric Multivitamin w/ iron (chewable or capsule) and 1634-6979 mg calcium citrate per day www.[email or web address] - Barimelts: 2 Multivitamin w/ iron tablets and 8745-8629 mg calcium citrate per day [email or web address] Take multivitamin with iron 2 hours apart from calcium citrate, and take each dose of calcium 4 hours apart from each other Nutrition Monitoring & Evaluation: follow pre-op diet and fluid guidelines Criteria: weight check and patient update Need for Follow up: 2 weeks post op Appointment Start Time: 9:45am Appointment End Time: 10:26am Time Spent on Consult: 41 minutes - Group Signed by: Edna Leigh RD, LD documented in [facility] History of Past illness Narrative* Problem Noted Date Diagnosed Date Resolved Date Obesity, Class II, BMI 35-39.9 01/29/2023 06/02/2023 Stress hyperglycemia 11/22/2019 020 Overview: History/Assessment: BG controlled Plan: Start SSI coverage Obesity, Class II, BMI 35-39.9 11/22/2019 11/22/2019 Postoperative pain 11/21/2019 0 Overview: History: No PMH of chronic pain. 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 Atelectasis 11/21/2019 11/22/2019 Overview: History: Postoperative Assessment: Grade I Airway on 1L NC Plan: OOB, wean o2, and pep Family history of hypertrophic cardiomyopathy 01/19/20 14 09/22/2018 Irregular menstrual cycle 11/05/2011 Placenta previa without hemo rrhage, antepartum 07/21/2008 10/16/2008 Supervision of normal first 03/11/2008 03/27/2009 documented as of this encounter (statuses as of 06/03/2023) [facility] of Past illness Narrative* Problem Noted Date Diagnosed Date Resolved Date Obesity, Class II, BMI 35-39.9 01/29/2023 06/02/2023 Stress hyperglycemia 11/22/2019 020 Overview: History/Assessment: BG controlled Plan: Start SSI coverage Obesity, Class II, BMI 35-39.9 11/22/2019 11/22/2019 Postoperative pain 11/21/2019 0 Overview: History: No PMH of chronic pain. 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 Atelectasis 11/21/2019 11/22/2019 Overview: History: Postoperative Assessment: Grade I Airway on 1L NC Plan: OOB, wean o2, and pep Family history of hypertrophic cardiomyopathy 01/19/20 14 09/22/2018 Irregular menstrual cycle 11/05/2011 Placenta previa without hemo rrhage, antepartum 07/21/2008 10/16/2008 Supervision of normal first 03/11/2008 03/27/2009 documented as of this encounter (statuses as of 06/05/2023) [facility] of Past illness Narrative* Problem Noted Date Diagnosed Date Resolved Date Obesity, Class II, BMI 35-39.9 01/29/2023 06/02/2023 Stress hyperglycemia 11/22/2019 020 Overview: History/Assessment: BG controlled Plan: Start SSI coverage Obesity, Class II, BMI 35-39.9 11/22/2019 11/22/2019 Postoperative pain 11/21/2019 0 Overview: History: No PMH of chronic pain. 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 Atelectasis 11/21/2019 11/22/2019 Overview: History: Postoperative Assessment: Grade I Airway on 1L NC Plan: OOB, wean o2, and pep Family history of hypertrophic cardiomyopathy 01/19/20 14 09/22/2018 Irregular menstrual cycle 11/05/2011 Placenta previa without hemo rrhage, antepartum 07/21/2008 10/16/2008 Supervision of normal first 03/11/2008 03/27/2009 documented as of this encounter (statuses as of 07/08/2023) [address]27-2023 History of Past illness Narrative* Problem Noted Date Diagnosed Date Resolved Date Obesity, Class II, BMI 35-39.9 01/29/2023 06/02/2023 Stress hyperglycemia 11/22/2019 020 Overview: History/Assessment: BG controlled Plan: Start SSI coverage Obesity, Class II, BMI 35-39.9 11/22/2019 11/22/2019 Postoperative pain 11/21/2019 0 Overview: History: No PMH of chronic pain. 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 Atelectasis 11/21/2019 11/22/2019 Overview: History: Postoperative Assessment: Grade I Airway on 1L NC Plan: OOB, wean o2, and pep Family history of hypertrophic cardiomyopathy 01/19/20 14 09/22/2018 Irregular menstrual cycle 11/05/2011 Placenta previa without hemo rrhage, antepartum 07/21/2008 10/16/2008 Supervision of normal first 03/11/2008 03/27/2009 documented as of this encounter (statuses as of 07/11/2023) [place] [id number] History of Past illness Narrative* Problem Noted Date Diagnosed Date Resolved Date Obesity, Class II, BMI 35-39.9 01/29/2023 06/02/2023 Stress hyperglycemia 11/22/2019 020 Overview: History/Assessment: BG controlled Plan: Start SSI coverage Obesity, Class II, BMI 35-39.9 11/22/2019 11/22/2019 Postoperative pain 11/21/2019 0 Overview: History: No PMH of chronic pain. 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 Atelectasis 11/21/2019 11/22/2019 Overview: History: Postoperative Assessment: Grade I Airway on 1L NC Plan: OOB, wean o2, and pep Family history of hypertrophic cardiomyopathy 01/19/20 14 09/22/2018 Irregular menstrual cycle 11/05/2011 Placenta previa without hemo rrhage, antepartum 07/21/2008 10/16/2008 Supervision of normal first 03/11/2008 03/27/2009 documented as of this encounter (statuses as of 07/15/2023) [facility] of Past illness Narrative* Problem Noted Date Diagnosed Date Resolved Date Obesity, Class II, BMI 35-39.9 01/29/2023 06/02/2023 Stress hyperglycemia 11/22/2019 020 Overview: History/Assessment: BG controlled Plan: Start SSI coverage Obesity, Class II, BMI 35-39.9 11/22/2019 11/22/2019 Postoperative pain 11/21/2019 0 Overview: History: No PMH of chronic pain. 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 Atelectasis 11/21/2019 11/22/2019 Overview: History: Postoperative Assessment: Grade I Airway on 1L NC Plan: OOB, wean o2, and pep Family history of hypertrophic cardiomyopathy 01/19/20 14 09/22/2018 Irregular menstrual cycle 11/05/2011 Placenta previa without hemo rrhage, antepartum 07/21/2008 10/16/2008 Supervision of normal first 03/11/2008 03/27/2009 documented as of this encounter (statuses as of 07/15/2023) [facility] of Past illness Narrative* Problem Noted Date Diagnosed Date Resolved Date Obesity, Class II, BMI 35-39.9 01/29/2023 06/02/2023 Stress hyperglycemia 11/22/2019 020 Overview: History/Assessment: BG controlled Plan: Start SSI coverage Obesity, Class II, BMI 35-39.9 11/22/2019 11/22/2019 Postoperative pain 11/21/2019 0 Overview: History: No PMH of chronic pain. 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 Atelectasis 11/21/2019 11/22/2019 Overview: History: Postoperative Assessment: Grade I Airway on 1L NC Plan: OOB, wean o2, and pep Family history of hypertrophic cardiomyopathy 01/19/20 14 09/22/2018 Irregular menstrual cycle 11/05/2011 Placenta previa without hemo rrhage, antepartum 07/21/2008 10/16/2008 Supervision of normal first 03/11/2008 03/27/2009 documented as of this encounter (statuses as of 07/16/2023) [address]27-2023 History of Past illness Narrative* Problem Noted Date Diagnosed Date Resolved Date Obesity, Class II, BMI 35-39.9 01/29/2023 06/02/2023 Stress hyperglycemia 11/22/2019 020 Overview: History/Assessment: BG controlled Plan: Start SSI coverage Obesity, Class II, BMI 35-39.9 11/22/2019 11/22/2019 Postoperative pain 11/21/2019 0 Overview: History: No PMH of chronic pain. 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 Atelectasis 11/21/2019 11/22/2019 Overview: History: Postoperative Assessment: Grade I Airway on 1L NC Plan: OOB, wean o2, and pep Family history of hypertrophic cardiomyopathy 01/19/20 14 09/22/2018 Irregular menstrual cycle 11/05/2011 Placenta previa without hemo rrhage, antepartum 07/21/2008 10/16/2008 Supervision of normal first 03/11/2008 03/27/2009 documented as of this encounter (statuses as of 07/22/2023) [address]27-2023 History of Past illness Narrative* Problem Noted Date Diagnosed Date Resolved Date Obesity, Class II, BMI 35-39.9 01/29/2023 06/02/2023 Stress hyperglycemia 11/22/2019 020 Overview: History/Assessment: BG controlled Plan: Start SSI coverage Obesity, Class II, BMI 35-39.9 11/22/2019 11/22/2019 Postoperative pain 11/21/2019 0 Overview: History: No PMH of chronic pain. 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 Atelectasis 11/21/2019 11/22/2019 Overview: History: Postoperative Assessment: Grade I Airway on 1L NC Plan: OOB, wean o2, and pep Family history of hypertrophic cardiomyopathy 01/19/20 14 09/22/2018 Irregular menstrual cycle 11/05/2011 Placenta previa without hemo rrhage, antepartum 07/21/2008 10/16/2008 Supervision of normal first 03/11/2008 03/27/2009 documented as of this encounter (statuses as of 07/25/2023) [facility] of Past illness Narrative* Problem Noted Date Diagnosed Date Resolved Date Obesity, Class II, BMI 35-39.9 01/29/2023 06/02/2023 Stress hyperglycemia 11/22/2019 020 Overview: History/Assessment: BG controlled Plan: Start SSI coverage Obesity, Class II, BMI 35-39.9 11/22/2019 11/22/2019 Postoperative pain 11/21/2019 0 Overview: History: No PMH of chronic pain. 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 Atelectasis 11/21/2019 11/22/2019 Overview: History: Postoperative Assessment: Grade I Airway on 1L NC Plan: OOB, wean o2, and pep Family history of hypertrophic cardiomyopathy 01/19/20 14 09/22/2018 Irregular menstrual cycle 11/05/2011 Placenta previa without hemo rrhage, antepartum 07/21/2008 10/16/2008 Supervision of normal first 03/11/2008 03/27/2009 documented as of this encounter (statuses as of 07/30/2023) [facility] of Past illness Narrative* Problem Noted Date Diagnosed Date Resolved Date Obesity, Class II, BMI 35-39.9 01/29/2023 06/02/2023 Stress hyperglycemia 11/22/2019 020 Overview: History/Assessment: BG controlled Plan: Start SSI coverage Obesity, Class II, BMI 35-39.9 11/22/2019 11/22/2019 Postoperative pain 11/21/2019 0 Overview: History: No PMH of chronic pain. 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 Atelectasis 11/21/2019 11/22/2019 Overview: History: Postoperative Assessment: Grade I Airway on 1L NC Plan: OOB, wean o2, and pep Family history of hypertrophic cardiomyopathy 01/19/20 14 09/22/2018 Irregular menstrual cycle 11/05/2011 Placenta previa without hemo rrhage, antepartum 07/21/2008 10/16/2008 Supervision of normal first 03/11/2008 03/27/2009 documented as of this encounter (statuses as of 08/05/2023) [facility] of Past illness Narrative* Problem Noted Date Diagnosed Date Resolved Date Obesity, Class II, BMI 35-39.9 01/29/2023 06/02/2023 Stress hyperglycemia 11/22/2019 020 Overview: History/Assessment: BG controlled Plan: Start SSI coverage Obesity, Class II, BMI 35-39.9 11/22/2019 11/22/2019 Postoperative pain 11/21/2019 0 Overview: History: No PMH of chronic pain. 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 Atelectasis 11/21/2019 11/22/2019 Overview: History: Postoperative Assessment: Grade I Airway on 1L NC Plan: OOB, wean o2, and pep Family history of hypertrophic cardiomyopathy 01/19/20 14 09/22/2018 Irregular menstrual cycle 11/05/2011 Placenta previa without hemo rrhage, antepartum 07/21/2008 10/16/2008 Supervision of normal first 03/11/2008 03/27/2009 documented as of this encounter (statuses as of 08/06/2023) [facility] of Past illness Narrative* Problem Noted Date Diagnosed Date Resolved Date Obesity, Class II, BMI 35-39.9 01/29/2023 06/02/2023 Stress hyperglycemia 11/22/2019 020 Overview: History/Assessment: BG controlled Plan: Start SSI coverage Obesity, Class II, BMI 35-39.9 11/22/2019 11/22/2019 Postoperative pain 11/21/2019 0 Overview: History: No PMH of chronic pain. 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 Atelectasis 11/21/2019 11/22/2019 Overview: History: Postoperative Assessment: Grade I Airway on 1L NC Plan: OOB, wean o2, and pep Family history of hypertrophic cardiomyopathy 01/19/20 14 09/22/2018 Irregular menstrual cycle 11/05/2011 Placenta previa without hemo rrhage, antepartum 07/21/2008 10/16/2008 Supervision of normal first 03/11/2008 03/27/2009 documented as of this encounter (statuses as of 08/28/2023) [facility]04-27-2023 History of Past illness Narrative* Problem Noted Date Diagnosed Date Resolved Date Obesity, Class II, BMI 35-39.9 01/29/2023 06/02/2023 Stress hyperglycemia 11/22/2019 020 Overview: History/Assessment: BG controlled Plan: Start SSI coverage Obesity, Class II, BMI 35-39.9 11/22/2019 11/22/2019 Postoperative pain 11/21/2019 0 Overview: History: No PMH of chronic pain. 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 Atelectasis 11/21/2019 11/22/2019 Overview: History: Postoperative Assessment: Grade I Airway on 1L NC Plan: OOB, wean o2, and pep Family history of hypertrophic cardiomyopathy 01/19/20 14 09/22/2018 Irregular menstrual cycle 11/05/2011 Placenta previa without hemo rrhage, antepartum 07/21/2008 10/16/2008 Supervision of normal first 03/11/2008 03/27/2009 documented as of this encounter (statuses as of 09/02/2023) [address]27-2023 History of Past illness Narrative* Problem Noted Date Diagnosed Date Resolved Date Obesity, Class II, BMI 35-39.9 01/29/2023 06/02/2023 Stress hyperglycemia 11/22/2019 020 Overview: History/Assessment: BG controlled Plan: Start SSI coverage Obesity, Class II, BMI 35-39.9 11/22/2019 11/22/2019 Postoperative pain 11/21/2019 0 Overview: History: No PMH of chronic pain. 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 Atelectasis 11/21/2019 11/22/2019 Overview: History: Postoperative Assessment: Grade I Airway on 1L NC Plan: OOB, wean o2, and pep Family history of hypertrophic cardiomyopathy 01/19/20 14 09/22/2018 Irregular menstrual cycle 11/05/2011 Placenta previa without hemo rrhage, antepartum 07/21/2008 10/16/2008 Supervision of normal first 03/11/2008 03/27/2009 documented as of this encounter (statuses as of 09/02/2023) [address]27-2023 History of Past illness Narrative* Problem Noted Date Diagnosed Date Resolved Date Obesity, Class II, BMI 35-39.9 01/29/2023 06/02/2023 Stress hyperglycemia 11/22/2019 020 Overview: History/Assessment: BG controlled Plan: Start SSI coverage Obesity, Class II, BMI 35-39.9 11/22/2019 11/22/2019 Postoperative pain 11/21/2019 0 Overview: History: No PMH of chronic pain. 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 Atelectasis 11/21/2019 11/22/2019 Overview: History: Postoperative Assessment: Grade I Airway on 1L NC Plan: OOB, wean o2, and pep Family history of hypertrophic cardiomyopathy 01/19/20 14 09/22/2018 Irregular menstrual cycle 11/05/2011 Placenta previa without hemo rrhage, antepartum 07/21/2008 10/16/2008 Supervision of normal first 03/11/2008 03/27/2009 documented as of this encounter (statuses as of 09/10/2023) [place] [id number] History of Past illness Narrative* Problem Noted Date Diagnosed Date Resolved Date Obesity, Class II, BMI 35-39.9 01/29/2023 06/02/2023 Stress hyperglycemia 11/22/2019 020 Overview: History/Assessment: BG controlled Plan: Start SSI coverage Obesity, Class II, BMI 35-39.9 11/22/2019 11/22/2019 Postoperative pain 11/21/2019 0 Overview: History: No PMH of chronic pain. 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 Atelectasis 11/21/2019 11/22/2019 Overview: History: Postoperative Assessment: Grade I Airway on 1L NC Plan: OOB, wean o2, and pep Family history of hypertrophic cardiomyopathy 01/19/20 14 09/22/2018 Irregular menstrual cycle 11/05/2011 Placenta previa without hemo rrhage, antepartum 07/21/2008 10/16/2008 Supervision of normal first 03/11/2008 03/27/2009 documented as of this encounter (statuses as of 09/11/2023) [facility]04-27-2023 History of Past illness Narrative* Problem Noted Date Diagnosed Date Resolved Date Obesity, Class II, BMI 35-39.9 01/29/2023 06/02/2023 Stress hyperglycemia 11/22/2019 020 Overview: History/Assessment: BG controlled Plan: Start SSI coverage Obesity, Class II, BMI 35-39.9 11/22/2019 11/22/2019 Postoperative pain 11/21/2019 0 Overview: History: No PMH of chronic pain. 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 Atelectasis 11/21/2019 11/22/2019 Overview: History: Postoperative Assessment: Grade I Airway on 1L NC Plan: OOB, wean o2, and pep Family history of hypertrophic cardiomyopathy 01/19/20 14 09/22/2018 Irregular menstrual cycle 11/05/2011 Placenta previa without hemo rrhage, antepartum 07/21/2008 10/16/2008 Supervision of normal first 03/11/2008 03/27/2009 documented as of this encounter (statuses as of 09/11/2023) [facility]04-27-2023 History of Past illness Narrative* Problem Noted Date Diagnosed Date Resolved Date Obesity, Class II, BMI 35-39.9 01/29/2023 06/02/2023 Stress hyperglycemia 11/22/2019 020 Overview: History/Assessment: BG controlled Plan: Start SSI coverage Obesity, Class II, BMI 35-39.9 11/22/2019 11/22/2019 Postoperative pain 11/21/2019 0 Overview: History: No PMH of chronic pain. 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 Gama Rubin: felt nodule smaller, did not recommend KE 02/09/14 NM uptake scan: hypo-functoning thyroid nodule right mid-lobe Family history of hypertrophic cardiomyopathy 01/19/20 14 09/22/2018 Irregular menstrual cycle 11/05/2011 Placenta previa without hemo rrhage, antepartum 07/21/2008 10/16/2008 Supervision of normal first 03/11/2008 03/27/2009 documented as of this encounter (statuses as of 11/06/2023) [facility]04-27-2023 History of Past illness Narrative* Problem Noted Date Diagnosed Date Resolved Date Obesity, Class II, BMI 35-39.9 01/29/2023 06/02/2023 Stress hyperglycemia 11/22/2019 020 Overview: History/Assessment: BG controlled Plan: Start SSI coverage Obesity, Class II, BMI 35-39.9 11/22/2019 11/22/2019 Postoperative pain 11/21/2019 0 Overview: History: No PMH of chronic pain. 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 Gama Rubin: felt nodule smaller, did not recommend KE 02/09/14 NM uptake scan: hypo-functoning thyroid nodule right mid-lobe Family history of hypertrophic cardiomyopathy 01/19/20 14 09/22/2018 Irregular menstrual cycle 11/05/2011 Placenta previa without hemo rrhage, antepartum 07/21/2008 10/16/2008 Supervision of normal first 03/11/2008 03/27/2009 documented as of this encounter (statuses as of 11/12/2023) [facility]04-27-2023 History of Past illness Narrative* Problem Noted Date Diagnosed Date Resolved Date Obesity, Class II, BMI 35-39.9 01/29/2023 06/02/2023 Stress hyperglycemia 11/22/2019 020 Overview: History/Assessment: BG controlled Plan: Start SSI coverage Obesity, Class II, BMI 35-39.9 11/22/2019 11/22/2019 Postoperative pain 11/21/2019 0 Overview: History: No PMH of chronic pain. 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 Gama Serratobody: felt nodule smaller, did not recommend KE 02/09/14 NM uptake scan: hypo-functoning thyroid nodule right mid-lobe Family history of hypertrophic cardiomyopathy 01/19/20 14 09/22/2018 Irregular menstrual cycle 11/05/2011 Placenta previa without hemo rrhage, antepartum 07/21/2008 10/16/2008 Supervision of normal first 03/11/2008 03/27/2009 documented as of this encounter (statuses as of 11/12/2023) [facility]04-27-2023 History of Past illness Narrative* Problem Noted Date Diagnosed Date Resolved Date Obesity, Class II, BMI 35-39.9 01/29/2023 06/02/2023 Stress hyperglycemia 11/22/2019 020 Overview: History/Assessment: BG controlled Plan: Start SSI coverage Obesity, Class II, BMI 35-39.9 11/22/2019 11/22/2019 Postoperative pain 11/21/2019 0 Overview: History: No PMH of chronic pain. 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 Gama Serratobody: felt nodule smaller, did not recommend KE 02/09/14 NM uptake scan: hypo-functoning thyroid nodule right mid-lobe Family history of hypertrophic cardiomyopathy 01/19/20 14 09/22/2018 Irregular menstrual cycle 11/05/2011 Placenta previa without hemo rrhage, antepartum 07/21/2008 10/16/2008 Supervision of normal first 03/11/2008 03/27/2009 documented as of this encounter (statuses as of 11/19/2023) [facility]04-27-2023 History of Past illness Narrative* Problem Noted Date Diagnosed Date Resolved Date Obesity, Class II, BMI 35-39.9 01/29/2023 06/02/2023 Stress hyperglycemia 11/22/2019 020 Overview: History/Assessment: BG controlled Plan: Start SSI coverage Obesity, Class II, BMI 35-39.9 11/22/2019 11/22/2019 Postoperative pain 11/21/2019 0 Overview: History: No PMH of chronic pain. 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 Gama Rubin: felt nodule smaller, did not recommend KE 02/09/14 NM uptake scan: hypo-functoning thyroid nodule right mid-lobe Family history of hypertrophic cardiomyopathy 01/19/20 14 09/22/2018 Irregular menstrual cycle 11/05/2011 Placenta previa without hemo rrhage, antepartum 07/21/2008 10/16/2008 Supervision of normal first 03/11/2008 03/27/2009 documented as of this encounter (statuses as of 12/03/2023) [facility]04-27-2023 History of Past illness Narrative* Problem Noted Date Diagnosed Date Resolved Date Obesity, Class II, BMI 35-39.9 01/29/2023 06/02/2023 Stress hyperglycemia 11/22/2019 020 Overview: History/Assessment: BG controlled Plan: Start SSI coverage Obesity, Class II, BMI 35-39.9 11/22/2019 11/22/2019 Postoperative pain 11/21/2019 0 Overview: History: No PMH of chronic pain. 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 Gama Rubin: felt nodule smaller, did not recommend KE 02/09/14 NM uptake scan: hypo-functoning thyroid nodule right mid-lobe Family history of hypertrophic cardiomyopathy 01/19/20 14 09/22/2018 Irregular menstrual cycle 11/05/2011 Placenta previa without hemo rrhage, antepartum 07/21/2008 10/16/2008 Supervision of normal first 03/11/2008 03/27/2009 documented as of this encounter (statuses as of 12/03/2023) [facility]04-27-2023 History of Past illness Narrative* Problem Noted Date Diagnosed Date Resolved Date Obesity, Class II, BMI 35-39.9 01/29/2023 06/02/2023 Stress hyperglycemia 11/22/2019 020 Overview: History/Assessment: BG controlled Plan: Start SSI coverage Obesity, Class II, BMI 35-39.9 11/22/2019 11/22/2019 Postoperative pain 11/21/2019 0 Overview: History: No PMH of chronic pain. 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 Gama Serratobody: felt nodule smaller, did not recommend KE 02/09/14 NM uptake scan: hypo-functoning thyroid nodule right mid-lobe Family history of hypertrophic cardiomyopathy 01/19/20 14 09/22/2018 Irregular menstrual cycle 11/05/2011 Placenta previa without hemo rrhage, antepartum 07/21/2008 10/16/2008 Supervision of normal first 03/11/2008 03/27/2009 documented as of this encounter (statuses as of 12/08/2023) [facility]04-27-2023 History of Past illness Narrative* Problem Noted Date Diagnosed Date Resolved Date Obesity, Class II, BMI 35-39.9 01/29/2023 06/02/2023 Stress hyperglycemia 11/22/2019 020 Overview: History/Assessment: BG controlled Plan: Start SSI coverage Obesity, Class II, BMI 35-39.9 11/22/2019 11/22/2019 Postoperative pain 11/21/2019 0 Overview: History: No PMH of chronic pain. 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 Gama Rubin: felt nodule smaller, did not recommend KE 02/09/14 NM uptake scan: hypo-functoning thyroid nodule right mid-lobe Family history of hypertrophic cardiomyopathy 01/19/20 14 09/22/2018 Irregular menstrual cycle 11/05/2011 Placenta previa without hemo rrhage, antepartum 07/21/2008 10/16/2008 Supervision of normal first 03/11/2008 03/27/2009 documented as of this encounter (statuses as of 12/14/2023) [facility]-2023 History of Past illness Narrative* Problem Noted Date Diagnosed Date Resolved Date Obesity, Class II, BMI 35-39.9 01/29/2023 06/02/2023 Stress hyperglycemia 11/22/2019 020 Overview: History/Assessment: BG controlled Plan: Start SSI coverage Obesity, Class II, BMI 35-39.9 11/22/2019 11/22/2019 Postoperative pain 11/21/2019 0 Overview: History: No PMH of chronic pain. 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 Gama Rubin: felt nodule smaller, did not recommend KE 02/09/14 NM uptake scan: hypo-functoning thyroid nodule right mid-lobe Family history of hypertrophic cardiomyopathy 01/19/20 14 09/22/2018 Irregular menstrual cycle 11/05/2011 Placenta previa without hemo rrhage, antepartum 07/21/2008 10/16/2008 Supervision of normal first 03/11/2008 03/27/2009 documented as of this encounter (statuses as of 12/17/2023) [facility]2023 History of Past illness Narrative* Problem Noted Date Diagnosed Date Resolved Date Obesity, Class II, BMI 35-39.9 01/29/2023 06/02/2023 Stress hyperglycemia 11/22/2019 020 Overview: History/Assessment: BG controlled Plan: Start SSI coverage Obesity, Class II, BMI 35-39.9 11/22/2019 11/22/2019 Postoperative pain 11/21/2019 0 Overview: History: No PMH of chronic pain. 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 Gama Rubin: felt nodule smaller, did not recommend KE 02/09/14 NM uptake scan: hypo-functoning thyroid nodule right mid-lobe Family history of hypertrophic cardiomyopathy 01/19/20 14 09/22/2018 Irregular menstrual cycle 11/05/2011 Placenta previa without hemo rrhage, antepartum 07/21/2008 10/16/2008 Supervision of normal first 03/11/2008 03/27/2009 documented as of this encounter (statuses as of 12/21/2023) [facility]2023 History of Past illness Narrative* Problem Noted Date Diagnosed Date Resolved Date Obesity, Class II, BMI 35-39.9 01/29/2023 06/02/2023 Stress hyperglycemia 11/22/2019 020 Overview: History/Assessment: BG controlled Plan: Start SSI coverage Obesity, Class II, BMI 35-39.9 11/22/2019 11/22/2019 Postoperative pain 11/21/2019 0 Overview: History: No PMH of chronic pain. 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 Gama Rubin: felt nodule smaller, did not recommend KE 02/09/14 NM uptake scan: hypo-functoning thyroid nodule right mid-lobe Family history of hypertrophic cardiomyopathy 01/19/20 14 09/22/2018 Irregular menstrual cycle 11/05/2011 Placenta previa without hemo rrhage, antepartum 07/21/2008 10/16/2008 Supervision of normal first 03/11/2008 03/27/2009 documented as of this encounter (statuses as of 12/23/2023) [facility] History of Past illness Narrative* Problem Noted Date Diagnosed Date Resolved Date Obesity, Class II, BMI 35-39.9 01/29/2023 06/02/2023 Stress hyperglycemia 11/22/2019 020 Overview: History/Assessment: BG controlled Plan: Start SSI coverage Obesity, Class II, BMI 35-39.9 11/22/2019 11/22/2019 Postoperative pain 11/21/2019 0 Overview: History: No PMH of chronic pain. 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 Gama Serratobody: felt nodule smaller, did not recommend KE 02/09/14 NM uptake scan: hypo-functoning thyroid nodule right mid-lobe Family history of hypertrophic cardiomyopathy 01/19/20 14 09/22/2018 Irregular menstrual cycle 11/05/2011 Placenta previa without hemo rrhage, antepartum 07/21/2008 10/16/2008 Supervision of normal first 03/11/2008 03/27/2009 documented as of this encounter (statuses as of 12/28/2023) [facility] History of Past illness Narrative* Problem Noted Date Diagnosed Date Resolved Date Obesity, Class II, BMI 35-39.9 01/29/2023 06/02/2023 Stress hyperglycemia 11/22/2019 020 Overview: History/Assessment: BG controlled Plan: Start SSI coverage Obesity, Class II, BMI 35-39.9 11/22/2019 11/22/2019 Postoperative pain 11/21/2019 0 Overview: History: No PMH of chronic pain. 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 Gama Serratobody: felt nodule smaller, did not recommend KE 02/09/14 NM uptake scan: hypo-functoning thyroid nodule right mid-lobe Family history of hypertrophic cardiomyopathy 01/19/20 14 09/22/2018 Irregular menstrual cycle 11/05/2011 Placenta previa without hemo rrhage, antepartum 07/21/2008 10/16/2008 Supervision of normal first 03/11/2008 03/27/2009 documented as of this encounter (statuses as of 12/29/2023) [facility] History of Past illness Narrative* Problem Noted Date Diagnosed Date Resolved Date Obesity, Class II, BMI 35-39.9 01/29/2023 06/02/2023 Stress hyperglycemia 11/22/2019 020 Overview: History/Assessment: BG controlled Plan: Start SSI coverage Obesity, Class II, BMI 35-39.9 11/22/2019 11/22/2019 Postoperative pain 11/21/2019 0 Overview: History: No PMH of chronic pain. 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 Gama Rubin: felt nodule smaller, did not recommend KE 02/09/14 NM uptake scan: hypo-functoning thyroid nodule right mid-lobe Family history of hypertrophic cardiomyopathy 01/19/20 14 09/22/2018 Irregular menstrual cycle 11/05/2011 Placenta previa without hemo rrhage, antepartum 07/21/2008 10/16/2008 Supervision of normal first 03/11/2008 03/27/2009 documented as of this encounter (statuses as of 01/14/2024) [facility]04-27-2023 History of Past illness Narrative* Problem Noted Date Diagnosed Date Resolved Date Obesity, Class II, BMI 35-39.9 01/29/2023 06/02/2023 Stress hyperglycemia 11/22/2019 020 Overview: History/Assessment: BG controlled Plan: Start SSI coverage Obesity, Class II, BMI 35-39.9 11/22/2019 11/22/2019 Postoperative pain 11/21/2019 0 Overview: History: No PMH of chronic pain. 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 Gama Rubin: felt nodule smaller, did not recommend KE 02/09/14 NM uptake scan: hypo-functoning thyroid nodule right mid-lobe Family history of hypertrophic cardiomyopathy 01/19/20 14 09/22/2018 Irregular menstrual cycle 11/05/2011 Placenta previa without hemo rrhage, antepartum 07/21/2008 10/16/2008 Supervision of normal first 03/11/2008 03/27/2009 documented as of this encounter (statuses as of 01/14/2024) [facility]04-27-2023 History of Past illness Narrative* Problem Noted Date Diagnosed Date Resolved Date Obesity, Class II, BMI 35-39.9 01/29/2023 06/02/2023 Stress hyperglycemia 11/22/2019 020 Overview: History/Assessment: BG controlled Plan: Start SSI coverage Obesity, Class II, BMI 35-39.9 11/22/2019 11/22/2019 Postoperative pain 11/21/2019 0 Overview: History: No PMH of chronic pain. 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 Gama Serratobody: felt nodule smaller, did not recommend KE 02/09/14 NM uptake scan: hypo-functoning thyroid nodule right mid-lobe Family history of hypertrophic cardiomyopathy 01/19/20 14 09/22/2018 Irregular menstrual cycle 11/05/2011 Placenta previa without hemo rrhage, antepartum 07/21/2008 10/16/2008 Supervision of normal first 03/11/2008 03/27/2009 documented as of this encounter (statuses as of 01/21/2024) [facility]04-27-2023 History and physical note* Sallie Pearl PA-C - 01/29/2023 12:40 PM EDT HISTORY AND PHYSICAL EXAMINATION SERVICE DATE: 01/29/2023 SERVICE TIME: 11:56 AM PRIMARY CARE PHYSICIAN: Kylah Palma PA-C REASON FOR VISIT: Chavo Tom is a 42 year old female who is scheduled for LAPAROSCOPIC GASTRIC RESTRICTIVE SURG W/ BYPASS & JENNY-EN-Y 150CM OR LESS at the request of Dr. Esperanza Mercer for consultation. My final recommendation will be communicated back to the requesting physician by way of shared medical record or letter. The patient has the following: ACTIVE PROBLEM LIST Impaired Glucose Tolerance Vaginal High Risk Hpv Dna Test Positive Palpitation Hocm (Hypertrophic Obstructive Cardiomyopathy) (Hcc) Body Mass Index 40.0-44.9, Adult ([facility]) Atrial Fibrillation (Hcc) Ventricular Tachyarrhythmia ([facility]) Inubw-Bhigqrcol-Ppfad (Wpw) Syndrome Thyroid Nodule, Cold Icd (Implantable Cardioverter-Defibrillator) in Place Pre-Op Testing Discharge Planning Issues Clinical summary Acute On Chronic Diastolic (Congestive) Heart Failure (Hcc) Summary Dilated Cardiomyopathy (Hcc) Left Bundle Branch Block Paroxysmal Atrial Fibrillation (Hcc) Class 3 Severe Obesity Due to Excess Calories Without Serious Comorbidity With Body Mass Index (Bmi) of 45.0 to 49.9 in Adult (Hcc) Patient Under Care of Multiple Providers Metabolic Syndrome Pre-Diabetes Vitamin D Deficiency, Unspecified Quinton (Obstructive Sleep Apnea) History of Atrial Fibrillation S/P Ablation of Accessory Bypass Tract Syncope Obesity, Class II, Bmi 35-39.9 Subjective CHIEF COMPLAINT: morbid obesity HPI: 42 year old female scheduled for LAPAROSCOPIC GASTRIC RESTRICTIVE SURG W/ BYPASS & JENNY-EN-Y 150CM OR LESS on 02/18/2023. Patient is morbidly obese, Body mass index is 40.19 kg/m .. Denies any fever, chills, nausea, vomiting, chest pain, abdominal pain, SOB. 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 Cardioverted with 150j under sedation DEFIBRILLATOR SURGERY 02/24/2014 ICD, redo WPW & atrial fib ablation EPS: DEFIB. SURGERY 05/16/2021 Exchange of a SamEnrico SQ-RX 1010 pulse generator with a BOSTON PAST SURGICAL HISTORY OF 07/06/2014 WPW ablation PAST SURGICAL HISTORY OF 11/21/2019 MVr, myectomy, PVI, LAAC TYMPANOSTOMY LOCAL/TOPICAL ANESTHESIA Right FAMILY HISTORY Problem Relation Age of Onset Lipids Father Diabetes Mother Hypertension Mother Thyroid Mother Coronary Artery Disease Mother CABG 2012 Diabetes Brother Heart Sister HOCM s/p ICD None Maternal Grandfather age 46-"suddenly" Heart Maternal Grandmother OR age 72 Alcohol/Drug Paternal Grandfather ETOH Diabetes Maternal Aunt Diabetes Maternal Uncle Colon Cancer No Family History Anesthesia Problems No Family History SOCIAL HISTORY: Social History Tobacco Use Smoking status: Never Smokeless tobacco: Never Vaping Use Vaping Use: Never used Substance Use Topics Alcohol use: No Drug use: No Prior to Admission medications as of 01/29/23 1156 Medication Sig Last Dose Taking cholecalciferol, vitamin D3, (VITAMIN D3 ORAL) Take by mouth. Taking Yes tacrolimus (PROTOPIC) 0.03 % ointment Apply to affected area twice daily. Taking Yes metoprolol succinate ER (TOPROL XL) 25 mg 24 hr tablet Take 1.5 tablets by mouth twice daily with meals. Taking Yes sotalol (BETAPACE) 120 mg tablet Take 1 tablet by mouth twice daily. Taking Yes doxycycline (VIBRA-TABS) 100 mg tablet Take 100 mg by mouth twice daily. Taking Yes cycloSPORINE (RESTASIS) 0.05 % ophthalmic emulsion Use 1 Drop in both eyes twice daily. Taking Yes CPAP/BIPAP/OTHER New set: Settings 4 - 8 cm H2O, suitable mask per pt preference (nasal or pillow opt), chin strap, head gear, humidity, tubing, lifetime supplies. G47.33 QUINTON Taking Yes apixaban (ELIQUIS) 5 mg tab(s) Take 1 tablet by mouth twice daily. Taking Yes semaglutide, weight loss, (WEGOVY) 2.4 mg/0.75 mL pen injector Inject 0.75 mL subcutaneously one time a week. Taking Yes aspirin 81 mg chewable tablet Take 1 tablet by mouth once daily. Taking Yes No medication comments found. ALLERGIES Allergen Reactions Metformin Diarrhea COVID VACCINATION STATUS: Not vaccinated, prior infection REVIEW OF SYSTEMS: PAIN ASSESSMENT: General: No weight loss, malaise or fevers. Neuro: No history of TIA's, stroke, [employer] tumor, impaired sensorium, hemiplegia, paraplegia or quadraplegia. No neurological symptoms or problems. Respiratory: Negative for Asthma, Bronchitis, COPD, Current cough, Dyspnea, Pneumonia within 6 weeks (date), Tobacco Use, URI < 2 weeks+QUINTON-uses CPAP Cardiovascular: Negative for Recent OR, Angina, CAD, Chest Pain, PVD, DVT/PE+HOCM-s/p septal myectomy 11/2019, +WPW-s/p ablation 2013, +s/p Mitral valve repair with papillary muscle reorientation, pulmonary vein isolation with cryo and left atrail appendage clip 11/2019, +ICD-about 5 years ago, replaced last year, +a fib-s/p ablation Follows with cardiology Dr. Jayjay Ortiz, last visit 11/25/22 GI: No history of GI symptoms or problems. No history of esophageal varices, recent ascites, or ETOH greater than 2 drinks per day. 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 : Denies, Patient's last menstrual period was 01/06/2012. Endocrine: no thyroid disease, no oral steroids in the last 30 days +prediabetes-last A1c 5.4 Hematology: No history of bleeding or clotting disorder. No history of hematological symptoms or problems.+Eliquis Oncology: No history of CA metastasis, chemo within 30 days, or radiotherapy within 90 days. Has not lost 10% of body wt in 6 months. No history of oncological symptoms or problems. Psych: No history of psychiatric symptoms or problems. Musculoskeletal: Negative for joint pain or swelling, back pain or muscle pain. Skin: Negative for lesions, rash and itching. Objective PHYSICAL EXAM: VITALS: BP 113/74 Pulse 62 Temp (Src) 97.8 (Temporal) Ht 5' 8" (1.73m) Wt 264 lb 4.8 oz (119.9kg) SpO2 100% LMP 01/06/2012 BMI 40.20 kg/(m^2). General: Alert and oriented, No acute distress Skin: Normal color, no rash, no lesions. HEENT: EOM, pupils equal, round and reactive., No carotid bruits Cardiovascular: Normal S1 & S2, no rubs, murmurs or gallops. No JVD. Pulse regular. Lungs: Normal breath sounds, no wheezes or crackles. Extremities: No deformity, no edema or tenderness, no joint swelling or clubbing. Neurological: Normal cognition and motor skills. Gait normal. No weakness or sensory deficit. Pulses: Radial pulses normal +2. Diagnostic tests reviewed for today's visit: Lab Value Units Date High Low HB 13.7 g/dL 01/29/2023 15.5 11.5 HCT 41.6 % 01/29/2023 46.0 36.0 WBC 7.09 k/uL 01/29/2023 11.00 3.70 PLT 343 k/uL 01/29/2023 400 150 NA 138 mmol/L 09/10/2022 144 136 K 4.1 mmol/L 09/10/2022 5.1 3.7 GLUC 82 mg/dL 09/10/2022 99 74 BUN 16 mg/dL 09/10/2022 21 7 CREAT 0.78 mg/dL 09/10/2022 0.96 0.58 PTSEC No results within date range. INR No results within date range. APTT No results within date range. ALT 20 U/L 09/10/2022 38 7 AST 24 U/L 09/10/2022 35 13 TBILI 0.8 mg/dL 09/10/2022 1.3 0.2 TSH 2.580 mIU/L 09/18/2022 4.200 0.270 Lab Value Units Date High Low HCGQT No results within date range. UHCG No results within date range. HCG, BODY* No results within date range. Lab Value Units Date High Low ABORHD No results within date range. ABSCREEN No results within date range. Hemoglobin A1C (%) Date Value 09/10/2022 5.4 01/07/2021 6.0 04/27/2020 5.7 11/25/2019 5.6 HBA1CCyn (%) Date Value 11/05/2011 5.4 Labs pending EKG 11/25/22 Diagnosis: NORMAL SINUS RHYTHM COMPLETE LEFT BUNDLE BRANCH BLOCK ABNORMAL ECG ICD in Clinic check 10/22/22 SUBQ ICD EVALUATION: RHYTHM: SR BATTERY STATUS: Remaining Battery Life to SYDNEY: 85% ALERT: Tone demonstrated and patient aware need for follow up. LEAD ELECTRODE: ok @ 70 ohms SMART PASS: ON IMPLANT SITE/ SYMPTOMS: The incision and pocket are pain-free, well healed and without signs of erosion or infection. ARRHYTHMIAS: There have not been any ventricular detections or therapy delivered since the last evaluation. No new AF detection since the last remote evaluation ECHO 10/22/22 CONCLUSIONS: - Technically difficult exam due to body habitus. - Exam indication: HOCM - The left ventricle is normal in size. There is left ventricular hypertrophy. Left ventricular systolic function is normal. EF = 70 5% (2D biplane) Normal left ventricular diastolic function. - The right ventricle is normal in size. Right ventricular systolic function is normal. At rest, there is no mitral leaflet ALDO, mild chordeal ALDO, 1+MR, Peak LVOT gradient 5 mmHg. There was no significant change with Valsalva (peak LVOT gradient 10 mmHg). No Amyl given. - Incidental well circumscribed liver lesion, more prominent on current study compared to prior. (clips [id number], 107) - Exam was compared with the prior echocardiographic exam performed on 03/19/2021. Incidental finding as above; otherwise, no significant change. Assessment/Plan HOCM (hypertrophic obstructive cardiomyopathy) (HCC) -s/p septal myectomy, MVr, papillary muscle reorientation, pulmonary vein isolation, and left atrial appendage clip 11/2019 -denies cardiac symptoms -Follows with cardiology Dr. Jayjay Ortiz, last visit 11/25/22 Zaucm-Ralkrorrr-Ldcid (WPW) syndrome -s/p ablation 2013 -stable on metoprolol and sotalol -on Eliquis, ok to hold 3 days per cardiology -denies cardiac symptoms -Follows with cardiology Dr. Jayjay Ortiz, last visit 11/25/22 Paroxysmal atrial fibrillation (HCC) -s/p ablation 2013 -stable on metoprolol and sotalol -on Eliquis, ok to hold 3 days per cardiology -denies cardiac symptoms -Follows with cardiology Dr. Jayjay Ortiz, last visit 11/25/22 ICD (implantable cardioverter-defibrillator) in place -placed about 5 years ago, replaced last year -last in clinic check 10/22/22 Acute on chronic diastolic (congestive) heart failure (HCC) -stable -EF = 70 5% (2D biplane) Normal left ventricular diastolic function -denies cardiac symptoms -Follows with cardiology Dr. Jayjay Ortiz, last visit 11/25/22 QUINTON (obstructive sleep apnea) -uses CPAP Body mass index 40.0-44.9, adult (HCC) -Body mass index is 40.19 kg/m . Pre-diabetes -last A1c 5.4 METS: Climb a flight of stairs or walk up a hill (5.50 METs) Patient denies any chest pain or undue shortness of breath with the above physical activity. ASA Class: 3 ANESTHESIA FINDINGS: Intubation History: No history of difficult intubation Significant Anesthesia Considerations: None Airway Exam: General: Morbid obesity Mallampati Score is CLASS III ULBT: Class I - Lower incisors can bite the upper lip above the nita line Neck: Normal appearance and function, Distance from hyoid to mentum during neck extension is at least 3 finger breaths Mouth: Normal tongue size and Mouth opening greater than 2 finger breaths Dentition: Intact Airway History: No abnormal airway history Sleep Apnea Probability Snores loudly: No Tired, fatigued or sleepy in daytime: No Stops breathing or choking/gasping during sleep: No High blood pressure: No Sleep Apnea Probability Score 01/22/2023 Sleep Apnea Screen V2 13 (Sleep study not recommended) PLAN This patient is optimally prepared for surgery pending LABS. CONSULTS: The following consults have been initiated at this time: Cardiology Dr. Jayjay Ortiz: "PLAN AND RECOMMENDATIONS: She is at acceptable risk to proceed with Bariatric surgery. Maintain present regimen in post-operative period. Can hold DOAC for 2-3 days prior to surgery." The Following Tests/Procedures Have Been Initiated: CBC, CMP, T&S per surgical service. EKG 11/25/22 reviewed and accepted. Planned Anesthetic: General Instructions Given to Patient: Instructions located in the after visit summary. Patient given verbal and written preop instructions and voices comprehension and compliance. SIGNATURE: Sallie Pearl PA-C PATIENT NAME: Chavo Tom DATE: January 29, 2023 TIME: 12:16 PM [facility] Instructions* Patient Instructions* Sallie Pearl PA-C - 01/29/2023 12:02 PM EDT PATIENT PREOPERATIVE INSTRUCTIONS Esperanza Mercer MD has scheduled you for your procedure at this surgery center: [facility] Scheduling Office: [phone] --[address] [place] [address]. Please read below carefully for your personalized instructions. Dietary Restrictions: - Follow dietary instructions provided by the surgical team Is Patient Diabetic:No Medications: Unless instructed differently below, stay on all of your medications until your surgery. Approved medications to take the morning of surgery with a sip of water: metoprolol, sotalol If you start any new medications after today's visit, please contact the surgeon's office. Blood Thinning Medications: - Stop NSAIDS (Ibuprofen, Advil, Aleve, Motrin, Celebrex, Mobic, etc.) 7 days before surgery, as directed by your surgeon. - Stop Aspirin 7 days before surgery, as directed by your surgeon. - Stop Vitamin E, ALL multi-vitamins, herbals and dietary supplements 7 days before surgery. - You may take Tylenol (Acetaminophen) or any of your pain medications that do not contain aspirin or NSAIDS as needed. - stop Eliquis 3 days before surgery, last dose 02/14/23 Important Reminders: - If you use CPAP/BIPAP, bring the machine with you to the surgery center. - Candy, mints, and tobacco products are NOT permitted the morning of surgery. - Hearing aids, dentures and glasses may be worn the morning of surgery. - NO jewelry, body piercings, makeup, hairpins or contacts are to be worn the day of surgery. If you develop symptoms such as a fever, cold, or flu, or have other changes to your health within TWO DAYS of scheduled surgery or the morning of surgery, please contact the surgery center above. Personal Belongings: -Please have photo ID and insurance cards. -If you do not have a copy of advance directives on file with us, please bring a copy with you on the day of surgery. - Leave ALL valuables and money at home or with family members. For Outpatient Procedures: - YOU MUST HAVE A RESPONSIBLE DECK SCALER TAKE YOU HOME. A FOREST FIRE WARDEN OR INSTALLATION TECH CANNOT BE MADE A RESPONSIBLE DECK SCALER. - We recommend that a responsible person stays with you overnight to take care of you. - You cannot stay in a hotel alone after outpatient surgery. You will not be permitted to have yoursurgery, if you do not have someone to take care of you. Arrival Time for Surgery: - To obtain your arrival time for surgery, call your physician's office the day before your surgery. - If your surgery is scheduled for Thursday, call the Thursday before. Your surgeon s medical office scheduler will tell you what time to call the office. - If you have not reached the departmental medical office scheduler by 5 P.M., call [phone] after 5 P.M. the day before your surgery. Please be aware that emergency situations arise, which may delay or change your surgical time. If this happens, we will notify you as soon as possible and regret any inconvenience. If you already have an Advance Directive, please fax a copy to [phone] or email to for it to be added to your chart. If you do not have an Advance Directive, you can find the appropriate form and more information at [email or web address]. We recommend that youcomplete the Advance Directive form found on the website and bring it with you the day of your surgery. It can be witnessed and scanned into your chart that day. Sallie Pearl PA-C [facility] History of Present illness Narrative* Clementina Ny RN - 01/29/2023 10:11 AM EDT BMI SPECIALTY CARE COORDINATION SURGERY PRE-OP EDUCATION NOTE AMBULATORY PATIENT EDUCATION NOTE TOPIC: LIFE STYLE CHANGES: Diet and Exercise HEALTH PROMOTION: Complication prevention Follow up management Self management VTE Prevention Measure Mechanical READINESS TO LEARN COGNITIVE ABILITY: Alert and oriented MOTIVATION TO LEARN: Eager FAMILY SUPPORT: Unable to assess - Family not present INSTRUCTION PROVIDED TO: Patient PATIENT LEARNS BEST BY: Multiple Methods FACTORS AFFECTING LEARNING: None PHYSICAL LIMITATIONS AFFECTING LEARNING: None LEARNING RESPONSE DIAGNOSIS: Morbid Obesity METHOD OF INSTRUCTION: Teach Back Signs and symptoms of infection PATIENT / FAMILY RESPONSE: Verbalizes understanding of: INFECTION MANAGEMENT- Signs and symptoms of an infection and importance of contacting the physician MEDICAL REGIMEN-Importance of following prescribed medical regimen MEDICATION DOSE MISSED-Correct action to take if medication dose is missed MEDICATION PRESCRIBED-Accurate knowledge of prescribed medication prior to discharge MEDICATION ROUTE-Correct route for administration of the prescribed medication MEDICATION SIDE EFFECTS-Side effects associated with the medication that warrant a call to the physician PAIN MANAGEMENT-Effective strategies to manage pain in addition to pain medication PHYSICAL RESTRICTIONS-Physical restrictions and recommendations after discharge from the hospital POST-OPERATIVE INSTRUCTIONS-Correct actions to take to reduce postoperative complications POST-PROCEDURE INSTRUCTIONS-Correct actions to take to reduce post procedure complications PRE-OPERATIVE INSTRUCTIONS-Correct action to take to follow pre-operative instructions PRE-PROCEDURE INSTRUCTIONS-Correct action to take to follow pre-procedure instructions SYMPTOM MANAGEMENT-Correct actions to take to manage symptoms associated with his/her disease/illness VTE prevention measures WORSENING CONDITION-Signs and symptoms of a worsening condition that warrant a call to the physician FOLLOW-UP PLAN: Complete - No need for follow-up SUPPLEMENTAL MATERIAL: None REFERRAL (RECOMMENDATION): None Surgery Pre-Op Education Note in Nurse Visit Education video modules viewed by the patient: Yes Postop prescriptions provided to the patient: No Postop Surgeon Visit scheduled: Yes On-Call & Clinic Phone Number given to the Patient: Yes Pre surgery checklist reviewed: Yes Patient Instructions for the Liquid Diet: Day Before Surgery - Liquid Diet Instruction Review 1. Last Protein shake should be before 6 pm. 2. It is important that you stay hydrated - 64 ounces of fluid per day. 3. Drink a 28-32 ounce bottle of a regular (not sugar free) sport drink (Gatorade, Powerade, etc.) the night prior to surgery. If the sport drinks aren t tolerable, may substitute with no sugar added - no pulp juice - apple, cranberry, lemonade, white grape or orange. Day of Surgery Clear Liquid Diet Drink 12-20 ounces of a regular sport drink (or juice as above) stop liquids 2 hours before scheduled arrival time. Other Instructions Reviewed: Skin Preparation: Skin cleanse with antibacterial soap, Abimael, wound care, vitamin & nutrients, activity restrictions post op, discharge instructions & surgical guide, incentive spirometry;diet progression-inocencio phase I & II & 2wk liquid diet prior to surgery, activity level & pt responsibility during hospitalization. Sleep Apnea: Patient has sleep apnea? Yes. Reviewed with patient that it is important to bring their machine, mask and tubing to the hospital on the day of surgery. Patient instructed that they should wear their C-pap when arriving in room as they will have anesthesia on board that will make them sleep periodically throughout the remainder of the day of surgery. Following the first day, patient instructed that they should wear the C-pap in the hospital any time they are napping or sleeping. Explanation of the dangerous drops in oxygen level that can occur if C-pap is not applied day of surgery or subsequent days when napping or sleeping. Patient understands they are not to refuse to wear the treatment even if they feel it is uncomfortable as wearing C-pap is essential for their safety. Patient agrees to bring C-pap and wear it upon arrival from recovery room and when napping or sleeping. Yes. Do not take pain medication three hours before bedtime as it may cause breathing difficulty. If you are having pain at bedtime you may take two Extra Strength Tylenol." Clementina Ny RN documented in this [facility] History and physical note * Esperanza Mercer MD - 01/29/2023 10:00 AM EDT BARIATRIC SURGERY PREOPERATIVE VISIT NOTE SERVICE DATE: 01/29/2023 SUBJECTIVE: Chavo Tom is a 42 year old female seen in Bariatric Surgery clinic today for their final preoperative assessment. WEIGHT Current BMI: There is no height or weight on file to calculate BMI. Last Wt 12/25/22 119.3 kg (263 lb) Planned Procedure: Laparoscopic Jenny en-Y Gastric Bypass Patient Active Problem List Clinical summary History of atrial fibrillation QUINTON (obstructive sleep apnea) Metabolic syndrome Pre-diabetes Vitamin D deficiency, unspecified Patient under care of multiple providers Paroxysmal atrial fibrillation (HCC) Class 3 severe obesity due to excess calories without serious comorbidity with body mass index (BMI) of 45.0 to 49.9 in adult (HCC) Dilated cardiomyopathy (HCC) Left bundle branch block Summary Acute on chronic diastolic (congestive) heart failure (HCC) Pre-op testing Discharge planning issues ICD (implantable cardioverter-defibrillator) in place Thyroid nodule, cold Zkytl-Aemifhfqw-Fqhbi (WPW) syndrome Body mass index 40.0-44.9, adult (HCC) Atrial fibrillation (HCC) HOCM (hypertrophic obstructive cardiomyopathy) ([facility]) S/P ablation of accessory bypass tract Syncope Ventricular tachyarrhythmia ([facility]) Palpitation Vaginal high risk HPV DNA test positive Impaired glucose tolerance Resolved Hospital Problems No resolved problems to display. PAST MEDICAL HISTORY Diagnosis Date Atrial fibrillation (HCC) CHADS score 0 Cardiomyopathy (HCC) 02/24/14 Family history of hypertrophic cardiomyopathy 01/18/2014 Impaired glucose tolerance 01/21/2011 Left bundle branch block Obesity Sleep apnea Ventricular tachyarrhythmia (HCC) 02/2014 Wltpq-Saloqxvll-Lpnbd (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 Cardioverted with 150j under sedation DEFIBRILLATOR SURGERY 02/24/2014 ICD, redo WPW & atrial fib ablation EPS: DEFIB. SURGERY 05/16/2021 Exchange of a SamEnrico SQ-RX 1010 pulse generator with a No Paper Just Vapor PAST SURGICAL HISTORY OF 07/06/2014 WPW ablation PAST SURGICAL HISTORY OF 11/21/2019 MVr, myectomy, PVI, LAAC TYMPANOSTOMY LOCAL/TOPICAL ANESTHESIA Right Social History Tobacco Use Smoking status: Never Smokeless tobacco: Never Vaping Use Vaping Use: Never used Substance Use Topics Alcohol use: No Drug use: No ALLERGIES Allergen Reactions Metformin Diarrhea BMI PHYSICAL EXAM: Cardiovascular: Normal S1 & S2, no rubs, murmurs or gallops. No JVD. Pulse regular. Lungs: Normal breath sounds, no wheezes or crackles. Abdomen: Soft, non-tender, no rigidity. The remainder of the physical exam is noncontributory. MEDICATIONS: Prior to Admission Medications: tacrolimus (PROTOPIC) 0.03 % ointment^Apply to affected area twice daily.^Disp: 30 g^Rfl: 2 metoprolol succinate ER (TOPROL XL) 25 mg 24 hr tablet^Take 1.5 tablets by mouth twice daily with meals.^Disp: 90 tablet^Rfl: 6 sotalol (BETAPACE) 120 mg tablet^Take 1 tablet by mouth twice daily.^Disp: 180 tablet^Rfl: 1 doxycycline (VIBRA-TABS) 100 mg tablet^Take 100 mg by mouth twice daily.^Disp: ^Rfl: cycloSPORINE (RESTASIS) 0.05 % ophthalmic emulsion^Use 1 Drop in both eyes twice daily.^Disp: 180 Each^Rfl: 3 CPAP/BIPAP/OTHER^New set: Settings 4 - 8 cm H2O, suitable mask per pt preference (nasal or pillow opt), chin strap, head gear, humidity, tubing, lifetime supplies. G47.33 QUINTON ^Disp: 1 Each^Rfl: 11 cyclobenzaprine (FLEXERIL) 10 mg tablet^Take 1 tablet by mouth three times daily as needed for muscle spasm.^Disp: 12 tablet^Rfl: 0 apixaban (ELIQUIS) 5 mg tab(s)^Take 1 tablet by mouth twice daily.^Disp: 60 tablet^Rfl: 3 semaglutide, weight loss, (WEGOVY) 2.4 mg/0.75 mL pen injector^Inject 0.75 mL subcutaneously one time a week.^Disp: 9 mL^Rfl: 3 aspirin 81 mg chewable tablet^Take 1 tablet by mouth once daily.^Disp: 90 tablet^Rfl: 1 Current Facility-Administered Medications Medication Dose Route Frequency perflutren lipid microspheres 1.3 mL in NaCl (PF) 0.9% 10 mL injection (DEFINITY) INTRAVENOUS DIRECTED PRN sodium chloride 0.9 % (flush) 10 mL (BD POSIFLUSH) 10 mL INTRAVENOUS DIRECTED PRN VISIT NOTE: This patient was seen in clinic today to obtain informed consent and discuss the details of their upcoming operation including the appropriate expectations for perioperative and postoperative care. In addition, preoperative and postoperative relevant prescriptions were provided and explained duringthis clinic visit. The consent discussion included the risks, benefits and anticipated outcomes of the procedure, the risks and benefits of the alternatives to the procedure, and the roles and tasks of the personnel mare involved. The patient had an opportunity to ask additional questions that were answered. The patient expressed that they understood. We discussed that because aspirin (ASA) is an NSAID, it theoretically increases marginal ulcer risk(specific to RYGB). However, limited data on this shows no significant increased risk of marginal ulcer in patients who take baby dose aspirin (ASA 81 mg) vs those who do not. Encouraged further discussion of benefits vs risks of continuing baby ASA with PCP. We do, however, strongly recommend avoidance of full-dose (325mg) ASA after RYGB. Discussed potential impact of Jenny en Y gastric bypass on anticoagulation, specifically her Eliquis. Eliquis typically absorption in the proximal part small intestine, absorption can be impacted in some cases after a gastric bypass and may result in a decreased therapeutic effect. Recommended that patient monitor symptoms post-operatively and consult prescribing provider. Most of the novel oral 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 have similar challenges, and in some cases switch to parenteral anticoagulation (such as Lovenox) or Coumadin is the best alternative A consent form was signed today. Does have ICD with recent device check. Patient encouraged to additional discuss intraoperative ICDmanagement at pre anesthesia clinic. Does have gallstones - will not use Actigall post operatively and will monitor for symptoms Postoperative VTE risk is 0.25% according to VTE Risk Calculator. Script for extended prophylaxis was not provided. Patient will be resuming her prophylactic anticoagulation postoperatively. Preoperative requirements: Preoperative Checklist for Bariatric Surgery Checklist Items Completed Not Completed Preoperative H & P today Preoperative labs (including fasting glucose, blood typing and A1C) yes Preoperative cardiac work-up (EKG / ECHO) yes GI evaluation (UGI / EGD) if needed N/a Pulmonary evaluation (Patient to bring CPAP mask day of surgery) Yes, has CPAP Consult placed for difficult IV access if needed no Not needed Postoperative medications prescribed In hospital Nutrition evaluation yes Psychosocial evaluation yes ABIMAEL and preop videos confirmation Yes Stop OCP's, Aspirin, Anticoagulation prior to surgery Yes - see cardiology note Smoking cessation - Urine cotinine ordered if needed N/a Planned post op ICU admission N/a Esperanza Mercer MD 01/29/2023 7:38 AM documented [facility] History of Present illness Narrative* Tri Parker MD - 01/14/2023 12:03 PM EDT Assessment and Plan 1. 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 Irregular astigmatism of both eyes -rosacea main culprit (on doxycycline) -patient also with long history of contact lens wear (since ~age 18) with varying habits (previously diagnosed with overwear) -recurrent monthly flare-ups with redness and irritation that responds well to steroid drops Plan: -patient is very happy with improvement in vision and comfort! -preservative-free artificial tears four times a day both eyes -restasis twice a day both eyes -doxycyline 50mg daily - precautions reviewed -start protopic ointment at bedtime -3-month dissolvable collagen plug size 0.3 placed lower puncta both eyes 11/19/22 -no contact lens wear -follow-up 3 months / sooner as needed. Dr. Dimas for routine/glasses once surface stabilized -will control inflammation first (may need FML vs serum tears). Then will work on vision (unlikely but may need superficial keratectomy vs scleral lenses in the future) I have confirmed and edited as necessary the relevant ophthalmic history, ROS, and the neuro exam findings as obtained by others. I have seen and examined Chavo Tom. I have discussed the case and the management of this patient's care with the Resident/Fellow, if applicable. I also have reviewed and agree with the assessment and plan as stated above and agree withall of its relevant components. Tri Parker MD documented in this encounterL[facility]03-20-2023 Miscellaneous Notes* Telephone Encounter - [facility] - 12/22/2022 7:35 AM EDT Call from pharmacy requesting refill. Requested Prescriptions Pending Prescriptions Disp Refills metoprolol succinate ER (TOPROL XL) 25 mg 24 hr tablet 90 tablet 6 Sig: Take 1.5 tablets by mouth twice daily with meals. Patient last seen 11/25/2022 [facility] Electronically signed by [facility] at 12/22/2022 7:35 AM EDT documented in this encounterL[facility]03-13-2023 Miscellaneous Notes* Telephone Encounter - Pedro Chambers - 12/15/2022 12:28 PM EDT Imported external letter notifying of approval for DME oxygen equipment from [employer] (dated 11/24/22). Please allow time delay for documents to appear in Epic. documented in this encounterLima [facility] Hospital03-09-2023 History of Present illness Narrative* Elizabeth Shankar RDMS - 12/11/2022 8:30 AM EST Radiology Service Progress Note PATIENT NAME: Chavo Tom DATE OF SERVICE: December 11, 2022 TIME: 9:08 AM PATIENT IDENTITY VERIFICATION COMPLETED USING TWO (2) IDENTIFIERS: Name and Date of confirmedby patient verbally. FALL SCREENING: Has the patient had 2 falls in the last year or 1 fall with injury or currently using an Ambulatory Assistive Device (Walker, Cane, Wheelchair, Crutches, etc.)? No PATIENT GENDER DATA: Female. status: : No status: NO. 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 Irregular astigmatism of both eyes -rosacea main culprit (on doxycycline) -patient also with long history of contact lens wear (since ~age 18) with varying habits (previously diagnosed with overwear) -recurrent monthly flare-ups with redness and irritation that responds well to steroid drops Plan: -overall feels better and ocular surface stable -preservative-free artificial tears four times a day both eyes -restasis twice a day both eyes -doxycyline 50mg daily - precautions reviewed -start protopic ointment at bedtime -3-month dissolvable collagen plug size 0.3 placed lower puncta both eyes 11/19/22 -no contact lens wear -follow-up 1 months / sooner as needed. Dr. Dimas for routine/glasses once surface stabilized -will control inflammation first (may need FML vs serum tears). Then will work on vision (may need superficial keratectomy vs scleral lenses) I have confirmed and edited as necessary the relevant ophthalmic history, ROS, and the neuro exam findings as obtained by others. I have seen and examined Chavo Tom. I have discussed the case and the management of this patient's care with the Resident/Fellow, if applicable. I also have reviewed and agree with the assessment and plan as stated above and agree withall of its relevant components. Tri Parker MD documented in this encounterL[facility]03-03-2023 Miscellaneous Notes* Telephone Encounter - Taylor Lou MA - 12/05/2022 5:58 PM EST Patient has viewed results via [employer]. Taylor Lou MA * Telephone Encounter - Cathleen Martin LPN - 12/05/2022 8:33 AM EST Phone call placed brief message to contact a nurse to review results, [employer] logon 12/05/2022. Cathleen Martin LPN * Telephone Encounter - HALEY Garcia - 12/05/2022 7:10 AM EST Let patient know negative for COVID and flu documented in this encounterLima [facility]03-03-2023 History of Present illness Narrative* Juan Antonio Bower - 12/05/2022 11:49 AM EST CMN RECEIVED BY [employer] VIA FAX, COMPLETED, AND PLACED IN PROVIDER MAILBOX FOR SIGNATURE Juan Antonio Bower, Administration Assistance 3/3/23 Network SENDING CMN: Andrey SIGNED AND DATED CMN, FAXED TO DME & CONFIRMATION PAGE RECEIVED: 12/08/22 documented in this encounterLima City Hospital02-21-2023 History of Present illness Narrative* Jayjay Ortiz MD - 11/25/2022 9:47 AM EST Images from the original note were not included. [facility] [place] [facility] Department of Cardiovascular Medicine SECTION OF CARDIOVASCULAR IMAGING OUTPATIENT VISIT DATE November 25, 2022 OUTPATIENT VISIT TYPE ESTABLISHED PRIMARY CARE PHYSICIAN: Kylah Palma [address] [place] [address] REFERRING PHYSICIAN: SELF CHIEF COMPLAINT: Follow up HISTORY OF PRESENT ILLNESS: Ms. Tom is a 42 year old woman who presents today for follow-up visit for HCM. To summarize her history from prior notes: On 11/21/2019, she underwent Septal myectomy and Mitral Valve Repair with Papillary muscle reorientation. Pulmonary Vein Isolation with Cryo and Left Atrial Appendage Clip Pre-op cath: LMT: - The LMT is normal. LAD: - The LAD has mild luminal irregularities. Additional Comment: The LAD is a large caliber vessel that gives off a septal arcade and several moderate caliber diagonal branches. It courses to the apex. LCX: - The Circumflex has mild luminal irregularities. Additional Comment: The LCx is a large caliber vessel that gives off 2 large OM branches. His AV circ continues without any disease. RAMUS: - The Ramus is Absent. RCA: - RCA is normal. Additional Comment: LArge caliber vessel that branches into the rPDA and PLV in a right dominant system. Antecedent history of WPW ablation and PAF. Had undergone subcutaneous ICD prior to her establishing care here. She was readmitted in 12/06/2019 for AF with RVR, for which she received a shock from her ICD. Kept on amiodarone. Another shock for AF on 12/16/2019. She has followed with Dr. Recinos in and was transitioned to Sotalol 08/2020. Underwent generator change. Still with episodic AF, most of short duration. Does feel fatigued in AF. Overall she feels well. Regular exercise program. She has lost about 60 pounds since her last visit, but feels she has reached a plateau and is now planned for bariatric surgery. Now being treated with CPAP. PAST MEDICAL HISTORY Diagnosis Date Atrial fibrillation (HCC) CHADS score 0 Cardiomyopathy (HCC) 02/24/14 Family history of hypertrophic cardiomyopathy 01/18/2014 Impaired glucose tolerance 01/21/2011 Left bundle branch block Obesity Ventricular tachyarrhythmia (HCC) 02/2014 Rkqgh-Mksqalpqf-Byafv (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 Cardioverted with 150j under sedation DEFIBRILLATOR SURGERY 02/24/2014 ICD, redo WPW & atrial fib ablation EPS: DEFIB. SURGERY 05/16/2021 Exchange of a SamEnrico SQ-RX 1010 pulse generator with a No Paper Just Vapor PAST SURGICAL HISTORY OF 07/06/2014 WPW ablation PAST SURGICAL HISTORY OF 11/21/2019 MVr, myectomy, PVI, LAAC TYMPANOSTOMY LOCAL/TOPICAL ANESTHESIA Right SOCIAL HISTORY Social History Tobacco Use Smoking status: Never Smokeless tobacco: Never Vaping Use Vaping Use: Never used Substance Use Topics Alcohol use: No Drug use: No FAMILY HISTORY Problem Relation Age of Onset Diabetes Mother Hypertension Mother Thyroid Mother Coronary Artery Disease Mother CABG 2013 Lipids Father Heart Maternal Grandmother OR age 72 None Maternal Grandfather age 46-"suddenly" Alcohol/Drug Paternal Grandfather ETOH Diabetes Maternal Aunt Diabetes Maternal Uncle Diabetes Brother Heart Sister HOCM s/p ICD ALLERGIES: ALLERGIES Allergen Reactions Metformin Diarrhea MEDICATIONS: doxycycline (VIBRA-TABS) 100 mg tablet^Take 100 mg by mouth twice daily.^Disp: ^Rfl: cycloSPORINE (RESTASIS) 0.05 % ophthalmic emulsion^Use 1 Drop in both eyes twice daily.^Disp: 180 Each^Rfl: 3 CPAP/BIPAP/OTHER^New set: Settings 4 - 8 cm H2O, suitable mask per pt preference (nasal or pillow opt), chin strap, head gear, humidity, tubing, lifetime supplies. G47.33 QUINTON ^Disp: 1 Each^Rfl: 11 cyclobenzaprine (FLEXERIL) 10 mg tablet^Take 1 tablet by mouth three times daily as needed for muscle spasm.^Disp: 12 tablet^Rfl: 0 metoprolol succinate ER (TOPROL XL) 25 mg 24 hr tablet^Take 1.5 tablets by mouth twice daily with meals.^Disp: 60 tablet^Rfl: 5 apixaban (ELIQUIS) 5 mg tab(s)^Take 1 tablet by mouth twice daily.^Disp: 60 tablet^Rfl: 3 sotalol (BETAPACE) 120 mg tablet^Take 1 tablet by mouth twice daily.^Disp: 180 tablet^Rfl: 1 semaglutide, weight loss, (WEGOVY) 2.4 mg/0.75 mL pen injector^Inject 0.75 mL subcutaneously one time a week.^Disp: 9 mL^Rfl: 3 aspirin 81 mg chewable tablet^Take 1 tablet by mouth once daily.^Disp: 90 tablet^Rfl: 1 PHYSICAL EXAMINATION: BP 106/64 Pulse 79 Resp 12 Ht 172.7 cm (5' 8") Wt 118.8 kg (262 lb) LMP 01/06/2012 [id number]% BMI 39.84 kg/m General: Well appearing, in no acute distress. Skin: No clubbing, no cyanosis. Eyes: Extra ocular movements intact Oropharynx: Teeth in good repair. Neck: No jugular venous distention, no carotid bruits, carotids have a normal upstroke, no palpablethyromegaly. Lungs: Clear to auscultation bilaterally, no wheezing or rhonchi. Heart: Regular rhythm, PMI not displaced, S1, S2 normal, no S3, no S4, no heaves, no rub and no murmur. Abdomen: Soft, nontender, bowel sounds normal, no palpable organomegaly, no bruits. Extremities: No peripheral edema . Grade 2/4 distal pulses bilaterally. Neuro: Oriented to person, place and time, alert, cooperative, gait coordinated. CARDIOVASCULAR MEDICINE TESTING: Electrocardiogram: SR, LBBB Echo from 10/22/2022 reviewed. IMPRESSION: Ms. Tom is a 42 year old woman with HCM (with mid-cavitary obstruction) and PAF, that underwent successful myectomy with mitral valve repair with papillary muscle reorientation in 2019. Continued good surgical results. Also with PAF, on Sotalol per EP. Clinically well. PLAN AND RECOMMENDATIONS: She is at acceptable risk to proceed with Bariatric surgery. Maintain present regimen in post-operative period. Can hold DOAC for 2-3 days prior to surgery. CONTACT INFORMATION: Jayjay Ortiz M.D. [facility] Department of Cardiovascular Medicine [facility] [place] [facility] Desk [id number] [id number] Office - [phone] extension [phone] Office Appointments: [phone] -[phone] extension [phone] documented in this encounterLima City Hospital02-15-2023 Instructions* Patient Instructions* Tri Parker MD - 11/19/2022 10:36 AM EST -preservative-free artificial tears four times a day both eyes -restasis twice a day both eyes -doxycyline 50mg daily documented in this encounterLima [facility] Hospital02-15-2023 History of Present illness Narrative* Tri Parker MD - 11/19/2022 10:17 AM EST Assessment and Plan 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 Irregular astigmatism of both eyes -patient with long history of contact lens wear (since ~age 18) with varying habits (previously diagnosed with overwear) -also element of rosacea contributing (on doxycycline) -recurrent monthly flare-ups with redness and irritation that responds well to steroid drops Plan: -preservative-free artificial tears four times a day both eyes -restasis twice a day both eyes -doxycyline 50mg daily - precautions reviewed -3-month dissolvable collagen plug size 0.3 placed lower puncta both eyes 11/19/22 -no contact lens wear -follow-up 1-2 months / sooner as needed. Dr. Dimas for routine/glasses once surface stabilized -will control inflammation first (may need tacrolimus vs serum tears). Then will work on vision (may need superficial keratectomy vs scleral lenses) I have confirmed and edited as necessary the relevant ophthalmic history, ROS, and the neuro exam findings as obtained by others. I have seen and examined Chavo Tom. I have discussed the case and the management of this patient's care with the Resident/Fellow, if applicable. I also have reviewed and agree with the assessment and plan as stated above and agree withall of its relevant components. Tri Parker MD November 19, 2022 10:17 AM documented in this encounterLima City Hospital02-14-2023 History of Present illness Narrative* Juan Antonio Bower - 11/18/2022 1:11 PM EST CMN RECEIVED BY [employer] [facility] VIA FAX, COMPLETED, AND PLACED IN PROVIDER MAILBOX FOR SIGNATURE Juan Antonio Bower, Administration Assistance 11/18/22 [email or web address] COMPANY SENDING CMN: Andrey SIGNED AND DATED CMN, FAXED TO DME & CONFIRMATION PAGE RECEIVED: 11/19/22 documented in this encounterLima City Hospital02-10-2023 Miscellaneous Notes* Telephone Encounter - Heather Moulton RN - 11/14/2022 12:42 PM EST Contacted [employer]. PA submitted. PA approved 10/15/2022-11/14/2023 * Telephone Encounter - [facility] - 11/10/2022 3:52 PM EST Images from the original note were not included. 10/10/2022 Need Prior auth - Medication documented in this encounterLima City Hospital02-01-2023 History of Present illness Narrative* Gwendolyn Alonso Ma - 11/05/2022 9:36 AM EST Order for New PAP set up faxed to [facility]; Andrey Stevens/Cyn # [phone]------FAX# [phone] Required documentation sent; Rx for PAP device, sleep studies, insurance, patient demographics, OV notes prior to sleep studies and current OV notes. Confirmed and filed. Gwendolyn Alonso Ma * Amy Alvarado APRN.REGISTERED DIET TECHNICIAN - 11/05/2022 8:45 AM EST Images from the original note were not included. [facility] New Patient Evaluation PATIENT NAME: Chavo Tom CONSULTING PROVIDER: Siobhan Sellers [address] [facility] [id number] REASON FOR CONSULT: Siobhan Sellers sends the patient for an opinion about QUINTON and treatment. My findings and recommendations will be transmitted electronically via shared medical record to the consulting provider. HPI: Chavo Tom is a 42 year old female with Past medical history: Atrial fibrillation, Hypertrophic obstructive cardiomyopathy, Hlkwd-Eymbuvacx-Toacz syndrome, Ventricular tachyarrhythmia, Implantable cardioverter-defibrillator in place, Congestive heart failure, and obesity. Her sleep-related history includes waking up with dry mouth or sore throat, multiple awakenings from sleep, and fatigue. She recently completed a PSG split night study and presents to review results. She is planning on the surgical option for weight loss and would need set up with CPAP to move forward with this goal. SLEEP APNEA Sleep apnea type : QUINTON, Most Recent Apnea-Hypopnea Index (AHI): 10.3 Treatment : PAP therapy DME: will set up with Andrey PAP History: None SLEEP-WAKE SCHEDULE Bedtime: 930 PM. She does not have a hard time falling asleep. Latency: 15-20 min Wake time: 6 AM, with an alarm. Nocturnal wakings: 2-3 times for BRB On weekends, she maintains the same sleep schedule. Average total sleep time (in a 24 hour period): 6.5-7 hours. She does not take naps. Preferred sleep position: side Breathing disturbances and other behaviors during sleep: moving around a lot. WAKE-RELATED DETAILS She works but is not a shift worker. (But has picked up night shifts in the past) She does not have difficulty with memory or concentration. She denies falling asleep or dozing off when driving. She does drink 1 at most caffeinated beverages per day. She has lost 65 pounds since 1 years. There is no history of a viral illness or significant head injury prior to the start of daytime sleepiness. SLEEP DISORDER SYMPTOMS She does not report having an urge to move the legs in the evening (when resting) that is accompanied or caused by uncomfortable and/or unpleasant sensations in the legs. She has not been told that she has leg kicking during sleep. She denies any history of parasomnias. 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 Cardioverted with 150j under sedation DEFIBRILLATOR SURGERY 02/24/2014 ICD, redo WPW & atrial fib ablation EPS: DEFIB. SURGERY 05/16/2021 Exchange of a SamEnrico SQ-RX 1010 pulse generator with a [place] PAST SURGICAL HISTORY OF 07/06/2014 WPW ablation PAST SURGICAL HISTORY OF 11/21/2019 MVr, myectomy, PVI, LAAC TYMPANOSTOMY LOCAL/TOPICAL ANESTHESIA Right ACTIVE PROBLEM LIST Impaired Glucose Tolerance Vaginal High Risk Hpv Dna Test Positive Palpitation Hocm (Hypertrophic Obstructive Cardiomyopathy) (Hcc) Body Mass Index 40.0-44.9, Adult (Hcc) Atrial Fibrillation (Hcc) Ventricular Tachyarrhythmia Enzqn-Zuvwfocfq-Ywate (Wpw) Syndrome Thyroid Nodule, Cold Icd (Implantable Cardioverter-Defibrillator) in Place Pre-Op Testing Discharge Planning Issues Clinical summary Acute On Chronic Diastolic (Congestive) Heart Failure (Hcc) Summary Dilated Cardiomyopathy (Hcc) Left Bundle Branch Block Paroxysmal Atrial Fibrillation (Hcc) Class 3 Severe Obesity Due to Excess Calories Without Serious Comorbidity With Body Mass Index (Bmi) of 45.0 to 49.9 in Adult (Hcc) Patient Under Care of Multiple Providers Metabolic Syndrome Pre-Diabetes Vitamin D Deficiency, Unspecified Allergies As of Date: 11/05/2022 Allergen Noted Reaction METFORMIN 01/23/2022 Diarrhea Fully Assessed 11/05/2022 CURRENT MEDICATIONS: cyclobenzaprine (FLEXERIL) 10 mg tablet^Take 1 tablet by mouth three times daily as needed for muscle spasm.^Disp: 12 tablet^Rfl: 0 metoprolol succinate ER (TOPROL XL) 25 mg 24 hr tablet^Take 1.5 tablets by mouth twice daily with meals.^Disp: 60 tablet^Rfl: 5 apixaban (ELIQUIS) 5 mg tab(s)^Take 1 tablet by mouth twice daily.^Disp: 60 tablet^Rfl: 3 sotalol (BETAPACE) 120 mg tablet^Take 1 tablet by mouth twice daily.^Disp: 180 tablet^Rfl: 1 semaglutide, weight loss, (WEGOVY) 2.4 mg/0.75 mL pen injector^Inject 0.75 mL subcutaneously one time a week.^Disp: 9 mL^Rfl: 3 aspirin 81 mg chewable tablet^Take 1 tablet by mouth once daily.^Disp: 90 tablet^Rfl: 1 CPAP/BIPAP/OTHER^New set: Settings 4 - 8 cm H2O, suitable mask per pt preference (nasal or pillow opt), chin strap, head gear, humidity, tubing, lifetime supplies. G47.33 QUINTON ^Disp: 1 Each^Rfl: 11 REVIEW OF SYSTEMS SLEEP RELATED ROS GENERAL: See HPI RESPIRATORY: negative dyspnea CARDIOVASCULAR: negative palpitations and chest pain GI: negative GERD : negative nocturia SKIN: negative mask irritation PSYCH: negative depression and suicidal thoughts ENDOCRINE: negative thyroid problems NEURO: negative memory problems All other systems reviewed and are negative. SOCIAL HISTORY Social History Tobacco Use Smoking status: Never Smokeless tobacco: Never Vaping Use Vaping Use: Never used Substance Use Topics Alcohol use: No Drug use: No FAMILY HISTORY FAMILY HISTORY Problem Relation Age of Onset Diabetes Mother Hypertension Mother Thyroid Mother Coronary Artery Disease Mother CABG 2013 Lipids Father Heart Maternal Grandmother OR age 72 None Maternal Grandfather age 46-"suddenly" Alcohol/Drug Paternal Grandfather ETOH Diabetes Maternal Aunt Diabetes Maternal Uncle Diabetes Brother Heart Sister HOCM s/p ICD There is a family history of: Sleep apnea. Relative: mother PHYSICAL EXAMINATION: Vital Signs: BP 105/71 (BP Site: Left Arm, BP Position: Sitting, BP Cuff Size: Regular Adult) Pulse 74 Ht 172.7 cm (5' 8") Wt 123.8 kg (273 lb) LMP 01/06/2012 SpO2 100% BMI 41.51 kg/m PHYSICAL EXAM: General appearance: NAD, attire appropriate per season Mental status: A & O X3 Speech: Clear & Coherent Constitutional: Overweight Skin: W/D/I on exposed skin Musculoskeletal/ Extremities: Neg BLE edema, sensation intact Neuro: Gait stable, hearing intact to conversation IMPRESSION/PLAN: G47.33 QUINTON (obstructive sleep apnea) (primary encounter diagnosis) I48.0 Paroxysmal atrial fibrillation (HCC) I50.33 Acute on chronic diastolic (congestive) heart failure (HCC) Chavo Tom is a 42 year old female with Past medical history: Atrial fibrillation, Hypertrophic obstructive cardiomyopathy, Wzoid-Rqtenynck-Ojbmf syndrome, Ventricular tachyarrhythmia, Implantable cardioverter-defibrillator in place, Congestive heart failure, and obesity. Her sleep-related history includes waking up with dry mouth or sore throat, multiple awakenings from sleep, and fatigue. She recently completed a PSG split night study and presents to review results. She is planning on the surgical option for weight loss and would need set up with CPAP to move forward with this goal. Reviewed sleep study results & discussed with patient: the physiology of OSAS, medical conditions associated with OSAS (DM, HTN, CAD, Depression, Stroke, Headache, OR) and treatment of beginning CPAP treatment. - Will start Auto CPAP 4-8 cmH2O with a Nasal pillows mask. - I will have a prescription sent to a [email or web address] ([employer] equipment) company - [employer] who will be calling you in the next 1-2 weeks or so. Please call them directly or us if you do not hear from them in this time frame. - You should be eligible for new supplies approximately every 3-6 months, depending on your insurance coverage. - If your mask doesn't fit well, call the [email or web address] company before 30 days are up to get a new mask without an additional charge. - Insurance requires regular usage and periodic office follow ups for PAP therapy, to continue to cover supplies. INSURANCE REQUIREMENTS: - Your insurance requires a yqaj-fq-ztuw follow up visit within a 31-90 day period after starting CPAP. - Your insurance requires compliance with CPAP, which is at least 4 hours per night for 70% of the time. This must be done over a 30 day period and must occur within the initial 31-90 day period after starting CPAP. - Your insurance also requires at least yearly follow ups to continue to pay for CPAP supplies. Follow up in 3 month(s). Amy Alvarado APRN.CNP I spent a total of 45 minutes on the date of the service which included preparing to see the patient, rhdp-tf-yfwn patient care, completing clinical documentation, obtaining and/or reviewing separately obtained history, performing a medically appropriate examination, counseling and educating the pat ient/family/caregiver, ordering medications, tests, or procedures, and communicating results to thepatient/family/caregiver. documented in this encounterL[facility]02-[facility]23 Instructions* Patient Instructions* Amy Alvarado APRN.CNP - 11/05/2022 9:02 AM EST PLAN: - Will start Auto CPAP 4-8 cmH2O with a Nasal pillows mask. - I will have a prescription sent to a [email or web address] ([employer] medical equipment) company - [employer] who will be calling you in the next 1-2 weeks or so. Please call them directly or us if you do not hear from them in this time frame. - You should be eligible for new supplies approximately every 3-6 months, depending on your insurance coverage. - If your mask doesn't fit well, call the [email or web address] company before 30 days are up to get a new mask without an additional charge. - Insurance requires regular usage and periodic office follow ups for PAP therapy, to continue to cover supplies. INSURANCE REQUIREMENTS: - Your insurance requires a qkkv-ys-sjsi follow up visit within a 31-90 day period after starting CPAP. - Your insurance requires compliance with CPAP, which is at least 4 hours per night for 70% of the time. This must be done over a 30 day period and must occur within the initial 31-90 day period after starting CPAP. - Your insurance also requires at least yearly follow ups to continue to pay for CPAP supplies. About Your PAP Therapy Continuous Positive Airway Pressure/Bilevel Therapy You have been prescribed Positive Airway Pressure (PAP) therapy to treat sleep apnea. The most common type of sleep apnea is obstructive sleep apnea (QUINTON), a condition in which the upper airway collapses during sleep. This obstruction keeps air from getting into your lungs. The prescribed PAP machine (CPAP or Bilevel or ASV) will smoothly blow air into your airway to prevent it from closing. The machine will use a mask to deliver the air through your nose and/or mouth. These devices are available in various sizes and styles. It will take some time for you to get used to the new equipment and it may take a while for you to begin to feel the benefits of PAP therapy. Please be patient. If you are having problems adjusting to your machine, please contact us for help. Beginning your PAP Therapy Assembly: Place your PAP machine on a level surface near your bed. To prevent injury, do not place the machine higher than your head. Keep the machine at least 12 inches away from anything that may block the vents. Plug the machine into a properly grounded electrical outlet. It is better to avoid using an extension cord. If necessary, use a heavy-duty one. If you are NOT using a humidifier with you PAP equipment: Attach one end of your 6-foot tubing to the PAP unit outlet and the other end to your mask. (If your mask does not have a built-in exhalation port, a special exhalation valve should be used between the mask and the 6-foot tubing.) Attach the headgear to your mask. If you are using a humidifier with your PAP equipment: Fill the humidifier with DISTILLED water to the maximum fill line. Attach the humidifier to the PAP unit s outlet as instructed by the respiratory therapist with [employer]. Attach one end of your 6-foot tubing to the humidifier outlet and the other end to your mask. (If your mask does not have a built-in exhalation port, a special exhalation valve should be used between the mask and the 6-foot tubing.) If you have been prescribed oxygen to be used with the PAP machine, you will be instructed on how to attach your oxygen tubing. Always turn off the oxygen tank before turning off your PAP machine. Getting Started: Wash your face and apply the mask and headgear as instructed by the seating and mobility technologist or respiratory therapist. The mask should fit snugly to prevent air leaks, but not so tight as to cause skin irritation or discomfort. Turn the PAP power switch to the ON position. You should feel air blowing through the mask. Breathe normally and adjust the mask gently if you feel an air leak. If there are no leaks, activate the ramp feature on your PAP machine. The ramp allows a lower pressure to be delivered for a designated period of time (usually 5 to 45 minutes) to allow you to relax and fall asleep more easily. The pressure will then gradually increase to the prescribed pressure that controls your apnea. Remember to turn OFF your PAP unit when it is not in use. Care and Maintenance Headgear should be washed as needed. Daily inspection and weekly washings are recommended. Do not disassemble the straps. Machine wash in warm water, making sure to attach Velcro hooks and tabs before washing. Line dry or machine dry on a low setting. Masks should be washed every other day. Daily inspection is recommended. Leave the mask and tubing attached. Gently wash the mask with a soft cloth using warm water and mild detergent, concentrating on the mask cushion flaps. DO NOT use alcohol or bleach. Rinse thoroughly and air dry. Tubing should be washed every other day. Daily inspection is recommended. Wash in warm water and mild detergent and rinse thoroughly. Hook the tubing to the machine and blow until dry. Humidifier should be washed daily and filled with DISTILLED water before use. Wash with warm water and mild detergent. Disinfect weekly by soaking with a solution of 1 part white vinegar and 3 partswater for 30 minutes. Rinse thoroughly and air dry. Disposable filters should be replaced once a month. Wash reusable foam filters with warm water and mild detergent at least once a month. Rinse thoroughly and dry with paper towels. Avoid cupola tender helper that contain fragrance or conditioners, as these will leave a residue. NEVER iron any soft goods. Troubleshooting If the machine fails to turn on: Make sure that the PAP machine is plugged into a grounded outlet. Make sure that the ON/OFF switch is in the ON position. Make sure that the wall outlet has power. If there is no pressure coming from your machine: Make sure that the inlet filter is clean and unblocked. Make sure that the cooling fan is unblocked and that air is flowing freely. Make sure that all tubing is securely connected. If your PAP machine still fails to operate, please call [phone] or your home care company for assistance. What You Should Know About Insurance There are many different insurance policies and coverage for PAP equipment will vary. Find out whatyour coverage provides and what your responsibilities are as a consumer. PAP therapy equipment is considered Durable Medical Equipment (DME). Here are a few questions to ask your insurance provider. What benefits do I have for DME? Do I have a deductible and/or co pay for DME? Is there a repair or replacement plan for durable medical equipment? How often can I receive a replacement mask, tubing, headgear and filters? Do I have to demonstrate that I am using my PAP device? How do I do that? Important Information It is very important to keep your PAP equipment and supplies clean. The life of the supplies depends on the care they receive. Under normal circumstances, expect the mask and headgear to last 9-12 months. Refer to the nutrition aides teacher s manual for more information. Important Safety Reminders Keep equipment free from obstruction. Use your PAP equipment as directed. DO NOT try to adjust your pressure setting. DO NOT block the exhalation port or valve. Keep filters clean to prevent overheating. If a humidifier is being used, place it at a level lower than your head. If using a heated humidifier, allow unit to cool before cleaning or refilling. Follow safety guidelines regarding oxygen equipment.DO NOT operate multiple electrical devices fromone outlet. If you have a medical emergency, contact the Emergency Medical Services. Below are the links to follow to watch a PAP education video: http://[email or web address]_[email or web address]/home_respiratory_therapy.aspx http://www.youtube.com/watch?v=peJ_epDGzEw http://my.[email or web address]/neurological_institute/kwfbl-ouwiftcqb-ldidox/jojo livent-services/pap-therapy.aspx PAP Supply Guidelines Below are the guidelines for reordering your supplies. You will be responsible for your deductible,co-payments, and out of pocket expenses. Item Medicare & Commercial Insurance Nasal Mask (no headgear) 1 every 3 months Nasal Mask Cushion 1 every month Full Face Mask (no headgear) 1 every 3 months Full Face Mask Cushion 1 every month Nasal Pillows 2 every month Headgear 1 every 6 months Chin Strap 1 every 6 months Tubing 1 every 3 months Filters: Reusable 1 every 6 months Filters: Disposable 2 every month Humidifier Chamber(disposable) 1 every 6 months - Any appointments can be scheduled through the central scheduling system for the [facility] at [phone]. - If you are a [facility] patient, call [phone] for questions - Any other locations you have seen me at, please call [phone] opt [phone] for questions. - May use Message My Doc through My Chart for questions. - [facility] website: [email or web address] documented in this encounterLima [facility]02-01-2023 Nurse Note* Gwendolyn Alonso Ma - 11/05/2022 8:36 AM EST Patient presents with: New Patient Evaluation: Referred by Dr Sellers of the BMI clinic for possible QUINTON. Here to review PSG slpit done 10/21/2022 and discuss treatment options. documented in this encounterL[facility]01-18-2023 History of Present illness Narrative* Dillan Owen APRN.GENIE - 10/22/2022 9:39 AM EST Images from the original note were not included. [facility] Department of Cardiovascular Medicine SECTION OF CARDIOVASCULAR IMAGING OUTPATIENT VISIT DATE October 22, 2022 OUTPATIENT VISIT TYPE ESTABLISHED PRIMARY CARE PHYSICIAN: Kylah Palma [address] [place] [address] REFERRING PHYSICIAN: No referring provider defined for this encounter. CHIEF COMPLAINT: Follow up HISTORY OF PRESENT ILLNESS: Ms. Tom is a 42 year old female who presents today for follow-up visit. Since her last visit, she states that she has been doing well from a cardiac standpoint. She can tell when she has afib. She will feel palpitations usually lasting for a few seconds to minutes. She calms herself down and the afib goes away on its own. She is also following with bariatric surgery and needs cardiac clearance for bariatric surgery. She denies chest pain, shortness of breath, edema. PAST CARDIAC HISTORY: She has been seen in the past for hypertrophic obstructive cardiomyopathy with cavitary obstruction, s/p septal myectomy with mitral valve repair and papillary muscle reorientation with pulmonary vein isolation and left atrial appendage clip 11/21/2019, WPW ablation and atrial ablation (2013), paroxysmal atrial fibrillation, subcutaneous ICD, and obesity (BMI~41). She was last seen on 01/27/[address] Ortiz. PAST MEDICAL HISTORY Diagnosis Date Atrial fibrillation (HCC) CHADS score 0 Cardiomyopathy (HCC) 02/24/14 Family history of hypertrophic cardiomyopathy 01/18/2014 Impaired glucose tolerance 01/21/2011 Left bundle branch block Obesity Ventricular tachyarrhythmia 02/2014 Bryvy-Ufieymgod-Zdzpk (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 Cardioverted with 150j under sedation DEFIBRILLATOR SURGERY 02/24/2014 ICD, redo WPW & atrial fib ablation EPS: DEFIB. SURGERY 05/16/2021 Exchange of a [employer] SQ-RX 1010 pulse generator with a No Paper Just Vapor PAST SURGICAL HISTORY OF 07/06/2014 WPW ablation PAST SURGICAL HISTORY OF 11/21/2019 MVr, myectomy, PVI, LAAC TYMPANOSTOMY LOCAL/TOPICAL ANESTHESIA Right SOCIAL HISTORY Social History Tobacco Use Smoking status: Never Smokeless tobacco: Never Vaping Use Vaping Use: Never used Substance Use Topics Alcohol use: No Drug use: No FAMILY HISTORY Problem Relation Age of Onset Diabetes Mother Hypertension Mother Thyroid Mother Coronary Artery Disease Mother CABG 2013 Lipids Father Heart Maternal Grandmother OR age 72 None Maternal Grandfather age 46-"suddenly" Alcohol/Drug Paternal Grandfather ETOH Diabetes Maternal Aunt Diabetes Maternal Uncle Diabetes Brother Heart Sister HOCM s/p ICD ALLERGIES: ALLERGIES Allergen Reactions Metformin Diarrhea MEDICATIONS: cyclobenzaprine (FLEXERIL) 10 mg tablet^Take 1 tablet by mouth three times daily as needed for muscle spasm.^Disp: 12 tablet^Rfl: 0 metoprolol succinate ER (TOPROL XL) 25 mg 24 hr tablet^Take 1.5 tablets by mouth twice daily with meals.^Disp: 60 tablet^Rfl: 5 apixaban (ELIQUIS) 5 mg tab(s)^Take 1 tablet by mouth twice daily.^Disp: 60 tablet^Rfl: 3 sotalol (BETAPACE) 120 mg tablet^Take 1 tablet by mouth twice daily.^Disp: 180 tablet^Rfl: 1 semaglutide, weight loss, (WEGOVY) 2.4 mg/0.75 mL pen injector^Inject 0.75 mL subcutaneously one time a week.^Disp: 9 mL^Rfl: 3 aspirin 81 mg chewable tablet^Take 1 tablet by mouth once daily.^Disp: 90 tablet^Rfl: 1 REVIEW OF SYSTEMS: Positive in Bold GENERAL: Negative for: Weight loss or gain, Fever or Chills, Weakness and Sleep difficulties. HEENT: Negative for: Headache, Impaired Vision, Glasses, Hearing Impairment, Ringing in Ears, Nosebleeds, Poor Dental Care, Bleeding Gums and Dentures. NECK: Negative for: Swelling, Pain, Stiffness GASTROINTESTINAL: Negative for: Trouble swallowing, Heartburn, Change in bowel habits, Blood in stool, Dark black stools MUSCULOSKELETAL: Negtive for: Muscle or joint pain, stiffness, Joint swelling NEUROLOGIC/PSYCHIATRIC: Negative for: Weakness, Paralysis, Numbness, Tingling, Tremor, Nervousness or anxiety, Depressed mood, Memory loss SKIN: Negative for: Rash, Itching HEMATOLOGICAL/LYMPHATIC: Negative for: Easy bruising, Easy bleeding ENDOCRINE: Negative for: Heat or Cold Intolerance, Excessive Sweating, Frequent Urination, FrequentThirst PHYSICAL EXAMINATION: BP 123/80 Pulse 73 Resp 16 Wt 123.8 kg (273 lb) LMP 01/06/2012 SpO2 97% BMI 41.51 kg/m General: In no acute distress. Neck: no jugular venous distention, Lungs: Clear to auscultation bilaterally, no wheezing or rhonchi. Heart: Regular rhythm, S1, S2 normal Extremities: No peripheral edema Neuro: Oriented to person, place and time, alert, cooperative, gait coordinated. CARDIOVASCULAR MEDICINE TESTING: Last EKG Result Conclusion ECG COMPLETE Collected: 10/22/2022 10:24 AM (Preliminary result) Impression: NORMAL SINUS RHYTHM COMPLETE LEFT BUNDLE BRANCH BLOCK ABNORMAL ECG Device check 10/22/22: SUBQ ICD EVALUATION: RHYTHM: SR BATTERY STATUS: Remaining Battery Life to SYDNEY: 85% ALERT: Tone demonstrated and patient aware need for follow up. LEAD ELECTRODE: ok @ 70 ohms SMART PASS: ON IMPLANT SITE/ SYMPTOMS: The incision and pocket are pain-free, well healed and without signs of erosion or infection. ARRHYTHMIAS: There have not been any ventricular detections or therapy delivered since the last evaluation. No new AF detection since the last remote evaluation FOLLOW UP: Will continue with remote transmissions every 3 months and yearly in- clinic visits. Echo 10/22/22: Pending IMPRESSION: Ms. Tom is a 42 year old female with a past medical history of hypertrophic obstructive cardiomyopathy with cavitary obstruction, s/p septal myectomy with mitral valve repair and papillary muscle reorientation with pulmonary vein isolation and left atrial appendage clip 11/21/2019, WPW ablation and atrial ablation (2013), paroxysmal atrial fibrillation, subcutaneous ICD, and obesity (BMI~41). Currently feels well from a cardiac standpoint. HR and BP well controlled. Device check today without any new arrhythmias. She does state that she can feel when she is in afib which usually lasts for seconds to minutes. Prior remote device check showing 4 days of measured afib with a burden of 0%. Shefollows with Dr Recinos for this. Awaiting results of echo from today. She is also seeking cardiac clearance for bariatric surgery which is not scheduled yet. She will need to follow up with Dr Ortiz for cardiac clearance. PLAN AND RECOMMENDATIONS: -Await results of echo. Will MyChart with results -Continue current medication regimen -Follow up with Dr Ortiz for cardiac clearance prior to bariatric surgery I spent 30 minutes in the visit, with more than 50% of the total icqb-kh-ivaz time of the visit in counseling / coordination of care. Kishore Owen APRN.GENIE documented in this encounterL[facility]01-18-2023 Instructions* Patient Instructions* Jamaal Patterson, [place] - 10/22/2022 9:03 AM EST Nutrition Action Plan Please call [phone], option 5. Leave a message for the navigation team when you are finishedwith all clearances (nutrition, psychology, medical, surgeon) 1.Starting ~3 weeks after surgery take 2 Bariatric Fusion chewable complete bariatric vitamin chews, twice daily. 2. Protein goal: 89 grams protein/day 3. Fluid goal: 64oz per day water. (no calories, no caffeine, no carbonation, no alcohol) 4. Exercise goal: 150-250 minutes combination cardio/strength training/week 5. Practice mindful eating habits-protein first, take small portions, eat slowly, chew thoroughly, and separate fluid from food 6. Start the full liquid diet (2) weeks prior to surgery using 5 Atkins protein shakes per day, continue a minimum of 64 oz water per day during this time. No solid food. May have sugar free popsicleand sugar free jello -During the 2 week liquid diet before surgery include a daily Super B-Complex vitamin 7. Advance diet as tolerated after surgery. Use the Your Guide to Surgery for guidance and meal plans Preop weight goal: 267 lbs Follow Up as needed and 2 weeks before surgery documented in this encounterL[facility]01-18-[facility]23 History of Present illness Narrative* Jamaal Patterson RD - 10/22/2022 8:21 AM EST Nutritional Therapy Re-Assessment Nutrition Diagnosis: Overweight/obesity, related to, food/nutrition - related knowledge deficit, asevidenced by BMI above normative standard for age and gender RECOMMENDED MALNUTRITION DIAGNOSIS: NO MALNUTRITION IDENTIFIED NUTRITION CARE PLAN: Nutrition Intervention 10/22/2022: Please call [phone], option 5. Leave a message for the navigation team when you are finishedwith all clearances (nutrition, psychology, medical, surgeon) 1.Starting ~3 weeks after surgery take 2 Bariatric Fusion chewable complete bariatric vitamin chews, twice daily. 2. Protein goal: 89 grams protein/day 3. Fluid goal: 64oz per day water. (no calories, no caffeine, no carbonation, no alcohol) 4. Exercise goal: 150-250 minutes combination cardio/strength training/week 5. Practice mindful eating habits-protein first, take small portions, eat slowly, chew thoroughly, and separate fluid from food 6. Start the full liquid diet (2) weeks prior to surgery using 5 Atkins protein shakes per day, continue a minimum of 64 oz water per day during this time. No solid food. May have sugar free popsicleand sugar free jello -During the 2 week liquid diet before surgery include a daily Super B-Complex vitamin 7. Advance diet as tolerated after surgery. Use the Your Guide to Surgery for guidance and meal plans Preop weight goal: 267 lbs Nutrition Monitoring & Evaluation: 1-2 pound per week weight loss Need for Follow up: as needed and 2 weeks before surgery PROGRESS: Interval History: Patient seen today for a follow up nutrition appointment. She is currently preparing to undergo bariatric surgery, interested in RYGB with Dr. Mercer. Since last assessment, weight has decreased by 1 lbs. Most recent lab results reveal low vitamin D. Diet recall reveals consistentmeal pattern with regular meals and snacks. Patient uses a protein shake in place of meals and healthy plate model as recommended. Protein intake is inadequate (~71% of recommendations) with moderateprotein sources at most meals. Fluid intake is adequate with water as primary beverage choice. Patient meets recommended 150+ minutes physical activity with a combination of cardio and strength training. She plans on taking bariatric Fusion Chewable MVIs post operatively. Patient confirms to eat slowly and agrees to separate fluids from foods at meal times. After session today, patient able to verbalize protein/fluid/exercise goals, recommendations for vitamin/minerals, use of protein shakes for meal replacement and for 2 week full liquid diet phase. Also able to demonstrate post op diet advancement/portion control using food models. Anticipate post op compliance. Patient meets the National Institutes of Health guidelines for weight loss surgery and has [employer] insurance and therefore may be required to complete 0 months of Nutrition Intervention for clearance for surgery.This is her 2nd nutrition visit. The patient has been thoroughly evaluated and educated on good dietary practices and is capable of following these guidelines pre- and post surgically. From nutrition standpoint, the patient is cleared for weight loss surgery. If the patient desires, she may continue to follow up with the dietitianon a monthly basis until all surgical requirements are met. Nutrition Intervention Carmen Leigh 09/10/22 1. Read Nutritional Guidelines Section of Your Guide to Surgery by next session [email or web address] n MET 2. Do not skip meals. MET 3. Use protein shake 1x per day to replace any skipped meals or for breakfast MET Aim for shakes ~200 calories, ~20-30 grams of protein, <5 grams of total sugar. Here are a few examples of approved options for the 2 week pre-op liquid diet: Slim Fast Advanced Nutrition, [place] Breakfast Essentials "Light Start" mixed with fat free or 1% milk, Atkins, Boost Glucose Control,Owyn 4. Use the Healthy Plate Method of portion control for lunch and dinner MET 4 oz lean meat (fish, chicken, pork tenderloin, turkey, seafood, eggs/cheese) 1/2 plate non starchy vegetables (salad, greens, cabbage, spinach, brussels sprouts, broccoli, carrots, celery, peppers, green beans, cauliflower) 1 cup starch/starchy vegetables (corn, peas, beans, winter squash, sweet potato, brown rice, whole grain pasta, whole grain bread products, quinoa) 5. Physical activity: Aim for 150 minutes of physical activity per week. Include 10-20 minutes of strength/resistance exercise 2-3x/week. MET 6. Drink 64 ounces per day water. Fluids should follow these guidelines: No carbonation, no caffeine, no calories, no alcohol. MET 7. Start to explore post surgery bariatric vitamins/minerals:MET (2) children's chewable Multivitamin complete (morning) OR (2) adult Centrum Chewable complete multivitamin, Iron supplement 18mg (morning), Vit B12 500 mcg sublingual pill or liquid (morning), and calcium citrate w/Vit D 600 mg at lunch and 600 mg at dinner. Additional 2000 IU Vit D3 daily, B complex with 75-100 mg Thiamine *It is ok to take a combination bariatric vitamin to limit pill volume. Here are a few options to consider: - Bariatric Fusion: 4 Complete Multivitamin chewables per day (2 in the AM, 2 in the PM) www.bariatricfusion.[employer] - [employer]: 1 Bariatric Multivitamin (capsule or chewable) and 4861-7192 mg Calcium Citrate per day www.Retty - Bariatric Choice: 1 Bariatric Multivitamin capsule and 4779-2095 mg Calcium Citrate per day OR 4 Complete Multivitamin chewables per day www.bariatricchoice.com - Bariatric Advantage: 2 Multivitamin chewables and 3 Calcium Citrate chewables per day www.bariatricadvantage.com - Celebrate: 2 Multivitamin (chewables) OR 3 Multivitamin (capsules) PLUS 3 Calcium Citrate soft chews per day AND Iron (chewable, capsule, or soft chew for a total of 45-60 mg per day) www.[employer]ad[employer] - Bariatric Pal: 1 Bariatric Multivitamin capsule and 5888-6942 mg Calcium Citrate per day www.Thefuture.fm.bariatricpal.com/collections/bariatric-vitamins Take multivitamin with iron 2 hours apart from calcium citrate, and take each dose of calcium 4 hours apart from each other Pre-op goal weight: 267 pounds IN PROGRESS Protein needs: 89 gm per day IN PROGRESS Actions to implement interventions: Diet History: Breakfast - Atkins protein shake (15 gm pro) Snack - none Lunch - salad with 3 oz chicken (21 gm pro), tomatoes,cheese, and vinaigrette Snack - none Dinner - 3 oz chicken/fish (21 gm pro) and vegetables, sometimes potatoes Snack - none OR pickles OR string cheese (6 gm pro) Beverages - 64+ oz water Alcohol - none Vitamins/Supplements - vitamin D OTC Activity: Activities of Daily Living: Active 75% of the day. 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 Resting Metabolic Rate: 1955 Malnutrition Screening Significant unintentional weight loss? No Eating less than 75% of usual intake for more than 2 weeks? No Potential Signs of Inflammation: no identifiable sources Education Materials Provided: None this visit READINESS TO LEARN Cognitive ability: Alert and oriented Motivation to learn: Eager Family support: Unable to assess - Family not present Instruction provided to: Patient Patient learns best by: Multiple Methods Factors affecting learning: None Physical limitations affecting learning: None Likelihood of Adherence: High Referred/Supervised by: Self/Chris COLEY Billing Type: Re-assess/15 min 1 unit SIGNATURE: Jamaal Patterson RD PATIENT NAME: Chavo Tom DATE: October 22, 2022 TIME: 9:02 AM documented [facility] History of Present illness Narrative* Yasmin Frausto - 10/22/2022 5:05 AM EST Sleep Study Check-In Documentation Date: October 22, 2022 Name: Chavo Tom Patient was accompanied by Self. Location: [place] Latex allergy: No Tape allergy: No Current medications were reviewed with the patient:Yes Sleep aid taken by patient for the sleep study: [place] of sleep aid: Not Applicable Procedure was explained to the patient and all questions were answered. PAP treatment discussed and shown to patient: Yes If PAP used enter mask info: Mask Name: AirFit P10 Make: ResMed MaskTypeNasal Pillow Mask SizeMedium Chin Sharp Used No Knowledge Program (KP): KP was not completed in [facility] by patient and accepted Study type: Split Study-Polysomnogram with CPAP titration Adverse Event: No (If yes create a new abstract) SERS Event: No Comments: Patient was advised to follow up with their ordering provider regarding test results Yasmin Frausto (Siobhan Salazar [facility]) * Luisa Foy MD - 10/09/2022 8:36 AM EST October 09, 2022 Standing PSG Orders signed in the last 90 days None Future PSG Orders signed in the last 90 days Ordered Auth. provider POLYSOMNOGRAM (PSG) [[id number]] 09/18/22 Siobhan Sellers APRN.REGISTERED DIET TECHNICIAN Assoc. diagnoses: Class 3 obesity with alveolar hypoventilation, serious comorbidity, and body massindex (BMI) of 40.0 to 44.9 in adult ([facility]) [E66.2, Z68.41], Obstructive sleep apnea (adult) (pediatric) [G47.33], HOCM (hypertrophic obstructive cardiomyopathy) ([facility]) [I42.1], Atrial fibrillation, unspecified type ([facility]) [I48.91] Q: Indications - Select All That Apply: A: Obstructive sleep apnea Q: STOP-BANG conditions - Select All That Apply: A: BMI > 35 kg/m2 A2: SNORING that is loud or disruptive A3: TIREDNESS, fatigue or sleepiness during the day Q: Comorbidities: A: Moderate/Severe Cardiac disease Q: Specify Cardiac Disease: A: Other: see comments A2: Atrial Fibrillation/Flutter Q: Is the patient non-ambulatory or will they be accompanied by a caregiver?: A: No Q: Current use of supplemental oxygen during sleep period?: A: No Q: Add supplemental oxygen if needed per sleep lab policy?: A: Yes Q: Is this a repeat Sleep Study?: A: No All Prior Sleep Studies (past 365 days) Some values may be hidden. Unless noted otherwise, only the newest values recorded on each date aredisplayed. Sleep Studies POLYSOMNOGRAM (PSG) Future Expected: Expires: 09/18/23 BMI Readings from Last 2 Encounters: 10/02/22 : 41.72 kg/m 09/29/22 : 41.81 kg/m PAST MEDICAL HISTORY Diagnosis Date Atrial fibrillation ([facility]) CHADS score 0 Cardiomyopathy ([facility]) 02/24/14 Family history of hypertrophic cardiomyopathy 01/18/2014 Impaired glucose tolerance 01/21/2011 Left bundle branch block Obesity Ventricular tachyarrhythmia 02/2014 Cdyjo-Byuxdkvmi-Idlym (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 Indications for study: QUINTON suspected with comorbid medical or sleep disorders: Heart failure or other eowvenhj-fq-takfsp cardiac disease Significant, persistent cardiac arrhythmias Morbid obesity (BMI>40 kg/m2) Sleep study to be performed: Split Study-Polysomnogram with PAP titration Special instructions: Split night study if AHI > 5. Start with 5 cmH2O then titrate per protocol Target REM/supine sleep Add EtCO2 and Transcutaneous CO2 if available ICD in place, AFIB, WPW Syndrome, LBBB, VTACH, HOCM, CHF [facility] Staff Note: I have read the above protocol, edited as needed, and agree to the plan. Luisa Foy MD 10:28 AM, 10/09/2022 * Stephie Polk - 10/08/2022 3:02 PM EST October 08, 2022 An order has been received for Polysomnogram (PSG) from Dr. Siobhan Sellers,, a B. [facility] Staff. Visit prep complete. Comments :No The sleep study is scheduled for 10/21. Insurance: Payor: ANTHEM / Plan: BLUE CARD PPO OOS / Product Type: PPO / Payer/Plan Subscr Sex Relation Sub. Ins. ID Effective Group Num 1. ANTHEM - BLUE* CHAVO TOM 1980 Female Self [id number] [birth year] [id number] [address] 2. DENTAL - METL* CHAVO TOM 1980 Female Self [id number] [birth year] [id number] [address] Stephie Polk documented in [facility]12-29-[facility]22 History of Present illness Narrative* Camelia Arias RT(R) - 10/02/2022 8:20 AM EST Radiology Service Progress Note PATIENT NAME: Chavo Tom DATE OF SERVICE: October 02, 2022 TIME: 8:33 AM PATIENT IDENTITY VERIFICATION COMPLETED USING TWO (2) IDENTIFIERS: Name and Date of confirmedby patient verbally. FALL SCREENING: Has the patient had 2 falls in the last year or 1 fall with injury or currently using an Ambulatory Assistive Device (Walker, Cane, Wheelchair, Crutches, etc.)? No PATIENT GENDER DATA: Female. status: : No status: NO. PATIENT RELEVANT IMPLANT DATA REVIEWED: Not Applicable RADIOLOGY DEPARTMENT: General X-ray: Exam(s) Completed: Chest X-Ray PERIPHERAL IV DATA: Not applicable SIGNED BY: RT Yoko(R) October 02, 2022 8:33 AM documented in this encounterL[facility]12-26-2022 Instructions* Patient Instructions* Bridget Ruano APRN.CNP - 09/29/2022 12:22 PM EST ASSESSMENT/PLAN: 1. Acute midline low back pain with left-sided sciatica - ICD9: 724.2, 724.3, ICD10: M54.42 (primary diagnosis) Mechanical low back pain - Ice for localized tenderness - Prednisone burst- see orders - Muscle relaxant- see orders - UA positve for yuliana esterase and trace ketones - CYCLOBENZAPRINE 10 MG TABLET - PREDNISONE 10 MG TABLET - UA DIP, URINE (POC) 2. Leukocytes in urine - ICD9: 791.7, ICD10: R82.998 - URINE CULTURE- no antibiotic prescribed today, will treat if indicated by urine culture. - Follow-up with your PCP in 3-5 days if symptoms have not improved or sooner if symptoms worsen - Discussed red flags and need for immediate medical evaluation if any occur. - Discussed supportive care treatment with fluids, rest and analgesia. - Discussed expected course of illness Bridget Ruano APRN.CNP EMERGENCY DEPARTMENT LOW BACK PAIN GENERAL INFORMATION: Low back pain is located in the small of the back. The pain may be related to sprained muscles or ligaments, to muscle spasms, or to herniation of a spinal disc. There are many possible causes of back pain, but the most common causes are gradual wear and tear, physical and emotional stress, and weak or tense muscles from lack of proper exercise. The pain can develop quickly or overnight and may be caused by unusual exertion such as moving furniture or heavy lifting. Low back pain can be severe, and sometimes you may be unable to move without pain. INSTRUCTIONS: 1.Apply ice packs to your back for 10-20 minutes 3 to 4 times a day. Put the ice in a plastic bag and place a towel between the bag of ice and your skin. A gentle massage and warm showers may also behelpful. 2. Begin normal activities as you can tolerate without causing pain. 3. Bend at the hips and knees; never bend from the waist only. Lift with your legs, not your back. 4. Sleep on a firm mattress or put a to 1 inch piece of plywood between the mattress and box springs. Do not use a waterbed because it does not support your back correctly. Sleep with a pillow under your knees or sleep on your side with your knees bent. 5. Wear low-heeled shoes. 6. If you are overweight, losing weight will help prevent another attack. 7. Begin a program of back exercises to prevent future episodes of pain. Walking, swimming, and bicycling are good exercise. Avoid exercises that put stress on the back, such as rowing and jogging. CONTACT YOUR DOCTOR OR RETURN TO THE ED IF: 1. You have shooting pains into your buttocks, groin, or legs. 2. You have difficulty urinating or lose control of bowel or bladder function. 3. You have numbness or weakness in your legs or feet. documented in this encounterL[facility]12-26-2022 History of Present illness Narrative* Bridget Ruano APRN.CNP - 09/29/2022 12:17 PM EST Subjective HPI Chavo Tom is a 42 year old female who presents with low back pain since yesterday. She rates her pain 9/10 and describes it as spasms that are intermittent. She denies any recent injury or known causative factor. She has take tylenol for her pain. She denies any other symptoms. Review of Systems Constitutional: Negative for chills and fever. Respiratory: Negative. Cardiovascular: Negative. Gastrointestinal: Negative for abdominal pain, diarrhea, nausea and vomiting. Genitourinary: Positive for flank pain (left). Negative for dysuria, frequency, hematuria and urgency. Musculoskeletal: Positive for back pain. Negative for falls. BP 118/82 Pulse 91 Temp 36.9 C (98.5 F) Resp 20 Wt 124.7 kg (275 lb) LMP 01/06/2012 SpO2 98% BMI 41.81 kg/m PAST MEDICAL HISTORY Diagnosis Date Atrial fibrillation ([facility]) CHADS score 0 Cardiomyopathy ([facility]) 02/24/14 Family history of hypertrophic cardiomyopathy 01/18/2014 Impaired glucose tolerance 01/21/2011 Left bundle branch block Obesity Ventricular tachyarrhythmia 02/2014 Vfgsh-Xkacbcrib-Oufio (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 Cardioverted with 150j under sedation DEFIBRILLATOR SURGERY 02/24/2014 ICD, redo WPW & atrial fib ablation EPS: DEFIB. SURGERY 05/16/2021 Exchange of a SamEnrico SQ-RX 1010 pulse generator with a No Paper Just Vapor PAST SURGICAL HISTORY OF 07/06/2014 WPW ablation PAST SURGICAL HISTORY OF 11/21/2019 MVr, myectomy, PVI, LAAC TYMPANOSTOMY LOCAL/TOPICAL ANESTHESIA Right ALLERGIES Metformin MEDICATIONS metoprolol succinate ER (TOPROL XL) 25 mg 24 hr tablet^Take 1.5 tablets by mouth twice daily with meals.^Disp: 60 tablet^Rfl: 5 apixaban (ELIQUIS) 5 mg tab(s)^Take 1 tablet by mouth twice daily.^Disp: 60 tablet^Rfl: 3 sotalol (BETAPACE) 120 mg tablet^Take 1 tablet by mouth twice daily.^Disp: 180 tablet^Rfl: 1 semaglutide, weight loss, (WEGOVY) 2.4 mg/0.75 mL pen injector^Inject 0.75 mL subcutaneously one time a week.^Disp: 9 mL^Rfl: 3 aspirin 81 mg chewable tablet^Take 1 tablet by mouth once daily.^Disp: 90 tablet^Rfl: 1 FAMILY HISTORY Problem Relation Age of Onset Diabetes Mother Hypertension Mother Thyroid Mother Coronary Artery Disease Mother CABG 2013 Lipids Father Heart Maternal Grandmother OR age 72 None Maternal Grandfather age 46-"suddenly" Alcohol/Drug Paternal Grandfather ETOH Diabetes Maternal Aunt Diabetes Maternal Uncle Diabetes Brother Heart Sister HOCKylah s/p ICD Social History Tobacco Use Smoking status: Never Smokeless tobacco: Never Vaping Use Vaping Use: Never used Substance Use Topics Alcohol use: No Drug use: No Objective Physical Exam Vitals and nursing note reviewed. Constitutional: General: She is not in acute distress. Appearance: She is obese. She is not toxic-appearing. Cardiovascular: Rate and Rhythm: Normal rate and regular rhythm. Heart sounds: Normal heart sounds. Pulmonary: Effort: Pulmonary effort is normal. No respiratory distress. Breath sounds: Normal breath sounds. No wheezing or rales. Abdominal: General: There is no distension. Palpations: Abdomen is soft. There is no mass. Tenderness: There is no abdominal tenderness. There is no right CVA tenderness, left CVA tendernessor guarding. Skin: General: Skin is warm and dry. Findings: No erythema or rash. Neurological: Mental Status: She is alert. ASSESSMENT/PLAN: 1. Acute midline low back pain with left-sided sciatica - ICD9: 724.2, 724.3, ICD10: M54.42 (primary diagnosis) Mechanical low back pain - Ice for localized tenderness - Prednisone burst- see orders - Muscle relaxant- see orders - UA positve for yuliana esterase and trace ketones - CYCLOBENZAPRINE 10 MG TABLET - PREDNISONE 10 MG TABLET - UA DIP, URINE (POC) 2. Leukocytes in urine - ICD9: 791.7, ICD10: R82.998 - URINE CULTURE- no antibiotic prescribed today, will treat if indicated by urine culture. - Follow-up with your PCP in 3-5 days if symptoms have not improved or sooner if symptoms worsen - Discussed red flags and need for immediate medical evaluation if any occur. - Discussed supportive care treatment with fluids, rest and analgesia. - Discussed expected course of illness Bridget Ruano APRN.REGISTERED DIET TECHNICIAN documented in this encounterLima [facility]12-21-2022 History of Present illness Narrative* Yaima Arevalo RDMS - 09/24/2022 1:00 PM EST Radiology Service Progress Note PATIENT NAME: Chavo Tom DATE OF SERVICE: September 24, 2022 TIME: 1:25 PM PATIENT IDENTITY VERIFICATION COMPLETED USING TWO (2) IDENTIFIERS: Name and Date of confirmedby patient verbally. FALL SCREENING: Has the patient had 2 falls in the last year or 1 fall with injury or currently using an Ambulatory Assistive Device (Walker, Cane, Wheelchair, Crutches, etc.)? No PATIENT GENDER DATA: Female. status: : No status: NO. PATIENT RELEVANT IMPLANT DATA REVIEWED: Not Applicable RADIOLOGY DEPARTMENT: Ultrasound PERIPHERAL IV DATA: Not applicable SIGNED BY: Yaima Arevalo RDMS September 24, 2022 1:25 PM documented in this encounterLima [facility] Hospital12-19-2022 Miscellaneous Notes* Telephone Encounter - Clementina Ny RN - 09/22/2022 3:14 PM EST BMI SPECIALTY CARE COORDINATION TELEPHONE ENCOUNTER Left message on patient's voicemail in regards to 09/[address] Mercer. Requested to change appt to earlier that day or virtual on 09/23. Provided call back number. Clementina Ny RN September 22, 2022 3:15 PM documented in this encounterLima City Hospital12-07-2022 Instructions* Patient Instructions* Edna Leigh RD - 09/10/2022 1:33 PM EST Nutrition Intervention 09/10/2022: Modify type and amount of foods consumed for meals and snacks 1. Read Nutritional Guidelines Section of Your Guide to Surgery by next session [email or web address]?[email or web address] n 2. Do not skip meals. 3. Use protein shake 1x per day to replace any skipped meals or for breakfast Aim for shakes ~200 calories, ~20-30 grams of protein, <5 grams of total sugar. Here are a few examples of approved options for the 2 week pre-op liquid diet: Slim Fast Advanced Nutrition, [place] Breakfast Essentials "Light Start" mixed with fat free or 1% milk, Atkins, Boost Glucose Control,Owyn 4. Use the Healthy Plate Method of portion control for lunch and dinner 4 oz lean meat (fish, chicken, pork tenderloin, turkey, seafood, eggs/cheese) 1/2 plate non starchy vegetables (salad, greens, cabbage, spinach, brussels sprouts, broccoli, carrots, celery, peppers, green beans, cauliflower) 1 cup starch/starchy vegetables (corn, peas, beans, winter squash, sweet potato, brown rice, whole grain pasta, whole grain bread products, quinoa) 5. Physical activity: Aim for 150 minutes of physical activity per week. Include 10-20 minutes of strength/resistance exercise 2-3x/week. 6. Drink 64 ounces per day water. Fluids should follow these guidelines: No carbonation, no caffeine, no calories, no alcohol. 7. Start to explore post surgery bariatric vitamins/minerals: (2) children's chewable Multivitamin complete (morning) OR (2) adult Centrum Chewable complete multivitamin, Iron supplement 18mg (morning), Vit B12 500 mcg sublingual pill or liquid (morning), and calcium citrate w/Vit D 600 mg at lunch and 600 mg at dinner. Additional 2000 IU Vit D3 daily, B complex with 75-100 mg Thiamine *It is ok to take a combination bariatric vitamin to limit pill volume. Here are a few options to consider: - Bariatric Fusion: 4 Complete Multivitamin chewables per day (2 in the AM, 2 in the PM) www.[email or web address].com - [employer]: 1 Bariatric Multivitamin (capsule or chewable) and 0236-1240 mg Calcium Citrate per day www.[employer] - Bariatric Choice: 1 Bariatric Multivitamin capsule and 1298-4883 mg Calcium Citrate per day OR 4 Complete Multivitamin chewables per day www.[email or web address].com - Bariatric Advantage: 2 Multivitamin chewables and 3 Calcium Citrate chewables per day www.bariatricadvantage.com - Celebrate: 2 Multivitamin (chewables) OR 3 Multivitamin (capsules) PLUS 3 Calcium Citrate soft chews per day AND Iron (chewable, capsule, or soft chew for a total of 45-60 mg per day) www.Hoot.MeteEadBoxs.[employer] - Bariatric Pal: 1 Bariatric Multivitamin capsule and 3397-1330 mg Calcium Citrate per day www.[email or web address]/collections/[email or web address]-vitamins Take multivitamin with iron 2 hours apart from calcium citrate, and take each dose of calcium 4 hours apart from each other Pre-op goal weight: 267 pounds Protein needs: 89 gm per day Nutrition Monitoring & Evaluation: 1-2 lbs wt loss/week Need for Follow up: 1 month, scheduled for 10/22 @ 8:45am with Jamaal Patterson [facility] History of Present illness Narrative* Edna Leigh RD - 09/10/2022 12:30 PM EST Nutrition Therapy Initial Assessment Nutrition Diagnosis: Overweight/obesity, related to, food/nutrition - related knowledge deficit, asevidenced by BMI above normative standard for age and gender. RECOMMENDED MALNUTRITION DIAGNOSIS: NO MALNUTRITION IDENTIFIED NUTRITION CARE PLAN Nutrition Intervention 09/10/2022: Modify type and amount of foods consumed for meals and snacks 1. Read Nutritional Guidelines Section of Your Guide to Surgery by next session [email or web address]?la=[email or web address] n 2. Do not skip meals. 3. Use protein shake 1x per day to replace any skipped meals or for breakfast Aim for shakes ~200 calories, ~20-30 grams of protein, <5 grams of total sugar. Here are a few examples of approved options for the 2 week pre-op liquid diet: Slim Fast Advanced Nutrition, [place] Breakfast Essentials "Light Start" mixed with fat free or 1% milk, Atkins, Boost Glucose Control,Owyn 4. Use the Healthy Plate Method of portion control for lunch and dinner 4 oz lean meat (fish, chicken, pork tenderloin, turkey, seafood, eggs/cheese) 1/2 plate non starchy vegetables (salad, greens, cabbage, spinach, brussels sprouts, broccoli, carrots, celery, peppers, green beans, cauliflower) 1 cup starch/starchy vegetables (corn, peas, beans, winter squash, sweet potato, brown rice, whole grain pasta, whole grain bread products, quinoa) 5. Physical activity: Aim for 150 minutes of physical activity per week. Include 10-20 minutes of strength/resistance exercise 2-3x/week. 6. Drink 64 ounces per day water. Fluids should follow these guidelines: No carbonation, no caffeine, no calories, no alcohol. 7. Start to explore post surgery bariatric vitamins/minerals: (2) children's chewable Multivitamin complete (morning) OR (2) adult Centrum Chewable complete multivitamin, Iron supplement 18mg (morning), Vit B12 500 mcg sublingual pill or liquid (morning), and calcium citrate w/Vit D 600 mg at lunch and 600 mg at dinner. Additional 2000 IU Vit D3 daily, B complex with 75-100 mg Thiamine *It is ok to take a combination bariatric vitamin to limit pill volume. Here are a few options to consider: - Bariatric Fusion: 4 Complete Multivitamin chewables per day (2 in the AM, 2 in the PM) www.[email or web address].[employer] - [employer]: 1 Bariatric Multivitamin (capsule or chewable) and 5265-7373 mg Calcium Citrate per day www.Retty - Bariatric Choice: 1 Bariatric Multivitamin capsule and 4541-9639 mg Calcium Citrate per day OR 4 Complete Multivitamin chewables per day www.bariatricchoice.com - Bariatric Advantage: 2 Multivitamin chewables and 3 Calcium Citrate chewables per day www.bariatricadvantage.[employer] - Celebrate: 2 Multivitamin (chewables) OR 3 Multivitamin (capsules) PLUS 3 Calcium Citrate soft chews per day AND Iron (chewable, capsule, or soft chew for a total of 45-60 mg per day) www.[email or web address].[email or web address].com - Bariatric Pal: 1 Bariatric Multivitamin capsule and 7041-9710 mg Calcium Citrate per day www.[email or web address]/collections/bariatric-vitamins Take multivitamin with iron 2 hours apart from calcium citrate, and take each dose of calcium 4 hours apart from each other Pre-op goal weight: 267 pounds Protein needs: 89 gm per day Nutrition Monitoring & Evaluation: 1-2 lbs wt loss/week Need for Follow up: 1 month, scheduled for 10/22 @ 8:45am with Jamaal Patterson Patient presents for initial nutrition consult in preparation for bariatric surgery. Patient is interested in LSG (Dr. Mercer). Height and weight discussed today. Presents with Class III obesity, Body mass index is 42.54 kg/m . Significant medical comorbidities include n/a. Patient has realistic (36 % TWL) weight loss expectations, anticipating weight loss of 100 lbs., with desired weight of 170 lbs. following surgery. Patient has basic understanding of weight loss surgery and nutritional implications following surgery. Previous diet attempts include IF, weight loss medication (started govyJuly 2020 and has since lost ~30 lbs). Weight history significant for early onset weight gain. Greatest barrier to weight loss in the past n/a. Greatest motivation for surgery includes being there for her son. Diet recall indicates consistent meal pattern with no skipped meals. Quality of meals varies and while she does include protein with all meals, she tends to eat more processed, carb dense meals in the evening. Fluid intake is adequate in volume, mostly consisting of water with regular consumption of diet soda which she feels she will be able to eliminate easily. Physical activity is routine and includes cardio exercise 3x/week. Emmalena body weight: 164 lbs. Excess body weight: 115 lbs. Goal weight pre-op: 267 lbs. Protein needs estimated: 89 gm (1.2 g protein/kg IBW) Patient meets the National Institutes of Health guidelines for weight loss surgery and has [employer] therefore is required to complete 0 months of Nutrition Intervention for clearance for surgery, however needs to demonstrate consistent effort in making dietary changes before being cleared for surgery. It is anticipated that the patient will need at least 1-2 nutritional follow-up visits prior to clearance for surgery. Today is visit #1. Patient's symptoms are: Weight Concerns: failure to lose weight Diet History: Breakfast - dannon yogurt w/ granola Snack - none Lunch - salad w/ chicken Snack - none Dinner - pasta, chicken w/ corn or mixed vegetable and rice, hamburger helper Snack - pickles or cheese Beverages - water (>64 oz), 1 can diet pop Alcohol- none Vitamins/Supplements - none Activity: Activities of Daily Living: Active 50% of the day. 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 Resting Metabolic Rate: 1976 Malnutrition Screening Significant unintentional weight loss? No Eating less than 75% of usual intake for more than 2 weeks? No Potential Signs of Inflammation: no identifiable sources Education Materials Provided: BMI Nutrition Guidelines and Vitamins & Minerals after Gastric Bypass or Gastric Sleeve READINESS TO LEARN Cognitive ability: Alert and oriented Motivation to learn: Interested Family support: Unable to assess - Family not present Instruction provided to: Patient Patient learns best by: Multiple Methods Factors affecting learning: None Physical limitations affecting learning: None Referred/Supervised by: self/Butsch MNT Billing Type: Initial Assess/15 min 2 units SIGNATURE: Edna Leigh RD PATIENT NAME: Chavo Tom DATE: September 10, 2022 TIME: 10:17 AM documented in this encounter[facility]12-[facility] Miscellaneous Notes* Letter - Mammography Coordinator - 09/08/2022 9:51 AM EST September 08, 2022 PID: [id number] Chavo Tom [address] [place] [address] Dear Ms. Tom, We are pleased to inform you that the results of your recent breast imaging exam on 09/04/2022 are normal. Early detection of cancer is very important. We also understand recommendations regarding breast cancer screening are controversial. Please discuss with your primary care provider which strategy is best for you and whether a mammogram is right for you. Your imaging studies and report will be kept [facility] as part of your permanent medical record and are available for your continuing care. Thank you for allowing us to help in meeting your health care needs. Sincerely, Dr. Edwards Interpreting Radiologist [facility] (Normal over 40) documented in this encounterL[facility]12-01-2022 History of Present illness Narrative* Vianey Valencia RT(R) - 09/04/2022 10:50 AM EST Radiology Service Progress Note PATIENT NAME: Chavo Tom DATE OF SERVICE: September 04, 2022 TIME: 10:36 AM PATIENT IDENTITY VERIFICATION COMPLETED USING TWO (2) IDENTIFIERS: Name and Date of confirmedby patient verbally. FALL SCREENING: Has the patient had 2 falls in the last year or 1 fall with injury or currently using an Ambulatory Assistive Device (Walker, Cane, Wheelchair, Crutches, etc.)? No PATIENT GENDER DATA: Female. status: : No status: NO. PATIENT RELEVANT IMPLANT DATA REVIEWED: Not Applicable RADIOLOGY DEPARTMENT: Mammography PERIPHERAL IV DATA: Not applicable SIGNED BY: RT Sheela(R) September 04, 2022 10:36 AM documented in [facility]11-03-[facility]22 Miscellaneous Notes* Telephone Encounter - Radha Dinero - 08/07/2022 9:01 AM EDT Images from the original note were not included. documented in this encounterL[facility]11-01-2022 Miscellaneous Notes* Telephone Encounter - Basilia Hatch Gater [facility] - 08/05/2022 7:56 AM EDT Call from pharmacy requesting refill. Requested Prescriptions Pending Prescriptions Disp Refills metoprolol succinate ER (TOPROL XL) 25 mg 24 hr tablet 60 tablet 5 Sig: Take 1.5 tablets by mouth twice daily with meals. Patient last seen 01/27/2020 [facility] documented in this [facility]10-17-[facility]22 History of Present illness Narrative* Sparkle Gimenez APRN.REGISTERED DIET TECHNICIAN - 07/21/2022 4:16 PM EDT Subjective Patient came in with complaints of red itchy eyes. Patient says it started in the right eye severaldays ago and they have been matted shut in the mornings when she woke up. Patient says it is now starting to spread to the left eye. Patient denies any visual changes or eye pain. Patient denies any other symptoms at this time. The history is provided by the patient. No foreign language instructor was used. Eye Problem Review of Systems Constitutional: Negative. Skin: Negative. Objective Physical Exam Constitutional: Appearance: Normal appearance. Eyes: General: Lids are normal. Vision grossly intact. Comments: Bilateral erythema in the conjunctiva. Sclera are bilaterally erythematous. No foreign bodies noted. Pulmonary: Effort: Pulmonary effort is normal. Neurological: Mental Status: She is alert. 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 Cardioverted with 150j under sedation DEFIBRILLATOR SURGERY 02/24/2014 ICD, redo WPW & atrial fib ablation EPS: DEFIB. SURGERY 05/16/2021 Exchange of a No Paper Just Vapor SCIENTIFIC SQ-RX 1010 pulse generator with a [place] PAST SURGICAL HISTORY OF 07/06/2014 WPW ablation PAST SURGICAL HISTORY OF 11/21/2019 MVr, myectomy, PVI, LAAC TYMPANOSTOMY LOCAL/TOPICAL ANESTHESIA Right ALLERGIES Metformin MEDICATIONS apixaban (ELIQUIS) 5 mg tab(s)^Take 1 tablet by mouth twice daily.^Disp: 60 tablet^Rfl: 3 metoprolol succinate ER (TOPROL XL) 25 mg 24 hr tablet^Take 1.5 tablets by mouth twice daily with meals.^Disp: 60 tablet^Rfl: 5 sotalol (BETAPACE) 120 mg tablet^Take 1 tablet by mouth twice daily.^Disp: 180 tablet^Rfl: 1 semaglutide, weight loss, (WEGOVY) 2.4 mg/0.75 mL pen injector^Inject 0.75 mL subcutaneously one time a week.^Disp: 9 mL^Rfl: 3 aspirin 81 mg chewable tablet^Take 1 tablet by mouth once daily.^Disp: 90 tablet^Rfl: 1 trimethoprim-polymyxin (POLYTRIM) 10,000 unit- 1 mg/mL ophthalmic solution^Use 1 Drop in both eyes every 4 hours for 7 days.^Disp: 10 mL^Rfl: 0 FAMILY HISTORY Problem Relation Age of Onset Diabetes Mother Hypertension Mother Thyroid Mother Coronary Artery Disease Mother CABG 2012 Lipids Father Heart Maternal Grandmother OR age 72 None Maternal Grandfather age 46-"suddenly" Alcohol/Drug Paternal Grandfather ETOH Diabetes Maternal Aunt Diabetes Maternal Uncle Diabetes Brother Heart Sister HOCM s/p ICD Social History Tobacco Use Smoking status: Never Smokeless tobacco: Never Vaping Use Vaping Use: Never used Substance Use Topics Alcohol use: No Drug use: No ASSESSMENT/PLAN: 1. [place] eye disease of both eyes - ICD9: 372.03, ICD10: H10.023 Polytrim every 4 hours for 7 days. We will follow-up if anything changes. Patient was okay with this care plan. Sparkle Gimenez APRN.CNP documented in this encounterL[facility]09-08-2022 Instructions* Patient Instructions* Radha Newby APRN.CNP - 06/12/2022 7:58 AM EDT Fact Sheet for Patients, Parents, and Caregivers Emergency Use Authorization (EUA) of Bebtelovimab for Coronavirus Disease 2019 (COVID-19) You are being given this Fact Sheet because your healthcare provider believes it is necessary to provide you or your child with bebtelovimab for the treatment of jiyn-oo-fvyadewh coronavirus disease 2019 (COVID-19) in adults and children (12 years of age and older weighing at least 88 pounds [40 kg]) with positive results of direct severe acute respiratory syndrome coronavirus 2 (SARS-CoV-2) viral testing, and who are at high risk for progression to severe COVID-19, including hospitalization ordeath, and for whom other COVID-19 treatment options approved or authorized by FDA are not available or clinically appropriate. This Fact Sheet contains information to help you understand the potential risks and potential benefits of receiving bebtelovimab, which you or your child have received or may receive. The U.S. Food and Drug Administration (FDA) has issued an Emergency Use Authorization (EUA) to makebebtelovimab available during the COVID-19 pandemic (for more details about an EUA please see What is an Emergency Use Authorization? at the end of this document). Bebtelovimab is not an FDA-approved medicine in the [place]. Read this Fact Sheet for information about bebtelovimab. Talk to your healthcare provider about your options or if you have any questions. It is your choice for you or your child to receive bebtelovimab or stop it at any time. What is COVID-19? COVID-19 is caused by a virus called a coronavirus (SARS-CoV-2). You can get COVID-19 through contact with another person who has the virus. COVID-19 illnesses have ranged from very mild (including some with no reported symptoms) to severe, including illness resulting in . While information sofar suggests that most COVID-19 illness is mild, serious illness can happen and may cause some of your or your child s other medical conditions to become worse. Older people and people of all ages with severe, or long lasting (chronic) medical conditions like heart disease, lung disease, diabetes, and obesity, for example, seem to be at higher risk of being hospitalized for COVID-19. Older age, with or without other conditions, also places people at higher risk of being hospitalized for COVID-19. What is bebtelovimab? Bebtelovimab is an investigational medicine used for the treatment of fznj-dq-xejsuxjf coronavirus disease 2019 (COVID-19) in adults and children (12 years of age and older weighing at least 88 pounds [40 kg]): with positive results of direct SARS-CoV-2 viral testing, and who are at high risk for progression to severe COVID-19, including hospitalization or , and for whom other COVID-19 treatment options approved or authorized by FDA are not available or clinically appropriate. There is limited information known about the safety and effectiveness of using bebtelovimab for thetreatment of mxuo-pj-wtphyfvr COVID-19. For more information on EUA, see the What is an Emergency Use Authorization (EUA)? section at the end of this Fact Sheet. Bebtelovimab is not authorized for use in people who: are likely to be infected with a SARS-CoV-2 variant that is not able to be treated by bebtelovimab based on the circulating variants in your area (ask your health care provider about FDA and CDC s latest information on circulating variants by geographic area), or are hospitalized due to COVID-19, or require oxygen therapy and/or respiratory support due to COVID-19, or require an increase in baseline oxygen flow rate and/or respiratory support due to COVID-19 and areon chronic oxygen therapy and/or respiratory support due to underlying [id number] related comorbidity. What should I tell my healthcare provider before I or my child receive bebtelovimab? Tell your healthcare provider about all your or your child s medical conditions including if you oryour child: Have any allergies Are or plan to become Are or plan to breastfeed Have any serious illnesses Are taking any medicines (prescription, and swmw-mjb-chmzhzc, vitamins, or herbal products) How will I or my child receive bebtelovimab? Bebtelovimab will be given as an injection through a vein (intravenously or IV) over at least 30 seconds. You will be observed by your healthcare provider for at least 1 hour after you receive bebtelovimab. What are the important possible side effects of bebtelovimab? Allergic reactions. Allergic reactions can happen during and after injection with bebtelovimab. Tell your healthcare provider right away if you or your child develop any of the following signs and symptoms of allergic reaction: fever, difficulty breathing, low oxygen level in your blood, chills, tiredness, fast or slow heart rate, chest discomfort or pain, weakness, confusion, nausea, headache, shortness of breath, low or high blood pressure, wheezing, swelling of your lips, face, or throat, rash including hives, itching, muscle aches, dizziness, feeling faint, and sweating. These reactions may be severe or life threatening. The side effects of receiving any medicine by vein may include brief pain, bleeding, bruising of the skin, soreness, swelling, and possible infection at the injection site. These are not all the possible side effects of bebtelovimab. Not many people have received bebtelovimab. Serious and unexpected side effects may happen. All of the risks are not known at this time. It is possible that bebtelovimab could interfere with your body's own ability to fight off a futureinfection of SARS-CoV-2. Similarly, bebtelovimab may reduce the body s immune response to a vaccinefor SARS-CoV-2. Talk to your healthcare provider if you have any questions. What other treatment choices are there? Like bebtelovimab, FDA may allow for the emergency use of other medicines to treat people with COVID-19. Go to https://www.fda.gov/bgkbgssxc-fewlumwxkmmo-mds-response/rpc-uorqu-kyubwexndy-and -policy-framework/fulxabcgy-ysx-ccjzczqxqoqly for information on the emergency use of other medicines that are authorized by FDA to treat people with COVID-19. Your healthcare provider may talk with you aboutclinical trials for which you may be eligible. It is your choice for you or your child to be treated or not to be treated with bebtelovimab. Should you decide not to receive it or for your child to not receive it, it will not change your or your child s standard medical care. What if I am or ? There is limited experience treating women or mothers with bebtelovimab. Fora mother and unborn baby, the benefit of receiving bebtelovimab may be greater than the risk from the treatment. If or , discuss your options and specific situation with your healthcare provider. How do I report side effects with bebtelovimab? Contact your healthcare provider if you have any side effects that bother you or do not go away. Report side effects to FDA [facility] at www.fda.gov/medwatch, or call 2-182-SEU-8108 or to [employer], [employer]. as shown below. Email Fax Number Telephone Number [email or web address] 1-855-[email or web address] ( ) How can I learn more about COVID-19? Ask your healthcare provider Visit https://www.cdc.gov/COVID19 Contact your local or state public health department What is an Emergency Use Authorization? The [place] FDA has made bebtelovimab available under an emergency access mechanism called anEmergency Use Authorization (EUA). The EUA is supported by a [place] of Health and Human Service (HHS) declaration that circumstances exist to justify the emergency use of drugs and biological products during the COVID- 19 pandemic. Bebtelovimab for the treatment of xscg-th-hccyxatf COVID-19 in adults and children (12 years of ageand older weighing at least 88 pounds [40 kg]) and who are at high risk of developing severe COVID-19, including hospitalization or , and for whom other COVID-19 treatment options approved or authorized by FDA are not available or clinically appropriate has not undergone the same type of review as an FDA-approved product. In issuing an EUA under the COVID-19 public health emergency, the FDA has determined, among other things, that based on the total amount of scientific evidence available,including data from adequate and well-controlled clinical trials, it is reasonable to believe that t he product may be effective for diagnosing, treating, or preventing COVID-19, or a serious or life-threatening disease or condition caused by COVID-19; that the known and potential benefits of the product, when used to diagnose, treat, or prevent such disease or condition, outweigh the known and potential risks of such product; and that there are no adequate, approved and available alternatives. All of these criteria must be met to allow for the product to be used in the treatment of patients during the COVID-19 pandemic. The EUA for bebtelovimab is in effect for the duration of the COVID-19declaration justifying emergency use of bebtelovimab, unless terminated or revoked (after which bebtelovimab may no longer be used under the EUA). Additional Information For general questions, visit the website or call the telephone number provided below. Website Telephone Number [email or web address]/[email or web address] 2-651-VlkuoJ06 ( ) Literature issued November 15, 2021 [employer], [place] [address], [facility] Copyright 2021, [employer]. All rights reserved. 4.6-CFE-1139-EUA [facility]-[id number] documented in this encounterLima [facility]09-08-[facility]22 History of Present illness Narrative* Radha Newby APRN.GENIE - 06/12/2022 7:46 AM EDT Chief Complaint Patient presents with: Telemedicine Patient was offered a virtual/telemedicine appointment in lieu of an office visit due to recommendations to reduce patient exposure to COVID-19. Video was used for evaluation of this patient. Patient is aware of limitations of performing the visit without a face to face visit in the office setting and agrees. Patient agrees to the visit: Yes Patient Location: [facility] Chavo Tom is a 41 year old female who is contacted today for a virtual visit This is an established patient of Dr. Kylah Palma PA-C Reports: Refers that she is positive for covid. Refers symptoms started on 06/10/22. She had a negative home test for covid on 06/10. She tested positive yesterday She was in urgent care yesterday and had a positive PCR. + cough + headache + fatigue + sore throat Hot/cold -- but no fever. + diarrhea. Has been taking tylenol, ibuprofen, and cough syrup. She is interested in the monoclonal antibody infusion. 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 Cardioverted with 150j under sedation DEFIBRILLATOR SURGERY 02/24/2014 ICD, redo WPW & atrial fib ablation EPS: NEELIMA. SURGERY 05/16/2021 Exchange of a SamEnrico SQ-RX 1010 pulse generator with a BOSTON PAST SURGICAL HISTORY OF 07/06/2014 WPW ablation PAST SURGICAL HISTORY OF 11/21/2019 MVr, myectomy, PVI, LAAC TYMPANOSTOMY LOCAL/TOPICAL ANESTHESIA Right Family History FAMILY HISTORY Problem Relation Age of Onset Diabetes Mother Hypertension Mother Thyroid Mother Coronary Artery Disease Mother CABG 2012 Lipids Father Heart Maternal Grandmother OR age 72 None Maternal Grandfather age 46-"suddenly" Alcohol/Drug Paternal Grandfather ETOH Diabetes Maternal Aunt Diabetes Maternal Uncle Diabetes Brother Heart Sister HOCM s/p ICD Patient Allergies ALLERGIES Allergen Reactions Metformin Diarrhea Current Medications Current Outpatient Medications on File Prior to Visit Medication Sig apixaban (ELIQUIS) 5 mg tab(s) Take 1 tablet by mouth twice daily. metoprolol succinate ER (TOPROL XL) 25 mg 24 hr tablet Take 1.5 tablets by mouth twice daily with meals. sotalol (BETAPACE) 120 mg tablet Take 1 tablet by mouth twice daily. semaglutide, weight loss, (WEGOVY) 2.4 mg/0.75 mL pen injector Inject 0.75 mL subcutaneously one time a week. aspirin 81 mg chewable tablet Take 1 tablet by mouth once daily. No current facility-administered medications on file prior to visit. Social History Social History Tobacco Use Smoking status: Never Smokeless tobacco: Never Vaping Use Vaping Use: Never used Substance Use Topics Alcohol use: No Drug use: No EXAM: [facility] 01/06/2012 Limited exam as visit was completed over the virtual platform. Virtual visit completed using video, limited exam completed. Patient sounds or appears ill: Yes, but not toxic. General Appearance: Well appearing, alert, in no acute distress, well-hydrated, well nourished. Skin: Skin color normal Head: Normocephalic. No facial swelling or redness. EENT: Eyes nonreddened. No discharge. External ears nonreddened and no swelling. Neck: No mass or lesions. No swelling. FROM Patient is unable to speak in complete sentences: No Patient has labored breathing: No. Patient is audibly coughing: No Psych: Attitude - cooperative, easily engaged in conversation Affect - Euthymic, normal mood Mental status: Alert. Speech is clear and fluent with good repetition, comprehension Appearance - Normal hygiene and grooming appropriate Coordination: No abnormal or extraneous movements. Gait/Stance: Posture is normal. Health Maintenance List HEPATITIS B(1 of 3 - 3-dose series) Never done PNEUMOCOCCAL(2 - PCV) due on 08/28/2021 MAMMOGRAM due on 10/23/2021 DEPRESSION SCREENING due on 03/16/2022 INFLUENZA(1) due on 06/05/2022 PAP TESTING due on 02/06/2023 HPV TESTING due on 02/06/2023 COVID-19 VACCINE(1) due on 02/06/2023 ANNUAL PCP TEAM CHRONIC DISEASE VISIT due on 02/06/2023 DTAP,TDAP,TD(2 - Td or Tdap) due on 06/02/2026 HEPATITIS C SCREENING Completed HIV SCREENING Completed Data reviewed Last 5 Encounter BP Readings: Date: BP: 06/11/2022 134/80 02/06/2022 110/72 01/23/2022 110/60 10/25/2021 126/92 10/16/2021 109/66 BMI Readings from Last 5 Encounters: 06/11/22 : 42.12 kg/m 02/06/22 : 42.42 kg/m 01/23/22 : 42.01 kg/m 10/25/21 : 43.12 kg/m 10/16/21 : 42.91 kg/m Last 5 Encounter Wt Readings: Date: Wt: 06/11/2022 125.6 kg (277 lb) 02/06/2022 126.6 kg (279 lb) 01/23/2022 125.3 kg (276 lb 4.8 oz) 10/25/2021 128.6 kg (283 lb 9.6 oz) 10/16/2021 128 kg (282 lb 3.2 oz) Medication and allergy list reviewed, reconciled and updated 06/12/2022 ASSESSMENT/PLAN: 1. COVID-19 - ICD9: 079.89, ICD10: U07.1 Pt is interested in monoclonal antibodies. Discussed risks/benefits. Aware not an FDA approved medication. She would like to proceed. Order placed. - INTERMITTENT PERIPHERAL DEVICE (LA,NC) - SODIUM CHLORIDE 0.9 % INJECTION SOLUTION - AMBULATORY NURSING COMMUNICATION ORDER - SODIUM CHLORIDE 0.9 % INTRAVENOUS SOLUTION - ACETAMINOPHEN 325 MG TABLET - DIPHENHYDRAMINE 50 MG/ML INJECTION SYRINGE - HYDROCORTISONE SOD SUCCINATE (PF) 100 MG/2 ML SOLUTION FOR INJECTION - EPINEPHRINE 1 MG/ML (1 ML) INJECTION SOLUTION - PROCHLORPERAZINE EDISYLATE 10 MG/2 ML (5 MG/ML) INJECTION SOLUTION - PROCHLORPERAZINE MALEATE 5 MG TABLET - COVID TREATMENT REFERRAL - BEBTELOVIMAB 175 MG/2 ML (87.5 MG/ML) INTRAVENOUS SOLUTION (EUA) Radha Newby APRN.REGISTERED DIET TECHNICIAN Discussed treatment plan and patient voices understanding. Patient's questions answered appropriately. Medications and potential side effects were discussed and patient voices understanding. Return to the office as scheduled or as needed for worsening/no improvement. Bebtelovimab Eligibility and Patient Discussion [facility] Formulary Restriction Criteria: Adult outpatients 18 years and older with all of the following: [x] Patient has positive SARS-COV-2 viral test (PCR or antigen test) and symptoms for </= 7 days [x] Not requiring hospitalization at any time for management of COVID-19 [x] Not requiring supplemental oxygen or a change in baseline supplemental oxygen [x] Meeting patient criteria as below: [] Older age (age >/= 65 years) OR [x] 18 years and older with at least one of the following: [x] Obesity or being overweight (BMI > 30) [] [] Chronic kidney diseases (stage 4 or 5) [] Diabetes [x] Cardiovascular disease including hypertension [] COPD/other chronic respiratory disease [] Sickle cell disease [] Neurodevelopmental disorder (e.g. cerebral palsy) or other conditions that confer medical complexity (e.g. genetic or metabolic syndromes and severe congenital abnormalities) [] Medical related technological dependence (e.g. tracheostomy, gastrostomy, or positive pressure ventilation (not related to COVID-19)) OR [] 18 years and older with immunosuppressive disease or immunosuppressive therapy defined as: [] Immune-mediated inflammatory disease (rheumatoid arthritis, psoriatic arthritis, ankylosing spondylitis, psoriasis, systemic lupus erythematous, idiopathic inflammatory myositis, systemic sclerosis, primary systemic vasculitis, Sjogren s syndrome, inflammatory bowel disease) AND receiving at least one of the following [] Prednisone (equivalent of > 10 mg daily at time of infusion) [] Rituximab [] 5-ASA derivatives (e.g. sulfasalazine, mesalamine) [] Solid Organ Transplant recipients [] Post-transplant AND on immunosuppression [] Cancer center patients AND at least one of the following: [] On treatment with anti-B cell monoclonal antibodies (e.g. rituximab, obinutuzumab, ofatumumab) [] On treatment with high-intensity chemotherapy regimen [] Myeloablative hematopoietic stem cell transplant recipients within 6 months of transplant or on systemic therapy for uafpw-qmgogu-oiph disease [] CAR T-cell/other cellular therapy recipients within 6 months of infusion [] Hypogammaglobulinemia due to cancer/hematologic disease or its treatment [] Primary immunodeficiency disorder (including common variable immunodeficiency disorder and selective antibody deficiency disorder) Criteria above are met: Yes Date of Positive Test: 06/11/22 Date of Symptom Onset: 06/10/22 Patient received COVID vaccine: No I have discussed the use of the investigational therapeutic, Bebtelovimab, for the treatment of mild to moderate COVID-19 and its use under Emergency Use Authorization with the patient. The patient was informed that Bebtelovimab is not an FDA approved drug and that it is authorized for use under this Emergency Use Authorization. The patient was also informed of the significant knownbenefits and potential risks of Bebtelovimab, and the extent to which such potential risks and benefits are unknown. The patient was informed that there is mandatory reporting of all medication errors and serious adverse events potentially related to Bebtelovimab treatment within 7 calendar days from the onset of the event. The discussion included alternatives to receiving Bebtelovimab, includingclinical trials, and potential the risks and benefits of those alternatives. The patient was provided electronically with the "Fact Sheet for Patients, Parents and Caregivers". The patient was also instructed that in addition to the treatment with Bebtelovimab, he/she should continue to self-isolate and use infection control measures (e.g., wear mask, isolate, social distance, avoid sharing personal items, clean and disinfect "high touch" surfaces, and frequent handwashing) according to CDC guidelines. The patient stated understanding and gave verbal consent to proceeding with Bebtelovimab treatment. Radha Newby APRN.REGISTERED DIET TECHNICIAN June 12, 2022 7:59 AM * Vijaya Ames RPh - 06/12/2022 7:40 AM EDT COVID-19 Monoclonal Antibody Pharmacist Review Pharmacist has reviewed and verified eligibility for bebtelovimab infusion based on [facility] formulary restriction criteria. Date of Symptom Onset: 06/10/22 Date of Positive Test: 06/11/22 Criteria Met: Yes and pharmacist has determined that the patient is eligible for a COVID-19 monoclonal antibody. The patient's preferred site of infusion location is [place] [x] Consult order for 'COVID TREATMENT REFERRAL' has been released Vijaya Ames RPh June 12, 2022 9:07 AM documented in this encounterLima City Hospital09-08-2022 Miscellaneous Notes* Addendum Note - Vijaya Ames RPh - 06/12/2022 7:40 AM EDTAddended by: VIJAYA AMES on: 06/12/2022 09:07 AM Modules accepted: Orders documented in this encounterLima City Hospital09-07-2022 Instructions* Patient Instructions* Tony Tavares APRN.[employer] - 06/11/2022 7:35 AM EDT How to Manage Common Symptoms Associated with COVID for Adults Fever- Fever is a temperature over 100.4 F and can occur when the body is fighting an infection. Tohelp treat a fever: Drink plenty of fluids and stay well hydrated. Eat small amounts of easy to digest food. Rest. Your body needs rest to recover, but getting up and moving around the house frequently is a good idea. You should try to continue doing your normal daily activities (bathing, toileting, grooming, cooking), though you will probably feel tired, and need to rest often. Avoid any heavy activity or exercise, as this will increase your body temperature. Dress in light clothing and stay covered in a light sheet. Keep the room temperature cool. Take a slightly warm (not cold or cool) bath, or apply damp washcloths to the forehead and wrists. Cough- Cough is a common symptom associated with COVID and can be bothersome. To help treat a cough: Stay well hydrated. Try warm water or tea with lemon and/or honey to help soothe the cough. Use a humidifier to add moisture to the air. Try a product with menthol, like a cough drop or a rub for your chest such as Vicks, which can helpreduce cough. Try cough drops. Avoid smoking and other strong odors or perfumes. Try breathing exercises to keep your lungs open and clear. Take a big deep breath through your noseand hold for 5 seconds before slowly releasing. Repeat frequently, while you are awake. Congestion- Runny nose or nasal congestion can occur with COVID. Treatment can help relieve symptoms: Try OTC nasal saline spray, or nasal saline rinse to relieve mucus congestion. Nasal strips can help keep nasal passages open, to increase airflow. Elevating your head with an extra pillow in bed can help reduce congestion. Using a humidifier can increase moisture in the air, and make breathing easier. Sore Throat- Another common symptom with COVID, can be managed at home by: Stay well hydrated. Gargle with salt water - mix teaspoon salt with 1 cup of warm water and gargle. This helps to loosen mucus in the back of the throat and may reduce discomfort. Try ice chips, popsicles or lozenges to soothe the throat. Nausea/Vomiting/Diarrhea- These are common symptoms, and staying hydrated is most important. If you are nauseous or vomiting, start with small sips of water every 10-15 minutes and increase astolerated. You can try sucking an ice cube too. If tolerating, you can try pedialyte or Gatorade, or flat sprite or rona-yaya. Start slowly and increase as you are able to. Instead of meals, try smaller, more frequent snacks. Try eating bland foods like crackers, toast, rice, and applesauce. Avoid spicy, greasy or fried foods and dairy containing foods. Even if you aren't feeling hungry due to lack of smell or taste, it is important to try to take in some food when you are able. After drinking and eating, rest in an upright position for up to two hours as needed to help decrease nauseous feelings. Try closing your eyes, avoid moving and watching TV. Avoid strong odors that can make you feel more nauseated. When to seek emergency medical attention Look for emergency warning signs for COVID-19. If having any of these symptoms, seek emergency medical care immediately: Trouble breathing Persistent pain or pressure in the chest New confusion Inability to wake or stay awake Bluish lips or face *This list is not all possible symptoms. Please call your medical provider for any other symptoms that are severe or concerning to you. documented in this encounterLima City Hospital09-07-2022 History of Present illness Narrative* Tony Tavares APRN.CNP - 06/11/2022 7:24 AM EDT Subjective HPI Nontoxic-appearing female presents urgent care chief plaint COVID-19 concerns. Duration of symptoms2 days. Associated symptoms body aches chills cough head congestion. States son tested positive forCOVID-19 3 days ago. Presents today for evaluation. Did take a positive rapid COVID home 19 test atwork today. States overall she feels well. States she did have COVID-19 last year. She is not vaccinated. Risk factors cardiomyopathy [place] syndrome BMI 42. Denies any fever productive cough chest pain shortness of breath pleuritic pain hemoptysis syncopal episodes nausea vomiting abdominal pain or change in bowel or bladder habits. Past medical history prescription medication use allergies reviewed. 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 Cardioverted with 150j under sedation DEFIBRILLATOR SURGERY 02/24/2014 ICD, redo WPW & atrial fib ablation EPS: DEFIB. SURGERY 05/16/2021 Exchange of a SamEnrico SQ-RX 1010 pulse generator with a [place]ON PAST SURGICAL HISTORY OF 07/06/2014 WPW ablation PAST SURGICAL HISTORY OF 11/21/2019 MVr, myectomy, PVI, LAAC TYMPANOSTOMY LOCAL/TOPICAL ANESTHESIA Right ALLERGIES Metformin MEDICATIONS apixaban (ELIQUIS) 5 mg tab(s) Take 1 tablet by mouth twice daily. metoprolol succinate ER (TOPROL XL) 25 mg 24 hr tablet Take 1.5 tablets by mouth twice daily with meals. sotalol (BETAPACE) 120 mg tablet Take 1 tablet by mouth twice daily. semaglutide, weight loss, (WEGOVY) 2.4 mg/0.75 mL pen injector Inject 0.75 mL subcutaneously one time a week. aspirin 81 mg chewable tablet Take 1 tablet by mouth once daily. FAMILY HISTORY Problem Relation Age of Onset Diabetes Mother Hypertension Mother Thyroid Mother Coronary Artery Disease Mother CABG 2012 Lipids Father Heart Maternal Grandmother OR age 72 None Maternal Grandfather age 46-"suddenly" Alcohol/Drug Paternal Grandfather ETOH Diabetes Maternal Aunt Diabetes Maternal Uncle Diabetes Brother Heart Sister HOCM s/p ICD Social History Tobacco Use Smoking status: Never Smokeless tobacco: Never Vaping Use Vaping Use: Never used Substance Use Topics Alcohol use: No Drug use: No BP 134/80 Pulse 88 Temp 37.2 C (98.9 F) Resp 16 Wt 125.6 kg (277 lb) LMP 01/06/2012 SpO2 98% BMI 42.12 kg/m Review of Systems Constitutional: Positive for chills and malaise/fatigue. Negative for fever. HENT: Positive for congestion. Negative for ear discharge, ear pain, sinus pain and sore throat. Eyes: Negative for blurred vision, pain, discharge and redness. Respiratory: Positive for cough. Negative for hemoptysis, sputum production, shortness of breath, wheezing and stridor. Cardiovascular: Negative for chest pain. Gastrointestinal: Negative for abdominal pain, diarrhea, nausea and vomiting. Musculoskeletal: Positive for myalgias. Skin: Negative for itching and rash. Neurological: Negative for dizziness and headaches. Objective Physical Exam Constitutional: General: She is not in acute distress. Appearance: She is not diaphoretic. HENT: Head: Normocephalic. Eyes: Conjunctiva/sclera: Conjunctivae normal. Pupils: Pupils are equal, round, and reactive to light. Cardiovascular: Rate and Rhythm: Normal rate and regular rhythm. Heart sounds: Normal heart sounds. Pulmonary: Effort: Pulmonary effort is normal. No tachypnea, accessory muscle usage or respiratory distress. Breath sounds: Normal breath sounds. No stridor. No wheezing, rhonchi or rales. Musculoskeletal: Cervical back: Normal range of motion and neck supple. No rigidity or tenderness. Lymphadenopathy: Cervical: No cervical adenopathy. Skin: General: Skin is warm and dry. Neurological: Mental Status: She is alert and oriented to person, place, and time. ASSESSMENT/PLAN: 1. Suspected COVID-19 virus infection - ICD9: V01.79, ICD10: Z20.822 - 2019 CORONAVIRUS Patient diagnosed with suspected COVID-19. PCR test obtained today. Home quarantining recommended. We did discuss paxlovid and monoclonal antibody therapy. At this time patient does not wish to pursue COVID-19 treatments. Patient was educated on supportive therapies. Patient will follow up with prim thoreau care provider as needed. Patient was instructed to immediately proceed to emergency room for any new, worsening, or symptoms lasting longer than anticipated. The patient's clinical presentation is otherwise unremarkable at this time. Based on exam and clinical finding, the patient is stable for discharge. Plan of care was discussed with patient. Patient verbalizes understanding and agrees to plan of care. This note was generated using Coradiant software. It may contain errors in wording, punctuation, or spelling. Tony Tavares APRN.GENIE documented in this encounterLima City Hospital07-19-2022 Miscellaneous Notes* Telephone Encounter - Basiliayuan Calles [facility] - 04/22/2022 8:14 AM EDT Call from pharmacy requesting refill. Pending Prescriptions Disp Refills APIXABAN 5 MG TABLET 60 tablet 3 Sig: Take 1 tablet by mouth twice daily. OSITO: No Patient last seen 01/27/2020 [facility] Electronically signed by [facility] Holden Bainbridgepercy [facility] at 04/22/2022 8:14 AM EDT documented in this encounterLima City Hospital05-19-2022 Miscellaneous Notes* [facility] 8:12 AM EDT Call from patient e-mail requesting refill. Pending Prescriptions Disp Refills METOPROLOL SUCCINATE ER 25 MG TABLET,EXTENDED RELEASE 24 HR 60 tablet 5 Sig: Take 1.5 tablets by mouth twice daily with meals. OSITO: No Patient last seen 01/27/2020 [facility] documented in this encounterLima City Hospital05-05-2022 History of Present illness Narrative* Kylah Palma PA-C - 02/06/2022 2:40 PM EDT 41 year old female with c/o her for routine follow up Paroxysmal atrial fibrillation (hcc) (primary encounter diagnosis) Dilated cardiomyopathy (hcc) Acute on chronic diastolic (congestive) heart failure (hcc) Icd (implantable cardioverter-defibrillator) in place Hocm (hypertrophic obstructive cardiomyopathy) (hcc) Junfa-jqiiqcouo-vbdlb (wpw) syndrome Left bundle branch block Ventricular tachyarrhythmia (hcc) Palpitation Chronic anticoagulation Cardiovascular interval hx: Doing really well. Has been seeing preventive cardiology and was placed on semaglutide which is significantly helped weight loss. Patient is exercising routinely and feels that she is gaining strength and durability. 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 03/19/21 echo: LV size and LV SF WNL, grade 2 left ventricular diastolic dysfunction, ejection fraction 72%, no abnormal wall motion. RV size and RV SF WNL, incomplete tricuspid regurgitation with RVSP estimated 28 mmHg, estimated RAP 3 mmHg. LA mildly dilated, normal pulmonary flow, RA normal size with pacer wires evident. At rest, no mitral leaflet S.A.M., mild chordal S.A.M., 1-2+ MR, peak LVOTgradient 6 mmHg. No significant change with Valsalva. 11/22/2019 S/P septal myectomy, MVr, papillary muscle reorientation, PVI, and LAAC (11/22/[address] Pastrana) 09/22/[address] Oneyda Recinos 1st; Dr. Oneyda Plunkett Documentation Coordinator Dr. Gaston Eller HOCM Dr. 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 RV size WNL, RVSP WNL. LA mildly dilated, LVOT gradient 42mHg, with Valsalva 82mmHg poss due to midseptal and papillary Muscle coaptation. HOCM Current meds: Eliquis 5mg twice daily Metoprolol succinate ER 1.5mg twice a day with meals Sotalol 120mg twice daily ASA 81mg chewable tablet Use of NTG: No Chest pain, arm, jaw pain, neck, or upper back pain suggestive of angina: No. SOB: Improving with exercise Dyspnea with exertion: improving orthopnea: No racing or irregular heartbeats: No palpitations: No syncopal sx: No Unexplainable fatigue No Leg swelling: No Nausea: none diaphoresis: No Heartburn: Yes Claudication: No Smoking: No Following Low cholesterol, high fiber diet? Yes If on statin: muscle aches? No If on statin: GI sx or diarrhea? No Additional history seeing preventative cardiology Dr. Whiting Thyroid nodule, cold Elevated tsh Component Latest Ref Rng & Units 09/12/2020 10/24/2020 01/07/2021 12/20/2021 TSH 0.270 - 4.200 mIU/L 4.280 (H) 3.500 2.550 Microsomal Antibody <5.6 IU/mL <1.0 Thyroglobulin Ab <14.4 IU/mL 21.7 (H) Impaired glucose tolerance Class 3 severe obesity due to excess calories without serious comorbidity with body mass index (bmi) of 45.0 to 49.9 in adult (hcc) Semaglutide 2.4mg 0.75ml SC Weekly 54lbs down from peak weight. Component Latest Ref Rng & Units 06/12/2020 08/27/2020 03/19/2021 12/20/2021 Protein, Total 6.3 - 8.0 g/dL 7.4 7.1 Albumin 3.9 - 4.9 g/dL 4.1 4.0 Calcium 8.5 - 10.2 mg/dL 9.7 9.3 Bilirubin, Total 0.2 - 1.3 mg/dL 0.4 0.3 Alkaline Phosphatase 34 - 123 U/L 86 72 AST 13 - 35 U/L 23 25 Glucose 74 - 99 mg/dL 111 (H) 94 BUN 7 - 21 mg/dL 14 17 Creatinine 0.58 - 0.96 mg/dL 0.80 0.80 Sodium 136 - 144 mmol/L 138 137 Potassium 3.7 - 5.1 mmol/L 4.3 4.4 Chloride 97 - 105 mmol/L 104 105 CO2 22 - 30 mmol/L 22 22 Anion Gap 9 - 18 mmol/L 12 10 ALT 7 - 38 U/L 21 23 eGFR- >60 eGFR-All Other Races . >60 eGFR >=60 mL/min/1.73m 95 Cholesterol, Total <200 mg/dL 140 153 Triglyceride <150 mg/dL 126 112 HDL Cholesterol >39 mg/dL 35 (L) 41 LDL Cholesterol <100 mg/dL 80 90 Non HDL Cholesterol <130 mg/dL 105 112 Fasting Time hrs 12 14 VLDL Cholesterol <30 mg/dL 25 22 TC:HDL Ratio <5.10 4.00 3.73 LDL:HDL Ratio <2.54 2.29 2.20 TSH 0.270 - 4.200 mIU/L 4.120 2.550 Vaginal high risk hpv dna test positive Ligia Lindo. HISTORIES FAMILY HISTORY Problem Relation Age of Onset Diabetes Mother Hypertension Mother Thyroid Mother Coronary Artery Disease Mother CABG 2012 Lipids Father Heart Maternal Grandmother OR age 72 None Maternal Grandfather age 46-"suddenly" Alcohol/Drug Paternal Grandfather ETOH Diabetes Maternal Aunt Diabetes Maternal Uncle Diabetes Brother Heart Sister HOCM s/p ICD PAST MEDICAL HISTORY Diagnosis Date Atrial fibrillation (HCC) CHADS score 0 Cardiomyopathy (HCC) 02/24/14 Family history of hypertrophic cardiomyopathy 01/18/2014 Impaired glucose tolerance 01/21/2011 Left bundle branch block Obesity Ventricular tachyarrhythmia (HCC) 02/2014 Fjqvw-Yevshsdeh-Efpix (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 Cardioverted with 150j under sedation DEFIBRILLATOR SURGERY 02/24/2014 ICD, redo WPW & atrial fib ablation EPS: DEFIB. SURGERY 05/16/2021 Exchange of a [employer] SQ-RX 1010 pulse generator with a [place] PAST SURGICAL HISTORY OF 07/06/2014 WPW ablation PAST SURGICAL HISTORY OF 11/21/2019 MVr, myectomy, PVI, LAAC TYMPANOSTOMY LOCAL/TOPICAL ANESTHESIA Right Social History Tobacco Use Smoking status: Never Smoker Smokeless tobacco: Never Used Vaping Use Vaping Use: Never used Substance Use Topics Alcohol use: No Drug use: No ACTIVE PROBLEM LIST Impaired Glucose Tolerance Vaginal High Risk Hpv Dna Test Positive Palpitation Hocm (Hypertrophic Obstructive Cardiomyopathy) (Hcc) Obesity, Class Iii, Bmi 40-49.9 (Morbid Obesity) (Hcc) Atrial Fibrillation (Hcc) Ventricular Tachyarrhythmia (Hcc) Ekddr-Vgchacxfk-Mummg (Wpw) Syndrome Thyroid Nodule, Cold Icd (Implantable Cardioverter-Defibrillator) in Place Pre-Op Testing Discharge Planning Issues Clinical summary Acute On Chronic Diastolic (Congestive) Heart Failure (Hcc) Summary Cardiomyopathy (Hcc) Left Bundle Branch Block Paroxysmal Atrial Fibrillation (Hcc) Class 3 Severe Obesity Due to Excess Calories Without Serious Comorbidity With Body Mass Index (Bmi) of 45.0 to 49.9 in Adult (Hcc) Current Outpatient Medications Medication Sig Dispense Refill semaglutide, weight loss, (WEGOVY) 2.4 mg/0.75 mL pen injector Inject 0.75 mL subcutaneously one time a week. 9 mL 3 ELIQUIS 5 mg tab(s) TAKE 1 TABLET BY MOUTH TWICE DAILY 60 tablet 3 metoprolol succinate ER (TOPROL XL) 25 mg 24 hr tablet Take 1.5 tablets by mouth twice daily with meals. 60 tablet 3 sotalol (BETAPACE) 120 mg tablet Take 1 tablet by mouth twice daily. 180 tablet 1 aspirin 81 mg chewable tablet Take 1 tablet by mouth once daily. 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 Alert and oriented all spheres. Normal affect and cognition. Speech normal. No deficits to learning or comprehension. Mood is definitely improved. Skin warm, dry, pink to lips and nailbeds. Normal turgor. Respirations regular and unlabored. HEENT: NCAT. No scleral icterus or conjunctival injection. TM's clear. Nose and oropharynx free from injection or lesion. Oral membranes moist and pink. No cervical lymph nodes. Thyroid non-tender, no masses, or enlargement. Carotids pulses 2+/4+ without bruits. No JVD with HOB at 30 degrees. Neck is supple with full range of motion. Chest is normal shape. Lungs are clear to all he with good air exchange through out. HRRR without murmur or gallop. No lifts, heaves, or rubs. Extrem: no clubbing, cyanosis, edema. Distal pulses 2+/4, prompt capillary refill. Extrem: no clubbing or cyanosis. Edema: none. Extremities are warm and pink with prompt capillary refill. ASSESSMENT/PLAN: 1. Paroxysmal atrial fibrillation (HCC) - ICD9: 427.31, ICD10: I48.0 (primary diagnosis) Stable, no recent ER visits which is significant 2. Dilated cardiomyopathy (HCC) - ICD9: 425.4, ICD10: I42.0 Stable 3. Acute on chronic diastolic (congestive) heart failure (HCC) - ICD9: 428.33, 428.0, ICD10: I50.33 No recent episodes or symptoms. 4. ICD (implantable cardioverter-defibrillator) in place - ICD9: V45.02, ICD10: Z95.810 Recent ICD interrogation demonstrates proper functioning 5. HOCM (hypertrophic obstructive cardiomyopathy) (HCC) - ICD9: 425.11, ICD10: I42.1 Stable cardiomyopathy, following with preventive cardiology making significant gains with exercise and strengthening 6. Oxgzf-Tbopvpyvg-Lbelz (WPW) syndrome - ICD9: 426.7, ICD10: I45.6 Stable 7. Left bundle branch block - ICD9: 426.3, ICD10: I44.7 Stable 8. Ventricular tachyarrhythmia (HCC) - ICD9: 427.1, ICD10: I47.2 No recent symptoms indicating arrhythmia 9. Palpitation - ICD9: 785.1, ICD10: R00.2 No recent symptoms 10. Thyroid nodule, cold - ICD9: 241.0, ICD10: E04.1 Nodules followed over 2 years, last ultrasound 12/10/2016 demonstrated nodule smaller. 11. Impaired glucose tolerance - ICD9: 790.22, ICD10: R73.02 Resolution of hyperglycemia 12. Class 3 severe obesity due to excess calories without serious comorbidity with body mass index (BMI) of 45.0 to 49.9 in adult (HCC) - ICD9: 278.01, V85.42, ICD10: E66.01, Z68.42 Weight decreasing and Continue current medication regimen 13. Elevated TSH - ICD9: 794.5, ICD10: R79.89 Well-controlled 14. Chronic anticoagulation - ICD9: V58.61, ICD10: Z79.01 Stable, normal CBC 15. Vaginal high risk HPV DNA test positive - ICD9: 795.15, ICD10: R87.811 Following with [employer] carefully 16. Patient under care of multiple providers - ICD9: V49.89, ICD10: Z78.9 Recorded under problem list. Kylah Palma PA-C documented [facility] Instructions* Patient Instructions* Fawn Whiting APRN.CNP - 01/23/2022 9:34 AM EDT your prior authorization for amie will on 06/20/22 call our office at [phone] or send [employer] message with any questions or concerns documented in this encounterL[facility] History of Present illness Narrative* Fawn Whiting APRN.REGISTERED DIET TECHNICIAN - 01/23/2022 9:16 AM EDT Images from the original note were not included. [facility] [place] [facility] Department of Cardiovascular Medicine SECTION OF PREVENTIVE CARDIOLOGY 01/23/2022 Chavo Tom CURRENT MEDS: Current Outpatient Medications Medication Sig semaglutide, weight loss, (WEGOVY) 2.4 mg/0.75 mL pen injector Inject 0.75 mL subcutaneously one time a week. ELIQUIS 5 mg tab(s) TAKE 1 TABLET BY MOUTH TWICE DAILY metoprolol succinate ER (TOPROL XL) 25 mg 24 hr tablet Take 1.5 tablets by mouth twice daily with meals. sotalol (BETAPACE) 120 mg tablet Take 1 tablet by mouth twice daily. metFORMIN (GLUCOPHAGE) 500 mg tablet Take 2 tablets by mouth daily with breakfast. RESTASIS 0.05 % ophthalmic emulsion Use 1 Drop in both eyes twice daily. aspirin 81 mg chewable tablet Take 1 tablet by mouth once daily. Current Facility-Administered Medications Medication Dose Route Frequency sodium chloride 0.9 % (flush) 10 mL (BD POSIFLUSH) 10 mL INTRAVENOUS DIRECTED PRN ALLERGIES: ALLERGIES No Known Allergies CHIEF COMPLAINT: Chavo Tom is a 41 year old White female seen today. No chief complaint on file. HISTORY OF PRESENT CARDIOVASCULAR ILLNESS: Patient presents for ongoing management of cardiovascular risk factors. Denies Chest discomfort, SOB at rest, MORENO, lightheadedness, dizziness, diaphoresis, N/V, orthopnea,PND, palpitations or pedal edema. CARDIAC RISK FACTORS: Exercise: Three to five times per week Family History of CAD: Negative walks at least 3 nights/week (8 blocks) STATIN INTOLERANCE: Adverse Effect History of Statin Intolerance:: No Current Statin Freq: None Intolerance to Atorvastatin: No FAMILY AND SOCIAL HISTORY Lifestyle Tobacco Use: Never Alcohol Use: No PHYSICAL EXAMINATION Vital Signs and General Appearance LMP 01/06/2012 No weight on file for this encounter. PHYSICAL EXAMINATION: General appearance: Well appearing, alert, in no acute distress, well-hydrated, well nourished., well appearing, alert, in no acute distress and well-hydrated, well nourished Carotid Pulses: Left:2+, Right: 2+, Bruit: No Lungs: lungs clear to auscultation no wheezing or rhonchi Heart: regular rate and rythm without murmur, normal S1 and S2 Lower Extremities Pulses: Right Posterior Tibial: 2+, Left Posterior Tibial: 2+, Right Dorsalis Pedis: 2+, Left Dorsalis Pedis:2+, Edema: none noted Clinical Test Results Last ECHO Result Conclusion ECHO Collected: 03/19/2021 10:16 AM (Final result) Impression: CONCLUSIONS: - Technically difficult exam due to body habitus. - Exam indication: Re-evaluation of Hypertensive heart disease without change in clinical status - The left ventricle is normal in size. Left ventricular systolic function is normal. EF = 72 5% (2D biplane) Grade II left ventricular diastolic dysfunction. - The right ventricle is normal in size. Right ventricular systolic function is normal. - The left atrial cavity is mildly dilated. At rest, there is no mitral leaflet ALDO, there is mild chordal ALDO, 1+2+ MR, peak LVOT gradient 6 mmHg. There was no signficant change with Valsalva (peak LVOT gradients 4 mmHg). no amyl was given - Exam was compared with the prior CC echocardiographic exam performed on 04/27/2020 There is no significant change. * * * Final * * * Complete Results Last EKG Result Conclusion ECG COMPLETE Collected: 05/16/2021 10:40 AM (Final result) Impression: NORMAL SINUS RHYTHM COMPLETE LEFT BUNDLE BRANCH BLOCK ABNORMAL ECG Confirmed by JU PHIPPS MD ([id number]) on 05/28/2021 1:05:44 PM Complete Results Ejection Fraction: Ejection Fraction: Normal (>50%) Lab Results: Cholesterol, Total Date Value Ref Range Status 12/20/2021 153 <200 mg/dL Final Comment: <200 mg/dL, Desirable 200-239 mg/dL, Borderline high >239 mg/dL, High Triglyceride Date Value Ref Range Status 12/20/2021 112 <150 mg/dL Final Comment: <150 mg/dL, Normal 150-199 mg/dL, Borderline high 200-499 mg/dL, High >499 mg/dL, Very high HDL Cholesterol Date Value Ref Range Status 12/20/2021 41 >39 mg/dL Final Comment: 40-59 mg/dL, Acceptable >59 mg/dL, High: Negative risk factor for coronary heart disease <40 mg/dL, Low: Positive risk factor for coronary heart disease LDL Cholesterol Date Value Ref Range Status 12/20/2021 90 <100 mg/dL Final Comment: <100 mg/dL, Optimal 100-129 mg/dL, Near optimal/above optimal 130-159 mg/dL, Borderline high 160-189 mg/dL, High >189 mg/dL, Very high Secondary prevention optimal LDL Cholesterol levels are recommended to be < 70 mg/dL Hemoglobin A1C Date Value Ref Range Status 01/07/2021 6.0 (H) 4.3 - 5.6 % Final Comment: [place] [employer] Association guidelines indicate that patients with HgbA1c in the range 5.7-6.4% are at increased risk for development of diabetes, and intervention by lifestyle modification may be beneficial. HgbA1c greater or equal to 6.5% is considered diagnostic of diabetes. ALT Date Value Ref Range Status 12/20/2021 23 7 - 38 U/L Final Glucose Date Value Ref Range Status 12/20/2021 94 74 - 99 mg/dL Final Comment: The [place] Diabetes Association (ADA) provides guidance for cutoff values for fasting glucose andrandom glucose. The ADA defines fasting as no caloric intake for at least 8 hours. Fasting plasma glucose results between 100 to 125 mg/dL indicate increased risk for diabetes (prediabetes). Fasting plasma glucose results greater than or equal to 126 mg/dL meet the criteria for diagnosis of diabetes. In the absence of unequivocal hyperglycemia, results should be confirmed by repeat testing. In a patient with classic symptoms of hyperglycemia or hyperglycemic crisis, random plasma glucose results greater than or equal to 200 mg/dL meet the criteria for diagnosis of diabetes. Reference: Standards of Medical Care in Diabetes 2016, [place] [employer]. Diabetes Care. 2016.39(Suppl 1). TSH Date Value Ref Range Status 12/20/2021 2.550 0.270 - 4.200 mIU/L Final Comment: If the patient is , TSH reference range varies by gestational period: First Trimester (weeks 9-12): 0.180-2.990 mIU/L Second Trimester: 0.110-3.980 mIU/L Third Trimester: 0.480-4.710 mIU/L Ziggy Murillo et al. A Practical Approach for the Verifications and Determination of Site- and Trimester-Specific Reference Intervals for Thyroid Function tests in . Thyroid, 2019:29:3:412-420.Live Shaw, et al. 2017 Guidelines of the [place] Thyroid Association for the Diagnosis and Management of Thyroid Disease during and the . Thyroid, 2017:27:3:315-389. Creatinine Date Value Ref Range Status 12/20/2021 0.80 0.58 - 0.96 mg/dL Final Potassium Date Value Ref Range Status 12/20/2021 4.4 3.7 - 5.1 mmol/L Final NT Pro BNP Date Value Ref Range Status 04/27/2020 152 (H) <125 pg/mL Final Patient Entered Questionnaire Scores PHQ-9 03/16/2021 02/21/2020 12/03/2016 Score 5 3 8 JANE - 7 SCORES 03/16/2021 02/21/2020 JANE-7 Score 4 2 PROMIS Global Health - (T-Scores - the mean of general population = 50. Five points is a clinicallymeaningful difference.) 10/13/2021 09/13/2021 06/22/2021 Physical T-Score 39.8 47.7 44.9 Mental T-Score 45.8 48.3 - IMPRESSION: In summary, Ms. Tom is a 41 year old female who was referred to the [facility] because of hypertrophic cardiomyopathy and status post septal myectomy, mitral valve repair, papillary muscle reorientation 11/24, history of syncope and status post ICD 2013, WPW and status post ablation 2013, paroxysmal atrial fibrillation and status post ablation and LAAC 11/24,class III obesity, prediabetes PLAN: The results of this assessment were discussed with the patient. We have mutually agreed upon the following plans and goals: Paroxysmal Atrial Fibrillation: status post ablation and LAAC 11/06. Currently on sotalol 120 mg twice daily and apixaban PLAN: -continue to follow with Dr Recinos Cholesterol: Cholesterol, Total 140 03/19/2021 Cholesterol, Total 187 01/27/2020 Triglyceride 126 03/19/2021 Triglyceride 295 01/27/2020 HDL Cholesterol 35 03/19/2021 HDL Cholesterol 36 01/27/2020 LDL Chol, [place] 80 03/19/2021 LDL Chol, [place] 92 01/27/2020 PLAN: -Limit saturated fats, red meat, processed foods, fried foods, baked goods Pre-diabetes: HBA1C, [place] 6.0 01/07/2021 HBA1C, [place] 5.7 04/27/2020 HBA1C, [place] 5.6 11/25/2019 PLAN: -continue metformin 1000mg daily Exercise/Weight/Nutrition: She has 57lbs weight loss since 10/2020 on wegovy she continues intermittent fasting - limits eating to betwee 9am-7pm stopped drinking pop, smaller portion sizes, limits sugar intake, drinks water throughout the day attends the gym 3 days per week, treadmill for at least an hour, to also start weight training PLAN: -continue wegovy 2.4 mg once weekly. -continue routine cardio exercise, goal 3-5x/week, 30-45 mins per session -Weight loss goal is 5-10lbs over the next several months (slow/consistent weight loss) -Follow a Mediterranean diet: Choose plenty of whole or plant based foods-fruit, vegetables, whole grains, and nuts. Choose monounsaturated fat from olive oil, olives, nuts, and avocado. [place] 3 fats are another heart healthy fat found in tuna, salmon, flaxseed, and walnuts. Limit foods high in sodium, saturated fat, and cholesterol. -Limit portion sizes OTHER: none HEALTH MAINTENANCE: Please follow-up with your Primary Care Physician and review your health maintenance to ensure it is up to date. MEDICATION CHANGES: none Physicians and Nurse Practitioners work closely together in Preventive Cardiology. If at any time you would like to see a Physician for a visit, please let us know. Last visit with [facility] physician: Dr Vasquez 02/19/21 AMBULATORY PATIENT EDUCATION Topic: Exercise, Nutrition and Medications/Supplements Instruction Provided To: Patient Cognitive Ability: Alert/Oriented Barriers: None Motivation to Learn: Interested Methods of Instruction: Verbal instruction and/or handouts. Patient Leans Best By: Multiple Methods Patient Verbalized: Understanding I personally spent 25 minutes in total time involved in the management and care of this patient. Fawn Whiting APRN.REGISTERED DIET TECHNICIAN documented in this encounter[facility]02-[facility] History of Present illness Narrative* Elida Malik (Rt), Elsa - 11/19/2020 2:10 PM EST Radiology Service Progress Note PATIENT NAME: Chavo Tom DATE OF SERVICE: November 19, 2020 TIME: 2:09 PM PATIENT IDENTITY VERIFICATION COMPLETED USING TWO (2) IDENTIFIERS: Name and Date of confirmedby patient verbally. FALL SCREENING: Has the patient had 2 falls in the last year or 1 fall with injury or currently using an Ambulatory Assistive Device (Walker, Cane, Wheelchair, Crutches, etc.)? No PATIENT GENDER DATA: Female. status: : No status: NO. PATIENT RELEVANT IMPLANT DATA REVIEWED: Yes RADIOLOGY DEPARTMENT: General X-ray: Exam(s) Completed: Upper Extremity X- Ray(s): Wrist, left : PERIPHERAL IV DATA: Not applicable SIGNED BY: RT Jonathan November 19, 2020 2:09 PM documented in this encounterL[facility]02-18-[facility] History of Past illness Narrative* Problem Noted Date Resolved Date Stress hyperglycemia 11/22/2019 11/22/2019 Overview: History/Assessment: BG controlled Plan: Start SSI coverage Obesity, Class II, BMI 35-39.9 11/22/2019 0 11/22/2019 Postoperative pain 11/21/2019 11/22/2019 Overview: History: No PMH of chronic pain. 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 Atelectasis 11/21/2019 11/22/2019 Overview: History: Postoperative Assessment: Grade I Airway on 1L NC Plan: OOB, wean o2, and pep Family history of hypertrophic cardiomyopathy 09/22/2018 Irregular menstrual cycle 11/05/20112011 Placenta previa without hemorrhage, antepartum 1 10/16/2008 Supervision of normal first 03/11/2008 03/27/2009 documented as of this encounter (statuses as of 01/13/2022) [facility] of Past illness Narrative* Problem Noted Date Resolved Date Stress hyperglycemia 11/22/2019 11/22/2019 Overview: History/Assessment: BG controlled Plan: Start SSI coverage Obesity, Class II, BMI 35-39.9 11/22/2019 0 11/22/2019 Postoperative pain 11/21/2019 11/22/2019 Overview: History: No PMH of chronic pain. 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 Atelectasis 11/21/2019 11/22/2019 Overview: History: Postoperative Assessment: Grade I Airway on 1L NC Plan: OOB, wean o2, and pep Family history of hypertrophic cardiomyopathy 09/22/2018 Irregular menstrual cycle 11/05/20112011 Placenta previa without hemorrhage, antepartum 1 10/16/2008 Supervision of normal first 03/11/2008 03/27/2009 documented as of this encounter (statuses as of 01/20/2022) [facility] of Past illness Narrative* Problem Noted Date Resolved Date Stress hyperglycemia 11/22/2019 11/22/2019 Overview: History/Assessment: BG controlled Plan: Start SSI coverage Obesity, Class II, BMI 35-39.9 11/22/2019 0 11/22/2019 Postoperative pain 11/21/2019 11/22/2019 Overview: History: No PMH of chronic pain. 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 Atelectasis 11/21/2019 11/22/2019 Overview: History: Postoperative Assessment: Grade I Airway on 1L NC Plan: OOB, wean o2, and pep Family history of hypertrophic cardiomyopathy 09/22/2018 Irregular menstrual cycle 11/05/20112011 Placenta previa without hemorrhage, antepartum 1 10/16/2008 Supervision of normal first 03/11/2008 03/27/2009 documented as of this encounter (statuses as of 01/23/2022) [facility] of Past illness Narrative* Problem Noted Date Resolved Date Stress hyperglycemia 11/22/2019 11/22/2019 Overview: History/Assessment: BG controlled Plan: Start SSI coverage Obesity, Class II, BMI 35-39.9 11/22/2019 0 11/22/2019 Postoperative pain 11/21/2019 11/22/2019 Overview: History: No PMH of chronic pain. 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 Atelectasis 11/21/2019 11/22/2019 Overview: History: Postoperative Assessment: Grade I Airway on 1L NC Plan: OOB, wean o2, and pep Family history of hypertrophic cardiomyopathy 09/22/2018 Irregular menstrual cycle 11/05/20112011 Placenta previa without hemorrhage, antepartum 1 10/16/2008 Supervision of normal first 03/11/2008 03/27/2009 documented as of this encounter (statuses as of 02/06/2022) [facility] of Past illness Narrative* Problem Noted Date Resolved Date Stress hyperglycemia 11/22/2019 11/22/2019 Overview: History/Assessment: BG controlled Plan: Start SSI coverage Obesity, Class II, BMI 35-39.9 11/22/2019 0 11/22/2019 Postoperative pain 11/21/2019 11/22/2019 Overview: History: No PMH of chronic pain. 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 Atelectasis 11/21/2019 11/22/2019 Overview: History: Postoperative Assessment: Grade I Airway on 1L NC Plan: OOB, wean o2, and pep Family history of hypertrophic cardiomyopathy 09/22/2018 Irregular menstrual cycle 11/05/20112011 Placenta previa without hemorrhage, antepartum 1 10/16/2008 Supervision of normal first 03/11/2008 03/27/2009 documented as of this encounter (statuses as of 02/18/2022) [facility] of [facility] illness Narrative* Problem Noted Date Resolved Date Stress hyperglycemia 11/22/2019 11/22/2019 Overview: History/Assessment: BG controlled Plan: Start SSI coverage Obesity, Class II, BMI 35-39.9 11/22/2019 0 11/22/2019 Postoperative pain 11/21/2019 11/22/2019 Overview: History: No PMH of chronic pain. 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 Atelectasis 11/21/2019 11/22/2019 Overview: History: Postoperative Assessment: Grade I Airway on 1L NC Plan: OOB, wean o2, and pep Family history of hypertrophic cardiomyopathy 09/22/2018 Irregular menstrual cycle 11/05/20112011 Placenta previa without hemorrhage, antepartum 1 10/16/2008 Supervision of normal first 03/11/2008 03/27/2009 documented as of this encounter (statuses as of 02/20/2022) [facility] of [facility] illness Narrative* Problem Noted Date Resolved Date Stress hyperglycemia 11/22/2019 11/22/2019 Overview: History/Assessment: BG controlled Plan: Start SSI coverage Obesity, Class II, BMI 35-39.9 11/22/2019 0 11/22/2019 Postoperative pain 11/21/2019 11/22/2019 Overview: History: No PMH of chronic pain. 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 Atelectasis 11/21/2019 11/22/2019 Overview: History: Postoperative Assessment: Grade I Airway on 1L NC Plan: OOB, wean o2, and pep Family history of hypertrophic cardiomyopathy 09/22/2018 Irregular menstrual cycle 11/05/20112011 Placenta previa without hemorrhage, antepartum 1 10/16/2008 Supervision of normal first 03/11/2008 03/27/2009 documented as of this encounter (statuses as of 04/22/2022) [facility] of [facility] illness Narrative* Problem Noted Date Resolved Date Stress hyperglycemia 11/22/2019 11/22/2019 Overview: History/Assessment: BG controlled Plan: Start SSI coverage Obesity, Class II, BMI 35-39.9 11/22/2019 0 11/22/2019 Postoperative pain 11/21/2019 11/22/2019 Overview: History: No PMH of chronic pain. 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 Atelectasis 11/21/2019 11/22/2019 Overview: History: Postoperative Assessment: Grade I Airway on 1L NC Plan: OOB, wean o2, and pep Family history of hypertrophic cardiomyopathy 09/22/2018 Irregular menstrual cycle 11/05/20112011 Placenta previa without hemorrhage, antepartum 1 10/16/2008 Supervision of normal first 03/11/2008 03/27/2009 documented as of this encounter (statuses as of 04/22/2022) [facility] Past illness Narrative* Problem Noted Date Resolved Date Stress hyperglycemia 11/22/2019 11/22/2019 Overview: History/Assessment: BG controlled Plan: Start SSI coverage Obesity, Class II, BMI 35-39.9 11/22/2019 0 11/22/2019 Postoperative pain 11/21/2019 11/22/2019 Overview: History: No PMH of chronic pain. 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 Atelectasis 11/21/2019 11/22/2019 Overview: History: Postoperative Assessment: Grade I Airway on 1L [place] Plan: OOB, wean o2, and pep Family history of hypertrophic cardiomyopathy 09/22/2018 Irregular menstrual cycle 11/05/20112011 Placenta previa without hemorrhage, antepartum 1 10/16/2008 Supervision of normal first 03/11/2008 03/27/2009 documented as of this encounter (statuses as of 04/22/2022) [facility]02-18-2020 History of Past illness Narrative* Problem Noted Date Resolved Date Stress hyperglycemia 11/22/2019 11/22/2019 Overview: History/Assessment: BG controlled Plan: Start SSI coverage Obesity, Class II, BMI 35-39.9 11/22/2019 0 11/22/2019 Postoperative pain 11/21/2019 11/22/2019 Overview: History: No PMH of chronic pain. 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 Atelectasis 11/21/2019 11/22/2019 Overview: History: Postoperative Assessment: Grade I Airway on 1L [place] Plan: OOB, wean o2, and pep Family history of hypertrophic cardiomyopathy 09/22/2018 Irregular menstrual cycle 11/05/20112011 Placenta previa without hemorrhage, antepartum 1 10/16/2008 Supervision of normal first 03/11/2008 03/27/2009 documented as of this encounter (statuses as of 05/20/2022) [facility]2020 History of Past illness Narrative* Problem Noted Date Resolved Date Stress hyperglycemia 11/22/2019 11/22/2019 Overview: History/Assessment: BG controlled Plan: Start SSI coverage Obesity, Class II, BMI 35-39.9 11/22/2019 0 11/22/2019 Postoperative pain 11/21/2019 11/22/2019 Overview: History: No PMH of chronic pain. 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 Atelectasis 11/21/2019 11/22/2019 Overview: History: Postoperative Assessment: Grade I Airway on 1L [place] Plan: OOB, wean o2, and pep Family history of hypertrophic cardiomyopathy 09/22/2018 Irregular menstrual cycle 11/05/20112011 Placenta previa without hemorrhage, antepartum 1 10/16/2008 Supervision of normal first 03/11/2008 03/27/2009 documented as of this encounter (statuses as of 06/11/2022) [facility]2020 History of Past illness Narrative* Problem Noted Date Resolved Date Stress hyperglycemia 11/22/2019 11/22/2019 Overview: History/Assessment: BG controlled Plan: Start SSI coverage Obesity, Class II, BMI 35-39.9 11/22/2019 0 11/22/2019 Postoperative pain 11/21/2019 11/22/2019 Overview: History: No PMH of chronic pain. 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 Atelectasis 11/21/2019 11/22/2019 Overview: History: Postoperative Assessment: Grade I Airway on 1L [place] Plan: OOB, wean o2, and pep Family history of hypertrophic cardiomyopathy 09/22/2018 Irregular menstrual cycle 11/05/20112011 Placenta previa without hemorrhage, antepartum 1 10/16/2008 Supervision of normal first 03/11/2008 03/27/2009 documented as of this encounter (statuses as of 06/12/2022) [facility]2020 History of Past illness Narrative* Problem Noted Date Resolved Date Stress hyperglycemia 11/22/2019 11/22/2019 Overview: History/Assessment: BG controlled Plan: Start SSI coverage Obesity, Class II, BMI 35-39.9 11/22/2019 0 11/22/2019 Postoperative pain 11/21/2019 11/22/2019 Overview: History: No PMH of chronic pain. 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 Atelectasis 11/21/2019 11/22/2019 Overview: History: Postoperative Assessment: Grade I Airway on 1L [place] Plan: OOB, wean o2, and pep Family history of hypertrophic cardiomyopathy 09/22/2018 Irregular menstrual cycle 11/05/20112011 Placenta previa without hemorrhage, antepartum 1 10/16/2008 Supervision of normal first 03/11/2008 03/27/2009 documented as of this encounter (statuses as of 06/12/2022) [facility] History of Past illness Narrative* Problem Noted Date Resolved Date Stress hyperglycemia 11/22/2019 11/22/2019 Overview: History/Assessment: BG controlled Plan: Start SSI coverage Obesity, Class II, BMI 35-39.9 11/22/2019 0 11/22/2019 Postoperative pain 11/21/2019 11/22/2019 Overview: History: No PMH of chronic pain. 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 Atelectasis 11/21/2019 11/22/2019 Overview: History: Postoperative Assessment: Grade I Airway on 1L [place] Plan: OOB, wean o2, and pep Family history of hypertrophic cardiomyopathy 09/22/2018 Irregular menstrual cycle 11/05/20112011 Placenta previa without hemorrhage, antepartum 1 10/16/2008 Supervision of normal first 03/11/2008 03/27/2009 documented as of this encounter (statuses as of 07/17/2022) [facility] History of Past illness Narrative* Problem Noted Date Resolved Date Stress hyperglycemia 11/22/2019 11/22/2019 Overview: History/Assessment: BG controlled Plan: Start SSI coverage Obesity, Class II, BMI 35-39.9 11/22/2019 0 11/22/2019 Postoperative pain 11/21/2019 11/22/2019 Overview: History: No PMH of chronic pain. 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 Atelectasis 11/21/2019 11/22/2019 Overview: History: Postoperative Assessment: Grade I Airway on 1L [place] Plan: OOB, wean o2, and pep Family history of hypertrophic cardiomyopathy 09/22/2018 Irregular menstrual cycle 11/05/20112011 Placenta previa without hemorrhage, antepartum 1 10/16/2008 Supervision of normal first 03/11/2008 03/27/2009 documented as of this encounter (statuses as of 07/21/2022) [facility] History of Past illness Narrative* Problem Noted Date Resolved Date Stress hyperglycemia 11/22/2019 11/22/2019 Overview: History/Assessment: BG controlled Plan: Start SSI coverage Obesity, Class II, BMI 35-39.9 11/22/2019 0 11/22/2019 Postoperative pain 11/21/2019 11/22/2019 Overview: History: No PMH of chronic pain. 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 Atelectasis 11/21/2019 11/22/2019 Overview: History: Postoperative Assessment: Grade I Airway on 1L [place] Plan: OOB, wean o2, and pep Family history of hypertrophic cardiomyopathy 09/22/2018 Irregular menstrual cycle 11/05/20112011 Placenta previa without hemorrhage, antepartum 1 10/16/2008 Supervision of normal first 03/11/2008 03/27/2009 documented as of this encounter (statuses as of 08/05/2022) [facility] History of Past illness Narrative* Problem Noted Date Resolved Date Stress hyperglycemia 11/22/2019 11/22/2019 Overview: History/Assessment: BG controlled Plan: Start SSI coverage Obesity, Class II, BMI 35-39.9 11/22/2019 0 11/22/2019 Postoperative pain 11/21/2019 11/22/2019 Overview: History: No PMH of chronic pain. 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 Atelectasis 11/21/2019 11/22/2019 Overview: History: Postoperative Assessment: Grade I Airway on 1L [place] Plan: OOB, wean o2, and pep Family history of hypertrophic cardiomyopathy 09/22/2018 Irregular menstrual cycle 11/05/20112011 Placenta previa without hemorrhage, antepartum 1 10/16/2008 Supervision of normal first 03/11/2008 03/27/2009 documented as of this encounter (statuses as of 08/07/2022) [facility] History of Past illness Narrative* Problem Noted Date Resolved Date Stress hyperglycemia 11/22/2019 11/22/2019 Overview: History/Assessment: BG controlled Plan: Start SSI coverage Obesity, Class II, BMI 35-39.9 11/22/2019 0 11/22/2019 Postoperative pain 11/21/2019 11/22/2019 Overview: History: No PMH of chronic pain. 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 Atelectasis 11/21/2019 11/22/2019 Overview: History: Postoperative Assessment: Grade I Airway on 1L [place] Plan: OOB, wean o2, and pep Family history of hypertrophic cardiomyopathy 09/22/2018 Irregular menstrual cycle 11/05/20112011 Placenta previa without hemorrhage, antepartum 1 10/16/2008 Supervision of normal first 03/11/2008 03/27/2009 documented as of this encounter (statuses as of 09/10/2022) [facility]2020 History of Past illness Narrative* Problem Noted Date Resolved Date Stress hyperglycemia 11/22/2019 11/22/2019 Overview: History/Assessment: BG controlled Plan: Start SSI coverage Obesity, Class II, BMI 35-39.9 11/22/2019 0 11/22/2019 Postoperative pain 11/21/2019 11/22/2019 Overview: History: No PMH of chronic pain. 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 Atelectasis 11/21/2019 11/22/2019 Overview: History: Postoperative Assessment: Grade I Airway on 1L [place] Plan: OOB, wean o2, and pep Family history of hypertrophic cardiomyopathy 09/22/2018 Irregular menstrual cycle 11/05/20112011 Placenta previa without hemorrhage, antepartum 1 10/16/2008 Supervision of normal first 03/11/2008 03/27/2009 documented as of this encounter (statuses as of 09/10/2022) [facility] History of Past illness Narrative* Problem Noted Date Resolved Date Stress hyperglycemia 11/22/2019 11/22/2019 Overview: History/Assessment: BG controlled Plan: Start SSI coverage Obesity, Class II, BMI 35-39.9 11/22/2019 0 11/22/2019 Postoperative pain 11/21/2019 11/22/2019 Overview: History: No PMH of chronic pain. 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 Atelectasis 11/21/2019 11/22/2019 Overview: History: Postoperative Assessment: Grade I Airway on 1L [place] Plan: OOB, wean o2, and pep Family history of hypertrophic cardiomyopathy 09/22/2018 Irregular menstrual cycle 11/05/20112011 Placenta previa without hemorrhage, antepartum 1 10/16/2008 Supervision of normal first 03/11/2008 03/27/2009 documented as of this encounter (statuses as of 09/22/2022) [facility] History of Past illness Narrative* Problem Noted Date Resolved Date Stress hyperglycemia 11/22/2019 11/22/2019 Overview: History/Assessment: BG controlled Plan: Start SSI coverage Obesity, Class II, BMI 35-39.9 11/22/2019 0 11/22/2019 Postoperative pain 11/21/2019 11/22/2019 Overview: History: No PMH of chronic pain. 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 Atelectasis 11/21/2019 11/22/2019 Overview: History: Postoperative Assessment: Grade I Airway on 1L [place] Plan: OOB, wean o2, and pep Family history of hypertrophic cardiomyopathy 09/22/2018 Irregular menstrual cycle 11/05/20112011 Placenta previa without hemorrhage, antepartum 1 10/16/2008 Supervision of normal first 03/11/2008 03/27/2009 documented as of this encounter (statuses as of 10/04/2022) [facility] History of Past illness Narrative* Problem Noted Date Resolved Date Stress hyperglycemia 11/22/2019 11/22/2019 Overview: History/Assessment: BG controlled Plan: Start SSI coverage Obesity, Class II, BMI 35-39.9 11/22/2019 0 11/22/2019 Postoperative pain 11/21/2019 11/22/2019 Overview: History: No PMH of chronic pain. 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 Atelectasis 11/21/2019 11/22/2019 Overview: History: Postoperative Assessment: Grade I Airway on 1L [place] Plan: OOB, wean o2, and pep Family history of hypertrophic cardiomyopathy 09/22/2018 Irregular menstrual cycle 11/05/20112011 Placenta previa without hemorrhage, antepartum 1 10/16/2008 Supervision of normal first 03/11/2008 03/27/2009 documented as of this encounter (statuses as of 10/22/2022) [facility]2020 History of Past illness Narrative* Problem Noted Date Resolved Date Stress hyperglycemia 11/22/2019 11/22/2019 Overview: History/Assessment: BG controlled Plan: Start SSI coverage Obesity, Class II, BMI 35-39.9 11/22/2019 0 11/22/2019 Postoperative pain 11/21/2019 11/22/2019 Overview: History: No PMH of chronic pain. 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 Atelectasis 11/21/2019 11/22/2019 Overview: History: Postoperative Assessment: Grade I Airway on 1L [place] Plan: OOB, wean o2, and pep Family history of hypertrophic cardiomyopathy 09/22/2018 Irregular menstrual cycle 11/05/20112011 Placenta previa without hemorrhage, antepartum 1 10/16/2008 Supervision of normal first 03/11/2008 03/27/2009 documented as of this encounter (statuses as of 10/22/2022) [facility] History of Past illness Narrative* Problem Noted Date Resolved Date Stress hyperglycemia 11/22/2019 11/22/2019 Overview: History/Assessment: BG controlled Plan: Start SSI coverage Obesity, Class II, BMI 35-39.9 11/22/2019 0 11/22/2019 Postoperative pain 11/21/2019 11/22/2019 Overview: History: No PMH of chronic pain. 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 Atelectasis 11/21/2019 11/22/2019 Overview: History: Postoperative Assessment: Grade I Airway on 1L [place] Plan: OOB, wean o2, and pep Family history of hypertrophic cardiomyopathy 09/22/2018 Irregular menstrual cycle 11/05/20112011 Placenta previa without hemorrhage, antepartum 1 10/16/2008 Supervision of normal first 03/11/2008 03/27/2009 documented as of this encounter (statuses as of 10/22/2022) [facility]2020 History of Past illness Narrative* Problem Noted Date Resolved Date Stress hyperglycemia 11/22/2019 11/22/2019 Overview: History/Assessment: BG controlled Plan: Start SSI coverage Obesity, Class II, BMI 35-39.9 11/22/2019 0 11/22/2019 Postoperative pain 11/21/2019 11/22/2019 Overview: History: No PMH of chronic pain. 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 Atelectasis 11/21/2019 11/22/2019 Overview: History: Postoperative Assessment: Grade I Airway on 1L [place] Plan: OOB, wean o2, and pep Family history of hypertrophic cardiomyopathy 09/22/2018 Irregular menstrual cycle 11/05/20112011 Placenta previa without hemorrhage, antepartum 1 10/16/2008 Supervision of normal first 03/11/2008 03/27/2009 documented as of this encounter (statuses as of 10/22/2022) [facility]2020 History of Past illness Narrative* Problem Noted Date Resolved Date Stress hyperglycemia 11/22/2019 11/22/2019 Overview: History/Assessment: BG controlled Plan: Start SSI coverage Obesity, Class II, BMI 35-39.9 11/22/2019 0 11/22/2019 Postoperative pain 11/21/2019 11/22/2019 Overview: History: No PMH of chronic pain. 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 Atelectasis 11/21/2019 11/22/2019 Overview: History: Postoperative Assessment: Grade I Airway on 1L [place] Plan: OOB, wean o2, and pep Family history of hypertrophic cardiomyopathy 09/22/2018 Irregular menstrual cycle 11/05/20112011 Placenta previa without hemorrhage, antepartum 1 10/16/2008 Supervision of normal first 03/11/2008 03/27/2009 documented as of this encounter (statuses as of 10/22/2022) [facility]2020 History of Past illness Narrative* Problem Noted Date Resolved Date Stress hyperglycemia 11/22/2019 11/22/2019 Overview: History/Assessment: BG controlled Plan: Start SSI coverage Obesity, Class II, BMI 35-39.9 11/22/2019 0 11/22/2019 Postoperative pain 11/21/2019 11/22/2019 Overview: History: No PMH of chronic pain. 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 Atelectasis 11/21/2019 11/22/2019 Overview: History: Postoperative Assessment: Grade I Airway on 1L [place] Plan: OOB, wean o2, and pep Family history of hypertrophic cardiomyopathy 09/22/2018 Irregular menstrual cycle 11/05/20112011 Placenta previa without hemorrhage, antepartum 1 10/16/2008 Supervision of normal first 03/11/2008 03/27/2009 documented as of this encounter (statuses as of 10/23/2022) [facility]2020 History of Past illness Narrative* Problem Noted Date Resolved Date Stress hyperglycemia 11/22/2019 11/22/2019 Overview: History/Assessment: BG controlled Plan: Start SSI coverage Obesity, Class II, BMI 35-39.9 11/22/2019 0 11/22/2019 Postoperative pain 11/21/2019 11/22/2019 Overview: History: No PMH of chronic pain. 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 Atelectasis 11/21/2019 11/22/2019 Overview: History: Postoperative Assessment: Grade I Airway on 1L [place] Plan: OOB, wean o2, and pep Family history of hypertrophic cardiomyopathy 09/22/2018 Irregular menstrual cycle 11/05/20112011 Placenta previa without hemorrhage, antepartum 1 10/16/2008 Supervision of normal first 03/11/2008 03/27/2009 documented as of this encounter (statuses as of 10/26/2022) [facility] History of Past illness Narrative* Problem Noted Date Resolved Date Stress hyperglycemia 11/22/2019 11/22/2019 Overview: History/Assessment: BG controlled Plan: Start SSI coverage Obesity, Class II, BMI 35-39.9 11/22/2019 0 11/22/2019 Postoperative pain 11/21/2019 11/22/2019 Overview: History: No PMH of chronic pain. 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 Atelectasis 11/21/2019 11/22/2019 Overview: History: Postoperative Assessment: Grade I Airway on 1L [place] Plan: OOB, wean o2, and pep Family history of hypertrophic cardiomyopathy 09/22/2018 Irregular menstrual cycle 11/05/20112011 Placenta previa without hemorrhage, antepartum 1 10/16/2008 Supervision of normal first 03/11/2008 03/27/2009 documented as of this encounter (statuses as of 10/28/2022) [facility] History of Past illness Narrative* Problem Noted Date Resolved Date Stress hyperglycemia 11/22/2019 11/22/2019 Overview: History/Assessment: BG controlled Plan: Start SSI coverage Obesity, Class II, BMI 35-39.9 11/22/2019 0 11/22/2019 Postoperative pain 11/21/2019 11/22/2019 Overview: History: No PMH of chronic pain. 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 Atelectasis 11/21/2019 11/22/2019 Overview: History: Postoperative Assessment: Grade I Airway on 1L [place] Plan: OOB, wean o2, and pep Family history of hypertrophic cardiomyopathy 09/22/2018 Irregular menstrual cycle 11/05/20112011 Placenta previa without hemorrhage, antepartum 1 10/16/2008 Supervision of normal first 03/11/2008 03/27/2009 documented as of this encounter (statuses as of 11/04/2022) [facility] History of Past illness Narrative* Problem Noted Date Resolved Date Stress hyperglycemia 11/22/2019 11/22/2019 Overview: History/Assessment: BG controlled Plan: Start SSI coverage Obesity, Class II, BMI 35-39.9 11/22/2019 0 11/22/2019 Postoperative pain 11/21/2019 11/22/2019 Overview: History: No PMH of chronic pain. 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 Atelectasis 11/21/2019 11/22/2019 Overview: History: Postoperative Assessment: Grade I Airway on 1L [place] Plan: OOB, wean o2, and pep Family history of hypertrophic cardiomyopathy 09/22/2018 Irregular menstrual cycle 11/05/20112011 Placenta previa without hemorrhage, antepartum 1 10/16/2008 Supervision of normal first 03/11/2008 03/27/2009 documented as of this encounter (statuses as of 11/05/2022) [facility] History of Past illness Narrative* Problem Noted Date Resolved Date Stress hyperglycemia 11/22/2019 11/22/2019 Overview: History/Assessment: BG controlled Plan: Start SSI coverage Obesity, Class II, BMI 35-39.9 11/22/2019 0 11/22/2019 Postoperative pain 11/21/2019 11/22/2019 Overview: History: No PMH of chronic pain. 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 Atelectasis 11/21/2019 11/22/2019 Overview: History: Postoperative Assessment: Grade I Airway on 1L [place] Plan: OOB, wean o2, and pep Family history of hypertrophic cardiomyopathy 09/22/2018 Irregular menstrual cycle 11/05/20112011 Placenta previa without hemorrhage, antepartum 1 10/16/2008 Supervision of normal first 03/11/2008 03/27/2009 documented as of this encounter (statuses as of 11/05/2022) [facility] History of Past illness Narrative* Problem Noted Date Resolved Date Stress hyperglycemia 11/22/2019 11/22/2019 Overview: History/Assessment: BG controlled Plan: Start SSI coverage Obesity, Class II, BMI 35-39.9 11/22/2019 0 11/22/2019 Postoperative pain 11/21/2019 11/22/2019 Overview: History: No PMH of chronic pain. 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 Atelectasis 11/21/2019 11/22/2019 Overview: History: Postoperative Assessment: Grade I Airway on 1L [place] Plan: OOB, wean o2, and pep Family history of hypertrophic cardiomyopathy 09/22/2018 Irregular menstrual cycle 11/05/20112011 Placenta previa without hemorrhage, antepartum 1 10/16/2008 Supervision of normal first 03/11/2008 03/27/2009 documented as of this encounter (statuses as of 11/14/2022) [facility] History of Past illness Narrative* Problem Noted Date Resolved Date Stress hyperglycemia 11/22/2019 11/22/2019 Overview: History/Assessment: BG controlled Plan: Start SSI coverage Obesity, Class II, BMI 35-39.9 11/22/2019 0 11/22/2019 Postoperative pain 11/21/2019 11/22/2019 Overview: History: No PMH of chronic pain. 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 Atelectasis 11/21/2019 11/22/2019 Overview: History: Postoperative Assessment: Grade I Airway on 1L [place] Plan: OOB, wean o2, and pep Family history of hypertrophic cardiomyopathy 09/22/2018 Irregular menstrual cycle 11/05/20112011 Placenta previa without hemorrhage, antepartum 1 10/16/2008 Supervision of normal first 03/11/2008 03/27/2009 documented as of this encounter (statuses as of 11/19/2022) [facility] History of Past illness Narrative* Problem Noted Date Resolved Date Stress hyperglycemia 11/22/2019 11/22/2019 Overview: History/Assessment: BG controlled Plan: Start SSI coverage Obesity, Class II, BMI 35-39.9 11/22/2019 0 11/22/2019 Postoperative pain 11/21/2019 11/22/2019 Overview: History: No PMH of chronic pain. 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 Atelectasis 11/21/2019 11/22/2019 Overview: History: Postoperative Assessment: Grade I Airway on 1L [place] Plan: OOB, wean o2, and pep Family history of hypertrophic cardiomyopathy 09/22/2018 Irregular menstrual cycle 11/05/20112011 Placenta previa without hemorrhage, antepartum 1 10/16/2008 Supervision of normal first 03/11/2008 03/27/2009 documented as of this encounter (statuses as of 11/19/2022) [facility] History of Past illness Narrative* Problem Noted Date Resolved Date Stress hyperglycemia 11/22/2019 11/22/2019 Overview: History/Assessment: BG controlled Plan: Start SSI coverage Obesity, Class II, BMI 35-39.9 11/22/2019 0 11/22/2019 Postoperative pain 11/21/2019 11/22/2019 Overview: History: No PMH of chronic pain. 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 Atelectasis 11/21/2019 11/22/2019 Overview: History: Postoperative Assessment: Grade I Airway on 1L [place] Plan: OOB, wean o2, and pep Family history of hypertrophic cardiomyopathy 09/22/2018 Irregular menstrual cycle 11/05/20112011 Placenta previa without hemorrhage, antepartum 1 10/16/2008 Supervision of normal first 03/11/2008 03/27/2009 documented as of this encounter (statuses as of 11/26/2022) [facility]2020 History of Past illness Narrative* Problem Noted Date Resolved Date Stress hyperglycemia 11/22/2019 11/22/2019 Overview: History/Assessment: BG controlled Plan: Start SSI coverage Obesity, Class II, BMI 35-39.9 11/22/2019 0 11/22/2019 Postoperative pain 11/21/2019 11/22/2019 Overview: History: No PMH of chronic pain. 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 Atelectasis 11/21/2019 11/22/2019 Overview: History: Postoperative Assessment: Grade I Airway on 1L [place] Plan: OOB, wean o2, and pep Family history of hypertrophic cardiomyopathy 09/22/2018 Irregular menstrual cycle 11/05/20112011 Placenta previa without hemorrhage, antepartum 1 10/16/2008 Supervision of normal first 03/11/2008 03/27/2009 documented as of this encounter (statuses as of 12/05/2022) [facility]-18-2020 History of Past illness Narrative* Problem Noted Date Resolved Date Stress hyperglycemia 11/22/2019 11/22/2019 Overview: History/Assessment: BG controlled Plan: Start SSI coverage Obesity, Class II, BMI 35-39.9 11/22/2019 0 11/22/2019 Postoperative pain 11/21/2019 11/22/2019 Overview: History: No PMH of chronic pain. 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 Atelectasis 11/21/2019 11/22/2019 Overview: History: Postoperative Assessment: Grade I Airway on 1L [place] Plan: OOB, wean o2, and pep Family history of hypertrophic cardiomyopathy 09/22/2018 Irregular menstrual cycle 11/05/20112011 Placenta previa without hemorrhage, antepartum 1 10/16/2008 Supervision of normal first 03/11/2008 03/27/2009 documented as of this encounter (statuses as of 12/08/2022) [facility]2020 History of Past illness Narrative* Problem Noted Date Resolved Date Stress hyperglycemia 11/22/2019 11/22/2019 Overview: History/Assessment: BG controlled Plan: Start SSI coverage Obesity, Class II, BMI 35-39.9 11/22/2019 0 11/22/2019 Postoperative pain 11/21/2019 11/22/2019 Overview: History: No PMH of chronic pain. 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 Atelectasis 11/21/2019 11/22/2019 Overview: History: Postoperative Assessment: Grade I Airway on 1L [place] Plan: OOB, wean o2, and pep Family history of hypertrophic cardiomyopathy 09/22/2018 Irregular menstrual cycle 11/05/20112011 Placenta previa without hemorrhage, antepartum 1 10/16/2008 Supervision of normal first 03/11/2008 03/27/2009 documented as of this encounter (statuses as of 12/10/2022) [facility]2020 History of Past illness Narrative* Problem Noted Date Resolved Date Stress hyperglycemia 11/22/2019 11/22/2019 Overview: History/Assessment: BG controlled Plan: Start SSI coverage Obesity, Class II, BMI 35-39.9 11/22/2019 0 11/22/2019 Postoperative pain 11/21/2019 11/22/2019 Overview: History: No PMH of chronic pain. 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 Atelectasis 11/21/2019 11/22/2019 Overview: History: Postoperative Assessment: Grade I Airway on 1L [place] Plan: OOB, wean o2, and pep Family history of hypertrophic cardiomyopathy 09/22/2018 Irregular menstrual cycle 11/05/20112011 Placenta previa without hemorrhage, antepartum 1 10/16/2008 Supervision of normal first 03/11/2008 03/27/2009 documented as of this encounter (statuses as of 12/15/2022) [facility]2020 History of Past illness Narrative* Problem Noted Date Resolved Date Stress hyperglycemia 11/22/2019 11/22/2019 Overview: History/Assessment: BG controlled Plan: Start SSI coverage Obesity, Class II, BMI 35-39.9 11/22/2019 0 11/22/2019 Postoperative pain 11/21/2019 11/22/2019 Overview: History: No PMH of chronic pain. 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 Atelectasis 11/21/2019 11/22/2019 Overview: History: Postoperative Assessment: Grade I Airway on 1L [place] Plan: OOB, wean o2, and pep Family history of hypertrophic cardiomyopathy 09/22/2018 Irregular menstrual cycle 11/05/20112011 Placenta previa without hemorrhage, antepartum 1 10/16/2008 Supervision of normal first 03/11/2008 03/27/2009 documented as of this encounter (statuses as of 12/22/2022) [facility] History of Past illness Narrative* Problem Noted Date Resolved Date Stress hyperglycemia 11/22/2019 11/22/2019 Overview: History/Assessment: BG controlled Plan: Start SSI coverage Obesity, Class II, BMI 35-39.9 11/22/2019 0 11/22/2019 Postoperative pain 11/21/2019 11/22/2019 Overview: History: No PMH of chronic pain. 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 Atelectasis 11/21/2019 11/22/2019 Overview: History: Postoperative Assessment: Grade I Airway on 1L [place] Plan: OOB, wean o2, and pep Family history of hypertrophic cardiomyopathy 09/22/2018 Irregular menstrual cycle 11/05/20112011 Placenta previa without hemorrhage, antepartum 1 10/16/2008 Supervision of normal first 03/11/2008 03/27/2009 documented as of this encounter (statuses as of 01/09/2023) [facility] History of Past illness Narrative* Problem Noted Date Resolved Date Stress hyperglycemia 11/22/2019 11/22/2019 Overview: History/Assessment: BG controlled Plan: Start SSI coverage Obesity, Class II, BMI 35-39.9 11/22/2019 0 11/22/2019 Postoperative pain 11/21/2019 11/22/2019 Overview: History: No PMH of chronic pain. 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 Atelectasis 11/21/2019 11/22/2019 Overview: History: Postoperative Assessment: Grade I Airway on 1L [place] Plan: OOB, wean o2, and pep Family history of hypertrophic cardiomyopathy 09/22/2018 Irregular menstrual cycle 11/05/20112011 Placenta previa without hemorrhage, antepartum 1 10/16/2008 Supervision of normal first 03/11/2008 03/27/2009 documented as of this encounter (statuses as of 01/15/2023) [facility] History of Past illness Narrative* Problem Noted Date Resolved Date Stress hyperglycemia 11/22/2019 11/22/2019 Overview: History/Assessment: BG controlled Plan: Start SSI coverage Obesity, Class II, BMI 35-39.9 11/22/2019 0 11/22/2019 Postoperative pain 11/21/2019 11/22/2019 Overview: History: No PMH of chronic pain. 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 Atelectasis 11/21/2019 11/22/2019 Overview: History: Postoperative Assessment: Grade I Airway on 1L [place] Plan: OOB, wean o2, and pep Family history of hypertrophic cardiomyopathy 09/22/2018 Irregular menstrual cycle 11/05/20112011 Placenta previa without hemorrhage, antepartum 1 10/16/2008 Supervision of normal first 03/11/2008 03/27/2009 documented as of this encounter (statuses as of 01/29/2023) [facility] History of Past illness Narrative* Problem Noted Date Resolved Date Stress hyperglycemia 11/22/2019 11/22/2019 Overview: History/Assessment: BG controlled Plan: Start SSI coverage Obesity, Class II, BMI 35-39.9 11/22/2019 0 11/22/2019 Postoperative pain 11/21/2019 11/22/2019 Overview: History: No PMH of chronic pain. 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 Atelectasis 11/21/2019 11/22/2019 Overview: History: Postoperative Assessment: Grade I Airway on 1L [place] Plan: OOB, wean o2, and pep Family history of hypertrophic cardiomyopathy 09/22/2018 Irregular menstrual cycle 11/05/20112011 Placenta previa without hemorrhage, antepartum 1 10/16/2008 Supervision of normal first 03/11/2008 03/27/2009 documented as of this encounter (statuses as of 01/29/2023) [facility] History of Past illness Narrative* Problem Noted Date Resolved Date Stress hyperglycemia 11/22/2019 11/22/2019 Overview: History/Assessment: BG controlled Plan: Start SSI coverage Obesity, Class II, BMI 35-39.9 11/22/2019 0 11/22/2019 Postoperative pain 11/21/2019 11/22/2019 Overview: History: No PMH of chronic pain. 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 Atelectasis 11/21/2019 11/22/2019 Overview: History: Postoperative Assessment: Grade I Airway on 1L [place] Plan: OOB, wean o2, and pep Family history of hypertrophic cardiomyopathy 09/22/2018 Irregular menstrual cycle 11/05/20112011 Placenta previa without hemorrhage, antepartum 1 10/16/2008 Supervision of normal first 03/11/2008 03/27/2009 documented as of this encounter (statuses as of 01/29/2023) [facility] History of Past illness Narrative* Problem Noted Date Resolved Date Stress hyperglycemia 11/22/2019 11/22/2019 Overview: History/Assessment: BG controlled Plan: Start SSI coverage Obesity, Class II, BMI 35-39.9 11/22/2019 0 11/22/2019 Postoperative pain 11/21/2019 11/22/2019 Overview: History: No PMH of chronic pain. 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 Atelectasis 11/21/2019 11/22/2019 Overview: History: Postoperative Assessment: Grade I Airway on 1L [place] Plan: OOB, wean o2, and pep Family history of hypertrophic cardiomyopathy 09/22/2018 Irregular menstrual cycle 11/05/20112011 Placenta previa without hemorrhage, antepartum 1 10/16/2008 Supervision of normal first 03/11/2008 03/27/2009 documented as of this encounter (statuses as of 02/02/2023) [facility] History of Past illness Narrative* Problem Noted Date Resolved Date Stress hyperglycemia 11/22/2019 11/22/2019 Overview: History/Assessment: BG controlled Plan: Start SSI coverage Obesity, Class II, BMI 35-39.9 11/22/2019 0 11/22/2019 Postoperative pain 11/21/2019 11/22/2019 Overview: History: No PMH of chronic pain. 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 Atelectasis 11/21/2019 11/22/2019 Overview: History: Postoperative Assessment: Grade I Airway on 1L [place] Plan: OOB, wean o2, and pep Family history of hypertrophic cardiomyopathy 09/22/2018 Irregular menstrual cycle 11/05/20112011 Placenta previa without hemorrhage, antepartum 1 10/16/2008 Supervision of normal first 03/11/2008 03/27/2009 documented as of this encounter (statuses as of 02/04/2023) [facility] History of Past illness Narrative* Problem Noted Date Resolved Date Stress hyperglycemia 11/22/2019 11/22/2019 Overview: History/Assessment: BG controlled Plan: Start SSI coverage Obesity, Class II, BMI 35-39.9 11/22/2019 0 11/22/2019 Postoperative pain 11/21/2019 11/22/2019 Overview: History: No PMH of chronic pain. 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 Atelectasis 11/21/2019 11/22/2019 Overview: History: Postoperative Assessment: Grade I Airway on 1L [place] Plan: OOB, wean o2, and pep Family history of hypertrophic cardiomyopathy 09/22/2018 Irregular menstrual cycle 11/05/20112011 Placenta previa without hemorrhage, antepartum 1 10/16/2008 Supervision of normal first 03/11/2008 03/27/2009 documented as of this encounter (statuses as of 02/18/2023) [facility]2020 History of Past illness Narrative* Problem Noted Date Resolved Date Stress hyperglycemia 11/22/2019 11/22/2019 Overview: History/Assessment: BG controlled Plan: Start SSI coverage Obesity, Class II, BMI 35-39.9 11/22/2019 0 11/22/2019 Postoperative pain 11/21/2019 11/22/2019 Overview: History: No PMH of chronic pain. 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 Atelectasis 11/21/2019 11/22/2019 Overview: History: Postoperative Assessment: Grade I Airway on 1L [place] Plan: OOB, wean o2, and pep Family history of hypertrophic cardiomyopathy 09/22/2018 Irregular menstrual cycle 11/05/20112011 Placenta previa without hemorrhage, antepartum 1 10/16/2008 Supervision of normal first 03/11/2008 03/27/2009 documented as of this encounter (statuses as of 03/04/2023) [facility]2020 History of Past illness Narrative* Problem Noted Date Resolved Date Stress hyperglycemia 11/22/2019 11/22/2019 Overview: History/Assessment: BG controlled Plan: Start SSI coverage Obesity, Class II, BMI 35-39.9 11/22/2019 0 11/22/2019 Postoperative pain 11/21/2019 11/22/2019 Overview: History: No PMH of chronic pain. 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 Atelectasis 11/21/2019 11/22/2019 Overview: History: Postoperative Assessment: Grade I Airway on 1L [place] Plan: OOB, wean o2, and pep Family history of hypertrophic cardiomyopathy 09/22/2018 Irregular menstrual cycle 11/05/20112011 Placenta previa without hemorrhage, antepartum 1 10/16/2008 Supervision of normal first 03/11/2008 03/27/2009 documented as of this encounter (statuses as of 03/06/2023) [facility] History of Past illness Narrative* Problem Noted Date Resolved Date Stress hyperglycemia 11/22/2019 11/22/2019 Overview: History/Assessment: BG controlled Plan: Start SSI coverage Obesity, Class II, BMI 35-39.9 11/22/2019 0 11/22/2019 Postoperative pain 11/21/2019 11/22/2019 Overview: History: No PMH of chronic pain. 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 Atelectasis 11/21/2019 11/22/2019 Overview: History: Postoperative Assessment: Grade I Airway on 1L [place] Plan: OOB, wean o2, and pep Family history of hypertrophic cardiomyopathy 09/22/2018 Irregular menstrual cycle 11/05/20112011 Placenta previa without hemorrhage, antepartum 1 10/16/2008 Supervision of normal first 03/11/2008 03/27/2009 documented as of this encounter (statuses as of 03/10/2023) [facility]2020 History of Past illness Narrative* Problem Noted Date Resolved Date Stress hyperglycemia 11/22/2019 11/22/2019 Overview: History/Assessment: BG controlled Plan: Start SSI coverage Obesity, Class II, BMI 35-39.9 11/22/2019 0 11/22/2019 Postoperative pain 11/21/2019 11/22/2019 Overview: History: No PMH of chronic pain. 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 Atelectasis 11/21/2019 11/22/2019 Overview: History: Postoperative Assessment: Grade I Airway on 1L [place] Plan: OOB, wean o2, and pep Family history of hypertrophic cardiomyopathy 09/22/2018 Irregular menstrual cycle 11/05/20112011 Placenta previa without hemorrhage, antepartum 1 10/16/2008 Supervision of normal first 03/11/2008 03/27/2009 documented as of this encounter (statuses as of 03/10/2023) [facility]2020 History of Past illness Narrative* Problem Noted Date Resolved Date Stress hyperglycemia 11/22/2019 11/22/2019 Overview: History/Assessment: BG controlled Plan: Start SSI coverage Obesity, Class II, BMI 35-39.9 11/22/2019 0 11/22/2019 Postoperative pain 11/21/2019 11/22/2019 Overview: History: No PMH of chronic pain. 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 Atelectasis 11/21/2019 11/22/2019 Overview: History: Postoperative Assessment: Grade I Airway on 1L [place] Plan: OOB, wean o2, and pep Family history of hypertrophic cardiomyopathy 09/22/2018 Irregular menstrual cycle 11/05/20112011 Placenta previa without hemorrhage, antepartum 1 10/16/2008 Supervision of normal first 03/11/2008 03/27/2009 documented as of this encounter (statuses as of 03/10/2023) [facility]2020 History of Past illness Narrative* Problem Noted Date Resolved Date Stress hyperglycemia 11/22/2019 11/22/2019 Overview: History/Assessment: BG controlled Plan: Start SSI coverage Obesity, Class II, BMI 35-39.9 11/22/2019 0 11/22/2019 Postoperative pain 11/21/2019 11/22/2019 Overview: History: No PMH of chronic pain. 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 Atelectasis 11/21/2019 11/22/2019 Overview: History: Postoperative Assessment: Grade I Airway on 1L [place] Plan: OOB, wean o2, and pep Family history of hypertrophic cardiomyopathy 09/22/2018 Irregular menstrual cycle 11/05/20112011 Placenta previa without hemorrhage, antepartum 1 10/16/2008 Supervision of normal first 03/11/2008 03/27/2009 documented as of this encounter (statuses as of 03/10/2023) [facility]2020 History of Past illness Narrative* Problem Noted Date Resolved Date Stress hyperglycemia 11/22/2019 11/22/2019 Overview: History/Assessment: BG controlled Plan: Start SSI coverage Obesity, Class II, BMI 35-39.9 11/22/2019 0 11/22/2019 Postoperative pain 11/21/2019 11/22/2019 Overview: History: No PMH of chronic pain. 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 Atelectasis 11/21/2019 11/22/2019 Overview: History: Postoperative Assessment: Grade I Airway on 1L [place] Plan: OOB, wean o2, and pep Family history of hypertrophic cardiomyopathy 09/22/2018 Irregular menstrual cycle 11/05/20112011 Placenta previa without hemorrhage, antepartum 1 10/16/2008 Supervision of normal first 03/11/2008 03/27/2009 documented as of this encounter (statuses as of 03/12/2023) [facility] History of Past illness Narrative* Problem Noted Date Resolved Date Stress hyperglycemia 11/22/2019 11/22/2019 Overview: History/Assessment: BG controlled Plan: Start SSI coverage Obesity, Class II, BMI 35-39.9 11/22/2019 0 11/22/2019 Postoperative pain 11/21/2019 11/22/2019 Overview: History: No PMH of chronic pain. 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 Atelectasis 11/21/2019 11/22/2019 Overview: History: Postoperative Assessment: Grade I Airway on 1L [place] Plan: OOB, wean o2, and pep Family history of hypertrophic cardiomyopathy 09/22/2018 Irregular menstrual cycle 11/05/20112011 Placenta previa without hemorrhage, antepartum 1 10/16/2008 Supervision of normal first 03/11/2008 03/27/2009 documented as of this encounter (statuses as of 03/12/2023) [facility] History of Past illness Narrative* Problem Noted Date Resolved Date Stress hyperglycemia 11/22/2019 11/22/2019 Overview: History/Assessment: BG controlled Plan: Start SSI coverage Obesity, Class II, BMI 35-39.9 11/22/2019 0 11/22/2019 Postoperative pain 11/21/2019 11/22/2019 Overview: History: No PMH of chronic pain. 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 Atelectasis 11/21/2019 11/22/2019 Overview: History: Postoperative Assessment: Grade I Airway on 1L [place] Plan: OOB, wean o2, and pep Family history of hypertrophic cardiomyopathy 09/22/2018 Irregular menstrual cycle 11/05/20112011 Placenta previa without hemorrhage, antepartum 1 10/16/2008 Supervision of normal first 03/11/2008 03/27/2009 documented as of this encounter (statuses as of 03/16/2023) [facility] History of Past illness Narrative* Problem Noted Date Resolved Date Stress hyperglycemia 11/22/2019 11/22/2019 Overview: History/Assessment: BG controlled Plan: Start SSI coverage Obesity, Class II, BMI 35-39.9 11/22/2019 0 11/22/2019 Postoperative pain 11/21/2019 11/22/2019 Overview: History: No PMH of chronic pain. 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 Atelectasis 11/21/2019 11/22/2019 Overview: History: Postoperative Assessment: Grade I Airway on 1L [place] Plan: OOB, wean o2, and pep Family history of hypertrophic cardiomyopathy 09/22/2018 Irregular menstrual cycle 11/05/20112011 Placenta previa without hemorrhage, antepartum 1 10/16/2008 Supervision of normal first 03/11/2008 03/27/2009 documented as of this encounter (statuses as of 03/17/2023) [facility] History of Past illness Narrative* Problem Noted Date Resolved Date Stress hyperglycemia 11/22/2019 11/22/2019 Overview: History/Assessment: BG controlled Plan: Start SSI coverage Obesity, Class II, BMI 35-39.9 11/22/2019 0 11/22/2019 Postoperative pain 11/21/2019 11/22/2019 Overview: History: No PMH of chronic pain. 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 Atelectasis 11/21/2019 11/22/2019 Overview: History: Postoperative Assessment: Grade I Airway on 1L [place] Plan: OOB, wean o2, and pep Family history of hypertrophic cardiomyopathy 09/22/2018 Irregular menstrual cycle 11/05/20112011 Placenta previa without hemorrhage, antepartum 1 10/16/2008 Supervision of normal first 03/11/2008 03/27/2009 documented as of this encounter (statuses as of 03/20/2023) [facility] History of Past illness Narrative* Problem Noted Date Resolved Date Stress hyperglycemia 11/22/2019 11/22/2019 Overview: History/Assessment: BG controlled Plan: Start SSI coverage Obesity, Class II, BMI 35-39.9 11/22/2019 0 11/22/2019 Postoperative pain 11/21/2019 11/22/2019 Overview: History: No PMH of chronic pain. 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 Atelectasis 11/21/2019 11/22/2019 Overview: History: Postoperative Assessment: Grade I Airway on 1L [place] Plan: OOB, wean o2, and pep Family history of hypertrophic cardiomyopathy 09/22/2018 Irregular menstrual cycle 11/05/20112011 Placenta previa without hemorrhage, antepartum 1 10/16/2008 Supervision of normal first 03/11/2008 03/27/2009 documented as of this encounter (statuses as of 03/20/2023) [facility] History of Past illness Narrative* Problem Noted Date Resolved Date Stress hyperglycemia 11/22/2019 11/22/2019 Overview: History/Assessment: BG controlled Plan: Start SSI coverage Obesity, Class II, BMI 35-39.9 11/22/2019 0 11/22/2019 Postoperative pain 11/21/2019 11/22/2019 Overview: History: No PMH of chronic pain. 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 Atelectasis 11/21/2019 11/22/2019 Overview: History: Postoperative Assessment: Grade I Airway on 1L [place] Plan: OOB, wean o2, and pep Family history of hypertrophic cardiomyopathy 09/22/2018 Irregular menstrual cycle 11/05/20112011 Placenta previa without hemorrhage, antepartum 1 10/16/2008 Supervision of normal first 03/11/2008 03/27/2009 documented as of this encounter (statuses as of 03/21/2023) [facility] History of Past illness Narrative* Problem Noted Date Resolved Date Stress hyperglycemia 11/22/2019 11/22/2019 Overview: History/Assessment: BG controlled Plan: Start SSI coverage Obesity, Class II, BMI 35-39.9 11/22/2019 0 11/22/2019 Postoperative pain 11/21/2019 11/22/2019 Overview: History: No PMH of chronic pain. 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 Atelectasis 11/21/2019 11/22/2019 Overview: History: Postoperative Assessment: Grade I Airway on 1L [place] Plan: OOB, wean o2, and pep Family history of hypertrophic cardiomyopathy 09/22/2018 Irregular menstrual cycle 11/05/20112011 Placenta previa without hemorrhage, antepartum 1 10/16/2008 Supervision of normal first 03/11/2008 03/27/2009 documented as of this encounter (statuses as of 03/24/2023) [facility] History of Past illness Narrative* Problem Noted Date Resolved Date Stress hyperglycemia 11/22/2019 11/22/2019 Overview: History/Assessment: BG controlled Plan: Start SSI coverage Obesity, Class II, BMI 35-39.9 11/22/2019 0 11/22/2019 Postoperative pain 11/21/2019 11/22/2019 Overview: History: No PMH of chronic pain. 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 Atelectasis 11/21/2019 11/22/2019 Overview: History: Postoperative Assessment: Grade I Airway on 1L [place] Plan: OOB, wean o2, and pep Family history of hypertrophic cardiomyopathy 09/22/2018 Irregular menstrual cycle 11/05/20112011 Placenta previa without hemorrhage, antepartum 1 10/16/2008 Supervision of normal first 03/11/2008 03/27/2009 documented as of this encounter (statuses as of 03/26/2023) [facility] History of Past illness Narrative* Problem Noted Date Resolved Date Stress hyperglycemia 11/22/2019 11/22/2019 Overview: History/Assessment: BG controlled Plan: Start SSI coverage Obesity, Class II, BMI 35-39.9 11/22/2019 0 11/22/2019 Postoperative pain 11/21/2019 11/22/2019 Overview: History: No PMH of chronic pain. 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 Atelectasis 11/21/2019 11/22/2019 Overview: History: Postoperative Assessment: Grade I Airway on 1L NC Plan: OOB, wean o2, and pep Family history of hypertrophic cardiomyopathy 09/22/2018 Irregular menstrual cycle 11/05/20112011 Placenta previa without hemorrhage, antepartum 1 10/16/2008 Supervision of normal first 03/11/2008 03/27/2009 documented as of this encounter (statuses as of 03/28/2023) [facility]2020 History of Past illness Narrative* Problem Noted Date Resolved Date Stress hyperglycemia 11/22/2019 11/22/2019 Overview: History/Assessment: BG controlled Plan: Start SSI coverage Obesity, Class II, BMI 35-39.9 11/22/2019 0 11/22/2019 Postoperative pain 11/21/2019 11/22/2019 Overview: History: No PMH of chronic pain. 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 Atelectasis 11/21/2019 11/22/2019 Overview: History: Postoperative Assessment: Grade I Airway on 1L NC Plan: OOB, wean o2, and pep Family history of hypertrophic cardiomyopathy 09/22/2018 Irregular menstrual cycle 11/05/20112011 Placenta previa without hemorrhage, antepartum 1 10/16/2008 Supervision of normal first 03/11/2008 03/27/2009 documented as of this encounter (statuses as of 04/01/2023) [facility] History of Past illness Narrative* Problem Noted Date Resolved Date Stress hyperglycemia 11/22/2019 11/22/2019 Overview: History/Assessment: BG controlled Plan: Start SSI coverage Obesity, Class II, BMI 35-39.9 11/22/2019 0 11/22/2019 Postoperative pain 11/21/2019 11/22/2019 Overview: History: No PMH of chronic pain. 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 Atelectasis 11/21/2019 11/22/2019 Overview: History: Postoperative Assessment: Grade I Airway on 1L NC Plan: OOB, wean o2, and pep Family history of hypertrophic cardiomyopathy 09/22/2018 Irregular menstrual cycle 11/05/20112011 Placenta previa without hemorrhage, antepartum 1 10/16/2008 Supervision of normal first 03/11/2008 03/27/2009 documented as of this encounter (statuses as of 04/03/2023) [facility] History of Past illness Narrative* Problem Noted Date Resolved Date Stress hyperglycemia 11/22/2019 11/22/2019 Overview: History/Assessment: BG controlled Plan: Start SSI coverage Obesity, Class II, BMI 35-39.9 11/22/2019 0 11/22/2019 Postoperative pain 11/21/2019 11/22/2019 Overview: History: No PMH of chronic pain. 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 Atelectasis 11/21/2019 11/22/2019 Overview: History: Postoperative Assessment: Grade I Airway on 1L NC Plan: OOB, wean o2, and pep Family history of hypertrophic cardiomyopathy 09/22/2018 Irregular menstrual cycle 11/05/20112011 Placenta previa without hemorrhage, antepartum 1 10/16/2008 Supervision of normal first 03/11/2008 03/27/2009 documented as of this encounter (statuses as of 04/10/2023) [facility] History of Past illness Narrative* Problem Noted Date Diagnosed Date Resolved Date Stress hyperglycemia 11/22/2019 020 Overview: History/Assessment: BG controlled Plan: Start SSI coverage Obesity, Class II, BMI 35-39.9 11/22/2019 11/22/2019 Postoperative pain 11/21/2019 0 Overview: History: No PMH of chronic pain. 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 Atelectasis 11/21/2019 11/22/2019 Overview: History: Postoperative Assessment: Grade I Airway on 1L NC Plan: OOB, wean o2, and pep Family history of hypertrophic cardiomyopathy 01/19/20 14 09/22/2018 Irregular menstrual cycle 11/05/2011 Placenta previa without hemo rrhage, antepartum 07/21/2008 10/16/2008 Supervision of normal first 03/11/2008 03/27/2009 documented as of this encounter (statuses as of 04/11/2023) [facility] History of Past illness Narrative* Problem Noted Date Diagnosed Date Resolved Date Stress hyperglycemia 11/22/2019 020 Overview: History/Assessment: BG controlled Plan: Start SSI coverage Obesity, Class II, BMI 35-39.9 11/22/2019 11/22/2019 Postoperative pain 11/21/2019 0 Overview: History: No PMH of chronic pain. 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 Atelectasis 11/21/2019 11/22/2019 Overview: History: Postoperative Assessment: Grade I Airway on 1L NC Plan: OOB, wean o2, and pep Family history of hypertrophic cardiomyopathy 01/19/20 14 09/22/2018 Irregular menstrual cycle 11/05/2011 Placenta previa without hemo rrhage, antepartum 07/21/2008 10/16/2008 Supervision of normal first 03/11/2008 03/27/2009 documented as of this encounter (statuses as of 04/16/2023) [facility] History of Past illness Narrative* Problem Noted Date Diagnosed Date Resolved Date Stress hyperglycemia 11/22/2019 020 Overview: History/Assessment: BG controlled Plan: Start SSI coverage Obesity, Class II, BMI 35-39.9 11/22/2019 11/22/2019 Postoperative pain 11/21/2019 0 Overview: History: No PMH of chronic pain. 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 Atelectasis 11/21/2019 11/22/2019 Overview: History: Postoperative Assessment: Grade I Airway on 1L NC Plan: OOB, wean o2, and pep Family history of hypertrophic cardiomyopathy 01/19/20 14 09/22/2018 Irregular menstrual cycle 11/05/2011 Placenta previa without hemo rrhage, antepartum 07/21/2008 10/16/2008 Supervision of normal first 03/11/2008 03/27/2009 documented as of this encounter (statuses as of 04/20/2023) [facility] History of Past illness Narrative* Problem Noted Date Diagnosed Date Resolved Date Stress hyperglycemia 11/22/2019 020 Overview: History/Assessment: BG controlled Plan: Start SSI coverage Obesity, Class II, BMI 35-39.9 11/22/2019 11/22/2019 Postoperative pain 11/21/2019 0 Overview: History: No PMH of chronic pain. 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 Atelectasis 11/21/2019 11/22/2019 Overview: History: Postoperative Assessment: Grade I Airway on 1L NC Plan: OOB, wean o2, and pep Family history of hypertrophic cardiomyopathy 01/19/20 14 09/22/2018 Irregular menstrual cycle 11/05/2011 Placenta previa without hemo rrhage, antepartum 07/21/2008 10/16/2008 Supervision of normal first 03/11/2008 03/27/2009 documented as of this encounter (statuses as of 05/04/2023) [facility] History of Past illness Narrative* Problem Noted Date Diagnosed Date Resolved Date Stress hyperglycemia 11/22/2019 020 Overview: History/Assessment: BG controlled Plan: Start SSI coverage Obesity, Class II, BMI 35-39.9 11/22/2019 11/22/2019 Postoperative pain 11/21/2019 0 Overview: History: No PMH of chronic pain. 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 Atelectasis 11/21/2019 11/22/2019 Overview: History: Postoperative Assessment: Grade I Airway on 1L NC Plan: OOB, wean o2, and pep Family history of hypertrophic cardiomyopathy 01/19/20 14 09/22/2018 Irregular menstrual cycle 11/05/2011 Placenta previa without hemo rrhage, antepartum 07/21/2008 10/16/2008 Supervision of normal first 03/11/2008 03/27/2009 documented as of this encounter (statuses as of 05/06/2023) [facility] History of Past illness Narrative* Problem Noted Date Diagnosed Date Resolved Date Stress hyperglycemia 11/22/2019 020 Overview: History/Assessment: BG controlled Plan: Start SSI coverage Obesity, Class II, BMI 35-39.9 11/22/2019 11/22/2019 Postoperative pain 11/21/2019 0 Overview: History: No PMH of chronic pain. 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 Atelectasis 11/21/2019 11/22/2019 Overview: History: Postoperative Assessment: Grade I Airway on 1L NC Plan: OOB, wean o2, and pep Family history of hypertrophic cardiomyopathy 01/19/20 14 09/22/2018 Irregular menstrual cycle 11/05/2011 Placenta previa without hemo rrhage, antepartum 07/21/2008 10/16/2008 Supervision of normal first 03/11/2008 03/27/2009 documented as of this encounter (statuses as of 05/08/2023) [facility] History of Past illness Narrative* Problem Noted Date Diagnosed Date Resolved Date Stress hyperglycemia 11/22/2019 020 Overview: History/Assessment: BG controlled Plan: Start SSI coverage Obesity, Class II, BMI 35-39.9 11/22/2019 11/22/2019 Postoperative pain 11/21/2019 0 Overview: History: No PMH of chronic pain. 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 Atelectasis 11/21/2019 11/22/2019 Overview: History: Postoperative Assessment: Grade I Airway on 1L NC Plan: OOB, wean o2, and pep Family history of hypertrophic cardiomyopathy 01/19/20 14 09/22/2018 Irregular menstrual cycle 11/05/2011 Placenta previa without hemo rrhage, antepartum 07/21/2008 10/16/2008 Supervision of normal first 03/11/2008 03/27/2009 documented as of this encounter (statuses as of 05/08/2023) [facility] History of Past illness Narrative* Problem Noted Date Diagnosed Date Resolved Date Stress hyperglycemia 11/22/2019 020 Overview: History/Assessment: BG controlled Plan: Start SSI coverage Obesity, Class II, BMI 35-39.9 11/22/2019 11/22/2019 Postoperative pain 11/21/2019 0 Overview: History: No PMH of chronic pain. 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 Atelectasis 11/21/2019 11/22/2019 Overview: History: Postoperative Assessment: Grade I Airway on 1L NC Plan: OOB, wean o2, and pep Family history of hypertrophic cardiomyopathy 01/19/20 14 09/22/2018 Irregular menstrual cycle 11/05/2011 Placenta previa without hemo rrhage, antepartum 07/21/2008 10/16/2008 Supervision of normal first 03/11/2008 03/27/2009 documented as of this encounter (statuses as of 05/08/2023) [facility] History of Past illness Narrative* Problem Noted Date Diagnosed Date Resolved Date Stress hyperglycemia 11/22/2019 020 Overview: History/Assessment: BG controlled Plan: Start SSI coverage Obesity, Class II, BMI 35-39.9 11/22/2019 11/22/2019 Postoperative pain 11/21/2019 0 Overview: History: No PMH of chronic pain. 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 Atelectasis 11/21/2019 11/22/2019 Overview: History: Postoperative Assessment: Grade I Airway on 1L NC Plan: OOB, wean o2, and pep Family history of hypertrophic cardiomyopathy 01/19/20 14 09/22/2018 Irregular menstrual cycle 11/05/2011 Placenta previa without hemo rrhage, antepartum 07/21/2008 10/16/2008 Supervision of normal first 03/11/2008 03/27/2009 documented as of this encounter (statuses as of 05/09/2023) [facility] History of Past illness Narrative* Problem Noted Date Diagnosed Date Resolved Date Stress hyperglycemia 11/22/2019 020 Overview: History/Assessment: BG controlled Plan: Start SSI coverage Obesity, Class II, BMI 35-39.9 11/22/2019 11/22/2019 Postoperative pain 11/21/2019 0 Overview: History: No PMH of chronic pain. 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 Atelectasis 11/21/2019 11/22/2019 Overview: History: Postoperative Assessment: Grade I Airway on 1L NC Plan: OOB, wean o2, and pep Family history of hypertrophic cardiomyopathy 01/19/20 14 09/22/2018 Irregular menstrual cycle 11/05/2011 Placenta previa without hemo rrhage, antepartum 07/21/2008 10/16/2008 Supervision of normal first 03/11/2008 03/27/2009 documented as of this encounter (statuses as of 05/11/2023) [facility] History of Past illness Narrative* Problem Noted Date Diagnosed Date Resolved Date Stress hyperglycemia 11/22/2019 020 Overview: History/Assessment: BG controlled Plan: Start SSI coverage Obesity, Class II, BMI 35-39.9 11/22/2019 11/22/2019 Postoperative pain 11/21/2019 0 Overview: History: No PMH of chronic pain. 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 Atelectasis 11/21/2019 11/22/2019 Overview: History: Postoperative Assessment: Grade I Airway on 1L NC Plan: OOB, wean o2, and pep Family history of hypertrophic cardiomyopathy 01/19/20 14 09/22/2018 Irregular menstrual cycle 11/05/2011 Placenta previa without hemo rrhage, antepartum 07/21/2008 10/16/2008 Supervision of normal first 03/11/2008 03/27/2009 documented as of this encounter (statuses as of 05/13/2023) [facility] History of Past illness Narrative* Problem Noted Date Diagnosed Date Resolved Date Stress hyperglycemia 11/22/2019 020 Overview: History/Assessment: BG controlled Plan: Start SSI coverage Obesity, Class II, BMI 35-39.9 11/22/2019 11/22/2019 Postoperative pain 11/21/2019 0 Overview: History: No PMH of chronic pain. 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 Atelectasis 11/21/2019 11/22/2019 Overview: History: Postoperative Assessment: Grade I Airway on 1L NC Plan: OOB, wean o2, and pep Family history of hypertrophic cardiomyopathy 01/19/20 14 09/22/2018 Irregular menstrual cycle 11/05/2011 Placenta previa without hemo rrhage, antepartum 07/21/2008 10/16/2008 Supervision of normal first 03/11/2008 03/27/2009 documented as of this encounter (statuses as of 05/15/2023) [facility] History of Past illness Narrative* Problem Noted Date Diagnosed Date Resolved Date Stress hyperglycemia 11/22/2019 020 Overview: History/Assessment: BG controlled Plan: Start SSI coverage Obesity, Class II, BMI 35-39.9 11/22/2019 11/22/2019 Postoperative pain 11/21/2019 0 Overview: History: No PMH of chronic pain. 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 Atelectasis 11/21/2019 11/22/2019 Overview: History: Postoperative Assessment: Grade I Airway on 1L NC Plan: OOB, wean o2, and pep Family history of hypertrophic cardiomyopathy 01/19/20 14 09/22/2018 Irregular menstrual cycle 11/05/2011 Placenta previa without hemo rrhage, antepartum 07/21/2008 10/16/2008 Supervision of normal first 03/11/2008 03/27/2009 documented as of this encounter (statuses as of 06/01/2023) [facility] History of Past illness Narrative* Problem Noted Date Diagnosed Date Resolved Date Stress hyperglycemia 11/22/2019 020 Overview: History/Assessment: BG controlled Plan: Start SSI coverage Obesity, Class II, BMI 35-39.9 11/22/2019 11/22/2019 Postoperative pain 11/21/2019 0 Overview: History: No PMH of chronic pain. 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 Atelectasis 11/21/2019 11/22/2019 Overview: History: Postoperative Assessment: Grade I Airway on 1L NC Plan: OOB, wean o2, and pep Family history of hypertrophic cardiomyopathy 01/19/20 14 09/22/2018 Irregular menstrual cycle 11/05/2011 Placenta previa without hemo rrhage, antepartum 07/21/2008 10/16/2008 Supervision of normal first 03/11/2008 03/27/2009 documented as of this encounter (statuses as of 06/02/2023) [facility] History of Past illness Narrative* Problem Noted Date Diagnosed Date Resolved Date Stress hyperglycemia 11/22/2019 020 Overview: History/Assessment: BG controlled Plan: Start SSI coverage Obesity, Class II, BMI 35-39.9 11/22/2019 11/22/2019 Postoperative pain 11/21/2019 0 Overview: History: No PMH of chronic pain. 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 Atelectasis 11/21/2019 11/22/2019 Overview: History: Postoperative Assessment: Grade I Airway on 1L NC Plan: OOB, wean o2, and pep Family history of hypertrophic cardiomyopathy 01/19/20 14 09/22/2018 Irregular menstrual cycle 11/05/2011 Placenta previa without hemo rrhage, antepartum 07/21/2008 10/16/2008 Supervision of normal first 03/11/2008 03/27/2009 documented as of this encounter (statuses as of 08/09/2023) [facility] History of Past illness Narrative* Problem Noted Date Diagnosed Date Resolved Date Stress hyperglycemia 11/22/2019 020 Overview: History/Assessment: BG controlled Plan: Start SSI coverage Obesity, Class II, BMI 35-39.9 11/22/2019 11/22/2019 Postoperative pain 11/21/2019 0 Overview: History: No PMH of chronic pain. 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 Atelectasis 11/21/2019 11/22/2019 Overview: History: Postoperative Assessment: Grade I Airway on 1L NC Plan: OOB, wean o2, and pep Family history of hypertrophic cardiomyopathy 01/19/20 14 09/22/2018 Irregular menstrual cycle 11/05/2011 Placenta previa without hemo rrhage, antepartum 07/21/2008 10/16/2008 Supervision of normal first 03/11/2008 03/27/2009 documented as of this encounter (statuses as of 08/09/2023) [facility] History of Past illness Narrative* Problem Noted Date Diagnosed Date Resolved Date Stress hyperglycemia 11/22/2019 020 Overview: History/Assessment: BG controlled Plan: Start SSI coverage Obesity, Class II, BMI 35-39.9 11/22/2019 11/22/2019 Postoperative pain 11/21/2019 0 Overview: History: No PMH of chronic pain. 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 Atelectasis 11/21/2019 11/22/2019 Overview: History: Postoperative Assessment: Grade I Airway on 1L NC Plan: OOB, wean o2, and pep Family history of hypertrophic cardiomyopathy 01/19/20 14 09/22/2018 Irregular menstrual cycle 11/05/2011 Placenta previa without hemo rrhage, antepartum 07/21/2008 10/16/2008 Supervision of normal first 03/11/2008 03/27/2009 documented as of this encounter (statuses as of 08/09/2023) [facility] October 26, 2022 4:49am Note Date/Time October 26, 2022 4 :17am [facility] Medical Records Department [address] [place] [address] Emergency Department Summary 10/26/22 MR#: [id number] Acct: [id number] Name: CHAVO TOM Rep #:[id number] : 1980 42 From: Jerome Foafna PCP: HALEY Rios Status:REG E R Location: ED HPI History of Present Illness Chief Complaint: Palpitations Informant: patient Narrative Narrative: Sudden palpitations 12:30 AM less than 4 hours prior to arrival. Lightheaded with standing or exertion. No chest pains. History of atrial fibrillation. History of WPW and HOCM. She had cardiac surgery at [facility] 2 years ago. Reports also had valve repair. She has a implantable AICD. She is on Eliquis twice a day. She is on metoprolol 37.5 mg twice a day. She is on sotalol 120 twice daily. She is taking her medications. Her last dose 7:30 PM. Denies cough. Denies recent vomiting or diarrhea. 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 Reports last recurrent symptoms 2 months ago self-limiting. She has been cardioverted in the past. Last meal at 6 PM. Prior similar symptoms: Yes PFSH PFSH Medical History Afib Atrial flutter Borderline diabetes Fatigue Heart disease Presence of combination internal cardiac defibrillator (ICD) and pacemaker Shortness of breath Home Medications metoprolol tartrate 25 mg tablet 37.5 mg PO BID 02/21/14 [History Last Taken 12/16/19] apixaban 5 mg tablet 5 mg PO BID #60 tabs 11/30/19 [Rx Last Taken 12/16/19] aspirin 81 mg tablet,delayed release 81 mg PO DAILY 12/16/19 [History Last Taken 12/16/19] sotalol 120 mg tablet 120 mg PO BID 06/12/21 [History Last Taken Unknown] semaglutide (weight loss) 2.4 mg/0.75 mL subcutaneous pen injector (Wegovy) 2.4 mg subcut MO 06/26/22 [History Last Taken Unknown] Allergy/AdvReac Type Severity Reaction Status Date / Time No Known Allergies Allergy Verified 10/26/22 04:04 Surgical History H/O cardiac radiofrequency ablation History of heart surgery Hx of tympanostomy tubes Social History Smoking Status: Never smoker alcohol intake: never ROS ROS ED Constitutional Constitutional ED: Denies chills, fever(s) or sweats Eyes Eyes: Denies change in vision ENT ENT ED: Denies dysphagia or sore throat Cardiovascular Cardiovascular: Reports palpitations; Denies chest pain, leg edema or racing heartbeat Respiratory/Chest Respiratory/Chest: Denies cough, dyspnea or dyspnea on exertion Gastrointestinal Gastrointestinal: Denies abdominal pain, diarrhea, nausea or vomiting Genitourinary Genitourinary ED: Denies dysuria, hematuria or urinary frequency Musculoskeletal Musculoskeletal: Denies back pain, extremity pain or neck pain Integumentary Denies rash or wounds Neurologic Neurologic: Denies headache(s), paresthesias or weakness EXAM Physical Exam Const Vital Signs: 10/26/22 04:02 10/26/22 04:24 Temperature 97.9 F Temperature Source Temporal Pulse Rate 144 H 84 Respiratory Rate 18 16 Blood Pressure 104/72 100/73 Blood Pressure Mean 82 82 Pulse Ox 99 97 Oxygen Delivery Method Room Air Room Air Positive well nourished and well developed General Appearance ED: well developed and NAD HEENT Reports moist mucous membranes normocephalic and atraumatic Eyes PERRL, EOMs intact bilaterally and conjunctivae normal General Eye ED: Yes normal appearance of both eyes Neck no lymphadenopathy and supple General: Negative for tenderness Chest Wall Chest: Negative for tenderness Resp normal respiratory effort and normal air movement Effort and Inspection: symmetric chest movement; Negative for respiratory distress Cardio no murmurs Rate: tachycardic Rhythm: abnormal rhythm Peripheral Pulses: pulses 2+ throughout GI normal to inspection, nondistended, normoactive bowel sounds and non-tender Palpation: Negative for guarding or rebound tenderness present Back/Spine no CVA tenderness and no thoracic nor lumbar tenderness Extremity normal to inspection General Extremety ED: Negative for edema or tenderness General Extremity: Negative for edema Neuro oriented x3 and no sensory deficits noted Sensorium / Orientation: awake and alert Skin no rashes or lesions noted and no wounds MDM MDM MDM Narrative Medical decision making narrative: Differential with palpitations atrial fibrillation SVT, V. fib V. tach, history we will Parkinson syndrome. However EKG notes patient is A. fib with RVR. Softblood pressure 104. Discussed and considered cardioversion with her on Eliquis. However she states she is converted with medications in the past we will attempt 1 dose of IV Lopressor. Labs were obtained. 0420: Shortly after start of Lopressor she was 2 mg in I checked on her with nursing, she converted on the monitor. This was stopped after 2 mg. Heart ratein the 80s. We will repeat EKG. Laboratory studies are stable with normal electrolytes. Chest x-ray 1 view interpreted by myself shows no acute process. AICD device noted left lateral chest wall. Patient clinically remains improved and back in sinus rhythm on reevaluation. She is discharged with outpatient follow-up. All questions were answered. Lab Data Attestation: I reviewed the patient's lab results. Labs: Laboratory Results - last 24 hr 10/26/22 10/26/22 04:10 04:10 WBC 10.2 RBC 5.10 Hgb 14.9 Hct 44.5 MCV 87.3 MCH 29.2 MCHC 33.5 RDW Std Deviation 43.0 RDW Coeff of Ramesh 13.4 Plt Count 346 MPV 11.1 Immature Gran % (Auto) 0.200 Neut % (Auto) 68.3 Lymph % (Auto) 21.7 [place] % (Auto) 6.7 Eos % (Auto) 2.5 Baso % (Auto) 0.6 Absolute Neuts (auto) 7.0 Absolute Lymphs (auto) 2.21 Nucleated RBC % 0 Sodium 139 Potassium 4.1 Chloride 108 H Carbon Dioxide 24.0 Anion Gap 7 BUN 19 H Creatinine 0.84 Estim Creat Clear Calc 88.01 Est GFR (MDRD) Af Amer 96 Est GFR (MDRD) Non-Af 80 BUN/Creatinine Ratio 22.8 H Glucose 162 H Calcium 8.6 Magnesium 2.1 EKG Initial EKG: Attestation: I personally reviewed and interpreted this EKG as follows: Comments: A. fib RVR rate of 136, left bundle branch block. Prior: Changed Follow-up EKG: Attestation: I personally reviewed and interpreted this EKG as follows: Comments: At 0 424: Sinus rhythm rate of 82, left bundle branch block. Previous similar left bundle branch block. Discharge Plan Triage Chief Complaint: Palpitations ED Provider: Jerome Brower Dx/Rx/DC Orders Clinical Impression: HOCM (hypertrophic obstructive cardiomyopathy), WPW (Ewhjm-Jvvaumsht-Cexkb syndrome), Paroxysmal atrial fibrillation, AICD (automatic cardioverter/defibrillator) present, Atrial fibrillation, currently in sinus rhythm Instructions: ED AFIB Prescriptions: No Action metoprolol tartrate 25 MG tablet 37.5 mg PO BID apixaban 5 MG tablet 5 mg PO BID Qty: 60 0RF aspirin 81 MG tablet,delayed release (DR/EC) 81 mg PO DAILY sotalol 120 mg Tablet 120 mg PO BID Wegovy 2.4 mg/0.75 mL pen injector 2.4 mg SUBCUT MO Primary Care Provider: Kylah Palma Referrals: Kylah Palma PA [Primary Care Provider] - Activity Restrictions/Additional Instructions: Atrial fibrillation back to normal sinus rhythm. Continue home medications. Follow-up with your cargo [facility]. Return if any worsening symptoms. Disposition Disposition: Home, Self Care What to do if you have Problems For any increased pain, shortness of breath, bleeding, nausea or vomiting, chestpain, or any unexpected problems, contact your Primary Care Provider. Call [employer] [facility] ([phone]) or report to the closest Emergency Room. Call 911 if necessary. 10/26/22 1306 <Electronically signed by Jerome Fofana> Cosigner Signature (if applicable): CC: HALEY Palma ~ [facility] Work Phone: Evaluation note* Diagnosis Ventricular tachyarrhythmia (HCC)- Primary Paroxysmal ventricular tachycardia Paroxysmal atrial fibrillation (HCC) Atrial fibrillation [facility] Diagnosis Mixed hyperlipidemia- Primary Obesity, Class III, BMI 40-49.9 (morbid obesity) (HCC) Morbid obesity Prediabetes Other abnormal glucose [facility]* Diagnosis Paroxysmal atrial fibrillation (HCC)- Primary Atrial fibrillation Dilated cardiomyopathy (HCC) Other primary cardiomyopathies Acute on chronic diastolic (congestive) heart failure (HCC) ICD (implantable cardioverter-defibrillator) in place Automatic implantable cardiac defibrillator in situ HOCM (hypertrophic obstructive cardiomyopathy) (HCC) Hypertrophic obstructive cardiomyopathy Zhgot-Zrplmrszw-Uodgn (WPW) syndrome Anomalous atrioventricular excitation Left bundle branch block Other left bundle branch block Ventricular tachyarrhythmia (HCC) Paroxysmal ventricular tachycardia Palpitation Palpitations Thyroid nodule, cold Nontoxic uninodular goiter Impaired glucose tolerance Impaired glucose tolerance test Class 3 severe obesity due to excess calories without serious comorbidity with body mass index (BMI) of 45.0 to 49.9 in adult (HCC) Elevated TSH Nonspecific abnormal results of thyroid function study Chronic anticoagulation Long-term (current) use of 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 Vaginal high risk HPV DNA test positive Vaginal high risk human papillomavirus (HPV) DNA test positive Patient under care of multiple providers [facility] noteNo assessment information availableWWyandot [facility] Work Phone: Evaluation note* Diagnosis Paroxysmal atrial fibrillation (HCC)- Primary Atrial fibrillation [facility]* Diagnosis Suspected COVID-19 virus infection- Primary [facility] COVID-19- Primary [facility]* Diagnosis HOCM (hypertrophic obstructive cardiomyopathy) (HCC)- Primary Hypertrophic obstructive cardiomyopathy [facility]* Diagnosis [place] eye disease of both eyes- Primary [facility] Diagnosis Obesity, Class III, BMI 40-49.9 (morbid obesity) (HCC)- Primary Morbid obesity Dietary counseling and surveillance Dietary surveillance and counseling [facility]* Diagnosis Acute midline low back pain with left-sided sciatica- Primary Leukocytes in urine Other cells and casts in urine [facility] Diagnosis HOCM (hypertrophic obstructive cardiomyopathy) (HCC)- Primary Hypertrophic obstructive cardiomyopathy Class 3 obesity (HCC)- Primary Dietary counseling and surveillance Dietary surveillance and counseling [facility]* Diagnosis HOCM (hypertrophic obstructive cardiomyopathy) (HCC)- Primary Hypertrophic obstructive cardiomyopathy [facility]* Diagnosis HOCM (hypertrophic obstructive cardiomyopathy) (HCC)- Primary Hypertrophic obstructive cardiomyopathy Paroxysmal atrial fibrillation (HCC) Atrial fibrillation [facility] Diagnosis QUINTON (obstructive sleep apnea)- Primary Obstructive sleep apnea (adult) (pediatric) Abnormal ultrasound Other nonspecific (abnormal) findings on radiological and other examinations of body structure [facility]* Diagnosis QUINTON (obstructive sleep apnea)- Primary Obstructive sleep apnea (adult) (pediatric) Paroxysmal atrial fibrillation (HCC) Atrial fibrillation Acute on chronic diastolic (congestive) heart failure ([facility]) [facility]* Diagnosis 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 Irregular astigmatism of both eyes Irregular astigmatism Dry eye syndrome of both eyes [facility]* Diagnosis HOCM (hypertrophic obstructive cardiomyopathy) (HCC)- Primary Hypertrophic obstructive cardiomyopathy [facility] Diagnosis 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 Irregular astigmatism of both eyes Irregular astigmatism Dry eye syndrome of both eyes [facility]* Diagnosis Class 3 severe obesity due to excess calories with serious comorbidity 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.9 in adult (HCC)- Primary Hypertrophic obstructive cardiomyopathy (HOCM) (HCC) Hypertrophic obstructive cardiomyopathy Pre-op examination Preoperative examination, unspecified [facility]* Diagnosis 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 Irregular astigmatism of both eyes Irregular astigmatism Dry eye syndrome of both eyes Class 3 severe obesity due to excess calories with serious comorbidity 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.9 in adult (HCC) Hypertrophic obstructive cardiomyopathy (HOCM) (HCC) Hypertrophic obstructive cardiomyopathy Pre-op examination Preoperative examination, unspecified [facility]* Diagnosis Preoperative examination- Primary Preoperative examination, unspecified Body mass index 40.0-44.9, adult ([facility]) Body Mass Index 40.0-44.9, adult Obstructive sleep apnea (adult) (pediatric) 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 Long-term (current) use of 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 Obesity, Class II, BMI 35-39.9 Obesity, unspecified Class 3 severe obesity due to excess calories with serious comorbidity 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.9 in adult ([facility]) Hypertrophic obstructive cardiomyopathy (HOCM) ([facility]) Hypertrophic obstructive cardiomyopathy Pre-op examination Preoperative examination, unspecified [facility]* Diagnosis Pre-op evaluation- Primary Preoperative examination, unspecified HOCM (hypertrophic obstructive cardiomyopathy) ([facility]) Hypertrophic obstructive cardiomyopathy Agfrr-Awzflyftc-Umhxz (WPW) syndrome Anomalous atrioventricular excitation Paroxysmal atrial fibrillation ([facility]) Atrial fibrillation ICD (implantable cardioverter-defibrillator) in place Automatic implantable cardiac defibrillator in situ Acute on chronic diastolic (congestive) heart failure ([facility]) QUINTON (obstructive sleep apnea) Obstructive sleep apnea (adult) (pediatric) Body mass index 40.0-44.9, adult (HCC) Body Mass Index 40.0-44.9, adult Pre-diabetes Other abnormal glucose Class 3 severe obesity due to excess calories with serious comorbidity 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.9 in adult ([facility]) Hypertrophic obstructive cardiomyopathy (HOCM) ([facility]) Hypertrophic obstructive cardiomyopathy Pre-op examination Preoperative examination, unspecified [facility]* Diagnosis Obesity, Class III, BMI 40-49.9 (morbid obesity) ([facility])- Primary Morbid obesity Dietary counseling and surveillance Dietary surveillance and counseling Class 3 severe obesity due to excess calories with serious comorbidity 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.9 in adult ([facility]) Hypertrophic obstructive cardiomyopathy (HOCM) ([facility]) Hypertrophic obstructive cardiomyopathy Pre-op examination Preoperative examination, unspecified [facility]* Diagnosis QUINTON (obstructive sleep apnea)- Primary Obstructive sleep apnea (adult) (pediatric) Paroxysmal atrial fibrillation (HCC) Atrial fibrillation Class 3 severe obesity due to excess calories with serious comorbidity 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.9 in adult ([facility]) Hypertrophic obstructive cardiomyopathy (HOCM) (HCC) Hypertrophic obstructive cardiomyopathy Pre-op examination Preoperative examination, unspecified [facility]* Diagnosis Impaired intestinal absorption- Primary Unspecified intestinal malabsorption S/P gastric bypass Bariatric surgery status Obesity, Class II, BMI 35-39.9 Obesity, unspecified Dietary counseling and surveillance Dietary surveillance and counseling [facility]* Diagnosis S/P gastric bypass- Primary Bariatric surgery status Postoperative state Other postprocedural status [facility]* Diagnosis Paroxysmal atrial fibrillation (HCC)- Primary Atrial fibrillation [facility]* Diagnosis PAF (paroxysmal atrial fibrillation) (HCC)- Primary Atrial fibrillation [facility]* Diagnosis 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- Primary Long-term (current) use of 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 [facility]* Diagnosis halfway (current) use of 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 Long-term (current) use of 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 Paroxysmal atrial fibrillation (HCC) Atrial fibrillation [facility]* Diagnosis halfway (current) use of 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 Long-term (current) use of 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 Paroxysmal atrial fibrillation (HCC) Atrial fibrillation [facility]* Diagnosis halfway (current) use of 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 Long-term (current) use of 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 Paroxysmal atrial fibrillation (HCC) Atrial fibrillation [facility]* Diagnosis Dysuria- Primary [facility]* Diagnosis Bariatric surgery status- Primary S/P gastric bypass Bariatric surgery status Postoperative state Other postprocedural status Dysuria 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 Long-term (current) use of 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 Obstructive sleep apnea (adult) (pediatric) [facility]* Diagnosis 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 Long-term (current) use of 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 Paroxysmal atrial fibrillation (HCC) Atrial fibrillation [facility]* Diagnosis Paroxysmal atrial fibrillation (HCC)- Primary Atrial fibrillation halfway (current) use of 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 Long-term (current) use of 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 HOCM (hypertrophic obstructive cardiomyopathy) (HCC) Hypertrophic obstructive cardiomyopathy ICD (implantable cardioverter-defibrillator) in place Automatic implantable cardiac defibrillator in situ S/P ablation of accessory bypass tract Other postprocedural status [facility] Abnormal urine- Primary Other nonspecific finding on examination of urine Paroxysmal atrial fibrillation (HCC) Atrial fibrillation Acute on chronic diastolic (congestive) heart failure (HCC) Dilated cardiomyopathy (HCC) Other primary cardiomyopathies HOCM (hypertrophic obstructive cardiomyopathy) (HCC) Hypertrophic obstructive cardiomyopathy ICD (implantable cardioverter-defibrillator) in place Automatic implantable cardiac defibrillator in situ 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 Long-term (current) use of 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 Impaired glucose tolerance Impaired glucose tolerance test Obesity, Class II, BMI 35-39.9 Obesity, unspecified QUINTON (obstructive sleep apnea) Obstructive sleep apnea (adult) (pediatric) S/P ablation of accessory bypass tract Other postprocedural status S/P gastric bypass Bariatric surgery status Avpfh-Msdddlslf-Micfu (WPW) syndrome Anomalous atrioventricular excitation [facility]* Diagnosis Symptomatic cholelithiasis- Primary Calculus of gallbladder without mention of cholecystitis or obstruction Obesity, Class I, BMI 30-34.9 Obesity, unspecified S/P gastric bypass Bariatric surgery status Cholelithiasis with choledocholithiasis Calculus of gallbladder and bile duct without cholecystitis, without mention of obstruction S/P gastric bypass Bariatric surgery status Hypertrophic obstructive cardiomyopathy (HCC) [facility] Diagnosis Cholelithiasis with choledocholithiasis- Primary Calculus of gallbladder and bile duct without cholecystitis, without mention of obstruction S/P gastric bypass Bariatric surgery status Hypertrophic obstructive cardiomyopathy (HCC) Cholelithiasis with choledocholithiasis Calculus of gallbladder and bile duct without cholecystitis, without mention of obstruction S/P gastric bypass Bariatric surgery status Hypertrophic obstructive cardiomyopathy (HCC) [facility] Diagnosis Atrial fibrillation, unspecified type (HCC)- Primary Paroxysmal atrial fibrillation (HCC) Atrial fibrillation 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 Long-term (current) use of 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 Cholelithiasis with choledocholithiasis Calculus of gallbladder and bile duct without cholecystitis, without mention of obstruction S/P gastric bypass Bariatric surgery status Hypertrophic obstructive cardiomyopathy (HCC) [facility]* Diagnosis Pre-op evaluation- Primary Preoperative examination, unspecified Oylix-Dnnjitmcl-Rgpta (WPW) syndrome Anomalous atrioventricular excitation Paroxysmal atrial fibrillation (HCC) Atrial fibrillation HOCM (hypertrophic obstructive cardiomyopathy) (HCC) Hypertrophic obstructive cardiomyopathy ICD (implantable cardioverter-defibrillator) in place Automatic implantable cardiac defibrillator in situ Acute on chronic diastolic (congestive) heart failure (HCC) QUINTON (obstructive sleep apnea) Obstructive sleep apnea (adult) (pediatric) S/P gastric bypass Bariatric surgery status Pre-diabetes Other abnormal glucose Obesity, Class I, BMI 30-34.9 Obesity, unspecified Cholelithiasis with choledocholithiasis Calculus of gallbladder and bile duct without cholecystitis, without mention of obstruction S/P gastric bypass Bariatric surgery status Hypertrophic obstructive cardiomyopathy (HCC) [facility] Diagnosis Atrial fibrillation, unspecified type (HCC)- Primary Paroxysmal atrial fibrillation (HCC) Atrial fibrillation halfway (current) use of 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 Long-term (current) use of 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 Cholelithiasis with choledocholithiasis Calculus of gallbladder and bile duct without cholecystitis, without mention of obstruction S/P gastric bypass Bariatric surgery status Hypertrophic obstructive cardiomyopathy (HCC) [facility] Diagnosis Atrial fibrillation, unspecified type (HCC)- Primary Paroxysmal atrial fibrillation (HCC) Atrial fibrillation halfway (current) use of 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 Long-term (current) use of 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 [facility] Diagnosis S/P gastric bypass- Primary Bariatric surgery status Obesity, Class I, BMI 30-34.9 Obesity, unspecified Dietary counseling and surveillance Dietary surveillance and counseling [facility] Diagnosis Atrial fibrillation, unspecified type (HCC)- Primary Paroxysmal atrial fibrillation (HCC) Atrial fibrillation 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 Long-term (current) use of 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 [facility] Diagnosis Atrial fibrillation, unspecified type (HCC)- Primary Paroxysmal atrial fibrillation (HCC) Atrial fibrillation 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 Long-term (current) use of 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 [facility] HOCM (hypertrophic obstructive cardiomyopathy) (HCC)- Primary Hypertrophic obstructive cardiomyopathy Paroxysmal atrial fibrillation (HCC) Atrial fibrillation Overweight [facility] Diagnosis Atrial fibrillation, unspecified type (HCC)- Primary Paroxysmal atrial fibrillation (HCC) Atrial fibrillation halfway (current) use of 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 Long-term (current) use of 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 [facility] Diagnosis Paroxysmal atrial fibrillation (HCC)- Primary Atrial fibrillation halfway (current) use of 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 Long-term (current) use of 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 documented in this encounter [facility]* Diagnosis Encounter for screening mammogram for breast cancer documented in this encounter [facility] note* Diagnosis Class 3 obesity with alveolar hypoventilation, serious comorbidity, 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.9 in adult (HCC) documented in this encounter [facility] note* Diagnosis Liver nodule Other specified disorders of liver documented in this encounter [facility] note* Diagnosis Impaired intestinal absorption- Primary Unspecified intestinal malabsorption S/P gastric bypass Bariatric surgery status Overweight (BMI 25.0-29.9) Overweight Dietary counseling and surveillance Dietary surveillance and counseling documented in this encounter [facility] note* Diagnosis Paroxysmal atrial fibrillation (HCC)- Primary Atrial fibrillation halfway (current) use of 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 Long-term (current) use of 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 Atrial fibrillation, unspecified type (HCC) documented in this encounter [facility] note* Diagnosis Lumbar radiculopathy- Primary Thoracic or lumbosacral neuritis or radiculitis, unspecified documented in this encounter [facility] note* Diagnosis Abnormal mammogram Abnormal mammogram, unspecified documented in this encounter [facility] note* Diagnosis Abnormal mammogram Abnormal mammogram, unspecified documented in this encounter [facility] note* Diagnosis Paroxysmal atrial fibrillation (HCC)- Primary Atrial fibrillation 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 Long-term (current) use of 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 Atrial fibrillation, unspecified type (HCC) documented in this encounter [facility] note* Diagnosis Paroxysmal atrial fibrillation (HCC)- Primary Atrial fibrillation halfway (current) use of 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 Long-term (current) use of 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 documented in this encounter [facility] note* Diagnosis Paroxysmal atrial fibrillation (HCC)- Primary Atrial fibrillation halfway (current) use of 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 Long-term (current) use of 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 Atrial fibrillation, unspecified type (HCC) documented in this encounter [facility] note* Diagnosis Paroxysmal atrial fibrillation (HCC)- Primary Atrial fibrillation 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 Long-term (current) use of 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 Atrial fibrillation, unspecified type (HCC) documented in this encounter [facility] note* Diagnosis Atrial fibrillation, unspecified type (HCC)- Primary Paroxysmal atrial fibrillation (HCC) Atrial fibrillation halfway (current) use of 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 Long-term (current) use of 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 [facility]* Diagnosis Atrial fibrillation, unspecified type (HCC)- Primary HOCM (hypertrophic obstructive cardiomyopathy) (HCC) Hypertrophic obstructive cardiomyopathy Ventricular tachyarrhythmia (HCC) Paroxysmal ventricular tachycardia [facility]* Diagnosis Paroxysmal atrial fibrillation (HCC)- Primary Atrial fibrillation 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 Long-term (current) use of 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 Atrial fibrillation, unspecified type (HCC) [facility]* Diagnosis S/P gastric bypass- Primary Bariatric surgery status Vitamin D deficiency, unspecified [facility]* Diagnosis Atrial fibrillation, unspecified type (HCC)- Primary Paroxysmal atrial fibrillation (HCC) Atrial fibrillation 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 Long-term (current) use of 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 [facility]* Diagnosis S/P gastric bypass- Primary Bariatric surgery status [facility] Diagnosis Atrial fibrillation, unspecified type (HCC)- Primary Paroxysmal atrial fibrillation (HCC) Atrial fibrillation halfway (current) use of 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 Long-term (current) use of 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 [facility] Diagnosis Atrial fibrillation, unspecified type (HCC)- Primary [facility] Diagnosis Rosacea keratitis- Primary Rosacea Irregular astigmatism of both eyes Irregular astigmatism 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 [facility] Diagnosis Atrial fibrillation, unspecified type (HCC)- Primary Paroxysmal atrial fibrillation (HCC) Atrial fibrillation 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 Long-term (current) use of 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 [facility] Diagnosis Atrial fibrillation, unspecified type (HCC)- Primary Paroxysmal atrial fibrillation (HCC) Atrial fibrillation halfway (current) use of 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 Long-term (current) use of 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 [facility] Atrial fibrillation, unspecified type (HCC)- Primary Paroxysmal atrial fibrillation (HCC) Atrial fibrillation 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 Long-term (current) use of 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 Irregular astigmatism of both eyes Irregular astigmatism 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 [facility] Pre-op exam- Primary Preoperative examination, unspecified Irregular astigmatism of both eyes Irregular astigmatism 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 [facility] Paroxysmal atrial fibrillation (HCC)- Primary Atrial fibrillation 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 Long-term (current) use of 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 Atrial fibrillation, unspecified type (HCC) Irregular astigmatism of both eyes Irregular astigmatism 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 [facility] NO SHOW- Primary Irregular astigmatism of both eyes Irregular astigmatism 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 [facility] Atrial fibrillation, unspecified type (HCC)- Primary Paroxysmal atrial fibrillation (HCC) Atrial fibrillation 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 Long-term (current) use of 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 Irregular astigmatism of both eyes Irregular astigmatism 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 [facility] Atrial fibrillation, unspecified type (HCC)- Primary Paroxysmal atrial fibrillation (HCC) Atrial fibrillation halfway (current) use of anticoagulants Long-term (current) use of anticoagulants [facility] Diagnosis Paroxysmal atrial fibrillation (HCC) Atrial fibrillation Acute on chronic diastolic (congestive) heart failure (HCC) Dilated cardiomyopathy (HCC) Other primary cardiomyopathies HOCM (hypertrophic obstructive cardiomyopathy) (HCC) Hypertrophic obstructive cardiomyopathy Hgaqe-Lvpbglfqo-Mvlwq (WPW) syndrome Anomalous atrioventricular excitation [facility]* Diagnosis 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 Irregular astigmatism of both eyes Irregular astigmatism [facility] Diagnosis Atrial fibrillation, unspecified type (HCC)- Primary Paroxysmal atrial fibrillation (HCC) Atrial fibrillation 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 anticoagulants Long-term (current) use of anticoagulants [facility] Diagnosis 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 Irregular astigmatism of both eyes Irregular astigmatism [facility] Diagnosis Pre-op evaluation- Primary Preoperative examination, unspecified HOCM (hypertrophic obstructive cardiomyopathy) (HCC) Hypertrophic obstructive cardiomyopathy Anzmj-Slwfiibud-Kidal (WPW) syndrome Anomalous atrioventricular excitation Paroxysmal atrial fibrillation (HCC) Atrial fibrillation ICD (implantable cardioverter-defibrillator) in place Automatic implantable cardiac defibrillator in situ Acute on chronic diastolic (congestive) heart failure (HCC) QUINTON (obstructive sleep apnea) Obstructive sleep apnea (adult) (pediatric) Body mass index 40.0-44.9, adult (HCC) Body Mass Index 40.0-44.9, adult Pre-diabetes Other abnormal glucose Pre-op evaluation- Primary Preoperative examination, unspecified Szqhn-Wrlxhsanu-Auhwr (WPW) syndrome Anomalous atrioventricular excitation Paroxysmal atrial fibrillation (HCC) Atrial fibrillation HOCM (hypertrophic obstructive cardiomyopathy) (HCC) Hypertrophic obstructive cardiomyopathy ICD (implantable cardioverter-defibrillator) in place Automatic implantable cardiac defibrillator in situ Acute on chronic diastolic (congestive) heart failure (HCC) QUINTON (obstructive sleep apnea) Obstructive sleep apnea (adult) (pediatric) S/P gastric bypass Bariatric surgery status Pre-diabetes Other abnormal glucose Obesity, Class I, BMI 30-34.9 Obesity, unspecified Atrial fibrillation, unspecified type (HCC)- Primary Paroxysmal atrial fibrillation (HCC) Atrial fibrillation 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 anticoagulants Long-term (current) use of anticoagulants [facility] Diagnosis Pre-op evaluation- Primary Preoperative examination, unspecified HOCM (hypertrophic obstructive cardiomyopathy) (HCC) Hypertrophic obstructive cardiomyopathy Tvane-Ymvsvuyod-Qiocy (WPW) syndrome Anomalous atrioventricular excitation Paroxysmal atrial fibrillation (HCC) Atrial fibrillation ICD (implantable cardioverter-defibrillator) in place Automatic implantable cardiac defibrillator in situ Acute on chronic diastolic (congestive) heart failure (HCC) QUINTON (obstructive sleep apnea) Obstructive sleep apnea (adult) (pediatric) Body mass index 40.0-44.9, adult (HCC) Body Mass Index 40.0-44.9, adult Pre-diabetes Other abnormal glucose Pre-op evaluation- Primary Preoperative examination, unspecified Kbbek-Hqdsgvcfu-Zbrfs (WPW) syndrome Anomalous atrioventricular excitation Paroxysmal atrial fibrillation (HCC) Atrial fibrillation HOCM (hypertrophic obstructive cardiomyopathy) (HCC) Hypertrophic obstructive cardiomyopathy ICD (implantable cardioverter-defibrillator) in place Automatic implantable cardiac defibrillator in situ Acute on chronic diastolic (congestive) heart failure (HCC) QUINTON (obstructive sleep apnea) Obstructive sleep apnea (adult) (pediatric) S/P gastric bypass Bariatric surgery status Pre-diabetes Other abnormal glucose Obesity, Class I, BMI 30-34.9 Obesity, unspecified 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 Irregular astigmatism of both eyes Irregular astigmatism [facility] Pre-op evaluation- Primary Preoperative examination, unspecified HOCM (hypertrophic obstructive cardiomyopathy) (HCC) Hypertrophic obstructive cardiomyopathy Rzqeg-Zfrsfnjll-Rawpp (WPW) syndrome Anomalous atrioventricular excitation Paroxysmal atrial fibrillation (HCC) Atrial fibrillation ICD (implantable cardioverter-defibrillator) in place Automatic implantable cardiac defibrillator in situ Acute on chronic diastolic (congestive) heart failure (HCC) QUINTON (obstructive sleep apnea) Obstructive sleep apnea (adult) (pediatric) Body mass index 40.0-44.9, adult (HCC) Body Mass Index 40.0-44.9, adult Pre-diabetes Other abnormal glucose Pre-op evaluation- Primary Preoperative examination, unspecified Augge-Cryurarzk-Uphkn (WPW) syndrome Anomalous atrioventricular excitation Paroxysmal atrial fibrillation (HCC) Atrial fibrillation HOCM (hypertrophic obstructive cardiomyopathy) (HCC) Hypertrophic obstructive cardiomyopathy ICD (implantable cardioverter-defibrillator) in place Automatic implantable cardiac defibrillator in situ Acute on chronic diastolic (congestive) heart failure (HCC) QUINTON (obstructive sleep apnea) Obstructive sleep apnea (adult) (pediatric) S/P gastric bypass Bariatric surgery status Pre-diabetes Other abnormal glucose Obesity, Class I, BMI 30-34.9 Obesity, unspecified Paroxysmal atrial fibrillation (HCC)- Primary Atrial fibrillation 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 anticoagulants Long-term (current) use of anticoagulants [facility]* Diagnosis Pre-op evaluation- Primary Preoperative examination, unspecified HOCM (hypertrophic obstructive cardiomyopathy) (HCC) Hypertrophic obstructive cardiomyopathy Bbjqm-Jexzwvgdf-Rxbew (WPW) syndrome Anomalous atrioventricular excitation Paroxysmal atrial fibrillation (HCC) Atrial fibrillation ICD (implantable cardioverter-defibrillator) in place Automatic implantable cardiac defibrillator in situ Acute on chronic diastolic (congestive) heart failure (HCC) QUINTON (obstructive sleep apnea) Obstructive sleep apnea (adult) (pediatric) Body mass index 40.0-44.9, adult (HCC) Body Mass Index 40.0-44.9, adult Pre-diabetes Other abnormal glucose Pre-op evaluation- Primary Preoperative examination, unspecified Ijnzf-Ffrutjqnx-Nlpxr (WPW) syndrome Anomalous atrioventricular excitation Paroxysmal atrial fibrillation (HCC) Atrial fibrillation HOCM (hypertrophic obstructive cardiomyopathy) (HCC) Hypertrophic obstructive cardiomyopathy ICD (implantable cardioverter-defibrillator) in place Automatic implantable cardiac defibrillator in situ Acute on chronic diastolic (congestive) heart failure (HCC) QUINTON (obstructive sleep apnea) Obstructive sleep apnea (adult) (pediatric) S/P gastric bypass Bariatric surgery status Pre-diabetes Other abnormal glucose Obesity, Class I, BMI 30-34.9 Obesity, unspecified 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 [facility] Pre-op evaluation- Primary Preoperative examination, unspecified HOCM (hypertrophic obstructive cardiomyopathy) (HCC) Hypertrophic obstructive cardiomyopathy Coicl-Pdjqfndea-Nygno (WPW) syndrome Anomalous atrioventricular excitation Paroxysmal atrial fibrillation (HCC) Atrial fibrillation ICD (implantable cardioverter-defibrillator) in place Automatic implantable cardiac defibrillator in situ Acute on chronic diastolic (congestive) heart failure (HCC) QUINTON (obstructive sleep apnea) Obstructive sleep apnea (adult) (pediatric) Body mass index 40.0-44.9, adult (HCC) Body Mass Index 40.0-44.9, adult Pre-diabetes Other abnormal glucose Pre-op evaluation- Primary Preoperative examination, unspecified Odtwo-Fcwgjlfrt-Gkunh (WPW) syndrome Anomalous atrioventricular excitation Paroxysmal atrial fibrillation (HCC) Atrial fibrillation HOCM (hypertrophic obstructive cardiomyopathy) (HCC) Hypertrophic obstructive cardiomyopathy ICD (implantable cardioverter-defibrillator) in place Automatic implantable cardiac defibrillator in situ Acute on chronic diastolic (congestive) heart failure (HCC) QUINTON (obstructive sleep apnea) Obstructive sleep apnea (adult) (pediatric) S/P gastric bypass Bariatric surgery status Pre-diabetes Other abnormal glucose Obesity, Class I, BMI 30-34.9 Obesity, unspecified Atrial fibrillation, unspecified type (HCC)- Primary Paroxysmal atrial fibrillation (HCC) Atrial fibrillation halfway (current) use of anticoagulants Long-term (current) use of anticoagulants [facility] Diagnosis Pre-op evaluation- Primary Preoperative examination, unspecified HOCM (hypertrophic obstructive cardiomyopathy) (HCC) Hypertrophic obstructive cardiomyopathy Hcbll-Nbsxyduzb-Nyomw (WPW) syndrome Anomalous atrioventricular excitation Paroxysmal atrial fibrillation (HCC) Atrial fibrillation ICD (implantable cardioverter-defibrillator) in place Automatic implantable cardiac defibrillator in situ Acute on chronic diastolic (congestive) heart failure (HCC) QUINTON (obstructive sleep apnea) Obstructive sleep apnea (adult) (pediatric) Body mass index 40.0-44.9, adult (HCC) Body Mass Index 40.0-44.9, adult Pre-diabetes Other abnormal glucose Pre-op evaluation- Primary Preoperative examination, unspecified Vzsbh-Spikgujrj-Tdlxa (WPW) syndrome Anomalous atrioventricular excitation Paroxysmal atrial fibrillation (HCC) Atrial fibrillation HOCM (hypertrophic obstructive cardiomyopathy) (HCC) Hypertrophic obstructive cardiomyopathy ICD (implantable cardioverter-defibrillator) in place Automatic implantable cardiac defibrillator in situ Acute on chronic diastolic (congestive) heart failure (HCC) QUINTON (obstructive sleep apnea) Obstructive sleep apnea (adult) (pediatric) S/P gastric bypass Bariatric surgery status Pre-diabetes Other abnormal glucose Obesity, Class I, BMI 30-34.9 Obesity, unspecified Lumbar radiculopathy Thoracic or lumbosacral neuritis or radiculitis, unspecified [facility]* Diagnosis Class 3 obesity with alveolar hypoventilation, serious comorbidity, 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.9 in adult (HCC) Pre-op evaluation- Primary Preoperative examination, unspecified HOCM (hypertrophic obstructive cardiomyopathy) (HCC) Hypertrophic obstructive cardiomyopathy Chsbq-Exowpyqim-Ivaya (WPW) syndrome Anomalous atrioventricular excitation Paroxysmal atrial fibrillation (HCC) Atrial fibrillation ICD (implantable cardioverter-defibrillator) in place Automatic implantable cardiac defibrillator in situ Acute on chronic diastolic (congestive) heart failure (HCC) QUINTON (obstructive sleep apnea) Obstructive sleep apnea (adult) (pediatric) Body mass index 40.0-44.9, adult (HCC) Body Mass Index 40.0-44.9, adult Pre-diabetes Other abnormal glucose Pre-op evaluation- Primary Preoperative examination, unspecified Srxzx-Qluwkwxkp-Anulz (WPW) syndrome Anomalous atrioventricular excitation Paroxysmal atrial fibrillation (HCC) Atrial fibrillation HOCM (hypertrophic obstructive cardiomyopathy) (HCC) Hypertrophic obstructive cardiomyopathy ICD (implantable cardioverter-defibrillator) in place Automatic implantable cardiac defibrillator in situ Acute on chronic diastolic (congestive) heart failure (HCC) QUINTON (obstructive sleep apnea) Obstructive sleep apnea (adult) (pediatric) S/P gastric bypass Bariatric surgery status Pre-diabetes Other abnormal glucose Obesity, Class I, BMI 30-34.9 Obesity, unspecified [facility] Diagnosis Pre-op evaluation- Primary Preoperative examination, unspecified HOCM (hypertrophic obstructive cardiomyopathy) (HCC) Hypertrophic obstructive cardiomyopathy Xnkim-Lyhsuycte-Eswyp (WPW) syndrome Anomalous atrioventricular excitation Paroxysmal atrial fibrillation (HCC) Atrial fibrillation ICD (implantable cardioverter-defibrillator) in place Automatic implantable cardiac defibrillator in situ Acute on chronic diastolic (congestive) heart failure (HCC) QUINTON (obstructive sleep apnea) Obstructive sleep apnea (adult) (pediatric) Body mass index 40.0-44.9, adult (HCC) Body Mass Index 40.0-44.9, adult Pre-diabetes Other abnormal glucose Pre-op evaluation- Primary Preoperative examination, unspecified Ycclz-Mbwmszsvm-Uaqnl (WPW) syndrome Anomalous atrioventricular excitation Paroxysmal atrial fibrillation (HCC) Atrial fibrillation HOCM (hypertrophic obstructive cardiomyopathy) (HCC) Hypertrophic obstructive cardiomyopathy ICD (implantable cardioverter-defibrillator) in place Automatic implantable cardiac defibrillator in situ Acute on chronic diastolic (congestive) heart failure (HCC) QUINTON (obstructive sleep apnea) Obstructive sleep apnea (adult) (pediatric) S/P gastric bypass Bariatric surgery status Pre-diabetes Other abnormal glucose Obesity, Class I, BMI 30-34.9 Obesity, unspecified Atrial fibrillation, unspecified type (HCC)- Primary Paroxysmal atrial fibrillation (HCC) Atrial fibrillation halfway (current) use of anticoagulants Long-term (current) use of anticoagulants [facility] Sprain of left wrist, subsequent encounter Pre-op evaluation- Primary Preoperative examination, unspecified HOCM (hypertrophic obstructive cardiomyopathy) (HCC) Hypertrophic obstructive cardiomyopathy Arpjk-Tltizgsvm-Warwy (WPW) syndrome Anomalous atrioventricular excitation Paroxysmal atrial fibrillation (HCC) Atrial fibrillation ICD (implantable cardioverter-defibrillator) in place Automatic implantable cardiac defibrillator in situ Acute on chronic diastolic (congestive) heart failure (HCC) QUINTON (obstructive sleep apnea) Obstructive sleep apnea (adult) (pediatric) Body mass index 40.0-44.9, adult (HCC) Body Mass Index 40.0-44.9, adult Pre-diabetes Other abnormal glucose Pre-op evaluation- Primary Preoperative examination, unspecified Gzbza-Nytsbjixf-Enlzy (WPW) syndrome Anomalous atrioventricular excitation Paroxysmal atrial fibrillation (HCC) Atrial fibrillation HOCM (hypertrophic obstructive cardiomyopathy) (HCC) Hypertrophic obstructive cardiomyopathy ICD (implantable cardioverter-defibrillator) in place Automatic implantable cardiac defibrillator in situ Acute on chronic diastolic (congestive) heart failure (HCC) QUINTON (obstructive sleep apnea) Obstructive sleep apnea (adult) (pediatric) S/P gastric bypass Bariatric surgery status Pre-diabetes Other abnormal glucose Obesity, Class I, BMI 30-34.9 Obesity, unspecified [facility] Diagnosis Pre-op evaluation- Primary Preoperative examination, unspecified HOCM (hypertrophic obstructive cardiomyopathy) (HCC) Hypertrophic obstructive cardiomyopathy Xbojo-Isuvbambx-Kzjmk (WPW) syndrome Anomalous atrioventricular excitation Paroxysmal atrial fibrillation (HCC) Atrial fibrillation ICD (implantable cardioverter-defibrillator) in place Automatic implantable cardiac defibrillator in situ Acute on chronic diastolic (congestive) heart failure (HCC) QUINTON (obstructive sleep apnea) Obstructive sleep apnea (adult) (pediatric) Body mass index 40.0-44.9, adult (HCC) Body Mass Index 40.0-44.9, adult Pre-diabetes Other abnormal glucose Pre-op evaluation- Primary Preoperative examination, unspecified Enhtb-Meywsrcfu-Cgmfn (WPW) syndrome Anomalous atrioventricular excitation Paroxysmal atrial fibrillation (HCC) Atrial fibrillation HOCM (hypertrophic obstructive cardiomyopathy) (HCC) Hypertrophic obstructive cardiomyopathy ICD (implantable cardioverter-defibrillator) in place Automatic implantable cardiac defibrillator in situ Acute on chronic diastolic (congestive) heart failure (HCC) QUINTON (obstructive sleep apnea) Obstructive sleep apnea (adult) (pediatric) S/P gastric bypass Bariatric surgery status Pre-diabetes Other abnormal glucose Obesity, Class I, BMI 30-34.9 Obesity, unspecified HOCM (hypertrophic obstructive cardiomyopathy) (HCC)- Primary Hypertrophic obstructive cardiomyopathy Encounter for immunization Need for other specified prophylactic vaccination against single bacterial disease Paroxysmal atrial fibrillation (HCC) Atrial fibrillation Ventricular tachyarrhythmia (HCC) Paroxysmal ventricular tachycardia ICD (implantable cardioverter-defibrillator) in place Automatic implantable cardiac defibrillator in situ Mbsfd-Nuaxhjtwf-Ubpuh (WPW) syndrome Anomalous atrioventricular excitation S/P gastric bypass Bariatric surgery status Hair loss Alopecia, unspecified Screening for depression Encounter for screening examination for other mental health and behavioral disorders Screening for cervical cancer Screening for malignant neoplasm of the cervix [facility] Diagnosis Pre-op evaluation- Primary Preoperative examination, unspecified HOCM (hypertrophic obstructive cardiomyopathy) (HCC) Hypertrophic obstructive cardiomyopathy Skfnw-Cgpfccpsu-Jomhf (WPW) syndrome Anomalous atrioventricular excitation Paroxysmal atrial fibrillation (HCC) Atrial fibrillation ICD (implantable cardioverter-defibrillator) in place Automatic implantable cardiac defibrillator in situ Acute on chronic diastolic (congestive) heart failure (HCC) QUINTON (obstructive sleep apnea) Obstructive sleep apnea (adult) (pediatric) Body mass index 40.0-44.9, adult (HCC) Body Mass Index 40.0-44.9, adult Pre-diabetes Other abnormal glucose Pre-op evaluation- Primary Preoperative examination, unspecified Ieobb-Qhzvltmmb-Kiizv (WPW) syndrome Anomalous atrioventricular excitation Paroxysmal atrial fibrillation (HCC) Atrial fibrillation HOCM (hypertrophic obstructive cardiomyopathy) (HCC) Hypertrophic obstructive cardiomyopathy ICD (implantable cardioverter-defibrillator) in place Automatic implantable cardiac defibrillator in situ Acute on chronic diastolic (congestive) heart failure (HCC) QUINTON (obstructive sleep apnea) Obstructive sleep apnea (adult) (pediatric) S/P gastric bypass Bariatric surgery status Pre-diabetes Other abnormal glucose Obesity, Class I, BMI 30-34.9 Obesity, unspecified Atrial fibrillation, unspecified type (HCC)- Primary Paroxysmal atrial fibrillation (HCC) Atrial fibrillation halfway (current) use of anticoagulants Long-term (current) use of anticoagulants [facility] Pre-op evaluation- Primary Preoperative examination, unspecified HOCM (hypertrophic obstructive cardiomyopathy) (HCC) Hypertrophic obstructive cardiomyopathy Mavqi-Nbcimnnuc-Tisqu (WPW) syndrome Anomalous atrioventricular excitation Paroxysmal atrial fibrillation (HCC) Atrial fibrillation ICD (implantable cardioverter-defibrillator) in place Automatic implantable cardiac defibrillator in situ Acute on chronic diastolic (congestive) heart failure (HCC) QUINTON (obstructive sleep apnea) Obstructive sleep apnea (adult) (pediatric) Body mass index 40.0-44.9, adult (HCC) Body Mass Index 40.0-44.9, adult Pre-diabetes Other abnormal glucose Pre-op evaluation- Primary Preoperative examination, unspecified Dcwcb-Duuinzpqt-Zrffo (WPW) syndrome Anomalous atrioventricular excitation Paroxysmal atrial fibrillation (HCC) Atrial fibrillation HOCM (hypertrophic obstructive cardiomyopathy) (HCC) Hypertrophic obstructive cardiomyopathy ICD (implantable cardioverter-defibrillator) in place Automatic implantable cardiac defibrillator in situ Acute on chronic diastolic (congestive) heart failure (HCC) QUINTON (obstructive sleep apnea) Obstructive sleep apnea (adult) (pediatric) S/P gastric bypass Bariatric surgery status Pre-diabetes Other abnormal glucose Obesity, Class I, BMI 30-34.9 Obesity, unspecified Atrial fibrillation, unspecified type (HCC)- Primary Paroxysmal atrial fibrillation (HCC) Atrial fibrillation 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 anticoagulants Long-term (current) use of anticoagulants [facility] Diagnosis Pre-op evaluation- Primary Preoperative examination, unspecified HOCM (hypertrophic obstructive cardiomyopathy) (HCC) Hypertrophic obstructive cardiomyopathy Istjr-Uckvzrxlo-Dkfyc (WPW) syndrome Anomalous atrioventricular excitation Paroxysmal atrial fibrillation (HCC) Atrial fibrillation ICD (implantable cardioverter-defibrillator) in place Automatic implantable cardiac defibrillator in situ Acute on chronic diastolic (congestive) heart failure (HCC) QUINTON (obstructive sleep apnea) Obstructive sleep apnea (adult) (pediatric) Body mass index 40.0-44.9, adult (HCC) Body Mass Index 40.0-44.9, adult Pre-diabetes Other abnormal glucose Pre-op evaluation- Primary Preoperative examination, unspecified Rouam-Cmmyoqtqk-Duhfs (WPW) syndrome Anomalous atrioventricular excitation Paroxysmal atrial fibrillation (HCC) Atrial fibrillation HOCM (hypertrophic obstructive cardiomyopathy) (HCC) Hypertrophic obstructive cardiomyopathy ICD (implantable cardioverter-defibrillator) in place Automatic implantable cardiac defibrillator in situ Acute on chronic diastolic (congestive) heart failure (HCC) QUINTON (obstructive sleep apnea) Obstructive sleep apnea (adult) (pediatric) S/P gastric bypass Bariatric surgery status Pre-diabetes Other abnormal glucose Obesity, Class I, BMI 30-34.9 Obesity, unspecified 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 [facility] Diagnosis Pre-op evaluation- Primary Preoperative examination, unspecified HOCM (hypertrophic obstructive cardiomyopathy) (HCC) Hypertrophic obstructive cardiomyopathy Vsavx-Sghkgymgj-Foggp (WPW) syndrome Anomalous atrioventricular excitation Paroxysmal atrial fibrillation (HCC) Atrial fibrillation ICD (implantable cardioverter-defibrillator) in place Automatic implantable cardiac defibrillator in situ Acute on chronic diastolic (congestive) heart failure (HCC) QUINTON (obstructive sleep apnea) Obstructive sleep apnea (adult) (pediatric) Body mass index 40.0-44.9, adult (HCC) Body Mass Index 40.0-44.9, adult Pre-diabetes Other abnormal glucose Pre-op evaluation- Primary Preoperative examination, unspecified Lzocl-Mnqulmvxa-Zchqr (WPW) syndrome Anomalous atrioventricular excitation Paroxysmal atrial fibrillation (HCC) Atrial fibrillation HOCM (hypertrophic obstructive cardiomyopathy) (HCC) Hypertrophic obstructive cardiomyopathy ICD (implantable cardioverter-defibrillator) in place Automatic implantable cardiac defibrillator in situ Acute on chronic diastolic (congestive) heart failure (HCC) QUINTON (obstructive sleep apnea) Obstructive sleep apnea (adult) (pediatric) S/P gastric bypass Bariatric surgery status Pre-diabetes Other abnormal glucose Obesity, Class I, BMI 30-34.9 Obesity, unspecified Paroxysmal atrial fibrillation (HCC)- Primary Atrial fibrillation 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 anticoagulants Long-term (current) use of anticoagulants Atrial fibrillation, unspecified type (HCC) [facility] Diagnosis Pre-op evaluation- Primary Preoperative examination, unspecified HOCM (hypertrophic obstructive cardiomyopathy) (HCC) Hypertrophic obstructive cardiomyopathy Hxqaj-Hebtkseca-Aksce (WPW) syndrome Anomalous atrioventricular excitation Paroxysmal atrial fibrillation (HCC) Atrial fibrillation ICD (implantable cardioverter-defibrillator) in place Automatic implantable cardiac defibrillator in situ Acute on chronic diastolic (congestive) heart failure (HCC) QUINTON (obstructive sleep apnea) Obstructive sleep apnea (adult) (pediatric) Body mass index 40.0-44.9, adult (HCC) Body Mass Index 40.0-44.9, adult Pre-diabetes Other abnormal glucose Pre-op evaluation- Primary Preoperative examination, unspecified Exppf-Fhpayjgbr-Hjjin (WPW) syndrome Anomalous atrioventricular excitation Paroxysmal atrial fibrillation (HCC) Atrial fibrillation HOCM (hypertrophic obstructive cardiomyopathy) (HCC) Hypertrophic obstructive cardiomyopathy ICD (implantable cardioverter-defibrillator) in place Automatic implantable cardiac defibrillator in situ Acute on chronic diastolic (congestive) heart failure (HCC) QUINTON (obstructive sleep apnea) Obstructive sleep apnea (adult) (pediatric) S/P gastric bypass Bariatric surgery status Pre-diabetes Other abnormal glucose Obesity, Class I, BMI 30-34.9 Obesity, unspecified Encounter for IUD insertion- Primary Encounter for insertion of intrauterine contraceptive device Screening for cervical cancer Screening for malignant neoplasm of the cervix Encounter for gynecological examination (general) (routine) without abnormal findings Encounter for screening for human papillomavirus (HPV) Special screening examination for human papillomavirus (HPV) Encounter for screening mammogram for breast cancer Encounter for IUD removal Encounter for removal of intrauterine contraceptive device Decreased libido [facility] Diagnosis Pre-op evaluation- Primary Preoperative examination, unspecified HOCM (hypertrophic obstructive cardiomyopathy) (HCC) Hypertrophic obstructive cardiomyopathy Euhma-Tbasjqjhg-Oywsd (WPW) syndrome Anomalous atrioventricular excitation Paroxysmal atrial fibrillation (HCC) Atrial fibrillation ICD (implantable cardioverter-defibrillator) in place Automatic implantable cardiac defibrillator in situ Acute on chronic diastolic (congestive) heart failure (HCC) QUINTON (obstructive sleep apnea) Obstructive sleep apnea (adult) (pediatric) Body mass index 40.0-44.9, adult (HCC) Body Mass Index 40.0-44.9, adult Pre-diabetes Other abnormal glucose Pre-op evaluation- Primary Preoperative examination, unspecified Mqdtt-Uhtynbyug-Xlryj (WPW) syndrome Anomalous atrioventricular excitation Paroxysmal atrial fibrillation (HCC) Atrial fibrillation HOCM (hypertrophic obstructive cardiomyopathy) (HCC) Hypertrophic obstructive cardiomyopathy ICD (implantable cardioverter-defibrillator) in place Automatic implantable cardiac defibrillator in situ Acute on chronic diastolic (congestive) heart failure (HCC) QUINTON (obstructive sleep apnea) Obstructive sleep apnea (adult) (pediatric) S/P gastric bypass Bariatric surgery status Pre-diabetes Other abnormal glucose Obesity, Class I, BMI 30-34.9 Obesity, unspecified Pacemaker reprogramming/check Fitting and adjustment of cardiac pacemaker documented in this encounter [facility]* Diagnosis Pre-op evaluation- Primary Preoperative examination, unspecified HOCM (hypertrophic obstructive cardiomyopathy) (HCC) Hypertrophic obstructive cardiomyopathy 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 Paroxysmal atrial fibrillation (HCC) Atrial fibrillation ICD (implantable cardioverter-defibrillator) in place Automatic implantable cardiac defibrillator in situ Acute on chronic diastolic (congestive) heart failure (HCC) QUINTON (obstructive sleep apnea) Obstructive sleep apnea (adult) (pediatric) Body mass index 40.0-44.9, adult (HCC) Body Mass Index 40.0-44.9, adult Pre-diabetes Other abnormal glucose Pre-op evaluation- Primary Preoperative examination, unspecified Usoam-Gyausezdx-Puivq (WPW) syndrome Anomalous atrioventricular excitation Paroxysmal atrial fibrillation (HCC) Atrial fibrillation HOCM (hypertrophic obstructive cardiomyopathy) (HCC) Hypertrophic obstructive cardiomyopathy ICD (implantable cardioverter-defibrillator) in place Automatic implantable cardiac defibrillator in situ Acute on chronic diastolic (congestive) heart failure (HCC) QUINTON (obstructive sleep apnea) Obstructive sleep apnea (adult) (pediatric) S/P gastric bypass Bariatric surgery status Pre-diabetes Other abnormal glucose Obesity, Class I, BMI 30-34.9 Obesity, unspecified Atrial fibrillation, unspecified type (HCC)- Primary HOCM (hypertrophic obstructive cardiomyopathy) (HCC) Hypertrophic obstructive cardiomyopathy documented in this encounter [facility] note* Diagnosis Pre-op evaluation- Primary Preoperative examination, unspecified HOCM (hypertrophic obstructive cardiomyopathy) (HCC) Hypertrophic obstructive cardiomyopathy Hnede-Jckscgrzh-Egwuk (WPW) syndrome Anomalous atrioventricular excitation Paroxysmal atrial fibrillation (HCC) Atrial fibrillation ICD (implantable cardioverter-defibrillator) in place Automatic implantable cardiac defibrillator in situ Acute on chronic diastolic (congestive) heart failure (HCC) QUINTON (obstructive sleep apnea) Obstructive sleep apnea (adult) (pediatric) Body mass index 40.0-44.9, adult (HCC) Body Mass Index 40.0-44.9, adult Pre-diabetes Other abnormal glucose Pre-op evaluation- Primary Preoperative examination, unspecified Hgvja-Yappoithn-Fyorz (WPW) syndrome Anomalous atrioventricular excitation Paroxysmal atrial fibrillation (HCC) Atrial fibrillation HOCM (hypertrophic obstructive cardiomyopathy) (HCC) Hypertrophic obstructive cardiomyopathy ICD (implantable cardioverter-defibrillator) in place Automatic implantable cardiac defibrillator in situ Acute on chronic diastolic (congestive) heart failure (HCC) QUINTON (obstructive sleep apnea) Obstructive sleep apnea (adult) (pediatric) S/P gastric bypass Bariatric surgery status Pre-diabetes Other abnormal glucose Obesity, Class I, BMI 30-34.9 Obesity, unspecified Atrial fibrillation, unspecified type (HCC)- Primary Paroxysmal atrial fibrillation (HCC) Atrial fibrillation halfway (current) use of anticoagulants Long-term (current) use of anticoagulants [facility] Pre-op evaluation- Primary Preoperative examination, unspecified HOCM (hypertrophic obstructive cardiomyopathy) (HCC) Hypertrophic obstructive cardiomyopathy Arwmw-Xynopeijl-Qxtun (WPW) syndrome Anomalous atrioventricular excitation Paroxysmal atrial fibrillation (HCC) Atrial fibrillation ICD (implantable cardioverter-defibrillator) in place Automatic implantable cardiac defibrillator in situ Acute on chronic diastolic (congestive) heart failure (HCC) QUINTON (obstructive sleep apnea) Obstructive sleep apnea (adult) (pediatric) Body mass index 40.0-44.9, adult (HCC) Body Mass Index 40.0-44.9, adult Pre-diabetes Other abnormal glucose Pre-op evaluation- Primary Preoperative examination, unspecified Dwglo-Vqbdueqeg-Ozvwb (WPW) syndrome Anomalous atrioventricular excitation Paroxysmal atrial fibrillation (HCC) Atrial fibrillation HOCM (hypertrophic obstructive cardiomyopathy) (HCC) Hypertrophic obstructive cardiomyopathy ICD (implantable cardioverter-defibrillator) in place Automatic implantable cardiac defibrillator in situ Acute on chronic diastolic (congestive) heart failure (HCC) QUINTON (obstructive sleep apnea) Obstructive sleep apnea (adult) (pediatric) S/P gastric bypass Bariatric surgery status Pre-diabetes Other abnormal glucose Obesity, Class I, BMI 30-34.9 Obesity, unspecified Atrial fibrillation, unspecified type (HCC)- Primary Paroxysmal atrial fibrillation (HCC) Atrial fibrillation [facility] Diagnosis Pre-op evaluation- Primary Preoperative examination, unspecified HOCM (hypertrophic obstructive cardiomyopathy) (HCC) Hypertrophic obstructive cardiomyopathy Ihjoq-Mecqktcen-Icdkc (WPW) syndrome Anomalous atrioventricular excitation Paroxysmal atrial fibrillation (HCC) Atrial fibrillation ICD (implantable cardioverter-defibrillator) in place Automatic implantable cardiac defibrillator in situ Acute on chronic diastolic (congestive) heart failure (HCC) QUINTON (obstructive sleep apnea) Obstructive sleep apnea (adult) (pediatric) Body mass index 40.0-44.9, adult (HCC) Body Mass Index 40.0-44.9, adult Pre-diabetes Other abnormal glucose Pre-op evaluation- Primary Preoperative examination, unspecified Jpota-Sxbwcnzox-Fxfon (WPW) syndrome Anomalous atrioventricular excitation Paroxysmal atrial fibrillation (HCC) Atrial fibrillation HOCM (hypertrophic obstructive cardiomyopathy) (HCC) Hypertrophic obstructive cardiomyopathy ICD (implantable cardioverter-defibrillator) in place Automatic implantable cardiac defibrillator in situ Acute on chronic diastolic (congestive) heart failure (HCC) QUINTON (obstructive sleep apnea) Obstructive sleep apnea (adult) (pediatric) S/P gastric bypass Bariatric surgery status Pre-diabetes Other abnormal glucose Obesity, Class I, BMI 30-34.9 Obesity, unspecified Atrial fibrillation, unspecified type (HCC)- Primary Paroxysmal atrial fibrillation (HCC) Atrial fibrillation halfway (current) use of anticoagulants Long-term (current) use of anticoagulants [facility] Diagnosis Pre-op evaluation- Primary Preoperative examination, unspecified HOCM (hypertrophic obstructive cardiomyopathy) (HCC) Hypertrophic obstructive cardiomyopathy Eysec-Hyzgzpacl-Xeyta (WPW) syndrome Anomalous atrioventricular excitation Paroxysmal atrial fibrillation (HCC) Atrial fibrillation ICD (implantable cardioverter-defibrillator) in place Automatic implantable cardiac defibrillator in situ Acute on chronic diastolic (congestive) heart failure (HCC) QUINTON (obstructive sleep apnea) Obstructive sleep apnea (adult) (pediatric) Body mass index 40.0-44.9, adult (HCC) Body Mass Index 40.0-44.9, adult Pre-diabetes Other abnormal glucose Pre-op evaluation- Primary Preoperative examination, unspecified Qgssu-Qygzzukta-Tsjku (WPW) syndrome Anomalous atrioventricular excitation Paroxysmal atrial fibrillation (HCC) Atrial fibrillation HOCM (hypertrophic obstructive cardiomyopathy) (HCC) Hypertrophic obstructive cardiomyopathy ICD (implantable cardioverter-defibrillator) in place Automatic implantable cardiac defibrillator in situ Acute on chronic diastolic (congestive) heart failure (HCC) QUINTON (obstructive sleep apnea) Obstructive sleep apnea (adult) (pediatric) S/P gastric bypass Bariatric surgery status Pre-diabetes Other abnormal glucose Obesity, Class I, BMI 30-34.9 Obesity, unspecified Encounter for screening mammogram for breast cancer [facility] Diagnosis Pre-op evaluation- Primary Preoperative examination, unspecified HOCM (hypertrophic obstructive cardiomyopathy) (HCC) Hypertrophic obstructive cardiomyopathy Pgefg-Rwutlykey-Jflsr (WPW) syndrome Anomalous atrioventricular excitation Paroxysmal atrial fibrillation (HCC) Atrial fibrillation ICD (implantable cardioverter-defibrillator) in place Automatic implantable cardiac defibrillator in situ Acute on chronic diastolic (congestive) heart failure (HCC) QUINTON (obstructive sleep apnea) Obstructive sleep apnea (adult) (pediatric) Body mass index 40.0-44.9, adult (HCC) Body Mass Index 40.0-44.9, adult Pre-diabetes Other abnormal glucose Pre-op evaluation- Primary Preoperative examination, unspecified Zsgxq-Rxjxgayjr-Cjbsu (WPW) syndrome Anomalous atrioventricular excitation Paroxysmal atrial fibrillation (HCC) Atrial fibrillation HOCM (hypertrophic obstructive cardiomyopathy) (HCC) Hypertrophic obstructive cardiomyopathy ICD (implantable cardioverter-defibrillator) in place Automatic implantable cardiac defibrillator in situ Acute on chronic diastolic (congestive) heart failure (HCC) QUINTON (obstructive sleep apnea) Obstructive sleep apnea (adult) (pediatric) S/P gastric bypass Bariatric surgery status Pre-diabetes Other abnormal glucose Obesity, Class I, BMI 30-34.9 Obesity, unspecified Atrial fibrillation, unspecified type (HCC)- Primary Paroxysmal atrial fibrillation (HCC) Atrial fibrillation 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 anticoagulants Long-term (current) use of anticoagulants [facility] Diagnosis Pre-op evaluation- Primary Preoperative examination, unspecified HOCM (hypertrophic obstructive cardiomyopathy) (HCC) Hypertrophic obstructive cardiomyopathy Ubdcr-Zgwyjpqze-Somch (WPW) syndrome Anomalous atrioventricular excitation Paroxysmal atrial fibrillation (HCC) Atrial fibrillation ICD (implantable cardioverter-defibrillator) in place Automatic implantable cardiac defibrillator in situ Acute on chronic diastolic (congestive) heart failure (HCC) QUINTON (obstructive sleep apnea) Obstructive sleep apnea (adult) (pediatric) Body mass index 40.0-44.9, adult (HCC) Body Mass Index 40.0-44.9, adult Pre-diabetes Other abnormal glucose Pre-op evaluation- Primary Preoperative examination, unspecified Uzqpz-Jwmmqytjt-Qvgtl (WPW) syndrome Anomalous atrioventricular excitation Paroxysmal atrial fibrillation (HCC) Atrial fibrillation HOCM (hypertrophic obstructive cardiomyopathy) (HCC) Hypertrophic obstructive cardiomyopathy ICD (implantable cardioverter-defibrillator) in place Automatic implantable cardiac defibrillator in situ Acute on chronic diastolic (congestive) heart failure (HCC) QUINTON (obstructive sleep apnea) Obstructive sleep apnea (adult) (pediatric) S/P gastric bypass Bariatric surgery status Pre-diabetes Other abnormal glucose Obesity, Class I, BMI 30-34.9 Obesity, unspecified Atrial fibrillation, unspecified type (HCC)- Primary Paroxysmal atrial fibrillation (HCC) Atrial fibrillation halfway (current) use of anticoagulants Long-term (current) use of anticoagulants [facility] Diagnosis Pre-op evaluation- Primary Preoperative examination, unspecified HOCM (hypertrophic obstructive cardiomyopathy) (HCC) Hypertrophic obstructive cardiomyopathy Ngdjv-Jaqijimar-Flowk (WPW) syndrome Anomalous atrioventricular excitation Paroxysmal atrial fibrillation (HCC) Atrial fibrillation ICD (implantable cardioverter-defibrillator) in place Automatic implantable cardiac defibrillator in situ Acute on chronic diastolic (congestive) heart failure (HCC) QUINTON (obstructive sleep apnea) Obstructive sleep apnea (adult) (pediatric) Body mass index 40.0-44.9, adult (HCC) Body Mass Index 40.0-44.9, adult Pre-diabetes Other abnormal glucose Pre-op evaluation- Primary Preoperative examination, unspecified Lchex-Dsjxawemz-Yaepl (WPW) syndrome Anomalous atrioventricular excitation Paroxysmal atrial fibrillation (HCC) Atrial fibrillation HOCM (hypertrophic obstructive cardiomyopathy) (HCC) Hypertrophic obstructive cardiomyopathy ICD (implantable cardioverter-defibrillator) in place Automatic implantable cardiac defibrillator in situ Acute on chronic diastolic (congestive) heart failure (HCC) QUINTON (obstructive sleep apnea) Obstructive sleep apnea (adult) (pediatric) S/P gastric bypass Bariatric surgery status Pre-diabetes Other abnormal glucose Obesity, Class I, BMI 30-34.9 Obesity, unspecified Atrial fibrillation, unspecified type (HCC)- Primary Paroxysmal atrial fibrillation (HCC) Atrial fibrillation halfway (current) use of anticoagulants Long-term (current) use of anticoagulants [facility] Diagnosis Pre-op evaluation- Primary Preoperative examination, unspecified HOCM (hypertrophic obstructive cardiomyopathy) (HCC) Hypertrophic obstructive cardiomyopathy Rrzpj-Ivlregybh-Ioreo (WPW) syndrome Anomalous atrioventricular excitation Paroxysmal atrial fibrillation (HCC) Atrial fibrillation ICD (implantable cardioverter-defibrillator) in place Automatic implantable cardiac defibrillator in situ Acute on chronic diastolic (congestive) heart failure (HCC) QUINTON (obstructive sleep apnea) Obstructive sleep apnea (adult) (pediatric) Body mass index 40.0-44.9, adult (HCC) Body Mass Index 40.0-44.9, adult Pre-diabetes Other abnormal glucose Pre-op evaluation- Primary Preoperative examination, unspecified Xsihu-Jxahjefwm-Xgzgn (WPW) syndrome Anomalous atrioventricular excitation Paroxysmal atrial fibrillation (HCC) Atrial fibrillation HOCM (hypertrophic obstructive cardiomyopathy) (HCC) Hypertrophic obstructive cardiomyopathy ICD (implantable cardioverter-defibrillator) in place Automatic implantable cardiac defibrillator in situ Acute on chronic diastolic (congestive) heart failure (HCC) QUINTON (obstructive sleep apnea) Obstructive sleep apnea (adult) (pediatric) S/P gastric bypass Bariatric surgery status Pre-diabetes Other abnormal glucose Obesity, Class I, BMI 30-34.9 Obesity, unspecified Encounter for IUD removal and reinsertion- Primary Encounter for removal and reinsertion of intrauterine contraceptive device [facility] Diagnosis Pre-op evaluation- Primary Preoperative examination, unspecified HOCM (hypertrophic obstructive cardiomyopathy) (HCC) Hypertrophic obstructive cardiomyopathy Byvrq-Wgsqhdzxs-Woopf (WPW) syndrome Anomalous atrioventricular excitation Paroxysmal atrial fibrillation (HCC) Atrial fibrillation ICD (implantable cardioverter-defibrillator) in place Automatic implantable cardiac defibrillator in situ Acute on chronic diastolic (congestive) heart failure (HCC) QUINTON (obstructive sleep apnea) Obstructive sleep apnea (adult) (pediatric) Body mass index 40.0-44.9, adult (HCC) Body Mass Index 40.0-44.9, adult Pre-diabetes Other abnormal glucose Pre-op evaluation- Primary Preoperative examination, unspecified Ihmkd-Wuicrjthh-Qrkzn (WPW) syndrome Anomalous atrioventricular excitation Paroxysmal atrial fibrillation (HCC) Atrial fibrillation HOCM (hypertrophic obstructive cardiomyopathy) (HCC) Hypertrophic obstructive cardiomyopathy ICD (implantable cardioverter-defibrillator) in place Automatic implantable cardiac defibrillator in situ Acute on chronic diastolic (congestive) heart failure (HCC) QUINTON (obstructive sleep apnea) Obstructive sleep apnea (adult) (pediatric) S/P gastric bypass Bariatric surgery status Pre-diabetes Other abnormal glucose Obesity, Class I, BMI 30-34.9 Obesity, unspecified 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 Irregular astigmatism of both eyes Irregular astigmatism [facility] Pre-op evaluation- Primary Preoperative examination, unspecified HOCM (hypertrophic obstructive cardiomyopathy) (HCC) Hypertrophic obstructive cardiomyopathy Ckxry-Obhaciomr-Mussh (WPW) syndrome Anomalous atrioventricular excitation Paroxysmal atrial fibrillation (HCC) Atrial fibrillation ICD (implantable cardioverter-defibrillator) in place Automatic implantable cardiac defibrillator in situ Acute on chronic diastolic (congestive) heart failure (HCC) QUINTON (obstructive sleep apnea) Obstructive sleep apnea (adult) (pediatric) Body mass index 40.0-44.9, adult (HCC) Body Mass Index 40.0-44.9, adult Pre-diabetes Other abnormal glucose Pre-op evaluation- Primary Preoperative examination, unspecified Jpltz-Ipaklfxqv-Ijfio (WPW) syndrome Anomalous atrioventricular excitation Paroxysmal atrial fibrillation (HCC) Atrial fibrillation HOCM (hypertrophic obstructive cardiomyopathy) (HCC) Hypertrophic obstructive cardiomyopathy ICD (implantable cardioverter-defibrillator) in place Automatic implantable cardiac defibrillator in situ Acute on chronic diastolic (congestive) heart failure (HCC) QUINTON (obstructive sleep apnea) Obstructive sleep apnea (adult) (pediatric) S/P gastric bypass Bariatric surgery status Pre-diabetes Other abnormal glucose Obesity, Class I, BMI 30-34.9 Obesity, unspecified Paroxysmal atrial fibrillation (HCC)- Primary Atrial fibrillation Ventricular tachyarrhythmia (HCC) Paroxysmal ventricular tachycardia Dilated cardiomyopathy (HCC) Other primary cardiomyopathies 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 anticoagulants Long-term (current) use of anticoagulants Vitamin D deficiency, unspecified Rosacea [facility] Diagnosis Pre-op evaluation- Primary Preoperative examination, unspecified HOCM (hypertrophic obstructive cardiomyopathy) (HCC) Hypertrophic obstructive cardiomyopathy Zoyvl-Bxicowjdg-Xeenv (WPW) syndrome Anomalous atrioventricular excitation Paroxysmal atrial fibrillation (HCC) Atrial fibrillation ICD (implantable cardioverter-defibrillator) in place Automatic implantable cardiac defibrillator in situ Acute on chronic diastolic (congestive) heart failure (HCC) QUINTON (obstructive sleep apnea) Obstructive sleep apnea (adult) (pediatric) Body mass index 40.0-44.9, adult (HCC) Body Mass Index 40.0-44.9, adult Pre-diabetes Other abnormal glucose Pre-op evaluation- Primary Preoperative examination, unspecified Xryww-Rjyadohtm-Xsirb (WPW) syndrome Anomalous atrioventricular excitation Paroxysmal atrial fibrillation (HCC) Atrial fibrillation HOCM (hypertrophic obstructive cardiomyopathy) (HCC) Hypertrophic obstructive cardiomyopathy ICD (implantable cardioverter-defibrillator) in place Automatic implantable cardiac defibrillator in situ Acute on chronic diastolic (congestive) heart failure (HCC) QUINTON (obstructive sleep apnea) Obstructive sleep apnea (adult) (pediatric) S/P gastric bypass Bariatric surgery status Pre-diabetes Other abnormal glucose Obesity, Class I, BMI 30-34.9 Obesity, unspecified Atrial fibrillation, unspecified type (HCC)- Primary Paroxysmal atrial fibrillation (HCC) Atrial fibrillation 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 anticoagulants Long-term (current) use of anticoagulants [facility] Diagnosis Pre-op evaluation- Primary Preoperative examination, unspecified HOCM (hypertrophic obstructive cardiomyopathy) (HCC) Hypertrophic obstructive cardiomyopathy Rvfvh-Hjxyspxop-Zfdqy (WPW) syndrome Anomalous atrioventricular excitation Paroxysmal atrial fibrillation (HCC) Atrial fibrillation ICD (implantable cardioverter-defibrillator) in place Automatic implantable cardiac defibrillator in situ Acute on chronic diastolic (congestive) heart failure (HCC) QUINTON (obstructive sleep apnea) Obstructive sleep apnea (adult) (pediatric) Body mass index 40.0-44.9, adult (HCC) Body Mass Index 40.0-44.9, adult Pre-diabetes Other abnormal glucose Pre-op evaluation- Primary Preoperative examination, unspecified Doxrv-Wmccwuxuz-Ejpaz (WPW) syndrome Anomalous atrioventricular excitation Paroxysmal atrial fibrillation (HCC) Atrial fibrillation HOCM (hypertrophic obstructive cardiomyopathy) (HCC) Hypertrophic obstructive cardiomyopathy ICD (implantable cardioverter-defibrillator) in place Automatic implantable cardiac defibrillator in situ Acute on chronic diastolic (congestive) heart failure (HCC) QUINTON (obstructive sleep apnea) Obstructive sleep apnea (adult) (pediatric) S/P gastric bypass Bariatric surgery status Pre-diabetes Other abnormal glucose Obesity, Class I, BMI 30-34.9 Obesity, unspecified Surveillance of previously prescribed intrauterine contraceptive device- Primary [facility] Diagnosis Pre-op evaluation- Primary Preoperative examination, unspecified HOCM (hypertrophic obstructive cardiomyopathy) (HCC) Hypertrophic obstructive cardiomyopathy Xdsyt-Dbnkvyksm-Vsevh (WPW) syndrome Anomalous atrioventricular excitation Paroxysmal atrial fibrillation (HCC) Atrial fibrillation ICD (implantable cardioverter-defibrillator) in place Automatic implantable cardiac defibrillator in situ Acute on chronic diastolic (congestive) heart failure (HCC) QUINTON (obstructive sleep apnea) Obstructive sleep apnea (adult) (pediatric) Body mass index 40.0-44.9, adult (HCC) Body Mass Index 40.0-44.9, adult Pre-diabetes Other abnormal glucose Pre-op evaluation- Primary Preoperative examination, unspecified Lltnh-Jcxzobfkp-Shxah (WPW) syndrome Anomalous atrioventricular excitation Paroxysmal atrial fibrillation (HCC) Atrial fibrillation HOCM (hypertrophic obstructive cardiomyopathy) (HCC) Hypertrophic obstructive cardiomyopathy ICD (implantable cardioverter-defibrillator) in place Automatic implantable cardiac defibrillator in situ Acute on chronic diastolic (congestive) heart failure (HCC) QUINTON (obstructive sleep apnea) Obstructive sleep apnea (adult) (pediatric) S/P gastric bypass Bariatric surgery status Pre-diabetes Other abnormal glucose Obesity, Class I, BMI 30-34.9 Obesity, unspecified Atrial fibrillation, unspecified type (HCC)- Primary Paroxysmal atrial fibrillation (HCC) Atrial fibrillation 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 anticoagulants Long-term (current) use of anticoagulants [facility] Diagnosis Pre-op evaluation- Primary Preoperative examination, unspecified HOCM (hypertrophic obstructive cardiomyopathy) (HCC) Hypertrophic obstructive cardiomyopathy Kuyju-Jmbjiijac-Ktfce (WPW) syndrome Anomalous atrioventricular excitation Paroxysmal atrial fibrillation (HCC) Atrial fibrillation ICD (implantable cardioverter-defibrillator) in place Automatic implantable cardiac defibrillator in situ Acute on chronic diastolic (congestive) heart failure (HCC) QUINTON (obstructive sleep apnea) Obstructive sleep apnea (adult) (pediatric) Body mass index 40.0-44.9, adult (HCC) Body Mass Index 40.0-44.9, adult Pre-diabetes Other abnormal glucose Pre-op evaluation- Primary Preoperative examination, unspecified Iqxpe-Txpdzktic-Gqkrv (WPW) syndrome Anomalous atrioventricular excitation Paroxysmal atrial fibrillation (HCC) Atrial fibrillation HOCM (hypertrophic obstructive cardiomyopathy) (HCC) Hypertrophic obstructive cardiomyopathy ICD (implantable cardioverter-defibrillator) in place Automatic implantable cardiac defibrillator in situ Acute on chronic diastolic (congestive) heart failure (HCC) QUINTON (obstructive sleep apnea) Obstructive sleep apnea (adult) (pediatric) S/P gastric bypass Bariatric surgery status Pre-diabetes Other abnormal glucose Obesity, Class I, BMI 30-34.9 Obesity, unspecified Pre-operative examination- Primary Preoperative examination, unspecified ICD (implantable cardioverter-defibrillator) in place Automatic implantable cardiac defibrillator in situ Paroxysmal atrial fibrillation (HCC) Atrial fibrillation Faulw-Vnhfrpypd-Ybwmm (WPW) syndrome Anomalous atrioventricular excitation HOCM (hypertrophic obstructive cardiomyopathy) (HCC) Hypertrophic obstructive cardiomyopathy Acute on chronic diastolic (congestive) heart failure (HCC) QUINTON (obstructive sleep apnea) Obstructive sleep apnea (adult) (pediatric) S/P gastric bypass Bariatric surgery status Pre-diabetes Other abnormal glucose ICD (implantable cardioverter-defibrillator) in place- Primary Automatic implantable cardiac defibrillator in situ [facility] Diagnosis Pre-op evaluation- Primary Preoperative examination, unspecified HOCM (hypertrophic obstructive cardiomyopathy) (HCC) Hypertrophic obstructive cardiomyopathy Mhvyh-Jyflocbpd-Yejko (WPW) syndrome Anomalous atrioventricular excitation Paroxysmal atrial fibrillation (HCC) Atrial fibrillation ICD (implantable cardioverter-defibrillator) in place Automatic implantable cardiac defibrillator in situ Acute on chronic diastolic (congestive) heart failure (HCC) QUINTON (obstructive sleep apnea) Obstructive sleep apnea (adult) (pediatric) Body mass index 40.0-44.9, adult (HCC) Body Mass Index 40.0-44.9, adult Pre-diabetes Other abnormal glucose Pre-op evaluation- Primary Preoperative examination, unspecified 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 Paroxysmal atrial fibrillation (HCC) Atrial fibrillation HOCM (hypertrophic obstructive cardiomyopathy) (HCC) Hypertrophic obstructive cardiomyopathy ICD (implantable cardioverter-defibrillator) in place Automatic implantable cardiac defibrillator in situ Acute on chronic diastolic (congestive) heart failure (HCC) QUINTON (obstructive sleep apnea) Obstructive sleep apnea (adult) (pediatric) S/P gastric bypass Bariatric surgery status Pre-diabetes Other abnormal glucose Obesity, Class I, BMI 30-34.9 Obesity, unspecified Pre-operative examination- Primary Preoperative examination, unspecified ICD (implantable cardioverter-defibrillator) in place Automatic implantable cardiac defibrillator in situ Paroxysmal atrial fibrillation (HCC) Atrial fibrillation Mdafn-Hbamfotkj-Uqiht (WPW) syndrome Anomalous atrioventricular excitation HOCM (hypertrophic obstructive cardiomyopathy) (HCC) Hypertrophic obstructive cardiomyopathy Acute on chronic diastolic (congestive) heart failure (HCC) QUINTON (obstructive sleep apnea) Obstructive sleep apnea (adult) (pediatric) S/P gastric bypass Bariatric surgery status Pre-diabetes Other abnormal glucose Atrial fibrillation, unspecified type (HCC)- Primary Paroxysmal atrial fibrillation (HCC) Atrial fibrillation halfway (current) use of anticoagulants Long-term (current) use of anticoagulants [facility] Diagnosis Pre-op evaluation- Primary Preoperative examination, unspecified HOCM (hypertrophic obstructive cardiomyopathy) (HCC) Hypertrophic obstructive cardiomyopathy Ufnen-Vvyiulydg-Boiya (WPW) syndrome Anomalous atrioventricular excitation Paroxysmal atrial fibrillation (HCC) Atrial fibrillation ICD (implantable cardioverter-defibrillator) in place Automatic implantable cardiac defibrillator in situ Acute on chronic diastolic (congestive) heart failure (HCC) QUINTON (obstructive sleep apnea) Obstructive sleep apnea (adult) (pediatric) Body mass index 40.0-44.9, adult (HCC) Body Mass Index 40.0-44.9, adult Pre-diabetes Other abnormal glucose Pre-op evaluation- Primary Preoperative examination, unspecified Sngfq-Tzrmibhet-Lpevh (WPW) syndrome Anomalous atrioventricular excitation Paroxysmal atrial fibrillation (HCC) Atrial fibrillation HOCM (hypertrophic obstructive cardiomyopathy) (HCC) Hypertrophic obstructive cardiomyopathy ICD (implantable cardioverter-defibrillator) in place Automatic implantable cardiac defibrillator in situ Acute on chronic diastolic (congestive) heart failure (HCC) QUINTON (obstructive sleep apnea) Obstructive sleep apnea (adult) (pediatric) S/P gastric bypass Bariatric surgery status Pre-diabetes Other abnormal glucose Obesity, Class I, BMI 30-34.9 Obesity, unspecified Pre-operative examination- Primary Preoperative examination, unspecified ICD (implantable cardioverter-defibrillator) in place Automatic implantable cardiac defibrillator in situ Paroxysmal atrial fibrillation (HCC) Atrial fibrillation Wlifr-Esyheuvqf-Fweqm (WPW) syndrome Anomalous atrioventricular excitation HOCM (hypertrophic obstructive cardiomyopathy) (HCC) Hypertrophic obstructive cardiomyopathy Acute on chronic diastolic (congestive) heart failure (HCC) QUINTON (obstructive sleep apnea) Obstructive sleep apnea (adult) (pediatric) S/P gastric bypass Bariatric surgery status Pre-diabetes Other abnormal glucose History of ulceration- Primary Personal history of other specified diseases Marginal ulcer Gastrojejunal ulcer, unspecified as acute or chronic, without mention of hemorrhage, perforation, or obstruction S/P gastric bypass Bariatric surgery status [facility]* Diagnosis Pre-op evaluation- Primary Preoperative examination, unspecified HOCM (hypertrophic obstructive cardiomyopathy) (HCC) Hypertrophic obstructive cardiomyopathy Xxswj-Mtcwesqbq-Xgoem (WPW) syndrome Anomalous atrioventricular excitation Paroxysmal atrial fibrillation (HCC) Atrial fibrillation ICD (implantable cardioverter-defibrillator) in place Automatic implantable cardiac defibrillator in situ Acute on chronic diastolic (congestive) heart failure (HCC) QUINTON (obstructive sleep apnea) Obstructive sleep apnea (adult) (pediatric) Body mass index 40.0-44.9, adult (HCC) Body Mass Index 40.0-44.9, adult Pre-diabetes Other abnormal glucose Pre-op evaluation- Primary Preoperative examination, unspecified Ioluc-Mlyapehgy-Bdtki (WPW) syndrome Anomalous atrioventricular excitation Paroxysmal atrial fibrillation (HCC) Atrial fibrillation HOCM (hypertrophic obstructive cardiomyopathy) (HCC) Hypertrophic obstructive cardiomyopathy ICD (implantable cardioverter-defibrillator) in place Automatic implantable cardiac defibrillator in situ Acute on chronic diastolic (congestive) heart failure (HCC) QUINTON (obstructive sleep apnea) Obstructive sleep apnea (adult) (pediatric) S/P gastric bypass Bariatric surgery status Pre-diabetes Other abnormal glucose Obesity, Class I, BMI 30-34.9 Obesity, unspecified Pre-operative examination- Primary Preoperative examination, unspecified ICD (implantable cardioverter-defibrillator) in place Automatic implantable cardiac defibrillator in situ Paroxysmal atrial fibrillation (HCC) Atrial fibrillation Bixjr-Tjpplynqg-Toyly (WPW) syndrome Anomalous atrioventricular excitation HOCM (hypertrophic obstructive cardiomyopathy) (HCC) Hypertrophic obstructive cardiomyopathy Acute on chronic diastolic (congestive) heart failure (HCC) QUINTON (obstructive sleep apnea) Obstructive sleep apnea (adult) (pediatric) S/P gastric bypass Bariatric surgery status Pre-diabetes Other abnormal glucose Atrial fibrillation, persistent (HCC)- Primary Atrial fibrillation [facility] Diagnosis Pre-op evaluation- Primary Preoperative examination, unspecified HOCM (hypertrophic obstructive cardiomyopathy) (HCC) Hypertrophic obstructive cardiomyopathy Zfqmw-Yadmrphzw-Gudvk (WPW) syndrome Anomalous atrioventricular excitation Paroxysmal atrial fibrillation (HCC) Atrial fibrillation ICD (implantable cardioverter-defibrillator) in place Automatic implantable cardiac defibrillator in situ Acute on chronic diastolic (congestive) heart failure (HCC) QUINTON (obstructive sleep apnea) Obstructive sleep apnea (adult) (pediatric) Body mass index 40.0-44.9, adult (HCC) Body Mass Index 40.0-44.9, adult Pre-diabetes Other abnormal glucose Pre-op evaluation- Primary Preoperative examination, unspecified Sugsz-Bjyndlhit-Uqyxn (WPW) syndrome Anomalous atrioventricular excitation Paroxysmal atrial fibrillation (HCC) Atrial fibrillation HOCM (hypertrophic obstructive cardiomyopathy) (HCC) Hypertrophic obstructive cardiomyopathy ICD (implantable cardioverter-defibrillator) in place Automatic implantable cardiac defibrillator in situ Acute on chronic diastolic (congestive) heart failure (HCC) QUINTON (obstructive sleep apnea) Obstructive sleep apnea (adult) (pediatric) S/P gastric bypass Bariatric surgery status Pre-diabetes Other abnormal glucose Obesity, Class I, BMI 30-34.9 Obesity, unspecified Pre-operative examination- Primary Preoperative examination, unspecified ICD (implantable cardioverter-defibrillator) in place Automatic implantable cardiac defibrillator in situ Paroxysmal atrial fibrillation (HCC) Atrial fibrillation Kykwe-Dzjpcoykp-Lyxdo (WPW) syndrome Anomalous atrioventricular excitation HOCM (hypertrophic obstructive cardiomyopathy) (HCC) Hypertrophic obstructive cardiomyopathy Acute on chronic diastolic (congestive) heart failure (HCC) QUINTON (obstructive sleep apnea) Obstructive sleep apnea (adult) (pediatric) S/P gastric bypass Bariatric surgery status Pre-diabetes Other abnormal glucose Atrial fibrillation, unspecified type (HCC)- Primary Paroxysmal atrial fibrillation (HCC) Atrial fibrillation 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 anticoagulants Long-term (current) use of anticoagulants [facility] Pre-op evaluation- Primary Preoperative examination, unspecified HOCM (hypertrophic obstructive cardiomyopathy) (HCC) Hypertrophic obstructive cardiomyopathy Fpymc-Oemdisnty-Dfisi (WPW) syndrome Anomalous atrioventricular excitation Paroxysmal atrial fibrillation (HCC) Atrial fibrillation ICD (implantable cardioverter-defibrillator) in place Automatic implantable cardiac defibrillator in situ Acute on chronic diastolic (congestive) heart failure (HCC) QUINTON (obstructive sleep apnea) Obstructive sleep apnea (adult) (pediatric) Body mass index 40.0-44.9, adult (HCC) Body Mass Index 40.0-44.9, adult Pre-diabetes Other abnormal glucose Pre-op evaluation- Primary Preoperative examination, unspecified Njflk-Mcgwjdlfb-Dxwbe (WPW) syndrome Anomalous atrioventricular excitation Paroxysmal atrial fibrillation (HCC) Atrial fibrillation HOCM (hypertrophic obstructive cardiomyopathy) (HCC) Hypertrophic obstructive cardiomyopathy ICD (implantable cardioverter-defibrillator) in place Automatic implantable cardiac defibrillator in situ Acute on chronic diastolic (congestive) heart failure (HCC) QUINTON (obstructive sleep apnea) Obstructive sleep apnea (adult) (pediatric) S/P gastric bypass Bariatric surgery status Pre-diabetes Other abnormal glucose Obesity, Class I, BMI 30-34.9 Obesity, unspecified Pre-operative examination- Primary Preoperative examination, unspecified ICD (implantable cardioverter-defibrillator) in place Automatic implantable cardiac defibrillator in situ Paroxysmal atrial fibrillation (HCC) Atrial fibrillation Ecfww-Hkzgwmrbs-Zszte (WPW) syndrome Anomalous atrioventricular excitation HOCM (hypertrophic obstructive cardiomyopathy) (HCC) Hypertrophic obstructive cardiomyopathy Acute on chronic diastolic (congestive) heart failure (HCC) QUINTON (obstructive sleep apnea) Obstructive sleep apnea (adult) (pediatric) S/P gastric bypass Bariatric surgery status Pre-diabetes Other abnormal glucose Atrial fibrillation, persistent (HCC) Atrial fibrillation [facility] Pre-op evaluation- Primary Preoperative examination, unspecified HOCM (hypertrophic obstructive cardiomyopathy) (HCC) Hypertrophic obstructive cardiomyopathy Ouyba-Svzfrghst-Tttgk (WPW) syndrome Anomalous atrioventricular excitation Paroxysmal atrial fibrillation (HCC) Atrial fibrillation ICD (implantable cardioverter-defibrillator) in place Automatic implantable cardiac defibrillator in situ Acute on chronic diastolic (congestive) heart failure (HCC) QUINTON (obstructive sleep apnea) Obstructive sleep apnea (adult) (pediatric) Body mass index 40.0-44.9, adult (HCC) Body Mass Index 40.0-44.9, adult Pre-diabetes Other abnormal glucose Pre-op evaluation- Primary Preoperative examination, unspecified Acvvp-Wfuaoqfsk-Qweac (WPW) syndrome Anomalous atrioventricular excitation Paroxysmal atrial fibrillation (HCC) Atrial fibrillation HOCM (hypertrophic obstructive cardiomyopathy) (HCC) Hypertrophic obstructive cardiomyopathy ICD (implantable cardioverter-defibrillator) in place Automatic implantable cardiac defibrillator in situ Acute on chronic diastolic (congestive) heart failure (HCC) QUINTON (obstructive sleep apnea) Obstructive sleep apnea (adult) (pediatric) S/P gastric bypass Bariatric surgery status Pre-diabetes Other abnormal glucose Obesity, Class I, BMI 30-34.9 Obesity, unspecified Pre-operative examination- Primary Preoperative examination, unspecified ICD (implantable cardioverter-defibrillator) in place Automatic implantable cardiac defibrillator in situ Paroxysmal atrial fibrillation (HCC) Atrial fibrillation Gsfbj-Fyminwvdq-Dboox (WPW) syndrome Anomalous atrioventricular excitation HOCM (hypertrophic obstructive cardiomyopathy) (HCC) Hypertrophic obstructive cardiomyopathy Acute on chronic diastolic (congestive) heart failure (HCC) QUINTON (obstructive sleep apnea) Obstructive sleep apnea (adult) (pediatric) S/P gastric bypass Bariatric surgery status Pre-diabetes Other abnormal glucose Atrial fibrillation, unspecified type (HCC)- Primary Paroxysmal atrial fibrillation (HCC) Atrial fibrillation 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 anticoagulants Long-term (current) use of anticoagulants [facility]- Primary Preoperative examination, unspecified HOCM (hypertrophic obstructive cardiomyopathy) (HCC) Hypertrophic obstructive cardiomyopathy Mehfa-Pfijcqulk-Wptem (WPW) syndrome Anomalous atrioventricular excitation Paroxysmal atrial fibrillation (HCC) Atrial fibrillation ICD (implantable cardioverter-defibrillator) in place Automatic implantable cardiac defibrillator in situ Acute on chronic diastolic (congestive) heart failure (HCC) QUINTON (obstructive sleep apnea) Obstructive sleep apnea (adult) (pediatric) Body mass index 40.0-44.9, adult (HCC) Body Mass Index 40.0-44.9, adult Pre-diabetes Other abnormal glucose Pre-op evaluation- Primary Preoperative examination, unspecified Xeqdr-Amwhnjqsp-Ivuwi (WPW) syndrome Anomalous atrioventricular excitation Paroxysmal atrial fibrillation (HCC) Atrial fibrillation HOCM (hypertrophic obstructive cardiomyopathy) (HCC) Hypertrophic obstructive cardiomyopathy ICD (implantable cardioverter-defibrillator) in place Automatic implantable cardiac defibrillator in situ Acute on chronic diastolic (congestive) heart failure (HCC) QUINTON (obstructive sleep apnea) Obstructive sleep apnea (adult) (pediatric) S/P gastric bypass Bariatric surgery status Pre-diabetes Other abnormal glucose Obesity, Class I, BMI 30-34.9 Obesity, unspecified Pre-operative examination- Primary Preoperative examination, unspecified ICD (implantable cardioverter-defibrillator) in place Automatic implantable cardiac defibrillator in situ Paroxysmal atrial fibrillation (HCC) Atrial fibrillation Mdgav-Jlqicdqaw-Cvqsz (WPW) syndrome Anomalous atrioventricular excitation HOCM (hypertrophic obstructive cardiomyopathy) (HCC) Hypertrophic obstructive cardiomyopathy Acute on chronic diastolic (congestive) heart failure (HCC) QUINTON (obstructive sleep apnea) Obstructive sleep apnea (adult) (pediatric) S/P gastric bypass Bariatric surgery status Pre-diabetes Other abnormal glucose Paroxysmal atrial fibrillation (HCC) Atrial fibrillation Acute on chronic diastolic (congestive) heart failure (HCC) Dilated cardiomyopathy (HCC) Other primary cardiomyopathies HOCM (hypertrophic obstructive cardiomyopathy) (HCC) Hypertrophic obstructive cardiomyopathy Mbjzl-Aorilhfvt-Jxpbn (WPW) syndrome Anomalous atrioventricular excitation [facility] Pre-op evaluation- Primary Preoperative examination, unspecified HOCM (hypertrophic obstructive cardiomyopathy) (HCC) Hypertrophic obstructive cardiomyopathy Rsdyj-Looqtxmmh-Ejlsy (WPW) syndrome Anomalous atrioventricular excitation Paroxysmal atrial fibrillation (HCC) Atrial fibrillation ICD (implantable cardioverter-defibrillator) in place Automatic implantable cardiac defibrillator in situ Acute on chronic diastolic (congestive) heart failure (HCC) QUINTON (obstructive sleep apnea) Obstructive sleep apnea (adult) (pediatric) Body mass index 40.0-44.9, adult (HCC) Body Mass Index 40.0-44.9, adult Pre-diabetes Other abnormal glucose Pre-op evaluation- Primary Preoperative examination, unspecified Otqil-Zgaeptfam-Uyfyi (WPW) syndrome Anomalous atrioventricular excitation Paroxysmal atrial fibrillation (HCC) Atrial fibrillation HOCM (hypertrophic obstructive cardiomyopathy) (HCC) Hypertrophic obstructive cardiomyopathy ICD (implantable cardioverter-defibrillator) in place Automatic implantable cardiac defibrillator in situ Acute on chronic diastolic (congestive) heart failure (HCC) QUINTON (obstructive sleep apnea) Obstructive sleep apnea (adult) (pediatric) S/P gastric bypass Bariatric surgery status Pre-diabetes Other abnormal glucose Obesity, Class I, BMI 30-34.9 Obesity, unspecified Pre-operative examination- Primary Preoperative examination, unspecified ICD (implantable cardioverter-defibrillator) in place Automatic implantable cardiac defibrillator in situ Paroxysmal atrial fibrillation (HCC) Atrial fibrillation Rhnhs-Eckuguuzo-Obvam (WPW) syndrome Anomalous atrioventricular excitation HOCM (hypertrophic obstructive cardiomyopathy) (HCC) Hypertrophic obstructive cardiomyopathy Acute on chronic diastolic (congestive) heart failure (HCC) QUINTON (obstructive sleep apnea) Obstructive sleep apnea (adult) (pediatric) S/P gastric bypass Bariatric surgery status Pre-diabetes Other abnormal glucose Atrial fibrillation, unspecified type (HCC)- Primary Paroxysmal atrial fibrillation (HCC) Atrial fibrillation halfway (current) use of anticoagulants Long-term (current) use of anticoagulants documented in this [facility] Additional Instructions Continue your normal medications specifically her cardiac medications. Continue your Eliquis. Follow-up with your primary care provider and/or your cargo checker if not improving. Return if worse.[facility] Work Phone: Hospital Discharge instructions Additional Instructions Follow-up with your cargo checker as needed. Please continue current cardiac medications. Increase p.o. fluids to maintain hydration.[facility] Work Phone: Hospital Discharge instructions Additional Instructions Atrial fibrillation back to normal sinus rhythm. Continue home medications. [facility] with [facility] cargo [facility]. Return if any worsening symptoms.[facility] Work Phone: Hospital Discharge instructions Additional Instructions Plenty of fluids and rest. Do not take your blood pressure medication the metoprolol if your blood pressure is not running higher than 110. Follow-up with your doctor to ensure you are improving. Return if you are feeling worse.[facility] Work Phone: Hospital Discharge instructions Additional Instructions You have multiple large stones in your gallbladder, you are having biliary colic. You need to follow-up with a surgeon outpatient to have this taken care of. Please return for worsening uncontrolled abdominal pain, fever chills nausea [facility]WW[facility] Work Phone: Hospital Discharge instructions Additional Instructions Please go back on your previous metoprolol dose as this seemed to prevent you from going into A-fib with RVR and was recommended by your cargo checker. You may take that normal dose this morning when you return home. If you have worsening symptoms or any further concerns please return for repeat [facility]WW[facility]andot [facility] Work Phone: Reason for referral (narrative)* Outpatient Procedure (Routine) - Pending Review Specialty Diagnoses / Procedures Referred By Contac t Referred To Contact [facility] Diagnoses Ventricular tachyarrhythmia (HCC) Paroxysmal atrial fibrillation (HCC) Procedures ECG COMPLETE ECG ROUTINE ECG W/LEAST 12 LDS W/I&R Card Eps Main [address] [place] [address] [facility] [address] [address] Referral ID Status Reason Start Date Expiration Date Visits Requested Visits Authorized [id number] Pending Review Auto-Generat ed Referral 01/13/2022 01/13/2023 1 1 [facility] for referral (narrative)* Outpatient Procedure (Routine) - Pending Review Specialty Diagnoses / Procedures Referred By Contac t Referred To Contact [facility] [place] Diagnoses HOCM (hypertrophic obstructive cardiomyopathy) (HCC) Procedures ECHO ECHO TTHRC R-T 2D W/WOM-MODE COMPL SPEC&COLR D Jayjay Ortiz MD [address] [place] [address] [facility] [address] [address] Referral ID Status Reason Start Date Expiration Date Visits Requested Visits Authorized [id number] Pending Review Auto-Generat ed Referral 2 07/17/2023 1 1 * Outpatient Procedure (Routine) - Pending Review Specialty Diagnoses / Procedures Referred By Contac t Referred To Contact [facility] Diagnoses HOCM (hypertrophic obstructive cardiomyopathy) (HCC) Procedures ECG COMPLETE ECG ROUTINE ECG W/LEAST 12 LDS W/I&R Jayjay Ortiz MD [address] [place] [address] [facility] [address] [address] Referral ID Status Reason Start Date Expiration Date Visits Requested Visits Authorized [id number] Pending Review Auto-Generat ed Referral 2 07/17/2023 1 1 [facility] for referral (narrative)* Outpatient Procedure (Routine) - Pending Review Specialty Diagnoses / Procedures Referred By Contac t Referred To Contact [facility] [place] Diagnoses HOCM (hypertrophic obstructive cardiomyopathy) (HCC) Procedures ECG COMPLETE ECG ROUTINE ECG W/LEAST 12 LDS W/I&R Jayjay Ortiz MD [address] [place] [address] [address] Referral ID Status Reason Start Date Expiration Date Visits Requested Visits Authorized [id number] Pending Review Auto-Generat ed Referral 10/22/2022 10/22/2023 1 1 [facility] for referral (narrative)* Diagnostic Procedure Only (Routine) - Closed Specialty Diagnoses / Procedures Referred By Contac t Referred To Contact [facility] Diagnoses Encounter for screening mammogram for breast cancer Procedures WERO SCREENING SCREENING MAMMOGRAPHY BI 2-VIEW BREAST INC CAD Kylah Palma PA-C [address] [place] [address] [facility] [address] [place] [address] Referral ID Status Reason Start Date Expiration Date V isits Requested Visits Authorized [id number] Closed Auto-Generate d Referral 11/27/2021 12/27/2022 1 1 [facility] for referral (narrative)* Diagnostic Procedure Only (Routine) - Closed Specialty Diagnoses / Procedures Referred By Contac t Referred To Contact [facility] Diagnoses Class 3 obesity with alveolar hypoventilation, serious comorbidity, 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.9 in adult (HCC) Procedures US ABD RT UPPER QUADRANT US ABDOMINAL REAL TIME W/IMAGE LIMITED Siobhan Sellers APRN.REGISTERED DIET TECHNICIAN [address] [place] [address] [place] [address] Referral ID Status Reason Start Date Expiration Date V isits Requested Visits Authorized [id number] Closed Auto-Generate d Referral 09/18/2022 10/18/2023 1 1 Electronically signed by Siobhan Sellers 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.REGISTERED DIET TECHNICIAN at 09/24/2022 12:36 PM [facility] for referral (narrative)* Diagnostic Procedure Only (Routine) - Closed Specialty Diagnoses / Procedures Referred By Contac t Referred To Contact [facility] Diagnoses Liver nodule Procedures US ABD RT UPPER QUADRANT US ABDOMINAL REAL TIME W/IMAGE LIMITED Meredith Avila PA-C [facility] [place] [address] [place] [address] Referral ID Status Reason Start Date Expiration Date V isits Requested Visits Authorized [id number] Closed Auto-Generate d Referral 12/10/2022 01/02/2024 1 1 [facility] for referral (narrative)* Diagnostic Procedure Only (Urgent) - Closed Specialty Diagnoses / Procedures Referred By Contac t Referred To Contact XR [facility] Diagnoses Lumbar radiculopathy Procedures XR HIP GENERAL 3V PELV/AP/LAT LEFT RADEX HIP UNILATERAL WITH PELVIS 2-3 VIEWS Natalya Ramos PA-C [address] [place] [address] [place] [address] Referral ID Status Reason Start Date Expiration Date V isits Requested Visits Authorized [id number] Closed Auto-Generate d Referral 09/11/2023 10/10/2024 1 1 * Diagnostic Procedure Only (Urgent) - Closed Specialty Diagnoses / Procedures Referred By Contac t Referred To Contact [facility] Diagnoses Lumbar radiculopathy Procedures XR LUMBAR GENERAL 3V AP/LAT/L5-S1 RADEX SPINE LUMBOSACRAL 2/3 VIEWS Natalya Ramos PA-C [address] [place] [address] [place] [address] Referral ID Status Reason Start Date Expiration Date V isits Requested Visits Authorized [id number] Closed Auto-Generate d Referral 09/11/2023 10/10/2024 1 1 [facility] for referral (narrative)* Outpatient Procedure (Routine) - Pending Review Specialty Diagnoses / Procedures Referred By Contac t Referred To [facility] Diagnoses Atrial fibrillation, unspecified type (HCC) Procedures ECG COMPLETE ECG ROUTINE ECG W/LEAST 12 LDS W/[place] [address] [place] [address] [facility] [address] [place], [place] [id number] Referral ID Status Reason Start Date Expiration Date Visits Requested Visits Authorized [id number] Pending Review Auto-Generat ed Referral 03/15/2024 03/15/2025 1 1 [facility] for referral (narrative)* Diagnostic Procedure Only (Urgent) - Closed Specialty Diagnoses / Procedures Referred By Contac t Referred To Contact [facility] Diagnoses Lumbar radiculopathy Procedures XR HIP GENERAL 3V PELV/AP/LAT LEFT RADEX HIP UNILATERAL WITH PELVIS 2-3 VIEWS Natalya Ramos PA-C [address] [place] [address] [place] [address] Referral ID Status Reason Start Date Expiration Date V isits Requested Visits Authorized [id number] Closed Auto-Generate d Referral 09/11/2023 10/10/2024 1 1 * Diagnostic Procedure Only (Urgent) - Closed Specialty Diagnoses / Procedures Referred By Contac t Referred To Contact X[facility] Diagnoses Lumbar radiculopathy Procedures XR LUMBAR GENERAL 3V AP/LAT/L5-S1 RADEX SPINE LUMBOSACRAL 2/3 VIEWS Natalya Ramos PA-C [address] [place] [address] [place] [address] Referral ID Status Reason Start Date Expiration Date V isits Requested Visits Authorized [id number] Closed Auto-Generate d Referral 09/11/2023 10/10/2024 1 1 [facility] Outpatient Procedure (Routine) - Authorized Specialty Diagnoses / Procedures Referred By Contac t Referred To Contact [facility] Diagnoses Encounter for IUD removal Procedures REMOVE INTRAUTERINE DEVICE REMOVE INTRAUTERINE DEVICE Alec Blair APRN.CNP [address] [place] [address] [facility] [address] [place] [address] Referral ID Status Reason Start Date Expiration Date Visits Requested Visits Authorized [id number] Authorized Auto-Generat ed Referral 08/25/2025 1 1 * Outpatient Procedure (Routine) - Authorized Specialty Diagnoses / Procedures Referred By Contac t Referred To Contact [facility] Diagnoses Encounter for IUD insertion Procedures INSERT INTRAUTERINE DEVICE LEVONORGESTREL IU 52MG 5 YR INSERT INTRAUTERINE DEVICE Alec Blair APRN.REGISTERED DIET TECHNICIAN [address] [place] [address] [facility] [address] [place] [address] Referral ID Status Reason Start Date Expiration Date Visits Requested Visits Authorized [id number] Authorized Auto-Generat ed Referral 4 08/25/2025 1 1 * Diagnostic Procedure Only (Routine) - Authorized Specialty Diagnoses / Procedures Referred By Contac t Referred To Contact [facility] Diagnoses Encounter for screening mammogram for breast cancer Procedures WERO SCREENING W HAYLEE SCREENING DIGITAL BREAST TOMOSYNTHESIS BI SCREENING MAMMOGRAPHY BI 2-VIEW BREAST INC CAD Alec Blair APRN.CNP [address] [place] [address] [facility] [address] [place] [phone] Referral ID Status Reason Start Date Expiration Date Visits Requested Visits Authorized [id number] Authorized Auto-Generat ed Referral 4 09/24/2025 1 1 [facility] for referral (narrative)* Outpatient Procedure (Routine) - Closed Specialty Diagnoses / Procedures Referred By Contac t Referred To Contact [facility] [place] Diagnoses Pacemaker reprogramming/check Procedures CARDIAC IMPLANTABLE DEVICE CHECK Self [facility] [address] [place] [address] Referral ID Status Reason Start Date Expiration Date V isits Requested Visits Authorized [id number] Closed Auto-Generate d Referral 09/07/2024 10/04/2024 1 1 * Outpatient Procedure (Routine) - Closed Specialty Diagnoses / Procedures Referred By Contac t Referred To Contact [facility] [place] [place] Diagnoses Pacemaker reprogramming/check Procedures CARDIAC IMPLANTABLE DEVICE CHECK Self [facility] [address] [place] [address] Referral ID Status Reason Start Date Expiration Date V isits Requested Visits Authorized [id number] Closed Auto-Generate d Referral 09/07/2024 10/04/2024 1 1 [facility] for referral (narrative)* Outpatient Procedure (Routine) - New Request Specialty Diagnoses / Procedures Referred By Darling babin Referred To Contact [facility] [place] Diagnoses Atrial fibrillation, unspecified type (HCC) HOCM (hypertrophic obstructive cardiomyopathy) (HCC) Procedures ECG COMPLETE ECG ROUTINE ECG W/LEAST 12 LDS W/I&R Oneyda Recinos MD [address] [facility] [place] [address] [address] Referral ID Status Reason Start Date Expiration Date Visits Requested Visits Authorized [id number] New Request Auto-Generat ed Referral 09/12/2024 09/12/2025 1 1 * Transition of Care (Routine) - Ref Not Required Specialty Diagnoses / Procedures Referred By Darling babin Referred To Contact [facility] Procedures CARDIOVASCULAR MEDICINE OP FOLLOW UP APPT ORDER Oneyda Recinos MD [address] [place] [address] [address] Referral ID Status Reason Start Date Expiration Date Visits Requested Visits Authorized [id number] Ref Not Required PCP Requested Referral 09/12/2025 12/11/2025 1 1 [facility]No reason for referral information availableWWyandot [facility] Work Phone: Reason for visit Narrative* Diagnostic Procedure Only (Routine) - Closed Specialty Diagnoses / Procedures Referred By Darling babin Referred To Contact [facility] Diagnoses Encounter for screening mammogram for breast cancer Procedures WERO SCREENING SCREENING MAMMOGRAPHY BI 2-VIEW BREAST INC CAD Kylah Palma PA-C [address] [place] [address] [facility] [address] [place] [address] Referral ID Status Reason Start Date Expiration Date V isits Requested Visits Authorized [id number] Closed Auto-Generate d Referral 11/27/2021 12/27/2022 1 1 [facility] for visit Narrative* Diagnostic Procedure Only (Routine) - Closed Specialty Diagnoses / Procedures Referred By Manuelac t Referred To Contact [facility] Diagnoses Abnormal mammogram Procedures WERO DIAGNOSTIC LEFT DIAGNOSTIC MAMMOGRAPHY COMPUTER-AIDED DETCJ UNI Ellen Jeter MD [address] [place] [address] [facility] [address] [place] [address] Referral ID Status Reason Start Date Expiration Date V isits Requested Visits Authorized [id number] Closed Auto-Generate d Referral 10/02/2023 10/31/2024 1 1 [facility] for visit Narrative* Diagnostic Procedure Only (Routine) - Closed Specialty Diagnoses / Procedures Referred By Darling t Referred To Contact [facility] Diagnoses Abnormal mammogram Procedures US BREAST LTD LEFT US BREAST UNI REAL TIME WITH IMAGE LIMITED Ellen Jeter MD [address] [place] [address] [facility] [address] [place] [phone] Referral ID Status Reason Start Date Expiration Date V isits Requested Visits Authorized [id number] Closed Auto-Generate d Referral 10/02/2023 10/31/2024 1 1 [facility] for visit Narrative* Diagnostic Procedure Only (Urgent) - Closed Specialty Diagnoses / Procedures Referred By Contac t Referred To Contact XR IMAG[facility] Diagnoses Lumbar radiculopathy Procedures XR HIP GENERAL 3V PELV/AP/LAT LEFT RADEX HIP UNILATERAL WITH PELVIS 2-3 VIEWS Natalya Ramos PAStacyC [address] [place] [address] [place] [address] Referral ID Status Reason Start Date Expiration Date V isits Requested Visits Authorized [id number] Closed Auto-Generate d Referral 09/11/2023 10/10/2024 1 1 [facility] for visit Narrative* Outpatient Procedure (Routine) - Closed Specialty Diagnoses / Procedures Referred By Contac t Referred To Contact [facility] [place] Diagnoses Pacemaker reprogramming/check Procedures CARDIAC IMPLANTABLE DEVICE CHECK Self [facility] [address] [place] [address] Referral ID Status Reason Start Date Expiration Date V isits Requested Visits Authorized [id number] Closed Auto-Generate d Referral 09/07/2024 10/04/2024 1 1 [facility] for visit Narrative* Diagnostic Procedure Only (Routine) - Closed Specialty Diagnoses / Procedures Referred By Darling t Referred To Contact [facility] Diagnoses Encounter for screening mammogram for breast cancer Procedures WERO SCREENING W HAYLEE SCREENING DIGITAL BREAST TOMOSYNTHESIS BI SCREENING MAMMOGRAPHY BI 2-VIEW BREAST INC CAD Alec Blair, 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.REGISTERED DIET TECHNICIAN [address] [place] [address] [facility] [address] [place] [phone] Referral ID Status Reason Start Date Expiration Date V isits Requested Visits Authorized [id number] Closed Auto-Generate d Referral 08/25/2024 09/24/2025 1 1 [facility] for visit Narrative* Outpatient Procedure (Routine) - Closed Specialty Diagnoses / Procedures [facility] To [facility] Diagnoses Marginal ulcer S/P gastric bypass Procedures EGD DIAGNOSTIC ESOPHAGOGASTRODUODENOSC OPY TRANSORAL DIAGNOSTIC Esperanza Mercer MD [address] [place] [address] Phone: tel: fax: [facility] [address] [place] [address] Referral ID Status Reason Start Date Expiration Date V isits Requested Visits Authorized [id number] Closed Auto-Generate d Referral 02/02/2025 10/04/2025 1 1 [facility] for visit Narrative* Outpatient Procedure (Routine) - Closed Specialty Diagnoses / Procedures [facility] Referred To Contact [facility] [place] Diagnoses Atrial fibrillation, persistent (HCC) Procedures ECG COMPLETE ECG ROUTINE ECG W/LEAST 12 LDS W/[place] [address] [place] [address] Phone: tel: fax: [address] [place] [address] Referral ID Status Reason Start Date Expiration Date V isits Requested Visits Authorized [id number] Closed Auto-Generat ed Referral Patient Cleared - Admin/Chairm an/Director advise to proceed or did not respond 04/18/2025 10/04/2025 1 1 [facility] Advance Directives No Advanced Directives Records FoundDocuments on File Type Date Recorded 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 Advance Directive(s) 04/19/2021 3:47 PM Advance Directive(s) 08/22/2020 3:39 PM Advance Directive(s) 12/06/2019 6:45 PM Advance Directive(s) 11/17/2019 11:47 AM Documents on File Type Date Recorded 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 Advance Directive(s) 04/19/2021 3:47 PM Advance Directive(s) 08/22/2020 3:39 PM Advance Directive(s) 12/06/2019 6:45 PM Advance Directive(s) 11/17/2019 11:47 AM Advance Directive Response Recorded Date/ Time Living Will No March 22, 2022 4:06pm Power of Customer Business Manager No March 22 4:06pm Advance Directive Response Recorded Date/ Time Living Will No June 26, 2022 8:43pm Power of Customer Business Manager No June 8:43pm Advance Directive Response Recorded Date/ Time Living Will No September 12 4:45pm Power of Customer Business Manager No September 12, 2022 4:45pm Advance Directive Response Recorded Date/ Time Living Will No October 26 4:08am Power of Customer Business Manager No October 26, 2022 4:08am Advance Directive Response Recorded Date/ Time Living Will No March 07, 2023 9 :17pm Power of Customer Business Manager No March 07, 2023 9:17pm Advance Directive Response Recorded Date/ Time Living Will No May 03, 2023 3:38pm Power of Customer Business Manager No May 03 3:38pm Advance Directive Response Recorded Date/ Time Living Will No January 18, 2024 4:45am Power of Customer Business Manager No January 17 4:45am Advance Directive Response Recorded Date/ Time Do you have a Healthcare Power of Customer Business Manager? No February 08, 2025 7:50pm Chief Complaint and Reason for Visit Chief Complaint A-FIB Chief Complaint A-FIB SOB Chief Complaint SOB PALPIATATION Chief Complaint PALPIATATION palpitations Chief Complaint DIZZINESS Chief Complaint DIZZINESS abd pain Chief Complaint afib Chief Complaint Admit Date nausea/vomitting February 08, 2025 6:54pm Health Concerns Infection Onset Date Last Indicated Resolved Time COVID-19 Rule-Out 06/11/2022 06/11/2022 Infection Onset Date Last Indicated Resolved Time COVID-19 Confirmed 06/11/2022 06/11/2022 Infection Onset Date Last Indicated Resolved Time COVID-19 Confirmed 06/11/2022 06/11/2022 Infection Onset Date Last Indicated Resolved Time COVID-19 Rule-Out 12/04/2022 12/04/2022 12/05/2022 12:10 AM EST Reason for Referral Specialty Diagnoses / Procedures Referred By Contac t Referred To Contact Diagnoses COVID-19 Procedures COVID TREATMENT REFERRAL COVID TREATMENT REFERRAL Radha Newby APRN.REGISTERED DIET TECHNICIAN [address] [place] [address] Referral ID Status Reason Start Date Expiration Date Visits Requested Visits Authorized [id number] Pending Review Auto-Generat ed Referral 06/12/2022 06/12/2023 1 1 Specialty Diagnoses / Procedures Referred By Contac t Referred To Contact Diagnoses Abnormal ultrasound Procedures CONSULT TO HEPATOLOGY OFFICE/OUTPATIENT [facility] 60-74 MINUTES Siobhan Sellers, PRAFUL.REGISTERED DIET TECHNICIAN [address] [place] [address] Referral ID Status Reason Start Date Expiration Date Visits Requested Visits Authorized [id number] Authorized PCP Requested Referral 10/25/2022 10/25/2023 1 1 Specialty Diagnoses / Procedures Referred By Contac t Referred To Contact Diagnoses QUINTON (obstructive sleep apnea) Procedures CONSULT TO SLEEP MEDICINE - ADULT OFFICE/OUTPATIENT [facility] 60-74 MINUTES Siobhan Sellers APRN.REGISTERED DIET TECHNICIAN [address] [place] [address] Referral ID Status Reason Start Date Expiration Date Visits Requested Visits Authorized [id number] Authorized PCP Requested Referral 10/25/2022 10/25/2023 1 1 Specialty Diagnoses / Procedures Referred By Contac t Referred To Contact Tri Parker MD [address] [place] [address] Referral ID Status Reason Start Date Expiration Date V isits Requested Visits Authorized [id number] Pending Review 1 1 Referral ID Status Reason Start Date Expiration Date V isits Requested Visits Authorized [id number] Pending Review 1 1 Specialty Diagnoses / Procedures Referred By Contac t Referred To Contact Diagnoses Class 3 severe obesity due to excess calories with serious comorbidity 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.9 in adult (HCC) Hypertrophic obstructive cardiomyopathy (HOCM) (HCC) Pre-op examination Procedures REFER TO PACC - PRE ANESTHESIA CONSULTATION CLINIC OFFICE/OUTPATIENT [facility] 60-74 MINUTES Esperanza Mercer MD [address] [place] [address] Referral ID Status Reason Start Date Expiration Date Visits Requested Visits Authorized [id number] Authorized PCP Requested Referral 01/08/2023 01/08/2024 1 1 Specialty Diagnoses / Procedures Referred By Contac t Referred To Contact Diagnoses Cholelithiasis with choledocholithiasis S/P gastric bypass Hypertrophic obstructive cardiomyopathy (HCC) Procedures VIRTUAL CONSULT TO PACC Esperanza Mercer MD [address] [place] [address] Referral ID Status Reason Start Date Expiration Date Visits Requested Visits Authorized [id number] Ref Not Required PCP Requested Referral 05/07/2023 08/05/2023 1 1 Specialty Diagnoses / Procedures Referred By Contac t Referred To Contact Cee Flowers MD [address] [place] [address] Referral ID Status Reason Start Date Expiration Date V isits Requested Visits Authorized [id number] Authorized 1 1 Specialty Diagnoses / Procedures Referred By Contac t Referred To [facility] Procedures CARDIOVASCULAR MEDICINE OP FOLLOW UP APPT ORDER Oneyda Recinos MD [address] [place] [address] [facility] [address] [place] [address] Referral ID Status Reason Start Date Expiration Date Visits Requested Visits Authorized [id number] Ref Not Required PCP Requested Referral 06/29/2024 12/27/2024 1 1 Specialty Diagnoses / Procedures Referred By Contac t Referred To Contact Gynecology Diagnoses Screening for cervical cancer Procedures CONSULT TO GYNECOLOGY OFFICE/OUTPATIENT NEW HIGH MDM 60 MINUTES Yissel Atkinson APRN.REGISTERED DIET TECHNICIAN [address] [place] [address] Referral ID Status Reason Start Date Expiration Date Visits Requested Visits Authorized [id number] Authorized PCP Requested Referral Auto-Generate d Referral 07/14/2025 1 1 Summary Purpose Family History No Family History Records Found Relationship Condition Age at Onset Recorded Date/T katheryn mother Diabetes mellitus Unknown Hypertension Unknown father Cerebrovascular accident (CVA) Unknown Additional Source Comments Source Comments (unrecognize d section and content) In the event this informatio n is protected by the Federal Confidentiality of Alcohol and Drug Abuse Patient Records regulations: The Federal rules restrict any use of the information to criminally investigate or prosecute any alcohol or drug abuse patient.[facility] the event this information is protected by the Federal Confidentiality of Alcohol and Drug Abuse Patient Records regulations: The Federal rules restrict any use of the information to criminally investigate or prosecute any alcohol or drug abuse patient.[facility]In the event this information is protected by the Federal Confidentiality of Alcohol and Drug Abuse Patient Records regulations: The Federal rules restrict any use of the information to criminally investigate or prosecute any alcohol or drug abuse patient.[facility]In the event this information is protected by the Federal Confidentiality of Alcohol and Drug Abuse Patient Records regulations: The Federal rules restrict any use of the information to criminally investigate or prosecute any alcohol or drug abuse patient.[facility]In the event this information is protected by the Federal Confidentiality of Alcohol and Drug Abuse Patient Records regulations: The Federal rules restrict any use of the information to criminally investigate or prosecute any alcohol or drug abuse patient.[facility]In the event this information is protected by the Federal Confidentiality of Alcohol and Drug Abuse Patient Records regulations: The Federal rules restrict any use of the information to criminally investigate or prosecute any alcohol or drug abuse patient.[facility]In the event this information is protected by the Federal Confidentiality of Alcohol and Drug Abuse Patient Records regulations: The Federal rules restrict any use of the information to criminally investigate or prosecute any alcohol or drug abuse patient.[facility]In the event this information is protected by the Federal Confidentiality of Alcohol and Drug Abuse Patient Records regulations: The Federal rules restrict any use of the information to criminally investigate or prosecute any alcohol or drug abuse patient.[facility]In the event this information is protected by the Federal Confidentiality of Alcohol and Drug Abuse Patient Records regulations: The Federal rules restrict any use of the information to criminally investigate or prosecute any alcohol or drug abuse patient.[facility]In the event this information is protected by the Federal Confidentiality of Alcohol and Drug Abuse Patient Records regulations: The Federal rules restrict any use of the information to criminally investigate or prosecute any alcohol or drug abuse patient.[facility]In the event this information is protected by the Federal Confidentiality of Alcohol and Drug Abuse Patient Records regulations: The Federal rules restrict any use of the information to criminally investigate or prosecute any alcohol or drug abuse patient.[facility]In the event this information is protected by the Federal Confidentiality of Alcohol and Drug Abuse Patient Records regulations: The Federal rules restrict any use of the information to criminally investigate or prosecute any alcohol or drug abuse patient.[facility]In the event this information is protected by the Federal Confidentiality of Alcohol and Drug Abuse Patient Records regulations: The Federal rules restrict any use of the information to criminally investigate or prosecute any alcohol or drug abuse patient.[facility]In the event this information is protected by the Federal Confidentiality of Alcohol and Drug Abuse Patient Records regulations: The Federal rules restrict any use of the information to criminally investigate or prosecute any alcohol or drug abuse patient.[facility]In the event this information is protected by the Federal Confidentiality of Alcohol and Drug Abuse Patient Records regulations: The Federal rules restrict any use of the information to criminally investigate or prosecute any alcohol or drug abuse patient.[facility] HospitalIn the event this information is protected by the Federal Confidentiality of Alcohol and Drug Abuse Patient Records regulations: The Federal rules restrict any use of the information to criminally investigate or prosecute any alcohol or drug abuse patient.[facility]In the event this information is protected by the Federal Confidentiality of Alcohol and Drug Abuse Patient Records regulations: The Federal rules restrict any use of the information to criminally investigate or prosecute any alcohol or drug abuse patient.[facility]In the event this information is protected by the Federal Confidentiality of Alcohol and Drug Abuse Patient Records regulations: The Federal rules restrict any use of the information to criminally investigate or prosecute any alcohol or drug abuse patient.[facility]In the event this information is protected by the Federal Confidentiality of Alcohol and Drug Abuse Patient Records regulations: The Federal rules restrict any use of the information to criminally investigate or prosecute any alcohol or drug abuse patient.[facility]In the event this information is protected by the Federal Confidentiality of Alcohol and Drug Abuse Patient Records regulations: The Federal rules restrict any use of the information to criminally investigate or prosecute any alcohol or drug abuse patient.[facility]In the event this information is protected by the Federal Confidentiality of Alcohol and Drug Abuse Patient Records regulations: The Federal rules restrict any use of the information to criminally investigate or prosecute any alcohol or drug abuse patient.[facility]In the event this information is protected by the Federal Confidentiality of Alcohol and Drug Abuse Patient Records regulations: The Federal rules restrict any use of the information to criminally investigate or prosecute any alcohol or drug abuse patient.[facility]In the event this information is protected by the Federal Confidentiality of Alcohol and Drug Abuse Patient Records regulations: The Federal rules restrict any use of the information to criminally investigate or prosecute any alcohol or drug abuse patient.[facility]In the event this information is protected by the Federal Confidentiality of Alcohol and Drug Abuse Patient Records regulations: The Federal rules restrict any use of the information to criminally investigate or prosecute any alcohol or drug abuse patient.[facility]In the event this information is protected by the Federal Confidentiality of Alcohol and Drug Abuse Patient Records regulations: The Federal rules restrict any use of the information to criminally investigate or prosecute any alcohol or drug abuse patient.[facility] HospitalIn the event this information is protected by the Federal Confidentiality of Alcohol and Drug Abuse Patient Records regulations: The Federal rules restrict any use of the information to criminally investigate or prosecute any alcohol or drug abuse patient.[facility] the event this information is protected by the Federal Confidentiality of Alcohol and Drug Abuse Patient Records regulations: The Federal rules restrict any use of the information to criminally investigate or prosecute any alcohol or drug abuse patient.[facility]In the event this information is protected by the Federal Confidentiality of Alcohol and Drug Abuse Patient Records regulations: The Federal rules restrict any use of the information to criminally investigate or prosecute any alcohol or drug abuse patient.[facility]In the event this information is protected by the Federal Confidentiality of Alcohol and Drug Abuse Patient Records regulations: The Federal rules restrict any use of the information to criminally investigate or prosecute any alcohol or drug abuse patient.[facility]In the event this information is protected by the Federal Confidentiality of Alcohol and Drug Abuse Patient Records regulations: The Federal rules restrict any use of the information to criminally investigate or prosecute any alcohol or drug abuse patient.[facility]In the event this information is protected by the Federal Confidentiality of Alcohol and Drug Abuse Patient Records regulations: The Federal rules restrict any use of the information to criminally investigate or prosecute any alcohol or drug abuse patient.[facility] HospitalIn the event this information is protected by the Federal Confidentiality of Alcohol and Drug Abuse Patient Records regulations: The Federal rules restrict any use of the information to criminally investigate or prosecute any alcohol or drug abuse patient.[facility]In the event this information is protected by the Federal Confidentiality of Alcohol and Drug Abuse Patient Records regulations: The Federal rules restrict any use of the information to criminally investigate or prosecute any alcohol or drug abuse patient.[facility]In the event this information is protected by the Federal Confidentiality of Alcohol and Drug Abuse Patient Records regulations: The Federal rules restrict any use of the information to criminally investigate or prosecute any alcohol or drug abuse patient.[facility]In the event this information is protected by the Federal Confidentiality of Alcohol and Drug Abuse Patient Records regulations: The Federal rules restrict any use of the information to criminally investigate or prosecute any alcohol or drug abuse patient.[facility]In the event this information is protected by the Federal Confidentiality of Alcohol and Drug Abuse Patient Records regulations: The Federal rules restrict any use of the information to criminally investigate or prosecute any alcohol or drug abuse patient.[facility]In the event this information is protected by the Federal Confidentiality of Alcohol and Drug Abuse Patient Records regulations: The Federal rules restrict any use of the information to criminally investigate or prosecute any alcohol or drug abuse patient.[facility]In the event this information is protected by the Federal Confidentiality of Alcohol and Drug Abuse Patient Records regulations: The Federal rules restrict any use of the information to criminally investigate or prosecute any alcohol or drug abuse patient.[facility]In the event this information is protected by the Federal Confidentiality of Alcohol and Drug Abuse Patient Records regulations: The Federal rules restrict any use of the information to criminally investigate or prosecute any alcohol or drug abuse patient.[facility]In the event this information is protected by the Federal Confidentiality of Alcohol and Drug Abuse Patient Records regulations: The Federal rules restrict any use of the information to criminally investigate or prosecute any alcohol or drug abuse patient.[facility]In the event this information is protected by the Federal Confidentiality of Alcohol and Drug Abuse Patient Records regulations: The Federal rules restrict any use of the information to criminally investigate or prosecute any alcohol or drug abuse patient.[facility]In the event this information is protected by the Federal Confidentiality of Alcohol and Drug Abuse Patient Records regulations: The Federal rules restrict any use of the information to criminally investigate or prosecute any alcohol or drug abuse patient.[facility]In the event this information is protected by the Federal Confidentiality of Alcohol and Drug Abuse Patient Records regulations: The Federal rules restrict any use of the information to criminally investigate or prosecute any alcohol or drug abuse patient.[facility]In the event this information is protected by the Federal Confidentiality of Alcohol and Drug Abuse Patient Records regulations: The Federal rules restrict any use of the information to criminally investigate or prosecute any alcohol or drug abuse patient.[facility]In the event this information is protected by the Federal Confidentiality of Alcohol and Drug Abuse Patient Records regulations: The Federal rules restrict any use of the information to criminally investigate or prosecute any alcohol or drug abuse patient.[facility]In the event this information is protected by the Federal Confidentiality of Alcohol and Drug Abuse Patient Records regulations: The Federal rules restrict any use of the information to criminally investigate or prosecute any alcohol or drug abuse patient.[facility]In the event this information is protected by the Federal Confidentiality of Alcohol and Drug Abuse Patient Records regulations: The Federal rules restrict any use of the information to criminally investigate or prosecute any alcohol or drug abuse patient.[facility]In the event this information is protected by the Federal Confidentiality of Alcohol and Drug Abuse Patient Records regulations: The Federal rules restrict any use of the information to criminally investigate or prosecute any alcohol or drug abuse patient.[facility]In the event this information is protected by the Federal Confidentiality of Alcohol and Drug Abuse Patient Records regulations: The Federal rules restrict any use of the information to criminally investigate or prosecute any alcohol or drug abuse patient.[facility]In the event this information is protected by the Federal Confidentiality of Alcohol and Drug Abuse Patient Records regulations: The Federal rules restrict any use of the information to criminally investigate or prosecute any alcohol or drug abuse patient.[facility]In the event this information is protected by the Federal Confidentiality of Alcohol and Drug Abuse Patient Records regulations: The Federal rules restrict any use of the information to criminally investigate or prosecute any alcohol or drug abuse patient.[facility]In the event this information is protected by the Federal Confidentiality of Alcohol and Drug Abuse Patient Records regulations: The Federal rules restrict any use of the information to criminally investigate or prosecute any alcohol or drug abuse patient.[facility]In the event this information is protected by the Federal Confidentiality of Alcohol and Drug Abuse Patient Records regulations: The Federal rules restrict any use of the information to criminally investigate or prosecute any alcohol or drug abuse patient.[facility]In the event this information is protected by the Federal Confidentiality of Alcohol and Drug Abuse Patient Records regulations: The Federal rules restrict any use of the information to criminally investigate or prosecute any alcohol or drug abuse patient.[facility]In the event this information is protected by the Federal Confidentiality of Alcohol and Drug Abuse Patient Records regulations: The Federal rules restrict any use of the information to criminally investigate or prosecute any alcohol or drug abuse patient.[facility]In the event this information is protected by the Federal Confidentiality of Alcohol and Drug Abuse Patient Records regulations: The Federal rules restrict any use of the information to criminally investigate or prosecute any alcohol or drug abuse patient.[facility]In the event this information is protected by the Federal Confidentiality of Alcohol and Drug Abuse Patient Records regulations: The Federal rules restrict any use of the information to criminally investigate or prosecute any alcohol or drug abuse patient.[facility]In the event this information is protected by the Federal Confidentiality of Alcohol and Drug Abuse Patient Records regulations: The Federal rules restrict any use of the information to criminally investigate or prosecute any alcohol or drug abuse patient.[facility]In the event this information is protected by the Federal Confidentiality of Alcohol and Drug Abuse Patient Records regulations: The Federal rules restrict any use of the information to criminally investigate or prosecute any alcohol or drug abuse patient.[facility]In the event this information is protected by the Federal Confidentiality of Alcohol and Drug Abuse Patient Records regulations: The Federal rules restrict any use of the information to criminally investigate or prosecute any alcohol or drug abuse patient.[facility]In the event this information is protected by the Federal Confidentiality of Alcohol and Drug Abuse Patient Records regulations: The Federal rules restrict any use of the information to criminally investigate or prosecute any alcohol or drug abuse patient.[facility]In the event this information is protected by the Federal Confidentiality of Alcohol and Drug Abuse Patient Records regulations: The Federal rules restrict any use of the information to criminally investigate or prosecute any alcohol or drug abuse patient.[facility]In the event this information is protected by the Federal Confidentiality of Alcohol and Drug Abuse Patient Records regulations: The Federal rules restrict any use of the information to criminally investigate or prosecute any alcohol or drug abuse patient.[facility]In the event this information is protected by the Federal Confidentiality of Alcohol and Drug Abuse Patient Records regulations: The Federal rules restrict any use of the information to criminally investigate or prosecute any alcohol or drug abuse patient.[facility]In the event this information is protected by the Federal Confidentiality of Alcohol and Drug Abuse Patient Records regulations: The Federal rules restrict any use of the information to criminally investigate or prosecute any alcohol or drug abuse patient.[facility]In the event this information is protected by the Federal Confidentiality of Alcohol and Drug Abuse Patient Records regulations: The Federal rules restrict any use of the information to criminally investigate or prosecute any alcohol or drug abuse patient.[facility]In the event this information is protected by the Federal Confidentiality of Alcohol and Drug Abuse Patient Records regulations: The Federal rules restrict any use of the information to criminally investigate or prosecute any alcohol or drug abuse patient.[facility]In the event this information is protected by the Federal Confidentiality of Alcohol and Drug Abuse Patient Records regulations: The Federal rules restrict any use of the information to criminally investigate or prosecute any alcohol or drug abuse patient.[facility]In the event this information is protected by the Federal Confidentiality of Alcohol and Drug Abuse Patient Records regulations: The Federal rules restrict any use of the information to criminally investigate or prosecute any alcohol or drug abuse patient.[facility]In the event this information is protected by the Federal Confidentiality of Alcohol and Drug Abuse Patient Records regulations: The Federal rules restrict any use of the information to criminally investigate or prosecute any alcohol or drug abuse patient.[facility]In the event this information is protected by the Federal Confidentiality of Alcohol and Drug Abuse Patient Records regulations: The Federal rules restrict any use of the information to criminally investigate or prosecute any alcohol or drug abuse patient.[facility]In the event this information is protected by the Federal Confidentiality of Alcohol and Drug Abuse Patient Records regulations: The Federal rules restrict any use of the information to criminally investigate or prosecute any alcohol or drug abuse patient.[facility]In the event this information is protected by the Federal Confidentiality of Alcohol and Drug Abuse Patient Records regulations: The Federal rules restrict any use of the information to criminally investigate or prosecute any alcohol or drug abuse patient.[facility]In the event this information is protected by the Federal Confidentiality of Alcohol and Drug Abuse Patient Records regulations: The Federal rules restrict any use of the information to criminally investigate or prosecute any alcohol or drug abuse patient.[facility]In the event this information is protected by the Federal Confidentiality of Alcohol and Drug Abuse Patient Records regulations: The Federal rules restrict any use of the information to criminally investigate or prosecute any alcohol or drug abuse patient.[facility]In the event this information is protected by the Federal Confidentiality of Alcohol and Drug Abuse Patient Records regulations: The Federal rules restrict any use of the information to criminally investigate or prosecute any alcohol or drug abuse patient.[facility] the event this information is protected by the Federal Confidentiality of Alcohol and Drug Abuse Patient Records regulations: The Federal rules restrict any use of the information to criminally investigate or prosecute any alcohol or drug abuse patient.[facility]In the event this information is protected by the Federal Confidentiality of Alcohol and Drug Abuse Patient Records regulations: The Federal rules restrict any use of the information to criminally investigate or prosecute any alcohol or drug abuse patient.[facility]In the event this information is protected by the Federal Confidentiality of Alcohol and Drug Abuse Patient Records regulations: The Federal rules restrict any use of the information to criminally investigate or prosecute any alcohol or drug abuse patient.[facility]In the event this information is protected by the Federal Confidentiality of Alcohol and Drug Abuse Patient Records regulations: The Federal rules restrict any use of the information to criminally investigate or prosecute any alcohol or drug abuse patient.[facility]In the event this information is protected by the Federal Confidentiality of Alcohol and Drug Abuse Patient Records regulations: The Federal rules restrict any use of the information to criminally investigate or prosecute any alcohol or drug abuse patient.[facility]In the event this information is protected by the Federal Confidentiality of Alcohol and Drug Abuse Patient Records regulations: The Federal rules restrict any use of the information to criminally investigate or prosecute any alcohol or drug abuse patient.[facility]In the event this information is protected by the Federal Confidentiality of Alcohol and Drug Abuse Patient Records regulations: The Federal rules restrict any use of the information to criminally investigate or prosecute any alcohol or drug abuse patient.[facility]In the event this information is protected by the Federal Confidentiality of Alcohol and Drug Abuse Patient Records regulations: The Federal rules restrict any use of the information to criminally investigate or prosecute any alcohol or drug abuse patient.[facility]In the event this information is protected by the Federal Confidentiality of Alcohol and Drug Abuse Patient Records regulations: The Federal rules restrict any use of the information to criminally investigate or prosecute any alcohol or drug abuse patient.[facility]In the event this information is protected by the Federal Confidentiality of Alcohol and Drug Abuse Patient Records regulations: The Federal rules restrict any use of the information to criminally investigate or prosecute any alcohol or drug abuse patient.[facility]In the event this information is protected by the Federal Confidentiality of Alcohol and Drug Abuse Patient Records regulations: The Federal rules restrict any use of the information to criminally investigate or prosecute any alcohol or drug abuse patient.[facility] HospitalIn the event this information is protected by the Federal Confidentiality of Alcohol and Drug Abuse Patient Records regulations: The Federal rules restrict any use of the information to criminally investigate or prosecute any alcohol or drug abuse patient.[facility]In the event this information is protected by the Federal Confidentiality of Alcohol and Drug Abuse Patient Records regulations: The Federal rules restrict any use of the information to criminally investigate or prosecute any alcohol or drug abuse patient.[facility]In the event this information is protected by the Federal Confidentiality of Alcohol and Drug Abuse Patient Records regulations: The Federal rules restrict any use of the information to criminally investigate or prosecute any alcohol or drug abuse patient.[facility]In the event this information is protected by the Federal Confidentiality of Alcohol and Drug Abuse Patient Records regulations: The Federal rules restrict any use of the information to criminally investigate or prosecute any alcohol or drug abuse patient.[facility]In the event this information is protected by the Federal Confidentiality of Alcohol and Drug Abuse Patient Records regulations: The Federal rules restrict any use of the information to criminally investigate or prosecute any alcohol or drug abuse patient.[facility]In the event this information is protected by the Federal Confidentiality of Alcohol and Drug Abuse Patient Records regulations: The Federal rules restrict any use of the information to criminally investigate or prosecute any alcohol or drug abuse patient.[facility]In the event this information is protected by the Federal Confidentiality of Alcohol and Drug Abuse Patient Records regulations: The Federal rules restrict any use of the information to criminally investigate or prosecute any alcohol or drug abuse patient.[facility]In the event this information is protected by the Federal Confidentiality of Alcohol and Drug Abuse Patient Records regulations: The Federal rules restrict any use of the information to criminally investigate or prosecute any alcohol or drug abuse patient.[facility]In the event this information is protected by the Federal Confidentiality of Alcohol and Drug Abuse Patient Records regulations: The Federal rules restrict any use of the information to criminally investigate or prosecute any alcohol or drug abuse patient.[facility]In the event this information is protected by the Federal Confidentiality of Alcohol and Drug Abuse Patient Records regulations: The Federal rules restrict any use of the information to criminally investigate or prosecute any alcohol or drug abuse patient.[facility] HospitalIn the event this information is protected by the Federal Confidentiality of Alcohol and Drug Abuse Patient Records regulations: The Federal rules restrict any use of the information to criminally investigate or prosecute any alcohol or drug abuse patient.[facility]In the event this information is protected by the Federal Confidentiality of Alcohol and Drug Abuse Patient Records regulations: The Federal rules restrict any use of the information to criminally investigate or prosecute any alcohol or drug abuse patient.[facility]In the event this information is protected by the Federal Confidentiality of Alcohol and Drug Abuse Patient Records regulations: The Federal rules restrict any use of the information to criminally investigate or prosecute any alcohol or drug abuse patient.[facility]In the event this information is protected by the Federal Confidentiality of Alcohol and Drug Abuse Patient Records regulations: The Federal rules restrict any use of the information to criminally investigate or prosecute any alcohol or drug abuse patient.[facility]In the event this information is protected by the Federal Confidentiality of Alcohol and Drug Abuse Patient Records regulations: The Federal rules restrict any use of the information to criminally investigate or prosecute any alcohol or drug abuse patient.[facility] HospitalIn the event this information is protected by the Federal Confidentiality of Alcohol and Drug Abuse Patient Records regulations: The Federal rules restrict any use of the information to criminally investigate or prosecute any alcohol or drug abuse patient.[facility] HospitalIn the event this information is protected by the Federal Confidentiality of Alcohol and Drug Abuse Patient Records regulations: The Federal rules restrict any use of the information to criminally investigate or prosecute any alcohol or drug abuse patient.[facility]In the event this information is protected by the Federal Confidentiality of Alcohol and Drug Abuse Patient Records regulations: The Federal rules restrict any use of the information to criminally investigate or prosecute any alcohol or drug abuse patient.[facility]In the event this information is protected by the Federal Confidentiality of Alcohol and Drug Abuse Patient Records regulations: The Federal rules restrict any use of the information to criminally investigate or prosecute any alcohol or drug abuse patient.[facility]In the event this information is protected by the Federal Confidentiality of Alcohol and Drug Abuse Patient Records regulations: The Federal rules restrict any use of the information to criminally investigate or prosecute any alcohol or drug abuse patient.[facility] HospitalIn the event this information is protected by the Federal Confidentiality of Alcohol and Drug Abuse Patient Records regulations: The Federal rules restrict any use of the information to criminally investigate or prosecute any alcohol or drug abuse patient.[facility]In the event this information is protected by the Federal Confidentiality of Alcohol and Drug Abuse Patient Records regulations: The Federal rules restrict any use of the information to criminally investigate or prosecute any alcohol or drug abuse patient.[facility] HospitalIn the event this information is protected by the Federal Confidentiality of Alcohol and Drug Abuse Patient Records regulations: The Federal rules restrict any use of the information to criminally investigate or prosecute any alcohol or drug abuse patient.[facility]In the event this information is protected by the Federal Confidentiality of Alcohol and Drug Abuse Patient Records regulations: The Federal rules restrict any use of the information to criminally investigate or prosecute any alcohol or drug abuse patient.[facility]In the event this information is protected by the Federal Confidentiality of Alcohol and Drug Abuse Patient Records regulations: The Federal rules restrict any use of the information to criminally investigate or prosecute any alcohol or drug abuse patient.[facility] HospitalIn the event this information is protected by the Federal Confidentiality of Alcohol and Drug Abuse Patient Records regulations: The Federal rules restrict any use of the information to criminally investigate or prosecute any alcohol or drug abuse patient.[facility] HospitalIn the event this information is protected by the Federal Confidentiality of Alcohol and Drug Abuse Patient Records regulations: The Federal rules restrict any use of the information to criminally investigate or prosecute any alcohol or drug abuse patient.[facility] HospitalIn the event this information is protected by the Federal Confidentiality of Alcohol and Drug Abuse Patient Records regulations: The Federal rules restrict any use of the information to criminally investigate or prosecute any alcohol or drug abuse patient.[facility] HospitalIn the event this information is protected by the Federal Confidentiality of Alcohol and Drug Abuse Patient Records regulations: The Federal rules restrict any use of the information to criminally investigate or prosecute any alcohol or drug abuse patient.[facility] HospitalIn the event this information is protected by the Federal Confidentiality of Alcohol and Drug Abuse Patient Records regulations: The Federal rules restrict any use of the information to criminally investigate or prosecute any alcohol or drug abuse patient.[facility] HospitalIn the event this information is protected by the Federal Confidentiality of Alcohol and Drug Abuse Patient Records regulations: The Federal rules restrict any use of the information to criminally investigate or prosecute any alcohol or drug abuse patient.[facility] HospitalIn the event this information is protected by the Federal Confidentiality of Alcohol and Drug Abuse Patient Records regulations: The Federal rules restrict any use of the information to criminally investigate or prosecute any alcohol or drug abuse patient.[facility] HospitalIn the event this information is protected by the Federal Confidentiality of Alcohol and Drug Abuse Patient Records regulations: The Federal rules restrict any use of the information to criminally investigate or prosecute any alcohol or drug abuse patient.[facility] HospitalIn the event this information is protected by the Federal Confidentiality of Alcohol and Drug Abuse Patient Records regulations: The Federal rules restrict any use of the information to criminally investigate or prosecute any alcohol or drug abuse patient.[facility]In the event this information is protected by the Federal Confidentiality of Alcohol and Drug Abuse Patient Records regulations: The Federal rules restrict any use of the information to criminally investigate or prosecute any alcohol or drug abuse patient.[facility]In the event this information is protected by the Federal Confidentiality of Alcohol and Drug Abuse Patient Records regulations: The Federal rules restrict any use of the information to criminally investigate or prosecute any alcohol or drug abuse patient.[facility] HospitalIn the event this information is protected by the Federal Confidentiality of Alcohol and Drug Abuse Patient Records regulations: The Federal rules restrict any use of the information to criminally investigate or prosecute any alcohol or drug abuse patient.[facility]In the event this information is protected by the Federal Confidentiality of Alcohol and Drug Abuse Patient Records regulations: The Federal rules restrict any use of the information to criminally investigate or prosecute any alcohol or drug abuse patient.[facility] HospitalIn the event this information is protected by the Federal Confidentiality of Alcohol and Drug Abuse Patient Records regulations: The Federal rules restrict any use of the information to criminally investigate or prosecute any alcohol or drug abuse patient.[facility] the event this information is protected by the Federal Confidentiality of Alcohol and Drug Abuse Patient Records regulations: The Federal rules restrict any use of the information to criminally investigate or prosecute any alcohol or drug abuse patient.[facility] HospitalIn the event this information is protected by the Federal Confidentiality of Alcohol and Drug Abuse Patient Records regulations: The Federal rules restrict any use of the information to criminally investigate or prosecute any alcohol or drug abuse patient.[facility] HospitalIn the event this information is protected by the Federal Confidentiality of Alcohol and Drug Abuse Patient Records regulations: The Federal rules restrict any use of the information to criminally investigate or prosecute any alcohol or drug abuse patient.[facility] HospitalIn the event this information is protected by the Federal Confidentiality of Alcohol and Drug Abuse Patient Records regulations: The Federal rules restrict any use of the information to criminally investigate or prosecute any alcohol or drug abuse patient.[facility] HospitalIn the event this information is protected by the Federal Confidentiality of Alcohol and Drug Abuse Patient Records regulations: The Federal rules restrict any use of the information to criminally investigate or prosecute any alcohol or drug abuse patient.[facility]In the event this information is protected by the Federal Confidentiality of Alcohol and Drug Abuse Patient Records regulations: The Federal rules restrict any use of the information to criminally investigate or prosecute any alcohol or drug abuse patient.[facility]In the event this information is protected by the Federal Confidentiality of Alcohol and Drug Abuse Patient Records regulations: The Federal rules restrict any use of the information to criminally investigate or prosecute any alcohol or drug abuse patient.[facility]In the event this information is protected by the Federal Confidentiality of Alcohol and Drug Abuse Patient Records regulations: The Federal rules restrict any use of the information to criminally investigate or prosecute any alcohol or drug abuse patient.[facility]In the event this information is protected by the Federal Confidentiality of Alcohol and Drug Abuse Patient Records regulations: The Federal rules restrict any use of the information to criminally investigate or prosecute any alcohol or drug abuse patient.[facility]In the event this information is protected by the Federal Confidentiality of Alcohol and Drug Abuse Patient Records regulations: The Federal rules restrict any use of the information to criminally investigate or prosecute any alcohol or drug abuse patient.[facility]In the event this information is protected by the Federal Confidentiality of Alcohol and Drug Abuse Patient Records regulations: The Federal rules restrict any use of the information to criminally investigate or prosecute any alcohol or drug abuse patient.[facility]In the event this information is protected by the Federal Confidentiality of Alcohol and Drug Abuse Patient Records regulations: The Federal rules restrict any use of the information to criminally investigate or prosecute any alcohol or drug abuse patient.[facility]In the event this information is protected by the Federal Confidentiality of Alcohol and Drug Abuse Patient Records regulations: The Federal rules restrict any use of the information to criminally investigate or prosecute any alcohol or drug abuse patient.[facility]In the event this information is protected by the Federal Confidentiality of Alcohol and Drug Abuse Patient Records regulations: The Federal rules restrict any use of the information to criminally investigate or prosecute any alcohol or drug abuse patient.[facility]In the event this information is protected by the Federal Confidentiality of Alcohol and Drug Abuse Patient Records regulations: The Federal rules restrict any use of the information to criminally investigate or prosecute any alcohol or drug abuse patient.[facility]In the event this information is protected by the Federal Confidentiality of Alcohol and Drug Abuse Patient Records regulations: The Federal rules restrict any use of the information to criminally investigate or prosecute any alcohol or drug abuse patient.[facility]In the event this information is protected by the Federal Confidentiality of Alcohol and Drug Abuse Patient Records regulations: The Federal rules restrict any use of the information to criminally investigate or prosecute any alcohol or drug abuse patient.[facility]In the event this information is protected by the Federal Confidentiality of Alcohol and Drug Abuse Patient Records regulations: The Federal rules restrict any use of the information to criminally investigate or prosecute any alcohol or drug abuse patient.[facility]In the event this information is protected by the Federal Confidentiality of Alcohol and Drug Abuse Patient Records regulations: The Federal rules restrict any use of the information to criminally investigate or prosecute any alcohol or drug abuse patient.[facility]In the event this information is protected by the Federal Confidentiality of Alcohol and Drug Abuse Patient Records regulations: The Federal rules restrict any use of the information to criminally investigate or prosecute any alcohol or drug abuse patient.[facility]In the event this information is protected by the Federal Confidentiality of Alcohol and Drug Abuse Patient Records regulations: The Federal rules restrict any use of the information to criminally investigate or prosecute any alcohol or drug abuse patient.[facility]In the event this information is protected by the Federal Confidentiality of Alcohol and Drug Abuse Patient Records regulations: The Federal rules restrict any use of the information to criminally investigate or prosecute any alcohol or drug abuse patient.[facility]In the event this information is protected by the Federal Confidentiality of Alcohol and Drug Abuse Patient Records regulations: The Federal rules restrict any use of the information to criminally investigate or prosecute any alcohol or drug abuse patient.[facility]In the event this information is protected by the Federal Confidentiality of Alcohol and Drug Abuse Patient Records regulations: The Federal rules restrict any use of the information to criminally investigate or prosecute any alcohol or drug abuse patient.[facility]In the event this information is protected by the Federal Confidentiality of Alcohol and Drug Abuse Patient Records regulations: The Federal rules restrict any use of the information to criminally investigate or prosecute any alcohol or drug abuse patient.[facility]In the event this information is protected by the Federal Confidentiality of Alcohol and Drug Abuse Patient Records regulations: The Federal rules restrict any use of the information to criminally investigate or prosecute any alcohol or drug abuse patient.[facility]In the event this information is protected by the Federal Confidentiality of Alcohol and Drug Abuse Patient Records regulations: The Federal rules restrict any use of the information to criminally investigate or prosecute any alcohol or drug abuse patient.[facility]In the event this information is protected by the Federal Confidentiality of Alcohol and Drug Abuse Patient Records regulations: The Federal rules restrict any use of the information to criminally investigate or prosecute any alcohol or drug abuse patient.[facility]In the event this information is protected by the Federal Confidentiality of Alcohol and Drug Abuse Patient Records regulations: The Federal rules restrict any use of the information to criminally investigate or prosecute any alcohol or drug abuse patient.[facility]In the event this information is protected by the Federal Confidentiality of Alcohol and Drug Abuse Patient Records regulations: The Federal rules restrict any use of the information to criminally investigate or prosecute any alcohol or drug abuse patient.[facility]In the event this information is protected by the Federal Confidentiality of Alcohol and Drug Abuse Patient Records regulations: The Federal rules restrict any use of the information to criminally investigate or prosecute any alcohol or drug abuse patient.[facility]In the event this information is protected by the Federal Confidentiality of Alcohol and Drug Abuse Patient Records regulations: The Federal rules restrict any use of the information to criminally investigate or prosecute any alcohol or drug abuse patient.[facility]In the event this information is protected by the Federal Confidentiality of Alcohol and Drug Abuse Patient Records regulations: The Federal rules restrict any use of the information to criminally investigate or prosecute any alcohol or drug abuse patient.[facility]In the event this information is protected by the Federal Confidentiality of Alcohol and Drug Abuse Patient Records regulations: The Federal rules restrict any use of the information to criminally investigate or prosecute any alcohol or drug abuse patient.[facility]In the event this information is protected by the Federal Confidentiality of Alcohol and Drug Abuse Patient Records regulations: The Federal rules restrict any use of the information to criminally investigate or prosecute any alcohol or drug abuse patient.[facility]In the event this information is protected by the Federal Confidentiality of Alcohol and Drug Abuse Patient Records regulations: The Federal rules restrict any use of the information to criminally investigate or prosecute any alcohol or drug abuse patient.[facility]In the event this information is protected by the Federal Confidentiality of Alcohol and Drug Abuse Patient Records regulations: The Federal rules restrict any use of the information to criminally investigate or prosecute any alcohol or drug abuse patient.[facility]In the event this information is protected by the Federal Confidentiality of Alcohol and Drug Abuse Patient Records regulations: The Federal rules restrict any use of the information to criminally investigate or prosecute any alcohol or drug abuse patient.[facility]In the event this information is protected by the Federal Confidentiality of Alcohol and Drug Abuse Patient Records regulations: The Federal rules restrict any use of the information to criminally investigate or prosecute any alcohol or drug abuse patient.[facility]In the event this information is protected by the Federal Confidentiality of Alcohol and Drug Abuse Patient Records regulations: The Federal rules restrict any use of the information to criminally investigate or prosecute any alcohol or drug abuse patient.[facility]In the event this information is protected by the Federal Confidentiality of Alcohol and Drug Abuse Patient Records regulations: The Federal rules restrict any use of the information to criminally investigate or prosecute any alcohol or drug abuse patient.[facility]In the event this information is protected by the Federal Confidentiality of Alcohol and Drug Abuse Patient Records regulations: The Federal rules restrict any use of the information to criminally investigate or prosecute any alcohol or drug abuse patient.[facility]In the event this information is protected by the Federal Confidentiality of Alcohol and Drug Abuse Patient Records regulations: The Federal rules restrict any use of the information to criminally investigate or prosecute any alcohol or drug abuse patient.[facility]In the event this information is protected by the Federal Confidentiality of Alcohol and Drug Abuse Patient Records regulations: The Federal rules restrict any use of the information to criminally investigate or prosecute any alcohol or drug abuse patient.[facility]In the event this information is protected by the Federal Confidentiality of Alcohol and Drug Abuse Patient Records regulations: The Federal rules restrict any use of the information to criminally investigate or prosecute any alcohol or drug abuse patient.[facility]In the event this information is protected by the Federal Confidentiality of Alcohol and Drug Abuse Patient Records regulations: The Federal rules restrict any use of the information to criminally investigate or prosecute any alcohol or drug abuse patient.[facility]In the event this information is protected by the Federal Confidentiality of Alcohol and Drug Abuse Patient Records regulations: The Federal rules restrict any use of the information to criminally investigate or prosecute any alcohol or drug abuse patient.[facility]In the event this information is protected by the Federal Confidentiality of Alcohol and Drug Abuse Patient Records regulations: The Federal rules restrict any use of the information to criminally investigate or prosecute any alcohol or drug abuse patient.[facility]In the event this information is protected by the Federal Confidentiality of Alcohol and Drug Abuse Patient Records regulations: The Federal rules restrict any use of the information to criminally investigate or prosecute any alcohol or drug abuse patient.[facility] the event this information is protected by the Federal Confidentiality of Alcohol and Drug Abuse Patient Records regulations: The Federal rules restrict any use of the information to criminally investigate or prosecute any alcohol or drug abuse patient.[facility] the event this information is protected by the Federal Confidentiality of Alcohol and Drug Abuse Patient Records regulations: The Federal rules restrict any use of the information to criminally investigate or prosecute any alcohol or drug abuse patient.[facility]In the event this information is protected by the Federal Confidentiality of Alcohol and Drug Abuse Patient Records regulations: The Federal rules restrict any use of the information to criminally investigate or prosecute any alcohol or drug abuse patient.[facility]In the event this information is protected by the Federal Confidentiality of Alcohol and Drug Abuse Patient Records regulations: The Federal rules restrict any use of the information to criminally investigate or prosecute any alcohol or drug abuse patient.[facility]In the event this information is protected by the Federal Confidentiality of Alcohol and Drug Abuse Patient Records regulations: The Federal rules restrict any use of the information to criminally investigate or prosecute any alcohol or drug abuse patient.[facility]In the event this information is protected by the Federal Confidentiality of Alcohol and Drug Abuse Patient Records regulations: The Federal rules restrict any use of the information to criminally investigate or prosecute any alcohol or drug abuse patient.[facility]In the event this information is protected by the Federal Confidentiality of Alcohol and Drug Abuse Patient Records regulations: The Federal rules restrict any use of the information to criminally investigate or prosecute any alcohol or drug abuse patient.[facility]In the event this information is protected by the Federal Confidentiality of Alcohol and Drug Abuse Patient Records regulations: The Federal rules restrict any use of the information to criminally investigate or prosecute any alcohol or drug abuse patient.[facility]In the event this information is protected by the Federal Confidentiality of Alcohol and Drug Abuse Patient Records regulations: The Federal rules restrict any use of the information to criminally investigate or prosecute any alcohol or drug abuse patient.[facility] HospitalIn the event this information is protected by the Federal Confidentiality of Alcohol and Drug Abuse Patient Records regulations: The Federal rules restrict any use of the information to criminally investigate or prosecute any alcohol or drug abuse patient.[facility]In the event this information is protected by the Federal Confidentiality of Alcohol and Drug Abuse Patient Records regulations: The Federal rules restrict any use of the information to criminally investigate or prosecute any alcohol or drug abuse patient.[facility]In the event this information is protected by the Federal Confidentiality of Alcohol and Drug Abuse Patient Records regulations: The Federal rules restrict any use of the information to criminally investigate or prosecute any alcohol or drug abuse patient.[facility]In the event this information is protected by the Federal Confidentiality of Alcohol and Drug Abuse Patient Records regulations: The Federal rules restrict any use of the information to criminally investigate or prosecute any alcohol or drug abuse patient.[facility]In the event this information is protected by the Federal Confidentiality of Alcohol and Drug Abuse Patient Records regulations: The Federal rules restrict any use of the information to criminally investigate or prosecute any alcohol or drug abuse patient.[facility] HospitalIn the event this information is protected by the Federal Confidentiality of Alcohol and Drug Abuse Patient Records regulations: The Federal rules restrict any use of the information to criminally investigate or prosecute any alcohol or drug abuse patient.[facility]In the event this information is protected by the Federal Confidentiality of Alcohol and Drug Abuse Patient Records regulations: The Federal rules restrict any use of the information to criminally investigate or prosecute any alcohol or drug abuse patient.[facility]In the event this information is protected by the Federal Confidentiality of Alcohol and Drug Abuse Patient Records regulations: The Federal rules restrict any use of the information to criminally investigate or prosecute any alcohol or drug abuse patient.[facility] HospitalIn the event this information is protected by the Federal Confidentiality of Alcohol and Drug Abuse Patient Records regulations: The Federal rules restrict any use of the information to criminally investigate or prosecute any alcohol or drug abuse patient.[facility] HospitalIn the event this information is protected by the Federal Confidentiality of Alcohol and Drug Abuse Patient Records regulations: The Federal rules restrict any use of the information to criminally investigate or prosecute any alcohol or drug abuse patient.[facility] HospitalIn the event this information is protected by the Federal Confidentiality of Alcohol and Drug Abuse Patient Records regulations: The Federal rules restrict any use of the information to criminally investigate or prosecute any alcohol or drug abuse patient.[facility]In the event this information is protected by the Federal Confidentiality of Alcohol and Drug Abuse Patient Records regulations: The Federal rules restrict any use of the information to criminally investigate or prosecute any alcohol or drug abuse patient.[facility] HospitalIn the event this information is protected by the Federal Confidentiality of Alcohol and Drug Abuse Patient Records regulations: The Federal rules restrict any use of the information to criminally investigate or prosecute any alcohol or drug abuse patient.[facility]In the event this information is protected by the Federal Confidentiality of Alcohol and Drug Abuse Patient Records regulations: The Federal rules restrict any use of the information to criminally investigate or prosecute any alcohol or drug abuse patient.[facility]In the event this information is protected by the Federal Confidentiality of Alcohol and Drug Abuse Patient Records regulations: The Federal rules restrict any use of the information to criminally investigate or prosecute any alcohol or drug abuse patient.[facility]In the event this information is protected by the Federal Confidentiality of Alcohol and Drug Abuse Patient Records regulations: The Federal rules restrict any use of the information to criminally investigate or prosecute any alcohol or drug abuse patient.[facility]In the event this information is protected by the Federal Confidentiality of Alcohol and Drug Abuse Patient Records regulations: The Federal rules restrict any use of the information to criminally investigate or prosecute any alcohol or drug abuse patient.[facility] HospitalIn the event this information is protected by the Federal Confidentiality of Alcohol and Drug Abuse Patient Records regulations: The Federal rules restrict any use of the information to criminally investigate or prosecute any alcohol or drug abuse patient.[facility] HospitalIn the event this information is protected by the Federal Confidentiality of Alcohol and Drug Abuse Patient Records regulations: The Federal rules restrict any use of the information to criminally investigate or prosecute any alcohol or drug abuse patient.[facility]In the event this information is protected by the Federal Confidentiality of Alcohol and Drug Abuse Patient Records regulations: The Federal rules restrict any use of the information to criminally investigate or prosecute any alcohol or drug abuse patient.[facility] HospitalIn the event this information is protected by the Federal Confidentiality of Alcohol and Drug Abuse Patient Records regulations: The Federal rules restrict any use of the information to criminally investigate or prosecute any alcohol or drug abuse patient.[facility]In the event this information is protected by the Federal Confidentiality of Alcohol and Drug Abuse Patient Records regulations: The Federal rules restrict any use of the information to criminally investigate or prosecute any alcohol or drug abuse patient.[facility] HospitalIn the event this information is protected by the Federal Confidentiality of Alcohol and Drug Abuse Patient Records regulations: The Federal rules restrict any use of the information to criminally investigate or prosecute any alcohol or drug abuse patient.[facility] HospitalIn the event this information is protected by the Federal Confidentiality of Alcohol and Drug Abuse Patient Records regulations: The Federal rules restrict any use of the information to criminally investigate or prosecute any alcohol or drug abuse patient.[facility]In the event this information is protected by the Federal Confidentiality of Alcohol and Drug Abuse Patient Records regulations: The Federal rules restrict any use of the information to criminally investigate or prosecute any alcohol or drug abuse patient.[facility] HospitalIn the event this information is protected by the Federal Confidentiality of Alcohol and Drug Abuse Patient Records regulations: The Federal rules restrict any use of the information to criminally investigate or prosecute any alcohol or drug abuse patient.[facility] HospitalIn the event this information is protected by the Federal Confidentiality of Alcohol and Drug Abuse Patient Records regulations: The Federal rules restrict any use of the information to criminally investigate or prosecute any alcohol or drug abuse patient.[facility]In the event this information is protected by the Federal Confidentiality of Alcohol and Drug Abuse Patient Records regulations: The Federal rules restrict any use of the information to criminally investigate or prosecute any alcohol or drug abuse patient.[facility] HospitalIn the event this information is protected by the Federal Confidentiality of Alcohol and Drug Abuse Patient Records regulations: The Federal rules restrict any use of the information to criminally investigate or prosecute any alcohol or drug abuse patient.[facility] HospitalIn the event this information is protected by the Federal Confidentiality of Alcohol and Drug Abuse Patient Records regulations: The Federal rules restrict any use of the information to criminally investigate or prosecute any alcohol or drug abuse patient.[facility] HospitalIn the event this information is protected by the Federal Confidentiality of Alcohol and Drug Abuse Patient Records regulations: The Federal rules restrict any use of the information to criminally investigate or prosecute any alcohol or drug abuse patient.[facility] HospitalIn the event this information is protected by the Federal Confidentiality of Alcohol and Drug Abuse Patient Records regulations: The Federal rules restrict any use of the information to criminally investigate or prosecute any alcohol or drug abuse patient.[facility] HospitalIn the event this information is protected by the Federal Confidentiality of Alcohol and Drug Abuse Patient Records regulations: The Federal rules restrict any use of the information to criminally investigate or prosecute any alcohol or drug abuse patient.[facility] HospitalIn the event this information is protected by the Federal Confidentiality of Alcohol and Drug Abuse Patient Records regulations: The Federal rules restrict any use of the information to criminally investigate or prosecute any alcohol or drug abuse patient.[facility]In the event this information is protected by the Federal Confidentiality of Alcohol and Drug Abuse Patient Records regulations: The Federal rules restrict any use of the information to criminally investigate or prosecute any alcohol or drug abuse patient.[facility] HospitalIn the event this information is protected by the Federal Confidentiality of Alcohol and Drug Abuse Patient Records regulations: The Federal rules restrict any use of the information to criminally investigate or prosecute any alcohol or drug abuse patient.[facility] Reason for Visit (unrecogniz ed section and content) Reason Onset Date Comments Refill Request 12/26/2021 Reason Comments Follow Up Skin Tags back of right knee Reason Onset Date Comments Refill Request 02/18/2022 Reason Onset Date Comments Refill Request 02/20/2022 Reason Onset Date Comments Refill Request 04/21/2022 Reason Comments Head Congestion cough, bodyaches, fa tigue x 2 days, + rapid covid today Reason Comments Telemedicine Reason Comments Appointment Reason Comments Eye Problem redness, watery, itc lyn and matting x few days Reason Onset Date Comments Refill Request 08/04/2022 Reason Comments Patient Education Assessment Reason Comments Low Back Pain Radiating to L thigh x1 day, no known injury Reason Comments PSG Check In Reason Comments Reassessment Patient Education Reason Comments Cardiology Follow Up Reason Comments New Patient Evaluation Referred by Dr Xavi shah of the [facility] for possible QUINTON. Here to review PSG slpit done 10/21/2022 and discuss treatment options. Specialty Diagnoses / Procedures Referred By Darling babin Referred To Contact Diagnoses QUINTON (obstructive sleep apnea) Procedures CONSULT TO SLEEP MEDICINE - ADULT OFFICE/OUTPATIENT [facility] HIGH MDM 60-74 MINUTES Siobhan Sellers, 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.REGISTERED DIET TECHNICIAN [address] [place] [address] Referral ID Status Reason Start Date Expiration Date V isits Requested Visits Authorized [id number] Closed PCP Requested Referral 10/25/2022 10/25/2023 1 1 Reason Comments Need Prior Auth - Medication Reason Comments CMN Reason Comments Blurred Vision Both Eyes Reason Comments Results Reason Comments Follow Up For Stem cell Deficiency Reason Comments Received Outside Medical Records Reason Onset Date Comments Refill Request 12/19/2022 Reason Comments 02/18/2023 Reason Comments Follow Up 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 Reason Onset Date Comments Anticoagulation Telephone Fu 03/20/2023 Lab INR Result Reason Comments Anticoagulation Telephone Fu Reason Onset Date Comments Anticoagulation Telephone Fu 04/03/2023 Lab INR Result Reason Comments Anticoagulation Telephone Fu Home meter enrollment Reason Comments VBC My Chart Follow-up Reason Comments Gallstones Reason Comments 05/20/2023 Reason Comments Anticoagulation Telephone Fu INR Lab Res ult Reason Comments Anesthesia Consult Reason Comments Anticoagulation Telephone Fu Lab INR Res ult Reason Onset Date Comments Anticoagulation Telephone Fu 06/01/2023 Lab INR Result Reason Comments Anticoagulation Reason Comments Insurance Authorization Reason Comments Refill Request Reason Comments Radiology US Specialty Diagnoses / Procedures Referred By Darling babin Referred To Contact US IMAG[facility] Diagnoses Class 3 obesity with alveolar hypoventilation, serious comorbidity, 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.9 in adult (HCC) Procedures US ABD RT UPPER QUADRANT US ABDOMINAL REAL TIME W/IMAGE LIMITED Siobhan Sellers, PRAFUL.REGISTERED DIET TECHNICIAN [address] [place] [address] [place] [address] Referral ID Status Reason Start Date Expiration Date V isits Requested Visits Authorized [id number] Closed Auto-Generate d Referral 09/18/2022 10/18/2023 1 1 Specialty Diagnoses / Procedures Referred By Darling t Referred To Contact [facility] Diagnoses Liver nodule Procedures US ABD RT UPPER QUADRANT US ABDOMINAL REAL TIME W/IMAGE LIMITED Meredith Avila PA-C [address] [place] [address] [place] [address] Referral ID Status Reason Start Date Expiration Date V isits Requested Visits Authorized [id number] Closed Auto-Generate d Referral 12/10/2022 01/02/2024 1 1 Reason Comments left hip pain Sharp shooting pain in left hip x 1 day Reason Comments Anticoagulation Home INR Reason Onset Date Comments Refill Request 12/03/2023 Reason Onset Date Comments Refill Request 12/07/2023 Reason Comments Refill Request Reason Comments Health information Reason Comments Clinical Symptoms Reason Onset Date Comments Transition Of Care 03/07/2024 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 [facility] 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 [facility] Pool Reason Comments Rosacea Keratitis Reason Comments Schedule Surgery Reason Onset Date Comments Refill Request 03/26/2024 Reason Comments Medical Clearance Reason Comments Pre-Op Exam 05/04/24 Keratectomy right eye Reason Comments Appointment Surgery Arrival Reason Onset Date Comments Refill Request 05/09/2024 Reason Comments Post Op Keratectomy right ey e Reason Comments Patient Update Patient Question Reason Comments Anticoagulation Home INR - MDINR Reason Comments Follow Up For Rosacea keratitis Reason Onset Date Comments Refill Request 05/17/2024 Reason Comments Forms Reason Comments Nurse Triage Call Reason Comments Insurance Authorization Restasis Reason Comments Patient Question Reason Comments Follow Up Reason Comments Appointment CALLED PT TO RESCHED ULE 09/26 APPTSNO ANSWER, LEFT VMPT HAS BEEN RESCHEDULED FOR 09/07 Reason Comments Eye Pain Right Eye Reason Onset Date Comments Refill Request 07/29/2024 Reason Comments Yearly Exam Specialty Diagnoses / Procedures Referred By Darling t Referred To Contact Gynecology Diagnoses Screening for cervical cancer Procedures CONSULT TO GYNECOLOGY OFFICE/OUTPATIENT NEW HIGH MDM 60 MINUTES Yissel Atkinson, 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.REGISTERED DIET TECHNICIAN [address] [place] [address] Referral ID Status Reason Start Date Expiration Date V isits Requested Visits Authorized [id number] Closed PCP Requested Referral Auto-Generated Referral 07/21/2024 07/14/2025 1 1 Reason Comments Referral Update Reason Onset Date Comments Refill Request 10/26/2024 Reason Comments Erroneous encounter-disregard Reason Onset Date Comments Refill Request 12/01/2024 Reason Comments Patient Update Updated home INR met er PAF Reason Comments Refill Request Restasis Reason Onset Date Comments Insertion Of IUD 01/11/2025 IUD Removal Specialty Diagnoses / Procedures Referred By Darling babin Referred To Contact [facility] Diagnoses Encounter for IUD insertion Procedures INSERT INTRAUTERINE DEVICE LEVONORGESTREL IU 52MG 5 YR INSERT INTRAUTERINE DEVICE Alec Blair APRN.REGISTERED DIET TECHNICIAN [address] [place] [address] Phone: tel: fax: [facility] [address] [place] [address] Referral ID Status Reason Start Date Expiration Date V isits Requested Visits Authorized [id number] Closed Auto-Generate d Referral 08/25/2024 08/25/2025 1 1 Reason Comments 6 Month Exam Reason Comments Preparations For Surgery Preoperative Co umadin instructions Reason Comments IUD Reason Comments Preparations For Surgery PACC Reason Comments Patient Update Reason Onset Date Comments Refill Request 03/14/2025 Sotalol-PENDING EKG Reason Onset Date Comments Refill Request 05/19/2025 Care Teams (unrecognized sec tion and content) Motion Study Analyst Relationship Specialty Start Date End Date Kylah Palma PA-C [address] [place] [address] PCP - General Family Practice 02/08/14 Oneyda Recinos MD [address] [place] [address] Primary Staff Physician Cardiology 04/29/21 Motion Study Analyst Relationship Specialty Start Date End Date Kylah Palma PA-C [address] [place], [place] [id number] PCP - General Family Practice 02/08/14 Oneyda Recinos MD [address] [place] [address] Primary Staff Physician Cardiology 04/29/21 Motion Study Analyst Relationship Specialty Start Date End Date Kylah Palma PA-C [address] [place] [address] PCP - General Family Practice 02/08/14 Oneyda Recinos MD [address] [place] [address] Primary Staff Physician Cardiology 04/29/21 Motion Study Analyst Relationship Specialty Start Date End Date Kylah Palma PA-C [address] [place] [address] PCP - General Family Practice 02/08/14 Oneyda Recinos MD [address] [place] [address] Primary Staff Physician Cardiology 04/29/21 Motion Study Analyst Relationship Specialty Start Date End Date Kylah Palma PA-C [address] [place] [address] PCP - General Family Practice 02/08/14 Oneyda Recinos MD [address] [place] [address] Primary Staff Physician Cardiology 04/29/21 Motion Study Analyst Relationship Specialty Start Date End Date Kylah Palma PA-C [address] [place] [address] PCP - General Family Practice 02/08/14 Oneyda Recinos MD [address] [place] [address] Primary Staff Physician Cardiology 04/29/21 Motion Study Analyst Relationship Specialty Start Date End Date Kylah Palma PA-C [address] [place] [address] PCP - General Family Practice 02/08/14 Oneyda Recinos MD [address] [place] [address] Primary Staff Physician Cardiology 04/29/21 Motion Study Analyst Relationship Specialty Start Date End Date Kylah Palma PA-C [address] [place] [address] PCP - General Family Practice 02/08/14 Oneyda Recinos MD [address] [place] [address] Primary Staff Physician Cardiology 04/29/21 Motion Study Analyst Relationship Specialty Start Date End Date Kylah Palma PA-C [address] [place] [address] PCP - General Family Practice 02/08/14 Oneyda Recinos MD [address] [place] [address] Primary Staff Physician Cardiology 04/29/21 Motion Study Analyst Relationship Specialty Start Date End Date Kylah Palma PA-C [address] [place] [address] PCP - General Family Practice 02/08/14 Oneyda Recinos MD [address] [place] [address] Primary Staff Physician Cardiology 04/29/21 Motion Study Analyst Relationship Specialty Start Date End Date Kylah Palma PA-C [address] [place] [address] PCP - General Family Practice 02/08/14 Oneyda Recinos MD [address] [place] [address] Primary Staff Physician Cardiology 04/29/21 Motion Study Analyst Relationship Specialty Start Date End Date Kylah Palma PA-C [address] [place] [address] PCP - General Family Medicine 02/08/14 Oneyda Recinos MD [address] [place] [address] Primary Staff Physician Cardiology 04/29/21 Motion Study Analyst Relationship Specialty Start Date End Date Kylah Palma PA-C [address] [place] [address] PCP - General Family Medicine 02/08/14 Oneyda Recinos MD [address] [place] [address] Primary Staff Physician Cardiology 04/29/21 Motion Study Analyst Relationship Specialty Start Date End Date Kylah Palma PA-C [address] [place] [address] PCP - General Family Medicine 02/08/14 Oneyda Recinos MD [address] [place] [address] Primary Staff Physician Cardiology 04/29/21 Motion Study Analyst Relationship Specialty Start Date End Date Kylah Palma PA-C [address] [place] [address] PCP - General Family Medicine 02/08/14 Oneyda Recinos MD [address] [place] [address] Primary Staff Physician Cardiology 04/29/21 Motion Study Analyst Relationship Specialty Start Date End Date Kylah Palma PA-C [address] [place] [address] PCP - General Family Medicine 02/08/14 Oneyda Recinos MD [address] [place] [address] Primary Staff Physician Cardiology 04/29/21 Motion Study Analyst Relationship Specialty Start Date End Date Kylah Palma PA-C [address] [place] [address] PCP - General Family Medicine 02/08/14 Oneyda Recinos MD [address] [place] [address] Primary Staff Physician Cardiology 04/29/21 Motion Study Analyst Relationship Specialty Start Date End Date Kylah Palma PA-C [address] [place] [address] PCP - General Family Medicine 02/08/14 Oneyda Recinos MD [address] [place] [address] Primary Staff Physician Cardiology 04/29/21 Motion Study Analyst Relationship Specialty Start Date End Date Kylah Palma PA-C [address] [place] [address] PCP - General Family Medicine 02/08/14 Oneyda Recinos MD [address] [place] [address] Primary Staff Physician Cardiology 04/29/21 Motion Study Analyst Relationship Specialty Start Date End Date Kylah Palma PA-C [address] [place] [address] PCP - General Family Medicine 02/08/14 Oneyda Recinos MD [address] [place] [address] Primary Staff Physician Cardiology 04/29/21 Motion Study Analyst Relationship Specialty Start Date End Date Kylah Palma PA-C [address] [place] [address] PCP - General Family Medicine 02/08/14 Oneyda Recinos MD [address] [place] [address] Primary Staff Physician Cardiology 04/29/21 Motion Study Analyst Relationship Specialty Start Date End Date Kylah Palma PA-C [address] [place] [address] PCP - General Family Medicine 02/08/14 Oneyda Recinos MD [address] [place] [address] Primary Staff Physician Cardiology 04/29/21 Team Status: Active Member Role Status Dates HALEY Mendoza Family Provider Active HALEY Mendoza Primary Care Provider Active Team Status: Inactive Member Role Status Dates HALEY Mendoza Primary Care Provider Active Dr. Conchita Ferguson MD Attending Provider, Emergency Provider Active Team Status: Inactive Member Role Status Dates HALEY Mendoza Primary Care Provider Active Dr. Jerome Brower DO Emergency Provider Active Motion Study Analyst Relationship Specialty Start Date End Date Kylah Palma PA-C [address] [place] [address] PCP - General Family Medicine 02/08/14 Oneyda Recinos MD [address] [place] [address] Primary Staff Physician Cardiology 04/29/21 Motion Study Analyst Relationship Specialty Start Date End Date Kylah Palma PA-C [address] [place] [address] PCP - General Family Medicine 02/08/14 Oneyda Recinos MD [address] [place] [address] Primary Staff Physician Cardiology 04/29/21 Motion Study Analyst Relationship Specialty Start Date End Date Kylah Palma PA-C [address] [place] [address] PCP - General Family Medicine 02/08/14 Oneyda Recinos MD [address] [place] [address] Primary Staff Physician Cardiology 04/29/21 Motion Study Analyst Relationship Specialty Start Date End Date Kylah Palma PA-C [address] [place] [address] PCP - General Family Medicine 02/08/14 Oneyda Recinos MD [address] [place] [address] Primary Staff Physician Cardiology 04/29/21 Jayjay Ortiz MD [address] [place] [address] Primary Staff Physician Cardiology 11/25/22 Motion Study Analyst Relationship Specialty Start Date End Date Kylah Palma PA-C [address] [place] [address] PCP - General Family Medicine 02/08/14 Oneyda Recinos MD [address] [place] [address] Primary Staff Physician Cardiology 04/29/21 aJyjay Ortiz MD [address] [place] [address] Primary Staff Physician Cardiology 11/25/22 Motion Study Analyst Relationship Specialty Start Date End Date Kylah Palma PA-C [address] [place] [address] PCP - General Family Medicine 02/08/14 Oneyda Recinos MD [address] [place] [address] Primary Staff Physician Cardiology 04/29/21 Jayjay Ortiz MD [address] [place] [address] Primary Staff Physician Cardiology 11/25/22 Motion Study Analyst Relationship Specialty Start Date End Date Kylah Palma PA-C [address] [place] [address] PCP - General Family Medicine 02/08/14 Oneyda Recinos MD [address] [place] [address] Primary Staff Physician Cardiology 04/29/21 Jayjay Ortiz MD [address] [place] [address] Primary Staff Physician Cardiology 11/25/22 Motion Study Analyst Relationship Specialty Start Date End Date Kylah Palma PA-C [address] [place] [address] PCP - General Family Medicine 02/08/14 Oneyda Recinos MD [address] [facility] [place] [address] Primary Staff Physician Cardiology 04/29/21 Jayjay Ortiz MD [address] [place] [address] Primary Staff Physician Cardiology 11/25/22 Motion Study Analyst Relationship Specialty Start Date End Date Kylah Palma PA-C [address] [place] [address] PCP - General Family Medicine 02/08/14 Oneyda Recinos MD [address] [facility] [place] [address] Primary Staff Physician Cardiology 04/29/21 Jayjay Ortiz MD [address] [place] [address] Primary Staff Physician Cardiology 11/25/22 Motion Study Analyst Relationship Specialty Start Date End Date Kylah Palma PA-C [address] [place] [address] PCP - General Family Medicine 02/08/14 Oneyda Recinos MD [address] [place] [address] Primary Staff Physician Cardiology 04/29/21 Jayjay Ortiz MD [address] [place] [address] Primary Staff Physician Cardiology 11/25/22 Motion Study Analyst Relationship Specialty Start Date End Date Kylah Palma PA-C [address] [place] [address] PCP - General Family Medicine 02/08/14 Oneyda Recinos MD [address] [place] [address] Primary Staff Physician Cardiology 04/29/21 Jayjay Ortiz MD [address] [place] [address] Primary Staff Physician Cardiology 11/25/22 Motion Study Analyst Relationship Specialty Start Date End Date Kylah Palma PA-C [address] [place] [address] PCP - General Family Medicine 02/08/14 Oneyda Recinos MD [address] [place] [address] Primary Staff Physician Cardiology 04/29/21 Jayjay Ortiz MD [address] [place] [address] Primary Staff Physician Cardiology 11/25/22 Motion Study Analyst Relationship Specialty Start Date End Date Kylah Palma PA-C [address] [place] [address] PCP - General Family Medicine 02/08/14 Oneyda Recinos MD [address] [place] [address] Primary Staff Physician Cardiology 04/29/21 Jayjay Ortiz MD [address] [facility] [place] [address] Primary Staff Physician Cardiology 11/25/22 Motion Study Analyst Relationship Specialty Start Date End Date Kylah Palma PA-C [address] [place] [address] PCP - General Family Medicine 02/08/14 Oneyda Recinos MD [address] [place] [address] Primary Staff Physician Cardiology 04/29/21 Jayjay Ortiz MD [address] [place] [address] Primary Staff Physician Cardiology 11/25/22 Motion Study Analyst Relationship Specialty Start Date End Date Kylah Palma PA-C [address] [place] [address] PCP - General Family Medicine 02/08/14 Oneyda Recinos MD [address] [facility] [place] [address] Primary Staff Physician Cardiology 04/29/21 Jayjay Ortiz MD [address] [place] [address] Primary Staff Physician Cardiology 11/25/22 Motion Study Analyst Relationship Specialty Start Date End Date Kylah Palma PA-C [address] [place] [address] PCP - General Family Medicine 02/08/14 Oneyda Recinos MD [address] [place] [address] Primary Staff Physician Cardiology 04/29/21 Jayjay Ortiz MD [address] [place] [address] Primary Staff Physician Cardiology 11/25/22 Motion Study Analyst Relationship Specialty Start Date End Date Kylah Palma PA-C [address] [place] [address] PCP - General Family Medicine 02/08/14 Oneyda Recinos MD [address] [place] [address] Primary Staff Physician Cardiology 04/29/21 Jayjay Ortiz MD [address] [place] [address] Primary Staff Physician Cardiology 11/25/22 Team Status: Inactive Member Role Status HALEY Boyle Primary Care Provider Active Dr. Luis Vaughn MD Emergency Provider Active Motion Study Analyst Relationship Specialty Start Date End Date Kylah Palma PA-C [address] [place] [address] PCP - General Family Medicine 02/08/14 Oneyda Recinos MD [address] [place] [address] Primary Staff Physician Cardiology 04/29/21 Jayjay Ortiz MD [address] [facility] [place] [address] Primary Staff Physician Cardiology 11/25/22 Motion Study Analyst Relationship Specialty Start Date End Date Kylah Palma PA-C [address] [place] [address] PCP - General Family Medicine 02/08/14 Oneyda Recinos MD [address] [facility] [place] [address] Primary Staff Physician Cardiology 04/29/21 Jayjay Ortiz MD [address] [facility] [place] [address] Primary Staff Physician Cardiology 11/25/22 Motion Study Analyst Relationship Specialty Start Date End Date Kylah Palma PA-C [address] [place] [address] PCP - General Family Medicine 02/08/14 Oneyda Recinos MD [address] [facility] [place] [address] Primary Staff Physician Cardiology 04/29/21 Jayjay Ortiz MD [address] [facility] [place] [address] Primary Staff Physician Cardiology 11/25/22 Motion Study Analyst Relationship Specialty Start Date End Date Kylah Palma PA-C [address] [place] [address] PCP - General Family Medicine 02/08/14 Oneyda Recinos MD [address] [place] [address] Primary Staff Physician Cardiology 04/29/21 Jayjay Ortiz MD [address] [place] [address] Primary Staff Physician Cardiology 11/25/22 Motion Study Analyst Relationship Specialty Start Date End Date Kylah Palma PA-C [address] [place] [address] PCP - General Family Medicine 02/08/14 Oneyda Recinos MD [address] [place] [address] Primary Staff Physician Cardiology 04/29/21 Jayjay Ortiz MD [address] [place] [address] Primary Staff Physician Cardiology 11/25/22 15, Pharmacist [address] [place] [address] Pharmacist Pharmacy 03/12/23 Motion Study Analyst Relationship Specialty Start Date End Date Kylah Palma PA-C [address] [place] [address] PCP - General Family Medicine 02/08/14 Oneyda Recinos MD [address] [place] [address] Primary Staff Physician Cardiology 04/29/21 Jayjay Ortiz MD [address] [place] [address] Primary Staff Physician Cardiology 11/25/22 15, Pharmacist [address] [place] [address] Pharmacist Pharmacy 03/12/23 Motion Study Analyst Relationship Specialty Start Date End Date Kylah Palma PA-C [address] [place] [address] PCP - General Family Medicine 02/08/14 Oneyda Recinos MD [address] [place] [address] Primary Staff Physician Cardiology 04/29/21 Jayjay Ortiz MD [address] [place] [address] Primary Staff Physician Cardiology 11/25/22 15, Pharmacist [address] [place] [address] Pharmacist Pharmacy 03/12/23 Motion Study Analyst Relationship Specialty Start Date End Date Kylah Palma PA-C [address] [place] [address] PCP - General Family Medicine 02/08/14 Oneyda Recinos MD [address] [place] [address] Primary Staff Physician Cardiology 04/29/21 Jayjay Ortiz MD [address] [place] [address] Primary Staff Physician Cardiology 11/25/22 15, Pharmacist [address] [place] [address] Pharmacist Pharmacy 03/12/23 Motion Study Analyst Relationship Specialty Start Date End Date Kylah Palma PA-C [address] [place] [address] PCP - General Family Medicine 02/08/14 Oneyda Recinos MD [address] [place] [address] Primary Staff Physician Cardiology 04/29/21 Jayjay Ortiz MD [address] [place] [address] Primary Staff Physician Cardiology 11/25/22 15, Pharmacist [address] [place] [address] Pharmacist Pharmacy 03/12/23 Motion Study Analyst Relationship Specialty Start Date End Date Kylah Palma PA-C [address] [place] [address] PCP - General Family Medicine 02/08/14 Oneyda Recinos MD [address] [place] [address] Primary Staff Physician Cardiology 04/29/21 Jayjay Ortiz MD [address] [place] [address] Primary Staff Physician Cardiology 11/25/22 15, Pharmacist [address] [place] [address] Pharmacist Pharmacy 03/12/23 Motion Study Analyst Relationship Specialty Start Date End Date Kylah Palma PA-C [address] [place] [address] PCP - General Family Medicine 02/08/14 Oneyda Recinos MD [address] [place] [address] Primary Staff Physician Cardiology 04/29/21 Jayjay Ortiz MD [address] [place] [address] Primary Staff Physician Cardiology 11/25/22 15, Pharmacist [address] [place] [address] Pharmacist Pharmacy 03/12/23 Motion Study Analyst Relationship Specialty Start Date End Date Kylah Palma PA-C [address] [place] [address] PCP - General Family Medicine 02/08/14 Oneyda Recinos MD [address] [place] [address] Primary Staff Physician Cardiology 04/29/21 Jayjay Ortiz MD [address] [place] [address] Primary Staff Physician Cardiology 11/25/22 15, Pharmacist [address] [place] [address] Pharmacist Pharmacy 03/12/23 Motion Study Analyst Relationship Specialty Start Date End Date Kylah Palma PA-C [address] [place] [address] PCP - General Family Medicine 02/08/14 Oneyda Recinos MD [address] [place] [address] Primary Staff Physician Cardiology 04/29/21 Jayjay Ortiz MD [address] [place] [address] Primary Staff Physician Cardiology 11/25/22 15, Pharmacist [address] [place] [address] Pharmacist Pharmacy 03/12/23 Motion Study Analyst Relationship Specialty Start Date End Date Kylah Palma PA-C [address] [place] [address] PCP - General Family Medicine 02/08/14 Oneyda Recinos MD [address] [place] [address] Primary Staff Physician Cardiology 04/29/21 Jayjay Ortiz MD [address] [place] [address] Primary Staff Physician Cardiology 11/25/22 15, Pharmacist [address] [place] [address] Pharmacist Pharmacy 03/12/23 Motion Study Analyst Relationship Specialty Start Date End Date Kylah Palma PA-C [address] [place] [address] PCP - General Family Medicine 02/08/14 Oneyda Recinos MD [address] [place] [address] Primary Staff Physician Cardiology 04/29/21 Jayjay Ortiz MD [address] [place] [address] Primary Staff Physician Cardiology 11/25/22 15, Pharmacist [address] [place] [address] Pharmacist Pharmacy 03/12/23 Team Status: Inactive Member Role Status Dates HALEY Mendoza Primary Care Provider Active Dr. Luis Vaughn MD Attending Provider, Emergency Pro vider Active Team Status: Inactive Member Role Status Dates HALEY Mendoza Primary Care Provider Active Dr. Geo Godoy , Emergency Provider Active Motion Study Analyst Relationship Specialty Start Date End Date Kylah Palma PA-C [address] [place] [address] PCP - General Family Medicine 02/08/14 Oneyda Recinos MD [address] [place], [place] [address]25[address]95 Primary Staff Physician Cardiology 04/29/21 Jayjay Ortiz MD [address] [place] [address] Primary Staff Physician Cardiology 11/25/22 15, Pharmacist [address] [place] [address] Pharmacist Pharmacy 03/12/23 Motion Study Analyst Relationship Specialty Start Date End Date Kylah Palma PA-C [address] [place] [address] PCP - General Family Medicine 02/08/14 Oneyda Recinos MD [address] [place] [address] Primary Staff Physician Cardiology 04/29/21 Jayjay Ortiz MD [address] [place] [address] Primary Staff Physician Cardiology 11/25/22 15, Pharmacist [address] [place] [address] Pharmacist Pharmacy 03/12/23 Motion Study Analyst Relationship Specialty Start Date End Date Kylah Palma PA-C [address] [place] [address] PCP - General Family Medicine 02/08/14 Oneyda Recinos MD [address] [place] [address] Primary Staff Physician Cardiology 04/29/21 Jayjay Ortiz MD [address] [place], [place] [id number] Primary Staff Physician Cardiology 11/25/22 15, Pharmacist [address] [place] [address] Pharmacist Pharmacy 03/12/23 Motion Study Analyst Relationship Specialty Start Date End Date Kylah Palma PA-C [address] [place] [address] PCP - General Family Medicine 02/08/14 Oneyda Recinos MD [address] [place], [place] [address] Primary Staff Physician Cardiology 04/29/21 Jayjay Ortiz MD [address] [place], [place] [address] Primary Staff Physician Cardiology 11/25/22 15, Pharmacist [address] [place] [address] Pharmacist Pharmacy 03/12/23 Motion Study Analyst Relationship Specialty Start Date End Date Kylah Palma PA-C [address] [place] [address] PCP - General Family Medicine 02/08/14 Oneyda Recinos MD [address] [place] [address] Primary Staff Physician Cardiology 04/29/21 Jayjay Oritz MD [address] [place] [address] Primary Staff Physician Cardiology 11/25/22 15, Pharmacist [address] [place] [address] Pharmacist Pharmacy 03/12/23 Motion Study Analyst Relationship Specialty Start Date End Date Kylah Palma PA-C [address] [place] [address] PCP - General Family Medicine 02/08/14 Oneyda Recinos MD [address] [place] [address] Primary Staff Physician Cardiology 04/29/21 Jayjay Ortiz MD [address] [place] [address] Primary Staff Physician Cardiology 11/25/22 15, Pharmacist [address] [place] [address] Pharmacist Pharmacy 03/12/23 Motion Study Analyst Relationship Specialty Start Date End Date Kylah Palma PA-C [address] [place] [address] PCP - General Family Medicine 02/08/14 Oneyda Recinos MD [address] [place] [address] Primary Staff Physician Cardiology 04/29/21 Jayjay Ortiz MD [address] [place] [address] Primary Staff Physician Cardiology 11/25/22 15, Pharmacist [address] [place] [address] Pharmacist Pharmacy 03/12/23 Motion Study Analyst Relationship Specialty Start Date End Date Kylah Palma PA-C [address] [place] [address] PCP - General Family Medicine 02/08/14 Oneyda Recinos MD [address] [place] [address] Primary Staff Physician Cardiology 04/29/21 Jayjay Ortiz MD [address] [place] [address] Primary Staff Physician Cardiology 11/25/22 15, Pharmacist [address] [place] [address] Pharmacist Pharmacy 03/12/23 Motion Study Analyst Relationship Specialty Start Date End Date Kylah Palma PA-C [address] [place], [place] [address]67251 PCP - General Family Medicine 02/08/14 Oneyda Recinos MD [address] [place] [address] Primary Staff Physician Cardiology 04/29/21 Jayjay Ortiz MD [address] [place] [address] Primary Staff Physician Cardiology 11/25/22 15, Pharmacist [address] [place] [address] Pharmacist Pharmacy 03/12/23 Motion Study Analyst Relationship Specialty Start Date End Date Kylah Palma PA-C [address] [place], [place] 646081 PCP - General Family Medicine 02/08/14 Oneyda Recinos MD [address] [place] [address] Primary Staff Physician Cardiology 04/29/21 Jayjay Ortiz MD [address] [place] [address] Primary Staff Physician Cardiology 11/25/22 15, Pharmacist [address] [place] [address] Pharmacist Pharmacy 03/12/23 Motion Study Analyst Relationship Specialty Start Date End Date Kylah Palma PA-C [address] [place] [address] PCP - General Family Medicine 02/08/14 Oneyda Recinos MD [address] [place], [place] [address] Primary Staff Physician Cardiology 04/29/21 Jayjay Ortiz MD [address] [place] [address] Primary Staff Physician Cardiology 11/25/22 15, Pharmacist [address] [place] [address] Pharmacist Pharmacy 03/12/23 Motion Study Analyst Relationship Specialty Start Date End Date Kylah Palma PA-C [address] [place] [address] PCP - General Family Medicine 02/08/14 Oneyda Recinos MD [address] [place], [place] 464[address] Primary Staff Physician Cardiology 04/29/21 Jayjay Ortiz MD [address] [place], [place] [address] Primary Staff Physician Cardiology 11/25/22 15, Pharmacist [address] [place] [address] Pharmacist Pharmacy 03/12/23 Motion Study Analyst Relationship Specialty Start Date End Date Kylah Palma PA-C [address] [place] [address] PCP - General Family Medicine 02/08/14 Oneyda Recinos MD [address] [place] [address] Primary Staff Physician Cardiology 04/29/21 Jayjay Ortiz MD [address] [place], [place] 25[address] Primary Staff Physician Cardiology 11/25/22 15, Pharmacist [address] [place] [address] Pharmacist Pharmacy 03/12/23 Motion Study Analyst Relationship Specialty Start Date End Date Kylah Palma PA-C [address] [place] [address] PCP - General Family Medicine 02/08/14 Oneyda Recinos MD [address] [place] [address] Primary Staff Physician Cardiology 04/29/21 Jayjay Ortiz MD [address] [place] [address] Primary Staff Physician Cardiology 11/25/22 15, Pharmacist [address] [place] [address] Pharmacist Pharmacy 03/12/23 Motion Study Analyst Relationship Specialty Start Date End Date Kylah Palma PA-C [address] [place] [address] PCP - General Family Medicine 02/08/14 Oneyda Recinos MD [address] [place] [address] Primary Staff Physician Cardiology 04/29/21 Jayjay Ortiz MD [address] [place] [address] Primary Staff Physician Cardiology 11/25/22 15, Pharmacist [address] [place] [address] Pharmacist Pharmacy 03/12/23 Motion Study Analyst Relationship Specialty Start Date End Date Kylah Palma PA-C [address] [place] [address] PCP - General Family Medicine 02/08/14 Oneyda Recinos MD [address] [place] [address] Primary Staff Physician Cardiology 04/29/21 Jayjay Ortiz MD [address] [place] [address] Primary Staff Physician Cardiology 11/25/22 15, Pharmacist [address] [place] [address] Pharmacist Pharmacy 03/12/23 Motion Study Analyst Relationship Specialty Start Date End Date Kylah Palma PA-C [address] [place] [address] PCP - General Family Medicine 02/08/14 Oneyda Recinos MD [address] [place], [place] [address] Primary Staff Physician Cardiology 04/29/21 Motion Study Analyst Relationship Specialty Start Date End Date Kylah Palma PA-C [address] [place], [place] 631711 PCP - General Family Medicine 02/08/14 Oneyda Recinos MD [address] [place], [place] [address] Primary Staff Physician Cardiology 04/29/21 Motion Study Analyst Relationship Specialty Start Date End Date Kylah Palma PA-C [address] [place], [place] [address]6911 PCP - General Family Medicine 02/08/14 Oneyda Recinos MD [address] [place], [place] [address] Primary Staff Physician Cardiology 04/29/21 Jayjay Ortiz MD [address] [place], [place] 665[address]95 Primary Staff Physician Cardiology 11/25/22 Motion Study Analyst Relationship Specialty Start Date End Date Kylah Palma PA-C [address] [place], [place] 137061 PCP - General Family Medicine 02/08/14 Oneyda Recinos MD [address] [place], [place] [address] Primary Staff Physician Cardiology 04/29/21 Jayjay Ortiz MD [address] [place] [address] Primary Staff Physician Cardiology 11/25/22 15, Pharmacist [address] [place] [address] Pharmacist Pharmacy 03/12/23 Motion Study Analyst Relationship Specialty Start Date End Date Kylah Palma PA-C [address] [place] [address] PCP - General Family Medicine 02/08/14 Oneyda Recinos MD [address] [place] [address] Primary Staff Physician Cardiology 04/29/21 Jayjay Ortiz MD [address] [place] [address] Primary Staff Physician Cardiology 11/25/22 15, Pharmacist [address] [place] [address] Pharmacist Pharmacy 03/12/23 Motion Study Analyst Relationship Specialty Start Date End Date Kylah Palma PA-C [address] [place] [address] PCP - General Family Medicine 02/08/14 Oneyda Recinos MD [address] [place] [address] Primary Staff Physician Cardiology 04/29/21 Jayjay Ortiz MD [address] [place] [address] Primary Staff Physician Cardiology 11/25/22 15, Pharmacist [address] [place] [address] Pharmacist Pharmacy 03/12/23 Motion Study Analyst Relationship Specialty Start Date End Date Kylah Palma PA-C [address] [place] [address] PCP - General Family Medicine 02/08/14 Oneyda Recinos MD [address] [place] [address] Primary Staff Physician Cardiology 04/29/21 Jayjay Ortiz MD [address] [place] [address] Primary Staff Physician Cardiology 11/25/22 15, Pharmacist [address] [place] [address] Pharmacist Pharmacy 03/12/23 Motion Study Analyst Relationship Specialty Start Date End Date Kylah Palma PA-C [address] [place] [address] PCP - General Family Medicine 02/08/14 Oneyda Recinos MD [address] [place] [address] Primary Staff Physician Cardiology 04/29/21 Jayjay Ortiz MD [address] [place] [address] Primary Staff Physician Cardiology 11/25/22 15, Pharmacist [address] [place] [address] Pharmacist Pharmacy 03/12/23 Motion Study Analyst Relationship Specialty Start Date End Date Kylah Palma PA-C [address] [place] [address] PCP - General Family Medicine 02/08/14 Oneyda Recinos MD [address] [place] [address] Primary Staff Physician Cardiology 04/29/21 Jayjay Ortiz MD [address] [place] [address] Primary Staff Physician Cardiology 11/25/22 15, Pharmacist [address] [place], [place] [address] Pharmacist Pharmacy 03/12/23 Team Status: Inactive Member Role Status HALEY Boyle Primary Care Provider Active Dr. Bharath Chinchilla , DO Emergency Provider Active Motion Study Analyst Relationship Specialty Start Date End Date Kylah Palma PA-C [address] [place], [place] 330171 PCP - General Family Medicine 02/08/14 Oneyda Recinos MD [address] [place] [address] Primary Staff Physician Cardiology 04/29/21 Jayjay Ortiz MD [address] [place] [address] Primary Staff Physician Cardiology 11/25/22 15, Pharmacist [address] [place] [address] Pharmacist Pharmacy 03/12/23 Motion Study Analyst Relationship Specialty Start Date End Date Kylah Palma PA-C [address] [place], [place] 975491 PCP - General Family Medicine 02/08/14 Oneyda Recinos MD [address] [place] [address] Primary Staff Physician Cardiology 04/29/21 Jayjay Ortiz MD [address] [place] [address] Primary Staff Physician Cardiology 11/25/22 15, Pharmacist [address] [place] [address] Pharmacist Pharmacy 03/12/23 Motion Study Analyst Relationship Specialty Start Date End Date Kylah Palma PA-C [address] [place], [place] 532781 PCP - General Family Medicine 02/08/14 Oneyda Recinos MD [address] [place] [address] Primary Staff Physician Cardiology 04/29/21 Jayjay Ortiz MD [address] [place] [address] Primary Staff Physician Cardiology 11/25/22 15, Pharmacist [address] [place] [address] Pharmacist Pharmacy 03/12/23 ProviderJoyce MD Manager Product Support 03/03/24 03/17/24 Motion Study Analyst Relationship Specialty Start Date End Date Kylah Palma PA-C [address] [place] [address] PCP - General Family Medicine 02/08/14 Oneyda Recinos MD [address] [place] [address] Primary Staff Physician Cardiology 04/29/21 Jayjay Ortiz MD [address] [place] [address] Primary Staff Physician Cardiology 11/25/22 15, Pharmacist [address] [place] [address] Pharmacist Pharmacy 03/12/23 ProviderJoyce MD Manager Product Support 03/03/24 03/17/24 Motion Study Analyst Relationship Specialty Start Date End Date Kylah Palma PA-C [address] [place] [address] PCP - General Family Medicine 02/08/14 Oneyda Recinos MD [address] [place] [address] Primary Staff Physician Cardiology 04/29/21 Jayjay Ortiz MD [address] [place] [address] Primary Staff Physician Cardiology 11/25/22 15, Pharmacist [address] [place] [address] Pharmacist Pharmacy 03/12/23 Motion Study Analyst Relationship Specialty Start Date End Date Kylah Palma PA-C [address] [place] [address] PCP - General Family Medicine 02/08/14 Oneyda Recinos MD [address] [place] [address] Primary Staff Physician Cardiology 04/29/21 Jayjay Ortiz MD [address] [place] [address] Primary Staff Physician Cardiology 11/25/22 15, Pharmacist [address] [place] [address] Pharmacist Pharmacy 03/12/23 Motion Study Analyst Relationship Specialty Start Date End Date Kylah Palma PA-C [address] [place] [address] PCP - General Family Medicine 02/08/14 Oneyda Recinos MD [address] [place] [address] Primary Staff Physician Cardiology 04/29/21 Jayjay Ortiz MD [address] [place] [address] Primary Staff Physician Cardiology 11/25/22 15, Pharmacist [address] [place] [address] Pharmacist Pharmacy 03/12/23 Motion Study Analyst Relationship Specialty Start Date End Date Kylah Palma PA-C [address] [place] [address] PCP - General Family Medicine 02/08/14 Oneyda Recinos MD [address] [place] [address] Primary Staff Physician Cardiology 04/29/21 Jayjay Ortiz MD [address] [place], [place] [address] Primary Staff Physician Cardiology 11/25/22 15, Pharmacist [address] [place] [address] Pharmacist Pharmacy 03/12/23 Motion Study Analyst Relationship Specialty Start Date End Date Kylah Palma PA-C [address] [place] [address] PCP - General Family Medicine 02/08/14 Oneyda Recinos MD [address] [place] [address] Primary Staff Physician Cardiology 04/29/21 Jayjay Ortiz MD [address] [place] [address] Primary Staff Physician Cardiology 11/25/22 15, Pharmacist [address] [place] [address] Pharmacist Pharmacy 03/12/23 Motion Study Analyst Relationship Specialty Start Date End Date Kylah Palma PA-C [address] [place] [address] PCP - General Family Medicine 02/08/14 Oneyda Recinos MD [address] [place] [address] Primary Staff Physician Cardiology 04/29/21 Jayjay Ortiz MD [address] [place] [address] Primary Staff Physician Cardiology 11/25/22 15, Pharmacist [address] [place] [address] Pharmacist Pharmacy 03/12/23 Motion Study Analyst Relationship Specialty Start Date End Date Kylah Palma PA-C [address] [place] [address] PCP - General Family Medicine 02/08/14 Oneyda Recinos MD [address] [place] [address] Primary Staff Physician Cardiology 04/29/21 Jayjay Ortiz MD [address] [place] [address] Primary Staff Physician Cardiology 11/25/22 15, Pharmacist [address] [place] [address] Pharmacist Pharmacy 03/12/23 Motion Study Analyst Relationship Specialty Start Date End Date Kylah Palma PA-C [address] [place] [address] PCP - General Family Medicine 02/08/14 Oneyda Recinos MD [address] [place] [address] Primary Staff Physician Cardiology 04/29/21 Jayjay Ortiz MD [address] [place] [address] Primary Staff Physician Cardiology 11/25/22 15, Pharmacist [address] [place] [address] Pharmacist Pharmacy 03/12/23 Motion Study Analyst Relationship Specialty Start Date End Date Kylah Palma PA-C [address] [place] [address] PCP - General Family Medicine 02/08/14 Oneyda Recinos MD [address] [place] [address] Primary Staff Physician Cardiology 04/29/21 Jayjay Ortiz MD [address] [place] [address] Primary Staff Physician Cardiology 11/25/22 15, Pharmacist [address] [place] [address] Pharmacist Pharmacy 03/12/23 Motion Study Analyst Relationship Specialty Start Date End Date Kylah Palma PA-C [address] [place] [address] PCP - General Family Medicine 02/08/14 Oneyda Recinos MD [address] [place] [address] Primary Staff Physician Cardiology 04/29/21 Jayjay Ortiz MD [address] [place] [address] Primary Staff Physician Cardiology 11/25/22 15, Pharmacist [address] [place] [address] Pharmacist Pharmacy 03/12/23 Motion Study Analyst Relationship Specialty Start Date End Date Kylah Palma PA-C [address] [place] [address] PCP - General Family Medicine 02/08/14 Oneyda Recinos MD [address] [place] [address] Primary Staff Physician Cardiology 04/29/21 Jayjay Ortiz MD [address] [place] [address] Primary Staff Physician Cardiology 11/25/22 15, Pharmacist [address] [place] [address] Pharmacist Pharmacy 03/12/23 Motion Study Analyst Relationship Specialty Start Date End Date Kylah Palma PA-C [address] [place] [address] PCP - General Family Medicine 02/08/14 Oneyda Recinos MD [address] [place] [address] Primary Staff Physician Cardiology 04/29/21 Jayjay Ortiz MD [address] [place] [address] Primary Staff Physician Cardiology 11/25/22 15, Pharmacist [address] [place] [address] Pharmacist Pharmacy 03/12/23 Motion Study Analyst Relationship Specialty Start Date End Date Kylah Palma PA-C [address] [place] [address] PCP - General Family Medicine 02/08/14 Oneyda Recinos MD [address] [place], [place] [address]695 Primary Staff Physician Cardiology 04/29/21 Motion Study Analyst Relationship Specialty Start Date End Date Kylah Palma PA-C [address] [place] [address] PCP - General Family Medicine 02/08/14 Oneyda Recinos MD [address] [place] [address] Primary Staff Physician Cardiology 04/29/21 Jayjay Ortiz MD [address] [facility] [place] [address] Primary Staff Physician Cardiology 11/25/22 15, Pharmacist [address] [place] [address] Pharmacist Pharmacy 03/12/23 Motion Study Analyst Relationship Specialty Start Date End Date Kylah Palma PA-C [address] [place] [address] PCP - General Family Medicine 02/08/14 Motion Study Analyst Relationship Specialty Start Date End Date Kylah Palma PA-C [address] [place] [address] PCP - General Family Medicine 02/08/14 Oneyda Recinos MD [address] [place] [address] Primary Staff Physician Cardiology 04/29/21 Jayjay Ortiz MD [address] [place] [address] Primary Staff Physician Cardiology 11/25/22 15, Pharmacist [address] [place] [address] Pharmacist Pharmacy 03/12/23 Motion Study Analyst Relationship Specialty Start Date End Date Kylah Palma PA-C [address] [place] [address] PCP - General Family Medicine 02/08/14 Oneyda Recinos MD [address] [place] [address] Primary Staff Physician Cardiology 04/29/21 Jayjay Ortiz MD [address] [place] [address] Primary Staff Physician Cardiology 11/25/22 15, Pharmacist [address] [place] [address] Pharmacist Pharmacy 03/12/23 ProviderJoyce MD Manager Product Support 03/03/24 03/17/24 Motion Study Analyst Relationship Specialty Start Date End Date Kylah Palma PA-C [address] [place] [address] PCP - General Family Medicine 02/08/14 Oneyda Recinos MD [address] [place] [address] Primary Staff Physician Cardiology 04/29/21 Jayjay Ortiz MD [address] [place] [address] Primary Staff Physician Cardiology 11/25/22 15, Pharmacist [address] [place] [address] Pharmacist Pharmacy 03/12/23 Motion Study Analyst Relationship Specialty Start Date End Date Kylah Palma PA-C [address] [place] [address] PCP - General Family Medicine 02/08/14 Oneyda Recinos MD [address] [place] [address] Primary Staff Physician Cardiology 04/29/21 Jayjay Ortiz MD [address] [place] [address] Primary Staff Physician Cardiology 11/25/22 15, Pharmacist [address] [place] [address] Pharmacist Pharmacy 03/12/23 Motion Study Analyst Relationship Specialty Start Date End Date Edd Palma PA-C PCP - General Family Medicine 02/08/14 Oneyda Recinos MD [address] [place] [address] Primary Staff Physician Cardiology 04/29/21 Jayjay Ortiz MD [address] [place] [address] Primary Staff Physician Cardiology 11/25/22 15, Pharmacist [address] [place] [address] Pharmacist Pharmacy 03/12/23 Motion Study Analyst Relationship Specialty Start Date End Date Edd Palma PA-C PCP - General Family Medicine 02/08/14 Oneyda Recinos MD [address] [place] [address] Primary Staff Physician Cardiology 04/29/21 Jayjay Ortiz MD [address] [place] [address] Primary Staff Physician Cardiology 11/25/22 15, Pharmacist [address] [place] [address] Pharmacist Pharmacy 03/12/23 Motion Study Analyst Relationship Specialty Start Date End Date Edd Palma PA-C PCP - General Family Medicine 02/08/14 Oneyda Recinos MD [address] [place] [address] Primary Staff Physician Cardiology 04/29/21 Jayjay Ortiz MD [address] [place] [address] Primary Staff Physician Cardiology 11/25/22 15, Pharmacist [address] [place] [address] Pharmacist Pharmacy 03/12/23 Motion Study Analyst Relationship Specialty Start Date End Date Edd Palma PA-C PCP - General Family Medicine 02/08/14 Oneyda Recinos MD [address] [place] [address] Primary Staff Physician Cardiology 04/29/21 Jayjay Ortiz MD [address] [place] [address] Primary Staff Physician Cardiology 11/25/22 15, Pharmacist [address] [place] [address] Pharmacist Pharmacy 03/12/23 Radha Newby APRN.REGISTERED DIET TECHNICIAN [address] [place], [place] 405[address] Manager Product Support Family Medicine 09/09/24 Yissel Atkinson 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.REGISTERED DIET TECHNICIAN [address] [place] [address] Manager Product Support Family Medicine 09/09/24 Motion Study Analyst Relationship Specialty Start Date End Date Edd Palma PA-C PCP - General Family Medicine 02/08/14 Oneyda Recinos MD [address] [place] [address] Primary Staff Physician Cardiology 04/29/21 Jayjay Ortiz MD [address] [place] [address] Primary Staff Physician Cardiology 11/25/22 15, Pharmacist [address] [place] [address] Pharmacist Pharmacy 03/12/23 Radha Newby, 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.REGISTERED DIET TECHNICIAN [address] [place] [address] Manager Product Support Family Medicine 09/09/24 Yissel Atkinson 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.REGISTERED DIET TECHNICIAN [address] [place] [address] Manager Product Support [facility] 09/09/24 Motion Study Analyst Relationship Specialty Start Date End Date Edd Palma PA-C PCP - General Family Medicine 02/08/14 Oneyda Recinos MD [address] [place] [address] Primary Staff Physician Cardiology 04/29/21 Jayjay Ortiz MD [address] [place] [address] Primary Staff Physician Cardiology 11/25/22 15, Pharmacist [address] [place] [address] Pharmacist Pharmacy 03/12/23 Radha Newby, 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.REGISTERED DIET TECHNICIAN [address] [place] [address] Manager Product Support Family Medicine 09/09/24 Yissel Atkinson 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.REGISTERED DIET TECHNICIAN [address] [place] [address] Manager Product Support Family Medicine 09/09/24 Motion Study Analyst Relationship Specialty Start Date End Date Edd Palma PA-C PCP - General Family Medicine 02/08/14 Oneyda Recinos MD [address] [place] [address] Primary Staff Physician Cardiology 04/29/21 Jayjay Ortiz MD [address] [place] [address] Primary Staff Physician Cardiology 11/25/22 15, Pharmacist [address] [place] [address] Pharmacist Pharmacy 03/12/23 Radha Newby, 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.REGISTERED DIET TECHNICIAN [address] [place] [address] Manager Product Support Family Medicine 09/09/24 Yissel Atkinson 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.REGISTERED DIET TECHNICIAN [address] [place] [address] Manager Product Support Family [facility] 09/09/24 Motion Study Analyst Relationship Specialty Start Date End Date Edd Palma PA-C PCP - General Family Medicine 02/08/14 Oneyda Recinos MD [address] [place] [address] Primary Staff Physician Cardiology 04/29/21 Jayjay Ortiz MD [address] [facility] [place] [address] Primary Staff Physician Cardiology 11/25/22 15, Pharmacist [address] [place] [address] Pharmacist Pharmacy 03/12/23 Radha Newby APRN.REGISTERED DIET TECHNICIAN [address] [place], [place] [address] Formerly [facility] 09/09/24 Yissel Atkinson APRN.REGISTERED DIET TECHNICIAN [address] [place], [place] [address]0191 Formerly [facility] 09/09/24 Motion Study Analyst Relationship Specialty Start Date End Date Edd Palma PA-C PCP - General Family Medicine 02/08/14 Oneyda Recinos MD [address] [place] [address] Primary Staff Physician Cardiology 04/29/21 Jayjay Ortiz MD [address] [place] [address] Primary Staff Physician Cardiology 11/25/22 15, Pharmacist [address] [place] [address] Pharmacist Pharmacy 03/12/23 Radha Newby APRN.REGISTERED DIET TECHNICIAN [address] [place] [address] [facility] Family Medicine 09/09/24 Yissel Atkinson APRN.REGISTERED DIET TECHNICIAN [address] [place] [address] Manager Product Support Family Medicine 09/09/24 Motion Study Analyst Relationship Specialty Start Date End Date Edd Palma PA-C PCP - General Family Medicine 02/08/14 Oneyda Recinos MD [address] [place] [address] Primary Staff Physician Cardiology 04/29/21 Jayjay Oritz MD [address] [place], [place] 88694[address] Primary Staff Physician Cardiology 11/25/22 15, Pharmacist [address] [place] [address] Pharmacist Pharmacy 03/12/23 Radha Newby, 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.REGISTERED DIET TECHNICIAN [address] [place] [address] Manager Product Support Family Medicine 09/09/24 Yissel Atkinson, 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.REGISTERED DIET TECHNICIAN [address] [place] [address] Manager Product Support Family Medicine 09/09/24 Motion Study Analyst Relationship Specialty Start Date End Date Oneyda Recinos MD [address] [place] [address] Primary Staff Physician Cardiology 04/29/21 Jayjay Ortiz MD [address] [place] [address] Primary Staff Physician Cardiology 11/25/22 15, Pharmacist [address] [place] [address] Pharmacist Pharmacy 03/12/23 Radha Newby, 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.REGISTERED DIET TECHNICIAN [address] [place] [address] Manager Product Support Family Medicine 09/09/24 Yissel Atkinson 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.REGISTERED DIET TECHNICIAN [address] [place] [address] Manager Product Support Family Medicine 09/09/24 Motion Study Analyst Relationship Specialty Start Date End Date Oneyda Recinos MD [address] [place], [place] [address]7748[address] Primary Staff Physician Cardiology 04/29/21 Jayjay Ortiz MD [address] [place], [place] 9335595 Primary Staff Physician Cardiology 11/25/22 15, Pharmacist [address] [place] [address] Pharmacist Pharmacy 03/12/23 Radha Newby, 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.REGISTERED DIET TECHNICIAN [address] [place] [address] Manager Product Support Family Medicine 09/09/24 Yissel Atkinson, 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.REGISTERED DIET TECHNICIAN [address] [place] [address] Manager Product Support Family Medicine 09/09/24 Motion Study Analyst Relationship Specialty Start Date End Date Oneyda Recinos MD [address] [place], [place] [address]879195 Primary Staff Physician Cardiology 04/29/21 Jayjay Ortiz MD [address] [place] [address] Primary Staff Physician Cardiology 11/25/22 15, Pharmacist [address] [place] [address] Pharmacist Pharmacy 03/12/23 Radha Newby APRN.REGISTERED DIET TECHNICIAN [address] [place] [address] Manager Product Support Family Medicine 09/09/24 Yissel Atkinson APRN.REGISTERED DIET TECHNICIAN [address] [place] [address] Manager Product Support Family Medicine 09/09/24 Motion Study Analyst Relationship Specialty Start Date End Date Oneyda Recinos MD [address] [place] [address] Primary Staff Physician Cardiology 04/29/21 Jayjay Ortiz MD [address] [place] [address] Primary Staff Physician Cardiology 11/25/22 15, Pharmacist [address] [place] [address] Pharmacist Pharmacy 03/12/23 Radha Newby 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.REGISTERED DIET TECHNICIAN [address] [place] [address] Manager Product Support Family Medicine 09/09/24 Yissel Atkinson APRN.REGISTERED DIET TECHNICIAN [address] [place] [address] Manager Product Support Family Medicine 09/09/24 Motion Study Analyst Relationship Specialty Start Date End Date Oneyda Recinos MD [address] [place] [address] Primary Staff Physician Cardiology 04/29/21 Jayjay Ortiz MD [address] [place] [address] Primary Staff Physician Cardiology 11/25/22 15, Pharmacist [address] [place] [address] Pharmacist Pharmacy 03/12/23 Radha Newby APRN.REGISTERED DIET TECHNICIAN [address] [place] [address] Manager Product Support Family Medicine 09/09/24 Yissel Atkinson APRN.REGISTERED DIET TECHNICIAN [facility] [place] [address] Manager Product Support Family Medicine 09/09/24 Motion Study Analyst Relationship Specialty Start Date End Date Oneyda Recinos MD [address] [place] [address] Primary Staff Physician Cardiology 04/29/21 Jayjay Ortiz MD [address] [place] [address] Primary Staff Physician Cardiology 11/25/22 15, Pharmacist [address] [place] [address] Pharmacist Pharmacy 03/12/23 Radha Newby APRN.REGISTERED DIET TECHNICIAN [address] [place] [address] Manager Product Support Family Medicine 09/09/24 Yissel Atkinson APRN.REGISTERED DIET TECHNICIAN [address] [facility] [place] [address] Manager Product Support Family Medicine 09/09/24 Motion Study Analyst Relationship Specialty Start Date End Date Yissel Atkinson, 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.REGISTERED DIET TECHNICIAN [address] [place] [address] PCP - General Family Medicine 01/11/25 Oneyda Recinos MD [address] [place] [address] Primary Staff Physician Cardiology 04/29/21 Jayjay Ortiz MD [address] [place], [place] 9821795 Primary Staff Physician Cardiology 11/25/22 15, Pharmacist [facility] [place] [address] Pharmacist Pharmacy 03/12/23 Radha Newby, 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.REGISTERED DIET TECHNICIAN [address] [place] [address] Manager Product Support Family Medicine 09/09/24 Yissel Atkinson, 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.REGISTERED DIET TECHNICIAN [address] [place] [address] Manager Product Support Family Medicine 09/09/24 Tony Dimas MD [address] [place] [address] Ophthalmology 01/11/25 Motion Study Analyst Relationship Specialty Start Date End Date Yissel Atkinson, 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.REGISTERED DIET TECHNICIAN [address] [place] [address] PCP - General Family Medicine 01/11/25 Oneyda Recinos MD [address] [place], [place] [address]344795 Primary Staff Physician Cardiology 04/29/21 Jayjay Ortiz MD [address] [place] [place], [place] 1221495 Primary Staff Physician Cardiology 11/25/22 15, Pharmacist [address] [place] [address] Pharmacist Pharmacy 03/12/23 Radha Newby, 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.REGISTERED DIET TECHNICIAN [address] [place] [address] Manager Product Support Family Medicine 09/09/24 Yissel Atkinson, 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.REGISTERED DIET TECHNICIAN [address] [place] [address] Manager Product Support Family Medicine 09/09/24 Tony Dimas MD [address] [place] [address] Ophthalmology 01/11/25 Motion Study Analyst Relationship Specialty Start Date End Date Yissel Atkinson, 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.REGISTERED DIET TECHNICIAN [address] [place] [address] PCP - General Family Medicine 01/11/25 Oneyda Recinos MD [address] [facility] [place] [place] [address]287[address] Primary Staff Physician Cardiology 04/29/21 Jayjay Ortiz MD [address] [place] [address] Primary Staff Physician Cardiology 11/25/22 15, Pharmacist [address] [place] [address] Pharmacist Pharmacy 03/12/23 Radha Newby, 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.REGISTERED DIET TECHNICIAN [address] [place], [place] 877261 Manager Product Support Family [facility] 09/09/24 Yissel Atkinson 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.REGISTERED DIET TECHNICIAN [address] [place], [place] [address] Formerly [facility] 09/09/24 Tony Dimas MD [address] [place], [place] 472551 Ophthalmology 01/11/25 Motion Study Analyst Relationship Specialty Start Date End Date Yissel Atkinson 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.REGISTERED DIET TECHNICIAN [address] [place] [address] PCP - General Family Medicine 01/11/25 Oneyda Recinos MD [address] [place], [place] 2096495 Primary Staff Physician Cardiology 04/29/21 Jayjay Ortiz MD [address] [place], [place] 1487995 Primary Staff Physician Cardiology 11/25/22 15, Pharmacist [address] [place] [address] Pharmacist Pharmacy 03/12/23 Radha Newby, 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.REGISTERED DIET TECHNICIAN [address] [place] [address] Formerly [facility] 09/09/24 Yissel Atkinson 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.REGISTERED DIET TECHNICIAN [address] [place], [place] 345631 Formerly [facility] 09/09/24 Tony Dimas MD [address] [place] [address] Ophthalmology 01/11/25 Team Status: Active Member Role Status Dates MARLEN Cedeno Primary Care Provider Active Team Status: Inactive Member Role Status Dates Dr. Enriqueta Duffy , Emergency Provider Active S tart: February 08, 2025 End: February 08, 2025 MARELN Cedeno Primary Care Provider Active Start: February 08, 2025 End: February 08, 2025 Motion Study Analyst Relationship Specialty Start Date End Date Yissel Atkinson APRN.REGISTERED DIET TECHNICIAN [address] [place] [address] PCP - General Family Medicine 01/11/25 Oneyda Recinos MD [address] [place], [place] 1134095 Primary Staff Physician Cardiology 04/29/21 Jayjay Ortiz MD [address] [place], [place] 3335695 Primary Staff Physician Cardiology 11/25/22 15, Pharmacist [address] [place], [place] 545842 Pharmacist Pharmacy 03/12/23 Radha Newby, 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.REGISTERED DIET TECHNICIAN [address] [place] [address] Formerly [facility] 09/09/24 Yissel Atkinson 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.REGISTERED DIET TECHNICIAN [address] [place] [address] Manager Product Support Family Medicine 09/09/24 Tony Dimas MD [address] [place] [address] Ophthalmology 01/11/25 Motion Study Analyst Relationship Specialty Start Date End Date Yissel Atkinson, 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.REGISTERED DIET TECHNICIAN [address] [place] [address] PCP - General Family Medicine 01/11/25 Oneyda Recinos MD [address] [place], [place] 8205995 Primary Staff Physician Cardiology 04/29/21 Jayjay Ortiz MD [address] [place], [place] 3551695 Primary Staff Physician Cardiology 11/25/22 15, Pharmacist [address] [place] [address] Pharmacist Pharmacy 03/12/23 Radha Newby, 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.REGISTERED DIET TECHNICIAN [address] [place] [address] Manager Product Support Family Medicine 09/09/24 Yissel Atkinson, 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.REGISTERED DIET TECHNICIAN [address] [place], [place] 259111 Manager Product Support Family Medicine 09/09/24 Tony Dimas MD [address] [place], [place] 528021 Ophthalmology 01/11/25 Motion Study Analyst Relationship Specialty Start Date End Date Suppan, Yissel A, 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.REGISTERED DIET TECHNICIAN [address] [place] [address] PCP - General Family Medicine 01/11/25 Oneyda Recinos MD [address] [place] [address] Primary Staff Physician Cardiology 04/29/21 Jayjay Ortiz MD [address] [place], [place] 29836[address] Primary Staff Physician Cardiology 11/25/22 15, Pharmacist [facility] [place] [address] Pharmacist Pharmacy 03/12/23 Radha Newby, 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.REGISTERED DIET TECHNICIAN [address] [place] [address] Manager Product Support Family Medicine 09/09/24 Yissel Atkinson, 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.REGISTERED DIET TECHNICIAN [address] [place] [address] Manager Product Support Family Medicine 09/09/24 Tony Dimas MD [address] [place] [address] Ophthalmology 01/11/25 Motion Study Analyst Relationship Specialty Start Date End Date Yissel Atkinson, 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.REGISTERED DIET TECHNICIAN [address] [place], [place] 109401 PCP - General Family Medicine 01/11/25 Oneyda Recinos MD [address] [place], [place] 0337395 Primary Staff Physician Cardiology 04/29/21 Jayjay Ortiz MD [address] [place], [place] 7505095 Primary Staff Physician Cardiology 11/25/22 15, Pharmacist [address] [place] [address] Pharmacist Pharmacy 03/12/23 Radha Newby, 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.REGISTERED DIET TECHNICIAN [address] [place] [address] Manager Product Support Family Medicine 09/09/24 Yissel Atkinson, 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.REGISTERED DIET TECHNICIAN [address] [place] [address] Manager Product Support Family Medicine 09/09/24 Tony Dimas MD [address] [place] [address] Ophthalmology 01/11/25 Motion Study Analyst Relationship Specialty Start Date End Date Yissel Atkinson, 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.REGISTERED DIET TECHNICIAN [address] [place] [address] PCP - General Family Medicine 01/11/25 Oneyda Recinos MD [address] [place] [address] Primary Staff Physician Cardiology 04/29/21 Jayjay Ortiz MD [address] [place] [address] Primary Staff Physician Cardiology 11/25/22 15, Pharmacist [address] [place] [address] Pharmacist Pharmacy 03/12/23 Radha Newby, PRAFUL.REGISTERED DIET TECHNICIAN [address] [place] [address] Formerly [facility] 09/09/24 Yissel Atkinson APRN.REGISTERED DIET TECHNICIAN [address] [place], [place] [address]6431 Formerly [facility] 09/09/24 Tony Dimas MD [address] [place], [place] 809061 Ophthalmology 01/11/25 Motion Study Analyst Relationship Specialty Start Date End Date Yissel Atkinson APRN.REGISTERED DIET TECHNICIAN [address] [place], [place] 949911 PCP - General Family Medicine 01/11/25 Oneyda Recinos MD [address] [place], [place] 3444895 Primary Staff Physician Cardiology 04/29/21 Jayjay Ortiz MD [address] [place], [place] 4241895 Primary Staff Physician Cardiology 11/25/22 15, Pharmacist [address] [place] [address] Pharmacist Pharmacy 03/12/23 Radha Newby APRN.REGISTERED DIET TECHNICIAN [address] [place] [address] Formerly [facility] 09/09/24 Yissel Atkinson 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.REGISTERED DIET TECHNICIAN [address] [place], [place] 071231 Manager Product Support Family Medicine 09/09/24 oTny Dimas MD [address] [place], [place] [address]23171 Ophthalmology 01/11/25 Motion Study Analyst Relationship Specialty Start Date End Date Yissel Atkinson 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.REGISTERED DIET TECHNICIAN [address] [place] [address] PCP - General Family Medicine 01/11/25 Oneyda Recinos MD [address] [place], [place] [id number] Primary Staff Physician Cardiology 04/29/21 Jayjay Ortiz MD [address] [place], [place] [id number] Primary Staff Physician Cardiology 11/25/22 15, Pharmacist [address] [place] [address] Pharmacist Pharmacy 03/12/23 Radha Newby APRN.REGISTERED DIET TECHNICIAN [address] [place] [address] Manager Product Support Family Medicine 09/09/24 Yissel Atkinson 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.REGISTERED DIET TECHNICIAN [address] [place] [address] Manager Product Support Family Medicine 09/09/24 Tony Dimas MD [address] [place] [address] Ophthalmology 01/11/25 Motion Study Analyst Relationship Specialty Start Date End Date Yissel Atkinson 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.REGISTERED DIET TECHNICIAN [address] [place] [address] PCP - General Family Medicine 01/11/25 Oneyda Recinos MD [address] [place] [address] Primary Staff Physician Cardiology 04/29/21 Jayjay Ortiz MD [address] [place], [place] [id number] Primary Staff Physician Cardiology 11/25/22 15, Pharmacist [address] [place] [address] Pharmacist Pharmacy 03/12/23 Rahda Newby, 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.REGISTERED DIET TECHNICIAN [address] [place] [address] Manager Product Support Family Medicine 09/09/24 Yissel Atkinson, 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.REGISTERED DIET TECHNICIAN [address] [place] [address] Manager Product Support Family Medicine 09/09/24 Tony Dimas MD [address] [place], [place] [address]201 Ophthalmology 01/11/25 Motion Study Analyst Relationship Specialty Start Date End Date Yissel Atkinson, 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.REGISTERED DIET TECHNICIAN [address] [place] [address] PCP - General Family Medicine 01/11/25 Oneyda Recinos MD [address] [place] [address] Primary Staff Physician Cardiology 04/29/21 Jayjay Ortiz MD [address] [place], [place] [id number] Primary Staff Physician Cardiology 11/25/22 15, Pharmacist [address] [place] [address] Pharmacist Pharmacy 03/12/23 Radha Newby APRN.REGISTERED DIET TECHNICIAN [address] [place] [address] Manager Product Support Family Medicine 09/09/24 Yissel Atkinson APRN.REGISTERED DIET TECHNICIAN [address] [place] [address] Manager Product Support Family [facility] 09/09/24 Tony Dimas MD [address] [place] [address] Ophthalmology 01/11/25 Motion Study Analyst Relationship Specialty Start Date End Date Yissel Atkinson APRN.REGISTERED DIET TECHNICIAN [address] [place] [address] PCP - General Family Medicine 01/11/25 Oneyda Recinos MD [address] [place] [address] Primary Staff Physician Cardiology 04/29/21 Jayjay Ortiz MD [address] [place], [place] [id number] Primary Staff Physician Cardiology 11/25/22 15, Pharmacist [address] [place] [address] Pharmacist Pharmacy 03/12/23 Radha Newby, 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.REGISTERED DIET TECHNICIAN [address] [place] [address] Manager Product Support Family Medicine 09/09/24 Yissel Atkinson 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.REGISTERED DIET TECHNICIAN [address] [place] [address] Manager Product Support Family Medicine 09/09/24 Tony Dimas MD [address] [place] [address] Ophthalmology 01/11/25 Motion Study Analyst Relationship Specialty Start Date End Date Yissel Atkinson 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.REGISTERED DIET TECHNICIAN [address] [place] [address] PCP - General Family Medicine 01/11/25 Oneyda Recinos MD [address] [place] [address] Primary Staff Physician Cardiology 04/29/21 Jayjay Ortiz MD [address] [place] [address] Primary Staff Physician Cardiology 11/25/22 15, Pharmacist [address] [place] [address] Pharmacist Pharmacy 03/12/23 Radha Newby, 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.REGISTERED DIET TECHNICIAN [address] [place] [address] Manager Product Support Family [facility] 09/09/24 Yissel Atkinson, 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.REGISTERED DIET TECHNICIAN [address] [place] [address] Manager Product Support Family Medicine 09/09/24 Tony Dimas MD [address] [place], [place] [address]81 Ophthalmology 01/11/25 Motion Study Analyst Relationship Specialty Start Date End Date Yissel Atkinson, 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.REGISTERED DIET TECHNICIAN [address] [place] [address] PCP - General Family Medicine 01/11/25 Oneyda Recinos MD [address] [place] [address] Primary Staff Physician Cardiology 04/29/21 Jayjay Ortiz MD [address] [place], [place] 27[address] Primary Staff Physician Cardiology 11/25/22 15, Pharmacist [address] [place] [address] Pharmacist Pharmacy 03/12/23 Radha Newby, 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.REGISTERED DIET TECHNICIAN [address] [place] [address] Manager Product Support Family Medicine 09/09/24 Yissel Atkinson, 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.REGISTERED DIET TECHNICIAN [address] [place] [address] Manager Product Support Family Medicine 09/09/24 Tony Dimas MD [address] [place], [place] [address] Ophthalmology 01/11/25 Motion Study Analyst Relationship Specialty Start Date End Date Yissel Atkinson, 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.REGISTERED DIET TECHNICIAN [address] [place] [address] PCP - General Family Medicine 01/11/25 Oneyda Recinos MD [address] [place], [place] [address] Primary Staff Physician Cardiology 04/29/21 Jayjay Ortiz MD [address] [place] [address] Primary Staff Physician Cardiology 11/25/22 15, Pharmacist [address] [place] [address] Pharmacist Pharmacy 03/12/23 Radha Newby, 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.REGISTERED DIET TECHNICIAN [address] [place] [address] Manager Product Support Family Medicine 09/09/24 Yissel Atkinson, 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.REGISTERED DIET TECHNICIAN [address] [place] [address] Manager Product Support Family Medicine 09/09/24 Tony Dimas MD [address] [place] [address] Ophthalmology 01/11/25 Motion Study Analyst Relationship Specialty Start Date End Date Yissel Atkinson, 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.REGISTERED DIET TECHNICIAN [address] [place] [address] PCP - General Family Medicine 01/11/25 Oneyda Recinos MD [address] [place], [place] [id number] Primary Staff Physician Cardiology 04/29/21 Jayjay Ortiz MD [address] [place] [address] Primary Staff Physician Cardiology 11/25/22 15, Pharmacist [address] [place] [address] Pharmacist Pharmacy 03/12/23 Radha Newby, PRAFUL.REGISTERED DIET TECHNICIAN [address] [place], [place] [address] Manager Product Support Family [facility] 09/09/24 Yissel Atkinson 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.REGISTERED DIET TECHNICIAN [address] [place], [place] [address] [facility] 09/09/24 Tony Dimas MD [address] [place], [place] [address]381 Ophthalmology 01/11/25 Motion Study Analyst Relationship Specialty Start Date End Date Yissel Atkinson 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.REGISTERED DIET TECHNICIAN [address] [place], [place] [address] PCP - General Family Medicine 01/11/25 Oneyda Recinos MD [address] [place], [place] [id number] Primary Staff Physician Cardiology 04/29/21 Jayjay Ortiz MD [address] [place], [place] [address] Primary Staff Physician Cardiology 11/25/22 15, Pharmacist [address] [place] [address] Pharmacist Pharmacy 03/12/23 Radha Newby, 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.REGISTERED DIET TECHNICIAN [address] [place], [place] [address] Manager Product Support Family [facility] 09/09/24 Yissel Atkinson APRN.REGISTERED DIET TECHNICIAN [address] [place], [place] [address]91 Manager Product Support [facility] 09/09/24 Tony Dimas MD [address] [place], [place] [address] Ophthalmology 01/11/25 Motion Study Analyst Relationship Specialty Start Date End Date Yissel Atkinson APRN.REGISTERED DIET TECHNICIAN [address] [place], [place] [address]261 PCP - General Family Medicine 01/11/25 Oneyda Recinos MD [address] [place] [address] Primary Staff Physician Cardiology 04/29/21 Jayjay Ortiz MD [address] [place] [address] Primary Staff Physician Cardiology 11/25/22 15, Pharmacist [address] [place] [address] Pharmacist Pharmacy 03/12/23 Yissel Atkinson APRN.REGISTERED DIET TECHNICIAN [address] [place], [place] [address] Manager Product Support [facility] 09/09/24 Tony Dimas MD [address] [place], [place] [address] Ophthalmology 01/11/25 Goals (unrecognized section and content) Goals may be documented in a n alternate sectionGoals may be documented in an alternate sectionGoals may be documented in an alternate sectionGoals may be documented in an alternate sectionGoals may be documented in an alternate sectionGoals may be documented in an alternate sectionGoals may be documented in an alternate sectionGoals may be documented in an alternate section INFORMATION SOURCE (unrecogn ized section and content) DATE CREATED AUTHOR 06/13/2022 [facility] DATE CREATED AUTHOR AUTHOR'S ORGANIZ ATION 02/15/2025 [facility] [place] DATE CREATED AUTHOR AUTHOR'S ORGANIZ ATION 03/12/2025 [facility] DATE CREATED AUTHOR AUTHOR'S ORGANIZ ATION 08/08/2025 [facility] FOR RECORDS PERTAINING TO PATIENTS WHO ARE OR HAVE BEEN ENROLLED IN A CHEMICAL DEPENDENCY/SUBSTANCEABUSE PROGRAM, SOME INFORMATION MAY BE OMITTED. This clinical summary was aggregated from multiple sources. Caution should be exercised in using it in the provision of clinical care. This summary normalizes information from multiple sources, and as a consequence, information in this document may materially change the coding, format and clinical context of patient data. In addition, data may be omitted in some cases. CLINICAL DECISIONS SHOULD BE BASED ON THE PRIMARY CLINICAL RECORDS. [facility]. provides no warranty or guarantee of the accuracy or completeness of information in this document.
--- NOTE | 2025-08-13 20:43 | EKG12_ITS ---
Test Reason : SOB Blood Pressure : */* mmHG Vent. Rate : 74 BPM Atrial Rate : 74 BPM P-R Int : 154 ms QRS Dur : 124 ms QT Int : 424 ms P-R-T Axes : 64 15 122 degrees QTcB Int : 470 ms Normal sinus rhythm Left bundle branch block Abnormal ECG Confirmed by Harry Berrios ([id number]), news videotape editor LUTHER VIDAL ([id number]) on 08/14/2025 10:30:23 AM Referred By: Confirmed By: Harry Berrios
--- NOTE | 2025-08-13 20:47 | EX.ED.DYSGE1 ---
HPI History of Present Illness Chief Complaint: Shortness of Breath Informant: patient Onset/Context/Timing Onset: Yesterday Context: Sudden Onset Timing: Continuous Worsened by: Nothing Relieved by: Nothing Narrative Narrative: Patient presents with shortness of breath and nausea and vomiting that began yesterday. Patient states it began rather suddenly. Patient states it has been constant. Patient states nothing makes her breathing worse and nothing makes it better. Patient denies any hematemesis or coffee-ground emesis. Patient denies any diarrhea, melena, or hematochezia. Patient denies any dysuria, frequency, or hematuria. Patient denies any chest pain or cough. Patient denies any fevers or chills. [facility] Medical History HOCM (hypertrophic obstructive cardiomyopathy) Presence of combination internal cardiac defibrillator (ICD) and pacemaker Atrial flutter Afib Fatigue Borderline diabetes Heart disease Shortness of breath Home Medications Medication Instructions Recorded Last Taken Type metoprolol tartrate 25 mg tablet 37.5 mg PO BID 02/21/14 12/16/19 History sotalol 120 mg tablet 120 mg PO BID 06/12/21 Unknown History multivitamin with iron 1 tab PO DAILY 05/03/23 Unknown History warfarin 2.5 mg tablet (Jantoven) 5 mg PO MOWETHSA 05/03/23 Unknown History warfarin 5 mg tablet 2.5 mg PO SUTUFR 05/03/23 Unknown History doxycycline hyclate 100 mg tablet 50 mg PO BID 01/18/24 Unknown History lansoprazole 30 mg capsule,delayed 30 mg PO DAILY #14 caps 02/08/25 Unknown Rx release (Prevacid) metoclopramide HCl 10 mg tablet 10 mg PO 4X/DAY PRN Headache #20 02/08/25 Unknown Rx tabs ondansetron 4 mg disintegrating 4 mg PO Q8H PRN PRN Nausea #10 tabs 08/13/25 Unknown Rx tablet Allergy/AdvReac Type Severity Reaction Status Date / Time metformin AdvReac Nausea/Vom/ Verified 08/13/25 19:26 Diarrhea NSAIDS (Non-Steroidal AdvReac Other Verified 08/13/25 19:26 Anti-Inflamma Family History Mother Diabetes Hypertension Father CVA (cerebral vascular accident) Surgical History S/P gastric bypass H/O cardiac radiofrequency ablation Hx of tympanostomy tubes History of heart surgery Social History Smoking Status: Never smoker alcohol intake: never ROS ROS ED Constitutional Constitutional ED: Denies chills or fever(s) Eyes Eyes: Denies blurry vision or change in vision ENT ENT ED: Denies rhinorrhea or sore throat Cardiovascular Cardiovascular: Denies chest pain or palpitations Respiratory/Chest Respiratory/Chest: Reports dyspnea; Denies cough Gastrointestinal Gastrointestinal: Reports nausea and vomiting Genitourinary Genitourinary ED: Denies dysuria or hematuria Musculoskeletal Musculoskeletal: Reports back pain; Denies neck pain Integumentary Denies abscess or rash Neurologic Neurologic: Reports headache(s); Denies weakness Allergic/Immunologic Allergic/Immunologic ED: Denies mouth swelling or urticaria EXAM Physical Exam Const Vital Signs: 08/13/25 19:26 08/13/25 19:39 08/13/25 21:16 Temperature 96.9 F L Temperature Source Temporal Pulse Rate 98 Pulse Rate [Lying] 57 L Pulse Rate [Sitting (for 1 minute prior to obtaining)] 66 Pulse Rate [Standing (for 1 minute prior to obtaining)] 73 Respiratory Rate 16 Respiratory Effort Normal Respiratory Depth Normal Respiratory Pattern Normal Blood Pressure 125/87 H Blood Pressure [Lying] 112/78 Blood Pressure [Sitting (for 1 minute prior to obtaining)] 114/75 Blood Pressure [Standing (for 1 minute prior to obtaining)] 108/82 H Blood Pressure Mean 99 Blood Pressure Mean [Lying] 89 Blood Pressure Mean [Sitting (for 1 minute prior to obtaining)] 88 Blood Pressure Mean [Standing (for 1 minute prior to obtaining)] 90 Pulse Ox 100 Oxygen Delivery Method Room Air Room Air 08/13/25 21:26 08/13/25 23:05 08/13/25 23:12 Temperature 96.9 F L Temperature Source Pulse Rate 55 L 63 63 Pulse Rate [Lying] Pulse Rate [Sitting (for 1 minute prior to obtaining)] Pulse Rate [Standing (for 1 minute prior to obtaining)] Respiratory Rate 11 L 16 16 Respiratory Effort Respiratory Depth Respiratory Pattern Blood Pressure 114/78 100/65 100/65 Blood Pressure [Lying] Blood Pressure [Sitting (for 1 minute prior to obtaining)] Blood Pressure [Standing (for 1 minute prior to obtaining)] Blood Pressure Mean 90 76 76 Blood Pressure Mean [Lying] Blood Pressure Mean [Sitting (for 1 minute prior to obtaining)] Blood Pressure Mean [Standing (for 1 minute prior to obtaining)] Pulse Ox 99 100 100 Oxygen Delivery Method Room Air Positive well nourished and well developed General Appearance ED: well developed and NAD HEENT Reports moist mucous membranes Neck supple and no JVD Chest Wall palpation of chest normal Resp normal respiratory effort and clear to auscultation bilaterally Cardio regular rate and regular rhythm GI non-tender and non-distended Palpation: soft Extremity normal to inspection General Extremety ED: Negative for edema or tenderness General Extremity: Negative for edema Neuro oriented x3, CN's II-XII intact bilaterally and no sensory deficits noted Sensorium / Orientation: alert Motor Exam: strength 5/5 throughout Psych mental status grossly normal MDM MDM MDM Narrative Medical decision making narrative: Differential diagnose includes viral illness, pneumonia, bronchitis, dehydration, electrolyte abnormality, pancreatitis, , and anxiety. EKG will be obtained to assess for cardiac dysrhythmia and cardiac ischemia. Chest x-ray will be obtained to assess for pneumonia or bronchitis. CBC will be obtained to assess for leukocytosis and anemia. Comprehensive metabolic profile will be obtained to assess for hepatic function, renal function, and electrolyte abnormality. Lipase will be obtained to assess for pancreatitis. Urinalysis will be obtained to assess for urinary tract infection and hematuria. Serum hCG will be obtained to assess for . History & Record Review Additional record(s) reviewed:: Prior outpatient record, Prior ED visit and Prior labs Lab Data Attestation: I reviewed the patient's lab results. Lab results narrative: CBC was reviewed. There is a mild anemia with a hemoglobin of 10.5 and hematocrit 33.3. These are consistent with previous results. Comprehensive metabolic profile was reviewed and was essentially within normal limits. Lipase was reviewed and was normal at 40. Serum hCG was reviewed and was negative. Urinalysis was reviewed. Urine ketones were 150. Leukocyte esterase was 100. There are 10-25 white blood cells. There are 25-50 epithelial cells and 4+ bacteria. Labs: Laboratory Results - last 24 hr 08/13/25 21:10 WBC 7.8 RBC 4.03 L Hgb 10.5 L Hct 32.3 L MCV 80.1 L MCH 26.1 L MCHC 32.5 RDW Std Deviation 43.7 RDW Coeff of Ramesh 15.0 H Plt Count 272 MPV 11.4 Immature Gran % (Auto) 0.300 Neut % (Auto) 66.2 Lymph % (Auto) 25.2 Archuleta % (Auto) 6.5 Eos % (Auto) 0.8 Baso % (Auto) 1.0 Absolute Neuts (auto) 5.2 Absolute Lymphs (auto) 1.97 Nucleated RBC % 0 Sodium 139 Potassium 3.6 Chloride 107 Carbon Dioxide 22.9 Anion Gap 9 BUN 19 Creatinine 0.70 Estim Creat Clear Calc 102.38 Est GFR (MDRD) Non-Af 109 BUN/Creatinine Ratio 27.4 H Glucose 105 H Calcium 8.5 Total Bilirubin 0.70 AST 21 ALT 10 Alkaline Phosphatase 54 Total Protein 6.1 Albumin 3.8 Globulin 2.3 Albumin/Globulin Ratio 1.6 Lipase 40 Serum , Qual NEGATIVE Urine Color Yellow Urine Clarity Cloudy Urine pH 6.0 Ur Specific [place] 1.030 Urine Protein 100 H Urine Glucose (UA) Normal Urine Ketones 150 A* Urine Occult Blood 10 H Urine Nitrite Negative Urine Bilirubin 1 H Urine Urobilinogen 1 H Ur Leukocyte Esterase 100 H Urine RBC 0-5 SEEN Urine WBC 10-25 SEEN Ur Squamous Epith Cells 25-50 SEEN Urine Bacteria 4+ Hyaline Casts 0-5 SEEN Urine Mucus 2+ Radiography Chest X-Ray - ED: 2 View, Read by ED Physician, Read by Radiologist and No Acute Disease Diagnostic Testing: Clinical Impression(s) from Imaging Studies Chest X-Ray 08/13/25 20:54 IMPRESSION: No evidence of acute cardiopulmonary disease. Reading Location: [facility] and lateral chest x-ray was obtained. There are 2 views. On my independent interpretation, lung he are clear. There is normal cardiac silhouette. Bony thorax is normal. There is no acute process noted. Radiologist also interpreted the x-ray and agrees. EKG Initial EKG: Attestation: I personally reviewed and interpreted this EKG as follows: Interpretation: Sinus Rhythm (74), LBBB and Non-Specific ST Changes Comments: EKG was obtained. On my independent interpretation, it shows normal sinus rhythm with a rate of 74. IL interval was normal at 154 ms. QRS interval was slightly prolonged at 124 ms. QTc interval is normal at 470 ms. Warren was normal. There is a left bundle branch block pattern noted. There are no acute ST or T wave changes noted. Prior EKG tracings: available for review Prior: Unchanged (01/18/2024) Treatment and Re-Evaluation :: Patient was given IV fluids and Zofran. Patient was feeling better on reevaluation. Patient was advised of her findings. Patient was given a prescription for Zofran. Patient was instructed to drink plenty of fluids. Patient was instructed to follow-up with her primary care physician in 5 to 7 days. Patient understood and was agreeable with the plan. All questions were answered. Discharge Plan Triage Chief Complaint: Shortness of Breath ED Provider: Stephen Sanders Dx/Rx/DC Orders Clinical Impression: Nausea and vomiting, Dyspnea Instructions: ED Dyspnea, ED Vomiting (Adult) Prescriptions: New ondansetron 4 mg tablet,disintegrating 4 mg PO Q8H PRN PRN (Reason: Nausea) Qty: 10 0RF No Action metoprolol tartrate 25 MG tablet 37.5 mg PO BID sotalol 120 mg Tablet 120 mg PO BID multivitamin with iron Tablet 1 tab PO DAILY warfarin [Jantoven] 2.5 mg tablet 5 mg PO MOWETHSA warfarin 5 mg tablet 2.5 mg PO SUTUFR Patient Comments: Take 1 tablet by mouth once daily. Or as directed by anticoagulation clinic. doxycycline hyclate 100 mg tablet 50 mg PO BID metoclopramide HCl 10 mg tablet 10 mg PO 4X/DAY PRN (Reason: Headache) Qty: 20 0RF lansoprazole [Prevacid] 30 mg capsule,delayed release(DR/EC) 30 mg PO DAILY Qty: 14 0RF Primary Care Provider: Yissel Marcial Referrals: Yissel Marcial, PRESCHOOL ASSISTANT [Primary Care Provider, Family Practice] - 5-7 Days Print Language: Kyrgyz Disposition Disposition: Home, Self Care Discharge Date/Time: 08/13/25 23:13
--- NOTE | 2025-08-13 20:54 | RAD_ITS ---
PROCEDURE: CHEST PA AND LATERAL 08/13/2025 REASON FOR EXAM: DYSPNEA TECHNIQUE: Procedure Code: RADCXR Modality: DX Procedure: CHEST PA AND LATERAL COMPARISON: 03/07/2023 FINDINGS: Lungs/Pleura: Clear. No pneumothorax or pleural effusion appreciated. Heart/Mediastinum: Normal in size. Left chest wall subcutaneous ICD. Left atrial appendage clip. Bones/Soft tissues: Minimal degenerative changes of the spine. Sternotomy wires. Epigastric chain suture material and right upper abdominal surgical clips. RAD/Chest PA and Lateral IMPRESSION: No evidence of acute cardiopulmonary disease. Reading Location: [id number]
[2025-08-13] MEDS: 0.9% Normal Saline (1000mL) 1,000 ML 1000 ML IV (21:09)
[2025-08-13 21:16] VITALS: BP 108/82; BP 112/78; BP 114/75; PULSE 57; PULSE 66; PULSE 73
[2025-08-13 21:26] VITALS: BP 114/78; PULSE 55; RESP 11; O2SAT 99
[2025-08-13 21:28] LABS: Internal QC Validated? YES +Cl - CLEAR BKGD; Pregnancy, Serum, hCG Quali. NEGATIVE Negative; Record Kit Lot#, Serum Preg. 980607
[2025-08-13 21:29] LABS: Color, Urine Yellow (Yellow); Glucose, Dipstick Normal (Normal); Leukocyte Esterase-Dipstick 100 /ul (Negative); Nitrite-Dipstick Negative (Negative); Occult Blood-Urine 10 /ul (Negative); Protein-Dipstick 100 mg/dl (Negative); Specific Gravity, Urine 1.030 (1.002-1.030); Urine Bilirubin Dipstick 1 mg/dL (Negative)
[2025-08-13 21:31] LABS: Ketone-Dipstick 150 mg/dl (Negative)
[2025-08-13 21:35] LABS: Mucous, Urine 2+ /hpf (<or=2+); Red Blood Cells-Urine 0-5 SEEN /hpf (0-5); Squamous Epithelial Cells - UA 25-50 SEEN /hpf (5-10)
[2025-08-13 21:38] LABS: Hematocrit 32.3 % (37-47); Hemoglobin 10.5 g/dL (12.0-15.0); Immature Granulocytes Count 0.020 X10^3/uL (0.0-0.0); Mean Corp Hgb Conc 32.5 g/dL (32-36); Mean Corpuscular Volume 80.1 fL (81-99); Mean Platelet Vol. 11.4 fl (6.2-12.0); NRBC Flagged by Analyzer 0 % (0-5); Platelet Count 272 K/mm3 (150-450); RBC Distribution Width CV 15.0 % (11.6-14.6); RBC Distribution Width SD 43.7 fl (35.1-43.9); Red Blood Count 4.03 M/mm3 (4.2-5.4); White Blood Count 7.8 K/mm3 (4.4-11.0)
[2025-08-13 21:39] LABS: AST(SGOT) 21 U/L (<=31); Alanine Aminotransfer ALT/SGPT 10 U/L (<=34); Albumin, Serum 3.8 g/dL (3.5-5.0); Alkaline Phosphatase 54 U/L (35-104); Anion Gap 9 (5-15); BUN 19 mg/dL (4-19); BUN/Creat Ratio 27.4 RATIO (10-20); Calcium,Total 8.5 mg/dL (7.6-11.0); Carbon Dioxide 22.9 mmol/L (21.0-32.0); Chloride 107 mmol/L (98-108); Estimated Creatinine Clearance 102.38 ml/min (50-250); Globulin 2.3 g/dL (2.2-4.2); Glucose 105 mg/dL (70-99); Lipase 40 U/L (13-75); Potassium 3.6 mmol/L (3.3-5.1)
[2025-08-13 23:05] VITALS: BP 100/65; PULSE 63; RESP 16; O2SAT 100
[2025-08-13 23:12] VITALS: BP 100/65; PULSE 63; RESP 16; TEMP 36.1; O2SAT 100
== END 2025-08-13 23:13 | disposition home or self-care (01) ==
PROVIDERS: Emergency Provider Emergency Medicine; PCP Clinical Nurse Specialist Adult Health; Visit Provider Emergency Medicine
DX: R11.2 Nausea with vomiting, unspecified (principal); R06.00 Dyspnea, unspecified; I44.7 Left bundle-branch block, unspecified; R51.9 Headache, unspecified; M54.9 Dorsalgia, unspecified; Z98.84 Bariatric surgery status
CPT/HCPCS: 71046; 80053; 81001; 83690; 84703; 85025; 93005; 96361; 96374; 99284; A4216; J2405

== ENCOUNTER 2025-09-02 13:19 | Emergency (ER) | payer BC, SELFPAY ==
[2025-09-02 13:19] VITALS: BP 124/83; PULSE 58; RESP 16; TEMP 36.6; O2SAT 100; BMI 22.4
[2025-09-02] MEDS: 0.9% Normal Saline (1000mL) 1,000 ML 999 ML IV (13:51)
--- OUTSIDE RECORDS SUMMARY | 2025-09-02 14:01 | XMS RPT_ITS | CCD ---
Author Organization [facility] Care Team Providers Care Employee Benefits Coordinator Name Role Phone Johanna Anderson LPN Unavailable [...] Palma PA-C Primary Care Provider Unavailable Hamatthias CONTENT ANALYST.Radha PRESCOTT Unavailable Suppan CONTENT ANALYST.GENIE Yissel A Unavailable [phone] Suppan CONTENT ANALYST.GENIE Yissel A Unavailable Suppan CONTENT ANALYST.GENIE Yissel A Unavailable Tony Dimas MD Unavailable Suppan CONTENT ANALYST.GENIE Yissel A Primary Care Provi ricardo Dr. Enriqueta Duffy DO Emergency Provider Suppan PAWN SHOP KEEPER, Yissel Primary Care Provider ELLEN BALDWIN Attending Unavailable ESPERANZA MERCER Referring Unavailable SUPPAN, YISSEL A Primary Care Unavailable TRI HAMMOND Attending Unavailable TRI HAMMOND Admitting Unavailable PALMAEDD GRANGER Primary Care Unavailable Kylah Palma Primary Care Unavailable Rogelio Campuzano Attending Unavailabl e Suppan, Yissel Primary Care Unavailable Enriqueta Duffy Attending Unavailable Suppan, Yissel Primary Care Unavailable Stephen Sanders Attending Unavailable PalmaKylah granger Referring Unavailable Lio gA Attending Unavailable Palma, Kylah Keita Primary Care Unavailable Palma, Kylah Keita Primary Care Unavailable Palma, M Neela Referring Unavailable Lio Ag Attending Unavailable TRI HAMMOND Attending Unavailable EDD PALMA Primary Care Unavailable ONEYDA RECINOS Attending Unavailable EDD PALMA Primary Care Unavailable ONEYDA RECINOS Referring Unavailable EDD PALMA Primary Care Unavailable SUPPAN, YISSEL A Attending Unavailable SUPPAN, YISSEL A Primary Care Unavailable SELF Referring Unavailable SUPPAN, YISSEL A Primary Care Unavailable MARYANA ZELAYA Referring Unavailable SUPPAN, YISSEL A Primary Care Unavailable ONEYDA RECINOS Referring Unavailable RECINOSONEYDA RAMOS Referring Unavailable SUPPAN, YISSEL A Primary Care Unavailable TRI HAMMOND Attending Unavailable SUPPAN, YISSEL A Primary Care Unavailable SUPPAN, YISSEL A Attending Unavailable SUPPAN, YISSEL A Primary Care Unavailable SUPPAN, YISSEL A Referring Unavailable ALEC BLAIR Attending Unavailable EDD PALMAORY Primary Care Unavailable EDD PALMAORY Primary Care Unavailable RECINOSONEYDA RAMOS Referring Unavailable SUPPAN, YISSEL A Primary Care Unavailable HABISMARK REEDERILY Referring Unavailable PALMA, EDD KEITA Primary Care Unavailable BISMARK BLAIRILY Referring Unavailable BISMARK BLAIRILY Attending Unavailable EDD PALMAORY Primary Care Unavailable SUPPAN, YISSEL A Referring Unavailable SUPPAN, YISSEL A Primary Care Unavailable ALEC BLAIR Attending Unavailable SUPPAN, YISSEL A Primary Care Unavailable Allergies Allergy Classification Reported Allergen(s) Allergy Type Date of Onset Reaction(s) Facility metFORMIN (4 sources) metFORMIN Drug Allergy 2 Diarrhea [facility] Work Phone: (20 sources) metFORMIN; Translations: [METFORMIN] Drug Allergy 2 Diarrhea [facility] Work Phone: (20 sources) Non-steroidal anti-inflammator y agent; Translations: [NSAIDS (NON-STEROIDAL ANTI-INFLAMMATOR Y DRUG)] Propensity to adverse reactions to drug 4 Contraindicatio [facility] Work Phone: (1 source) Nonsteroidal Anti-inflammator y Compounds Propensity to adverse reactions 5 Other [facility] Comment on above: d/t weight loss surg geoffrey history (2 sources) Non-steroidal anti-inflammator y agent Propensity to adverse reactions to drug 4 Contraindicao [facility] Work Phone: (1 source) metFORMIN Drug Allergy 5 [facility] Repository (1 source) NSAIDs Drug allergy (disorder) 5 [facility] Repository Medications Current Medications Medication Drug Class(es) Dates [...] PO DAILY February 08, 2025 12:00am levonorgestrel 0.941873 mg/hr intrauterine system (20 sources) Progestin, Progestin-containing [...] , HOCM (hypertrophic obstructive cardiomyopathy) (HCC) , Jbscf-Gxnptgafb-Phk te (WPW) syndrome Take 1.5 tablets by [...] 06-30-2017 METOPROLOL SUC CINATE ER 100 MG [id number] as directed METOPROLOL SUCCINATE [id number] Alec Mcdaniels LPN Start: 02-21-2014 Metoprolol Tar [...] days with food. Take 2 tablets by [facility] once daily for 5 days. proparacaine [...] on above: Take 2 tablets by mo [facility] every 6 hours. acetaminophen 325 mg / [...] on above: Take 1 capsule by mo [facility] twice daily for 7 days. CPAP/BIPAP/OTHER (20 [...] Comment on above: Take 1 tablet by [facility] three times daily as needed for muscle [...] hours as needed for pain. polymyxin b 65145 unt/ml / trimethoprim 1 mg/ml ophthalmic solution [...] encounter] 12-17-2019 Episodic Conduction disorders (20 sources) Ujlac-Ngubsncho-Tmiaz pattern; Translations: [Pre-excitation syndrome] Onset: 09-22-2018 12-07-2019 [...] Conjunctivitis; Translations: [Other mucopurulent conjunctivitis, bilateral] Episodic Nutritional deficiencies (20 sources) Vitamin D deficiency; Translations: [Vitamin D deficiency, unspecified] Onset: 10-02-2022 10-02-2022 Chronic Open wounds of head; neck; and trunk (1 source) Facial laceration ; Translations: [Laceration without foreign body of other part of head, initial encounter] 09-03-2024 Episodic Other aftercare (20 sources) Long-term current use of anticoagulant; Translations: [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 anticoagulants] Onset: 03-12-2023 Episodic [...] unspecified] Onset: 2 Resolved: 2 08-04-2012 Chronic Nausea and vomiting (2 sources) Vomiting; Translations: [Vomiting, unspecified] Onset: 5 02-08-2025 Episodic Other aftercare (20 sources) Surgical follow-up; Translations: [Encounter for surgical aftercare following surgery on the circulatory system] Onset: 0 12-07-2019 Episodic Other aftercare (1 source) USP (current) use of anticoagulants; Translations: [USP (current) use of anticoagulants] Onset: 3 Episodic [...] Test Name Value Interpretation Reference Range Facility 12 Lead EKGon 08-13-2025 12 Lead EKG [facility] Cardiovascular Services [address] [place] [address] 12 Lead EKG 08/13/25 1937 MR#: [id number] Acct: [id number] Name: CHAVO CAVANAUGH Rep #: [id number] : 1980 45 From: Ju Berrios MD Attending Dr: Status: DEP ER Ordering Dr: Stephen Sanders DO Date: 08/13/25 Location: ED Sex: F C Admitted: Test Reason : SOB Blood Pressure : */* mmHG Vent. Rate : 74 BPM Atrial Rate : 74 BPM P-R Int : 154 ms QRS Dur : 124 ms QT Int : 424 ms P-R-T Axes : 64 15 122 degrees QTcB Int : 470 ms Normal sinus rhythm Left bundle branch block Abnormal ECG Confirmed by Ju Berrios ([id number]), state editor LUTHER VIDAL ([id number]) on 08/14/2025 10:30:23 AM Referred By: Confirmed By: Ju Berrios 08/14/25 1030 Date Ju Berrios MD CC: MARLEN Marcial; Dr. Stephen Sanders, DO Signed Normal [facility] CBC W/Diff, Automatedon 11-0 -2024 Absolute Lymph 1.97 X10 3/uL Normal 0.83-4.51 [facility] Comment on above: Performed By: #### L 100.0100, L500.4050, L501.2450, L700.6800 ####[facility] [address] [place], [address] Absolute Neut 5.2 X10 3/uL Normal 2.0-7.7 [facility] Comment on above: Performed By: #### L 100.0100, L500.4050, L501.2450, L700.6800 ####[facility] [address] [place], [address] Basophils/100 WBC (Bld) 1.0 % Normal 0-[address] [facility] Comment on above: Performed By: #### L 100.0100, L500.4050, L501.2450, L700.6800 ####[facility] [address] [place], [address] Eosinophils/100 WBC (Bld) 0.8 % Normal 0-5 [facility] Comment on above: Performed By: #### L 100.0100, L500.4050, L501.2450, L700.6800 ####[facility] [address] [place], [address] Erythrocyte distribution width (RBC) [Ratio] 15.0 % High 11.6-14.6 [facility] Comment on above: Performed By: #### L 100.0100, L500.4050, L501.2450, L700.6800 ####[facility] [address] [place], [address] Hematocrit (Bld) [Volume fraction] 32.3 % Low 37-47 [facility] Comment on above: Performed By: #### L 100.0100, L500.4050, L501.2450, L700.6800 ####[facility] [address] [place], [address] Hemoglobin (Bld) [Mass/Vol] 10.5 g/dL Low 12.0-15.0 [facility] Comment on above: Performed By: #### L 100.0100, L500.4050, L501.2450, L700.6800 ####[facility] [address] [place], [address] IG% 0.300 Normal 0.0-0.9 [facility] Comment on above: Result Comment: IG% - Immature Granulocytes (promyelocytes, myelocytes and metamyelocytes) > 1% indicates that a LEFT SHIFT is Present. Performed By: #### L 100.0100, L500.4050, L501.2450, L700.6800 ####[facility] [address] [place], [address] Lymphocytes/100 WBC (Bld) 25.2 % Normal 19-41 [facility] Comment on above: Performed By: #### L 100.0100, L500.4050, L501.2450, L700.6800 ####[facility] [address] [place], [address] MCH (RBC) [Entitic mass] 26.1 pg Low 27.0-32.0 [facility] Comment on above: Performed By: #### L 100.0100, L500.4050, L501.2450, L700.6800 ####[facility] [address] [place], [address] MCHC (RBC) [Mass/Vol] 32.5 g/dL Normal 32-36 [facility] Comment on above: Performed By: #### L 100.0100, L500.4050, L501.2450, L700.6800 ####[facility] [address] [place], [address] MCV (RBC) [Entitic vol] 80.1 fL Low 81-99 [facility] Comment on above: Performed By: #### L 100.0100, L500.4050, L501.2450, L700.6800 ####[facility] [address] [place], [address] Monocytes/100 WBC (Bld) 6.5 % Normal 0-10 [facility] Comment on above: Performed By: #### L 100.0100, L500.4050, L501.2450, L700.6800 ####[facility] [address] [place], [address] Neutrophils/100 WBC (Bld) 66.2 % Normal 47-70 [facility] Comment on above: Performed By: #### L 100.0100, L500.4050, L501.2450, L700.6800 ####[facility] [address] [place], [address] Nucleated RBC (Bld) [#/Vol] 0 10*3/uL Normal 0-5 [facility] Comment on above: Performed By: #### L 100.0100, L500.4050, L501.2450, L700.6800 ####[facility] [address] [place], [address] Platelet mean volume (Bld) [Entitic vol] 11.4 fL Normal 6.2-12.0 [facility] Comment on above: Performed By: #### L 100.0100, L500.4050, L501.2450, L700.6800 ####[facility] [address] [place], [address] Platelets (Bld) [#/Vol] 272 10*3/uL Normal 150-450 [facility] Comment on above: Performed By: #### L 100.0100, L500.4050, L501.2450, L700.6800 ####[facility] [address] [place], [address] RBC (Bld) [#/Vol] 4.03 10*6/uL Low 4.2-5.4 [facility] Comment on above: Performed By: #### L 100.0100, L500.4050, L501.2450, L700.6800 ####[facility] [address] [place], [address] RDW SD 43.7 fl Normal 35.1-43.9 [facility] Comment on above: Performed By: #### L 100.0100, L500.4050, L501.2450, L700.6800 ####[facility] [address] [place], [address] WBC (Bld) [#/Vol] 7.8 10*3/uL Normal 4.4-11.0 [facility] Comment on above: Performed By: #### L 100.0100, L500.4050, L501.2450, L700.6800 ####[facility] [address] [place], [address] Chest PA and Lateralon 08-13 Chest PA and Lateral [facility] Imaging Services [address] [place] [address] Chest PA and Lateral MR#: [id number] Acct: [id number] Name: CHAVO CAVANAUGH Rep #: [id number] : 1980 F 45 From: Tino Livingston MD PCP: MARLEN Cedeno Status: REG ER Study: Chest PA and Lateral Date of Exam: 08/13/25 Exam# [id number] Ordering Dr: Stephen Sanders DO PROCEDURE: CHEST PA AND LATERAL 08/13/2025 REASON FOR EXAM: DYSPNEA TECHNIQUE: Procedure Code: RADCXR Modality: DX Procedure: CHEST PA AND LATERAL COMPARISON: 03/07/2023 FINDINGS: Lungs/Pleura: Clear. No pneumothorax or pleural effusion appreciated. Heart/Mediastinum: Normal in size. Left chest wall subcutaneous ICD. Left atrial appendage clip. Bones/Soft tissues: Minimal degenerative changes of the spine. Sternotomy wires. Epigastric chain suture material and right upper abdominal surgical clips. RAD/Chest PA and Lateral IMPRESSION: No evidence of acute cardiopulmonary disease. Reading Location: [facility] CC: PAWN SHOP KEEPER Yissel Marcial; Dr. Stephen Sanders DO Social Services: Signed Normal [facility] Comprehensive Metabolic Prof ilon 08-13-2025 Albumin [Mass/Vol] 3.8 g/dL Normal 3.5-5.0 [facility] Comment on above: Performed By: #### L 100.0100, L500.4050, L501.2450, L070.4660 ####[facility] [address] [place], [address] Albumin/Globulin [Mass ratio] 1.6 {ratio} Normal 0.9-2.4 [facility] Comment on above: Performed By: #### L 100.0100, L500.4050, L501.2450, L700.6800 ####[facility] [address] [place], [address] ALK PHOS 54 U/L Normal 35-104 [facility] Comment on above: Performed By: #### L 100.0100, L500.4050, L501.2450, L700.6800 ####[facility] [address] [place], [address] ALT [Catalytic activity/Vol] 10 U/L Normal <=34 [facility] Comment on above: Performed By: #### L 100.0100, L500.4050, L501.2450, L700.6800 ####[facility] [address] [place], [address] AST [Catalytic activity/Vol] 21 U/L Normal <=31 [facility] Comment on above: Performed By: #### L 100.0100, L500.4050, L501.2450, L700.6800 ####[facility] [address] [place], [address] Bilirubin [Mass/Vol] 0.70 mg/dL Normal 0.00-1.30 [facility] Comment on above: Performed By: #### L 100.0100, L500.4050, L501.2450, L700.6800 ####[facility] [address] [place], [address] BUN/CRE 27.4 RATIO High 10-20 [facility] Comment on above: Performed By: #### L 100.0100, L500.4050, L501.2450, L700.6800 ####[facility] [address] [place], [address] Calcium [Mass/Vol] 8.5 mg/dL Normal 7.6-11.0 [facility] Comment on above: Performed By: #### L 100.0100, L500.4050, L501.2450, L700.6800 ####[facility] [address] [place], [address] Chloride [Moles/Vol] 107 mmol/L Normal 98-108 [facility] Comment on above: Performed By: #### L 100.0100, L500.4050, L501.2450, L700.6800 ####[facility] [address] [place], [address] CO2 [Moles/Vol] 22.9 mmol/L Normal 21.0-32.0 [facility] Comment on above: Performed By: #### L 100.0100, L500.4050, L501.2450, L700.6800 ####[facility] [address] [place], [address] Creatinine [Mass/Vol] 0.70 mg/dL Normal 0.70-1.20 [facility] Comment on above: Performed By: #### L 100.0100, L500.4050, L501.2450, L700.6800 ####[facility] [address] [place], [address] ECRCL 102.38 ml/min Normal 50-250 [facility] Comment on above: Performed By: #### L 100.0100, L500.4050, L501.2450, L700.6800 ####[facility] [address] [place], [address] GAP 9 Normal 5-15 [facility] Comment on above: Performed By: #### L 100.0100, L500.4050, L501.2450, L700.6800 ####[facility] [address] [place], [address] GFR/1.73 sq M.predicted among non-blacks MDRD (S/P/Bld) [Vol rate/Area] 109 mL/min/{1.73_m2} Normal >60 [facility] Comment on above: Result Comment: mL/m in/1.73m2 CKD-EPI Creatinine Equation (2020) Performed By: #### L 100.0100, L500.4050, L501.2450, L700.6800 ####[facility] [address] [place], [address] Globulin (S) [Mass/Vol] 2.3 g/dL Normal 2.2-4.2 [facility] Comment on above: Performed By: #### L 100.0100, L500.4050, L501.2450, L700.6800 ####[facility] [address] [place], [address] Glucose [Mass/Vol] 105 mg/dL High 70-99 [facility] Comment on above: Performed By: #### L 100.0100, L500.4050, L501.2450, L700.6800 ####[facility] [address] [place], [address] Potassium [Moles/Vol] 3.6 mmol/L Normal 3.3-5.1 [facility] Comment on above: Performed By: #### L 100.0100, L500.4050, L501.2450, L700.6800 ####[facility] [address] [place], [address] Sodium [Moles/Vol] 139 mmol/L Normal 133-145 [facility] Comment on above: Performed By: #### L 100.0100, L500.4050, L501.2450, L700.6800 ####[facility] [address] [place], [address] T PROT 6.1 g/dL Normal 5.9-8.4 [facility] Comment on above: Performed By: #### L 100.0100, L500.4050, L501.2450, L700.6800 ####[facility] [address] [place], [address] Urea nitrogen [Mass/Vol] 19 mg/dL Normal 4-19 [facility] Comment on above: Performed By: #### L 100.0100, L500.4050, L501.2450, L700.6800 ####[facility] [address] [place], [address] Emergency Department Summary on 08-13-2025 Emergency Department Summary [facility] Medical Records Department [address] [place] [address] Emergency Department Summary 08/13/25 MR#: [id number] Acct: [id number] Name: CHAVO CAVANAUGH Rep #: [id number] : 1980 45 From: Stephen Sanders DO PCP: Yissel Marcial, PAWN SHOP KEEPER Status:DEP ER Location: ED HPI History of Present Illness Chief Complaint: Shortness of Breath Informant: patient Onset/Context/Timing Onset: Yesterday Context: Sudden Onset Timing: Continuous Worsened by: Nothing Relieved by: Nothing Narrative Narrative: Patient presents with shortness of breath and nausea and vomiting that began yesterday. Patient states it began rather suddenly. Patient states it has been constant. Patient states nothing makes her breathing worse and nothing makes it better. Patient denies any hematemesis or coffee-ground emesis. Patient denies any diarrhea, melena, or hematochezia. Patient denies any dysuria, frequency, or hematuria. Patient denies any chest pain or cough. Patient denies any fevers or chills. [facility] Medical History HOCM (hypertrophic obstructive cardiomyopathy) Presence of combination [...] Headache #20 0 02/08/25 Unknown Rx tabs ondansetron 4 mg disintegrating 4 mg PO Q8H PRN PRN Nausea #10 tab s 08/13/25 Unknown Rx tablet Allergy/AdvReac Type Severity Reaction Status Date / Time metformin AdvReac Nausea/Vom/ Verified 08/13/25 19:26 Diarrhea NSAIDS (Non-Steroidal AdvReac Other Verified 08/13/25 19:26 Anti-Inflamma Family History Mother Diabetes Hypertension Father CVA (cerebral vascular accident) Surgical History S/P gastric bypass H/O cardiac radiofrequency ablation Hx of tympanostomy tubes History of heart surgery Social History Smoking Status: Never smoker alcohol intake: never ROS ROS ED Constitutional Constitutional ED: Denies chills or fever(s) Eyes Eyes: Denies blurry vision or change in vision ENT ENT ED: Denies rhinorrhea or sore throat Cardiovascular Cardiovascular: Denies chest pain or palpitations Respiratory/Chest Respiratory/Chest: Reports dyspnea; Denies cough Gastrointestinal Gastrointestinal: Reports nausea and vomiting Genitourinary Genitourinary ED: Denies dysuria or hematuria Musculoskeletal Musculoskeletal: Reports back pain; Denies neck pain Integumentary Denies abscess or rash Neurologic Neurologic: Reports headache(s); Denies weakness Allergic/Immunologic Allergic/Immunologic ED: Denies mouth swelling or urticaria EXAM Physical Exam Const Vital Signs: 08/13/25 19:26 08/13/25 19:39 08/13/25 21:16 Temperature 96.9 F L Temperature Source Temporal Pulse Rate 98 Pulse Rate [Lying] 57 L Pulse Rate [Sitting (for 1 minute prior to obtaining)] 66 Pulse Rate [Standing (for 1 minute prior to obtaining)] 73 Respiratory Rate 16 Respiratory Effort Normal Respiratory Depth Normal Respiratory Pattern Normal Blood Pressure 125/87 H Blood Pressure [Lying] 112/78 Blood Pressure [Sitting (for 1 minute prior to obtaining)] 114/75 Blood Pressure [Standing (for 1 minute prior to obtaining)] 108/82 H Blood Pressure Mean 99 Blood Pressure Mean [Lying] 89 Blood Pressure Mean [Sitting (for 1 minute prior to obtaining)] 88 Blood Pressure Mean [Standing (for 1 minute prior to obtaining)] 90 Pulse Ox 100 Oxygen Delivery Method Room Air Room Air 08/13/25 21:26 08/13/25 23:05 08/13/25 23:12 Temperature 96.9 F L Temperature Source Pulse Rate 55 L 63 63 Pulse Rate [Lying] Pulse Rate [Sitting (for 1 minute prior to obtaining)] Pulse Rate [Standing (for 1 minute prior to obtaining)] Respiratory Rate 11 L 16 16 Respiratory Effort Respiratory Depth Respiratory Pattern Blood Pre (more content not included)... Normal [facility] Lipaseon 08-13-2025 Lipase [Catalytic activity/Vol] 40 U/L Normal 13-75 [facility] Comment on above: Result Comment: Sally jama note: LIPASE revised reference range effective 23. New Lipase methodology. Expected to produce lower values than the previous assay method. NEW Reference Range: 13 - 75 U/L Performed By: #### L 100.0100, L500.4050, L501.2450, L700.6800 ####[facility] [address] [place], [place], [id number] ,Serum,hCG Quali.on 08-13-2025 HCG, SERUM QUAL Negative Normal [facility] Comment on above: Performed By: #### L 100.0100, L500.4050, L501.2450, L700.6800 ####[facility] [address] [place], [address] Urinalysis, Completeon 08-13 BACTERIA 4+ /hpf Normal None Seen [facility] Comment on above: Order Comment: CLEAN CATCH Performed By: #### L 400.0001 ####[facility] [address] [place], [address] CAST,HYALINE 0-5 SEEN Normal 0-5 [facility] Comment on above: Order Comment: CLEAN CATCH Performed By: #### L 400.0001 ####[facility] [address] [place], [address] EPI,SQUAMOUS 25-50 SEEN Normal 5-10 [facility] Comment on above: Order Comment: CLEAN CATCH Performed By: #### L 400.0001 ####[facility] [address] [place], [address] Mucus Ql (Urine sed) 2+ /hpf Normal [facility] Comment on above: Order Comment: CLEAN CATCH Performed By: #### L 400.0001 ####[facility] [address] [place], [address] RBC 0-5 SEEN Normal 0-5 [facility] Comment on above: Order Comment: CLEAN CATCH Performed By: #### L 400.0001 ####[facility] [address] [place], [address] WBC 10-25 SEEN Normal 0-5 [facility] Comment on above: Order Comment: CLEAN CATCH Performed By: #### L 400.0001 ####[facility] [address] [place], [address] [facility] CNP[facility] Telephone (PHARMN) CHAVO CAVANAUGH ([id number]) 1980 F Date Time Provider Department 08/04/25 PHARMACIST PHARMN During your visit today, we recorded the following information about you: [place] (Inbound Call Center Agent)[place] 08/04/2025 7:23 AM Signed PAC received faxed outside lab/home meter result for patient via mdINR from Date: 08/03 . Results have been scanned into patient's chart and are located under 'Scanned Documents'. Please note, may take up to 10 minutes for document to transfer from [facility] to [facility]. PT INR (no units) Date Value 08/03/2025 1.1 07/24/2025 4.3 07/17/2025 3.7 [place] Paz ([employer]) Vijaya Rojas [facility] [facility] 08/04/2025 8:01 AM Signed [facility] Anticoagulation Clinic Anticoagulation Episode Summary Anticoagulation Care Providers Provider Role Specialty Phone number Oneyda Recinos MD Referring Cardiology [phone] Chavo Cavanaugh is a 45 year old year old [...] CREAT 0.66 01/12/2025 No components found for: TBILI3 Lab Results Component Value Date ALT 16 [...] unspecified type (hcc) Paroxysmal atrial fibrillation (hcc) USP (current) use of anticoagulants Anticoagulation Episode Summary [...] the low INR result from yesterday at [phone]. If she does not reach our clinic today she should take warfarin 12.5mgx1 as noted above Added to the critical list for follow up tomorrow if she does not call back today Vijaya Rojas [facility] Clinical Pharmacist, Pharmacy Anticoagulation Clinic Pharmacy Anticoagulation Clinic Pager: [phone]. Natasha Barboza [facility] 08/05/2025 11:07 AM Signed [facility] Anticoagulation Clinic Anticoagulation Episode Summary Anticoagulation Care Providers Provider Role Specialty Phone number Oneyda Recinos MD Referring Cardiology [phone] Chavo Cavanaugh is a 45 year old year old [...] CREAT 0.66 01/12/2025 No components found for: TBILI3 Lab Results Component Value Date ALT 16 [...] unspecified type (hcc) Paroxysmal atrial fibrillation (hcc) USP (current) use of anticoagulants Anticoagulation Episode Summary Current INR goal: 2.0-3.0 Assessment: INR result of 1.1 is SUBtherapeutic due to: unknown cause - did not speak to patient Plan: Current Warfarin Dosing As of 08/04/2025 Full warfarin instructions: 08/04: 12.5 mg; 08/05: 10 mg; Otherwise 7.5 mg every day Left voice message Advise (more content not included)... Normal [facility] Hemoccult Stl Ql IAon 2024 Lower GI hemoglobin IA Ql (Stl) Negative Normal Negative [facility] Comment on above: Order Comment: Speci men Type: STOOL SPECIMENOrdering Facility: [facility] Address: [address] [place] [address] Performed By: #### 2 9771-3 ####[facility] LABCLIA [id number] [address] OF [facility] CNPNon 07-24-2025 CNPN Telephone (PHARMN) CHAVO CAVANAUGH ([id number]) 1980 F Date Time Provider Department 07/24/25 PHARMACIST PHARMN During your visit today, we recorded the following information about you: Sera (Inbound Call Center AgentBernardo Ramon 07/24/2025 4:49 PM Signed Received fax from [facility] with INR results for patient. Patient tested on 07/24/2025 and the INR result was 4.3. Fax can be found under scanned documents as miscellaneous lab result. [facility] PT INR (no units) Date Value 07/24/2025 4.3 07/17/2025 3.7 06/08/2025 1.2 INR (no units) Date Value 07/13/2025 1.2 Patient did not read previous result MC message until today, unclear what dosing patient would be taking. Bernardo Zamora, Head Of Conservation (scutcher tender) Pharmacy Anticoagulation Clinic Oscar RosaTrino 07/24/2025 4:57 PM Signed [facility] Anticoagulation [facility] Anticoagulation Episode Summary Anticoagulation Care Providers Provider Role Specialty Phone number Oneyda Recinos MD Referring Cardiology [phone] Chavo Cavanaugh is a 45 year old year old [...] CREAT 0.66 01/12/2025 No components found for: TBILI3 Lab Results Component Value Date ALT 16 [...] missed any doses of warfarin. Rosa Moore [facility] Clinical Pharmacist, Pharmacy Anticoagulation Clinic Pharmacy Anticoagulation Clinic Pager: [phone]. Lora Raza RPh 07/27/2025 3:54 PM Signed Chavo Cavanaugh was called and reminded to test INR today or as soon as possible. Trino Subramanian Bethany, RPh 07/31/2025 1:48 PM Signed Chavo Cavanaugh was called and sent MyChart and reminded to test INR today or as soon as possible. Called and LVM please check INR after work and Pharmacy Anticoagulation Clinic will call today or tomorrow AM once we receive result. Also sent MyChart. Labile INR with TTR 11.4% and hx lost to follow up so will follow up again tomorrow. Rosa Moore, [facility] RubinJennifer mahoneyTrino 08/02/2025 3:14 PM Signed LM again for pt to test. Will check back by the end of the week. Perhaps she will test after work. Jennifer Carlita [facility] Allergies As of Date: 07/24/2025 Noted Allergy Reaction METFORMIN 01/23/2022 6 - Diarrhea NSAIDS (NON-STEROIDAL ANTI-INFLAM*01/13/20 24 15 - Contraindication-Med ical Chow* Comments: S/p gastric bypass, relative cont (more content not included)... Normal [facility] CNPNon 07-18-2025 CNPN Telephone (PHARMN) CHAVO CAVANAUGH ([id number]) 1980 F Date Time Provider Department 07/18/25 PHARMACIST PHARMN During your visit today, we recorded the following information about you: Sera (Inbound Call Center Agent)Bernardo 07/18/2025 7:29 AM Signed Received fax from [facility] with INR results for patient. Patient tested on 07/17/2025 and the INR result was 3.7. Fax can be found under scanned documents as miscellaneous lab result. It may take a few minutes to transfer from [facility]. PT INR (no units) Date Value 07/17/2025 3.7 06/08/2025 1.2 05/31/2025 2.2 INR (no units) Date Value 07/13/2025 1.2 Bernardo Zamora, Head Of Conservation (scutcher tender) Pharmacy Anticoagulation Clinic Bren Hernandez [facility] 07/18/2025 8:06 AM Signed [facility] Anticoagulation Episode Summary Anticoagulation Care Providers Provider Role Specialty Phone number Oneyda Recinos MD Referring Cardiology [phone] Chavo Cavanaugh is a 45 year old year old [...] CREAT 0.66 01/12/2025 No components found for: TBILI3 Lab Results Component Value Date ALT 16 [...] missed any doses of warfarin. Bren Hernandez [facility] Clinical Pharmacist, Pharmacy Anticoagulation Clinic Pharmacy Anticoagulation Clinic Pager: [phone]. Rosa Moore RPh 07/24/2025 3:40 PM Signed Crystal Jens Cavanaugh was called and reminded to test INR today or as soon as possible. She is going to check when she gets home from work. Works 7am-3:30pm so Pharmacy Anticoagulation Clinic will call once INR results or tomorrow after 3:30pm (or MyChart if in range) Rosa Moore [facility] Allergies As of Date: 07/18/2025 Noted Allergy Reaction METFORMIN 01/23/2022 6 - Diarrhea NSAIDS (NON-STEROIDAL ANTI-INFLAM*01/13/20 24 15 - Contraindication-Med ical Chow* Comments: S/p gastric bypass, relative contraindication to NSAIDs Date Reviewed: 07/13/2025 Reviewed by: Janelle Oconnell MA - Fully Assessed Reason for Visit: Anticoagulation Telephone Fu [148] Order(s):INR [[id number]] Order #: [id number] Prescriptions as of 07/24/2025 - pantoprazole DR [...] multivitamin tablet (more content not included)... Normal [facility] 25(OH)D3 Keyal-Balancon 2024 25-hydroxyvitamin D3 [Mass/Vol] 35.4 ng/mL Normal 31.0-80.0 [facility] Comment on above: Order Comment: Speci men Type: BLOOD SPECIMENOrdering Facility: [facility] Address: [address] [place] [address] Result Comment: Clas sification of 25 OH Vitamin D status: Deficiency/Insufficiency: < or = 30 ng/ml. Sufficiency/Optimal Levels: 31-80 ng/mL Toxicity: > 100 ng/mL. Test performed by chemiluminescent immunoassay. Performed By: #### 1 989-3 ####[facility] LABIA [id number] [place] [address] [place] CBC panel Auto (Bld)on 07-13 Erythrocyte distribution width (RBC) [Ratio] 14.5 % Normal 11.5-15.0 [facility] Comment on above: Order Comment: Speci shikha Type: BLOOD SPECIMENOrdering Facility: [facility] Address: [address] [place] [address] Performed By: #### 5 8410-2 ####[facility] LABIA [id number] [place] [address] [place] Hematocrit (Bld) [Volume fraction] 36.6 % Normal 36.0-46.0 [facility] Comment on above: Order Comment: Speci shikha Type: BLOOD SPECIMENOrdering Facility: [facility] Address: [address] [place] [address] Performed By: #### 5 8410-2 ####[facility] LABCLIA [id number] [place] [id number] [place] Hemoglobin (Bld) [Mass/Vol] 11.6 g/dL Normal 11.5-15.5 [facility] Comment on above: Order Comment: Speci men Type: BLOOD SPECIMENOrdering Facility: [facility] Address: [address] [place] [address] Performed By: #### 5 8410-2 ####[facility] LABIA [id number] [place] [address] [place] MCH (RBC) [Entitic mass] 25.8 pg Low 26.0-34.0 [facility] Comment on above: Order Comment: Speci men Type: BLOOD SPECIMENOrdering Facility: [facility] Address: [address] [place] [address] Performed By: #### 5 8410-2 ####[facility] LABIA [id number] [place] [address] [place] MCHC (RBC) [Mass/Vol] 31.7 g/dL Normal 30.5-36.0 [facility] Comment on above: Order Comment: Speci men Type: BLOOD SPECIMENOrdering Facility: [facility] Address: [address] [place] [address] Performed By: #### 5 8410-2 ####[facility] [id number] [place] [address] [place] MCV (RBC) [Entitic vol] 81.5 fL Normal 80.0-100.0 C [facility] Comment on above: Order Comment: Speci men Type: BLOOD SPECIMENOrdering Facility: [facility] Address: [address] [place] [address] Performed By: #### 5 8410-2 ####[facility] LABIA [id number] [place] [address] [place] Nucleated RBC (Bld) [#/Vol] 10*3/uL Normal <0.01 [facility] Comment on above: Order Comment: Speci men Type: BLOOD SPECIMENOrdering Facility: [facility] Address: [address] [place], [place] [address] Performed By: #### 5 8410-2 ####[facility] LABCLIA [id number] [place] [address] [place] Platelet mean volume (Bld) [Entitic vol] 11.0 fL Normal 9.0-12.7 [facility] Comment on above: Order Comment: Speci men Type: BLOOD SPECIMENOrdering Facility: [facility] Address: [address] [place] [address] Performed By: #### 5 8410-2 ####[facility] LABCLIA [id number] [place] [address] [place] Platelets (Bld) [#/Vol] 346 10*3/uL Normal 150-400 [facility] Comment on above: Order Comment: Speci men Type: BLOOD SPECIMENOrdering Facility: [facility] Address: [address] [place] [address] Performed By: #### 5 8410-2 ####[facility] LABCLIA [id number] [place] [address] [place] RBC (Bld) [#/Vol] 4.49 10*6/uL Normal 3.90-5.20 [facility] Comment on above: Order Comment: Speci men Type: BLOOD SPECIMENOrdering Facility: [facility] Address: [address] [place] [address] Performed By: #### 5 8410-2 ####[facility] LABCLIA [id number] [place] [id number] [place] WBC (Bld) [#/Vol] 4.99 10*3/uL Normal 3.70-11.00 [facility] Comment on above: Order Comment: Speci men Type: BLOOD SPECIMENOrdering Facility: [facility] Address: [address] [place] [address] Performed By: #### 5 8410-2 ####[facility] LABCLIA [id number] [facility] HEALTH SERVICESJens [place] [id number] [place] [facility] CNOVon 07-13-2025 CNOV Office Visit (FAMPWS) CHAVO CAVANAUGH ([id number]) 1980 F Date Time Provider Department 07/13/25 9:00 AM YISSEL MARCIAL During your visit today, we recorded the following information about you: Pulse Blood pressure Weight Height 65/minute 100/64 68 kg 1.78 m Yissel Marcial APRN.CNP 07/13/2025 10:44 AM Signed Chief Reason For Appointment Patient presents with: Yearly Exam Chavo Cavanaugh is a 45 year old female who presents for annual exam. Last office visit date: 01/12/2025 Accompanied By self only Have you had any critical events, hospital stays, ER visits, surgeries or procedures since your last visit here in our office: Yes EGD Specialists/Other Healthcare Providers Seen: Patient Care Team: iYssel Marcial APRN.CNP as PCP - General (Family Medicine) [...] checkup; trying to schedule an appointment with tele rn. GERD: - Recent increase in acid reflux, [...] MVr: ASA. Echo AND surg path reviewed. District Gauger with regard to screening of 1st degree [...] Obesity, Class I, Bmi 30-34.9 - 05/07/2023 Supervisor Area (Current) Use of Anticoagulants - 03/12/2023 S/P Gastric Bypass - 03/05/2023 History of Atrial Fibrillation - 11/19/2022 [place] (Obstructive Sleep Apnea) - 11/05/2022 Comment: 02/20/2023 New set: Settings 4 - 8 cm H2O, suitable mask per pt preference (nasal or pillow opt), chin strap, head gear, humidity, tubing, lifetime supplies. G47.33 [facility] [place]; [facility]# [phone]------FA X# [phone] Metabolic Syndrome - 10/02/2022 Pre-Diabetes - 10/02/2022 Vitamin D Deficiency, Unspecified - 10/02/2022 Patient Under Care of Multiple Providers - 02/05/2022 Comment: ICD Dr. Oneyda Recinos 1st; Dr. Oneyda Plunkett Bow Tacker Dr. Gaston DE LEON Paroxysmal Atrial Fib (more content not included)... Normal [facility] Comprehensive metabolic 2000 panelon 07-13-2025 Albumin [Mass/Vol] 4.1 g/dL Normal 3.9-4.9 [facility] Comment on above: Order Comment: Speci men Type: BLOOD SPECIMENOrdering Facility: [facility] Address: [address] [place] [address] Performed By: #### 2 4323-8, LIPNF, 97066-2, 3016-3 ####[facility] LABCLIA [id number] [place] [address] [place] ALP [Catalytic activity/Vol] 68 U/L Normal 34-123 [facility] Comment on above: Order Comment: Speci men Type: BLOOD SPECIMENOrdering Facility: [facility] Address: [address] [place] [address] Performed By: #### 2 4323-8, LIPNF, 21444-3, 6-3 ####[facility] LABCLIA [id number] [address] [address] [place] ALT [Catalytic activity/Vol] 16 U/L Normal 7-38 [facility] Comment on above: Order Comment: Speci men Type: BLOOD SPECIMENOrdering Facility: [facility] Address: [address] [place] [address] Performed By: #### 2 4323-8, LIPNF, 70101-7, 6-3 ####[facility] LABIA [id number] [address] [address] [place] Anion gap [Moles/Vol] 12 mmol/L Normal 8-15 [facility] Comment on above: Order Comment: Speci men Type: BLOOD SPECIMENOrdering Facility: [facility] Address: [address] [place] [address] Performed By: #### 2 4323-8, LIPNF, , 6-3 ####[facility] LABIA [id number] [address] [address] [place] AST [Catalytic activity/Vol] 26 U/L Normal 13-35 [facility] Comment on above: Order Comment: Speci men Type: BLOOD SPECIMENOrdering Facility: [facility] Address: [address] [place], [place] [address] Performed By: #### 2 4323-8, LIPNF, , 6-3 ####[facility] LABIA [id number] [address] [address] [place] Bilirubin [Mass/Vol] 0.5 mg/dL Normal 0.2-1.3 [facility] Comment on above: Order Comment: Speci men Type: BLOOD SPECIMENOrdering Facility: [facility] Address: [address] [place], [place] [address] Performed By: #### 2 4323-8, LIPNF, , 3015-3 ####[facility] LABCLIA [id number] [address] [address] [place] Calcium [Mass/Vol] 9.1 mg/dL Normal 8.5-10.2 [facility] Comment on above: Order Comment: Speci men Type: BLOOD SPECIMENOrdering Facility: [facility] Address: [address] [place] [address] Performed By: #### 2 4323-8, LIPNF, , 3015-3 ####[facility] LABIA [id number] [place] [address] [place] Chloride [Moles/Vol] 106 mmol/L Normal 98-107 [facility] Comment on above: Order Comment: Speci men Type: BLOOD SPECIMENOrdering Facility: [facility] Address: [address] [place] [address] Performed By: #### 2 4323-8, LIPNF, , 3015-3 ####[facility] LABIA [id number] [place] [address] [place] CO2 [Moles/Vol] 21 mmol/L Low 22-30 [facility] Comment on above: Order Comment: Speci men Type: BLOOD SPECIMENOrdering Facility: [facility] Address: [address] [place] [address] Performed By: #### 2 4323-8, LIPNF, , 3015-3 ####[facility] LABIA [id number] [address] [address] [place] Creatinine [Mass/Vol] 0.63 mg/dL Normal 0.58-0.96 [facility] Comment on above: Order Comment: Speci men Type: BLOOD SPECIMENOrdering Facility: [facility] Address: [address] [place], [place] [address] Performed By: #### 2 4323-8, LIPNF, , 3016-3 ####[facility] LABCLIA [id number] [place] [address] [place] eGFRcr SerPlBld CKD-EPI 2020 112 mL/min/1.73m??? Normal >=60 [facility] Comment on above: Order Comment: Noni trivedi Type: BLOOD SPECIMENOrdering Facility: [facility] Address: [address] [place] [address] Result Comment: Bety mated Glomerular Filtration Rate [...] actual GFR. Performed By: #### 2 4323-8, LIPANAND, , 3015- ####[facility] LABCLIA [id number] [place] [address] [place] Glucose [Mass/Vol] 88 mg/dL Normal 74-99 [facility] Comment on above: Order Comment: Noni trivedi Type: BLOOD SPECIMENOrdering Facility: [facility] Address: [address] [place] [address] Result Comment: The [place] Diabetes Association (ADA) provides guidance for cutoff [...] Standards of Medical Care in Diabetes 2016, [place] Diabetes Association. Diabetes Care. 2016.39(Suppl 1). Performed By: #### 2 4323-8, LIPNF, , 3015-3 ####[facility] LABCLIA [id number] [address] [address] [place] Potassium [Moles/Vol] 4.2 mmol/L Normal 3.7-5.1 [facility] Comment on above: Order Comment: Speci men Type: BLOOD SPECIMENOrdering Facility: [facility] Address: [address] [place] [address] Performed By: #### 2 4323-8, LIPNF, , 3015-3 ####[facility] LABCLIA [id number] [address] [address] [place] Protein [Mass/Vol] 6.9 g/dL Normal 6.3-8.0 [facility] Comment on above: Order Comment: Speci men Type: BLOOD SPECIMENOrdering Facility: [facility] Address: [address] [place] [address] Performed By: #### 2 4323-8, LIPNF, , 3015-3 ####[facility] LABCLIA [id number] [place] [address] [place] Sodium [Moles/Vol] 139 mmol/L Normal 136-144 [facility] Comment on above: Order Comment: Speci men Type: BLOOD SPECIMENOrdering Facility: [facility] Address: [address] [place] [address] Performed By: #### 2 4323-8, LIPNF, , 3015-3 ####[facility] LABCLIA [id number] [address] [address] [place] Urea nitrogen [Mass/Vol] 15 mg/dL Normal 7-21 [facility] Comment on above: Order Comment: Speci men Type: BLOOD SPECIMENOrdering Facility: [facility] Address: [address] [place], [place] [address] Performed By: #### 2 4323-8, LIPNF, , 3015-3 ####[facility] LABCLIA [id number] [place] [address] [facility] HbA1c (Bld)on 07-13-2025 Average glucose Estimated from glycated hemoglobin (Bld) [Mass/Vol] 111 mg/dL Normal [facility] Comment on above: Order Comment: Noni trivedi Type: BLOOD SPECIMENOrdering Facility: [facility] Address: [address] [place] [address] Result Comment: eAG: (Estimated average glucose) is a calculated value from HgbA1c and is entry level marketing representative of the average blood glucose level in the last 2-3 month period. Performed By: #### 5 5454-3 ####[facility] LABIA [id number] [address] HbA1c (Bld) [Mass fraction] 5.5 % Normal 4.3-5.6 [facility] Comment on above: Order Comment: Noni trivedi Type: BLOOD SPECIMENOrdering Facility: [facility] Address: [address] [place] [address] Result Comment: Amer [place] Diabetes Association guidelines indicate that patients with HgbA1c in the range 5.7-6.4% are at increased risk for development of diabetes, and intervention by lifestyle modification may be beneficial. HgbA1c greater or equal to 6.5% is considered diagnostic of diabetes. Performed By: #### 5 5454-3 ####[facility] LABIA [id number] [address] OF [place] LIPID PANEL, NONFASTINGon Cholesterol [Mass/Vol] 135 mg/dL Normal <200 [facility] Comment on above: Order Comment: Noni trivedi Type: BLOOD SPECIMENOrdering Facility: [facility] Address: [address] [place] [address] Result Comment: <200 mg/dL, Desirable 200-239 mg/dL, Borderline high >239 mg/dL, High Performed By: #### 2 4323-8, LIPNF, 89654-7, 3016-3 ####[facility] LABCLIA [id number] [address] [place] HDL CHOLESTEROL, NF 65 mg/dL Normal >39 [facility] Comment on above: Order Comment: Speci men Type: BLOOD SPECIMENOrdering Facility: [facility] Address: [address] [place] [address] Result Comment: 40-5 9 mg/dL, Acceptable >59 mg/dL, High: Negative risk factor for coronary heart disease <40 mg/dL, Low: Positive risk factor for coronary heart disease Performed By: #### 2 4323-8, LIPNF, 58233-3, 3015-3 ####[facility] LABCLIA [id number] [address] OF [facility] LDL CHOLESTEROL CALCULATED, NF 59 mg/dL Normal <100 [facility] Comment on above: Order Comment: Noni shikha Type: BLOOD SPECIMENOrdering Facility: [facility] Address: [address] [place] [address] Result Comment: <100 mg/dL, Optimal 100-129 mg/dL, Near optimal/above optimal 130-159 mg/dL, Borderline high 160-189 mg/dL, High >189 mg/dL, Very high Secondary prevention optimal LDL Cholesterol levels are recommended to be <70 mg/dL LDL cholesterol is calculated using the Stone-NIH equation. Performed By: #### 2 4323-8, LIPNF, 23642-1, 3015-3 ####[facility] LABCLIA [id number] [address] [place] LDL/HDL RATIO, NF 0.91 mg/dL Normal <2.54 [facility] Comment on above: Order Comment: Speci shikha Type: BLOOD SPECIMENOrdering Facility: [facility] Address: [address] [place] [address] Result Comment: Betito bobo: 1. National Cholesterol Education Program ATP III Guideline At-A-Glance Quick Desk Reference: National Heart, Lung, and Blood [place]. National Institutes of Health. 2001: NIH Publication No. 01-3305. 2. An International Atherosclerosis Society position paper: global recommendations for the management of dyslipidemia: executive summary, Atherosclerosis. 2014: 232(2):410-413. Performed By: #### 2 4323-8, LIPNF, 02516-2, 3015-3 ####[facility] LABCLIA [id number] [address] [address] [place] NON HDL CHOL, NF 70 mg/dL Normal <130 [facility] Comment on above: Order Comment: Speci men Type: BLOOD SPECIMENOrdering Facility: [facility] Address: [address] [place] [address] Result Comment: <130 mg/dL, Optimal 130-159 mg/dL, Near optimal/above optimal 160-189 mg/dL, Borderline high 190-219 mg/dL, High >219 mg/dL, Very high Secondary prevention optimal non HDL Cholesterol levels are recommended to be <100 mg/dL Performed By: #### 2 4323-8, LIPNF, , 3015-3 ####[facility] LABCLIA [id number] [place] [address] [place] T CHOL/HDL RATIO NF 2.08 mg/dL Normal <5.10 [facility] Comment on above: Order Comment: Speci men Type: BLOOD SPECIMENOrdering Facility: [facility] Address: [address] [place] [address] Performed By: #### 2 4323-8, LIPNF, , 3015-3 ####[facility] LABCLIA [id number] [place] [address] [place] TRIGLYCERIDES, NF 51 mg/dL Normal <150 [facility] Comment on above: Order Comment: Speci men Type: BLOOD SPECIMENOrdering Facility: [facility] Address: [address] [place] [address] Result Comment: <150 mg/dL, Normal 150-199 mg/dL, Borderline high 200-499 mg/dL, High >499 mg/dL, Very high Performed By: #### 2 4323-8, LIPNF, , 3015-3 ####[facility] LABIA [id number] [place] [address] [place] VLDL CHOLESTEROL, NF 7 mg/dL Normal <30 [facility] Comment on above: Order Comment: Noni trivedi Type: BLOOD SPECIMENOrdering Facility: [facility] Address: [address] [place] [address] Performed By: #### 2 4323-8, LIPANAND, 47713-7, 3016-3 ####[facility] LABIA [id number] [place] [address] [place] Magnesium SerPl-mCncon 07-13 Magnesium [Mass/Vol] 2.1 mg/dL Normal 1.7-2.3 [facility] Comment on above: Order Comment: Carolinai shikha Type: BLOOD SPECIMENOrdering Facility: [facility] Address: [address] [place] [address] Performed By: #### 2 4323-8, LIPANAND, 36877-2, 3016-3 ####[facility] [id number] [place] [address] [place] PT panel Coag (PPP)on 2024 INR Coag (PPP) [Relative time] 1.2 {INR} Normal 0.9-1.3 [facility] Comment on above: Order Comment: Noni trivedi Type: BLOOD SPECIMENOrdering Facility: [facility] Address: [address] [place] [address] Result Comment: Sasha min K Antagonist (VKA) Therapeutic Range: INR 2 to 3 (Target INR of 2.5) Note: For patients treated with VKA drugs, such as warfarin, the [place] [employer] 2012 Guideline recommends [...] GH, et al. Chest 2012, 141:7S-47S Luzmaria FRANCIS, et al. [facility] 2017, 70: 252-289 Performed By: #### 3 4528-0 ####[facility] LABIA [id number] [place] [address] [place] PT Coag (PPP) [Time] 12.4 s Normal 9.7-13.0 [facility] Comment on above: Order Comment: Speci men Type: BLOOD SPECIMENOrdering Facility: [facility] Address: [address] [place] [address] Performed By: #### 3 4528-0 ####[facility] [id number] [place] [address] [place] TSH SerPl-aCncon 07-13-2025 TSH Qn 1.390 m[IU]/L Normal 0.270-4.200 [facility] Comment on above: Order Comment: Speci men Type: BLOOD SPECIMENOrdering Facility: [facility] Address: [address] [place] [address] Result Comment: If t he patient is , TSH reference range varies by gestational period: First Trimester (weeks 9-12): 0.180-2.990 mIU/L Second Trimester: 0.110-3.980 mIU/L Third Trimester: 0.480-4.710 mIU/L Ziggy Murillo, et al. A Practical Approach for the Verifications and Determination of Site- and Trimester-Specific Reference Intervals for Thyroid Function tests in . Thyroid, 2019:29:3:412-420. Live Shaw, et al. 2017 Guidelines of the [place] Thyroid Association for the Diagnosis and Management of Thyroid Disease during and the . Thyroid, 2017:27:3:315-389. Performed By: #### 2 4323-8, LIPNF, 42145-4, 3016-3 ####[facility] LABCLIA [id number] [facility] HEALTH SERVICESJens [facility] [place] [id number] [place] Vit B12 [facility] Arizonagarc[facility] -09-2 025 Cobalamin (Vitamin B12) [Mass/Vol] 954 pg/mL Normal 232-1245 [facility] Comment on above: Order Comment: Speci men Type: BLOOD SPECIMENOrdering Facility: [facility] Address: [address] [place] [address] Performed By: #### 2 132-9 ####[facility] LABCLIA [id number] [facility] SERVICESJens [facility] [place] [address] [place] CNPCarmen 06-09-2025 CNPN Telephone (PHARMN) CHAVO CAVANAUGH ([id number]) 1980 F Date Time Provider Department 06/09/25 PHARMACIST PHARMN During your visit today, we recorded the following information about you: eSra (Inbound Call Center Agent)Bernardo 06/09/2025 9:32 AM Signed Received fax from [facility] with INR results for patient. Patient tested on 06/08/2025 and the INR result was 1.2. Fax can be found under scanned documents as miscellaneous lab result. It may take a few minutes to transfer from [employer]. PT INR (no units) Date Value 06/08/2025 1.2 05/31/2025 2.2 05/24/2025 1.1 Bernardo Zamora, Head Of Conservation (scutcher tender) Pharmacy Anticoagulation Clinic Jackson (Inbound Call Center Agent)Maine 06/09/2025 11:35 AM Signed Received call from Jane with [employer]) for patient. Patient tested on Date: 06/08 with an out of range INR result of 1.2. PT INR (no units) Date Value 06/08/2025 1.2 05/31/2025 2.2 05/24/2025 1.1 [place] Paz (Inbound Call Center Agent) Milla Douglas, [facility] 06/09/2025 5:05 PM Signed [facility]ticoagulation [facility] Anticoagulation Episode Summary Anticoagulation Care Providers Provider Role Specialty Phone number Oneyda Recinos MD Referring Cardiology [phone] Chavo Cavanaugh is a 44 year old year old [...] CREAT 0.77 07/14/2024 No components found for: TBILI3 Lab Results Component Value Date ALT 17 [...] unspecified type (hcc) Paroxysmal atrial fibrillation (hcc) USP (current) use of anticoagulants Anticoagulation Episode Summary Current INR goal: 2.0-3.0 Assessment: INR result of 1.2 is SUBtherapeutic due to: unknown cause - did not speak to patient Again left a pleading message to pt to Call [facility] at [phone] and at least leave a voicemail with [...] every day Left voice message And sent ODINhart message Advised patient to increase dose for 2 days only then resume weekly regimen as noted above - made dosing decision based off of most recent dosing we had in chart (7.5mg daily) Next home INR check scheduled on 06/15/2025 Advised pt to Call [facility] at [phone] to confirm dosing and schedule follow-up Milla Douglas RP Clinical Pharmacist, Pharmacy Anticoagulation Clinic Pharm[facility] Pager: [phone]. Milla Douglas RPh 06/15/2025 2:40 PM Signed [...] Kim, RPh 06/22/2025 4:11 PM Signed Chavo Cavanaugh was called and reminded to test INR today or as soon as possible. Trino Subramanian (Inbound Call Center Agent)Maine 06/30/2025 3:35 PM Signed No return call from patient. Trino added to DC list: Letter sent. FINAL ATTEMPT letter sent at this time. If no response from patient within 3 weeks of letter being sent, patient will be discharged from PAC at that time. Will also route to referring MD as FYI and to see if office can assist in reaching patient. [place] Paz CPhT (Head Of Conservation) Pharmacy Anticoagulation Clinic Allergies As of Date: 06/09/2025 Noted Allergy Reaction METFORMIN 01/23/2022 6 - Diarrhea NSAIDS (NON-STEROIDAL ANTI-INFLAM*01/13/20 24 15 - (more content not included)... Normal [facility] INRon 06-08-2025 INR Coag (Bld) [Relative time] 1.2 {INR} [facility] CNPNon 06-06-2025 CNPN Telephone (CARDMN) CHAVO CAVANAUGH ([id number]) 1980 F Date Time Provider Department 06/06/25 [...] TC ----- Message ----- From: Milla Douglas [facility] Sent: 06/02/2025 3:28 PM EDT To: Oneyda Recinos MD Hi Dr. Recinos, This pt is on warfarin and has a home meter through the company that we use at the [facility]. We are currently managing her [...] your department could assist. Thanks! Milla Douglas, PharmJumana Ritter RN 06/06/2025 12:51 PM Signed Called patient, message left to call back stressing importance of reason for call to check in on her. Page me [phone] when she calls back. LALI Wilkins Shannon, RN 06/06/2025 1:07 PM Signed Spoke with patient, she often works long hours and has trouble answering phone at work. Last week 05/31/25 her INR was 2.2 and she is due to check tomorrow. She prefers [facility] send her [employer] messages when they cannot reach her by phone. 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 Normal [facility] CNPNon 05-25-2025 CNPN Telephone (PHARMN) CHAVO CAVANAUGH ([id number]) 1980 F Date Time Provider Department 05/25/25 PHARMACIST PHARMN During your visit today, we recorded the following information about you: Siobhan Calloway RN 05/25/2025 9:03 AM Signed mdINR left a voicemail advising patient's INR was 1.1 on 05/24/2025. Results have not yet been received into [employer]. PT INR (no units) Date Value 05/01/2025 1.2 04/06/2025 1.8 03/22/2025 2.7 Bozena Calloway RN Pharmacy Anticoagulation Clinic Sera (Inbound Call Center Agent)Bernardo 05/25/2025 9:35 AM Signed Received fax from [facility] with INR results for patient. Patient tested on 05/24/2025 and the INR result was 1.1. Fax can be found under scanned documents as miscellaneous lab result. It may take a few minutes to transfer from [employer]. PT INR (no units) Date Value 05/24/2025 1.1 05/01/2025 1.2 04/06/2025 1.8 Bernardo Zamora Head Of Conservation (scutcher tender) Pharmacy Anticoagulation Clinic Milla Douglas [facility] 05/25/2025 5:19 PM Signed [facility] Ambulatory Pharmacy Anticoagulation Clinic Anticoagulation Episode Summary Anticoagulation Care Providers Provider Role Specialty Phone number Oneyda Recinos MD Referring Cardiology [phone] Chavo Cavanaugh is a 44 year old year old [...] CREAT 0.77 07/14/2024 No components found for: TBILI3 Lab Results Component Value Date ALT 17 [...] further Will call again tomorrow Milla Douglas [facility] Clinical Pharmacist, Pharmacy Anticoagulation Clinic Pharmacy Anticoagulation Clinic Pager: [phone]. Allergies As of Date: 05/25/2025 Noted Allergy Reaction METFORMIN 01/23/2022 6 - Diarrhea NSAIDS (NON-STEROIDAL ANTI-INFLAM*01/13/20 24 15 - Contraindication-Med ical Chow* Comments: S/p gastric bypass, relative contraindication to NSAIDs Date Reviewed: 03/08/2025 Reviewed by: Justo Gerber RN - Fully Assessed Reason for Visit: Anticoagulation [8] Primary Visit Diagnosis:Atrial fibrillation, unspecified type (HCC) [I48.91] Other Visit Diagnoses:Paroxysmal atrial fibrillation (HCC) [I48.0] USP (current) use of anticoagulants [Z79.01] Order(s):INR [[id number]] Order #: [id number] Prescriptions as of 08/08/2025 - pantoprazole DR [...] ORAL) Take (more content not included)... [facility] PANTERA Telephone (PHARMN) CHAVO CAVANAUGH ([id number]) 1980 F Date Time Provider Department 05/01/25 PHARMACIST PHARMN During your visit today, we recorded the following information about you: Sera (Inbound Call Center Agent)Bernardo 05/01/2025 2:35 PM Signed Received fax from [facility] with INR results for patient. Patient tested on 05/01/2025 and the INR result was 1.2. Fax can be found under scanned documents as miscellaneous lab result. [facility] PT INR (no units) Date Value 05/01/2025 1.2 04/06/2025 1.8 03/22/2025 2.7 Bernardo Zamora, Head Of Conservation (scutcher tender) Pharmacy Anticoagulation Clinic Jumana Moe [facility] 05/01/2025 2:40 PM Signed [facility] Ambulatory Pharmacy Anticoagulation Clinic Anticoagulation Episode Summary Anticoagulation Care Providers Provider Role Specialty Phone number Oneyda Recinos MD Referring Cardiology [phone] Chavo Cavanaugh is a 44 year old year old [...] CREAT 0.77 07/14/2024 No components found for: TBILI3 Lab Results Component Value Date ALT 17 [...] unspecified type (hcc) Paroxysmal atrial fibrillation (hcc) USP (current) use of anticoagulants Anticoagulation Episode Summary [...] missed any doses of warfarin. Jumana Moe [facility] Clinical Pharmacist, Pharmacy Anticoagulation Clinic Pharmacy Anticoagulation Clinic Pager: [phone]. Sera (Inbound Call Center AgentBernardo Ramon 05/02/2025 9:02 AM Signed [facility] called regarding results. Result has been addressed below. Bernardo Zamora (Inbound Call Center Agent) Rosa Moore RPh 05/08/2025 3:49 PM Signed [...] Thursday, reports will test this Thursday Rosa Moore, [facility] Milla Douglas, [facility] 05/10/2025 4:32 PM Signed No INR result, will push out one week Earlene Chavez [place] [facility] 05/17/2025 5:09 PM Signed Chavo Jens Cavanaugh was called and reminded to test INR today or as soon as possible. Left a vmx Milla Douglas [facility] Allergies As of Date: 05/01/2025 Noted Allergy Reaction METFORMIN 01/23/2022 6 - Diarrhea NSAIDS (NON-STEROIDAL ANTI-INFLAM*01/13/20 15 - Contraindication-Med ical Chow* Comments: S/p gastric bypass, relative contraindication to NSAIDs Date Reviewed: 03/08/2025 Reviewed by: Justo Gerber RN - Fully Assessed Reason for Visit: Anticoagulation Telephone Fu [148] Primary Visit Diagnosis:Atrial fibrillation, unspecified type (HCC) [I48.91] Other Visit Diagnoses:Paroxysmal atrial fibrillation (HCC) [I48.0] 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 anticoagulants [Z79.01] Order(s (more content not included)... Normal [facility] INRon 05-01-2025 INR Coag (Bld) [Relative time] 1.2 {INR} [facility] DEW05ma 04-19-2025 ECG01 Ventricular Rate : 75 BPM Atrial Rate : 75 BPM P-R Interval : 148 ms QRS Duration : 130 ms Q-T Interval : 426 ms QTC Calculation(Bazett) : 475 ms Calculated P [place] : 62 degrees Calculated R [place] : 56 degrees Calculated T [place] : 151 degrees NORMAL SINUS RHYTHM COMPLETE LEFT BUNDLE BRANCH BLOCK ABNORMAL ECG Confirmed by MD RANDALL QARAB ([id number]) on 05/03/2025 3:35:24 PM NAME : CHAVO CAVANAUGH PID : [id number] : 1980 Gender : Female Race : ORD : Procedure Date : Apr 19 2025 15:33:20 Edit Date : May 03 2025 15:35:28 Diagnosis: NORMAL SINUS RHYTHM COMPLETE LEFT BUNDLE BRANCH BLOCK ABNORMAL ECG Confirmed by MD RANDALL QARAB ([id number]) on 05/03/2025 3:35:24 PM Test Reason : Location : 136 : [place] Overread By : MD RANDALL QARAB Edited By : MD RANDALL QARAB Referred By : ONEYDA RECINOS Acquired by : Marylu Hazel [facility] 04-06-2025 CNPN Telephone (PHARMN) ALBAROCHAVO BENNETT ([id number]) 1980 F Date Time Provider Department 04/06/25 PHARMACIST PHARMN During your visit today, we recorded the following information about you: Sera (Inbound Call Center Agent)Bernardo 04/06/2025 2:14 PM Signed Received fax from [facility] with INR results for patient. Patient tested on 04/06/2025 and the INR result was 1.8. Fax can be found under scanned documents as miscellaneous lab result. It may take a few minutes to transfer from [employer]. PT INR (no units) Date Value 04/06/2025 1.8 03/22/2025 2.7 03/02/2025 1.2 Bernardo Zamora, Head Of Conservation (scutcher tender) [facility] 04/06/2025 2:26 PM Signed [facility] Ambulatory Pharmacy Anticoagulation Clinic Anticoagulation Episode Summary Anticoagulation Care Providers Provider Role Specialty Phone number Oneyda Recinos MD Referring Cardiology [phone] Chavo Phan Mao is a 44 year old year [...] CREAT 0.77 07/14/2024 No components found for: TBILI3 Lab Results Component Value Date ALT 17 [...] day Left voice message And will send 99.cohart message Advised patient to increase dose for [...] missed any doses of warfarin. Bren Hernandez [facility] Clinical Pharmacist, Pharmacy Anticoagulation Clinic Pharmacy Anticoagulation Clinic Pager: [phone]. Milla Douglas RPh 04/14/2025 9:55 AM Signed [...] on an injectable anticoagulant - No Milla Oresteslaura, [facility] Oresteslaura Milla, [facility] 04/20/2025 9:21 AM Signed Patient was due [...] on an injectable anticoagulant - No Milla Oresteslauar, [facility] Oresteslaura Milla, [facility] 04/27/2025 3:11 PM Signed Chavo Cavanaugh was called and reminded to test INR today or as soon as possible. Left a vmx. Milla Douglas [facility] Allergies As of Date: 04/06/2025 Noted Allergy Reaction METFORMIN 01/23/2022 6 - Diarrhea NSAIDS (NON-STEROIDAL ANTI-INFLAM*01/13/20 15 - Contraindication-Med ical Chow* Comments: S/p gastric bypass, relative contraindication to NSAIDs Date Reviewed: 03/08/2025 Reviewed by: Justo Gerber, LALI - Fully Assessed Reason for Visit: Anticoagulation Telephone Fu [148] Order(s):INR [[id number]] Order #: [id number] Prescriptions as of 04/27/2025 - pantoprazole DR (PROTONIX) 40 mg tablet Take 1 tablet by mouth two times a day. - sucralfate (CARAFATE) 1 gram tablet Take 1 tablet by mouth four times daily. - doxycycline (VIBRA-TABS) 100 mg tablet TAKE 1/2 (ONE-HALF) OF A TABLET BY MOUTH TWICE DAILY - warfarin (C (more content not included)... Normal [facility] INRon 04-06-2025 INR Coag (Bld) [Relative time] 1.8 {INR} [facility] CNPNon 03-23-2025 CNPN Telephone (PHARMN) CHAVO CAVANAUGH ([id number]) 1980 F Date Time Provider Department 03/23/25 [...] Bozena Calloway RN [facility] 03/24/2025 8:43 AM Signed [facility] Pharm[facility] Anticoagulation Clinic Anticoagulation Episode Summary Anticoagulation Care Providers Provider Role Specialty Phone number Oneyda Recinos MD Referring Cardiology [phone] Chavo Cavanauhg is a 44 year old year old [...] CREAT 0.77 07/14/2024 No components found for: TBILI3 Lab Results Component Value Date ALT 17 [...] Pharmacy Anticoagulation Clinic Pharmacy Anticoagulation Clinic Pager: [phone]. Milla Douglas RPh 03/29/2025 2:59 PM Signed [...] [place], RPh 04/05/2025 3:20 PM Signed Chavo Cavanaugh was called and reminded to test INR today or as soon as possible. Left a vmx. Milla Douglas [facility] Allergies As of Date: 03/23/2025 Noted Allergy [...] terminal (current) use of anticoagulants [Z79.01] Order(s):INR [[id number]] Order #: [id number] Prescriptions as of 04/05/2025 - doxycycline (VIBRA-TABS) [...] B-12) 1,0 (more content not included)... Normal [facility] Basic metabolic 2000 panelon 03-22-2025 Anion gap [Moles/Vol] 11 mmol/L Normal 8-15 [facility] Comment on above: Order Comment: Speci men Type: BLOOD SPECIMENOrdering Facility: [facility] Address: [facility] [place] [address] Performed By: #### 2 4321-2, 55491-5 ####[facility] [id number] [place] [address] [place] Calcium [Mass/Vol] 9.4 mg/dL Normal 8.5-10.2 [facility] Comment on above: Order Comment: Speci men Type: BLOOD SPECIMENOrdering Facility: [facility] Address: [address] [place] [address] Performed By: #### 2 432-2, ####[facility] [id number] [place] [address] [place] Chloride [Moles/Vol] 105 mmol/L Normal 98-107 [facility] Comment on above: Order Comment: Speci men Type: BLOOD SPECIMENOrdering Facility: [facility] Address: [address] [place] [address] Performed By: #### 2 432-2, ####[facility] [id number] [place] [address] [place] CO2 [Moles/Vol] 23 mmol/L Normal 22-30 [facility] Comment on above: Order Comment: Speci men Type: BLOOD SPECIMENOrdering Facility: [facility] Address: [address] [place] [address] Performed By: #### 2 2, ####[facility] [id number] [place] [address] [place] Creatinine [Mass/Vol] 0.61 mg/dL Normal 0.58-0.96 [facility] Comment on above: Order Comment: Speci men Type: BLOOD SPECIMENOrdering Facility: [facility] Address: [address] [place] [address] Performed By: #### 2 432-2, ####[facility] [id number] [place] [address] [place] Creatinine and Glomerular filtration rate.predicted panel (S/P/Bld) 113 mL/min/1.73m??? Normal >=60 [facility] Comment on above: Order Comment: Speci men Type: BLOOD SPECIMENOrdering Facility: [facility] Address: [address] [place] [address] Result Comment: Bety mated Glomerular Filtration Rate [...] reflect actual GFR. Performed By: #### 2 4321-2, ####[facility] [id number] [place] [address] [place] Glucose [Mass/Vol] 73 mg/dL Low 74-99 [facility] Comment on above: Order Comment: Noni trivedi Type: BLOOD SPECIMENOrdering Facility: [facility] Address: [address] [place] [address] Result Comment: The [place] Diabetes Association (ADA) provides guidance for cutoff [...] Standards of Medical Care in Diabetes 2016, [place] Diabetes Association. Diabetes Care. 2016.39(Suppl 1). Performed By: #### 2 4321-2, ####[facility] [id number] [place] [address] [place] Potassium [Moles/Vol] 3.4 mmol/L Low 3.7-5.1 [facility] Comment on above: Order Comment: Noni trivedi Type: BLOOD SPECIMENOrdering Facility: [facility] Address: [address] [place] [id number] Performed By: #### 2 4321-2, 99986-5 ####[facility] REYNAWNCLIA [id number] [place] [address] [place] Sodium [Moles/Vol] 139 mmol/L Normal 136-144 [facility] Comment on above: Order Comment: Speci men Type: BLOOD SPECIMENOrdering Facility: [facility] Address: [address] [place], [place] [address] [address] Performed By: #### 2 4321-2, ####[facility] NAHEDPHILADELPHIANCLIA [id number] [place] [address] [place] Urea nitrogen [Mass/Vol] 8 mg/dL Normal 7-21 [facility] Comment on above: Order Comment: Speci men Type: BLOOD SPECIMENOrdering Facility: [facility] Address: [address] [place] [address] [place] [address] Performed By: #### 2 4321-2, ####[facility] NAHEDPHILADELPHIANCLIA [id number] [place] [address] [place] INRon 03-22-2025 INR Coag (Bld) [Relative time] 2.7 {INR} [facility] Magnesium SerPl-mCncon 03-22 Magnesium [Mass/Vol] 1.9 mg/dL Normal 1.7-2.3 [facility] Comment on above: Order Comment: Speci men Type: BLOOD SPECIMENOrdering Facility: [facility] Address: [facility] [place] [id number] Performed By: #### 2 4321-2, ####[facility]CL[facility] [id number] [place] [address] [place] ANES POSTPROC EVALon 025 ANES POSTPROC EVAL HNO ID: [id number] Author: ELLEN BALDWIN DO Service: Anesthesiology Author Type: Anesthesiologist Type: Anesthesia Postprocedure Evaluation Filed: 03/08/2025 12:40 Note Text: POST ANESTHESIA EVALUATION NOTE : 1980 Procedure Summary Date: 03/08/25 Room / Location: [facility] Endoscopy Anesthesia Start: 1126 Anesthesia Stop: 1149 Procedure: EGD DIAGNOSTIC Diagnosis: Marginal ulcer S/P gastric bypass (Established peptic ulcer) Scheduled Providers: Maryana Zelaya MD; Paige Cortes APRN.CRNA; Ellen Baldwin DO Responsible Provider: Ellen Baldwin DO Anesthesia Type: MAC ASA Status: 3 [...] team. Anesthesia Observations No Documentation SIGNATURE: Ellen Baldwin DO PATIENT NAME: Chavo Cavanaugh DATE: March 08, 2025 TIME: 12:40 PM CSN: [id number] Normal [facility] ANES PRE-OPon 03-08-2025 ANES PRE-OP HNO ID: [id number] Author: ELLEN BALDWIN DO Service: Anesthesiology Author Type: Anesthesiologist Type: Anesthesia Preprocedure Evaluation Filed: 03/08/2025 11:11 Note Text: ANESTHESIOLOGY DAY OF SURGERY NOTE : 1980 Procedure Information Date/Time: 03/08/25 1245 Scheduled providers: Maryana Zelaya MD; Paige Cortes APRN.CRNA; Ellen Baldwin DO Procedure: EGD DIAGNOSTIC Location: [facility] Endoscopy Estimated body mass index is 24.45 kg/m? as calculated from the following: Height as of 02/23/25: 172.7 cm (5' 8). Weight as of 02/23/25: 72.9 kg (160 lb 12.8 oz). Most recent hematocrit and potassium results: Hematocrit 39.6 01/12/2025 Potassium 4.2 01/12/2025 Relevant Problems ANESTHESIA (+) QUINTON (obstructive sleep apnea) CARDIO (+) Atrial fibrillation (HCC) (+) Left bundle branch block (+) Paroxysmal atrial fibrillation (HCC) (+) Zcfne-Afovcjhhg-Moqe e (WPW) syndrome NEURO-PSYCH (+) History of [...] and consent discussed: yes. Patient / Responsible Libertarian agrees to proceed: yes Patient / Surrogate [...] within 48 hours of Surgery/Procedure. SIGNATURE: Ellen Baldwin DO PATIENT NAME: Chavo Cavanaugh DATE: March 08, 2025 TIME: 11:07 AM CSN: [id number] Normal [facility] EGD Study observation [place] 03-08-2025 [facility] Gastrointestinal Endoscopy Patient Name: Chavo Cavanaugh Procedure Date: 03/08/2025 11:14 AM Date of : 1980 Admit Type: Outpatient Age: 44 Room: [facility] Gender: Female Note Status: Finalized Attending MD: Maryana Zelaya MD, [id number] Procedure: Upper GI endoscopy Indications: Peptic ulcer Providers: Maryana Zelaya MD Patient Profile: Refer to note in patient chart for documentation of history and physical. She has had previous. Referring Physician: Esperanza Mercer (Referring MD) Medicines: See the Anesthesia note for documentation of the administered medications Complications: No immediate complications. Requesting Provider: Procedure: Pre-Anesthesia Assessment: - Monitored anesthesia care under the supervision of a FOOD SERVICE LEAD was determined to be medically necessary for [...] available appointment. Procedure Code(s): --- Professional --- 34014, Esophagogastroduoden oscopy, flexible, transoral; with biopsy, single or multiple Diagnosis Code(s): --- Professional --- K27.9, Peptic ulcer, site unspecified, unspecified as acute or chronic, without hemorrhage or perforation CPT copyright 2020 [employer]. All rights reserved. The codes documented in this report are preliminary and upon inspector poising review may be revised to meet current compliance requirements. Attending Participation: I personally performed the entire procedure. Scope In: 11:32:59 AM Scope Out: 11:38:22 AM MD Maryana Rehman MD 03/08/2025 11:50:13 AM This report has been signed electronically by Maryana Zelaya MD Number of Addenda: 0 Note Initiated On: 03/08/2025 11:14 AM Estimated Blood Loss: Estimated blood loss was minimal. PROVATION [facility] Radiology Study observation (narrative) [facility] Pathology biopsy report Carson (Tiss)on 03-08-2025 AP DISCLAIMER Normal [facility] Comment on above: Order Comment: Specjose trivedi Type: TISSUE SPECIMEN Ordering Facility: [facility] Address: [address] [place] [address] Result Comment: Ayesha ferrera Developed Test (LDT) Disclaimer: Performance characteristics of immunohistochemical, immunofluorescent, and chromogenic in-situ hybridization tests have been determined by the performing laboratory within [facility] Pathology and Laboratory Medicine Department ([facility], [facility], [facility], [facility], [facility], [facility], or [facility]) in a manner consistent with CLIA [...] appropriately. Performed By: #### 6 6121-5 #### [facility] CLIA [id number] [address] [place] [address] [place] CASE REPORT Normal [facility] Comment on above: Order Comment: Noni trivedi Type: TISSUE SPECIMEN Ordering Facility: [facility] Address: [address] [place] [address] Result Comment: Surg [facility] Pathology Report Case: [id number] Authorizing Provider: Maryana Zelaya MD Collected: 03/08/2025 11:36 AM Ordering Location: [facility] Endoscopy Received: 03/08/2025 01:57 PM Pathologist: Estevan Kinsey MD Specimen: Stomach, Biopsy, Gastric Bx of Marginal Ulcer Performed By: #### 6 6121-5 #### [facility] CLIA [id number] [address] [place] [address] [place] FINAL DIAGNOSIS Normal [facility] Comment on above: Order Comment: Noni trivedi Type: TISSUE SPECIMEN Ordering Facility: [facility] Address: [address] [place] [address] Result Comment: A. S tomach, marginal ulcer, biopsy: - Oxyntic mucosa with reactive epithelial changes - No evidence of H. pylori at 1444 EDT Performed By: #### 6 6121-5 #### [facility] CLIA [id number] [address] [place] [address] [place] FINAL PERFORMING LAB Normal [facility] Comment on above: Order Comment: Speci men Type: TISSUE SPECIMEN Ordering Facility: [facility] Address: [address] [place] [address] Result Comment: Diag nostic interpretation performed at: [facility], [address] [place] [address] CLIA# [id number] Gis Web Developer: Reuben Adame MD Performed By: #### 6 6121-5 #### [facility] CLIA [id number] [address] [place] [address] OF [place] GROSS DESCRIPTION [facility] Comment on above: Order Comment: Speci men Type: TISSUE SPECIMEN Ordering Facility: [facility] Address: [address] [place] [address] Result Comment: Carmen. Dillan mcclure, Biopsy Received in formalin are two pieces of reddy-red, soft tissue aggregating to 0.5 x 0.3 x 0.1 cm. Totally submitted in one cassette. Gross examination performed at [address] March 08, 2025 5:52 PM Performed By: #### 6 6121-5 #### [facility] CLIA [id number] [address] [place] [address] [place] Upper GI endoscopyon 04-2 025 Upper GI endoscopy [facility] Gastrointestinal Endoscopy Patient Name: Chavo Cavanaugh Procedure Date: 03/08/2025 11:14 AM Date of : 1980 Admit Type: Outpatient Age: 44 Room: [facility] Gender: Female Note Status: Finalized Attending MD: Maryana Zelaya MD, [id number] Procedure: Upper GI endoscopy Indications: Peptic ulcer Providers: Maryana Zelaya MD Patient Profile: Refer to note in patient chart for documentation of history and physical. She has had previous. Referring Physician: Esperanza Mercer (Referring MD) Medicines: See the Anesthesia note for documentation of the administered medications Complications: No immediate complications. Requesting Provider: Procedure: Pre-Anesthesia Assessment: - Monitored anesthesia care under the supervision of a FOOD SERVICE LEAD was determined to be medically necessary for [...] available appointment. Procedure Code(s): --- Professional --- 11813, Esophagogastroduoden oscopy, flexible, transoral; with biopsy, single or multiple Diagnosis Code(s): --- Professional --- K27.9, Peptic ulcer, site unspecified, unspecified as acute or chronic, without hemorrhage or perforation CPT copyright 2020 [employer]. All rights reserved. The codes documented in this report are preliminary and upon inspector poising review may be revised to meet current compliance requirements. Attending Participation: I personally performed the entire procedure. Scope In: 11:32:59 AM Scope Out: 11:38:22 AM MD Maryana Rehman MD 03/08/2025 11:50:13 AM This report has been signed electronically by Maryana Zelaya MD Number of Addenda: 0 Note Initiated On: 03/08/2025 11:14 AM Estimated Blood Loss: Estimated blood loss was minimal. Normal [facility] CNPNon 03-03-2025 CNPN Telephone (PHARMN) CHAVO CAVANAUGH ([id number]) 1980 F Date Time Provider Department 03/03/25 PHARMACIST PHARMN During your visit today, we recorded the following information about you: Jackson ([employer])[place] 03/03/2025 9:13 AM Signed PAC received faxed outside lab/home meter result for patient via mdINR from Date: 03/02 . Results have been scanned into patient's chart and are located under 'Scanned Documents'. Please note, may take up to 10 minutes for document to transfer from [employer] to [employer]. PT INR (no units) Date Value 03/02/2025 1.2 02/18/2025 1.5 01/19/2025 2.1 [place] Paz ([employer]) Milla Douglas, [facility] 03/03/2025 3:27 PM Signed [facility] Pharmacy Anticoagulation Clinic Anticoagulation Episode Summary Anticoagulation Care Providers Provider Role Specialty Phone number Oneyda Recinos MD Referring Cardiology [phone] Chavo Cavanaugh is a 44 year old year old [...] CREAT 0.69 03/03/2024 No components found for: TBILI3 Lab Results Component Value Date ALT 17 [...] Advised pt to Call Coumadin Clinic at [phone] to confirm dosing and follow-up Will attempt to call again next business day Milla Douglas [facility] Clinical Pharmacist, Pharmacy Anticoagulation Clinic Pharmacy Anticoagulation Clinic Pager: [phone]. Sera ([employer]ora MediaBernardo Ramon 03/03/2025 3:38 PM Signed Patient called regarding upcoming procedure and dosing instructions. Patient stated she stopped warfarin per paperwork 02/28/2025. Patient has procedure 03/08. Patient transferred to [facility] to discuss further. Bernardo Zamora (Inbound Call Center Agent) Milla Douglas logan 03/03/2025 3:51 PM Signed Stp, she has been off of warfarin since 02/28 for upcoming colonoscopy next Thu, prior to 03/02 INR pt was taking 7.5mg daily. Advised pt to take 10mg Thu and Th post colonoscopy and then resume 7.5mg daily. Advised pt to test INR 6/10. Will f/u at that time- pt requests calls after 3:30pm. Earlene Chavez U[place] [facility] 03/15/2025 4:05 PM Signed Called and stp re: INR overdue. Pt has been of of warfarin since 02/28 d/t colonoscopy and dental procedure. Pt states he doctor okay'd this. Advised pt to resume warfarin and take 10mg , Thu, Sat/ 7.5mg SunMon and test on . Patient verbalized understanding and agrees with the plan. Earlene Chavez Ulyana [facility] 03/22/2025 8:38 AM Signed Patient was due [...] Date Reviewed: 02/23/2025 Reviewed by: Latoya Ferrari APRN.WATER RESOURCE PROJECT MANAGER - Fully Assessed Reason for Visit: Anticoagulation [8] Primary Visit Diagnosis:Atrial fibrillation, unspecified type (HCC) [I48.91] Ot (more content not included)... Normal [facility] 03-02-2025 PANTERA Telephone (SARAI) CHAVO CAVANAUGH ([id number]) 1980 F Date Time Provider Department 03/02/25 PHARMACIST PHARMN During your visit today, we recorded the following information about you: Jackson (Inbound Call Center Agent)[place] 03/02/2025 11:48 AM Signed Patient's PCP, Leonie Marcial CNP, called and advised patient is having 2 teeth extracted and DDS wanted to hold warfarin. She stated she thought she'd reach out to PAC for our input as we manage patient's warfarin. PCP can be reached at [phone] to discuss what she should put on form for DDS. [place] Paz CPhT (Head Of Conservation) Pharmacy Anticoagulation Clinic Bren Hernandez [facility] 03/02/2025 12:26 PM Signed PAC is not able to authorize dental clearance. This must be done by the primary care team. Generally, guidelines recommend that warfarin does not need to be held for simple dental extractions of up to 2 teeth but holding anticoagulation is at the discretion of the patient's physician and the dentist performing the procedure. The summary statement from the [employer] is as follows: There is general agreement that in most cases, treatment regimens with older anticoagulants (e.g., warfarin) and antiplatelet agents (e.g., clopidogrel, ticlopidine, prasugrel, ticagrelor, and/or aspirin) should not be altered before dental procedures. The risks of stopping or reducing these medication regimens (i.e., thromboembolism, stroke, IN) far outweigh the consequences of prolonged bleeding, which can be controlled with local measures. Evidence noted by the ADA includes Based on a literature review, a 2016 Clinical Practice Statement from the [place] [employer] determined that moderately invasive oral surgery (defined as uncomplicated tooth extraction) is safe with an INR of 3.5, with some experts stating that it is safe up to 4.0.17 A 2008 systematic review and meta-analysis by Shanon et al.44 found that although the risks of hemorrhage and thromboembolism are reduced at an INR range of 2 to 3, ratios moderately higher than this range appeared to be safe and more effective than subtherapeutic ratios. Reviewed above with GENIE Hadley. Advised that she can discuss with the patient's dentist and let PAC know if pt needs to hold warfarin or not. Yissel Marcial APRN.GENIE 03/02/2025 12:26 PM Signed Please let patient know that the Coumadin clinic said that they do not recommend holding warfarin/Coumadin for 2 or less simple extractions. I will send that note to the [place] [facility]. I will send a prescription for amoxicillin 4 tablets all at once 1 hour before her dental extraction. Just as a precaution for her implanted defibrillator. Sent to [facility]. Janelle Oconnell MA 03/02/2025 12:30 PM Signed Left message for patient to return call and speak with a triage nurse Christa Case Beth, LPN 03/02/2025 12:38 PM Signed Patient returned call and went over notes below from Bertha Marcial GRAIN TRADER with understanding. Aware rx sent to the pharmacy. Allergies As of Date: 03/02/2025 Noted Allergy Reaction METFORMIN 01/23/2022 6 - Diarrhea NSAIDS (NON-STEROIDAL ANTI-INFLAM*01/13/20 24 15 - Contraindication-Med ical Chow* Comments: S/p gastric bypass, relative contraindication to NSAIDs Date Reviewed: 02/23/2025 Reviewed by: Latoya Ferrari APRN.WATER RESOURCE PROJECT MANAGER - Fully Assessed Reason for Visit: Patient Update [1234] Primary Visit Diagnosis:ICD (implantable cardioverter-defibri llator) in place [Z95.810] Order(s):Order #: [id number] Prescriptions as of 03/02/2025 - amoxicillin (AMOXIL) [...] Of Date (more content not included)... Normal [facility] INRon 03-02-2025 INR Coag (Bld) [Relative time] 1.2 {INR} [facility] HISTORY PHYSICALon HISTORY PHYSICAL HNO ID: [id number] Author: LATOYA FERRARI APRN.GENIE Service: ? Author Type: Nurse Practitioner Type: H&P Filed: 02/23/2025 10:00 Note Text: [facility] Pre[facility]Anesthesia [facility] HISTORY AND PHYSICAL EXAMINATION SERVICE DATE: 02/23/2025 SERVICE TIME: 9:59 AM PRIMARY CARE PHYSICIAN: Yissel Marcial APRN.WATER RESOURCE PROJECT MANAGER Assessment Patient has the following medical conditions which may affect vickie-operative course: ICD (implantable cardioverter-defibri llator) in place Assessment: s/p 2013 ICD placement and replaced 2022 EF 70%, Pt has 59% battery life remaining. Surgery is above umbilicus, NO pacemaker function programming necessary per CIED algorithm 02/07/2025 ICD device check View Cardiac Data and Report - Defibrillator [ID [id number]] Paroxysmal atrial fibrillation (HCC) Assessment: s/p ablation 2013, last known episode 06/2022 Taking metoprolol and sotalol and coumadin, received pre-op instructions to hold 5 days, pt verbalized understanding. Denies any recent palpitations Office Visit on 09/07/2024 Vlpiq-Fsqfzuyyz-Ekcc e (WPW) syndrome Assessment: s/p ablation 2013 [...] have a large neck STOP-Bang Score: 0 [id number] Score: CHF history: Yes Stroke/TIA/thromboem bolism history: No Diabetes history: No [id number] Score: I - PHYSICAL EVALUATION AIRWAY Patient [...] in this encounter. REASON FOR VISIT: Chavo Cavanaugh is a 44 year old female who is scheduled for * No surgery found * at the request of Dr. Maryana Zelaya for consultation. My final recommendation will be [...] time) CHIEF COMPLAINT: Pre-op exam HPI: Chavo Cavanaugh is a 44 year old seen for PAC due to scheduled above surgery because h/o marginal ulcer that complicated gastric bypass surgery. REVIEW OF SYSTEMS: General: No weight loss, malaise or fevers. Neurological: No history of TIA's, stroke, PAWN SHOP KEEPER tumor, impaired sensorium, hemiplegia, paraplegia or quadraplegia. [...] hypertension, re (more content not included)... Normal [facility] [place] 02-20-2025 CNPN Telephone (PHARMN) CHAVO CAVANAUGH ([id number]) 1980 F Date Time Provider Department 02/20/25 PHARMACIST PHARMN During your visit today, we recorded the following information about you: Jackson (Inbound Call Center Agent)[place] 02/20/2025 9:43 AM Signed PAC received faxed outside lab/home meter result for patient via mdINR from Date: 02/18 . Results have been scanned into patient's chart and are located under 'Scanned Documents'. Please note, may take up to 10 minutes for document to transfer from [employer] to [facility]. PT INR (no units) Date Value 02/18/2025 1.5 01/19/2025 2.1 01/04/2025 1.3 [place] Paz ([employer]) Rosa MooreTrino 02/20/2025 3:53 PM Signed [facility] Ambulatory Pharmacy Anticoagulation Clinic Anticoagulation Episode Summary Anticoagulation Care Providers Provider Role Specialty Phone number Oneyda Recinos MD Referring Cardiology [phone] Chavo Cavanaugh is a 44 year old year old [...] CREAT 0.69 03/03/2024 No components found for: TBILI3 Lab Results Component Value Date ALT 17 [...] unspecified type (hcc) Paroxysmal atrial fibrillation (hcc) USP (current) use of anticoagulants Anticoagulation Episode Summary [...] Pharmacy Anticoagulation Clinic Pharmacy Anticoagulation Clinic Pager: [phone]. Milla Douglas RPh 02/21/2025 4:36 PM Signed Called pt and left a vmx regarding dosing below. Advised pt to take 7.5mg daily after one day boost and test INR again next week Milla Douglas, PharmD iMlla Douglas RPh 02/28/2025 8:48 AM Signed Patient [...] Date Reviewed: 02/08/2025 Reviewed by: Alec Blair APRN.WATER RESOURCE PROJECT MANAGER - Fully Assessed Reason for Visit: Anticoagulation [8] Primary Visit Diagnosis:Atrial fibrillation, unspecified type (HCC) [I48.91] Other Visit Diagnoses:Paroxysmal atrial fibrillation (HCC) [I48.0] 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 anticoagulants [Z79.01] Order(s):INR [5368055] Order #: [id number] Prescriptions as of 03/03/2025 - doxycycline (VIBRA-TABS) [...] (KLARITY-C) 0.1-0.2 (more content not included)... Normal [facility] INRon 02-18-2025 INR Coag (Bld) [Relative time] 1.5 {INR} [facility] Abdomen/Pelvis W IV Cont ONL Yon 02-08-2025 Abdomen/Pelvis W IV Cont ONLY [facility] Imaging Services [address] [place], [place] [address] Abdomen/Pelvis W IV Cont ONLY MR#: [id number] Acct: [id number] Name: CHAVO CAVANAUGH Rep #: [id number] : 1980 F 44 From: Jim shaw MD PCP: Yissel Marcial, PAWN SHOP KEEPER Status: REG ER Study: Abdomen/Pelvis W IV Cont ONLY Date of Exam: Exam# [id number] Ordering Dr: Enriqueta Duffy DO PROCEDURE: ABDOMEN/PELVIS [...] with MRI of the liver. [facility]: MARLEN Marcial; Dr. Enriqueta Duffy DO Social Services: Signed Normal [facility] Absolute lymphocyte countOrd ered By: Enriqueta Duffy on 02-08-2025 Lymphocytes Auto (Unsp spec) [#/Vol] 2.90 10*3/uL 0.83-4.51 [facility] Absolute neutrophil countOrd ered By: Enriqueta Duffy on 02-08-2025 Neutrophils (Bld) [#/Vol] 4.2 10*3/uL 2.0-7.7 [facility] Anion gap in Serum or Plasma Ordered By: Enriqueta Duffy on 02-08-2025 Anion gap [Moles/Vol] 9 mmol/L 5-15 [facility] Automated lymphocyte count a s percentage of total leukocytesOrdered By: Enriqueta Duffy on 02-08-2025 Lymphocytes/100 WBC Auto (Unsp spec) 36.7 % - [facility] BUN/creatinine ratioOrdered By: Enriqueta Duffy on 02-08-2025 Urea nitrogen/Creatinine [Mass ratio] 21.7 mg/mg High 07-24 [facility] Basic Metabolic Profile (BMP )on 02-08-2025 BUN/CRE 21.7 RATIO High - [facility] Comment on above: Performed By: #### L 503.6005, L700.6800, L100.0100, L500.2500, L501.2450 #### [facility] [address] [place], [address] Calcium [Mass/Vol] 8.9 mg/dL Normal 7.6-11.0 [facility] Comment on above: Performed By: #### L 503.6005, L700.6800, L100.0100, L500.2500, L501.2450 #### [facility] [address] [place], [address] Chloride [Moles/Vol] 106 mmol/L Normal 98-108 [facility] Comment on above: Performed By: #### L 503.6005, L700.6800, L100.0100, L500.2500, L501.2450 #### [facility] [address] [place], [address] CO2 [Moles/Vol] 24.6 mmol/L Normal 21.0-32.0 [facility] Comment on above: Performed By: #### L 503.6005, L700.6800, L100.0100, L500.2500, L501.2450 #### [facility] [address] [place], [address] Creatinine [Mass/Vol] 0.74 mg/dL Normal 0.70-1.20 [facility] Comment on above: Performed By: #### L 503.6005, L700.6800, L100.0100, L500.2500, L501.2450 #### [facility] [address] [place], [address] ECRCL 97.86 ml/min Normal 50-250 [facility] Comment on above: Performed By: #### L 503.6005, L700.6800, L100.0100, L500.2500, L501.2450 #### [facility] [address] [place], [address] GAP 9 Normal 5-15 [facility] Comment on above: Performed By: #### L 503.6005, L700.6800, L100.0100, L500.2500, L501.2450 #### [facility] [address] [place], [address] GFR/1.73 sq M.predicted among non-blacks MDRD (S/P/Bld) [Vol rate/Area] 102 mL/min/{1.73_m2} Normal >60 [facility] Comment on above: Result Comment: mL/m in/1.73m2 CKD-EPI Creatinine Equation (2020) Performed By: #### L 503.6005, L700.6800, L100.0100, L500.2500, L501.2450 #### [facility] [address] [place], [address] Glucose [Mass/Vol] 99 mg/dL Normal 70-99 [facility] Comment on above: Performed By: #### L 503.6005, L700.6800, L100.0100, L500.2500, L501.2450 #### [facility] [address] [place], [address] Potassium [Moles/Vol] 3.8 mmol/L Normal 3.3-5.1 [facility] Comment on above: Performed By: #### L 503.6005, L700.6800, L100.0100, L500.2500, L501.2450 #### [facility] [address] [place], [address] Sodium [Moles/Vol] 140 mmol/L Normal 133-145 [facility] Comment on above: Performed By: #### L 503.6005, L700.6800, L100.0100, L500.2500, L501.2450 #### [facility] [address] [place], [address] Urea nitrogen [Mass/Vol] 16 mg/dL Normal 4-19 [facility] Comment on above: Performed By: #### L 503.6005, L700.6800, L100.0100, L500.2500, L501.2450 #### [facility] [address] [place], [address] Basophil percentageOrdered B y: Enriqueta Ungur on 02-08-2025 Basophils/100 WBC (Bld) 1.1 % High 0-[address] [facility] CBC W/Diff, Automatedon Absolute Lymph 2.90 X10 3/uL Normal 0.83-4.51 [facility] Comment on above: Performed By: #### L 503.6005, L700.6800, L100.0100, L500.2500, L501.2450 #### [facility] [address] [place], [address] Absolute Neut 4.2 X10 3/uL Normal 2.0-7.7 [facility] Comment on above: Performed By: #### L 503.6005, L700.6800, L100.0100, L500.2500, L501.2450 #### [facility] [address] [place], [address] Basophils/100 WBC (Bld) 1.1 % High 0-[address] [facility] Comment on above: Performed By: #### L 503.6005, L700.6800, L100.0100, L500.2500, L501.2450 #### [facility] [address] [place], [address] Eosinophils/100 WBC (Bld) 2.8 % Normal 0-5 [facility] Comment on above: Performed By: #### L 503.6005, L700.6800, L100.0100, L500.2500, L501.2450 #### [facility] [address] [place], [address] Erythrocyte distribution width (RBC) [Ratio] 13.3 % Normal 11.6-14.6 [facility] Comment on above: Performed By: #### L 503.6005, L700.6800, L100.0100, L500.2500, L501.2450 #### [facility] [address] [place], [address] Hematocrit (Bld) [Volume fraction] 36.6 % Low 37-47 [facility] Comment on above: Performed By: #### L 503.6005, L700.6800, L100.0100, L500.2500, L501.2450 #### [facility] [address] [place], [address] Hemoglobin (Bld) [Mass/Vol] 12.0 g/dL Normal 12.0-15.0 [facility] Comment on above: Performed By: #### L 503.6005, L700.6800, L100.0100, L500.2500, L501.2450 #### [facility] [address] [place], [address] IG% 0.300 Normal 0.0-0.9 [facility] Comment on above: Result Comment: IG% - Immature Granulocytes (promyelocytes, myelocytes and metamyelocytes) > 1% indicates that a LEFT SHIFT is Present. Performed By: #### L 503.6005, L700.6800, L100.0100, L500.2500, L501.2450 #### [facility] [address] [place], [address] Lymphocytes/100 WBC (Bld) 36.7 % Normal 19-41 [facility] Comment on above: Performed By: #### L 503.6005, L700.6800, L100.0100, L500.2500, L501.2450 #### [facility] [address] [place], [address] MCH (RBC) [Entitic mass] 27.7 pg Normal 27.0-32.0 [facility] Comment on above: Performed By: #### L 503.6005, L700.6800, L100.0100, L500.2500, L501.2450 #### [facility] [address] [place], [address] MCHC (RBC) [Mass/Vol] 32.8 g/dL Normal 32-36 [facility] Comment on above: Performed By: #### L 503.6005, L700.6800, L100.0100, L500.2500, L501.2450 #### [facility] [address] [place], [address] MCV (RBC) [Entitic vol] 84.5 fL Normal 81-99 [facility] Comment on above: Performed By: #### L 503.6005, L700.6800, L100.0100, L500.2500, L501.2450 #### [facility] [address] [place], [address] Monocytes/100 WBC (Bld) 5.8 % Normal 0-[address] [facility] Comment on above: Performed By: #### L 503.6005, L700.6800, L100.0100, L500.2500, L501.2450 #### [facility] [address] [place], [address] Neutrophils/100 WBC (Bld) 53.3 % Normal 47-70 [facility] Comment on above: Performed By: #### L 503.6005, L700.6800, L100.0100, L500.2500, L501.2450 #### [facility] [address] [place], [address] Nucleated RBC (Bld) [#/Vol] 0 10*3/uL Normal 0-5 [facility] Comment on above: Performed By: #### L 503.6005, L700.6800, L100.0100, L500.2500, L501.2450 #### [facility] [address] [place], [address] Platelet mean volume (Bld) [Entitic vol] 10.7 fL Normal 6.2-12.0 [facility] Comment on above: Performed By: #### L 503.6005, L700.6800, L100.0100, L500.2500, L501.2450 #### [facility] [address] [place], [address] Platelets (Bld) [#/Vol] 320 10*3/uL Normal 150-450 [facility] Comment on above: Performed By: #### L 503.6005, L700.6800, L100.0100, L500.2500, L501.2450 #### [facility] [address] [place], [address] RBC (Bld) [#/Vol] 4.33 10*6/uL Normal 4.2-5.4 [facility] Comment on above: Performed By: #### L 503.6005, L700.6800, L100.0100, L500.2500, L501.2450 #### [facility] [address] [place], [address] RDW SD 40.9 fl Normal 35.1-43.9 [facility] Comment on above: Performed By: #### L 503.6005, L700.6800, L100.0100, L500.2500, L501.2450 #### [facility] [address] [place], [address] WBC (Bld) [#/Vol] 7.9 10*3/uL Normal 4.4-11.0 [facility] Comment on above: Performed By: #### L 503.6005, L700.6800, L100.0100, L500.2500, L501.2450 #### [facility] [address] [place], [address] CNOVon 02-08-2025 CNOV Office Visit (OBGYWM) CHAVO CAVANAUGH ([id number]) 1980 F Date Time Provider Department 02/08/25 8:15 AM ALEC BLAIR OBNANDINI During your visit today, we recorded the following information about you: Weight 70.3 kg Alec Blair, PRAFUL.WATER RESOURCE PROJECT MANAGER 02/08/2025 8:07 AM Signed Chavo Phan Mao is a 44 year old female S/P an IUD insertion 01/11/2025. Since that time, she has had no concerns of abdominal pain, pelvic pain, vaginal discharge, fever or chills. PHYSICAL EXAM: ABDOMEN: soft, non-tender, non-distended SPECULUM EXAM: external genitalia normal, normal Bartholin's glands, urethra, [place]'s glands, no vulvar lesions, no cervical lesions, [...] which included preparing to see the patient, [id number] patient care, completing clinical documentation, obtaining and/or reviewing separately obtained history, performing a medically appropriate examination, and counseling and educating the patient/family/careg ivfab. Allergies As of Date: 02/08/2025 Noted Allergy Reaction METFORMIN 01/23/2022 6 - Diarrhea NSAIDS (NON-STEROIDAL ANTI-INFLAM*01/13/20 24 15 - Contraindication-Med ical Chow* Comments: S/p gastric bypass, relative contraindication to NSAIDs Date Reviewed: 02/08/2025 Reviewed by: Alec Blair APRN.W[employer] RESOURCE PROJECT MANAGER - Fully Assessed Reason for Visit: IUD [...] (HCC) [I48.91] Ventricular tachyarrhythmia (HCC) [I47.20] 02/02/2014 Msxmt-Xzorhyxsu-Wjoj 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, cold [...] [Z98.84] 03/05/2023 (more content not included)... Normal [facility] Carbon dioxide, total [Moles /volume] in Central venous bloodOrdered By: Enriqueta Duffy on 02-08-2025 CO2 [Moles/Vol] 24.6 mmol/L 21.0-32.0 [facility] Chloride assayOrdered By: Mirna Duffy on 02-08-2025 Chloride [Moles/Vol] 106 mmol/L 98-108 [facility] Emergency Department Summary on 02-08-2025 Emergency Department Summary [facility] Medical Records Department [address] [place] [address] Emergency Department Summary 02/08/25 MR#: [id number] Acct: [id number] Name: CHAVO CAVANAUGH Rep #: [id number] : 1980 44 From: Enriqueta Duffy DO PCP: Yissel Marcial, PAWN SHOP KEEPER Status:DEP ER Location: ED HPI History of Present Illness Chief Complaint: Nausea/Vomiting Detail of Chief Complaint: Vomiting Informant: patient Narrative Narrative: Patient presents with vomiting that started yesterday. She is thrown up about 12 times in last 24 hours. She complains of concern for a bleeding ulcer as vomitus brown and xpqsib-spqjxz-wede. She denies black tarry stool. She describes some upper abdominal discomfort. She has history of gastric bypass surgery 2 years ago. She has had a cholecystectomy. Denies recent travel or surgery. Denies sick contacts. Denies fever. She has had no diarrhea. She is on Coumadin for history of A-fib. Denies dysuria urgency or frequency. [facility] Medical History (Updated 02/08/25 @ 22:55 by [...] to auscultation (more content not included)... Normal [facility] Eosinophil percentageOrdered By: Enriqueta Duffy on 02-08-2025 Eosinophils/100 WBC (Bld) 2.8 % 0-5 [facility] Erythrocyte distribution wid th ratioOrdered By: Enriqueta Duffy on 02-08-2025 Erythrocyte distribution width (RBC) [Ratio] 13.3 % 11.6-14.6 [facility] Erythrocyte distribution wid th standard deviationOrdered By: Enriqueta Duffy on 02-08-2025 Erythrocyte distribution width (RBC) [Ratio] 40.9 fl 35.1-43.9 [facility] Glomerular filtration rate ( GFR) estimation/1.73 sq m using serum, plasma, or whole bOrdered By: Enriqueta Duffy on 02-08-2025 GFR/1.73 sq M.predicted among non-blacks MDRD (S/P/Bld) [Vol rate/Area] 102 mL/min/{1.73_m2} >60 [facility] Comment on above: mL/min/1.73m2 CKD-EP I Creatinine Equation (2020) Hematocrit Auto (Bld) [Volum e fraction]Ordered By: Enriqueta Duffy on 02-08-2025 Hematocrit (Bld) [Volume fraction] 36.6 % Low 37-47 [facility] Hemoglobin measurementOrdere d By: Enriqueta Duffy on 02-08-2025 Hemoglobin (Bld) [Mass/Vol] 12.0 g/dL 12.0-15.0 [facility] Immature granulocytes/100 WB C Auto (Bld)Ordered By: Enriqueta Duffy on 02-08-2025 Immature granulocytes/100 WBC (Bld) 0.300 % 0.0-0.9 [facility] Comment on above: IG% - Immature Granu locytes (promyelocytes, myelocytes and metamyelocytes) > 1% indicates that a LEFT SHIFT is Present. International normalized rat io (INR) calculationOrdered By: Enriqueta Duffy on 02-08-2025 INR Coag (Bld) [Relative time] 2.1 {INR} [facility] Lactic Acidon 02-08-2025 Lactate [Moles/Vol] mmol/L Normal 0.0-2.0 [facility] Comment on above: Order Comment: Y Performed By: #### L 503.6005, L700.6800, L100.0100, L500.2500, L501.2450 #### [facility] [address] [place], [place], [address] Lactic acid measurementOrder ed By: Enriqueta Duffy on 02-08-2025 Lactate [Moles/Vol] mmol/L 0.0-2.0 [facility] Lipaseon 02-08-2025 Lipase [Catalytic activity/Vol] 61 U/L Normal 13-75 [facility] Comment on above: Result Comment: Sally jama note: LIPASE revised reference range effective 23. New Lipase methodology. Expected to produce lower values than the previous assay method. NEW Reference Range: 13 - 75 U/L Performed By: #### L 503.6005, L700.6800, L100.0100, L500.2500, L501.2450 #### [facility] [address] [place], [place], [id number] Lipase measurementOrdered By : Enriqueta Duffy on 02-08-2025 Lipase [Catalytic activity/Vol] 61 U/L 13-75 [facility] Comment on above: Please note:LIPASE r evised reference range effective 23. New Lipase methodology. Expected to produce lower values than the previous assay method. NEW Reference Range: 13 - 75 U/L MCV (mean corpuscular volume ) determinationOrdered By: Enriqueta Duffy on 02-08-2025 MCV (RBC) [Entitic vol] 84.5 fL 81-99 [facility] Mean corpuscular hemoglobin (MCH) determinationOrdered By: Enriqueta Duffy on 02-08-2025 MCH (RBC) [Entitic mass] 27.7 pg 27.0-32.0 [facility] Mean corpuscular hemoglobin concentration (MCHC) determinationOrdered By: Enriqueta Duffy on 02-08-2025 MCHC (RBC) [Mass/Vol] 32.8 g/dL 32-36 [facility] Mean platelet volume determi nationOrdered By: Enriqueta Duffy on 02-08-2025 Platelet mean volume (Bld) [Entitic vol] 10.7 fL 6.2-12.0 [facility] Monocyte percentageOrdered B y: Enriqueta Duffy on 02-08-2025 Monocytes/100 WBC (Bld) 5.8 % 0-[address] [facility] Neutrophil percentageOrdered By: Enriqueta Duffy on 02-08-2025 Neutrophils/100 WBC (Bld) 53.3 % 47-70 [facility] Nucleated red blood cell per centageOrdered By: Enriqueta Duffy on 02-08-2025 Nucleated RBC/100 WBC (Bld) [Ratio] 0 % 0-5 [facility] Platelet countOrdered By: Mirna Duffy on 02-08-2025 Platelets (Bld) [#/Vol] 320 10*3/uL 150-450 [facility] Potassium measurement (mass/ volume)Ordered By: Enriqueta Duffy on 02-08-2025 Potassium (Unsp spec) [Mass/Vol] 3.8 mmol/L 3.3-5.1 [facility] ,Serum,hCG Quali.on 02-08-2025 HCG, SERUM QUAL Negative Normal [facility] Comment on above: Performed By: #### L 503.6005, L700.6800, L100.0100, L500.2500, L501.2450 #### [facility] [address] [place], [address] Prothrombin Time w/INRon INR Coag (PPP) [Relative time] 2.1 {INR} Normal [facility] Comment on above: Performed By: #### L 300.3900 #### [facility] [address] [place], [address] PT Coag (PPP) [Time] 24.2 s High 11.7-14.9 [facility] Comment on above: Performed By: #### L 300.3900 #### [facility] [address] [place], [address] Prothrombin timeOrdered By: Enriqueta Duffy on 02-08-2025 PT Coag (PPP) [Time] 24.2 s High 11.7-14.9 [facility] RBC Auto (Bld) [#/Vol]Ordere d By: Enriqueta Duffy on 02-08-2025 RBC (Bld) [#/Vol] 4.33 10*6/uL 4.2-5.4 [facility] Serum beta-hCG test, qualita tiveOrdered By: Enriqueta Landispawan on 02-08-2025 Beta HCG ( test) Ql Negative [facility] Serum creatinine measurement (mass/volume)Ordered By: Rem Clive on 02-08-2025 Creatinine [Mass/Vol] 0.74 mg/dL 0.70-1.20 [facility] Serum glucose measurement (m ass/volume)Ordered By: Rem Clive on 02-08-2025 Glucose [Mass/Vol] 99 mg/dL 70-99 [facility] Serum or plasma calcium eunice urement (mass/volume)Ordered By: Rem Ungpawan on 02-08-2025 Calcium [Mass/Vol] 8.9 mg/dL 7.6-11.0 [facility] Serum or plasma urea nitroge n measurement (mass/volume)Ordered By: Enriqueta Clive on 02-08-2025 Urea nitrogen [Mass/Vol] 16 mg/dL 4-19 [facility] Sodium levelOrdered By: Nevinrichard s Clive on 02-08-2025 Sodium [Moles/Vol] 140 mmol/L 133-145 [facility] White blood cell (WBC) count Ordered By: Enriqueta Clive on 02-08-2025 WBC (Bld) [#/Vol] 7.9 10*3/uL 4.4-11.0 [facility] CNPNon 02-07-2025 CNPN Telephone (PREANME) MAOCHAVO Phan ([id number]) 1980 F Date Time Provider Department 02/07/25 TIFFANY WALTERS During your visit today, we recorded the following information about you: Tiffany Walters RN 02/07/2025 2:13 PM Signed Dear, Dr. Josue Recinos, your patient, Chavo Cavanaugh is scheduled for EGD with Dr. Zelaya on 03/08/2025. 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, cold [...] Encounter Status:Closed by DAVE WALTERS on 02/07/25 [facility] 01-20-2025 CNPN Telephone (PHARMN) CHAVO CAVANAUGH ([id number]) 1980 F Date Time Provider Department 01/20/25 [...] Milla Douglas RPh 01/20/2025 3:35 PM Signed [facility] Anticoagulation Episode Summary Anticoagulation Care Providers Provider Role Specialty Phone number Oneyda Recinos MD Referring Cardiology [phone] Chavo Cavanaugh is a 44 year old year old [...] day Left voice message And sent a [employer] message Advised patient to continue current weekly dose as noted above Next home INR check scheduled on 01/26 Will call back again Thursday to ensure pt received dosing information. Milla Douglas [facility] Clinical Pharmacist, Pharmacy Anticoagulation Clinic Pharmacy Anticoagulation Clinic Pager: [phone]. Rosa Moore [facility] 01/23/2025 3:51 PM Signed Called and spoke to pt. She confirmed received Pharmacy Anticoagulation Clinic msg and has been on 7.5mg daily for last week and a half. Confirmed will check INR . Rosa Oscar [facility] Jumana Moe [facility] 01/26/2025 2:27 PM Signed Patient was due [...] an injectable anticoagulant - No Jumana Moe [facility] Milla Douglas [facility] 02/02/2025 1:36 PM Signed Chavo Jens Cavanaugh was called and reminded to test INR today or as soon as possible. Left a vmx. Milla Douglas [facility] Lora Raza [facility] 02/09/2025 10:05 AM Signed Added to discharge list [place] (Inbound Call Center Agent)[place] 02/09/2025 2:02 PM Signed No return call from patient. Letter sent. FINAL ATTEMPT letter sent at this time. If no response from patient within 4 weeks, patient will be discharged from PAC at that time. Will also route to referring MD as FYI and to see if office can assist in reaching patient. [place] Paz CPhT (Head Of Conservation) Pharmacy Anticoagulation Clinic Allergies As of Date: [...] Other Visit Diagnoses:Paroxysmal atrial fibrillation (HCC) [I48.0] USP (current) use of anticoagulants [Z79.01] Order(s):INR [[id number]] Order #: [id number] Prescriptions as of 02/09/2025 - doxycycline (VIBRA-TABS) 100 mg tablet TAKE 1/2 (ONE-HALF) OF A TABLET BY MOUTH TWICE DAILY - warfarin (COUMADIN) 5 mg tablet Take 1.5 tablets by mouth once daily. Equally 7.5 mg Daily - levonorgestrel (MIRENA) 21 mcg/24hr (up to 8 yrs) 52 mg IUD 1 each by INTRAUTERINE route as directed. (more content not included)... Normal [facility] INRon 01-19-2025 INR Coag (Bld) [Relative time] 2.1 {INR} [facility] CBC W Auto Differential pane l (Bld)on 01-12-2025 Basophils (Bld) [#/Vol] 0.09 10*3/uL [facility] Basophils/100 WBC (Bld) 1.2 % [facility] Differential cell count method Nom (Bld) Auto [facility] Eosinophils (Bld) [#/Vol] 0.22 10*3/uL [facility] Eosinophils/100 WBC (Bld) 3 % [facility] Erythrocyte distribution width (RBC) [Ratio] 13.6 % 11.5 - 15.0 % [facility] Hematocrit (Bld) [Volume fraction] 39.6 % 36.0 - 46.0 % [facility] Hemoglobin (Bld) [Mass/Vol] 12.9 g/dL 11.5 - 15.5 g/dL [facility] Immature granulocytes (Bld) [#/Vol] [facility] Immature granulocytes/100 WBC (Bld) 0.3 % [facility] Lymphocytes (Bld) [#/Vol] 2.03 10*3/uL [facility] Lymphocytes/100 WBC (Bld) 27.9 % [facility] MCH (RBC) [Entitic mass] 27.6 pg 26. 0 - 34.0 pg [facility] MCHC (RBC) [Mass/Vol] 32.6 g/dL 30.5 - 36.0 g/dL [facility] MCV (RBC) [Entitic vol] 84.6 fL 80.0 - 100.0 fL [facility] Monocytes (Bld) [#/Vol] 0.43 10*3/uL [facility] Monocytes/100 WBC (Bld) 5.9 % [facility] Neutrophils (Bld) [#/Vol] 4.48 10*3/uL [facility] Neutrophils/100 WBC (Bld) 61.7 % [facility] Nucleated RBC (Bld) [#/Vol] NINF [facility] Nucleated RBC/100 WBC (Bld) [Ratio] 0 % /100 WBC [facility] Platelet mean volume (Bld) [Entitic vol] 10.8 fL 9.0 - 12.7 fL [facility] Platelets (Bld) [#/Vol] 336 10*3/uL [facility] RBC (Bld) [#/Vol] 4.68 10*6/uL 3.90 - 5.2 0 m/uL [facility] WBC (Bld) [#/Vol] 7.27 10*3/uL [facility] Basophils (Bld) [#/Vol] 0.09 10*3/uL Normal <0.11 [facility] Comment on above: Order Comment: Speci men Type: BLOOD SPECIMENOrdering Facility: [facility] Address: [address] [place] [address] Performed By: #### 5 7021-8 ####[facility]IA [id number] [place] [address] [place] Basophils/100 WBC (Bld) 1.2 % Normal [facility] Comment on above: Order Comment: Speci men Type: BLOOD SPECIMENOrdering Facility: [facility] Address: [address] [place] [address] Performed By: #### 5 7021-8 ####[facility] [id number] [place] [address] [place] Differential cell count method Nom (Bld) Auto Normal [facility] Comment on above: Order Comment: Speci men Type: BLOOD SPECIMENOrdering Facility: [facility] Address: [address] [place] [address] Performed By: #### 5 7021-8 ####[facility] LABCLIA [id number] [address], [place] [address] [place] Eosinophils (Bld) [#/Vol] 0.22 10*3/uL Normal <0.46 [facility] Comment on above: Order Comment: Speci men Type: BLOOD SPECIMENOrdering Facility: [facility] Address: [address] [place] [address] Performed By: #### 5 7021-8 ####[facility] LABCLIA [id number] [address], [place] [address] [place] Eosinophils/100 WBC (Bld) 3.0 % Normal [facility] Comment on above: Order Comment: Speci men Type: BLOOD SPECIMENOrdering Facility: [facility] Address: [address] [place] [address] Performed By: #### 5 7021-8 ####[facility]CL[facility] [id number] [address], [place] [address] [place] Erythrocyte distribution width (RBC) [Ratio] 13.6 % Normal 11.5-15.0 [facility] Comment on above: Order Comment: Speci men Type: BLOOD SPECIMENOrdering Facility: [facility] Address: [address] [place] [address] Performed By: #### 5 7021-8 ####[facility] LABCLIA [id number] [address], [facility] [place] Hematocrit (Bld) [Volume fraction] 39.6 % Normal 36.0-46.0 [facility] Comment on above: Order Comment: Speci men Type: BLOOD SPECIMENOrdering Facility: [facility] Address: [address] [place] [address] Performed By: #### 5 7021-8 ####[facility]CL[facility] [id number] [address], [facility] [place] Hemoglobin (Bld) [Mass/Vol] 12.9 g/dL Normal 11.5-15.5 [facility] Comment on above: Order Comment: Speci men Type: BLOOD SPECIMENOrdering Facility: [facility] Address: [address] [place] [address] Performed By: #### 5 7021-8 ####[facility]CLIA [id number] [place] [address] [place] Immature granulocytes (Bld) [#/Vol] 10*3/uL Normal <0.10 [facility] Comment on above: Order Comment: Speci men Type: BLOOD SPECIMENOrdering Facility: [facility] Address: [address] [place] [address] Performed By: #### 5 7021-8 ####[facility]CLIA [id number] [place] [address] [place] Immature granulocytes/100 WBC (Bld) 0.3 % Normal [facility] Comment on above: Order Comment: Speci men Type: BLOOD SPECIMENOrdering Facility: [facility] Address: [address] [place] [address] Performed By: #### 5 7021-8 ####[facility] [id number] [place] [address] [place] Lymphocytes (Bld) [#/Vol] 2.03 10*3/uL Normal 1.00-4.00 [facility] Comment on above: Order Comment: Speci men Type: BLOOD SPECIMENOrdering Facility: [facility] Address: [address] [place] [address] Performed By: #### 5 7021-8 ####[facility]CLIA [id number] [place] [address] [place] Lymphocytes/100 WBC (Bld) 27.9 % Normal [facility] Comment on above: Order Comment: Speci men Type: BLOOD SPECIMENOrdering Facility: [facility] Address: [address] [place] [address] Performed By: #### 5 7021-8 ####[facility] LABIA [id number] [place] [address] [place] MCH (RBC) [Entitic mass] 27.6 pg Normal 26.0-34.0 [facility] Comment on above: Order Comment: Speci men Type: BLOOD SPECIMENOrdering Facility: [facility] Address: [address] [place] [address] Performed By: #### 5 7021-8 ####[facility] LABIA [id number] [place] [address] [place] MCHC (RBC) [Mass/Vol] 32.6 g/dL Normal 30.5-36.0 [facility] Comment on above: Order Comment: Speci men Type: BLOOD SPECIMENOrdering Facility: [facility] Address: [address] [place] [address] Performed By: #### 5 7021-8 ####[facility] [id number] [place] [address] [place] MCV (RBC) [Entitic vol] 84.6 fL Normal 80.0-100.0 C [facility] Comment on above: Order Comment: Speci men Type: BLOOD SPECIMENOrdering Facility: [facility] Address: [address] [place] [address] Performed By: #### 5 7021-8 ####[facility] LABIA [id number] [place] [address] [place] Monocytes (Bld) [#/Vol] 0.43 10*3/uL Normal <0.87 [facility] Comment on above: Order Comment: Speci men Type: BLOOD SPECIMENOrdering Facility: [facility] Address: [address] [place] [address] Performed By: #### 5 7021-8 ####[facility] LABCLIA [id number] [address] [address] [place] Monocytes/100 WBC (Bld) 5.9 % Normal [facility] Comment on above: Order Comment: Speci men Type: BLOOD SPECIMENOrdering Facility: [facility] Address: [address] [place] [address] Performed By: #### 5 7021-8 ####[facility] LABCLIA [id number] [place] [address] [place] Neutrophils (Bld) [#/Vol] 4.48 10*3/uL Normal 1.45-7.50 [facility] Comment on above: Order Comment: Speci men Type: BLOOD SPECIMENOrdering Facility: [facility] Address: [address] [place] [address] Performed By: #### 5 7021-8 ####[facility] LABCLIA [id number] [place] [address] [place] Neutrophils/100 WBC (Bld) 61.7 % Normal [facility] Comment on above: Order Comment: Speci men Type: BLOOD SPECIMENOrdering Facility: [facility] Address: [address] [place] [address] Performed By: #### 5 7021-8 ####[facility] LABCLIA [id number] [place] [address] [place] Nucleated RBC (Bld) [#/Vol] 10*3/uL Normal <0.01 [facility] Comment on above: Order Comment: Speci men Type: BLOOD SPECIMENOrdering Facility: [facility] Address: [address] [place] [address] Performed By: #### 5 7021-8 ####[facility] LABCLIA [id number] [place] [id number] [place] Nucleated RBC/100 WBC (Bld) [Ratio] 0.0 /100 WBC Normal [facility] Comment on above: Order Comment: Speci men Type: BLOOD SPECIMENOrdering Facility: [facility] Address: [address] [place] [address] Performed By: #### 5 7021-8 ####[facility] LABIA [id number] [place] [address] [place] Platelet mean volume (Bld) [Entitic vol] 10.8 fL Normal 9.0-12.7 [facility] Comment on above: Order Comment: Speci men Type: BLOOD SPECIMENOrdering Facility: [facility] Address: [address] [place] [address] Performed By: #### 5 7021-8 ####[facility] LABIA [id number] [place] [address] [place] Platelets (Bld) [#/Vol] 336 10*3/uL Normal 150-400 [facility] Comment on above: Order Comment: Speci men Type: BLOOD SPECIMENOrdering Facility: [facility] Address: [address] [place] [address] Performed By: #### 5 7021-8 ####[facility] LABIA [id number] [place] [address] [place] RBC (Bld) [#/Vol] 4.68 10*6/uL Normal 3.90-5.20 [facility] Comment on above: Order Comment: Speci men Type: BLOOD SPECIMENOrdering Facility: [facility] Address: [address] [place] [address] Performed By: #### 5 7021-8 ####[facility] LABIA [id number] [place] [id number] [place] WBC (Bld) [#/Vol] 7.27 10*3/uL Normal 3.70-11.00 [facility] Comment on above: Order Comment: Speci men Type: BLOOD SPECIMENOrdering Facility: [facility] Address: [address] [place] [address] Performed By: #### 5 7021-8 ####[facility] GIFTY [id number] [address] STATES OF [facility] CNOVon 01-12-2025 CNOV Office Visit (FAMPWS) CHAVO CAVANAUGH ([id number]) 1980 F Date Time Provider Department 01/12/25 10:00 AM YISSEL MARCIAL FAMPWS During your visit today, we recorded the following information about you: Pulse Blood pressure Weight 76/minute 98/66 69.9 kg Yissel Marcial APRN.WATER RESOURCE PROJECT MANAGER 01/12/2025 10:09 AM Signed This is a 44 year old female who presents today with: Patient presents with: 6 Month Exam HISTORY OF PRESENT ILLNESS: Chavo Cavanaugh is a 44 year old female. 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 Cardioverted with 150j under sedation DEFIBRILLATOR SURGERY 02/24/2014 ICD, redo WPW AND atrial fib ablation EPS: DEFIB. SURGERY 05/16/2021 Exchange of a [employer] SQ-RX 1010 pulse generator with a [employer] E[employer] SURG ANT SGMT PROC UNLISTED Right 05/03/2024 Dr. Hammond INSERTION OF IUD 01/11/2025 Mirena IUD REMOVAL [...] HOCM s/p ICD None Maternal Grandfather age 46-suddenly Heart Maternal Grandmother [place] age 72 Alcohol/Drug Paternal Grandfather ETOH Diabetes [...] tremors MOO (more content not included)... Normal [facility] Comprehensive metabolic 2000 panelon 01-12-2025 Albumin [Mass/Vol] 3.9 g/dL Normal 3.9-4.9 [facility] Comment on above: Order Comment: Noni trivedi Type: BLOOD SPECIMENOrdering Facility: [facility] Address: [address] [place] [address] Performed By: #### 2 4323-8 ####[facility] LABCLIA [id number] [place] [address] [place] ALP [Catalytic activity/Vol] 77 U/L Normal 34-123 [facility] Comment on above: Order Comment: Noni trivedi Type: BLOOD SPECIMENOrdering Facility: [facility] Address: [address] [place] [address] Performed By: #### 2 4323-8 ####[facility] LABCLIA [id number] [facility] [address] [place] [address] [place] ALT [Catalytic activity/Vol] 17 U/L Normal 7-38 [facility] Comment on above: Order Comment: Speci men Type: BLOOD SPECIMENOrdering Facility: [facility] Address: [address] [place], [place] [address] Performed By: #### 2 4323-8 ####[facility] LABCLIA [id number] [facility] [address] [place] [address] [place] Anion gap [Moles/Vol] 10 mmol/L Normal 8-15 [facility] Comment on above: Order Comment: Speci men Type: BLOOD SPECIMENOrdering Facility: [facility] Address: [address] [place] [address] Performed By: #### 2 4323-8 ####[facility] LABCLIA [id number] [place] [id number] [place] AST [Catalytic activity/Vol] 26 U/L Normal 13-35 [facility] Comment on above: Order Comment: Speci men Type: BLOOD SPECIMENOrdering Facility: [facility] Address: [address] [place], [place] [address] Performed By: #### 2 4323-8 ####[facility] LABCLIA [id number] [address] [place] [address] [place] Bilirubin [Mass/Vol] 0.6 mg/dL Normal 0.2-1.3 [facility] Comment on above: Order Comment: Speci men Type: BLOOD SPECIMENOrdering Facility: [facility] Address: [address] [place] [address] Performed By: #### 2 4323-8 ####[facility] LABCLIA [id number] [facility] [address] [address] [place] Calcium [Mass/Vol] 9.1 mg/dL Normal 8.5-10.2 [facility] Comment on above: Order Comment: Speci men Type: BLOOD SPECIMENOrdering Facility: [facility] Address: [address] [place] [address] Performed By: #### 2 4323-8 ####[facility] LABCLIA [id number] [place] [id number] [place] Chloride [Moles/Vol] 106 mmol/L Normal 98-107 [facility] Comment on above: Order Comment: Speci men Type: BLOOD SPECIMENOrdering Facility: [facility] Address: [address] [place] [address] Performed By: #### 2 4323-8 ####[facility] LABCLIA [id number] [place] [address] [place] CO2 [Moles/Vol] 23 mmol/L Normal 22-30 [facility] Comment on above: Order Comment: Speci men Type: BLOOD SPECIMENOrdering Facility: [facility] Address: [address] [place] [address] Performed By: #### 2 4323-8 ####[facility] LABCLIA [id number] [place] [address] [place] Creatinine [Mass/Vol] 0.66 mg/dL Normal 0.58-0.96 [facility] Comment on above: Order Comment: Speci men Type: BLOOD SPECIMENOrdering Facility: [facility] Address: [address] [place] [address] Performed By: #### 2 4323-8 ####[facility] LABCLIA [id number] [place] [id number] [place] Creatinine and Glomerular filtration rate.predicted panel (S/P/Bld) 111 mL/min/1.73m??? Normal >=60 [facility] Comment on above: Order Comment: Speci men Type: BLOOD SPECIMENOrdering Facility: [facility] Address: [address] [place] [address] Result Comment: Bety mated Glomerular Filtration Rate [...] actual GFR. Performed By: #### 2 4323-8 ####[facility] LABIA [id number] [address] [address] [place] Glucose [Mass/Vol] 88 mg/dL Normal 74-99 [facility] Comment on above: Order Comment: Noni trivedi Type: BLOOD SPECIMENOrdering Facility: [facility] Address: [address] [place] [address] Result Comment: The [place] Diabetes Association (ADA) provides guidance for cutoff [...] Standards of Medical Care in Diabetes 2016, [place] Diabetes Association. Diabetes Care. 2016.39(Suppl 1). Performed By: #### 2 4323-8 ####[facility] LABIA [id number] [address] [address] [place] Potassium [Moles/Vol] 4.2 mmol/L Normal 3.7-5.1 [facility] Comment on above: Order Comment: Noni trivedi Type: BLOOD SPECIMENOrdering Facility: [facility] Address: [address] [place] [id number] Performed By: #### 2 4323-8 ####[facility] LABCLIA [id number] [facility] [address] [address] [place] Protein [Mass/Vol] 6.7 g/dL Normal 6.3-8.0 [facility] Comment on above: Order Comment: Speci men Type: BLOOD SPECIMENOrdering Facility: [facility] Address: [address] [place] [address] Performed By: #### 2 4323-8 ####[facility] LABCLIA [id number] [place] [id number] [place] Sodium [Moles/Vol] 139 mmol/L Normal 136-144 [facility] Comment on above: Order Comment: Speci men Type: BLOOD SPECIMENOrdering Facility: [facility] Address: [address] [place] [address] Performed By: #### 2 4323-8 ####[facility] LABCLIA [id number] [place] [id number] [place] Urea nitrogen [Mass/Vol] 12 mg/dL Normal 7-21 [facility] Comment on above: Order Comment: Speci men Type: BLOOD SPECIMENOrdering Facility: [facility] Address: [address] [place] [address] Performed By: #### 2 4323-8 ####[facility] LABIA [id number] [place] [id number] [place] CNOVon 01-11-2025 CNOV Office Visit (OBMELONIEWKylah) CHAVO CAVANAUGH ([id number]) 1980 F Date Time Provider Department 01/11/25 8:15 AM ALEC BLAIR During your visit today, we recorded the following information about you: Blood pressure Weight 110/64 71.2 kg Alec Blair APRN.WATER RESOURCE PROJECT MANAGER 01/11/2025 8:22 AM Signed Crystal presents for [...] IUD source: office provided IUD lot #: [id number] Exp date: 01/2027 UNIVERSAL PROTOCOL / SAFETY [...] Follow up in one month. Alec Blair APRN.WATER RESOURCE PROJECT MANAGER Jeannette ChunMALLIKA 01/11/2025 7:45 AM Signed POST [...] contact the office. Referring Provider: ALEC BLAIR [[id number]] Allergies As of Date: 01/11/2025 Noted Allergy Reaction METFORMIN 01/23/2022 6 - Diarrhea NSAIDS (NON-STEROIDAL ANTI-INFLAM*01/13/20 24 15 - Contraindication-Med ical Chow* Comments: S/p gastric bypass, relative contraindication to NSAIDs Date Reviewed: 01/11/2025 Reviewed by: Alec Blair APRN.WATER RESOURCE PROJECT MANAGER - Fully Assessed Reason for Visit: Insertion Of IUD [291] IUD Removal [1950] Primary Visit Diagnosis:Encounter for IUD removal and reinsertion [Z30.433] Order(s):[] levonorgestrel 21 mcg/24hr (up to 8 yrs) 52 mg 1 each intrauterine device (MIRENA)Disp: Rfl: levonorgestrel (MIRENA) 21 mcg/24hr (up to 8 yrs) 52 mg IUD1 each by INTRAUTERINE route as directed.Disp: 1 eachRfl: 0 UA DIP,URINE HCG (POC) [[id number]] Order #: [id number] Prescriptions as of 01/11/2025 - levonorgestrel (MIRENA) [...] mouth on (more content not included)... Normal [facility] UA DIP,URINE HCG (POC)on Beta HCG ( test) Ql (U) Negative Negative [facility] Comment on above: Location:[facility], [address], [place], [address] Engagement Manager (POCT) Internal QC [place] [facility] Location:[facility], [address], [place], [address] [facility] CNPNon 01-04-2025 CNPN Telephone (PHARMN) CHAVO CAVANAUGH Jens ([id number]) 1980 F Date Time Provider Department 01/04/25 PHARMACIST PHARMN During your visit today, we recorded the following information about you: Jackson Reynoso[employer])[place] 01/04/2025 5:02 PM Signed PAC received faxed outside lab/home meter result for patient via mdINR from Date: 01/04 . Results have been scanned into patient's chart and are located under 'Scanned Documents'. Please note, may take up to 10 minutes for document to transfer from [facility] to [facility]. PT INR (no units) Date Value 01/04/2025 1.3 01/01/2025 1.2 12/07/2024 1.2 [place] Paz ([employer]) Milla Douglas RPh 01/05/2025 9:49 AM Signed [facility] Anticoagulation Episode Summary Anticoagulation Care Providers Provider Role Specialty Phone number Oneyda Recinos MD Referring Cardiology [phone] Chavo Phan Mao is a 44 year old year [...] unspecified type (hcc) Paroxysmal atrial fibrillation (hcc) USP (current) use of anticoagulants Anticoagulation Episode Summary [...] Advised pt to Call Coumadin Clinic at [phone] [facility], we do not know if pt took increased doses of warfarin provided earlier this week, or what dosing she has been taking since. We need to talk to the patient. Brought this up to referring provider's attention in 01/02 note PAC will f/u again tomorrow Milla Douglas [facility] Clinical Pharmacist, Pharmacy Anticoagulation Clinic [facility] Pager: [phone]. Siobhan Calloway RN 01/05/2025 12:42 PM Signed MDinr calling to report the patient's INR result 01/04. Noted result has been addressed below. Bozena Calloway RN [facility] Lora Raza RP 01/06/2025 3:52 PM Signed The patient was called to discuss recent INR test results. A voice message was left on patient's Cell phone voice mail. The patient was advised to call the Coumadin Clinic at [phone] and continue current warfarin dose. PT INR (no units) Date Value 01/04/2025 1.3 01/01/2025 1.2 12/07/2024 1.2 Lora Raza PharmD,Rosa Sloan [facility] 01/09/2025 9:34 AM Signed Called pt and LVM to call Pharmacy Anticoagulation Clinic back. Noted in 01/02 and Pharmacy Anticoagulation Clinic has been unable to reach pt. Rosa Moore PharmD Heart Failure, Heart Transplant, and Anticoagulation Clinical Primary [employer] Principal January 09, 2025 Sera ([employer])Bernardo 01/09/2025 10:53 AM Signed Patient returned the [...] her after 3:30pm moving forward. Bernardo Zamora ([employer]) Rosa Moore [facility] 01/09/2025 3:13 PM Signed Called pt and LVM to check INR tomorrow and today take typical 7.5mg. Given pt has been taking much lower doses that Pharmacy Anticoagulation Clinic tracker may need to further adjust TWD, but did not today given checking INR tomorrow and last INR 6 days old at this point. Rosa Moore PharmD Heart Failure, Heart Transplant, and Anticoagulation Clinical Primary [employer] Principal January 09, 2025 [facility] 01/10/2025 4:07 PM Signed Called pt and advised to take 7.5mg today (more content not included)... Normal [facility] INRon 01-04-2025 INR Coag (Bld) [Relative time] 1.3 {INR} [facility] CNPNon 01-02-2025 CNPN Telephone (PHARMN) CHAVO CAVANAUGH ([id number]) 1980 F Date Time Provider Department 01/02/25 PHARMACIST PHARMN During your visit today, we recorded the following information about you: Sera (Inbound Call Center Agent)Bernardo 01/02/2025 10:03 AM Signed Received fax from [facility] with INR results for patient. Patient tested on 01/01/2025 and the INR result was 1.2. Fax can be found under scanned documents as miscellaneous lab result. [facility] PT [facility]R (no units) Date Value 01/01/2025 1.2 12/07/2024 1.2 11/02/2024 1.8 Bernardo Zamora, Head Of Conservation (scutcher tender) [facility] 01/02/2025 10:40 AM Signed [facility]tico[facility] Anticoagulation Episode Summary Anticoagulation Care Providers Provider Role Specialty Phone number Oneyda Recinos MD Referring Cardiology [phone] Chavo Phan Mao is a 44 year old year [...] Left voice message - Left and sent [facility]. Given INR 1.2 for second time [...] missed any doses of warfarin. Rosa Moore [facility] Clinical Pharmacist, Pharmacy Anticoagulation Clinic Pharmacy [facility] Pager: [phone]. Milla Douglas [facility] 01/03/2025 8:59 AM Signed [facility] Anticoagulation Episode Summary Anticoagulation Care Providers Provider Role Specialty Phone number Oneyda Recinos MD Referring Cardiology [phone] Chavo Cavanaugh is a 44 year old year old [...] did not (more content not included)... Normal [facility] CNPNon 01-01-2025 CNPN Telephone (CARDHOSP) CHAVO CAVANAUGH ([id number]) 1980 F Date Time Provider Department 01/01/25 MATT CHAMBERLAIN During your visit today, we recorded the following information about you: Matt Chamberlain MD 01/01/2025 8:24 AM Signed Received after hour call from INR managing service. Patient's home INR was 1.2. Patient was called but phone went to [employer]moms. I left a message asking her to call our office for further guidance. Matt Chamberlain MD Fellow Cardiac Electrophysiology and Pacing Sera ([employer])Bernardo 01/02/2025 9:59 AM Signed Patient is managed by Pharmacy Anticoagulation Clinic. Please see encounter from today. 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 Patient tested on 12/07/2024 and the INR result was 1.2. Fax can be found under scanned documents as miscellaneous lab result. It may take a few minutes to transfer from [employer]. PT INR (no units) Date Value 12/07/2024 1.2 11/02/2024 1.8 10/05/2024 1.5 Bernardo Zamora, Head Of Conservation (scutcher tender) Pharmacy Anticoagulation Clinic Alandante MillaSTUART 12/08/2024 1:41 PM Signed [facility] Ambulatory Pharmacy Anticoagulation [facility] Anticoagulation Episode Summary Anticoagulation Care Providers Provider Role Specialty Phone number Oneyda Recinos MD Referring Cardiology [phone] Chavo Cavanaugh is a 44 year old year old [...] unspecified type (hcc) Paroxysmal atrial fibrillation (hcc) USP (current) use of anticoagulants Anticoagulation Episode Summary [...] 20mg x1 today Call Coumadin Clinic at [phone] to discuss further dosing and f/u Milla Douglas RPh Clinical Pharmacist, Pharmacy Anticoagulation Clinic Pharm[facility] Pager: [phone]. Milla Douglas RPh 12/09/2024 4:21 PM Signed Called pt and left another vmx, reminding of yesterday's dose and to continue regular weekly dose now. Advised pt to Call Coumadin Clinic at [phone] to discuss dosing further Earlene Chavez Bethany, RPh 12/12/2024 9:24 AM Signed 3rd attempt to reach pt and left VM to call Pharmacy Anticoagulation Clinic back. Left VM INR due Thursday 12/14. Will move follow up to Thursday as unable to reach pt x3. Rosa Moore PharmD Heart Failure, Heart Transplant, and Anticoagulation Clinical [employer] Principal December 12, 2024 Milla Douglas RPh 12/15/2024 [...] [place], RPh 12/22/2024 12:20 PM Signed Chavo Cavanaugh was called and reminded to test INR today or as soon as possible. Left a vmx. Milla Douglas [facility] Carlita JenniferTrino christian 12/29/2024 9:31 AM Signed No INR has been received or is in process at this time, will add to discharge list and start the discharge process. Will try to send a mychart mst today though. Jennifer Zazueta [facility] [place] ([employer])[place] 12/29/2024 3:01 PM Signed DISCHARGE No return [...] assist in reaching patient. [place] Paz CPhT (Head Of Conservation) Pharmacy Anticoagulation Clinic Allergies As of Date: 12/08/2024 Noted Allergy Reaction METFORMIN 01/23/2022 6 - Diarrhea NSAIDS (NON-STEROIDAL ANTI-INFLAM*01/13/20 24 15 - Contraindicat (more content not included)... Normal [facility] INRon 12-07-2024 INR Coag (Bld) [Relative time] 1.2 {INR} [facility] CNPNon 11-04-2024 CNPN Telephone (PHARMN) CHAVO CAVANAUGH ([id number]) 1980 F Date Time Provider Department 11/04/24 PHARMACIST PHARMN During your visit today, we recorded the following information about you: Sera (Inbound Call Center Agent)Bernardo 11/04/2024 4:[address] Recinos, The [...] back to the Pharmacy Anticoagulation Clinic at [phone]. Please let me know if you have any questions. Thank you, Bernardo Zamora, Head Of Conservation (scutcher tender) Pharmacy Anticoagulation [facility] Sera (Inbound Call Center Agent)Bernardo 11/11/2024 10:[address] Recinos, The [...] back to the Pharmacy Anticoagulation Clinic at [phone]. Please let me know if you have any questions. 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 Normal [facility] CNPNon 11-03-2024 CNPN Telephone (PHARMN) CHAVO CAVANAUGH ([id number]) 1980 F Date Time Provider Department 11/03/24 PHARMACIST PHARMN During your visit today, we recorded the following information about you: Jackson (Inbound Call Center Agent)Maine 11/03/2024 10:53 AM Signed PAC received faxed outside lab/home meter result for patient via mdINR from Date: 11/02 . Results have been scanned into patient's chart and are located under 'Scanned Documents'. Please note, may take up to 10 minutes for document to transfer from [facility] to [facility]. PT INR (no units) Date Value 11/02/2024 1.8 10/05/2024 1.5 09/14/2024 1.2 Maine Paz (Inbound Call Center Agent) Milla DouglasSTUART 11/03/2024 1:35 PM Signed [facility] Ambulatory Pharmacy Anticoagulation Clinic Anticoagulation Episode Summary Anticoagulation Care Providers Provider Role Specialty Phone number Oneyda Recinos MD Referring Cardiology [phone] Chavo Cavanaugh is a 44 year old year old [...] unspecified type (hcc) Paroxysmal atrial fibrillation (hcc) USP (current) use of anticoagulants Anticoagulation Episode Summary [...] Advised pt to Call Coumadin Clinic at [phone] to confirm dosing and schedule follow-up Patient advised to call the PAC with any medication changes, bleeding/bruising concerns, recent changes in vitamin k consumption, if any procedures are coming up, if they have been ill or in the hospital, and if they have missed any doses of warfarin. Milla Douglas [facility] Clinical Pharmacist, Pharmacy Anticoagulation Clinic Pharmacy Anticoagulation Clinic Pager: [phone]. Milla Douglas RPh 11/17/2024 3:07 PM Signed [...] an injectable anticoagulant - No Milla Douglas [facility] Milla Douglas [facility] 12/01/2024 2:59 PM Signed Chavo Jens Cavanaugh was sent [employer] message and reminded to test INR today [...] Other Visit Diagnoses:Paroxysmal atrial fibrillation (HCC) [I48.0] USP (current) use of anticoagulants [Z79.01] Order(s):INR [[id number]] Order #: [id number] Prescriptions as of 12/07/2024 - doxycycline (VIBRA-TABS) [...] - calciu (more content not included)... Normal [facility] SCREENING W TOMOon 11-03 WERO SCREENING W HAYLEE * * *Final Report* * * DATE OF EXAM: Nov 03 2024 7:29AM [facility] 0582 - [facility] SCREENING W HAYLEE / PROCEDURE REASON: Encounter for screening mammogram for breast cancer * * * * Physician Interpretation * * * * RESULT: [place] [address] #[id number] - [facility] SCREENING W HAYLEE HISTORY: 44 year-old [...] Ju Saunders D.O. Electronically signed on: 11/04/2024 Social Services: LARA Transcribe Date/Time: Nov 03 2024 7:20A Dictated by: JU SAUNDERS, DO This examination was interpreted and the report reviewed and electronically signed by: BURAK TRAVIS MD on Nov 04 2024 8:58AM EST [id number] Normal [facility] INRon 11-02-2024 INR Coag (Bld) [Relative time] 1.8 {INR} [facility] CNPNon 10-13-2024 CNPN Telephone (PHARBW) CHAVO CAVANAUGH ([id number]) 1980 F Date Time Provider Department 10/13/24 MILLA DOUGLAS During your visit today, we recorded the following information about you: Milla Douglas RPh 10/13/2024 8:02 AM Signed Chavo Moody [id number] was originally referred to the Pharmacy Anticoagulation [...] Clinic Pharm if you are agreeable (order #[id number]). Diagnosis:Atrial Fibrillation INR Range: 2 to 3 Duration: Indefinite Please feel free to contact me with any questions or concerns. 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 [facility]N Telephone (PHARBW) CHAVO CAVANAUGH ([id number]) 1980 F Date Time Provider Department 09/14/24 MILLA DOUGLAS PHAANANT During your visit today, we recorded the following information about you: Milla Douglas RPh 09/14/2024 9:01 AM Signed Paged by INR 09/14 at 7am. Pt's INR was 1.2 at 6:02am today. Sera (Inbound Call Center Agent)Bernardo 09/14/2024 9:19 AM Signed Received fax from [facility] with INR results for patient. Patient tested on 09/14/2024 and the INR result was 1.2. Fax can be found under scanned documents as miscellaneous lab result. It may take a few minutes to transfer from [employer]. PT INR (no units) Date Value 09/14/2024 1.2 07/28/2024 2.1 07/20/2024 2.7 Patient removed from discharge list. Bernardo Zamora, Head Of Conservation (scutcher tender) Pharmacy Anticoagulation Clinic Milla Douglas RPh 09/14/2024 2:17 PM Signed [facility] Ambulatory Pharmacy Anticoagulation Clinic Anticoagulation Episode Summary Anticoagulation Care Providers Provider Role Specialty Phone number Jayjay Ortiz MD Referring Cardiology [phone] Chavo Cavanaugh is a 44 year old year old [...] 10mg today and Call Coumadin Clinic at [phone] [facility] to discuss recent dosing of warfarin, what may have caused INR result, etc Will f/u again tomorrow Milla Douglas [facility] Clinical Pharmacist, Pharmacy Anticoagulation Clinic Pharmacy Anticoagulation Clinic Pager: [phone]. Milla Douglas [facility] 09/15/2024 7:08 AM Signed [facility] Ambulatory Pharmacy Anticoagulation Clinic Anticoagulation Episode Summary Anticoagulation Care Providers Provider Role Specialty Phone number Jayjay Ortiz MD Referring Cardiology [phone] Chavo Cavanaugh is a 44 year old year old [...] unspecified type (hcc) Paroxysmal atrial fibrillation (hcc) USP (current) use of anticoagulants Anticoagulation Episode Summary Current INR goal: 2.0-3.0 Assessment: INR result of 1.2 is SUBtherapeutic due to: unknown cause - did not speak to patient Plan: Current Warfarin Dosing As of 09/14/2024 Full warfarin instructions: 09/14: 10 mg; 09/15: 12.5 mg; Otherwise 10 mg every Mon, Diane; 7.5 mg all other days Left voice message And sent [employer] message Advised patient to increase dose for 2 days only then resum (more content not included)... Normal [facility] INRon 09-14-2024 INR Coag (Bld) [Relative time] 1.2 {INR} [facility] CNOVon 09-07-2024 CNOV Office Visit (CARDMN) CHAVO CAVANAUGH ([id number]) 1980 F Date Time Provider Department 09/07/24 9:00 AM ONEYDA RECINOS During your visit today, we recorded the following information about you: Pulse Blood pressure Weight Height 45/minute 107/62 69.9 kg 1.727 m Oneyda Recinos MD 09/12/2024 5:19 PM Signed [facility] Department of Cardiovascular Medicine SECTION OF CARDIAC PACING and ELECTROPHYSIOLOGY OUTPATIENT VISIT DATE September 07, 2024 OUTPATIENT VISIT TYPE Established CHIEF COMPLAINT: AF IMPRESSION/PLAN: Chavo Cavanaugh is a very pleasant female patient with [...] develops symptoms. 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 Normal [facility] ECG COMPLETEon 09-07-2024 ECG COMPLETE Ventricular Rate : 42 BPM Atrial Rate : 42 BPM P-R Interval : 140 ms QRS Duration : 128 ms Q-T Interval : 518 ms QTC Calculation(Bazett) : 432 ms Calculated P [place] : 45 degrees Calculated R [place] : 32 degrees Calculated T [place] : 88 degrees MARKED SINUS BRADYCARDIA COMPLETE LEFT BUNDLE BRANCH BLOCK ABNORMAL ECG Confirmed by MD AUTUMN, HEBA ([id number]) on 10/04/2024 7:16:37 PM NAME : CHAVO CAVANAUGH PID : [id number] : 1980 Gender : Female Race : ORD : [id number] Procedure Date : Sep 07 2024 08:54:17 Edit Date : Oct 04 2024 19:16:41 Diagnosis: MARKED SINUS BRADYCARDIA COMPLETE LEFT BUNDLE BRANCH BLOCK ABNORMAL ECG Confirmed by MD LEYVA HEBA ([id number]) on 10/04/2024 7:16:37 PM Test Reason : Location : 314 : J14 J1-4 Overread By : MD LEYVA HEBA Edited By : MD LEYVA HEBA Referred By : , Acquired by : MISTI MOURA [facility] Urgent Care Visit Reporton 1 10-31-2023 Urgent Care Visit Report [facility] [address], [address] [place] [address] OFFICE VISIT Date of Service: 08/31/24 MR#: [id number] Acct: [id number] Name: CHAVO CAVANAUGH Rep #: [id number] : 1980 Provider: HALEY Ramirez Age/Sex: 44/F Location: [facility] Status: Signed Intake Vital Signs 08/26/24 05:40 [...] LAY Chief Complaint: Suture removal/ Frito lay Health Systems Analyst Required: No Is patient in pain?: No Allergies metformin Adverse Reaction (Verified 08/26/24 05:40) Nausea/Vom/Diarrhea NSAIDS (Non-Steroidal Anti-Inflamma Adverse Reaction (Verified 08/26/24 05:40) Other Is last menstrual period known: No Post menopausal: No Patient : No Have you fallen in the past year?: No Nurse's Note: patient here for suture removal for frito lay. [facility] Medical History Presence of combination internal cardiac [...] Complaint: Suture removal/ Frito lay Details: CHAVO CAVANAUGH, is a 44 F who presents to the office today for follow-up of a work-related injury which occurred on 08/26/2024. On that date the patient had a lead to fall onto her face causing a small laceration above her left eye. She was treated at [facility] ED and had suture repair. Patient states that since then she has had no complications and denies any headaches, vision change or syncopal/near syncopal episodes. No other associated symptoms or alleviating/aggravat ing factors. ROS Const Constitutional: No other (6 system ROS completed with pertinent findings in the HPI otherwise normal.) Exam Const General: cooperative and healthy appearing [facility] Head: normocephalic and atraumatic Other: Small laceration [...] Cosigner Signature: Date (if applicable) CC: Normal [facility] Brain/Head without Contrast n 08-26-2024 Brain/Head without Contrast [facility] Imaging Services [address] [place], [place] [address] Brain/Head without Contrast MR#: [id number] Acct: [id number] Name: CHAVO CAVANAUGH Rep #: [id number] : 1980 F 44 From: Lashonda Phan PCP: HALEY Rios Status: REG ER Study: Brain/Head without Contrast Date of Exam: 08/06 11/28 Exam# [id number] Ordering Dr: Rogelio Campuzano DO [id number] INDICATION: Trauma EXAMINATION: CT BRAIN - CT [...] 6:49 EST Reading Location ID and State: [employer] / ID Tel , Service support , CC: Dr. Rogelio Campuzano DO; HALEY Rios Social Services: Signed Normal [facility] Emergency Department Summary on 08-26-2024 Emergency Department Summary [facility] Medical Records Department [address] [place] [address] Emergency Department Summary 08/26/24 MR#: [id number] Acct: [id number] Name: CHAVO CAVANAUGH Rep #: [id number] : 1980 44 From: Rogelio Campuzano DO [...] 15 Psych: Cooperative, appropriate mood and affect [facility] Medical History Presence of combination internal cardiac [...] Hemoglobin (Bld) [Mass/Vol] 12.6 g/dL Normal 12.0-15.0 [facility] Comment on above: Performed By: #### L 300.3900, L100.1300 ####[facility] [address] [place], [address] Office Visit Reporton [address] [facility] Services [address] [place] [place] [address] OFFICE VISIT Date of Service: 08/26/24 MR#: [id number] Acct: [id number] Patient: CHAVO CAVANAUGH Rep #: [id number] : 1980 Provider: HALEY Ramirez Age/Sex: 44/F Location: [facility] Status: Signed Intake Vital Signs 08/26/24 05:40 [...] Montgomery Signature: Date (if applicable) CC: Normal [facility] Prothrombin Time w/INRon INR Coag (PPP) [Relative time] 1.5 {INR} Normal [facility] Comment on above: Performed By: #### L 300.3900, L100.1300 #### [facility] [address] [place], [place], [address] PT Coag (PPP) [Time] 18.2 s High 11.7-14.9 [facility] Comment on above: Performed By: #### L 300.3900, L100.1300 #### [facility] [address] [place], [place], [address] Sinus/Facial Boneon 08-26-20 Sinus/Facial Bone [facility] Imaging Services [address] [place] [address] Sinus/Facial Bone MR#: [id number] Acct: [id number] Name: CHAVO CAVANAUGH Rep #: [id number] : 1980 F 44 From: Lashonda Phan PCP: HALEY Rios Status: REG ER Study: Sinus/Facial Bone Date of Exam: 08/26/24 Exam# [id number] Ordering Dr: Rogelio Campuzano DO [id number] INDICATION: Trauma EXAMINATION: CT FACIAL BONES - [...] 6:55 EST Reading Location ID and State: [facility] / ID Tel , Service support , CC: Dr. Rogelio Campuzano DO; HALEY Rios Social Services: Signed Normal [facility] Spine Cervical without Contr ason 08-26-2024 Spine Cervical without Contras [facility] Imaging Services [address] [place] [address] Spine Cervical without Contras MR#: [id number] Acct: [id number] Name: CHAVO CAVANAUGH Rep #: [id number] : 1980 F 44 From: Lashonda Phan PCP: HALEY Rios Status: REG ER Study: Spine Cervical without Contras Date of Exam: 10/26/23 Exam# [id number] Ordering Dr: Rogelio Campuzano DO [id number] INDICATION: Trauma EXAMINATION: CT CERVICAL SPINE - [...] CC: Dr. 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 As applicable, any other physician, advance practice provider, medical student, or other health professional student that will be observing or involved in the sensitive examination for educational or training purposes was discussed with the Patient or Authorized Occ Therapist. The Patient or Authorized Occ Therapist has agreed to proceed with the sensitive examination. (Sensitive examination includes inspection and/or palpation of the breasts, pelvis, prostate and anorectal regions). EXAM: BP 110/64 Ht 5' 9 (1.75m) Wt 155 lb (70.3kg) LMP 01/06/2012 [...] effort ABD (more content not included)... Normal [facility] HIGH RISK HUMAN [place]AP[place]IE (HPV), PCR FOR DETECTION AND GENOTYPINGon 08-25-2024 HPV 16 Ag Ql (Unsp spec) Not detected Normal Not detec sheron [facility] Comment on above: Order Comment: Speci men Type: FLUID SPECIMENOrdering Facility: [facility] Address: [address] [place] [address] Performed By: #### H PVHRT ####[facility] [id number] [place] [address] [place] HPV 18 Ag Ql (Unsp spec) Not detected Normal Not detec sheron [facility] Comment on above: Order Comment: Speci men Type: FLUID SPECIMENOrdering Facility: [facility] Address: [address] [place] [address] Performed By: #### H PVHRT ####[facility] [id number] [place] [address] [place] HPV 31+33+35+39+45+51+52+56+ 58+59+66+68 DNA LAUREN+probe Ql (Cvx) Not detected Normal Not detected [facility] Comment on above: Order Comment: Speci men Type: FLUID SPECIMENOrdering Facility: [facility] Address: [address] [place] [address] Result Comment: High Risk HPV Other Type includes HPV types 31, 33, 35, 39, 45, 51, 52, 56, 58, 59, 66 and 68. Performed By: #### H PVHRT ####[facility] [id number] [place] [address] [place] PAP TESTon 08-25-2024 ADEQUACY Satisfactory for interpretation. Normal [facility] Comment on above: Order Comment: Speci men Type: FLUID SPECIMENOrdering Facility: [facility] Address: [address] [place] [address] Performed By: #### L [id number] ####[facility] [id number] [place] [address] [place] CASE REPORT Normal [facility] Comment on above: Order Comment: Speci men Type: FLUID SPECIMENOrdering Facility: [facility] Address: [address] [place] [address] Result Comment: Gyne cologic Cytology Report Case: [id number] Authorizing Provider: Alec Blair APRN.WATER RESOURCE PROJECT MANAGER Collected: 08/25/2024 08:16 AM Ordering Location: OB/Gynecology Received: 08/25/2024 08:59 AM First Screen: Alec Todd, WILFRED, ASCP Specimen: Pap Test, ThinPrep, Cervix Performed By: #### L [id number] ####[facility] [id number] [place] [address] [place] CLINICAL HISTORY, CYTOLOGY, TAXATION ECONOMIST Routine Exam Normal [facility] Comment on above: Order Comment: Speci men Type: FLUID SPECIMENOrdering Facility: [facility] Address: [address] [place] [address] Result Comment: Intr a Uterine Device, No Menses Performed By: #### L [id number] ####[facility] [id number] [place] [address] [place] FINAL PERFORMING LAB Normal [facility] Comment on above: Order Comment: Speci men Type: FLUID SPECIMENOrdering Facility: [facility] Address: [address] [place] [address] Result Comment: Tech nical component, back strip machine operator screening performed at [facility], [address], [place] [address] CLIA# [id number] Diagnostic interpretation performed at [facility], [address], [place] [address] CLIA# [id number] Gis Web Developer: Neda Granados M.D. Performed By: #### L [id number] ####[facility] [id number] [place] [address] [place] INTERPRETATION, CYTOLOGY, TAXATION ECONOMIST Normal [facility] Comment on above: Order Comment: Speci men Type: FLUID SPECIMENOrdering Facility: [facility] Address: [address] [place] [address] Result Comment: Nega tive for intraepithelial lesion or malignancy. Performed By: #### L [id number] ####[facility] [id number] [place] [address] [place] PAP DISCLAIMER COMMENT The Pap Smear is a screening test for cervical cancer. False negative results occur with all screening tests, emphasizing the need for rescreening at recommended intervals, and clinical correlation. Normal [facility] Comment on above: Order Comment: Speci men Type: FLUID SPECIMENOrdering Facility: [facility] Address: [address] [place] [address] Performed By: #### L [id number] ####[facility] [id number] [address] OF [facility] PAP BOTTOM LINER COMMENT This specimen has been analyzed by the ThinPrep Imaging System, an automated imaging and review system, which assists the laboratory in evaluating cells on ThinPrep Pap tests. Following automated imaging, selected he from every slide are reviewed by a back strip machine operator. Normal [facility] Comment on above: Order Comment: Speci men Type: FLUID SPECIMENOrdering Facility: [facility] Address: [address] [place] [address] Performed By: #### L [id number] ####[facility] [id number] [address] [place] INR FINGERSTICK B/Oon 2023 INR Coag (Bld) [Relative time] 2.1 {INR} [facility] INR FINGERSTICK B/Oon 2023 INR Coag (Bld) [Relative time] 2.7 {INR} [facility] CBC W Auto Differential pane l (Bld)on 07-14-2024 Basophils (Bld) [#/Vol] 0.07 10*3/uL [facility] Basophils/100 WBC (Bld) 0.8 % [facility] Differential cell count method Nom (Bld) Auto [facility] Eosinophils (Bld) [#/Vol] 0.17 10*3/uL [facility] Eosinophils/100 WBC (Bld) 2.0 % [facility] Erythrocyte distribution width (RBC) [Ratio] 13.5 % 11.5 - 15.0 % [facility] Hematocrit (Bld) [Volume fraction] 40.6 % 36.0 - 46.0 % [facility] Hemoglobin (Bld) [Mass/Vol] 13.3 g/dL 11.5 - 15.5 g/dL [facility] Immature granulocytes (Bld) [#/Vol] 0.03 10*3/uL [facility] Immature granulocytes/100 WBC (Bld) 0.4 % [facility] Lymphocytes (Bld) [#/Vol] 2.34 10*3/uL [facility] Lymphocytes/100 WBC (Bld) 27.9 % [facility] MCH (RBC) [Entitic mass] 29.2 pg 26. 0 - 34.0 pg [facility] MCHC (RBC) [Mass/Vol] 32.8 g/dL 30.5 - 36.0 g/dL [facility] MCV (RBC) [Entitic vol] 89.2 fL 80.0 - 100.0 fL [facility] Monocytes (Bld) [#/Vol] 0.46 10*3/uL [facility] Monocytes/100 WBC (Bld) 5.5 % [facility] Neutrophils (Bld) [#/Vol] 5.31 10*3/uL [facility] Neutrophils/100 WBC (Bld) 63.4 % [facility] Nucleated RBC (Bld) [#/Vol] [facility] Nucleated RBC/100 WBC (Bld) [Ratio] 0.0 % /100 WBC [facility] Platelet mean volume (Bld) [Entitic vol] 11.2 fL 9.0 - 12.7 fL [facility] Platelets (Bld) [#/Vol] 383 10*3/uL [facility] RBC (Bld) [#/Vol] 4.55 10*6/uL 3.90 - 5.2 0 m/uL [facility] WBC (Bld) [#/Vol] 8.38 10*3/uL [facility] INRon 07-13-2024 INR Coag (Bld) [Relative time] 3.5 {INR} [facility] INRon 07-07-2024 INR Coag (Bld) [Relative time] 2.0 {INR} [facility] INR FINGERSTICK B/Oon 2023 INR Coag (Bld) [Relative time] 2.3 {INR} [facility] INRon 06-17-2024 INR Coag (Bld) [Relative time] 3.3 {INR} [facility] INRon 06-02-2024 INR Coag (Bld) [Relative time] 1.6 {INR} [facility] INR FINGERSTICK B/Oon 2023 INR Coag (Bld) [Relative time] 1.9 {INR} [facility] INR FINGERSTICK B/Oon 2023 INR Coag (Bld) [Relative time] 2.3 {INR} [facility] INR FINGERSTICK B/Oon 2023 INR Coag (Bld) [Relative time] 2.4 {INR} [facility] INR FINGERSTICK B/Oon 2023 INR Coag (Bld) [Relative time] 1.7 {INR} [facility] HISTORY PHYSICALon HISTORY PHYSICAL HNO ID: [id number] Author: TRI HAMMOND MD Service: Ophthalmology Author Type: Physician Type: [...] be found in the attached. SIGNATURE: Tri Hammond MD PATIENT NAME: Chavo Cavanaugh DATE: May 03, 2024 TIME: 2:22 PM [facility] OPERATIVE NOon 05-03-2024 OPERATIVE NO HNO ID: [id number] Author: TRI HAMMOND MD Service: Ophthalmology Author Type: Physician Type: Operative Report Filed: 05/03/2024 14:55 Note Text: OPERATIVE/PROCEDURE REPORT OPHTHAMOLOGY LOG ID: [id number] SURGERY/PROCEDURE DATE: 05/03/2024 INCISION/PROCEDURE START TIME: 2:30 PM INCISION CLOSE/PROCEDURE END TIME: 2:48 PM SURGEON(S)/PROCEDURA LIST(S) AND RANGE AIDE(S): Surgeon(s) and Role: * Tri Hammond MD - Primary PROCEDURE(S): Procedure(s) (LRB): KERATECTOMY [...] leaving a 1mm residual ring peripherally. A [place] blade was used to remove any remaining islands. A loretta swetha was used to gently malaysian the cornea. An ambiodisc followed by a bandage contact lens were placed.The operated eye and it was covered with a protective shield. The patient was transferred to the recovery room in stable condition. ESTIMATED BLOOD LOSS: Minimal unless noted here. SPECIMENS: * No specimens in log * IMPLANTABLE DEVICES: Implant Name Type Inv. Item Serial No. Dispatcher Clerk Lot No. LRB No. Used Action Model No. GRAFT AMBIO2 12MM AMBIODISK - [id number] Graft GRAFT AMBIO2 12MM AMBIODISK [id number] [employer] Right 1 Implanted [id number] Ocular Co-Morbidities: No Intra-operative Complications None I/primary surgeon/proceduralis t performed the entire procedure. SIGNATURE: Tri Hammond MD PATIENT NAME: Chavo Cavanaugh DATE: May 03, 2024 TIME: 2:53 PM PAGER/CONTACT #: [phone] [facility] INR FINGERSTICK B/Oon 2023 INR Coag (Bld) [Relative time] 3.6 {INR} [facility] INR FINGERSTICK B/Oon 2023 INR Coag (Bld) [Relative time] 1.6 {INR} [facility] INR FINGERSTICK B/Oon 2023 INR Coag (Bld) [Relative time] 1.3 {INR} [facility] INR FINGERSTICK B/Oon 2023 INR Coag (Bld) [Relative time] 2.0 {INR} [facility] INR FINGERSTICK B/Oon 2023 INR Coag (Bld) [Relative time] 2.7 {INR} [facility] INR FINGERSTICK B/Oon 2023 INR Coag (Bld) [Relative time] 1.8 mdinr [facility] INR FINGERSTICK B/Oon 2023 INR Coag (Bld) [Relative time] 3.6 mdINR [facility] ICD REMOTE CHECKon Detection Configuration (Vent) 2 - Zone [facility] FastVT_Detection Interval 273 ms [facility] FastVT_Therapy Configuration 0 ATP(s) + 1 Shock(s) [facility] ICD FastVT DetectionStatus ENABLED [facility] ICD-Device Mfg BSX [facility] [id number] [facility] ICD-SHOCKSDELIVEREDVENTR ICULAR 0 [facility] Implant Date 05/16/2021 [facility] Implant Date 02/24/2014 [facility] Lead1 Mfg BSX [facility] Location RV [facility] MDT_PROG_TACHY_ZONE_DETE CTIONS_STATUS ENABLED [facility] Model A219 EMBLEM MRI S-ICD [facility] Model 3010 Q-Trak SQ Electrode [facility] Serial Number [id number] [facility] Serial Number [id number] [facility] Therapy Status (Vent) Enabled [facility] VF Zone Detection Interval 250 ms [facility] VF Zone Therapy Configuration 0 ATP(s) + 1 Shock(s) [facility] 02/04/2024 SUBQ ICD EVALUATION: PRESENTING: SR BATTERY STATUS: Remaining battery life to [place] is 70% ELECTRODE: OK. ARRHYTHMIAS: There have not been any ventricular detections or therapy delivered since the last evaluation. SMART PASS: ON FOLLOW UP: Continue remote transmissions every 3 months and yearly in-clinic visits. Penelope Lenz RN NOTE TO PROVIDERS: CARD Flowsheets contain detailed device programming and testing data. Paceart/Interrogatio n PDF can be found under CARDIAC DATA AND REPORT, Scanned Documents section. [facility] No Panel Informationon 02-03 BLANK _ [facility] INR FINGERSTICK B/Oon 2023 INR Coag (Bld) [Relative time] 2.6 [facility] Absolute lymphocyte countOrd ered By: Bharath Chinchilla on 01-18-2024 Lymphocytes Auto (Unsp spec) [#/Vol] 3.80 10*3/uL 0.83-4.51 [facility] Activated partial thrombopla stin time (aPTT) in platelet poor plasma by coagulation aOrdered By: Bharath Chinchilla on 01-18-2024 aPTT Coag (PPP) [Time] 39.7 s 24.1-36.2 [facility] Automated lymphocyte count a s percentage of total leukocytesOrdered By: Bharath Chinchilla on 01-18-2024 Lymphocytes/100 WBC Auto (Unsp spec) 41.9 % 19-41 [facility] Basophil percentageOrdered B y: Bharath Chinchilla on 01-18-2024 Basophils/100 WBC (Bld) 0.9 % 0-[address] [facility] Chloride [Moles/Vol] 107 mmol/L 98-107 [facility] Eosinophils/100 WBC (Bld) 2.5 % 0-5 [facility] Glucose [Mass/Vol] 125 mg/dL 74-106 [facility] Comment on above: Fasting Glucose resu lt from 100 to 125 mg/dL suggests IMPAIRED HOMEOSTASIS per A.D.A. criteria. Hemoglobin (Bld) [Mass/Vol] 13.6 g/dL 12.0-15.0 [facility] Monocytes/100 WBC (Bld) 6.6 % 0-10 [facility] Neutrophils (Bld) [#/Vol] 4.4 10*3/uL 2.0-7.7 [facility] Neutrophils/100 WBC (Bld) 48.0 % 47-70 [facility] Potassium [Moles/Vol] 3.7 mmol/L 3.5-5.1 [facility] Sodium [Moles/Vol] 140 mmol/L 136-145 [facility] WBC (Bld) [#/Vol] 9.1 10*3/uL 4.4-11.0 [facility] Determination of erythrocyte mean corpuscular volume (MCV)Ordered By: Bharath Chinchilla on 01-18-2024 MCV (RBC) [Entitic vol] 86.8 fL 81-[address] [facility] Erythrocyte distribution wid th ratioOrdered By: Bharath Chinchilla on 01-18-2024 Erythrocyte distribution width (RBC) [Ratio] 13.9 % 11.6-14.6 [facility] Erythrocyte distribution wid th standard deviationOrdered By: Bharath Chinchilla on 01-18-2024 Erythrocyte distribution width (RBC) [Entitic vol] 44.7 fL 35.1-43.9 [facility] Hematocrit Auto (Bld) [Volum e fraction]Ordered By: Bharath Chinchilla on 01-18-2024 Hematocrit (Bld) [Volume fraction] 41.4 % 37-47 [facility] Immature granulocytes/100 WB C Auto (Bld)Ordered By: Bharath Chinchilla on 01-18-2024 Immature granulocytes/100 WBC (Bld) 0.100 % 0.0-0.9 [facility] Comment on above: IG% - Immature Granu locytes (promyelocytes, myelocytes and metamyelocytes) > 1% indicates that a LEFT SHIFT is Present. Laboratory - Chemistry and C hemistry - challengeOrdered By: Bharath Chinchilla on 01-18-2024 CO2 [Moles/Vol] 27.0 mmol/L 21.0-32.0 [facility] Magnesium [Mass/Vol] 2.1 mg/dL 1.6-2.6 [facility] Urea nitrogen/Creatinine [Mass ratio] 22.6 mg/mg 10-20 [facility] Laboratory - CoagulationOrde red By: Bharath Chinchilla on 01-18-2024 INR Coag (Bld) [Relative time] 3.4 {INR} [facility] PT Coag (PPP) [Time] 34.1 s 11.7-14.9 [facility] Laboratory - Hematology and Cell countsOrdered By: Bharath Chinchilla on 01-18-2024 MCH (RBC) [Entitic mass] 28.5 pg 27.0-32.0 [facility] MCHC (RBC) [Mass/Vol] 32.9 g/dL 32-36 [facility] Nucleated RBC/100 WBC (Bld) [Ratio] 0 % 0-5 [facility] Platelet mean volume (Bld) [Entitic vol] 10.9 fL 6.2-12.0 [facility] Platelets (Bld) [#/Vol] 366 10*3/uL 150-450 [facility] No Panel InformationOrdered By: Bharath Chinchilla on 01-18-2024 Estimated Creatinine Clearance Calc 118.02 ml/min [facility] Estimated GFR (MDRD) Amer 135 mL/min >60 [facility] Comment on above: GFR Calc Estimated GFR (MDRD) Non-Af Amer 111 mL/min >60 [facility] Comment on above: Non- GFR Calc RBC Auto (Bld) [#/Vol]Ordere d By: Bharath Chinchilla on 01-18-2024 RBC (Bld) [#/Vol] 4.77 10*6/uL 4.2-5.4 [facility] Serum or plasma calcium eunice urement (mass/volume)Ordered By: Bharath Chinchilla on 01-18-2024 Calcium [Mass/Vol] 8.9 mg/dL 8.5-10.1 [facility] Serum or plasma choriogonado tropin detectionOrdered By: Bharath Chinchilla on 01-18-2024 HCG ( test) Ql Negative [facility] Serum or plasma creatinine m easurement (mass/volume)Ordered By: Bharath Chinchilla on 01-18-2024 Creatinine [Mass/Vol] 0.62 mg/dL 0.55-1.02 [facility] Comment on above: The validity of the calculated GFR & GFRAA in patients over 70 years has not been determined. Clinical correlation is essential. Serum or plasma thyroid stim ulating hormone (TSH) measurement (units/volume)Ordered By: Bharath Chinchilla on 01-18-2024 TSH Qn 2.47 uIU/mL 0.358-3.74 [facility] Serum or plasma urea nitroge n measurement (mass/volume)Ordered By: Bharath Chinchilla on 01-18-2024 Urea nitrogen [Mass/Vol] 14 mg/dL 7-18 [facility] Thin prep Papanicolaou smear with manual screeningOrdered By: Bharath Chinchilla on 01-18-2024 Thin prep Papanicolaou smear with manual screening 6 5-15 [facility] INR FINGERSTICK B/Oon 2023 INR Coag (Bld) [Relative time] 2.7 mdINR [facility] ICD CLINIC CHECKon Detection Configuration (Vent) 2 - Zone [facility] FastVT_Detection Interval 272 ms [facility] FastVT_Therapy Configuration 0 ATP(s) + 1 Shock(s) [facility] ICD FastVT DetectionStatus ENABLED [facility] ICD-Device Mfg BSX [facility] ICD-Rhythm SB 42 bpm. [facility] [id number] 0 [facility] ICD-SHOCKSDELIVEREDVENTR ICULAR 0 [facility] Implant Date 05/16/2021 [facility] Implant Date 02/24/2014 [facility] Lead1 Mfg BSX [facility] Location RV [facility] MDT_PROG_TACHY_ZONE_DETE CTIONS_STATUS ENABLED [facility] Model A219 EMBLEM MRI S-ICD [facility] Model 3010 Q-Trak SQ Electrode [facility] Serial Number [id number] [facility] Serial Number [id number] [facility] Therapy Status (Vent) Enabled [facility] VF Zone Detection Interval 250 ms [facility] VF Zone Therapy Configuration 0 ATP(s) + 1 Shock(s) [facility] No Panel Informationon 12-27 BLANK _ [facility] INR FINGERSTICK B/Oon 2023 INR Coag (Bld) [Relative time] 3.7 MDINR [facility] INR FINGERSTICK B/Oon 2023 INR Coag (Bld) [Relative time] 2.3 mdINR [facility] INR FINGERSTICK B/Oon 2023 INR Coag (Bld) [Relative time] 1.2 mdINR [facility] INR FINGERSTICK B/Oon 2023 INR Coag (Bld) [Relative time] 2.3 mdINR [facility] INR FINGERSTICK B/Oon 2023 INR Coag (Bld) [Relative time] 2.0 mdINR [facility] INR FINGERSTICK B/Oon 2023 INR Coag (Bld) [Relative time] 2.4 mdINR [facility] WERO DIAG W HAYLEE LEFTon 11-11 [facility] ICD REMOTE CHECKon Detection Configuration (Vent) 2 - Zone [facility] FastVT_Detection Interval 273 ms [facility] FastVT_Therapy Configuration 0 ATP(s) + 1 Shock(s) [facility] ICD FastVT DetectionStatus ENABLED [facility] ICD-Device Mfg BSX [facility] [id number] 0 [facility] ICD-SHOCKSDELIVEREDVENTR ICULAR 0 [facility] Implant Date 05/16/2021 [facility] Implant Date 02/24/2014 [facility] Lead1 Mfg BSX [facility] Location RV [facility] MDT_PROG_TACHY_ZONE_DETE CTIONS_STATUS ENABLED [facility] Model A219 EMBLEM MRI S-ICD [facility] Model 3010 Q-Trak SQ Electrode [facility] Serial Number [id number] [facility] Serial Number [id number] [facility] Therapy Status (Vent) Enabled [facility] VF Zone Detection Interval 250 ms [facility] VF Zone Therapy Configuration 0 ATP(s) + 1 Shock(s) [facility] No Panel Informationon 11-05 BLANK _ [facility] No Panel Informationon 09-11 IMPRESSION: 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 Social Services: CLAUDIA Transcribe Date/Time: Sep 11 2023 1:46P Dictated by : CATHY BELLA DO This examination was interpreted and the report reviewed and electronically signed by: CATHY BELLA DO on Sep 11 2023 1:52PM [facility] DIVISION OF RADIOLOGY Radiology Study observation (narrative) Amanda phan [facility] No Panel InformationOrdered By: Ccf Provider on 09-11-2023 [facility] XR Lumbar spine 3 Viewson * [...] in the pelvis. DIVISION OF RADIOLOGY Provider, [facility] [place] - 09/11/2023 * * *Final Report* * [...] 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 Social Services: CLAUDIA Transcribe Date/Time: Sep 11 2023 1:46P Dictated by : CATHY BELLA DO This examination was interpreted and the report reviewed and electronically signed by: CATHY BELLA DO on Sep 11 2023 1:52PM [facility] XR Pelvis and Hip - left [...] in the pelvis. DIVISION OF RADIOLOGY Provider, [facility] [place] - 09/11/2023 * * *Final Report* * [...] 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 Social Services: PSCB Transcribe Date/Time: Sep 11 2023 1:46P Dictated by : CATHY BELLA DO This examination was interpreted and the report reviewed and electronically signed by: CATHY BELLA DO on Sep 11 2023 1:52PM [facility] INR FINGERSTICK B/Oon 2022 INR Coag (Bld) [Relative time] 1.8 mdINR [facility] INR FINGERSTICK B/Oon 2022 INR Coag (Bld) [Relative time] 1.3 MDINR [facility] ICD CLINIC CHECKon 3 Detection Configuration (Vent) 2 - Zone [facility] FastVT_Detection Interval 272 ms [facility] FastVT_Therapy Configuration 0 ATP(s) + 1 Shock(s) [facility] ICD FastVT DetectionStatus ENABLED [facility] ICD-Device Mfg BSX [facility] [id number] 0 [facility] ICD-SHOCKSDELIVEREDVENTR ICULAR 0 [facility] Implant Date 05/16/2021 [facility] Implant Date 02/24/2014 [facility] Lead1 Mfg BSX [facility] Location RV [facility] MDT_PROG_TACHY_ZONE_DETE CTIONS_STATUS ENABLED [facility] Model A219 [place] MRI S-ICD [facility] Model 3010 Q-Trak SQ Electrode [facility] Serial Number [id number] [facility] Serial Number [id number] [facility] Therapy Status (Vent) Enabled [facility] VF Zone Detection Interval 250 ms [facility] VF Zone Therapy Configuration 0 ATP(s) + 1 Shock(s) [facility] ICD REMOTE CHECKon 3 Detection Configuration (Vent) 2 - Zone [facility] FastVT_Detection Interval 273 ms [facility] FastVT_Therapy Configuration 0 ATP(s) + 1 Shock(s) [facility] ICD FastVT DetectionStatus ENABLED [facility] ICD-Device Mfg BSX [facility] [id number] 0 [facility] ICD-SHOCKSDELIVEREDVENTR ICULAR 0 [facility] Implant Date 05/16/2021 [facility] Implant Date 02/24/2014 [facility] Lead1 Mfg BSX [facility] Location RV [facility] MDT_PROG_TACHY_ZONE_DETE CTIONS_STATUS ENABLED [facility] Model A219 EMBM MRI S-ICD [facility] Model 3010 Q-Trak SQ Electrode [facility] Serial Number [id number] [facility] Serial Number [id number] [facility] Therapy Status (Vent) Enabled [facility] VF Zone Detection Interval 250 ms [facility] VF Zone Therapy Configuration 0 ATP(s) + 1 Shock(s) [facility] No Panel Informationon 08-05 BLANK _ [facility] BLANK _ [facility] INR FINGERSTICK B/Oon 2022 INR Coag (Bld) [Relative time] 2.0 mdINR [facility] ICD REMOTE CHECKon 3 Detection Configuration (Vent) 2 - Zone [facility] FastVT_Detection Interval 273 ms [facility] FastVT_Therapy Configuration 0 ATP(s) + 1 Shock(s) [facility] ICD FastVT DetectionStatus ENABLED [facility] ICD-Device Mfg BSX [facility] [id number] 0 [facility] ICD-SHOCKSDELIVEREDVENTR ICULAR 0 [facility] Implant Date 05/16/2021 [facility] Implant Date 02/24/2014 [facility] Lead1 Mfg BSX [facility] Location RV [facility] MDT_PROG_TACHY_ZONE_DETE CTIONS_STATUS ENABLED [facility] Model A219 EMBLEM MRI S-ICD [facility] Model 3010 Q-Trak SQ Electrode [facility] Serial Number [id number] [facility] Serial Number [id number] [facility] Therapy Status (Vent) Enabled [facility] VF Zone Detection Interval 250 ms [facility] VF Zone Therapy Configuration 0 ATP(s) + 1 Shock(s) [facility] No Panel Informationon 07-25 [employer] [facility] [employer] [facility] _ [facility] INR FINGERSTICK B/Oon 2022 INR Coag (Bld) [Relative time] 1.8 mdinr [facility] INR FINGERSTICK B/Oon 2022 INR Coag (Bld) [Relative time] 1.6 mdINR [facility] Absolute lymphocyte countOrd ered By: Abhilash Aguilar on 05-03-2023 Lymphocytes Auto (Unsp spec) [#/Vol] 2.50 10*3/uL 0.83-4.51 [facility] Basophil percentageOrdered B y: Abhilash Aguilar on 05-03-2023 Basophil percentage 5-10 SEEN /hpf 0-[address] [facility] Basophils/100 WBC (Bld) 0.9 % 0-[address] [facility] Bilirubin [Mass/Vol] 0.50 mg/dL 0.20-1.00 [facility] Comment on above: For patients on eltr ombopag therapy, use of Dimension [place] TBIL is not recommended. Chloride [Moles/Vol] 109 mmol/L 98-107 [facility] Eosinophils/100 WBC (Bld) 4.3 % 0-5 [facility] Glucose [Mass/Vol] 88 mg/dL 74-106 [facility] Neutrophils (Bld) [#/Vol] 5.1 10*3/uL 2.0-7.7 [facility] Neutrophils/100 WBC (Bld) 58.2 % 47-70 [facility] Potassium [Moles/Vol] 3.7 mmol/L 3.5-5.1 [facility] Protein [Mass/Vol] 7.2 g/dL 6.4-8.2 [facility] Sodium [Moles/Vol] 139 mmol/L 136-145 [facility] WBC (Bld) [#/Vol] 8.8 10*3/uL 4.4-11.0 [facility] Bilirubin Test strip Ql (U)O rdered By: Abhilash Aguilar on 05-03-2023 Bilirubin Ql (U) Negative Negative [facility] Blood erythrocytes count (nu mber/volume)Ordered By: Abhilash Aguilar on 05-03-2023 RBC (Bld) [#/Vol] 4.57 10*6/uL 4.2-5.4 [facility] Blood hemoglobin measurement (mass/volume)Ordered By: Abhilash Aguilar on 05-03-2023 Hemoglobin (Bld) [Mass/Vol] 13.2 g/dL 12.0-15.0 [facility] Blood lymphocytes/100 leukoc ytesOrdered By: Abhilash Aguilar on 05-03-2023 Lymphocytes/100 WBC (Bld) 28.6 % 19-41 [facility] Blood monocytes/100 leukocyt esOrdered By: Abhilash Aguilar on 05-03-2023 Monocytes/100 WBC (Bld) 7.8 % 0-10 [facility] Blood platelet mean volumeOr dered By: Abhilash Aguilar on 05-03-2023 Platelet mean volume (Bld) [Entitic vol] 12.2 fL 6.2-12.0 [facility] Determination of erythrocyte mean corpuscular volume (MCV)Ordered By: Abhilash Aguilar on 05-03-2023 MCV (RBC) [Entitic vol] 88.8 fL 81-[address] [facility] Hematocrit Auto (Bld) [Volum e fraction]Ordered By: Abhilash Aguilar on 05-03-2023 Hematocrit (Bld) [Volume fraction] 40.6 % 37-47 [facility] INR in Blood by Coagulation assayOrdered By: Abhilash Aguilar on 05-03-2023 INR Coag (Bld) [Relative time] 1.5 {INR} [facility] Ketones Test strip Ql (U)Ord ered By: Abhilash Aguilar on 05-03-2023 Ketones Ql (U) 5 mg/dl Negative [facility] Laboratory - Chemistry and C hemistry - challengeOrdered By: Abhilash Aguilar on 05-03-2023 HCG ( test) Ql (U) Negative [facility] Comment on above: Very dilute urine sp ecimens, as indicated by a low specificgravity, may not contain entry level marketing representative levels of hCG. If is still suspected, a first morning urinespecimen should be collected 48 hours later and tested. ALP [Catalytic activity/Vol] 67 U/L 45-117 [facility] ALT [Catalytic activity/Vol] 26 U/L 13-56 [facility] CO2 [Moles/Vol] 25.0 mmol/L 21.0-32.0 [facility] Globulin (S) [Mass/Vol] 3.6 g/dL 2.2-4.[address] [facility] Lipase [Catalytic activity/Vol] 108 U/L 13-75 [facility] Comment on above: Please note:LIPASE r evised reference range effective 23. New Lipase methodology. Expected to produce lower values than the previous assay method. NEW Reference Range: 13 - 75 U/L Urea nitrogen/Creatinine [Mass ratio] 19.8 mg/mg 10-20 [facility] Laboratory - CoagulationOrde red By: Abhilash Aguilar on 05-03-2023 PT Coag (PPP) [Time] 18.1 s 11.7-14.9 [facility] Laboratory - Hematology and Cell countsOrdered By: Abhilash Aguilar on 05-03-2023 Erythrocyte distribution width (RBC) [Entitic vol] 45.2 fL 35.1-43.9 [facility] Erythrocyte distribution width (RBC) [Ratio] 14.1 % 11.6-14.6 [facility] Immature granulocytes/100 WBC (Bld) 0.200 % 0.0-0.9 [facility] Comment on above: IG% - Immature Granu locytes (promyelocytes, myelocytes and metamyelocytes) > 1% indicates that a LEFT SHIFT is Present. MCH (RBC) [Entitic mass] 28.9 pg 27.0-32.0 [facility] Nucleated RBC/100 WBC (Bld) [Ratio] 0 % 0-5 [facility] MCHC Auto (RBC) [Mass/Vol]Or dered By: Abhilash Aguilar on 05-03-2023 MCHC (RBC) [Mass/Vol] 32.5 g/dL 32-36 [facility] Mucus LM Ql (Urine sed)Order ed By: Abhilash Aguilar on 05-03-2023 Mucus Ql (Urine sed) 0 SEEN /hpf [facility] Nitrite Test strip Ql (U)Ord ered By: Abhilash Aguilar on 05-03-2023 Nitrite Ql (U) Negative Negative [facility] No Panel InformationOrdered By: Abhilash Aguilar on 05-03-2023 Estimated Creatinine Clearance Calc 85.96 ml/min [facility] Estimated GFR (MDRD) Amer 93 mL/min >60 [facility] Comment on above: GFR Calc Estimated GFR (MDRD) Non-Af Amer 77 mL/min >60 [facility] Comment on above: Non- GFR Calc Platelets bldOrdered By: Ann Aguilar on 05-03-2023 Platelets (Bld) [#/Vol] 305 10*3/uL 150-450 [facility] Protein Test strip Ql (U)Ord ered By: Abhilash Aguilar on 05-03-2023 Protein Ql (U) Negative Negative [facility] Serum or plasma albumin eunice urement (mass/volume)Ordered By: Abhilash Aguilar on 05-03-2023 Albumin [Mass/Vol] 3.6 g/dL 3.2-5.0 [facility] Serum or plasma albumin/glob ulin mass ratioOrdered By: Abhilash Aguilar on 05-03-2023 Albumin/Globulin [Mass ratio] 1.0 {ratio} 0.9-2.4 [facility] Serum or plasma calcium eunice urement (mass/volume)Ordered By: Abhilash Aguilar on 05-03-2023 Calcium [Mass/Vol] 9.1 mg/dL 8.5-10.1 [facility] Serum or plasma creatinine m easurement (mass/volume)Ordered By: Abhilash Aguilar on 05-03-2023 Creatinine [Mass/Vol] 0.86 mg/dL 0.55-1.02 [facility] Comment on above: The validity of the calculated GFR & GFRAA in patients over 70 years has not been determined. Clinical correlation is essential. Serum or plasma urea nitroge n measurement (mass/volume)Ordered By: Abhilash Aguilar on 05-03-2023 Urea nitrogen [Mass/Vol] 17 mg/dL 7-18 [facility] Squamous epithelial cells de tection in urine sediment by light microscopyOrdered By: Abhilash Aguilar on 05-03-2023 Epithelial cells.squamous LM Ql (Urine sed) 0-5 SEEN /hpf 5-10 [facility] Thin prep Papanicolaou smear with manual screeningOrdered By: Abhilash Aguilar on 05-03-2023 Thin prep Papanicolaou smear with manual screening 17 U/L 15-37 [facility] Thin prep Papanicolaou smear with manual screening 5 5-15 [facility] Urine blood detectionOrdered By: Abhilash Aguilar on 05-03-2023 RBC Ql (U) Negative Negative [facility] RBC Ql (U) 0 SEEN /hpf 0-5 [facility] Urine clarityOrdered By: Ann Aguilar on 05-03-2023 Clarity (U) Clear Clear [facility] Urine color determinationOrd ered By: Abhilash Aguilar on 05-03-2023 Color (U) Yellow Yellow [facility] [place] [facility]rine glucose detectionOrder ed By: Abhilash Aguilar on 05-03-2023 Glucose Ql (U) Normal mg/dl Normal [facility] Urine leukocyte esterase det ection by dipstickOrdered By: Abhilash Aguilar on 05-03-2023 Leukocyte esterase Test strip Ql (U) 500 /ul Negative [facility] Urine pHOrdered By: Abhilash damian on 05-03-2023 pH (U) 6.0 [pH] 5.0 - 8.0 [facility] Urine sediment bacteria coun t by microscopy (number/high power field)Ordered By: Abhilash Aguilar on 05-03-2023 Bacteria LM.HPF (Urine sed) [#/Area] 1 /[HPF] None Seen [facility] Urine specific gravity measu rementOrdered By: Abhilash Aguilar on 05-03-2023 Specific gravity (U) [Rel density] 1.015 1.002-1.030 [facility] Urobilinogen Auto test strip Ql (U)Ordered By: Abhilash Aguilar on 05-03-2023 Urobilinogen Ql (U) Normal mg/dl Normal [facility] ICD REMOTE CHECKon 3 Detection Configuration (Vent) 2 - Zone [facility] FastVT_Detection Interval 273 ms [facility] FastVT_Therapy Configuration 0 ATP(s) + 1 Shock(s) [facility] ICD FastVT DetectionStatus ENABLED [facility] ICD-Device Mfg BSX [facility] [id number] 0 [facility] ICD-SHOCKSDELIVEREDVENTR ICULAR 0 [facility] Implant Date 05/16/2021 [facility] Implant Date 02/24/2014 [facility] Lead1 Mfg BSX [facility] Location RV [facility] MDT_PROG_TACHY_ZONE_DETE CTIONS_STATUS ENABLED [facility] Model A219 EMBLEM MRI S-ICD [facility] Model 3010 Q-Trak SQ Electrode [facility] Serial Number [id number] [facility] Serial Number [id number] [facility] Therapy Status (Vent) Enabled [facility] Detection Interval 250 ms [facility]F Zone Therapy Configuration 0 ATP(s) + 1 Shock(s) [facility] No Panel Informationon 04-20 BLANK _ [facility] URINE CULTUREon 03-28-2023 Bacteria identified Cx Nom (U) <10,000 CFU/ml Mixed microbiota Abnormal [facility] UA DIP, URINE (POC)on 2022 BILIRUBIN UA (POCT) Small Abnormal Negative [facility] CLARITY UA (POCT) Clear [facility] COLOR UA (POCT) Yellow [facility] GLUCOSE UA (POCT) Negative Negative mg/dL [facility] HEMOGLOBIN/BLOOD UA (POCT) Negative Negative [facility] KETONE UA (POCT) 15 mg/dL Abnormal Negative mg/dL [facility] LEUKOCYTES UA (POCT) Trace Abnormal Negative [facility] NITRITE UA (POCT) Negative Negative [facility] PH UA (POCT) 5.5 4.5 - 8.0 [facility] Protein Ql (U) 30 mg/dL Abnormal Negative mg/dL [facility] SPECIFIC GRAVITY UA (POCT) >=1.030 1.005 - 1.030 [facility] UROBILINOGEN UA (POCT) 0.2 E.U./dL Fátima l E.U./dL [facility] Urinalysis complete panel (U )on 03-26-2023 Bacteria LM.HPF (Urine sed) [#/Area] Rare Abnormal None Seen /HPF [facility] Bilirubin Ql (U) Negative Negative [facility] Calcium Oxalate Crystals Few Abnormal Non e Seen /HPF [facility] Clarity (Unsp spec) Cloudy Abnormal Clear [facility] Color (U) Yellow Yellow [facility] Epithelial cells LM.HPF (Urine sed) [#/Area] Few [facility] Glucose Test strip (U) [Mass/Vol] Negative Trace, Negative [facility] Hemoglobin Ql (U) Negative Negative, Trace [facility] Ketones Ql (U) 1+ Abnormal Trace, Negative [facility] Leukocyte esterase Test strip Ql (U) 500 Yuliana/uL Abnormal Negative, 25 Yuliana/uL [facility] Nitrite Ql (U) Negative Negative [facility] pH (U) 6.0 [pH] 5.0 - 8.0 [facility] Protein (U) [Mass/Vol] 1+ Abnormal Trace , Negative [facility] RBC LM.HPF (Urine sed) [#/Area] 0-3 /HPF 0-3 /HPF [facility] Specific gravity (U) [Rel density] 1.041 High 1.005 - 1.030 [facility] Urobilinogen Ql (U) 1+ Abnormal Negative [facility] WBC LM.HPF (Urine sed) [#/Area] 11-25 /HPF Abnormal 0-5 /HPF [facility] CBC W Auto Differential pane l (Bld)on 03-20-2023 Basophils (Bld) [#/Vol] 0.05 10*3/uL <0.11 k/uL [facility] Basophils/100 WBC (Bld) 0.8 % [facility] Differential cell count method Nom (Bld) Auto [facility] Eosinophils (Bld) [#/Vol] 0.35 10*3/uL <0.46 k/uL [facility] Eosinophils/100 WBC (Bld) 5.6 % [facility] Erythrocyte distribution width (RBC) [Ratio] 14.6 % 11.5 - 15.0 % [facility] Hematocrit (Bld) [Volume fraction] 38.0 % 36.0 - 46.0 % [facility] Hemoglobin (Bld) [Mass/Vol] 13.0 g/dL 11.5 - 15.5 g/dL [facility] Immature granulocytes (Bld) [#/Vol] <0.10 k/uL [facility] Immature granulocytes/100 WBC (Bld) 0.2 % [facility] Lymphocytes (Bld) [#/Vol] 2.14 10*3/uL 1.00 - 4.00 k/uL [facility] Lymphocytes/100 WBC (Bld) 34.4 % [facility] MCH (RBC) [Entitic mass] 29.4 pg 26. 0 - 34.0 pg [facility] MCHC (RBC) [Mass/Vol] 34.2 g/dL 30.5 - 36.0 g/dL [facility] MCV (RBC) [Entitic vol] 86.0 fL 80.0 - 100.0 fL [facility] Monocytes (Bld) [#/Vol] 0.49 10*3/uL <0.87 k/uL [facility] Monocytes/100 WBC (Bld) 7.9 % [facility] Neutrophils (Bld) [#/Vol] 3.18 10*3/uL 1.45 - 7.50 k/uL [facility] Neutrophils/100 WBC (Bld) 51.1 % [facility] Nucleated RBC (Bld) [#/Vol] <0.01 k/uL [facility] Nucleated RBC/100 WBC (Bld) [Ratio] 0.0 /100 WBC [facility] Platelet mean volume (Bld) [Entitic vol] 12.6 fL 9.0 - 12.7 fL [facility] Platelets (Bld) [#/Vol] 306 10*3/uL 150 - 400 k/uL [facility] RBC (Bld) [#/Vol] 4.42 10*6/uL 3.90 - 5.2 0 m/uL [facility] WBC (Bld) [#/Vol] 6.22 10*3/uL 3.70 - 11. 00 k/uL [facility] Comprehensive metabolic 2000 panelon 03-20-2023 Albumin [Mass/Vol] 4.0 g/dL 3.9 - 4.9 g/dL [facility] ALP [Catalytic activity/Vol] 73 U/L 34 - 123 U/L [facility] ALT [Catalytic activity/Vol] 17 U/L 7 - 38 U/L [facility] Anion gap [Moles/Vol] 10 mmol/L 9 - 18 mmol/L [facility] AST [Catalytic activity/Vol] 18 U/L 13 - 35 U/L [facility] Bilirubin [Mass/Vol] 0.4 mg/dL 0.2 - 1 .3 mg/dL [facility] Calcium [Mass/Vol] 9.1 mg/dL 8.5 - 10. 2 mg/dL [facility] Chloride [Moles/Vol] 105 mmol/L 97 - 10 5 mmol/L [facility] CO2 [Moles/Vol] 24 mmol/L 22 - 30 mmol/L [facility] Creatinine [Mass/Vol] 0.80 mg/dL 0.58 - 0.96 mg/dL [facility] Estimated Glomerular Filtration Rate 94 mL/min/1.73m >=60 mL/min/1.73m [facility] Glucose [Mass/Vol] 103 mg/dL High 74 - 99 mg/dL [facility] Potassium [Moles/Vol] 3.7 mmol/L 3.7 - 5.1 mmol/L [facility] Protein [Mass/Vol] 6.2 g/dL Low 6.3 - 8.0 g/dL [facility] Sodium [Moles/Vol] 139 mmol/L 136 - 144 mmol/L [facility] Urea nitrogen [Mass/Vol] 13 mg/dL 7 - 21 mg/d L [facility] UA DIP, URINE (POC)on 2022 BILIRUBIN UA (POCT) Moderate Abnormal Negative [facility] CLARITY UA (POCT) Clear [facility] COLOR UA (POCT) Other [facility] GLUCOSE UA (POCT) Negative Negative mg/dL [facility] HEMOGLOBIN/BLOOD UA (POCT) Moderate Abnormal Negative [facility] KETONE UA (POCT) >=160 Abnormal Negative mg/dL [facility] LEUKOCYTES UA (POCT) Trace Abnormal Negative [facility] NITRITE UA (POCT) Negative Negative [facility] PH UA (POCT) 5.5 4.5 - 8.0 [facility] Protein Ql (U) Negative Negative mg/dL [facility] SPECIFIC GRAVITY UA (POCT) 1.025 1.005 - 1.030 [facility] UROBILINOGEN UA (POCT) 0.2 E.U./dL Fátima l E.U./dL [facility] INR (POC)on 03-16-2023 INR Coag (PPP) [Relative time] 1.8 {INR} High 0.8 - 1.2 [facility] Internal Quality Check Acceptable Cl [facility] Absolute lymphocyte countOrd ered By: Dr. Vaughn on 03-07-2023 Lymphocytes Auto (Unsp spec) [#/Vol] 2.17 10*3/uL 0.83-4.51 [facility] Basophil percentageOrdered B y: Dr. Vaughn on 03-07-2023 Basophils/100 WBC (Bld) 1.2 % 0-1 [facility] Chloride [Moles/Vol] 111 mmol/L 98-107 [facility] Eosinophils/100 WBC (Bld) 4.1 % 0-5 [facility] Glucose [Mass/Vol] 100 mg/dL 74-106 [facility] Comment on above: Fasting Glucose resu lt from 100 to 125 mg/dL suggests IMPAIRED HOMEOSTASIS per A.D.A. criteria. Neutrophils (Bld) [#/Vol] 3.5 10*3/uL 2.0-7.7 [facility] Neutrophils/100 WBC (Bld) 53.2 % 47-70 [facility] Potassium [Moles/Vol] 3.4 mmol/L 3.5-5.1 [facility] Sodium [Moles/Vol] 141 mmol/L 136-145 [facility] WBC (Bld) [#/Vol] 6.7 10*3/uL 4.4-11.0 [facility] Blood erythrocytes count (nu mber/volume)Ordered By: Dr. Vaughn on 03-07-2023 RBC (Bld) [#/Vol] 4.21 10*6/uL 4.2-5.4 [facility] Blood hemoglobin measurement (mass/volume)Ordered By: Dr. Vaughn on 03-07-2023 Hemoglobin (Bld) [Mass/Vol] 12.3 g/dL 12.0-15.0 [facility] Blood lymphocytes/100 leukoc ytesOrdered By: Dr. Vaughn on 03-07-2023 Lymphocytes/100 WBC (Bld) 32.6 % 19-41 [facility] Blood monocytes/100 leukocyt esOrdered By: Dr. Vaughn on 03-07-2023 Monocytes/100 WBC (Bld) 8.6 % 0-[address] [facility] Blood platelet mean volumeOr dered By: Dr. Vaughn on 03-07-2023 Platelet mean volume (Bld) [Entitic vol] 12.2 fL 6.2-12.0 [facility] Determination of erythrocyte mean corpuscular volume (MCV)Ordered By: Dr. Vaughn on 03-07-2023 MCV (RBC) [Entitic vol] 86.9 fL 81-[address] [facility] Hematocrit Auto (Bld) [Volum e fraction]Ordered By: Dr. Vaughn on 03-07-2023 Hematocrit (Bld) [Volume fraction] 36.6 % 37-47 [facility] - Chemistry and C hemistry - challengeOrdered By: Dr. Vaughn on 03-07-2023 CO2 [Moles/Vol] 23.0 mmol/L 21.0-32.0 [facility] Urea nitrogen/Creatinine [Mass ratio] 22.2 mg/mg 10-20 [facility] - Hematology and Cell countsOrdered By: Dr. Vaughn on 03-07-2023 Erythrocyte distribution width (RBC) [Entitic vol] 44.8 fL 35.1-43.9 [facility] Erythrocyte distribution width (RBC) [Ratio] 14.3 % 11.6-14.6 [facility] Immature granulocytes/100 WBC (Bld) 0.300 % 0.0-0.9 [facility] Comment on above: IG% - Immature Granu locytes (promyelocytes, myelocytes and metamyelocytes) > 1% indicates that a LEFT SHIFT is Present. MCH (RBC) [Entitic mass] 29.2 pg 27.0-32.0 [facility] Nucleated RBC/100 WBC (Bld) [Ratio] 0 % 0-5 [facility] MCHC Auto (RBC) [Mass/Vol]Or dered By: Dr. Vaughn on 03-07-2023 MCHC (RBC) [Mass/Vol] 33.6 g/dL 32-36 [facility] No Panel InformationOrdered By: Dr. Vaughn on 03-07-2023 Estimated Creatinine Clearance Calc 78.65 ml/min [facility] Estimated GFR (MDRD) Amer 83 mL/min >60 [facility] Comment on above: GFR Calc Estimated GFR (MDRD) Non-Af Amer 69 mL/min >60 [facility] Comment on above: Non- GFR Calc Troponin I High Sensitivity 12 pg/mL 3.0-54.0 [facility] Comment on above: Please Note: New Toña t Units and Gender Specific Reference Ranges. For more information see Policy Stat Procedure [place] High Sensitivity Troponin (TNIH) and attachments. Platelets bldOrdered By: Dr. Vaughn on 03-07-2023 Platelets (Bld) [#/Vol] 314 10*3/uL 150-450 [facility] Serum or plasma calcium eunice urement (mass/volume)Ordered By: Dr. Vaughn on 03-07-2023 Calcium [Mass/Vol] 9.2 mg/dL 8.5-10.1 [facility] Serum or plasma creatinine m easurement (mass/volume)Ordered By: Dr. Vaughn on 03-07-2023 Creatinine [Mass/Vol] 0.94 mg/dL 0.55-1.02 [facility] Comment on above: The validity of the calculated GFR & GFRAA in patients over 70 years has not been determined. Clinical correlation is essential. Serum or plasma urea nitroge n measurement (mass/volume)Ordered By: Dr. Vaughn on 03-07-2023 Urea nitrogen [Mass/Vol] 21 mg/dL -18 [facility] Thin prep Papanicolaou smear with manual screeningOrdered By: Dr. Vaughn on 03-07-2023 Thin prep Papanicolaou smear with manual screening 7 -15 [facility] ICD CLINIC CHECKon 3 Detection Configuration (Vent) 2 - Zone [facility] FastVT_Detection Interval 272 ms [facility] FastVT_Therapy Configuration 0 ATP(s) + 1 Shock(s) [facility] ICD FastVT DetectionStatus ENABLED [facility] ICD-Device Mfg BSX [facility] ICD-Rhythm VS regular rhythm [facility] [id number] 0 [facility] ICD-SHOCKSDELIVEREDVENTR ICULAR 0 [facility] Implant Date 05/16/2021 [facility] Implant Date 02/24/2014 [facility] Lead1 Mfg BSX [facility] Location RV [facility] MDT_PROG_TACHY_ZONE_DETE CTIONS_STATUS ENABLED [facility] Model A219 EMBLEM MRI S-ICD [facility] Model 3010 Q-Trak SQ Electrode [facility] Pacemaker Dependent? NO [facility] Serial Number [id number] [facility] Serial Number [id number] [facility] Therapy Status (Vent) Enabled [facility] Zone Detection Interval 250 ms [facility] VF Zone Therapy Configuration 0 ATP(s) + 1 Shock(s) [facility] No Panel Informationon 02-18 BLANK _ [facility] No Panel Informationon 12-11 [facility] ICD REMOTE CHECKon 3 Detection Configuration (Vent) 2 - Zone [facility] FastVT_Detection Interval 273 ms [facility] FastVT_Therapy Configuration 0 ATP(s) + 1 Shock(s) [facility] ICD FastVT DetectionStatus ENABLED [facility] ICD-Device Mfg BSX [facility] [id number] 0 [facility] ICD-SHOCKSDELIVEREDVENTR ICULAR 0 [facility] Implant Date 05/16/2021 [facility] Implant Date 02/24/2014 [facility] Lead1 Mfg BSX [facility] Location RV [facility] MDT_PROG_TACHY_ZONE_DETE CTIONS_STATUS ENABLED [facility] Model A219 EMBLEM MRI S-ICD [facility] Model 3010 Q-Trak SQ Electrode [facility] Serial Number [id number] [facility] Serial Number [id number] [facility] Therapy Status (Vent) Enabled [facility] Zone Detection Interval 250 ms [facility] VF Zone Therapy Configuration 0 ATP(s) + 1 Shock(s) [facility] No Panel Informationon 10-28 BLANK _ [facility] Absolute lymphocyte countOrd ered By: Dr. Brower on 10-26-2022 Lymphocytes Auto (Unsp spec) [#/Vol] 2.21 10*3/uL 0.83-4.51 [facility] Basophil percentageOrdered B y: Dr. Brower on 10-26-2022 Basophils/100 WBC (Bld) 0.6 % 0-[address] [facility] Chloride [Moles/Vol] 108 mmol/L 98-107 [facility] Eosinophils/100 WBC (Bld) 2.5 % 0-5 [facility] Glucose [Mass/Vol] 162 mg/dL 74-106 [facility] Comment on above: Fasting Glucose resu lt greater than or equal to 126 mg/dL suggests DIABETES MELLITUS per A.D.A. criteria. Neutrophils (Bld) [#/Vol] 7.0 10*3/uL 2.0-7.7 [facility] Neutrophils/100 WBC (Bld) 68.3 % 47-70 [facility] Potassium [Moles/Vol] 4.1 mmol/L 3.5-5.1 [facility] Sodium [Moles/Vol] 139 mmol/L 136-145 [facility] WBC (Bld) [#/Vol] 10.2 10*3/uL 4.4-11.0 [facility] Blood erythrocytes count (nu mber/volume)Ordered By: Dr. Brower on 10-26-2022 RBC (Bld) [#/Vol] 5.10 10*6/uL 4.2-5.4 [facility] Blood hemoglobin measurement (mass/volume)Ordered By: Dr. Brower on 10-26-2022 Hemoglobin (Bld) [Mass/Vol] 14.9 g/dL 12.0-15.0 [facility] Blood lymphocytes/100 leukoc ytesOrdered By: Dr. Brower on 10-26-2022 Lymphocytes/100 WBC (Bld) 21.7 % 19-41 [facility] Blood monocytes/100 leukocyt esOrdered By: Dr. Brower on 10-26-2022 Monocytes/100 WBC (Bld) 6.7 % 0-10 [facility] Blood platelet mean volumeOr dered By: Dr. Brower on 10-26-2022 Platelet mean volume (Bld) [Entitic vol] 11.1 fL 6.2-12.0 [facility] Determination of erythrocyte mean corpuscular volume (MCV)Ordered By: Dr. Brower on 10-26-2022 MCV (RBC) [Entitic vol] 87.3 fL 81-[address] [facility] Hematocrit Auto (Bld) [Volum e fraction]Ordered By: Dr. Brower on 10-26-2022 Hematocrit (Bld) [Volume fraction] 44.5 % 37-47 [facility] - Chemistry and C hemistry - challengeOrdered By: Dr. Brower on 10-26-2022 CO2 [Moles/Vol] 24.0 mmol/L 21.0-32.0 [facility] Magnesium [Mass/Vol] 2.1 mg/dL 1.6-2.6 [facility] Urea nitrogen/Creatinine [Mass ratio] 22.8 mg/mg 10-20 [facility] - Hematology and Cell countsOrdered By: Dr. Brower on 10-26-2022 Erythrocyte distribution width (RBC) [Entitic vol] 43.0 fL 35.1-43.9 [facility] Erythrocyte distribution width (RBC) [Ratio] 13.4 % 11.6-14.6 [facility] Immature granulocytes/100 WBC (Bld) 0.200 % 0.0-0.9 [facility] Comment on above: IG% - Immature Granu locytes (promyelocytes, myelocytes and metamyelocytes) > 1% indicates that a LEFT SHIFT is Present. MCH (RBC) [Entitic mass] 29.2 pg 27.0-32.0 [facility] Nucleated RBC/100 WBC (Bld) [Ratio] 0 % 0-5 [facility] MCHC Auto (RBC) [Mass/Vol]Or dered By: Dr. Brower on 10-26-2022 MCHC (RBC) [Mass/Vol] 33.5 g/dL 32-36 [facility] No Panel InformationOrdered By: Dr. Brower on 10-26-2022 Estimated Creatinine Clearance Calc 88.01 ml/min [facility] Estimated GFR (MDRD) Amer 96 mL/min >60 [facility] Comment on above: GFR Calc Estimated GFR (MDRD) Non-Af Amer 80 mL/min >60 [facility] Comment on above: Non- GFR Calc Platelets bldOrdered By: Dr. Brower on 10-26-2022 Platelets (Bld) [#/Vol] 346 10*3/uL 150-450 [facility] Serum or plasma calcium eunice urement (mass/volume)Ordered By: Dr. Brower on 10-26-2022 Calcium [Mass/Vol] 8.6 mg/dL 8.5-10.1 [facility] Serum or plasma creatinine m easurement (mass/volume)Ordered By: Dr. Brower on 10-26-2022 Creatinine [Mass/Vol] 0.84 mg/dL 0.55-1.02 [facility] Comment on above: The validity of the calculated GFR & GFRAA in patients over 70 years has not been determined. Clinical correlation is essential. Serum or plasma urea nitroge n measurement (mass/volume)Ordered By: Dr. Brower on 10-26-2022 Urea nitrogen [Mass/Vol] 19 mg/dL 04-21 [facility] Thin prep Papanicolaou smear with manual screeningOrdered By: Dr. Brower on 10-26-2022 Thin prep Papanicolaou smear with manual screening 7 02-16 [facility] ICD REMOTE CHECKon 3 Detection Configuration (Vent) 2 - Zone [facility] FastVT_Detection Interval 273 ms [facility] FastVT_Therapy Configuration 0 ATP(s) + 1 Shock(s) [facility] ICD FastVT DetectionStatus ENABLED [facility] ICD-Device Mfg BSX [facility] [id number] 0 [facility] ICD-SHOCKSDELIVEREDVENTR ICULAR 0 [facility] Implant Date 05/16/2021 [facility] Implant Date 02/24/2014 [facility] Lead1 Mfg BSX [facility] Location RV [facility] MDT_PROG_TACHY_ZONE_DETE CTIONS_STATUS ENABLED [facility] Model A219 EMBLEM MRI S-ICD [facility] Model 3010 Q-Trak SQ Electrode [facility] Serial Number [id number] [facility] Serial Number [id number] [facility] Therapy Status (Vent) Enabled [facility] Zone Detection Interval 250 ms [facility] VF Zone Therapy Configuration 0 ATP(s) + 1 Shock(s) [facility] No Panel Informationon 10-22 BLANK _ [facility] XR Chest PA and Lateralon IMPRESSION: No persistent or developing acute abnormality Social Services: CLAUDIA Transcribe Date/Time: Oct 02 2022 8:43A Dictated by : YANELI DOTSON MD This examination was interpreted and the report reviewed and electronically signed by: YANELI DOTSON MD on Oct 02 2022 8:43AM [facility] DIVISION OF RADIOLOGY * * *Final [...] soft tissues: Unremarkable. DIVISION OF RADIOLOGY Provider, [facility] [place] - 10/02/2022 * * *Final Report* * [...] IMPRESSION: No persistent or developing acute abnormality Social Services: [facility] Transcribe Date/Time: Oct 02 2022 8:43A Dictated by : YANELI DOTSON MD This examination was interpreted and the report reviewed and electronically signed by: YANELI DOTSON MD on Oct 02 2022 8:43AM EST [facility] Radiology Study observation (narrative) [facility] XR Chest PA and LateralOrder ed By: [facility] Provider on 10-02-2022 [facility] URINE CULTUREon 09-30-2022 Bacteria identified Cx Nom (U) <10,000 CFU/ml Mixed microbiota Abnormal [facility] UA DIP, URINE (POC)on 2021 BILIRUBIN UA (POCT) Negative Negative [facility] CLARITY UA (POCT) Clear [facility] COLOR UA (POCT) Yellow [facility] GLUCOSE UA (POCT) Negative Negative mg/dL [facility] HEMOGLOBIN/BLOOD UA (POCT) Negative Negative [facility] KETONE UA (POCT) Trace Negative mg/dL [facility] LEUKOCYTES UA (POCT) Small Abnormal Negative [facility] NITRITE UA (POCT) Negative Negative [facility] PH UA (POCT) 5.0 4.5 - 8.0 [facility] Protein Ql (U) Negative Negative mg/dL [facility] SPECIFIC GRAVITY UA (POCT) 1.025 1.005 - 1.030 [facility] UROBILINOGEN UA (POCT) 0.2 E.U./dL Fátima l E.U./dL [facility] US ABD RT UPPER QUADRANTon 1 11-25-2021 [facility] Absolute lymphocyte countOrd ered By: Dr. Ferguson on 09-12-2022 Lymphocytes Auto (Unsp spec) [#/Vol] 2.93 10*3/uL 0.83-4.51 [facility] Basophil percentageOrdered B y: Dr. Ferguson on 09-12-2022 Basophils/100 WBC (Bld) 0.5 % 0-[address] [facility] Chloride [Moles/Vol] 105 mmol/L 98-107 [facility] Eosinophils/100 WBC (Bld) 1.4 % 0-5 [facility] Glucose [Mass/Vol] 100 mg/dL 74-106 [facility] Comment on above: Fasting Glucose resu lt from 100 to 125 mg/dL suggests IMPAIRED HOMEOSTASIS per A.D.A. criteria. Neutrophils (Bld) [#/Vol] 8.0 10*3/uL 2.0-7.7 [facility] Neutrophils/100 WBC (Bld) 67.1 % 47-70 [facility] Potassium [Moles/Vol] 3.6 mmol/L 3.5-5.1 [facility] Sodium [Moles/Vol] 138 mmol/L 136-145 [facility] WBC (Bld) [#/Vol] 11.9 10*3/uL 4.4-11.0 [facility] Blood erythrocytes count (nu mber/volume)Ordered By: Dr. Ferguson on 09-12-2022 RBC (Bld) [#/Vol] 5.00 10*6/uL 4.2-5.4 [facility] Blood hemoglobin measurement (mass/volume)Ordered By: Dr. Ferguson on 09-12-2022 Hemoglobin (Bld) [Mass/Vol] 14.5 g/dL 12.0-15.0 [facility] Blood lymphocytes/100 leukoc ytesOrdered By: Dr. Ferguson on 09-12-2022 Lymphocytes/100 WBC (Bld) 24.7 % 19-41 [facility] Blood monocytes/100 leukocyt esOrdered By: Dr. Ferguson on 09-12-2022 Monocytes/100 WBC (Bld) 6.0 % 0-10 [facility] Blood platelet mean volumeOr dered By: Dr. Ferguson on 09-12-2022 Platelet mean volume (Bld) [Entitic vol] 11.0 fL 6.2-12.0 [facility] Determination of erythrocyte mean corpuscular volume (MCV)Ordered By: Dr. Ferguson on 09-12-2022 MCV (RBC) [Entitic vol] 87.0 fL 81-99 [facility] Hematocrit Auto (Bld) [Volum e fraction]Ordered By: Dr. Ferguson on 09-12-2022 Hematocrit (Bld) [Volume fraction] 43.5 % 37-47 [facility] Laboratory - Chemistry and C hemistry - challengeOrdered By: Dr. Ferguson on 09-12-2022 CO2 [Moles/Vol] 26.0 mmol/L 21.0-32.0 [facility] Magnesium [Mass/Vol] 1.9 mg/dL 1.6-2.6 [facility] Urea nitrogen/Creatinine [Mass ratio] 34.8 mg/mg 10-20 [facility] Laboratory - Hematology and Cell countsOrdered By: Dr. Ferguson on 09-12-2022 Erythrocyte distribution width (RBC) [Entitic vol] 41.3 fL 35.1-43.9 [facility] Erythrocyte distribution width (RBC) [Ratio] 13.2 % 11.6-14.6 [facility] Immature granulocytes/100 WBC (Bld) 0.300 % 0.0-0.9 [facility] Comment on above: IG% - Immature Granu locytes (promyelocytes, myelocytes and metamyelocytes) > 1% indicates that a LEFT SHIFT is Present. MCH (RBC) [Entitic mass] 29.0 pg 27.0-32.0 [facility] Nucleated RBC/100 WBC (Bld) [Ratio] 0 % 0-5 [facility] MCHC Auto (RBC) [Mass/Vol]Or dered By: Dr. Ferguson on 09-12-2022 MCHC (RBC) [Mass/Vol] 33.3 g/dL 32-36 [facility] No Panel InformationOrdered By: Dr. Ferguson on 09-12-2022 Estimated Creatinine Clearance Calc 92.41 ml/min [facility] Estimated GFR (MDRD) Amer 101 mL/min >60 [facility] Comment on above: GFR Calc Estimated GFR (MDRD) Non-Af Amer 83 mL/min >60 [facility] Comment on above: Non- GFR Calc Platelets bldOrdered By: Dr. Ferguson on 09-12-2022 Platelets (Bld) [#/Vol] 343 10*3/uL 150-450 [facility] Serum or plasma calcium eunice urement (mass/volume)Ordered By: Dr. Ferguson on 09-12-2022 Calcium [Mass/Vol] 9.4 mg/dL 8.5-10.1 [facility] Serum or plasma creatinine m easurement (mass/volume)Ordered By: Dr. Ferguson on 09-12-2022 Creatinine [Mass/Vol] 0.80 mg/dL 0.55-1.02 [facility] Comment on above: The validity of the calculated GFR & GFRAA in patients over 70 years has not been determined. Clinical correlation is essential. Serum or plasma urea nitroge n measurement (mass/volume)Ordered By: Dr. Ferguson on 09-12-2022 Urea nitrogen [Mass/Vol] 28 mg/dL 7-18 [facility] Thin prep Papanicolaou smear with manual screeningOrdered By: Dr. Ferguson on 09-12-2022 Thin prep Papanicolaou smear with manual screening 7 5-15 [facility] WERO SCREENINGon 09-04-2022 [facility] Absolute lymphocyte counton 06-26-2022 Lymphocytes Auto (Unsp spec) [#/Vol] 3.79 10*3/uL 0.83-4.51 [facility] Work Phone: Basophil percentageon 2021 Basophils/100 WBC (Bld) 0.5 % 0-1 [facility] Work Phone: Chloride [Moles/Vol] 106 mmol/L 98-107 [facility] Work Phone: Eosinophils/100 WBC (Bld) 0.9 % 0-5 [facility] Work Phone: Glucose [Mass/Vol] 170 mg/dL 74-106 [facility] Work Phone: Comment on above: Fasting Glucose resu lt greater than or equal to 126 mg/dL suggests DIABETES MELLITUS per A.D.A. criteria. Neutrophils (Bld) [#/Vol] 10.9 10*3/uL 2.0-7.7 [facility] Work Phone: Neutrophils/100 WBC (Bld) 67.0 % 47-70 [facility] Work Phone: Potassium [Moles/Vol] 4.0 mmol/L 3.5-5.1 [facility] Work Phone: [phone] Sodium [Moles/Vol] 142 mmol/L 136-145 [facility] Work Phone: WBC (Bld) [#/Vol] 16.2 10*3/uL 4.4-11.0 [facility] Work Phone: [phone] Blood erythrocytes count (nu mber/volume)on 06-26-2022 RBC (Bld) [#/Vol] 4.88 10*6/uL 4.2-5.4 [facility] Work Phone: [phone] Blood hemoglobin measurement (mass/volume)on 06-26-2022 Hemoglobin (Bld) [Mass/Vol] 14.2 g/dL 12.0-15.0 [facility] Work Phone: [phone] Blood lymphocytes/100 leukoc yteson 06-26-2022 Lymphocytes/100 WBC (Bld) 23.4 % 19-41 [facility] Work Phone: [phone] Blood monocytes/100 leukocyt eson 06-26-2022 Monocytes/100 WBC (Bld) 7.9 % 0-[address] [facility] Work Phone: Blood platelet mean volumeon 06-26-2022 Platelet mean volume (Bld) [Entitic vol] 11.0 fL 6.2-12.0 [facility] Work Phone: [phone] Determination of erythrocyte mean corpuscular volume (MCV)on 06-26-2022 MCV (RBC) [Entitic vol] 87.1 fL 81-[address] [facility] Work Phone: Hematocrit Auto (Bld) [Volum e fraction]on 06-26-2022 Hematocrit (Bld) [Volume fraction] 42.5 % 37-47 [facility] Work Phone: [phone] Laboratory - Chemistry and C hemistry - challengeon 06-26-2022 CO2 [Moles/Vol] 24.0 mmol/L 21.0-32.0 [facility] Work Phone: [phone] Urea nitrogen/Creatinine [Mass ratio] 17.5 mg/mg 10-20 [facility] Work Phone: [phone] Laboratory - Hematology and Cell countson 06-26-2022 Erythrocyte distribution width (RBC) [Entitic vol] 41.8 fL 35.1-43.9 [facility] Work Phone: [phone] Erythrocyte distribution width (RBC) [Ratio] 13.2 % 11.6-14.6 [facility] Work Phone: [phone] Immature granulocytes/100 WBC (Bld) 0.300 % 0.0-0.9 [facility] Work Phone: [phone] Comment on above: IG% - Immature Granu locytes (promyelocytes, myelocytes and metamyelocytes) > 1% indicates that a LEFT SHIFT is Present. MCH (RBC) [Entitic mass] 29.1 pg 27.0-32.0 [facility] Work Phone: [phone] Nucleated RBC/100 WBC (Bld) [Ratio] 0 % 0-5 [facility] Work Phone: [phone] MCHC Auto (RBC) [Mass/Vol]on 06-26-2022 MCHC (RBC) [Mass/Vol] 33.4 g/dL 32-36 [facility] Work Phone: [phone] No Panel Informationon 06-26 Troponin I High Sensitivity 14 pg/mL 3.0-54.0 [facility] Work Phone: [phone] Comment on above: Please Note: New Toña t Units and Gender Specific Reference Ranges. For more information see Policy Stat Procedure [place] High Sensitivity Troponin (TNIH) and attachments. Estimated Creatinine Clearance Calc 72.51 ml/min [facility] Work Phone: [phone] Estimated GFR (MDRD) Amer 76 mL/min >60 [facility] Work Phone: [phone] Comment on above: GFR Calc Estimated GFR (MDRD) Non-Af Amer 63 mL/min >60 [facility] Work Phone: [phone] Comment on above: Non- GFR Calc Troponin I High Sensitivity 14 pg/mL 3.0-54.0 [facility] Work Phone: Comment on above: Please Note: New Toña t Units and Gender Specific Reference Ranges. For more information see Policy Stat Procedure [place] High Sensitivity Troponin (TNIH) and attachments. Platelets bldon 06-26-2022 Platelets (Bld) [#/Vol] 406 10*3/uL 150-450 [facility] Work Phone: Serum or plasma calcium eunice urement (mass/volume)on 06-26-2022 Calcium [Mass/Vol] 9.2 mg/dL 8.5-10.1 [facility] Work Phone: Serum or plasma creatinine m easurement (mass/volume)on 06-26-2022 Creatinine [Mass/Vol] 1.03 mg/dL 0.55-1.02 [facility] Work Phone: Comment on above: The validity of the calculated GFR & GFRAA in patients over 70 years has not been determined. Clinical correlation is essential. Serum or plasma urea nitroge n measurement (mass/volume)on 06-26-2022 Urea nitrogen [Mass/Vol] 18 mg/dL 7-18 [facility] Work Phone: Thin prep Papanicolaou smear with manual screeningon 06-26-2022 Thin prep Papanicolaou smear with manual screening 12 5-15 [facility] Work Phone: CNPCarmen 06-12-2022 [employer] [facility] CHAVO CAVANAUGH ([id number]) 1980 F Date Time Provider Department 06/12/22 JAJA ABDULLAHI During your visit today, we recorded the following information about you: Allergies As of Date: 06/12/2022 Noted Allergy Reaction METFORMIN 01/23/2022 6 - Diarrhea Date Reviewed: 06/11/2022 Reviewed by: Tony Tavares APRN.WATER RESOURCE PROJECT MANAGER - Fully Assessed Reason for Visit: Appointment [...] (HCC) [I48.91] Ventricular tachyarrhythmia (HCC) [I47.2] 02/02/2014 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, 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] 04/12/2018 ICD (implantable cardioverter-defibri llator) in*09/22/2018 Pre-op testing [Z01.818] 11/18/2019 Discharge planning issues [Z02.9] 11/18/2019 Postoperative pain [G89.18] 11/21/2019 11/22/2019 Atelectasis [J98.11] 11/21/2019 11/22/2019 Stress hyperglycemia [R73.9] 11/22/2019 11/22/2019 Obesity, Class II, BMI 35-39.9 [E66.9] 11/22/2019 11/22/2019 Clinical summary [[id number]] 11/22/2019 Acute on chronic diastolic (congestive) heart f*11/23/2019 Summary [Z48.812] 12/06/2019 Dilated cardiomyopathy (HCC) [I42.0] Left bundle branch block [I44.7] Paroxysmal atrial fibrillation (HCC) [I48.0] 08/27/2020 Class 3 severe obesity due to excess calories w*08/27/2020 Patient under care of multiple providers [Z78.9]02/05/2022 Encounter Status:Closed by JAJA ABDULLAHI on 06/12/22 [facility] ICD REMOTE CHECKon 2 Detection Configuration (Vent) 2 - Zone [facility] FastVT_Detection Interval 273 ms [facility] FastVT_Therapy Configuration 0 ATP(s) + 1 Shock(s) [facility] ICD FastVT DetectionStatus ENABLED [facility] ICD-Device Mfg BSX [facility] [id number] 0 [facility] [place] ICD-SHOCKSDELIVEREDVENTR ICULAR 0 [facility] Implant Date 05/16/2021 [facility] Implant Date 02/24/2014 [facility] Lead1 Mfg BSX [facility] Location RV [facility] MDT_PROG_TACHY_ZONE_DETE CTIONS_STATUS ENABLED [facility] Model A219 EMBLEM MRI S-ICD [facility] Model 3010 Q-Trak SQ Electrode [facility] Serial Number [id number] [facility] Serial Number [id number] [facility] Therapy Status (Vent) Enabled [facility] VF Zone Detection Interval 250 ms [facility] VF Zone Therapy Configuration 0 ATP(s) + 1 Shock(s) [facility] No Panel Informationon 05-20 BLANK _ [facility] ICD REMOTE CHECKon 2 Detection Configuration (Vent) 2 - Zone [facility] FastVT_Detection Interval 273 ms [facility] FastVT_Therapy Configuration 0 ATP(s) + 1 Shock(s) [facility] ICD FastVT DetectionStatus ENABLED [facility] ICD-Device Mfg BSX [facility] [id number] 0 [facility] [place] ICD-SHOCKSDELIVEREDVENTR ICULAR 0 [facility] Implant Date 05/16/2021 [facility] Implant Date 02/24/2014 [facility] Lead1 Mfg BSX [facility] Location RV [facility] MDT_PROG_TACHY_ZONE_DETE CTIONS_STATUS ENABLED [facility] Model A219 EMBLEM MRI S-ICD [facility] Model 3010 Q-Trak SQ Electrode [facility] Serial Number [id number] [facility] Serial Number [id number] [facility] Therapy Status (Vent) Enabled [facility] VF Zone Detection Interval 250 ms [facility] VF Zone Therapy Configuration 0 ATP(s) + 1 Shock(s) [facility] No Panel Informationon 04-22 BLANK _ [facility] Absolute lymphocyte counton 03-22-2022 Lymphocytes Auto (Unsp spec) [#/Vol] 2.69 10*3/uL 0.83-4.51 [facility] Work Phone: Basophil percentageon 2021 Basophils/100 WBC (Bld) 0.6 % 0-[address] [facility] Work Phone: Chloride [Moles/Vol] 108 mmol/L 98-107 [facility] Work Phone: Eosinophils/100 WBC (Bld) 2.0 % 0-5 [facility] Work Phone: Glucose [Mass/Vol] 112 mg/dL 74-106 [facility] Work Phone: Comment on above: Fasting Glucose resu lt from 100 to 125 mg/dL suggests IMPAIRED HOMEOSTASIS per A.D.A. criteria. Neutrophils (Bld) [#/Vol] 8.3 10*3/uL 2.0-7.7 [facility] Work Phone: Neutrophils/100 WBC (Bld) 68.1 % 47-70 [facility] Work Phone: Potassium [Moles/Vol] 3.8 mmol/L 3.5-5.1 [facility] Work Phone: Sodium [Moles/Vol] 140 mmol/L 136-145 [facility] Work Phone: WBC (Bld) [#/Vol] 12.2 10*3/uL 4.4-11.0 [facility] Work Phone: Blood erythrocytes count (nu mber/volume)on 03-22-2022 RBC (Bld) [#/Vol] 4.80 10*6/uL 4.2-5.4 [facility] Work Phone: Blood hemoglobin measurement (mass/volume)on 03-22-2022 Hemoglobin (Bld) [Mass/Vol] 13.9 g/dL 12.0-15.0 [facility] Work Phone: [phone] Blood lymphocytes/100 leukoc yteson 03-22-2022 Lymphocytes/100 WBC (Bld) 22.0 % 19-41 [facility] Work Phone: [phone] Blood monocytes/100 leukocyt eson 03-22-2022 Monocytes/100 WBC (Bld) 7.0 % 0-[address] [facility] Work Phone: Blood platelet mean volumeon 03-22-2022 Platelet mean volume (Bld) [Entitic vol] 11.6 fL 6.2-12.0 [facility] Work Phone: Determination of erythrocyte mean corpuscular volume (MCV)on 03-22-2022 MCV (RBC) [Entitic vol] 87.3 fL 81-[address] [facility] Work Phone: [phone] Hematocrit Auto (Bld) [Volum e fraction]on 03-22-2022 Hematocrit (Bld) [Volume fraction] 41.9 % 37-47 [facility] Work Phone: Laboratory - Chemistry and C hemistry - challengeon 03-22-2022 CO2 [Moles/Vol] 24.0 mmol/L 21.0-32.0 [facility] Work Phone: [phone] Urea nitrogen/Creatinine [Mass ratio] 21.2 mg/mg 10-20 [facility] Work Phone: [phone] Laboratory - Hematology and Cell countson 03-22-2022 Erythrocyte distribution width (RBC) [Entitic vol] 42.3 fL 35.1-43.9 [facility] Work Phone: [phone] Erythrocyte distribution width (RBC) [Ratio] 13.2 % 11.6-14.6 [facility] Work Phone: [phone] Immature granulocytes/100 WBC (Bld) 0.300 % 0.0-0.9 [facility] Work Phone: [phone] Comment on above: IG% - Immature Granu locytes (promyelocytes, myelocytes and metamyelocytes) > 1% indicates that a LEFT SHIFT is Present. MCH (RBC) [Entitic mass] 29.0 pg 27.0-32.0 [facility] Work Phone: [phone] Nucleated RBC/100 WBC (Bld) [Ratio] 0 % 0-5 [facility] Work Phone: [phone] MCHC Auto (RBC) [Mass/Vol]on 03-22-2022 MCHC (RBC) [Mass/Vol] 33.2 g/dL 32-36 [facility] Work Phone: [phone] No Panel Informationon 03-22 Estimated Creatinine Clearance Calc 82.98 ml/min [facility] Work Phone: [phone] Estimated GFR (MDRD) Amer 89 mL/min >60 [facility] Work Phone: [phone] Comment on above: GFR Calc Estimated GFR (MDRD) Non-Af Amer 73 mL/min >60 [facility] Work Phone: [phone] Comment on above: Non- GFR Calc Troponin I High Sensitivity 7 pg/mL 3.0-54.0 [facility] Work Phone: [phone] Comment on above: Please Note: New Toña t Units and Gender Specific Reference Ranges. For more information see Policy Stat Procedure [place] High Sensitivity Troponin (TNIH) and attachments. Platelets bldon 03-22-2022 Platelets (Bld) [#/Vol] 352 10*3/uL 150-450 [facility] Work Phone: [phone] Serum or plasma calcium eunice urement (mass/volume)on 03-22-2022 Calcium [Mass/Vol] 9.0 mg/dL 8.5-10.1 [facility] Work Phone: Serum or plasma creatinine m easurement (mass/volume)on 03-22-2022 Creatinine [Mass/Vol] 0.90 mg/dL 0.55-1.02 [facility] Work Phone: Comment on above: The validity of the calculated GFR & GFRAA in patients over 70 years has not been determined. Clinical correlation is essential. Serum or plasma urea nitroge n measurement (mass/volume)on 03-22-2022 Urea nitrogen [Mass/Vol] 19 mg/dL 7-18 [facility] Work Phone: Thin prep Papanicolaou smear with manual screeningon 03-22-2022 Thin prep Papanicolaou smear with manual screening 8 5-15 [facility] Work Phone: ICD REMOTE CHECKon 2 Detection Configuration (Vent) 2 - Zone [facility] FastVT_Detection Interval 273 ms [facility] FastVT_Therapy Configuration 0 ATP(s) + 1 Shock(s) [facility] ICD FastVT DetectionStatus ENABLED [facility] ICD-Device [facility] BSX [facility] [id number] 0 [facility] ICD-SHOCKSDELIVEREDVENTR ICULAR 0 [facility] Implant Date 05/16/2021 [facility] Implant Date 02/24/2014 [facility] Lead1 Mfg [facility] Location RV [facility] MDT_PROG_TACHY_ZONE_DETE CTIONS_STATUS ENABLED [facility] Model A219 EMBLEM MRI S-ICD [facility] Model 3010 [facility] Serial Number [id number] [facility] Serial Number [id number] [facility] Therapy Status (Vent) Enabled [facility] VF Zone Detection Interval 250 ms [facility] VF Zone Therapy Configuration 0 ATP(s) + 1 Shock(s) [facility] No Panel Informationon 01-20 BLANK _ [facility] XR Wrist - left PA and Later al and Obliqueon 11-19-2020 IMPRESSION: No acute osseous abnormality identified. Negative ulnar variance. Social Services: CLAUDIA Transcribe Date/Time: Nov 19 2020 2:31P [...] tissue abnormality identified. DIVISION OF RADIOLOGY Provider, [facility] [place] - 11/19/2020 * * *Final Report* * [...] acute osseous abnormality identified. Negative ulnar variance. Social Services: PSCB Transcribe Date/Time: Nov 19 2020 2:31P Dictated by : JAMES RAMIREZ MD This examination was interpreted and the report reviewed and electronically signed by: JAMES RAMIREZ MD on Nov 19 2020 2:32PM EST [facility] Radiology Study observation (narrative) Amanda phan [facility] XR Wrist - left PA and Later al and ObliqueOrdered By: [facility] Provider on 11-19-2020 [facility] Office Visit: [facility] f/u: l ower back strainon 07-10-2017 Fall risk assessment No Invalid Interpretation Code [facility] Work Phone: Protein mass conc Done Invalid Interpretation Code [facility] Work Phone: Tobacco smoking status NHIS Never Invalid Interpretation Code [facility] Work Phone: Tobacco smoking status NHIS Never smoker Invalid Interpretation Code [facility] Work Phone: No Panel Information [facility] Vital Signs Date Time Vital Sign Value Performing Clinician Faci lity 03-08-2025 12:00-0400 Diastolic blood pressure 66 mm[Hg] Maryana Zelaya MD Work Phone: [facility] 03-08-2025 12:00-0400 Heart rate 49 /min Maryana Zelaya MD Work Phone: [facility] 03-08-2025 12:00-0400 Respiratory rate 18 /min Maryana Zelaya MD Work Phone: [facility] 03-08-2025 12:00-0400 SaO2% (BldA) [Mass fraction] 100 % Maryana Zelaya MD Work Phone: [facility] 03-08-2025 12:00-0400 Systolic blood pressure 102 mm[Hg] Maryana Zelaya MD Work Phone: [facility] 03-08-2025 11:50-0400 Body temperature 97.5 [degF] Maryana Zelaya MD Work Phone: [facility] 02-08-2025 22:02-0400 Body temperature 98.2 [degF] Dr. Enriqueta Duffy DO Work Phone: [facility] 02-08-2025 22:02-0400 Diastolic blood pressure 71 mm[Hg] Dr. Enriqueta Duffy DO Work Phone: [facility] 02-08-2025 22:02-0400 Heart rate 62 /min Dr. Enriqueta Duffy DO Work Phone: [facility] 02-08-2025 22:02-0400 Respiratory rate 16 /min Dr. Enriqueta Duffy DO Work Phone: [facility] 02-08-2025 22:02-0400 SaO2% (BldA) [Mass fraction] 100 % Dr. Enriqueta Duffy DO Work Phone: [facility] 02-08-2025 22:02-0400 Systolic blood pressure 108 mm[Hg] Dr. Enriqueta Duffy DO Work Phone: [facility] 02-08-2025 18:55-0400 Body height 172.[address] Enriqueta Duffy DO Work Phone: [facility] 02-08-2025 18:55-0400 Body mass index (BMI) [Ratio] 23.1 kg/m2 Dr. Enriqueta Duffy DO Work Phone: [facility] 02-08-2025 18:55-0400 Body weight 68.[address] Enriqueta Duffy DO Work Phone: [facility] 02-08-2025 07:53-0400 Body mass index (BMI) [Ratio] 23.57 kg/m2 Alec Blair APRN.WATER RESOURCE PROJECT MANAGER Work Phone: [facility] 02-08-2025 07:53-0400 Body weight 70.31 kg Alec Blair APRN.WATER RESOURCE PROJECT MANAGER Work Phone: [facility] 01-12-2025 09:34-0400 Body mass index (BMI) [Ratio] 23.42 kg/m2 Yissel Marcial APRN.WATER RESOURCE PROJECT MANAGER Work Phone: [facility] 01-12-2025 09:34-0400 Body weight 69.85 kg Yissel Marcial APRN.WATER RESOURCE PROJECT MANAGER Work Phone: [facility] 01-12-2025 09:34-0400 Diastolic blood pressure 66 mm[Hg] Yissel Marcial APRN.WATER RESOURCE PROJECT MANAGER Work Phone: [facility] 01-12-2025 09:34-0400 Heart rate 76 /min Yissel Marcial APRN.WATER RESOURCE PROJECT MANAGER Work Phone: [facility] 01-12-2025 09:34-0400 SaO2% (BldA) [Mass fraction] 99 % Yissel Marcial CONTENT ANALYST.WATER RESOURCE PROJECT MANAGER Work Phone: [facility] 01-12-2025 09:34-0400 Systolic blood pressure 98 mm[Hg] Yissel Marcial CONTENT ANALYST.WATER RESOURCE PROJECT MANAGER Work Phone: [facility] 01-11-2025 08:20-0400 Diastolic blood pressure 64 mm[Hg] Alec Haury CONTENT ANALYST.WATER RESOURCE PROJECT MANAGER Work Phone: [facility] 01-11-2025 08:20-0400 Systolic blood pressure 110 mm[Hg] Alec Haury CONTENT ANALYST.WATER RESOURCE PROJECT MANAGER Work Phone: [facility] 01-11-2025 07:49-0400 Body mass index (BMI) [Ratio] 23.87 kg/m2 Alec Haury CONTENT ANALYST.WATER RESOURCE PROJECT MANAGER Work Phone: [facility] 01-11-2025 07:49-0400 Body weight 71.22 kg Alec Hawhitney CONTENT ANALYST.WATER RESOURCE PROJECT MANAGER Work Phone: [facility] 09-07-2024 09:49-0500 Body height 172.7 cm Oneyda Recinos MD Work Phone: [facility] 09-07-2024 09:49-0500 Body mass index (BMI) [Ratio] 23.42 kg/m2 Oneyda Recinos MD Work Phone: [facility] 09-07-2024 09:49-0500 Body weight 69.85 kg Oneyda Recinos MD Work Phone: [facility] 09-07-2024 09:49-0500 Diastolic blood pressure 62 mm[Hg] Oneyda Recinos MD Work Phone: [facility] 09-07-2024 09:49-0500 Heart rate 45 /min Oneyda Recinos MD Work Phone: [facility] 09-07-2024 09:49-0500 Systolic blood pressure 107 mm[Hg] Oneyda Recinos MD Work Phone: [facility] 08-25-2024 07:41-0500 Body height 175.3 cm Alec Haury CONTENT ANALYST.WATER RESOURCE PROJECT MANAGER Work Phone: [facility] 08-25-2024 07:41-0500 Body mass index (BMI) [Ratio] 22.89 kg/m2 Alec Blair CONTENT ANALYST.WATER RESOURCE PROJECT MANAGER Work Phone: [facility] 08-25-2024 07:41-0500 Body weight 70.31 kg Alec Blair CONTENT ANALYST.WATER RESOURCE PROJECT MANAGER Work Phone: [facility] 08-25-2024 07:41-0500 Diastolic blood pressure 64 mm[Hg] Alec Blair CONTENT ANALYST.WATER RESOURCE PROJECT MANAGER Work Phone: [facility] 08-25-2024 07:41-0500 Systolic blood pressure 110 mm[Hg] Alec Hawhitney CONTENT ANALYST.WATER RESOURCE PROJECT MANAGER Work Phone: [facility] 07-14-2024 14:26-0400 Body mass index (BMI) [Ratio] 23.79 kg/m2 Yissel Suppan CONTENT ANALYST.WATER RESOURCE PROJECT MANAGER Work Phone: [facility] 07-14-2024 14:26-0400 Body weight 71.22 kg Yissel Suppan CONTENT ANALYST.WATER RESOURCE PROJECT MANAGER Work Phone: [facility] 07-14-2024 14:26-0400 Diastolic blood pressure 62 mm[Hg] Yissel Suppan CONTENT ANALYST.WATER RESOURCE PROJECT MANAGER Work Phone: [facility] 07-14-2024 14:26-0400 Heart rate 70 /min Yissel Suppan CONTENT ANALYST.WATER RESOURCE PROJECT MANAGER Work Phone: [facility] 07-14-2024 14:26-0400 SaO2% (BldA) [Mass fraction] 100 % Yissel Suppan CONTENT ANALYST.WATER RESOURCE PROJECT MANAGER Work Phone: [facility] 07-14-2024 14:26-0400 Systolic blood pressure 92 mm[Hg] Yissel Suppan CONTENT ANALYST.WATER RESOURCE PROJECT MANAGER Work Phone: [facility] 04-14-2024 13:36-0400 Body mass index (BMI) [Ratio] 23.95 kg/m2 Yissel Suppan CONTENT ANALYST.WATER RESOURCE PROJECT MANAGER Work Phone: [facility] 04-14-2024 13:36-0400 Body weight 71.67 kg Yissel Whitean CONTENT ANALYST.WATER RESOURCE PROJECT MANAGER Work Phone: [facility] 04-14-2024 13:36-0400 Diastolic blood pressure 62 mm[Hg] Yissel Whitean CONTENT ANALYST.WATER RESOURCE PROJECT MANAGER Work Phone: [facility] 04-14-2024 13:36-0400 Heart rate 44 /min Yissel Suppan CONTENT ANALYST.WATER RESOURCE PROJECT MANAGER Work Phone: [facility] 04-14-2024 13:36-0400 SaO2% (BldA) [Mass fraction] 98 % Yissel Suppan CONTENT ANALYST.WATER RESOURCE PROJECT MANAGER Work Phone: [facility] 04-14-2024 13:36-0400 Systolic blood pressure 100 mm[Hg] Yissel Suppan CONTENT ANALYST.WATER RESOURCE PROJECT MANAGER Work Phone: [facility] 02-25-2024 15:29-0400 Body height 172.7 cm Alec Nation CONTENT ANALYST.WATER RESOURCE PROJECT MANAGER Work Phone: [facility] 02-25-2024 15:29-0400 Body mass index (BMI) [Ratio] 22.96 kg/m2 Alec Nation CONTENT ANALYST.WATER RESOURCE PROJECT MANAGER Work Phone: [facility] 02-25-2024 15:29-0400 Body weight 68.49 kg Alec Nation CONTENT ANALYST.WATER RESOURCE PROJECT MANAGER Work Phone: [facility] 01-18-2024 07:17-0400 Body temperature 98 [degF] [facility] 01-18-2024 07:17-0400 Diastolic blood pressure 71 mm[Hg] [facility] 01-18-2024 07:17-0400 Heart rate 87 /min [facility] 01-18-2024 07:17-0400 Respiratory rate 12 /min [facility] 01-18-2024 07:17-0400 SaO2% (BldA) [Mass fraction] 100 % [facility] 01-18-2024 07:17-0400 Systolic blood pressure 108 mm[Hg] [facility] 01-18-2024 04:40-0400 Body height 172.72 cm [facility] 01-18-2024 04:40-0400 Body mass index (BMI) [Ratio] 23.8 kg/m2 [facility] 01-18-2024 04:40-0400 Body weight 71.2 kg [facility] 01-14-2024 09:27-0400 Body height 172.7 cm Esperanza Mercer MD Work Phone: [facility] 01-14-2024 09:27-0400 Body weight 70.58 kg Esperanza Mercer MD Work Phone: [facility] 01-14-2024 09:27-0400 Diastolic blood pressure 60 mm[Hg] Esperanza Mercer MD Work Phone: [facility] 01-14-2024 09:27-0400 Heart rate 46 /min Esperanza Mercer MD Work Phone: [facility] 01-14-2024 09:27-0400 Systolic blood pressure 93 mm[Hg] Esperanza Mercer MD Work Phone: [facility] 12-28-2023 14:48-0400 Body height 172.7 cm Oneyda Recinos MD Work Phone: [facility] 12-28-2023 14:48-0400 Body weight 71.67 kg Oneyda Recinos MD Work Phone: [facility] 12-28-2023 14:48-0400 Diastolic blood pressure 73 mm[Hg] Oneyda Recinos MD Work Phone: [facility] 12-28-2023 14:48-0400 Heart rate 46 /min Oneyda Recinos MD Work Phone: [facility] 12-28-2023 14:48-0400 Systolic blood pressure 113 mm[Hg] Oneyda Recinos MD Work Phone: [facility] 09-11-2023 12:58-0500 Body temperature 97.7 [degF] Natalya Ramos PA-C Work Phone: [facility] 09-11-2023 12:58-0500 Body weight 77.84 kg Natalya Athy PA-C Work Phone: [facility] 09-11-2023 12:58-0500 Diastolic blood pressure 64 mm[Hg] Natalya Athy PA-C Work Phone: [facility] 09-11-2023 12:58-0500 Heart rate 60 /min Natalya Athy PA-C Work Phone: [facility] 09-11-2023 12:58-0500 Respiratory rate 18 /min Natalya Athy PA-C Work Phone: [facility] 09-11-2023 12:58-0500 SaO2% (BldA) [Mass fraction] 99 % Natalya Athy PA-C Work Phone: [facility] 09-11-2023 12:58-0500 Systolic blood pressure 102 mm[Hg] Natalya Athy PA-C Work Phone: [facility] 09-02-2023 10:55-0500 Body height 172.[address] Work Phone: [facility] 09-02-2023 10:55-0500 Body weight 80.[address] Work Phone: [facility] 07-16-2023 12:42-0400 Body height 172.7 cm Noah Vasquez MD Work Phone: [facility] 07-16-2023 12:42-0400 Body weight 84.37 kg Noah Vasquez MD Work Phone: [facility] 07-16-2023 12:42-0400 Diastolic blood pressure 56 mm[Hg] Noah Vasquez MD Work Phone: [facility] 07-16-2023 12:42-0400 Heart rate 57 /min Noah Vasquez MD Work Phone: [facility] 07-16-2023 12:42-0400 SaO2% (BldA) [Mass fraction] 99 % Noah Vasquez MD Work Phone: [facility] 07-16-2023 12:42-0400 Systolic blood pressure 94 mm[Hg] Noah Vasquez MD Work Phone: [facility] 06-05-2023 10:51-0400 Body height 172.[address] Work Phone: [facility] 06-05-2023 10:51-0400 Body weight 90.[address] Work Phone: [facility] 05-13-2023 10:46-0400 Body height 172.7 cm Pacc 3 Work Phone: [facility] 05-13-2023 10:46-0400 Body weight 97.07 kg Pacc 3 Work Phone: [facility] 05-07-2023 11:34-0400 Body weight 97.52 kg Esperanza Mercer MD Work Phone: [facility] 05-03-2023 17:15-0400 Diastolic blood pressure 72 mm[Hg] [facility] 05-03-2023 17:15-0400 Heart rate 67 /min [facility] 05-03-2023 17:15-0400 Respiratory rate 16 /min [facility] 05-03-2023 17:15-0400 SaO2% (BldA) [Mass fraction] 98 % [facility] 05-03-2023 17:15-0400 Systolic blood pressure 107 mm[Hg] [facility] 05-03-2023 15:16-0400 Body height 172.72 cm [facility] 05-03-2023 15:16-0400 Body mass index (BMI) [Ratio] 33.5 kg/m2 [facility] 05-03-2023 15:16-0400 Body temperature 97.4 [degF] [facility] 05-03-2023 15:16-0400 Body weight 100.24 kg [facility] 03-26-2023 11:56-0400 Body weight 105.23 kg JUNAID Palma PA-C Work Phone: [facility] 03-26-2023 11:56-0400 Diastolic blood pressure 60 mm[Hg] NA Palma PA-C Work Phone: [facility] 03-26-2023 11:56-0400 Heart rate 62 /min NA Palma PA-C Work Phone: [facility] 03-26-2023 11:56-0400 Respiratory rate 16 /min NA Palma PA-C Work Phone: [facility] 03-26-2023 11:56-0400 SaO2% (BldA) [Mass fraction] 100 % NA Palma PA-C Work Phone: [facility] 03-26-2023 11:56-0400 Systolic blood pressure 98 mm[Hg] NA Palma PA-C Work Phone: [facility] 03-24-2023 11:36-0400 Body weight 104.06 kg Esperanza Mercer MD Work Phone: [facility] 03-20-2023 10:03-0400 Body temperature 97.81 [degF] Elizabeth Mercado CONTENT ANALYST.WATER RESOURCE PROJECT MANAGER Work Phone: [facility] 03-20-2023 10:03-0400 Body weight 104.78 kg Elizabeth Mercado CONTENT ANALYST.WATER RESOURCE PROJECT MANAGER Work Phone: [facility] 03-20-2023 10:03-0400 Diastolic blood pressure 70 mm[Hg] Elizabeth Mercado CONTENT ANALYST.WATER RESOURCE PROJECT MANAGER Work Phone: [facility] 03-20-2023 10:03-0400 Heart rate 86 /min Elizabeth Mercado CONTENT ANALYST.WATER RESOURCE PROJECT MANAGER Work Phone: [facility] 03-20-2023 10:03-0400 Respiratory rate 16 /min Elizabeth Mercado CONTENT ANALYST.WATER RESOURCE PROJECT MANAGER Work Phone: [facility] 03-20-2023 10:03-0400 SaO2% (BldA) [Mass fraction] 98 % Elizabeth Mercado CONTENT ANALYST.WATER RESOURCE PROJECT MANAGER Work Phone: [facility] 03-20-2023 10:03-0400 Systolic blood pressure 122 mm[Hg] Elizabeth Mercado WATER RESOURCE PROJECT MANAGER Work Phone: [facility] 03-08-2023 01:00-0400 Diastolic blood pressure 78 mm[Hg] [facility] 03-08-2023 01:00-0400 Heart rate 62 /min [facility] 03-08-2023 01:00-0400 Systolic blood pressure 106 mm[Hg] [facility] 03-08-2023 00:37-0400 Respiratory rate 18 /min [facility] 03-08-2023 00:37-0400 SaO2% (BldA) [Mass fraction] 100 % [facility] 03-07-2023 20:50-0400 Body height 172.72 cm [facility] 03-07-2023 20:50-0400 Body mass index (BMI) [Ratio] 38.7 kg/m2 [facility] 03-07-2023 20:50-0400 Body temperature 97.1 [degF] [facility] 03-07-2023 20:50-0400 Body weight 115.57 kg [facility] 03-04-2023 12:43-0400 Body height 172.[address] Work Phone: [facility] 03-04-2023 12:43-0400 Body weight 106.[address] Work Phone: [facility] 02-02-2023 12:21-0400 Body height 172.[address] Work Phone: [facility] 02-02-2023 12:21-0400 Body weight 119.[address] Work Phone: [facility] 01-29-2023 11:31-0400 Body height 172.7 cm Pacc 4 Work Phone: [facility] 01-29-2023 11:31-0400 Body temperature 97.81 [degF] Pacc 4 Work Phone: [facility] 01-29-2023 11:31-0400 Body weight 119.89 kg Pac 4 Work Phone: [facility] 01-29-2023 11:31-0400 Diastolic blood pressure 74 mm[Hg] Pac 4 Work Phone: [facility] 01-29-2023 11:31-0400 Heart rate 62 /min Pac 4 Work Phone: [facility] 01-29-2023 11:31-0400 SaO2% (BldA) [Mass fraction] 100 % Pac 4 Work Phone: [facility] 01-29-2023 11:31-0400 Systolic blood pressure 113 mm[Hg] Pac 4 Work Phone: [facility] 01-29-2023 09:43-0400 Body height 172.7 cm Esperanza Mercer MD Work Phone: [facility] 01-29-2023 09:43-0400 Body weight 118.84 kg Esperanza Mercer MD Work Phone: [facility] 01-29-2023 09:43-0400 Diastolic blood pressure 78 mm[Hg] Esperanza Mercer MD Work Phone: [facility] 01-29-2023 09:43-0400 Heart rate 64 /min Esperanza Mercer MD Work Phone: [facility] 01-29-2023 09:43-0400 Systolic blood pressure 120 mm[Hg] Esperanza Mercer MD Work Phone: [facility] 11-25-2022 09:18-0500 Body height 172.7 cm Jayjay Phan Work Phone: [facility] 11-25-2022 09:18-0500 Body weight 118.84 kg Jayjay Phan Work Phone: [facility] 11-25-2022 09:18-0500 Diastolic blood pressure 64 mm[Hg] Jayjay Ortiz MD Work Phone: [facility] 11-25-2022 09:18-0500 Heart rate 79 /min Jayjay Phan Work Phone: [facility] 11-25-2022 09:18-0500 Respiratory rate 12 /min Jayjay Phan Work Phone: [facility] 11-25-2022 09:18-0500 SaO2% (BldA) [Mass fraction] 99 % Jayjay Ortiz MD Work Phone: [facility] 11-25-2022 09:18-0500 Systolic blood pressure 106 mm[Hg] Jayjay Ortiz MD Work Phone: [facility] 11-05-2022 08:36-0500 Body height 172.7 cm Amy Boudreauxaughlin CONTENT ANALYST.WATER RESOURCE PROJECT MANAGER Work Phone: [facility] 11-05-2022 08:36-0500 Body weight 123.83 kg Amy Julioghlin CONTENT ANALYST.WATER RESOURCE PROJECT MANAGER Work Phone: [facility] 11-05-2022 08:36-0500 Diastolic blood pressure 71 mm[Hg] Amy Alvarado CONTENT ANALYST.WATER RESOURCE PROJECT MANAGER Work Phone: [facility] 11-05-2022 08:36-0500 Heart rate 74 /min Amy Alvarado CONTENT ANALYST.WATER RESOURCE PROJECT MANAGER Work Phone: [facility] 11-05-2022 08:36-0500 SaO2% (BldA) [Mass fraction] 100 % Amy Alvarado CONTENT ANALYST.WATER RESOURCE PROJECT MANAGER Work Phone: [facility] 11-05-2022 08:36-0500 Systolic blood pressure 105 mm[Hg] Amy Alvarado CONTENT ANALYST.WATER RESOURCE PROJECT MANAGER Work Phone: [facility] 10-26-2022 04:51-0500 Diastolic blood pressure 66 mm[Hg] [facility] 10-26-2022 04:51-0500 Heart rate 87 /min [facility] 10-26-2022 04:51-0500 Respiratory rate 16 /min [facility] 10-26-2022 04:51-0500 SaO2% (BldA) [Mass fraction] 97 % [facility] 10-26-2022 04:51-0500 Systolic blood pressure 105 mm[Hg] [facility] 10-26-2022 04:02-0500 Body height 172.72 cm [facility] 10-26-2022 04:02-0500 Body mass index (BMI) [Ratio] 41.8 kg/m2 [facility] 10-26-2022 04:02-0500 Body temperature 97.9 [degF] [facility] 10-26-2022 04:02-0500 Body weight 124.7 kg [facility] 10-22-2022 12:41-0500 Body weight 123.83 kg NA Owen CONTENT ANALYST.WATER RESOURCE PROJECT MANAGER Work Phone: [facility] 10-22-2022 12:41-0500 Diastolic blood pressure 80 mm[Hg] NA Owen CONTENT ANALYST.WATER RESOURCE PROJECT MANAGER Work Phone: [facility] 10-22-2022 12:41-0500 Heart rate 73 /min NA Owen CONTENT ANALYST.WATER RESOURCE PROJECT MANAGER Work Phone: [facility] 10-22-2022 12:41-0500 Respiratory rate 16 /min NA Owen CONTENT ANALYST.WATER RESOURCE PROJECT MANAGER Work Phone: [facility] 10-22-2022 12:41-0500 SaO2% (BldA) [Mass fraction] 97 % NA Owen CONTENT ANALYST.WATER RESOURCE PROJECT MANAGER Work Phone: [facility] 10-22-2022 12:41-0500 Systolic blood pressure 123 mm[Hg] NA Owen CONTENT ANALYST.WATER RESOURCE PROJECT MANAGER Work Phone: [facility] 10-22-2022 08:41-0500 Body height 172.[address] Work Phone: [facility] 10-22-2022 08:41-0500 Body weight 123.[address] Work Phone: [facility] 10-22-2022 05:04-0500 Body height 172.7 cm Sleep Main Work Phone: [facility] 10-22-2022 05:04-0500 Body weight 124.5 kg Sleep Main Work Phone: [facility] 09-29-2022 12:06-0500 Body temperature 98.49 [degF] Bridget Praisler-Wood CONTENT ANALYST.WATER RESOURCE PROJECT MANAGER Work Phone: [facility] 09-29-2022 12:06-0500 Body weight 124.74 kg Bridget Praisler-Wood CONTENT ANALYST.WATER RESOURCE PROJECT MANAGER Work Phone: [facility] 09-29-2022 12:06-0500 Diastolic blood pressure 82 mm[Hg] Bridget Praisler-Wood CONTENT ANALYST.WATER RESOURCE PROJECT MANAGER Work Phone: [facility] 09-29-2022 12:06-0500 Heart rate 91 /min Bridget Praisler-Wood CONTENT ANALYST.WATER RESOURCE PROJECT MANAGER Work Phone: [facility] 09-29-2022 12:06-0500 Respiratory rate 20 /min Bridget Praisler-Wood CONTENT ANALYST.WATER RESOURCE PROJECT MANAGER Work Phone: [facility] 09-29-2022 12:06-0500 SaO2% (BldA) [Mass fraction] 98 % Bridget Praisler-Wood CONTENT ANALYST.WATER RESOURCE PROJECT MANAGER Work Phone: [facility] 09-29-2022 12:06-0500 Systolic blood pressure 118 mm[Hg] Bridget Praisler-Wood CONTENT ANALYST.WATER RESOURCE PROJECT MANAGER Work Phone: [facility] 09-12-2022 17:54-0500 Diastolic blood pressure 73 mm[Hg] [facility] 09-12-2022 17:54-0500 Heart rate 78 /min [facility] 09-12-2022 17:54-0500 Systolic blood pressure 110 mm[Hg] [facility] 09-12-2022 16:44-0500 Respiratory rate 17 /min [facility] 09-12-2022 15:27-0500 Body height 172.72 cm [facility] Work Phone: 09-12-2022 15:27-0500 Body mass index (BMI) [Ratio] 42.5 kg/m2 [facility] 09-12-2022 15:27-0500 Body temperature 96.8 [degF] [facility] 09-12-2022 15:27-0500 Body weight 126.77 kg [facility] 09-12-2022 15:27-0500 SaO2% (BldA) [Mass fraction] 98 % [facility] 09-10-2022 12:45-0500 Body height 172.7 cm Edna Lu TOVAR [facility] 09-10-2022 12:45-0500 Body weight 126.92 kg Edna Lu TOVAR [facility] 07-21-2022 16:02-0400 Body temperature 97.3 [degF] Sparkle Gimenez APRN.WATER RESOURCE PROJECT MANAGER Work Phone: [facility] 07-21-2022 16:02-0400 Body weight 127.91 kg Sparkle Gimenez APRN.WATER RESOURCE PROJECT MANAGER Work Phone: [facility] 07-21-2022 16:02-0400 Diastolic blood pressure 68 mm[Hg] Sparkle Gimenez APRN.WATER RESOURCE PROJECT MANAGER Work Phone: [facility] 07-21-2022 16:02-0400 Heart rate 74 /min Sparkle Gimenez APRN.WATER RESOURCE PROJECT MANAGER Work Phone: [facility] 07-21-2022 16:02-0400 Respiratory rate 16 /min Sparkle Gimenez APRN.WATER RESOURCE PROJECT MANAGER Work Phone: [facility] 07-21-2022 16:02-0400 SaO2% (BldA) [Mass fraction] 98 % Sparkle Gimenez APRN.WATER RESOURCE PROJECT MANAGER Work Phone: [facility] 07-21-2022 16:02-0400 Systolic blood pressure 108 mm[Hg] Sparkle Gimenez APRN.WATER RESOURCE PROJECT MANAGER Work Phone: [facility] 06-26-2022 23:18-0400 Diastolic blood pressure 72 mm[Hg] [facility] Work Phone: 06-26-2022 23:18-0400 Heart rate 67 /min [facility] Work Phone: 06-26-2022 23:18-0400 Respiratory rate 17 /min [facility] Work Phone: 06-26-2022 23:18-0400 SaO2% (BldA) [Mass fraction] 99 % [facility] Work Phone: 06-26-2022 23:18-0400 Systolic blood pressure 100 mm[Hg] [facility] Work Phone: 06-26-2022 20:38-0400 Body height 172.72 cm [facility] Work Phone: 06-26-2022 20:38-0400 Body mass index (BMI) [Ratio] 42.1 kg/m2 [facility] Work Phone: 06-26-2022 20:38-0400 Body temperature 98 [degF] [facility] Work Phone: 06-26-2022 20:38-0400 Body weight 125.64 kg [facility] Work Phone: 06-11-2022 07:21-0400 Body temperature 98.91 [degF] Tony Tavares CONTENT ANALYST.WATER RESOURCE PROJECT MANAGER Work Phone: [facility] 06-11-2022 07:21-0400 Body weight 125.65 kg Tony Tavares CONTENT ANALYST.WATER RESOURCE PROJECT MANAGER Work Phone: [facility] 06-11-2022 07:21-0400 Diastolic blood pressure 80 mm[Hg] Tony Tavares CONTENT ANALYST.WATER RESOURCE PROJECT MANAGER Work Phone: [facility] 06-11-2022 07:21-0400 Heart rate 88 /min Tony Tavares CONTENT ANALYST.WATER RESOURCE PROJECT MANAGER Work Phone: [facility] 06-11-2022 07:21-0400 Respiratory rate 16 /min Tony Tavares CONTENT ANALYST.WATER RESOURCE PROJECT MANAGER Work Phone: [facility] 06-11-2022 07:21-0400 SaO2% (BldA) [Mass fraction] 98 % Tony Tavares CONTENT ANALYST.WATER RESOURCE PROJECT MANAGER Work Phone: [facility] 06-11-2022 07:21-0400 Systolic blood pressure 134 mm[Hg] Tony Colemanlyndon CONTENT ANALYST.WATER RESOURCE PROJECT MANAGER Work Phone: [facility] 03-22-2022 18:08-0400 Diastolic blood pressure 72 mm[Hg] [facility] Work Phone: 03-22-2022 18:08-0400 Heart rate 95 /min [facility] Work Phone: 03-22-2022 18:08-0400 Respiratory rate 16 /min [facility] Work Phone: 03-22-2022 18:08-0400 SaO2% (BldA) [Mass fraction] 99 % [facility] Work Phone: 03-22-2022 18:08-0400 Systolic blood pressure 98 mm[Hg] [facility] Work Phone: 03-22-2022 15:48-0400 Body height 172.72 cm [facility] Work Phone: 03-22-2022 15:48-0400 Body mass index (BMI) [Ratio] 42.5 kg/m2 [facility] Work Phone: 03-22-2022 15:48-0400 Body temperature 96 [degF] [facility] Work Phone: 03-22-2022 15:48-0400 Body weight 127 kg [facility] Work Phone: 02-06-2022 14:34-0400 Body weight 126.55 kg JUNAID Palma PA-C Work Phone: [facility] 02-06-2022 14:34-0400 Diastolic blood pressure 72 mm[Hg] NA Louie PA-C Work Phone: [facility] 05-05-2022 14:34-0400 Heart rate 82 /min NA Palma PA-C Work Phone: [facility] 02-06-2022 14:34-0400 SaO2% (BldA) [Mass fraction] 99 % NA Palma PA-C Work Phone: [facility] 02-06-2022 14:34-0400 Systolic blood pressure 110 mm[Hg] NA Palma PA-C Work Phone: [facility] 01-23-2022 09:24-0400 Body height 172.7 cm Fawn Whiting APRN.WATER RESOURCE PROJECT MANAGER Work Phone: [facility] 01-23-2022 09:24-0400 Body weight 125.33 kg Fawn Whiting APRN.WATER RESOURCE PROJECT MANAGER Work Phone: [facility] 01-23-2022 09:24-0400 Diastolic blood pressure 60 mm[Hg] Fawn Whiting APRN.WATER RESOURCE PROJECT MANAGER Work Phone: [facility] 01-23-2022 09:24-0400 Heart rate 56 /min Fawn Whiting APRN.WATER RESOURCE PROJECT MANAGER Work Phone: [facility] 01-23-2022 09:24-0400 Systolic blood pressure 110 mm[Hg] Fawn Whiting APRN.WATER RESOURCE PROJECT MANAGER Work Phone: [facility] 07-10-2017 08:48-0400 BMI (Body Mass Index) 44.42 kg/m2 Johanna Anderson LPN [facility] Work Phone: 07-10-2017 08:48-0400 Body Temperature 97.3 [degF] Johanna Anderson LPN [facility] Work Phone: 07-10-2017 08:48-0400 BP Diastolic 84 mm[Hg] Johanna Anderson LPN [facility] Work Phone: 07-10-2017 08:48-0400 BP Systolic 116 mm[Hg] Johanna Anderson LPN [facility] Work Phone: 07-10-2017 08:48-0400 Height 172.72 cm oJhanna Anderson CORRECTION[employer]GRAM OFFICER [facility] Work Phone: 07-10-2017 08:48-0400 Pulse (Heart Rate) 101 /min Johanna Anderson [employer]RECTION[employer] OFFICER [facility] Work Phone: 07-10-2017 08:48-0400 Respiratory Rate 13 /min Johanna Anderson [facility] Work Phone: 07-10-2017 08:48-0400 Weight 132.54 kg Johanna Anderson [employer]RECTION[employer] PROGRAM OFFICER [facility] Work Phone: Encounters Encounter Date Encounter Type Care Provider Facility Start: 08-13-2025 End: 08-13-2025 Emergency department patient visit Yissel Marcial Facility:[facility] Start: 07-13-2025 End: 07-13-2025 ambulatory ONEYDA RECINOS Facility:[facility] Start: 07-13-2025 End: 07-13-2025 [facility] Start: 07-13-2025 Encounter for genera l adult medical examination without abnormal findings [facility] Start: 07-12-2025 End: 07-12-2025 ambulatory TRI HAMMOND Facility:[facility] Start: 06-09-2025 End: 06-09-2025 Telephone encounter [facility] Comment on above: Anticoagulation Tele phone Fu Start: 06-06-2025 End: 06-06-2025 Telephone encounter Oneyda Recinos MD Work Phone: Cardiology Start: 05-19-2025 End: 05-19-2025 Refill Ellen Jeter MD Work Phone: [facility] [place] Comment on above: Refill Request Start: 05-08-2025 [...] End: 04-19-2025 Patient encounter procedure Ekg [facility] Work Phone: Cardiology Start: 04-19-2025 End: 04-19-2025 ambulatory ONEYDA RECINOS Card[facility] Start: 04-06-2025 End: 04-06-2025 Telephone encounter [facility] Comment on above: Anticoagulation Tele phone Fu Start: 03-23-2025 End: 03-24-2025 Telephone encounter [facility]ist [facility] Comment on above: Anticoagulation Start: 03-22-2025 End: 03-22-2025 ambulatory YISSEL MARCIAL Facility:[facility] Start: 03-15-2025 End: 03-15-2025 Orders Only Oneyda Recinos MD Work Phone: Cardiology Comment on above: Atrial fibrillation, persistent (HCC) (Primary Dx) Start: 03-14-2025 End: 04-03-2025 Refill Oneyda Recinos MD Work Phone: Cardiology Comment on above: Refill Request (Sota lol-PENDING EKG) Start: 03-08-2025 ambulatory ELLEN BALDWIN Facili ty:[facility] Start: 03-08-2025 End: 03-08-2025 Subsequent hospital visit by physician Maryana Zelaya MD Work Phone: [facility] Endoscopy Comment on above: Marginal ulcer [K28. 9] Start: 03-03-2025 End: 03-03-2025 Telephone encounter [facility]ist [facility] Comment on above: Anticoagulation Start: 03-02-2025 End: 03-02-2025 Telephone encounter [facility]ist [facility] Comment on above: Patient Update Start: 02-23-2025 End: 02-23-2025 ambulatory YISSEL MARCIAL Facility:[facility] Start: 02-23-2025 Encounter for other preprocedural examination TRI HAMMOND [facility] Start: 02-20-2025 End: 02-20-2025 Telephone encounter [facility]ist [facility] Comment on above: Anticoagulation Start: 02-08-2025 End: 02-08-2025 Emergency department patient visit Dr. Enriqueta Duffy DO Work Phone: -Emergency Department Work Phone: Start: 02-08-2025 End: 02-08-2025 Patient encounter procedure Alec Blair APRN.WATER RESOURCE PROJECT MANAGER Work Phone: OB/Gynecology Comment on above: Surveillance of prev iously prescribed intrauterine contraceptive device (Primary Dx) Start: 02-08-2025 End: 02-08-2025 ambulatory ALEC BLAIR Facility:[facility] Start: 02-07-2025 End: 02-09-2025 Admission to same [...] Start: 01-13-2025 End: 03-15-2025 Follow-up encounter Yissel Marcial APRN.WATER RESOURCE PROJECT MANAGER Work Phone: [facility] Start: 01-12-2025 End: 01-12-2025 ambulatory YISSEL MARCAIL Facility:[facility] Start: 01-12-2025 End: 01-12-2025 Office outpatient visit 15 minutes Yissel Marcial CONTENT ANALYST.WATER RESOURCE PROJECT MANAGER Work Phone: [facility] [place] Comment on above: Paroxysmal atrial fi brillation (HCC) (Primary Dx); Ventricular tachyarrhythmia (HCC); Dilated cardiomyopathy (HCC); 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 anticoagulants; Vitamin D deficiency, unspecified; Rosacea Start: 01-11-2025 End: 01-11-2025 Patient encounter procedure Tri Hammond MD Work Phone: Ophthalmology Comment on above: Rosacea keratitis (P rimary Dx); 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; Dry eye syndrome of both eyes; Irregular astigmatism of both eyes Start: 01-11-2025 End: 01-11-2025 ambulatory TRI HAMMOND Facility:[facility] Start: 01-11-2025 End: 01-11-2025 Patient encounter procedure Alec Blair WATER RESOURCE PROJECT MANAGER Work Phone: OB/Gynecology Comment on above: Encounter [...] Cardiology Start: 12-09-2024 End: 12-12-2024 Refill Tri Hammond MD Work Phone: [facility] Comment on above: Refill Request (Rest asis) Start: 12-08-2024 End: 12-12-2024 Telephone encounter [facility]ist [facility] Comment on above: Anticoagulation Tele phone Fu Start: 12-01-2024 End: 12-05-2024 Refill Tri Hammond MD Work Phone: [facility] Comment on above: Refill Request Start: 11-23-2024 End: 11-23-2024 Telephone encounter [facility]ist [facility] Comment on above: Erroneous encounter- disregard Start: 11-04-2024 End: 12-09-2024 Telephone encounter [facility]ist [facility] Comment on above: Patient Update (Upda sheron home INR meter PAF) Start: 11-03-2024 End: 11-03-2024 Telephone encounter [facility]ist [facility] Comment on above: Anticoagulation Start: 11-03-2024 End: 11-03-2024 ambulatory ALEC BLAIR Facility:[facility] Start: 11-03-2024 End: 11-03-2024 Subsequent hospital visit by physician Screen Mammo [facility] Comment on above: Encounter for screen ing mammogram for breast cancer [Z12.31] Start: 10-26-2024 End: 10-26-2024 Refill Tri Hammond MD Work Phone: [facility] Comment on above: Refill Request Start: 10-23-2024 End: 10-23-2024 Orders Only Oneyda Recinos MD Work Phone: Cardiology Comment on above: Atrial fibrillation, unspecified type (HCC) (Primary Dx); Paroxysmal atrial fibrillation (HCC) Start: 10-13-2024 End: 10-25-2024 Telephone encounter Milla Douglas [facility] Comment on above: Referral Update Start: 09-14-2024 End: 09-15-2024 Telephone encounter Milla Douglas [facility] Comment on above: Anticoagulation Tele phone [...] Start: 09-07-2024 End: 09-07-2024 ambulatory ONEYDA RECINOS Facility:[facility] Start: 08-31-2024 End: 08-31-2024 ambulatory Kylah Palma Facility:[facility] Start: 08-26-2024 End: 08-26-2024 ambulatory Kylah Palma Facility:[facility] Start: 08-26-2024 End: 08-26-2024 Emergency department patient visit Kylah Palma Facility:[facility] Start: 08-25-2024 End: 08-25-2024 ambulatory YISSEL MARCIAL Facility:[facility] Start: 08-25-2024 End: 08-25-2024 Patient encounter procedure Alec Roywhitney GONZALEZ Work Phone: OB/Gynecology Comment on above: Encounter for IUD in sertion (Primary Dx); Screening for cervical cancer; Encounter for gynecological examination (general) (routine) without abnormal findings; Encounter for screening for human papillomavirus (HPV); Encounter for screening mammogram for breast cancer; Encounter for IUD removal; Decreased libido Start: 08-25-2024 End: 08-25-2024 Patient encounter status Alec Roywhitney GONZALEZ Work Phone: [facility] Start: 07-29-2024 End: 07-29-2024 Refill M Neela Palma PA-C Work Phone: [facility] Comment on above: Refill Request Start: 07-28-2024 [...] 07-14-2024 Office outpatient visit 25 minutes Yissel Marcial APRN.CNP Work Phone: [facility] Comment on above: HOCM (hypertrophic o bstructive cardiomyopathy) (HCC) (Primary Dx); Encounter for immunization; Paroxysmal atrial fibrillation (HCC); Ventricular tachyarrhythmia (HCC); ICD (implantable cardioverter-defibrillator) in place; Kquaq-Rixjkdfnu-Exahe (WPW) syndrome; S/P gastric bypass; Hair loss; Screening for depression; Encounter for screening examination for other mental health and behavioral disorders; Screening for cervical cancer Start: 07-13-2024 End: 07-13-2024 Telephone encounter [facility] Comment on above: Anticoagulation Tele phone Fu Start: 07-13-2024 End: 07-13-2024 Patient encounter procedure Tri Hammond MD Work Phone: Ophthalmology Comment on above: [...] 06-08-2024 End: 06-08-2024 Patient encounter procedure Tri Hammond MD Work Phone: [facility] Comment on above: Rosacea keratitis (P rimary Dx); 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; Dry eye syndrome of both eyes Start: 06-08-2024 End: 06-08-2024 Telephone encounter Tri Hammond MD Work Phone: [facility] Comment on above: Insurance Authorizat ion (Restasis) Start: 06-02-2024 End: 06-09-2024 Telephone encounter [facility]ist [facility] Comment on above: Anticoagulation Tele phone Fu Patient Question Start: 06-01-2024 End: 06-01-2024 Patient encounter procedure Oneyda Fajardo OD Work Phone: [facility] [place] Comment on above: Rosacea keratitis (P rimary [...] Start: 05-25-2024 End: 05-25-2024 Telephone encounter Tri Hammond MD Work Phone: [facility] Comment on above: Forms Start: 05-19-2024 Telephone encounter Pharmacist 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 Comment on above: Anticoagulation (Kaylyn e INR) Patient Update; Allie ent Question Start: 05-03-2024 End: 05-03-2024 ambulatory TRI HAMMOND Facility:[facility] Start: 04-29-2024 Telephone encounter Tri kan MD Work Phone: [facility] Comment on above: Appointment (Surgery Arrival) Start: 04-28-2024 Telephone encounter Pharmacist [facility] Comment on above: Anticoagulation (Kaylyn e INR) Start: 04-15-[address] Work Phone: General Surgery Start: 04-14-2024 Telephone encounter Pharmacist [facility] Comment on above: Anticoagulation Start: 04-14-2024 End: 04-14-2024 Office outpatient visit 15 minutes Yissel Marcial APRN.CNP Work Phone: [facility] Comment on above: Pre-op exam (Primary Dx) Start: 04-14-2024 End: 04-14-2024 Preprocedural examination done Yissel Marcial APRN.[employer] Work Phone: [facility] Work Phone: Start: 03-31-2024 Telephone encounter Pharmacist [facility] Comment on above: Anticoagulation Medical Clearance Start: 03-26-2024 Refill Cee james MD Work Phone: [facility] [place] Comment on above: Refill Request Start: 03-24-2024 Telephone encounter Pharmacist [facility] Comment on above: Anticoagulation Tele phone Fu Start: 03-22-2024 Telephone encounter Tri kan MD Work Phone: [facility] Comment on above: Schedule Surgery Start: 03-17-2024 Telephone encounter Pharmacist [facility] Comment on above: Anticoagulation Tele phone Fu Start: 03-16-2024 End: 03-16-2024 Patient encounter procedure Tri Hammond MD Work Phone: Ophthalmology Comment on above: Rosacea keratitis (P rimary Dx); Irregular astigmatism of both eyes; 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; Dry eye syndrome of both eyes Start: 03-15-2024 Orders Only Oneyda jerry MD Work Phone: Cardiology Comment on above: Atrial fibrillation, unspecified type (HCC) (Primary Dx) Start: 03-07-2024 Patient Outreach Carolina Glover RN Work Phone: Dairy [employer] Manager Management Comment on above: [facility] Of 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 Start: 03-03-2024 Telephone encounter Milla Douglas [facility] Comment on above: Anticoagulation Tele phone Fu Start: 02-29-2024 ambulatory Jessy Gramajo RN NU RSE LEARNING SUPPORT SPECIALIST Comment on above: Health information Start: 02-29-2024 Patient encounter procedure Peggy Rodríguez RN NURSE LEARNING SUPPORT SPECIALIST Comment on above: Clinical Symptoms Start: 02-29-2024 Telephone encounter Carlos Castelan i, MD Work Phone: General Surgery Start: 02-25-2024 End: 02-25-2024 Admission to same day surgery center Alec Nation APRN.WATER RESOURCE PROJECT MANAGER Work Phone: General Surgery BMI Comment on above: S/P gastric bypass ( Primary Dx) Start: 02-25-2024 End: 02-25-2024 Telemedicine consultation with patient Alec Nation APRN.WATER RESOURCE PROJECT MANAGER Work Phone: General Surgery BMI Start: 02-18-2024 Telephone encounter Pharmacist [facility] Comment on above: Anticoagulation Tele phone Fu Start: 02-09-2024 Telephone encounter Pharmacist [facility] Comment on above: Anticoagulation Start: 02-04-2024 Follow-up encounter Oneyda cantu MD Work Phone: [facility] Department Start: 02-04-2024 Patient encounter procedure Oneyda Recinos MD Work Phone: [facility] Start: 01-27-2024 Refill Oneyda jerry MD Work Phone: Cardiology Start: 01-20-2024 Telephone encounter Pharmacist [facility] Comment on above: Anticoagulation Tele phone Fu Start: 01-18-2024 End: 01-18-2024 Emergency department patient visit [facility] Work Phone: Start: 01-14-2024 Telephone encounter Pharmacist [facility] Comment on above: Anticoagulation Start: 01-14-2024 End: 01-14-2024 Office outpatient visit 15 minutes Esperanza Mercer MD Work Phone: General Surgery Comment on above: S/P gastric bypass ( Primary Dx); Vitamin D deficiency, unspecified Start: 12-28-2023 Follow-up encounter Oneyda cantu MD Work Phone: [facility] Start: 12-28-2023 End: 12-28-2023 Patient encounter procedure Oneyda Recinos MD Work Phone: [facility] Comment on above: Atrial fibrillation, unspecified type (HCC) (Primary Dx); HOCM (hypertrophic obstructive cardiomyopathy) (HCC); Ventricular tachyarrhythmia (HCC) Start: 12-23-2023 Telephone encounter Pharmacist [facility] Comment on above: Anticoagulation Tele phone Fu Start: 12-16-2023 Telephone encounter Pharmacist [facility] Comment on above: Anticoagulation Start: 12-15-2023 Refill Tri Hammond MD Work Phone: [facility] Comment on above: Refill Request Start: 12-10-2023 Telephone encounter Pharmacist [facility] Comment on above: Anticoagulation Start: 12-07-2023 Refill Kylah granger PA-C Work Phone: [facility] Comment on above: Refill Request Start: 12-03-2023 Telephone encounter Pharmacist [facility] Comment on above: Anticoagulation (Kaylyn e INR) Refill Request Start: 11-19-2023 Telephone encounter Pharmacist [facility] Comment on above: Anticoagulation Start: 11-12-2023 Telephone encounter Pharmacist [facility] Comment on above: Anticoagulation Start: 11-11-2023 End: 11-11-2023 Subsequent hospital visit by physician Screen/Diagnostic Mammo [facility] Work Phone: Mammography Comment on above: Abnormal mammogram [ R92.8] Start: 11-05-2023 Follow-up encounter Oneyda cantu MD Work Phone: [facility] Start: 11-05-2023 ICD Remote F/U Oneyda jerry MD Work Phone: [facility] Department Start: 09-11-2023 Telephone encounter Natalya hedrick PA-C Work Phone: [facility] Comment on above: Results Start: 09-11-2023 End: 09-11-2023 Subsequent hospital visit by physician Xr [facility] Work Phone: Radiology Comment on above: Lumbar radiculopathy [M54.16] Start: 09-11-2023 End: 09-11-2023 Patient encounter procedure Natalya Ramos PA-C Work Phone: [facility] Comment on above: Lumbar radiculopathy (Primary Dx) Start: 09-09-2023 Telephone encounter Pharmacist [facility] Comment on above: Anticoagulation Start: 09-08-2023 End: 07-20-2024 Telephone encounter Milla Douglas [facility] Comment on above: Anticoagulation Tele phone Fu Start: 09-02-2023 Telephone encounter Pharmacist [facility] Comment on above: Anticoagulation Tele phone Fu Start: 09-02-2023 End: 09-02-[address] Work Phone: Endocrinology BMI Comment on above: Impaired intestinal absorption (Primary Dx); S/P gastric bypass; Overweight (BMI 25.0-29.9); Dietary counseling and surveillance Start: 09-02-2023 End: 09-02-2023 Telemedicine consultation with patient Karen Garrett RD Work Phone: [facility] [facility] Start: 08-28-2023 Telephone encounter Daphnie Holman [facility] Comment on above: Anticoagulation Tele phone Fu Start: 08-05-2023 Follow-up encounter Oneyda cantu MD Work Phone: [facility] Start: 08-05-2023 Get Medical Advice Priyanka packer APRN.WATER RESOURCE PROJECT MANAGER Work Phone: Cardiology Comment on above: EKG order Anticoagulation Tele phone Fu Start: 08-05-2023 Patient encounter procedure Oneyda Recinos MD Work Phone: [facility] Start: 08-03-2023 Follow-up encounter Oneyda cantu MD Work Phone: [facility] Start: 08-03-2023 ICD Remote F/U Oneyda jerry MD Work Phone: [facility] Start: 07-30-2023 Telephone encounter Pharmacist [facility] Comment on above: Anticoagulation Start: 07-29-2023 End: 07-20-2024 Telephone encounter Milla Douglas [facility] Comment on above: Anticoagulation Tele phone Fu Start: 07-21-2023 Telephone encounter Milla Douglas [facility] Comment on above: Anticoagulation Tele phone Fu Start: 07-20-2023 Follow-up encounter Oneyda cantu MD Work Phone: [facility] Start: 07-20-2023 ICD Remote F/U Oneyda jerry MD Work Phone: [facility] Start: 07-16-2023 End: 07-16-2023 Patient encounter procedure Noah Vasquez MD Work Phone: Preventive Cardiology Comment on above: HOCM (hypertrophic o bstructive cardiomyopathy) (HCC) (Primary Dx); Paroxysmal atrial fibrillation (HCC); Overweight Start: 07-14-2023 Telephone encounter Pharmacist [facility] Comment on above: Anticoagulation Start: 07-09-2023 Refill Tri Hammond MD Work Phone: [facility] [place] Comment on above: Refill Request Start: 07-07-2023 Telephone encounter Tri kan MD Work Phone: [facility] [place] Comment on above: Insurance Authorizat ion Start: 06-05-2023 End: 06-05-2023 ambulatory Edna Sanderstracy TOVAR Work Phone: General Surgery Comment on above: S/P gastric bypass ( Primary Dx); Obesity, Class I, BMI 30-34.9; Dietary counseling and surveillance Start: 06-05-2023 End: 06-05-2023 Telemedicine consultation with patient Edna Leigh LA Work Phone: [facility] Start: 06-02-2023 Telephone encounter Kylah Palma PA-C Work Phone: [facility] [place] Comment on above: Anticoagulation Start: 06-01-2023 ambulatory Kylah granger PA-C Work Phone: [facility] [place] Comment on above: Warfain prescription Start: 06-01-2023 Telephone encounter [facility] Comment on above: Anticoagulation Tele phone Fu (Lab INR Result/) Start: 05-14-2023 Telephone encounter [facility] Comment on above: Anticoagulation Tele phone Fu (Lab INR Result) Start: 05-13-2023 End: 05-13-2023 Admission to [facility] 3 Work Phone: [facility] 1 Start: 05-13-2023 End: 05-13-2023 ambulatory Pacc 3 Work Phone: Pre Anesthesia Comment on above: Pre-op evaluation (P rimary Dx); Dlcpz-Twltvtubg-Tbzkn (WPW) syndrome; Paroxysmal atrial fibrillation (HCC); HOCM (hypertrophic obstructive cardiomyopathy) (HCC); ICD (implantable cardioverter-defibrillator) in place; Acute on chronic diastolic (congestive) heart failure (HCC); QUINTON (obstructive sleep apnea); S/P gastric bypass; Pre-diabetes; Obesity, Class I, BMI 30-34.9 Start: 05-13-2023 End: 05-13-2023 Preprocedural examination done Pac 3 Work Phone: [facility] Work Phone: Start: 05-10-2023 Telephone encounter Milla Douglas [facility] Comment on above: Anticoagulation Tele phone Fu Start: 05-08-2023 Telephone encounter Audra Mccollum [facility] P harmacy Ambulatory Telemanagement Comment on above: [...] Ny RN General Surgery Comment on above: [facility] My Chart Follow- up Start: 05-04-2023 Telephone encounter Clementina Ny RN General Surgery Comment on above: [facility] My Chart Follow- up Start: 05-03-2023 End: 05-03-2023 Emergency department patient visit [facility] Work Phone: Start: 04-20-2023 Follow-up encounter Oneyda cantu MD Work Phone: [facility] Start: 04-20-2023 ICD Remote F/U Oneyda jerry MD Work Phone: [facility] Department Start: 04-16-2023 Telephone encounter Kylah Palma PA-C Work Phone: Family [facility] [place] Comment on above: Anticoagulation Start: 04-14-2023 Chart abstracting [facility] Work Phone: Neurology Comment on above: CMN Start: 04-03-2023 Telephone encounter [facility] Comment on above: Anticoagulation Tele phone Fu (Lab INR Result/) Start: 04-01-2023 Telephone encounter Lora Raza [facility] Comment on above: Anticoagulation Tele phone Fu (Home meter enrollment) Start: 03-27-2023 ambulatory Kylah Neela granger PA-C Work Phone: Family [facility] [place] Comment on above: question Start: 03-27-2023 E-mail encounter fro m caregiver Kylah Palma PA-C Work Phone: [facility] Start: 03-27-2023 Telephone encounter Pharmacist [facility] Comment on above: Anticoagulation Tele phone Fu Start: 03-26-2023 Telephone encounter Jesu wilks MD Work Phone: Pulmonary Medicine Comment on above: Received Outside Med ical Records Start: 03-26-2023 End: 03-26-2023 Patient encounter procedure Kylah Palma PA-C Work Phone: Family [facility] [place] Comment on above: Abnormal urine (Prim kimberly Dx); Paroxysmal atrial fibrillation (HCC); Acute on chronic diastolic (congestive) heart failure (HCC); Dilated cardiomyopathy (HCC); HOCM (hypertrophic obstructive cardiomyopathy) (HCC); ICD (implantable cardioverter-defibrillator) in place; 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 anticoagulants; Impaired glucose tolerance; Obesity, Class II, BMI 35-39.9; QUINTON (obstructive sleep apnea); S/P ablation of accessory bypass tract; S/P gastric bypass; Izwjg-Uazgayiyu-Dfmjk (WPW) syndrome Start: 03-24-2023 End: 03-24-2023 Postop follow up visit related to original px Esperanza Mercer MD Work Phone: General Surgery Comment on above: Bariatric surgery st atus (Primary Dx); S/P gastric bypass; Postoperative state; Dysuria; USP (current) use of anticoagulants; Obstructive sleep apnea (adult) (pediatric) Start: 03-21-2023 Telephone encounter Klarissa Barrondanielle BASILIO.WATER RESOURCE PROJECT MANAGER Work Phone: [facility] Comment on above: Results Start: 03-20-2023 Telephone encounter [facility] Comment on above: Anticoagulation Tele phone Fu (Lab INR Result) Start: 03-20-2023 End: 03-20-2023 Patient encounter procedure Elizabeth Mercado CONTENT ANALYST.WATER RESOURCE PROJECT MANAGER Work Phone: [facility] Comment on above: Dysuria (Primary Dx) Start: 03-16-2023 Telephone encounter [facility] Comment on above: Erroneous encounter- disregard Start: 03-16-2023 End: 03-16-2023 Anticoagulant drug monitoring Pharmacist 15 Work Phone: Pharmacy Comment on above: 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 anticoagulants; Paroxysmal atrial fibrillation (HCC) Start: 03-12-2023 Orders Only Jayjay son MD Work Phone: [facility] Comment on above: USP (current) use of anticoagulants (Primary Dx) Start: 03-10-2023 ambulatory Jayjay son MD Work Phone: Cardiology Comment on above: Re: Metoprolol Paroxysmal atrial fi brillation (HCC) (Primary Dx) PAF (paroxysmal atri al fibrillation) (HCC) (Primary Dx) Re: Coumadin Start: 03-10-2023 E-mail encounter kei m caregiver Jayjay Ortiz MD Work Phone: [facility] Start: 03-10-2023 Telephone encounter Pharmacist [facility] Comment on above: Anticoagulation - In itial Consult Start: 03-09-2023 E-mail encounter fro m caregiver [facility] Provider TEAGAN FARMER [facility] Start: 03-09-2023 Patient encounter procedure [facility] Provider Endocrinology BMI Comment on above: Upcoming Nutrition A ppointment Start: 03-07-2023 End: 03-08-2023 Emergency department patient visit [facility] Start: 03-05-2023 End: 03-05-2023 Postop follow [...] End: 03-04-2023 Telemedicine consultation with patient Karen Garrett LA Work Phone: TEAGAN FARMER [facility] Start: 02-18-2023 Follow-up encounter Oneyda cantu MD Work Phone: [facility] Start: 02-18-2023 Patient encounter procedure Oneyda Recinos MD Work Phone: [facility] Department Start: 02-04-2023 End: 02-04-2023 ambulatory Amy Alvardao APRN.WATER RESOURCE PROJECT MANAGER Work Phone: Neurology Comment on above: QUINTON (obstructive sle ep apnea) (Primary Dx); Paroxysmal atrial fibrillation (HCC) Start: 02-04-2023 End: 02-04-2023 Telemedicine consultation with patient Amy Christiano BASILIO.WATER RESOURCE PROJECT MANAGER Work Phone: [facility] Start: 02-02-2023 End: 02-02-[address] Work Phone: General Surgery Comment on above: Obesity, Class III, BMI 40-49.9 (morbid obesity) (HCC) (Primary Dx); Dietary counseling and surveillance Start: 02-02-2023 End: 02-02-2023 Telemedicine consultation with patient Edna Leigh RD Work Phone: [facility] Start: 01-29-2023 End: 01-29-2023 ambulatory Clementina Ny RN General Surgery Comment on above: Pre-Op Update Pre-op evaluation (P rimary Dx); HOCM (hypertrophic obstructive cardiomyopathy) (HCC); Padmm-Gzlyusfqm-Xdrcu (WPW) syndrome; Paroxysmal atrial fibrillation (HCC); ICD (implantable cardioverter-defibrillator) in place; Acute on chronic diastolic (congestive) heart failure (HCC); QUINTON (obstructive sleep apnea); Body mass index 40.0-44.9, adult (HCC); Pre-diabetes Start: 01-29-2023 End: 01-29-2023 Admission to [facility] Main 4 Work Phone: [facility] Start: 01-29-2023 End: 01-29-2023 Patient encounter procedure Esperanza Mercer MD Work Phone: General Surgery Comment on above: Preoperative examina tion (Primary Dx); Body mass index 40.0-44.9, adult (HCC); Obstructive sleep apnea (adult) (pediatric); USP (current) use of anticoagulants; Obesity, Class II, BMI 35-39.9 Start: 01-29-2023 End: 01-29-2023 Preprocedural examination done Esperanza Mercer MD Work Phone: General Surgery Start: 01-14-2023 End: 01-14-2023 Patient encounter procedure Tri Hammond MD Work Phone: Ophthalmology Comment on above: [...] Medicine Comment on above: [facility] Start: 12-11-2022 End: 12-11-2022 Subsequent hospital visit by physician [facility] Work Phone: Radiology Comment on above: Liver nodule [K76.89 ] Start: 12-09-2022 End: 12-09-2022 Patient encounter procedure Tri Hammond MD Work Phone: Ophthalmology Comment on above: Rosacea keratitis (P rimary Dx); 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; Irregular astigmatism of both eyes; Dry eye syndrome of both eyes Start: 12-05-2022 Chart abstracting [facility] Work Phone: Neurology Comment on above: CMN Start: 12-05-2022 Telephone encounter Paige Rodriguez PA Work Phone: [facility] Comment on above: Results Start: 11-25-2022 End: 11-25-2022 Patient encounter procedure Jayjay Ortiz MD Work Phone: Cardiology Comment on above: HOCM (hypertrophic o bstructive cardiomyopathy) (HCC) (Primary Dx) Start: 11-19-2022 End: 11-19-2022 Patient encounter procedure Tri Hammond MD Work Phone: Ophthalmology Comment on above: [...] End: 11-05-2022 Patient encounter procedure Amy Alvarado APRN.CNP Work Phone: Neurology Comment on above: QUINTON (obstructive sle ep apnea) (Primary Dx); Paroxysmal atrial fibrillation (HCC); Acute on chronic diastolic (congestive) heart failure (HCC) Start: 11-04-2022 ambulatory Oneyda jerry MD Work Phone: Cardiology Comment on above: Fax number Start: 11-03-2022 ambulatory Oneyda jerry MD Work Phone: Cardiology Comment on above: Paperwork Start: 10-27-2022 Follow-up encounter Oneyda cantu MD Work Phone: [facility] Start: 10-27-2022 ICD Remote F/U Oneyda jerry MD Work Phone: [facility] Department Start: 10-26-2022 End: 10-26-2022 Emergency department patient visit [facility] Start: 10-25-2022 Chart abstracting Siobhan garcia CONTENT ANALYST.WATER RESOURCE PROJECT MANAGER Work Phone: General Surgery Start: 10-22-2022 End: 10-22-2022 Patient encounter procedure S Kishoreliana Owen CONTENT ANALYST.WATER RESOURCE PROJECT MANAGER Work Phone: Cardiology Comment on above: HOCM (hypertrophic o bstructive cardiomyopathy) (HCC) (Primary Dx); Paroxysmal atrial fibrillation (HCC) Start: 10-22-2022 End: 10-22-[address] Work Phone: General Surgery Comment on above: Reassessment; Patien t Education HOCM (hypertrophic o bstructive cardiomyopathy) (HCC) (Primary Dx) echo results Start: 10-22-2022 E-mail encounter fro m caregiver S Kishore Owen APRN.WATER RESOURCE PROJECT MANAGER Work Phone: [facility] Start: 10-20-2022 Follow-up encounter Oneyda cantu MD Work Phone: [facility] Start: 10-20-2022 ICD Remote F/U Oneyda jerry MD Work Phone: [facility] Department Start: 10-08-2022 Chart abstracting [facility] Work Phone: Neurology Comment on above: PSG Check In Start: 10-02-2022 End: 10-02-2022 Subsequent hospital visit by physician [facility] Work Phone: Radiology Comment on above: Class 3 obesity with alveolar hypoventilation, serious comorbidity, 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.9 in adult ([facility]) [E66.2, Z68.41] Start: 09-29-2022 End: 09-29-2022 Patient encounter procedure Bridget Ruano APRN.WATER RESOURCE PROJECT MANAGER Work Phone: [facility] Comment on above: Acute midline low ba ck pain with left-sided sciatica (Primary Dx); Leukocytes in urine Start: 09-24-2022 End: 09-24-2022 Subsequent hospital visit by physician [facility] Work Phone: Radiology Comment on above: Class 3 obesity with alveolar hypoventilation, serious comorbidity, 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.9 in adult ([facility]) [E66.2, Z68.41] Start: 09-22-2022 Telephone encounter Clementina Ny RN General Surgery Comment on above: Appointment Start: 09-12-2022 End: 09-12-2022 Emergency department patient visit [facility] Start: 09-10-2022 End: 09-10-[address] General Surgery Comment on above: Patient Education; A ssessment Start: 09-08-2022 Documentation procedure Mammog dieter Coordinator [facility] Start: 09-08-2022 Letter encounter Mammography Coordinator [facility] Department Start: 09-04-2022 End: 09-04-2022 Subsequent hospital visit by [facility] Comment on above: Encounter for screen ing mammogram for breast cancer [Z12.31] Start: 08-04-2022 Refill Jayjay son MD Work Phone: Cardiology Comment on above: Refill Request Start: 07-26-2022 Get Medical Advice Monica Whiting APRN.WATER RESOURCE PROJECT MANAGER Work Phone: Preventive Cardiology Comment on above: Wegovy refill Start: 07-21-2022 End: 07-21-2022 Patient encounter procedure Sparkle Gimenez APRN.WATER RESOURCE PROJECT MANAGER Work Phone: [facility] Comment on above: [place] eye disease of both eyes (Primary Dx) Start: 07-17-2022 Orders Only Jayjay son MD Work Phone: Cardiology Comment on above: HOCM (hypertrophic o bstructive cardiomyopathy) (HCC) (Primary Dx) Start: 06-26-2022 End: 06-26-2022 [facility] Start: 06-12-2022 Telephone encounter Jaja Abdullahi [facility] Comment on above: Appointment Start: 06-12-2022 End: 06-12-2022 ambulatory Radha Newby CONTENT ANALYST.WATER RESOURCE PROJECT MANAGER Work Phone: [facility] Comment on above: COVID-19 (Primary Dx ) Start: 06-12-2022 End: 06-12-2022 Telemedicine consultation with patient Radha Newby PRAFUL.WATER RESOURCE PROJECT MANAGER Work Phone: [facility] Start: 06-11-2022 End: 06-11-2022 Patient encounter procedure Tony Tavares CONTENT ANALYST.WATER RESOURCE PROJECT MANAGER Work Phone: [facility] Comment on above: Suspected COVID-19 v irus infection (Primary Dx) Start: 05-19-2022 Follow-up encounter Oneyda cantu MD Work Phone: [facility] Start: 05-19-2022 ICD Remote F/U Oneyda jerry MD Work Phone: [facility] Start: 04-22-2022 Orders Only Jayjay son MD Work Phone: Cardiology Comment on above: Paroxysmal atrial fi brillation (HCC) (Primary Dx) Start: 04-21-2022 Follow-up encounter Oneyda cantu MD Work Phone: [facility] Start: 04-21-2022 ICD Remote F/U Oneyda jerry MD Work Phone: [facility] Start: 04-21-2022 Refill Jayjay son MD Work Phone: Cardiology Comment on above: Refill Request Start: 03-22-2022 End: 03-22-2022 Emergency department [facility] Start: 02-20-2022 Refill Jayjay son MD Work Phone: Cardiology Comment on above: Refill Request Start: 02-18-2022 Refill Priyanka Muhammad rdt CONTENT ANALYST.WATER RESOURCE PROJECT MANAGER Work Phone: Cardiology Comment on above: Refill Request Start: 02-06-2022 End: 02-06-2022 Patient encounter procedure Kylah Palma PA-C Work Phone: [facility] Comment on above: Paroxysmal atrial fi brillation (HCC) (Primary Dx); Dilated cardiomyopathy (HCC); Acute on chronic diastolic (congestive) heart failure (HCC); ICD (implantable cardioverter-defibrillator) in place; HOCM (hypertrophic obstructive cardiomyopathy) (HCC); Impjm-Ejafawzfm-Dtntz (WPW) syndrome; Left bundle branch block; Ventricular [...] End: 01-23-2022 Patient encounter procedure Fawn Whiting APRN.WATER RESOURCE PROJECT MANAGER Work Phone: Preventive Cardiology Comment on above: Mixed hyperlipidemia (Primary Dx); Obesity, Class III, BMI 40-49.9 (morbid obesity) (HCC); Prediabetes Start: 01-18-2022 Follow-up encounter Oneyda cantu MD Work Phone: [facility] Start: 01-18-2022 ICD Remote F/U Oneyda jerry MD Work Phone: [facility] Start: 12-26-2021 Refill Priyanka dacosta CONTENT ANALYST.WATER RESOURCE PROJECT MANAGER Work Phone: Cardiology Comment on above: Refill Request Start: 11-19-2020 End: 11-19-2020 Subsequent hospital visit by physician [facility] Work Phone: Radiology Comment on above: Sprain of left wrist , subsequent encounter [S63.502D] Start: 08-03-2020 Follow-up status [facility] Start: 11-18-2019 Patient encounter status Esthela Marin APRN.WATER RESOURCE PROJECT MANAGER Work Phone: [facility] Work Phone: Procedures Date Procedure Procedure [...] UA DIP,URINE HCG (POC) Alec Blair APRN. WATER RESOURCE PROJECT MANAGER Work Phone: Start: 01-04-2025 INR in Platelet poor plasma by Coagulation assay Oneyda Recinos MD Work Phone: Start: 01-01-2025 INR in Platelet poor plasma by Coagulation assay Oneyda Recinos MD Work Phone: Start: 12-07-2024 INR in Platelet poor plasma by Coagulation assay Oneyad Recinos MD Work Phone: Start: 11-02-2024 INR in Platelet poor plasma by Coagulation assay Oneyda Recinos MD Work Phone: Start: 09-14-2024 INR in Platelet poor plasma by Coagulation assay Jayjay Ortiz MD Work Phone: Start: 09-07-2024 Prgrmg dev eval implantable subq lead dfb system [facility] [place] Provider Start: 07-28-2024 Prothrombin time [facility] Provider Start: 07-20-2024 Prothrombin time [facility] Provider Start: 07-14-2024 Adult depression screening assessment Yissel Marcial APRN.CNP Work Phone: Start: 07-13-2024 INR in [...] stick/tablet rgnt auto w/o microscopy Elizabeth Mercado CONTENT ANALYST.WATER RESOURCE PROJECT MANAGER Work Phone: Start: 03-16-2023 Prothrombin time [facility] Provider Start: 03-07-2023 Plain chest X-ray Start: 02-18-2023 ICD CLINIC CHECK Oneyda Recinos MD Work Phone: Start: 12-11-2022 Us abdominal real time w/image limited Meredith Avila PA-C Work Phone: Start: 11-19-2022 Clsr lacrimal punctum plug each Tri gutierrez MD Work Phone: Start: 11-19-2022 Computerized corneal topography uni/bi Tri Hammond MD Work Phone: Start: 10-27-2022 ICD REMOTE CHECK Oneyda Recinos MD Work Phone: Start: 10-26-2022 Plain chest X-ray Start: 10-20-2022 ICD REMOTE CHECK Oneyda Recinos MD Work Phone: Start: 10-02-2022 Radiologic exam chest 2 views Siobhan charles CONTENT ANALYST.[employer] Work Phone: Start: 09-29-2022 Culture bacterial quanttative colony count urine Bridget Ruano CONTENT ANALYST.WATER RESOURCE PROJECT MANAGER Work Phone: Start: 09-29-2022 Urnls dip stick/tablet rgnt auto w/o microscopy Bridget Ruano CONTENT ANALYST.WATER RESOURCE PROJECT MANAGER Work Phone: Start: 09-24-2022 Us abdominal real time w/image limited Siobhan Sellers CONTENT ANALYST.WATER RESOURCE PROJECT MANAGER Work Phone: Start: 09-04-2022 End: 09-04-2022 Mammography Bulk Order Provider Start: 06-26-2022 Plain chest X-ray Start: 05-19-2022 ICD REMOTE CHECK Oneyda Recinos MD Work Phone: Start: 04-21-2022 ICD REMOTE CHECK Oneyda Recinos MD Work Phone: Start: 03-22-2022 Plain chest X-ray Start: 01-18-2022 ICD REMOTE CHECK Oneyda Recinos MD Work Phone: Start: 03-16-2021 Adult depression screening assessment Priyanka Marin CONTENT ANALYST.WATER RESOURCE PROJECT MANAGER Work Phone: Start: 11-19-2020 Radex wrist complete minimum 3 views M Neela Palma PA-C Work Phone: Start: 10-23-2020 Mammography Priyanka Marin CONTENT ANALYST.WATER RESOURCE PROJECT MANAGER Work Phone: Plan of Treatment Date Care Activity Detail Author Start: 08-26-2034 Urine microalbumin profile DTaP,Tdap,Td Vaccine (3 - Td or Tdap) [facility] Start: 08-25-2029 Screening for malignant neoplasm of cervix Cervical Cancer Screening [facility] Start: 07-14-2029 Screening for malignant neoplasm of cervix Cervical Cancer Screening [facility] Start: 06-02-2026 Urine microalbumin profile [facility] Start: 01-12-2026 Annual PCP Team Chronic Disease Visit Annual PCP Team Chronic Disease Visit [facility] Start: 11-03-2025 Screening for malignant neoplasm of breast Mammogram Screening [facility] Start: 08-30-2025 End: 08-30-2025 Patient encounter procedure OB/Gynecology Comment on above: Annual Start: 07-14-2025 Annual PCP Team Chronic Disease Visit Annual PCP Team Chronic Disease Visit [facility] Start: 07-14-2025 Anxiety Screening Anxiety Screening [facility] Start: 07-14-2025 Covid-19 Vaccine ( season) Covid-19 Vaccine () [facility] Comment on above: Postponed from 06/05/2024 (Declined at t his time) Start: 07-14-2025 Depression Screening Depression Screening [facility] Start: 07-13-2025 End: 07-13-2025 Patient encounter procedure 07/13/2025 9:00 AM EDT Office Visit Family Medicine [facility] [address] [place] [address] Yissel Marcial APRN.WATER RESOURCE PROJECT MANAGER [address] [place] [address] Physical [facility] [place] Comment on above: Physical Start: 07-12-2025 End: 07-12-2025 Patient encounter procedure 07/12/2025 8:30 AM EDT Office Visit [facility] Ophthalmology [address] [place] [address] Tri Hammond MD [address] [place], [place] [id number] Diagnostics, [facility] [address] [facility] [address], [place] [id number] 5 MTH F/U DILATED EXAM Ophthalmology Comment on above: 5 MTH F/U DILATED EXAM Start: 06-14-2025 End: 06-14-2025 Patient encounter procedure Ophthalmology Comment on above: 5 MTH F/U DILATED EXAM Start: 06-05-2025 Influenza vaccination Influenza Vaccine (#1) [facility] Start: 05-10-2025 End: 05-10-2025 ambulatory [facility] Start: 04-19-2025 End: 04-19-2025 ambulatory 04/19/2025 3:30 PM EDT Procedure Cardiology [address] [place] [address] Dx: Atrial fibrillation, persistent (HCC) [I48.19] Cardiology Comment on above: Dx: Atrial fibrillation, persistent (HCC ) [I48.19] Start: 03-08-2025 End: 03-08-2025 Patient encounter procedure [facility] Start: 02-23-2025 End: 02-23-2025 Anesthesia consultation 02/23/2025 9:20 AM EDT PAT Pre Anesthesia [address] [place] [address] 1, Pacc [facility] [address] [place] [address] 03/08 Pre Anesthesia Comment on above: 03/08 Start: 02-08-2025 [facility] Start: 02-08-2025 End: 02-08-2025 Patient encounter procedure 02/08/2025 8:15 AM EDT Office Visit OB/Gynecology [address] [place] [id number] Alec Blair APRN.WATER RESOURCE PROJECT MANAGER [address] [place] [id number] IUD follow up OB/Gynecology Comment on above: IUD follow up Start: 01-12-2025 End: 04-13-2025 Comprehensive metabolic 2000 panel - Serum or Plasma [facility] Work Phone: Comment on above: Expected: 01/12/2025, Expires: Start: 01-12-2025 End: 01-12-2025 Patient encounter procedure 01/12/2025 10:00 AM EDT Office Visit Family [facility] [place] [address] [place] [id number] Yissel Marcial APRN.WATER RESOURCE PROJECT MANAGER [address] [place] [id number] 6 month follow up [facility] [place] Comment on above: 6 month follow up Start: 01-11-2025 End: 01-11-2025 Patient encounter procedure 01/11/2025 10:15 AM EDT Office Visit [facility] Op[facility]mology [address] [place] [id number] Tri Hammond MD [address] [place] [address] Dilated exam Ophthalmology Comment on above: Dilated exam Start: 01-11-2025 End: 01-11-2025 Patient encounter procedure 01/11/2025 8:15 AM EDT Office Visit OB/Gynecology [address] [place] [address] Alec Blair APRN.WATER RESOURCE PROJECT MANAGER [address] [place] [id number] Encounter for IUD insertion [Z30.430] OB/Gynecology Comment on above: Encounter for IUD insertion [Z30.430] Start: 11-03-2024 End: 11-03-2024 Patient encounter procedure 11/03/2024 7:30 AM EST Appointment Mammogram [address] [place] [address] Encounter for screening mammogram for breast cancer [Z12.31] Mammogram Comment on above: Encounter for screening mammogram for br east cancer [Z12.31] Start: 09-30-2024 Screening for malignant neoplasm of breast Mammogram Screening [facility] Start: 09-26-2024 End: 09-26-2024 Patient encounter procedure 09/26/2024 9:15 AM EST Office Visit Cardiology [address] [place] [address] Oneyda Recinos MD [address] [place] [address] Paroxysmal atrial fibrillation (HCC) [I48.0]; 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 terminal [...] 8:30 AM EST Results Only Cardiology [address] [place] [address] Paroxysmal atrial fibrillation (HCC) [I48.0]; 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 anticoagulants [Z79.01]; HOCM (hypertrophic obstructive cardiomyopathy) (HCC) [I42.1]; 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]; 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.890] Cardiology Comment on above: Paroxysmal atrial fibrillation (HCC) [I4 8.0]; USP (current) use of anticoagulants [Z79.01]; HOCM (hypertrophic obstructive cardiomyopathy) (HCC) [I42.1]; ICD (implantable cardioverter-defibrillator) in place [Z95.810]; 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.890] Start: 09-24-2024 Annual PCP Team Chronic Disease Visit Annual PCP Team Chronic Disease Visit [facility] Start: 09-07-2024 End: 09-07-2024 Patient encounter procedure 09/07/2024 9:00 AM EST Office Visit Cardiology [address] [place] [address] Oneyda Recinos MD [address] [place] [address] AFIB Cardiology Comment on above: AFIB Start: 09-07-2024 End: 09-07-2024 ambulatory 09/07/2024 8:15 AM EST Results Only Cardiology [address] [place] [address] AFIB Cardiology Comment on above: AFIB Start: 08-25-2024 End: 08-25-2024 Patient encounter procedure 08/25/2024 7:45 AM EST Office Visit OB/Gynecology [address] [place] [address] Alec Blair APRN.WATER RESOURCE PROJECT MANAGER [address] [place] [address] Screening for cervical cancer [Z12.4] OB/Gynecology Comment on above: Screening for cervical cancer [Z12.4] Start: 07-14-2024 End: 07-14-2024 Patient encounter procedure 07/14/2024 2:20 PM EDT Office Visit Family Medicine [facility] [address] [place] [address] Yissel Marcial APRN.WATER RESOURCE PROJECT MANAGER [address] [place] [address] 3 month f/u [facility] [place] Comment on above: 3 month f/u Start: 07-14-2024 End: 10-13-2024 25-hydroxyvitamin D3 [Mass/volume] in Serum or Plasma [facility] Comment on above: Expected: 07/14/2024, Expires: Start: 07-14-2024 End: 10-13-2024 Cobalamin (Vitamin B12) [Mass/volume] in Serum or Plasma [facility] Comment on above: Expected: 07/14/2024, Expires: Start: 07-14-2024 End: 10-13-2024 Comprehensive metabolic 2000 panel - Serum or Plasma [facility] Work Phone: Comment on above: Expected: 07/14/2024, Expires: Start: 07-14-2024 End: 10-13-2024 LIPID PANEL, NONFASTING [facility] Comment on above: Expected: 07/14/2024, Expires: Start: 07-14-2024 End: 10-13-2024 Magnesium [Mass/volume] in Serum or Plasma [facility] Comment on above: Expected: 07/14/2024, Expires: Start: 07-14-2024 End: 10-13-2024 Thyrotropin [Units/volume] in Serum or Plasma [facility] Comment on above: Expected: 07/14/2024, Expires: Start: 07-14-2024 End: 07-14-2024 Patient encounter procedure 07/14/2024 9:20 AM EDT Office Visit Family Medicine [place] [address] [place] [address] Kylah Palma PA-C [address] [facility] [place] [address] 3 month f/u [facility] Medicine [facility] Comment on above: 3 month f/u Start: 07-13-2024 End: 07-13-2024 Patient encounter procedure 07/13/2024 10:15 AM EDT Office Visit [facility] Ophthalmology [address] [place] [address] Tri Hammond MD [address] [place] [address] 1-2 ,month follow up Ophthalmology Comment on above: 1-2 ,month follow up Start: 06-08-2024 End: 06-08-2024 Patient encounter procedure 06/08/2024 3:45 PM EDT Office Visit [facility] [address] [place] [address] Tri Hammond MD [address] [place] [address] Return in about 2 weeks (around 05/30/2024). [facility] Comment on above: Return in about 2 weeks (around ). Start: 06-05-2024 Covid-19 Vaccine ( season) Covid-19 Vaccine ( season) [facility] Start: 06-05-2024 Covid-19 Vaccine ( season) Covid-19 Vaccine ( season) [facility] Start: 06-05-2024 Influenza vaccination [facility] Start: 06-01-2024 End: 06-01-2024 Patient encounter procedure 06/01/2024 12:45 PM EDT Office Visit [facility] [address] [place] [address] Oneyda Fajardo OD [address] [place] [address] Schedule one week with me in 06/01, okay to double if no slots available [facility] Comment on above: Schedule one week with me in 06/01, okay to double if no slots available Start: 05-16-2024 End: 05-16-2024 Patient encounter procedure 05/16/2024 4:00 PM EDT Office Visit [facility] [address] [place] [address] Tri Hammond MD [address] [place], [place] [id number]8- Return in about 1 week (around 05/16/2024). [facility] Comment on above: Return in about 1 week (around 05/16/2024 ). Start: 05-11-2024 End: 05-11-2024 Patient encounter procedure 05/11/2024 1:00 PM EDT Office Visit [facility] [address] [place] [address] Tri Hammond MD [address] [place] [address] [phone] WEEK PO KERATECTOMY OD [facility] Comment on above: 1 WEEK PO KERATECTOMY OD Start: 05-04-2024 End: 05-04-2024 Admission to same day surgery center 05/04/2024 8:00 AM EDT - 05/04/2024 8:36 AM EDT Surgery LD SURGERY [address] [place] [address] Tri Hammond MD [address] [place] [address] KERATECTOMY LD SURGERY Comment on above: KERATECTOMY [...] 3:39 PM EDT Surgery [facility] [address] [place] [address] Tri Hammond MD [address] [place] [address] KERATECTOMY [facility] Comment on above: KERATECTOMY Start: 05-03-2024 End: 05-03-2024 Excision lesion cornea xcp pterygium KERATECTOMY Irregular astigmatism of both eyes 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 213] Start: 04-15-2024 End: 04-15-2024 Admission to same day surgery center 04/15/2024 3:00 PM EDT [facility] General Surgery [address] [place] [address] Jamaal Patterson, [place] [address] [place], [place] [id number] post op 1yr gastric bypass in 02/08/2023 i left a detailed voicemail regarding these appointments General Surgery Comment on above: post op 1yr gastric bypass in 02/08/2023 i left a detailed voicemail regarding these appointments Start: 04-14-2024 End: 04-14-2024 Patient encounter procedure Family Medicine Cyn Comment on above: 6 month f/u pre op Dr Hammond 04/06 10/28 Start: 04-08-2024 End: 04-08-2024 Patient encounter procedure 04/08/2024 2:45 PM EDT Office Visit Cardiology [address] [place] [address] Jayjay Ortiz MD [address] [place] [address] per HVI follow up order Cardiology Comment on above: per HVI follow up order Start: 04-08-2024 End: 04-08-2024 Patient encounter procedure 04/08/2024 1:30 PM EDT Appointment Cardiology [address] [place] [address] Dx: HOCM (hypertrophic obstructive cardiomyopathy) (HCC) [I42.1 (ICD-10-CM)] Cardiology Comment on above: Dx: HOCM (hypertrophic obstructive cardi omyopathy) (HCC) [I42.1 (ICD-10-CM)] Start: 04-08-2024 End: 04-08-2024 ambulatory 04/08/2024 12:45 PM EDT Results Only Cardiology [address] [place] [address] Dx: HOCM (hypertrophic obstructive cardiomyopathy) (HCC) [I42.1 (ICD-10-CM)] Cardiology Comment on above: Dx: HOCM (hypertrophic obstructive cardi omyopathy) (HCC) [I42.1 (ICD-10-CM)] Start: 04-03-2024 Influenza vaccination Influenza Vaccine (#1) [facility] Comment on above: Postponed from 06/05/2023 (Declined at t his time) Start: 03-26-2024 ANNUAL PCP TEAM CHRONIC DISEASE VISIT ANNUAL PCP TEAM CHRONIC DISEASE VISIT [facility] Start: 03-24-2024 End: 03-24-2024 Patient encounter procedure 03/24/2024 10:00 AM EDT Office Visit Family Shirley Addison [address] [place] [address] Kylah Palma PA-C [address] [place] [address] 6 month f/u Family Shirley Addison Comment on above: 6 month f/u Start: 03-16-2024 End: 03-16-2024 Patient encounter procedure 03/16/2024 11:15 AM EDT Office Visit [facility] Ophthalmology [address] [place] [address] Tri Hammond MD [address] [place], [place] [id number] (rescheduled from 12/15) Return in about 6 months 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 Ophthalmology Comment on above: (rescheduled from 12/15) Return in about 6 months 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 Start: 02-25-2024 End: 02-25-2024 Admission to same day surgery center 02/25/2024 3:30 PM EDT [facility] General Surgery BMI [address] [place] [address] Alec Nation, CONTENT ANALYST.WATER RESOURCE PROJECT MANAGER [address] [place] [address] post op 1yr gastric bypass in 02/08/2023 i left a detailed voicemail regarding these appointments General Surgery BMI Comment on above: post op 1yr gastric bypass in 02/08/2023 i left a detailed voicemail regarding these appointments Start: 02-25-2024 End: 05-26-2024 25-hydroxyvitamin D3 [Mass/volume] in Serum or Plasma VITAMIN D 25 HYDROXY Lab Routine S/P gastric bypass Expected: 02/25/2024, Expires: 05/26/2024 [facility] Comment on above: Expected: 02/25/2024, Expires: 4 Start: 02-25-2024 End: 05-26-2024 CBC W Auto Differential panel - Blood COMPLETE BLOOD COUNT AND DIFFERENTIAL Lab Routine S/P gastric bypass Expected: 02/25/2024, Expires: 05/26/2024 [facility] Work Phone: Comment on above: Expected: 02/25/2024, Expires: 4 Start: 02-25-2024 End: 05-26-2024 Cobalamin (Vitamin B12) [Mass/volume] in Serum or Plasma VITAMIN B12 Lab Routine S/P gastric bypass Expected: 02/25/2024, Expires: 05/26/2024 [facility] Comment on above: Expected: 02/25/2024, Expires: 4 Start: 02-25-2024 End: 05-26-2024 Comprehensive metabolic 2000 panel - Serum or Plasma COMPREHENSIVE METABOLIC PANEL Lab Routine S/P gastric bypass Expected: 02/25/2024, Expires: 05/26/2024 [facility] Comment on above: Expected: 02/25/2024, Expires: Start: 02-25-2024 End: 05-26-2024 Ferritin [Mass/volume] in Serum or Plasma FERRITIN Lab Routine S/P gastric bypass Expected: 02/25/2024, Expires: 05/26/2024 [facility] Comment on above: Expected: 02/25/2024, Expires: Start: 02-25-2024 End: 05-26-2024 Folate [Mass/volume] in Serum or Plasma FOLATE, SERUM Lab Routine S/P gastric bypass Expected: 02/25/2024, Expires: 05/26/2024 [facility] Comment on above: Expected: 02/25/2024, Expires: Start: 02-25-2024 End: 05-26-2024 Hemoglobin A1c in Blood HEMOGLOBIN A1C Lab Routine S/P gastric bypass Expected: 02/25/2024, Expires: 05/26/2024 [facility] Comment on above: Expected: 02/25/2024, Expires: Start: 02-25-2024 End: 05-26-2024 Iron and Iron binding capacity panel - Serum or Plasma IRON AND TIBC Lab Routine S/P gastric bypass Expected: 02/25/2024, Expires: 05/26/2024 [facility] Comment on above: Expected: 02/25/2024, Expires: Start: 02-25-2024 End: 05-26-2024 Lipid 1996 panel - Serum or Plasma LIPID PANEL BASIC Lab Routine S/P gastric bypass Expected: 02/25/2024, Expires: 05/26/2024 [facility] Comment on above: Expected: 02/25/2024, Expires: Start: 02-25-2024 End: 05-26-2024 Thyrotropin [Units/volume] in Serum or Plasma THYROID STIMULATING HORMONE Lab Routine S/P gastric bypass Expected: 02/25/2024, Expires: 05/26/2024 [facility] Comment on above: Expected: 02/25/2024, Expires: 4 Start: 02-25-2024 End: 05-26-2024 VITAMIN B1 (THIAMINE), WHOLE BLOOD VITAMIN B1 (THIAMINE), WHOLE BLOOD Lab Routine S/P gastric bypass Expected: 02/25/2024, Expires: 05/26/2024 [facility] Comment on above: Expected: 02/25/2024, Expires: Start: 02-19-2024 End: 02-19-2024 Admission to same day surgery center 02/19/2024 2:15 PM EDT [facility] Surgery [address] [id number] Jamaal Patterson, RD [address] [id number] post op 1yr gastric bypass in 02/08/2023 i left a detailed voicemail regarding these appointments General Surgery Comment on above: post op 1yr gastric bypass in 02/08/2023 i left a detailed voicemail regarding these appointments Start: 01-18-2024 [facility] Start: 10-05-2023 Behavioral Health Screening Behavioral Health Screening [facility] Start: 10-05-2023 Depression Assessment Depression Assessment [facility] Start: 09-25-2023 End: 11-25-2023 CBC W Auto Differential panel - Blood CBC + DIFF Lab Routine S/P ablation of accessory bypass tract S/P gastric bypass Expected: 09/25/2023, Expires: 11/25/2023 [facility] Work Phone: Comment on above: Expected: 09/25/2023, Expires: 4 Start: 09-25-2023 End: 11-25-2023 Comprehensive metabolic 2000 panel - Serum or Plasma COMP METABOLIC PANEL Lab Routine S/P ablation of accessory bypass tract S/P gastric bypass Expected: 09/25/2023, Expires: 11/25/2023 [facility] Work Phone: Comment on above: Expected: 09/25/2023, Expires: 4 Start: 09-25-2023 End: 11-25-2023 Hemoglobin A1c in Blood HGB A1C Lab Routine Impaired glucose tolerance Expected: 09/25/2023, Expires: 11/25/2023 [facility] Work Phone: Comment on above: Expected: 09/25/2023, Expires: Start: 09-04-2023 Mammography [facility] Start: 06-12-2023 ANNUAL PCP TEAM CHRONIC DISEASE VISIT ANNUAL PCP TEAM CHRONIC DISEASE VISIT [facility] Start: 06-05-2023 Covid-19 Vaccine () Covid-19 Vaccine () [facility] Start: 06-05-2023 Influenza vaccination [facility] Start: 03-13-2023 End: 05-13-2023 PT panel - Platelet poor plasma by Coagulation assay PROTHROMBIN TIME/PT Lab Routine PAF (paroxysmal atrial fibrillation) (HCC) Expected: 03/13/2023 (Approximate), Expires: 05/13/2023 [facility] Work Phone: Comment on above: Expected: 03/13/2023 (Approximate), Expi res: 05/13/2023 Start: 03-07-2023 [facility] Start: 02-06-2023 ANNUAL PCP TEAM CHRONIC DISEASE VISIT ANNUAL PCP TEAM CHRONIC DISEASE VISIT [facility] Start: 02-06-2023 COVID-19 VACCINE (#1) COVID-19 VACCINE (#1) [facility] Comment on above: Postponed from 1985 (Declined at t his time) Postponed from 12/31 (Declined at this time) Start: 02-06-2023 COVID-19 VACCINE (1) COVID-19 VACCINE (1) [facility] Comment on above: Postponed from 1985 (Declined at t his time) Start: 02-06-2023 HPV TESTING HPV TESTING [facility] Comment on above: Postponed from 01/20/2022 (Currently [facility] eduled) Start: 02-06-2023 PAP TESTING PAP TESTING [facility] Comment on above: Postponed from 01/20/2022 (Currently [facility] eduled) Start: 01-08-2023 End: 01-09-2024 CBC W Auto Differential panel - Blood CBC + DIFF Lab Routine Class 3 severe obesity due to excess calories with serious comorbidity 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.9 in adult (HCC) Hypertrophic obstructive cardiomyopathy (HOCM) (HCC) Pre-op examination Expected: 01/08/2023, Expires: 01/09/2024 [facility] Work Phone: Comment on above: Expected: 01/08/2023, Expires: Start: 01-08-2023 End: 03-10-2023 Coagulation factor VIII activity actual/normal in Platelet poor plasma by Coagulation assay FACTOR VIII:C ASSAY Lab Routine Class 3 severe obesity due to excess calories with serious comorbidity 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.9 in adult (HCC) Hypertrophic obstructive cardiomyopathy (HOCM) (HCC) Pre-op examination Expected: 01/08/2023, Expires: 03/10/2023 [facility] Work Phone: Comment on above: Expected: 01/08/2023, Expires: Start: 01-08-2023 End: 01-09-2024 Comprehensive metabolic 2000 panel - Serum or Plasma COMP METABOLIC PANEL Lab Routine Class 3 severe obesity due to excess calories with serious comorbidity 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.9 in adult (HCC) Hypertrophic obstructive cardiomyopathy (HOCM) (HCC) Pre-op examination Expected: 01/08/2023, Expires: 01/09/2024 [facility] Work Phone: Comment on above: Expected: 01/08/2023, Expires: Start: 01-08-2023 End: 01-09-2024 TYPE AND SCREEN,30 DAY TYPE AND SCREEN,30 DAY Blood Bank Routine Class 3 severe obesity due to excess calories with serious comorbidity 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.9 in adult (HCC) Hypertrophic obstructive cardiomyopathy (HOCM) (HCC) Pre-op examination Expected: 01/08/2023, Expires: 01/09/2024 [facility] Work Phone: Comment on above: Expected: 01/08/2023, Expires: Start: 10-05-2022 DEPRESSION ASSESSMENT DEPRESSION ASSESSMENT [facility] Start: 2022 PAP TESTING PAP TESTING [facility] Start: 06-26-2022 Troponin I measurement [facility] Work Phone: Start: 06-26-2022 [facility] Work Phone: Start: 06-11-2022 End: 06-25-2022 SARS-CoV-2 (COVID-19) RNA [Presence] in Respiratory specimen by LAUREN with probe detection 2019 CORONAVIRUS Microbiology Routine Suspected COVID-19 virus infection Expected: 06/11/2022, Expires: 06/25/2022 [facility] Work Phone: Comment on above: Expected: 06/11/2022, Expires: 2 Start: 06-05-2022 Influenza vaccination [facility] Start: 04-22-2022 End: 06-22-2022 CBC panel - Blood by Automated count CBC Lab Routine Paroxysmal atrial fibrillation (HCC) Expected: 04/22/2022, Expires: 06/22/2022 [facility] Work Phone: Comment on above: Expected: 04/22/2022, Expires: 2 Start: 03-22-2022 Blood chemistry [facility] Work Phone: Start: 03-22-2022 End: 03-22-2022 [facility] Work Phone: Start: 03-16-2022 Adult depression screening assessment DEPRESSION SCREENING [facility] Start: 01-20-2022 HPV TESTING HPV TESTING [facility] Start: 01-20-2022 PAP TESTING PAP TESTING [facility] Start: 01-20-2022 Screening for malignant neoplasm of cervix [facility] Start: 11-19-2021 ANNUAL PCP TEAM CHRONIC DISEASE VISIT ANNUAL PCP TEAM CHRONIC DISEASE VISIT [facility] Start: 10-23-2021 Mammography MAMMOGRAM [facility] Start: 10-05-2021 DEPRESSION ASSESSMENT DEPRESSION ASSESSMENT [facility] Start: 08-28-2021 PNEUMOCOCCAL (2 - PCV) PNEUMOCOCCAL (2 - PCV) [facility] Start: 08-28-2021 Pneumococcal vaccination [facility] Start: 07-10-2017 End: 07-10-2017 Appointment Appointment [facility] Work Phone: Start: 2007 HPV Vaccine (1 - 3-dose SCDM series) HPV Vaccine (1 - 3-dose SCDM series) [facility] Start: 1999 Hepatitis B Vaccine (1 of 3 - 19+ 3-dose series) Hepatitis B Vaccine (1 of 3 - 19+ 3-dose series) [facility] Start: 1998 Anxiety Screening Anxiety Screening [facility] Start: 1998 Depression Screening Depression Screening [facility] Start: 1985 COVID-19 VACCINE (1) COVID-19 VACCINE (1) [facility] Start: 1980 COVID-19 VACCINE (#1) COVID-19 VACCINE (#1) [facility] Start: 1980 Dental Oral Exam Dental Oral Exam [facility] Start: 1980 Dental Perio Probing Dental Perio Probing [facility] Start: 1980 Dental Prophylaxis Dental Prophylaxis [facility] Start: 1980 Dental X-Ray: Bitewings Dental X-Ray: Bitewings [facility] in Start: 1980 Dental X-Ray: FMX/Fleming Dental X-Ray: FMX/Fleming [facility] Start: 1980 HEPATITIS B (1 of 3 - 3-dose series) HEPATITIS B (1 of 3 - 3-dose series) [facility] Start: 1980 Hepatitis B Vaccine (1 of 3 - 3-dose series) Hepatitis B Vaccine (1 of 3 - 3-dose series) [facility] Start: 1980 Periodontal Maintenance Periodontal Maintenance [facility] Bacteria identified in Urine by Culture URINE CULTURE Microbiology Routine Dysuria 03/20/2023 10:47 AM EDT [facility] Work Phone: End: 03-15-2026 Basic metabolic 2000 panel - Serum or Plasma BASIC METABOLIC PANEL Lab Routine Atrial fibrillation, persistent (HCC) Every 3 months for 4 Occurrences starting 03/15/2025 until 03/15/2026 [facility] Comment on above: Every 3 months for 4 Occurrences startin g 03/15/2025 until 03/15/2026 CARDIAC IMPLANTABLE DEVICE CHECK CARDIAC IMPLANTABLE DEVICE CHECK PACEART Routine Pacemaker reprogramming/check 09/07/2024 9:31 AM EST [facility] End: 09-24-2025 DBT Breast - bilateral screening WERO SCREENING [facility] Radiology Routine Encounter for screening mammogram for breast cancer 1 Occurrences starting 08/25/2024 until 09/24/2025 [facility] Work Phone: Comment on above: 1 Occurrences starting 08/25/2024 until 09/24/2025 DBT Breast - bilater al screening WERO SCREENING [facility] Radiology Routine Encounter for screening mammogram for breast cancer 11/03/2024 7:30 AM EST [facility] Work Phone: End: 01-13-2023 ECG COMPLETE ECG COMPLETE ECG Routine Ventricular tachyarrhythmia (HCC) Paroxysmal atrial fibrillation (HCC) 1 Occurrences starting 01/13/2022 until 01/13/2023 [facility] Work Phone: Comment on above: 1 Occurrences starting 01/13/2022 until 01/13/2023 End: 07-17-2023 ECG COMPLETE ECG COMPLETE ECG Routine HOCM (hypertrophic obstructive cardiomyopathy) (HCC) 1 Occurrences starting 07/17/2022 until 07/17/2023 [facility] Work Phone: Comment on above: 1 Occurrences starting 07/17/2022 until 07/17/2023 End: 10-22-2023 ECG COMPLETE ECG COMPLETE ECG Routine HOCM (hypertrophic obstructive cardiomyopathy) (HCC) 1 Occurrences starting 10/22/2022 until 10/22/2023 [facility] Work Phone: Comment on above: 1 Occurrences starting 10/22/2022 until 10/22/2023 End: 03-15-2025 ECG COMPLETE ECG COMPLETE ECG Routine Atrial fibrillation, unspecified type (HCC) 1 Occurrences starting 03/15/2024 until 03/15/2025 [facility] Work Phone: Comment on above: 1 Occurrences starting 03/15/2024 until 03/15/2025 ECG COMPLETE ECG COMPLETE ECG Routine Atrial fibrillation, unspecified type (HCC) HOCM (hypertrophic obstructive cardiomyopathy) (HCC) 1 Occurrences starting 09/12/2024 [facility] Work Phone: Comment on above: 1 Occurrences starting 09/12/2024 End: 03-15-2026 ECG COMPLETE ECG COMPLETE ECG Routine Atrial fibrillation, persistent (HCC) Every 3 months for 4 Occurrences starting 03/15/2025 until 03/15/2026 [facility] Work Phone: Comment on above: Every 3 months for 4 Occurrences startin g 03/15/2025 until 03/15/2026 End: 07-17-2023 Echocardiography ECHO Cardiology Routine HOCM (hypertrophic obstructive cardiomyopathy) (HCC) 1 Occurrences starting 07/17/2022 until 07/17/2023 [facility] Work Phone: Comment on above: 1 Occurrences starting 07/17/2022 until 07/17/2023 Excision lesion corn ea xcp pterygium KERATECTOMY Irregular astigmatism of both eyes 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 LD OR Insertion intrauteri ne device iud INSERT INTRAUTERINE DEVICE Procedures Routine Encounter for IUD insertion Ordered: 08/25/2024 [facility] Comment on above: Ordered: 08/25/2024 End: 03-15-2026 Magnesium [Mass/volume] in Serum or Plasma MAGNESIUM Lab Routine Atrial fibrillation, persistent (HCC) Every 3 months for 4 Occurrences starting 03/15/2025 until 03/15/2026 [facility] Comment on above: Every 3 months for 4 Occurrences startin g 03/15/2025 until 03/15/2026 PAP TEST PAP TEST Lab Dilip lara Screening for cervical cancer Encounter for screening for human papillomavirus (HPV) 08/25/2024 8:16 AM EST [facility] Patient Education [facility] Work Phone: Patient referral [facility] Work Phone: End: 03-12-2024 Prothrombin time INR FINGERSTICK B/O Lab Routine 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 100 Occurrences starting 03/12/2023 until 03/12/2024 [facility] Work Phone: Comment on above: 100 Occurrences starting 03/12/2023 unti l 03/12/2024 End: 03-12-2024 PT panel - Platelet poor plasma by Coagulation assay PROTHROMBIN TIME/PT Lab STAT USP (current) use of anticoagulants 50 Occurrences starting 03/12/2023 until 03/12/2024 [facility] Work Phone: Comment on above: 50 Occurrences starting 03/12/2023 until 03/12/2024 End: 04-08-2024 PT panel - Platelet poor plasma by Coagulation assay PROTHROMBIN TIME/PT Lab Routine Paroxysmal atrial fibrillation (HCC) 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 anticoagulants HOCM (hypertrophic obstructive cardiomyopathy) (HCC) ICD (implantable cardioverter-defibrillator ) in place S/P ablation of accessory bypass tract Once per week for 52 Occurrences starting 04/09/2023 until 04/08/2024 [facility] Work Phone: Comment on above: Once per week for 52 Occurrences startin g 04/09/2023 until 04/08/2024 REFER FOR ADMIT INTERVIEW REFER FOR ADMIT INTERVIEW Procedures Routine Class 3 severe obesity due to excess calories with serious comorbidity 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.9 in adult (HCC) Hypertrophic obstructive cardiomyopathy (HOCM) (HCC) Pre-op examination Ordered: 01/08/2023 [facility] Work Phone: Comment on above: Ordered: 01/08/2023 REFER FOR ADMIT INTERVIEW REFER FOR ADMIT INTERVIEW Procedures Routine Cholelithiasis with choledocholithiasis S/P gastric bypass Hypertrophic obstructive cardiomyopathy (HCC) Ordered: 05/07/2023 [facility] Work Phone: Comment on above: Ordered: 05/07/2023 Removal intrauterine device iud REMOVE INTRAUTERINE DEVICE Procedures Routine Encounter for IUD removal Ordered: 08/25/2024 [facility] Comment on above: Ordered: 08/25/2024 Tissue Pathology bio psy report [facility] Work Phone: Comment on above: Release Upon Ordering for 1 Occurrences starting 03/08/2025, 1 completed Troponin I measurement [facility] Work Phone: [facility] Immunizations Immunization Date Immunization Notes Care Provider [facility] 08-26-2024 tetanus toxoid, redu zane diphtheria toxoid, and acellular pertussis vaccine, adsorbed Dr. Enriqueta Duffy DO Work Phone: [facility] 07-14-2024 pneumococcal Conjuga te, unspecified formulation Yissel Suppan CONTENT ANALYST.WATER RESOURCE PROJECT MANAGER Work Phone: [facility] 07-14-2024 influenza, seasonal, injectable Yissel Suppan CONTENT ANALYST.WATER RESOURCE PROJECT MANAGER Work Phone: [facility] 07-14-2024 pneumococcal conjuga te (PCV20) vaccine, 20 valent (PREVNAR 20) Yissel Suppan CONTENT ANALYST.WATER RESOURCE PROJECT MANAGER Work Phone: [facility] 07-14-2024 influenza virus vacc ine, unspecified formulation Oneyda Recinos MD Work Phone: [facility] 08-28-2020 influenza, injectabl e, quadrivalent, preservative free Priyanka Tomas CONTENT ANALYST.WATER RESOURCE PROJECT MANAGER Work Phone: [facility] 08-28-2020 pneumococcal polysaccharide vaccine, 23 valent Priyanka Tomas CONTENT ANALYST.WATER RESOURCE PROJECT MANAGER Work Phone: [facility] 08-28-2020 influenza virus vacc ine, unspecified formulation Tri Hammond MD Work Phone: [facility] 12-03-2016 influenza, injectabl e, quadrivalent, preservative free Priyanka Tomas CONTENT ANALYST.[employer] Work Phone: [facility] Work Phone: 06-02-2016 tetanus toxoid, redu zane diphtheria toxoid, and acellular pertussis vaccine, adsorbed Priyanka Tomas CONTENT ANALYST.[employer] Work Phone: [facility] Work Phone: Payers Date Payer Category Payer Self-pay [id number] 2024 Unknown [id number] 2020 [employer] BLUE CARD PPO OOS [id number] 2020 Unknown [employer] BLUE CARD PPO OOS [id number] 2020-Present [phone] [address] [place] [address] PPO [id number] 2019 Unknown DENTAL METLIFE D ENTAL [id number] 2019-Present [phone] [address] [place] [address] Dental [id number] 2013 Unknown [id number] 2013 Unknown [id number] Unknown [id number] Unknown [id number] Unknown [id number] Unknown [id number] Unknown [id number] Social History Date Type Detail Facility Start: 06-11-2022 End: 02-08-2025 Tobacco smoking status NHIS Never smoked tobacco [facility] Start: 10-25-2021 End: 02-23-2025 Alcohol intake Current non-drinker of alcohol (finding) [facility] Start: 08-16-2020 End: 03-21-2023 History SDOH Alcohol Frequency 1 [facility] Start: 08-16-2020 History SDOH Alcohol Std Drinks 99 [facility] Start: 03-07-2020 History SDOH Social Connections Phone 4 [facility] Start: 11-30-2019 End: 03-21-2023 History SDOH Social Connections Get Together 2 [facility] Start: 11-30-2019 End: 03-21-2023 History SDOH Social Connections Hoahaoism 98 [facility] Start: 11-30-2019 End: 03-21-2023 History SDOH Social Connections Living 7 [facility] Start: 03-07-2020 End: 03-21-2023 History SDOH Physical Activity DPW 3 [facility] Start: 11-29-2019 Education 12 [facility] Start: 1980 Sex Assigned At Not on file [facility] Start: 10-20-2020 End: 09-04-2022 Exposure to SARS-CoV-2 (event) Not sure [facility] Start: 02-05-2022 End: 03-21-2023 History SDOH Social Connections Phone 5 [facility] Start: 02-05-2022 History SDOH Physica l Activity MPS 6 [facility] Start: 03-22-2022 End: 01-18-2024 Tobacco smoking status NHIS Unknown if ever smoked [facility] Start: 12-16-2019 None [facility] Start: 12-16-2019 With Family [facility] Start: 1980 Sex Assigned At Female W [facility] Start: 06-11-2022 Tobacco use and exposure Smoke less tobacco non-user [facility] Work Phone: Start: 06-01-2022 End: 06-11-2022 Exposure to SARS-CoV-2 (event) Yes [facility] Work Phone: Start: 03-21-2023 History SDOH Alcohol Std Drinks 0 [facility] Start: 02-04-2023 End: 03-21-2023 History of Social function [facility] Start: 02-04-2023 End: 03-21-2023 Social connection and isolation panel [facility] Start: 09-05-2012 How often do you att end cheondoism or muslim services? Patient refused [facility] Do you belong to any clubs or organizations such as cheondoism groups, unions, fraternal or athletic groups, or school groups? No [facility] Are you now , , , , never or living with a partner? Never [facility] How often to you hav e a drink containing alcohol? Never [facility] Do you feel stress - tense, restless, nervous, or anxious, or unable to sleep at night because your mind is troubled all the time - these days [OSQ] Not at all [facility] (I/We) worried wheth er (my/our) food would run out before (I/we) got money to buy more. Never true [facility] How hard is it for y ou to pay for the very basics like food, housing, medical care, and heating Somewhat hard [facility] Do you feel stress - tense, restless, nervous, or anxious, or unable to sleep at night because your mind is troubled all the time - these days [OSQ] To some extent [facility] (I/We) worried wheth er (my/our) food would run out before (I/we) got money to buy more. Sometimes true [facility] NEGATED: Highlighted row [facility] Medical Equipment Procedure Code Equipment Code Equipment Original Text Equipment Identifier Dates Ronan Thk1.65mm P tfe 4x.5in Cardiovascular Sterile - [id number] Start: 11-21-2019 [id number] Emblem Mri [id number] Start: 05-16-2021 [id number] Q-Tr ak Sq Electrode [id number] Start: 02-24-2014 Graft Ambio2 12m m Ambiodisk - [id number] Start: 05-03-2024 Goals Date Patient Goal Desired Activity /State Personal health goal Functional Status Date Assessment Result Facility 02-20-2023 Are you deaf, or do you have serious difficulty hearing No 02/20/2023 2:47 PM DEBT Shara Chao, LALI No [facility] 02-20-2023 Are you blind, or do you have serious difficulty seeing, even when wearing glasses No 02/20/2023 2:47 PM Shara Brock, LALI No [facility] 02-20-2023 Do you have serious difficulty walking or climbing stairs No 02/20/2023 2:47 PM Shara Brock, LALI No [facility] 02-20-2023 Do you have difficul ty dressing or bathing No 02/20/2023 2:47 PM Shara Brock, LALI No [facility] 02-20-2023 Because of a physica l, mental, or emotional condition, do you have difficulty doing errands alone such as visiting a physician's office or shopping No 02/20/2023 2:47 PM Shara Brock, LALI No [facility] Mental Status Date Assessment Result Facility 01-18-2024 Cognitive function Level Of Cons ciousness Awake;Alert;Appropriate [facility] Work Phone: 03-07-2023 Cognitive function Level Of Cons ciousness Awake;Alert;Appropriate;Fol lows Commands [facility] Work Phone: 02-20-2023 Because of a physica l, mental, or emotional condition, do you have serious difficulty concentrating, remembering, or making decisions No 02/20/2023 2:47 PM EDT Shara Chao, LALI No [facility] 10-26-2022 Cognitive function Level Of Cons ciousness Awake;Alert;Appropriate;Fol lows Commands [facility] Work Phone: 09-12-2022 Cognitive function Level Of Cons ciousness Awake;Alert;Appropriate;Fol lows Commands [facility] Work Phone: 03-22-2022 Cognitive function Level Of Cons ciousness Awake;Alert;Appropriate;Fol lows Commands [facility] Work Phone: Clinical Notes 11-22-2019 to 07-13-2025 Telephone Encounter - Milla Douglas [facility] - 06/09/2025 5:01 PM EDTTelephone Encounter - Milla Douglas [facility] - 06/09/2025 5:01 PM EDTMGlen fair RN - 04/19/2025 3:43 PM EDT Note Date & Type Note Facility 07-13-2025 Note HNO ID: [id number] Author: YISSEL MARCIAL APRN.CNP Service: ? Author Type: Nurse Practitioner Type: Progress Notes Filed: 07/13/2025 10:44 Note Text: Chief Reason For Appointment Patient presents with: Yearly Exam Chavo Cavanaugh is a 45 year old female who presents for annual exam. Last office visit date: 01/12/2025 Accompanied By self only Have you had any critical events, hospital stays, ER visits, surgeries or procedures since your last visit here in our office: Yes EGD Specialists/Other Healthcare Providers Seen: Patient Care Team: Yissel Marcial APRN.WATER RESOURCE PROJECT MANAGER as PCP - General (Family Medicine) Oneyda [...] checkup; trying to schedule an appointment with tele rn. GERD: - Recent increase in acid reflux, [...] MVr: ASA. Echo AND surg path reviewed. District Gauger with regard to screening of 1st degree [...] Obesity, Class I, Bmi 30-34.9 - 05/07/2023 Supervisor Area (Current) Use of Anticoagulants - 03/12/2023 S/P Gastric Bypass - 03/05/2023 History of Atrial Fibrillation - 11/19/2022 [place] (Obstructive Sleep Apnea) - 11/05/2022 Comment: 02/20/2023 New set: Settings 4 - 8 cm H2O, suitable mask per pt preference (nasal or pillow opt), chin strap, head gear, humidity, tubing, lifetime supplies. G47.33 [facility] [place]; [facility]# [phone]------FAX# [phone] Metabolic Syndrome - 10/02/2022 Pre-Diabetes - 10/02/2022 Vitamin D Deficiency, Unspecified - 10/02/2022 Patient Under Care of Multiple Providers - 02/05/2022 Comment: ICD Dr. Oneyda Recinos 1st; Dr. Oneyda Plunkett Bow Tacker Dr. Gaston DE LEON Paroxysmal Atrial Fibrillation (Hcc) - 08/27/2020 Comment: History as above. In SR. Plan: Continue sotalol 120 mg twice daily. EKG 2 hours after each sotalol dose. Continue anticoagulation with apixaban 5 mg twice daily. Continue Toprol-XL 50 mg twice daily. Anticipate (more content not included)... [facility] 07-12-2025 Note HNO ID: [id number] Author: TRI HAMMOND MD Service: ? Author Type: Physician Type: [...] others. I have seen and examined Chavo Cavanaugh. I have discussed the case and the management of this patient's care with the Resident/Fellow, if applicable. I also have reviewed and agree with the assessment and plan as stated above and agree with all of its relevant components. Tri Hammond MD [facility] 06-09-2025 Telephone encounter Note [facility] Amb[facility] Anticoagulation Clinic Anticoagulation Episode Summary Anticoagulation Care Providers Provider Role Specialty Phone number Oneyda Recinos MD Referring Cardiology [phone] Chavo Cavanaugh is a 44 year old year old [...] CREAT 0.77 07/14/2024 No components found for: TBILI3 Lab Results Component Value Date ALT 17 [...] unspecified type (hcc) Paroxysmal atrial fibrillation (hcc) USP (current) use of anticoagulants Anticoagulation Episode Summary Current INR goal: 2.0-3.0 Assessment: INR result of 1.2 is SUBtherapeutic due to: unknown cause - did not speak to patient Again left a pleading message to pt to Call [facility] at [phone] and at least leave a voicemail with [...] every day Left voice message And sent [employer] message Advised patient to increase dose for 2 days only then resume weekly regimen as noted above - made dosing decision based off of most recent dosing we had in chart (7.5mg daily) Next home INR check scheduled on 06/15/2025 Advised pt to Call [facility] at [phone] to confirm dosing and schedule follow-up Milla Douglas RPh Clinical Pharmacist, Pharmacy Anticoagulation Clinic [facility] Pager: [phone]. [facility] 06-09-2025 Miscellaneous Notes [facility]tico[facility] Anticoagulation Episode Summary Anticoagulation Care Providers Provider Role Specialty Phone number Oneyda Recinos MD Referring Cardiology [phone] Chavo Cavanaugh is a 44 year old year old [...] CREAT 0.77 07/14/2024 No components found for: TBILI3 Lab Results Component Value Date ALT 17 [...] to pt to Call [facility]madin Clinic at [phone] and at least leave a voicemail with [...] Advised pt to Call [facility] at [phone] to confirm dosing and schedule follow-up Milla Douglas RPh Clinical Pharmacist, Pharmacy Anticoagulation Clinic Pharm[facility] Pager: [phone]. Received call from Jane with INR ([employer]) for patient. Patient tested on Date: 06/08 with an out of range INR result of 1.2. PT INR (no units) Date Value 06/08/2025 1.2 05/31/2025 2.2 05/24/2025 1.1 [place] Paz ([employer]) Received fax from [facility] with INR results for patient. Patient tested on 06/08/2025 and the INR result was 1.2. Fax can be found under scanned documents as miscellaneous lab result. It may take a few minutes to transfer from [employer]. PT INR (no units) Date Value 06/08/2025 1.2 05/31/2025 2.2 05/24/2025 1.1 Bernardo Zamora, Head Of Conservation (scutcher tender) Pharmacy Anticoagulation Clinic documented in this encounter [facility] 06-09-2025 Telephone encounter Note Received call from Jane with [employer] ([employer]) for patient. Patient tested on Date: 06/08 with an out of range INR result of 1.2. PT INR (no units) Date Value 06/08/2025 1.2 05/31/2025 2.2 05/24/2025 1.1 [place] Paz ([employer]) [facility] 06-09-2025 Telephone encounter Note Received fax from [facility] with INR results for patient. Patient tested on 06/08/2025 and the INR result was 1.2. Fax can be found under scanned documents as miscellaneous lab result. [facility]R (no units) Date Value 06/08/2025 1.2 05/31/2025 2.2 05/24/2025 1.1 Bernardo Zamora, Head Of Conservation (scutcher tender) Pharmacy Anticoagulation Clinic [facility] 06-06-2025 Telephone encounter Note Spoke with patient, she often works long hours and has trouble answering phone at work. Last week 05/31/25 her INR was 2.2 and she is due to check tomorrow. She prefers [facility] send her MyChart messages when they cannot reach her by phone. Jumana Murguia, RN [facility] 06-06-2025 Miscellaneous Notes Spoke with patient, [...] to [place] in [place] [phone] when she calls back. Jumana Murguia RN [...] TC ----- Message ----- From: Milla Douglas [facility] Sent: 06/02/2025 3:28 PM EDT To: Oneyda Recinos MD Hi Dr. Recinos, This pt is on warfarin and has a home meter through the company that we use at the [facility]. We are currently managing her [...] Milla Douglas PharmD documented in this encounter [facility] 06-06-2025 Telephone encounter Note Called patient, message left to call back stressing importance of reason for call to check in [place]. [place] [phone] when she calls back. Jumana Murguia, RN [facility] 06-06-2025 Telephone encounter Note ----- Message [...] TC ----- Message ----- From: Milla Douglas [facility] Sent: 06/02/2025 3:28 PM EDT To: Oneyda Recinos MD Hi Dr. Recinos, This pt is on warfarin and has a home meter through the company that we use at the [facility]. We are currently managing her [...] department could assist. Thanks! Milla Douglas, JohnnyD [facility] 05-19-2025 Telephone encounter Note The following approved medication requests have been transmitted electronically. Requested Prescriptions Pending Prescriptions Disp Refills metoprolol succinate ER (TOPROL XL) 25 mg 24 hr tablet 45 tablet 5 Sig: Take 1.5 tablets by mouth once daily. Yissel Marcial APRN.WATER RESOURCE PROJECT MANAGER [facility] 05-19-2025 Miscellaneous Notes The following approved medication requests have been transmitted electronically. Requested Prescriptions Pending Prescriptions Disp Refills metoprolol succinate ER (TOPROL XL) 25 mg 24 hr tablet 45 tablet 5 Sig: Take 1.5 tablets by mouth once daily. Yissel Marcial APRN.CNP Prescription Refill Information The patient has [...] 2025 1:53 PM documented in this encounter [facility] 05-19-2025 Telephone encounter Note Prescription Refill [...] Vyas LPN May 19, 2025 1:53 PM [facility] 05-01-2025 Telephone encounter Note [facility] Anticoagulation Clinic Anticoagulation Episode Summary Anticoagulation Care Providers Provider Role Specialty Phone number Oneyda Recinos MD Referring Cardiology [phone] Chavo Cavanaugh is a 44 year old year old [...] CREAT 0.77 07/14/2024 No components found for: TBILI3 Lab Results Component Value Date ALT 17 [...] unspecified type (hcc) Paroxysmal atrial fibrillation (hcc) USP (current) use of anticoagulants Anticoagulation Episode Summary [...] Pharmacy Anticoagulation Clinic Pharmacy [facility] Pager: [phone]. [facility] 05-01-2025 Miscellaneous Notes [facility] Anticoagulation Clinic Anticoagulation Episode Summary Anticoagulation Care Providers Provider Role Specialty Phone number Oneyda Recinos MD Referring Cardiology [phone] Chavo Cavanaugh is a 44 year old year old [...] CREAT 0.77 07/14/2024 No components found for: TBILI3 Lab Results Component Value Date ALT 17 [...] Pharmacy Anticoagulation Clinic Pharmacy Antico[facility] Clinic Pager: [phone]. Received fax from [facility] with INR results for patient. Patient tested on 05/01/2025 and the INR result was 1.2. Fax can be found under scanned documents as miscellaneous lab result. It may take a few minutes to transfer from [employer]. PT INR (no units) Date Value 05/01/2025 1.2 04/06/2025 1.8 03/22/2025 2.7 Bernardo Zamora, Head Of Conservation (scutcher tender) Pharmacy Anticoagulation Clinic documented in this encounter [facility] 05-01-2025 Telephone encounter Note Received fax from [facility] with INR results for patient. Patient tested on 05/01/2025 and the INR result was 1.2. Fax can be found under scanned documents as miscellaneous lab result. It may take a few minutes to transfer from [employer]. PT INR (no units) Date Value 05/01/2025 1.2 04/06/2025 1.8 03/22/2025 2.7 Bernardo Zamora, Head Of Conservation (scutcher tender) Pharmacy Anticoagulation Clinic [facility] 04-19-2025 Note HNO ID: [id number] Author: GLEN GUIDO RN Service: ? Author Type: Registered Nurse Type: Progress Notes Filed: 04/19/2025 16:04 Note Text: EKG failed to transfer to MUSE. Scanned into scanned documents. Email sent to ordering MD for review. Glen Guido RN [facility] 04-19-2025 History of Present illness Narrative EKG failed to transfer to MUSE. Scanned into scanned documents. Email sent to ordering MD for review. Glen Guido RN documented in this encounter [facility] 04-06-2025 Telephone encounter Note [facility] Ambulatory Pharmacy Anticoagulation Clinic Anticoagulation Episode Summary Anticoagulation Care Providers Provider Role Specialty Phone number Oneyda Recinos MD Referring Cardiology [phone] Chavo Cavanaugh is a 44 year old year old [...] CREAT 0.77 07/14/2024 No components found for: TBILI3 Lab Results Component Value Date ALT 17 [...] day Left voice message And will send [employer] message Advised patient to increase dose for [...] Pharmacy Anticoagulation Clinic Pharmacy Anticoagulation Clinic Pager: [phone]. [facility] 04-06-2025 Miscellaneous Notes [facility] Anticoagulation Clinic Anticoagulation Episode Summary Anticoagulation Care Providers Provider Role Specialty Phone number Oneyda Recinos MD Referring Cardiology [phone] Chavo Cavanaugh is a 44 year old year old [...] CREAT 0.77 07/14/2024 No components found for: TBILI3 Lab Results Component Value Date ALT 17 [...] day Left voice message And will send 99.[employer]art message Advised patient to increase dose for [...] Pharmacy Anticoagulation Clinic Pharmacy Anticoagulation Clinic Pager: [phone]. Received fax from [facility] with INR results for patient. Patient tested on 04/06/2025 and the INR result was 1.8. Fax can be found under scanned documents as miscellaneous lab result. It may take a few minutes to transfer from [employer]. PT INR (no units) Date Value 04/06/2025 1.8 03/22/2025 2.7 03/02/2025 1.2 Bernardo Zamora Head Of Conservation (scutcher tender) Pharmacy Anticoagulation Clinic documented in this encounter [facility] 04-06-2025 Telephone encounter Note Received fax from [facility] with INR results for patient. Patient tested on 04/06/2025 and the INR result was 1.8. Fax can be found under scanned documents as miscellaneous lab result. It may take a few minutes to transfer from [employer]. PT INR (no units) Date Value 04/06/2025 1.8 03/22/2025 2.7 03/02/2025 1.2 Bernardo Zamora Head Of Conservation (scutcher tender) Pharmacy Anticoagulation Clinic [facility] 04-03-2025 Telephone encounter Note needs labs/EKG-patient was made aware [facility] 04-03-2025 Miscellaneous Notes needs labs/EKG-patient was [...] 09/07/2024 Jenna Flowers documented in this encounter [facility] 03-24-2025 Telephone encounter Note [facility] Ambulatory Pharmacy Anticoagulation Clinic Anticoagulation Episode Summary Anticoagulation Care Providers Provider Role Specialty Phone number Oneyda Recinos MD Referring Cardiology [phone] Chavo Cavanaugh is a 44 year old year old [...] CREAT 0.77 07/14/2024 No components found for: TBILI3 Lab Results Component Value Date ALT 17 [...] unspecified type (hcc) Paroxysmal atrial fibrillation (hcc) USP (current) use of anticoagulants Anticoagulation Episode Summary [...] Pharmacy Anticoagulation Clinic Pharmacy Anticoagulation Clinic Pager: [phone]. [facility] 03-24-2025 Miscellaneous Notes [facility] Ambulatory Pharmacy Anticoagulation Clinic Anticoagulation Episode Summary Anticoagulation Care Providers Provider Role Specialty Phone number Oneyda Recinos MD Referring Cardiology [phone] Chavo Cavanaugh is a 44 year old year old [...] CREAT 0.77 07/14/2024 No components found for: TBILI3 Lab Results Component Value Date ALT 17 [...] unspecified type (hcc) Paroxysmal atrial fibrillation (hcc) USP (current) use of anticoagulants Anticoagulation Episode Summary [...] Pharmacy Anticoagulation Clinic Pharmacy An[facility] Clinic Pager: [phone]. Pharmacy Anticoagulation Clinic received a fax from [facility] for the patient's INR result on 03/22. Fax will be sent to the patient's scanned documents. PT INR (no units) Date Value 03/22/2025 2.7 03/02/2025 1.2 02/18/2025 1.5 Bozena Calloway RN Pharmacy Anticoagulation Clinic documented in this encounter [facility] 03-23-2025 Telephone encounter Note PENDING EKG. [...] office visit in was 09/07/2024 Jenna Flowers [facility] 03-23-2025 Telephone encounter Note Pharmacy Anticoagulation Clinic received a fax from [facility] for the patient's INR result on 03/22. Fax will be sent to the patient's scanned documents. PT INR (no units) Date Value 03/22/2025 2.7 03/02/2025 1.2 02/18/2025 1.5 Bozena Calloway RN Pharmacy Anticoagulation Clinic [facility] 03-08-2025 Attending History and physical note UPDATED HISTORY AND PHYSICAL EXAMINATION SERVICE DATE: 03/08/2025 SERVICE TIME: 11:26 Participation of a fellow, resident, medical student, or advanced practice provider student in performing the sensitive examination was discussed with the patient or authorized entry level marketing representative. The patient or authorized entry level marketing representative has agreed to proceed with the [...] the Electronic Medical Record . SIGNATURE: Maryana Zelaya MD PATIENT NAME: Chavo Cavanaugh DATE: March 08, 2025 TIME: 11:26 AM Source Note - Latoya Ferrari APRN.CNP - 02/23/2025 9:30 AM EDT Images from the original note were not included. [facility] Perioperative Medicine Pre-Anesthesia Consultation Clinic HISTORY AND PHYSICAL EXAMINATION SERVICE DATE: 02/23/2025 SERVICE TIME: 9:59 AM PRIMARY CARE PHYSICIAN: Yissel Marcial APRN.WATER RESOURCE PROJECT MANAGER Assessment Patient has the following medical conditions which may affect vickie-operative course: ICD (implantable cardioverter-defibrillator) in place Assessment: s/p 2013 ICD placement and replaced 2022 EF 70%, Pt has 59% battery life remaining. Surgery is above umbilicus, NO pacemaker function programming necessary per CIED algorithm 02/07/2025 ICD device check View Cardiac Data and Report - Defibrillator [ID [id number]] Paroxysmal atrial fibrillation (HCC) Assessment: s/p ablation 2013, last known episode 06/2022 Taking metoprolol and sotalol and coumadin, received pre-op instructions to hold 5 days, pt verbalized understanding. Denies any recent palpitations Office Visit on 09/07/2024 Admna-Vhpycqxhf-Qscqc (WPW) syndrome Assessment: s/p ablation 2013 Stable [...] have a large neck STOP-Bang Score: 0 [id number] Score: CHF history: Yes Stroke/TIA/thromboembolism history: No Diabetes history: No [id number] Score: I - PHYSICAL EVALUATION AIRWAY Patient [...] in this encounter. REASON FOR VISIT: Chavo Cavanaugh is a 44 year old female who is scheduled for * No surgery found * at the request of Dr. Maryana Zelaya for consultation. My final recommendation will be [...] time) CHIEF COMPLAINT: Pre-op exam HPI: Chavo Cavanaugh is a 44 year old seen for PAC due to scheduled above surgery because h/o marginal ulcer that complicated gastric bypass surgery. REVIEW OF SYSTEMS: General: No weight loss, malaise or fevers. Neurological: No history of TIA's, stroke, PAWN SHOP KEEPER tumor, impaired sensorium, hemiplegia, paraplegia or quadraplegia. [...] congenital heart defect, DVT/PE, hyperlipidemia, hypertension, recent IN, PTCA and PVD. GI: See HPI. S/p gastric bypass, c/b marginal ulcer : No history of dysuria, frequency or incontinence, stones or chronic kidney disease. No difficulty urinating, nocturia > 1 time per night or hematuria. 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 Cardioverted with 150j under sedation DEFIBRILLATOR SURGERY 02/24/2014 ICD, redo WPW & atrial fib ablation EPS: DEFIB. SURGERY 05/16/2021 Exchange of a [employer] SQ-RX 1010 pulse generator with a [facility] SURG ANT SGMT PROC UNLISTED Right 05/03/2024 Dr. Hammond INSERTION OF IUD 01/11/2025 Mirena IUD REMOVAL [...] HOCM s/p ICD None Maternal Grandfather age 46-suddenly Heart Maternal Grandmother [place] age 72 Alcohol/Drug Paternal Grandfather ETOH Diabetes [...] (Src) 98 (Temporal) Resp 12 Ht 5' 8 (1.73m) Wt 160 lb 12.8 oz (72.9kg) [...] 518 QTC Calculation (Bazett) 432 Calculated P [place] 45 Calculated R [place] 32 Calculated T [place] 88 Impression MARKED SINUS BRADYCARDIA COMPLETE LEFT BUNDLE BRANCH BLOCK ABNORMAL ECG Confirmed by MD AUTUMN, HEBA ([id number]) on 10/04/2024 7:16:37 PM Recent Results (from the past 30180 hours) ECHO Collection Time: 10/22/22 9:32 AM [...] SIGNATURE: Latoya Ferrari APRN.CNP PATIENT NAME: Chavo Cavanaguh DATE: February 23, 2025 TIME: 9:30 AM PAGER/CONTACT #: [facility] Work Phone: 03-08-2025 History and physical note UPDATED HISTORY AND PHYSICAL EXAMINATION SERVICE DATE: 03/08/2025 SERVICE TIME: 11:26 Participation of a fellow, resident, medical student, or advanced practice provider student in performing the sensitive examination was discussed with the patient or authorized entry level marketing representative. The patient or authorized entry level marketing representative has agreed to proceed with the [...] the Electronic Medical Record . SIGNATURE: Maryana Zelaya MD PATIENT NAME: Chavo Cavanaugh DATE: March 08, 2025 TIME: 11:26 AM Source Note - Latoya Ferrari APRN.CNP - 02/23/2025 9:30 AM EDT Images from the original note were not included. [facility] Pre-Anesthesia Consultation [facility] HISTORY AND PHYSICAL EXAMINATION SERVICE DATE: 02/23/2025 SERVICE TIME: 9:59 AM PRIMARY CARE PHYSICIAN: Yissel Marcial APRN.WATER RESOURCE PROJECT MANAGER Assessment Patient has the following medical conditions which may affect vickie-operative course: ICD (implantable cardioverter-defibrillator) in place Assessment: s/p 2013 ICD placement and replaced 2022 EF 70%, Pt has 59% battery life remaining. Surgery is above umbilicus, NO pacemaker function programming necessary per CIED algorithm 02/07/2025 ICD device check View Cardiac Data and Report - Defibrillator [ID [id number]] Paroxysmal atrial fibrillation (HCC) Assessment: s/p ablation 2013, last known episode 06/2022 Taking metoprolol and sotalol and coumadin, received pre-op instructions to hold 5 days, pt verbalized understanding. Denies any recent palpitations Office Visit on 09/07/2024 Unihi-Wavvzelos-Mawgw (WPW) syndrome Assessment: s/p ablation 2013 Stable [...] have a large neck STOP-Bang Score: 0 [id number] Score: CHF history: Yes Stroke/TIA/thromboembolism history: No Diabetes history: No [id number] Score: I - PHYSICAL EVALUATION AIRWAY Patient [...] in this encounter. REASON FOR VISIT: Chavo Cavanaugh is a 44 year old female who is scheduled for * No surgery found * at the request of Dr. Maryana Zelaya for consultation. My final recommendation will be [...] time) CHIEF COMPLAINT: Pre-op exam HPI: Chavo Cavanaugh is a 44 year old seen for PAC due to scheduled above surgery because h/o marginal ulcer that complicated gastric bypass surgery. REVIEW OF SYSTEMS: General: No weight loss, malaise or fevers. Neurological: No history of TIA's, stroke, PAWN SHOP KEEPER tumor, impaired sensorium, hemiplegia, paraplegia or quadraplegia. [...] congenital heart defect, DVT/PE, hyperlipidemia, hypertension, recent IN, PTCA and PVD. GI: See HPI. S/p gastric bypass, c/b marginal ulcer : No history of dysuria, frequency or incontinence, stones or chronic kidney disease. No difficulty urinating, nocturia > 1 time per night or hematuria. 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 Cardioverted with 150j under sedation DEFIBRILLATOR SURGERY 02/24/2014 ICD, redo WPW & atrial fib ablation EPS: DEFIB. SURGERY 05/16/2021 Exchange of a [employer] SQ-RX 1010 pulse generator with a [facility] SURG ANT SGMT PROC UNLISTED Right 05/03/2024 Dr. Hammond INSERTION OF IUD 01/11/2025 Mirena IUD REMOVAL [...] HOCM s/p ICD None Maternal Grandfather age 46-suddenly Heart Maternal Grandmother [place] age 72 Alcohol/Drug Paternal Grandfather ETOH Diabetes [...] (Src) 98 (Temporal) Resp 12 Ht 5' 8 (1.73m) Wt 160 lb 12.8 oz (72.9kg) [...] 01/07/2021 6.0 04/27/2020 5.7 11/25/2019 5.6 HBA1C, [place] (%) Date Value 11/05/2011 5.4 Recent Results (from the past 8760 hours) ECG COMPLETE Collection Time: 09/07/24 8:54 AM Result Value Ventricular Rate 42 Atrial Rate 42 P-R Interval 140 QRS Duration 128 QT Interval 518 QTC Calculation (Bazett) 432 Calculated P [place] 45 Calculated R [place] 32 Calculated T [place] 88 Impression MARKED SINUS BRADYCARDIA COMPLETE LEFT BUNDLE BRANCH BLOCK ABNORMAL ECG Confirmed by MD AUTUMN, HEBA ([id number]) on 10/04/2024 7:16:37 PM Recent Results (from the past 12816 hours) ECHO Collection Time: 10/22/22 9:32 AM [...] SIGNATURE: Latoya Ferrari APRN.CNP PATIENT NAME: Chavo Cavanaugh DATE: February 23, 2025 TIME: 9:30 AM PAGER/CONTACT #: documented in this encounter [facility] 03-03-2025 Telephone encounter Note Stp, she has been off of warfarin since 02/28 for upcoming colonoscopy next Thu, prior to 03/02 INR pt was taking 7.5mg daily. Advised pt to take 10mg Wed and Thurs post colonoscopy and then resume 7.5mg daily. Advised pt to test INR 6/10. Will f/u at that time- pt requests calls after 3:30pm. Milla Douglas PharmD [facility] 03-03-2025 Miscellaneous Notes Stp, she has [...] Patient has procedure 03/08. Patient transferred to [facility] to discuss further. Bernardo Zamora (Inbound Call Center Agent) [facility] Ambulatory Pharmacy Anticoagulation Clinic Anticoagulation Episode Summary Anticoagulation Care Providers Provider Role Specialty Phone number Oneyda Recinos MD Referring Cardiology [phone] Chavo Cavanaugh is a 44 year old year old [...] CREAT 0.69 03/03/2024 No components found for: TBILI3 Lab Results Component Value Date ALT 17 [...] unspecified type (hcc) Paroxysmal atrial fibrillation (hcc) USP (current) use of anticoagulants Anticoagulation Episode Summary [...] Advised pt to Call Coumadin Clinic at [phone] to confirm dosing and follow-up Will attempt to call again next business day Milla Douglas [facility] Clinical Pharmacist, Pharmacy Anticoagulation Clinic Pharmacy Anticoagulation Clinic Pager: [phone]. PAC received faxed outside lab/home meter result for patient via mdINR from Date: 03/02 . Results have been scanned into patient's chart and are located under 'Scanned Documents'. Please note, may take up to 10 minutes for document to transfer from [employer] to [facility]. PT INR (no units) Date Value 03/02/2025 1.2 02/18/2025 1.5 01/19/2025 2.1 Maine Paz ([employer]) documented in this encounter [facility] 03-03-2025 Telephone encounter Note Patient called regarding upcoming procedure and dosing instructions. Patient stated she stopped warfarin per paperwork 02/28/2025. Patient has procedure 03/08. Patient transferred to [facility] to discuss further. Bernardo Zamora ([employer]) [facility] 03-03-2025 Telephone encounter Note [facility] Ambulatory Pharmacy Anticoagulation Clinic Anticoagulation Episode Summary Anticoagulation Care Providers Provider Role Specialty Phone number Oneyda Recinos MD Referring Cardiology [phone] Chaov Cavanaugh is a 44 year old year old [...] CREAT 0.69 03/03/2024 No components found for: TBILI3 Lab Results Component Value Date ALT 17 [...] unspecified type (hcc) Paroxysmal atrial fibrillation (hcc) USP (current) use of anticoagulants Anticoagulation Episode Summary [...] Advised pt to Call Coumadin Clinic at [phone] to confirm dosing and follow-up Will attempt to call again next business day Milla Douglas RPh Clinical Pharmacist, Pharmacy Anticoagulation Clinic Pharmacy Anticoagulation Clinic Pager: [phone]. [facility] 03-03-2025 Telephone encounter Note PAC received faxed outside lab/home meter result for patient via mdINR from Date: 03/02 . Results have been scanned into patient's chart and are located under 'Scanned Documents'. Please note, may take up to 10 minutes for document to transfer from [employer] to [employer]. PT INR (no units) Date Value 03/02/2025 1.2 02/18/2025 1.5 01/19/2025 2.1 Maine Paz ([employer]) [facility] 03-02-2025 Telephone encounter Note Patient returned call and went over notes below from Bertha Marcial NP with understanding. Aware rx sent to the pharmacy. [facility] 03-02-2025 Miscellaneous Notes Patient returned call and went over notes below from Bertha Marcial NP with understanding. Aware rx sent to the pharmacy. Left message for patient to return call and speak with a triage nurse Janelle Oconnell Ma Please let patient know that the Coumadin clinic said that they do not recommend holding warfarin/Coumadin for 2 or less simple extractions. I will send that note to the [place] [facility]. I will send a prescription for amoxicillin 4 tablets all at once 1 hour before her dental extraction. Just as a precaution for her implanted defibrillator. Sent to [employer] PAC is not able to authorize dental clearance. This must be done by the primary care team. Generally, guidelines recommend that warfarin does not need to be held for simple dental extractions of up to 2 teeth but holding anticoagulation is at the discretion of the patient's physician and the dentist performing the procedure. The summary statement from the [place] [employer] is as follows: There is general agreement that in most cases, treatment regimens with older anticoagulants (e.g., warfarin) and antiplatelet agents (e.g., clopidogrel, ticlopidine, prasugrel, ticagrelor, and/or aspirin) should not be altered before dental procedures. The risks of stopping or reducing these medication regimens (i.e., thromboembolism, stroke, IN) far outweigh the consequences of prolonged bleeding, which can be controlled with local measures. Evidence noted by the ADA includes Based on a literature review, a 2016 Clinical Practice Statement from the [place] [employer] determined that moderately invasive oral surgery (defined as uncomplicated tooth extraction) is safe with an INR of 3.5, with some experts stating that it is safe up to 4.0.17 A 2008 systematic review and meta-analysis by Shanon et al.44 found that although the risks of hemorrhage and thromboembolism are reduced at an INR range of 2 to 3, ratios moderately higher than this range appeared to be safe and more effective than subtherapeutic ratios. Reviewed above with GENIE Hadley. Advised that she can discuss with the patient's dentist and let PAC know if pt needs to hold warfarin or not. Patient's PCP, Leonie Marcial CNP, called and advised patient is having 2 teeth extracted and DDS wanted to hold warfarin. She stated she thought she'd reach out to PAC for our input as we manage patient's warfarin. PCP can be reached at [phone] to discuss what she should put on form for DDS. Maine Paz CPhT (Head Of Conservation) Pharmacy Anticoagulation Clinic documented in this encounter [facility] 03-02-2025 Telephone encounter Note Left message for patient to return call and speak with a triage nurse Janelle Oconnell Ma [facility] 03-02-2025 Telephone encounter Note Please let patient know that the Coumadin clinic said that they do not recommend holding warfarin/Coumadin for 2 or less simple extractions. I will send that note to the [place] [facility]. I will send a prescription for amoxicillin 4 tablets all at once 1 hour before her dental extraction. Just as a precaution for her implanted defibrillator. Sent to [employer] [facility] 03-02-2025 Telephone encounter Note PAC is [...] the procedure. The summary statement from the [place] [employer] is as follows: There is general agreement that in most cases, treatment regimens with older anticoagulants (e.g., warfarin) and antiplatelet agents (e.g., clopidogrel, ticlopidine, prasugrel, ticagrelor, and/or aspirin) should not be altered before dental procedures. The risks of stopping or reducing these medication regimens (i.e., thromboembolism, stroke, IN) far outweigh the consequences of prolonged bleeding, which can be controlled with local measures. Evidence noted by the ADA includes Based on a literature review, a 2016 Clinical Practice Statement from the [place] [employer] determined that moderately invasive oral surgery (defined as uncomplicated tooth extraction) is safe with an INR of 3.5, with some experts stating that it is safe up to 4.0.17 A 2008 systematic review and meta-analysis by Shanon et al.44 found that although the risks of hemorrhage and thromboembolism are reduced at an INR range of 2 to 3, ratios moderately higher than this range appeared to be safe and more effective than subtherapeutic ratios. Reviewed above with GENIE Hadley. Advised that she can discuss with the patient's dentist and let PAC know if pt needs to hold warfarin or not. [facility] 03-02-2025 Telephone encounter Note Patient's PCP, Leonie Marcial CNP, called and advised patient is having 2 teeth extracted and DDS wanted to hold warfarin. She stated she thought she'd reach out to PAC for our input as we manage patient's warfarin. PCP can be reached at [phone] to discuss what she should put on form for DDS. Maine Paz CPhT (Head Of Conservation) Pharmacy Anticoagulation Clinic [facility] 02-20-2025 Telephone encounter Note [facility] Ambulatory Pharmacy Anticoagulation Clinic Anticoagulation Episode Summary Anticoagulation Care Providers Provider Role Specialty Phone number Oneyda Recinos MD Referring Cardiology [phone] Chavo Cavanaugh is a 44 year old year old [...] CREAT 0.69 03/03/2024 No components found for: TBILI3 Lab Results Component Value Date ALT 17 [...] unspecified type (hcc) Paroxysmal atrial fibrillation (hcc) USP (current) use of anticoagulants Anticoagulation Episode Summary [...] Pharmacy Anticoagulation Clinic Pharmacy Anticoagulation Clinic Pager: [phone]. [facility] 02-20-2025 Miscellaneous Notes [facility] Ambulatory Pharmacy Anticoagulation Clinic Anticoagulation Episode Summary Anticoagulation Care Providers Provider Role Specialty Phone number Oneyda Recinos MD Referring Cardiology [phone] Chavo Cavanaugh is a 44 year old year old [...] CREAT 0.69 03/03/2024 No components found for: TBILI3 Lab Results Component Value Date ALT 17 [...] Pharmacy Anticoagulation Clinic Pharmacy Anticoagulation Clinic Pager: [phone]. PAC received faxed outside lab/home meter result for patient via mdINR from Date: 02/18 . Results have been scanned into patient's chart and are located under 'Scanned Documents'. Please note, may take up to 10 minutes for document to transfer [facility] to [facility]. PT INR (no units) Date Value 02/18/2025 1.5 01/19/2025 2.1 01/04/2025 1.3 [place] Paz ([employer]) documented in this encounter [facility] 02-20-2025 Telephone encounter Note PAC received faxed outside lab/home meter result for patient via mdINR from Date: 02/18 . Results have been scanned into patient's chart and are located under 'Scanned Documents'. Please note, may take up to 10 minutes for document to transfer [facility] to [facility]. PT INR (no units) Date Value 02/18/2025 1.5 01/19/2025 2.1 01/04/2025 1.3 Maine Paz ([employer]) [facility] 02-08-2025 Radiology Diagnostic study note [facility] Imaging Services [address], [place] [id number] Abdomen/Pelvis W IV Cont ONLY MR#: [id number] Acct: [id number] Name: CHAVO CAVANAUGH Rep #: [id number] : 1980 F [id number] From: Laisha Neil MD PCP: Yissel Marcial, PAWN SHOP KEEPER Status: REG ER Study:Abdomen/Pelvis W IV Cont ONLY Date of E xam: 02/08/25 Exam# [id number] Ordering Dr: Mirna Duffy DO PROCEDURE: ABDOMEN/PELVIS [...] with MRI of the liver. Reading Location: [facility] CC: MARLEN Marcial; Dr. Enriqueta Duffy DO ~ Social Services: Signed [facility] 02-08-2025 Note HNO ID: [id number] Author: ALEC BLAIR APRN.WATER RESOURCE PROJECT MANAGER Service: ? Author Type: Nurse Practitioner Type: Progress Notes Filed: 02/08/2025 08:07 Note Text: Chavo Cavanaugh is a 44 year old female S/P an IUD insertion 01/11/2025. Since that time, she has had no concerns of abdominal pain, pelvic pain, vaginal discharge, fever or chills. PHYSICAL EXAM: ABDOMEN: soft, non-tender, non-distended SPECULUM EXAM: external genitalia normal, normal Bartholin's glands, urethra, [place]'s glands, no vulvar lesions, no cervical lesions, [...] which included preparing to see the patient, [id number] patient care, completing clinical documentation, obtaining and/or reviewing separately obtained history, performing a medically appropriate examination, and counseling and educating the patient/family/caregiver. [facility] 02-08-2025 History of Present illness Narrative Chavo Cavanaugh is a 44 year old female S/P an IUD insertion 01/11/2025. Since that time, she has had no concerns of abdominal pain, pelvic pain, vaginal discharge, fever or chills. PHYSICAL EXAM: ABDOMEN: soft, non-tender, non-distended SPECULUM EXAM: external genitalia normal, normal Bartholin's glands, urethra, [place]'s glands, no vulvar lesions, no cervical lesions, [...] which included preparing to see the patient, [id number] patient care, completing clinical documentation, obtaining and/or reviewing separately obtained history, performing a medically appropriate examination, and counseling and educating the patient/family/caregiver. documented in this encounter [facility] 02-07-2025 Telephone encounter Note Dear, Dr. Josue Recinos, your patient, Chavo Cavanaugh is scheduled for EGD with Dr. Zelaya on 03/08/2025. History of atrial fibrillation and currently on Coumadin (Warfarin). Please advise if Chavo can hold Coumadin 5 days prior to the procedure per anesthesia guidelines? Thank you, Dave Walters PACC RN [facility] 02-07-2025 Miscellaneous Notes Dear, Dr. Josue Recinos, your patient, Chavo Cavanaugh is scheduled for EGD with Dr. Zelaya on 03/08/2025. History of atrial fibrillation and currently on Coumadin (Warfarin). Please advise if Chavo can hold Coumadin 5 days prior to the procedure per anesthesia guidelines? Thank you, Dave Walters PACC RN documented in this encounter [facility] 02-07-2025 Note HNO ID: [id number] Author: TIFFANY WALTERS RN Service: ? Author Type: Registered Nurse Type: Progress Notes Filed: 02/09/2025 07:05 Note Text: RN Pre Visit Questionnaire for upcoming PACC appointment PROCEDURE : EGD SURGEON : Dr. Flaquita Zelaya PROCEDURE DATE : 03/08/2025 PACC APPT : 02/23/2025 Prepared for surgery: Anticoagulant recommendations received: Yes RN Pre Visit Questionnaire completed by [facility] chart review and completed with patient. Do you see a tele rn, tax associate, collections professional or other specialist within or outside of [facility]? SPECIALISTS: CARDIOLOGY: Manager Imaging Dr. Jose R Hurley, Last office visit greater than a year. CARDIOLOGY/EP: Bow Tacker Office Visit with Oneyda Recinos MD (09/07/2024) PRIMARY CARE PHYSICIAN: Office Visit with Yissel Marcial APRN.CNP (01/12/2025) TAXATION ECONOMIST: Office Visit with Alec Blair APRN.CNP (01/11/2025) [...] done 11/08/2024; in person 09/07/2024, Type of device/Dispatcher Clerk: [employer] S-ICD A219, Battery life-62%, no shocks; [...] SIGNATURE: Tiffany Walters RN PATIENT NAME: Chavo Cavanaugh DATE: February 07, 2025 TIME: 12:06 PM PAGER/CONTACT PHONE: [facility] 02-07-2025 History of Present illness Narrative RN Pre Visit Questionnaire for upcoming PACC appointment PROCEDURE : EGD SURGEON : Dr. Flaquita Zelaya PROCEDURE DATE : 03/08/2025 PACC APPT : 02/23/2025 Prepared for surgery: Anticoagulant recommendations received: Yes RN Pre Visit Questionnaire completed by [facility] chart review and completed with patient. Do you see a tele rn, tax associate, collections professional or other specialist within or outside of [facility]? SPECIALISTS: CARDIOLOGY: Manager Imaging Dr. Jose R Hurley, Last office visit greater than a year. CARDIOLOGY/EP: Bow Tacker Office Visit with Oneyda Recinos MD (09/07/2024) PRIMARY CARE PHYSICIAN: Office Visit with Yissel Marcial APRN.CNP (01/12/2025) TAXATION ECONOMIST: Office Visit with Alec Blair APRN.CNP (01/11/2025) [...] done 11/08/2024; in person 09/07/2024, Type of device/Dispatcher Clerk: [employer] S-ICD A219, Battery life-62%, no shocks; Location [...] SIGNATURE: Tiffany Walters RN PATIENT NAME: Chavo Cavanaugh DATE: February 07, 2025 TIME: 12:06 PM PAGER/CONTACT PHONE: documented in this encounter [facility] 01-23-2025 Telephone encounter Note Called and spoke to pt. She confirmed received Pharmacy Anticoagulation Clinic msg and has been on 7.5mg daily for last week and a half. Confirmed will check INR . Rosa Moore RPh [facility] Work Phone: 01-23-2025 Miscellaneous Notes Called and spoke to pt. She confirmed received Pharmacy Anticoagulation Clinic msg and has been on 7.5mg daily for last week and a half. Confirmed will check INR . Rosa Moore RPh [facility] Ambulatory Pharmacy Anticoagulation Clinic Anticoagulation Episode Summary Anticoagulation Care Providers Provider Role Specialty Phone number Oneyda Recinos MD Referring Cardiology [phone] Chavo Cavanaugh is a 44 year old year old [...] unspecified type (hcc) Paroxysmal atrial fibrillation (hcc) USP (current) use of anticoagulants Anticoagulation Episode Summary Current INR goal: 2.0-3.0 Assessment: INR result of 2.1 is therapeutic Plan: Current Warfarin Dosing As of 01/20/2025 Full warfarin instructions: 7.5 mg every day Left voice message And sent a [employer] message Advised patient to continue current weekly dose as noted above Next home INR check scheduled on 01/26 Will call back again Thursday to ensure pt received dosing information. Milla Douglas RP Clinical Pharmacist, Pharmacy Anticoagulation Clinic Pharmacy Anticoagulation Clinic Pager: [phone]. Pharmacy Anticoagulation Clinic received a fax from [facility] for the patient's INR result on 01/19. Fax will be sent to the patient's scanned documents. PT INR (no units) Date Value 01/19/2025 2.1 01/04/2025 1.3 01/01/2025 1.2 Bozena Calloway RN Pharmacy Anticoagulation Clinic documented in this encounter [facility] 01-20-2025 Telephone encounter Note [facility] Ambulatory Pharmacy Anticoagulation Clinic Anticoagulation Episode Summary Anticoagulation Care Providers Provider Role Specialty Phone number Oneyda Recinos MD Referring Cardiology [phone] Chavo Cavanaugh is a 44 year old year old [...] day Left voice message And sent a [employer] message Advised patient to continue current weekly dose as noted above Next home INR check scheduled on 01/26 Will call back again Thursday to ensure pt received dosing information. Milla Douglas RPh Clinical Pharmacist, Pharmacy Anticoagulation Clinic Pharmacy Anticoagulation Clinic Pager: [phone]. [facility] 01-20-2025 Telephone encounter Note Pharmacy Anticoagulation Clinic received a fax from [employer] for the patient's INR result on 01/19. Fax will be sent to the patient's scanned documents. PT INR (no units) Date Value 01/19/2025 2.1 01/04/2025 1.3 01/01/2025 1.2 Bozena Calloway, LALI Pharmacy Anticoagulation Clinic [facility] 01-13-2025 Progress note Formatting of t his note might be different from the original. Potassium has normalized. Kidney function normal, blood counts normal. [facility] 01-13-2025 Miscellaneous Notes Potassium has normalized. Kidney function normal, blood counts normal. documented in this encounter [facility] 01-12-2025 Instructions Yissel Marcial APRN.CNP - 01/12/2025 10:08 AM EDT 1) check labs today 2) follow up in 6 months- physical documented in this encounter [facility] 01-12-2025 Note HNO ID: [id number] Author: YISSEL MARCIAL APRN.CNP Service: ? Author Type: Nurse Practitioner Type: Progress Notes Filed: 01/12/2025 10:09 Note Text: This is a 44 year old female who presents today with: Patient presents with: 6 Month Exam HISTORY OF PRESENT ILLNESS: Chavo Cavanaugh is a 44 year old female. 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 Cardioverted with 150j under sedation DEFIBRILLATOR SURGERY 02/24/2014 ICD, redo WPW AND atrial fib ablation EPS: DEFIB. SURGERY 05/16/2021 Exchange of a [employer] SQ-RX 1010 pulse generator with a [employer] EYE SURG ANT SGMT PROC UNLISTED Right 05/03/2024 Dr. Hammond INSERTION OF IUD 01/11/2025 Mirena IUD REMOVAL [...] HOCM s/p ICD None Maternal Grandfather age 46-suddenly Heart Maternal Grandmother [place] age 72 Alcohol/Drug Paternal Grandfather ETOH Diabetes [...] reviewed. Constitutional: Appe (more content not included)... [facility] 01-12-2025 History of Present illness Narrative This is a 44 year old female who presents today with: Patient presents with: 6 Month Exam HISTORY OF PRESENT ILLNESS: Chavo Cavanaugh is a 44 year old female. 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 Cardioverted with 150j under sedation DEFIBRILLATOR SURGERY 02/24/2014 ICD, redo WPW & atrial fib ablation EPS: DEFIB. SURGERY 05/16/2021 Exchange of a [employer] SQ-RX 1010 pulse generator with a BOSTON EYE SURG ANT SGMT PROC UNLISTED Right 05/03/2024 Dr. Hammond INSERTION OF IUD 01/11/2025 Mirena IUD REMOVAL [...] HOCM s/p ICD None Maternal Grandfather age 46-suddenly Heart Maternal Grandmother [place] age 72 Alcohol/Drug Paternal Grandfather ETOH Diabetes [...] with cardiology - COMPREHENSIVE METABOLIC PANEL 4. USP (current) use of anticoagulants - ICD9: V58.61, [...] or as needed for worsening/no improvement. Yissel Marcial APRN.CNP documented in this encounter [facility] 01-11-2025 Note HNO ID: [id number] Author: TRI HAMMOND MD Service: ? Author Type: Physician Type: [...] others. I have seen and examined Chavo Cavanaugh. I have discussed the case and the management of this patient's care with the Resident/Fellow, if applicable. I also have reviewed and agree with the assessment and plan as stated above and agree with all of its relevant components. Tri Hammond MD [facility] 01-11-2025 History of Present illness Narrative Assessment [...] others. I have seen and examined Chavo Cavanaugh. I have discussed the case and the management of this patient's care with the Resident/Fellow, if applicable. I also have reviewed and agree with the assessment and plan as stated above and agree with all of its relevant components. Tri Hammond MD documented in this encounter [facility] 01-11-2025 Note HNO ID: [id number] Author: ALEC BLAIR APRN.WATER RESOURCE PROJECT MANAGER Service: ? Author Type: Nurse Practitioner Type: [...] IUD source: office provided IUD lot #: [id number] Exp date: 01/2027 UNIVERSAL PROTOCOL / SAFETY [...] up in one month. Alec Blair APRN.GENIE [facility] 01-11-2025 History of Present illness Narrative Chavo [...] Contraception plans: Mirena IUD Alec Blair APRN.CNP Chavo presents today for IUD insertion for contraception. Patient's last menstrual period was 01/06/2012 (approximate). GC/chlamydia: Not done: no risk factors and/or patient declines screening test: n/a Side effects including irregular bleeding were discussed with the patient. The patient understands that it should be removed in 8 years or sooner if the patient desires a . IUD source: office provided IUD lot #: [id number] Exp date: 01/2027 UNIVERSAL PROTOCOL / SAFETY [...] Follow up in one month. Alec Blair APRN.CNP documented in this encounter [facility] 01-11-2025 Instructions Jeannette Chun LPN - [...] contact the office. documented in this encounter [facility] 01-09-2025 Telephone encounter Note Called pt [...] Heart Failure, Heart Transplant, and Anticoagulation [employer] January 09, 2025 [facility] Work Phone: 01-09-2025 Miscellaneous Notes Called [...] Heart Failure, Heart Transplant, and Anticoagulation [employer] January 09, 2025 Patient returned the call [...] her after 3:30pm moving forward. Bernardo Zamora (Inbound Call Center Agent) Called pt and LVM to call Pharmacy Anticoagulation Clinic back. Noted in 01/02 and Pharmacy Anticoagulation Clinic has been unable to reach pt. Rosa Moore PharmD Heart Failure, Heart Transplant, and Anticoagulation [employer] January 09, 2025 The patient was called to discuss recent INR test results. A voice message was left on patient's Cell phone voice mail. The patient was advised to call the Coumadin Clinic at [phone] and continue current warfarin dose. PT INR (no units) Date Value 01/04/2025 1.3 01/01/2025 1.2 12/07/2024 1.2 Lora Raza PharmD,CACP Tony calling to report the patient's INR result 01/04. Noted result has been addressed below. Bozena Calloway RN Pharmacy Anticoagulation Clinic [facility] Anticoagulation Episode Summary Anticoagulation Care Providers Provider Role Specialty Phone number Oneyda Recinos MD Referring Cardiology [phone] Chavo Cavanaugh is a 44 year old year old [...] unspecified type (hcc) Paroxysmal atrial fibrillation (hcc) USP (current) use of anticoagulants Anticoagulation Episode Summary [...] Advised pt to Call Coumadin Clinic at [phone] BILLY, we do not know if pt took increased doses of warfarin provided earlier this week, or what dosing she has been taking since. We need to talk to the patient. Brought this up to referring provider's attention in 01/02 note PAC will f/u again tomorrow Milla Douglas RPh Clinical Pharmacist, Pharmacy Anticoagulation Clinic [facility] Pager: [phone]. PAC received faxed outside lab/home meter result for patient via [facility] from Date: 01/04 . Results have been scanned into patient's chart and are located under 'Scanned Documents'. Please note, may take up to 10 minutes for document to transfer from [employer] to [facility]. PT INR (no units) Date Value 01/04/2025 1.3 01/01/2025 1.2 12/07/2024 1.2 Maine Paz ([employer]) documented in this encounter [facility] 01-09-2025 Telephone encounter Note Patient returned [...] her after 3:30pm moving forward. Bernardo Zamora ([employer]) [facility] 01-09-2025 Telephone encounter Note Called pt and LVM to call Pharmacy Anticoagulation Clinic back. Noted in 01/02 and Pharmacy Anticoagulation Clinic has been unable to reach pt. Rosa Moore PharmD Heart Failure, Heart Transplant, and Anticoagulation [employer] January 09, 2025 [facility] 01-06-2025 Telephone encounter Note The patient was called to discuss recent INR test results. A voice message was left on patient's Cell phone voice mail. The patient was advised to call the Coumadin Clinic at [phone] and continue current warfarin dose. PT INR (no units) Date Value 01/04/2025 1.3 01/01/2025 1.2 12/07/2024 1.2 Lora Raza PharmD,CACP [facility] 01-05-2025 Telephone encounter Note inr calling to report the patient's INR result 01/04. Noted result has been addressed below. Bozena Calloway RN Pharmacy Anticoagulation Clinic [facility] 01-05-2025 Telephone encounter Note [facility]tico[facility] Anticoagulation Episode Summary Anticoagulation Care Providers Provider Role Specialty Phone number Oneyda Recinos MD Referring Cardiology [phone] Chavo Cavanaugh is a 44 year old year old [...] Advised pt to Call Coumadin Clinic at [phone] BILLY, we do not know if pt took increased doses of warfarin provided earlier this week, or what dosing she has been taking since. We need to talk to the patient. Brought this up to referring provider's attention in 01/02 note PAC will f/u again tomorrow Milla Douglas RPh Clinical Pharmacist, Pharmacy Anticoagulation Clinic Pharmacy [facility] Pager: [phone]. [facility] 01-04-2025 Telephone encounter Note PAC received faxed outside lab/home meter result for patient via mdINR from Date: 01/04 . Results have been scanned into patient's chart and are located under 'Scanned Documents'. Please note, may take up to 10 minutes for document to transfer from [employer] to [employer]. PT INR (no units) Date Value 01/04/2025 1.3 01/01/2025 1.2 12/07/2024 1.2 [place] Paz ([employer]) [facility] 01-02-2025 Telephone encounter Note [facility]tico[facility] Anticoagulation Episode Summary Anticoagulation Care Providers Provider Role Specialty Phone number Oneyda Recinos MD Referring Cardiology [phone] Chavo Cavanaugh is a 44 year old year old [...] unspecified type (hcc) Paroxysmal atrial fibrillation (hcc) USP (current) use of anticoagulants Anticoagulation Episode Summary [...] Left voice message - Left and sent [facility] ms. Given INR 1.2 for second time in [...] Pharmacy Anticoagulation Clinic Pharmacy [facility] Pager: [phone]. [facility] 01-02-2025 Miscellaneous Notes [facility] Anticoagulation Episode Summary Anticoagulation Care Providers Provider Role Specialty Phone number Oneyda Recinos MD Referring Cardiology [phone] Chavo Cavanaugh is a 44 year old year old [...] Left voice message - [facility] and sent [facility] msg. Given INR 1.2 for second time [...] Pharmacy Anticoagulation Clinic Pharm[facility] Pager: [phone]. Received fax from [facility] with INR results for patient. Patient tested on 01/01/2025 and the INR result was 1.2. Fax can be found under scanned documents as miscellaneous lab result. It may take a few minutes to transfer from [employer]. PT INR (no units) Date Value 01/01/2025 1.2 12/07/2024 1.2 11/02/2024 1.8 Bernardo Zamora, Head Of Conservation (scutcher tender) [facility]acy [facility]tico[facility] Clinic documented in this encounter [facility] 01-02-2025 Telephone encounter Note Received fax from [employer] with INR results for patient. Patient tested on 01/01/2025 and the INR result was 1.2. Fax can be found under scanned documents as miscellaneous lab result. It may take a few minutes to transfer from [employer]. PT INR (no units) Date Value 01/01/2025 1.2 12/07/2024 1.2 11/02/2024 1.8 Bernardo Zamora, Head Of Conservation (scutcher tender) [facility]tico[facility] 01-01-2025 Telephone encounter Note Received after hour call from INR managing service. Patient's home INR was 1.2. Patient was called but phone went to voicemail. I left a message asking her to call our office for further guidance. Matt Chamberlain MD Fellow Cardiac Electrophysiology and Pacing [facility] Work Phone: 01-01-2025 Miscellaneous Notes Received after hour call from INR managing service. Patient's home INR was 1.2. Patient was called but phone went to voicemail. I left a message asking her to call our office for further guidance. Matt Chamberlain MD Fellow Cardiac Electrophysiology and Pacing documented in this encounter [facility] 12-12-2024 Telephone encounter Note 3rd attempt to reach pt and left VM to call Pharmacy Anticoagulation Clinic back. Left VM INR due Thursday 12/14. Will move follow up to Thursday as unable to reach pt x3. Rosa Moore PharmD Heart Failure, Heart Transplant, and Anticoagulation [employer] December 12, 2024 [facility] Work Phone: 12-12-2024 Miscellaneous Notes 3rd attempt to reach pt and left VM to call Pharmacy Anticoagulation Clinic back. Left VM INR due Thursday 12/14. Will move follow up to Thursday as unable to reach pt x3. Rosa Moore PharmD Heart Failure, Heart Transplant, and Anticoagulation [employer] December 12, 2024 Called pt and left another vmx, reminding of yesterday's dose and to continue regular weekly dose now. Advised pt to Call Coumadin Clinic at [phone] to discuss dosing further Milla Douglas PharmD [facility]tico[facility] Anticoagulation Episode Summary Anticoagulation Care Providers Provider Role Specialty Phone number Oneyda Recinos MD Referring Cardiology [phone] Chavo Cavanaugh is a 44 year old year old [...] 20mg x1 today Call Coumadin Clinic at [phone] to discuss further dosing and f/u Milla Douglas RPh Clinical Pharmacist, Pharmacy Anticoagulation Clinic Pharmacy [facility] Pager: [phone]. Received fax from [facility] with INR results for patient. Patient tested on 12/07/2024 and the INR result was 1.2. Fax can be found under scanned documents as miscellaneous lab result. It may take a few minutes to transfer from [employer]. PT INR (no units) Date Value 12/07/2024 1.2 11/02/2024 1.8 10/05/2024 1.5 Bernardo Zamora, Head Of Conservation (scutcher tender) [facility]acy [facility] documented in this encounter [facility] 12-09-2024 Telephone encounter Note Called pt and left another vmx, reminding of yesterday's dose and to continue regular weekly dose now. Advised pt to Call Coumadin Clinic at [phone] to discuss dosing further Milla Douglas PharmD [facility] 12-09-2024 Telephone encounter Note Refill pending for Cyclosporine. Samira Lyons December 09, 2024 3:14 PM [facility] 12-09-2024 Miscellaneous Notes Refill pending for Cyclosporine. Samira Lyons December 09, 2024 3:14 PM documented in this encounter [facility] 12-08-2024 Telephone encounter Note [facility] Anticoagulation [facility] Anticoagulation Episode Summary Anticoagulation Care Providers Provider Role Specialty Phone number Oneyda Recinos MD Referring Cardiology [phone] Chavo Cavanaugh is a 44 year old year old [...] unspecified type (hcc) Paroxysmal atrial fibrillation (hcc) USP (current) use of anticoagulants Anticoagulation Episode Summary [...] 20mg x1 today Call Coumadin Clinic at [phone] to discuss further dosing and f/u Milla Douglas RPh Clinical Pharmacist, Pharmacy Anticoagulation Clinic Pharmacy Anticoagulation Clinic Pager: [phone]. [facility] 12-08-2024 Telephone encounter Note Received fax from [facility] with INR results for patient. Patient tested on 12/07/2024 and the INR result was 1.2. Fax can be found under scanned documents as miscellaneous lab result. It may take a few minutes to transfer from [employer]. PT INR (no units) Date Value 12/07/2024 1.2 11/02/2024 1.8 10/05/2024 1.5 Bernardo Zamora Head Of Conservation (scutcher tender) Pharmacy Anticoagulation Clinic [facility] 11-11-[address] Recinos, The Pharmacy Anticoagulation Clinic is in need of PAF that requires MD signature to update patient's home INR meter account with INR. The PAF can be found under the scanned documents tab in the patient's chart dated 11/04/2024. The PAF may be printed from there and once signed can be faxed back to the Pharmacy Anticoagulation Clinic at [phone]. Please let me know if you have any questions. Thank you, Bernardo Zamora, Head Of Conservation (scutcher tender) Pharmacy Anticoagulation Clinic [facility] 11-11-[address] Recinos, The [...] back to the Pharmacy Anticoagulation Clinic at [phone]. Please let me know if you have any questions. Thank you, Bernardo Zamora, Head Of Conservation (scutcher tender) Pharmacy Antico[facility] Dr. Recinos, The Pharmacy Anticoagulation Clinic is in need of PAF that requires MD signature to update patient's home INR meter account with [facility]. The PAF can be found under the scanned documents tab in the patient's chart dated today. The PAF may be printed from there and once signed can be faxed back to the Pharmacy Anticoagulation Clinic at [phone]. Please let me know if you have any questions. Thank you, Bernardo Zamora Head Of Conservation (scutcher tender) Pharmacy Anticoagulation Clinic documented in this encounter [facility] 11-04-[address] Recinos, [...] back to the Pharmacy Anticoagulation Clinic at [phone]. Please let me know if you have any questions. Thank you, Bernardo Zamora Head Of Conservation (scutcher tender) Pharmacy Anticoagulation [facility] 11-03-2024 Telephone encounter Note [facility] Antico[facility] Anticoagulation Episode Summary Anticoagulation Care Providers Provider Role Specialty Phone number Oneyda Recinos MD Referring Cardiology [phone] Chavo Cavanaugh is a 44 year old year old [...] Advised pt to Call Coumadin Clinic at [phone] to confirm dosing and schedule follow-up Patient advised to call the PAC with any medication changes, bleeding/bruising concerns, recent changes in vitamin k consumption, if any procedures are coming up, if they have been ill or in the hospital, and if they have missed any doses of warfarin. Milla Douglas RPh Clinical Pharmacist, Pharmacy Anticoagulation Clinic Pharmacy Anticoagulation Clinic Pager: [phone]. [facility] 11-03-2024 Miscellaneous Notes [facility] Antico[facility] Anticoagulation Episode Summary Anticoagulation Care Providers Provider Role Specialty Phone number Oneyda Recinos MD Referring Cardiology [phone] Chavo Cavanaugh is a 44 year old year old [...] unspecified type (hcc) Paroxysmal atrial fibrillation (hcc) USP (current) use of anticoagulants Anticoagulation Episode Summary [...] Advised pt to Call Coumadin Clinic at [phone] to confirm dosing and schedule follow-up Patient advised to call the PAC with any medication changes, bleeding/bruising concerns, recent changes in vitamin k consumption, if any procedures are coming up, if they have been ill or in the hospital, and if they have missed any doses of warfarin. Milla Douglas RPh Clinical Pharmacist, Pharmacy Anticoagulation Clinic Pharmacy Anticoagulation Clinic Pager: [phone]. PAC received faxed outside lab/home meter result for patient via mdINR from Date: 11/02 . Results have been scanned into patient's chart and are located under 'Scanned Documents'. Please note, may take up to 10 minutes for document to transfer from [employer] to [employer]. PT INR (no units) Date Value 11/02/2024 1.8 10/05/2024 1.5 09/14/2024 1.2 [place] Paz ([employer]) documented in this encounter [facility] 11-03-2024 Telephone encounter Note PAC received faxed outside lab/home meter result for patient via mdINR from Date: 11/02 . Results have been scanned into patient's chart and are located under 'Scanned Documents'. Please note, may take up to 10 minutes for document to transfer from [employer] to [employer]. PT INR (no units) Date Value 11/02/2024 1.8 10/05/2024 1.5 09/14/2024 1.2 [place] Paz ([employer]) [facility] 11-03-2024 History of Present illness Narrative Radiology Service Progress Note PATIENT NAME: Chavo Cavanaugh DATE OF SERVICE: November 03, 2024 TIME: [...] PATIENT PRESENTS WITH AN IMPLANTABLE OR ATTACHED IMPLEMENTATION ANALYST: No RADIOLOGY DEPARTMENT: Mammography PERIPHERAL IV DATA: Not applicable SIGNED BY: Mak Boyd November 03, 2024 8:25 AM documented in this encounter [facility] 11-03-2024 Note HNO ID: [id number] Author: ELISE MIR Mammo Tech Service: ? Author Type: Supervisor Pressing Department Type: Progress Notes Filed: 11/03/2024 08:25 Note Text: Radiology Service Progress Note PATIENT NAME: Chavo Cavanaugh DATE OF SERVICE: November 03, 2024 TIME: [...] PATIENT PRESENTS WITH AN IMPLANTABLE OR ATTACHED IMPLEMENTATION ANALYST: No RADIOLOGY DEPARTMENT: Mammography PERIPHERAL IV DATA: Not applicable SIGNED BY: Santos Boydluis antonio Revver November 03, 2024 8:25 AM [facility] 10-24-2024 Telephone encounter Note PAC received an updated referral for the patient. PT INR (no units) Date Value 10/05/2024 1.5 09/14/2024 1.2 07/28/2024 2.1 Updated anticoag navigator. Bozena Calloway RN Pharmacy Anticoagulation Clinic [facility] 10-24-2024 Miscellaneous Notes PAC received an updated referral for the patient. PT INR (no units) Date Value 10/05/2024 1.5 09/14/2024 1.2 07/28/2024 2.1 Updated anticoag navigator. Bozena Calloway RN Pharmacy Anticoagulation Clinic Chavo Moody [id number] was originally referred to the Pharmacy Anticoagulation [...] Clinic Pharm if you are agreeable (order #[id number]). Diagnosis:Atrial Fibrillation INR Range: 2 to 3 Duration: Indefinite Please feel free to contact me with any questions or concerns. Thank you, Milla Douglas RPh documented in this encounter [facility] 10-13-2024 Telephone encounter Note Chavo Moody [id number] was originally referred to the Pharmacy Anticoagulation [...] Clinic Pharm if you are agreeable (order #[id number]). Diagnosis:Atrial Fibrillation INR Range: 2 to 3 Duration: Indefinite Please feel free to contact me with any questions or concerns. Thank you, Milla Douglas RPh [facility] 09-15-2024 Telephone encounter Note [facility] Anticoagulation [facility] Anticoagulation Episode Summary Anticoagulation Care Providers Provider Role Specialty Phone number Jayjay Ortiz MD Referring Cardiology [phone] Chavo Cavanaugh is a 44 year old year old [...] unspecified type (hcc) Paroxysmal atrial fibrillation (hcc) USP (current) use of anticoagulants Anticoagulation Episode Summary Current INR goal: 2.0-3.0 Assessment: INR result of 1.2 is SUBtherapeutic due to: unknown cause - did not speak to patient Plan: Current Warfarin Dosing As of 09/14/2024 Full warfarin instructions: 09/14: 10 mg; 09/15: 12.5 mg; Otherwise 10 mg every Mon, Diane; 7.5 mg all other days Left voice message And sent mychart message Advised patient to increase dose for 2 days only then resume weekly regimen Next home INR check scheduled on 09/20/2024 Advised pt to Call Coumadin Clinic at [phone] to confirm dosing and follow-up Patient advised to call the PAC with any medication changes, bleeding/bruising concerns, recent changes in vitamin k consumption, if any procedures are coming up, if they have been ill or in the hospital, and if they have missed any doses of warfarin. Milla Douglas RPh Clinical Pharmacist, Pharmacy Anticoagulation Clinic Pharmacy Anticoagulation Clinic Pager: [phone]. [facility] 09-15-2024 Miscellaneous Notes [facility] Anticoagulation [facility] Anticoagulation Episode Summary Anticoagulation Care Providers Provider Role Specialty Phone number Jayjay Ortiz MD Referring Cardiology [phone] Chavo Cavanaugh is a 44 year old year old [...] unspecified type (hcc) Paroxysmal atrial fibrillation (hcc) USP (current) use of anticoagulants Anticoagulation Episode Summary Current INR goal: 2.0-3.0 Assessment: INR result of 1.2 is SUBtherapeutic due to: unknown cause - did not speak to patient Plan: Current Warfarin Dosing As of 09/14/2024 Full warfarin instructions: 09/14: 10 mg; 09/15: 12.5 mg; Otherwise 10 mg every Mon, Diane; 7.5 mg all other days Left voice message And sent [employer] message Advised patient to increase dose for 2 days only then resume weekly regimen Next home INR check scheduled on 09/20/2024 Advised pt to Call Coumadin Clinic at [phone] to confirm dosing and follow-up Patient advised to call the PAC with any medication changes, bleeding/bruising concerns, recent changes in vitamin k consumption, if any procedures are coming up, if they have been ill or in the hospital, and if they have missed any doses of warfarin. Milla Douglas RPh Clinical Pharmacist, Pharmacy Anticoagulation Clinic Pharmacy Anticoagulation Clinic Pager: [phone]. [facility] Ambulatory Pharmacy Anticoagulation Clinic Anticoagulation Episode Summary Anticoagulation Care Providers Provider Role Specialty Phone number Jayjay Ortiz MD Referring Cardiology [phone] Chavo Cavanaugh is a 44 year old year old [...] unspecified type (hcc) Paroxysmal atrial fibrillation (hcc) USP (current) use of anticoagulants Anticoagulation Episode Summary [...] 10mg today and Call Coumadin Clinic at [phone] [facility] to discuss recent dosing of warfarin, what may have caused INR result, etc Will f/u again tomorrow Milla Douglas [facility] Clinical Pharmacist, Pharmacy Anticoagulation Clinic Pharmacy Anticoagulation Clinic Pager: [phone]. Received fax from [facility] with INR results for patient. Patient tested on 09/14/2024 and the INR result was 1.2. Fax can be found under scanned documents as miscellaneous lab result. [facility] PT INR (no units) Date Value 09/14/2024 1.2 07/28/2024 2.1 07/20/2024 2.7 Patient removed from discharge list. Bernardo Zamora, Head Of Conservation (scutcher tender) Pharmacy Anticoagulation Clinic Paged by INR 09/14 at 7am. Pt's INR was 1.2 at 6:02am today. documented in this encounter [facility] 09-14-2024 Telephone encounter Note [facility] Ambulatory Pharmacy Anticoagulation Clinic Anticoagulation Episode Summary Anticoagulation Care Providers Provider Role Specialty Phone number Jayjay Ortiz MD Referring Cardiology [phone] Chavo Cavanaugh is a 44 year old year old [...] unspecified type (hcc) Paroxysmal atrial fibrillation (hcc) USP (current) use of anticoagulants Anticoagulation Episode Summary [...] 10mg today and Call Coumadin Clinic at [phone] [facility] to discuss recent dosing of warfarin, what may have caused INR result, etc Will f/u again tomorrow Milla Douglas RPh Clinical Pharmacist, Pharmacy Anticoagulation Clinic Pharmacy Anticoagulation Clinic Pager: [phone]. [facility] 09-14-2024 Telephone encounter Note Received fax from [facility] with INR results for patient. Patient tested on 09/14/2024 and the INR result was 1.2. Fax can be found under scanned documents as miscellaneous lab result. It may take a few minutes to transfer from [employer]. PT INR (no units) Date Value 09/14/2024 1.2 07/28/2024 2.1 07/20/2024 2.7 Patient removed from discharge list. Bernardo Zamora, Head Of Conservation (scutcher tender) Pharmacy Anticoagulation Clinic [facility] 09-14-2024 Telephone encounter Note Paged by MD MARTINEZ 09/14 at 7am. Pt's INR was 1.2 at 6:02am today. [facility] 09-07-2024 History of Present illness Narrative Images from the original note were not included. [facility] Department of Cardiovascular Medicine SECTION OF CARDIAC PACING and ELECTROPHYSIOLOGY OUTPATIENT VISIT DATE September 07, 2024 OUTPATIENT VISIT TYPE Established CHIEF COMPLAINT: AF IMPRESSION/PLAN: Chavo Cavanaugh is a very pleasant female patient with [...] develops symptoms. 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 This note was created using computerized pharm tech software and may therefore include some pharm tech errors including errors in gender and inappropriate words or phrases. I reviewed old records, obtained relevant HPI and PMH from the pt, examined the patient and created the above report. Zohreh Briones RN September 07, 2024 Note to: Primary Care Physician: Edd Palma documented in this encounter [facility] 09-07-2024 Note HNO ID: [id number] Author: ONEYDA RECINOS MD Service: ? Author Type: Physician Type: Progress Notes Filed: 09/12/2024 17:19 Note Text: [facility] Department of Cardiovascular Medicine SECTION OF CARDIAC PACING and ELECTROPHYSIOLOGY OUTPATIENT VISIT DATE September 07, 2024 OUTPATIENT VISIT TYPE Established CHIEF COMPLAINT: AF IMPRESSION/PLAN: Chavo Cavanaugh is a very pleasant female patient with [...] develops symptoms. 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 Equally 7.5 mg Daily cyanocobalamin (VITAMIN B-12) 1,000 mcg tab Take 1 tablet by mouth once daily. multivitamin tablet Take 1 tablet by mouth once daily. calcium carbonate (TUMS) 500 mg chew (more content not included)... [facility] 08-25-2024 Instructions Alec Blair APRN.WATER RESOURCE PROJECT MANAGER - 08/25/2024 7:58 AM EST Images from the original note were not included. *Revaree is a NAMS recommended, leading selling vaginal insert for the relief of symptoms of vaginal atrophy and the rastafari of the vagina's epithelial lining and pH -- hormone free. In [id number] clinical trials, Revaree performed as well as [...] (no maximum interval). documented in this encounter [facility] 08-25-2024 Note HNO ID: [id number] Author: ALCE BLAIR APRN.CNP Service: ? 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 As applicable, any other physician, advance practice provider, medical student, or other health professional student that will be observing or involved in the sensitive examination for educational or training purposes was discussed with the Patient or Authorized Occ Therapist. The Patient or Authorized Occ Therapist has agreed to proceed with the sensitive examination. (Sensitive examination includes inspection and/or palpation of the breasts, pelvis, prostate and anorectal regions). EXAM: BP 110/64 Ht 5' 9 (1.75m) Wt 155 lb (70.3kg) LMP 01/06/2012 [...] external genitalia normal, normal Bartholin's glands, urethra, [place]'s glands, no vulvar lesions, no cervical lesions, good vaginal support, physiologic discharge present, normal appearin (more content not included)... 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 Cardioverted with 150j under sedation DEFIBRILLATOR SURGERY 02/24/2014 ICD, redo WPW & atrial fib ablation EPS: DEFIB. SURGERY 05/16/2021 Exchange of a Net[employer]reams SQ-RX 1010 pulse generator with a BOSTON [...] HOCM s/p ICD None Maternal Grandfather age 46-suddenly Heart Maternal Grandmother [place] age 72 Alcohol/Drug Paternal Grandfather ETOH Diabetes [...] discussed with the Patient or Patient's Authorized Occ Therapist. As applicable, any other physician, advance practice provider, medical student, or other health professional student that will be observing or involved in the sensitive examination for educational or training purposes was discussed with the Patient or Authorized Occ Therapist. The Patient or Authorized Occ Therapist has agreed to proceed with the sensitive examination. (Sensitive examination includes inspection and/or palpation of the breasts, pelvis, prostate and anorectal regions). EXAM: BP 110/64 Ht 5' 9 (1.75m) Wt 155 lb (70.3kg) LMP 01/06/2012 [...] external genitalia normal, normal Bartholin's glands, urethra, [place]'s glands, no vulvar lesions, no cervical lesions, [...] and consult will be placed Alec Blair APRN.GENIE documented in this encounter [facility] 07-29-2024 Telephone encounter Note The following approved medication requests have been transmitted electronically. Requested Prescriptions Pending Prescriptions Disp Refills warfarin (COUMADIN) 5 mg tablet 45 tablet 5 Sig: Take 1.5 tablets by mouth once daily. Equally 7.5 mg Daily Yissel Marcial APRN.CNP [facility] 07-29-2024 Miscellaneous Notes The following approved medication requests have been transmitted electronically. Requested Prescriptions Pending Prescriptions Disp Refills warfarin (COUMADIN) 5 mg tablet 45 tablet 5 Sig: Take 1.5 tablets by mouth once daily. Equally 7.5 mg Daily Yissel Marcial APRN.CNP Prescription Refill Information The patient has [...] 2024 10:58 AM documented in this encounter [facility] 07-29-2024 Telephone encounter Note Prescription Refill [...] French LPN July 29, 2024 10:58 AM [facility] 07-28-2024 Telephone encounter Note [facility] Ambulatory Pharmacy Anticoagulation Clinic Anticoagulation Episode Summary Anticoagulation Care Providers Provider Role Specialty Phone number Jayjay Ortiz MD Referring Cardiology [phone] Chavo Cavanaugh is a 44 year old year old [...] Indication for Warfarin: Paroxysmal atrial fibrillation (hcc) USP (current) use of anticoagulants Atrial fibrillation, unspecified type (hcc) Anticoagulation Episode Summary Current INR goal: 2.0-3.0 Assessment: INR result of 2.1 is therapeutic Plan: Current Warfarin Dosing As of 07/28/2024 Full warfarin instructions: 10 mg every Mon, Diane; 7.5 mg all other days Sent [employer] message Advised patient to continue current weekly [...] Pharmacy Anticoagulation Clinic Pharmacy Anticoagulation Clinic Pager: [phone]. [facility] 07-28-2024 Miscellaneous Notes [facility] Ambulatory Pharmacy Anticoagulation Clinic Anticoagulation Episode Summary Anticoagulation Care Providers Provider Role Specialty Phone number Jayjay Ortiz MD Referring Cardiology [phone] Chavo Cavanaugh is a 44 year old year old [...] Indication for Warfarin: Paroxysmal atrial fibrillation (hcc) USP (current) use of anticoagulants Atrial fibrillation, unspecified type (hcc) Anticoagulation Episode Summary Current INR goal: 2.0-3.0 Assessment: INR result of 2.1 is therapeutic Plan: Current Warfarin Dosing As of 07/28/2024 Full warfarin instructions: 10 mg every Mon, Diane; 7.5 mg all other days Sent [employer] message Advised patient to continue current weekly dose as noted above Next home INR check scheduled on 08/04/2024 Patient advised to call the PAC with any medication changes, bleeding/bruising concerns, recent changes in vitamin k consumption, if any procedures are coming up, if they have been ill or in the hospital, and if they have missed any doses of warfarin. Milla Douglas RP Clinical Pharmacist, Pharmacy Anticoagulation Clinic Pharmacy Anticoagulation Clinic Pager: [phone]. PAC received faxed outside lab/home meter result for patient via [facility] from Date: 07/28 . Results have been scanned into patient's chart and are located under 'Scanned Documents'. Please note, may take up to 10 minutes for document to transfer from [facility] to [facility]. PT INR (no units) Date Value 07/28/2024 2.1 07/20/2024 2.7 07/13/2024 3.5 [place] Paz (Inbound Call Center Agent) documented in this encounter [facility] 07-28-2024 Telephone encounter Note PAC received faxed outside lab/home meter result for patient via [facility] from Date: 07/28 . Results have been scanned into patient's chart and are located under 'Scanned Documents'. Please note, may take up to 10 minutes for document to transfer from [employer] to [facility]. PT INR (no units) Date Value 07/28/2024 2.1 07/20/2024 2.7 07/13/2024 3.5 Maine Paz ([employer]) [facility] 07-20-2024 Miscellaneous Notes [facility] Ambulatory Pharmacy Anticoagulation Clinic Anticoagulation Episode Summary Anticoagulation Care Providers Provider Role Specialty Phone number Jayjay Ortiz MD Referring Cardiology [phone] Chavo Cavanaugh is a 44 year old year old [...] unspecified type (hcc) Paroxysmal atrial fibrillation (hcc) USP (current) use of anticoagulants Anticoagulation Episode Summary Current INR goal: 2.0-3.0 Assessment: INR result of 2.7 is therapeutic Plan: Current Warfarin Dosing As of 07/20/2024 Full warfarin instructions: 10 mg every Mon, Diane; 7.5 mg all other days Sent [employer] message Advised patient to continue current weekly [...] Pharmacy Anticoagulation Clinic Pharmacy Anticoagulation Clinic Pager: [phone]. PAC received faxed outside lab/home meter result for patient via [facility] from Date: 07/20 . Results have been scanned into patient's chart and are located under 'Scanned Documents'. Please note, may take up to 10 minutes for document to transfer from [employer] to [employer]. PT INR (no units) Date Value 07/20/2024 2.7 07/13/2024 3.5 07/07/2024 2.0 [place] Paz (Inbound Call Center Agent) documented in this encounter [facility] 07-20-2024 Telephone encounter Note [facility] Ambulatory Pharmacy Anticoagulation Clinic Anticoagulation Episode Summary Anticoagulation Care Providers Provider Role Specialty Phone number Jayjay Ortiz MD Referring Cardiology [phone] Chavo Cavanaugh is a 44 year old year old [...] Diane; 7.5 mg all other days Sent [employer] message Advised patient to continue current weekly [...] Pharmacy Anticoagulation Clinic Pharmacy Anticoagulation Clinic Pager: [phone]. [facility] 07-20-2024 Telephone encounter Note PAC received faxed outside lab/home meter result for patient via [facility] from Date: 07/20 . Results have been scanned into patient's chart and are located under 'Scanned Documents'. Please note, may take up to 10 minutes for document to transfer from [employer] to [facility]. PT INR (no units) Date Value 07/20/2024 2.7 07/13/2024 3.5 07/07/2024 2.0 Maine Paz ([employer]) [facility] 07-14-2024 Instructions Yissel Marcial APRN.GENIE - 07/14/2024 2:47 PM EDT 1) Labs today 2) Flu shot today 3) Pneumonia shot 4) Consult TAXATION ECONOMIST 5) Follow up 6 m documented in this encounter [facility] 07-14-2024 History of Present illness Narrative This is a 44 year old female who presents today with: Patient presents with: Follow Up HISTORY OF PRESENT ILLNESS: Chavo Cavanaugh is a 44 year old female. 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 Cardioverted with 150j under sedation DEFIBRILLATOR SURGERY 02/24/2014 ICD, redo WPW & atrial fib ablation EPS: DEFIB. SURGERY 05/16/2021 Exchange of a [employer] SQ-RX 1010 pulse generator with a BOSTON [...] HOCM s/p ICD None Maternal Grandfather age 46-suddenly Heart Maternal Grandmother [place] age 72 Alcohol/Drug Paternal Grandfather ETOH Diabetes [...] Z95.810 Stable - Follows w/ Cardiology 6. 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 Yissel Marcial APRN.CNP documented in this encounter [facility] 07-13-2024 Telephone encounter Note [facility] Ambulatory Pharmacy Anticoagulation Clinic Anticoagulation Episode Summary Anticoagulation Care Providers Provider Role Specialty Phone number Jayjay Ortiz MD Referring Cardiology [phone] Chavo Cavanaugh is a 44 year old year old [...] Pharmacy Anticoagulation Clinic Pharmacy Anticoagulation Clinic Pager: [phone]. [facility] 07-13-2024 Miscellaneous Notes [facility] Ambulatory Pharmacy Anticoagulation Clinic Anticoagulation Episode Summary Anticoagulation Care Providers Provider Role Specialty Phone number Jayjay Ortiz MD Referring Cardiology [phone] Chavo Cavanaugh is a 44 year old year old [...] unspecified type (hcc) Paroxysmal atrial fibrillation (hcc) USP (current) use of anticoagulants Anticoagulation Episode Summary [...] Pharmacy Anticoagulation Clinic Pharmacy Anticoagulation Clinic Pager: [phone]. Received fax from [facility] with INR results for patient. Patient tested on 07/13/2024 and the INR result was 3.5. Fax can be found under scanned documents as miscellaneous lab result. It [facility] a [facility]. PT INR (no units) Date Value 07/13/2024 3.5 07/07/2024 2.0 06/29/2024 2.3 Bernardo Zamora, Head Of Conservation (scutcher tender) Pharmacy Anticoagulation Clinic documented in this encounter [facility] 07-13-2024 Telephone encounter Note Received fax from [facility] with INR results for patient. Patient tested on 07/13/2024 and the INR result was 3.5. Fax can be found under scanned documents as miscellaneous lab result. It may take a few minutes to transfer from [employer]. PT INR (no units) Date Value 07/13/2024 3.5 07/07/2024 2.0 06/29/2024 2.3 Bernardo Zamora, Head Of Conservation (scutcher tender) Pharmacy Anticoagulation Clinic [facility] 07-13-2024 History of Present illness Narrative [...] others. I have seen and examined Chavo Cavanaugh. I have discussed the case and the management of this patient's care with the Resident/Fellow, if applicable. I also have reviewed and agree with the assessment and plan as stated above and agree with all of its relevant components. Tri Hammond MD documented in this encounter [facility] 07-07-2024 Telephone encounter Note [facility] Ambulatory Pharmacy Anticoagulation Clinic Anticoagulation Episode Summary Anticoagulation Care Providers Provider Role Specialty Phone number Jayjay Ortiz MD Referring Cardiology [phone] Chavo Cavanaugh is a 44 year old year old [...] unspecified type (hcc) Paroxysmal atrial fibrillation (hcc) USP (current) use of anticoagulants Anticoagulation Episode Summary Current INR goal: 2.0-3.0 Assessment: INR result of 2.0 is therapeutic Plan: Current Warfarin Dosing As of 07/07/2024 Full warfarin instructions: 10 mg every Mon, Diane; 7.5 mg all other days Sent [employer] message Advised patient to continue current weekly dose as noted above Next home INR check scheduled on 07/14/2024 Milla Douglas [facility] Clinical Pharmacist, Pharmacy Anticoagulation Clinic Pharmacy Anticoagulation Clinic Pager: [phone]. [facility] 07-07-2024 Miscellaneous Notes [facility] Ambulatory Pharmacy Anticoagulation Clinic Anticoagulation Episode Summary Anticoagulation Care Providers Provider Role Specialty Phone number Jayjay Ortiz MD Referring Cardiology [phone] Chavo Cavanaugh is a 44 year old year old [...] Diane; 7.5 mg all other days Sent [employer] message Advised patient to continue current weekly dose as noted above Next home INR check scheduled on 07/14/2024 Milla Douglas RPh Clinical Pharmacist, Pharmacy Anticoagulation Clinic Pharmacy Anticoagulation Clinic Pager: [phone]. Received fax from [facility] with INR results for patient. Patient tested on 07/07/2024 and the INR result was 2.0. Fax can be found under scanned documents as miscellaneous lab result. It may take a few minutes to transfer from [employer]. PT INR (no units) Date Value 07/07/2024 2.0 06/29/2024 2.3 06/17/2024 3.3 Bernardo Zamora Head Of Conservation (scutcher tender) Pharmacy Anticoagulation Clinic documented in this encounter [facility] 07-07-2024 Telephone encounter Note Received fax from [facility] with INR results for patient. Patient tested on 07/07/2024 and the INR result was 2.0. Fax can be found under scanned documents as miscellaneous lab result. It may take a few minutes to transfer from [employer]. PT INR (no units) Date Value 07/07/2024 2.0 06/29/2024 2.3 06/17/2024 3.3 Bernardo Zamroa Head Of Conservation (scutcher tender) Pharmacy Anticoagulation Clinic [facility] 06-30-2024 Telephone encounter Note [facility] Ambulatory Pharmacy Anticoagulation Clinic Anticoagulation Episode Summary Anticoagulation Care Providers Provider Role Specialty Phone number Jayjay Ortiz MD Referring Cardiology [phone] Chavo Cavanaugh is a 43 year old year old [...] Diane; 7.5 mg all other days Sent [employer] message Advised patient to continue current weekly dose as noted above Next home INR check scheduled on 07/06/2024 Milla Douglas RPh Clinical Pharmacist, Pharmacy Anticoagulation Clinic Pharmacy Anticoagulation Clinic Pager: [phone]. [facility] 06-30-2024 Miscellaneous Notes [facility] Ambulatory Pharmacy Anticoagulation Clinic Anticoagulation Episode Summary Anticoagulation Care Providers Provider Role Specialty Phone number Jayjay Ortiz MD Referring Cardiology [phone] Chavo Cavanaugh is a 43 year old year old [...] unspecified type (hcc) Paroxysmal atrial fibrillation (hcc) USP (current) use of anticoagulants Anticoagulation Episode Summary Current INR goal: 2.0-3.0 Assessment: INR result of 2.3 is therapeutic Plan: Current Warfarin Dosing As of 06/30/2024 Full warfarin instructions: 10 mg every Mon, Diane; 7.5 mg all other days Sent [employer] message Advised patient to continue current weekly dose as noted above Next home INR check scheduled on 07/06/2024 Milla Douglas [facility] Clinical Pharmacist, Pharmacy Anticoagulation Clinic Pharmacy Anticoagulation Clinic Pager: [phone]. PAC received faxed outside lab/home meter result for patient via [facility] from Date: 06/29 . Results have been scanned into patient's chart and are located under 'Scanned Documents'. Please note, may take up to 10 minutes for document to transfer from [employer] to [employer]. PT INR (no units) Date Value 06/29/2024 2.3 06/17/2024 3.3 06/02/2024 1.6 Maine Paz ([employer]) documented in this encounter [facility] 06-30-2024 Telephone encounter Note PAC received faxed outside lab/home meter result for patient via [facility] from Date: 06/29 . Results have been scanned into patient's chart and are located under 'Scanned Documents'. Please note, may take up to 10 minutes for document to transfer from [employer] to [employer]. PT INR (no units) Date Value 06/29/2024 2.3 06/17/2024 3.3 06/02/2024 1.6 [place] Paz ([employer]) [facility] 06-20-2024 Telephone encounter Note [facility] Ambulatory Pharmacy Anticoagulation Clinic Anticoagulation Episode Summary Anticoagulation Care Providers Provider Role Specialty Phone number Jayjay Ortiz MD Referring Cardiology [phone] Chavo Cavanaugh is a 43 year old year old [...] unspecified type (hcc) Paroxysmal atrial fibrillation (hcc) USP (current) use of anticoagulants Anticoagulation Episode Summary [...] Pharmacy Anticoagulation Clinic Pharmacy Anticoagulation Clinic Pager: [phone]. [facility] 06-20-2024 Miscellaneous Notes [facility] Anticoagulation Clinic Anticoagulation Episode Summary Anticoagulation Care Providers Provider Role Specialty Phone number Jayjay Ortiz MD Referring Cardiology [phone] Chavo Cavanaugh is a 43 year old year old [...] 5 mg; Otherwise 10 mg every Thu, Diane; 7.5 mg all other days Left voice message - Left detailed VM with dosing per prior permission Advised patient to decrease dose for 1 day only then resume weekly regimen Next home INR check scheduled on 06/30 Rosa Moore RPh Clinical Pharmacist, Pharmacy Anticoagulation Clinic Pharmacy Anticoagulation Clinic Pager: [phone]. Received fax from [facility] with INR results for patient. Patient tested on 06/17/2024 and the INR result was 3.3. Fax can be found under scanned documents as miscellaneous lab result. It may take a few minutes to transfer from [employer]. PT INR (no units) Date Value 06/17/2024 3.3 06/02/2024 1.6 05/25/2024 1.9 Bernardo Zamora Head Of Conservation (scutcher tender) Pharmacy Anticoagulation Clinic documented in this encounter [facility] 06-20-2024 Telephone encounter Note Received fax from [facility] with INR results for patient. Patient tested on 06/17/2024 and the INR result was 3.3. Fax can be found under scanned documents as miscellaneous lab result. It may take a few minutes to transfer from [employer]. PT INR (no units) Date Value 06/17/2024 3.3 06/02/2024 1.6 05/25/2024 1.9 Bernardo Zamora Head Of Conservation (scutcher tender) Pharmacy Anticoagulation Clinic [facility] 06-08-2024 Instructions Tri Hammond MD - 06/08/2024 4:29 PM EDT -preservative-free artificial tears four times a day -restasis twice a day both eyes -doxycyline 50mg daily -valtrex 500mg twice a day orally x 2 weeks then stop documented in this encounter [facility] 06-08-2024 History of Present illness Narrative [...] others. I have seen and examined Chavo Cavanaugh. I have discussed the case and the management of this patient's care with the Resident/Fellow, if applicable. I also have reviewed and agree with the assessment and plan as stated above and agree with all of its relevant components. Tri Hammond MD documented in this encounter [facility] 06-08-2024 Telephone encounter Note Submitted request for prior authorization- Restasis via [employer]. Approval received. Valid 05/09/24 to 06/08/25. Shaye Le June 08, 2024 1:00 PM [facility] 06-08-2024 Miscellaneous Notes Submitted request for prior authorization- Restasis via [employer]. Approval received. Valid 05/09/24 to 06/08/25. Shaye Rey June 08, 2024 1:00 PM documented in this encounter [facility] 06-03-2024 Telephone encounter Note [employer] message has been routed to Dr. Hammond and to Dr. Fajardo to advise. Judy Lake RN June 03, 2024 10:48 AM [facility] 06-03-2024 Miscellaneous Notes [employer] message has been routed to Dr. Hammond and to Dr. Fajardo to advise. Judy Lake RN June 03, 2024 10:48 AM Patient has also sent the same message via [employer]. Routed to Dr. Hammond. Waiting for response from Dr. Hammond. Judy Lake RN June 02, 2024 3:25 PM Patient called in stating they have stopped Prednisolone and their eyes are watering and swelling again. Patient would like to know if she should begin again? Patient needs another refill if so Please advise Thank you Jackie Blanco June 02, 2024 3:07 PM documented in this encounter [facility] 06-02-2024 Telephone encounter Note Patient has also sent the same message via [employer]. Routed to Dr. Hammond. Waiting for response from Dr. Hammond. Judy Lake RN June 02, 2024 3:25 PM [facility] 06-02-2024 Telephone encounter Note Patient called in stating they have stopped Prednisolone and their eyes are watering and swelling again. Patient would like to know if she should begin again? Patient needs another refill if so Please advise Thank you Jackie Blanco June 02, 2024 3:07 PM [facility] 06-02-2024 Telephone encounter Note [facility] Ambulatory Pharmacy Anticoagulation Clinic Anticoagulation Episode Summary Anticoagulation Care Providers Provider Role Specialty Phone number Jayjay Ortiz MD Referring Cardiology [phone] Chavo Cavanaugh is a 43 year old year old [...] Indication for Warfarin: Paroxysmal atrial fibrillation (hcc) USP (current) use of anticoagulants Anticoagulation Episode Summary Current INR goal: 2.0-3.0 Assessment: INR result of 1.6 is SUBtherapeutic due to: unknown cause - did not speak to patient Plan: Current Warfarin Dosing As of 06/02/2024 Full warfarin instructions: 06/02: 12.5 mg; Otherwise 10 mg every Mon, Diane; 7.5 mg all other days Sent mychart message + LVMX to check MYC messages Advised patient to increase dose for 1 day and increase total weekly regimen Next home INR check scheduled on 06/09/2024 Sharon Mejia RPh Clinical Pharmacist, Pharmacy Anticoagulation Clinic Pharmacy Anticoagulation Clinic Pager: [phone]. [facility] 06-02-2024 Miscellaneous Notes [facility] Anticoagulation Clinic Anticoagulation Episode Summary Anticoagulation Care Providers Provider Role Specialty Phone number Jayjay Ortiz MD Referring Cardiology [phone] Chavo Cavanaugh is a 43 year old year old [...] Diane; 7.5 mg all other days Sent [employer] message + LVMX to check [employer]C messages Advised patient to increase dose for 1 day and increase total weekly regimen Next home INR check scheduled on 06/09/2024 Sharon Mejia RPh Clinical Pharmacist, Pharmacy Anticoagulation Clinic Pharmacy Anticoagulation Clinic Pager: [phone]. Received fax from [facility] with INR results for patient. Patient tested on 06/02/2024 and the INR result was 1.6. Fax can be found under scanned documents as miscellaneous lab result. [facility] PT INR (no units) Date Value 06/02/2024 1.6 05/25/2024 1.9 05/18/2024 2.3 Bernardo Zamora, Head Of Conservation (scutcher tender) Pharmacy Anticoagulation Clinic Last OV with referring provider was 11/25/2022 documented in this encounter [facility] 06-02-2024 Telephone encounter Note Received fax from [facility] with INR results for patient. Patient tested on 06/02/2024 and the INR result was 1.6. Fax can be found under scanned documents as miscellaneous lab result. It may take a few minutes to transfer from [employer]. 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 -rosacea main culprit (on doxycycline) -patient [...] Recommendations -RTC one [place] me in [place] for progress check -continue habitual drop regimen, not taking polytrim, recommend starting vigamox QID while wearing bandage lens. Oneyda Fajardo OD documented in this encounter [facility] 06-01-2024 History of Present illness Narrative [...] to restart restasis until she sees Dr. Hammond on 06/08/24 Oneyda Fajardo, OD documented in this encounter [facility] 05-26-2024 Telephone encounter Note [facility] Ambulatory Pharmacy Anticoagulation Clinic Anticoagulation Episode Summary Anticoagulation Care Providers Provider Role Specialty Phone number Jayjay Ortiz MD Referring Cardiology [phone] Chavo Cavanaugh is a 43 year old year old [...] unspecified type (hcc) Paroxysmal atrial fibrillation (hcc) USP (current) use of anticoagulants Anticoagulation Episode Summary [...] Pharmacy Anticoagulation Clinic Pharmacy Anticoagulation Clinic Pager: [phone]. [facility] 05-26-2024 Miscellaneous Notes [facility] Ambulatory Pharmacy Anticoagulation Clinic Anticoagulation Episode Summary Anticoagulation Care Providers Provider Role Specialty Phone number Jayjay Ortiz MD Referring Cardiology [phone] Chavo Cavanaugh is a 43 year old year old [...] unspecified type (hcc) Paroxysmal atrial fibrillation (hcc) USP (current) use of anticoagulants Anticoagulation Episode Summary [...] Pharmacy Anticoagulation Clinic Pharmacy Anticoagulation Clinic Pager: [phone]. Received fax from [facility] with INR results for patient. Patient tested on 05/25/2024 and the INR result was 1.9. Fax can be found under scanned documents as miscellaneous lab result. It may take a few minutes to transfer from [employer]. PT INR (no units) Date Value 05/25/2024 1.9 05/18/2024 2.3 05/14/2024 2.4 Bernardo Zamora, Head Of Conservation (scutcher tender) [facility] documented in this encounter [facility] 05-26-2024 Telephone encounter Note Appointment scheduled for SDA at 2:45. Left detailed voicemail in regards to appointment. Samira Lyons May 26, 2024 12:25 PM [facility] 05-26-2024 Miscellaneous Notes Appointment scheduled for [...] 2024 12:17 PM documented in this encounter [facility] 05-26-2024 Telephone encounter Note Patient states [...] Samira Lyons May 26, 2024 12:17 PM [place] [address]-22-2024 Telephone encounter Note Received fax from [employer] with INR results for patient. Patient tested on 05/25/2024 and the INR result was 1.9. Fax can be found under scanned documents as miscellaneous lab result. [facility]R (no units) Date Value 05/25/2024 1.9 05/18/2024 2.3 05/14/2024 2.4 Bernardo Zamora, Head Of Conservation (scutcher tender) Pharmacy Anticoagulation Clinic [facility] 05-25-2024 Telephone encounter Note Faxed [employer] F[employer]A/Disability forms per patient request to [phone]. Shaye Le May 25, 2024 3:23 PM [facility] 05-25-2024 Miscellaneous Notes Faxed [employer]/Disability forms per patient request to [phone]. Shaye Le May 25, 2024 3:23 PM documented in this encounter [facility] 05-19-2024 Telephone encounter Note [facility] Ambulatory Pharmacy Anticoagulation Clinic Anticoagulation Episode Summary Anticoagulation Care Providers Provider Role Specialty Phone number Jayjay Ortiz MD Referring Cardiology [phone] Chavo Cavanaugh is a 43 year old year old [...] Diane; 7.5 mg all other days Sent [employer] message Advised patient to continue current weekly dose as noted above Next home INR check scheduled on 06/01/2024 Diana Harmon RPh Clinical Pharmacist, Pharmacy Anticoagulation Clinic Pharmacy Anticoagulation Clinic Pager: [phone]. [facility] Work Phone: 05-19-2024 Miscellaneous Notes [facility] Ambulatory Pharmacy Anticoagulation Clinic Anticoagulation Episode Summary Anticoagulation Care Providers Provider Role Specialty Phone number Jayjay Ortiz MD Referring Cardiology [phone] Chavo Cavanaugh is a 43 year old year old [...] unspecified type (hcc) Paroxysmal atrial fibrillation (hcc) USP (current) use of anticoagulants Anticoagulation Episode Summary Current INR goal: 2.0-3.0 Assessment: INR result of 2.3 is therapeutic Plan: Current Warfarin Dosing As of 05/19/2024 Full warfarin instructions: 10 mg every Diane; 7.5 mg all other days Sent [employer] message Advised patient to continue current weekly dose as noted above Next home INR check scheduled on 06/01/2024 Diana Harmon RPh Clinical Pharmacist, Pharmacy Anticoagulation Clinic Pharmacy Anticoagulation Clinic Pager: [phone]. PAC received faxed outside lab/home meter result for patient via [facility] from Date: 05/18 . Results have been scanned into patient's chart and are located under 'Scanned Documents'. Please note, may take up to 10 minutes for document to transfer from [employer] to [employer]. PT INR (no units) Date Value 05/18/2024 2.3 05/14/2024 2.4 05/04/2024 1.7 [place] ([employer]) documented in this encounter [facility] 05-19-2024 Telephone encounter Note PAC received faxed outside lab/home meter result for patient via [facility] from Date: 05/18 . Results have been scanned into patient's chart and are located under 'Scanned Documents'. Please note, may take up to 10 minutes for document to transfer from [employer] to [employer]. PT INR (no units) Date Value 05/18/2024 2.3 05/14/2024 2.4 05/04/2024 1.7 [place] ([employer]) [facility] 05-16-2024 History of Present illness Narrative [...] others. I have seen and examined Chavo Cavanaugh. I have discussed the case and the management of this patient's care with the Resident/Fellow, if applicable. I also have reviewed and agree with the assessment and plan as stated above and agree with all of its relevant components. Tri Hammond MD documented in this encounter [facility] 05-16-2024 Telephone encounter Note [facility] Ambulatory Pharmacy Anticoagulation Clinic Anticoagulation Episode Summary Anticoagulation Care Providers Provider Role Specialty Phone number Jayjay Ortiz MD Referring Cardiology [phone] Chavo Cavanaugh is a 43 year old year old [...] Diane; 7.5 mg all other days Sent [employer] message Advised patient to continue current weekly dose as noted above Next home INR check scheduled on 05/23/2024 Jennifer Zazueta RPh Clinical Pharmacist, Pharmacy Anticoagulation Clinic Pharmacy Anticoagulation Clinic Pager: [phone]. [facility] 05-16-2024 Miscellaneous Notes [facility] Ambulatory Pharmacy Anticoagulation Clinic Anticoagulation Episode Summary Anticoagulation Care Providers Provider Role Specialty Phone number Jayjay Ortiz MD Referring Cardiology [phone] Chavo Cavanaugh is a 43 year old year old [...] unspecified type (hcc) Paroxysmal atrial fibrillation (hcc) USP (current) use of anticoagulants Anticoagulation Episode Summary Current INR goal: 2.0-3.0 Assessment: INR result of 2.4 is therapeutic Plan: Current Warfarin Dosing As of 05/16/2024 Full warfarin instructions: 10 mg every Diane; 7.5 mg all other days Sent [employer] message Advised patient to continue current weekly dose as noted above Next home INR check scheduled on 05/23/2024 Jennifer Zazueta RPh Clinical Pharmacist, Pharmacy Anticoagulation Clinic Pharmacy Anticoagulation Clinic Pager: [phone]. PAC received faxed outside lab/home meter result for patient via [facility] from Date: 05/14 . Results have been scanned into patient's chart and are located under 'Scanned Documents'. Please note, may take up to 10 minutes for document to transfer from [employer] to [employer]. PT INR (no units) Date Value 05/14/2024 2.4 05/04/2024 1.7 04/28/2024 3.6 [place] ([employer]) documented in this encounter [facility] 05-16-2024 Telephone encounter Note PAC received faxed outside lab/home meter result for patient via [facility] from Date: 05/14 . Results have been scanned into patient's chart and are located under 'Scanned Documents'. Please note, may take up to 10 minutes for document to transfer from [employer] to [employer]. PT INR (no units) Date Value 05/14/2024 2.4 05/04/2024 1.7 04/28/2024 3.6 [place] ([employer]) [facility] 05-12-2024 Telephone encounter Note Form completed and faxed to [facility] [employer] [facility] @[phone] Shaye Le May 12, 2024 1:55 PM [facility] 05-12-2024 Miscellaneous Notes Form completed and faxed to [facility] @[phone] Shaye Le May 12, 2024 1:55 PM [...] 2024 4:31 PM documented in this encounter [facility] 05-10-2024 Telephone encounter Note Forms received. Will complete tomorrow. Shaye Le May 10, 2024 3:38 PM [facility] 05-09-2024 Instructions Tri Hammond MD - 05/09/2024 2:11 PM EDT -preservative-free artificial tears four times a day both eyes as needed -switch moxifloxacin (reddy top) to polytrim (white top) 3 times a day right eye -prednisolone (pink cap) three times a day right eye -restasis twice a day left eye only -doxycyline 50mg daily documented in this encounter [facility] 05-09-2024 History of Present illness Narrative [...] others. I have seen and examined Chavo Cavanaugh. I have discussed the case and the management of this patient's care with the Resident/Fellow, if applicable. I also have reviewed and agree with the assessment and plan as stated above and agree with all of its relevant components. Tri Hammond MD documented in this encounter [facility] 05-09-2024 Telephone encounter Note Have not received [facility] paperwork for patient yet. Shaye Le May 09, 2024 1:10 PM [facility] 05-09-2024 Telephone encounter Note Prescription Refill [...] Vyas LPN May 09, 2024 9:35 AM [facility] 05-09-2024 Miscellaneous Notes Prescription Refill Information [...] 2024 9:35 AM documented in this encounter [facility] 05-05-2024 Telephone encounter Note Patient states [...] Samira Lyons May 05, 2024 4:31 PM [facility] 05-05-2024 Telephone encounter Note [facility] Ambulatory Pharmacy Anticoagulation Clinic Anticoagulation Episode Summary Anticoagulation Care Providers Provider Role Specialty Phone number Jayjay Ortiz MD Referring Cardiology [phone] Chavo Cavanaugh is a 43 year old year old [...] Pharmacy Anticoagulation Clinic Pharmacy Anticoagulation Clinic Pager: [phone]. [facility] 05-05-2024 Miscellaneous Notes [facility] Ambulatory Pharmacy Anticoagulation Clinic Anticoagulation Episode Summary Anticoagulation Care Providers Provider Role Specialty Phone number Jayjay Ortiz MD Referring Cardiology [phone] Chavo Cavanaugh is a 43 year old year old [...] unspecified type (hcc) Paroxysmal atrial fibrillation (hcc) USP (current) use of anticoagulants Anticoagulation Episode Summary [...] INR check scheduled on 05/12/2024 Jackie Estrada RP Clinical Pharmacist, Pharmacy Anticoagulation Clinic Pharmacy Anticoagulation Clinic Pager: [phone]. PAC received faxed outside lab/home meter result for patient via [facility] from Date: 05/04 . Results have been scanned into patient's chart and are located under 'Scanned Documents'. Please note, may take up to 10 minutes for document to transfer from [employer] to [employer]. PT INR (no units) Date Value 05/04/2024 1.7 04/28/2024 3.6 04/14/2024 1.6 [place] ([employer]) documented in this encounter [facility] 05-05-2024 Telephone encounter Note PAC received faxed outside lab/home meter result for patient via [facility] from Date: 05/04 . Results have been scanned into patient's chart and are located under 'Scanned Documents'. Please note, may take up to 10 minutes for document to transfer from [employer] to [employer]. PT INR (no units) Date Value 05/04/2024 1.7 04/28/2024 3.6 04/14/2024 1.6 [place] (Inbound Call [employer] Agent) [facility] 04-29-2024 Telephone encounter Note Called and left message to inform the patient to arrive at [address] [facility] at 1:45PM for 05/03/24 surgery with Tri Hammond MD. Explained that patient is not to arrive any earlier. Also reminded patient to refrain from eating or drinking for 8 hours prior to arrival for surgery Informed that [employer] does not contact them with the arrival time for surgery. If they receive a message from [employer] to confirm an appointment, they are to make sure of the date for the appointment. [facility] 04-29-2024 Miscellaneous Notes Called and left message to inform the patient [facility] [address] [facility] [address] at 1:45PM for 05/03/24 surgery with Tri Hammond MD. Explained that patient is not to arrive any earlier. Also reminded patient to refrain from eating or drinking for 8 hours prior to arrival for surgery Informed that [employer] does not contact them with the arrival time for surgery. If they receive a message from [employer] to confirm an appointment, they are to make sure of the date for the appointment. documented in this encounter [facility] 04-28-2024 Telephone encounter Note [facility] Ambulatory Pharmacy Anticoagulation Clinic Anticoagulation Episode Summary Anticoagulation Care Providers Provider Role Specialty Phone number Jayjay Ortiz MD Referring Cardiology [phone] Chavo Cavanaugh is a 43 year old year old [...] Pharmacy Anticoagulation Clinic Pharmacy Anticoagulation Clinic Pager: [phone]. [facility] 04-28-2024 Miscellaneous Notes [facility] Ambulatory Pharmacy Anticoagulation Clinic Anticoagulation Episode Summary Anticoagulation Care Providers Provider Role Specialty Phone number Jayjay Ortiz MD Referring Cardiology [phone] Chavo Cavanaugh is a 43 year old year old [...] unspecified type (hcc) Paroxysmal atrial fibrillation (hcc) USP (current) use of anticoagulants Anticoagulation Episode Summary [...] INR check scheduled on 05/05/2024 Jackie Estrada RP Clinical Pharmacist, Pharmacy Anticoagulation Clinic Pharmacy Anticoagulation Clinic Pager: [phone]. PAC received faxed outside lab/home meter result for patient via [facility] from Date: 04/28 . Results have been scanned into patient's chart and are located under 'Scanned Documents'. Please note, may take up to 10 minutes for document to transfer from [employer] to [employer]. PT INR (no units) Date Value 04/28/2024 3.6 04/14/2024 1.6 03/31/2024 1.3 [place] ([employer] documented in this encounter [facility] 04-28-2024 Telephone encounter Note PAC received faxed outside lab/home meter result for patient via [facility] from Date: 04/28 . Results have been scanned into patient's chart and are located under 'Scanned Documents'. Please note, may take up to 10 minutes for document to transfer from [employer] to [employer]. PT INR (no units) Date Value 04/28/2024 3.6 04/14/2024 1.6 03/31/2024 1.3 [place] ([employer]) [facility] 04-15-2024 History of Present illness Narrative Patient was scheduled for a nutrition appointment today. The patient did not check into their scheduled appointment. I sent the patient a [employer] message encouraging them to reschedule their appointment by calling [phone]. documented in this encounter [facility] 04-14-2024 Telephone encounter Note [facility] Ambulatory Pharmacy Anticoagulation Clinic Anticoagulation Episode Summary Anticoagulation Care Providers Provider Role Specialty Phone number Jayjay Ortiz MD Referring Cardiology [phone] Chavo Cavanaugh is a 43 year old year old [...] Advised pt to Call Coumadin Clinic at [phone] to confirm dosing and follow-up Milla Douglas RPh Clinical Pharmacist, Pharmacy Anticoagulation Clinic Pharmacy Anticoagulation Clinic Pager: [phone]. [facility] 04-14-2024 Miscellaneous Notes [facility] Ambulatory Pharmacy Anticoagulation Clinic Anticoagulation Episode Summary Anticoagulation Care Providers Provider Role Specialty Phone number Jayjay Ortiz MD Referring Cardiology [phone] Chavo Cavanaugh is a 43 year old year old [...] Advised pt to Call Coumadin Clinic at [phone] to confirm dosing and follow-up Milla Douglas RPh Clinical Pharmacist, Pharmacy Anticoagulation Clinic Pharmacy Anticoagulation Clinic Pager: [phone]. PAC received faxed outside lab/home meter result for patient via mdINR from Date: 04/14 . Results have been scanned into patient's chart and are located under 'Scanned Documents'. Please note, may take up to 10 minutes for document to transfer from [employer] to [employer]. PT INR (no units) Date Value 04/14/2024 1.6 03/31/2024 1.3 03/24/2024 2.0 Maine Paz ([employer]) documented in this encounter [facility] 04-14-2024 Telephone encounter Note PAC received faxed outside lab/home meter result for patient via mdINR from Date: 04/14 . Results have been scanned into patient's chart and are located under 'Scanned Documents'. Please note, may take up to 10 minutes for document to transfer from [employer] to [facility]. PT INR (no units) Date Value 04/14/2024 1.6 03/31/2024 1.3 03/24/2024 2.0 Maine Paz ([employer]) [facility] 04-14-2024 Instructions Yissel Marcial APRN.WATER RESOURCE PROJECT MANAGER - 04/14/2024 2:00 PM EDT 1) Foods rich in potassium 2) Optimized for surgery 3) Follow up in 3 months Alexus Appianer [employer] Official reprint from comment.com www.Escom 2023 [employer]. and/or its affiliates. All Rights Reserved. Some foods that are high in potassium Fruits Vegetables Proteins Other Avocado Bananas Coconut Cantaloupe and honeydew melons Dates Dried fruits Figs Kiwi [place] Nectarines Oranges and orange juice Prunes and prune juice Raisins Artichokes Baked beans Beets Broccoli [place] sprouts Cabbage (raw) Carrots (raw) Chard Olives Potatoes (white and sweet) Pickles Pumpkin Rutabaga Squash (acorn, butternut, amezquita) Tomatoes and tomato juice Black beans Clams Ground beef Kidney beans Lobster Turney beans [place] beans [place] Sardines Scallops Steak [place] Chocolate Dairy products Granola Milk Peanut butter Soups that are salt-free or low-sodium Soy milk Sports drinks Tomato sauce Wheat bran and bran products Whole-grain bread Yogurt The foods on this list are high in potassium. People who need to follow a low-potassium diet should avoid or limit these foods. Graphic 47979 Version 3.0 documented in this encounter [facility] 04-14-2024 History of Present illness Narrative PRE-OPERATIVE ASSESSMENT Surgeon: Dr. Hammond Type of surgery: Keratectomy right eye Patient scheduled for surgery on 05/04/24. Diagnosis: rosacea keratitis Consultation requested by Dr. Hammond for an opinion regarding optimization. My final [...] A FUNCTIONAL CLASS: IV REVIEW OF SYSTEMS PAWN SHOP KEEPER: No history of stroke, TIAs, or seizures, or dementia reported.. RESP: Denies dyspnea, chronic cough, asthma, bronchitis, COPD, emphysema, and URI < 2 weeks ago. and + sleep apnea- resolved after gastric bypass February 2023 CARD: Patient denies any dyspnea, recent IN, angina, arrhythmias, or valvular disease, and Denies [...] DEFIB. SURGERY 05/16/2021 Exchange of a [employer] SQ-RX 1010 pulse generator with a [employer] [employer] GASTRIC BYPASS/JENNY-EN-Y 02/18/2023 150cmantecolic jenny, 70cm bp [...] Left BBB; KNOWN ICD --------- IMPRESSION: Yissel Marcial, CONTENT ANALYST.GENIE Chavo Cavanaugh is a 43 year old female. functional [...] Hx of WPW & hypertrophic CM Yissel Marcial APRN.WATER RESOURCE PROJECT MANAGER documented in this encounter [facility] 04-11-2024 Telephone encounter Note Contacted patient to reschedule due to provider out of office. [facility] 04-11-2024 Miscellaneous Notes Contacted patient to reschedule due to provider out of office. Type of form: PreOperative Clearance for Dr. Mukesh MD for Keratectomy Right Eye date of surgery is 05/04/2024 Form received via fax When form is completed, Fax form to [phone] Form has been forwarded to Physician Rojas Palma. Patient has an appointment 04/14/24, nurse holding form until appointment. Ysisel Atkins LPN documented in this encounter [facility] 03-31-2024 Telephone encounter Note [facility] Ambulatory Pharmacy Anticoagulation Clinic Anticoagulation Episode Summary Anticoagulation Care Providers Provider Role Specialty Phone number Jayjay Ortiz MD Referring Cardiology [phone] Chavo Cavanaugh is a 43 year old year old [...] unspecified type (hcc) Paroxysmal atrial fibrillation (hcc) USP (current) use of anticoagulants Anticoagulation Episode Summary [...] Next home INR check scheduled on 04/06/2024 LV for patient with above information and advised to call PAC at [phone] if any questions or changes to report. Scooby Del Cid [facility] Clinical Pharmacist, Pharmacy Anticoagulation Clinic Pharmacy Anticoagulation Clinic Pager: [phone]. [facility] 03-31-2024 Miscellaneous Notes [facility] Ambulatory Pharmacy Anticoagulation Clinic Anticoagulation Episode Summary Anticoagulation Care Providers Provider Role Specialty Phone number Jayjay Ortiz MD Referring Cardiology [phone] Chavo Cavanaugh is a 43 year old year old [...] information and advised to call PAC at [phone] if any questions or changes to report. Scooby Del Cid RPh Clinical Pharmacist, Pharmacy Anticoagulation Clinic Pharmacy Anticoagulation Clinic Pager: [phone]. Received fax from MDINR with INR results for patient. Patient tested on 03/31/2024 and the INR result was 1.3. Fax can be found under scanned documents as miscellaneous lab result. It may take a few minutes to transfer from [employer]. PT INR (no units) Date Value 03/31/2024 1.3 03/24/2024 2.0 03/16/2024 2.7 Bernardo Zamora, Head Of Conservation (scutcher tender) Pharmacy Anticoagulation Clinic Jose with mdINR reporting patient's INR result today (03/31/2024:) PT INR (no units) Date Value 03/31/2024 1.3 03/24/2024 2.0 03/16/2024 2.7 Bozena Calloway RN Pharmacy Anticoagulation Clinic documented in this encounter [facility] 03-31-2024 Telephone encounter Note Received fax from MDINR with INR results for patient. Patient tested on 03/31/2024 and the INR result was 1.3. Fax can be found under scanned documents as miscellaneous lab result. It may take a few minutes to transfer from [employer]. PT INR (no units) Date Value 03/31/2024 1.3 03/24/2024 2.0 03/16/2024 2.7 Bernardo Zamora, Head Of Conservation (scutcher tender) Pharmacy Anticoagulation Clinic [facility] 03-31-2024 Telephone encounter Note Type of form: PreOperative Clearance for Dr. Mukesh MD for Keratectomy Right Eye date of surgery is 05/04/2024 Form received via fax When form is completed, Fax form to [phone] Form has been forwarded to Physician Rojas Palma. Patient has an appointment 04/14/24, nurse holding form until appointment. Yissel Atkins LPN [facility] 03-31-2024 Telephone encounter Note Jose with Tony reporting patient's INR result today (03/31/2024:) PT INR (no units) Date Value 03/31/2024 1.3 03/24/2024 2.0 03/16/2024 2.7 Bozena Calloway RN Pharmacy Anticoagulation Clinic [facility] 03-24-2024 Telephone encounter Note [facility] Ambulatory Pharmacy Anticoagulation Clinic Anticoagulation Episode Summary Anticoagulation Care Providers Provider Role Specialty Phone number Jayjay Ortiz MD Referring Cardiology [phone] Chavo Cavanaugh is a 43 year old year old [...] unspecified type (hcc) Paroxysmal atrial fibrillation (hcc) USP (current) use of anticoagulants Anticoagulation Episode Summary Current INR goal: 2.0-3.0 Assessment: INR result of 2.0 is therapeutic Pt to have eye procedure 05/04, not expected to need to hold warfarin Plan: Current Warfarin Dosing As of 03/24/2024 Full warfarin instructions: 7.5 mg every day Sent [employer] message Advised patient to continue current weekly dose as noted above Next home INR check scheduled on 04/08/2024 Diana Garcia RPh Clinical Pharmacist, Pharmacy Anticoagulation Clinic Pharmacy Anticoagulation Clinic Pager: [phone]. [facility] Work Phone: 03-24-2024 Miscellaneous Notes [facility] Ambulatory Pharmacy Anticoagulation Clinic Anticoagulation Episode Summary Anticoagulation Care Providers Provider Role Specialty Phone number Jayjay Ortiz MD Referring Cardiology [phone] Chavo Cavanaugh is a 43 year old year old [...] warfarin instructions: 7.5 mg every day Sent [employer] message Advised patient to continue current weekly dose as noted above Next home INR check scheduled on 04/08/2024 Diana Garcia [facility] Clinical Pharmacist, Pharmacy Anticoagulation Clinic Pharmacy Anticoagulation Clinic Pager: [phone]. PAC received faxed outside lab/home meter result [...] 1.2 03/02/2024 1.2 03/01/2024 1.3 Maine Paz ([employer]) documented in this encounter [facility] 03-24-2024 Telephone encounter Note PAC received [...] 1.2 03/02/2024 1.2 03/01/2024 1.3 Maine Paz ([employer]) [facility] 03-22-2024 Telephone encounter Note LEFT MESSAGE TO SCHEDULE SX WITH DR. HAMMOND [facility] 03-22-2024 Miscellaneous Notes LEFT MESSAGE TO SCHEDULE SX WITH DR. HAMMOND documented in this encounter [facility] 03-17-2024 Telephone encounter Note [facility] Ambulatory Pharmacy Anticoagulation Clinic Anticoagulation Episode Summary Anticoagulation Care Providers Provider Role Specialty Phone number Jayjay Ortiz MD Referring Cardiology [phone] Chavo Cavanaugh is a 43 year old year old [...] warfarin instructions: 7.5 mg every day Sent [employer] message Advised patient to continue current weekly dose as noted above Next home INR check scheduled on 03/31/2024 Patient verbalizes understanding of the plan. Patient denies need for refills. Camryn Markham RPh Clinical Pharmacist, Pharmacy Anticoagulation Clinic Pharmacy Anticoagulation Clinic Pager: [phone]. [facility] 03-17-2024 Miscellaneous Notes [facility] Ambulatory Pharmacy Anticoagulation Clinic Anticoagulation Episode Summary Anticoagulation Care Providers Provider Role Specialty Phone number Jayjay Ortiz MD Referring Cardiology [phone] Chavo Cavanaugh is a 43 year old year old [...] warfarin instructions: 7.5 mg every day Sent [employer] message Advised patient to continue current weekly dose as noted above Next home INR check scheduled on 03/31/2024 Patient verbalizes understanding of the plan. Patient denies need for refills. Camryn Markham RPh Clinical Pharmacist, Pharmacy Anticoagulation Clinic Pharmacy Anticoagulation Clinic Pager: [phone]. Received fax from MDMONETR with INR results for patient. Patient tested on 03/16/2024 and the INR result was 2.7. Fax can be found under scanned documents as miscellaneous lab result. It may take a few minutes to transfer from [employer]. PT INR (no units) Date Value 03/16/2024 2.7 02/17/2024 1.8 mdinr 02/08/2024 3.6 mdINR INR (no units) Date Value 03/03/2024 1.2 03/02/2024 1.2 03/01/2024 1.3 Bernardo Zamora, Head Of Conservation (scutcher tender) Pharmacy Anticoagulation Clinic documented in this encounter [facility] 03-17-2024 Telephone encounter Note Received fax from MDINR [...] 1.2 03/02/2024 1.2 03/01/2024 1.3 Bernardo Zamora, Head Of Conservation (scutcher tender) Pharmacy Anticoagulation Clinic [facility] 03-16-2024 History of Present illness Narrative [...] others. I have seen and examined Chavo Cavanaugh. I have discussed the case and the management of this patient's care with the Resident/Fellow, if applicable. I also have reviewed and agree with the assessment and plan as stated above and agree with all of its relevant components. Tri Hammond MD documented in this encounter [facility] 03-10-2024 Telephone encounter Note Chavo Cavanaugh was called and reminded to test INR today or as soon as possible. LVMX - VM was self identifiable. Sharon Mejia RPh [facility] Work Phone: 03-10-2024 Miscellaneous Notes Chavo Cavanaugh was called and reminded to test INR [...] Advised pt to Call Coumadin Clinic at [phone] to confirm and if needed to discuss further Milla Douglas PharmD documented in this encounter [facility] 03-07-2024 History of Present illness Narrative TRANSITION CARE MANAGEMENT (TCM) FOLLOW-UP NOTE Provider Rowdy/RASHARD Cook sent to [facility] 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 Pool PCP TCM follow up scheduled: 03/24/2024 Unable to reach patient, left a message. Discharge Network Status: In-Network Discharge SUMMARY: Pt discharged from main [facility] on Admitted for: marginal ulcer Carolina Glover RN March 07, 2024 2:54 PM documented in this encounter [facility] 03-03-2024 Telephone encounter Note Called pt and left a vmx re: d/c today. Pt was started on cytotec, this does not typically interact with warfarin. Advised for pt to follow post d/c instructions on warfarin and test on 03/08. Advised pt to Call Coumadin Clinic at [phone] to confirm and if needed to discuss further Milla Douglas PharmD [facility] 02-29-2024 Telephone encounter Note Patient reports N/V on Thursday that had subsided over the weekend. N/V recurred today, emesis x 8 times today, unable to tolerate liquids, emesis brown/black in color. Denies abdominal pain. Advised to present to ED for evaluation. Carlos Jarrell General Surgery PGY-5 [facility] Work Phone: 02-29-2024 Miscellaneous Notes Patient reports N/V on Thursday that had subsided over the weekend. N/V recurred today, emesis x 8 times today, unable to tolerate liquids, emesis brown/black in color. Denies abdominal pain. Advised to present to ED for evaluation. Carlos Jarrell General Surgery PGY-5 documented in this encounter [facility] 02-29-2024 Telephone encounter Note Pt stated she had gastric bypass may of last year and she is vomit today (and the other day) brown liquid and nausea. Conference pt to the [facility] typecasting machine operator for payroll administrative assistant with paging the on-call provider for Dr. Mercer. GO TO THE EMERGENCY ROOM OR CALL 911 IF: * You develop any new symptoms * Your condition worsens * You are concerned or anxious about your condition for any other reason. If you have any questions, you can call Nurse phonograph needle tip maker back. [facility] 02-29-2024 Miscellaneous Notes Pt stated she had gastric bypass may of last year and she is vomit today (and the other day) brown liquid and nausea. Conference pt to the [facility] typecasting machine operator for payroll administrative assistant with paging the on-call provider for Dr. Mercer. GO TO THE EMERGENCY ROOM OR CALL 911 IF: * You develop any new symptoms * Your condition worsens * You are concerned or anxious about your condition for any other reason. If you have any questions, you can call Nurse phonograph needle tip maker back. documented in this encounter [facility] 02-25-2024 History of Present illness Narrative Virtual Visit (Audio/Visual)I have discussed the nature of this visit with the patient which will occur via [employer] (Phone, Virtual Visit) and she agrees to proceed with this interaction. I have communicated my name and active licensure. The patient's identity and physical location were verified at the time of this visit. Either the patient or their legal entry level marketing representative has been informed of the risks and benefits of -- and alternatives to -- treatment through a remote evaluation and consents to proceed with the evaluation remotely. Name: Chavo Cavanaugh Index Surgery Date of Surgery: 02/18/2023 Surgeon: Surgical Procedure: Lap RYGB Pre-surgical weight: 118.8 kg (262 lb) Override Index Surgery Information? No Other Bariatric Surgeries None Visit: 12 months Today's Visit: Wt 68.5 kg (151 lb) BMI 22.96 kg/m2 BMI 22.96 kg/(m^2) Last Visit: Wt: 70.6 kg (155 lb 9.6 oz) BMI: 23.66 kg/(m^2) Total weight loss: 50.3 kg (111 lb) [place] weight: 74.6 kg (164 lb 7 oz) [...] Clinical summary Obesity, Class I, BMI 30-34.9 USP (current) use of anticoagulants S/P gastric bypass History of atrial fibrillation QUINTON (obstructive sleep apnea) Metabolic syndrome Pre-diabetes Vitamin D deficiency, unspecified Patient under care of multiple providers Paroxysmal atrial fibrillation (HCC) Class 3 severe obesity due to excess calories without serious comorbidity with body mass index (BMI) of 45.0 to 49.9 in adult ([facility]) Dilated cardiomyopathy (HCC) Left bundle branch block Summary Acute on chronic diastolic (congestive) heart failure ([facility]) Pre-op testing Discharge planning issues ICD (implantable cardioverter-defibrillator) in place Ijdgq-Aeouhenrz-Ciigp (WPW) syndrome Body mass index 40.0-44.9, adult (HCC) Atrial fibrillation (HCC) HOCM (hypertrophic obstructive cardiomyopathy) ([facility]) S/P ablation of accessory bypass tract Syncope Ventricular tachyarrhythmia ([facility]) Palpitation Vaginal high risk HPV DNA test [...] Alec Nation APRN.GENIE documented in this encounter [facility] 02-18-2024 Telephone encounter Note [facility] Ambulatory Pharmacy Anticoagulation Clinic Anticoagulation Episode Summary Anticoagulation Care Providers Provider Role Specialty Phone number Jayjay Ortiz MD Referring Cardiology [phone] Chavo Cavanaugh is a 43 year old year old [...] Advised pt to Call Coumadin Clinic at [phone] to confirm dosing and follow-up Milla Douglas RPh Clinical Pharmacist, Pharmacy Anticoagulation Clinic Pharmacy Anticoagulation Clinic Pager: [phone]. [facility] 02-18-2024 Miscellaneous Notes [facility] Ambulatory Pharmacy Anticoagulation Clinic Anticoagulation Episode Summary Anticoagulation Care Providers Provider Role Specialty Phone number Jayjay Ortiz MD Referring Cardiology [phone] Chavo Cavanaugh is a 43 year old year old [...] unspecified type (hcc) Paroxysmal atrial fibrillation (hcc) USP (current) use of anticoagulants Anticoagulation Episode Summary [...] Advised pt to Call Coumadin Clinic at [phone] to confirm dosing and follow-up Milla Douglas RPh Clinical Pharmacist, Pharmacy Anticoagulation Clinic Pharmacy Anticoagulation Clinic Pager: [phone]. Received fax from [employer] with INR results for patient. Patient tested on 02/17/2024 and the INR result was 1.8. Fax can be found under scanned documents as miscellaneous lab result. It may take a few minutes to transfer from [employer]. PT INR (no units) Date Value 02/17/2024 1.8 inpercy 02/08/2024 3.6 INR 01/20/2024 2.6 tony Zamora, Head Of Conservation (scutcher tender) Pharmacy Anticoagulation Clinic documented in this encounter [facility] 02-18-2024 Telephone encounter Note Received fax from [facility] with INR results for patient. Patient tested on 02/17/2024 and the INR result was 1.8. Fax can be found under scanned documents as miscellaneous lab result. It may take a few minutes to transfer from [employer]. PT INR (no units) Date Value 02/17/2024 1.8 mdinr 02/08/2024 3.6 mdINR 01/20/2024 2.6 mdinr Bernardo Zamora, Head Of Conservation (scutcher tender) Pharmacy Anticoagulation Clinic [facility] 02-09-2024 Telephone encounter Note [facility] Ambulatory Pharmacy Anticoagulation Clinic Anticoagulation Episode Summary Anticoagulation Care Providers Provider Role Specialty Phone number Jayjay Ortiz MD Referring Cardiology [phone] Chavo Cavanaugh is a 43 year old year old [...] Pharmacy Anticoagulation Clinic Pharmacy Anticoagulation Clinic Pager: [phone]. [facility] 02-09-2024 Miscellaneous Notes [facility] Ambulatory Pharmacy Anticoagulation Clinic Anticoagulation Episode Summary Anticoagulation Care Providers Provider Role Specialty Phone number Jayjay Ortiz MD Referring Cardiology [phone] Chavo Cavanaugh is a 43 year old year old [...] Pharmacy Anticoagulation Clinic Pharmacy Anticoagulation Clinic Pager: [phone]. PAC received faxed outside lab/home meter result for patient from 02/07. Results have been scanned into patient's chart and are located under 'Scanned Documents'. Please note, may take up to 10 minutes for document to transfer from [employer] to [facility]. PT INR (no units) Date Value 02/08/2024 3.6 mdINR 01/20/2024 2.6 mdinr 01/14/2024 2.7 mdINR Maine Paz CPhT (Head Of Conservation) Pharmacy Anticoagulation Clinic documented in this encounter [facility] 02-09-2024 Telephone encounter Note PAC received faxed outside lab/home meter result for patient from 02/07. Results have been scanned into patient's chart and are located under 'Scanned Documents'. Please note, may take up to 10 minutes for document to transfer from [employer] to [facility]. PT INR (no units) Date Value 02/08/2024 3.6 mdINR 01/20/2024 2.6 mdinr 01/14/2024 2.7 mdINR Maine Paz CPhT (Head Of Conservation) Pharmacy Anticoagulation Clinic [facility] 02-04-2024 Note SUBQ ICD EVALUATION: PRESENTING: SR BATTERY STATUS: Remaining battery life to SYDNEY is 70% ELECTRODE: OK. ARRHYTHMIAS: There have not been any ventricular detections or therapy delivered since the last evaluation. SMART PASS: ON FOLLOW UP: Continue remote transmissions every 3 months and yearly in-clinic visits. Penelope Lenz RN NOTE TO PROVIDERS: CARD Flowsheets contain detailed device programming and testing data. Paceart/Interrogation PDF can be found under CARDIAC DATA AND REPORT, Scanned Documents section. [facility] 01-20-2024 Miscellaneous Notes [facility] Ambulatory Pharmacy Anticoagulation Clinic Anticoagulation Episode Summary Anticoagulation Care Providers Provider Role Specialty Phone number Jayjay Ortiz MD Referring Cardiology [phone] Chavo Cavanaugh is a 43 year old year old [...] unspecified type (hcc) Paroxysmal atrial fibrillation (hcc) USP (current) use of anticoagulants Anticoagulation Episode Summary Current INR goal: 2.0-3.0 Assessment: INR result of 2.6 is therapeutic Plan: Current Warfarin Dosing As of 01/20/2024 Full warfarin instructions: 7.5 mg every day Sent [employer] message Advised patient to continue current weekly dose as noted above Next home INR check scheduled on 02/03/2024 Milla Douglas RPh Clinical Pharmacist, Pharmacy Anticoagulation Clinic Pharmacy Anticoagulation Clinic Pager: [phone]. Received fax from INR with INR results for patient. Patient tested on 01/20/2024 and the INR result was 2.6. Fax can be found under scanned documents as miscellaneous lab result. [facility] a [facility]R (no units) Date Value 01/20/2024 2.6 inpercy 01/14/2024 2.7 mdINR 01/01/2024 2.5 mdinr Bernardo Zamora, Head Of Conservation (scutcher tender) Pharmacy Anticoagulation Clinic documented in this encounter [facility] 01-14-2024 Miscellaneous Notes [facility] Ambulatory Pharmacy Anticoagulation Clinic Anticoagulation Episode Summary Anticoagulation Care Providers Provider Role Specialty Phone number Jayjay Ortiz MD Referring Cardiology [phone] Chavo Cavanaugh is a 43 year old year old [...] warfarin instructions: 7.5 mg every day Sent [employer] message Advised patient to continue current weekly dose as noted above Next home INR check scheduled on 01/29/2024 Milla Douglas [facility] Clinical Pharmacist, Pharmacy Anticoagulation Clinic Pharmacy Anticoagulation Clinic Pager: [phone]. PAC received faxed outside lab/home meter result for patient from 01/13. Results have been scanned into patient's chart and are located under 'Scanned Documents'. Please note, may take up to 10 minutes for document to transfer from [employer] to [facility]. PT INR (no units) Date Value 01/14/2024 2.7 mdINR 01/01/2024 2.5 mdinr 12/23/2023 3.7 MDINR Maine Paz CPhT (Head Of Conservation) Pharmacy Anticoagulation Clinic documented in this encounter [facility] 01-14-2024 History of Present illness Narrative Name: Chavo Cavanaugh Index Surgery Date of Surgery: 2022 Surgeon: Ruslan Surgical Procedure: Lap RYGB Pre-surgical weight: 118.8 kg (262 lb) Other Bariatric Surgeries None Visit: 1 year Today's Visit: BP 93/60 Pulse 46 Ht 5' 7.992 (1.73m) Wt 155 lb 9.6 oz (70.6kg) LMP 01/06/2012 BMI 23.66 kg/(m^2). BMI 23.66 kg/(m^2) Last Visit: Wt: 71.7 kg (158 lb) BMI: 24.02 kg/(m^2) Total weight loss: 104 pounds [place] weight: 74.6 kg (164 lb 7 oz) [...] Clinical summary Obesity, Class I, BMI 30-34.9 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 anticoagulants S/P gastric bypass [...] planning issues ICD (implantable cardioverter-defibrillator) in place Uwbfs-Vbgldhmxy-Fevjf (WPW) syndrome Body mass index 40.0-44.9, adult (HCC) Atrial fibrillation (HCC) HOCM (hypertrophic obstructive cardiomyopathy) ([facility]) S/P ablation of accessory bypass tract Syncope [...] Mercer MD 01/14/2024 documented in this encounter [facility] 12-28-2023 History of Present illness Narrative Images from the original note were not included. [facility] [place] [facility] Department of Cardiovascular Medicine SECTION OF CARDIAC PACING and ELECTROPHYSIOLOGY OUTPATIENT VISIT DATE December 28, 2023 OUTPATIENT VISIT TYPE ESTABLISHED PRIMARY CARE PHYSICIAN: Kylah Palma [address] [place] [address] REFERRING PHYSICIAN: No referring provider defined for this encounter. CHIEF COMPLAINT: VT IMPRESSION/PLAN: Chavo Cavanaugh is a very pleasant female patient with [...] locally or systemically. 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 Cardioverted with 150j under sedation DEFIBRILLATOR SURGERY 02/24/2014 ICD, redo WPW & atrial fib ablation EPS: DEFIB. SURGERY 05/16/2021 Exchange of a [employer] SQ-RX 1010 pulse generator with a BOSTON [...] HOCM s/p ICD None Maternal Grandfather age 46-suddenly Heart Maternal Grandmother [place] age 72 Alcohol/Drug Paternal Grandfather ETOH Diabetes [...] Pulse (!) 46 Ht 172.7 cm (5' 8) Wt 71.7 kg (158 lb) LMP 01/06/2012 [...] change. This note was created using computerized pharm tech software and may therefore include some pharm tech errors including errors in gender and inappropriate words or phrases. I reviewed old records, obtained relevant HPI and PMH from the pt, examined the patient and created the above report. Oneyda Recinos MD December 28, 2023 Note to: Primary Care Physician Kylah Palma [address] [place] [address] Jayjay Ortiz MD [id number] [facility] [id number] documented in this encounter [facility] 12-23-2023 Miscellaneous Notes [facility] Ambulatory Pharmacy Anticoagulation Clinic Anticoagulation Episode Summary Anticoagulation Care Providers Provider Role Specialty Phone number Jayjay Ortiz MD Referring Cardiology [phone] Chavo Cavanaugh is a 43 year old year old [...] Pharmacy Anticoagulation Clinic Pharmacy Anticoagulation Clinic Pager: [phone]. Received fax from [facility]ON[facility] with INR results for patient. Patient tested on 12/23/2023 and the INR result was 3.7. Fax can be found under scanned documents as miscellaneous lab result. It may take a few minutes to transfer from [employer]. PT INR (no units) Date Value 12/23/2023 3.7 MDINR 12/16/2023 2.3 mdINR 12/10/2023 1.2 mdINR Bernardo Zamora, Head Of Conservation (scutcher tender) Pharmacy Anticoagulation Clinic documented in this encounter [facility] 12-16-2023 Miscellaneous Notes [facility] Ambulatory Pharmacy Anticoagulation Clinic Anticoagulation Episode Summary Anticoagulation Care Providers Provider Role Specialty Phone number Jayjay Ortiz MD Referring Cardiology [phone] Chavo Cavanaugh is a 43 year old year old [...] Indication for Warfarin: Paroxysmal atrial fibrillation (hcc) USP (current) use of anticoagulants Atrial fibrillation, unspecified type (hcc) Anticoagulation Episode Summary Current INR goal: 2.0-3.0 Assessment: INR result of 2.3 mdinr is therapeutic Plan: Current Warfarin Dosing As of 12/16/2023 Full warfarin instructions: 7.5 mg every day Left voice message and sent [employer] message Advised patient to continue current weekly dose as noted above Next home INR check scheduled on 12/23/2023 Milla Douglas RPh Clinical Pharmacist, Pharmacy Anticoagulation Clinic Pharmacy Anticoagulation Clinic Pager: [phone]. PAC received faxed outside lab/home meter result for patient from 12/15. Results have been scanned into patient's chart and are located under 'Scanned Documents'. Please note, may take up to 10 minutes for document to transfer from [employer] to [facility]. PT INR (no units) Date Value 12/16/2023 2.3 mdINR 12/10/2023 1.2 Tony 12/03/2023 2.3 Tony Paz CPhT (Head Of Conservation) Pharmacy Anticoagulation Clinic documented in this encounter [facility] 12-15-2023 Miscellaneous Notes Patient has been [...] you. Ly Madrigal. documented in this encounter [facility] 12-14-2023 Miscellaneous Notes Left pt a VM message with the same information below again and requesting her to call our clinic at [phone]. Scooby Del Cid [facility] Left pt a VM message with the same information below again and requesting her to call our clinic at [phone]. Will also send a [employer] message. PATIENT CALL Received call from Belia with Tony to report home meter result for patient. [facility] has already addressed this result (see below); nothing further needed at this time. [place] Paz CPhT (Head Of Conservation) Pharmacy Anticoagulation Clinic [facility] Ambulatory Pharmacy Anticoagulation Clinic Anticoagulation Episode Summary Anticoagulation Care Providers Provider Role Specialty Phone number Jayjay Ortiz MD Referring Cardiology [phone] Chavo Cavanaugh is a 43 year old year old [...] 12/10/2023 Full warfarin instructions: 12/09: 10 mg; 3: 10 mg; Otherwise 7.5 mg every day Left voice message Advised patient to increase dose for 2 days and call us back to discuss further dosing Milla Douglas RPh Clinical Pharmacist, Pharmacy Anticoagulation Clinic Pharmacy Anticoagulation Clinic Pager: [phone]. PAC received faxed outside lab/home meter result for patient from 12/09. Results have been scanned into patient's chart and are located under 'Scanned Documents'. Please note, may take up to 10 minutes for [facility]. PT INR (no units) Date Value 12/10/2023 1.2 mdINR 12/03/2023 2.3 mdINR 11/28/2023 2.3 mdINR Maine Paz CPhT (Head Of Conservation) Pharmacy Anticoagulation Clinic documented in this encounter [facility] 12-07-2023 Miscellaneous Notes Patient calls and states that she currently is at pharmacy. Medication was never sent to pharmacy. Patient has not had any medication for a couple of days. Please review and advise, Camilla Dinero RN documented in this encounter [facility] 12-03-2023 Miscellaneous Notes [facility] Ambulatory Pharmacy Anticoagulation Clinic Anticoagulation Episode Summary Anticoagulation Care Providers Provider Role Specialty Phone number Jayjay Ortiz MD Referring Cardiology [phone] Chavo Cavanaugh is a 43 year old year old [...] warfarin instructions: 7.5 mg every day Sent [employer] message Advised patient to continue current weekly dose as noted above Next home INR check scheduled on 12/10/2023 Jackie Estrada [facility] Clinical Pharmacist, Pharmacy Anticoagulation Clinic Pharmacy Anticoagulation Clinic Pager: [phone]. PAC received faxed outside lab/home meter result for patient from . Results have been scanned into patient's chart and are located under 'Scanned Documents'. Please note, may take up to 10 minutes for document to transfer from [employer] to [facility]. PT INR (no units) Date Value 12/03/2023 2.3 mdINR 11/28/2023 2.3 mdINR 11/18/2023 2.0 mdINR Maine Paz CPhT (Head Of Conservation) Pharmacy Anticoagulation Clinic documented in this encounter [facility] 12-03-2023 Miscellaneous Notes Patient has been [...] Robert Snow LPN. documented in this encounter [facility] 11-19-2023 Miscellaneous Notes [facility] Ambulatory Pharmacy Anticoagulation Clinic Anticoagulation Episode Summary Anticoagulation Care Providers Provider Role Specialty Phone number Jayjay Ortiz MD Referring Cardiology [phone] Chavo Cavanaugh is a 43 year old year old [...] warfarin instructions: 7.5 mg every day Sent [employer] message Advised patient to continue current weekly dose as noted above Next home INR check scheduled on 12/03/23 Jackie Estrada RPh Clinical Pharmacist, Pharmacy Anticoagulation Clinic Pharmacy Anticoagulation Clinic Pager: [phone]. PAC received faxed outside lab/home meter result for patient from 11/18. Results have been scanned into patient's chart and are located under 'Scanned Documents'. Please note, may take up to 10 minutes for document to transfer from [employer] to [employer]. PT INR (no units) Date Value 11/18/2023 2.0 mdINR 11/12/2023 2.4 mdINR 11/04/2023 2.2 MDINR Maine Paz CPhT (Head Of Conservation) Pharmacy Anticoagulation Clinic documented in this encounter [facility] 11-12-2023 Miscellaneous Notes [employer] message sent Milla Douglas PharmD PAC received faxed outside lab/home meter result for patient from 11/12. Results have been scanned into patient's chart and are located under 'Scanned Documents'. Please note, may take up to 10 minutes for document to transfer from [employer] to [employer]. PT INR (no units) Date Value 11/12/2023 2.4 mdINR 11/04/2023 2.2 MDINR 10/28/2023 4.1 MDINR Maine Paz CPhT (Head Of Conservation) Pharmacy Anticoagulation Clinic documented in this encounter [facility] 11-11-2023 History of Present illness Narrative Radiology Service Progress Note PATIENT NAME: Chavo Cavanaugh DATE OF SERVICE: November 11, 2023 TIME: [...] PATIENT PRESENTS WITH AN IMPLANTABLE OR ATTACHED IMPLEMENTATION ANALYST: Yes Other ICD RADIOLOGY DEPARTMENT: Mammography PERIPHERAL IV DATA: Not applicable SIGNED BY: WILFRED Andrea November 11, 2023 10:00 AM documented in this encounter [facility] 09-11-2023 Miscellaneous Notes Patient returned call [...] with Rojas Palma. documented in this encounter [facility] 09-11-2023 History of Present illness Narrative This note was created using NoteWriter. Subjective Chavo Cavanaugh is a 43 year old female. 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 Cardioverted with 150j under sedation DEFIBRILLATOR SURGERY 02/24/2014 ICD, redo WPW & atrial fib ablation EPS: DEFIB. SURGERY 05/16/2021 Exchange of a [employer] SQ-RX 1010 pulse generator with a BOSTON [...] HOCM s/p ICD None Maternal Grandfather age 46-suddenly Heart Maternal Grandmother [place] age 72 Alcohol/Drug Paternal Grandfather ETOH Diabetes [...] Natalya Ramos PA-C documented in this encounter [facility] 09-11-2023 History of Present illness Narrative Radiology Service Progress Note PATIENT NAME: Chavo Cavanaugh DATE OF SERVICE: September 11, 2023 TIME: [...] 2023 1:24 PM documented in this encounter [facility] 09-09-2023 Miscellaneous Notes [facility] Ambulatory Pharmacy Anticoagulation Clinic Anticoagulation Episode Summary Anticoagulation Care Providers Provider Role Specialty Phone number Jayjay Ortiz MD Referring Cardiology [phone] Chavo Cavanaugh is a 43 year old year old [...] Indication for Warfarin: Paroxysmal atrial fibrillation (hcc) USP (current) use of anticoagulants Atrial fibrillation, unspecified type (hcc) Anticoagulation Episode Summary Current INR goal: 2.0-3.0 Assessment: INR result of 1.8 mdinr is SUBtherapeutic due to: unknown cause - did not speak to patient Plan: Current Warfarin Dosing As of 09/09/2023 Full warfarin instructions: 09/09: 7.5 mg; Otherwise 7.5 mg every e, Diane, Sat; 5 mg all other days Left voice message And sent [employer] message Advised patient to increase total weekly regimen Next home INR check scheduled on 09/16/2023 Advised pt to Call Coumadin Clinic at [phone] to confirm dosing and follow-up Milla Douglas RPh Clinical Pharmacist, Pharmacy Anticoagulation Clinic Pharmacy Anticoagulation Clinic Pager: [phone]. PAC received faxed outside lab/home meter result for patient from 09/09. Results have been scanned into patient's chart and are located under 'Scanned Documents'. Please note, may take up to 10 minutes for document to transfer from [employer] to [facility]. PT INR (no units) Date Value 09/09/2023 1.8 mdINR 09/01/2023 1.3 MDINR 08/20/2023 1.6 mdINR Maien Paz CPhT (Head Of Conservation) Pharmacy Anticoagulation Clinic documented in this encounter [facility] 09-08-2023 Telephone encounter Note Patient due to test INR today. Will continue to monitor for results. Milla Douglas RPh [facility] 09-08-2023 Miscellaneous Notes Patient due to test INR today. Will continue to monitor for results. Milla Douglas RPh documented in this encounter [facility] 09-02-[address] - 09/02/2023 11:17 AM EST 1. [...] with Iron 45 mg and calcium citrate 5446-9431 mg/day (3 soft chews), biotin, VitD, and [...] should last 30 minutes. 7. Aim for 1288-3914 calories and 50-75 gm carbs per day Nutrition Monitoring & Evaluation: Maintain BMI < 30 Need for Follow up: Need Post-Op Medicine visit [facility], for Nutrition 3 or 6 months, [phone] documented in this encounter [facility] 09-02-2023 History of Present illness Narrative [facility] Nutrition Therapy: Virtual Consult - Re-assessment I have communicated my name and active licensure. The patient s identity and physical location were verified at the time of this visit. Either the patient or their legal entry level marketing representative has been informed of the risks [...] with Iron 45 mg and calcium citrate 1256-0430 mg/day (3 soft chews), biotin, VitD, and [...] should last 30 minutes. 7. Aim for 9570-9082 calories and 50-75 gm carbs per day Nutrition Monitoring & Evaluation: Maintain BMI < 30 Need for Follow up: Need Post-Op Medicine visit [facility], for Nutrition 3 or 6 months, [phone] PROGRESS: Interval History: Patient presents for follow-up [...] Rate: 1508 Energy needs for weight maintenance: 9015-4375 (20-25 antonietta/kg current weight) Protein needs: 89 [...] Readings: Date: Ht: 07/16/2023 172.7 cm (5' 8) Weight: Last 1 Encounter Wt Readings: Date: [...] SIGNATURE: Karen Garrett RD PATIENT NAME: Chavo Cavanaugh DATE: 09/02/2023 TIME: 10:50 AM PAGER: [phone] documented in this encounter [facility] 09-02-2023 Miscellaneous Notes [facility] Ambulatory Pharmacy Anticoagulation Clinic Anticoagulation Episode Summary Anticoagulation Care Providers Provider Role Specialty Phone number Jayjay Ortiz MD Referring Cardiology [phone] Chavo Cavanaugh is a 43 year old year old [...] unspecified type (hcc) Paroxysmal atrial fibrillation (hcc) USP (current) use of anticoagulants Anticoagulation Episode Summary Current INR goal: 2.0-3.0 Assessment: INR result of 1.3 mdinr is SUBtherapeutic due to: No obvious cause The patient denies liver, green tea, new supplements, an increase in vit K foods, any nutritional drinks such as Ensure/Boost/[employer] Instant Breakfast, a new MVI or change [...] Pharmacy Anticoagulation Clinic Pharmacy Anticoagulation Clinic Pager: [phone]. Received fax from [facility] with INR results for patient. Patient tested on 09/01/2023 and the INR result was 1.3. Fax can be found under scanned documents as miscellaneous lab result. It may take a few minutes to transfer from [employer]. PT INR (no units) Date Value 09/01/2023 1.3 MDINR 08/20/2023 1.6 mdINR 08/13/2023 2.3 MDINR Bernardo Zamora, Head Of Conservation (scutcher tender) Pharmacy Anticoagulation Clinic documented in this encounter [facility] 08-28-2023 Miscellaneous Notes Patient due to test INR today. Will continue to monitor for results. Daphnie Holman RPh documented in this encounter [facility] 08-05-2023 Miscellaneous Notes [facility] Ambulatory Pharmacy Anticoagulation Clinic Anticoagulation Episode Summary Anticoagulation Care Providers Provider Role Specialty Phone number Jayjay Ortiz MD Referring Cardiology [phone] Chavo Cavanaugh is a 43 year old year old [...] unspecified type (hcc) Paroxysmal atrial fibrillation (hcc) USP (current) use of anticoagulants Anticoagulation Episode Summary [...] Advised pt to Call Coumadin Clinic at [phone] to confirm dosing follow-up Milla Douglas RPh Clinical Pharmacist, Pharmacy Anticoagulation Clinic Pharmacy Anticoagulation Clinic Pager: [phone]. documented in this encounter [facility] 07-30-2023 Miscellaneous Notes PAC received faxed outside lab/home meter result for patient from 07/30. Results have been scanned into patient's chart and are located under 'Scanned Documents'. Please note, may take up to 10 minutes for document to transfer from [employer] to [facility]. PT INR (no units) Date Value 07/30/2023 2.0 mdINR 07/21/2023 1.8 mdinr 07/13/2023 1.6 mdINR Maine Paz CPhT (Head Of Conservation) Pharmacy Anticoagulation Clinic documented in this encounter [facility] 07-29-2023 Telephone encounter Note Patient due to test INR today. Will continue to monitor for results. Milla Douglas RPh [facility] 07-29-2023 Miscellaneous Notes Patient due to test INR today. Will continue to monitor for results. Milla Douglas RPh documented in this encounter [facility] 07-22-2023 Miscellaneous Notes [facility] Ambulatory Pharmacy Anticoagulation Clinic Anticoagulation Episode Summary Anticoagulation Care Providers Provider Role Specialty Phone number Jayjay Ortiz MD Referring Cardiology [phone] Chavo Cavanaugh is a 43 year old year old [...] unspecified type (hcc) Paroxysmal atrial fibrillation (hcc) USP (current) use of anticoagulants Anticoagulation Episode Summary [...] information and advised to call PAC at [phone] if any questions or changes to report. Scooby Del Cid RPh Clinical Pharmacist, Pharmacy Anticoagulation Clinic Pharmacy Anticoagulation Clinic Pager: [phone]. Received fax from [facility] with INR results for patient. Patient tested on 07/21/2023 and the INR result was 1.8. Fax can be found under scanned documents as miscellaneous lab result. It may take a few minutes to transfer from [employer]. PT INR (no units) Date Value 07/21/2023 1.8 mdinr 07/13/2023 1.6 mdINR 07/01/2023 2.2 MDINR Bernardo Zamora, Head Of Conservation (scutcher tender) Pharmacy Anticoagulation Clinic Patient due to test INR today. Will continue to monitor for results. Milla Douglas RPh documented in this encounter [facility] 07-16-2023 History of Present illness Narrative Images from the original note were not included. [facility] [place] [facility] Department of Cardiovascular Medicine SECTION OF PREVENTIVE CARDIOLOGY Date: 07/16/2023 Patient: Chavo Cavanaugh : 1980 CHIEF COMPLAINT: Routine follow-up HISTORY OF PRESENT CARDIOVASCULAR ILLNESS: I had the pleasure of seeing Chavo Cavanaugh today in the Preventive Cardiology Clinic for [...] She had lost 50 lbs on the OOL-6-fwpsoxrw agonist. She then had difficulty loosing additional weight, so she has now undergone gastric bypass surgery and has lost a total of 150 lbs/ She continues to follow with Dr. Ortiz. She is currently treated with sotalol 120 mg twice daily and metoprolol 37.5 mg. She is anticoagulated with warfarin. Subjectively, she denies any exertional complaints. She feels fantastic. 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 Cardioverted with 150j under sedation DEFIBRILLATOR SURGERY 02/24/2014 ICD, redo WPW & atrial fib ablation EPS: DEFIB. 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 2017 Guidelines of the [place] [employer] for the Diagnosis and Management [...] FOLLOW UP: I have discussed with Chavo Cavanaugh that I recommend a follow-up visit with me as needed. Noah Vasquez MD, PhD Section of Preventive Cardiology [facility] Department of Cardiovascular Medicine [facility] [place] [address] Office Appointments: [phone] Voice recognition software was used in the creation of this document. There may be unintended errors in spelling, grammar, syntax or punctuation present. documented in this encounter [facility] 07-14-2023 Miscellaneous Notes 3 [facility] Ambulatory Pharmacy Anticoagulation Clinic Anticoagulation Episode Summary Anticoagulation Care Providers Provider Role Specialty Phone number Jayjay Ortiz MD Referring Cardiology [phone] Chavo Cavanaugh is a 43 year old year old [...] unspecified type (hcc) Paroxysmal atrial fibrillation (hcc) USP (current) use of anticoagulants Anticoagulation Episode Summary [...] Advised pt to Call Coumadin Clinic at [phone] to confirm dosing and follow-up Milla Douglas RPh Clinical Pharmacist, Pharmacy Anticoagulation Clinic Pharmacy Anticoagulation Clinic Pager: [phone]. PAC received faxed outside lab/home meter result for patient from 07/13. Results have been scanned into patient's chart and are located under 'Scanned Documents'. Please note, may take up to 10 minutes for document to transfer from [employer] to [facility]. PT INR (no units) Date Value 07/13/2023 1.6 mdINR 07/01/2023 2.2 MDINR 11/17/2019 1.0 INR (no units) Date Value 06/17/2023 1.7 06/01/2023 1.5 05/14/2023 1.4 INR (POCT) (no units) Date Value 05/20/2023 1.3 03/16/2023 1.8 Maien Paz CPhT (Head Of Conservation) Pharmacy Anticoagulation Clinic documented in this encounter [facility] 07-09-2023 Miscellaneous Notes Refill request via fax for Restasis. Order pending if appropriate Refill medication(s) requested: restasis Amount (30 or 90 day supply?) 90 Pharmacy information: [facility] Prescribing physician: WILLIAM Additional info: Patient has prior authorization for medication. Espinoza from 06/07/23 to 07/06/24 documented in this encounter [facility] 07-07-2023 Miscellaneous Notes Initiated prior authorization for Restasis via Cover My Meds. Received approval. Espinoza from 06/07/2023 to 07/06/2024 Shaye Le July 07, 2023 9:52 AM documented in this encounter [facility] 06-05-[address] - 06/05/2023 10:58 AM EDT Reviewed [...] Follow up: 6 months post op, scheduling [phone] documented in this encounter [facility] 09-01-2023 History of Present illness Narrative This visit [...] per day. 3 months post op RYGB ([place] 02/18/23) Net weight loss 79 pounds (279 [...] Rate: 1618 Energy needs for weight loss 8965-7353 kcal/day (15-20 antonietta/kg current weight) Protein needs: [...] Follow up: 6 months post op, scheduling [phone] Appointment Start Time: 9:45am Appointment End Time: 10:24am Time Spent on Consult: 39 minutes - Group Edna Leigh RD documented in this encounter [facility] 06-02-2023 Miscellaneous Notes [facility] Ambulatory Pharmacy Anticoagulation Clinic Anticoagulation Episode Summary Anticoagulation Care Providers Provider Role Specialty Phone number Jayjay Ortiz MD Referring Cardiology [phone] Chavo Cavanaugh is a 42 year old year old [...] Pharmacy Anticoagulation Clinic Pharmacy Anticoagulation Clinic Pager: [phone]. INRs go to pharmacist, In home monitoring. Thanks, Rojas Palma PA-C Current INR: 06/01/23 1.5 Current dose of coumadin is: Post surgery, when approved-advised to restart and increase Warfarin to 5 mg daily Previous INR (date and result): 04/23/23 1.3 Additional Clinical Information or narrative: Confirmed with patient-has been taking 5 MG daily since surgery. documented in this encounter [facility] 06-01-2023 Miscellaneous Notes The following approved medication requests have been transmitted electronically. Requested Prescriptions Signed Prescriptions Disp Refills warfarin (COUMADIN) 5 mg tablet 90 tablet 1 Sig: Take 1 tablet by mouth once daily. Or as directed by anticoagulation clinic. Kylah Palma PA-C\ documented in this encounter [facility] 06-01-2023 Miscellaneous Notes Patient due to test INR today. Will continue to monitor for results. Scooby Del Cid RPh documented in this encounter [facility] 05-15-2023 Miscellaneous Notes [facility] Ambulatory Pharmacy Anticoagulation Clinic Anticoagulation Episode Summary Anticoagulation Care Providers Provider Role Specialty Phone number Jayjay Ortiz MD Referring Cardiology [phone] Chavo Cavanaugh is a 42 year old year old [...] unspecified type (hcc) Paroxysmal atrial fibrillation (hcc) USP (current) use of anticoagulants Anticoagulation Episode Summary [...] Pharmacy Anticoagulation Clinic Pharmacy Anticoagulation Clinic Pager: [phone]. INR is still in process. Pt will be f/u once INR is posted. Pt has a set warfarin dose documented in this encounter [facility] 05-13-2023 Instructions Paola Wylie PA-C - 05/13/2023 11:05 AM EDT PATIENT PREOPERATIVE INSTRUCTIONS No ref. provider found has scheduled you for your procedure at this surgery center: [facility] Scheduling Office: [phone] --[address] [place] [address]. Please read below carefully for your personalized [...] Procedures: - YOU MUST HAVE A RESPONSIBLE FUSING LINE INSPECTOR TAKE YOU HOME. A HEATER HELPER OR SKIP HOIST OPERATOR CANNOT BE MADE A RESPONSIBLE FUSING LINE INSPECTOR. - We recommend that a responsible person [...] call the Thursday before. Your surgeon s carpet installer will tell you what time to call the office. - If you have not reached the departmental carpet installer by 5 P.M., call [phone] after 5 P.M. the day before your surgery. Please be aware that emergency situations arise, which may delay or change your surgical time. If this happens, we will notify you as soon as possible and regret any inconvenience. If you already have an Advance Directive, please fax a copy to [phone] or email to for it to be [...] Paola Wylie PA-C documented in this encounter [facility] 05-13-2023 History and physical note PREANESTHESIA CONSULT CLINIC This is a virtual visit. It required patient-provider interaction for the medical decision making as documented below. Patient has been identified by name and date of : Yes Reason for call: PACC visit Accompanied by: Self Patient name: Chavo Cavanaugh This is a virtual visit using [employer] video visit. It required patient-provider interaction for the medical decision making as documented below. I have communicated my name and active licensure. The patient's identity and physical location were verified at the time of this visit. Either the patient or their legal entry level marketing representative has been informed of the risks [...] Test Positive Palpitation Hocm (Hypertrophic Obstructive Cardiomyopathy) ([facility]) Body Mass Index 40.0-44.9, Adult ([facility]) Atrial Fibrillation ([facility]) Ventricular Tachyarrhythmia ([facility]) Pmjfp-Yzzxanukj-Ymohh (Wpw) Syndrome Thyroid Nodule, Cold Icd (Implantable Cardioverter-Defibrillator) in Place Pre-Op Testing Discharge Planning Issues Clinical summary Acute On Chronic Diastolic (Congestive) Heart Failure (Hcc) Summary Dilated Cardiomyopathy ([facility]) Left Bundle Branch Block Paroxysmal Atrial Fibrillation ([facility]) Class 3 Severe Obesity Due to Excess Calories Without Serious Comorbidity With Body Mass Index (Bmi) of 45.0 to 49.9 in Adult ([facility]) Patient Under Care of Multiple Providers Metabolic Syndrome Pre-Diabetes Vitamin D Deficiency, Unspecified Quinton (Obstructive Sleep Apnea) History of Atrial Fibrillation S/P Ablation of Accessory Bypass Tract Syncope Obesity, Class II, Bmi 35-39.9 S/P Gastric Bypass [facility] (Current) Use of Anticoagulants Obesity, Class I, Bmi 30-34.9 PAST MEDICAL HISTORY Diagnosis Date Atrial fibrillation ([facility]) CHADS score 0 Cardiomyopathy ([facility]) 02/24/14 Family history of hypertrophic cardiomyopathy 01/18/2014 Impaired glucose tolerance 01/21/2011 Left bundle branch block Obesity S/P gastric bypass 02/18/2023 Sleep apnea Ventricular tachyarrhythmia (HCC) 02/2014 Jblam-Ctaevfwgd-Bqlax (WPW) syndrome s/p ablaton 02/2014 and 08/2014 [...] HOCM s/p ICD None Maternal Grandfather age 46-suddenly Heart Maternal Grandmother [place] age 72 Alcohol/Drug Paternal Grandfather ETOH Diabetes [...] bypass Neuro: No history of TIA's, stroke, PAWN SHOP KEEPER tumor, impaired sensorium, hemiplegia, paraplegia or quadraplegia. No neurological symptoms or problems. Respiratory: No history of current cough or dyspnea, or pneumonia in the past 6 weeks. +QUINTON- uses CPAP nightly Cardiovascular: Follows with Dr. Ortiz, last OV 11/25/2022 and per note- IMPRESSION: Ms. Cavanaugh is a 42 year old woman with HCM (with mid-cavitary obstruction) and PAF, that underwent successful myectomy with mitral valve repair with papillary muscle reorientation in 2019. Continued good surgical results. Also with PAF, on Sotalol per EP. Clinically well. Patient denies any recent chest pain, MORENO or palpitations GI: +see HPI +recent gastric bypass 02/2023, down 60 lbs : No history of dysuria, frequency or incontinence,, stones or chronic kidney disease TAXATION ECONOMIST: Negative for abnormal vaginal bleeding, abnormal vaginal [...] itching. PHYSICAL EXAM: VITAL SIGNS: Ht 5' 8 (1.73m) Wt 214 lb (97.1kg) LMP 01/06/2012 [...] 01/07/2021 6.0 04/27/2020 5.7 11/25/2019 5.6 HBA1C, [place] (%) Date Value 11/05/2011 5.4 Most recent labs Assessment/Plan Jdsco-Stjukwrjd-Gdpnd (WPW) syndrome Assessment: s/p ablation 2013 Stable [...] device. I spent more than 30 minutes enst-tb-gsct with the patient and over half the time was devoted to counseling and/or coordination of care. SIGNATURE: Paola Wylie PA-C PATIENT NAME: Chavo Cavanaugh DATE: 05/13/2023 TIME: 10:46 AM PAGER/CONTACT #: documented in this encounter [facility] 05-10-2023 Miscellaneous Notes Patient is on [...] ELIZA Douglas PharmD documented in this encounter [facility] 05-08-2023 Miscellaneous Notes [facility] Ambulatory Pharmacy Anticoagulation Clinic Anticoagulation Episode Summary Anticoagulation Care Providers Provider Role Specialty Phone number Jayjay Ortiz MD Referring Cardiology [phone] Chavo Cavanaugh is a 42 year old year old [...] unspecified type (hcc) Paroxysmal atrial fibrillation (hcc) USP (current) use of anticoagulants Anticoagulation Episode Summary [...] lap vinicio on 05/20; will send to [facility] neighborhood conservation officer to determine perioperative anticoagulation management; patient advised she would be contacted early next week to discuss plan; patient does have around 7 Lovenox injections at home from surgery in February Next lab INR check scheduled on 05/14/2023 Patient verbalizes understanding of the plan. Patient denies need for refills. Next Action for Anti coag Management: [facility] bridge plan Audra Mccollum [facility] Clinical Pharmacist, Pharmacy Anticoagulation Clinic Pharmacy Anticoagulation Clinic Pager: [phone]. documented in this encounter [facility] 05-07-2023 Miscellaneous Notes BMI SPECIALTY CARE COORDINATION TELEPHONE ENCOUNTER Spoke to patient regarding upcoming Lap Vinicio scheduled 05/20/23. Patient is advised the following: Do not wear jewelry, body piercings, makeup, nail malaysian, hairpins, or contacts on the day of surgery. Hold x 7 days prior to procedure:NSAIDS, vitamins, OTC meds. Patient denies use of inhalers or diabetic medications. Patient agreed to contact tele rn regarding Coumadin and ICD. direct sales professional will call the business day before in [...] 2023 4:19 PM documented in this encounter [facility] 05-07-2023 History of Present illness Narrative BARIATRIC AND GENERAL SURGERY VIRTUAL VISIT FOLLOW UP I have communicated my name and active licensure. The patient's identity and physical location were verified at the time of this visit. Either the patient or their legal entry level marketing representative has been informed of the risks and benefits of -- and alternatives to -- treatment through a remote evaluation and consents to proceed with the evaluation remotely. I had a virtual visit with Ms. Cavanaugh today for follow up of gallstones -this [...] Decision Making: Assessment Assessment & Diagnosis: Chavo Cavanaugh is a 42 year old female with a history of hypertrophic cardiomyopathy status post septal cardia myotomy, Gwgkt-Gnsfcvmap-Gjtui and paroxysmal A-fib status post ablation, with persistent A-fib on coumadin. She underwent a Jenny-en-Y gastric bypass on 02/08/2023. Data Reviewed: Tests & Documents Reviewed/ordered: Review of prior notes from ER visit Review of Imaging: Ultrasound Review of Labs: CBC, BMP I have independently interpreted: Ultrasound I have discussed Chavo Cavanaugh's treatment plan and/or results with the patient. [...] which included preparing to see the patient, ihfy-jy-kmjf patient care, completing clinical documentation, obtaining and/or reviewing separately obtained history, counseling and educating the patient/family/caregiver, independently interpreting results (not separately reported), and communicating results to the patient/family/caregiver. Esperanza Mercer MD. 05/07/2023 documented in this encounter [facility] 05-06-2023 Miscellaneous Notes [facility] SPECIALTY CARE COORDINATION TELEPHONE ENCOUNTER Left a message on the patient's voicemail requesting a call back to provided number to discuss scheduling an appointment regarding gall bladder symptoms. Clementina Ny RN May 06, 2023 9:52 AM documented in this encounter [facility] 05-04-2023 Miscellaneous Notes [facility] SPECIALTY CARE COORDINATION TELEPHONE ENCOUNTER Left a [...] 2023 1:59 PM documented in this encounter [facility] 04-17-2023 Miscellaneous Notes Patient returned call [...] or narrative: no documented in this encounter [facility] 04-14-2023 History of Present illness Narrative CMN RECEIVED BY OROS VIA FAX, COMPLETED, AND PLACED IN PROVIDER MAILBOX FOR SIGNATURE Juan Antonio Bower, Administration Assistance 04/14/23 [employer] COMPANY SENDING CMN: Andrey SIGNED AND DATED CMN, FAXED TO DME & CONFIRMATION PAGE RECEIVED: 04/16/23 documented in this encounter [facility] 04-09-2023 Miscellaneous Notes Patient notified she can come in early am which ever day thu/ works for her Orders for standing PT/INR are placed. She can do it what ever day works. Telephone on 04/01/23 PROTHROMBIN TIME/PT Paroxysmal atrial fibrillation (hcc) (primary encounter diagnosis) USP (current) use of anticoagulants Hocm (hypertrophic obstructive cardiomyopathy) (hcc) Icd (implantable cardioverter-defibrillator) in place S/p ablation of accessory bypass tract Thanks, Rojas Palma PA-C Pt notified that she needs to [...] her know. Per 04/03 note, Dear Chavo Cavanaugh, Thank you for testing your INR to [...] your warfarin please call our office at [phone]. Your next INR testing date is 04/17/2023 Have a great day! Scooby Del Cid [facility] Clinical Pharmacist Pharmacy Anticoagulation Clinic Upon further review, patient will need to be on warfarin for at least three months. Patient started 03/10/2023. A RCS PAF was generated and can be found under [facility] list in excel. We can start home INR meter enrollment towards the end of May. Bernardo Zamora Head Of Conservation (scutcher tender) Pharmacy Anticoagulation Clinic Noted. We will need to generate a from from JEANETH/TONY as patient's insurance is not covered with [employer]. Bernardo Zamora Head Of Conservation (scutcher tender) Pharmacy Anticoagulation Clinic Per below- patient requests enrollment in PAC home INR monitoring program. Routing to PAC call center staff to work on enrollment process. Rojas Palma, Lora Paulino, Could you help me enroll this patient in home coumadin monitoring. She wants to change from having to travel [facility]. Thanks much, Rojas documented in this encounter [facility] 03-27-2023 Miscellaneous Notes [facility] Ambulatory Pharmacy Anticoagulation Clinic Anticoagulation Episode Summary Anticoagulation Care Providers Provider Role Specialty Phone number Jayjay Ortiz MD Referring Cardiology [phone] Chavo Cavanaugh is a 42 year old year old [...] Pharmacy Anticoagulation Clinic Pharmacy Anticoagulation Clinic Pager: [phone]. PATIENT CALL Patient called call center regarding results. Patient was on cephalexin from 03/20-03/27 and took last dose this morning. PT INR (no units) Date Value 11/17/2019 1.0 INR (no units) Date Value 03/27/2023 1.5 03/20/2023 2.5 03/13/2023 4.1 INR (POCT) (no units) Date Value 03/16/2023 1.8 Patient can be reached at [phone]. Patient stated MD would be willing to monitor warfarin as patient lives in [place]. She will reach out to MD to place a referral to [place] [facility] where they do fingerstick readings. Patient was agreeable to continue to follow with us and contact us when she is scheduled for coumadin clinic at [place]. Pharm phone call placed. Bernardo Zamora (Inbound Call Center Agent) documented in this encounter [facility] 03-26-2023 History of Present illness Narrative 42 year old female with c/o blood in urine. Has not seen me in over a year Still having symptoms with urinary frequency, 03/20/2023 presented to the medical center clinic with complaint of dysuria over period of 3 weeks. Identified difficulty emptying bladder per notes. Recent gastric bypass 02/18/2023 Dr. Mercer [facility]. Patient identified to provider that she is [...] Abs Lymph 1.00 - 4.00 k/uL 2.14 [place]% % 7.9 Abs [place] <0.87 k/uL 0.49 Eosin% % 5.6 Abs [...] in place Hocm (hypertrophic obstructive cardiomyopathy) (hcc) Iudaz-rzedfloqx-hkyrh (wpw) syndrome Left bundle branch block Ventricular tachyarrhythmia (hcc) Palpitation Chronic anticoagulation Cardiovascular interval hx: Doing really well. Has been seeing preventive cardiology and was placed on semaglutide which is significantly helped weight loss. Patient is exercising routinely and feels that she is gaining strength and durability. 02/18/2023 lap gastric restrictive surg w/bypass Jenny-en Y 150cm or less 01/03/2022 cardiovasc visit GRAIN TRADER Fawn Whiting: Making significant gains, continue semaglutide, [...] Dr. Oneyda Recinos 1st; Dr. Oneyda Plunkett Bow Tacker Dr. Gaston Eller HOCM Dr. Jayjay Ortiz [...] HOCM s/p ICD None Maternal Grandfather age 46-suddenly Heart Maternal Grandmother [place] age 72 Alcohol/Drug Paternal Grandfather ETOH Diabetes Maternal Aunt Diabetes Maternal Uncle Colon Cancer No Family History Anesthesia Problems No Family History PAST MEDICAL HISTORY Diagnosis Date Atrial fibrillation (HCC) CHADS score 0 Cardiomyopathy (HCC) 02/24/14 Family history of hypertrophic cardiomyopathy 01/18/2014 Impaired glucose tolerance 01/21/2011 Left bundle branch block Obesity S/P gastric bypass 02/18/2023 Sleep apnea Ventricular tachyarrhythmia (HCC) 02/2014 Kdjzc-Bpxnsnpzj-Aoxwx (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 Cardioverted with 150j under sedation DEFIBRILLATOR SURGERY 02/24/2014 ICD, redo WPW & atrial fib ablation EPS: DEFIB. SURGERY 05/16/2021 Exchange of a [employer] SQ-RX 1010 pulse generator with a [...] Test Positive Palpitation Hocm (Hypertrophic Obstructive Cardiomyopathy) ([facility]) Body Mass Index 40.0-44.9, Adult ([facility]) Atrial Fibrillation ([facility]) Ventricular Tachyarrhythmia ([facility]) Cyhly-Zfrpovjoh-Myykf (Wpw) Syndrome Thyroid Nodule, Cold Icd (Implantable Cardioverter-Defibrillator) in Place Pre-Op Testing Discharge Planning Issues Clinical summary Acute On Chronic Diastolic (Congestive) Heart Failure ([facility]) Summary Dilated Cardiomyopathy ([facility]) Left Bundle Branch Block Paroxysmal Atrial Fibrillation ([facility]) Class 3 Severe Obesity Due to Excess Calories Without Serious Comorbidity With Body Mass Index (Bmi) of 45.0 to 49.9 in Adult ([facility]) Patient Under Care of Multiple Providers Metabolic Syndrome Pre-Diabetes Vitamin D Deficiency, Unspecified Quinton (Obstructive Sleep Apnea) History of Atrial Fibrillation S/P Ablation of Accessory Bypass Tract Syncope Obesity, Class II, Bmi 35-39.9 S/P Gastric Bypass [facility] (Current) Use of Anticoagulants Current Outpatient Medications [...] (BD POSIFLUSH) 10 mL INTRAVENOUS DIRECTED PRN Jajyay Ortiz MD HEPATITIS B(1 of 3 - [...] ICD10: Z95.810 Stable, follows with cardiology 7. USP (current) use of anticoagulants - ICD9: V58.61, [...] + DIFF - COMP METABOLIC PANEL 13. Vgwkm-Ofndpimid-Ietlq (WPW) syndrome - ICD9: 426.7, ICD10: I45.6 Stable, quiescent Kylah Palma PA-C documented in this encounter [facility] 03-26-2023 Miscellaneous Notes Imported External Health Plan Information from [employer] (dated 03/10/23). Please allow time delay for documents to appear in [employer]. documented in this encounter [facility] 03-24-2023 History of Present illness Narrative Name: Chavo Cavanaugh I have communicated my name and active licensure. The patient's identity and physical location were verified at the time of this visit. Either the patient or their legal entry level marketing representative has been informed of the risks [...] 35.12 kg/(m^2) Total weight loss: 33 lbs [place] weight: 74.6 kg (164 lb 7 oz) [...] she had plan to follow-up with her tele rn regarding her chronic anticoagulation. She has been [...] above. Patient Active Problem List Clinical summary 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 anticoagulants S/P gastric bypass [...] (implantable cardioverter-defibrillator) in place Thyroid nodule, cold Uxfmh-Plhrtydve-Mbqcy (WPW) syndrome Body mass index 40.0-44.9, adult (HCC) Atrial fibrillation (HCC) HOCM (hypertrophic obstructive cardiomyopathy) ([facility]) S/P ablation of accessory bypass tract Syncope Ventricular tachyarrhythmia ([facility]) Palpitation Vaginal high risk HPV DNA test [...] may be moving all coumadin care to [facility] Regular appointment at 3 month time point LABS: Today: none At 6 months: Standard panel Esperanza Mercer MD 03/24/2023 documented in this encounter [facility] 03-21-2023 Miscellaneous Notes Patient given results and verbalized understanding of instructions given. Brandy Rivera Please inform patient that urine culture did not show any growth of bacteria requiring treatment. If symptoms improving complete antibiotic Advise due to blood in the urine that she follow up with PCP for recheck of urine in 1-2 weeks. Klarissa Olivia APRN.GENIE documented in this encounter [facility] 03-20-2023 History of Present illness Narrative This note was created using [employer]. Subjective Chavo Cavanaugh is a 42 year old female. 42 [...] had gastric bypass through Dr. Mercer @ [facility]. February 18. Endorses that she reached out to him, he messaged her that he feels that her symptoms are not related to her recent surgery. He referred her to urology (denies that she has been seen in past). Her urology appt is May. She was instructed to come here for further testing by urology. The history is provided by the patient. No speech and language tutor was used. UTI This is a new [...] 02/18/2023 Sleep apnea Ventricular tachyarrhythmia (HCC) 02/2014 Lmxkn-Kztjeqsoq-Gwtgm (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 Cardioverted with 150j under sedation DEFIBRILLATOR SURGERY 02/24/2014 ICD, redo WPW & atrial fib ablation EPS: DEFIB. SURGERY 05/16/2021 Exchange of a [employer] SQ-RX 1010 pulse generator with a [employer] GASTRIC BYPASS/JENNY-EN-Y 02/18/2023 150cmantecolic jenny, 70cm bp [...] HOCM s/p ICD None Maternal Grandfather age 46-suddenly Heart Maternal Grandmother [place] age 72 Alcohol/Drug Paternal Grandfather ETOH Diabetes [...] Elizabeth Mercado APRN.CNP documented in this encounter [facility] 03-16-2023 History of Present illness Narrative [facility] Ambulatory Pharmacy Anticoagulation Clinic Anticoagulation Episode Summary Anticoagulation Care Providers Provider Role Specialty Phone number Jayjay Ortiz MD Referring Cardiology [phone] Chavo Cavanaugh is a 42 year old year old [...] video You & Your Health: Understanding Warfarin (Coumadin) Yes Patient gives verbal permission to leave [...] items provided Warfarin booklet Understanding your Warfarin Therapy and Vitamin K Chart Plan: Current Warfarin Dosing As of 03/16/2023 Full warfarin instructions: 03/16: 5 mg; 03/17: 2.5 mg; 03/18: 5 mg; 615: 2.5 mg Advised patient to alternate 5mg/2.5mg Next lab INR check scheduled on 03/20/2023 Patient verbalizes understanding of the plan. Patient denies need for refills. Staff Physician onsite: Dr. Alex Del Cid RPh Clinical Pharmacist, Pharmacy Anticoagulation Clinic Pharmacy Anticoagulation Clinic Pager: [phone]. documented in this encounter [facility] 03-12-[address] Ortiz, Thank you for referring Chavo Cavanaugh to the Anticoagulation Clinic for follow up. [...] Department of Pharmacy and member of the [facility]. Under this policy, you agree to maintain a clinical relationship with the patient as defined by Medicare [...] to switch to having her PCP in [place] manage warfarin. Indication: paroxysmal afib Goal INR: 2-3 The expected duration of therapy is Indefinite Preferred location for visits: [facility] Warfarin start date: 03/10 Patient was previously [...] 03/13 Patient scheduled for POCT/New Ed at [facility] on this date: 03/17 - at least now then possibly the lab in [place] after. Patient accepts the warfarin education video. Mode of learning: [employer] video link and POCT Next Action for Anticoag Management: Lab 03/13 = tomorrow. Jennifer Zazueta [facility] PAC received new referral with Lovenox bridging. Next Action for Anti coag Management: [facility] 03/12 Bozena Calloway RN Pharmacy Anticoagulation Clinic Spoke to Basilia from Dr. Ortiz's office in regards to Coumadin Clinic referral. Patient would prefer [place] location. Provided PAC order #[id number] for referral to be placed. Bernardo Zamora, Head Of Conservation (scutcher tender) Pharmacy Anticoagulation Clinic documented in this encounter [facility] 03-10-2023 Miscellaneous Notes Scheduled appointment for 03/17 at 1pm. documented in this encounter [facility] 03-07-2023 Discharge summary Note Date/Time March 07, 2023 9:11p [facility] Medical Records Department [address] [place] [address] Emergency Department Summary 03/07/23 MR#: [id number] Acct: [id number] Name: CHAVO CAVANAUGH Rep #:[id number] : 1980 42 From: [...] hokum, WPW, A-fib [facility] and currently on Lovenox [...] TAD Risk Factors: Negative for Marfan's Syndrome [facility] Medical History (Updated 03/08/23 @ 00:18 by [...] at or below 110. Follow-up with her tele rn to see if they need to adjust [...] % (Auto) 53.2 Lymph % (Auto) 32.6 [place] % (Auto) 8.6 Eos % (Auto) 4.1 [...] rate of 73 no acute signs of IN or ischemia. Left bundle branch block. History [...] problems, contact your Primary Care Provider. Call [facility] ([phone]) or report to the closest Emergency Room. Call 911 if necessary. 03/08/23 0102 <Electronically signed by Luis Vaughn MD> Cosigner Signature (if applicable): CC: HALEY Palma ~ Signed [facility] Work Phone: 1(940) 901-147606-01-2023 History of Present illness Narrative* Esperanza Mercer MD - 03/05/2023 2:00 PM EDT Clinic Date: 03/05/2023 I have communicated my name and active licensure. The patient's identity and physical location wereverified at the time of this visit. Either the patient or their legal entry level marketing representative has been informed of the risks and benefits of -- and alternatives to -- treatment through a remote evaluation andconsents to proceed with the evaluation remotely. Chavo Cavanaugh, 42 year old presents for her initial [...] Height as of 03/04/23: 172.7 cm (5' 8). Weight as of 03/04/23: 106.6 kg (235 lb). [place] weight: 74.6 kg (164 lb 7 oz) [...] (implantable cardioverter-defibrillator) in place Thyroid nodule, cold Coupp-Qkctkllmi-Gnzdx (WPW) syndrome Body mass index 40.0-44.9, adult [...] Esperanza Mercer MD 03/05/2023 [facility] Instructions* Patient Instructions* Karen Garrett, RD - 03/04/2023 12:48 PM EDT 1. [...] at 1 month) The [facility] [place] [facility] has 2 virtual support group meetings: This is the [employer] [place] link with meeting number that will be used for all of the THURSDAY virtual support groups this year, on the Thursday of each month 5:30-6:30PM Join from the meeting link [email or web address] Join by meeting number Meeting number (access code): [phone] Meeting password: [email or web address] The schedule with dates, times, topics, and facilitators can be found here: [email or web address] This is the [employer] [place] link with meeting number that will be used for the Open Discussion (Food for Thought) support group on the Thursday of each month 5:30-6:30PM Join from the meeting link [email or web address] Join by meeting number Meeting number (access code): [phone] Meeting password: [email or web address] Hope to see you there! Nutrition Monitoring & Evaluation: Advance diet to phase 3 by next visit Criteria: patient recall Need for Follow up: 1 month post op [facility] History of Present illness Narrative* Karen Garrett RD - 03/04/2023 11:45 AM EDT This [...] visit. Either the patient or their legal entry level marketing representative has been informed of the risks [...] at 1 month) The [facility] [place] at [facility] has 2 virtual support group meetings: This is the [employer] [place] link with meeting number that will be used for all of the THURSDAY virtual support groups this year, on the Thursday of each month 5:30-6:30PM Join from the meeting link [email or web address] Join by meeting number Meeting number (access code): [phone] Meeting password: [email or web address] The schedule with dates, times, topics, and facilitators can be found here: [email or web address] This is the [employer] [place] link with meeting number that will be used for the Open Discussion (Food for Thought) support group on the Thursday of each month 5:30-6:30PM Join from the meeting link [email or web address] Join by meeting number Meeting number (access code): [phone] Meeting password: [email or web address] Hope to see you there! Nutrition Monitoring & Evaluation: Advance diet to phase 3 by next visit Criteria: patient recall Need for Follow up: 1 month post op Appointment Start Time: 11:45 AM Appointment End Time: 12:35 PM Time Spent on Consult: 50 minutes - Group Karen Garrett RD [facility] History of Present illness Narrative* Amy Alvarado APRN.WATER RESOURCE PROJECT MANAGER - 02/04/2023 1:30 PM EDT Images from the original note were not included. 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 - Will start Auto CPAP 4-8 cmH2O with a Nasal pillows mask. - I will have a prescription sent to a [employer] ([employer]) company - [employer] who will be calling you in the next 1-2 weeks or so. Please call them directly or us if you do not hear from them in this time frame. - You should be eligible for new supplies approximately every 3-6 months, depending on your insurance coverage. - If your mask doesn't fit well, call the [employer] company before 30 days are up to get a new mask without an additional charge. - Insurance requires regular usage and periodic office follow ups for PAP therapy, to continue to cover supplies. INSURANCE REQUIREMENTS: - Your insurance requires a [id number] follow up visit within a 31-90 day [...] and Patient location Home location in the [facility] I have communicated my name and active licensure. The patient's identity and physical location wereverified at the time of this visit. Either the patient or their legal entry level marketing representative has been informed of the risks [...] depending on your insurance coverage. Contact your [employer] (spotflux) company for new supplies as needed. - Follow up in 12 months Amy Alvarado APRN.WATER RESOURCE PROJECT MANAGER I spent a total of 18 minutes on the date of the service which included preparing to see the patient, [id number] patient care, completing clinical documentation, obtaining and/or reviewing separately obtained history, counseling and educating the patient/family/caregiver, and communicating results to the patient/family/caregiver. [facility] Instructions* Patient Instructions* Edna Leigh RD [...] Nutrition shakes per day 5 packets of [place] Breakfast Essentials Light Start mixed with fat free or 1% milk [...] 45-60 mg, calcium citrate w/ Vit D 5695-4459 mg, Vit B12 500 mcg sublingual pill or liquid, Vit D3 3000 international unit(s), B complex with 75-100 mg thiamin *It is ok to take a combination bariatric vitamin to limit pill volume. Here are a few options to consider: - Bariatric Fusion: 4 Complete Multivitamin chewables per day OR 1 Multivitamin capsule and 2145-5118 mg calcium citrate per day OR 2 Multivitamin soft chews per day + 3 calcium citrate soft chews + 1 iron soft chew per day www.bariatricfusion.com - Procare Health: 1 Bariatric Multivitamin w/ iron (capsule or chewable) and 5383-6328 mg calcium citrate per day www.Ecolibrium Solar - Bariatric Choice: 1 Once Daily Bariatric Multivitamin capsule and 4881-1568 mg calcium citrate per day OR 4 All-in-One Bariatric Multivitamin chewables per day www.bariatricchoice.Keystone Technology - Bariatric Advantage: 1 Ultra Solo multivitamin w/ iron (chewable or capsule) OR 2 chewable Advanced Multi EA w/ iron and 6662-8892 mg calcium citrate per day OR 2 Multi Chewy Bites and 7771-2234 mgcalcium citrate and 45-60 mg iron per day www.bariatricadShop Airlines.Keystone Technology - Celebrate: 2 Multi-Complete (chewable or capsule) OR 1 CelebrateOne Multivitamin capsule and 7700-7782 mg calcium citrate per day OR 2 Multivitamin soft chews + 3 calcium citrate soft chews + 1 iron soft chew per day https://celebratevitamins.com - Bariatric Pal: 1 Multivitamin One (chewable or capsule) and 3647-0366 mg calcium citrate per day OR 4 All-in-One Multivitamin chewables per day www.[place].bariatricpal.Keystone Technology/collections/bariatric-vitamins - Barilife: 1 Just One Bariatric Multivitamin w/ iron (chewable or capsule) and 2682-0319 mg calcium citrate per day www.Fundbase.Keystone Technology - Barimelts: 2 Multivitamin w/ iron tablets and 6143-7927 mg calcium citrate per day www.barimelts.Keystone Technology Take multivitamin with iron 2 hours apart from calcium citrate, and take each dose of calcium 4 hours apart from each other Nutrition Monitoring & Evaluation: follow pre-op diet and fluid guidelines Criteria: weight check and patient update Need for Follow up: 2 weeks post op [facility] History of Present illness Narrative* Edna [...] (date of last encounter 10/22/22): Please call [phone], option 5. Leave a message for the [...] 0.9% 10 mL injection (DEFINITY) INTRAVENOUS DIRECTED PRClaritza Ortiz MD sodium chloride 0.9 % (flush) 10 mL (BD POSIFLUSH) 10 mL INTRAVENOUS DIRECTED PRN Jayjay Ortiz MD (currently taking) ; Anthropometrics: Height: Last 1 Encounter Ht Readings: Date: Ht: 02/02/2023 172.7 cm (5' 8) Current weight: Last 1 Encounter Wt Readings: [...] Nutrition shakes per day 5 packets of [place] Breakfast Essentials Light Start mixed with fat free or 1% milk [...] 45-60 mg, calcium citrate w/ Vit D 0730-9986 mg, Vit B12 500 mcg sublingual pill or liquid, Vit D3 3000 international unit(s), B complex with 75-100 mg thiamin *It is ok to take a combination bariatric vitamin to limit pill volume. Here are a few options to consider: - Bariatric Fusion: 4 Complete Multivitamin chewables per day OR 1 Multivitamin capsule and 6465-4573 mg calcium citrate per day OR 2 Multivitamin soft chews per day + 3 calcium citrate soft chews + 1 iron soft chew per day www.bariatricfusion.com - Procare Health: 1 Bariatric Multivitamin w/ iron (capsule or chewable) and 1881-5800 mg calcium citrate per day www.Ecolibrium Solar - Bariatric Choice: 1 Once Daily Bariatric Multivitamin capsule and 8965-5498 mg calcium citrate per day OR 4 All-in-One Bariatric Multivitamin chewables per day www.bariatricchoice.Keystone Technology - Bariatric Advantage: 1 Ultra Solo multivitamin w/ iron (chewable or capsule) OR 2 chewable Advanced Multi EA w/ iron and 8281-8082 mg calcium citrate per day OR 2 Multi Chewy Bites and 5448-5094 mgcalcium citrate and 45-60 mg iron per day www.bariatricadvantage.Keystone Technology - Celebrate: 2 Multi-Complete (chewable or capsule) OR 1 CelebrateOne Multivitamin capsule and 3481-9768 mg calcium citrate per day OR 2 Multivitamin soft chews + 3 calcium citrate soft chews + 1 iron soft chew per day https://celebratevitamins.Keystone Technology - Bariatric Pal: 1 Multivitamin One (chewable or capsule) and 8492-2614 mg calcium citrate per day OR 4 All-in-One Multivitamin chewables per day www.Privateer Holdingsbariatricpal.Keystone Technology/collections/bariatric-vitamins - Barilife: 1 Just One Bariatric Multivitamin w/ iron (chewable or capsule) and 6282-0917 mg calcium citrate per day www.bariO4 International.Keystone Technology - Barimelts: 2 Multivitamin w/ iron tablets and 8631-1552 mg calcium citrate per day www.barimelts.Keystone Technology Take multivitamin with iron 2 hours apart [...] Edna Leigh RD, LD documented [facility] History of Past illness Narrative* Problem Noted Date Diagnosed Date Resolved Date Obesity, Class II, BMI 35-39.9 01/29/2023 06/02/2023 Stress hyperglycemia 11/22/2019 020 Overview: History/Assessment: BG controlled Plan: Start SSI coverage Obesity, Class II, BMI 35-39.9 11/22/2019 11/22/2019 Postoperative pain 11/21/2019 0 Overview: History: No PMH of chronic pain. Assessment: Pain controlled Plan: Continue Fen SUPERVISOR POULTRY PROCESSING, toradol, tylenol, and prn percolone Atelectasis 11/21/2019 11/22/2019 Overview: History: Postoperative Assessment: Grade I Airway on 1L NC Plan: OOB, wean o2, and pep Family history of hypertrophic cardiomyopathy 01/19/20 14 09/22/2018 Irregular menstrual cycle 11/05/2011 Placenta previa without hemo rrhage, antepartum 07/21/2008 10/16/2008 Supervision of normal first 03/11/2008 03/27/2009 documented as of this encounter (statuses as of 06/03/2023) [place] [address]27-[address]23 History of Past illness Narrative* Problem Noted Date Diagnosed Date Resolved Date Obesity, Class II, BMI 35-39.9 01/29/2023 06/02/2023 Stress hyperglycemia 11/22/2019 020 Overview: History/Assessment: BG controlled Plan: Start SSI coverage Obesity, Class II, BMI 35-39.9 11/22/2019 11/22/2019 Postoperative pain 11/21/2019 0 Overview: History: No PMH of chronic pain. Assessment: Pain controlled Plan: Continue Fen SUPERVISOR POULTRY PROCESSING, toradol, tylenol, and prn percolone Atelectasis 11/21/2019 11/22/2019 Overview: History: Postoperative Assessment: Grade I Airway on 1L NC Plan: OOB, wean o2, and pep Family history of hypertrophic cardiomyopathy 01/19/20 14 09/22/2018 Irregular menstrual cycle 11/05/2011 Placenta previa without hemo rrhage, antepartum 07/21/2008 10/16/2008 Supervision of normal first 03/11/2008 03/27/2009 documented as of this encounter (statuses as of 06/05/2023) [address]27-2023 History of Past illness Narrative* Problem Noted Date Diagnosed Date Resolved Date Obesity, Class II, BMI 35-39.9 01/29/2023 06/02/2023 Stress hyperglycemia 11/22/2019 020 Overview: History/Assessment: BG controlled Plan: Start SSI coverage Obesity, Class II, BMI 35-39.9 11/22/2019 11/22/2019 Postoperative pain 11/21/2019 0 Overview: History: No PMH of chronic pain. Assessment: Pain controlled Plan: Continue Fen SUPERVISOR POULTRY PROCESSING, toradol, tylenol, and prn percolone Atelectasis 11/21/2019 11/22/2019 Overview: History: Postoperative Assessment: Grade I Airway on 1L NC Plan: OOB, wean o2, and pep Family history of hypertrophic cardiomyopathy 01/19/20 14 09/22/2018 Irregular menstrual cycle 11/05/2011 Placenta previa without hemo rrhage, antepartum 07/21/2008 10/16/2008 Supervision of normal first 03/11/2008 03/27/2009 documented as of this encounter (statuses as of 07/08/2023) [facility] History of Past illness Narrative* Problem Noted Date Diagnosed Date Resolved Date Obesity, Class II, BMI 35-39.9 01/29/2023 06/02/2023 Stress hyperglycemia 11/22/2019 020 Overview: History/Assessment: BG controlled Plan: Start SSI coverage Obesity, Class II, BMI 35-39.9 11/22/2019 11/22/2019 Postoperative pain 11/21/2019 0 Overview: History: No PMH of chronic pain. Assessment: Pain controlled Plan: Continue Fen SUPERVISOR POULTRY PROCESSING, toradol, tylenol, and prn percolone Atelectasis 11/21/2019 11/22/2019 Overview: History: Postoperative Assessment: Grade I Airway on 1L NC Plan: OOB, wean o2, and pep Family history of hypertrophic cardiomyopathy 01/19/20 14 09/22/2018 Irregular menstrual cycle 11/05/2011 Placenta previa without hemo rrhage, antepartum 07/21/2008 10/16/2008 Supervision of normal first 03/11/2008 03/27/2009 documented as of this encounter (statuses as of 07/11/2023) [place] [address]27-[address]23 History of Past illness Narrative* Problem Noted Date Diagnosed Date Resolved Date Obesity, Class II, BMI 35-39.9 01/29/2023 06/02/2023 Stress hyperglycemia 11/22/2019 020 Overview: History/Assessment: BG controlled Plan: Start SSI coverage Obesity, Class II, BMI 35-39.9 11/22/2019 11/22/2019 Postoperative pain 11/21/2019 0 Overview: History: No PMH of chronic pain. Assessment: Pain controlled Plan: Continue Fen SUPERVISOR POULTRY PROCESSING, toradol, tylenol, and prn percolone Atelectasis 11/21/2019 11/22/2019 Overview: History: Postoperative Assessment: Grade I Airway on 1L NC Plan: OOB, wean o2, and pep Family history of hypertrophic cardiomyopathy 01/19/20 14 09/22/2018 Irregular menstrual cycle 11/05/2011 Placenta previa without hemo rrhage, antepartum 07/21/2008 10/16/2008 Supervision of normal first 03/11/2008 03/27/2009 documented as of this encounter (statuses as of 07/15/2023) [address]27-2023 History of Past illness Narrative* Problem Noted Date Diagnosed Date Resolved Date Obesity, Class II, BMI 35-39.9 01/29/2023 06/02/2023 Stress hyperglycemia 11/22/2019 020 Overview: History/Assessment: BG controlled Plan: Start SSI coverage Obesity, Class II, BMI 35-39.9 11/22/2019 11/22/2019 Postoperative pain 11/21/2019 0 Overview: History: No PMH of chronic pain. Assessment: Pain controlled Plan: Continue Fen SUPERVISOR POULTRY PROCESSING, toradol, tylenol, and prn percolone Atelectasis 11/21/2019 11/22/2019 Overview: History: Postoperative Assessment: Grade I Airway on 1L NC Plan: OOB, wean o2, and pep Family history of hypertrophic cardiomyopathy 01/19/20 14 09/22/2018 Irregular menstrual cycle 11/05/2011 Placenta previa without hemo rrhage, antepartum 07/21/2008 10/16/2008 Supervision of normal first 03/11/2008 03/27/2009 documented as of this encounter (statuses as of 07/15/2023) [place] [address]23 History of Past illness Narrative* Problem Noted Date Diagnosed Date Resolved Date Obesity, Class II, BMI 35-39.9 01/29/2023 06/02/2023 Stress hyperglycemia 11/22/2019 020 Overview: History/Assessment: BG controlled Plan: Start SSI coverage Obesity, Class II, BMI 35-39.9 11/22/2019 11/22/2019 Postoperative pain 11/21/2019 0 Overview: History: No PMH of chronic pain. Assessment: Pain controlled Plan: Continue Fen SUPERVISOR POULTRY PROCESSING, toradol, tylenol, and prn percolone Atelectasis 11/21/2019 11/22/2019 Overview: History: Postoperative Assessment: Grade I Airway on 1L NC Plan: OOB, wean o2, and pep Family history of hypertrophic cardiomyopathy 01/19/20 14 09/22/2018 Irregular menstrual cycle 11/05/2011 Placenta previa without hemo rrhage, antepartum 07/21/2008 10/16/2008 Supervision of normal first 03/11/2008 03/27/2009 documented as of this encounter (statuses as of 07/16/2023) [facility] History of Past illness Narrative* Problem Noted Date Diagnosed Date Resolved Date Obesity, Class II, BMI 35-39.9 01/29/2023 06/02/2023 Stress hyperglycemia 11/22/2019 020 Overview: History/Assessment: BG controlled Plan: Start SSI coverage Obesity, Class II, BMI 35-39.9 11/22/2019 11/22/2019 Postoperative pain 11/21/2019 0 Overview: History: No PMH of chronic pain. Assessment: Pain controlled Plan: Continue Fen SUPERVISOR POULTRY PROCESSING, toradol, tylenol, and prn percolone Atelectasis 11/21/2019 11/22/2019 Overview: History: Postoperative Assessment: Grade I Airway on 1L NC Plan: OOB, wean o2, and pep Family history of hypertrophic cardiomyopathy 01/19/20 14 09/22/2018 Irregular menstrual cycle 11/05/2011 Placenta previa without hemo rrhage, antepartum 07/21/2008 10/16/2008 Supervision of normal first 03/11/2008 03/27/2009 documented as of this encounter (statuses as of 07/22/2023) [facility] History of Past illness Narrative* Problem Noted Date Diagnosed Date Resolved Date Obesity, Class II, BMI 35-39.9 01/29/2023 06/02/2023 Stress hyperglycemia 11/22/2019 020 Overview: History/Assessment: BG controlled Plan: Start SSI coverage Obesity, Class II, BMI 35-39.9 11/22/2019 11/22/2019 Postoperative pain 11/21/2019 0 Overview: History: No PMH of chronic pain. Assessment: Pain controlled Plan: Continue Fen SUPERVISOR POULTRY PROCESSING, toradol, tylenol, and prn percolone Atelectasis 11/21/2019 11/22/2019 Overview: History: Postoperative Assessment: Grade I Airway on 1L NC Plan: OOB, wean o2, and pep Family history of hypertrophic cardiomyopathy 01/19/20 14 09/22/2018 Irregular menstrual cycle 11/05/2011 Placenta previa without hemo rrhage, antepartum 07/21/2008 10/16/2008 Supervision of normal first 03/11/2008 03/27/2009 documented as of this encounter (statuses as of 07/25/2023) [address]27-[address]23 History of Past illness Narrative* Problem Noted Date Diagnosed Date Resolved Date Obesity, Class II, BMI 35-39.9 01/29/2023 06/02/2023 Stress hyperglycemia 11/22/2019 020 Overview: History/Assessment: BG controlled Plan: Start SSI coverage Obesity, Class II, BMI 35-39.9 11/22/2019 11/22/2019 Postoperative pain 11/21/2019 0 Overview: History: No PMH of chronic pain. Assessment: Pain controlled Plan: Continue Fen [employer]PERVISOR POUL[employer] PROCESSING, toradol, tylenol, and prn percolone Atelectasis 11/21/2019 11/22/2019 Overview: History: Postoperative Assessment: Grade I Airway on 1L NC Plan: OOB, wean o2, and pep Family history of hypertrophic cardiomyopathy 01/19/20 14 09/22/2018 Irregular menstrual cycle 11/05/2011 Placenta previa without hemo rrhage, antepartum 07/21/2008 10/16/2008 Supervision of normal first 03/11/2008 03/27/2009 documented as of this encounter (statuses as of 07/30/2023) [address]27-2023 History of Past illness Narrative* Problem Noted Date Diagnosed Date Resolved Date Obesity, Class II, BMI 35-39.9 01/29/2023 06/02/2023 Stress hyperglycemia 11/22/2019 020 Overview: History/Assessment: BG controlled Plan: Start SSI coverage Obesity, Class II, BMI 35-39.9 11/22/2019 11/22/2019 Postoperative pain 11/21/2019 0 Overview: History: No PMH of chronic pain. Assessment: Pain controlled Plan: Continue Fen [employer]PERVISOR POUL[employer] PROCESSING, toradol, tylenol, and prn percolone Atelectasis 11/21/2019 11/22/2019 Overview: History: Postoperative Assessment: Grade I Airway on 1L NC Plan: OOB, wean o2, and pep Family history of hypertrophic cardiomyopathy 01/19/20 14 09/22/2018 Irregular menstrual cycle 11/05/2011 Placenta previa without hemo rrhage, antepartum 07/21/2008 10/16/2008 Supervision of normal first 03/11/2008 03/27/2009 documented as of this encounter (statuses as of 08/05/2023) [facility] of Past illness Narrative* Problem Noted Date Diagnosed Date Resolved Date Obesity, Class II, BMI 35-39.9 01/29/2023 06/02/2023 Stress hyperglycemia 11/22/2019 020 Overview: History/Assessment: BG controlled Plan: Start SSI coverage Obesity, Class II, BMI 35-39.9 11/22/2019 11/22/2019 Postoperative pain 11/21/2019 0 Overview: History: No PMH of chronic pain. Assessment: Pain controlled Plan: Continue Fen [employer], toradol, tylenol, and prn percolone Atelectasis 11/21/2019 11/22/2019 Overview: History: Postoperative Assessment: Grade I Airway on 1L NC Plan: OOB, wean o2, and pep Family history of hypertrophic cardiomyopathy 01/19/20 14 09/22/2018 Irregular menstrual cycle 11/05/2011 Placenta previa without hemo rrhage, antepartum 07/21/2008 10/16/2008 Supervision of normal first 03/11/2008 03/27/2009 documented as of this encounter (statuses as of 08/06/2023) [facility] History of Past illness Narrative* Problem Noted Date Diagnosed Date Resolved Date Obesity, Class II, BMI 35-39.9 01/29/2023 06/02/2023 Stress hyperglycemia 11/22/2019 020 Overview: History/Assessment: BG controlled Plan: Start SSI coverage Obesity, Class II, BMI 35-39.9 11/22/2019 11/22/2019 Postoperative pain 11/21/2019 0 Overview: History: No PMH of chronic pain. Assessment: Pain controlled Plan: Continue Fen [employer], toradol, tylenol, and prn percolone Atelectasis 11/21/2019 11/22/2019 Overview: History: Postoperative Assessment: Grade I Airway on 1L NC Plan: OOB, wean o2, and pep Family history of hypertrophic cardiomyopathy 01/19/20 14 09/22/2018 Irregular menstrual cycle 11/05/2011 Placenta previa without hemo rrhage, antepartum 07/21/2008 10/16/2008 Supervision of normal first 03/11/2008 03/27/2009 documented as of this encounter (statuses as of 08/28/2023) [facility]04-27-[facility] History of Past illness Narrative* Problem Noted Date Diagnosed Date Resolved Date Obesity, Class II, BMI 35-39.9 01/29/2023 06/02/2023 Stress hyperglycemia 11/22/2019 020 Overview: History/Assessment: BG controlled Plan: Start SSI coverage Obesity, Class II, BMI 35-39.9 11/22/2019 11/22/2019 Postoperative pain 11/21/2019 0 Overview: History: No PMH of chronic pain. Assessment: Pain controlled Plan: Continue Fen [employer], toradol, tylenol, and prn percolone Atelectasis 11/21/2019 11/22/2019 Overview: History: Postoperative Assessment: Grade I Airway on 1L NC Plan: OOB, wean o2, and pep Family history of hypertrophic cardiomyopathy 01/19/20 14 09/22/2018 Irregular menstrual cycle 11/05/2011 Placenta previa without hemo rrhage, antepartum 07/21/2008 10/16/2008 Supervision of normal first 03/11/2008 03/27/2009 documented as of this encounter (statuses as of 09/02/2023) [place] [id number] History of Past illness Narrative* Problem Noted Date Diagnosed Date Resolved Date Obesity, Class II, BMI 35-39.9 01/29/2023 06/02/2023 Stress hyperglycemia 11/22/2019 020 Overview: History/Assessment: BG controlled Plan: Start SSI coverage Obesity, Class II, BMI 35-39.9 11/22/2019 11/22/2019 Postoperative pain 11/21/2019 0 Overview: History: No PMH of chronic pain. Assessment: Pain controlled Plan: Continue Fen [employer], toradol, tylenol, and prn percolone Atelectasis 11/21/2019 11/22/2019 Overview: History: Postoperative Assessment: Grade I Airway on 1L NC Plan: OOB, wean o2, and pep Family history of hypertrophic cardiomyopathy 01/19/20 14 09/22/2018 Irregular menstrual cycle 11/05/2011 Placenta previa without hemo rrhage, antepartum 07/21/2008 10/16/2008 Supervision of normal first 03/11/2008 03/27/2009 documented as of this encounter (statuses as of 09/02/2023) [facility] History of Past illness Narrative* Problem Noted Date Diagnosed Date Resolved Date Obesity, Class II, BMI 35-39.9 01/29/2023 06/02/2023 Stress hyperglycemia 11/22/2019 020 Overview: History/Assessment: BG controlled Plan: Start SSI coverage Obesity, Class II, BMI 35-39.9 11/22/2019 11/22/2019 Postoperative pain 11/21/2019 0 Overview: History: No PMH of chronic pain. Assessment: Pain controlled Plan: Continue Fen [employer], toradol, tylenol, and prn percolone Atelectasis 11/21/2019 11/22/2019 Overview: History: Postoperative Assessment: Grade I Airway on 1L NC Plan: OOB, wean o2, and pep Family history of hypertrophic cardiomyopathy 01/19/20 14 09/22/2018 Irregular menstrual cycle 11/05/2011 Placenta previa without hemo rrhage, antepartum 07/21/2008 10/16/2008 Supervision of normal first 03/11/2008 03/27/2009 documented as of this encounter (statuses as of 09/10/2023) [facility] History of Past illness Narrative* Problem Noted Date Diagnosed Date Resolved Date Obesity, Class II, BMI 35-39.9 01/29/2023 06/02/2023 Stress hyperglycemia 11/22/2019 020 Overview: History/Assessment: BG controlled Plan: Start SSI coverage Obesity, Class II, BMI 35-39.9 11/22/2019 11/22/2019 Postoperative pain 11/21/2019 0 Overview: History: No PMH of chronic pain. Assessment: Pain controlled Plan: Continue Fen [employer], toradol, tylenol, and prn percolone Atelectasis 11/21/2019 11/22/2019 Overview: History: Postoperative Assessment: Grade I Airway on 1L NC Plan: OOB, wean o2, and pep Family history of hypertrophic cardiomyopathy 01/19/20 14 09/22/2018 Irregular menstrual cycle 11/05/2011 Placenta previa without hemo rrhage, antepartum 07/21/2008 10/16/2008 Supervision of normal first 03/11/2008 03/27/2009 documented as of this encounter (statuses as of 09/11/2023) [facility] History of Past illness Narrative* Problem Noted Date Diagnosed Date Resolved Date Obesity, Class II, BMI 35-39.9 01/29/2023 06/02/2023 Stress hyperglycemia 11/22/2019 020 Overview: History/Assessment: BG controlled Plan: Start SSI coverage Obesity, Class II, BMI 35-39.9 11/22/2019 11/22/2019 Postoperative pain 11/21/2019 0 Overview: History: No PMH of chronic pain. Assessment: Pain controlled Plan: Continue Fen [employer]ING, toradol, tylenol, and prn percolone Atelectasis 11/21/2019 11/22/2019 Overview: History: Postoperative Assessment: Grade I Airway on 1L NC Plan: OOB, wean o2, and pep Family history of hypertrophic cardiomyopathy 01/19/20 14 09/22/2018 Irregular menstrual cycle 11/05/2011 Placenta previa without hemo rrhage, antepartum 07/21/2008 10/16/2008 Supervision of normal first 03/11/2008 03/27/2009 documented as of this encounter (statuses as of 09/11/2023) [facility] History of Past illness Narrative* Problem Noted Date Diagnosed Date Resolved Date Obesity, Class II, BMI 35-39.9 01/29/2023 06/02/2023 Stress hyperglycemia 11/22/2019 020 Overview: History/Assessment: BG controlled Plan: Start SSI coverage Obesity, Class II, BMI 35-39.9 11/22/2019 11/22/2019 Postoperative pain 11/21/2019 0 Overview: History: No PMH of chronic pain. Assessment: Pain controlled Plan: Continue Fen [employer], toradol, tylenol, and prn percolone Atelectasis 11/21/2019 [...] of this encounter (statuses as of 11/06/2023) [facility]04-27-2023 History of Past illness Narrative* Problem Noted Date Diagnosed Date Resolved Date Obesity, Class II, BMI 35-39.9 01/29/2023 06/02/2023 Stress hyperglycemia 11/22/2019 020 Overview: History/Assessment: BG controlled Plan: Start SSI coverage Obesity, Class II, BMI 35-39.9 11/22/2019 11/22/2019 Postoperative pain 11/21/2019 0 Overview: History: No PMH of chronic pain. Assessment: Pain controlled Plan: Continue Fen [employer], toradol, tylenol, and prn percolone Atelectasis 11/21/2019 [...] of this encounter (statuses as of 11/12/2023) [facility]-20[facility] History of Past illness Narrative* Problem Noted Date Diagnosed Date Resolved Date Obesity, Class II, BMI 35-39.9 01/29/2023 06/02/2023 Stress hyperglycemia 11/22/2019 020 Overview: History/Assessment: BG controlled Plan: Start SSI coverage Obesity, Class II, BMI 35-39.9 11/22/2019 11/22/2019 Postoperative pain 11/21/2019 0 Overview: History: No PMH of chronic pain. Assessment: Pain controlled Plan: Continue Fen [employer], toradol, tylenol, and prn percolone Atelectasis 11/21/2019 [...] of this encounter (statuses as of 11/12/2023) [facility]-27-20[facility] History of Past illness Narrative* Problem Noted Date Diagnosed Date Resolved Date Obesity, Class II, BMI 35-39.9 01/29/2023 06/02/2023 Stress hyperglycemia 11/22/2019 020 Overview: History/Assessment: BG controlled Plan: Start SSI coverage Obesity, Class II, BMI 35-39.9 11/22/2019 11/22/2019 Postoperative pain 11/21/2019 0 Overview: History: No PMH of chronic pain. Assessment: Pain controlled Plan: Continue Fen [employer], toradol, tylenol, and prn percolone Atelectasis 11/21/2019 [...] of this encounter (statuses as of 11/19/2023) [facility]20[facility] History of Past illness Narrative* Problem Noted Date Diagnosed Date Resolved Date Obesity, Class II, BMI 35-39.9 01/29/2023 06/02/2023 Stress hyperglycemia 11/22/2019 020 Overview: History/Assessment: BG controlled Plan: Start SSI coverage Obesity, Class II, BMI 35-39.9 11/22/2019 11/22/2019 Postoperative pain 11/21/2019 0 Overview: History: No PMH of chronic pain. Assessment: Pain controlled Plan: Continue Fen [employer], toradol, tylenol, and prn percolone Atelectasis 11/21/2019 [...] of this encounter (statuses as of 12/03/2023) [facility]20[facility] History of Past illness Narrative* Problem Noted Date Diagnosed Date Resolved Date Obesity, Class II, BMI 35-39.9 01/29/2023 06/02/2023 Stress hyperglycemia 11/22/2019 020 Overview: History/Assessment: BG controlled Plan: Start SSI coverage Obesity, Class II, BMI 35-39.9 11/22/2019 11/22/2019 Postoperative pain 11/21/2019 0 Overview: History: No PMH of chronic pain. Assessment: Pain controlled Plan: Continue Fen [employer], toradol, tylenol, and prn percolone Atelectasis 11/21/2019 [...] of this encounter (statuses as of 12/03/2023) [facility] History of Past illness Narrative* Problem Noted Date Diagnosed Date Resolved Date Obesity, Class II, BMI 35-39.9 01/29/2023 06/02/2023 Stress hyperglycemia 11/22/2019 020 Overview: History/Assessment: BG controlled Plan: Start SSI coverage Obesity, Class II, BMI 35-39.9 11/22/2019 11/22/2019 Postoperative pain 11/21/2019 0 Overview: History: No PMH of chronic pain. Assessment: Pain controlled Plan: Continue Fen [employer], toradol, tylenol, and prn percolone Atelectasis 11/21/2019 [...] of this encounter (statuses as of 12/08/2023) [facility] History of Past illness Narrative* Problem Noted Date Diagnosed Date Resolved Date Obesity, Class II, BMI 35-39.9 01/29/2023 06/02/2023 Stress hyperglycemia 11/22/2019 020 Overview: History/Assessment: BG controlled Plan: Start SSI coverage Obesity, Class II, BMI 35-39.9 11/22/2019 11/22/2019 Postoperative pain 11/21/2019 0 Overview: History: No PMH of chronic pain. Assessment: Pain controlled Plan: Continue Fen [employer], toradol, tylenol, and prn percolone Atelectasis 11/21/2019 [...] of this encounter (statuses as of 12/14/2023) [facility] History of Past illness Narrative* Problem Noted Date Diagnosed Date Resolved Date Obesity, Class II, BMI 35-39.9 01/29/2023 06/02/2023 Stress hyperglycemia 11/22/2019 020 Overview: History/Assessment: BG controlled Plan: Start SSI coverage Obesity, Class II, BMI 35-39.9 11/22/2019 11/22/2019 Postoperative pain 11/21/2019 0 Overview: History: No PMH of chronic pain. Assessment: Pain controlled Plan: Continue Fen [employer], toradol, tylenol, and prn percolone Atelectasis 11/21/2019 [...] of this encounter (statuses as of 12/17/2023) [facility] History of Past illness Narrative* Problem Noted Date Diagnosed Date Resolved Date Obesity, Class II, BMI 35-39.9 01/29/2023 06/02/2023 Stress hyperglycemia 11/22/2019 020 Overview: History/Assessment: BG controlled Plan: Start SSI coverage Obesity, Class II, BMI 35-39.9 11/22/2019 11/22/2019 Postoperative pain 11/21/2019 0 Overview: History: No PMH of chronic pain. Assessment: Pain controlled Plan: Continue Fen [employer], toradol, tylenol, and prn percolone Atelectasis 11/21/2019 [...] of this encounter (statuses as of 12/21/2023) [facility] History of Past illness Narrative* Problem Noted Date Diagnosed Date Resolved Date Obesity, Class II, BMI 35-39.9 01/29/2023 06/02/2023 Stress hyperglycemia 11/22/2019 020 Overview: History/Assessment: BG controlled Plan: Start SSI coverage Obesity, Class II, BMI 35-39.9 11/22/2019 11/22/2019 Postoperative pain 11/21/2019 0 Overview: History: No PMH of chronic pain. Assessment: Pain controlled Plan: Continue Fen [employer], toradol, tylenol, and prn percolone Atelectasis 11/21/2019 [...] of this encounter (statuses as of 12/23/2023) [facility] History of Past illness Narrative* Problem Noted Date Diagnosed Date Resolved Date Obesity, Class II, BMI 35-39.9 01/29/2023 06/02/2023 Stress hyperglycemia 11/22/2019 020 Overview: History/Assessment: BG controlled Plan: Start SSI coverage Obesity, Class II, BMI 35-39.9 11/22/2019 11/22/2019 Postoperative pain 11/21/2019 0 Overview: History: No PMH of chronic pain. Assessment: Pain controlled Plan: Continue Fen [employer], toradol, tylenol, and prn percolone Atelectasis 11/21/2019 [...] of this encounter (statuses as of 12/28/2023) [facility] History of Past illness Narrative* Problem Noted Date Diagnosed Date Resolved Date Obesity, Class II, BMI 35-39.9 01/29/2023 06/02/2023 Stress hyperglycemia 11/22/2019 020 Overview: History/Assessment: BG controlled Plan: Start SSI coverage Obesity, Class II, BMI 35-39.9 11/22/2019 11/22/2019 Postoperative pain 11/21/2019 0 Overview: History: No PMH of chronic pain. Assessment: Pain controlled Plan: Continue Fen [employer], toradol, tylenol, and prn percolone Atelectasis 11/21/2019 [...] of this encounter (statuses as of 12/29/2023) [facility] History of Past illness Narrative* Problem Noted Date Diagnosed Date Resolved Date Obesity, Class II, BMI 35-39.9 01/29/2023 06/02/2023 Stress hyperglycemia 11/22/2019 020 Overview: History/Assessment: BG controlled Plan: Start SSI coverage Obesity, Class II, BMI 35-39.9 11/22/2019 11/22/2019 Postoperative pain 11/21/2019 0 Overview: History: No PMH of chronic pain. Assessment: Pain controlled Plan: Continue Fen [employer], toradol, tylenol, and prn percolone Atelectasis 11/21/2019 [...] of this encounter (statuses as of 01/14/2024) [facility] History of Past illness Narrative* Problem Noted Date Diagnosed Date Resolved Date Obesity, Class II, BMI 35-39.9 01/29/2023 06/02/2023 Stress hyperglycemia 11/22/2019 020 Overview: History/Assessment: BG controlled Plan: Start SSI coverage Obesity, Class II, BMI 35-39.9 11/22/2019 11/22/2019 Postoperative pain 11/21/2019 0 Overview: History: No PMH of chronic pain. Assessment: Pain controlled Plan: Continue Fen [employer]ING, toradol, tylenol, and prn percolone Atelectasis 11/21/2019 [...] of this encounter (statuses as of 01/14/2024) [facility] History of Past illness Narrative* Problem Noted Date Diagnosed Date Resolved Date Obesity, Class II, BMI 35-39.9 01/29/2023 06/02/2023 Stress hyperglycemia 11/22/2019 020 Overview: History/Assessment: BG controlled Plan: Start SSI coverage Obesity, Class II, BMI 35-39.9 11/22/2019 11/22/2019 Postoperative pain 11/21/2019 0 Overview: History: No PMH of chronic pain. Assessment: Pain controlled Plan: Continue Fen [employer]ING, toradol, tylenol, and prn percolone Atelectasis 11/21/2019 [...] of this encounter (statuses as of 01/21/2024) [facility]04[facility] History and physical note* Sallie Pearl PA-C - 01/29/2023 12:40 PM EDT HISTORY AND PHYSICAL EXAMINATION SERVICE DATE: 01/29/2023 SERVICE TIME: 11:56 AM PRIMARY CARE PHYSICIAN: Kylah Palma PA-C REASON FOR VISIT: Chavo Cavanaugh is a 42 year old female who [...] Cardiomyopathy) (Hcc) Body Mass Index 40.0-44.9, Adult ([facility]) Atrial Fibrillation (Hcc) Ventricular Tachyarrhythmia (Hcc) Htuig-Dlnoxeudf-Wtgsr (Wpw) Syndrome Thyroid Nodule, Cold Icd (Implantable [...] Obesity Sleep apnea Ventricular tachyarrhythmia (HCC) 02/2014 Dgfdt-Cmvvaxxiv-Gckfj (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 Cardioverted with 150j under sedation DEFIBRILLATOR SURGERY 02/24/2014 ICD, redo WPW & atrial fib ablation EPS: DEFIB. SURGERY 05/16/2021 Exchange of a NetStreams SQ-RX 1010 pulse generator with a [place] PAST SURGICAL HISTORY OF 07/06/2014 WPW ablation PAST SURGICAL HISTORY OF 11/21/2019 MVr, myectomy, PVI, LAAC TYMPANOSTOMY LOCAL/TOPICAL ANESTHESIA Right FAMILY HISTORY Problem Relation Age of Onset Lipids Father Diabetes Mother Hypertension Mother Thyroid Mother Coronary Artery Disease Mother CABG 2012 Diabetes Brother Heart Sister HOCM s/p ICD None Maternal Grandfather age 46-suddenly Heart Maternal Grandmother [place] age 72 Alcohol/Drug Paternal Grandfather ETOH Diabetes [...] fevers. Neuro: No history of TIA's, stroke, PAWN SHOP KEEPER tumor, impaired sensorium, hemiplegia, paraplegia or quadraplegia. No neurological symptoms or problems. Respiratory: Negative for Asthma, Bronchitis, COPD, Current cough, Dyspnea, Pneumonia within 6 weeks (date), Tobacco Use, URI < 2 weeks+QUINTON-uses CPAP Cardiovascular: Negative for Recent [place], Angina, CAD, Chest Pain, PVD, DVT/PE+HOCM-s/p septal [...] or incontinence,, stones or chronic kidney disease TAXATION ECONOMIST: Negative for abnormal vaginal bleeding, abnormal vaginal [...] 62 Temp (Src) 97.8 (Temporal) Ht 5' 8 (1.73m) Wt 264 lb 4.8 oz (119.9kg) [...] HBA1C, Cyn (%) Date Value 11/05/2011 5.4 Labs pending [...] cardiology Dr. Jayjay Ortiz, last visit 11/25/22 Qkzwf-Wkrgbmyvy-Begqm (WPW) syndrome -s/p ablation 2013 -stable on [...] initiated at this time: Cardiology Dr. Jayjay Oritz: PLAN AND RECOMMENDATIONS: She is at acceptable risk to proceed with Bariatric surgery. Maintain present regimen in post-operative period. Can hold DOAC for 2-3 days prior to surgery. The Following Tests/Procedures Have Been Initiated: CBC, CMP, T&S per surgical service. EKG 11/25/22 reviewed and accepted. Planned Anesthetic: General Instructions Given to Patient: Instructions located in the after visit summary. Patient given verbal and written preop instructions and voices comprehension and compliance. SIGNATURE: Sallie Pearl PA-C PATIENT NAME: Chavo Cavanaugh DATE: January 29, 2023 TIME: 12:16 PM documented in this encounterGreene [facility]04[facility] Instructions* Patient Instructions* Sallie Pearl PA-C - 01/29/2023 12:02 PM EDT PATIENT PREOPERATIVE INSTRUCTIONS Esperanza Mercer MD has scheduled you for your procedure at this surgery center: [facility] Scheduling Office: [phone] --[address] [place] [address]. Please read below carefully for your personalized [...] Procedures: - YOU MUST HAVE A RESPONSIBLE FUSING LINE INSPECTOR TAKE YOU HOME. A HEATER HELPER OR SKIP HOIST OPERATOR CANNOT BE MADE A RESPONSIBLE FUSING LINE INSPECTOR. - We recommend that a responsible person [...] call the Thursday before. Your surgeon s carpet installer will tell you what time to call the office. - If you have not reached the departmental carpet installer by 5 P.M., call [phone] after 5 P.M. the day before your surgery. Please be aware that emergency situations arise, which may delay or change your surgical time. If this happens, we will notify you as soon as possible and regret any inconvenience. If you already have an Advance Directive, please fax a copy to [phone] or email to for it to be [...] day. Sallie Pearl PA-C documented in this encounterGreene [facility]04-[facility] History of Present illness Narrative* Clementina [...] bedtime you may take two Extra Strength Tylenol. Clementina Ny RN documented in this encounterGreene [facility]04[facility] History and physical note * Esperanza Mercer MD - 01/29/2023 10:00 AM EDT BARIATRIC SURGERY PREOPERATIVE VISIT NOTE SERVICE DATE: 01/29/2023 SUBJECTIVE: Chavo Cavanaugh is a 42 year old female seen [...] (implantable cardioverter-defibrillator) in place Thyroid nodule, cold Hveib-Fucjikvgx-Dckof (WPW) syndrome Body mass index 40.0-44.9, adult (HCC) Atrial fibrillation (HCC) HOCM (hypertrophic obstructive cardiomyopathy) ([facility]) S/P ablation of accessory bypass tract Syncope [...] Obesity Sleep apnea Ventricular tachyarrhythmia (HCC) 02/2014 Mgwsv-Ofxiaiipp-Iqsco (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 Cardioverted with 150j under sedation DEFIBRILLATOR SURGERY 02/24/2014 ICD, redo WPW & atrial fib ablation EPS: DAVIDIB. SURGERY 05/16/2021 Exchange of a NetStreams SQ-RX 1010 pulse generator with a [employer]imize PAST SURGICAL HISTORY OF 07/06/2014 WPW ablation [...] MD 01/29/2023 7:38 AM documented in this encounterGreene [facility]04[facility] History of Present illness Narrative* Tri Hammond MD - 01/14/2023 12:03 PM EDT Assessment [...] others. I have seen and examined Chavo Cavanaugh. I have discussed the case and the management of this patient's care with the Resident/Fellow, if applicable. I also have reviewed and agree with the assessment and plan as stated above and agree withall of its relevant components. Tri Hammond MD documented in this encounterGreene [facility] Hospital03-20-2023 Miscellaneous Notes* Telephone Encounter - [facility] - 12/22/2022 7:35 AM EDT Call from pharmacy requesting refill. Requested Prescriptions Pending Prescriptions Disp Refills metoprolol succinate ER (TOPROL XL) 25 mg 24 hr tablet 90 tablet 6 Sig: Take 1.5 tablets by mouth twice daily with meals. Patient last seen 11/25/2022 [facility] documented in this encounterGreene [facility] Hospital03-13-2023 Miscellaneous Notes* Telephone Encounter - [facility] - 12/15/2022 12:28 PM EDT Imported external letter notifying of approval for DME oxygen equipment from [employer] (dated 11/24/22). Please allow time delay for documents to appear in [facility]. documented in this encounterGreene Memorial Hospital03-09-2023 History of Present illness Narrative* Elizabeth Shankar RDMS - 12/11/2022 8:30 AM EST Radiology Service Progress Note PATIENT NAME: Chavo Cavanaugh DATE OF SERVICE: December 11, 2022 TIME: [...] 11, 2022 9:08 AM documented in this encounterGreene [facility] Hospital03-07-[facility]23 History of Present illness Narrative* Tri Hammond MD - 12/09/2022 4:17 PM EST Assessment [...] others. I have seen and examined Chavo Cavanaugh. I have discussed the case and the management of this patient's care with the Resident/Fellow, if applicable. I also have reviewed and agree with the assessment and plan as stated above and agree withall of its relevant components. Tri Hammond MD documented in this encounterGreene [facility] Hospital03-03-2023 Miscellaneous Notes* Telephone Encounter - Taylor Lou MA - 12/05/2022 5:58 PM EST Patient has viewed results via [employer]. Taylor Lou MA * Telephone Encounter - Cathleen Martin LPN - 12/05/2022 8:33 AM EST Phone call placed brief message to contact a nurse to review results, [employer] 12/05/2022. Cathleen Martin LPN * Telephone Encounter - HALEY Garcia - 12/05/2022 7:10 AM EST Let patient know negative for COVID and flu documented in this encounterGreene Memorial Hospital03-03-2023 History of Present illness Narrative* Juan Antonio Bower - 12/05/2022 11:49 AM EST CMN RECEIVED BY [facility] VIA FAX, COMPLETED, AND PLACED IN PROVIDER MAILBOX FOR SIGNATURE Juan Antonio Bower, Administration Assistance 12/05/22 [employer] COMPANY SENDING CMN: Andrey SIGNED AND DATED CMN, FAXED TO DME & CONFIRMATION PAGE RECEIVED: 12/08/22 documented in this encounterGreene [facility] Hospital02-21-2023 History of Present illness Narrative* Jayjay Ortiz MD - 11/25/2022 9:47 AM EST Images from the original note were not included. [facility] [place] [facility] Department of Cardiovascular Medicine SECTION OF CARDIOVASCULAR IMAGING OUTPATIENT VISIT DATE November 25, 2022 OUTPATIENT VISIT TYPE ESTABLISHED PRIMARY CARE PHYSICIAN: Kylah Palma [address] [place] [address] REFERRING PHYSICIAN: SELF CHIEF COMPLAINT: Follow up HISTORY OF PRESENT ILLNESS: Ms. Cavanaugh is a 42 year old woman who [...] She has followed with Dr. Recinos in EP and was transitioned to Sotalol 08/2020. Underwent [...] fibrillation (HCC) CHADS score 0 Cardiomyopathy (HCC) 5/23/14 Family history of hypertrophic cardiomyopathy 01/18/2014 Impaired glucose tolerance 01/21/2011 Left bundle branch block Obesity Ventricular tachyarrhythmia (HCC) 02/2014 Pbyyi-Wgwedmcwi-Jnkam (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 Cardioverted with 150j under sedation DEFIBRILLATOR SURGERY 02/24/2014 ICD, redo WPW & atrial fib ablation EPS: DEFIB. SURGERY 05/16/2021 Exchange of a NetStreams SQ-RX 1010 pulse generator with a Estimize PAST SURGICAL HISTORY OF 07/06/2014 WPW ablation [...] CABG 2013 Lipids Father Heart Maternal Grandmother IN age 72 None Maternal Grandfather age 46-suddenly Alcohol/Drug Paternal Grandfather ETOH Diabetes Maternal Aunt [...] 79 Resp 12 Ht 172.7 cm (5' 8) Wt 118.8 kg (262 lb) LMP 01/06/2012 KrX536% BMI 39.84 kg/m General: Well appearing, in [...] LBBB Echo from 10/22/2022 reviewed. IMPRESSION: Ms. Cavanaugh is a 42 year old woman with [...] 2-3 days prior to surgery. CONTACT INFORMATION: Aly Weber Department of Cardiovascular Medicine [facility] [place] [facility] Desk [address] [place] [address] Office - [phone] extension [phone] Office Appointments: [phone] -[phone] extension [phone] documented in this encounterGreene Memorial Hospital02-15-2023 Instructions* Patient Instructions* Tri Hammond MD - 11/19/2022 10:36 AM EST -preservative-free artificial tears four times a day both eyes -restasis twice a day both eyes -doxycyline 50mg daily documented in this encounterGreene Memorial Hospital02-15-2023 History of Present illness Narrative* Tri Hammond MD - 11/19/2022 10:17 AM EST Assessment [...] others. I have seen and examined Chavo Cavanaugh. I have discussed the case and the management of this patient's care with the Resident/Fellow, if applicable. I also have reviewed and agree with the assessment and plan as stated above and agree withall of its relevant components. Tri Hammond MD November 19, 2022 10:17 AM documented in this encounterGreene Memorial Hospital02-14-2023 History of Present illness Narrative* Juan Antonio Bower - 11/18/2022 1:11 PM EST CMN RECEIVED BY [facility] VIA FAX, COMPLETED, AND PLACED IN PROVIDER MAILBOX FOR SIGNATURE Juan Antonio Bower, Administration Assistance 11/18/22 [facility] COMPANY SENDING CMN: Andrey SIGNED AND DATED CMN, FAXED TO DME & CONFIRMATION PAGE RECEIVED: 11/19/22 documented in this encounterGreene Memorial Hospital02-10-2023 Miscellaneous Notes* Telephone Encounter - Heather Moulton RN - 11/14/2022 12:42 PM EST Contacted [employer]. PA submitted. PA approved 10/15/2022-11/14/2023 * Telephone Encounter - [facility] - 11/10/2022 3:52 PM EST Images from the original note were not included. 10/10/2022 Need Prior auth - Medication documented in this encounterGreene Memorial Hospital02-01-2023 History of Present illness Narrative* Gwendolyn Alonso Ma - 11/05/2022 9:36 AM EST Order for New PAP set up faxed to DME; Andrey Stevens/Cyn # [phone]------FAX# [phone] Required documentation sent; Rx for PAP device, sleep studies, insurance, patient demographics, OV notes prior to sleep studies and current OV notes. Confirmed and filed. Gwendolyn Alonso Ma * Amy Alvarado APRN.WATER RESOURCE PROJECT MANAGER - 11/05/2022 8:45 AM EST Images from the original note were not included. [facility] New Patient Evaluation PATIENT NAME: Chavo Cavanaugh CONSULTING PROVIDER: Siobhan Sellers [address] [facility] [address] REASON FOR CONSULT: Siobhan Sellers sends the patient for an opinion about QUINTON and treatment. My findings and recommendations will be transmitted electronically via shared medical record to the consulting provider. 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 Cardioverted with 150j under sedation DEFIBRILLATOR SURGERY 02/24/2014 ICD, redo WPW & atrial fib ablation EPS: NEELIMA. SURGERY 05/16/2021 Exchange of a NetStreams SQ-RX 1010 pulse generator with a [place]ON PAST SURGICAL HISTORY OF 07/06/2014 WPW ablation PAST SURGICAL HISTORY OF 11/21/2019 MVr, myectomy, PVI, LAAC TYMPANOSTOMY LOCAL/TOPICAL ANESTHESIA Right ACTIVE PROBLEM LIST Impaired Glucose Tolerance Vaginal High Risk Hpv Dna Test Positive Palpitation Hocm (Hypertrophic Obstructive Cardiomyopathy) (Hcc) Body Mass Index 40.0-44.9, Adult (Hcc) Atrial Fibrillation (Hcc) Ventricular Tachyarrhythmia Zyktj-Fpcjlzxpv-Rfowp (Wpw) Syndrome Thyroid Nodule, Cold Icd (Implantable [...] CABG 2013 Lipids Father Heart Maternal Grandmother IN age 72 None Maternal Grandfather age 46-suddenly Alcohol/Drug Paternal Grandfather ETOH Diabetes Maternal Aunt Diabetes Maternal Uncle Diabetes Brother Heart Sister HOCM s/p ICD There is a family history of: Sleep apnea. 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 - Will start Auto CPAP 4-8 cmH2O with a Nasal pillows mask. - I will have a prescription sent to a [employer] equipment) company - [employer] who will be calling you in the next 1-2 weeks or so. Please call them directly or us if you do not hear from them in this time frame. - You should be eligible for new supplies approximately every 3-6 months, depending on your insurance coverage. - If your mask doesn't fit well, call the [employer] company before 30 days are up to get a new mask without an additional charge. - Insurance requires regular usage and periodic office follow ups for PAP therapy, to continue to cover supplies. INSURANCE REQUIREMENTS: - Your insurance requires a xmlk-bb-dxub follow up visit within a 31-90 day [...] which included preparing to see the patient, vvpu-ei-bxag patient care, completing clinical documentation, obtaining and/or reviewing separately obtained history, performing a medically appropriate examination, counseling and educating the pat ient/family/caregiver, ordering medications, tests, or procedures, and communicating results to thepatient/family/caregiver. documented in this encounterGreene Memorial Hospital02-01-2023 Instructions* Patient Instructions* Amy Alvarado APRN.CNP - 11/05/2022 9:02 AM EST PLAN: - Will start Auto CPAP 4-8 cmH2O with a Nasal pillows mask. - I will have a prescription sent to a [employer] equipment) company - [employer] who will be calling you in the next 1-2 weeks or so. Please call them directly or us if you do not hear from them in this time frame. - You should be eligible for new supplies approximately every 3-6 months, depending on your insurance coverage. - If your mask doesn't fit well, call the [employer] company before 30 days are up to get a new mask without an additional charge. - Insurance requires regular usage and periodic office follow ups for PAP therapy, to continue to cover supplies. INSURANCE REQUIREMENTS: - Your insurance requires a fhgb-ui-niuq follow up visit within a 31-90 day [...] as instructed by the respiratory therapist with [facility]. Attach one end of your 6-foot tubing [...] mask and headgear as instructed by the photo technologist or respiratory therapist. The mask should [...] thoroughly and dry with paper towels. Avoid bridge painter helper that contain fragrance or conditioners, as [...] machine still fails to operate, please call [phone] or your home care company for assistance. [...] to last 9-12 months. Refer to the owner consulting engineer s manual for more information. Important Safety [...] follow to watch a PAP education video: http://my.[facility].org/home_care/services/home_respiratory_therapy.aspx http://www.youArviragoube.com/watch?v=peJ_epDGzEw http://my.[facility].org/neurological_institute/dxaly-jatrpwofh-vflmyl/[facility]/pap-therapy.aspx PAP Supply Guidelines Below are the guidelines [...] the central scheduling system for the [facility] [place] at [phone]. - If you are a [facility] patient, call [phone] for questions - Any other locations you have seen me at, please call [phone] opt 5 for questions. - May use Message My Doc through My Chart for questions. - [facility] website: [facility].org/sleep documented in this encounterGreene Memorial Hospital02-01-2023 Nurse Note* Gwendolyn Alonso Ma - 11/05/2022 8:36 AM EST Patient presents with: New Patient Evaluation: Referred by Dr Sellers of the BMI clinic for possible QUINTON. Here to review PSG slpit done 10/21/2022 and discuss treatment options. documented in this encounterGreene Memorial Hospital01-18-2023 History of Present illness Narrative* Dillan Owen APRN.GENIE - 10/22/2022 9:39 AM EST Images from the original note were not included. [facility] [place] [facility] Department of Cardiovascular Medicine SECTION OF CARDIOVASCULAR IMAGING OUTPATIENT VISIT DATE October 22, 2022 OUTPATIENT VISIT TYPE ESTABLISHED PRIMARY CARE PHYSICIAN: Kylah Palma [address] [place] [address] REFERRING PHYSICIAN: No referring provider defined for this encounter. CHIEF COMPLAINT: Follow up HISTORY OF PRESENT ILLNESS: Ms. 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 Cardioverted with 150j under sedation DEFIBRILLATOR SURGERY 02/24/2014 ICD, redo WPW & atrial fib ablation EPS: DEFIB. SURGERY 05/16/2021 Exchange of a NetStreams SQ-RX 1010 pulse generator with a Estimize PAST SURGICAL HISTORY OF 07/06/2014 WPW ablation [...] CABG 2013 Lipids Father Heart Maternal Grandmother IN age 72 None Maternal Grandfather age 46-suddenly Alcohol/Drug Paternal Grandfather ETOH Diabetes Maternal Aunt [...] clinic visits. Echo 10/22/22: Pending IMPRESSION: Ms. Cavanaugh is a 42 year old female with [...] with more than 50% of the total zvwu-bz-rfro time of the visit in counseling / coordination of care. Kishore Owen APRN.WATER RESOURCE PROJECT MANAGER documented in this encounterGreene Memorial Hospital01-18-2023 Instructions* Patient Instructions* Jamaal Patterson RD - 10/22/2022 9:03 AM EST Nutrition Action Plan Please call [phone], option 5. Leave a message for the [...] 2 weeks before surgery documented in this encounterGreene Memorial Hospital01-18-2023 History of Present illness Narrative* Jamaal Patterson RD - 10/22/2022 8:21 AM EST Nutritional Therapy Re-Assessment Nutrition Diagnosis: Overweight/obesity, related to, food/nutrition - related knowledge deficit, asevidenced by BMI above normative standard for age and gender RECOMMENDED MALNUTRITION DIAGNOSIS: NO MALNUTRITION IDENTIFIED NUTRITION CARE PLAN: Nutrition Intervention 10/22/2022: Please call [phone], option 5. Leave a message for the [...] guidelines for weight loss surgery and has [employer] insurance and therefore may be required to [...] Your Guide to Surgery by next session https://my.[facility].org/-/scassets/files/org/bariatric/guides/bmiguidebook-[email or web address].ashx?la=e n MET 2. Do not skip meals. MET 3. Use protein shake 1x per day to replace any skipped meals or for breakfast MET Aim for shakes ~200 calories, ~20-30 grams of protein, <5 grams of total sugar. Here are a few examples of approved options for the 2 week pre-op liquid diet: Slim Fast Advanced Nutrition, [place] Breakfast Essentials Light Start mixed with fat free or 1% milk, [...] 1 Bariatric Multivitamin (capsule or chewable) and 6121-7282 mg Calcium Citrate per day www.Eurotechnology JapanareLucky Pai.Keystone Technology - Bariatric Choice: 1 Bariatric Multivitamin capsule and 1011-7414 mg Calcium Citrate per day OR 4 Complete Multivitamin chewables per day www.bariatricchoice.com - Bariatric Advantage: 2 Multivitamin chewables and 3 Calcium Citrate chewables per day www.bariatricadvantage.Keystone Technology - Celebrate: 2 Multivitamin (chewables) OR 3 Multivitamin (capsules) PLUS 3 Calcium Citrate soft chews per day AND Iron (chewable, capsule, or soft chew for a total of 45-60 mg per day) www.celebratevitamins.Keystone Technology - Bariatric Pal: 1 Bariatric Multivitamin capsule and 5579-1718 mg Calcium Citrate per day www.store.bariatricpal.com/collections/bariatric-vitamins Take [...] Readings: Date: Ht: 10/22/2022 172.7 cm (5' 8) Current weight: Last 1 Encounter Wt Readings: [...] Likelihood of Adherence: High Referred/Supervised by: Self/Chris MNT Billing Type: Re-assess/15 min 1 unit SIGNATURE: Jamaal Patterson RD PATIENT NAME: Chavo Cavanaugh DATE: October 22, 2022 TIME: 9:02 AM documented in this encounterGreene Memorial Hospital01-18-2023 History of Present illness Narrative* Yasmin Frausto - 10/22/2022 5:05 AM EST Sleep Study Check-In Documentation Date: October 22, 2022 Name: Chavo Cavanaugh Patient was accompanied by Self. Location: [place] Latex allergy: No Tape allergy: No Current medications were reviewed with the patient:Yes Sleep aid taken by patient for the sleep study: Reedy of sleep aid: Not Applicable Procedure was explained to the patient and all questions were answered. PAP treatment discussed and shown to patient: Yes If PAP used enter mask info: Mask Name: AirFit P10 Make: ResMed MaskTypeNasal Pillow Mask SizeMedium Chin Sharp Used No Knowledge Program (KP): KP was not completed in epic by patient and accepted Study type: Split Study-Polysomnogram with CPAP titration Adverse Event: No (If yes create a new abstract) SERS Event: No Comments: Patient was advised to follow up with their ordering provider regarding test results Yasmin Frausto (Siobhan Salazar [facility]) * Luisa Foy MD - 10/09/2022 8:36 AM EST October 09, 2022 Standing PSG Orders signed in the last 90 days None Future PSG Orders signed in the last 90 days Ordered Auth. provider POLYSOMNOGRAM (PSG) [[id number]] 09/18/22 Siobhan Sellers APRN.WATER RESOURCE PROJECT MANAGER Assoc. diagnoses: Class 3 obesity with alveolar hypoventilation, serious comorbidity, and body massindex (BMI) of 40.0 to 44.9 in adult (HCC) [E66.2, Z68.41], Obstructive sleep apnea (adult) (pediatric) [G47.33], HOCM (hypertrophic obstructive cardiomyopathy) ([facility]) [I42.1], Atrial fibrillation, unspecified type ([facility]) [I48.91] Q: Indications - Select All That [...] Atrial fibrillation (HCC) CHADS score 0 Cardiomyopathy ([facility]) 02/24/14 Family history of hypertrophic cardiomyopathy 01/18/2014 Impaired glucose tolerance 01/21/2011 Left bundle branch block Obesity Ventricular tachyarrhythmia 02/2014 Gecfp-Lutdtsocf-Apsts (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 Indications for study: QUINTON suspected with comorbid medical or sleep disorders: Heart failure or other uakcencp-ur-zeinei cardiac disease Significant, persistent cardiac arrhythmias Morbid [...] Luisa Foy MD 10:28 AM, 10/09/2022 * Stephieciro Polk - 10/08/2022 3:02 PM EST October 08, 2022 An order has been received for Polysomnogram (PSG) from Dr. Siobhan Sellers,, a [facility] Staff. Visit prep complete. Comments :No The sleep study is scheduled for 10/21. Insurance: Payor: ANTHEM / Plan: BLUE CARD PPO OOS / Product Type: PPO / Payer/Plan Subscr Sex Relation Sub. Ins. ID Effective Group Num 1. ANTHEM - BLUE* CHAVO CAVANAUGH 1980 Female Self [id number] 10[birth year]/20 [id number] [id number] 2. DENTAL - METL* CHAVO CAVANAUGH 1980 Female Self [id number] 10[birth year]19 [id number] [id number] Stephie Polk documented in this encounterGreene Memorial Hospital12-29-2022 History of Present illness Narrative* Camelia Arias RT(R) - 10/02/2022 8:20 AM EST Radiology Service Progress Note PATIENT NAME: Chavo Cavanaugh DATE OF SERVICE: October 02, 2022 TIME: [...] 02, 2022 8:33 AM documented in this encounterGreene Memorial Hospital12-26-2022 Instructions* Patient Instructions* Bridget Ruano APRN.[employer] - 09/29/2022 12:22 PM EST ASSESSMENT/PLAN: 1. [...] Discussed expected course of illness Bridget Ruano APRN.[employer] EMERGENCY DEPARTMENT LOW BACK PAIN GENERAL INFORMATION: [...] your legs or feet. 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 Cardioverted with 150j under sedation DEFIBRILLATOR SURGERY 02/24/2014 ICD, redo WPW & atrial fib ablation EPS: DEFIB. SURGERY 05/16/2021 Exchange of a [employer]reams SQ-RX 1010 pulse generator with a Estimize PAST SURGICAL HISTORY OF 07/06/2014 WPW ablation [...] CABG 2013 Lipids Father Heart Maternal Grandmother IN age 72 None Maternal Grandfather age 46-suddenly Alcohol/Drug Paternal Grandfather ETOH Diabetes Maternal Aunt [...] Discussed expected course of illness Bridget Ruano APRN.GENIE documented in this encounterGreene Memorial Hospital12-21-2022 History of Present illness Narrative* Yaima Arevalo RDMS - 09/24/2022 1:00 PM EST Radiology Service Progress Note PATIENT NAME: Chavo Cavanaugh DATE OF SERVICE: September 24, 2022 TIME: [...] 24, 2022 1:25 PM documented in this encounterGreene Memorial Hospital12-19-2022 Miscellaneous Notes* Telephone Encounter - Clementina Ny RN - 09/22/2022 3:14 PM EST BMI SPECIALTY CARE COORDINATION TELEPHONE ENCOUNTER Left message on patient's voicemail in regards to 09/[address] Mercer. Requested to change appt to earlier that day or virtual on 09/23. Provided call back number. Clementina Ny RN September 22, 2022 3:15 PM documented in this encounterGreene Memorial Hospital12-07-2022 Instructions* Patient Instructions* Edna Leigh RD - 09/10/2022 1:33 PM EST Nutrition Intervention 09/10/2022: Modify type and amount of foods consumed for meals and snacks 1. Read Nutritional Guidelines Section of Your Guide to Surgery by next session https://my.[facility].org/-/scassets/files/org/bariatric/guides/bmiguidebook-[email or web address]?la=e n 2. Do not skip meals. 3. Use protein shake 1x per day to replace any skipped meals or for breakfast Aim for shakes ~200 calories, ~20-30 grams of protein, <5 grams of total sugar. Here are a few examples of approved options for the 2 week pre-op liquid diet: Slim Fast Advanced Nutrition, [place] Breakfast Essentials Light Start mixed with fat free or 1% milk, [...] in the AM, 2 in the PM) www.bariatricfusion.Keystone Technology - [employer]: 1 Bariatric Multivitamin (capsule or chewable) and 3381-2866 mg Calcium Citrate per day www.[employer]rium Solar - Bariatric Choice: 1 Bariatric Multivitamin capsule and 2646-7188 mg Calcium Citrate per day OR 4 Complete Multivitamin chewables per day www.bariatricchoice.com - Bariatric Advantage: 2 Multivitamin chewables and 3 Calcium Citrate chewables per day www.bariatricadvantage.Keystone Technology - Celebrate: 2 Multivitamin (chewables) OR 3 Multivitamin (capsules) PLUS 3 Calcium Citrate soft chews per day AND Iron (chewable, capsule, or soft chew for a total of 45-60 mg per day) www.ViewdleteVangard Voice Systemss.Keystone Technology - Bariatric Pal: 1 Bariatric Multivitamin capsule and 0888-7796 mg Calcium Citrate per day www.store.bariatricpal.com/collections/bariatric-vitamins Take [...] 8:45am with Jamaal Patterson documented in this encounterGreene Memorial Hospital12-07-2022 History of Present illness Narrative* Edna [...] Your Guide to Surgery by next session https://my.[facility].org/-/scassets/files/org/bariatric/guides/bmiguidebook-[email or web address].[email or web address]?la=e n 2. Do not skip meals. 3. Use protein shake 1x per day to replace any skipped meals or for breakfast Aim for shakes ~200 calories, ~20-30 grams of protein, <5 grams of total sugar. Here are a few examples of approved options for the 2 week pre-op liquid diet: Slim Fast Advanced Nutrition, [place] Breakfast Essentials Light Start mixed with fat free or 1% milk, [...] in the AM, 2 in the PM) www.bariatricfusion.Keystone Technology - [employer]: 1 Bariatric Multivitamin (capsule or chewable) and 2428-9693 mg Calcium Citrate per day www.Eurotechnology JapanareClarient - Bariatric Choice: 1 Bariatric Multivitamin capsule and 2626-9370 mg Calcium Citrate per day OR 4 Complete Multivitamin chewables per day www.bariatricchoice.Keystone Technology - Bariatric Advantage: 2 Multivitamin chewables and 3 Calcium Citrate chewables per day www.bariatricadvantage.Keystone Technology - Celebrate: 2 Multivitamin (chewables) OR 3 Multivitamin (capsules) PLUS 3 Calcium Citrate soft chews per day AND Iron (chewable, capsule, or soft chew for a total of 45-60 mg per day) www.Livongo Healthebratevitamins.Keystone Technology - Bariatric Pal: 1 Bariatric Multivitamin capsule and 9622-8332 mg Calcium Citrate per day www.store.bariatricpal.com/collections/bariatric-vitamins Take [...] attempts include IF, weight loss medication (started WegovyJuly 2020 and has since lost ~30 lbs). [...] is routine and includes cardio exercise 3x/week. [place] body weight: 164 lbs. Excess body weight: 115 lbs. Goal weight pre-op: 267 lbs. Protein needs estimated: 89 gm (1.2 g protein/kg IBW) Patient meets the National Institutes of Health guidelines for weight loss surgery and has [employer] Insurance therefore is required to complete 0 [...] Readings: Date: Ht: 01/23/2022 172.7 cm (5' 8) Current weight: Last 1 Encounter Wt Readings: Date: Wt: 07/30/2022 126.7 kg (279 lb 6.4 oz) Body mass index is 42.54 kg/m . Resting Metabolic Rate: 1977 Malnutrition Screening Significant unintentional weight loss? No [...] SIGNATURE: Edna Leigh RD PATIENT NAME: Chavo Cavanaugh DATE: September 10, 2022 TIME: 10:17 AM documented in this encounterGre[facility]12-[facility]-2022 Miscellaneous Notes* Letter - Mammography Coordinator - 09/08/2022 9:51 AM EST September 08, 2022 PID: [id number] Chavo Cavanaugh [address] [place] [address] Dear Ms. Cavanaugh, We are pleased to inform you that [...] report will be kept on file at [facility] as part of your permanent medical record and are available for your continuing care. Thank you for allowing us to help in meeting your health care needs. Sincerely, Dr. Edwards Interpreting Radiologist [facility] (Normal over 40) documented in this encounterGreene [facility] Hospital12-01-2022 History of Present illness Narrative* Vianey Valencia RT(R) - 09/04/2022 10:50 AM EST Radiology Service Progress Note PATIENT NAME: Chavo Cavanaugh DATE OF SERVICE: September 04, 2022 TIME: [...] 04, 2022 10:36 AM documented in this encounterGreene [facility] Hospital11-03-2022 Miscellaneous Notes* Telephone Encounter - Radha Dinero - 08/07/2022 9:01 AM EDT Images from the original note were not included. documented in this [facility]11-01-2022 Miscellaneous Notes* Telephone Encounter - [facility] - 08/05/2022 7:56 AM EDT Call from pharmacy requesting refill. Requested Prescriptions Pending Prescriptions Disp Refills metoprolol succinate ER (TOPROL XL) 25 mg 24 hr tablet 60 tablet 5 Sig: Take 1.5 tablets by mouth twice daily with meals. Patient last seen 01/27/2020 [facility] documented in this encounterGreene [facility] Hospital10-17-2022 History of Present illness Narrative* Sparkle Gimenez APRN.CNP - 07/21/2022 4:16 PM EDT Subjective Patient [...] history is provided by the patient. No speech and language tutor was used. 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 Cardioverted with 150j under sedation DEFIBRILLATOR SURGERY 02/24/2014 ICD, redo WPW & atrial fib ablation EPS: DEFIB. SURGERY 05/16/2021 Exchange of a NetStreams SQ-RX 1010 pulse generator with a Estimize PAST SURGICAL HISTORY OF 07/06/2014 WPW ablation [...] CABG 2012 Lipids Father Heart Maternal Grandmother IN age 72 None Maternal Grandfather age 46-suddenly Alcohol/Drug Paternal Grandfather ETOH Diabetes Maternal Aunt Diabetes Maternal Uncle Diabetes Brother Heart Sister HOCM s/p ICD Social History Tobacco Use Smoking status: Never Smokeless tobacco: Never Vaping Use Vaping Use: Never used Substance Use Topics Alcohol use: No Drug use: No ASSESSMENT/PLAN: 1. [place] eye disease of both eyes - ICD9: 372.03, ICD10: H10.023 Polytrim every 4 hours for 7 days. We will follow-up if anything changes. Patient was okay with this care plan. Sparkle Gimenez APRN.CNP documented in this encounterGreene [facility] Hospital09-08-2022 Instructions* Patient Instructions* Radha Newby APRN.CNP - 06/12/2022 7:58 AM EDT Fact Sheet for Patients, Parents, and Caregivers Emergency Use Authorization (EUA) of Bebtelovimab for Coronavirus Disease 2019 (COVID-19) You are being given this Fact Sheet because your healthcare provider believes it is necessary to provide you or your child with bebtelovimab for the treatment of bzys-pq-heyxsypv coronavirus disease 2019 (COVID-19) in adults and [...] investigational medicine used for the treatment of dabx-rt-uodxfmur coronavirus disease 2019 (COVID-19) in adults and [...] effectiveness of using bebtelovimab for thetreatment of xjwj-bo-ybmrcekd COVID-19. For more information on EUA, see [...] therapy and/or respiratory support due to underlying fpl-INNNF-[id number] related comorbidity. What should I tell my healthcare provider before I or my child receive bebtelovimab? Tell your healthcare provider about all your or your child s medical conditions including if you oryour child: Have any allergies Are or plan to become Are or plan to breastfeed Have any serious illnesses Are taking any medicines (prescription, and oymd-zgy-nftqwry, vitamins, or herbal products) How will I [...] to treat people with COVID-19. Go to https://www.fda.gov/hvohvdmfg-ssxeqxdzojkm-ced-response/ore-xfowv-rjyaixchwb-and -policy-framework/uilcjwwsi-vez-yctsdreeuelkp for information on the emergency use of [...] go away. Report side effects to FDA MedWatch at www.fda.gov/medwatch, or call 1-081-LGY-2846 or to [employer] as shown below. Email Fax Number Telephone Number [email or web address] 1-855-lillyc19 ( ) How can I learn more about COVID-19? Ask your healthcare provider Visit https://www.cdc.gov/COVID19 Contact your local or state public health department What is an Emergency Use Authorization? The [place] FDA has made bebtelovimab available under an emergency access mechanism called anEmergency Use Authorization (EUA). The EUA is supported by a Job Tracer of Health and Human Service (HHS) declaration that circumstances exist to justify the emergency use of drugs and biological products during the COVID- 19 pandemic. Bebtelovimab for the treatment of gkwl-sv-vynqntrw COVID-19 in adults and children (12 years [...] telephone number provided below. Website Telephone Number www.[employer]/bebtelovimab 8-301-BfdyyQ71 ( ) Literature issued November 15, 2021 [employer], [place] [address], [place] Copyright 2021, [employer]. All rights reserved. 4.3-UJY-9105-EUA [facility]-[id number] documented in this encounterGreene [facility] Hospital09-08-2022 History of Present illness Narrative* Radha Newby APRN.CNP - 06/12/2022 7:46 AM EDT Chief Complaint [...] agrees to the visit: Yes Patient Location: [facility] Chavo Cavanaugh is a 41 year old female who [...] branch block Obesity Ventricular tachyarrhythmia (HCC) 02/2014 Wmxht-Wxnjvawxj-Hvfjl (WPW) syndrome s/p ablaton 02/2014 and 08/2014 Previous Surgical History PAST SURGICAL HISTORY Procedure Laterality Date CARDIOVERSION 08/03/2020 recurrent AF 150-180s. Cardioverted with 150j under sedation DEFIBRILLATOR SURGERY 02/24/2014 ICD, redo WPW & atrial fib ablation EPS: DEFIB. SURGERY 05/16/2021 Exchange of a NetStreams SQ-RX 1010 pulse generator with a BOSTON PAST SURGICAL HISTORY OF 07/06/2014 WPW ablation PAST SURGICAL HISTORY OF 11/21/2019 MVr, myectomy, PVI, LAAC TYMPANOSTOMY LOCAL/TOPICAL ANESTHESIA Right Family History FAMILY HISTORY Problem Relation Age of Onset Diabetes Mother Hypertension Mother Thyroid Mother Coronary Artery Disease Mother CABG 2013 Lipids Father Heart Maternal Grandmother IN age 72 None Maternal Grandfather age 46-suddenly Alcohol/Drug Paternal Grandfather ETOH Diabetes Maternal Aunt [...] Alcohol use: No Drug use: No EXAM: LMP 01/06/2012 Limited exam as visit was completed [...] proceed. Order placed. - INTERMITTENT PERIPHERAL DEVICE (NV,ID) - SODIUM CHLORIDE 0.9 % INJECTION SOLUTION [...] (87.5 MG/ML) INTRAVENOUS SOLUTION (EUA) Radha Newby APRN.CNP Discussed treatment plan and patient voices understanding. Patient's questions answered appropriately. Medications and potential side effects were discussed and patient voices understanding. Return to the office as scheduled or as needed for worsening/no improvement. Bebtelovimab Eligibility and Patient Discussion [facility] Formulary Restriction Criteria: Adult outpatients 18 [...] of transplant or on systemic therapy for ilymm-gfpbmv-vrop disease [] CAR T-cell/other cellular therapy recipients [...] The patient was provided electronically with the Fact Sheet for Patients, Parents and Caregivers. The patient was also instructed that in addition to the treatment with Bebtelovimab, he/she should continue to self-isolate and use infection control measures (e.g., wear mask, isolate, social distance, avoid sharing personal items, clean and disinfect high touch surfaces, and frequent handwashing) according to CDC guidelines. The patient stated understanding and gave verbal consent to proceeding with Bebtelovimab treatment. Radha Newby APRN.CNP June 12, 2022 7:59 AM * Vijaya Donnelly RPh - 06/12/2022 7:40 AM EDT COVID-19 Monoclonal Antibody Pharmacist Review Pharmacist has reviewed and verified eligibility for bebtelovimab infusion based on [facility] formulary restriction criteria. Date of Symptom Onset: 06/10/22 Date of Positive Test: 06/11/22 Criteria Met: Yes and pharmacist has determined that the patient is eligible for a COVID-19 monoclonal antibody. The patient's preferred site of infusion location is [facility] [x] Consult order for 'COVID TREATMENT REFERRAL' has been released Vijaya Donnelly RPh June 12, 2022 9:07 AM documented in this encounterGreene [facility] Hospital09-08-2022 Miscellaneous Notes* Addendum Note - Vijaya Donnelly RPh - 06/12/2022 7:40 AM EDTAddended by: VIJAYA DONNELLY on: 06/12/2022 09:07 AM Modules accepted: Orders documented in this encounterGreene [facility] Hospital09-07-2022 Instructions* Patient Instructions* Tony Tavares APRN.WATER RESOURCE PROJECT MANAGER - 06/11/2022 7:35 AM EDT How to [...] or concerning to you. documented in this encounterGreene Memorial Hospital09-07-2022 History of Present illness Narrative* Tony [...] branch block Obesity Ventricular tachyarrhythmia (HCC) 02/2014 [place]wai-Mfydkrhrw-Wmwiv (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 Cardioverted with 150j under sedation DEFIBRILLATOR SURGERY 02/24/2014 ICD, redo WPW & atrial fib ablation EPS: DEFIB. SURGERY 05/16/2021 Exchange of a Estimize SCIENTIFIC SQ-RX 1010 pulse generator with a [...] CABG 2013 Lipids Father Heart Maternal Grandmother IN age 72 None Maternal Grandfather age 46-suddenly Alcohol/Drug Paternal Grandfather ETOH Diabetes Maternal Aunt [...] supportive therapies. Patient will follow up [place] care provider as needed. Patient was instructed [...] of care. This note was generated using [employer] software. It may contain errors in wording, punctuation, or spelling. Tony Tavares APRN.WATER RESOURCE PROJECT MANAGER documented in this encounterGreene [facility] Hospital07-19-2022 Miscellaneous Notes* Telephone Encounter - [facility] - 04/22/2022 8:14 AM EDT Call from pharmacy requesting refill. Pending Prescriptions Disp Refills APIXABAN 5 MG TABLET 60 tablet 3 Sig: Take 1 tablet by mouth twice daily. OSITO: No Patient last seen 01/27/2020 [facility] documented in this encounterGreene Memorial Hospital05-19-2022 Miscellaneous Notes* Telephone Encounter - [facility] - 02/20/2022 8:12 AM EDT Call from patient e-mail requesting refill. Pending Prescriptions Disp Refills METOPROLOL SUCCINATE ER 25 MG TABLET,EXTENDED RELEASE 24 HR 60 tablet 5 Sig: Take 1.5 tablets by mouth twice daily with meals. OSITO: No Patient last seen 01/27/2020 [facility] [employer] documented in this encounterGreene Memorial Hospital05-05-2022 History of Present illness Narrative* Kylah Palma PA-C - 02/06/2022 2:40 PM EDT 41 year old female with c/o her for routine follow up Paroxysmal atrial fibrillation (hcc) (primary encounter diagnosis) Dilated cardiomyopathy (hcc) Acute on chronic diastolic (congestive) heart failure (hcc) Icd (implantable cardioverter-defibrillator) in place Hocm (hypertrophic obstructive cardiomyopathy) (hcc) Rgrow-thuiglgho-xazop (wpw) syndrome Left bundle branch block Ventricular tachyarrhythmia (hcc) Palpitation Chronic anticoagulation Cardiovascular interval hx: Doing really well. Has been seeing preventive cardiology and was placed on semaglutide which is significantly helped weight loss. Patient is exercising routinely and feels that she is gaining strength and durability. 01/03/2022 cardiovasc visit GRAIN TRADER Fawn Whiting: Making significant gains, continue semaglutide, [...] Dr. Oneyda Recinos 1st; Dr. Oneyda Plunkett Bow Tacker Dr. Gaston Eller HOCM Dr. 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 RV size WNL, RVSP WNL. LA mildly dilated, LVOT gradient 42mHg, with Valsalva 82mmHg poss due to midseptal and papillary Muscle coaptation. FH HOCM Current meds: Eliquis 5mg twice daily [...] CABG 2012 Lipids Father Heart Maternal Grandmother IN age 72 None Maternal Grandfather age 46-suddenly Alcohol/Drug Paternal Grandfather ETOH Diabetes Maternal Aunt Diabetes Maternal Uncle Diabetes Brother Heart Sister HOCM s/p ICD PAST MEDICAL HISTORY Diagnosis Date Atrial fibrillation (HCC) CHADS score 0 Cardiomyopathy (HCC) 02/24/14 Family history of hypertrophic cardiomyopathy 01/18/2014 Impaired glucose tolerance 01/21/2011 Left bundle branch block Obesity Ventricular tachyarrhythmia (HCC) 02/2014 Ovxhl-Hunybbyec-Jzboq (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 Cardioverted with 150j under sedation DEFIBRILLATOR SURGERY 02/24/2014 ICD, redo WPW & atrial fib ablation EPS: DEFIB. SURGERY 05/16/2021 Exchange of a NetStreams SQ-RX 1010 pulse generator with a BOSTON [...] Test Positive Palpitation Hocm (Hypertrophic Obstructive Cardiomyopathy) ([facility]) Obesity, Class Iii, Bmi 40-49.9 (Morbid Obesity) ([facility]) Atrial Fibrillation ([facility]) Ventricular Tachyarrhythmia ([facility]) Mzzvm-Qgkfvouhb-Hdhve (Wpw) Syndrome Thyroid Nodule, Cold Icd (Implantable Cardioverter-Defibrillator) in Place Pre-Op Testing Discharge Planning Issues Clinical summary Acute On Chronic Diastolic (Congestive) Heart Failure ([facility]) Summary Cardiomyopathy ([facility]) Left Bundle Branch Block Paroxysmal Atrial Fibrillation ([facility]) Class 3 Severe Obesity Due to Excess Calories Without Serious Comorbidity With Body Mass Index (Bmi) of 45.0 to 49.9 in Adult ([facility]) Current Outpatient Medications Medication Sig Dispense Refill [...] POSIFLUSH) 10 mL INTRAVENOUS DIRECTED PRN Lora Young APRN.WATER RESOURCE PROJECT MANAGER COVID-19 VACCINE(1) Never done MAMMOGRAM due on [...] significant gains with exercise and strengthening 6. Jwpyh-Zpbewilbi-Ifbun (WPW) syndrome - ICD9: 426.7, ICD10: I45.6 [...] - ICD9: 795.15, ICD10: R87.811 Following with TAXATION ECONOMIST carefully 16. Patient under care of multiple providers - ICD9: V49.89, ICD10: Z78.9 Recorded under problem list. Kylah Palma PA-C documented in this encounterGreene Memorial Hospital04-21-2022 Instructions* Patient Instructions* Fawn Whiting APRN.CNP - 01/23/2022 9:34 AM EDT your prior authorization for wegovy will on 06/20/22 call our office at [phone] or send [employer] message with any questions or concerns documented in this encounterGreene Memorial Hospital04-21-2022 History of Present illness Narrative* Fawn Whiting APRN.CNP - 01/23/2022 9:16 AM EDT Images from the original note were not included. [facility] [place] [facility] Department of Cardiovascular Medicine SECTION OF PREVENTIVE CARDIOLOGY 01/23/2022 Chavo Cavanaugh CURRENT MEDS: Current Outpatient Medications Medication Sig [...] ALLERGIES No Known Allergies CHIEF COMPLAINT: Chavo Cavanaugh is a 41 year old White female [...] with the prior echocardiographic exam performed on 04/27/2020 There is no significant change. * * * Final * * * Complete Results Last EKG Result Conclusion ECG COMPLETE Collected: 05/16/2021 10:40 AM (Final result) Impression: NORMAL SINUS RHYTHM COMPLETE LEFT BUNDLE BRANCH BLOCK ABNORMAL ECG Confirmed by JU PHIPPS MD ([id number]) on 05/28/2021 1:05:44 PM Complete Results Ejection [...] (H) 4.3 - 5.6 % Final Comment: [place] Diabetes Association guidelines indicate that patients with [...] 74 - 99 mg/dL Final Comment: The [place] Diabetes Association (ADA) provides guidance for cutoff [...] Standards of Medical Care in Diabetes 2016, [place] Diabetes Association. Diabetes Care. 2016.39(Suppl 1). TSH [...] Shaw, et al. 2017 Guidelines of the [place] Thyroid Association for the Diagnosis and Management [...] 45.8 48.3 - IMPRESSION: In summary, Ms. Cavanaugh is a 41 year old female who [...] 03/19/2021 HDL Cholesterol 36 01/27/2020 LDL Chol, [place] 80 03/19/2021 LDL Chol, [place] 92 01/27/2020 PLAN: -Limit saturated fats, red meat, processed foods, fried foods, baked goods Pre-diabetes: HBA1C, Cyn 6.0 01/07/2021 HBA1C, Cyn 5.7 04/27/2020 HBA1C, [place] 5.6 11/25/2019 PLAN: -continue metformin 1000mg daily [...] from olive oil, olives, nuts, and avocado. [place] 3 fats are another heart healthy fat [...] please let us know. [facility] Dr Vasquez [facility]19[facility] AMBULATORY PATIENT EDUCATION Topic: Exercise, Nutrition and Medications/Supplements Instruction Provided To: Patient Cognitive Ability: Alert/Oriented Barriers: None Motivation to Learn: Interested Methods of Instruction: Verbal instruction and/or handouts. Patient Leans Best By: Multiple Methods Patient Verbalized: Understanding I personally spent 25 minutes in total time involved in the management and care of this patient. Fawn Whiting APRN.GENIE documented in this encounterGreene Memorial Hospital02-15-2021 History of Present illness Narrative* Elida Malik (Rt), Tech - 11/19/2020 2:10 PM EST Radiology Service Progress Note PATIENT NAME: Chavo Cavanaugh DATE OF SERVICE: November 19, 2020 TIME: [...] 19, 2020 2:09 PM documented in this encounterGreene Memorial Hospital02-18-2020 History of Past illness Narrative* Problem Noted Date Resolved Date Stress hyperglycemia 11/22/2019 11/22/2019 Overview: History/Assessment: BG controlled Plan: Start SSI coverage Obesity, Class II, BMI 35-39.9 11/22/2019 0 11/22/2019 Postoperative pain 11/21/2019 11/22/2019 Overview: History: No PMH of chronic pain. Assessment: Pain controlled Plan: Continue Fen [employer]ING, toradol, tylenol, and prn percolone Atelectasis 11/21/2019 11/22/2019 Overview: History: Postoperative Assessment: Grade I Airway on 1L NC Plan: OOB, wean o2, and pep Family history of hypertrophic cardiomyopathy 09/22/2018 Irregular menstrual cycle 11/05/20112011 Placenta previa without hemorrhage, antepartum 1 10/16/2008 Supervision of normal first 03/11/2008 03/27/2009 documented as of this encounter (statuses as of 01/13/2022) [facility] History of Past illness Narrative* Problem Noted Date Resolved Date Stress hyperglycemia 11/22/2019 11/22/2019 Overview: History/Assessment: BG controlled Plan: Start SSI coverage Obesity, Class II, BMI 35-39.9 11/22/2019 0 11/22/2019 Postoperative pain 11/21/2019 11/22/2019 Overview: History: No PMH of chronic pain. Assessment: Pain controlled Plan: Continue Fen [employer]ING, toradol, tylenol, and prn percolone Atelectasis 11/21/2019 11/22/2019 Overview: History: Postoperative Assessment: Grade I Airway on 1L NC Plan: OOB, wean o2, and pep Family history of hypertrophic cardiomyopathy 09/22/2018 Irregular menstrual cycle 11/05/20112011 Placenta previa without hemorrhage, antepartum 1 10/16/2008 Supervision of normal first 03/11/2008 03/27/2009 documented as of this encounter (statuses as of 01/20/2022) [facility] History of Past illness Narrative* Problem Noted Date Resolved Date Stress hyperglycemia 11/22/2019 11/22/2019 Overview: History/Assessment: BG controlled Plan: Start SSI coverage Obesity, Class II, BMI 35-39.9 11/22/2019 0 11/22/2019 Postoperative pain 11/21/2019 11/22/2019 Overview: History: No PMH of chronic pain. Assessment: Pain controlled Plan: Continue Fen [employer]ING, toradol, tylenol, and prn percolone Atelectasis 11/21/2019 11/22/2019 Overview: History: Postoperative Assessment: Grade I Airway on 1L NC Plan: OOB, wean o2, and pep Family history of hypertrophic cardiomyopathy 09/22/2018 Irregular menstrual cycle 11/05/20112011 Placenta previa without hemorrhage, antepartum 1 10/16/2008 Supervision of normal first 03/11/2008 03/27/2009 documented as of this encounter (statuses as of 01/23/2022) [facility] History of Past illness Narrative* Problem Noted Date Resolved Date Stress hyperglycemia 11/22/2019 11/22/2019 Overview: History/Assessment: BG controlled Plan: Start SSI coverage Obesity, Class II, BMI 35-39.9 11/22/2019 0 11/22/2019 Postoperative pain 11/21/2019 11/22/2019 Overview: History: No PMH of chronic pain. Assessment: Pain controlled Plan: Continue Fen [employer]ESSING, toradol, tylenol, and prn percolone Atelectasis 11/21/2019 11/22/2019 Overview: History: Postoperative Assessment: Grade I Airway on 1L NC Plan: OOB, wean o2, and pep Family history of hypertrophic cardiomyopathy 09/22/2018 Irregular menstrual cycle 11/05/20112011 Placenta previa without hemorrhage, antepartum 1 10/16/2008 Supervision of normal first 03/11/2008 03/27/2009 documented as of this encounter (statuses as of 02/06/2022) [facility] of Past illness Narrative* Problem Noted Date Resolved Date Stress hyperglycemia 11/22/2019 11/22/2019 Overview: History/Assessment: BG controlled Plan: Start SSI coverage Obesity, Class II, BMI 35-39.9 11/22/2019 0 11/22/2019 Postoperative pain 11/21/2019 11/22/2019 Overview: History: No PMH of chronic pain. Assessment: Pain controlled Plan: Continue Fen [employer]ESSING, toradol, tylenol, and prn percolone Atelectasis 11/21/2019 11/22/2019 Overview: History: Postoperative Assessment: Grade I Airway on 1L NC Plan: OOB, wean o2, and pep Family history of hypertrophic cardiomyopathy 09/22/2018 Irregular menstrual cycle 11/05/20112011 Placenta previa without hemorrhage, antepartum 1 10/16/2008 Supervision of normal first 03/11/2008 03/27/2009 documented as of this encounter (statuses as of 02/18/2022) [facility] of Past illness Narrative* Problem Noted Date Resolved Date Stress hyperglycemia 11/22/2019 11/22/2019 Overview: History/Assessment: BG controlled Plan: Start SSI coverage Obesity, Class II, BMI 35-39.9 11/22/2019 0 11/22/2019 Postoperative pain 11/21/2019 11/22/2019 Overview: History: No PMH of chronic pain. Assessment: Pain controlled Plan: Continue Fen [employer]ESSING, toradol, tylenol, and prn percolone Atelectasis 11/21/2019 11/22/2019 Overview: History: Postoperative Assessment: Grade I Airway on 1L NC Plan: OOB, wean o2, and pep Family history of hypertrophic cardiomyopathy 09/22/2018 Irregular menstrual cycle 11/05/20112011 Placenta previa without hemorrhage, antepartum 1 10/16/2008 Supervision of normal first 03/11/2008 03/27/2009 documented as of this encounter (statuses as of 02/20/2022) [facility] of Past illness Narrative* Problem Noted Date Resolved Date Stress hyperglycemia 11/22/2019 11/22/2019 Overview: History/Assessment: BG controlled Plan: Start SSI coverage Obesity, Class II, BMI 35-39.9 11/22/2019 0 11/22/2019 Postoperative pain 11/21/2019 11/22/2019 Overview: History: No PMH of chronic pain. Assessment: Pain controlled Plan: Continue Fen [employer]ESSING, toradol, tylenol, and prn percolone Atelectasis 11/21/2019 11/22/2019 Overview: History: Postoperative Assessment: Grade I Airway on 1L NC Plan: OOB, wean o2, and pep Family history of hypertrophic cardiomyopathy 09/22/2018 Irregular menstrual cycle 11/05/20112011 Placenta previa without hemorrhage, antepartum 1 10/16/2008 Supervision of normal first 03/11/2008 03/27/2009 documented as of this encounter (statuses as of 04/22/2022) [facility] of [facility] illness Narrative* Problem Noted Date Resolved Date Stress hyperglycemia 11/22/2019 11/22/2019 Overview: History/Assessment: BG controlled Plan: Start SSI coverage Obesity, Class II, BMI 35-39.9 11/22/2019 0 11/22/2019 Postoperative pain 11/21/2019 11/22/2019 Overview: History: No PMH of chronic pain. Assessment: Pain controlled Plan: Continue [employer], toradol, tylenol, and prn percolone Atelectasis 11/21/2019 11/22/2019 Overview: History: Postoperative Assessment: Grade I Airway on 1L [place] Plan: OOB, wean o2, and pep Family history of hypertrophic cardiomyopathy 09/22/2018 Irregular menstrual cycle 11/05/20112011 Placenta previa without hemorrhage, antepartum 1 10/16/2008 Supervision of normal first 03/11/2008 03/27/2009 documented as of this encounter (statuses as of 04/22/2022) [facility]02-18-2020 History of Past illness Narrative* Problem Noted Date Resolved Date Stress hyperglycemia 11/22/2019 11/22/2019 Overview: History/Assessment: BG controlled Plan: Start SSI coverage Obesity, Class II, BMI 35-39.9 11/22/2019 0 11/22/2019 Postoperative pain 11/21/2019 11/22/2019 Overview: History: No PMH of chronic pain. Assessment: Pain controlled Plan: Continue [employer], toradol, tylenol, and prn percolone Atelectasis 11/21/2019 11/22/2019 Overview: History: Postoperative Assessment: Grade I Airway on 1L [place] Plan: OOB, wean o2, and pep Family history of hypertrophic cardiomyopathy 09/22/2018 Irregular menstrual cycle 11/05/20112011 Placenta previa without hemorrhage, antepartum 1 10/16/2008 Supervision of normal first 03/11/2008 03/27/2009 documented as of this encounter (statuses as of 04/22/2022) [facility]02-18[facility]2020 History of Past illness Narrative* Problem Noted Date Resolved Date Stress hyperglycemia 11/22/2019 11/22/2019 Overview: History/Assessment: BG controlled Plan: Start SSI coverage Obesity, Class II, BMI 35-39.9 11/22/2019 0 11/22/2019 Postoperative pain 11/21/2019 11/22/2019 Overview: History: No PMH of chronic pain. Assessment: Pain controlled Plan: Continue [employer], toradol, tylenol, and prn percolone Atelectasis 11/21/2019 11/22/2019 Overview: History: Postoperative Assessment: Grade I Airway on 1L [place] Plan: OOB, wean o2, and pep Family history of hypertrophic cardiomyopathy 09/22/2018 Irregular menstrual cycle 11/05/20112011 Placenta previa without hemorrhage, antepartum 1 10/16/2008 Supervision of normal first 03/11/2008 03/27/2009 documented as of this encounter (statuses as of 05/20/2022) [facility]02-[facility]2020 History of Past illness Narrative* Problem Noted Date Resolved Date Stress hyperglycemia 11/22/2019 11/22/2019 Overview: History/Assessment: BG controlled Plan: Start SSI coverage Obesity, Class II, BMI 35-39.9 11/22/2019 0 11/22/2019 Postoperative pain 11/21/2019 11/22/2019 Overview: History: No PMH of chronic pain. Assessment: Pain controlled Plan: Continue [employer], toradol, tylenol, and prn percolone Atelectasis 11/21/2019 11/22/2019 Overview: History: Postoperative Assessment: Grade I Airway on 1L [place] Plan: OOB, wean o2, and pep Family history of hypertrophic cardiomyopathy 09/22/2018 Irregular menstrual cycle 11/05/20112011 Placenta previa without hemorrhage, antepartum 1 10/16/2008 Supervision of normal first 03/11/2008 03/27/2009 documented as of this encounter (statuses as of 06/11/2022) [facility]2020 History of Past illness Narrative* Problem Noted Date Resolved Date Stress hyperglycemia 11/22/2019 11/22/2019 Overview: History/Assessment: BG controlled Plan: Start SSI coverage Obesity, Class II, BMI 35-39.9 11/22/2019 0 11/22/2019 Postoperative pain 11/21/2019 11/22/2019 Overview: History: No PMH of chronic pain. Assessment: Pain controlled Plan: Continue [employer], toradol, tylenol, and prn percolone Atelectasis 11/21/2019 11/22/2019 Overview: History: Postoperative Assessment: Grade I Airway on 1L [place] Plan: OOB, wean o2, and pep Family history of hypertrophic cardiomyopathy 09/22/2018 Irregular menstrual cycle 11/05/20112011 Placenta previa without hemorrhage, antepartum 1 10/16/2008 Supervision of normal first 03/11/2008 03/27/2009 documented as of this encounter (statuses as of 06/12/2022) [facility] History of Past illness Narrative* Problem Noted Date Resolved Date Stress hyperglycemia 11/22/2019 11/22/2019 Overview: History/Assessment: BG controlled Plan: Start SSI coverage Obesity, Class II, BMI 35-39.9 11/22/2019 0 11/22/2019 Postoperative pain 11/21/2019 11/22/2019 Overview: History: No PMH of chronic pain. Assessment: Pain controlled Plan: Continue [employer], toradol, tylenol, and prn percolone Atelectasis 11/21/2019 11/22/2019 Overview: History: Postoperative Assessment: Grade I Airway on 1L [place] Plan: OOB, wean o2, and pep Family history of hypertrophic cardiomyopathy 09/22/2018 Irregular menstrual cycle 11/05/20112011 Placenta previa without hemorrhage, antepartum 1 10/16/2008 Supervision of normal first 03/11/2008 03/27/2009 documented as of this encounter (statuses as of 06/12/2022) [facility] History of Past illness Narrative* Problem Noted Date Resolved Date Stress hyperglycemia 11/22/2019 11/22/2019 Overview: History/Assessment: BG controlled Plan: Start SSI coverage Obesity, Class II, BMI 35-39.9 11/22/2019 0 11/22/2019 Postoperative pain 11/21/2019 11/22/2019 Overview: History: No PMH of chronic pain. Assessment: Pain controlled Plan: Continue [employer], toradol, tylenol, and prn percolone Atelectasis 11/21/2019 11/22/2019 Overview: History: Postoperative Assessment: Grade I Airway on 1L [place] Plan: OOB, wean o2, and pep Family history of hypertrophic cardiomyopathy 09/22/2018 Irregular menstrual cycle 11/05/20112011 Placenta previa without hemorrhage, antepartum 1 10/16/2008 Supervision of normal first 03/11/2008 03/27/2009 documented as of this encounter (statuses as of 07/17/2022) [facility] History of Past illness Narrative* Problem Noted Date Resolved Date Stress hyperglycemia 11/22/2019 11/22/2019 Overview: History/Assessment: BG controlled Plan: Start SSI coverage Obesity, Class II, BMI 35-39.9 11/22/2019 0 11/22/2019 Postoperative pain 11/21/2019 11/22/2019 Overview: History: No PMH of chronic pain. Assessment: Pain controlled Plan: Continue [employer], toradol, tylenol, and prn percolone Atelectasis 11/21/2019 11/22/2019 Overview: History: Postoperative Assessment: Grade I Airway on 1L [place] Plan: OOB, wean o2, and pep Family history of hypertrophic cardiomyopathy 09/22/2018 Irregular menstrual cycle 11/05/20112011 Placenta previa without hemorrhage, antepartum 1 10/16/2008 Supervision of normal first 03/11/2008 03/27/2009 documented as of this encounter (statuses as of 07/21/2022) [facility] History of Past illness Narrative* Problem Noted Date Resolved Date Stress hyperglycemia 11/22/2019 11/22/2019 Overview: History/Assessment: BG controlled Plan: Start SSI coverage Obesity, Class II, BMI 35-39.9 11/22/2019 0 11/22/2019 Postoperative pain 11/21/2019 11/22/2019 Overview: History: No PMH of chronic pain. Assessment: Pain controlled Plan: Continue [employer], toradol, tylenol, and prn percolone Atelectasis 11/21/2019 11/22/2019 Overview: History: Postoperative Assessment: Grade I Airway on 1L [place] Plan: OOB, wean o2, and pep Family history of hypertrophic cardiomyopathy 09/22/2018 Irregular menstrual cycle 11/05/20112011 Placenta previa without hemorrhage, antepartum 1 10/16/2008 Supervision of normal first 03/11/2008 03/27/2009 documented as of this encounter (statuses as of 08/05/2022) [facility] History of Past illness Narrative* Problem Noted Date Resolved Date Stress hyperglycemia 11/22/2019 11/22/2019 Overview: History/Assessment: BG controlled Plan: Start SSI coverage Obesity, Class II, BMI 35-39.9 11/22/2019 0 11/22/2019 Postoperative pain 11/21/2019 11/22/2019 Overview: History: No PMH of chronic pain. Assessment: Pain controlled Plan: Continue [employer], toradol, tylenol, and prn percolone Atelectasis 11/21/2019 11/22/2019 Overview: History: Postoperative Assessment: Grade I Airway on 1L [place] Plan: OOB, wean o2, and pep Family history of hypertrophic cardiomyopathy 09/22/2018 Irregular menstrual cycle 11/05/20112011 Placenta previa without hemorrhage, antepartum 1 10/16/2008 Supervision of normal first 03/11/2008 03/27/2009 documented as of this encounter (statuses as of 08/07/2022) [facility] History of Past illness Narrative* Problem Noted Date Resolved Date Stress hyperglycemia 11/22/2019 11/22/2019 Overview: History/Assessment: BG controlled Plan: Start SSI coverage Obesity, Class II, BMI 35-39.9 11/22/2019 0 11/22/2019 Postoperative pain 11/21/2019 11/22/2019 Overview: History: No PMH of chronic pain. Assessment: Pain controlled Plan: Continue [employer], toradol, tylenol, and prn percolone Atelectasis 11/21/2019 11/22/2019 Overview: History: Postoperative Assessment: Grade I Airway on 1L [place] Plan: OOB, wean o2, and pep Family history of hypertrophic cardiomyopathy 09/22/2018 Irregular menstrual cycle 11/05/20112011 Placenta previa without hemorrhage, antepartum 1 10/16/2008 Supervision of normal first 03/11/2008 03/27/2009 documented as of this encounter (statuses as of 09/10/2022) [facility] History of Past illness Narrative* Problem Noted Date Resolved Date Stress hyperglycemia 11/22/2019 11/22/2019 Overview: History/Assessment: BG controlled Plan: Start SSI coverage Obesity, Class II, BMI 35-39.9 11/22/2019 0 11/22/2019 Postoperative pain 11/21/2019 11/22/2019 Overview: History: No PMH of chronic pain. Assessment: Pain controlled Plan: Continue [employer], toradol, tylenol, and prn percolone Atelectasis 11/21/2019 11/22/2019 Overview: History: Postoperative Assessment: Grade I Airway on 1L [place] Plan: OOB, wean o2, and pep Family history of hypertrophic cardiomyopathy 09/22/2018 Irregular menstrual cycle 11/05/20112011 Placenta previa without hemorrhage, antepartum 1 10/16/2008 Supervision of normal first 03/11/2008 03/27/2009 documented as of this encounter (statuses as of 09/10/2022) [facility] History of Past illness Narrative* Problem Noted Date Resolved Date Stress hyperglycemia 11/22/2019 11/22/2019 Overview: History/Assessment: BG controlled Plan: Start SSI coverage Obesity, Class II, BMI 35-39.9 11/22/2019 0 11/22/2019 Postoperative pain 11/21/2019 11/22/2019 Overview: History: No PMH of chronic pain. Assessment: Pain controlled Plan: Continue [employer], toradol, tylenol, and prn percolone Atelectasis 11/21/2019 11/22/2019 Overview: History: Postoperative Assessment: Grade I Airway on 1L [place] Plan: OOB, wean o2, and pep Family history of hypertrophic cardiomyopathy 09/22/2018 Irregular menstrual cycle 11/05/20112011 Placenta previa without hemorrhage, antepartum 1 10/16/2008 Supervision of normal first 03/11/2008 03/27/2009 documented as of this encounter (statuses as of 09/22/2022) [facility] History of Past illness Narrative* Problem Noted Date Resolved Date Stress hyperglycemia 11/22/2019 11/22/2019 Overview: History/Assessment: BG controlled Plan: Start SSI coverage Obesity, Class II, BMI 35-39.9 11/22/2019 0 11/22/2019 Postoperative pain 11/21/2019 11/22/2019 Overview: History: No PMH of chronic pain. Assessment: Pain controlled Plan: Continue [employer], toradol, tylenol, and prn percolone Atelectasis 11/21/2019 11/22/2019 Overview: History: Postoperative Assessment: Grade I Airway on 1L [place] Plan: OOB, wean o2, and pep Family history of hypertrophic cardiomyopathy 09/22/2018 Irregular menstrual cycle 11/05/20112011 Placenta previa without hemorrhage, antepartum 1 10/16/2008 Supervision of normal first 03/11/2008 03/27/2009 documented as of this encounter (statuses as of 10/04/2022) [facility] History of Past illness Narrative* Problem Noted Date Resolved Date Stress hyperglycemia 11/22/2019 11/22/2019 Overview: History/Assessment: BG controlled Plan: Start SSI coverage Obesity, Class II, BMI 35-39.9 11/22/2019 0 11/22/2019 Postoperative pain 11/21/2019 11/22/2019 Overview: History: No PMH of chronic pain. Assessment: Pain controlled Plan: Continue [employer], toradol, tylenol, and prn percolone Atelectasis 11/21/2019 11/22/2019 Overview: History: Postoperative Assessment: Grade I Airway on 1L [place] Plan: OOB, wean o2, and pep Family history of hypertrophic cardiomyopathy 09/22/2018 Irregular menstrual cycle 11/05/20112011 Placenta previa without hemorrhage, antepartum 1 10/16/2008 Supervision of normal first 03/11/2008 03/27/2009 documented as of this encounter (statuses as of 10/22/2022) [facility] History of Past illness Narrative* Problem Noted Date Resolved Date Stress hyperglycemia 11/22/2019 11/22/2019 Overview: History/Assessment: BG controlled Plan: Start SSI coverage Obesity, Class II, BMI 35-39.9 11/22/2019 0 11/22/2019 Postoperative pain 11/21/2019 11/22/2019 Overview: History: No PMH of chronic pain. Assessment: Pain controlled Plan: Continue [employer], toradol, tylenol, and prn percolone Atelectasis 11/21/2019 11/22/2019 Overview: History: Postoperative Assessment: Grade I Airway on 1L [place] Plan: OOB, wean o2, and pep Family history of hypertrophic cardiomyopathy 09/22/2018 Irregular menstrual cycle 11/05/20112011 Placenta previa without hemorrhage, antepartum 1 10/16/2008 Supervision of normal first 03/11/2008 03/27/2009 documented as of this encounter (statuses as of 10/22/2022) [facility] History of Past illness Narrative* Problem Noted Date Resolved Date Stress hyperglycemia 11/22/2019 11/22/2019 Overview: History/Assessment: BG controlled Plan: Start SSI coverage Obesity, Class II, BMI 35-39.9 11/22/2019 0 11/22/2019 Postoperative pain 11/21/2019 11/22/2019 Overview: History: No PMH of chronic pain. Assessment: Pain controlled Plan: Continue [employer], toradol, tylenol, and prn percolone Atelectasis 11/21/2019 11/22/2019 Overview: History: Postoperative Assessment: Grade I Airway on 1L [place] Plan: OOB, wean o2, and pep Family history of hypertrophic cardiomyopathy 09/22/2018 Irregular menstrual cycle 11/05/20112011 Placenta previa without hemorrhage, antepartum 1 10/16/2008 Supervision of normal first 03/11/2008 03/27/2009 documented as of this encounter (statuses as of 10/22/2022) [facility] History of Past illness Narrative* Problem Noted Date Resolved Date Stress hyperglycemia 11/22/2019 11/22/2019 Overview: History/Assessment: BG controlled Plan: Start SSI coverage Obesity, Class II, BMI 35-39.9 11/22/2019 0 11/22/2019 Postoperative pain 11/21/2019 11/22/2019 Overview: History: No PMH of chronic pain. Assessment: Pain controlled Plan: Continue [employer], toradol, tylenol, and prn percolone Atelectasis 11/21/2019 11/22/2019 Overview: History: Postoperative Assessment: Grade I Airway on 1L [place] Plan: OOB, wean o2, and pep Family history of hypertrophic cardiomyopathy 09/22/2018 Irregular menstrual cycle 11/05/20112011 Placenta previa without hemorrhage, antepartum 1 10/16/2008 Supervision of normal first 03/11/2008 03/27/2009 documented as of this encounter (statuses as of 10/22/2022) [facility] History of Past illness Narrative* Problem Noted Date Resolved Date Stress hyperglycemia 11/22/2019 11/22/2019 Overview: History/Assessment: BG controlled Plan: Start SSI coverage Obesity, Class II, BMI 35-39.9 11/22/2019 0 11/22/2019 Postoperative pain 11/21/2019 11/22/2019 Overview: History: No PMH of chronic pain. Assessment: Pain controlled Plan: Continue [employer], toradol, tylenol, and prn percolone Atelectasis 11/21/2019 11/22/2019 Overview: History: Postoperative Assessment: Grade I Airway on 1L [place] Plan: OOB, wean o2, and pep Family history of hypertrophic cardiomyopathy 09/22/2018 Irregular menstrual cycle 11/05/20112011 Placenta previa without hemorrhage, antepartum 1 10/16/2008 Supervision of normal first 03/11/2008 03/27/2009 documented as of this encounter (statuses as of 10/22/2022) [facility] History of Past illness Narrative* Problem Noted Date Resolved Date Stress hyperglycemia 11/22/2019 11/22/2019 Overview: History/Assessment: BG controlled Plan: Start SSI coverage Obesity, Class II, BMI 35-39.9 11/22/2019 0 11/22/2019 Postoperative pain 11/21/2019 11/22/2019 Overview: History: No PMH of chronic pain. Assessment: Pain controlled Plan: Continue [employer], toradol, tylenol, and prn percolone Atelectasis 11/21/2019 11/22/2019 Overview: History: Postoperative Assessment: Grade I Airway on 1L [place] Plan: OOB, wean o2, and pep Family history of hypertrophic cardiomyopathy 09/22/2018 Irregular menstrual cycle 11/05/20112011 Placenta previa without hemorrhage, antepartum 1 10/16/2008 Supervision of normal first 03/11/2008 03/27/2009 documented as of this encounter (statuses as of 10/23/2022) [facility] History of Past illness Narrative* Problem Noted Date Resolved Date Stress hyperglycemia 11/22/2019 11/22/2019 Overview: History/Assessment: BG controlled Plan: Start SSI coverage Obesity, Class II, BMI 35-39.9 11/22/2019 0 11/22/2019 Postoperative pain 11/21/2019 11/22/2019 Overview: History: No PMH of chronic pain. Assessment: Pain controlled Plan: Continue [employer], toradol, tylenol, and prn percolone Atelectasis 11/21/2019 11/22/2019 Overview: History: Postoperative Assessment: Grade I Airway on 1L [place] Plan: OOB, wean o2, and pep Family history of hypertrophic cardiomyopathy 09/22/2018 Irregular menstrual cycle 11/05/20112011 Placenta previa without hemorrhage, antepartum 1 10/16/2008 Supervision of normal first 03/11/2008 03/27/2009 documented as of this encounter (statuses as of 10/26/2022) [facility] History of Past illness Narrative* Problem Noted Date Resolved Date Stress hyperglycemia 11/22/2019 11/22/2019 Overview: History/Assessment: BG controlled Plan: Start SSI coverage Obesity, Class II, BMI 35-39.9 11/22/2019 0 11/22/2019 Postoperative pain 11/21/2019 11/22/2019 Overview: History: No PMH of chronic pain. Assessment: Pain controlled Plan: Continue [employer], toradol, tylenol, and prn percolone Atelectasis 11/21/2019 11/22/2019 Overview: History: Postoperative Assessment: Grade I Airway on 1L [place] Plan: OOB, wean o2, and pep Family history of hypertrophic cardiomyopathy 09/22/2018 Irregular menstrual cycle 11/05/20112011 Placenta previa without hemorrhage, antepartum 1 10/16/2008 Supervision of normal first 03/11/2008 03/27/2009 documented as of this encounter (statuses as of 10/28/2022) [facility] History of Past illness Narrative* Problem Noted Date Resolved Date Stress hyperglycemia 11/22/2019 11/22/2019 Overview: History/Assessment: BG controlled Plan: Start SSI coverage Obesity, Class II, BMI 35-39.9 11/22/2019 0 11/22/2019 Postoperative pain 11/21/2019 11/22/2019 Overview: History: No PMH of chronic pain. Assessment: Pain controlled Plan: Continue [employer], toradol, tylenol, and prn percolone Atelectasis 11/21/2019 11/22/2019 Overview: History: Postoperative Assessment: Grade I Airway on 1L [place] Plan: OOB, wean o2, and pep Family history of hypertrophic cardiomyopathy 09/22/2018 Irregular menstrual cycle 11/05/20112011 Placenta previa without hemorrhage, antepartum 1 10/16/2008 Supervision of normal first 03/11/2008 03/27/2009 documented as of this encounter (statuses as of 11/04/2022) [facility] History of Past illness Narrative* Problem Noted Date Resolved Date Stress hyperglycemia 11/22/2019 11/22/2019 Overview: History/Assessment: BG controlled Plan: Start SSI coverage Obesity, Class II, BMI 35-39.9 11/22/2019 0 11/22/2019 Postoperative pain 11/21/2019 11/22/2019 Overview: History: No PMH of chronic pain. Assessment: Pain controlled Plan: Continue [employer], toradol, tylenol, and prn percolone Atelectasis 11/21/2019 11/22/2019 Overview: History: Postoperative Assessment: Grade I Airway on 1L [place] Plan: OOB, wean o2, and pep Family history of hypertrophic cardiomyopathy 09/22/2018 Irregular menstrual cycle 11/05/20112011 Placenta previa without hemorrhage, antepartum 1 10/16/2008 Supervision of normal first 03/11/2008 03/27/2009 documented as of this encounter (statuses as of 11/05/2022) [facility] History of Past illness Narrative* Problem Noted Date Resolved Date Stress hyperglycemia 11/22/2019 11/22/2019 Overview: History/Assessment: BG controlled Plan: Start SSI coverage Obesity, Class II, BMI 35-39.9 11/22/2019 0 11/22/2019 Postoperative pain 11/21/2019 11/22/2019 Overview: History: No PMH of chronic pain. Assessment: Pain controlled Plan: Continue [employer], toradol, tylenol, and prn percolone Atelectasis 11/21/2019 11/22/2019 Overview: History: Postoperative Assessment: Grade I Airway on 1L [place] Plan: OOB, wean o2, and pep Family history of hypertrophic cardiomyopathy 09/22/2018 Irregular menstrual cycle 11/05/20112011 Placenta previa without hemorrhage, antepartum 1 10/16/2008 Supervision of normal first 03/11/2008 03/27/2009 documented as of this encounter (statuses as of 11/05/2022) [facility] History of Past illness Narrative* Problem Noted Date Resolved Date Stress hyperglycemia 11/22/2019 11/22/2019 Overview: History/Assessment: BG controlled Plan: Start SSI coverage Obesity, Class II, BMI 35-39.9 11/22/2019 0 11/22/2019 Postoperative pain 11/21/2019 11/22/2019 Overview: History: No PMH of chronic pain. Assessment: Pain controlled Plan: Continue [employer], toradol, tylenol, and prn percolone Atelectasis 11/21/2019 11/22/2019 Overview: History: Postoperative Assessment: Grade I Airway on 1L [place] Plan: OOB, wean o2, and pep Family history of hypertrophic cardiomyopathy 09/22/2018 Irregular menstrual cycle 11/05/20112011 Placenta previa without hemorrhage, antepartum 1 10/16/2008 Supervision of normal first 03/11/2008 03/27/2009 documented as of this encounter (statuses as of 11/14/2022) [facility] History of Past illness Narrative* Problem Noted Date Resolved Date Stress hyperglycemia 11/22/2019 11/22/2019 Overview: History/Assessment: BG controlled Plan: Start SSI coverage Obesity, Class II, BMI 35-39.9 11/22/2019 0 11/22/2019 Postoperative pain 11/21/2019 11/22/2019 Overview: History: No PMH of chronic pain. Assessment: Pain controlled Plan: Continue [employer], toradol, tylenol, and prn percolone Atelectasis 11/21/2019 11/22/2019 Overview: History: Postoperative Assessment: Grade I Airway on 1L [place] Plan: OOB, wean o2, and pep Family history of hypertrophic cardiomyopathy 09/22/2018 Irregular menstrual cycle 11/05/20112011 Placenta previa without hemorrhage, antepartum 1 10/16/2008 Supervision of normal first 03/11/2008 03/27/2009 documented as of this encounter (statuses as of 11/19/2022) [facility] History of Past illness Narrative* Problem Noted Date Resolved Date Stress hyperglycemia 11/22/2019 11/22/2019 Overview: History/Assessment: BG controlled Plan: Start SSI coverage Obesity, Class II, BMI 35-39.9 11/22/2019 0 11/22/2019 Postoperative pain 11/21/2019 11/22/2019 Overview: History: No PMH of chronic pain. Assessment: Pain controlled Plan: Continue [employer], toradol, tylenol, and prn percolone Atelectasis 11/21/2019 11/22/2019 Overview: History: Postoperative Assessment: Grade I Airway on 1L [place] Plan: OOB, wean o2, and pep Family history of hypertrophic cardiomyopathy 09/22/2018 Irregular menstrual cycle 11/05/20112011 Placenta previa without hemorrhage, antepartum 1 10/16/2008 Supervision of normal first 03/11/2008 03/27/2009 documented as of this encounter (statuses as of 11/19/2022) [facility]02-18-2020 History of Past illness Narrative* Problem Noted Date Resolved Date Stress hyperglycemia 11/22/2019 11/22/2019 Overview: History/Assessment: BG controlled Plan: Start SSI coverage Obesity, Class II, BMI 35-39.9 11/22/2019 0 11/22/2019 Postoperative pain 11/21/2019 11/22/2019 Overview: History: No PMH of chronic pain. Assessment: Pain controlled Plan: Continue [employer], toradol, tylenol, and prn percolone Atelectasis 11/21/2019 11/22/2019 Overview: History: Postoperative Assessment: Grade I Airway on 1L [place] Plan: OOB, wean o2, and pep Family history of hypertrophic cardiomyopathy 09/22/2018 Irregular menstrual cycle 11/05/20112011 Placenta previa without hemorrhage, antepartum 1 10/16/2008 Supervision of normal first 03/11/2008 03/27/2009 documented as of this encounter (statuses as of 11/26/2022) [facility]02[facility]2020 History of Past illness Narrative* Problem Noted Date Resolved Date Stress hyperglycemia 11/22/2019 11/22/2019 Overview: History/Assessment: BG controlled Plan: Start SSI coverage Obesity, Class II, BMI 35-39.9 11/22/2019 0 11/22/2019 Postoperative pain 11/21/2019 11/22/2019 Overview: History: No PMH of chronic pain. Assessment: Pain controlled Plan: Continue [employer], toradol, tylenol, and prn percolone Atelectasis 11/21/2019 11/22/2019 Overview: History: Postoperative Assessment: Grade I Airway on 1L [place] Plan: OOB, wean o2, and pep Family history of hypertrophic cardiomyopathy 09/22/2018 Irregular menstrual cycle 11/05/20112011 Placenta previa without hemorrhage, antepartum 1 10/16/2008 Supervision of normal first 03/11/2008 03/27/2009 documented as of this encounter (statuses as of 12/05/2022) [facility]2020 History of Past illness Narrative* Problem Noted Date Resolved Date Stress hyperglycemia 11/22/2019 11/22/2019 Overview: History/Assessment: BG controlled Plan: Start SSI coverage Obesity, Class II, BMI 35-39.9 11/22/2019 0 11/22/2019 Postoperative pain 11/21/2019 11/22/2019 Overview: History: No PMH of chronic pain. Assessment: Pain controlled Plan: Continue [employer], toradol, tylenol, and prn percolone Atelectasis 11/21/2019 11/22/2019 Overview: History: Postoperative Assessment: Grade I Airway on 1L [place] Plan: OOB, wean o2, and pep Family history of hypertrophic cardiomyopathy 09/22/2018 Irregular menstrual cycle 11/05/20112011 Placenta previa without hemorrhage, antepartum 1 10/16/2008 Supervision of normal first 03/11/2008 03/27/2009 documented as of this encounter (statuses as of 12/08/2022) [facility]2020 History of Past illness Narrative* Problem Noted Date Resolved Date Stress hyperglycemia 11/22/2019 11/22/2019 Overview: History/Assessment: BG controlled Plan: Start SSI coverage Obesity, Class II, BMI 35-39.9 11/22/2019 0 11/22/2019 Postoperative pain 11/21/2019 11/22/2019 Overview: History: No PMH of chronic pain. Assessment: Pain controlled Plan: Continue [employer], toradol, tylenol, and prn percolone Atelectasis 11/21/2019 11/22/2019 Overview: History: Postoperative Assessment: Grade I Airway on 1L [place] Plan: OOB, wean o2, and pep Family history of hypertrophic cardiomyopathy 09/22/2018 Irregular menstrual cycle 11/05/20112011 Placenta previa without hemorrhage, antepartum 1 10/16/2008 Supervision of normal first 03/11/2008 03/27/2009 documented as of this encounter (statuses as of 12/10/2022) [facility]2020 History of Past illness Narrative* Problem Noted Date Resolved Date Stress hyperglycemia 11/22/2019 11/22/2019 Overview: History/Assessment: BG controlled Plan: Start SSI coverage Obesity, Class II, BMI 35-39.9 11/22/2019 0 11/22/2019 Postoperative pain 11/21/2019 11/22/2019 Overview: History: No PMH of chronic pain. Assessment: Pain controlled Plan: Continue [employer], toradol, tylenol, and prn percolone Atelectasis 11/21/2019 11/22/2019 Overview: History: Postoperative Assessment: Grade I Airway on 1L [place] Plan: OOB, wean o2, and pep Family history of hypertrophic cardiomyopathy 09/22/2018 Irregular menstrual cycle 11/05/20112011 Placenta previa without hemorrhage, antepartum 1 10/16/2008 Supervision of normal first 03/11/2008 03/27/2009 documented as of this encounter (statuses as of 12/15/2022) [facility]2020 History of Past illness Narrative* Problem Noted Date Resolved Date Stress hyperglycemia 11/22/2019 11/22/2019 Overview: History/Assessment: BG controlled Plan: Start SSI coverage Obesity, Class II, BMI 35-39.9 11/22/2019 0 11/22/2019 Postoperative pain 11/21/2019 11/22/2019 Overview: History: No PMH of chronic pain. Assessment: Pain controlled Plan: Continue [employer], toradol, tylenol, and prn percolone Atelectasis 11/21/2019 11/22/2019 Overview: History: Postoperative Assessment: Grade I Airway on 1L [place] Plan: OOB, wean o2, and pep Family history of hypertrophic cardiomyopathy 09/22/2018 Irregular menstrual cycle 11/05/20112011 Placenta previa without hemorrhage, antepartum 1 10/16/2008 Supervision of normal first 03/11/2008 03/27/2009 documented as of this encounter (statuses as of 12/22/2022) [facility] History of Past illness Narrative* Problem Noted Date Resolved Date Stress hyperglycemia 11/22/2019 11/22/2019 Overview: History/Assessment: BG controlled Plan: Start SSI coverage Obesity, Class II, BMI 35-39.9 11/22/2019 0 11/22/2019 Postoperative pain 11/21/2019 11/22/2019 Overview: History: No PMH of chronic pain. Assessment: Pain controlled Plan: Continue [employer], toradol, tylenol, and prn percolone Atelectasis 11/21/2019 11/22/2019 Overview: History: Postoperative Assessment: Grade I Airway on 1L [place] Plan: OOB, wean o2, and pep Family history of hypertrophic cardiomyopathy 09/22/2018 Irregular menstrual cycle 11/05/20112011 Placenta previa without hemorrhage, antepartum 1 10/16/2008 Supervision of normal first 03/11/2008 03/27/2009 documented as of this encounter (statuses as of 01/09/2023) [facility]2020 History of Past illness Narrative* Problem Noted Date Resolved Date Stress hyperglycemia 11/22/2019 11/22/2019 Overview: History/Assessment: BG controlled Plan: Start SSI coverage Obesity, Class II, BMI 35-39.9 11/22/2019 0 11/22/2019 Postoperative pain 11/21/2019 11/22/2019 Overview: History: No PMH of chronic pain. Assessment: Pain controlled Plan: Continue [employer], toradol, tylenol, and prn percolone Atelectasis 11/21/2019 11/22/2019 Overview: History: Postoperative Assessment: Grade I Airway on 1L [place] Plan: OOB, wean o2, and pep Family history of hypertrophic cardiomyopathy 09/22/2018 Irregular menstrual cycle 11/05/20112011 Placenta previa without hemorrhage, antepartum 1 10/16/2008 Supervision of normal first 03/11/2008 03/27/2009 documented as of this encounter (statuses as of 01/15/2023) [facility]2020 History of Past illness Narrative* Problem Noted Date Resolved Date Stress hyperglycemia 11/22/2019 11/22/2019 Overview: History/Assessment: BG controlled Plan: Start SSI coverage Obesity, Class II, BMI 35-39.9 11/22/2019 0 11/22/2019 Postoperative pain 11/21/2019 11/22/2019 Overview: History: No PMH of chronic pain. Assessment: Pain controlled Plan: Continue [employer], toradol, tylenol, and prn percolone Atelectasis 11/21/2019 11/22/2019 Overview: History: Postoperative Assessment: Grade I Airway on 1L [place] Plan: OOB, wean o2, and pep Family history of hypertrophic cardiomyopathy 09/22/2018 Irregular menstrual cycle 11/05/20112011 Placenta previa without hemorrhage, antepartum 1 10/16/2008 Supervision of normal first 03/11/2008 03/27/2009 documented as of this encounter (statuses as of 01/29/2023) [facility]2020 History of Past illness Narrative* Problem Noted Date Resolved Date Stress hyperglycemia 11/22/2019 11/22/2019 Overview: History/Assessment: BG controlled Plan: Start SSI coverage Obesity, Class II, BMI 35-39.9 11/22/2019 0 11/22/2019 Postoperative pain 11/21/2019 11/22/2019 Overview: History: No PMH of chronic pain. Assessment: Pain controlled Plan: Continue [employer], toradol, tylenol, and prn percolone Atelectasis 11/21/2019 11/22/2019 Overview: History: Postoperative Assessment: Grade I Airway on 1L [place] Plan: OOB, wean o2, and pep Family history of hypertrophic cardiomyopathy 09/22/2018 Irregular menstrual cycle 11/05/20112011 Placenta previa without hemorrhage, antepartum 1 10/16/2008 Supervision of normal first 03/11/2008 03/27/2009 documented as of this encounter (statuses as of 01/29/2023) [facility] History of Past illness Narrative* Problem Noted Date Resolved Date Stress hyperglycemia 11/22/2019 11/22/2019 Overview: History/Assessment: BG controlled Plan: Start SSI coverage Obesity, Class II, BMI 35-39.9 11/22/2019 0 11/22/2019 Postoperative pain 11/21/2019 11/22/2019 Overview: History: No PMH of chronic pain. Assessment: Pain controlled Plan: Continue [employer], toradol, tylenol, and prn percolone Atelectasis 11/21/2019 11/22/2019 Overview: History: Postoperative Assessment: Grade I Airway on 1L [place] Plan: OOB, wean o2, and pep Family history of hypertrophic cardiomyopathy 09/22/2018 Irregular menstrual cycle 11/05/20112011 Placenta previa without hemorrhage, antepartum 1 10/16/2008 Supervision of normal first 03/11/2008 03/27/2009 documented as of this encounter (statuses as of 01/29/2023) [facility] History of Past illness Narrative* Problem Noted Date Resolved Date Stress hyperglycemia 11/22/2019 11/22/2019 Overview: History/Assessment: BG controlled Plan: Start SSI coverage Obesity, Class II, BMI 35-39.9 11/22/2019 0 11/22/2019 Postoperative pain 11/21/2019 11/22/2019 Overview: History: No PMH of chronic pain. Assessment: Pain controlled Plan: Continue [employer], toradol, tylenol, and prn percolone Atelectasis 11/21/2019 11/22/2019 Overview: History: Postoperative Assessment: Grade I Airway on 1L [place] Plan: OOB, wean o2, and pep Family history of hypertrophic cardiomyopathy 09/22/2018 Irregular menstrual cycle 11/05/20112011 Placenta previa without hemorrhage, antepartum 1 10/16/2008 Supervision of normal first 03/11/2008 03/27/2009 documented as of this encounter (statuses as of 02/02/2023) [facility]2020 History of Past illness Narrative* Problem Noted Date Resolved Date Stress hyperglycemia 11/22/2019 11/22/2019 Overview: History/Assessment: BG controlled Plan: Start SSI coverage Obesity, Class II, BMI 35-39.9 11/22/2019 0 11/22/2019 Postoperative pain 11/21/2019 11/22/2019 Overview: History: No PMH of chronic pain. Assessment: Pain controlled Plan: Continue [employer], toradol, tylenol, and prn percolone Atelectasis 11/21/2019 11/22/2019 Overview: History: Postoperative Assessment: Grade I Airway on 1L [place] Plan: OOB, wean o2, and pep Family history of hypertrophic cardiomyopathy 09/22/2018 Irregular menstrual cycle 11/05/20112011 Placenta previa without hemorrhage, antepartum 1 10/16/2008 Supervision of normal first 03/11/2008 03/27/2009 documented as of this encounter (statuses as of 02/04/2023) [facility] History of Past illness Narrative* Problem Noted Date Resolved Date Stress hyperglycemia 11/22/2019 11/22/2019 Overview: History/Assessment: BG controlled Plan: Start SSI coverage Obesity, Class II, BMI 35-39.9 11/22/2019 0 11/22/2019 Postoperative pain 11/21/2019 11/22/2019 Overview: History: No PMH of chronic pain. Assessment: Pain controlled Plan: Continue [employer], toradol, tylenol, and prn percolone Atelectasis 11/21/2019 11/22/2019 Overview: History: Postoperative Assessment: Grade I Airway on 1L [place] Plan: OOB, wean o2, and pep Family history of hypertrophic cardiomyopathy 09/22/2018 Irregular menstrual cycle 11/05/20112011 Placenta previa without hemorrhage, antepartum 1 10/16/2008 Supervision of normal first 03/11/2008 03/27/2009 documented as of this encounter (statuses as of 02/18/2023) [facility]2020 History of Past illness Narrative* Problem Noted Date Resolved Date Stress hyperglycemia 11/22/2019 11/22/2019 Overview: History/Assessment: BG controlled Plan: Start SSI coverage Obesity, Class II, BMI 35-39.9 11/22/2019 0 11/22/2019 Postoperative pain 11/21/2019 11/22/2019 Overview: History: No PMH of chronic pain. Assessment: Pain controlled Plan: Continue [employer], toradol, tylenol, and prn percolone Atelectasis 11/21/2019 11/22/2019 Overview: History: Postoperative Assessment: Grade I Airway on 1L [place] Plan: OOB, wean o2, and pep Family history of hypertrophic cardiomyopathy 09/22/2018 Irregular menstrual cycle 11/05/20112011 Placenta previa without hemorrhage, antepartum 1 10/16/2008 Supervision of normal first 03/11/2008 03/27/2009 documented as of this encounter (statuses as of 03/04/2023) [facility]2020 History of Past illness Narrative* Problem Noted Date Resolved Date Stress hyperglycemia 11/22/2019 11/22/2019 Overview: History/Assessment: BG controlled Plan: Start SSI coverage Obesity, Class II, BMI 35-39.9 11/22/2019 0 11/22/2019 Postoperative pain 11/21/2019 11/22/2019 Overview: History: No PMH of chronic pain. Assessment: Pain controlled Plan: Continue [employer], toradol, tylenol, and prn percolone Atelectasis 11/21/2019 11/22/2019 Overview: History: Postoperative Assessment: Grade I Airway on 1L [place] Plan: OOB, wean o2, and pep Family history of hypertrophic cardiomyopathy 09/22/2018 Irregular menstrual cycle 11/05/20112011 Placenta previa without hemorrhage, antepartum 1 10/16/2008 Supervision of normal first 03/11/2008 03/27/2009 documented as of this encounter (statuses as of 03/06/2023) [facility]2020 History of Past illness Narrative* Problem Noted Date Resolved Date Stress hyperglycemia 11/22/2019 11/22/2019 Overview: History/Assessment: BG controlled Plan: Start SSI coverage Obesity, Class II, BMI 35-39.9 11/22/2019 0 11/22/2019 Postoperative pain 11/21/2019 11/22/2019 Overview: History: No PMH of chronic pain. Assessment: Pain controlled Plan: Continue [employer], toradol, tylenol, and prn percolone Atelectasis 11/21/2019 11/22/2019 Overview: History: Postoperative Assessment: Grade I Airway on 1L [place] Plan: OOB, wean o2, and pep Family history of hypertrophic cardiomyopathy 09/22/2018 Irregular menstrual cycle 11/05/20112011 Placenta previa without hemorrhage, antepartum 1 10/16/2008 Supervision of normal first 03/11/2008 03/27/2009 documented as of this encounter (statuses as of 03/10/2023) [facility]2020 History of Past illness Narrative* Problem Noted Date Resolved Date Stress hyperglycemia 11/22/2019 11/22/2019 Overview: History/Assessment: BG controlled Plan: Start SSI coverage Obesity, Class II, BMI 35-39.9 11/22/2019 0 11/22/2019 Postoperative pain 11/21/2019 11/22/2019 Overview: History: No PMH of chronic pain. Assessment: Pain controlled Plan: Continue [employer], toradol, tylenol, and prn percolone Atelectasis 11/21/2019 11/22/2019 Overview: History: Postoperative Assessment: Grade I Airway on 1L [place] Plan: OOB, wean o2, and pep Family history of hypertrophic cardiomyopathy 09/22/2018 Irregular menstrual cycle 11/05/20112011 Placenta previa without hemorrhage, antepartum 1 10/16/2008 Supervision of normal first 03/11/2008 03/27/2009 documented as of this encounter (statuses as of 03/10/2023) [facility] History of Past illness Narrative* Problem Noted Date Resolved Date Stress hyperglycemia 11/22/2019 11/22/2019 Overview: History/Assessment: BG controlled Plan: Start SSI coverage Obesity, Class II, BMI 35-39.9 11/22/2019 0 11/22/2019 Postoperative pain 11/21/2019 11/22/2019 Overview: History: No PMH of chronic pain. Assessment: Pain controlled Plan: Continue [employer], toradol, tylenol, and prn percolone Atelectasis 11/21/2019 11/22/2019 Overview: History: Postoperative Assessment: Grade I Airway on 1L [place] Plan: OOB, wean o2, and pep Family history of hypertrophic cardiomyopathy 09/22/2018 Irregular menstrual cycle 11/05/20112011 Placenta previa without hemorrhage, antepartum 1 10/16/2008 Supervision of normal first 03/11/2008 03/27/2009 documented as of this encounter (statuses as of 03/10/2023) [facility] History of Past illness Narrative* Problem Noted Date Resolved Date Stress hyperglycemia 11/22/2019 11/22/2019 Overview: History/Assessment: BG controlled Plan: Start SSI coverage Obesity, Class II, BMI 35-39.9 11/22/2019 0 11/22/2019 Postoperative pain 11/21/2019 11/22/2019 Overview: History: No PMH of chronic pain. Assessment: Pain controlled Plan: Continue [employer], toradol, tylenol, and prn percolone Atelectasis 11/21/2019 11/22/2019 Overview: History: Postoperative Assessment: Grade I Airway on 1L [place] Plan: OOB, wean o2, and pep Family history of hypertrophic cardiomyopathy 09/22/2018 Irregular menstrual cycle 11/05/20112011 Placenta previa without hemorrhage, antepartum 1 10/16/2008 Supervision of normal first 03/11/2008 03/27/2009 documented as of this encounter (statuses as of 03/10/2023) [facility] History of Past illness Narrative* Problem Noted Date Resolved Date Stress hyperglycemia 11/22/2019 11/22/2019 Overview: History/Assessment: BG controlled Plan: Start SSI coverage Obesity, Class II, BMI 35-39.9 11/22/2019 0 11/22/2019 Postoperative pain 11/21/2019 11/22/2019 Overview: History: No PMH of chronic pain. Assessment: Pain controlled Plan: Continue [employer], toradol, tylenol, and prn percolone Atelectasis 11/21/2019 11/22/2019 Overview: History: Postoperative Assessment: Grade I Airway on 1L [place] Plan: OOB, wean o2, and pep Family history of hypertrophic cardiomyopathy 09/22/2018 Irregular menstrual cycle 11/05/20112011 Placenta previa without hemorrhage, antepartum 1 10/16/2008 Supervision of normal first 03/11/2008 03/27/2009 documented as of this encounter (statuses as of 03/12/2023) [facility] History of Past illness Narrative* Problem Noted Date Resolved Date Stress hyperglycemia 11/22/2019 11/22/2019 Overview: History/Assessment: BG controlled Plan: Start SSI coverage Obesity, Class II, BMI 35-39.9 11/22/2019 0 11/22/2019 Postoperative pain 11/21/2019 11/22/2019 Overview: History: No PMH of chronic pain. Assessment: Pain controlled Plan: Continue [employer], toradol, tylenol, and prn percolone Atelectasis 11/21/2019 11/22/2019 Overview: History: Postoperative Assessment: Grade I Airway on 1L [place] Plan: OOB, wean o2, and pep Family history of hypertrophic cardiomyopathy 09/22/2018 Irregular menstrual cycle 11/05/20112011 Placenta previa without hemorrhage, antepartum 1 10/16/2008 Supervision of normal first 03/11/2008 03/27/2009 documented as of this encounter (statuses as of 03/12/2023) [facility] History of Past illness Narrative* Problem Noted Date Resolved Date Stress hyperglycemia 11/22/2019 11/22/2019 Overview: History/Assessment: BG controlled Plan: Start SSI coverage Obesity, Class II, BMI 35-39.9 11/22/2019 0 11/22/2019 Postoperative pain 11/21/2019 11/22/2019 Overview: History: No PMH of chronic pain. Assessment: Pain controlled Plan: Continue [employer], toradol, tylenol, and prn percolone Atelectasis 11/21/2019 11/22/2019 Overview: History: Postoperative Assessment: Grade I Airway on 1L [place] Plan: OOB, wean o2, and pep Family history of hypertrophic cardiomyopathy 09/22/2018 Irregular menstrual cycle 11/05/20112011 Placenta previa without hemorrhage, antepartum 1 10/16/2008 Supervision of normal first 03/11/2008 03/27/2009 documented as of this encounter (statuses as of 03/16/2023) [facility] History of Past illness Narrative* Problem Noted Date Resolved Date Stress hyperglycemia 11/22/2019 11/22/2019 Overview: History/Assessment: BG controlled Plan: Start SSI coverage Obesity, Class II, BMI 35-39.9 11/22/2019 0 11/22/2019 Postoperative pain 11/21/2019 11/22/2019 Overview: History: No PMH of chronic pain. Assessment: Pain controlled Plan: Continue [employer], toradol, tylenol, and prn percolone Atelectasis 11/21/2019 11/22/2019 Overview: History: Postoperative Assessment: Grade I Airway on 1L [place] Plan: OOB, wean o2, and pep Family history of hypertrophic cardiomyopathy 09/22/2018 Irregular menstrual cycle 11/05/20112011 Placenta previa without hemorrhage, antepartum 1 10/16/2008 Supervision of normal first 03/11/2008 03/27/2009 documented as of this encounter (statuses as of 03/17/2023) [facility] History of Past illness Narrative* Problem Noted Date Resolved Date Stress hyperglycemia 11/22/2019 11/22/2019 Overview: History/Assessment: BG controlled Plan: Start SSI coverage Obesity, Class II, BMI 35-39.9 11/22/2019 0 11/22/2019 Postoperative pain 11/21/2019 11/22/2019 Overview: History: No PMH of chronic pain. Assessment: Pain controlled Plan: Continue [employer], toradol, tylenol, and prn percolone Atelectasis 11/21/2019 11/22/2019 Overview: History: Postoperative Assessment: Grade I Airway on 1L [place] Plan: OOB, wean o2, and pep Family history of hypertrophic cardiomyopathy 09/22/2018 Irregular menstrual cycle 11/05/20112011 Placenta previa without hemorrhage, antepartum 1 10/16/2008 Supervision of normal first 03/11/2008 03/27/2009 documented as of this encounter (statuses as of 03/20/2023) [facility] History of Past illness Narrative* Problem Noted Date Resolved Date Stress hyperglycemia 11/22/2019 11/22/2019 Overview: History/Assessment: BG controlled Plan: Start SSI coverage Obesity, Class II, BMI 35-39.9 11/22/2019 0 11/22/2019 Postoperative pain 11/21/2019 11/22/2019 Overview: History: No PMH of chronic pain. Assessment: Pain controlled Plan: Continue [employer], toradol, tylenol, and prn percolone Atelectasis 11/21/2019 11/22/2019 Overview: History: Postoperative Assessment: Grade I Airway on 1L [place] Plan: OOB, wean o2, and pep Family history of hypertrophic cardiomyopathy 09/22/2018 Irregular menstrual cycle 11/05/20112011 Placenta previa without hemorrhage, antepartum 1 10/16/2008 Supervision of normal first 03/11/2008 03/27/2009 documented as of this encounter (statuses as of 03/20/2023) [facility] History of Past illness Narrative* Problem Noted Date Resolved Date Stress hyperglycemia 11/22/2019 11/22/2019 Overview: History/Assessment: BG controlled Plan: Start SSI coverage Obesity, Class II, BMI 35-39.9 11/22/2019 0 11/22/2019 Postoperative pain 11/21/2019 11/22/2019 Overview: History: No PMH of chronic pain. Assessment: Pain controlled Plan: Continue [employer], toradol, tylenol, and prn percolone Atelectasis 11/21/2019 11/22/2019 Overview: History: Postoperative Assessment: Grade I Airway on 1L [place] Plan: OOB, wean o2, and pep Family history of hypertrophic cardiomyopathy 09/22/2018 Irregular menstrual cycle 11/05/20112011 Placenta previa without hemorrhage, antepartum 1 10/16/2008 Supervision of normal first 03/11/2008 03/27/2009 documented as of this encounter (statuses as of 03/21/2023) [facility] History of Past illness Narrative* Problem Noted Date Resolved Date Stress hyperglycemia 11/22/2019 11/22/2019 Overview: History/Assessment: BG controlled Plan: Start SSI coverage Obesity, Class II, BMI 35-39.9 11/22/2019 0 11/22/2019 Postoperative pain 11/21/2019 11/22/2019 Overview: History: No PMH of chronic pain. Assessment: Pain controlled Plan: Continue [employer], toradol, tylenol, and prn percolone Atelectasis 11/21/2019 11/22/2019 Overview: History: Postoperative Assessment: Grade I Airway on 1L [place] Plan: OOB, wean o2, and pep Family history of hypertrophic cardiomyopathy 09/22/2018 Irregular menstrual cycle 11/05/20112011 Placenta previa without hemorrhage, antepartum 1 10/16/2008 Supervision of normal first 03/11/2008 03/27/2009 documented as of this encounter (statuses as of 03/24/2023) [facility] History of Past illness Narrative* Problem Noted Date Resolved Date Stress hyperglycemia 11/22/2019 11/22/2019 Overview: History/Assessment: BG controlled Plan: Start SSI coverage Obesity, Class II, BMI 35-39.9 11/22/2019 0 11/22/2019 Postoperative pain 11/21/2019 11/22/2019 Overview: History: No PMH of chronic pain. Assessment: Pain controlled Plan: Continue Fen [employer], toradol, tylenol, and prn percolone Atelectasis 11/21/2019 11/22/2019 Overview: History: Postoperative Assessment: Grade I Airway on 1L NC Plan: OOB, wean o2, and pep Family history of hypertrophic cardiomyopathy 09/22/2018 Irregular menstrual cycle 11/05/20112011 Placenta previa without hemorrhage, antepartum 1 10/16/2008 Supervision of normal first 03/11/2008 03/27/2009 documented as of this encounter (statuses as of 03/26/2023) [facility] History of Past illness Narrative* Problem Noted Date Resolved Date Stress hyperglycemia 11/22/2019 11/22/2019 Overview: History/Assessment: BG controlled Plan: Start SSI coverage Obesity, Class II, BMI 35-39.9 11/22/2019 0 11/22/2019 Postoperative pain 11/21/2019 11/22/2019 Overview: History: No PMH of chronic pain. Assessment: Pain controlled Plan: Continue Fen [employer], toradol, tylenol, and prn percolone Atelectasis 11/21/2019 11/22/2019 Overview: History: Postoperative Assessment: Grade I Airway on 1L NC Plan: OOB, wean o2, and pep Family history of hypertrophic cardiomyopathy 09/22/2018 Irregular menstrual cycle 11/05/20112011 Placenta previa without hemorrhage, antepartum 1 10/16/2008 Supervision of normal first 03/11/2008 03/27/2009 documented as of this encounter (statuses as of 03/28/2023) [facility] History of Past illness Narrative* Problem Noted Date Resolved Date Stress hyperglycemia 11/22/2019 11/22/2019 Overview: History/Assessment: BG controlled Plan: Start SSI coverage Obesity, Class II, BMI 35-39.9 11/22/2019 0 11/22/2019 Postoperative pain 11/21/2019 11/22/2019 Overview: History: No PMH of chronic pain. Assessment: Pain controlled Plan: Continue Fen [employer], toradol, tylenol, and prn percolone Atelectasis 11/21/2019 11/22/2019 Overview: History: Postoperative Assessment: Grade I Airway on 1L NC Plan: OOB, wean o2, and pep Family history of hypertrophic cardiomyopathy 09/22/2018 Irregular menstrual cycle 11/05/20112011 Placenta previa without hemorrhage, antepartum 1 10/16/2008 Supervision of normal first 03/11/2008 03/27/2009 documented as of this encounter (statuses as of 04/01/2023) [facility] History of Past illness Narrative* Problem Noted Date Resolved Date Stress hyperglycemia 11/22/2019 11/22/2019 Overview: History/Assessment: BG controlled Plan: Start SSI coverage Obesity, Class II, BMI 35-39.9 11/22/2019 0 11/22/2019 Postoperative pain 11/21/2019 11/22/2019 Overview: History: No PMH of chronic pain. Assessment: Pain controlled Plan: Continue Fen [employer], toradol, tylenol, and prn percolone Atelectasis 11/21/2019 11/22/2019 Overview: History: Postoperative Assessment: Grade I Airway on 1L NC Plan: OOB, wean o2, and pep Family history of hypertrophic cardiomyopathy 09/22/2018 Irregular menstrual cycle 11/05/20112011 Placenta previa without hemorrhage, antepartum 1 10/16/2008 Supervision of normal first 03/11/2008 03/27/2009 documented as of this encounter (statuses as of 04/03/2023) [facility] History of Past illness Narrative* Problem Noted Date Resolved Date Stress hyperglycemia 11/22/2019 11/22/2019 Overview: History/Assessment: BG controlled Plan: Start SSI coverage Obesity, Class II, BMI 35-39.9 11/22/2019 0 11/22/2019 Postoperative pain 11/21/2019 11/22/2019 Overview: History: No PMH of chronic pain. Assessment: Pain controlled Plan: Continue [employer], toradol, tylenol, and prn percolone Atelectasis 11/21/2019 11/22/2019 Overview: History: Postoperative Assessment: Grade I Airway on 1L NC Plan: OOB, wean o2, and pep Family history of hypertrophic cardiomyopathy 09/22/2018 Irregular menstrual cycle 11/05/20112011 Placenta previa without hemorrhage, antepartum 1 10/16/2008 Supervision of normal first 03/11/2008 03/27/2009 documented as of this encounter (statuses as of 04/10/2023) [facility] History of Past illness Narrative* Problem Noted Date Diagnosed Date Resolved Date Stress hyperglycemia 11/22/2019 020 Overview: History/Assessment: BG controlled Plan: Start SSI coverage Obesity, Class II, BMI 35-39.9 11/22/2019 11/22/2019 Postoperative pain 11/21/2019 0 Overview: History: No PMH of chronic pain. Assessment: Pain controlled Plan: Continue [employer], toradol, tylenol, and prn percolone Atelectasis 11/21/2019 11/22/2019 Overview: History: Postoperative Assessment: Grade I Airway on 1L NC Plan: OOB, wean o2, and pep Family history of hypertrophic cardiomyopathy 01/19/20 14 09/22/2018 Irregular menstrual cycle 11/05/2011 Placenta previa without hemo rrhage, antepartum 07/21/2008 10/16/2008 Supervision of normal first 03/11/2008 03/27/2009 documented as of this encounter (statuses as of 04/11/2023) [facility] History of Past illness Narrative* Problem Noted Date Diagnosed Date Resolved Date Stress hyperglycemia 11/22/2019 020 Overview: History/Assessment: BG controlled Plan: Start SSI coverage Obesity, Class II, BMI 35-39.9 11/22/2019 11/22/2019 Postoperative pain 11/21/2019 0 Overview: History: No PMH of chronic pain. Assessment: Pain controlled Plan: Continue [employer], toradol, tylenol, and prn percolone Atelectasis 11/21/2019 11/22/2019 Overview: History: Postoperative Assessment: Grade I Airway on 1L NC Plan: OOB, wean o2, and pep Family history of hypertrophic cardiomyopathy 01/19/20 14 09/22/2018 Irregular menstrual cycle 11/05/2011 Placenta previa without hemo rrhage, antepartum 07/21/2008 10/16/2008 Supervision of normal first 03/11/2008 03/27/2009 documented as of this encounter (statuses as of 04/16/2023) [facility] History of Past illness Narrative* Problem Noted Date Diagnosed Date Resolved Date Stress hyperglycemia 11/22/2019 020 Overview: History/Assessment: BG controlled Plan: Start SSI coverage Obesity, Class II, BMI 35-39.9 11/22/2019 11/22/2019 Postoperative pain 11/21/2019 0 Overview: History: No PMH of chronic pain. Assessment: Pain controlled Plan: Continue [employer], toradol, tylenol, and prn percolone Atelectasis 11/21/2019 11/22/2019 Overview: History: Postoperative Assessment: Grade I Airway on 1L NC Plan: OOB, wean o2, and pep Family history of hypertrophic cardiomyopathy 01/19/20 14 09/22/2018 Irregular menstrual cycle 11/05/2011 Placenta previa without hemo rrhage, antepartum 07/21/2008 10/16/2008 Supervision of normal first 03/11/2008 03/27/2009 documented as of this encounter (statuses as of 04/20/2023) [facility] History of Past illness Narrative* Problem Noted Date Diagnosed Date Resolved Date Stress hyperglycemia 11/22/2019 020 Overview: History/Assessment: BG controlled Plan: Start SSI coverage Obesity, Class II, BMI 35-39.9 11/22/2019 11/22/2019 Postoperative pain 11/21/2019 0 Overview: History: No PMH of chronic pain. Assessment: Pain controlled Plan: Continue [employer], toradol, tylenol, and prn percolone Atelectasis 11/21/2019 11/22/2019 Overview: History: Postoperative Assessment: Grade I Airway on 1L NC Plan: OOB, wean o2, and pep Family history of hypertrophic cardiomyopathy 01/19/20 14 09/22/2018 Irregular menstrual cycle 11/05/2011 Placenta previa without hemo rrhage, antepartum 07/21/2008 10/16/2008 Supervision of normal first 03/11/2008 03/27/2009 documented as of this encounter (statuses as of 05/04/2023) [facility] History of Past illness Narrative* Problem Noted Date Diagnosed Date Resolved Date Stress hyperglycemia 11/22/2019 020 Overview: History/Assessment: BG controlled Plan: Start SSI coverage Obesity, Class II, BMI 35-39.9 11/22/2019 11/22/2019 Postoperative pain 11/21/2019 0 Overview: History: No PMH of chronic pain. Assessment: Pain controlled Plan: Continue [employer], toradol, tylenol, and prn percolone Atelectasis 11/21/2019 11/22/2019 Overview: History: Postoperative Assessment: Grade I Airway on 1L NC Plan: OOB, wean o2, and pep Family history of hypertrophic cardiomyopathy 01/19/20 14 09/22/2018 Irregular menstrual cycle 11/05/2011 Placenta previa without hemo rrhage, antepartum 07/21/2008 10/16/2008 Supervision of normal first 03/11/2008 03/27/2009 documented as of this encounter (statuses as of 05/06/2023) [facility] History of Past illness Narrative* Problem Noted Date Diagnosed Date Resolved Date Stress hyperglycemia 11/22/2019 020 Overview: History/Assessment: BG controlled Plan: Start SSI coverage Obesity, Class II, BMI 35-39.9 11/22/2019 11/22/2019 Postoperative pain 11/21/2019 0 Overview: History: No PMH of chronic pain. Assessment: Pain controlled Plan: Continue Fen [employer], toradol, tylenol, and prn percolone Atelectasis 11/21/2019 11/22/2019 Overview: History: Postoperative Assessment: Grade I Airway on 1L NC Plan: OOB, wean o2, and pep Family history of hypertrophic cardiomyopathy 01/19/20 14 09/22/2018 Irregular menstrual cycle 11/05/2011 Placenta previa without hemo rrhage, antepartum 07/21/2008 10/16/2008 Supervision of normal first 03/11/2008 03/27/2009 documented as of this encounter (statuses as of 05/08/2023) [facility] History of Past illness Narrative* Problem Noted Date Diagnosed Date Resolved Date Stress hyperglycemia 11/22/2019 020 Overview: History/Assessment: BG controlled Plan: Start SSI coverage Obesity, Class II, BMI 35-39.9 11/22/2019 11/22/2019 Postoperative pain 11/21/2019 0 Overview: History: No PMH of chronic pain. Assessment: Pain controlled Plan: Continue Fen [employer], toradol, tylenol, and prn percolone Atelectasis 11/21/2019 11/22/2019 Overview: History: Postoperative Assessment: Grade I Airway on 1L NC Plan: OOB, wean o2, and pep Family history of hypertrophic cardiomyopathy 01/19/20 14 09/22/2018 Irregular menstrual cycle 11/05/2011 Placenta previa without hemo rrhage, antepartum 07/21/2008 10/16/2008 Supervision of normal first 03/11/2008 03/27/2009 documented as of this encounter (statuses as of 05/08/2023) [facility] History of Past illness Narrative* Problem Noted Date Diagnosed Date Resolved Date Stress hyperglycemia 11/22/2019 020 Overview: History/Assessment: BG controlled Plan: Start SSI coverage Obesity, Class II, BMI 35-39.9 11/22/2019 11/22/2019 Postoperative pain 11/21/2019 0 Overview: History: No PMH of chronic pain. Assessment: Pain controlled Plan: Continue [employer], toradol, tylenol, and prn percolone Atelectasis 11/21/2019 11/22/2019 Overview: History: Postoperative Assessment: Grade I Airway on 1L NC Plan: OOB, wean o2, and pep Family history of hypertrophic cardiomyopathy 01/19/20 14 09/22/2018 Irregular menstrual cycle 11/05/2011 Placenta previa without hemo rrhage, antepartum 07/21/2008 10/16/2008 Supervision of normal first 03/11/2008 03/27/2009 documented as of this encounter (statuses as of 05/08/2023) [facility] History of Past illness Narrative* Problem Noted Date Diagnosed Date Resolved Date Stress hyperglycemia 11/22/2019 020 Overview: History/Assessment: BG controlled Plan: Start SSI coverage Obesity, Class II, BMI 35-39.9 11/22/2019 11/22/2019 Postoperative pain 11/21/2019 0 Overview: History: No PMH of chronic pain. Assessment: Pain controlled Plan: Continue [employer], toradol, tylenol, and prn percolone Atelectasis 11/21/2019 11/22/2019 Overview: History: Postoperative Assessment: Grade I Airway on 1L NC Plan: OOB, wean o2, and pep Family history of hypertrophic cardiomyopathy 01/19/20 14 09/22/2018 Irregular menstrual cycle 11/05/2011 Placenta previa without hemo rrhage, antepartum 07/21/2008 10/16/2008 Supervision of normal first 03/11/2008 03/27/2009 documented as of this encounter (statuses as of 05/09/2023) [facility] History of Past illness Narrative* Problem Noted Date Diagnosed Date Resolved Date Stress hyperglycemia 11/22/2019 020 Overview: History/Assessment: BG controlled Plan: Start SSI coverage Obesity, Class II, BMI 35-39.9 11/22/2019 11/22/2019 Postoperative pain 11/21/2019 0 Overview: History: No PMH of chronic pain. Assessment: Pain controlled Plan: Continue [employer], toradol, tylenol, and prn percolone Atelectasis 11/21/2019 11/22/2019 Overview: History: Postoperative Assessment: Grade I Airway on 1L NC Plan: OOB, wean o2, and pep Family history of hypertrophic cardiomyopathy 01/19/20 14 09/22/2018 Irregular menstrual cycle 11/05/2011 Placenta previa without hemo rrhage, antepartum 07/21/2008 10/16/2008 Supervision of normal first 03/11/2008 03/27/2009 documented as of this encounter (statuses as of 05/11/2023) [facility] History of Past illness Narrative* Problem Noted Date Diagnosed Date Resolved Date Stress hyperglycemia 11/22/2019 020 Overview: History/Assessment: BG controlled Plan: Start SSI coverage Obesity, Class II, BMI 35-39.9 11/22/2019 11/22/2019 Postoperative pain 11/21/2019 0 Overview: History: No PMH of chronic pain. Assessment: Pain controlled Plan: Continue [employer], toradol, tylenol, and prn percolone Atelectasis 11/21/2019 11/22/2019 Overview: History: Postoperative Assessment: Grade I Airway on 1L NC Plan: OOB, wean o2, and pep Family history of hypertrophic cardiomyopathy 01/19/20 14 09/22/2018 Irregular menstrual cycle 11/05/2011 Placenta previa without hemo rrhage, antepartum 07/21/2008 10/16/2008 Supervision of normal first 03/11/2008 03/27/2009 documented as of this encounter (statuses as of 05/13/2023) [facility] History of Past illness Narrative* Problem Noted Date Diagnosed Date Resolved Date Stress hyperglycemia 11/22/2019 020 Overview: History/Assessment: BG controlled Plan: Start SSI coverage Obesity, Class II, BMI 35-39.9 11/22/2019 11/22/2019 Postoperative pain 11/21/2019 0 Overview: History: No PMH of chronic pain. Assessment: Pain controlled Plan: Continue [employer], toradol, tylenol, and prn percolone Atelectasis 11/21/2019 11/22/2019 Overview: History: Postoperative Assessment: Grade I Airway on 1L NC Plan: OOB, wean o2, and pep Family history of hypertrophic cardiomyopathy 01/19/20 14 09/22/2018 Irregular menstrual cycle 11/05/2011 Placenta previa without hemo rrhage, antepartum 07/21/2008 10/16/2008 Supervision of normal first 03/11/2008 03/27/2009 documented as of this encounter (statuses as of 05/15/2023) [facility] History of Past illness Narrative* Problem Noted Date Diagnosed Date Resolved Date Stress hyperglycemia 11/22/2019 020 Overview: History/Assessment: BG controlled Plan: Start SSI coverage Obesity, Class II, BMI 35-39.9 11/22/2019 11/22/2019 Postoperative pain 11/21/2019 0 Overview: History: No PMH of chronic pain. Assessment: Pain controlled Plan: Continue [employer], toradol, tylenol, and prn percolone Atelectasis 11/21/2019 11/22/2019 Overview: History: Postoperative Assessment: Grade I Airway on 1L NC Plan: OOB, wean o2, and pep Family history of hypertrophic cardiomyopathy 01/19/20 14 09/22/2018 Irregular menstrual cycle 11/05/2011 Placenta previa without hemo rrhage, antepartum 07/21/2008 10/16/2008 Supervision of normal first 03/11/2008 03/27/2009 documented as of this encounter (statuses as of 06/01/2023) [facility] History of Past illness Narrative* Problem Noted Date Diagnosed Date Resolved Date Stress hyperglycemia 11/22/2019 020 Overview: History/Assessment: BG controlled Plan: Start SSI coverage Obesity, Class II, BMI 35-39.9 11/22/2019 11/22/2019 Postoperative pain 11/21/2019 0 Overview: History: No PMH of chronic pain. Assessment: Pain controlled Plan: Continue [employer], toradol, tylenol, and prn percolone Atelectasis 11/21/2019 11/22/2019 Overview: History: Postoperative Assessment: Grade I Airway on 1L NC Plan: OOB, wean o2, and pep Family history of hypertrophic cardiomyopathy 01/19/20 14 09/22/2018 Irregular menstrual cycle 11/05/2011 Placenta previa without hemo rrhage, antepartum 07/21/2008 10/16/2008 Supervision of normal first 03/11/2008 03/27/2009 documented as of this encounter (statuses as of 06/02/2023) [facility] History of Past illness Narrative* Problem Noted Date Diagnosed Date Resolved Date Stress hyperglycemia 11/22/2019 020 Overview: History/Assessment: BG controlled Plan: Start SSI coverage Obesity, Class II, BMI 35-39.9 11/22/2019 11/22/2019 Postoperative pain 11/21/2019 0 Overview: History: No PMH of chronic pain. Assessment: Pain controlled Plan: Continue [employer], toradol, tylenol, and prn percolone Atelectasis 11/21/2019 11/22/2019 Overview: History: Postoperative Assessment: Grade I Airway on 1L NC Plan: OOB, wean o2, and pep Family history of hypertrophic cardiomyopathy 01/19/20 14 09/22/2018 Irregular menstrual cycle 11/05/2011 Placenta previa without hemo rrhage, antepartum 07/21/2008 10/16/2008 Supervision of normal first 03/11/2008 03/27/2009 documented as of this encounter (statuses as of 08/09/2023) [facility] History of Past illness Narrative* Problem Noted Date Diagnosed Date Resolved Date Stress hyperglycemia 11/22/2019 020 Overview: History/Assessment: BG controlled Plan: Start SSI coverage Obesity, Class II, BMI 35-39.9 11/22/2019 11/22/2019 Postoperative pain 11/21/2019 0 Overview: History: No PMH of chronic pain. Assessment: Pain controlled Plan: Continue [employer], toradol, tylenol, and prn percolone Atelectasis 11/21/2019 11/22/2019 Overview: History: Postoperative Assessment: Grade I Airway on 1L NC Plan: OOB, wean o2, and pep Family history of hypertrophic cardiomyopathy 01/19/20 14 09/22/2018 Irregular menstrual cycle 11/05/2011 Placenta previa without hemo rrhage, antepartum 07/21/2008 10/16/2008 Supervision of normal first 03/11/2008 03/27/2009 documented as of this encounter (statuses as of 08/09/2023) [facility] History of Past illness Narrative* Problem Noted Date Diagnosed Date Resolved Date Stress hyperglycemia 11/22/2019 020 Overview: History/Assessment: BG controlled Plan: Start SSI coverage Obesity, Class II, BMI 35-39.9 11/22/2019 11/22/2019 Postoperative pain 11/21/2019 0 Overview: History: No PMH of chronic pain. Assessment: Pain controlled Plan: Continue [employer], toradol, tylenol, and prn percolone Atelectasis 11/21/2019 11/22/2019 Overview: History: Postoperative Assessment: Grade I Airway on 1L NC Plan: OOB, wean o2, and pep Family history of hypertrophic cardiomyopathy 01/19/20 14 09/22/2018 Irregular menstrual cycle 11/05/2011 Placenta previa without hemo rrhage, antepartum 07/21/2008 10/16/2008 Supervision of normal first 03/11/2008 03/27/2009 documented as of this encounter (statuses as of 08/09/2023) [facility] Brow[facility] October 26, 2022 4:49am Note Date/Time October 26, 2022 4 :17am [facility] Medical Records Department [address] [place] [address] Emergency Department Summary 10/26/22 MR#: [id number] Acct: [id number] Name: CHAVO CAVANAUGH Rep #:[id number] [birth year] : 1980 42 From: Jerome Fofana PCP: HALEY Rios Status:REG E R Location: ED HPI History of Present Illness Chief Complaint: Palpitations Informant: patient Narrative Narrative: Sudden palpitations 12:30 AM less than 4 hours prior to arrival. Lightheaded with standing or exertion. No chest pains. History of atrial fibrillation. History of WPW and HOCM. She had cardiac surgery at [facility] 2 years ago. Reports also had valve repair. She has a implantable AICD. She is on Eliquis twice a day. She is on metoprolol 37.5 mg twice a day. She is on sotalol 120 twice daily. She is taking her medications. Her last dose 7:30 PM. Denies cough. Denies recent vomiting or diarrhea. She is followed by [facility] tele rn. Reports last recurrent symptoms 2 months ago [...] % (Auto) 68.3 Lymph % (Auto) 21.7 [place] % (Auto) 6.7 Eos % (Auto) 2.5 [...] Clinical Impression: HOCM (hypertrophic obstructive cardiomyopathy), WPW (Sqgek-Fzfeeiyoi-Joztf syndrome), Paroxysmal atrial fibrillation, AICD (automatic cardioverter/defibrillator) [...] rhythm. Continue home medications. Follow-up with your tele rn at [facility]. Return if any worsening symptoms. Disposition Disposition: Home, Self Care What to do if you have Problems For any increased pain, shortness of breath, bleeding, nausea or vomiting, chestpain, or any unexpected problems, contact your Primary Care Provider. Call [facility] ([phone]) or report to the closest Emergency Room. Call 911 if necessary. 10/26/22 0449 <Electronically signed by Jerome Fofana> Cosigner Signature (if applicable): CC: HALEY Palma ~ Signed [facility] Work Phone: Evaluation note* Diagnosis Ventricular tachyarrhythmia (HCC)- Primary Paroxysmal ventricular tachycardia Paroxysmal atrial fibrillation (HCC) Atrial fibrillation [facility] Diagnosis Mixed hyperlipidemia- Primary Obesity, Class III, BMI 40-49.9 (morbid obesity) (HCC) Morbid obesity Prediabetes Other abnormal glucose [facility] Diagnosis Paroxysmal atrial fibrillation (HCC)- Primary Atrial fibrillation Dilated cardiomyopathy (HCC) Other primary cardiomyopathies Acute on chronic diastolic (congestive) heart failure (HCC) ICD (implantable cardioverter-defibrillator) in place Automatic implantable cardiac defibrillator in situ HOCM (hypertrophic obstructive cardiomyopathy) (HCC) Hypertrophic obstructive cardiomyopathy Vkwlr-Djwikpnnl-Ydeel (WPW) syndrome Anomalous atrioventricular excitation Left bundle [...] of multiple providers [facility] this encounter [facility] noteNo assessment information availableWSt. Francis [facility] Work Phone: Evaluation note* Diagnosis Paroxysmal atrial fibrillation (HCC)- Primary Atrial fibrillation [facility]* Diagnosis Suspected COVID-19 virus infection- Primary [facility] encounter [facility]* Diagnosis COVID-19- Primary [facility]* Diagnosis HOCM (hypertrophic obstructive cardiomyopathy) (HCC)- Primary Hypertrophic obstructive cardiomyopathy [facility] Diagnosis [place] eye disease of both eyes- Primary [facility]* Diagnosis Obesity, Class III, BMI 40-49.9 (morbid obesity) (HCC)- Primary Morbid obesity Dietary counseling and surveillance Dietary surveillance and counseling [facility]* Diagnosis Acute midline low back pain with left-sided sciatica- Primary Leukocytes in urine Other cells and casts in urine documented in this encounter [facility] Diagnosis HOCM (hypertrophic obstructive cardiomyopathy) (HCC)- Primary Hypertrophic obstructive cardiomyopathy Class 3 obesity (HCC)- Primary Dietary counseling and surveillance Dietary surveillance and counseling [facility] Diagnosis HOCM (hypertrophic obstructive cardiomyopathy) (HCC)- Primary Hypertrophic obstructive cardiomyopathy [facility] Diagnosis HOCM (hypertrophic obstructive cardiomyopathy) (HCC)- Primary Hypertrophic obstructive cardiomyopathy Paroxysmal atrial fibrillation (HCC) Atrial fibrillation [facility] Diagnosis QUINTON (obstructive sleep apnea)- Primary Obstructive sleep apnea (adult) (pediatric) Abnormal ultrasound Other nonspecific (abnormal) findings on radiological and other examinations of body structure [facility] QUINTON (obstructive sleep apnea)- Primary Obstructive sleep apnea (adult) (pediatric) Paroxysmal atrial fibrillation (HCC) Atrial fibrillation Acute on chronic diastolic (congestive) heart failure ([facility]) [facility] Diagnosis 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 Irregular astigmatism of both eyes Irregular astigmatism Dry eye syndrome of both eyes [facility] Diagnosis HOCM (hypertrophic obstructive cardiomyopathy) ([facility])- Primary Hypertrophic obstructive cardiomyopathy [facility] Diagnosis 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 Irregular astigmatism of both eyes Irregular astigmatism Dry eye syndrome of both eyes [facility]* Diagnosis Class 3 severe obesity due to excess calories with serious comorbidity 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.9 in adult ([facility])- Primary Hypertrophic obstructive cardiomyopathy (HOCM) ([facility]) Hypertrophic obstructive cardiomyopathy Pre-op examination Preoperative examination, unspecified [facility] Diagnosis 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 Irregular astigmatism of both eyes Irregular astigmatism Dry eye syndrome of both eyes Class 3 severe obesity due to excess calories with serious comorbidity 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.9 in adult (HCC) Hypertrophic obstructive cardiomyopathy (HOCM) ([facility]) Hypertrophic obstructive cardiomyopathy Pre-op examination Preoperative examination, unspecified [facility] Diagnosis Preoperative examination- Primary Preoperative examination, unspecified Body mass index 40.0-44.9, adult (HCC) Body Mass Index 40.0-44.9, adult Obstructive sleep apnea (adult) (pediatric) 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 anticoagulants Long-term (current) use of anticoagulants Obesity, Class II, BMI 35-39.9 Obesity, unspecified Class 3 severe obesity due to excess calories with serious comorbidity 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.9 in adult ([facility]) Hypertrophic obstructive cardiomyopathy (HOCM) (HCC) Hypertrophic obstructive cardiomyopathy Pre-op examination Preoperative examination, unspecified [facility] Pre-op evaluation- Primary Preoperative examination, unspecified HOCM (hypertrophic obstructive cardiomyopathy) ([facility]) Hypertrophic obstructive cardiomyopathy Ytvri-Ymcnjguhx-Essaw (WPW) syndrome Anomalous atrioventricular excitation Paroxysmal atrial fibrillation (HCC) Atrial fibrillation ICD (implantable cardioverter-defibrillator) in place Automatic implantable cardiac defibrillator in situ Acute on chronic diastolic (congestive) heart failure ([facility]) QUINTON (obstructive sleep apnea) Obstructive sleep apnea (adult) (pediatric) Body mass index 40.0-44.9, adult (HCC) Body Mass Index 40.0-44.9, adult Pre-diabetes Other abnormal glucose Class 3 severe obesity due to excess calories with serious comorbidity 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.9 in adult ([facility]) Hypertrophic obstructive cardiomyopathy (HOCM) (HCC) Hypertrophic obstructive cardiomyopathy Pre-op examination Preoperative examination, unspecified [facility] Diagnosis Obesity, Class III, BMI 40-49.9 (morbid obesity) ([facility])- Primary Morbid obesity Dietary counseling and surveillance Dietary surveillance and counseling Class 3 severe obesity due to excess calories with serious comorbidity 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.9 in adult (HCC) Hypertrophic obstructive cardiomyopathy (HOCM) (HCC) Hypertrophic obstructive cardiomyopathy Pre-op examination Preoperative examination, unspecified [facility] Diagnosis QUINTON (obstructive sleep apnea)- Primary Obstructive sleep apnea (adult) (pediatric) Paroxysmal atrial fibrillation (HCC) Atrial fibrillation Class 3 severe obesity due to excess calories with serious comorbidity 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.9 in adult ([facility]) Hypertrophic obstructive cardiomyopathy (HOCM) (HCC) Hypertrophic obstructive cardiomyopathy Pre-op examination Preoperative examination, unspecified [facility] Diagnosis Impaired intestinal absorption- Primary Unspecified intestinal malabsorption S/P gastric bypass Bariatric surgery status Obesity, Class II, BMI 35-39.9 Obesity, unspecified Dietary counseling and surveillance Dietary surveillance and counseling [facility] Diagnosis S/P gastric bypass- Primary Bariatric surgery status Postoperative state Other postprocedural status [facility] Diagnosis Paroxysmal atrial fibrillation (HCC)- Primary Atrial fibrillation [facility]* Diagnosis PAF (paroxysmal atrial fibrillation) (HCC)- Primary Atrial fibrillation [facility]* Diagnosis 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 anticoagulants- Primary Long-term (current) use of anticoagulants [facility]* Diagnosis USP (current) use of anticoagulants Long-term (current) use of anticoagulants Paroxysmal atrial fibrillation (HCC) Atrial fibrillation [facility]* Diagnosis 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 anticoagulants Long-term (current) use of anticoagulants Paroxysmal atrial fibrillation (HCC) Atrial fibrillation [facility] Diagnosis USP (current) use of anticoagulants Long-term (current) use of anticoagulants Paroxysmal atrial fibrillation (HCC) Atrial fibrillation [facility]* Diagnosis Dysuria- Primary [facility]* Diagnosis Bariatric surgery status- Primary S/P gastric bypass Bariatric surgery status Postoperative state Other postprocedural status Dysuria 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 anticoagulants Long-term (current) use of anticoagulants Obstructive sleep apnea (adult) (pediatric) [facility]* Diagnosis USP (current) use of anticoagulants Long-term (current) use of anticoagulants Paroxysmal atrial fibrillation (HCC) Atrial fibrillation [facility]* Diagnosis Paroxysmal atrial fibrillation (HCC)- Primary Atrial fibrillation 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 anticoagulants Long-term (current) use of anticoagulants HOCM (hypertrophic obstructive cardiomyopathy) (HCC) Hypertrophic obstructive cardiomyopathy ICD (implantable cardioverter-defibrillator) in place Automatic implantable cardiac defibrillator in situ S/P ablation of accessory bypass tract Other postprocedural status [facility]* Diagnosis Abnormal urine- Primary Other nonspecific [...] status S/P gastric bypass Bariatric surgery status Pkxov-Udasbfrwn-Zqybu (WPW) syndrome Anomalous atrioventricular excitation [facility]* Diagnosis Symptomatic cholelithiasis- Primary Calculus of gallbladder without mention of cholecystitis or obstruction Obesity, Class I, BMI 30-34.9 Obesity, unspecified S/P gastric bypass Bariatric surgery status Cholelithiasis with choledocholithiasis Calculus of gallbladder and bile duct without cholecystitis, without mention of obstruction S/P gastric bypass Bariatric surgery status Hypertrophic obstructive cardiomyopathy (HCC) [facility]* Diagnosis Cholelithiasis with choledocholithiasis- Primary Calculus of gallbladder and bile duct without cholecystitis, without mention of obstruction S/P gastric bypass Bariatric surgery status Hypertrophic obstructive cardiomyopathy (HCC) Cholelithiasis with choledocholithiasis Calculus of gallbladder and bile duct without cholecystitis, without mention of obstruction S/P gastric bypass Bariatric surgery status Hypertrophic obstructive cardiomyopathy (HCC) [facility]* Diagnosis Atrial fibrillation, unspecified type (HCC)- Primary Paroxysmal atrial fibrillation (HCC) Atrial fibrillation 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 anticoagulants Long-term (current) use of anticoagulants Cholelithiasis with choledocholithiasis Calculus of gallbladder and bile duct without cholecystitis, without mention of obstruction S/P gastric bypass Bariatric surgery status Hypertrophic obstructive cardiomyopathy (HCC) documented in this encounter [facility]* Diagnosis Pre-op evaluation- Primary Preoperative examination, unspecified Uktnj-Behuppsia-Wevgr (WPW) syndrome Anomalous atrioventricular excitation Paroxysmal atrial [...] obstructive cardiomyopathy (HCC) [facility]* Diagnosis Atrial fibrillation, unspecified type (HCC)- Primary Paroxysmal atrial fibrillation (HCC) Atrial fibrillation USP (current) use of anticoagulants Long-term (current) use of anticoagulants Cholelithiasis with choledocholithiasis Calculus of gallbladder and bile duct without cholecystitis, without mention of obstruction S/P gastric bypass Bariatric surgery status Hypertrophic obstructive cardiomyopathy (HCC) documented in this encounter [facility] note* Diagnosis Atrial fibrillation, unspecified type (HCC)- Primary Paroxysmal atrial fibrillation (HCC) Atrial fibrillation 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 anticoagulants Long-term (current) use of anticoagulants [facility]* Diagnosis S/P gastric bypass- Primary Bariatric surgery status Obesity, Class I, BMI 30-34.9 Obesity, unspecified Dietary counseling and surveillance Dietary surveillance and counseling documented in this encounter [facility]* Diagnosis Atrial fibrillation, unspecified type (HCC)- Primary Paroxysmal atrial fibrillation (HCC) Atrial fibrillation 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 anticoagulants Long-term (current) use of anticoagulants [facility]* Diagnosis Atrial fibrillation, unspecified type (HCC)- Primary Paroxysmal atrial fibrillation (HCC) Atrial fibrillation 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 anticoagulants Long-term (current) use of anticoagulants [facility]* Diagnosis HOCM (hypertrophic obstructive cardiomyopathy) (HCC)- Primary Hypertrophic obstructive cardiomyopathy Paroxysmal atrial fibrillation (HCC) Atrial fibrillation Overweight [facility]* Diagnosis Atrial fibrillation, unspecified type (HCC)- Primary Paroxysmal atrial fibrillation (HCC) Atrial fibrillation 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 anticoagulants Long-term (current) use of anticoagulants [facility]* Diagnosis Paroxysmal atrial fibrillation (HCC)- Primary Atrial fibrillation 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 anticoagulants Long-term (current) use of anticoagulants [facility]* Diagnosis Encounter for screening mammogram for breast cancer [facility]* Diagnosis Class 3 obesity with alveolar hypoventilation, serious comorbidity, 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.9 in adult (HCC) documented in this encounter [facility] note* Diagnosis Liver nodule Other specified disorders of liver [facility]* Diagnosis Impaired intestinal absorption- Primary Unspecified intestinal malabsorption S/P gastric bypass Bariatric surgery status Overweight (BMI 25.0-29.9) Overweight Dietary counseling and surveillance Dietary surveillance and counseling [facility]* Diagnosis Paroxysmal atrial fibrillation (HCC)- Primary Atrial fibrillation USP (current) use of anticoagulants Long-term (current) use of anticoagulants Atrial fibrillation, unspecified type (HCC) [facility]* Diagnosis Lumbar radiculopathy- Primary Thoracic or lumbosacral neuritis or radiculitis, unspecified [facility]* Diagnosis Abnormal mammogram Abnormal mammogram, unspecified [facility]* Diagnosis Abnormal mammogram Abnormal mammogram, unspecified [facility]* Diagnosis Paroxysmal atrial fibrillation (HCC)- Primary Atrial fibrillation 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 anticoagulants Long-term (current) use of anticoagulants Atrial fibrillation, unspecified type (HCC) [facility]* Diagnosis Paroxysmal atrial fibrillation (HCC)- Primary Atrial fibrillation USP (current) use of anticoagulants Long-term (current) use of anticoagulants [facility]* Diagnosis Paroxysmal atrial fibrillation (HCC)- Primary Atrial fibrillation 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 anticoagulants Long-term (current) use of anticoagulants Atrial fibrillation, unspecified type (HCC) [facility]* Diagnosis Paroxysmal atrial fibrillation (HCC)- Primary Atrial fibrillation 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 anticoagulants Long-term (current) use of anticoagulants Atrial fibrillation, unspecified type (HCC) [facility]* Diagnosis Atrial fibrillation, unspecified type (HCC)- Primary Paroxysmal atrial fibrillation (HCC) Atrial fibrillation 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 anticoagulants Long-term (current) use of anticoagulants [facility]* Diagnosis Atrial fibrillation, unspecified type (HCC)- Primary HOCM (hypertrophic obstructive cardiomyopathy) (HCC) Hypertrophic obstructive cardiomyopathy Ventricular tachyarrhythmia (HCC) Paroxysmal ventricular tachycardia [facility]* Diagnosis Paroxysmal atrial fibrillation (HCC)- Primary Atrial fibrillation 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 anticoagulants Long-term (current) use of anticoagulants Atrial fibrillation, unspecified type (HCC) [facility]* Diagnosis S/P gastric bypass- Primary Bariatric surgery status Vitamin D deficiency, unspecified [facility]* Diagnosis Atrial fibrillation, unspecified type (HCC)- Primary Paroxysmal atrial fibrillation (HCC) Atrial fibrillation USP (current) use of anticoagulants Long-term (current) use of anticoagulants [facility]* Diagnosis S/P gastric bypass- Primary Bariatric surgery status [facility] Diagnosis Atrial fibrillation, unspecified type (HCC)- Primary Paroxysmal atrial fibrillation (HCC) Atrial fibrillation 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 anticoagulants Long-term (current) use of anticoagulants [facility]* Diagnosis Atrial fibrillation, unspecified type (HCC)- Primary [facility]* Diagnosis Rosacea keratitis- Primary Rosacea Irregular astigmatism of both eyes Irregular astigmatism 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 [facility]* Diagnosis Atrial fibrillation, unspecified type (HCC)- Primary Paroxysmal atrial fibrillation (HCC) Atrial fibrillation 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 anticoagulants Long-term (current) use of anticoagulants [facility]* Diagnosis Atrial fibrillation, unspecified type (HCC)- Primary Paroxysmal atrial fibrillation (HCC) Atrial fibrillation USP (current) use of anticoagulants Long-term (current) use of anticoagulants [facility] Diagnosis Atrial fibrillation, unspecified type (HCC)- Primary Paroxysmal atrial fibrillation (HCC) Atrial fibrillation USP (current) use of anticoagulants Long-term (current) use of anticoagulants Irregular astigmatism of both eyes Irregular astigmatism 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 [facility]* Diagnosis Pre-op exam- Primary Preoperative examination, unspecified Irregular astigmatism of both eyes Irregular astigmatism 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 [facility]* Diagnosis Paroxysmal atrial fibrillation (HCC)- Primary Atrial fibrillation 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 anticoagulants Long-term (current) use of anticoagulants Atrial fibrillation, unspecified type (HCC) Irregular astigmatism of both eyes Irregular astigmatism 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 [facility]* Diagnosis NO SHOW- Primary Irregular astigmatism of both eyes Irregular astigmatism 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 [facility]* Diagnosis Atrial fibrillation, unspecified type (HCC)- Primary Paroxysmal atrial fibrillation (HCC) Atrial fibrillation USP (current) use of anticoagulants Long-term (current) use of anticoagulants Irregular astigmatism of both eyes Irregular astigmatism 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 [facility]* Diagnosis Atrial fibrillation, unspecified type (HCC)- Primary Paroxysmal atrial fibrillation (HCC) Atrial fibrillation 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 anticoagulants Long-term (current) use of anticoagulants [facility]* Diagnosis Paroxysmal atrial fibrillation (HCC) Atrial fibrillation Acute on chronic diastolic (congestive) heart failure (HCC) Dilated cardiomyopathy (HCC) Other primary cardiomyopathies HOCM (hypertrophic obstructive cardiomyopathy) (HCC) Hypertrophic obstructive cardiomyopathy Wsrts-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 [facility]* Diagnosis 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 Irregular astigmatism of both eyes Irregular astigmatism [facility]* Diagnosis Atrial fibrillation, unspecified type (HCC)- Primary Paroxysmal atrial fibrillation (HCC) Atrial fibrillation 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 anticoagulants Long-term (current) use of anticoagulants [facility] Diagnosis 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 Irregular astigmatism of both eyes Irregular astigmatism [facility] Diagnosis Pre-op evaluation- Primary Preoperative examination, unspecified HOCM (hypertrophic obstructive cardiomyopathy) (HCC) Hypertrophic obstructive cardiomyopathy Ewlox-Vmaxzlfro-Upsfp (WPW) syndrome Anomalous atrioventricular excitation Paroxysmal atrial fibrillation (HCC) Atrial fibrillation ICD (implantable cardioverter-defibrillator) in place Automatic implantable cardiac defibrillator in situ Acute on chronic diastolic (congestive) heart failure (HCC) QUINTON (obstructive sleep apnea) Obstructive sleep apnea (adult) (pediatric) Body mass index 40.0-44.9, adult (HCC) Body Mass Index 40.0-44.9, adult Pre-diabetes Other abnormal glucose Pre-op evaluation- Primary Preoperative examination, unspecified Gfwfb-Pogodgxdj-Apkwr (WPW) syndrome Anomalous atrioventricular excitation Paroxysmal atrial [...] Primary Paroxysmal atrial fibrillation (HCC) Atrial fibrillation USP (current) use of anticoagulants Long-term (current) use of anticoagulants [facility] Diagnosis Pre-op evaluation- Primary Preoperative examination, unspecified HOCM (hypertrophic obstructive cardiomyopathy) (HCC) Hypertrophic obstructive cardiomyopathy Jbpia-Urbgtjcsm-Qglmh (WPW) syndrome Anomalous atrioventricular excitation Paroxysmal atrial fibrillation (HCC) Atrial fibrillation ICD (implantable cardioverter-defibrillator) in place Automatic implantable cardiac defibrillator in situ Acute on chronic diastolic (congestive) heart failure (HCC) QUINTON (obstructive sleep apnea) Obstructive sleep apnea (adult) (pediatric) Body mass index 40.0-44.9, adult (HCC) Body Mass Index 40.0-44.9, adult Pre-diabetes Other abnormal glucose Pre-op evaluation- Primary Preoperative examination, unspecified Eukfc-Dokmgvfbh-Gqelx (WPW) syndrome Anomalous atrioventricular excitation Paroxysmal atrial [...] eyes Irregular astigmatism [facility] Diagnosis Pre-op evaluation- Primary Preoperative examination, unspecified HOCM (hypertrophic obstructive cardiomyopathy) (HCC) Hypertrophic obstructive cardiomyopathy Vurrf-Bqczuiolq-Retxq (WPW) syndrome Anomalous atrioventricular excitation Paroxysmal atrial fibrillation (HCC) Atrial fibrillation ICD (implantable cardioverter-defibrillator) in place Automatic implantable cardiac defibrillator in situ Acute on chronic diastolic (congestive) heart failure (HCC) QUINTON (obstructive sleep apnea) Obstructive sleep apnea (adult) (pediatric) Body mass index 40.0-44.9, adult (HCC) Body Mass Index 40.0-44.9, adult Pre-diabetes Other abnormal glucose Pre-op evaluation- Primary Preoperative examination, unspecified Jzmzl-Tqdzcyhug-Sudut (WPW) syndrome Anomalous atrioventricular excitation Paroxysmal atrial [...] Paroxysmal atrial fibrillation (HCC)- Primary Atrial fibrillation USP (current) use of anticoagulants Long-term (current) use of anticoagulants [facility] Diagnosis Pre-op evaluation- Primary Preoperative examination, unspecified HOCM (hypertrophic obstructive cardiomyopathy) (HCC) Hypertrophic obstructive cardiomyopathy Sbnhi-Cotmrpdei-Vmuyu (WPW) syndrome Anomalous atrioventricular excitation Paroxysmal atrial fibrillation (HCC) Atrial fibrillation ICD (implantable cardioverter-defibrillator) in place Automatic implantable cardiac defibrillator in situ Acute on chronic diastolic (congestive) heart failure (HCC) QUINTON (obstructive sleep apnea) Obstructive sleep apnea (adult) (pediatric) Body mass index 40.0-44.9, adult (HCC) Body Mass Index 40.0-44.9, adult Pre-diabetes Other abnormal glucose Pre-op evaluation- Primary Preoperative examination, unspecified Nqvaf-Ifedsxcbj-Dmxpu (WPW) syndrome Anomalous atrioventricular excitation Paroxysmal atrial [...] of [facility] Diagnosis Pre-op evaluation- Primary Preoperative examination, unspecified HOCM (hypertrophic obstructive cardiomyopathy) (HCC) Hypertrophic obstructive cardiomyopathy Hisuc-Ocqooxifb-Ljajv (WPW) syndrome Anomalous atrioventricular excitation Paroxysmal atrial fibrillation (HCC) Atrial fibrillation ICD (implantable cardioverter-defibrillator) in place Automatic implantable cardiac defibrillator in situ Acute on chronic diastolic (congestive) heart failure (HCC) QUINTON (obstructive sleep apnea) Obstructive sleep apnea (adult) (pediatric) Body mass index 40.0-44.9, adult (HCC) Body Mass Index 40.0-44.9, adult Pre-diabetes Other abnormal glucose Pre-op evaluation- Primary Preoperative examination, unspecified Riwwm-Dilzhdcxf-Ftpon (WPW) syndrome Anomalous atrioventricular excitation Paroxysmal atrial [...] Primary Paroxysmal atrial fibrillation (HCC) Atrial fibrillation USP (current) use of anticoagulants Long-term (current) use of anticoagulants [facility] Diagnosis Pre-op evaluation- Primary Preoperative examination, unspecified HOCM (hypertrophic obstructive cardiomyopathy) (HCC) Hypertrophic obstructive cardiomyopathy Otgzk-Ldhwlfiex-Nevsl (WPW) syndrome Anomalous atrioventricular excitation Paroxysmal atrial fibrillation (HCC) Atrial fibrillation ICD (implantable cardioverter-defibrillator) in place Automatic implantable cardiac defibrillator in situ Acute on chronic diastolic (congestive) heart failure (HCC) QUINTON (obstructive sleep apnea) Obstructive sleep apnea (adult) (pediatric) Body mass index 40.0-44.9, adult (HCC) Body Mass Index 40.0-44.9, adult Pre-diabetes Other abnormal glucose Pre-op evaluation- Primary Preoperative examination, unspecified Vvces-Vwjfuaklf-Syglx (WPW) syndrome Anomalous atrioventricular excitation Paroxysmal atrial [...] or radiculitis, unspecified [facility] Diagnosis Class 3 obesity with alveolar hypoventilation, serious comorbidity, 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.9 in adult (HCC) Pre-op evaluation- Primary Preoperative examination, unspecified HOCM (hypertrophic obstructive cardiomyopathy) (HCC) Hypertrophic obstructive cardiomyopathy Sakco-Htdwvswdd-Ikwkm (WPW) syndrome Anomalous atrioventricular excitation Paroxysmal atrial fibrillation (HCC) Atrial fibrillation ICD (implantable cardioverter-defibrillator) in place Automatic implantable cardiac defibrillator in situ Acute on chronic diastolic (congestive) heart failure (HCC) QUINTON (obstructive sleep apnea) Obstructive sleep apnea (adult) (pediatric) Body mass index 40.0-44.9, adult (HCC) Body Mass Index 40.0-44.9, adult Pre-diabetes Other abnormal glucose Pre-op evaluation- Primary Preoperative examination, unspecified Vsqaz-Ztixwanol-Iizea (WPW) syndrome Anomalous atrioventricular excitation Paroxysmal atrial [...] 30-34.9 Obesity, unspecified [facility] Diagnosis Pre-op evaluation- Primary Preoperative examination, unspecified HOCM (hypertrophic obstructive cardiomyopathy) (HCC) Hypertrophic obstructive cardiomyopathy Bqynh-Ktqxweuqs-Wfnhr (WPW) syndrome Anomalous atrioventricular excitation Paroxysmal atrial fibrillation (HCC) Atrial fibrillation ICD (implantable cardioverter-defibrillator) in place Automatic implantable cardiac defibrillator in situ Acute on chronic diastolic (congestive) heart failure (HCC) QUINTON (obstructive sleep apnea) Obstructive sleep apnea (adult) (pediatric) Body mass index 40.0-44.9, adult (HCC) Body Mass Index 40.0-44.9, adult Pre-diabetes Other abnormal glucose Pre-op evaluation- Primary Preoperative examination, unspecified Cgldk-Jbojbitsl-Cvewi (WPW) syndrome Anomalous atrioventricular excitation Paroxysmal atrial [...] use of anticoagulants [facility] Diagnosis Sprain of left wrist, subsequent encounter Pre-op evaluation- Primary Preoperative examination, unspecified HOCM (hypertrophic obstructive cardiomyopathy) (HCC) Hypertrophic obstructive cardiomyopathy Dsstq-Frouapqyr-Jiiio (WPW) syndrome Anomalous atrioventricular excitation Paroxysmal atrial fibrillation (HCC) Atrial fibrillation ICD (implantable cardioverter-defibrillator) in place Automatic implantable cardiac defibrillator in situ Acute on chronic diastolic (congestive) heart failure (HCC) QUINTON (obstructive sleep apnea) Obstructive sleep apnea (adult) (pediatric) Body mass index 40.0-44.9, adult (HCC) Body Mass Index 40.0-44.9, adult Pre-diabetes Other abnormal glucose Pre-op evaluation- Primary Preoperative examination, unspecified Qagnn-Hlsfvdkwk-Huzbc (WPW) syndrome Anomalous atrioventricular excitation Paroxysmal atrial [...] 30-34.9 Obesity, unspecified [facility] Diagnosis Pre-op evaluation- Primary Preoperative examination, unspecified HOCM (hypertrophic obstructive cardiomyopathy) (HCC) Hypertrophic obstructive cardiomyopathy Jspbg-Wlffngkss-Hpzaz (WPW) syndrome Anomalous atrioventricular excitation Paroxysmal atrial fibrillation (HCC) Atrial fibrillation ICD (implantable cardioverter-defibrillator) in place Automatic implantable cardiac defibrillator in situ Acute on chronic diastolic (congestive) heart failure (HCC) QUINTON (obstructive sleep apnea) Obstructive sleep apnea (adult) (pediatric) Body mass index 40.0-44.9, adult (HCC) Body Mass Index 40.0-44.9, adult Pre-diabetes Other abnormal glucose Pre-op evaluation- Primary Preoperative examination, unspecified Vuqyq-Afgzklmqn-Ozxbv (WPW) syndrome Anomalous atrioventricular excitation Paroxysmal atrial [...] place Automatic implantable cardiac defibrillator in situ Oekqs-Sntmmkwii-Uchbx (WPW) syndrome Anomalous atrioventricular excitation S/P gastric bypass Bariatric surgery status Hair loss Alopecia, unspecified Screening for depression Encounter for screening examination for other mental health and behavioral disorders Screening for cervical cancer Screening for malignant neoplasm of the cervix [facility] Pre-op evaluation- Primary Preoperative examination, unspecified HOCM (hypertrophic obstructive cardiomyopathy) (HCC) Hypertrophic obstructive cardiomyopathy Tieef-Hnkwbbysb-Uqofv (WPW) syndrome Anomalous atrioventricular excitation Paroxysmal atrial fibrillation (HCC) Atrial fibrillation ICD (implantable cardioverter-defibrillator) in place Automatic implantable cardiac defibrillator in situ Acute on chronic diastolic (congestive) heart failure (HCC) QUINTON (obstructive sleep apnea) Obstructive sleep apnea (adult) (pediatric) Body mass index 40.0-44.9, adult (HCC) Body Mass Index 40.0-44.9, adult Pre-diabetes Other abnormal glucose Pre-op evaluation- Primary Preoperative examination, unspecified Qzqrx-Cgzkpeomf-Lxreb (WPW) syndrome Anomalous atrioventricular excitation Paroxysmal atrial [...] use of anticoagulants [facility] Diagnosis Pre-op evaluation- Primary Preoperative examination, unspecified HOCM (hypertrophic obstructive cardiomyopathy) (HCC) Hypertrophic obstructive cardiomyopathy Htlxc-Ayowkukkm-Tkigk (WPW) syndrome Anomalous atrioventricular excitation Paroxysmal atrial fibrillation (HCC) Atrial fibrillation ICD (implantable cardioverter-defibrillator) in place Automatic implantable cardiac defibrillator in situ Acute on chronic diastolic (congestive) heart failure (HCC) QUINTON (obstructive sleep apnea) Obstructive sleep apnea (adult) (pediatric) Body mass index 40.0-44.9, adult (HCC) Body Mass Index 40.0-44.9, adult Pre-diabetes Other abnormal glucose Pre-op evaluation- Primary Preoperative examination, unspecified Famwh-Qncqavtho-Ywlre (WPW) syndrome Anomalous atrioventricular excitation Paroxysmal atrial [...] use of anticoagulants [facility] Diagnosis Pre-op evaluation- Primary Preoperative examination, unspecified HOCM (hypertrophic obstructive cardiomyopathy) (HCC) Hypertrophic obstructive cardiomyopathy Msdag-Cihohbbcm-Sodeh (WPW) syndrome Anomalous atrioventricular excitation Paroxysmal atrial fibrillation (HCC) Atrial fibrillation ICD (implantable cardioverter-defibrillator) in place Automatic implantable cardiac defibrillator in situ Acute on chronic diastolic (congestive) heart failure (HCC) QUINTON (obstructive sleep apnea) Obstructive sleep apnea (adult) (pediatric) Body mass index 40.0-44.9, adult (HCC) Body Mass Index 40.0-44.9, adult Pre-diabetes Other abnormal glucose Pre-op evaluation- Primary Preoperative examination, unspecified Etdkn-Kwjmhqwrt-Fusak (WPW) syndrome Anomalous atrioventricular excitation Paroxysmal atrial [...] of both eyes [facility] Diagnosis Pre-op evaluation- Primary Preoperative examination, unspecified HOCM (hypertrophic obstructive cardiomyopathy) (HCC) Hypertrophic obstructive cardiomyopathy Scsmg-Eydyhrfxy-Idkxn (WPW) syndrome Anomalous atrioventricular excitation Paroxysmal atrial fibrillation (HCC) Atrial fibrillation ICD (implantable cardioverter-defibrillator) in place Automatic implantable cardiac defibrillator in situ Acute on chronic diastolic (congestive) heart failure (HCC) QUINTON (obstructive sleep apnea) Obstructive sleep apnea (adult) (pediatric) Body mass index 40.0-44.9, adult (HCC) Body Mass Index 40.0-44.9, adult Pre-diabetes Other abnormal glucose Pre-op evaluation- Primary Preoperative examination, unspecified Jrllw-Nuacageoq-Nrajq (WPW) syndrome Anomalous atrioventricular excitation Paroxysmal atrial [...] Paroxysmal atrial fibrillation (HCC)- Primary Atrial fibrillation USP (current) use of anticoagulants Long-term (current) use of anticoagulants Atrial fibrillation, unspecified type (HCC) [facility] Diagnosis Pre-op evaluation- Primary Preoperative examination, unspecified HOCM (hypertrophic obstructive cardiomyopathy) (HCC) Hypertrophic obstructive cardiomyopathy Rjlqc-Nnjyvjqgs-Gyejw (WPW) syndrome Anomalous atrioventricular excitation Paroxysmal atrial fibrillation (HCC) Atrial fibrillation ICD (implantable cardioverter-defibrillator) in place Automatic implantable cardiac defibrillator in situ Acute on chronic diastolic (congestive) heart failure (HCC) QUINTON (obstructive sleep apnea) Obstructive sleep apnea (adult) (pediatric) Body mass index 40.0-44.9, adult (HCC) Body Mass Index 40.0-44.9, adult Pre-diabetes Other abnormal glucose Pre-op evaluation- Primary Preoperative examination, unspecified Cqdke-Meozwwtve-Aanyv (WPW) syndrome Anomalous atrioventricular excitation Paroxysmal atrial [...] device Decreased libido [facility] Diagnosis Pre-op evaluation- Primary Preoperative examination, unspecified HOCM (hypertrophic obstructive cardiomyopathy) (HCC) Hypertrophic obstructive cardiomyopathy Jldrc-Xhjiwcbis-Kpgnl (WPW) syndrome Anomalous atrioventricular excitation Paroxysmal atrial fibrillation (HCC) Atrial fibrillation ICD (implantable cardioverter-defibrillator) in place Automatic implantable cardiac defibrillator in situ Acute on chronic diastolic (congestive) heart failure (HCC) QUINTON (obstructive sleep apnea) Obstructive sleep apnea (adult) (pediatric) Body mass index 40.0-44.9, adult (HCC) Body Mass Index 40.0-44.9, adult Pre-diabetes Other abnormal glucose Pre-op evaluation- Primary Preoperative examination, unspecified Wmlpu-Bhddnjhza-Vtppt (WPW) syndrome Anomalous atrioventricular excitation Paroxysmal atrial [...] of cardiac pacemaker documented in this encounter [facility]* Diagnosis Pre-op evaluation- Primary Preoperative examination, unspecified HOCM (hypertrophic obstructive cardiomyopathy) (HCC) Hypertrophic obstructive cardiomyopathy Gmxlq-Qhadgjtxc-Mhlgk (WPW) syndrome Anomalous atrioventricular excitation Paroxysmal atrial fibrillation (HCC) Atrial fibrillation ICD (implantable cardioverter-defibrillator) in place Automatic implantable cardiac defibrillator in situ Acute on chronic diastolic (congestive) heart failure (HCC) QUINTON (obstructive sleep apnea) Obstructive sleep apnea (adult) (pediatric) Body mass index 40.0-44.9, adult (HCC) Body Mass Index 40.0-44.9, adult Pre-diabetes Other abnormal glucose Pre-op evaluation- Primary Preoperative examination, unspecified Yxmud-Waounegfx-Vqzqq (WPW) syndrome Anomalous atrioventricular excitation Paroxysmal atrial [...] Hypertrophic obstructive cardiomyopathy documented in this encounter [facility] note* Diagnosis Pre-op evaluation- Primary Preoperative examination, unspecified HOCM (hypertrophic obstructive cardiomyopathy) (HCC) Hypertrophic obstructive cardiomyopathy Wjavm-Ztdavprft-Wjtpr (WPW) syndrome Anomalous atrioventricular excitation Paroxysmal atrial fibrillation (HCC) Atrial fibrillation ICD (implantable cardioverter-defibrillator) in place Automatic implantable cardiac defibrillator in situ Acute on chronic diastolic (congestive) heart failure (HCC) QUINTON (obstructive sleep apnea) Obstructive sleep apnea (adult) (pediatric) Body mass index 40.0-44.9, adult (HCC) Body Mass Index 40.0-44.9, adult Pre-diabetes Other abnormal glucose Pre-op evaluation- Primary Preoperative examination, unspecified Btfgq-Xxxxqelay-Jjuzo (WPW) syndrome Anomalous atrioventricular excitation Paroxysmal atrial [...] use of anticoagulants [facility] Diagnosis Pre-op evaluation- Primary Preoperative examination, unspecified HOCM (hypertrophic obstructive cardiomyopathy) (HCC) Hypertrophic obstructive cardiomyopathy Znoes-Wdfbhvsnz-Utjae (WPW) syndrome Anomalous atrioventricular excitation Paroxysmal atrial fibrillation (HCC) Atrial fibrillation ICD (implantable cardioverter-defibrillator) in place Automatic implantable cardiac defibrillator in situ Acute on chronic diastolic (congestive) heart failure (HCC) QUINTON (obstructive sleep apnea) Obstructive sleep apnea (adult) (pediatric) Body mass index 40.0-44.9, adult (HCC) Body Mass Index 40.0-44.9, adult Pre-diabetes Other abnormal glucose Pre-op evaluation- Primary Preoperative examination, unspecified Iiaix-Hinazswni-Jwccq (WPW) syndrome Anomalous atrioventricular excitation Paroxysmal atrial [...] (HCC) Atrial fibrillation [facility] Diagnosis Pre-op evaluation- Primary Preoperative examination, unspecified HOCM (hypertrophic obstructive cardiomyopathy) (HCC) Hypertrophic obstructive cardiomyopathy Qzqpa-Nbpqedexr-Jwqed (WPW) syndrome Anomalous atrioventricular excitation Paroxysmal atrial fibrillation (HCC) Atrial fibrillation ICD (implantable cardioverter-defibrillator) in place Automatic implantable cardiac defibrillator in situ Acute on chronic diastolic (congestive) heart failure (HCC) QUINTON (obstructive sleep apnea) Obstructive sleep apnea (adult) (pediatric) Body mass index 40.0-44.9, adult (HCC) Body Mass Index 40.0-44.9, adult Pre-diabetes Other abnormal glucose Pre-op evaluation- Primary Preoperative examination, unspecified Utakj-Lvjebjcvw-Bkoru (WPW) syndrome Anomalous atrioventricular excitation Paroxysmal atrial [...] Primary Paroxysmal atrial fibrillation (HCC) Atrial fibrillation USP (current) use of anticoagulants Long-term (current) use of anticoagulants [facility] Diagnosis Pre-op evaluation- Primary Preoperative examination, unspecified HOCM (hypertrophic obstructive cardiomyopathy) (HCC) Hypertrophic obstructive cardiomyopathy Kxmyn-Fntrrbvfc-Zdkyj (WPW) syndrome Anomalous atrioventricular excitation Paroxysmal atrial fibrillation (HCC) Atrial fibrillation ICD (implantable cardioverter-defibrillator) in place Automatic implantable cardiac defibrillator in situ Acute on chronic diastolic (congestive) heart failure (HCC) QUINTON (obstructive sleep apnea) Obstructive sleep apnea (adult) (pediatric) Body mass index 40.0-44.9, adult (HCC) Body Mass Index 40.0-44.9, adult Pre-diabetes Other abnormal glucose Pre-op evaluation- Primary Preoperative examination, unspecified Ghmwz-Vcbydnain-Ypgaj (WPW) syndrome Anomalous atrioventricular excitation Paroxysmal atrial [...] for breast cancer [facility] Diagnosis Pre-op evaluation- Primary Preoperative examination, unspecified HOCM (hypertrophic obstructive cardiomyopathy) (HCC) Hypertrophic obstructive cardiomyopathy Rqefj-Iymvssbxf-Imfum (WPW) syndrome Anomalous atrioventricular excitation Paroxysmal atrial fibrillation (HCC) Atrial fibrillation ICD (implantable cardioverter-defibrillator) in place Automatic implantable cardiac defibrillator in situ Acute on chronic diastolic (congestive) heart failure (HCC) QUINTON (obstructive sleep apnea) Obstructive sleep apnea (adult) (pediatric) Body mass index 40.0-44.9, adult (HCC) Body Mass Index 40.0-44.9, adult Pre-diabetes Other abnormal glucose Pre-op evaluation- Primary Preoperative examination, unspecified Zigbc-Azkjpipuj-Ezsyb (WPW) syndrome Anomalous atrioventricular excitation Paroxysmal atrial [...] Primary Paroxysmal atrial fibrillation (HCC) Atrial fibrillation USP (current) use of anticoagulants Long-term (current) use of anticoagulants documented in this encounter [facility]* Diagnosis Pre-op evaluation- Primary Preoperative examination, unspecified HOCM (hypertrophic obstructive cardiomyopathy) (HCC) Hypertrophic obstructive cardiomyopathy Ctple-Ncyxchokk-Ovwtj (WPW) syndrome Anomalous atrioventricular excitation Paroxysmal atrial fibrillation (HCC) Atrial fibrillation ICD (implantable cardioverter-defibrillator) in place Automatic implantable cardiac defibrillator in situ Acute on chronic diastolic (congestive) heart failure (HCC) QUINTON (obstructive sleep apnea) Obstructive sleep apnea (adult) (pediatric) Body mass index 40.0-44.9, adult (HCC) Body Mass Index 40.0-44.9, adult Pre-diabetes Other abnormal glucose Pre-op evaluation- Primary Preoperative examination, unspecified Tontl-Ikyqlbuvi-Ybheu (WPW) syndrome Anomalous atrioventricular excitation Paroxysmal atrial [...] use of anticoagulants [facility] Pre[facility] evaluation- Primary Preoperative examination, unspecified HOCM (hypertrophic obstructive cardiomyopathy) (HCC) Hypertrophic obstructive cardiomyopathy Blwoj-Wiuhikvpl-Yipxg (WPW) syndrome Anomalous atrioventricular excitation Paroxysmal atrial fibrillation (HCC) Atrial fibrillation ICD (implantable cardioverter-defibrillator) in place Automatic implantable cardiac defibrillator in situ Acute on chronic diastolic (congestive) heart failure (HCC) QUINTON (obstructive sleep apnea) Obstructive sleep apnea (adult) (pediatric) Body mass index 40.0-44.9, adult (HCC) Body Mass Index 40.0-44.9, adult Pre-diabetes Other abnormal glucose Pre-op evaluation- Primary Preoperative examination, unspecified Xltub-Sknlnglsd-Omext (WPW) syndrome Anomalous atrioventricular excitation Paroxysmal atrial [...] Primary Paroxysmal atrial fibrillation (HCC) Atrial fibrillation USP (current) use of anticoagulants Long-term (current) use of anticoagulants [facility] Pre-op evaluation- Primary Preoperative examination, unspecified HOCM (hypertrophic obstructive cardiomyopathy) (HCC) Hypertrophic obstructive cardiomyopathy Yolpu-Fedvveiux-Qdmuv (WPW) syndrome Anomalous atrioventricular excitation Paroxysmal atrial fibrillation (HCC) Atrial fibrillation ICD (implantable cardioverter-defibrillator) in place Automatic implantable cardiac defibrillator in situ Acute on chronic diastolic (congestive) heart failure (HCC) QUINTON (obstructive sleep apnea) Obstructive sleep apnea (adult) (pediatric) Body mass index 40.0-44.9, adult (HCC) Body Mass Index 40.0-44.9, adult Pre-diabetes Other abnormal glucose Pre-op evaluation- Primary Preoperative examination, unspecified Obbxx-Oitcxqniq-Kywqc (WPW) syndrome Anomalous atrioventricular excitation Paroxysmal atrial [...] intrauterine contraceptive device [facility] Diagnosis Pre-op evaluation- Primary Preoperative examination, unspecified HOCM (hypertrophic obstructive cardiomyopathy) (HCC) Hypertrophic obstructive cardiomyopathy Ueuko-Zjnzxecai-Yqfbt (WPW) syndrome Anomalous atrioventricular excitation Paroxysmal atrial fibrillation (HCC) Atrial fibrillation ICD (implantable cardioverter-defibrillator) in place Automatic implantable cardiac defibrillator in situ Acute on chronic diastolic (congestive) heart failure (HCC) QUINTON (obstructive sleep apnea) Obstructive sleep apnea (adult) (pediatric) Body mass index 40.0-44.9, adult (HCC) Body Mass Index 40.0-44.9, adult Pre-diabetes Other abnormal glucose Pre-op evaluation- Primary Preoperative examination, unspecified Gqdjr-Ittayhtfe-Ruucs (WPW) syndrome Anomalous atrioventricular excitation Paroxysmal atrial [...] eyes Irregular astigmatism [facility] Diagnosis Pre-op evaluation- Primary Preoperative examination, unspecified HOCM (hypertrophic obstructive cardiomyopathy) (HCC) Hypertrophic obstructive cardiomyopathy Auhxs-Mtblpvkmy-Akjic (WPW) syndrome Anomalous atrioventricular excitation Paroxysmal atrial fibrillation (HCC) Atrial fibrillation ICD (implantable cardioverter-defibrillator) in place Automatic implantable cardiac defibrillator in situ Acute on chronic diastolic (congestive) heart failure (HCC) QUINTON (obstructive sleep apnea) Obstructive sleep apnea (adult) (pediatric) Body mass index 40.0-44.9, adult (HCC) Body Mass Index 40.0-44.9, adult Pre-diabetes Other abnormal glucose Pre-op evaluation- Primary Preoperative examination, unspecified Cxbfs-Qynmbgkqf-Ojvxe (WPW) syndrome Anomalous atrioventricular excitation Paroxysmal atrial [...] deficiency, unspecified Rosacea [facility] evaluation- Primary Preoperative examination, unspecified HOCM (hypertrophic obstructive cardiomyopathy) (HCC) Hypertrophic obstructive cardiomyopathy Schmn-Gpmlamtag-Xymzb (WPW) syndrome Anomalous atrioventricular excitation Paroxysmal atrial fibrillation (HCC) Atrial fibrillation ICD (implantable cardioverter-defibrillator) in place Automatic implantable cardiac defibrillator in situ Acute on chronic diastolic (congestive) heart failure (HCC) QUINTON (obstructive sleep apnea) Obstructive sleep apnea (adult) (pediatric) Body mass index 40.0-44.9, adult (HCC) Body Mass Index 40.0-44.9, adult Pre-diabetes Other abnormal glucose Pre-op evaluation- Primary Preoperative examination, unspecified Jrldo-Ufysxowqm-Ewxxt (WPW) syndrome Anomalous atrioventricular excitation Paroxysmal atrial [...] use of anticoagulants [facility] Diagnosis Pre-op evaluation- Primary Preoperative examination, unspecified HOCM (hypertrophic obstructive cardiomyopathy) (HCC) Hypertrophic obstructive cardiomyopathy Izosc-Vlcbawcar-Fgwwt (WPW) syndrome Anomalous atrioventricular excitation Paroxysmal atrial fibrillation (HCC) Atrial fibrillation ICD (implantable cardioverter-defibrillator) in place Automatic implantable cardiac defibrillator in situ Acute on chronic diastolic (congestive) heart failure (HCC) QUINTON (obstructive sleep apnea) Obstructive sleep apnea (adult) (pediatric) Body mass index 40.0-44.9, adult (HCC) Body Mass Index 40.0-44.9, adult Pre-diabetes Other abnormal glucose Pre-op evaluation- Primary Preoperative examination, unspecified Lkfzt-Vpgfvxlty-Cdbqx (WPW) syndrome Anomalous atrioventricular excitation Paroxysmal atrial [...] contraceptive device- Primary documented in this encounter [facility] note* Diagnosis Pre-op evaluation- Primary Preoperative examination, unspecified HOCM (hypertrophic obstructive cardiomyopathy) (HCC) Hypertrophic obstructive cardiomyopathy Jydtn-Wxcuolvmx-Odiyu (WPW) syndrome Anomalous atrioventricular excitation Paroxysmal atrial fibrillation (HCC) Atrial fibrillation ICD (implantable cardioverter-defibrillator) in place Automatic implantable cardiac defibrillator in situ Acute on chronic diastolic (congestive) heart failure (HCC) QUINTON (obstructive sleep apnea) Obstructive sleep apnea (adult) (pediatric) Body mass index 40.0-44.9, adult (HCC) Body Mass Index 40.0-44.9, adult Pre-diabetes Other abnormal glucose Pre-op evaluation- Primary Preoperative examination, unspecified Bdikb-Mjhwxgdyg-Efhoy (WPW) syndrome Anomalous atrioventricular excitation Paroxysmal atrial [...] Primary Paroxysmal atrial fibrillation (HCC) Atrial fibrillation USP (current) use of anticoagulants Long-term (current) use of anticoagulants [facility] Diagnosis Pre-op evaluation- Primary Preoperative examination, unspecified HOCM (hypertrophic obstructive cardiomyopathy) (HCC) Hypertrophic obstructive cardiomyopathy Igywj-Oqzqrnxzt-Kpghb (WPW) syndrome Anomalous atrioventricular excitation Paroxysmal atrial fibrillation (HCC) Atrial fibrillation ICD (implantable cardioverter-defibrillator) in place Automatic implantable cardiac defibrillator in situ Acute on chronic diastolic (congestive) heart failure (HCC) QUINTON (obstructive sleep apnea) Obstructive sleep apnea (adult) (pediatric) Body mass index 40.0-44.9, adult (HCC) Body Mass Index 40.0-44.9, adult Pre-diabetes Other abnormal glucose Pre-op evaluation- Primary Preoperative examination, unspecified Jpyld-Wuzsoiayw-Xkylz (WPW) syndrome Anomalous atrioventricular excitation Paroxysmal atrial [...] situ Paroxysmal atrial fibrillation (HCC) Atrial fibrillation Atvne-Zchgmagzm-Edxck (WPW) syndrome Anomalous atrioventricular excitation HOCM (hypertrophic obstructive cardiomyopathy) (HCC) Hypertrophic obstructive cardiomyopathy Acute on chronic diastolic (congestive) heart failure (HCC) QUINTON (obstructive sleep apnea) Obstructive sleep apnea (adult) (pediatric) S/P gastric bypass Bariatric surgery status Pre-diabetes Other abnormal glucose ICD (implantable cardioverter-defibrillator) in place- Primary Automatic implantable cardiac defibrillator in situ [facility] Diagnosis Pre-op evaluation- Primary Preoperative examination, unspecified HOCM (hypertrophic obstructive cardiomyopathy) (HCC) Hypertrophic obstructive cardiomyopathy Qckuz-Alnpgtvxl-Lazpg (WPW) syndrome Anomalous atrioventricular excitation Paroxysmal atrial fibrillation (HCC) Atrial fibrillation ICD (implantable cardioverter-defibrillator) in place Automatic implantable cardiac defibrillator in situ Acute on chronic diastolic (congestive) heart failure (HCC) QUINTON (obstructive sleep apnea) Obstructive sleep apnea (adult) (pediatric) Body mass index 40.0-44.9, adult (HCC) Body Mass Index 40.0-44.9, adult Pre-diabetes Other abnormal glucose Pre-op evaluation- Primary Preoperative examination, unspecified Vtstd-Twaytvbxf-Bbtkf (WPW) syndrome Anomalous atrioventricular excitation Paroxysmal atrial [...] situ Paroxysmal atrial fibrillation (HCC) Atrial fibrillation Ijdyn-Pbomxryki-Nzvui (WPW) syndrome Anomalous atrioventricular excitation HOCM (hypertrophic obstructive cardiomyopathy) (HCC) Hypertrophic obstructive cardiomyopathy Acute on chronic diastolic (congestive) heart failure (HCC) QUINTON (obstructive sleep apnea) Obstructive sleep apnea (adult) (pediatric) S/P gastric bypass Bariatric surgery status Pre-diabetes Other abnormal glucose Atrial fibrillation, unspecified type (HCC)- Primary Paroxysmal atrial fibrillation (HCC) Atrial fibrillation USP (current) use of anticoagulants Long-term (current) use of anticoagulants documented in this encounter [facility] note* Diagnosis Pre-op evaluation- Primary Preoperative examination, unspecified HOCM (hypertrophic obstructive cardiomyopathy) (HCC) Hypertrophic obstructive cardiomyopathy Pfsku-Arznrxfno-Jtcsn (WPW) syndrome Anomalous atrioventricular excitation Paroxysmal atrial fibrillation (HCC) Atrial fibrillation ICD (implantable cardioverter-defibrillator) in place Automatic implantable cardiac defibrillator in situ Acute on chronic diastolic (congestive) heart failure (HCC) QUINTON (obstructive sleep apnea) Obstructive sleep apnea (adult) (pediatric) Body mass index 40.0-44.9, adult (HCC) Body Mass Index 40.0-44.9, adult Pre-diabetes Other abnormal glucose Pre-op evaluation- Primary Preoperative examination, unspecified Eugvb-Etrgtrdjg-Mvfkm (WPW) syndrome Anomalous atrioventricular excitation Paroxysmal atrial [...] situ Paroxysmal atrial fibrillation (HCC) Atrial fibrillation Jdiaf-Lcgdbwauh-Oiehq (WPW) syndrome Anomalous atrioventricular excitation HOCM (hypertrophic [...] Bariatric surgery status [facility] Diagnosis Pre-op evaluation- Primary Preoperative examination, unspecified HOCM (hypertrophic obstructive cardiomyopathy) (HCC) Hypertrophic obstructive cardiomyopathy Ulvyh-Rgqmovacx-Ughzu (WPW) syndrome Anomalous atrioventricular excitation Paroxysmal atrial fibrillation (HCC) Atrial fibrillation ICD (implantable cardioverter-defibrillator) in place Automatic implantable cardiac defibrillator in situ Acute on chronic diastolic (congestive) heart failure (HCC) QUINTON (obstructive sleep apnea) Obstructive sleep apnea (adult) (pediatric) Body mass index 40.0-44.9, adult (HCC) Body Mass Index 40.0-44.9, adult Pre-diabetes Other abnormal glucose Pre-op evaluation- Primary Preoperative examination, unspecified Nxfpe-Khabaxeup-Jzwmq (WPW) syndrome Anomalous atrioventricular excitation Paroxysmal atrial [...] situ Paroxysmal atrial fibrillation (HCC) Atrial fibrillation Mdrhb-Skmtbqxdk-Pqscr (WPW) syndrome Anomalous atrioventricular excitation HOCM (hypertrophic obstructive cardiomyopathy) (HCC) Hypertrophic obstructive cardiomyopathy Acute on chronic diastolic (congestive) heart failure (HCC) QUINTON (obstructive sleep apnea) Obstructive sleep apnea (adult) (pediatric) S/P gastric bypass Bariatric surgery status Pre-diabetes Other abnormal glucose Atrial fibrillation, persistent (HCC)- Primary Atrial fibrillation documented in this encounter [facility]* Diagnosis Pre-op evaluation- Primary Preoperative examination, unspecified HOCM (hypertrophic obstructive cardiomyopathy) (HCC) Hypertrophic obstructive cardiomyopathy Byatj-Mzrtwtjtc-Buznf (WPW) syndrome Anomalous atrioventricular excitation Paroxysmal atrial fibrillation (HCC) Atrial fibrillation ICD (implantable cardioverter-defibrillator) in place Automatic implantable cardiac defibrillator in situ Acute on chronic diastolic (congestive) heart failure (HCC) QUINTON (obstructive sleep apnea) Obstructive sleep apnea (adult) (pediatric) Body mass index 40.0-44.9, adult (HCC) Body Mass Index 40.0-44.9, adult Pre-diabetes Other abnormal glucose Pre-op evaluation- Primary Preoperative examination, unspecified Zmxgl-Rlrsknfgp-Lkvhz (WPW) syndrome Anomalous atrioventricular excitation Paroxysmal atrial [...] situ Paroxysmal atrial fibrillation (HCC) Atrial fibrillation Rfqfs-Mgxujlwgo-Xklnj (WPW) syndrome Anomalous atrioventricular excitation HOCM (hypertrophic [...] use of anticoagulants [facility] Diagnosis Pre-op evaluation- Primary Preoperative examination, unspecified HOCM (hypertrophic obstructive cardiomyopathy) (HCC) Hypertrophic obstructive cardiomyopathy Vvygs-Tjbtelyzs-Ikheb (WPW) syndrome Anomalous atrioventricular excitation Paroxysmal atrial fibrillation (HCC) Atrial fibrillation ICD (implantable cardioverter-defibrillator) in place Automatic implantable cardiac defibrillator in situ Acute on chronic diastolic (congestive) heart failure (HCC) QUINTON (obstructive sleep apnea) Obstructive sleep apnea (adult) (pediatric) Body mass index 40.0-44.9, adult (HCC) Body Mass Index 40.0-44.9, adult Pre-diabetes Other abnormal glucose Pre-op evaluation- Primary Preoperative examination, unspecified Kktyd-Uelyvhvtw-Uydzg (WPW) syndrome Anomalous atrioventricular excitation Paroxysmal atrial [...] situ Paroxysmal atrial fibrillation (HCC) Atrial fibrillation Iqula-Sbndpwaoc-Vfirm (WPW) syndrome Anomalous atrioventricular excitation HOCM (hypertrophic obstructive cardiomyopathy) (HCC) Hypertrophic obstructive cardiomyopathy Acute on chronic diastolic (congestive) heart failure (HCC) QUINTON (obstructive sleep apnea) Obstructive sleep apnea (adult) (pediatric) S/P gastric bypass Bariatric surgery status Pre-diabetes Other abnormal glucose Atrial fibrillation, persistent (HCC) Atrial fibrillation [facility] Diagnosis Pre-op evaluation- Primary Preoperative examination, unspecified HOCM (hypertrophic obstructive cardiomyopathy) (HCC) Hypertrophic obstructive cardiomyopathy Wtxib-Vshrewqrb-Ukmtg (WPW) syndrome Anomalous atrioventricular excitation Paroxysmal atrial fibrillation (HCC) Atrial fibrillation ICD (implantable cardioverter-defibrillator) in place Automatic implantable cardiac defibrillator in situ Acute on chronic diastolic (congestive) heart failure (HCC) QUINTON (obstructive sleep apnea) Obstructive sleep apnea (adult) (pediatric) Body mass index 40.0-44.9, adult (HCC) Body Mass Index 40.0-44.9, adult Pre-diabetes Other abnormal glucose Pre-op evaluation- Primary Preoperative examination, unspecified Mzafi-Ikvciltem-Lgrjc (WPW) syndrome Anomalous atrioventricular excitation Paroxysmal atrial [...] situ Paroxysmal atrial fibrillation (HCC) Atrial fibrillation Uyllj-Nchkyedih-Gjhtl (WPW) syndrome Anomalous atrioventricular excitation HOCM (hypertrophic [...] use of anticoagulants [facility] Pre-op evaluation- Primary Preoperative examination, unspecified HOCM (hypertrophic obstructive cardiomyopathy) (HCC) Hypertrophic obstructive cardiomyopathy Ouhmn-Tubzyhmnf-Irxzh (WPW) syndrome Anomalous atrioventricular excitation Paroxysmal atrial fibrillation (HCC) Atrial fibrillation ICD (implantable cardioverter-defibrillator) in place Automatic implantable cardiac defibrillator in situ Acute on chronic diastolic (congestive) heart failure (HCC) QUINTON (obstructive sleep apnea) Obstructive sleep apnea (adult) (pediatric) Body mass index 40.0-44.9, adult (HCC) Body Mass Index 40.0-44.9, adult Pre-diabetes Other abnormal glucose Pre-op evaluation- Primary Preoperative examination, unspecified Suxho-Liapoqamn-Poqal (WPW) syndrome Anomalous atrioventricular excitation Paroxysmal atrial [...] situ Paroxysmal atrial fibrillation (HCC) Atrial fibrillation Miqme-Jtujaurgu-Ysplj (WPW) syndrome Anomalous atrioventricular excitation HOCM (hypertrophic [...] (hypertrophic obstructive cardiomyopathy) (HCC) Hypertrophic obstructive cardiomyopathy Ksghb-Qzgjszkij-Xsblw (WPW) syndrome Anomalous atrioventricular excitation [facility] Pre-op evaluation- Primary Preoperative examination, unspecified HOCM (hypertrophic obstructive cardiomyopathy) (HCC) Hypertrophic obstructive cardiomyopathy Jztyh-Raxxpqija-Zjvbg (WPW) syndrome Anomalous atrioventricular excitation Paroxysmal atrial fibrillation (HCC) Atrial fibrillation ICD (implantable cardioverter-defibrillator) in place Automatic implantable cardiac defibrillator in situ Acute on chronic diastolic (congestive) heart failure (HCC) QUINTON (obstructive sleep apnea) Obstructive sleep apnea (adult) (pediatric) Body mass index 40.0-44.9, adult (HCC) Body Mass Index 40.0-44.9, adult Pre-diabetes Other abnormal glucose Pre-op evaluation- Primary Preoperative examination, unspecified Hiwjw-Gbenoisnq-Bbcin (WPW) syndrome Anomalous atrioventricular excitation Paroxysmal atrial [...] situ Paroxysmal atrial fibrillation (HCC) Atrial fibrillation Uayme-Bfjfuomjl-Wmtau (WPW) syndrome Anomalous atrioventricular excitation HOCM (hypertrophic [...] use of anticoagulants [facility] Additional Instructions Continue your normal medications specifically her cardiac medications. Continue your Eliquis. Follow-up with your primary care provider and/or your tele rn if not improving. Return if worse.[facility] Work Phone: Hospital Discharge instructions Additional Instructions Follow-up with your tele rn as needed. Please continue current cardiac medications. Increase p.o. fluids to maintain hydration.[facility] Work Phone: Hospital Discharge instructions Additional Instructions Atrial fibrillation back to normal sinus rhythm. Continue home medications. Follow-up with your tele rn at [facility]. Return if any worsening symptoms.[facility] Work Phone: Hospital Discharge instructions Additional Instructions Plenty of fluids and rest. Do not take your blood pressure medication the metoprolol if your blood pressure is not running higher than 110. Follow-up with your doctor to ensure you are improving. Return if you are feeling worse.[facility] Work Phone: Hospital Discharge instructions Additional Instructions You have multiple large stones in your gallbladder, you are having biliary colic. You need to follow-up with a surgeon outpatient to have this taken care of. Please return for worsening uncontrolled abdominal pain, fever chills nausea vomitingWSt. [facility] Work Phone: Hospital Discharge instructions Additional Instructions Please go back on your previous metoprolol dose as this seemed to prevent you from going into A-fib with RVR and was recommended by your tele rn. You may take that normal dose this morning when you return home. If you have worsening symptoms or any further concerns please [facility] Reason for referral (narrative)* Outpatient Procedure (Routine) - Pending Review Specialty Diagnoses / Procedures Referred By Contac t Referred To Contact [facility] [place] Diagnoses Ventricular tachyarrhythmia (HCC) Paroxysmal atrial fibrillation (HCC) Procedures ECG COMPLETE ECG ROUTINE ECG W/LEAST 12 LDS W/I&R Card Eps Main [address] [place] [address] [facility] [place] [address] Referral ID Status Reason Start Date Expiration Date Visits Requested Visits Authorized [id number] Pending Review Auto-Generat ed Referral 01/13/2022 01/13/2023 1 1 [facility] for referral (narrative)* Outpatient Procedure (Routine) - Pending Review Specialty Diagnoses / Procedures Referred By Contac t Referred To Contact [facility] [place] Diagnoses HOCM (hypertrophic obstructive cardiomyopathy) (HCC) Procedures ECHO ECHO TTHRC R-T 2D W/WOM-MODE COMPL SPEC&[place] [address] [place] [id number] [facility] [place] [id number] Referral ID Status Reason Start Date Expiration Date Visits Requested Visits Authorized [id number] Pending Review Auto-Generat ed Referral 2 07/17/2023 1 1 * Outpatient Procedure (Routine) - Pending Review Specialty Diagnoses / Procedures Referred By Contac t Referred To Contact [facility] [place] Diagnoses HOCM (hypertrophic obstructive cardiomyopathy) (HCC) Procedures ECG COMPLETE ECG ROUTINE ECG W/LEAST 12 LDS W/I&R Jayjay Ortiz MD [address] [place] [address] [facility] [address] [address] Referral ID Status Reason Start Date Expiration Date Visits Requested Visits Authorized [id number] Pending Review Auto-Generat ed Referral 2 07/17/2023 1 1 [facility] for referral (narrative)* Outpatient Procedure (Routine) - Pending Review Specialty Diagnoses / Procedures Referred By Contac t Referred To [facility] Diagnoses HOCM (hypertrophic obstructive cardiomyopathy) (HCC) Procedures ECG COMPLETE ECG ROUTINE ECG W/LEAST 12 [facility] W/I&R Jayjay Ortiz MD [address] [place] [address] [facility] [address] [address] Referral ID Status Reason Start Date Expiration Date Visits Requested Visits Authorized [id number] Pending Review Auto-Generat ed Referral 10/22/2022 10/22/2023 1 1 [facility] for referral (narrative)* Diagnostic Procedure Only (Routine) - Closed Specialty Diagnoses / Procedures Referred By Contac t Referred To Contact [facility] Diagnoses Encounter for screening mammogram for breast cancer Procedures WERO SCREENING SCREENING MAMMOGRAPHY BI 2-VIEW BREAST INC CAD Kylah Palma PA-C [address] [place] [address] [facility] [address] [place] [phone] Referral ID Status Reason Start Date Expiration Date V isits Requested Visits Authorized [id number] Closed Auto-Generate d Referral 11/27/2021 12/27/2022 1 1 [facility] for referral (narrative)* Diagnostic Procedure Only (Routine) - Closed Specialty Diagnoses / Procedures Referred By Contac t Referred To Contact [facility] Diagnoses Class 3 obesity with alveolar hypoventilation, serious comorbidity, 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.9 in adult (HCC) Procedures US ABD RT UPPER QUADRANT US ABDOMINAL REAL TIME W/IMAGE LIMITED Siobhan Sellers APRN.CNP [address] [place] [address] [facility] [place] [address] Referral ID Status Reason Start Date Expiration Date V isits Requested Visits Authorized [id number] Closed Auto-Generate d Referral 09/18/2022 10/18/2023 1 1 [facility] for referral (narrative)* Diagnostic Procedure Only (Routine) - Closed Specialty Diagnoses / Procedures Referred By Contac t Referred To Contact [facility] Diagnoses Liver nodule Procedures US ABD RT UPPER QUADRANT US ABDOMINAL REAL TIME W/IMAGE LIMITED Meredith Avila PA-C [address] [place] [address] [id number] Referral ID Status Reason Start Date Expiration Date V isits Requested Visits Authorized [id number] Closed Auto-Generate d Referral 12/10/2022 01/02/2024 1 1 [facility] for referral (narrative)* Diagnostic Procedure Only (Urgent) - Closed Specialty Diagnoses / Procedures Referred By Contac t Referred To Contact [facility] Diagnoses Lumbar radiculopathy Procedures XR HIP GENERAL 3V PELV/AP/LAT LEFT RADEX HIP UNILATERAL WITH PELVIS 2-3 VIEWS Natalya Ramos PA-C [address] [place] [address] [place] [address] Referral ID Status Reason Start Date Expiration Date V isits Requested Visits Authorized [id number] Closed Auto-Generate d Referral 09/11/2023 10/10/2024 1 1 * Diagnostic Procedure Only (Urgent) - Closed Specialty Diagnoses / Procedures Referred By Contac t Referred To Contact [facility] Diagnoses Lumbar radiculopathy Procedures XR LUMBAR GENERAL 3V AP/LAT/L5-S1 RADEX SPINE LUMBOSACRAL 2/3 VIEWS Natalya Ramos PA-C [address] [place] [address] [place] [address] Referral ID Status Reason Start Date Expiration Date V isits Requested Visits Authorized [id number] Closed Auto-Generate d Referral 09/11/2023 10/10/2024 1 1 [facility] for referral (narrative)* Outpatient Procedure (Routine) - Pending Review Specialty Diagnoses / Procedures Referred By Contac t Referred To Contact [facility] [place] Diagnoses Atrial fibrillation, unspecified type (HCC) Procedures ECG COMPLETE ECG ROUTINE ECG W/LEAST 12 LDS W/I&R Oneyda Recinos MD [address] [place] [id number] [facility] [place] [id number] Referral ID Status Reason Start Date Expiration Date Visits Requested Visits Authorized [id number] Pending Review Auto-Generat ed Referral 03/15/2024 03/15/2025 1 1 [facility] for referral (narrative)* Diagnostic Procedure Only (Urgent) - Closed Specialty Diagnoses / Procedures Referred By Contac t Referred To Contact [facility] Diagnoses Lumbar radiculopathy Procedures XR HIP GENERAL 3V PELV/AP/LAT LEFT RADEX HIP UNILATERAL WITH PELVIS 2-3 VIEWS Natalya Ramos PA-C [address] [place] [address] [place] [address] Referral ID Status Reason Start Date Expiration Date V isits Requested Visits Authorized [id number] Closed Auto-Generate d Referral 09/11/2023 10/10/2024 1 1 * Diagnostic Procedure Only (Urgent) - Closed Specialty Diagnoses / Procedures Referred By Contac t Referred To Contact [facility] Diagnoses Lumbar radiculopathy Procedures XR LUMBAR GENERAL 3V AP/LAT/L5-S1 RADEX SPINE LUMBOSACRAL 2/3 VIEWS Natalya Ramos PA-C [address] [place] [address] [place] [id number] Referral ID Status Reason Start Date Expiration Date V isits Requested Visits Authorized [id number] Closed Auto-Generate d Referral 09/11/2023 10/10/2024 1 1 [facility] Outpatient Procedure (Routine) - Authorized Specialty Diagnoses / Procedures Referred By Contac t Referred To Contact [facility] Diagnoses Encounter for IUD removal Procedures REMOVE INTRAUTERINE DEVICE REMOVE INTRAUTERINE DEVICE Alec Blair APRN.CNP [address] [place] [address] [facility] [address] [place] [id number] Referral ID Status Reason Start Date Expiration Date Visits Requested Visits Authorized [id number] Authorized Auto-Generat ed Referral 4 08/25/2025 1 1 * Outpatient Procedure (Routine) - Authorized Specialty Diagnoses / Procedures Referred By Contac t Referred To Contact [facility] [facility] Diagnoses Encounter for IUD insertion Procedures INSERT INTRAUTERINE DEVICE LEVONORGESTREL IU 52MG 5 YR INSERT INTRAUTERINE DEVICE Alec Blair APRN.CNP [address] [place] [address] [facility] [address] [place] [address] Referral ID Status Reason Start Date Expiration Date Visits Requested Visits Authorized [id number] Authorized Auto-Generat ed Referral 4 08/25/2025 1 1 * Diagnostic Procedure Only (Routine) - Authorized Specialty Diagnoses / Procedures Referred By Contac t Referred To Contact [facility] Diagnoses Encounter for screening mammogram for breast cancer Procedures WERO SCREENING W HAYLEE SCREENING DIGITAL BREAST TOMOSYNTHESIS BI SCREENING MAMMOGRAPHY BI 2-VIEW BREAST INC Alec Martinez APRN.CNP [address] [place] [address] [facility] [address] [place] [address] Referral ID Status Reason Start Date Expiration Date Visits Requested Visits Authorized [id number] Authorized Auto-Generat ed Referral 09/24/2025 1 1 [facility] for referral (narrative)* Outpatient Procedure (Routine) - Closed Specialty Diagnoses / Procedures Referred By Contac t Referred To Contact [facility] Diagnoses Pacemaker reprogramming/check Procedures CARDIAC IMPLANTABLE DEVICE CHECK Self [facility] [address] [place] [address] Referral ID Status Reason Start Date Expiration Date V isits Requested Visits Authorized [id number] Closed Auto-Generate d Referral 09/07/2024 10/04/2024 1 1 * Outpatient Procedure (Routine) - Closed Specialty Diagnoses / Procedures [facility] To [facility] Diagnoses Pacemaker reprogramming/check Procedures CARDIAC IMPLANTABLE DEVICE CHECK Self [facility] [address] [place] [address] Referral ID Status Reason Start Date Expiration Date V isits Requested Visits Authorized [id number] Closed Auto-Generate d Referral 09/07/2024 10/04/2024 1 1 [facility] for referral (narrative)* Outpatient Procedure (Routine) - New Request Specialty Diagnoses / Procedures Referred By Contac t Referred To [facility] Diagnoses Atrial fibrillation, unspecified type (HCC) HOCM (hypertrophic obstructive cardiomyopathy) (HCC) Procedures ECG COMPLETE ECG ROUTINE ECG W/LEAST 12 LDS W/I&R Oneyda Recinos MD [address] [facility] [facility] [place] [address] [address] Referral ID Status Reason Start Date Expiration Date Visits Requested Visits Authorized [id number] New Request Auto-Generat ed Referral 09/12/2024 09/12/2025 1 1 * Transition of Care (Routine) - Ref Not Required Specialty Diagnoses / Procedures Referred By Contac t Referred To Contact [facility] [place] Procedures CARDIOVASCULAR MEDICINE OP FOLLOW UP APPT ORDER Oneyda Recinos MD [address] [place] [address] [address] Referral ID Status Reason Start Date Expiration Date Visits Requested Visits Authorized [id number] Ref Not Required PCP Requested Referral 09/12/2025 12/11/2025 1 1 [facility]No reason for referral information availableWSt. [facility] Work Phone: Reason for visit Narrative* Diagnostic Procedure Only (Routine) - Closed Specialty Diagnoses / Procedures Referred By Contac t Referred To Contact [facility] Diagnoses Encounter for screening mammogram for breast cancer Procedures WERO SCREENING SCREENING MAMMOGRAPHY BI 2-VIEW BREAST INC CAD Kylah Palma PA-C [address] [place] [address] [facility] [address] [place] [address] Referral ID Status Reason Start Date Expiration Date V isits Requested Visits Authorized [id number] Closed Auto-Generate d Referral 11/27/2021 12/27/2022 1 1 [facility] for visit Narrative* Diagnostic Procedure Only (Routine) - Closed Specialty Diagnoses / Procedures Referred By Contac t Referred To Contact [facility] Diagnoses Abnormal mammogram Procedures WERO DIAGNOSTIC LEFT DIAGNOSTIC MAMMOGRAPHY COMPUTER-AIDED DETCJ Ellen Ba MD [address] [place] [address] [facility] [address] [place] [address] Referral ID Status Reason Start Date Expiration Date V isits Requested Visits Authorized [id number] Closed Auto-Generate d Referral 10/02/2023 10/31/2024 1 1 [facility] for visit Narrative* Diagnostic Procedure Only (Routine) - Closed Specialty Diagnoses / Procedures Referred By Darling t Referred To Contact [facility] Diagnoses Abnormal mammogram Procedures US BREAST LTD LEFT US BREAST UNI REAL TIME WITH IMAGE LIMITED Ellen Jeter MD [address] [place] [address] [facility] [address] [place] [phone] Referral ID Status Reason Start Date Expiration Date V isits Requested Visits Authorized [id number] Closed Auto-Generate d Referral 10/02/2023 10/31/2024 1 1 [facility] for visit Narrative* Diagnostic Procedure Only (Urgent) - Closed Specialty Diagnoses / Procedures Referred By Darling babin Referred To Contact [facility] Diagnoses Lumbar radiculopathy Procedures XR HIP GENERAL 3V PELV/AP/LAT LEFT RADEX HIP UNILATERAL WITH PELVIS 2-3 VIEWS Natalya Ramos, PA-C [address] [place] [address] [place] [id number] Referral ID Status Reason Start Date Expiration Date V isits Requested Visits Authorized [id number] Closed Auto-Generate d Referral 09/11/2023 10/10/2024 1 1 [facility] for visit Narrative* Outpatient Procedure (Routine) - Closed Specialty Diagnoses / Procedures Referred By Darling t Referred To [facility] Diagnoses Pacemaker reprogramming/check Procedures CARDIAC IMPLANTABLE DEVICE CHECK Self [facility] [address] [place] [address] Referral ID Status Reason Start Date Expiration Date V isits Requested Visits Authorized [id number] Closed Auto-Generate d Referral 09/07/2024 10/04/2024 1 1 [facility] for visit Narrative* Diagnostic Procedure Only (Routine) - Closed Specialty Diagnoses / Procedures Referred By Darling t Referred To Contact [facility] Diagnoses Encounter for screening mammogram for breast cancer Procedures WERO SCREENING W HAYLEE SCREENING DIGITAL BREAST TOMOSYNTHESIS BI SCREENING MAMMOGRAPHY BI 2-VIEW BREAST INC Alec Martinez, CONTENT ANALYST.WATER RESOURCE PROJECT MANAGER [address] [place] [address] [facility] [address] [place] [phone] Referral ID Status Reason Start Date Expiration Date V isits Requested Visits Authorized [id number] Closed Auto-Generate d Referral 08/25/2024 09/24/2025 1 1 [facility] for visit Narrative* Outpatient Procedure (Routine) - Closed Specialty Diagnoses / Procedures Referred By Contbrian t Referred To Contact [facility] Diagnoses Marginal ulcer S/P gastric bypass Procedures EGD DIAGNOSTIC ESOPHAGOGASTRODUODENOSC OPY TRANSORAL [place] [address] [place] [address] Phone: tel: fax: [facility] [address] [place] [address] Referral ID Status Reason Start Date Expiration Date V isits Requested Visits Authorized [id number] Closed Auto-Generate d Referral 02/02/2025 10/04/2025 1 1 [facility] for visit Narrative* Outpatient Procedure (Routine) - Closed Specialty Diagnoses / Procedures Referred By Darling babin Referred To [facility] Diagnoses Atrial fibrillation, persistent (HCC) Procedures ECG COMPLETE ECG ROUTINE ECG W/LEAST 12 LDS W/I&[place] [address] [place] [address] Phone: tel: fax: [facility] [address] [place] [address] Referral ID Status Reason Start Date Expiration Date V isits Requested Visits Authorized [id number] Closed Auto-Generat ed Referral Patient Cleared - Admin/Chairm an/Director advise to proceed or did not respond 04/18/2025 10/04/2025 1 1 [facility] Advance Directives No Advanced Directives Records FoundDocuments on File Type Date Recorded Patient Occ Therapist Expl anation Advance Directive(s) 04/19/2021 3:47 PM Advance Directive(s) 08/22/2020 3:39 PM Advance Directive(s) 12/06/2019 6:45 PM Advance Directive(s) 11/17/2019 11:47 AM Documents on File Type Date Recorded Patient Occ Therapist Expl anation Advance Directive(s) 04/19/2021 3:47 PM Advance Directive(s) 08/22/2020 3:39 PM Advance Directive(s) 12/06/2019 6:45 PM Advance Directive(s) 11/17/2019 11:47 AM Advance Directive Response Recorded Date/ Time Living Will No March 22, 2022 4:06pm Power of Be[employer]attle [employer] Worker No March 22 4:06pm Advance Directive Response Recorded Date/ Time Living Will No June 26, 2022 8:43pm Power of Be[employer] Cattle [employer] Worker No June 8:43pm Advance Directive Response Recorded Date/ Time Living Will No September 12 4:45pm Power of Be[employer]attle [employer] Worker No September 12, 2022 4:45pm Advance Directive Response Recorded Date/ Time Living Will No October 26 4:08am Power of Be[employer]attle [employer] Worker No October 26, 2022 4:08am Advance Directive Response Recorded Date/ Time Living Will No March 07, 2023 9 :17pm Power of Beef Cattle [employer] Worker No March 07, 2023 9:17pm Advance Directive Response Recorded Date/ Time Living Will No May 03, 2023 3:38pm Power of Be[employer] Cattle Farm Worker No May 03 3:38pm Advance Directive Response Recorded Date/ Time Living Will No January 18, 2024 4:45am Power of Be[employer]attle [employer] Worker No January 17 4:45am Advance Directive Response Recorded Date/ Time Do you have a Healthcare Power of Beef Cattle Farm Worker? No February 08, 2025 7:50pm Chief Complaint [...] COVID TREATMENT REFERRAL COVID TREATMENT REFERRAL Radha [place], PRAFUL.WATER RESOURCE PROJECT MANAGER [address] [place] [address] Referral ID Status Reason Start Date Expiration Date Visits Requested Visits Authorized [id number] Pending Review Auto-Generat ed Referral 06/12/2022 06/12/2023 1 1 Specialty Diagnoses / Procedures Referred By Contac t Referred To Contact Diagnoses Abnormal ultrasound Procedures CONSULT TO HEPATOLOGY OFFICE/OUTPATIENT [facility] 60-74 MINUTES Siobhan Sellers, CONTENT ANALYST.WATER RESOURCE PROJECT MANAGER [address] [place] [address] Referral ID Status Reason Start Date Expiration Date Visits Requested Visits Authorized [id number] Authorized PCP Requested Referral 10/25/2022 10/25/2023 1 1 Specialty Diagnoses / Procedures Referred By Contac t Referred To Contact Diagnoses QUINTON (obstructive sleep apnea) Procedures CONSULT TO SLEEP MEDICINE - ADULT OFFICE/OUTPATIENT [facility] 60-74 MINUTES Siobhan Sellers, CONTENT ANALYST.WATER RESOURCE PROJECT MANAGER [address] [place] [address] Referral ID Status Reason Start Date Expiration Date Visits Requested Visits Authorized [id number] Authorized PCP Requested Referral 10/25/2022 10/25/2023 1 1 Specialty Diagnoses / Procedures Referred By Contac t Referred To Contact Tri Hammond MD [address] [place] [address] Referral ID Status Reason Start Date Expiration Date V isits Requested Visits Authorized [id number] Pending Review 1 1 Referral ID Status Reason Start Date Expiration Date V isits Requested Visits Authorized [id number] Pending Review 1 1 Specialty Diagnoses / Procedures Referred By Contac t Referred To Contact Diagnoses Class 3 severe obesity due to excess calories with serious comorbidity 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.9 in adult (HCC) Hypertrophic obstructive cardiomyopathy (HOCM) (HCC) Pre-op examination Procedures REFER TO PACC - PRE ANESTHESIA CONSULTATION CLINIC OFFICE/OUTPATIENT [facility] 60-74 MINUTES Esperanza Mercer MD [address] [place] [address] Referral ID Status Reason Start Date Expiration Date Visits Requested Visits Authorized [id number] Authorized PCP Requested Referral 01/08/2023 01/08/2024 1 1 Specialty Diagnoses / Procedures Referred By Contac t Referred To Contact Diagnoses Cholelithiasis with choledocholithiasis S/P gastric bypass Hypertrophic obstructive cardiomyopathy (HCC) Procedures VIRTUAL CONSULT TO PACC Esperanza Mercer MD [address] [place] [address] Referral ID Status Reason Start Date Expiration Date Visits Requested Visits Authorized [id number] Ref Not Required PCP Requested Referral 05/07/2023 08/05/2023 1 1 Specialty Diagnoses / Procedures Referred By Contac t Referred To Contact Cee Flowers MD [address] [place] [address] Referral ID Status Reason Start Date Expiration Date V isits Requested Visits Authorized [id number] Authorized 1 1 Specialty Diagnoses / Procedures Referred By Contac t Referred To [facility] Procedures CARDIOVASCULAR MEDICINE OP FOLLOW UP APPT ORDER Oneyda Recinos MD [address] [place] [address] [facility] [address] [place] [address] Referral ID Status Reason Start Date Expiration Date Visits Requested Visits Authorized [id number] Ref Not Required PCP Requested Referral 06/29/2024 12/27/2024 1 1 Specialty Diagnoses / Procedures Referred By Contac t Referred To Contact Gynecology Diagnoses Screening for cervical cancer Procedures CONSULT TO GYNECOLOGY OFFICE/[facility]IENT [facility] 60 MINUTES Yissel Marcial APRN.[employer] [address] [place] [address] Referral ID Status Reason Start Date Expiration Date Visits Requested Visits Authorized [id number] Authorized PCP Requested Referral Auto-Generate d Referral 4 07/14/2025 1 1 Summary Purpose Family History [...] or prosecute any alcohol or drug abuse patient.[facility] the event this information is protected by the Federal Confidentiality of Alcohol and Drug Abuse Patient Records regulations: The Federal rules restrict any use of the information to criminally investigate or prosecute any alcohol or drug abuse patient.[facility] the event this information is protected by the Federal Confidentiality of Alcohol and Drug Abuse Patient Records regulations: The Federal rules restrict any use of the information to criminally investigate or prosecute any alcohol or drug abuse patient.[facility] the event this information is protected by the Federal Confidentiality of Alcohol and Drug Abuse Patient Records regulations: The Federal rules restrict any use of the information to criminally investigate or prosecute any alcohol or drug abuse patient.[facility] the event this information is protected by the Federal Confidentiality of Alcohol and Drug Abuse Patient Records regulations: The Federal rules restrict any use of the information to criminally investigate or prosecute any alcohol or drug abuse patient.[facility] the event this information is protected by the Federal Confidentiality of Alcohol and Drug Abuse Patient Records regulations: The Federal rules restrict any use of the information to criminally investigate or prosecute any alcohol or drug abuse patient.[facility] the event this information is protected by the Federal Confidentiality of Alcohol and Drug Abuse Patient Records regulations: The Federal rules restrict any use of the information to criminally investigate or prosecute any alcohol or drug abuse patient.[facility] Hospital[facility] the event this information is protected by the Federal Confidentiality of Alcohol and Drug Abuse Patient Records regulations: The Federal rules restrict any use of the information to criminally investigate or prosecute any alcohol or drug abuse patient.[facility] Hospital[facility] the event this information is protected by the Federal Confidentiality of Alcohol and Drug Abuse Patient Records regulations: The Federal rules restrict any use of the information to criminally investigate or prosecute any alcohol or drug abuse patient.[facility] Hospital[facility] the event this information is protected by the Federal Confidentiality of Alcohol and Drug Abuse Patient Records regulations: The Federal rules restrict any use of the information to criminally investigate or prosecute any alcohol or drug abuse patient.[facility] Hospital[facility] the event this information is protected by the Federal Confidentiality of Alcohol and Drug Abuse Patient Records regulations: The Federal rules restrict any use of the information to criminally investigate or prosecute any alcohol or drug abuse patient.[facility] HospitalIn the event this information is protected by the Federal Confidentiality of Alcohol and Drug Abuse Patient Records regulations: The Federal rules restrict any use of the information to criminally investigate or prosecute any alcohol or drug abuse patient.[facility] HospitalIn the event this information is protected by the Federal Confidentiality of Alcohol and Drug Abuse Patient Records regulations: The Federal rules restrict any use of the information to criminally investigate or prosecute any alcohol or drug abuse patient.[facility] HospitalIn the event this information is protected by the Federal Confidentiality of Alcohol and Drug Abuse Patient Records regulations: The Federal rules restrict any use of the information to criminally investigate or prosecute any alcohol or drug abuse patient.[facility] HospitalIn the event this information is protected by the Federal Confidentiality of Alcohol and Drug Abuse Patient Records regulations: The Federal rules restrict any use of the information to criminally investigate or prosecute any alcohol or drug abuse patient.[facility] HospitalIn the event this information is protected by the Federal Confidentiality of Alcohol and Drug Abuse Patient Records regulations: The Federal rules restrict any use of the information to criminally investigate or prosecute any alcohol or drug abuse patient.[facility] Hospital[facility] the event this information is protected by the Federal Confidentiality of Alcohol and Drug Abuse Patient Records regulations: The Federal rules restrict any use of the information to criminally investigate or prosecute any alcohol or drug abuse patient.[facility] HospitalIn the event this information is protected by the Federal Confidentiality of Alcohol and Drug Abuse Patient Records regulations: The Federal rules restrict any use of the information to criminally investigate or prosecute any alcohol or drug abuse patient.[facility] HospitalIn the event this information is protected by the Federal Confidentiality of Alcohol and Drug Abuse Patient Records regulations: The Federal rules restrict any use of the information to criminally investigate or prosecute any alcohol or drug abuse patient.[facility] HospitalIn the event this information is protected by the Federal Confidentiality of Alcohol and Drug Abuse Patient Records regulations: The Federal rules restrict any use of the information to criminally investigate or prosecute any alcohol or drug abuse patient.[facility] HospitalIn the event this information is protected by the Federal Confidentiality of Alcohol and Drug Abuse Patient Records regulations: The Federal rules restrict any use of the information to criminally investigate or prosecute any alcohol or drug abuse patient.[facility] HospitalIn the event this information is protected by the Federal Confidentiality of Alcohol and Drug Abuse Patient Records regulations: The Federal rules restrict any use of the information to criminally investigate or prosecute any alcohol or drug abuse patient.[facility] HospitalIn the event this information is protected by the Federal Confidentiality of Alcohol and Drug Abuse Patient Records regulations: The Federal rules restrict any use of the information to criminally investigate or prosecute any alcohol or drug abuse patient.[facility] HospitalIn the event this information is protected by the Federal Confidentiality of Alcohol and Drug Abuse Patient Records regulations: The Federal rules restrict any use of the information to criminally investigate or prosecute any alcohol or drug abuse patient.[facility] HospitalIn the event this information is protected by the Federal Confidentiality of Alcohol and Drug Abuse Patient Records regulations: The Federal rules restrict any use of the information to criminally investigate or prosecute any alcohol or drug abuse patient.[facility] HospitalIn the event this information is protected by the Federal Confidentiality of Alcohol and Drug Abuse Patient Records regulations: The Federal rules restrict any use of the information to criminally investigate or prosecute any alcohol or drug abuse patient.[facility] HospitalIn the event this information is protected by the Federal Confidentiality of Alcohol and Drug Abuse Patient Records regulations: The Federal rules restrict any use of the information to criminally investigate or prosecute any alcohol or drug abuse patient.[facility] HospitalIn the event this information is protected by the Federal Confidentiality of Alcohol and Drug Abuse Patient Records regulations: The Federal rules restrict any use of the information to criminally investigate or prosecute any alcohol or drug abuse patient.[facility] HospitalIn the event this information is protected by the Federal Confidentiality of Alcohol and Drug Abuse Patient Records regulations: The Federal rules restrict any use of the information to criminally investigate or prosecute any alcohol or drug abuse patient.[facility] HospitalIn the event this information is protected by the Federal Confidentiality of Alcohol and Drug Abuse Patient Records regulations: The Federal rules restrict any use of the information to criminally investigate or prosecute any alcohol or drug abuse patient.[facility] HospitalIn the event this information is protected by the Federal Confidentiality of Alcohol and Drug Abuse Patient Records regulations: The Federal rules restrict any use of the information to criminally investigate or prosecute any alcohol or drug abuse patient.[facility] HospitalIn the event this information is protected by the Federal Confidentiality of Alcohol and Drug Abuse Patient Records regulations: The Federal rules restrict any use of the information to criminally investigate or prosecute any alcohol or drug abuse patient.[facility] HospitalIn the event this information is protected by the Federal Confidentiality of Alcohol and Drug Abuse Patient Records regulations: The Federal rules restrict any use of the information to criminally investigate or prosecute any alcohol or drug abuse patient.[facility] HospitalIn the event this information is protected by the Federal Confidentiality of Alcohol and Drug Abuse Patient Records regulations: The Federal rules restrict any use of the information to criminally investigate or prosecute any alcohol or drug abuse patient.[facility] HospitalIn the event this information is protected by the Federal Confidentiality of Alcohol and Drug Abuse Patient Records regulations: The Federal rules restrict any use of the information to criminally investigate or prosecute any alcohol or drug abuse patient.[facility] HospitalIn the event this information is protected by the Federal Confidentiality of Alcohol and Drug Abuse Patient Records regulations: The Federal rules restrict any use of the information to criminally investigate or prosecute any alcohol or drug abuse patient.[facility] HospitalIn the event this information is protected by the Federal Confidentiality of Alcohol and Drug Abuse Patient Records regulations: The Federal rules restrict any use of the information to criminally investigate or prosecute any alcohol or drug abuse patient.[facility] HospitalIn the event this information is protected by the Federal Confidentiality of Alcohol and Drug Abuse Patient Records regulations: The Federal rules restrict any use of the information to criminally investigate or prosecute any alcohol or drug abuse patient.[facility] HospitalIn the event this information is protected by the Federal Confidentiality of Alcohol and Drug Abuse Patient Records regulations: The Federal rules restrict any use of the information to criminally investigate or prosecute any alcohol or drug abuse patient.[facility] HospitalIn the event this information is protected by the Federal Confidentiality of Alcohol and Drug Abuse Patient Records regulations: The Federal rules restrict any use of the information to criminally investigate or prosecute any alcohol or drug abuse patient.[facility] HospitalIn the event this information is protected by the Federal Confidentiality of Alcohol and Drug Abuse Patient Records regulations: The Federal rules restrict any use of the information to criminally investigate or prosecute any alcohol or drug abuse patient.[facility] HospitalIn the event this information is protected by the Federal Confidentiality of Alcohol and Drug Abuse Patient Records regulations: The Federal rules restrict any use of the information to criminally investigate or prosecute any alcohol or drug abuse patient.[facility] HospitalIn the event this information is protected by the Federal Confidentiality of Alcohol and Drug Abuse Patient Records regulations: The Federal rules restrict any use of the information to criminally investigate or prosecute any alcohol or drug abuse patient.[facility] HospitalIn the event this information is protected by the Federal Confidentiality of Alcohol and Drug Abuse Patient Records regulations: The Federal rules restrict any use of the information to criminally investigate or prosecute any alcohol or drug abuse patient.[facility] HospitalIn the event this information is protected by the Federal Confidentiality of Alcohol and Drug Abuse Patient Records regulations: The Federal rules restrict any use of the information to criminally investigate or prosecute any alcohol or drug abuse patient.[facility] HospitalIn the event this information is protected by the Federal Confidentiality of Alcohol and Drug Abuse Patient Records regulations: The Federal rules restrict any use of the information to criminally investigate or prosecute any alcohol or drug abuse patient.[facility] HospitalIn the event this information is protected by the Federal Confidentiality of Alcohol and Drug Abuse Patient Records regulations: The Federal rules restrict any use of the information to criminally investigate or prosecute any alcohol or drug abuse patient.[facility] HospitalIn the event this information is protected by the Federal Confidentiality of Alcohol and Drug Abuse Patient Records regulations: The Federal rules restrict any use of the information to criminally investigate or prosecute any alcohol or drug abuse patient.[facility] HospitalIn the event this information is protected by the Federal Confidentiality of Alcohol and Drug Abuse Patient Records regulations: The Federal rules restrict any use of the information to criminally investigate or prosecute any alcohol or drug abuse patient.[facility] HospitalIn the event this information is protected by the Federal Confidentiality of Alcohol and Drug Abuse Patient Records regulations: The Federal rules restrict any use of the information to criminally investigate or prosecute any alcohol or drug abuse patient.[facility] HospitalIn the event this information is protected by the Federal Confidentiality of Alcohol and Drug Abuse Patient Records regulations: The Federal rules restrict any use of the information to criminally investigate or prosecute any alcohol or drug abuse patient.[facility] HospitalIn the event this information is protected by the Federal Confidentiality of Alcohol and Drug Abuse Patient Records regulations: The Federal rules restrict any use of the information to criminally investigate or prosecute any alcohol or drug abuse patient.[facility] HospitalIn the event this information is protected by the Federal Confidentiality of Alcohol and Drug Abuse Patient Records regulations: The Federal rules restrict any use of the information to criminally investigate or prosecute any alcohol or drug abuse patient.[facility] HospitalIn the event this information is protected by the Federal Confidentiality of Alcohol and Drug Abuse Patient Records regulations: The Federal rules restrict any use of the information to criminally investigate or prosecute any alcohol or drug abuse patient.[facility] HospitalIn the event this information is protected by the Federal Confidentiality of Alcohol and Drug Abuse Patient Records regulations: The Federal rules restrict any use of the information to criminally investigate or prosecute any alcohol or drug abuse patient.[facility] HospitalIn the event this information is protected by the Federal Confidentiality of Alcohol and Drug Abuse Patient Records regulations: The Federal rules restrict any use of the information to criminally investigate or prosecute any alcohol or drug abuse patient.[facility] HospitalIn the event this information is protected by the Federal Confidentiality of Alcohol and Drug Abuse Patient Records regulations: The Federal rules restrict any use of the information to criminally investigate or prosecute any alcohol or drug abuse patient.[facility] HospitalIn the event this information is protected by the Federal Confidentiality of Alcohol and Drug Abuse Patient Records regulations: The Federal rules restrict any use of the information to criminally investigate or prosecute any alcohol or drug abuse patient.[facility] HospitalIn the event this information is protected by the Federal Confidentiality of Alcohol and Drug Abuse Patient Records regulations: The Federal rules restrict any use of the information to criminally investigate or prosecute any alcohol or drug abuse patient.[facility] HospitalIn the event this information is protected by the Federal Confidentiality of Alcohol and Drug Abuse Patient Records regulations: The Federal rules restrict any use of the information to criminally investigate or prosecute any alcohol or drug abuse patient.[facility] HospitalIn the event this information is protected by the Federal Confidentiality of Alcohol and Drug Abuse Patient Records regulations: The Federal rules restrict any use of the information to criminally investigate or prosecute any alcohol or drug abuse patient.[facility] HospitalIn the event this information is protected by the Federal Confidentiality of Alcohol and Drug Abuse Patient Records regulations: The Federal rules restrict any use of the information to criminally investigate or prosecute any alcohol or drug abuse patient.[facility] HospitalIn the event this information is protected by the Federal Confidentiality of Alcohol and Drug Abuse Patient Records regulations: The Federal rules restrict any use of the information to criminally investigate or prosecute any alcohol or drug abuse patient.[facility] HospitalIn the event this information is protected by the Federal Confidentiality of Alcohol and Drug Abuse Patient Records regulations: The Federal rules restrict any use of the information to criminally investigate or prosecute any alcohol or drug abuse patient.[facility] HospitalIn the event this information is protected by the Federal Confidentiality of Alcohol and Drug Abuse Patient Records regulations: The Federal rules restrict any use of the information to criminally investigate or prosecute any alcohol or drug abuse patient.[facility] HospitalIn the event this information is protected by the Federal Confidentiality of Alcohol and Drug Abuse Patient Records regulations: The Federal rules restrict any use of the information to criminally investigate or prosecute any alcohol or drug abuse patient.[facility] HospitalIn the event this information is protected by the Federal Confidentiality of Alcohol and Drug Abuse Patient Records regulations: The Federal rules restrict any use of the information to criminally investigate or prosecute any alcohol or drug abuse patient.[facility] HospitalIn the event this information is protected by the Federal Confidentiality of Alcohol and Drug Abuse Patient Records regulations: The Federal rules restrict any use of the information to criminally investigate or prosecute any alcohol or drug abuse patient.[facility] HospitalIn the event this information is protected by the Federal Confidentiality of Alcohol and Drug Abuse Patient Records regulations: The Federal rules restrict any use of the information to criminally investigate or prosecute any alcohol or drug abuse patient.[facility] HospitalIn the event this information is protected by the Federal Confidentiality of Alcohol and Drug Abuse Patient Records regulations: The Federal rules restrict any use of the information to criminally investigate or prosecute any alcohol or drug abuse patient.[facility] HospitalIn the event this information is protected by the Federal Confidentiality of Alcohol and Drug Abuse Patient Records regulations: The Federal rules restrict any use of the information to criminally investigate or prosecute any alcohol or drug abuse patient.[facility] HospitalIn the event this information is protected by the Federal Confidentiality of Alcohol and Drug Abuse Patient Records regulations: The Federal rules restrict any use of the information to criminally investigate or prosecute any alcohol or drug abuse patient.[facility] HospitalIn the event this information is protected by the Federal Confidentiality of Alcohol and Drug Abuse Patient Records regulations: The Federal rules restrict any use of the information to criminally investigate or prosecute any alcohol or drug abuse patient.[facility] HospitalIn the event this information is protected by the Federal Confidentiality of Alcohol and Drug Abuse Patient Records regulations: The Federal rules restrict any use of the information to criminally investigate or prosecute any alcohol or drug abuse patient.[facility] HospitalIn the event this information is protected by the Federal Confidentiality of Alcohol and Drug Abuse Patient Records regulations: The Federal rules restrict any use of the information to criminally investigate or prosecute any alcohol or drug abuse patient.[facility] HospitalIn the event this information is protected by the Federal Confidentiality of Alcohol and Drug Abuse Patient Records regulations: The Federal rules restrict any use of the information to criminally investigate or prosecute any alcohol or drug abuse patient.[facility] HospitalIn the event this information is protected by the Federal Confidentiality of Alcohol and Drug Abuse Patient Records regulations: The Federal rules restrict any use of the information to criminally investigate or prosecute any alcohol or drug abuse patient.[facility] HospitalIn the event this information is protected by the Federal Confidentiality of Alcohol and Drug Abuse Patient Records regulations: The Federal rules restrict any use of the information to criminally investigate or prosecute any alcohol or drug abuse patient.[facility] HospitalIn the event this information is protected by the Federal Confidentiality of Alcohol and Drug Abuse Patient Records regulations: The Federal rules restrict any use of the information to criminally investigate or prosecute any alcohol or drug abuse patient.[facility] HospitalIn the event this information is protected by the Federal Confidentiality of Alcohol and Drug Abuse Patient Records regulations: The Federal rules restrict any use of the information to criminally investigate or prosecute any alcohol or drug abuse patient.[facility] HospitalIn the event this information is protected by the Federal Confidentiality of Alcohol and Drug Abuse Patient Records regulations: The Federal rules restrict any use of the information to criminally investigate or prosecute any alcohol or drug abuse patient.[facility] HospitalIn the event this information is protected by the Federal Confidentiality of Alcohol and Drug Abuse Patient Records regulations: The Federal rules restrict any use of the information to criminally investigate or prosecute any alcohol or drug abuse patient.[facility] HospitalIn the event this information is protected by the Federal Confidentiality of Alcohol and Drug Abuse Patient Records regulations: The Federal rules restrict any use of the information to criminally investigate or prosecute any alcohol or drug abuse patient.[facility] HospitalIn the event this information is protected by the Federal Confidentiality of Alcohol and Drug Abuse Patient Records regulations: The Federal rules restrict any use of the information to criminally investigate or prosecute any alcohol or drug abuse patient.[facility] HospitalIn the event this information is protected by the Federal Confidentiality of Alcohol and Drug Abuse Patient Records regulations: The Federal rules restrict any use of the information to criminally investigate or prosecute any alcohol or drug abuse patient.[facility] HospitalIn the event this information is protected by the Federal Confidentiality of Alcohol and Drug Abuse Patient Records regulations: The Federal rules restrict any use of the information to criminally investigate or prosecute any alcohol or drug abuse patient.[facility] HospitalIn the event this information is protected by the Federal Confidentiality of Alcohol and Drug Abuse Patient Records regulations: The Federal rules restrict any use of the information to criminally investigate or prosecute any alcohol or drug abuse patient.[facility] HospitalIn the event this information is protected by the Federal Confidentiality of Alcohol and Drug Abuse Patient Records regulations: The Federal rules restrict any use of the information to criminally investigate or prosecute any alcohol or drug abuse patient.[facility] HospitalIn the event this information is protected by the Federal Confidentiality of Alcohol and Drug Abuse Patient Records regulations: The Federal rules restrict any use of the information to criminally investigate or prosecute any alcohol or drug abuse patient.[facility] HospitalIn the event this information is protected by the Federal Confidentiality of Alcohol and Drug Abuse Patient Records regulations: The Federal rules restrict any use of the information to criminally investigate or prosecute any alcohol or drug abuse patient.[facility] HospitalIn the event this information is protected by the Federal Confidentiality of Alcohol and Drug Abuse Patient Records regulations: The Federal rules restrict any use of the information to criminally investigate or prosecute any alcohol or drug abuse patient.[facility] HospitalIn the event this information is protected by the Federal Confidentiality of Alcohol and Drug Abuse Patient Records regulations: The Federal rules restrict any use of the information to criminally investigate or prosecute any alcohol or drug abuse patient.[facility] HospitalIn the event this information is protected by the Federal Confidentiality of Alcohol and Drug Abuse Patient Records regulations: The Federal rules restrict any use of the information to criminally investigate or prosecute any alcohol or drug abuse patient.[facility] HospitalIn the event this information is protected by the Federal Confidentiality of Alcohol and Drug Abuse Patient Records regulations: The Federal rules restrict any use of the information to criminally investigate or prosecute any alcohol or drug abuse patient.[facility] HospitalIn the event this information is protected by the Federal Confidentiality of Alcohol and Drug Abuse Patient Records regulations: The Federal rules restrict any use of the information to criminally investigate or prosecute any alcohol or drug abuse patient.[facility] HospitalIn the event this information is protected by the Federal Confidentiality of Alcohol and Drug Abuse Patient Records regulations: The Federal rules restrict any use of the information to criminally investigate or prosecute any alcohol or drug abuse patient.[facility] HospitalIn the event this information is protected by the Federal Confidentiality of Alcohol and Drug Abuse Patient Records regulations: The Federal rules restrict any use of the information to criminally investigate or prosecute any alcohol or drug abuse patient.[facility] HospitalIn the event this information is protected by the Federal Confidentiality of Alcohol and Drug Abuse Patient Records regulations: The Federal rules restrict any use of the information to criminally investigate or prosecute any alcohol or drug abuse patient.[facility] HospitalIn the event this information is protected by the Federal Confidentiality of Alcohol and Drug Abuse Patient Records regulations: The Federal rules restrict any use of the information to criminally investigate or prosecute any alcohol or drug abuse patient.[facility] HospitalIn the event this information is protected by the Federal Confidentiality of Alcohol and Drug Abuse Patient Records regulations: The Federal rules restrict any use of the information to criminally investigate or prosecute any alcohol or drug abuse patient.[facility] HospitalIn the event this information is protected by the Federal Confidentiality of Alcohol and Drug Abuse Patient Records regulations: The Federal rules restrict any use of the information to criminally investigate or prosecute any alcohol or drug abuse patient.[facility] HospitalIn the event this information is protected by the Federal Confidentiality of Alcohol and Drug Abuse Patient Records regulations: The Federal rules restrict any use of the information to criminally investigate or prosecute any alcohol or drug abuse patient.[facility] HospitalIn the event this information is protected by the Federal Confidentiality of Alcohol and Drug Abuse Patient Records regulations: The Federal rules restrict any use of the information to criminally investigate or prosecute any alcohol or drug abuse patient.[facility] HospitalIn the event this information is protected by the Federal Confidentiality of Alcohol and Drug Abuse Patient Records regulations: The Federal rules restrict any use of the information to criminally investigate or prosecute any alcohol or drug abuse patient.[facility] HospitalIn the event this information is protected by the Federal Confidentiality of Alcohol and Drug Abuse Patient Records regulations: The Federal rules restrict any use of the information to criminally investigate or prosecute any alcohol or drug abuse patient.[facility] HospitalIn the event this information is protected by the Federal Confidentiality of Alcohol and Drug Abuse Patient Records regulations: The Federal rules restrict any use of the information to criminally investigate or prosecute any alcohol or drug abuse patient.[facility] HospitalIn the event this information is protected by the Federal Confidentiality of Alcohol and Drug Abuse Patient Records regulations: The Federal rules restrict any use of the information to criminally investigate or prosecute any alcohol or drug abuse patient.[facility] HospitalIn the event this information is protected by the Federal Confidentiality of Alcohol and Drug Abuse Patient Records regulations: The Federal rules restrict any use of the information to criminally investigate or prosecute any alcohol or drug abuse patient.[facility] HospitalIn the event this information is protected by the Federal Confidentiality of Alcohol and Drug Abuse Patient Records regulations: The Federal rules restrict any use of the information to criminally investigate or prosecute any alcohol or drug abuse patient.[facility] HospitalIn the event this information is protected by the Federal Confidentiality of Alcohol and Drug Abuse Patient Records regulations: The Federal rules restrict any use of the information to criminally investigate or prosecute any alcohol or drug abuse patient.[facility] HospitalIn the event this information is protected by the Federal Confidentiality of Alcohol and Drug Abuse Patient Records regulations: The Federal rules restrict any use of the information to criminally investigate or prosecute any alcohol or drug abuse patient.[facility] HospitalIn the event this information is protected by the Federal Confidentiality of Alcohol and Drug Abuse Patient Records regulations: The Federal rules restrict any use of the information to criminally investigate or prosecute any alcohol or drug abuse patient.[facility] HospitalIn the event this information is protected by the Federal Confidentiality of Alcohol and Drug Abuse Patient Records regulations: The Federal rules restrict any use of the information to criminally investigate or prosecute any alcohol or drug abuse patient.[facility] HospitalIn the event this information is protected by the Federal Confidentiality of Alcohol and Drug Abuse Patient Records regulations: The Federal rules restrict any use of the information to criminally investigate or prosecute any alcohol or drug abuse patient.[facility] HospitalIn the event this information is protected by the Federal Confidentiality of Alcohol and Drug Abuse Patient Records regulations: The Federal rules restrict any use of the information to criminally investigate or prosecute any alcohol or drug abuse patient.[facility] HospitalIn the event this information is protected by the Federal Confidentiality of Alcohol and Drug Abuse Patient Records regulations: The Federal rules restrict any use of the information to criminally investigate or prosecute any alcohol or drug abuse patient.[facility] HospitalIn the event this information is protected by the Federal Confidentiality of Alcohol and Drug Abuse Patient Records regulations: The Federal rules restrict any use of the information to criminally investigate or prosecute any alcohol or drug abuse patient.[facility] HospitalIn the event this information is protected by the Federal Confidentiality of Alcohol and Drug Abuse Patient Records regulations: The Federal rules restrict any use of the information to criminally investigate or prosecute any alcohol or drug abuse patient.[facility] HospitalIn the event this information is protected by the Federal Confidentiality of Alcohol and Drug Abuse Patient Records regulations: The Federal rules restrict any use of the information to criminally investigate or prosecute any alcohol or drug abuse patient.[facility] HospitalIn the event this information is protected by the Federal Confidentiality of Alcohol and Drug Abuse Patient Records regulations: The Federal rules restrict any use of the information to criminally investigate or prosecute any alcohol or drug abuse patient.[facility] HospitalIn the event this information is protected by the Federal Confidentiality of Alcohol and Drug Abuse Patient Records regulations: The Federal rules restrict any use of the information to criminally investigate or prosecute any alcohol or drug abuse patient.[facility] HospitalIn the event this information is protected by the Federal Confidentiality of Alcohol and Drug Abuse Patient Records regulations: The Federal rules restrict any use of the information to criminally investigate or prosecute any alcohol or drug abuse patient.[facility] HospitalIn the event this information is protected by the Federal Confidentiality of Alcohol and Drug Abuse Patient Records regulations: The Federal rules restrict any use of the information to criminally investigate or prosecute any alcohol or drug abuse patient.[facility] HospitalIn the event this information is protected by the Federal Confidentiality of Alcohol and Drug Abuse Patient Records regulations: The Federal rules restrict any use of the information to criminally investigate or prosecute any alcohol or drug abuse patient.[facility] HospitalIn the event this information is protected by the Federal Confidentiality of Alcohol and Drug Abuse Patient Records regulations: The Federal rules restrict any use of the information to criminally investigate or prosecute any alcohol or drug abuse patient.[facility]In the event this information is protected by the Federal Confidentiality of Alcohol and Drug Abuse Patient Records regulations: The Federal rules restrict any use of the information to criminally investigate or prosecute any alcohol or drug abuse patient.[facility] HospitalIn the event this information is protected by the Federal Confidentiality of Alcohol and Drug Abuse Patient Records regulations: The Federal rules restrict any use of the information to criminally investigate or prosecute any alcohol or drug abuse patient.[facility] HospitalIn the event this information is protected by the Federal Confidentiality of Alcohol and Drug Abuse Patient Records regulations: The Federal rules restrict any use of the information to criminally investigate or prosecute any alcohol or drug abuse patient.[facility] HospitalIn the event this information is protected by the Federal Confidentiality of Alcohol and Drug Abuse Patient Records regulations: The Federal rules restrict any use of the information to criminally investigate or prosecute any alcohol or drug abuse patient.[facility] HospitalIn the event this information is protected by the Federal Confidentiality of Alcohol and Drug Abuse Patient Records regulations: The Federal rules restrict any use of the information to criminally investigate or prosecute any alcohol or drug abuse patient.[facility] HospitalIn the event this information is protected by the Federal Confidentiality of Alcohol and Drug Abuse Patient Records regulations: The Federal rules restrict any use of the information to criminally investigate or prosecute any alcohol or drug abuse patient.[facility] HospitalIn the event this information is protected by the Federal Confidentiality of Alcohol and Drug Abuse Patient Records regulations: The Federal rules restrict any use of the information to criminally investigate or prosecute any alcohol or drug abuse patient.[facility] HospitalIn the event this information is protected by the Federal Confidentiality of Alcohol and Drug Abuse Patient Records regulations: The Federal rules restrict any use of the information to criminally investigate or prosecute any alcohol or drug abuse patient.[facility] HospitalIn the event this information is protected by the Federal Confidentiality of Alcohol and Drug Abuse Patient Records regulations: The Federal rules restrict any use of the information to criminally investigate or prosecute any alcohol or drug abuse patient.[facility] HospitalIn the event this information is protected by the Federal Confidentiality of Alcohol and Drug Abuse Patient Records regulations: The Federal rules restrict any use of the information to criminally investigate or prosecute any alcohol or drug abuse patient.[facility] HospitalIn the event this information is protected by the Federal Confidentiality of Alcohol and Drug Abuse Patient Records regulations: The Federal rules restrict any use of the information to criminally investigate or prosecute any alcohol or drug abuse patient.[facility] HospitalIn the event this information is protected by the Federal Confidentiality of Alcohol and Drug Abuse Patient Records regulations: The Federal rules restrict any use of the information to criminally investigate or prosecute any alcohol or drug abuse patient.[facility] HospitalIn the event this information is protected by the Federal Confidentiality of Alcohol and Drug Abuse Patient Records regulations: The Federal rules restrict any use of the information to criminally investigate or prosecute any alcohol or drug abuse patient.[facility] HospitalIn the event this information is protected by the Federal Confidentiality of Alcohol and Drug Abuse Patient Records regulations: The Federal rules restrict any use of the information to criminally investigate or prosecute any alcohol or drug abuse patient.[facility] HospitalIn the event this information is protected by the Federal Confidentiality of Alcohol and Drug Abuse Patient Records regulations: The Federal rules restrict any use of the information to criminally investigate or prosecute any alcohol or drug abuse patient.[facility] HospitalIn the event this information is protected by the Federal Confidentiality of Alcohol and Drug Abuse Patient Records regulations: The Federal rules restrict any use of the information to criminally investigate or prosecute any alcohol or drug abuse patient.[facility] HospitalIn the event this information is protected by the Federal Confidentiality of Alcohol and Drug Abuse Patient Records regulations: The Federal rules restrict any use of the information to criminally investigate or prosecute any alcohol or drug abuse patient.[facility] HospitalIn the event this information is protected by the Federal Confidentiality of Alcohol and Drug Abuse Patient Records regulations: The Federal rules restrict any use of the information to criminally investigate or prosecute any alcohol or drug abuse patient.[facility] HospitalIn the event this information is protected by the Federal Confidentiality of Alcohol and Drug Abuse Patient Records regulations: The Federal rules restrict any use of the information to criminally investigate or prosecute any alcohol or drug abuse patient.[facility] HospitalIn the event this information is protected by the Federal Confidentiality of Alcohol and Drug Abuse Patient Records regulations: The Federal rules restrict any use of the information to criminally investigate or prosecute any alcohol or drug abuse patient.[facility] HospitalIn the event this information is protected by the Federal Confidentiality of Alcohol and Drug Abuse Patient Records regulations: The Federal rules restrict any use of the information to criminally investigate or prosecute any alcohol or drug abuse patient.[facility] HospitalIn the event this information is protected by the Federal Confidentiality of Alcohol and Drug Abuse Patient Records regulations: The Federal rules restrict any use of the information to criminally investigate or prosecute any alcohol or drug abuse patient.[facility] HospitalIn the event this information is protected by the Federal Confidentiality of Alcohol and Drug Abuse Patient Records regulations: The Federal rules restrict any use of the information to criminally investigate or prosecute any alcohol or drug abuse patient.[facility] HospitalIn the event this information is protected by the Federal Confidentiality of Alcohol and Drug Abuse Patient Records regulations: The Federal rules restrict any use of the information to criminally investigate or prosecute any alcohol or drug abuse patient.[facility] HospitalIn the event this information is protected by the Federal Confidentiality of Alcohol and Drug Abuse Patient Records regulations: The Federal rules restrict any use of the information to criminally investigate or prosecute any alcohol or drug abuse patient.[facility] HospitalIn the event this information is protected by the Federal Confidentiality of Alcohol and Drug Abuse Patient Records regulations: The Federal rules restrict any use of the information to criminally investigate or prosecute any alcohol or drug abuse patient.[facility] HospitalIn the event this information is protected by the Federal Confidentiality of Alcohol and Drug Abuse Patient Records regulations: The Federal rules restrict any use of the information to criminally investigate or prosecute any alcohol or drug abuse patient.[facility] HospitalIn the event this information is protected by the Federal Confidentiality of Alcohol and Drug Abuse Patient Records regulations: The Federal rules restrict any use of the information to criminally investigate or prosecute any alcohol or drug abuse patient.[facility] HospitalIn the event this information is protected by the Federal Confidentiality of Alcohol and Drug Abuse Patient Records regulations: The Federal rules restrict any use of the information to criminally investigate or prosecute any alcohol or drug abuse patient.[facility] HospitalIn the event this information is protected by the Federal Confidentiality of Alcohol and Drug Abuse Patient Records regulations: The Federal rules restrict any use of the information to criminally investigate or prosecute any alcohol or drug abuse patient.[facility] HospitalIn the event this information is protected by the Federal Confidentiality of Alcohol and Drug Abuse Patient Records regulations: The Federal rules restrict any use of the information to criminally investigate or prosecute any alcohol or drug abuse patient.[facility] HospitalIn the event this information is protected by the Federal Confidentiality of Alcohol and Drug Abuse Patient Records regulations: The Federal rules restrict any use of the information to criminally investigate or prosecute any alcohol or drug abuse patient.[facility] HospitalIn the event this information is protected by the Federal Confidentiality of Alcohol and Drug Abuse Patient Records regulations: The Federal rules restrict any use of the information to criminally investigate or prosecute any alcohol or drug abuse patient.[facility] HospitalIn the event this information is protected by the Federal Confidentiality of Alcohol and Drug Abuse Patient Records regulations: The Federal rules restrict any use of the information to criminally investigate or prosecute any alcohol or drug abuse patient.[facility] HospitalIn the event this information is protected by the Federal Confidentiality of Alcohol and Drug Abuse Patient Records regulations: The Federal rules restrict any use of the information to criminally investigate or prosecute any alcohol or drug abuse patient.[facility] HospitalIn the event this information is protected by the Federal Confidentiality of Alcohol and Drug Abuse Patient Records regulations: The Federal rules restrict any use of the information to criminally investigate or prosecute any alcohol or drug abuse patient.[facility] HospitalIn the event this information is protected by the Federal Confidentiality of Alcohol and Drug Abuse Patient Records regulations: The Federal rules restrict any use of the information to criminally investigate or prosecute any alcohol or drug abuse patient.[facility] HospitalIn the event this information is protected by the Federal Confidentiality of Alcohol and Drug Abuse Patient Records regulations: The Federal rules restrict any use of the information to criminally investigate or prosecute any alcohol or drug abuse patient.[facility] HospitalIn the event this information is protected by the Federal Confidentiality of Alcohol and Drug Abuse Patient Records regulations: The Federal rules restrict any use of the information to criminally investigate or prosecute any alcohol or drug abuse patient.[facility] HospitalIn the event this information is protected by the Federal Confidentiality of Alcohol and Drug Abuse Patient Records regulations: The Federal rules restrict any use of the information to criminally investigate or prosecute any alcohol or drug abuse patient.[facility] HospitalIn the event this information is protected by the Federal Confidentiality of Alcohol and Drug Abuse Patient Records regulations: The Federal rules restrict any use of the information to criminally investigate or prosecute any alcohol or drug abuse patient.[facility] HospitalIn the event this information is protected by the Federal Confidentiality of Alcohol and Drug Abuse Patient Records regulations: The Federal rules restrict any use of the information to criminally investigate or prosecute any alcohol or drug abuse patient.[facility] HospitalIn the event this information is protected by the Federal Confidentiality of Alcohol and Drug Abuse Patient Records regulations: The Federal rules restrict any use of the information to criminally investigate or prosecute any alcohol or drug abuse patient.[facility] HospitalIn the event this information is protected by the Federal Confidentiality of Alcohol and Drug Abuse Patient Records regulations: The Federal rules restrict any use of the information to criminally investigate or prosecute any alcohol or drug abuse patient.[facility] HospitalIn the event this information is protected by the Federal Confidentiality of Alcohol and Drug Abuse Patient Records regulations: The Federal rules restrict any use of the information to criminally investigate or prosecute any alcohol or drug abuse patient.[facility] HospitalIn the event this information is protected by the Federal Confidentiality of Alcohol and Drug Abuse Patient Records regulations: The Federal rules restrict any use of the information to criminally investigate or prosecute any alcohol or drug abuse patient.[facility] HospitalIn the event this information is protected by the Federal Confidentiality of Alcohol and Drug Abuse Patient Records regulations: The Federal rules restrict any use of the information to criminally investigate or prosecute any alcohol or drug abuse patient.[facility] HospitalIn the event this information is protected by the Federal Confidentiality of Alcohol and Drug Abuse Patient Records regulations: The Federal rules restrict any use of the information to criminally investigate or prosecute any alcohol or drug abuse patient.[facility] HospitalIn the event this information is protected by the Federal Confidentiality of Alcohol and Drug Abuse Patient Records regulations: The Federal rules restrict any use of the information to criminally investigate or prosecute any alcohol or drug abuse patient.[facility] HospitalIn the event this information is protected by the Federal Confidentiality of Alcohol and Drug Abuse Patient Records regulations: The Federal rules restrict any use of the information to criminally investigate or prosecute any alcohol or drug abuse patient.[facility] HospitalIn the event this information is protected by the Federal Confidentiality of Alcohol and Drug Abuse Patient Records regulations: The Federal rules restrict any use of the information to criminally investigate or prosecute any alcohol or drug abuse patient.[facility] HospitalIn the event this information is protected by the Federal Confidentiality of Alcohol and Drug Abuse Patient Records regulations: The Federal rules restrict any use of the information to criminally investigate or prosecute any alcohol or drug abuse patient.[facility] HospitalIn the event this information is protected by the Federal Confidentiality of Alcohol and Drug Abuse Patient Records regulations: The Federal rules restrict any use of the information to criminally investigate or prosecute any alcohol or drug abuse patient.[facility] HospitalIn the event this information is protected by the Federal Confidentiality of Alcohol and Drug Abuse Patient Records regulations: The Federal rules restrict any use of the information to criminally investigate or prosecute any alcohol or drug abuse patient.[facility] HospitalIn the event this information is protected by the Federal Confidentiality of Alcohol and Drug Abuse Patient Records regulations: The Federal rules restrict any use of the information to criminally investigate or prosecute any alcohol or drug abuse patient.[facility] HospitalIn the event this information is protected by the Federal Confidentiality of Alcohol and Drug Abuse Patient Records regulations: The Federal rules restrict any use of the information to criminally investigate or prosecute any alcohol or drug abuse patient.[facility] HospitalIn the event this information is protected by the Federal Confidentiality of Alcohol and Drug Abuse Patient Records regulations: The Federal rules restrict any use of the information to criminally investigate or prosecute any alcohol or drug abuse patient.[facility] HospitalIn the event this information is protected by the Federal Confidentiality of Alcohol and Drug Abuse Patient Records regulations: The Federal rules restrict any use of the information to criminally investigate or prosecute any alcohol or drug abuse patient.[facility]In the event this information is protected by the Federal Confidentiality of Alcohol and Drug Abuse Patient Records regulations: The Federal rules restrict any use of the information to criminally investigate or prosecute any alcohol or drug abuse patient.[facility] HospitalIn the event this information is protected by the Federal Confidentiality of Alcohol and Drug Abuse Patient Records regulations: The Federal rules restrict any use of the information to criminally investigate or prosecute any alcohol or drug abuse patient.[facility] HospitalIn the event this information is protected by the Federal Confidentiality of Alcohol and Drug Abuse Patient Records regulations: The Federal rules restrict any use of the information to criminally investigate or prosecute any alcohol or drug abuse patient.[facility]In the event this information is protected by the Federal Confidentiality of Alcohol and Drug Abuse Patient Records regulations: The Federal rules restrict any use of the information to criminally investigate or prosecute any alcohol or drug abuse patient.[facility] HospitalIn the event this information is protected by the Federal Confidentiality of Alcohol and Drug Abuse Patient Records regulations: The Federal rules restrict any use of the information to criminally investigate or prosecute any alcohol or drug abuse patient.[facility]In the event this information is protected by the Federal Confidentiality of Alcohol and Drug Abuse Patient Records regulations: The Federal rules restrict any use of the information to criminally investigate or prosecute any alcohol or drug abuse patient.[facility] HospitalIn the event this information is protected by the Federal Confidentiality of Alcohol and Drug Abuse Patient Records regulations: The Federal rules restrict any use of the information to criminally investigate or prosecute any alcohol or drug abuse patient.[facility] HospitalIn the event this information is protected by the Federal Confidentiality of Alcohol and Drug Abuse Patient Records regulations: The Federal rules restrict any use of the information to criminally investigate or prosecute any alcohol or drug abuse patient.[facility]In the event this information is protected by the Federal Confidentiality of Alcohol and Drug Abuse Patient Records regulations: The Federal rules restrict any use of the information to criminally investigate or prosecute any alcohol or drug abuse patient.[facility]In the event this information is protected by the Federal Confidentiality of Alcohol and Drug Abuse Patient Records regulations: The Federal rules restrict any use of the information to criminally investigate or prosecute any alcohol or drug abuse patient.[facility] HospitalIn the event this information is protected by the Federal Confidentiality of Alcohol and Drug Abuse Patient Records regulations: The Federal rules restrict any use of the information to criminally investigate or prosecute any alcohol or drug abuse patient.[facility]In the event this information is protected by the Federal Confidentiality of Alcohol and Drug Abuse Patient Records regulations: The Federal rules restrict any use of the information to criminally investigate or prosecute any alcohol or drug abuse patient.[facility]In the event this information is protected by the Federal Confidentiality of Alcohol and Drug Abuse Patient Records regulations: The Federal rules restrict any use of the information to criminally investigate or prosecute any alcohol or drug abuse patient.[facility]In the event this information is protected by the Federal Confidentiality of Alcohol and Drug Abuse Patient Records regulations: The Federal rules restrict any use of the information to criminally investigate or prosecute any alcohol or drug abuse patient.[facility]In the event this information is protected by the Federal Confidentiality of Alcohol and Drug Abuse Patient Records regulations: The Federal rules restrict any use of the information to criminally investigate or prosecute any alcohol or drug abuse patient.[facility]In the event this information is protected by the Federal Confidentiality of Alcohol and Drug Abuse Patient Records regulations: The Federal rules restrict any use of the information to criminally investigate or prosecute any alcohol or drug abuse patient.[facility]In the event this information is protected by the Federal Confidentiality of Alcohol and Drug Abuse Patient Records regulations: The Federal rules restrict any use of the information to criminally investigate or prosecute any alcohol or drug abuse patient.[facility]In the event this information is protected by the Federal Confidentiality of Alcohol and Drug Abuse Patient Records regulations: The Federal rules restrict any use of the information to criminally investigate or prosecute any alcohol or drug abuse patient.[facility]In the event this information is protected by the Federal Confidentiality of Alcohol and Drug Abuse Patient Records regulations: The Federal rules restrict any use of the information to criminally investigate or prosecute any alcohol or drug abuse patient.[facility]In the event this information is protected by the Federal Confidentiality of Alcohol and Drug Abuse Patient Records regulations: The Federal rules restrict any use of the information to criminally investigate or prosecute any alcohol or drug abuse patient.[facility]In the event this information is protected by the Federal Confidentiality of Alcohol and Drug Abuse Patient Records regulations: The Federal rules restrict any use of the information to criminally investigate or prosecute any alcohol or drug abuse patient.[facility]In the event this information is protected by the Federal Confidentiality of Alcohol and Drug Abuse Patient Records regulations: The Federal rules restrict any use of the information to criminally investigate or prosecute any alcohol or drug abuse patient.[facility]In the event this information is protected by the Federal Confidentiality of Alcohol and Drug Abuse Patient Records regulations: The Federal rules restrict any use of the information to criminally investigate or prosecute any alcohol or drug abuse patient.[facility]In the event this information is protected by the Federal Confidentiality of Alcohol and Drug Abuse Patient Records regulations: The Federal rules restrict any use of the information to criminally investigate or prosecute any alcohol or drug abuse patient.[facility]In the event this information is protected by the Federal Confidentiality of Alcohol and Drug Abuse Patient Records regulations: The Federal rules restrict any use of the information to criminally investigate or prosecute any alcohol or drug abuse patient.[facility]In the event this information is protected by the Federal Confidentiality of Alcohol and Drug Abuse Patient Records regulations: The Federal rules restrict any use of the information to criminally investigate or prosecute any alcohol or drug abuse patient.[facility] HospitalIn the event this information is protected by the Federal Confidentiality of Alcohol and Drug Abuse Patient Records regulations: The Federal rules restrict any use of the information to criminally investigate or prosecute any alcohol or drug abuse patient.[facility] HospitalIn the event this information is protected by the Federal Confidentiality of Alcohol and Drug Abuse Patient Records regulations: The Federal rules restrict any use of the information to criminally investigate or prosecute any alcohol or drug abuse patient.[facility] HospitalIn the event this information is protected by the Federal Confidentiality of Alcohol and Drug Abuse Patient Records regulations: The Federal rules restrict any use of the information to criminally investigate or prosecute any alcohol or drug abuse patient.[facility] HospitalIn the event this information is protected by the Federal Confidentiality of Alcohol and Drug Abuse Patient Records regulations: The Federal rules restrict any use of the information to criminally investigate or prosecute any alcohol or drug abuse patient.[facility] HospitalIn the event this information is protected by the Federal Confidentiality of Alcohol and Drug Abuse Patient Records regulations: The Federal rules restrict any use of the information to criminally investigate or prosecute any alcohol or drug abuse patient.[facility] HospitalIn the event this information is protected by the Federal Confidentiality of Alcohol and Drug Abuse Patient Records regulations: The Federal rules restrict any use of the information to criminally investigate or prosecute any alcohol or drug abuse patient.[facility] HospitalIn the event this information is protected by the Federal Confidentiality of Alcohol and Drug Abuse Patient Records regulations: The Federal rules restrict any use of the information to criminally investigate or prosecute any alcohol or drug abuse patient.[facility] HospitalIn the event this information is protected by the Federal Confidentiality of Alcohol and Drug Abuse Patient Records regulations: The Federal rules restrict any use of the information to criminally investigate or prosecute any alcohol or drug abuse patient.[facility] HospitalIn the event this information is protected by the Federal Confidentiality of Alcohol and Drug Abuse Patient Records regulations: The Federal rules restrict any use of the information to criminally investigate or prosecute any alcohol or drug abuse patient.[facility] HospitalIn the event this information is protected by the Federal Confidentiality of Alcohol and Drug Abuse Patient Records regulations: The Federal rules restrict any use of the information to criminally investigate or prosecute any alcohol or drug abuse patient.[facility] HospitalIn the event this information is protected by the Federal Confidentiality of Alcohol and Drug Abuse Patient Records regulations: The Federal rules restrict any use of the information to criminally investigate or prosecute any alcohol or drug abuse patient.[facility] Reason for Visit (unrecogniz ed section [...] CONSULT TO SLEEP MEDICINE - ADULT OFFICE/OUTPATIENT NEW HIGH MDM 60-74 MINUTES Siobhan Sellers, CONTENT ANALYST.WATER RESOURCE PROJECT MANAGER [address] [place] [address] Referral ID Status Reason Start Date Expiration Date V isits Requested Visits Authorized [id number] Closed PCP Requested Referral 10/25/2022 10/25/2023 1 [...] US Specialty Diagnoses / Procedures Referred By Contac t Referred To Contact US IMAGING Diagnoses Class 3 obesity with alveolar hypoventilation, serious comorbidity, 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.9 in adult (HCC) Procedures US ABD RT UPPER QUADRANT US ABDOMINAL REAL TIME W/IMAGE LIMITED Siobhan Sellers, CONTENT ANALYST.WATER RESOURCE PROJECT MANAGER [address] [place] [address] Us Imaging [place] [address] Referral ID Status Reason Start Date Expiration Date V isits Requested Visits Authorized [id number] Closed Auto-Generate d Referral 09/18/2022 10/18/2023 1 1 Specialty Diagnoses / Procedures Referred By Contac t Referred To Contact US IMAGING Diagnoses Liver nodule Procedures US ABD RT UPPER QUADRANT US ABDOMINAL REAL TIME W/IMAGE LIMITED Meredith Avila PA-C [address] [place] [address] [place] [address] Referral ID Status Reason Start Date Expiration Date V isits Requested Visits Authorized [id number] Closed Auto-Generate d Referral 12/10/2022 01/02/2024 1 [...] Transition Of Care 03/07/2024 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 [facility] 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 Pool Reason Comments Rosacea Keratitis Reason Comments [...] Exam Specialty Diagnoses / Procedures Referred By Contac t Referred To Contact Gynecology Diagnoses Screening for cervical cancer Procedures CONSULT TO GYNECOLOGY OFFICE/OUTPATIENT NEW HIGH MDM 60 MINUTES Yissel Marcial, CONTENT ANALYST.WATER RESOURCE PROJECT MANAGER [address] [place] [address] Referral ID Status Reason Start Date Expiration Date V isits Requested Visits Authorized [id number] Closed PCP Requested Referral Auto-Generated Referral 07/21/2024 [...] Referred By Darling babin Referred To Contact [facility] Diagnoses Encounter for IUD insertion Procedures INSERT INTRAUTERINE DEVICE LEVONORGESTREL IU 52MG 5 YR INSERT INTRAUTERINE DEVICE Alec Blair APRN.WATER RESOURCE PROJECT MANAGER [address] [place] [address] Phone: tel: fax: [facility] [address] [place] [address] Referral ID Status Reason Start Date Expiration Date V isits Requested Visits Authorized [id number] Closed Auto-Generate d Referral 08/25/2024 08/25/2025 1 1 Reason Comments 6 Month Exam Reason Comments Preparations For Surgery Preoperative Co umadin instructions Reason Comments IUD Reason Comments Preparations For Surgery PACC Reason Comments Patient Update Reason Onset Date Comments Refill Request 03/14/2025 Sotalol-PENDING EKG Reason Onset Date Comments Refill Request 05/19/2025 Care Teams (unrecognized sec tion and content) Employee Benefits Coordinator Relationship Specialty Start Date End Date Kylah Palma PA-C [address] [place], [place] [address] PCP - General Family Practice 02/08/14 Oneyda Recinos MD [address] [place] [address] Primary Staff Physician Cardiology 04/29/21 Employee Benefits Coordinator Relationship Specialty Start Date End Date Kylah Palma PA-C [address] [place], [place] [address] PCP - General Family Practice 02/08/14 Oneyda Recinos MD [address] [place] [address] Primary Staff Physician Cardiology 04/29/21 Employee Benefits Coordinator Relationship Specialty Start Date End Date Kylah Palma PA-C [address] [place], [place] [id number] PCP - General Family Practice 02/08/14 Oneyda Recinos MD [address] [facility] [place] [address] Primary Staff Physician Cardiology 04/29/21 Employee Benefits Coordinator Relationship Specialty Start Date End Date Kylah Palma PA-C [address] [place] [address] PCP - General Family Practice 02/08/14 Oneyda Recinos MD [address] [place] [address] Primary Staff Physician Cardiology 04/29/21 Employee Benefits Coordinator Relationship Specialty Start Date End Date Kylah Palma PA-C [address] [place] [address] PCP - General Family Practice 02/08/14 Oneyda Recinos MD [address] [place] [address] Primary Staff Physician Cardiology 04/29/21 Employee Benefits Coordinator Relationship Specialty Start Date End Date Kylah Palma PA-C [address] [place] [address] PCP - General Family Practice 02/08/14 Oneyda Recinos MD [address] [place] [address] Primary Staff Physician Cardiology 04/29/21 Employee Benefits Coordinator Relationship Specialty Start Date End Date Kylah Palma PA-C [address] [place] [address] PCP - General Family Practice 02/08/14 Oneyda Recinos MD [address] [place] [address] Primary Staff Physician Cardiology 04/29/21 Employee Benefits Coordinator Relationship Specialty Start Date End Date Kylah Palma PA-C [address] [place] [address] PCP - General Family Practice 02/08/14 Oneyda Recinos MD [address] [place] [address] Primary Staff Physician Cardiology 04/29/21 Employee Benefits Coordinator Relationship Specialty Start Date End Date Kylah Palma PA-C [address] [place] [address] PCP - General Family Practice 02/08/14 Oneyda Recinos MD [address] [place] [address] Primary Staff Physician Cardiology 04/29/21 Employee Benefits Coordinator Relationship Specialty Start Date End Date Kylah Palma PA-C [address] [place] [address] PCP - General Family Practice 02/08/14 Oneyda Recinos MD [address] [place] [address] Primary Staff Physician Cardiology 04/29/21 Employee Benefits Coordinator Relationship Specialty Start Date End Date Kylah Palma PA-C [address] [place] [address] PCP - General Family Practice 02/08/14 [address]da Recinos [address] [facility] [place] [address] Primary Staff Physician Cardiology 04/29/21 Employee Benefits Coordinator Relationship Specialty Start Date End Date Kylah Palma PA-C [address] [place] [address] PCP - General Family Medicine 02/08/14 [address] [facility] [facility] [place] [address] Primary Staff Physician Cardiology 04/29/21 Employee Benefits Coordinator Relationship Specialty Start Date End Date Kylah Palma PA-C [address] [facility] [place] [address] PCP - General Family Medicine 02/08/14 Oneyda Recinos MD [address] [place] [address] Primary Staff Physician Cardiology 04/29/21 Employee Benefits Coordinator Relationship Specialty Start Date End Date Kylah Palma PA-C [address] [facility] [place] [address] PCP - General Family Medicine 02/08/14 Oneyda Recinos MD [address] [place] [address] Primary Staff Physician Cardiology 04/29/21 Employee Benefits Coordinator Relationship Specialty Start Date End Date Kylah Palma PA-C [address] [place] [address] PCP - General Family Medicine 02/08/14 Oneyda Recinos MD [address] [place] [address] Primary Staff Physician Cardiology 04/29/21 Employee Benefits Coordinator Relationship Specialty Start Date End Date Kylah Palma PA-C [address] [place] [address] PCP - General Family Medicine 02/08/14 Oneyda Recinos MD [address] [place] [address] Primary Staff Physician Cardiology 04/29/21 Employee Benefits Coordinator Relationship Specialty Start Date End Date Kylah Palma PA-C [address] [facility] [place] [address] PCP - General Family Medicine 02/08/14 Oneyda Recinos [address] [facility] [place] [place] [address] Primary Staff Physician Cardiology 04/29/21 Employee Benefits Coordinator Relationship Specialty Start Date End Date Kylah Palma PA-C [address] [facility] [place] [address] PCP - General Family Medicine 02/08/14 Oneyda Recinos MD [address] [place] [address] Primary Staff Physician Cardiology 04/29/21 Employee Benefits Coordinator Relationship Specialty Start Date End Date Kylah Palma PA-C [address] [place] [address] PCP - General Family Medicine 02/08/14 Oneyda Recinos MD [address] [place] [address] Primary Staff Physician Cardiology 04/29/21 Employee Benefits Coordinator Relationship Specialty Start Date End Date Kylah Palma PA-C [address] [place] [address] PCP - General Family Medicine 02/08/14 Oneyda Recinos MD [address] [place] [address] Primary Staff Physician Cardiology 04/29/21 Employee Benefits Coordinator Relationship Specialty Start Date End Date Kylah Palma PA-C [address] [place] [address] PCP - General Family Medicine 02/08/[address] [facility] [place] [address] Primary Staff Physician Cardiology 04/29/21 Employee Benefits Coordinator Relationship Specialty Start Date End Date Kylah Palma PA-C [address] [place] [address] PCP - General Family Medicine 02/08/14 Oneyda Recinos MD [address] [place] [address] Primary Staff Physician Cardiology 04/29/21 [...] Dr. Jerome Brower DO Emergency Provider Active Employee Benefits Coordinator Relationship Specialty Start Date End Date Kylah Palma PA-C [address] [place] [address] PCP - General Family Medicine 02/08/14 Oneyda Recinos MD [address] [place] [address] Primary Staff Physician Cardiology 04/29/21 Employee Benefits Coordinator Relationship Specialty Start Date End Date Kylah Palma PA-C [address] [place] [address] PCP - General Family Medicine 02/08/14 Oneyda Recinos MD [address] [place] [address] Primary Staff Physician Cardiology 04/29/21 Employee Benefits Coordinator Relationship Specialty Start Date End Date Kylah Palma PA-C [address] [place] [address] PCP - General Family Medicine 02/08/14 Oneyda Recinos MD [address] [place] [address] Primary Staff Physician Cardiology 04/29/21 Employee Benefits Coordinator Relationship Specialty Start Date End Date Kylah Palma PA-C [address] [place] [address] PCP - General Family Medicine 02/08/14 Oneyda Recinos MD [address] [place] [address] Primary Staff Physician Cardiology 04/29/21 Jayjay Ortiz MD [address] [place] [address] Primary Staff Physician Cardiology 11/25/22 Employee Benefits Coordinator Relationship Specialty Start Date End Date Kylah Palma PA-C [address] [place] [address] PCP - General Family Medicine 02/08/14 Oneyda Recinos MD [address] [place] [address] Primary Staff Physician Cardiology 04/29/21 Jayjay Ortiz MD [address] [place] [address] Primary Staff Physician Cardiology 11/25/22 Employee Benefits Coordinator Relationship Specialty Start Date End Date Kylah Palma PA-C [address] [place] [address] PCP - General Family Medicine 02/08/14 Oneyda Recinos MD [address] [place] [address] Primary Staff Physician Cardiology 04/29/21 Jayjay Ortiz MD [address] [place] [address] Primary Staff Physician Cardiology 11/25/22 Employee Benefits Coordinator Relationship Specialty Start Date End Date Kylah Palma PA-C [address] [place] [address] PCP - General Family Medicine 02/08/14 [address] Rec[address] [facility] [place] [address] Primary Staff Physician Cardiology 04/29/21 Jayjay Ortiz MD [address] [facility] [place] [address] Primary Staff Physician Cardiology 11/25/22 Employee Benefits Coordinator Relationship Specialty Start Date End Date Kylah Palma PA-C [address] [place] [address] PCP - General Family Medicine 02/08/14 Oneyda Recinos MD [address] [place] [address] Primary Staff Physician Cardiology 04/29/21 Jayjay Ortiz MD [address] [place] [address] Primary Staff Physician Cardiology 11/25/22 Employee Benefits Coordinator Relationship Specialty Start Date End Date Kylah Palma PA-C [address] [place] [address] PCP - General Family Medicine 02/08/14 Oneyda Recinos MD [address] [place] [address] Primary Staff Physician Cardiology 04/29/21 Jayjay Ortiz MD [address] [place] [address] Primary Staff Physician Cardiology 11/25/22 Employee Benefits Coordinator Relationship Specialty Start Date End Date Kylah Palma PA-C [address] [place] [address] PCP - General Family Medicine 02/08/14 Oneyda Recinos MD [address] [place] [address] Primary Staff Physician Cardiology 04/29/21 Jayjay Ortiz MD [address] [place] [address] Primary Staff Physician Cardiology 11/25/22 Employee Benefits Coordinator Relationship Specialty Start Date End Date Kylah Palma PA-C [address] [place] [address] PCP - General Family Medicine 02/08/14 Oneyda Recinos MD [address] [place] [address] Primary Staff Physician Cardiology 04/29/21 Jayjay Ortiz MD [address] [place] [address] Primary Staff Physician Cardiology 11/25/22 Employee Benefits Coordinator Relationship Specialty Start Date End Date Kylah Palma PA-C [address] [place] [address] PCP - General Family Medicine 02/08/14 Oneyda Recinos MD [address] [place] [address] Primary Staff Physician Cardiology 04/29/21 Jayjay Ortiz MD [address] [place] [address] Primary Staff Physician Cardiology 11/25/22 Employee Benefits Coordinator Relationship Specialty Start Date End Date Kylah Palma PA-C [address] [place] [address] PCP - General Family Medicine 02/08/14 Oneyda Recinos MD [address] [place] [address] Primary Staff Physician Cardiology 04/29/21 Jayjay Ortiz MD [address] [place] [address] Primary Staff Physician Cardiology 11/25/22 Employee Benefits Coordinator Relationship Specialty Start Date End Date Kylah Palma PA-C [address] [place] [address] PCP - General Family Medicine 02/08/14 Oneyda Recinos MD [address] [place] [address] Primary Staff Physician Cardiology 04/29/21 Jayjay Ortiz MD [address] [place] [address] Primary Staff Physician Cardiology 11/25/22 Employee Benefits Coordinator Relationship Specialty Start Date End Date Kylah Palma PA-C [address] [place] [address] PCP - General Family Medicine 02/08/14 [address] [facility] [place] [address] Primary Staff Physician Cardiology 04/29/21 Jayjay Ortiz MD [address] [place] [address] Primary Staff Physician Cardiology 11/25/22 Employee Benefits Coordinator Relationship Specialty Start Date End Date Kylah Palma PA-C [address] [place] [address] PCP - General Family Medicine 02/08/14 Oneyda Recinos MD [address] [place] [address] Primary Staff Physician Cardiology 04/29/21 Jayjay Ortiz MD [address] [place] [address] Primary Staff Physician Cardiology 11/25/22 Employee Benefits Coordinator Relationship Specialty Start Date End Date Kylah Palma PA-C [address] [place] [address] PCP - General Family Medicine 02/08/14 Oneyda Recinos MD [address] [place] [address] Primary Staff Physician Cardiology 04/29/21 Jayjay Ortiz MD [address] [place] [address] Primary Staff Physician Cardiology 11/25/22 Team Status: Inactive Member Role Status HALEY Boyle Primary Care Provider Active Dr. Luis Vaughn MD Emergency Provider Active Employee Benefits Coordinator Relationship Specialty Start Date End Date Kylah Palma PA-C [address] [place] [address] PCP - General Family Medicine 02/08/14 Oneyda Recinos MD [address] [place] [address] Primary Staff Physician Cardiology 04/29/21 Jayjay Ortiz MD [address] [place] [address] Primary Staff Physician Cardiology 11/25/22 Employee Benefits Coordinator Relationship Specialty Start Date End Date Kylah Palma PA-C [address] [place] [address] PCP - General Family Medicine 02/08/14 Oneyda Recinos MD [address] [place] [address] Primary Staff Physician Cardiology 04/29/21 [address] MD [address] [facility] [place] [address] Primary Staff Physician Cardiology 11/25/22 Employee Benefits Coordinator Relationship Specialty Start Date End Date Kylah Palma PA-C [address] [place] [address] PCP - General Family Medicine 02/08/14 Oneyda Recinos MD [address] [place] [address] Primary Staff Physician Cardiology 04/29/21 Jayjay Ortiz MD [address] [place] [address] Primary Staff Physician Cardiology 11/25/22 Employee Benefits Coordinator Relationship Specialty Start Date End Date Kylah Palma PA-C [address] [place] [address] PCP - General Family Medicine 02/08/14 Oneyda Rec[address] MD [address] [facility] [place] [address] Primary Staff Physician Cardiology 04/29/21 Jayjay Ortiz MD [address] [place] [address] Primary Staff Physician Cardiology 11/25/22 Employee Benefits Coordinator Relationship Specialty Start Date End Date Kylah Palma PA-C [address] [place] [address] PCP - General Family Medicine 02/08/14 Oneyda Recinos MD [address] [place] [address] Primary Staff Physician Cardiology 04/29/21 [address] Ortiz MD [address] [facility] [facility] [place] [address] Primary Staff Physician Cardiology 11/25/22 15, Pharmacist [address] [place] [address] Pharmacist Pharmacy 03/12/23 Employee Benefits Coordinator Relationship Specialty Start Date End Date Kylah Palma PA-C [address] [place] [address] PCP - General Family Medicine 02/08/14 Oneyda Recinos MD [address] [place] [address] Primary Staff Physician Cardiology 04/29/21 Jayjay Ortiz MD [address] [place] [address] Primary Staff Physician Cardiology 11/25/22 15, Pharmacist [address] [place] [address] Pharmacist Pharmacy 03/12/23 Employee Benefits Coordinator Relationship Specialty Start Date End Date Kylah Palma PA-C [address] [place] [address] PCP - General Family Medicine 02/08/14 Oneyda Recinos MD [address] [place] [address] Primary Staff Physician Cardiology 04/29/21 Jayjay Ortiz MD [address] [place] [address] Primary Staff Physician Cardiology 11/25/22 15, Pharmacist [address] [place] [address] Pharmacist Pharmacy 03/12/23 Employee Benefits Coordinator Relationship Specialty Start Date End Date Kylah Palma PA-C [address] [place] [address] PCP - General Family Medicine 02/08/14 Oneyda Recinos MD [address] [place] [address] Primary Staff Physician Cardiology 04/29/21 Jayjay Ortiz MD [address] [place] [address] Primary Staff Physician Cardiology 11/25/22 15, Pharmacist [address] [place] [address] Pharmacist Pharmacy 03/12/23 Employee Benefits Coordinator Relationship Specialty Start Date End Date Kylah Palma PA-C [address] [place] [address] PCP - General Family Medicine 02/08/14 Oneyda Recinos MD [address] [place] [address] Primary Staff Physician Cardiology 04/29/21 Jayjay Ortiz MD [address] [place] [address] Primary Staff Physician Cardiology 11/25/22 15, Pharmacist [address] [place] [address] Pharmacist Pharmacy 03/12/23 Employee Benefits Coordinator Relationship Specialty Start Date End Date Kylah Palma PA-C [address] [place] [address] PCP - General Family Medicine 02/08/14 Oneyda Recinos MD [address] [place] [address] Primary Staff Physician Cardiology 04/29/21 [address]jay Ortiz MD [address] [facility] [place] [address] Primary Staff Physician Cardiology 11/25/22 15, Pharmacist [address] [place] [address] Pharmacist Pharmacy 03/12/23 Employee Benefits Coordinator Relationship Specialty Start Date End Date Kylah Palma PA-C [address] [place] [address] PCP - General Family Medicine 02/08/14 Oneyda Recinos MD [address] [place] [address] Primary Staff Physician Cardiology 04/29/21 Jayjay Ortiz MD [address] [place] [address] Primary Staff Physician Cardiology 11/25/22 15, Pharmacist [address] [place] [address] Pharmacist Pharmacy 03/12/23 Employee Benefits Coordinator Relationship Specialty Start Date End Date Kylah Palma PA-C [address] [place] [address] PCP - General Family Medicine 02/08/14 [address]da Recinos MD [address] [facility] [place] [address] Primary Staff Physician Cardiology 04/29/21 Jayjay Ortiz MD [address] [place] [address] Primary Staff Physician Cardiology 11/25/22 15, Pharmacist [address] [place] [address] Pharmacist Pharmacy 03/12/23 Employee Benefits Coordinator Relationship Specialty Start Date End Date Kylah Palma PA-C [address] [place] [address] PCP - General Family Medicine 02/08/14 Oneyda Recinos MD [address] [place] [address] Primary Staff Physician Cardiology 04/29/21 Jayjay Ortiz MD [address] [place] [address] Primary Staff Physician Cardiology 11/25/22 15, Pharmacist [address] [place] [address] Pharmacist Pharmacy 03/12/23 Employee Benefits Coordinator Relationship Specialty Start Date End Date Kylah Palma PA-C [address] [place] [address] PCP - General Family Medicine 02/08/14 Oneyda Recinos MD [address] [place] [address] Primary Staff Physician Cardiology 04/29/21 Jayjay Ortiz MD [address] [place] [address] Primary Staff Physician Cardiology 11/25/22 15, Pharmacist [address] [place] [address] Pharmacist Pharmacy 03/12/23 Employee Benefits Coordinator Relationship Specialty Start Date End Date Kylah Palma PA-C [address] [place] [address] PCP - General Family Medicine 02/08/14 Oneyda Recinos MD [address] [place] [address] Primary Staff Physician Cardiology 04/29/21 Jayjay Ortiz MD [address] [place] [address] Primary Staff Physician Cardiology 11/25/22 15, Pharmacist [address] [place] [address] Pharmacist Pharmacy 03/12/23 Team Status: Inactive Member Role Status Dates HALEY Mendoza Primary Care Provider Active Dr. Luis Vaughn MD Attending Provider, Emergency Pro vider Active Team Status: Inactive Member Role Status Dates HALEY Mendoza Primary Care Provider Active Dr. Geo Godoy , Emergency Provider Active Employee Benefits Coordinator Relationship Specialty Start Date End Date Kylah Palma PA-C [address] [place] [address] PCP - General Family Medicine 02/08/14 Oneyda Recinos MD [address] [place] [address] Primary Staff Physician Cardiology 04/29/21 Jayjay Ortiz MD [address] [place] [address] Primary Staff Physician Cardiology 11/25/22 15, Pharmacist [address] [place] [address] Pharmacist Pharmacy 03/12/23 Employee Benefits Coordinator Relationship Specialty Start Date End Date Kylah Palma PA-C [address] [place] [address] PCP - General Family Medicine 02/08/14 Oneyda Recinos MD [address] [place] [address] Primary Staff Physician Cardiology 04/29/21 Jayjay Ortiz MD [address] [place] [address] Primary Staff Physician Cardiology 11/25/22 15, Pharmacist [address] [place] [address] Pharmacist Pharmacy 03/12/23 Employee Benefits Coordinator Relationship Specialty Start Date End Date Kylah Palma PA-C [address] [place] [address] PCP - General Family Medicine 02/08/14 Oneyda Recinos MD [address] [place] [address] Primary Staff Physician Cardiology 04/29/21 Jayjay Ortiz MD [address] [place] [address] Primary Staff Physician Cardiology 11/25/22 15, Pharmacist [address] [place] [address] Pharmacist Pharmacy 03/12/23 Employee Benefits Coordinator Relationship Specialty Start Date End Date Kylah Palma PA-C [address] [place] [address] PCP - General Family Medicine 02/08/14 Oneyda Recinos MD [address] [place] [address] Primary Staff Physician Cardiology 04/29/21 Jayjay Ortiz MD [address] [place] [address] Primary Staff Physician Cardiology 11/25/22 15, Pharmacist [address] [place] [address] Pharmacist Pharmacy 03/12/23 Employee Benefits Coordinator Relationship Specialty Start Date End Date Kylah Palma PA-C [address] [place], [place] [address]761 PCP - General Family Medicine 02/08/14 Oneyda Recinos MD [address] [place] [address] Primary Staff Physician Cardiology 04/29/21 Jayjay Ortiz MD [address] [place] [address] Primary Staff Physician Cardiology 11/25/22 15, Pharmacist [address] [place] [address] Pharmacist Pharmacy 03/12/23 Employee Benefits Coordinator Relationship Specialty Start Date End Date Kylah Palma PA-C [address] [place] [address] PCP - General Family Medicine 02/08/14 Oneyda Recinos MD [address] [place] [address] Primary Staff Physician Cardiology 04/29/21 Jayjay Ortiz MD [address] [place] [address] Primary Staff Physician Cardiology 11/25/22 15, Pharmacist [address] [place] [address] Pharmacist Pharmacy 03/12/23 Employee Benefits Coordinator Relationship Specialty Start Date End Date Kylah Palma PA-C [address] [place] [address] PCP - General Family Medicine 02/08/14 Oneyda Recinos MD [address] [place] [address] Primary Staff Physician Cardiology 04/29/21 Jayjay Ortiz MD [address] [place] [address] Primary Staff Physician Cardiology 11/25/22 15, Pharmacist [address] [place] [address] Pharmacist Pharmacy 03/12/23 Employee Benefits Coordinator Relationship Specialty Start Date End Date Kylah Palma PA-C [address] [place] [address] PCP - General Family Medicine 02/08/14 Oneyda Recinos MD [address] [place] [address] Primary Staff Physician Cardiology 04/29/21 Jayjay Ortiz MD [address] [place], [place] [address]40[address] Primary Staff Physician Cardiology 11/25/22 15, Pharmacist [address] [place] [address] Pharmacist Pharmacy 03/12/23 Employee Benefits Coordinator Relationship Specialty Start Date End Date Kylah Palma PA-C [address] [place] [address] PCP - General Family Medicine 02/08/14 Oneyda Recinos MD [address] [place] [address] Primary Staff Physician Cardiology 04/29/21 Jayjay Ortiz MD [address] [place] [place], [place] [address]796395 Primary Staff Physician Cardiology 11/25/22 15, Pharmacist [address] [place] [address] Pharmacist Pharmacy 03/12/23 Employee Benefits Coordinator Relationship Specialty Start Date End Date Kylah Palma PA-C [address] [place] [address] PCP - General Family Medicine 02/08/14 Oneyda Recinos MD [address] [place] [address] Primary Staff Physician Cardiology 04/29/21 Jayjay Ortiz MD [address] [place] [address] Primary Staff Physician Cardiology 11/25/22 15, Pharmacist [address] [place] [address] Pharmacist Pharmacy 03/12/23 Employee Benefits Coordinator Relationship Specialty Start Date End Date Kylah Palma PA-C [address] [place] [address] PCP - General Family Medicine 02/08/14 Oneyda Recinos MD [address] [place] [address] Primary Staff Physician Cardiology 04/29/21 Jayjay Ortiz MD [address] [place] [address] Primary Staff Physician Cardiology 11/25/22 15, Pharmacist [address] [place] [address] Pharmacist Pharmacy 03/12/23 Employee Benefits Coordinator Relationship Specialty Start Date End Date Kylah Palma PA-C [address] [place] [address] PCP - General Family Medicine 02/08/14 Oneyda Recinos MD [address] [place] [address] Primary Staff Physician Cardiology 04/29/21 Jayjay Ortiz MD [address] [place] [address] Primary Staff Physician Cardiology 11/25/22 15, Pharmacist [address] [place] [address] Pharmacist Pharmacy 03/12/23 Employee Benefits Coordinator Relationship Specialty Start Date End Date Kylah Palma PA-C [address] [place] [address] PCP - General Family Medicine 02/08/14 Oneyda Recinos MD [address] [place] [address] Primary Staff Physician Cardiology 04/29/21 Jayjay Ortiz MD [address] [place] [address] Primary Staff Physician Cardiology 11/25/22 15, Pharmacist [address] [place] [address] Pharmacist Pharmacy 03/12/23 Employee Benefits Coordinator Relationship Specialty Start Date End Date Kylah Palma PA-C [address] [place] [address] PCP - General Family Medicine 02/08/14 Oneyda Recinos MD [address] [place] [address] Primary Staff Physician Cardiology 04/29/21 Jayjay Ortiz MD [address] [place] [address] Primary Staff Physician Cardiology 11/25/22 15, Pharmacist [address] [place] [address] Pharmacist Pharmacy 03/12/23 Employee Benefits Coordinator Relationship Specialty Start Date End Date Kylah Palma PA-C [address] [place] [address] PCP - General Family Medicine 02/08/14 Oneyda Recinos MD [address] [place] [address] Primary Staff Physician Cardiology 04/29/21 Jayjay Otriz MD [address] [place] [address] Primary Staff Physician Cardiology 11/25/22 15, Pharmacist [address] [place] [address] Pharmacist Pharmacy 03/12/23 Employee Benefits Coordinator Relationship Specialty Start Date End Date Kylah Palma PA-C [address] [place] [address] PCP - General Family Medicine 02/08/14 [address]da Rec[address] [facility] [place] [place] [address] Primary Staff Physician Cardiology 04/29/21 Jayjay Ortiz MD [address] [place] [address] Primary Staff Physician Cardiology 11/25/22 15, Pharmacist [address] [place] [address] Pharmacist Pharmacy 03/12/23 Employee Benefits Coordinator Relationship Specialty Start Date End Date Kylah Palma PA-C [address] [place] [address] PCP - General Family Medicine 02/08/14 Oneyda Recinos MD [address] [place] [address] Primary Staff Physician Cardiology 04/29/21 Employee Benefits Coordinator Relationship Specialty Start Date End Date Kylah Palma PA-C [address] [place] [address] PCP - General Family Medicine 02/08/14 Oneyda Recinos MD [address] [place] [address] Primary Staff Physician Cardiology 04/29/21 Employee Benefits Coordinator Relationship Specialty Start Date End Date Kylah Palma PA-C [address] [place] [address] PCP - General Family Medicine 02/08/14 Oneyda Recinos MD [address] [place], [place] [address]597895 Primary Staff Physician Cardiology 04/29/21 Jayjay Ortiz MD [address] [facility] [place] [address] Primary Staff Physician Cardiology 11/25/22 Employee Benefits Coordinator Relationship Specialty Start Date End Date Kylah Palma PA-C [address] [place], [place] [address]01 PCP - General Family Medicine 02/08/14 Oneyda Recinos MD [address] [place] [address] Primary Staff Physician Cardiology 04/29/21 Jayjay Ortiz MD [address] [place] [address] Primary Staff Physician Cardiology 11/25/22 15, Pharmacist [address] [place] [address] Pharmacist Pharmacy 03/12/23 Employee Benefits Coordinator Relationship Specialty Start Date End Date Kylah Palma PA-C [address] [place] [address] PCP - General Family Medicine 02/08/14 Oneyda Recinos MD [address] [place] [address] Primary Staff Physician Cardiology 04/29/21 Jayjay Ortiz MD [address] [place] [address] Primary Staff Physician Cardiology 11/25/22 15, Pharmacist [address] [place] [address] Pharmacist Pharmacy 03/12/23 Employee Benefits Coordinator Relationship Specialty Start Date End Date Kylah Palma PA-C [address] [place] [address] PCP - General Family Medicine 02/08/14 Oneyda Recinos MD [address] [place] [address] Primary Staff Physician Cardiology 04/29/21 Jayjay Ortiz MD [address] [place] [address] Primary Staff Physician Cardiology 11/25/22 15, Pharmacist [address] [place] [address] Pharmacist Pharmacy 03/12/23 Employee Benefits Coordinator Relationship Specialty Start Date End Date Kylah Palma PA-C [address] [place] [address] PCP - General Family Medicine 02/08/14 Oneyda Recinos MD [address] [place] [address] Primary Staff Physician Cardiology 04/29/21 Jayjay Ortiz MD [address] [place] [address] Primary Staff Physician Cardiology 11/25/22 15, Pharmacist [address] [place] [address] Pharmacist Pharmacy 03/12/23 Employee Benefits Coordinator Relationship Specialty Start Date End Date Kylah Palma PA-C [address] [place] [address] PCP - General Family Medicine 02/08/14 Oneyda Recinos MD [address] [place] [address] Primary Staff Physician Cardiology 04/29/21 Jayjay Ortiz MD [address] [place] [address] Primary Staff Physician Cardiology 11/25/22 15, Pharmacist [address] [place] [address] Pharmacist Pharmacy 03/12/23 Employee Benefits Coordinator Relationship Specialty Start Date End Date Kylah Palma PA-C [address] [place] [address] PCP - General Family Medicine 02/08/14 Oneyda Recinos MD [address] [place] [address] Primary Staff Physician Cardiology 04/29/21 Jayjay Ortiz MD [address] [place] [address] Primary Staff Physician Cardiology 11/25/22 15, Pharmacist [address] [place] [address] Pharmacist Pharmacy 03/12/23 Team Status: Inactive Member Role Status HALEY Boyle Primary Care Provider Active Dr. Bharath Chinchilla , DO Emergency Provider Active Employee Benefits Coordinator Relationship Specialty Start Date End Date Kylah Palma PA-C [address] [place] [address] PCP - General Family Medicine 02/08/14 Oneyda Recinos MD [address] [place] [address] Primary Staff Physician Cardiology 04/29/21 Jayjay Ortiz MD [address] [place] [address] Primary Staff Physician Cardiology 11/25/22 15, Pharmacist [address] [place] [address] Pharmacist Pharmacy 03/12/23 Employee Benefits Coordinator Relationship Specialty Start Date End Date Kylah Palma PA-C [address] [place] [address] PCP - General Family Medicine 02/08/14 Oneyda Recinos MD [address] [place] [place], [place] 1509795 Primary Staff Physician Cardiology 04/29/21 Jayjay Ortiz MD [address] [place] [place], [place] [address]95 Primary Staff Physician Cardiology 11/25/22 15, Pharmacist [address] [place] [address] Pharmacist Pharmacy 03/12/23 Employee Benefits Coordinator Relationship Specialty Start Date End Date Kylah Palma PA-C [address] [place], [place] 962381 PCP - General Family Medicine 02/08/14 Oneyda Recinos MD [address] [place] [place], [place] 9383295 Primary Staff Physician Cardiology 04/29/21 Jayjay Ortiz MD [address] [place] [place], [place] 9819495 Primary Staff Physician Cardiology 11/25/22 15, Pharmacist [address] [place] [address] Pharmacist Pharmacy 03/12/23 ProviderJoyce MD Dsp Engineer 03/03/24 03/17/24 Employee Benefits Coordinator Relationship Specialty Start Date End Date Kylah Palma PA-C [address] [place], [place] [address]27931 PCP - General Family Medicine 02/08/14 Oneyda Recinos MD [address] [place] [address] Primary Staff Physician Cardiology 04/29/21 Jayjay Ortiz MD [address] [place] [address] Primary Staff Physician Cardiology 11/25/22 15, Pharmacist [address] [place] [address] Pharmacist Pharmacy 03/12/23 ProviderJoyce MD Dsp Engineer 03/03/24 03/17/24 Employee Benefits Coordinator Relationship Specialty Start Date End Date Kylah Palma PA-C [address] [place] [address] PCP - General Family Medicine 02/08/14 Oneyda Recinos MD [address] [place] [address] Primary Staff Physician Cardiology 04/29/21 Jayjay Ortiz MD [address] [place] [address] Primary Staff Physician Cardiology 11/25/22 15, Pharmacist [address] [place] [address] Pharmacist Pharmacy 03/12/23 Employee Benefits Coordinator Relationship Specialty Start Date End Date Kylah Palma PA-C [address] [place] [address] PCP - General Family Medicine 02/08/14 Oneyda Recinos MD [address] [place] [address] Primary Staff Physician Cardiology 04/29/21 Jayjay Ortiz MD [address] [place] [address] Primary Staff Physician Cardiology 11/25/22 15, Pharmacist [address] [place] [address] Pharmacist Pharmacy 03/12/23 Employee Benefits Coordinator Relationship Specialty Start Date End Date Kylah Palma PA-C [address] [place] [address] PCP - General Family Medicine 02/08/14 Oneyda Recinos MD [address] [place] [address] Primary Staff Physician Cardiology 04/29/21 Jayjay Ortiz MD [address] [place] [address] Primary Staff Physician Cardiology 11/25/22 15, Pharmacist [address] [place] [address] Pharmacist Pharmacy 03/12/23 Employee Benefits Coordinator Relationship Specialty Start Date End Date Kylah Palma PA-C [address] [place] [address] PCP - General Family Medicine 02/08/14 Oneyda Recinos MD [address] [place] [address] Primary Staff Physician Cardiology 04/29/21 Jayjay Ortiz MD [address] [place] [address] Primary Staff Physician Cardiology 11/25/22 15, Pharmacist [address] [place] [address] Pharmacist Pharmacy 03/12/23 Employee Benefits Coordinator Relationship Specialty Start Date End Date Kylah Palma PA-C [address] [place] [address] PCP - General Family Medicine 02/08/14 Oneyda Recinos MD [address] [place] [address] Primary Staff Physician Cardiology 04/29/21 Jayjay Ortiz MD [address] [place] [address] Primary Staff Physician Cardiology 11/25/22 15, Pharmacist [address] [place] [address] Pharmacist Pharmacy 03/12/23 Employee Benefits Coordinator Relationship Specialty Start Date End Date Kylah Palma PA-C [address] [place] [address] PCP - General Family Medicine 02/08/14 Oneyda Recinos MD [address] [place] [address] Primary Staff Physician Cardiology 04/29/21 Jayjay Ortiz MD [address] [place] [address] Primary Staff Physician Cardiology 11/25/22 15, Pharmacist [address] [place] [address] Pharmacist Pharmacy 03/12/23 Employee Benefits Coordinator Relationship Specialty Start Date End Date Kylah Palma PA-C [address] [place], [place] 345671 PCP - General Family Medicine 02/08/14 Oneyda Recinos MD [address] [place] [address] Primary Staff Physician Cardiology 04/29/21 Jayjay Ortiz MD [address] [place] [address] Primary Staff Physician Cardiology 11/25/22 15, Pharmacist [address] [place] [address] Pharmacist Pharmacy 03/12/23 Employee Benefits Coordinator Relationship Specialty Start Date End Date Kylah Palma PA-C [address] [place] [address] PCP - General Family Medicine 02/08/14 Oneyda Recinos MD [address] [place] [address] Primary Staff Physician Cardiology 04/29/21 Jayjay Ortiz MD [address] [place] [address] Primary Staff Physician Cardiology 11/25/22 15, Pharmacist [address] [place] [address] Pharmacist Pharmacy 03/12/23 Employee Benefits Coordinator Relationship Specialty Start Date End Date Kylah Palma PA-C [address] [place] [address] PCP - General Family Medicine 02/08/14 Oneyda Recinos MD [address] [place] [address] Primary Staff Physician Cardiology 04/29/21 Jajyay Ortiz MD [address] [place] [address] Primary Staff Physician Cardiology 11/25/22 15, Pharmacist [address] [place] [address] Pharmacist Pharmacy 03/12/23 Employee Benefits Coordinator Relationship Specialty Start Date End Date Kylah Palma PA-C [address] [place] [address] PCP - General Family Medicine 02/08/14 Oneyda Recinos MD [address] [place] [address] Primary Staff Physician Cardiology 04/29/21 Jayjay Ortiz MD [address] [place] [address] Primary Staff Physician Cardiology 11/25/22 15, Pharmacist [address] [place] [address] Pharmacist Pharmacy 03/12/23 Employee Benefits Coordinator Relationship Specialty Start Date End Date Kylah Palma PA-C [address] [place] [address] PCP - General Family Medicine 02/08/14 Oneyda Recinos MD [address] [place] [address] Primary Staff Physician Cardiology 04/29/21 Jayjay Ortiz MD [address] [place] [address] Primary Staff Physician Cardiology 11/25/22 15, Pharmacist [address] [place] [address] Pharmacist Pharmacy 03/12/23 Employee Benefits Coordinator Relationship Specialty Start Date End Date Kylah Palma PA-C [address] [place] [address] PCP - General Family Medicine 02/08/14 Oneyda Recinos MD [address] [place] [address] Primary Staff Physician Cardiology 04/29/21 Jayjay Ortiz MD [address] [place] [address] Primary Staff Physician Cardiology 11/25/22 15, Pharmacist [address] [place] [address] Pharmacist Pharmacy 03/12/23 Employee Benefits Coordinator Relationship Specialty Start Date End Date Kylah Palma PA-C [address] [place] [address] PCP - General Family Medicine 02/08/14 Oneyda Recinos MD [address] [place] [address] Primary Staff Physician Cardiology 04/29/21 Employee Benefits Coordinator Relationship Specialty Start Date End Date Kylah Palma PA-C [address] [place] [address] PCP - General Family Medicine 02/08/14 Oneyda Recinos MD [address] [place], [place] 7857295 Primary Staff Physician Cardiology 04/29/21 Jayjay Ortiz MD [address] [place], [place] 6893295 Primary Staff Physician Cardiology 11/25/22 15, Pharmacist [address] [place] [address] Pharmacist Pharmacy 03/12/23 Employee Benefits Coordinator Relationship Specialty Start Date End Date Kylah Palma PA-C [address] [place] [address] PCP - General Family Medicine 02/08/14 Employee Benefits Coordinator Relationship Specialty Start Date End Date Kylah Palma PA-C [address] [place] [address] PCP - General Family Medicine 02/08/14 Oneyda Recinos MD [address] [place], [place] 2160[address] Primary Staff Physician Cardiology 04/29/21 Jayjay Ortiz MD [address] [place], [place] [address] Primary Staff Physician Cardiology 11/25/22 15, Pharmacist [address] [place] [address] Pharmacist Pharmacy 03/12/23 Employee Benefits Coordinator Relationship Specialty Start Date End Date Kylah Palma PA-C [address] [place] [address] PCP - General Family Medicine 02/08/14 Oneyda Recinos MD [address] [place] [address] Primary Staff Physician Cardiology 04/29/21 Jayjay Ortiz MD [address] [place], [place] [address]35[address] Primary Staff Physician Cardiology 11/25/22 15, Pharmacist [address] [place] [address] Pharmacist Pharmacy 03/12/23 ProviderJoyce MD Dsp Engineer 03/03/24 03/17/24 Employee Benefits Coordinator Relationship Specialty Start Date End Date Kylah Palma PA-C [address] [place], [place] 775161 PCP - General Family Medicine 02/08/14 Oneyda Recinos MD [address] [place] [address] Primary Staff Physician Cardiology 04/29/21 Jayjay Ortiz MD [address] [place], [place] 2117295 Primary Staff Physician Cardiology 11/25/22 15, Pharmacist [address] [place] [address] Pharmacist Pharmacy 03/12/23 Employee Benefits Coordinator Relationship Specialty Start Date End Date Kylah Palma PA-C [address] [place] [address] PCP - General Family Medicine 02/08/14 Oneyda Recinos MD [address] [place] [address] Primary Staff Physician Cardiology 04/29/21 Jayjay Ortiz MD [address] [place] [address] Primary Staff Physician Cardiology 11/25/22 15, Pharmacist [address] [place] [address] Pharmacist Pharmacy 03/12/23 Employee Benefits Coordinator Relationship Specialty Start Date End Date Edd Palma PA-C PCP - General Family Medicine 02/08/14 Oneyda Recinos MD [address] [place] [address] Primary Staff Physician Cardiology 04/29/21 Jayjay Ortiz MD [address] [place] [address] Primary Staff Physician Cardiology 11/25/22 15, Pharmacist [address] [place] [address] Pharmacist Pharmacy 03/12/23 Employee Benefits Coordinator Relationship Specialty Start Date End Date Edd Palma PA-C PCP - General Family Medicine 02/08/14 Oneyda Recinos MD [address] [place] [address] Primary Staff Physician Cardiology 04/29/21 Jayjay Ortiz MD [address] [place] [address] Primary Staff Physician Cardiology 11/25/22 15, Pharmacist [address] [place] [address] Pharmacist Pharmacy 03/12/23 Employee Benefits Coordinator Relationship Specialty Start Date End Date Edd Palma PA-C PCP - General Family Medicine 02/08/14 Oneyda Recinos MD [address] [place] [address] Primary Staff Physician Cardiology 04/29/21 Jayjay Ortiz MD [address] [place] [address] Primary Staff Physician Cardiology 11/25/22 15, Pharmacist [address] [place] [address] Pharmacist Pharmacy 03/12/23 Employee Benefits Coordinator Relationship Specialty Start Date End Date Edd Palma PA-C PCP - General Family Medicine 02/08/14 Oneyda Recinos MD [address] [place] [address] Primary Staff Physician Cardiology 04/29/21 Jayjay Ortiz MD [address] [place] [address] Primary Staff Physician Cardiology 11/25/22 15, Pharmacist [address] [place] [address] Pharmacist Pharmacy 03/12/23 Radha New[place] APRN.WATER RESOURCE PROJECT MANAGER [address] [place] [address] Dsp Engineer Family Medicine 09/09/24 Yissel Marical APRN.WATER RESOURCE PROJECT MANAGER [address] [place] [address] Dsp Engineer Family Medicine 09/09/24 Employee Benefits Coordinator Relationship Specialty Start Date End Date Edd Palma PA-C PCP - General Family Medicine 02/08/14 Oneyda Recinos MD [address] [place] [address] Primary Staff Physician Cardiology 04/29/21 Jayjay Ortiz MD [address] [place] [address] Primary Staff Physician Cardiology 11/25/22 15, Pharmacist [address] [place] [address] Pharmacist Pharmacy 03/12/23 Radha [place] APRN.WATER RESOURCE PROJECT MANAGER [address] [place], [place] 328881 [facility] 09/[facility]/24 Yissel Marcial APRN.WATER RESOURCE PROJECT MANAGER [address] [place], [place] [address] [facility] 09/09/24 Employee Benefits Coordinator Relationship Specialty Start Date End Date Edd Palma PA-C PCP - General Family Medicine 02/08/14 [address]da [address] [facility] [place] [address] Primary Staff Physician Cardiology 04/29/21 Jayjay Ortiz MD [address] [facility] [place] [address] Primary Staff Physician Cardiology 11/25/22 15, Pharmacist [address] [place] [address] Pharmacist Pharmacy 03/12/23 Radha [place] APRN.WATER RESOURCE PROJECT MANAGER [address] [place] [address] [facility] 09/09/24 Yissel Marcial CONTENT ANALYST.WATER RESOURCE PROJECT MANAGER [address] [place], [place] 502931 Dsp Engineer Family Medicine 09/09/24 Employee Benefits Coordinator Relationship Specialty Start Date End Date Edd Palma PA-C PCP - General Family Medicine 02/08/14 Oneyda Recinos MD [address] [place] [address] Primary Staff Physician Cardiology 04/29/21 Jayjay Ortiz MD [address] [place] [address] Primary Staff Physician Cardiology 11/25/22 15, Pharmacist [address] [place] [address] Pharmacist Pharmacy 03/12/23 Radha [place], CONTENT ANALYST.WATER RESOURCE PROJECT MANAGER [address] [place] [address] Dsp Engineer Family Medicine 09/09/24 Yissel Marcial CONTENT ANALYST.WATER RESOURCE PROJECT MANAGER [address] [place] [address] Dsp Engineer Family Medicine 09/09/24 Employee Benefits Coordinator Relationship Specialty Start Date End Date Edd Palma PA-C PCP - General Family Medicine 02/08/14 Oneyda Recinos MD [address] [place] [address] Primary Staff Physician Cardiology 04/29/21 Jayjay Ortiz MD [address] [place] [address] Primary Staff Physician Cardiology 11/25/22 15, Pharmacist [address] [place] [address] Pharmacist Pharmacy 03/12/23 Radha [place], CONTENT ANALYST.WATER RESOURCE PROJECT MANAGER [address] [place] [address] Dsp Engineer Family Medicine 09/09/24 Yissel Marcial CONTENT ANALYST.WATER RESOURCE PROJECT MANAGER [address] [place] [address] Dsp Engineer Family Medicine 09/09/24 Employee Benefits Coordinator Relationship Specialty Start Date End Date Edd Palma PA-C PCP - General Family Medicine 02/08/14 Oneyda Recinos MD [address] [place] [address] Primary Staff Physician Cardiology 04/29/21 Jayjay Ortiz MD [address] [place] [address] Primary Staff Physician Cardiology 11/25/22 15, Pharmacist [address] [place] [address] Pharmacist Pharmacy 03/12/23 Radha [place], CONTENT ANALYST.WATER RESOURCE PROJECT MANAGER [address] [place] [address] Dsp Engineer Family Medicine 09/09/24 Yissel Marcial CONTENT ANALYST.WATER RESOURCE PROJECT MANAGER [address] [place] [address] Dsp Engineer Family [facility] 09/09/24 Employee Benefits Coordinator Relationship Specialty Start Date End Date Edd Palma PA-C PCP - General Family Medicine 02/08/14 Oneyda Recinos MD [address] [place] [address] Primary Staff Physician Cardiology 04/29/21 Jayjay Ortiz MD [address] [place] [address] Primary Staff Physician Cardiology 11/25/22 15, Pharmacist [address] [place] [address] Pharmacist Pharmacy 03/12/23 Radha [place] APRN.WATER RESOURCE PROJECT MANAGER [address] [place], [place] [address]47[address] [facility] 09/09/24 Yissel Marcial APRN.WATER RESOURCE PROJECT MANAGER [address] [place], [place] 3440[address] [facility] 09/09/24 Employee Benefits Coordinator Relationship Specialty Start Date End Date Oneyda Recinos MD [address] [place] [address] Primary Staff Physician Cardiology 04/29/21 Jayjay Ortiz MD [address] [place] [address] Primary Staff Physician Cardiology 11/25/22 15, Pharmacist [address] [place] [address] Pharmacist Pharmacy 03/12/23 Radha [place] APRN.WATER RESOURCE PROJECT MANAGER [address] [place] [address] [facility] 09/09/24 Yissel Marcial APRN.WATER RESOURCE PROJECT MANAGER [address] [place] [address] Dsp Engineer Family Medicine 09/09/24 Employee Benefits Coordinator Relationship Specialty Start Date End Date Oneyda Recinos MD [address] [place] [address] Primary Staff Physician Cardiology 04/29/21 Jayjay Ortiz MD [address] [place] [address] Primary Staff Physician Cardiology 11/25/22 15, Pharmacist [address] [place] [address] Pharmacist Pharmacy 03/12/23 Radha [place], CONTENT ANALYST.WATER RESOURCE PROJECT MANAGER [facility] [place] [address] Dsp Engineer Family Medicine 09/09/24 Yissel Marcial CONTENT ANALYST.WATER RESOURCE PROJECT MANAGER [address] [place] [address] [facility] 09/09/24 Employee Benefits Coordinator Relationship Specialty Start Date End Date Oneyda Recinos MD [address] [place] [address] Primary Staff Physician Cardiology 04/29/21 Jayjay Ortiz MD [address] [place] [address] Primary Staff Physician Cardiology 11/25/22 15, Pharmacist [address] [place] [address] Pharmacist Pharmacy 03/12/23 Radha Newby, CONTENT ANALYST.WATER RESOURCE PROJECT MANAGER [address] [place] [address] Dsp Engineer Family Medicine 09/09/24 Yissel Marcial, CONTENT ANALYST.WATER RESOURCE PROJECT MANAGER [address] [place] [address] [facility] 09/09/24 Employee Benefits Coordinator Relationship Specialty Start Date End Date Oneyda Recinos MD [address] [place] [address] Primary Staff Physician Cardiology 04/29/21 Jayjay Ortiz MD [address] [place] [address] Primary Staff Physician Cardiology 11/25/22 15, Pharmacist [address] [place] [address] Pharmacist Pharmacy 03/12/23 Radha Newby, CONTENT ANALYST.WATER RESOURCE PROJECT MANAGER [address] [place] [address] [facility] 09/09/24 Yissel Marcial, CONTENT ANALYST.WATER RESOURCE PROJECT MANAGER [address] [place] [address] Dsp Engineer [facility] 09/09/24 Employee Benefits Coordinator Relationship Specialty Start Date End Date Oneyda Recinos MD [address] [place] [address] Primary Staff Physician Cardiology 04/29/21 Jayjay Ortiz MD [address] [place] [address] Primary Staff Physician Cardiology 11/25/22 15, Pharmacist [address] [place] [address] Pharmacist Pharmacy 03/12/23 Radha Newby, CONTENT ANALYST.WATER RESOURCE PROJECT MANAGER [address] [place] [address] Dsp Engineer Family Medicine 09/09/24 Yissel Marcial CONTENT ANALYST.WATER RESOURCE PROJECT MANAGER [address] [place] [address] Dsp Engineer Family Medicine 09/09/24 Employee Benefits Coordinator Relationship Specialty Start Date End Date Oneyda Recinos MD [address] [place] [address] Primary Staff Physician Cardiology 04/29/21 Jayjay Ortiz MD [address] [place] [address] Primary Staff Physician Cardiology 11/25/22 15, Pharmacist [address] [place] [address] Pharmacist Pharmacy 03/12/23 Radha Newby, CONTENT ANALYST.WATER RESOURCE PROJECT MANAGER [address] [place] [address] Dsp Engineer Family Medicine 09/09/24 Yissel Marcial, CONTENT ANALYST.WATER RESOURCE PROJECT MANAGER [address] [place] [address] Dsp Engineer Family Medicine 09/09/24 Employee Benefits Coordinator Relationship Specialty Start Date End Date Yissel Marcial, CONTENT ANALYST.WATER RESOURCE PROJECT MANAGER [address] [place] [address] PCP - General Family Medicine 01/11/25 Oneyda Recinos MD [address] [place] [address] Primary Staff Physician Cardiology 04/29/21 Jayjay Ortiz MD [address] [place], [place] 687[address] Primary Staff Physician Cardiology 11/25/22 15, Pharmacist [address] [place] [address] Pharmacist Pharmacy 03/12/23 Radha Newby, CONTENT ANALYST.WATER RESOURCE PROJECT MANAGER [address] [place] [address] Dsp Engineer Family Medicine 09/09/24 Yissel Marcial, CONTENT ANALYST.WATER RESOURCE PROJECT MANAGER [address] [place] [address] Dsp Engineer Family Medicine 09/09/24 Tony Dimas MD [address] [place] [address] Ophthalmology 01/11/25 Employee Benefits Coordinator Relationship Specialty Start Date End Date Yissel Marcial, CONTENT ANALYST.WATER RESOURCE PROJECT MANAGER [address] [place] [address] PCP - General Family Medicine 01/11/25 Onedya Recinos MD [address] [place] [address] Primary Staff Physician Cardiology 04/29/21 Jayjay Ortiz MD [address] [place] [address] Primary Staff Physician Cardiology 11/25/22 15, Pharmacist [address] [place] [address] Pharmacist Pharmacy 03/12/23 Radha Newby APRN.WATER RESOURCE PROJECT MANAGER [address] [place] [address] Dsp Engineer Family Medicine 09/09/24 Yissel Marcial APRN.WATER RESOURCE PROJECT MANAGER [address] [place] [address] Dsp Engineer Family Medicine 09/09/24 Tony Dimas MD [address] [place], [place] [address]101 Ophthalmology 01/11/25 Employee Benefits Coordinator Relationship Specialty Start Date End Date Yissel Marcial APRN.WATER RESOURCE PROJECT MANAGER [address] [place] [address] PCP - General Family Medicine 01/11/25 Oneyda Recinos MD [address] [place] [address] Primary Staff Physician Cardiology 04/29/21 Jayjay Ortiz MD [address] [place], [place] 0175795 Primary Staff Physician Cardiology 11/25/22 15, Pharmacist [address] [place] [address] Pharmacist Pharmacy 03/12/23 Radha Newby APRN.WATER RESOURCE PROJECT MANAGER [address] [place], [place] 113371 Dsp Engineer Family [facility] 09/09/24 Yissel Marcial, CONTENT ANALYST.WATER RESOURCE PROJECT MANAGER [address] [place], [place] 531731 Dsp Engineer Family Medicine 09/09/24 Tony Dimas MD [address] [place], [place] 322751 Ophthalmology 01/11/25 Employee Benefits Coordinator Relationship Specialty Start Date End Date Yissel Marcial, CONTENT ANALYST.WATER RESOURCE PROJECT MANAGER [address] [place] [address] PCP - General Family Medicine 01/11/25 Oneyda Recinos MD [address] [place], [place] 3577895 Primary Staff Physician Cardiology 04/29/21 Jayjay Ortiz MD [address] [place], [place] 40616[address] Primary Staff Physician Cardiology 11/25/22 15, Pharmacist [address] [place] [address] Pharmacist Pharmacy 03/12/23 Radha Newby, CONTENT ANALYST.WATER RESOURCE PROJECT MANAGER [address] [place] [address] Dsp Engineer Family [facility] 09/09/24 Yissel Marcial, CONTENT ANALYST.WATER RESOURCE PROJECT MANAGER [address] [place], [place] [address]90991 Dsp Engineer Family Medicine 09/09/24 Tony Dimas MD [address] [place], [place] 578971 Ophthalmology 01/11/25 Team Status: Active Member Role Status Dates MARLEN Cedeno Primary Care Provider Active Team Status: Inactive Member Role Status Dates Dr. Enriqueta Duffy DO Emergency Provider Active S tart: February 08, 2025 End: February 08, 2025 MARLEN Cedeno Primary Care Provider Active Start: February 08, 2025 End: February 08, 2025 Employee Benefits Coordinator Relationship Specialty Start Date End Date Yissel Marcial CONTENT ANALYST.WATER RESOURCE PROJECT MANAGER [address] [place] [address] PCP - General Family Medicine 01/11/25 Oneyda Recinos MD [address] [place] [address] Primary Staff Physician Cardiology 04/29/21 Jayjay Ortiz MD [address] [place] [address] Primary Staff Physician Cardiology 11/25/22 15, Pharmacist [facility] [place] [address] Pharmacist Pharmacy 03/12/23 Radha Newby, CONTENT ANALYST.WATER RESOURCE PROJECT MANAGER [address] [place] [address] Dsp Engineer Family Medicine 09/09/24 Yissel Marcial CONTENT ANALYST.WATER RESOURCE PROJECT MANAGER [address] [place] [address] Dsp Engineer Family Medicine 09/09/24 Tony Dimas MD [address] [place] [address] Ophthalmology 01/11/25 Employee Benefits Coordinator Relationship Specialty Start Date End Date Yissel Marcial CONTENT ANALYST.WATER RESOURCE PROJECT MANAGER [address] [place] [address] PCP - General Family Medicine 01/11/25 Oneyda Recinos MD [address] [place] [address] Primary Staff Physician Cardiology 04/29/21 Jayjay Ortiz MD [address] [place], [place] 4646695 Primary Staff Physician Cardiology 11/25/22 15, Pharmacist [facility] [place] [address] Pharmacist Pharmacy 03/12/23 Radha Newby, CONTENT ANALYST.WATER RESOURCE PROJECT MANAGER [address] [place] [address] Dsp Engineer Family Medicine 09/09/24 Yissel Marcial, CONTENT ANALYST.WATER RESOURCE PROJECT MANAGER [address] [place] [address] Dsp Engineer Family Medicine 09/09/24 Tony Dimas MD [address] [place] [address] Ophthalmology 01/11/25 Employee Benefits Coordinator Relationship Specialty Start Date End Date Yissel Marcial, CONTENT ANALYST.WATER RESOURCE PROJECT MANAGER [address] [place] [address] PCP - General Family Medicine 01/11/25 Oneyda Recinos MD [address] [facility] [place], [place] [address]95 Primary Staff Physician Cardiology 04/29/21 Jayjay Ortiz MD [address] [place], [place] 2846095 Primary Staff Physician Cardiology 11/25/22 15, Pharmacist [address] [place] [address] Pharmacist Pharmacy 03/12/23 Radha Newby, CONTENT ANALYST.WATER RESOURCE PROJECT MANAGER [address] [place] [address] Dsp Engineer Family Medicine 09/09/24 Yissel Marcial APRN.WATER RESOURCE PROJECT MANAGER [address] [place] [address] Dsp Engineer Family Medicine 09/09/24 Tony Dimas MD [address] [place] [address] Ophthalmology 01/11/25 Employee Benefits Coordinator Relationship Specialty Start Date End Date Yissel Marcial APRN.WATER RESOURCE PROJECT MANAGER [address] [place] [address] PCP - General Family Medicine 01/11/25 Oneyda Recinos MD [address] [place] [address] Primary Staff Physician Cardiology 04/29/21 Jayjay Ortiz MD [address] [place] [address] Primary Staff Physician Cardiology 11/25/22 15, Pharmacist [address] [place] [address] Pharmacist Pharmacy 03/12/23 Radha Newby, CONTENT ANALYST.WATER RESOURCE PROJECT MANAGER [address] [place] [address] Dsp Engineer Family [facility] 09/09/24 Yissel Marcial, CONTENT ANALYST.WATER RESOURCE PROJECT MANAGER [address] [place] [address] Dsp Engineer Family [facility] 09/09/24 Tony Dimas MD [address] [place] [address] Ophthalmology 01/11/25 Employee Benefits Coordinator Relationship Specialty Start Date End Date Yissel Marcial CONTENT ANALYST.WATER RESOURCE PROJECT MANAGER [address] [place] [address] PCP - General Family Medicine 01/11/25 Oneyda Recinos MD [address] [place] [address] Primary Staff Physician Cardiology 04/29/21 Jayjay Ortiz MD [address] [place] [address] Primary Staff Physician Cardiology 11/25/22 15, Pharmacist [address] [place] [address] Pharmacist Pharmacy 03/12/23 Radha Newby APRN.WATER RESOURCE PROJECT MANAGER [address] [place] [address] [facility] 09/09/24 Yissel Marcial, CONTENT ANALYST.WATER RESOURCE PROJECT MANAGER [address] [place] [address] Dsp Engineer Family Medicine 09/09/24 Tony Dimas MD [address] [place], [place] 345031 Ophthalmology 01/11/25 Employee Benefits Coordinator Relationship Specialty Start Date End Date Yissel Marcial, CONTENT ANALYST.WATER RESOURCE PROJECT MANAGER [address] [place] [address] PCP - General Family Medicine 01/11/25 Oneyda Recinos MD [address] [place], [place] 2299895 Primary Staff Physician Cardiology 04/29/21 Jayjay Ortiz MD [address] [place], [place] 5935395 Primary Staff Physician Cardiology 11/25/22 15, Pharmacist [address] [place] [address] Pharmacist Pharmacy 03/12/23 Radha Newby, PRAFUL.WATER RESOURCE PROJECT MANAGER [address] [place] [address] Dsp Engineer Family [facility] 09/09/24 Yissel Marcial, CONTENT ANALYST.WATER RESOURCE PROJECT MANAGER [address] [place] [address] Dsp Engineer Family Medicine 09/09/24 Tony Dimas MD [address] [place], [place] 730691 Ophthalmology 01/11/25 Employee Benefits Coordinator Relationship Specialty Start Date End Date Yissel Marcial, CONTENT ANALYST.WATER RESOURCE PROJECT MANAGER [address] [place], [place] 848511 PCP - General Family Medicine 01/11/25 Oneyda Recinos MD [address] [place] [address] Primary Staff Physician Cardiology 04/29/21 Jayjay Ortiz MD [address] [place], [place] 1834895 Primary Staff Physician Cardiology 11/25/22 15, Pharmacist [address] [place], [place] 912612 Pharmacist Pharmacy 03/12/23 Radha Newby, CONTENT ANALYST.WATER RESOURCE PROJECT MANAGER [address] [place], [place] 776951 Dsp Engineer Family Medicine 09/09/24 Yissel Marcial, CONTENT ANALYST.WATER RESOURCE PROJECT MANAGER [address] [place] [address] Dsp Engineer Family Medicine 09/09/24 Tony Dimas MD [address] [place] [address] Ophthalmology 01/11/25 Employee Benefits Coordinator Relationship Specialty Start Date End Date Yissel Marcial, CONTENT ANALYST.WATER RESOURCE PROJECT MANAGER [address] [place] [address] PCP - General Family Medicine 01/11/25 Oneyda Recinos MD [address] [place], [place] 4695095 Primary Staff Physician Cardiology 04/29/21 Jayjay Ortiz MD [address] [place], [place] 6774195 Primary Staff Physician Cardiology 11/25/22 15, Pharmacist [address] [place] [address] Pharmacist Pharmacy 03/12/23 Radha Newby, CONTENT ANALYST.WATER RESOURCE PROJECT MANAGER [address] [place] [address] [facility] 09/09/24 Yissel Marcial CONTENT ANALYST.WATER RESOURCE PROJECT MANAGER [address] [place], [place] 507081 [facility] 09/09/24 Tony Dimas MD [address] [place] [address] Ophthalmology 01/11/25 Employee Benefits Coordinator Relationship Specialty Start Date End Date Yissel Marcial CONTENT ANALYST.WATER RESOURCE PROJECT MANAGER [address] [place] [address] PCP - General Family Medicine 01/11/25 Oneyda Recinos MD [address] [place], [place] 9772195 Primary Staff Physician Cardiology 04/29/21 Jayjay Ortiz MD [address] [place] [address] Primary Staff Physician Cardiology 11/25/22 15, Pharmacist [address] [place] [address] Pharmacist Pharmacy 03/12/23 Radha Newby, CONTENT ANALYST.WATER RESOURCE PROJECT MANAGER [address] [place] [address] Dsp Engineer Family Medicine 09/09/24 Yissel Marcial, CONTENT ANALYST.WATER RESOURCE PROJECT MANAGER [address] [place] [address] Dsp Engineer Family Medicine 09/09/24 Tony Dimas MD [address] [facility] [place] [place] [id number] Ophthalmology 01/11/25 Employee Benefits Coordinator Relationship Specialty Start Date End Date Yissel Marcial, CONTENT ANALYST.WATER RESOURCE PROJECT MANAGER [address] [place] [address] PCP - General Family Medicine 01/11/25 Oneyda Recinos MD [address] [place], [place] 8564595 Primary Staff Physician Cardiology 04/29/21 Jayjay Ortiz MD [address] [place], [place] 6294095 Primary Staff Physician Cardiology 11/25/22 15, Pharmacist [address] [place] [address] Pharmacist Pharmacy 03/12/23 Radha Newby, CONTENT ANALYST.WATER RESOURCE PROJECT MANAGER [address] [place] [address] Dsp Engineer Family Medicine 09/09/24 Yissel Marcial, CONTENT ANALYST.WATER RESOURCE PROJECT MANAGER [address] [place] [address] Dsp Engineer Family Medicine 09/09/24 Tony Dimas MD [address] [place], [place] 823031 Ophthalmology 01/11/25 Employee Benefits Coordinator Relationship Specialty Start Date End Date Yissel Marcial, CONTENT ANALYST.WATER RESOURCE PROJECT MANAGER [address] [place] [address] PCP - General Family Medicine 01/11/25 Oneyda Recinos MD [address] [place] [address] Primary Staff Physician Cardiology 04/29/21 Jayjay Ortiz MD [address] [place], [place] 9306595 Primary Staff Physician Cardiology 11/25/22 15, Pharmacist [address] [place] [address] Pharmacist Pharmacy 03/12/23 Radha Newby, CONTENT ANALYST.WATER RESOURCE PROJECT MANAGER [address] [place] [address] Dsp Engineer Family Medicine 09/09/24 Yissel Marcial, CONTENT ANALYST.WATER RESOURCE PROJECT MANAGER [address] [place] [address] Dsp Engineer Family Medicine 09/09/24 Tony Dimas MD [address] [place], [place] 305981 Ophthalmology 01/11/25 Employee Benefits Coordinator Relationship Specialty Start Date End Date Yissel Marcial, CONTENT ANALYST.WATER RESOURCE PROJECT MANAGER [address] [place] [address] PCP - General Family Medicine 01/11/25 Oneyda Recinos MD [address] [place] [address] Primary Staff Physician Cardiology 04/29/21 Jayjay Ortiz MD [address] [place], [place] 9090595 Primary Staff Physician Cardiology 11/25/22 15, Pharmacist [address] [place] [address] Pharmacist Pharmacy 03/12/23 Radha Newby, CONTENT ANALYST.WATER RESOURCE PROJECT MANAGER [address] [place] [address] Dsp Engineer Family Medicine 09/09/24 Yissel Marcial, CONTENT ANALYST.WATER RESOURCE PROJECT MANAGER [address] [place] [address] Dsp Engineer Family Medicine 09/09/24 Tony Dimas MD [address] [place] [address] Ophthalmology 01/11/25 Employee Benefits Coordinator Relationship Specialty Start Date End Date Yissel Marcial, CONTENT ANALYST.WATER RESOURCE PROJECT MANAGER [address] [place] [address] PCP - General Family Medicine 01/11/25 Oneyda Recinos MD [address] [place] [address] Primary Staff Physician Cardiology 04/29/21 Jayjay Ortiz MD [address] [place], [place] 15708[address] Primary Staff Physician Cardiology 11/25/22 15, Pharmacist [address] [place] [address] Pharmacist Pharmacy 03/12/23 Radha Newby, PRAFUL.WATER RESOURCE PROJECT MANAGER [address] [place] [address] Dsp Engineer Family [facility] 09/09/24 Yissel Marcial CONTENT ANALYST.WATER RESOURCE PROJECT MANAGER [address] [place] [address] [facility] 09/09/24 Tony Dimas MD [address] [place] [address] Ophthalmology 01/11/25 Employee Benefits Coordinator Relationship Specialty Start Date End Date Yissel Marcial CONTENT ANALYST.WATER RESOURCE PROJECT MANAGER [address] [place] [address] PCP - General Family Medicine 01/11/25 Oneyda Recinos MD [address] [place] [address] Primary Staff Physician Cardiology 04/29/21 Jayjay Ortiz MD [address] [place], [place] 3642595 Primary Staff Physician Cardiology 11/25/22 15, Pharmacist [address] [place] [address] Pharmacist Pharmacy 03/12/23 Radha [place], CONTENT ANALYST.WATER RESOURCE PROJECT MANAGER [address] [place] [address] Dsp Engineer Family Medicine 09/09/24 Yissel Marcial, CONTENT ANALYST.WATER RESOURCE PROJECT MANAGER [address] [place], [place] 573351 Dsp Engineer Family Medicine 09/09/24 Tony Dimas MD [address] [place], [place] 583681 Ophthalmology 01/11/25 Employee Benefits Coordinator Relationship Specialty Start Date End Date Yissel Marcial CONTENT ANALYST.WATER RESOURCE PROJECT MANAGER [address] [place], [place] 304191 PCP - General Family Medicine 01/11/25 Oneyda Recinos MD [address] [place], [place] 3936295 Primary Staff Physician Cardiology 04/29/21 Jayjay Ortiz MD [address] [place], [place] 6449895 Primary Staff Physician Cardiology 11/25/22 15, Pharmacist [address] [place] [address] Pharmacist Pharmacy 03/12/23 Radha [place], CONTENT ANALYST.WATER RESOURCE PROJECT MANAGER [address] [place] [address] Dsp Engineer [facility] 09/09/24 Yissel Marcial CONTENT ANALYST.WATER RESOURCE PROJECT MANAGER [address] [place], [place] [address] Dsp Engineer Family Medicine 09/09/24 Tony Dimas MD [address] [place], [place] 958311 Ophthalmology 01/11/25 Employee Benefits Coordinator Relationship Specialty Start Date End Date Yissel Marcial CONTENT ANALYST.WATER RESOURCE PROJECT MANAGER [address] [place], [place] 169001 PCP - General Family Medicine 01/11/25 Oneyda Recinos MD [address] [place], [place] 1650995 Primary Staff Physician Cardiology 04/29/21 Jayjay Ortiz MD [address] [place], [place] 7523695 Primary Staff Physician Cardiology 11/25/22 15, Pharmacist [address] [place], [place] 575132 Pharmacist Pharmacy 03/12/23 Yissel Marcial, CONTENT ANALYST.WATER RESOURCE PROJECT MANAGER [address] [place], [place] 639971 Dsp Engineer Family Medicine 09/09/24 Tony Dimas MD [address] [place], [place] 212491 Ophthalmology 01/11/25 Goals (unrecognized section and content) [...] section and content) DATE CREATED AUTHOR 06/13/2022 [facility] DATE CREATED AUTHOR AUTHOR'S ORGANIZ ATION 03/12/2025 [facility] DATE CREATED AUTHOR AUTHOR'S ORGANIZ ATION 08/15/2025 [facility] DATE CREATED AUTHOR AUTHOR'S ORGANIZ ATION 08/15/2025 [facility] FOR RECORDS PERTAINING TO PATIENTS WHO ARE [...] BE BASED ON THE PRIMARY CLINICAL RECORDS. [employer] [facility]. provides no warranty or guarantee of the accuracy or completeness of information in this document.
[2025-09-02 14:06] LABS: Hematocrit 36.2 % (37-47); Hemoglobin 11.2 g/dL (12.0-15.0); Immature Granulocytes Count 0.010 X10^3/uL (0.0-0.0); Mean Corp Hgb Conc 30.9 g/dL (32-36); Mean Corpuscular Volume 81.7 fL (81-99); Mean Platelet Vol. 11.0 fl (6.2-12.0); NRBC Flagged by Analyzer 0 % (0-5); Platelet Count 357 K/mm3 (150-450); RBC Distribution Width CV 15.8 % (11.6-14.6); RBC Distribution Width SD 46.8 fl (35.1-43.9); Red Blood Count 4.43 M/mm3 (4.2-5.4); White Blood Count 5.7 K/mm3 (4.4-11.0)
--- NOTE | 2025-09-02 14:12 | ED.VIS.GI ---
HPI HPI - GI History of Present Illness Chief Complaint: Nausea/Vomiting Narrative Narrative: 45-year-old female past medical history of atrial fibrillation on Coumadin presents with what she thinks is a bleeding ulcer. She relates history that approximately 1 year ago she had upper endoscopy performed at the [facility] and was diagnosed with an ulcer, she takes Protonix for it. She has had a bleeding ulcer previously. Of note, she is a bariatric patient as well and has had gastric bypass/Fred-en-Y. She states that within the last 6 months she had a bleeding ulcer and was hospitalized. They did not perform NG secondary to her gastric bypass, but instead watched her and she had upper endoscopy performed. Her symptoms began yesterday where she had nausea and vomiting a few times, she thought it resolved. She did notice dark brown emesis. She denies any bright red blood, or any rectal bleeding, or any other bleeding diathesis. She awoke this morning and vomited at least 5 times and has been unable to tolerate any oral fluids. [facility] Medical History HOCM (hypertrophic obstructive cardiomyopathy) Presence of combination internal cardiac defibrillator (ICD) and pacemaker Atrial flutter Afib Fatigue Borderline diabetes Heart disease Shortness of breath Home Medications ?Medication ?Instructions ?Recorded ?Last Taken ?Type metoprolol tartrate 25 mg tablet 37.5 mg PO BID 02/21/14 12/16/19 History sotalol 120 mg tablet 120 mg PO BID 06/12/21 Unknown History multivitamin with iron 1 tab PO DAILY 05/03/23 Unknown History warfarin 2.5 mg tablet (Jantoven) 5 mg PO MOWETHSA 05/03/23 Unknown History warfarin 5 mg tablet 2.5 mg PO SUTUFR 05/03/23 Unknown History doxycycline hyclate 100 mg tablet 50 mg PO BID 01/18/24 Unknown History lansoprazole 30 mg capsule,delayed 30 mg PO DAILY #14 caps 02/08/25 Unknown Rx release (Prevacid) metoclopramide HCl 10 mg tablet 10 mg PO 4X/DAY PRN Headache #20 02/08/25 Unknown Rx tabs ondansetron 4 mg disintegrating 4 mg PO Q8H PRN PRN Nausea #10 tabs 08/13/25 Unknown Rx tablet Allergy/AdvReac Type Severity Reaction Status Date / Time metformin AdvReac Nausea/Vom/ Verified 09/02/25 13:21 Diarrhea NSAIDS (Non-Steroidal AdvReac Other Verified 09/02/25 13:21 Anti-Inflamma Family History Mother Diabetes Hypertension Father CVA (cerebral vascular accident) Surgical History S/P gastric bypass H/O cardiac radiofrequency ablation Hx of tympanostomy tubes History of heart surgery Social History Smoking Status: Never smoker alcohol intake: never ROS ROS ED ROS Narrative Review of symptoms positive for dark brown emesis, denies other bleeding diathesis. Positive nausea and vomiting, no diarrhea, no black stool. EXAM Physical Exam Narrative Exam Narrative: Afebrile. Vital signs noted. Nontoxic-appearing. Cardiovascular examination reveals bradycardia. Lungs clear to auscultation bilaterally. Abdomen is soft and nontender without guarding or rebound. Positive bowel sounds. Neurological examination nonfocal, nonlateralizing. No pallor of skin. No central cyanosis. Const Vital Signs: 09/02/25 13:19 09/02/25 14:49 09/02/25 15:24 Temperature 98 F 98 F Temperature Source Oral Pulse Rate 58 L 44 L 49 L Respiratory Rate 16 16 16 Blood Pressure 124/83 H 130/64 H 103/56 L Blood Pressure Mean 96 86 71 Pulse Ox 100 100 100 Oxygen Delivery Method Room Air Room Air MDM MDM MDM Narrative Medical decision making narrative: Concern is for bleeding in the upper portion of the GI tract from ulcer. Patient has had the symptoms previously. I doubt brisk upper GI bleeding or perforation. Also in the differential diagnosis would be gastroenteritis, but the patient has had Fred-en-Y. Comprehensive workup was pursued including CBC, CMP, lipase, and INR. In review of her CBC, she has normal white count of 5.7 with hemoglobin 11.2, hematocrit 36.2, platelet count normal at 357. INR subtherapeutic at 1.8. Lipase normal at 47 so I doubt pancreatitis, CMP is significant for glucose of 110 with a normal anion gap of 10, BUN and creatinine 15 and 0.70 which makes me doubt upper GI bleeding. Urinalysis is negative for infection with WBC, 0-5, I do not feel that she requires antibiotics for urinary tract infection. Upon repeat examination, she has not had any vomiting here in the ED. I compared her hemoglobin to prior labs and it has improved over previous. As she is not vomiting bright red blood, and her INR is therapeutic, I do feel that she can be discharged to follow-up. I had discussed observation with her as she states this happened last time, but she is comfortable with discharge. She states she has enough antiemetic at home as well. Return instructions to the emergency department were reviewed. Disposition is discharged home in stable condition. History & Record Review Discussion w/independent historian: Patient Additional record(s) reviewed:: Prior ED visit Lab Data Attestation: I reviewed the patient's lab results. Labs: Laboratory Results - last 24 hr 09/02/25 09/02/25 13:50 14:25 WBC 5.7 RBC 4.43 Hgb 11.2 L Hct 36.2 L MCV 81.7 MCH 25.3 L MCHC 30.9 L RDW Std Deviation 46.8 H RDW Coeff of Ramesh 15.8 H Plt Count 357 MPV 11.0 Immature Gran % (Auto) 0.200 Neut % (Auto) 48.4 Lymph % (Auto) 41.[address] [place] % (Auto) 6.1 Eos % (Auto) 2.6 Baso % (Auto) 1.4 H Absolute Neuts (auto) 2.8 Absolute Lymphs (auto) 2.36 Nucleated RBC % 0 PT 21.6 H INR 1.8 Sodium 138 Potassium 3.5 Chloride 104 Carbon Dioxide 24.8 Anion Gap 10 BUN 15 Creatinine 0.70 Estim Creat Clear Calc 102.38 Est GFR (MDRD) Non-Af 109 BUN/Creatinine Ratio 21.5 H Glucose 110 H Calcium 8.9 Total Bilirubin 0.63 AST 23 ALT 14 Alkaline Phosphatase 53 Total Protein 6.7 Albumin 4.1 Globulin 2.6 Albumin/Globulin Ratio 1.6 Lipase 47 Urine Color Yellow Urine Clarity Sl. Cloudy Urine pH 5.0 Ur Specific [place] 1.030 Urine Protein 30 H Urine Glucose (UA) Normal Urine Ketones 15 H Urine Occult Blood 10 H Urine Nitrite Negative Urine Bilirubin Negative Urine Urobilinogen 1 H Ur Leukocyte Esterase 25 H Urine RBC 0-5 SEEN Urine WBC 0-5 SEEN Ur Squamous Epith Cells 5-10 SEEN Urine Bacteria 1+ Urine Mucus 0 SEEN Discharge Plan Triage Chief Complaint: Nausea/Vomiting ED Provider: Conor Jones Dx/Rx/DC Orders Clinical Impression: Coffee ground emesis, Anticoagulant long-term use Instructions: ED Upper GI Bleeding (Stable), ED Vomiting (Adult) Prescriptions: No Action metoprolol tartrate 25 MG tablet 37.5 mg PO BID sotalol 120 mg Tablet 120 mg PO BID multivitamin with iron Tablet 1 tab PO DAILY warfarin [Jantoven] 2.5 mg tablet 5 mg PO MOWETHSA warfarin 5 mg tablet 2.5 mg PO SUTUFR Patient Comments: Take 1 tablet by mouth once daily. Or as directed by anticoagulation clinic. doxycycline hyclate 100 mg tablet 50 mg PO BID ondansetron 4 mg tablet,disintegrating 4 mg PO Q8H PRN PRN (Reason: Nausea) Qty: 10 0RF metoclopramide HCl 10 mg tablet 10 mg PO 4X/DAY PRN (Reason: Headache) Qty: 20 0RF lansoprazole [Prevacid] 30 mg capsule,delayed release(DR/EC) 30 mg PO DAILY Qty: 14 0RF Primary Care Provider: Yissel Marcial Referrals: Yissel Marcial, [employer] [Primary Care Provider, Family Practice] - 2 Days Activity Restrictions/Additional Instructions: Return to the emergency department with vomiting of bright red blood, increased vomiting even on antiemetics, new or worsening symptoms. Follow-up with your primary care provider. Print Language: [place] Disposition Disposition: Home, Self Care Discharge Date/Time: 09/02/25 15:31
[2025-09-02 14:15] LABS: Prothrombin Time (Protime)PT. 21.6 SECONDS (11.7-14.9)
[2025-09-02 14:26] LABS: AST(SGOT) 23 U/L (<=31); Alanine Aminotransfer ALT/SGPT 14 U/L (<=34); Albumin, Serum 4.1 g/dL (3.5-5.0); Alkaline Phosphatase 53 U/L (35-104); Anion Gap 10 (5-15); BUN 15 mg/dL (4-19); BUN/Creat Ratio 21.5 RATIO (10-20); Calcium,Total 8.9 mg/dL (7.6-11.0); Carbon Dioxide 24.8 mmol/L (21.0-32.0); Chloride 104 mmol/L (98-108); Estimated Creatinine Clearance 102.38 ml/min (50-250); Globulin 2.6 g/dL (2.2-4.2); Glucose 110 mg/dL (70-99); Lipase 47 U/L (13-75); Potassium 3.5 mmol/L (3.3-5.1)
[2025-09-02 14:33] LABS: Mucous, Urine 0 SEEN /hpf (<or=2+)
[2025-09-02 14:36] LABS: Color, Urine Yellow (Yellow); Glucose, Dipstick Normal (Normal); Ketone-Dipstick 15 mg/dl (Negative); Leukocyte Esterase-Dipstick 25 /ul (Negative); Nitrite-Dipstick Negative (Negative); Occult Blood-Urine 10 /ul (Negative); Protein-Dipstick 30 mg/dl (Negative); Specific Gravity, Urine 1.030 (1.002-1.030); Urine Bilirubin Dipstick Negative (Negative)
[2025-09-02 14:48] LABS: Red Blood Cells-Urine 0-5 SEEN /hpf (0-5); Squamous Epithelial Cells - UA 5-10 SEEN /hpf (5-10)
[2025-09-02 14:49] VITALS: BP 130/64; PULSE 44; RESP 16; O2SAT 100
[2025-09-02 15:24] VITALS: BP 103/56; PULSE 49; RESP 16; TEMP 36.6; O2SAT 100
== END 2025-09-02 15:31 | disposition home or self-care (01) ==
PROVIDERS: Emergency Provider Emergency Medicine; PCP Clinical Nurse Specialist Adult Health; Visit Provider Emergency Medicine
DX: R11.2 Nausea with vomiting, unspecified (principal); I42.1 Obstructive hypertrophic cardiomyopathy; Z79.01 Long term (current) use of 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; Z98.84 Bariatric surgery status
CPT/HCPCS: 80053; 81001; 83690; 85025; 85610; 99283; A4216